=== PATIENT | male | born 1985 | race Two or more races ===

== ENCOUNTER 2020-08-26 18:27 | Emergency (ER) | payer OTHER, SELFPAY ==
--- NOTE | ~2020-08-26 | CT_ITS ---
EXAMINATION: CT HEAD WITHOUT CONTRAST (STROKE PROTOCOL) CLINICAL INFORMATION: Stroke protocol. Right-sided weakness COMPARISON: None TECHNIQUE: Contiguous axial imaging was performed from the skull base to vertex without intravenous administration of contrast. This CT examination was performed using dose optimization techniques as appropriate, variously including the following: *Automated exposure control *Adjustment of mA and/or kV according to patient size (this includes techniques or standardized protocols for targeted exams where dose is matched to indication/reason for exam; i.e. extremities or head) *Use of iterative reconstruction technique DLP: 696 mGy-cm FINDINGS: There is no intracranial hemorrhage, hematoma, or extra-axial fluid collection. The ventricles are normal in size. There is no hydrocephalus, edema, or mass effect. The palencia-white matter differentiation appears symmetric. There is no acute infarct or mass lesion. It would be difficult to rule out a small area of decreased attenuation left frontal white matter but there is preservation of the overlying palencia matter The calvarium appears intact. There is no pneumocephalus or orbital emphysema. The visualized sinuses and middle ears and mastoid air cells show no significant mucosal thickening. There are no air-fluid levels. CT/CT head for stroke IMPRESSION: Possible area of decreased attenuation left frontal white matter but there is preservation of the adjacent palencia matter. No midline shift, mass effect or hemorrhage. This critical result was discussed with Dr. Jones at 6:46 PM hours on 08/26/2020. It was ascertained that the content and urgency of the report was understood at the time of direct communication.
--- NOTE | ~2020-08-26 | CT_ITS ---
CT ANGIOGRAM NECK WITH CONTRAST CT ANGIOGRAM BRAIN WITH CONTRAST CLINICAL INFORMATION: Question large vessel occlusion. COMPARISON: Head CT performed earlier the same day. TECHNIQUE: Test bolus sequences followed by intravenous administration 70 mL of Omnipaque 350. Helical imaging was performed in the axial plane from the thoracic inlet to the skull vertex. Delayed postcontrast imaging of the head was also performed. The data was processed at the production technologist workstation for generation of MIP sequences. Angled MIPs and volume rendered reformatted images were also generated at an offline 3D workstation under concurrent supervision. Stenoses are assessed in accordance with NASCET criteria unless otherwise indicated. This CT examination was performed using dose optimization techniques as appropriate, variously including the following: *Automated exposure control *Adjustment of mA and/or kV according to patient size (this includes techniques or standardized protocols for targeted exams where dose is matched to indication/reason for exam; i.e. extremities or head) *Use of iterative reconstruction technique FINDINGS: BRAIN: [There is no intracranial hemorrhage, hydrocephalus, extra-axial surface collection, midline shift, or other herniation pattern. Sutton to white matter differentiation is diffusely maintained without evidence of an evolved acute territorial infarct. The basilar cisterns are preserved. No significant soft tissue abnormality. No acute osseous abnormality. The paranasal sinuses and the mastoid air cells are well aerated.] CERVICAL SOFT TISSUES AND LUNG APICES: No significant soft tissue findings within the neck. Imaged upper lungs are clear. Mild cervical spondylosis. CTA: The left common carotid artery arises from the brachiocephalic artery. There is eccentric adherent thrombus or plaque within the aortic arch partially extending into the left common carotid artery origin. The vertebral arteries are codominant and widely patent throughout their cervical course. Intradural vertebral arteries and basilar artery are widely patent. 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 Left internal carotid artery is patent and its origin and exhibits decreased opacification along its mid to distal course, nearly occluding at the skull base insertion and fully occluding at the level of the left cavernous ICA segment. Thrombus extends from the left ICA terminus into and occludes the left M1 MCA segment with associated severe oligemia throughout the left MCA territory and partially occludes the left A1 KRISTAL segment which reconstitutes at the level of the anterior communicating artery. CT/CT angio head neck stroke IMPRESSION: - There is progressively decreased flow along the course of the left cervical internal carotid artery which nearly occludes at the skull base insertion and completely occludes at and beyond the left cavernous ICA segment intracranially with thrombus extending from the left ICA terminus into the occluded left M1 middle cerebral artery segment with associated severe oligemia throughout the entire left MCA territory. Thrombus also extends into the proximal left A1 KRISTAL segment with the left anterior cerebral artery reconstituting by the contralateral KRISTAL via the anterior communicating artery. An underlying dissection is not excluded. - No completed infarct is identified on the noncontrast CT however there is a large ischemic penumbra throughout nearly the entire left MCA territory seen on the arterial bolus phase series from the CTA. Neuro interventional consultation is advised. - There is eccentric adherent thrombus or plaque within the aortic arch partially extending into the left common carotid artery origin.
--- NOTE | 2020-08-26 18:31 | ECG_ITS ---
Test Reason : STROKE Blood Pressure : / mmHG Vent. Rate : 042 BPM Atrial Rate : 042 BPM P-R Int : 158 ms QRS Dur : 098 ms QT Int : 482 ms P-R-T Axes : 041 -18 003 degrees QTc Int : 402 ms Marked sinus bradycardia with sinus arrhythmia Incomplete right bundle branch block Minimal voltage criteria for LVH, may be normal variant Abnormal ECG No previous ECGs available Referred By: Yordy Jones Electronically Signed By:Paco Rascon
[2020-08-26 18:34] LABS: Glucose, Whole Blood 113 mg/dL (60-115)
--- NOTE | 2020-08-26 18:47 | ED_ITS ---
HPI - Neuro Symptoms/Deficit General Chief Complaint: Stroke Stated Complaint: stroke Time Seen by Provider: 08/26/20 18:30 Source: family and EMS Mode of arrival: EMS History of Present Illness HPI Narrative: Patient with hx of percocet abuse was doing well all day today, at around 17:45 all of a sudden noticed right-sided weakness unable to ambulate and speak. Patient did have some headache 3 days ago and nausea , vomiting that time no head injury per EMS patient vomited in the ER once Time: 17:45 Timing confirmed by: family member Location: speech, right face, right arm and right leg History of same: No Severity: severe Related Data Allergies Allergy/AdvReac Type Severity Reaction Status Date / Time No Known Allergies Allergy Unverified 01/28/20 16:49 Review of Systems Review of Systems: Yes Unobtainable due to mental status PMFSH Past Medical History Medical History (Updated 08/26/20 @ 19:13 by Yordy Jones MD) Opiate abuse, continuous Social History Social History Advance Directives: No Advance Directives Information Provided: Yes Physical Exam Vital Signs: Vital Signs: Last Vital Signs Temp 98.3 F 08/26/20 19:00 Pulse 44 L 08/26/20 19:00 Resp 14 08/26/20 19:00 BP 185/77 H 08/26/20 19:00 Pulse Ox 99 08/26/20 19:00 Body Mass Index 31.1 Const: General: no acute distress, well developed and lethargic Nutritional Appearance: average body habitus and well nourished Orientation/consciousness: oriented to person and lethargic HENMT: Head: Yes No palpable skull fracture present, Yes normocephalic and Yes atraumatic Ears: hearing grossly normal bilaterally Face and sinus: Yes normal facial exam Mouth: Normal oral and palatal mucosa present Eyes: General: appearance normal, both eyes and all related structures Conjunctivae: conjunctivae normal Sclerae: sclerae normal Pupils: Equal, round and reactive pupils present Neck: Neck: Yes normal visual inspection, Yes full ROM, Yes no lymphadenopathy, Yes no meningeal signs, Yes trachea midline and No midline deformity Carotids: no bruits Resp: Effort & Inspection: normal respiratory effort Auscultation: clear to auscultation bilaterally Cardio: Jugular venous distension: no JVD Palpation: normal PMI Rate: bradycardic Rhythm: regular rhythm Heart sounds: S1 normal heart sound present and S2 normal heart sound present Peripheral pulses: Peripheral pulses 2+ throughout GI: Inspection: Yes normal to inspection Auscultation: normal bowel sounds Back/Spine/Pelvis: Thoracic/Lumbar Spine: thoracic and lumbar spine normal to inspection Skin: General skin exam: no rashes or lesions noted Neuro: General: oriented to person and no meningeal signs Cranial nerves: Yes Equal, round and reactive pupils present Motor exam (neuro): Abnormal m otor strength present (r side) and Pronator motor function present (r side 0/5) MDM - Neuro Symptoms/Deficit MDM Narrative Medical decision making narrative: Patient with acute CVAs onset 17:45 with dense hemiparesis on the right side [place] CT scan is negative CTA of the head and neck showed blockage from upper end of left ICA all the way to left MCA and KRISTAL origin no blood flow on the left side patient started on tPA at 1851 case discussed with at [facility] neurointerventional a ccept the patient for transfer Medical Records Attestation: I reviewed the patient's medical records. Lab Data Attestation: I reviewed the patient's lab results. Result diagrams: 08/26/20 18:51 08/26/20 18:51 Labs: Lab Results 08/26/20 08/26/20 08/26/20 Range/Units 18:30 18:51 18:51 WBC 16.7 H (4.8-10.8) X10*3/uL RBC 4.03 L (4.60-5.80) X10*6/uL Hgb 12.6 L (14.0-18.0) g/dl Hct 38.4 L (42-52) % MCV 95.3 (80-98) fL MCH 31.3 (27.0-33.0) pg MCHC 32.8 (31.0-36.0) g/dl RDW 14.0 (11.0-16.0) % Plt Count 419 H (160-400) X10*3/uL MPV 8.9 L (9.4-12.4) fL Immature Gran % (Auto) 0.5 H (0.0-0.4) % Neut % (Auto) 70.8 (45-73) % Lymph % (Auto) 20.3 (20-40) % [place] % (Auto) 8.1 (2-11) % Eos % (Auto) 0.1 (0-4) % Baso % (Auto) 0.2 (0-2) % Lymph # (Auto) 3.4 (1.2-4.9) X10*3/uL [place] # (Auto) 1.4 H (0.1-1.2) X10*3/uL Eos # (Auto) 0.0 (0.0-0.4) X10*3/uL Baso # (Auto) 0.0 (0.0-0.2) X10*3/uL Abs Immat Gran (auto) 0.09 H (0.00-0.03) X10*3/uL Absolute Neuts (auto) 11.9 H (2.0-8.3) X10*3/uL Absolute Nucleated RBC 0.000 (0.0-0.012) X10*3/uL Nucleated RBC % (auto) 0.0 (0.0-0.2) /100WBC PT 14.2 H (10.8-13.0) SEC Whole Blood PT (11.1-13.5) sec INR 1.2 H (0.9-1.1) Whole Blood INR (0.9-1.1) APTT 26.4 (24.1-38.0) SEC Sodium (135-145) mmol/L Potassium (3.3-5.1) mmol/L Chloride (96-108) mmol/L Carbon Dioxide (22-29) mmol/L Anion Gap (12-20) BUN (9-16) mg/dL Creatinine (0.5-1.4) mg/dL Estim Creat Clear Calc Estimated GFR POC Glucose 113 (60-115) mg/dL Random Glucose (60-115) mg/dL Calcium (8.4-10.2) mg/dL Total Creatine Kinase (38-174) U/L Troponin I High Sens (<3.5-35.0) ng/L COVID-19 (EVA) (Negative) COVID-19 Clin Com 08/26/20 08/26/20 08/26/20 Range/Units 18:51 18:51 19:09 WBC (4.8-10.8) X10*3/uL RBC (4.60-5.80) X10*6/uL Hgb (14.0-18.0) g/dl Hct (42-52) % MCV (80-98) fL MCH (27.0-33.0) pg MCHC (31.0-36.0) g/dl RDW (11.0-16.0) % Plt Count (160-400) X10*3/uL MPV (9.4-12.4) fL Immature Gran % (Auto) (0.0-0.4) % Neut % (Auto) (45-73) % Lymph % (Auto) (20-40) % [place] % (Auto) (2-11) % Eos % (Auto) (0-4) % Baso % (Auto) (0-2) % Lymph # (Auto) (1.2-4.9) X10*3/uL [place] # (Auto) (0.1-1.2) X10*3/uL Eos # (Auto) (0.0-0.4) X10*3/uL Baso # (Auto) (0.0-0.2) X10*3/uL Abs Immat Gran (auto) (0.00-0.03) X10*3/uL Absolute Neuts (auto) (2.0-8.3) X10*3/uL Absolute Nucleated RBC (0.0-0.012) X10*3/uL Nucleated RBC % (auto) (0.0-0.2) /100WBC PT (10.8-13.0) SEC Whole Blood PT 12.9 (11.1-13.5) sec INR (0.9-1.1) Whole Blood INR 1.1 (0.9-1.1) APTT (24.1-38.0) SEC Sodium 141 (135-145) mmol/L Potassium 4.0 (3.3-5.1) mmol/L Chloride 104 (96-108) mmol/L Carbon Dioxide 25 (22-29) mmol/L Anion Gap 16 (12-20) BUN 16 (9-16) mg/dL Creatinine 0.96 (0.5-1.4) mg/dL Estim Creat Clear Calc 135.1 Estimated GFR > 60 POC Glucose (60-115) mg/dL Random Glucose 116 H (60-115) mg/dL Calcium 9.0 (8.4-10.2) mg/dL Total Creatine Kinase 343 H (38-174) U/L Troponin I High Sens 5.9 (<3.5-35.0) ng/L COVID-19 (EVA) (Negative) COVID-19 Clin Com 08/26/20 Range/Units 19:12 WBC (4.8-10.8) X10*3/uL RBC (4.60-5.80) X10*6/uL Hgb (14.0-18.0) g/dl Hct (42-52) % MCV (80-98) fL MCH (27.0-33.0) pg MCHC (31.0-36.0) g/dl RDW (11.0-16.0) % Plt Count (160-400) X10*3/uL MPV (9.4-12.4) fL Immature Gran % (Auto) (0.0-0.4) % Neut % (Auto) (45-73) % Lymph % (Auto) (20-40) % [place] % (Auto) (2-11) % Eos % (Auto) (0-4) % Baso % (Auto) (0-2) % Lymph # (Auto) (1.2-4.9) X10*3/uL [place] # (Auto) (0.1-1.2) X10*3/uL Eos # (Auto) (0.0-0.4) X10*3/uL Baso # (Auto) (0.0-0.2) X10*3/uL Abs Immat Gran (auto) (0.00-0.03) X10*3/uL Absolute Neuts (auto) (2.0-8.3) X10*3/uL Absolute Nucleated RBC (0.0-0.012) X10*3/uL Nucleated RBC % (auto) (0.0-0.2) /100WBC PT (10.8-13.0) SEC Whole Blood PT (11.1-13.5) sec INR (0.9-1.1) Whole Blood INR (0.9-1.1) APTT (24.1-38.0) SEC Sodium (135-145) mmol/L Potassium (3.3-5.1) mmol/L Chloride (96-108) mmol/L Carbon Dioxide (22-29) mmol/L Anion Gap (12-20) BUN (9-16) mg/dL Creatinine (0.5-1.4) mg/dL Estim Creat Clear Calc Estimated GFR POC Glucose (60-115) mg/dL Random Glucose (60-115) mg/dL Calcium (8.4-10.2) mg/dL Total Creatine Kinase (38-174) U/L Troponin I High Sens (<3.5-35.0) ng/L COVID-19 (EVA) Negative (Negative) COVID-19 Clin Com See Note Imaging Data CT scan - head: Attestation: I personally reviewed and interpreted this imaging study as follows: Radiologist's impression: atient: Tita Guzmán#: [id number]: 1985Acct:[id number]/Sex: 35 / MADM Date: 08/26/20Loc: EDAttending Dr: Ordering Physician: Yordy Jones MD Date of Service: 08/26/20 Procedure(s): CT head for stroke Accession Number(s): [id number] cc: Yordy Jones MD~ EXAMINATION: CT HEAD WITHOUT CONTRAST (STROKE PROTOCOL) CLINICAL INFORMATION: Stroke protocol. Right-sided weakness COMPARISON: None TECHNIQUE: Contiguous axial imaging was performed from the skull base to vertex without intravenous administration of contrast. This CT examination was performed using dose optimization techniques as appropriate, variously including the following: *Automated exposure control *Adjustment of mA and/or kV according to patient size (this includes techniques or standardized protocols for targeted exams where dose is matched to indication/reason for exam; i.e. extremities or head) *Use of iterative reconstruction technique DLP: 696 mGy-cm FINDINGS: There is no intracranial hemorrhage, hematoma, or extra-axial fluid collection. The ventricles are normal in size. There is no hydrocephalus, edema, or mass effect. The sutton-white matter differentiation appears symmetric. There is no acute infarct or mass lesion. It would be difficult to rule out a small area of decreased attenuation left frontal white matter but there is preservation of the overlying sutton matter The calvarium appears intact. There is no pneumocephalus or orbital emphysema. The visualized sinuses and middle ears and mastoid air cells show no significant mucosal thickening. There are no air-fluid levels. CT/CT head for stroke IMPRESSION: Possible area of decreased attenuation left frontal white matter but there is preservation of the adjacent sutton matter. No midline shift, mass effect or hemorrhage. This critical result was discussed with Dr. Jones at 6:46 PM hours on 08/26/2020. It was ascertained that the content and urgency of the report was understood at the time of direct communication. [address] [id number] Scan ReportSigned Patient: Tita Guzmán#: [id number]: 1985Acct:[id number]/Sex: 35 / MADM Date: 08/26/20Loc: GREGG.EDAttending Dr: Ordering Physician: Yordy Jones MD Date of Service: 08/26/20 Procedure(s): CT angio head neck stroke Accession Number(s): [id number] cc: Yordy Jones MD~ CT ANGIOGRAM NECK WITH CONTRAST CT ANGIOGRAM BRAIN WITH CONTRAST CLINICAL INFORMATION: Question large vessel occlusion. COMPARISON: Head CT performed earlier the same day. TECHNIQUE: Test bolus sequences followed by intravenous administration 70 mL of Omnipaque 350. Helical imaging was performed in the axial plane from the thoracic inlet to the skull vertex. Delayed postcontrast imaging of the head was also performed. The data was processed at the generation technologist workstation for generation of MIP sequences. Angled MIPs and volume rendered reformatted images were also generated at an offline 3D workstation under concurrent supervision. Stenoses are assessed in accordance with NASCET criteria unless otherwise indicated. This CT examination was performed using dose optimization techniques as appropriate, variously including the following: *Automated exposure control *Adjustment of mA and/or kV according to patient size (this includes techniques or standardized protocols for targeted exams where dose is matched to indication/reason for exam; i.e. extremities or head) *Use of iterative reconstruction technique FINDINGS: BRAIN: [There is no intracranial hemorrhage, hydrocephalus, extra-axial surface collection, midline shift, or other herniation pattern. Sutton to white matter differentiation is diffusely maintained without evidence of an evolved acute territorial infarct. The basilar cisterns are preserved. No significant soft tissue abnormality. No acute osseous abnormality. The paranasal sinuses and the mastoid air cells are well aerated.] CERVICAL SOFT TISSUES AND LUNG APICES: No significant soft tissue findings within the neck. Imaged upper lungs are clear. Mild cervical spondylosis. CTA: The left common carotid artery arises from the brachiocephalic artery. There is eccentric adherent thrombus or plaque within the aortic arch partially extending into the left common carotid artery origin. The vertebral arteries are codominant and widely patent throughout their cervical course. Intradural vertebral arteries and basilar artery are widely patent. 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 Left internal carotid artery is patent and its origin and exhibits decreased opacification along its mid to distal course, nearly occluding at the skull base insertion and fully occluding at the level of the left cavernous ICA segment. Thrombus extends from the left ICA terminus into and occludes the left M1 MCA segment with associated severe oligemia throughout the left MCA territory and partially occludes the left A1 KRISTAL segment which reconstitutes at the level of the anterior communicating artery. CT/CT angio head neck stroke IMPRESSION: - There is progressively decreased flow along the course of the left cervical internal carotid artery which nearly occludes at the skull base insertion and completely occludes at and beyond the left cavernous ICA segment intracranially with thrombus extending from the left ICA terminus into the occluded left M1 middle cerebral artery segment with associated severe oligemia throughout the entire left MCA territory. Thrombus also extends into the proximal left A1 KRISTAL segment with the left anterior cerebral artery reconstituting by the contralateral KRISTAL via the anterior communicating artery. An underlying dissection is not excluded. - No completed infarct is identified on the noncontrast CT however there is a large ischemic penumbra throughout nearly the entire left MCA territory seen on the arterial bolus phase series from the CTA. Neuro interventional consultation is advised. - There is eccentric adherent thrombus or plaque within the aortic arch partially extending into the left common carotid artery origin. Dictated By:LEO BARRERA MDSigned By:<Electronically signed by LEO BARRERA MD in OV> ECG Data Attestation: I personally reviewed and interpreted this ECG as follows: Interpretation: Sinus bradycardia heart rate 41 beats per minute incomplete right bundle-branch block no acute ST T wave changes no acute ischemia NIH Stroke Scale Internal: Initial- Upon Arrival Level of Consciousness: Not Alert; but arousable by minor stimulation Best Gaze: Normal Visual: No visual loss Facial Palsy: Partial paralysis Motor Arm (Right): No effort against gravity Motor Arm (Left): No drift Motor Leg (Right): No effort against gravity Motor Leg (Left): No drift Limb Ataxia: Absent Sensory: Normal Best Language: Severe aphasia Dysarthia: Severe dysarthria Extinction and Inattention: No abnormality Discharge Plan Discharge Clinical Impression: Cerebrovascular accident Qualifiers: CVA mechanism: thrombosis Precerebral and cerebral artery: middle cerebral artery Laterality of affected vessel: left Qualified Code(s): I63.312 - Cerebral infarction due to thrombosis of left middle cerebral artery Patient Disposition: Xfer Acute Care Hospital Transfer Details: [facility] ED Interventions: Acute Care Transfer Worksheet (ED) Last Done: 08/26/20 19:25 Discharge Date/Time: 08/26/20 19:12
[2020-08-26] MEDS: ondansetron HCL 4 MG/2 ML VIAL IVPUSH (18:58)
[2020-08-26 19:00] VITALS: BP 185/77; PULSE 44; RESP 14; TEMP 36.8; O2SAT 99; BMI 31.1
[2020-08-26 19:00] LABS: MANUAL DIFF FLAG NO
[2020-08-26 19:01] LABS: Basophils Percent Auto 0.2 % (0-2); Eosinophils Percent Auto 0.1 % (0-4); Hematocrit 38.4 % (42-52); Hemoglobin 12.6 g/dl (14.0-18.0); Imm Gran Abs Auto 0.09 X10*3/uL (0.00-0.03); Imm Gran Pct Auto 0.5 % (0.0-0.4); Lymphocytes Absolute Auto 3.4 X10*3/uL (1.2-4.9); Lymphocytes Percent Auto 20.3 % (20-40); Mean Corpuscular HGB Conc 32.8 g/dl (31.0-36.0); Mean Corpuscular Hemoglobin 31.3 pg (27.0-33.0); Mean Corpuscular Volume 95.3 fL (80-98); Mean Platelet Volume 8.9 fL (9.4-12.4); Monocytes Absolute Auto 1.4 X10*3/uL (0.1-1.2); Monocytes Percent Auto 8.1 % (2-11); Neutrophils Absolute Auto 11.9 X10*3/uL (2.0-8.3); Neutrophils Percent Auto 70.8 % (45-73); Platelet Count 419 X10*3/uL (160-400); Red Blood Count 4.03 X10*6/uL (4.60-5.80); White Blood Count 16.7 X10*3/uL (4.8-10.8)
[2020-08-26 19:04] LABS: INTERNATIONAL NORM RATIO 1.2 (0.9-1.1); Prothrombin Time 14.2 SEC (10.8-13.0)
--- NOTE | 2020-08-26 19:05 | PC.NURSE ---
Per EMS discrepancy in pulses and BP from arm to arm. BP readings at this time Left arm:167/71 Right arm:185/77
[2020-08-26 19:07] LABS: Partial Thromboplastin Time 26.4 SEC (24.1-38.0)
[2020-08-26 19:08] LABS: Stroke Lab Use COMPLETE
[2020-08-26 19:11] LABS: Prothrombin Time Whole Bld POC 12.9 sec (11.1-13.5); ~PT, ~INR - Anti Coag Clinic 1.1 (0.9-1.1)
--- NOTE | 2020-08-26 19:26 | PC.NURSE ---
Report given to [facility] RN
[2020-08-26 19:31] LABS: Troponin-I High Sensitivity 5.9 ng/L (<3.5-35.0)
[2020-08-26 19:32] LABS: Anion Gap 16 (12-20); Blood Urea Nitrogen 16 mg/dL (9-16); Carbon Dioxide 25 mmol/L (22-29); Chloride 104 mmol/L (96-108); Creatinine Clr Calc Pharmacy 135.1; Estimated Glomerular Filt Rate > 60; Glucose Random 116 mg/dL (60-115); Sodium 141 mmol/L (135-145)
[2020-08-26 19:38] LABS: COVID-19 Test Negative (Negative)
--- NOTE | 2020-08-26 19:55 | MHC.STROKE ---
EMS PRE-NOTIFIED 1822 STROKE ALERT , ARRIVED 1826 SEEN BY MD AND DIRECT TO CT FOR CT HEAD AND CTA HEAD/NECK. NIHSS = 19. RIGHT HEMIPARESIS, LOC, APHASIA, DYSPHASIA. OBTAINED FROM MD ASSESSMENT, CTA WITH LEFT MCA OCCLUSION (SEE INTERPRETATION), CANDIDATE FOR TPA (ALTEPLASE). ALTEPLASE BOLUS GIVEN AT 1850 [id number] = 24 MINUTES. ACCEPTED IN TRANSFER BY [facility] BY NEURO-INTERVENTIONALIST DR KESSLER. DISCHARGE AT 1911 [id number] = 45 MINUTES.
== END 2020-08-26 19:12 | disposition short-term general hospital (02) ==
PROVIDERS: Emergency Provider Internal Medicine
DX: I63.312 Cerebral infarction due to thrombosis of left middle cerebral artery (principal); I69.392 Facial weakness following cerebral infarction; F11.10 Opioid abuse, uncomplicated; Z20.822 Contact with and (suspected) exposure to COVID-19
CPT/HCPCS: 36415; 37212; 70450; 70496; 70498; 80048; 82550; 82947; 84484; 85025; 85610; 85730; 87635; 93005; 96365; 96375; 99285; J2405; J2997

== ENCOUNTER 2020-10-06 08:21 | Emergency (ER) | payer OTHER, SELFPAY ==
--- NOTE | ~2020-10-06 | CT_ITS ---
EXAMINATION: CT PELVIS WITH CONTRAST CLINICAL INFORMATION: Right buttock abscess COMPARISON: None TECHNIQUE: Helical scanning was performed with submillimeter collimation through the pelvis with the use of oral contrast and during bolus intravenous injection of 100 mL of Omnipaque 350 intravenous contrast. Sagittal and coronal multiplanar 2-D reconstructions were obtained. This CT examination was performed using dose optimization techniques as appropriate, variously including the following: *Automated exposure control *Adjustment of mA and/or kV according to patient size (this includes techniques or standardized protocols for targeted exams where dose is matched to indication/reason for exam; i.e. extremities or head) *Use of iterative reconstruction technique DLP: 384 mGy-cm FINDINGS: PELVIS: There is a large right buttock fluid collection with minimal air measuring 20 cm in craniocaudad length, 1.9 cm in thickness and 13 cm wide. Similar smaller fluid collection in the left buttock subcutaneous soft tissues measures 7.4 cm wide, 13.4 cm in craniocaudad length and 1.1 cm in thickness. The urinary bladder is nondistended. There is scattered stool seen in the colon without any significant distention. The appendix is normal caliber. There is no free fluid. No abnormal inguinal or pelvic lymph nodes seen. OSSEOUS STRUCTURES: No lytic or sclerotic process seen. There is a solitary screw traversing left hip neck for an old healed fracture. CT/CT pelvis w con IMPRESSION: Bilateral superficial buttock collections greater on the right than the left. There is minimal gas collection seen in the right buttock likely abscess. There is a smaller abscess in the left buttock.
[2020-10-06 08:33] VITALS: BP 140/85; PULSE 78; O2SAT 98; BMI 28.0
--- NOTE | 2020-10-06 08:35 | ED_ITS ---
HPI - Skin/Abscess/Foreign Bdy General Chief complaint: Fever Stated complaint: DIFF AMB FROM [facility]SCESS Time Seen by Provider: 10/06/20 08:24 Source: patient, family and EMS Mode of arrival: EMS Limitations: no limitations History of Present Illness HPI narrative: 35 yo male with past medical history of CVA with right sided weakness/aphasia on eliquis here with complaints of acute on chronic abscess to buttocks. Worsening in the last week now with subjective fevers/chills Patient is a he was admitted in August for 2 weeks at [facility] for his stroke and then spent 2 weeks of a [facility]. While he was there he was seen by wound care and had several abscesses drained with packing present. Since being home his girlfriend has been taking care of his wounds. He does have a home care nurse who is coming in Saturday to the home MD complaint: abscess/boil Related Data Previous Rx's Medication Instructions Recorded chlorhexidine gluconate [Scrub See Rx Instructions .ROUTE 10/06/20 Chlorhexidine Gluconate] .COMPLEX #237 ml doxycycline monohydrate 100 mg PO BID #20 cap 10/06/20 Allergies Allergy/AdvReac Type Severity Reaction Status Date / Time No Known Allergies Allergy Unverified 01/28/20 16:49 Review of Systems Review of Systems: Yes all other systems are reviewed and are negative Constitutional: Constitutional: Reports no additional constitutional complaints, Denies body ache(s), Denies chills, Denies fever(s), Denies headache(s) and Denies weakness Eyes: Eyes: Reports no additional eye complaints and Denies change in vision ENT: Reports system reviewed and no additional complaints, except as d ocumented, Denies dizziness, Denies headache(s), Denies nasal congestion, Denies nasal discharge and Denies neck pain Cardiovascular: Cardiovascular: Reports no additional cardiovascular complaints, Denies chest pain, Denies leg edema and Denies dyspnea Respiratory: Respiratory: Reports no additional respiratory complaints, Denies cough and Denies dyspnea Gastrointestinal: Gastrointestinal: Reports no additional gastrointestinal complaints, Denies abdominal pain, Denies diarrhea, Denies nausea and Denies vomiting Genitourinary: Genitourinary: Denies urinary incontinence Musculoskeletal: Musculoskeletal: Reports no additional musculoskeletal complaints, Denies back pain, Denies arthralgias, Denies joint swelling, Denies neck pain, Denies numbness and Denies tingling Integumentary/Breasts: Skin/Breast: Reports system reviewed and no additional complaints, except as docu, Reports furuncle, Reports swelling, Reports erythema and Denies rash Neurologic: Reports system reviewed and no additional complaints, except as documented, Denies Abnormal speech present, Denies dizziness, Denies headache(s), Denies numbness, Denies tingling and Denies weakness [facility] Past Medical History Attestation statement: The following information was validated with the patient. Source: old records reviewed Medical History (Updated 10/06/20 @ 13:17 by Maylin Osman NP) CVA (cerebral vascular accident) Opiate abuse, continuous Physical Exam Vital Signs: Vital Signs: Last Vital Signs Pulse 69 10/06/20 10:37 Resp 16 10/06/20 12:51 BP 117/78 10/06/20 11:54 Pulse Ox 99 10/06/20 10:37 Body Mass Index 28.0 Const: General: cooperative, healthy appearing, comfortable and no acute distress Orientation/consciousness: patient oriented x3 Limitations: no limitations HENMT: Head: Yes normal to inspection Ears: hearing grossly normal bilaterally General nose exam: Normal external nose present Face and sinus: Yes normal facial exam Mouth: Normal oral and palatal mucosa present Throat: Yes posterior oropharynx normal Eyes: General: appearance normal, both eyes and all related structures Pupils: Equal, round and reactive pupils present Neck: Neck: Yes normal visual inspection Chest: Chest palpation & inspection: normal inspection of the chest Resp: Effort & Inspection: normal respiratory effort Auscultation: clear to auscultation bilaterally Cardio: Rate: regular rate Rhythm: regular rhythm Peripheral pulses: Peripheral pulses 2+ throughout GI: Inspection: Yes normal to inspection Palpation (GI): Soft to palpation and nontender Auscultation: normal bowel sounds Back/Spine/Pelvis: Thoracic/Lumbar Spine: thoracic and lumbar spine normal to inspection Skin: Other: To the right buttocks there is a large area of induration, erythema, tenderness with a central area of fluctuance. There is a smaller abscess just inferior to this with packing present To the left buttocks there is a small abscess which is draining with no erythema, tenderness or swelling General skin exam: no rashes or lesions noted Neuro: General: patient oriented x3, no focal motor deficits and normal sensation to monofilament Cranial nerves: Yes Equal, round and reactive pupils present Cognition (Neuro): normal cognition Speech: No Abnormal speech present Gait exam (Neuro): Normal gait present Motor exam (neuro): 5/5 motor strength present throughout Extrem: General: Yes normal to inspection Course Course Course Narrative: 35 yo male with a past medical history of CVA right sided weakness/aphasia on eliquis her with acute on chronic buttocks wounds now with subjective fevers/chills. On exam the patient has a larger abscess over the right buttocks with indurat ion, cellulitis extending from the site with a central area of fluctuance. Will need labs including blood cultures, lactic acid. Will check CT to rule out drainable abscess. At this time infection suspected, antibiotics ordered. 1140-CT shows large right buttocks fluid collection measuring 20 centimetres. D/t extent discussed with Dr Casillas who will come see patient. 1330-see I and D note from general surgery. Will have patient follow-up in office. He has a mild leukocytosis which is actually improved from previous. No shift. Lactic negative. Will discharge home with course of antibiotics. I did offer additional resources with case management but the patient and his girlfriend declined. They tell me they have occurred nurse who is coming into the home tomorrow and they feel comfortable with him going home. Reviewed worrisome signs and symptoms with the family and when to return to the emergency department. Comfortable discharge home. MDM - Skin/Abscess/Foreign Bdy Medical Records Attestation: I reviewed the patient's medical records. Lab Data Attestation: I reviewed the patient's lab results. Result diagrams: 10/06/20 08:49 10/06/20 08:49 Labs: Lab Results 10/06/20 10/06/20 10/06/20 Range/Units 08:49 08:49 08:49 WBC 12.8 H (4.8-10.8) X10*3/uL RBC 3.80 L (4.60-5.80) X10*6/uL Hgb 11.8 L (14.0-18.0) g/dl Hct 36.4 L (42-52) % MCV 95.8 (80-98) fL MCH 31.1 (27.0-33.0) pg MCHC 32.4 (31.0-36.0) g/dl RDW 13.2 (11.0-16.0) % Plt Count 449 H (160-400) X10*3/uL MPV 8.7 L (9.4-12.4) fL Immature Gran % (Auto) 0.4 (0.0-0.4) % Neut % (Auto) 79.8 H (45-73) % Lymph % (Auto) 13.3 L (20-40) % Hood % (Auto) 5.5 (2-11) % Eos % (Auto) 0.8 (0-4) % Baso % (Auto) 0.2 (0-2) % Lymph # (Auto) 1.7 (1.2-4.9) X10*3/uL Hood # (Auto) 0.7 (0.1-1.2) X10*3/uL Eos # (Auto) 0.1 (0.0-0.4) X10*3/uL Baso # (Auto) 0.0 (0.0-0.2) X10*3/uL Abs Immat Gran (auto) 0.05 H (0.00-0.03) X10*3/uL Absolute Neuts (auto) 10.3 H (2.0-8.3) X10*3/uL Absolute Nucleated RBC 0.000 (0.0-0.012) X10*3/uL Nucleated RBC % (auto) 0.0 (0.0-0.2) /100WBC PT 14.6 H (10.8-13.0) SEC INR 1.2 H (0.9-1.1) Sodium 138 (135-145) mmol/L Potassium 4.2 (3.3-5.1) mmol/L Chloride 101 (96-108) mmol/L Carbon Dioxide 28 (22-29) mmol/L Anion Gap 13 (12-20) BUN 12 (9-16) mg/dL Creatinine 0.78 (0.5-1.4) mg/dL Estim Creat Clear Calc 177.0 Estimated GFR > 60 Random Glucose 130 H (60-115) mg/dL Lactic Acid (0.5-2.0) mmol/L Calcium 9.0 (8.4-10.2) mg/dL Magnesium 2.0 (1.6-2.6) mg/dL Total Bilirubin 0.3 (0.0-1.0) mg/dL Direct Bilirubin < 0.2 (0.0-0.5) mg/dL AST 39 H (5-37) U/L ALT 43 H (0-40) U/L Alkaline Phosphatase 114 (39-117) U/L Total Protein 7.1 (6.5-8.0) g/dL Albumin 3.3 L (3.5-5.0) g/dL 10/06/20 Range/Units 08:49 WBC (4.8-10.8) X10*3/uL RBC (4.60-5.80) X10*6/uL Hgb (14.0-18.0) g/dl Hct (42-52) % MCV (80-98) fL MCH (27.0-33.0) pg MCHC (31.0-36.0) g/dl RDW (11.0-16.0) % Plt Count (160-400) X10*3/uL MPV (9.4-12.4) fL Immature Gran % (Auto) (0.0-0.4) % Neut % (Auto) (45-73) % Lymph % (Auto) (20-40) % Hood % (Auto) (2-11) % Eos % (Auto) (0-4) % Baso % (Auto) (0-2) % Lymph # (Auto) (1.2-4.9) X10*3/uL Hood # (Auto) (0.1-1.2) X10*3/uL Eos # (Auto) (0.0-0.4) X10*3/uL Baso # (Auto) (0.0-0.2) X10*3/uL Abs Immat Gran (auto) (0.00-0.03) X10*3/uL Absolute Neuts (auto) (2.0-8.3) X10*3/uL Absolute Nucleated RBC (0.0-0.012) X10*3/uL Nucleated RBC % (auto) (0.0-0.2) /100WBC PT (10.8-13.0) SEC INR (0.9-1.1) Sodium (135-145) mmol/L Potassium (3.3-5.1) mmol/L Chloride (96-108) mmol/L Carbon Dioxide (22-29) mmol/L Anion Gap (12-20) BUN (9-16) mg/dL Creatinine (0.5-1.4) mg/dL Estim Creat Clear Calc Estimated GFR Random Glucose (60-115) mg/dL Lactic Acid 1.8 (0.5-2.0) mmol/L Calcium (8.4-10.2) mg/dL Magnesium (1.6-2.6) mg/dL Total Bilirubin (0.0-1.0) mg/dL Direct Bilirubin (0.0-0.5) mg/dL AST (5-37) U/L ALT (0-40) U/L Alkaline Phosphatase (39-117) U/L Total Protein (6.5-8.0) g/dL Albumin (3.5-5.0) g/dL Imaging Data CT scan - pelvis: Attestation: I personally reviewed and interpreted this imaging study as follows: Radiologist's impression: FINDINGS: PELVIS: There is a large right buttock fluid collection with minimal air measuring 20 cm in craniocaudad length, 1.9 cm in thickness and 13 cm wide. Similar smaller fluid collection in the left buttock subcutaneous soft tissues measures 7.4 cm wide, 13.4 cm in craniocaudad length and 1.1 cm in thickness. The urinary bladder is nondistended. There is scattered stool seen in the colon without any significant distention. The appendix is normal caliber. There is no free fluid. No abnormal inguinal or pelvic lymph nodes seen. OSSEOUS STRUCTURES: No lytic or sclerotic process seen. There is a solitary screw traversing left hip neck for an old healed fracture. CT/CT pelvis w con IMPRESSION: Bilateral superficial buttock collections greater on the right than the left. There is minimal gas collection seen in the right buttock likely abscess. There is a smaller abscess in the left buttock. Discharge Plan Discharge Clinical Impression: Abscess and cellulitis of gluteal region Patient Disposition: Home, Self-Care Instructions: Abscess (ED) Additional Instructions: Call Dr. Casillas office today to make an appointment for your packing removal and follow-up Prescriptions: New chlorhexidine gluconate [Scrub Chlorhexidine Gluconate] 4 % liquid See Rx Instructions .ROUTE .COMPLEX Qty: 237 RF: 3 doxycycline monohydrate 100 mg capsule 100 mg PO BID Qty: 20 RF: 0 Referrals: Shayan Casillas MD [Physician] - 2 days Physician,Unknown [Primary Care Provider] - 2 days Interventions: ED Discharge Assessment Last Done: 10/06/20 13:31 Discharge Date/Time: 10/06/20 13:31
[2020-10-06 08:40] VITALS: BP 131/69
[2020-10-06 08:56] LABS: MANUAL DIFF FLAG NO
[2020-10-06 08:57] LABS: Basophils Percent Auto 0.2 % (0-2); Eosinophils Absolute Auto 0.1 X10*3/uL (0.0-0.4); Eosinophils Percent Auto 0.8 % (0-4); Hematocrit 36.4 % (42-52); Hemoglobin 11.8 g/dl (14.0-18.0); Imm Gran Abs Auto 0.05 X10*3/uL (0.00-0.03); Imm Gran Pct Auto 0.4 % (0.0-0.4); Lymphocytes Absolute Auto 1.7 X10*3/uL (1.2-4.9); Lymphocytes Percent Auto 13.3 % (20-40); Mean Corpuscular HGB Conc 32.4 g/dl (31.0-36.0); Mean Corpuscular Hemoglobin 31.1 pg (27.0-33.0); Mean Corpuscular Volume 95.8 fL (80-98); Mean Platelet Volume 8.7 fL (9.4-12.4); Monocytes Absolute Auto 0.7 X10*3/uL (0.1-1.2); Monocytes Percent Auto 5.5 % (2-11); Neutrophils Absolute Auto 10.3 X10*3/uL (2.0-8.3); Neutrophils Percent Auto 79.8 % (45-73); Platelet Count 449 X10*3/uL (160-400); Red Cell Distribution Width 13.2 % (11.0-16.0); White Blood Count 12.8 X10*3/uL (4.8-10.8)
[2020-10-06] MEDS: ondansetron HCL 4 MG/2 ML VIAL IVPUSH (08:59)
[2020-10-06] MEDS: Morphine Sulfate 4 MG/ML CARTRIDGE IVPUSH ×2 (08:59→11:53)
[2020-10-06] MEDS: 0.9 % Sodium Chloride 1,000 ML 999 ML IV (09:01)
[2020-10-06 09:02] LABS: INTERNATIONAL NORM RATIO 1.2 (0.9-1.1); Prothrombin Time 14.6 SEC (10.8-13.0)
[2020-10-06 09:30] LABS: Lactic Acid 1.8 mmol/L (0.5-2.0)
[2020-10-06] MEDS: Piperacillin Sodium/Tazobactam 3.375 GM in 0.9 % Sodium Chloride 50 ML IV (09:39)
[2020-10-06 09:46] LABS: Alanine Aminotransferase 43 U/L (0-40); Albumin Level 3.3 g/dL (3.5-5.0); Alkaline Phosphatase 114 U/L (39-117); Anion Gap 13 (12-20); Aspartate Amino Transferase 39 U/L (5-37); Blood Urea Nitrogen 12 mg/dL (9-16); Carbon Dioxide 28 mmol/L (22-29); Chloride 101 mmol/L (96-108); Estimated Glomerular Filt Rate > 60; Glucose Random 130 mg/dL (60-115); Potassium 4.2 mmol/L (3.3-5.1); Sodium 138 mmol/L (135-145); Total Protein 7.1 g/dL (6.5-8.0)
[2020-10-06 09:56] LABS: Bilirubin Direct < 0.2 mg/dL (0.0-0.5); Bilirubin Total 0.3 mg/dL (0.0-1.0)
[2020-10-06] MEDS: iohexoL 350 MG/ML 100 ML INFUS..BTL IV (10:23)
[2020-10-06 10:37] VITALS: BP 127/72; PULSE 69; O2SAT 99
[2020-10-06 11:54] VITALS: BP 117/78
[2020-10-06 12:09] VITALS: RESP 16
[2020-10-06 12:51] VITALS: RESP 16
[2020-10-06] MEDS: Lidocaine HCl 2 % MPF 5 ML VIAL SUBCUT ×2 (12:52)
--- NOTE | 2020-10-06 12:55 | PM.CNGS ---
History of Present Illness Consult details Consult date: 10/06/20 Requesting physician: Maylin Osman Narrative: 35-year-old male patient with previous history of CVA, currently on Eliquis presenting with a chronic draining wound of the buttock. He has undergone numerous procedures in the buttock for incision and drainage. He was previously treated with Humira but this was stopped after his CVA. He currently presents with a large red area right posterior buttock which is extremely painful and making it difficult with transfers. Subsequent CT of the pelvis confirms a large abscess with the skin measuring approximately 20 cm. Surgical consultation was requested for possible incision and drainage. Review of Systems Constitutional: Constitutional: Denies chills, Denies night sweats and Reports weakness Respiratory: Respiratory: Reports no additional respiratory complaints Gastrointestinal: Gastrointestinal: Reports no additional gastrointestinal complaints Musculoskeletal: Musculoskeletal: Reports muscle weakness Integumentary/Breasts: Skin/Breast: Reports as per HPI Neurologic: Reports as per HPI and Reports weakness PMFSH Past Medical History Medical History (Updated 10/06/20 @ 12:54 by Shayan Casillas MD) CVA (cerebral vascular accident) Opiate abuse, continuous Social History Social History Advance Directives: Yes Advance Directives Information Provided: Yes Advance Directives on File: No Meds Allergies Allergy/AdvReac Type Severity Reaction Status Date / Time No Known Allergies Allergy Unverified 01/28/20 16:49 Physical Exam Vital Signs: Vital Signs: Last Vital Signs Pulse 69 10/06/20 10:37 Resp 16 10/06/20 12:51 BP 117/78 10/06/20 11:54 Pulse Ox 99 10/06/20 10:37 Body Mass Index 28.0 Const: General: no acute distress, alert and awake Resp: Effort & Inspection: normal respiratory effort, no audible wheezes and no cough GI: Inspection: Yes normal to inspection Back/Spine/Pelvis: Back/spine/pelvis image: 1. Area of fluctuance in the right buttock, tender to palpation Skin: Other: Abscess as noted above in the right buttock, tender to palpation Results Labs Result diagrams: 10/06/20 08:49 10/06/20 08:49 Labs: Abnormal lab results 10/06/20 10/06/20 10/06/20 Range/Units 08:49 08:49 08:49 WBC 12.8 H (4.8-10.8) X10*3/uL RBC 3.80 L (4.60-5.80) X10*6/uL Hgb 11.8 L (14.0-18.0) g/dl Hct 36.4 L (42-52) % Plt Count 449 H (160-400) X10*3/uL MPV 8.7 L (9.4-12.4) fL Neut % (Auto) 79.8 H (45-73) % Lymph % (Auto) 13.3 L (20-40) % Abs Immat Gran (auto) 0.05 H (0.00-0.03) X10*3/uL Absolute Neuts (auto) 10.3 H (2.0-8.3) X10*3/uL PT 14.6 H (10.8-13.0) SEC INR 1.2 H (0.9-1.1) Random Glucose 130 H (60-115) mg/dL AST 39 H (5-37) U/L ALT 43 H (0-40) U/L Albumin 3.3 L (3.5-5.0) g/dL Short CBC 10/06/20 Range/Units 08:49 WBC 12.8 H (4.8-10.8) X10*3/uL Hgb 11.8 L (14.0-18.0) g/dl Hct 36.4 L (42-52) % Plt Count 449 H (160-400) X10*3/uL BMP 10/06/20 08:49 Sodium 138 Potassium 4.2 Chloride 101 Carbon Dioxide 28 BUN 12 Creatinine 0.78 Calcium 9.0 Liver Function 10/06/20 Range/Units 08:49 Total Bilirubin 0.3 (0.0-1.0) mg/dL Direct Bilirubin < 0.2 (0.0-0.5) mg/dL AST 39 H (5-37) U/L ALT 43 H (0-40) U/L Alkaline Phosphatase 114 (39-117) U/L Albumin 3.3 L (3.5-5.0) g/dL All other labs normal. Assessment and Plan (1) Abscess and cellulitis of gluteal region: Status: Acute 35-year-old male patient presenting with an abscess of the right buttock and a previous history of chronic infections of the skin especially in the buttocks. Patient is currently being followed by the object oriented developer for this condition. Evaluation today reveals a large abscess of the right buttock which was confirmed on CT. Patient will require incision and drainage of this abscess. After discussion of the procedure, risks, and alternatives, he consents to incision and drainage. This was performed at the bedside today and a large abscess drained. The patient tolerated the procedure very well. Wounds were packed with 1/2 inch iodoform gauze. Sterile dressings were then applied. The packing should be removed in approximately 48 to 72 hours. He may shower as usual. He should follow up in the office in approximately 1 week for wound check. Procedures Date of Service Date of Service: 10/06/20 Abscess I/D Consent for Procedure: Elective - informed consent obtained Additional comments: Procedure: Incision and drainage of abscess right buttock Indication: 35-year-old male presenting with painful fluctuant area in the right buttock which on CT scan measures approximately 20 cm. Findings: Large abscess collection of the right buttock with a combination of bloody in purulence fluid. Procedure details: Patient was placed in a left lateral decubitus position. After assuring informed consent and confirming the site of the procedure skin was prepped with Betadine and draped in a sterile fashion. Local anesthesia consisting of 1% lidocaine was infiltrated over the abscess. Incision was then made with a scalpel (11 blade) and carried down to the abscess cavity. A large purulence collection was drained. This was then irrigated with saline solution. Wounds were then packed with 1/2 inch iodoform gauze. Dry sterile dressings were then applied. The patient tolerated the procedure well. He will be discharged to home on oral antibiotics. I also recommended Hibiclens scrub to help reduce the bacterial counts in the skin. This could be used 3 times weekly.
== END 2020-10-06 13:31 | disposition home or self-care (01) ==
PROVIDERS: Nurse Practitioner Family; Emergency Provider Emergency Medicine
DX: L02.31 Cutaneous abscess of buttock (principal); L03.317 Cellulitis of buttock; F11.10 Opioid abuse, uncomplicated; Z86.73 Personal history of transient ischemic attack (TIA), and cerebral infarction without residual deficits; Z79.01 Long term (current) use of anticoagulants; Z79.899 Other long term (current) drug therapy
CPT/HCPCS: 10061; 36415; 72193; 80048; 80076; 83605; 83735; 85025; 85610; 87040; 96361; 96365; 96372; 96375; 99284; J2270; J2405; J2543; Q9967

== ENCOUNTER 2021-01-03 09:51 | Emergency (ER) | payer OTHER, SELFPAY ==
[2021-01-03 10:01] VITALS: BP 120/81; PULSE 60; O2SAT 96
[2021-01-03 10:03] VITALS: BP 138/75; PULSE 50; RESP 18; TEMP 37; O2SAT 99; BMI 27.1
[2021-01-03] MEDS: 0.9 % Sodium Chloride 1,000 ML 999 ML IVCONT (10:25)
[2021-01-03 10:34] LABS: MANUAL DIFF FLAG NO
[2021-01-03 10:41] LABS: INTERNATIONAL NORM RATIO 1.4 (0.9-1.1)
[2021-01-03 10:52] LABS: Basophils Percent Auto 0.2 % (0-2); Eosinophils Percent Auto 0.1 % (0-4); Hematocrit 38.4 % (42-52); Hemoglobin 12.9 g/dl (14.0-18.0); Imm Gran Abs Auto 0.01 X10*3/uL (0.00-0.03); Imm Gran Pct Auto 0.1 % (0.0-0.4); Lymphocytes Absolute Auto 1.7 X10*3/uL (1.2-4.9); Lymphocytes Percent Auto 20.8 % (20-40); Mean Corpuscular HGB Conc 33.6 g/dl (31.0-36.0); Mean Corpuscular Hemoglobin 30.5 pg (27.0-33.0); Mean Corpuscular Volume 90.8 fL (80-98); Mean Platelet Volume 9.2 fL (9.4-12.4); Monocytes Absolute Auto 0.6 X10*3/uL (0.1-1.2); Monocytes Percent Auto 7.1 % (2-11); Neutrophils Absolute Auto 5.8 X10*3/uL (2.0-8.3); Neutrophils Percent Auto 71.7 % (45-73); Platelet Count 468 X10*3/uL (160-400); Red Blood Count 4.23 X10*6/uL (4.60-5.80); Red Cell Distribution Width 13.4 % (11.0-16.0)
[2021-01-03] MEDS: ondansetron HCL 4 MG/2 ML VIAL IVPUSH (10:54)
[2021-01-03 10:58] LABS: Ethanol < 10 mg/dL
[2021-01-03 11:03] LABS: Alanine Aminotransferase 10 U/L (0-40); Albumin Level 4.1 g/dL (3.5-5.0); Alkaline Phosphatase 113 U/L (39-117); Anion Gap 16 (12-20); Aspartate Amino Transferase 11 U/L (5-37); Bilirubin Total 0.4 mg/dL (0.0-1.0); Blood Urea Nitrogen 11 mg/dL (9-16); Calcium 9.8 mg/dL (8.4-10.2); Carbon Dioxide 24 mmol/L (22-29); Chloride 106 mmol/L (96-108); Creatinine Clr Calc Pharmacy 134.4; Estimated Glomerular Filt Rate > 60; Glucose Random 120 mg/dL (60-115); Lipase 27 U/L (8-78); Magnesium 2.2 mg/dL (1.6-2.6); Potassium 4.1 mmol/L (3.3-5.1); Sodium 142 mmol/L (135-145); Total Protein 7.6 g/dL (6.5-8.0)
--- NOTE | 2021-01-03 11:20 | ED.NAVMDI ---
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 His girlfriend over the phone reported that the last time he took Percocet was approximately 5 days ago patient believes it might be related to this. She reports that he has been taking the doxycycline with food. They deny any fevers, chills, dizziness, chest pain, shortness of breath, dyspnea on exertion, orthopnea, palpitations, abdominal pain, diarrhea constipation, black or bloody stools, any new focal weakness or general weakness, recent travel or sick contacts, dysuria or hematuria or any other symptoms complaints or concerns at this time. MD elicited complaint: nausea and vomiting Onset (ago): day(s) (Two days) Description of vomiting: watery and bilious Associated nausea: Yes Associated abdominal pain: No Location of pain: none Pain consistency: intermittent Severity: moderate Exacerbating factors: none Relieving factors: none Associated symptoms: denies other symptoms Related Data Previous Rx's Medication Instructions Recorded chlorhexidine gluconate 4 % See Rx Instructions .ROUTE 10/06/20 topical liquid (Scrub .COMPLEX #237 ml Chlorhexidine Gluconate) doxycycline monohydrate 100 mg 100 mg PO BID #20 cap 10/06/20 capsule Allergies Allergy/AdvReac Type Severity Reaction Status Date / Time No Known Allergies Allergy Unverified 01/28/20 16:49 Review of Systems Review of Systems: Constitutional : No Fever, No Chills, No Night Sweats, No Fatigue, No Malaise Cardiovascular : No Chest Pain, No SOB Respiratory : No Cough, No Sputum, No Wheezing, No Dyspnea Gastrointestinal : + Nausea, No Vomiting, No Diarrhea, No abdominal Pain, No Hematochezia, No Melena Genitourinary : No irregular bleeding, No Dysuria, No Urinary Frequency, No Hematuria,No Urinary Incontinence, No Urgency, No Flank Pain Musculoskeletal : No joint pain, No Myalgias, No Joint Swelling Skin : No Skin Lesions, No rash Neuro : No Weakness, No Numbness, No Paresthesias, No Loss of Consciousness, No Dizziness, No Headache Heme/Lymph: No Lymphadenopathy Endocrine : No Temperature Intolerance Yes all other systems are reviewed and are negative Gastrointestinal: Gastrointestinal: Reports nausea PMFSH Past Medical History Attestation statement: The following information was validated with the patient. Medical History CVA (cerebral vascular accident) Opiate abuse, continuous Social History Social History Advance Directives: No Advance Directives Information Provided: No Physical Exam Vital Signs: Vital Signs: Last Vital Signs Temp 98.6 F 01/03/21 10:03 Pulse 50 01/03/21 10:03 Resp 18 01/03/21 10:03 BP 138/75 01/03/21 10:03 Pulse Ox 99 01/03/21 10:03 Body Mass Index 27.1 vital signs have been reviewed as normal and appeared to be correct. Blood pressure normal. Heart rate normal. Respiration rate normal. Temperature normal. Oxygen saturation normal. Appearance: Alert. Oriented X3. No acute distress. Head: Normal external exam. Normocephalic. Eyes: PERRLA. EOMI. Conjunctiva and sclera normal. Eyelids normal. ENT: Pharynx normal. Uvula midline. Moist mucous membranes. No trismus noted. No drooling noted. No muffled voice noted. Neck: Normal inspection. Neck supple. FROM. No adenopathy. No meningeal signs. CVS: Normal heart rate and rhythm. Heart sound normal. No murmurs noted. Pulses normal throughout. Respiratory: No respiratory distress. Painless inspiration. Breath sounds normal. No wheezes/rales/rhonchi noted. Chest nontender. No accessory muscle usage noted or decreased air movement noted. Abdomen: Soft and nontender. Nondistended. No guarding. No rigidity. Bowel sounds normal in all 4 quadrants. No distention noted. No organomegaly noted. No visible injury noted. No rebound tenderness. Negative Rovsing sign. Negative obturator's sign. Negative psoas sign. Negative Reese sign. Back: No CVA tenderness. Full range of motion noted. Skin: Patient is noted to have draining wounds to the buttocks no surrounding erythema/streaking or fluctuance noted. The rest of the Skin warm and dry. Normal skin color. Normal skin turgor. No additional rashes/lesions/lacerations noted. Extremities: Extremities exhibit normal range of motion. Extremities nontender. Neuro: Oriented X 3. Patient noted to have right upper and lower extremity residual weakness from his CVA and slurred speech. Otherwise no new focal deficits noted. 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 His girlfriend over the phone reported that the last time he took Percocet was approximately 5 days ago patient believes it might be related to this. She reports that he has been taking the doxycycline with food. On exam patient is noted to have right residual upper and lower extremity weakness and slurred speech that him and his girlfriend reports is chronic and no new focal deficits. Alert and oriented x3. Lungs clear to auscultation. CV RRR. Abdomen is soft and nontender. On his buttocks patient noted to have multiple wounds that are draining. No streaking/fluctuance or surrounding erythema. Plan: Labs, UA, COVID/RSV/flu swab. Provide a L of IV fluids and 4 mg of Zofran and re-evaluate. Reevaluation(s) Reevaluation #1: - Sign out to Dr. Fields pending above Time: 11:24 [facility] - Nausea/Vomiting/Diarrhea Medical Records Attestation: I reviewed the patient's medical records. Lab Data Attestation: I reviewed the patient's lab results. Result diagrams: 01/03/21 10:22 01/03/21 10:22 Labs: Lab Results 01/03/21 01/03/21 01/03/21 Range/Units 10:22 10:22 10:22 WBC 8.0 (4.8-10.8) X10*3/uL RBC 4.23 L (4.60-5.80) X10*6/uL Hgb 12.9 L (14.0-18.0) g/dl Hct 38.4 L (42-52) % MCV 90.8 (80-98) fL MCH 30.5 (27.0-33.0) pg MCHC 33.6 (31.0-36.0) g/dl RDW 13.4 (11.0-16.0) % Plt Count 468 H (160-400) X10*3/uL MPV 9.2 L (9.4-12.4) fL Immature Gran % (Auto) 0.1 (0.0-0.4) % Neut % (Auto) 71.7 (45-73) % Lymph % (Auto) 20.8 (20-40) % Ashley % (Auto) 7.1 (2-11) % Eos % (Auto) 0.1 (0-4) % Baso % (Auto) 0.2 (0-2) % Lymph # (Auto) 1.7 (1.2-4.9) X10*3/uL Ashley # (Auto) 0.6 (0.1-1.2) X10*3/uL Eos # (Auto) 0.0 (0.0-0.4) X10*3/uL Baso # (Auto) 0.0 (0.0-0.2) X10*3/uL Abs Immat Gran (auto) 0.01 (0.00-0.03) X10*3/uL Absolute Neuts (auto) 5.8 (2.0-8.3) X10*3/uL Absolute Nucleated RBC 0.000 (0.0-0.012) X10*3/uL Nucleated RBC % (auto) 0.0 (0.0-0.2) /100WBC PT 16.0 H (9.9-13.0) SEC INR 1.4 H (0.9-1.1) Sodium 142 (135-145) mmol/L Potassium 4.1 (3.3-5.1) mmol/L Chloride 106 (96-108) mmol/L Carbon Dioxide 24 (22-29) mmol/L Anion Gap 16 (12-20) BUN 11 (9-16) mg/dL Creatinine 0.85 (0.5-1.4) mg/dL Estim Creat Clear Calc 134.4 Estimated GFR > 60 Random Glucose 120 H (60-115) mg/dL Calcium 9.8 D (8.4-10.2) mg/dL Magnesium 2.2 (1.6-2.6) mg/dL Total Bilirubin 0.4 (0.0-1.0) mg/dL AST 11 D (5-37) U/L ALT 10 (0-40) U/L Alkaline Phosphatase 113 (39-117) U/L Total Protein 7.6 (6.5-8.0) g/dL Albumin 4.1 D (3.5-5.0) g/dL Lipase 27 (8-78) U/L Ethyl Alcohol mg/dL 01/03/21 Range/Units 10:22 WBC (4.8-10.8) X10*3/uL RBC (4.60-5.80) X10*6/uL Hgb (14.0-18.0) g/dl Hct (42-52) % MCV (80-98) fL MCH (27.0-33.0) pg MCHC (31.0-36.0) g/dl RDW (11.0-16.0) % Plt Count (160-400) X10*3/uL MPV (9.4-12.4) fL Immature Gran % (Auto) (0.0-0.4) % Neut % (Auto) (45-73) % Lymph % (Auto) (20-40) % Ashley % (Auto) (2-11) % Eos % (Auto) (0-4) % Baso % (Auto) (0-2) % Lymph # (Auto) (1.2-4.9) X10*3/uL Ashley # (Auto) (0.1-1.2) X10*3/uL Eos # (Auto) (0.0-0.4) X10*3/uL Baso # (Auto) (0.0-0.2) X10*3/uL Abs Immat Gran (auto) (0.00-0.03) X10*3/uL Absolute Neuts (auto) (2.0-8.3) X10*3/uL Absolute Nucleated RBC (0.0-0.012) X10*3/uL Nucleated RBC % (auto) (0.0-0.2) /100WBC PT (9.9-13.0) SEC INR (0.9-1.1) Sodium (135-145) mmol/L Potassium (3.3-5.1) mmol/L Chloride (96-108) mmol/L Carbon Dioxide (22-29) mmol/L Anion Gap (12-20) BUN (9-16) mg/dL Creatinine (0.5-1.4) mg/dL Estim Creat Clear Calc Estimated GFR Random Glucose (60-115) mg/dL Calcium (8.4-10.2) mg/dL Magnesium (1.6-2.6) mg/dL Total Bilirubin (0.0-1.0) mg/dL AST (5-37) U/L ALT (0-40) U/L Alkaline Phosphatase (39-117) U/L Total Protein (6.5-8.0) g/dL Albumin (3.5-5.0) g/dL Lipase (8-78) U/L Ethyl Alcohol < 10 mg/dL Discharge Plan Discharge Clinical Impression: Drug-induced nausea and vomiting Prescriptions: No Action chlorhexidine gluconate [Scrub Chlorhexidine Gluconate] 4 % liquid See Rx Instructions .ROUTE .COMPLEX Qty: 237 RF: 3 doxycycline monohydrate 100 mg capsule 100 mg PO BID Qty: 20 RF: 0
[2021-01-03 12:01] LABS: Influenza A PCR NEGATIVE (Negative); Influenza B PCR NEGATIVE (Negative); Resp Syncy Virus RNA Qual PCR NEGATIVE (Negative); SARS COV2 PCR INHOUSE NEGATIVE (Negative)
[2021-01-03 12:53] LABS: Glucose Urine UA NEG (NEG); Leukocyte Esterase Urine NEG (NEG); Nitrite Urine NEG (NEG); PH 8.5 (5.0-8.0); Specific Gravity - Urine 1.015 (1.005-1.025); Urine Blood NEG (NEG); Urine Ketones 15 MG/DL (NEG); Urine Protein TRACE MG/DL (NEG-TRACE)
[2021-01-03 12:55] LABS: Appearance Urine CLOUDY; Color Urine YELLOW
== END 2021-01-03 12:59 | disposition home or self-care (01) ==
PROVIDERS: Physician Assistant Medical; Emergency Provider Emergency Medicine
DX: R11.2 Nausea with vomiting, unspecified (principal); R19.7 Diarrhea, unspecified; F11.10 Opioid abuse, uncomplicated; Z20.822 Contact with and (suspected) exposure to COVID-19; I69.351 Hemiplegia and hemiparesis following cerebral infarction affecting right dominant side; I69.328 Other speech and language deficits following cerebral infarction
CPT/HCPCS: 0241U; 36415; 80053; 81003; 82077; 83690; 83735; 85025; 85610; 96361; 96374; 99283; 99284; J2405

== ENCOUNTER 2023-02-03 21:02 | Emergency (ER) | payer OTHER, SELFPAY ==
--- NOTE | ~2023-02-03 | CT_ITS ---
EXAMINATION: CT ABDOMEN AND PELVIS WITH CONTRAST CLINICAL INFORMATION: Buttock drainage pain COMPARISON: 09/16/2020 TECHNIQUE: Multidetector volumetric images were obtained from the superior aspect of the liver through the pubic symphysis following administration 85 mL of Omnipaque 350 intravenous contrast. Sagittal and coronal reformatted images were obtained on the technologist's workstation. Oral contrast: No This CT examination was performed using dose optimization techniques as appropriate, variously including the following: *Automated exposure control *Adjustment of mA and/or kV according to patient size (this includes techniques or standardized protocols for targeted exams where dose is matched to indication/reason for exam; i.e. extremities or head) *Use of iterative reconstruction technique DLP: 1086 mGy-cm FINDINGS: LUNG BASES: The visualized lung bases are unremarkable. LIVER, GALLBLADDER, AND BILIARY TREE: The liver is normal in size, shape, and attenuation. No focal hepatic lesion or biliary ductal dilatation is present. The gallbladder is unremarkable. PANCREAS: Unremarkable. SPLEEN: Unremarkable. ADRENAL GLANDS: Unremarkable. KIDNEYS AND URETERS: Bilateral nephrograms are symmetric. No hydronephrosis or obstructing calculus identified. Right renal cysts noted; no follow-up recommended. BLADDER: Nearly empty and not well evaluated. GASTROINTESTINAL TRACT: No evidence of bowel obstruction or significant wall thickening. The appendix is unremarkable. No free fluid or free air is seen. ABDOMINAL WALL: There is prominent thickening/superficial edema posteriorly throughout the pelvis/buttock region, right slightly greater than left. Internal density is hypoattenuating and slightly greater than simple fluid overall. Appearance is overall suspicious for large superficial buttock collections bilaterally, on the right measuring up to approximately 18 cm in transverse dimension and at least 25 cm in craniocaudal dimension, with thickness up to approximately 2 cm. Left collection measures approximately 11 cm in transverse dimension and 17 cm in craniocaudal dimension, with thickness up to approximately 1.4 cm. LYMPH NODES: There is an enlarged right external iliac lymph node measuring 2.0 cm (dimension. An enlarged right inguinal lymph node measures 2.1 cm in short axis dimension. These have increased in size since 09/16/2020. There are also a few enlarged left inguinal lymph nodes measuring up to 1.3 cm in short axis dimension, increased from prior. VASCULAR: Unremarkable. PELVIC VISCERA: Unremarkable. OSSEOUS STRUCTURES: Severe degenerative change of the left hip. A screw is present in the proximal left femur. No acute osseous findings are seen. CT/CT abdomen pelvis w IV con IMPRESSION: 1. Findings suspicious for complex superficial collections throughout the posterior pelvis/buttock region, right slightly greater than left as detailed above. 2. Bilateral inguinal and right external iliac adenopathy, which may be reactive. 3. Severe degenerative change of the left hip.
[2023-02-03 21:15] VITALS: BP 112/72; PULSE 86; RESP 16; TEMP 36.1; O2SAT 97; BMI 24.3
[2023-02-03 22:20] VITALS: BP 114/64; PULSE 66; RESP 18; TEMP 36.7; O2SAT 100
--- OUTSIDE RECORDS SUMMARY | 2023-02-03 22:22 | XMS_ITS | Continuity of Care Document ---
Author Name Unknown Organization [facility] Address [address] [place] [id number]- Care Team Providers Care Inorganic Chemistry Professor Name Role Phone Genoveva PAGAN, Derek Primary Care Physician Encounter [facility] Date(s): 10/23/22 - 11/22/22 [facility] [address] [place] [id number]- Attending Physician: Sangeetha Latif Admitting Physician: AdmSangeetha steward Referring Physician: AdmtrSangeetha Allergies, Adverse Reactions, Alerts No Known Allergies Immunizations Given and Recorded Vaccine Date Status Refusal Reason influenza virus vaccine, inactivated 05/18/22 Give n tetanus/diphtheria/pertussis, acel(Tdap) 09/13/19 Recorded Medications 3 in 1 commode 3 in 1 commode, See Instructions, # 1 each, Refills 0, Tot. Refills 0, Maintenance, use as needed to prevent fall. Diagnosis: Stroke, Impaired Mobility. ICD10 I63.9, ICDR26.2. KRISSY 99 for PCP Jacobo Fuchs Fax to Steve, 06/29/22 12:27:00 EST... Start Date: 06/29/22 Status: Ordered acitretin 10 mg oral capsule TAKE 1 CAPSULE EVERY OTHER DAY FOR NEXT 2 WEEKS THEN 1 CAPSULE DAILY Start Date: 05/17/22 Status: Ordered amLODIPine 5 mg oral tablet 1 tablet, By Mouth, Daily, # 30 tablet, 11 Refills, [id number], 193, cm, 10/26/21 9:21:00 EDT,Height, 97.2, kg, 10/26/21 9:21:00 EDT, Dry Weight Start Date: 11/15/21 Status: Ordered baclofen 20 mg oral tablet 20 mg, 1, tablet, By Mouth, 4 times a day, # 120 tablet, Refills 5, Tot. Refills 5, Maintenance, 10/26/21 9:45:00 EDT, Route to Pharmacy Electronically, [facility]/pharmacy #[id number], 193, cm, 10/26/21 9:21:00 EDT, Height, 97.2, kg, 10/26/21 9:21:00 EDT, Dry Weight Start Date: 10/26/21 Status: Ordered Botox 100 units injection See Instructions, 400 units total for MD to inject., # 1 kit, 3 Refills, Maintenance, 09/16/22 15:22:00 EDT Start Date: 09/16/22 Status: Ordered CHUX CHUX, See Instructions, # 60 each, Refills 11, Tot. Refills 11, Maintenance, 2 per day Functional Incontinence R39.81, 11/01/22 16:32:00 EDT, Supply Start Date: 11/01/22 Status: Ordered Diapers, adult extra Large Diapers, adult extra Large, See Instructions, # 60 each, Refills 11, Tot. 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 L73.2 FunctionalIncontinence R39.81 Please fax to Talisha Start Date: 11/01/22 Status: Ordered duloxetine 30 mg oral enteric coated capsule 1 capsule, By Mouth, Daily, # 30 capsule, 5 Refills, Maintenance, 08/17/22 15:25:00 EDT, [id number], 193.04, cm, 07/23/22 14:07:00 EDT, Height, 99.6, kg, 06/06/22 18:00:00 EST, Dry Weight Start Date: 08/17/22 Status: Ordered Eliquis 5 mg oral tablet 1 tablet, By Mouth, 2 times a day, # 60 tablet, 11 Refills, 02/07/22 11:13:00 EDT, [facility]/pharmacy #[id number], 193, cm, 02/07/22 10:31:00 EDT, Height, 97.2, kg, 10/26/21 9:21:00 EDT, Dry Weight Start Date: 02/07/22 Status: Ordered ferrous sulfate 325 mg oral tablet TAKE 1 TABLET BY MOUTH EVERY DAY NEEDED Start Date: 09/12/22 Status: Ordered FLUoxetine 20 mg oral capsule 1, capsule, By Mouth, Daily, # 30 capsule, Refills 14, Maintenance, 08/13/22 15:55:00 EDT, Route toPharmacy Electronically, [id number], 193.04, cm, 07/23/22 14:07:00 EDT, Height, 99.6, kg, 06/06/22 18:00:00 EST, Dry Weight Start Date: 08/13/22 Status: Ordered folic acid 1 mg oral tablet TAKE 1 TABLET BY MOUTH EVERY DAY THAT YOU ARE NOT TAKING METHOTREXATE Start Date: 09/12/22 Status: Ordered gabapentin 300 mg oral capsule 1, capsule, By Mouth, 3 times a day, # 90 capsule, Refills 5, Maintenance, 02/22/22 9:42:00 EDT, Route to Pharmacy Electronically, [id number], 193, cm, 02/07/22 10:31:00 EDT, Height, 97.2, kg, 10/26/21 9:21:00 EDT, Dry Weight Start Date: 02/22/22 Status: Ordered large gauze large gauze, See Instructions, # 100 each, Refills 0, Tot. Refills 0, Maintenance, L73.2 HS, 08/02/22 16:16:00 EDT, Supply Start Date: 08/02/22 Status: Ordered methotrexate 2.5 mg oral tablet TAKE 4 TABLETS (10 MG TOTAL) BY MOUTH ONCE A WEEK Start Date: 09/12/22 Status: Ordered omeprazole 40 mg oral enteric coated capsule 1 capsule, By Mouth, Daily, # 30 capsule, 5 Refills, Maintenance, 08/13/22 15:28:00 EDT, [facility]/pharmacy #[id number], 193.04, cm, 07/23/22 14:07:00 EDT, Height, 99.6, kg, 06/06/22 18:00:00 EST, Dry Weight Start Date: 08/13/22 Status: Ordered oxycodone 15 mg oral tablet, extended release 1 tablet = 15 mg, By Mouth, Every 12 hours, # 60 tablet, 0 Refills, Maintenance, 10/16/22 16:53:00 EDT, ER Tablet, [facility]/pharmacy #[id number], Partial fill upon patient request if the prescription is for a schedule II opioid drug., 193.04, cm, 10/16/22 10:24:... Start Date: 10/16/22 Status: Ordered Right ankle & foot orthosis Right ankle & foot orthosis, See Instructions, # 1 each, Refills 1, Tot. Refills 1, Maintenance, Please dispense 1 right ankle and foot othosis Dx: R29.898, R26.81, M25.373 Length of need: 99 months Number to fax to: [phone], 01/06/21 13:10:00 E... Start Date: 01/06/21 Status: Ordered scopolamine 1 mg/72 hr transdermal film, extended release See Instructions, APPLY 1 PATCH TO RIGHT MASTOID BONE EVERY 72 HOURS, # 10 each, 3 Refills, Maintenance, 06/29/22 11:46:00 EST, [facility]/pharmacy #[id number], APPLY 1 PATCH TO RIGHT MASTOID BONE EVERY 72 HOURS,193.04, cm, 06/29/22 11:17:00 EST, Height, 99.6, kg... Start Date: 06/29/22 Status: Ordered scopolamine 1 mg/72 hr transdermal film, extended release 1 film, Topically, Every 72 hours, Apply to right mastoid bone, # 24 each, 1 Refills, Maintenance, 07/13/22 10:00:00 EST, [facility]/pharmacy #[id number], Partial fill upon patient request if the prescription is for a schedule II opioid drug., 1 film Topically Lucía... Start Date: 07/13/22 Status: Ordered tiZANidine 4 mg oral tablet See Instructions, Start by taking half a tablet By Mouth Daily 3x/day and increase as per written instructions, # 90 tablet, Refills 2, Tot. Refills 2, Maintenance, 09/13/22 14:17:00 EDT, Instructions Replace Required Details, Route to Pharmacy Electr... Start Date: 09/13/22 Status: Ordered transfer tub bench transfer tub bench, See Instructions, # 1 each, Refills 0, Tot. Refills 0, Maintenance, use as needed to prevent fall. Diagnosis: Stroke, Impaired Mobility. ICD10 I63.9, ICDR26.2. KRISSY 99 for PCP Jacobo Fuchs Fax to Steve, 07/23/22 14:27:00... Start Date: 07/23/22 Status: Ordered Tylenol 325 mg oral tablet 650 mg, 2, tablet, By Mouth, Every 4 hours, PRN, # 120 tablet, Refills 0, Tot. Refills 0, Acute 05/21/23 19:50:00 EST, for pain, 05/20/22 19:50:00 EST, Route to Pharmacy Electronically, [facility]/pharmacy #[id number], Partial fill upon patient request if the pres... Start Date: 05/20/22 Stop Date: 05/21/23 Status: Ordered walker with platform attached walker with platform attached, See Instructions, # 1 each, Refills 0, Tot. Refills 0, Maintenance, Please dispense 1 (one) walker with attached platform Ht: 187.6cm Wt: 101.4kg Dx: History of stroke - Z86.73, Right-sided weakness - R53.1,Spastici... Start Date: 11/11/20 Status: Ordered Problem List Condition Confirmation Course Effective Dates Status Health St atus Informant Chronic ischemic left ICA stroke Confirmed Active Depression Confirmed Active Controlled substance agreement signed 10/16/22 Confirmed Active GERD (gastroesophageal reflux disease) Confirmed Active Hidradenitis suppurativa Confirmed Active Hypertension Confirmed Active Wound of buttock Confirmed Active Insomnia Confirmed Active Iron deficiency anemia Confirmed Active 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 N CP Care Management, Cad Developer Carmen Elizabeth [phone] Confirmed Active Therapeutic drug monitoring Confirmed Active Peripheral neuropathy Confirmed Active Spasticity Confirmed Active Tobacco dependence Confirmed Active Social History Social History Type Response Smoking Status 5-9 cigarettes (betw een 1/4 to 1/2 pack)/day in last 30 days entered on: 05/16/22 Sex Patient Care team information Care Team Personnel Name: Areli Pittman RN Position: [facility] ED RN W/OE and Tasks Member Role: Primary Care Nurse Name: Derek Toams MD Position: [facility] Resident Member Role: PCP Address: Address: [address] [place] [id number]- Name: Ally Boyd RN Position: [facility] RN Member Role: Primary Care Nurse Name: Axel Savage RN Position: [facility] RN Member Role: Primary Care Nurse Name: Filemon King RN Position: [facility] RN Member Role: Primary Care Nurse Name: Glenys Fox RN Position: S RN Member Role: Primary Care Nurse Care Team Related Persons Name: BEVERLY REYNAGA Address: [address] [place] [address] Name: AISLINN DE LA PAZ Address: [address] [address]
--- OUTSIDE RECORDS SUMMARY | 2023-02-03 22:22 | XMS_ITS | Continuity of Care Document ---
Author Name Unknown Organization [facility] Address [address] [place] [address]- Care Team Providers Care Industrial Hygienist Name Role Phone Judie Mills DO Primary Care Physician [phone] Encounter [facility] [place] Date(s): 12/01/20 - 12/31/[address] [id number] Allergies, Adverse Reactions, Alerts Substance Reaction Severity Status NKA Active Medications amLODIPine 5 mg oral tablet 5 mg, 1, tablet, By Mouth, Daily, # 30 tablet, Refills 11, Tot. Refills 11, Maintenance, 10/31/20 12:56:00 EDT, Route to Pharmacy Electronically, [id number], Partial fill upon patient requestif the prescription is for a schedule II opioid laura... Start Date: 10/31/20 Status: Ordered apixaban 5 mg oral tablet 1 tablet = 5 mg, By Mouth, 2 times a day, # 60 tablet, 11 Refills, Maintenance, 10/31/20 12:55:00 EDT, Tablet, [id number], Partial fill upon patient request if the prescription is for a schedule II opioid drug., 187.6, cm, 10/19/20 9:25:00 EDT... Start Date: 10/31/20 Status: Ordered clindamycin 1% topical gel 1 application, Topically, 2 times a day, # 60 Gm, 0 Refills, Maintenance, 04/06/20 16:11:00 EST, Gel, [id number], Partial fill upon patient request, 1 application Topically 2 times a day, 187.6, cm, 02/29/20 15:04:00 EDT, Height Start Date: 04/06/20 Status: Ordered Cosentyx 150 mg/mL subcutaneous solution = 300 mg, Subcutaneous Injection, Every week, 0 Refills, Maintenance, 11/03/20 22:01:00 EDT, Solution, Partial fill upon patient request if the prescription is for a schedule II opioid drug. Start Date: 11/03/20 Status: Ordered Docusate/Senna Tablet 2 tablet, By Mouth, Daily, PRN Constipation, 0 Refills, Maintenance, 09/12/20 14:41:00 EDT, Tablet,Partial fill upon patient request if the prescription is for a schedule II opioid drug. Start Date: 09/12/20 Status: Ordered folic acid 1 mg oral tablet 1, tablet, By Mouth, Daily, # 30 tablet, Refills 11, Tot. Refills 0, Maintenance, 11/22/20 8:13:00 EDT, Route to Pharmacy Electronically, [id number], 187.6, cm, 10/19/20 9:25:00 EDT, Height, 101.4, kg, 08/27/20 1:59:00 EDT, Dry Weight Start Date: 11/22/20 Status: Ordered gabapentin 100 mg oral capsule 100 mg, 1, capsule, By Mouth, 3 times a day, # 90 capsule, Refills 11, Tot. Refills 11, Maintenance, 11/02/20 17:57:00 EDT, Route to Pharmacy Electronically, [facility]/pharmacy #[id number], Partial fill upon patient request if the prescription is for a schedule I... Start Date: 11/02/20 Status: Ordered Milk of Magnesia Liquid 30 mL, By Mouth, 2 times a day, PRN Constipation, 0 Refills, Maintenance, 09/12/20 14:41:00 EDT, Suspension, Partial fill upon patient request if the prescription is for a schedule II opioid drug. Start Date: 09/12/20 Status: Ordered Protonix 40 mg oral delayed release tablet = 40 mg, By Mouth, Daily, Please note change in dosage from twice daily to once daily, # 30 tablet,3 Refills, Maintenance, 11/25/20 16:02:00 EDT, EC Tablet, 187.6, cm, 10/19/20 9:25:00 EDT, Height, 101.4, kg, 08/27/20 1:59:00 EDT, Dry Weight Start Date: 11/25/20 Stop Date: 03/25/21 Status: Ordered SEROquel 25 mg oral tablet 25 mg, 1, tablet, By Mouth, 2 times a day, # 60 tablet, Refills 3, Tot. Refills 3, Maintenance, 11/25/20 15:58:00 EDT, Route to Pharmacy Electronically, [facility]/pharmacy #[id number], Partial fill upon patient request if the prescription is for a schedule II opi... Start Date: 11/25/20 Status: Ordered Tylenol 325 mg oral tablet 650 mg, 2, tablet, By Mouth, Every 6 hours, PRN, Refills 0, Maintenance, Pain , Mild, 09/12/20 14:41:00 EDT, Partial fill upon patient request if the prescription is for a schedule II opioid drug. Start Date: 09/12/20 Status: Ordered Vitamin C 500 mg oral tablet 1 tablet, By Mouth, Daily, # 30 tablet, 11 Refills, Maintenance, 11/22/20 8:13:00 EDT, [id number], 187.6, cm, 10/19/20 9:25:00 EDT, Height, 101.4, kg, 08/27/20 1:59:00 EDT, Dry Weight Start Date: 11/22/20 Status: Ordered walker with platform attached walker with platform attached, See Instructions, # 1 each, Refills 0, Tot. Refills 0, Maintenance, Please dispense 1 (one) walker with attached platform Ht: 187.6cm Wt: 101.4kg Dx: History of stroke - Z86.73, Right-sided weakness - R53.1,Spastici... Start Date: 11/11/20 Status: Ordered Problem List Condition Effective Dates Status Health Status Inform ant Hidradenitis suppurativa(Confirmed) Active Wound of buttock(Confirmed) Active Tobacco dependence(Confirmed) Active Social History Social History Type Response Smoking Status 10 or more cigarette s (1/2 pack or more)/day in last 30 days entered on: 02/29/20 Sex
--- OUTSIDE RECORDS SUMMARY | 2023-02-03 22:22 | XMS_ITS | Continuity of Care Document ---
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 Name Role Phone Judie Keenan DO Primary Care Physician [id number] Date(s): 01/21/22 - 01/21/[address] [address]- Encounter Diagnosis Hidradenitis suppurativa(Final) - 01/21/22 Discharge Disposition: A-D/C Home Attending Physician: Lashonda Gallego MD Admitting Physician: Lashonda Gallego MD Referring Physician: Not on Staff, Referring MD Allergies, Adverse Reactions, Alerts No Known Allergies Immunizations Given and Recorded Vaccine Date Status Refusal Reason tetanus/diphtheria/pertussis, acel(Tdap) 09/13/19 Recorded Medications acetaminophen 325 mg oral capsule 2 capsule = 650 mg, By Mouth, Every 6 hours, PRN Pain , Moderate, # 90 capsule, 0 Refills, Maintenance, 01/21/22 20:50:00 EDT, Capsule, [id number], Partial fill upon patient request if the prescription is for a schedule II opioid drug., 193, c... Start Date: 01/21/22 Status: Ordered Acetaminophen Tablet 975 mg, Tablet, By Mouth, Once, STAT, 01/21/22 16:23:00 EDT, Stop date 01/21/22 16:23:00 EDT Start Date: 01/21/22 Stop Date: 01/21/22 Status: Completed amLODIPine 5 mg oral tablet 1 tablet, By Mouth, Daily, # 30 tablet, 11 Refills, [facility], 193, cm, 10/26/21 9:21:00 EDT,Height, 97.2, kg, 10/26/21 9:21:00 EDT, Dry Weight Start Date: 11/15/21 Status: Ordered baclofen 20 mg oral tablet 20 mg, 1, tablet, By Mouth, 4 times a day, # 120 tablet, Refills 5, Tot. Refills 5, Maintenance, 10/26/21 9:45:00 EDT, Route to Pharmacy Electronically, [facility]/pharmacy #[id number], 193, cm, 10/26/21 9:21:00 EDT, Height, 97.2, kg, 10/26/21 9:21:00 EDT, Dry Weight Start Date: 10/26/21 Status: Ordered Botox 100 units injection See Instructions, 400 units for MD to inject. Dx: Spasticity, # 2 kit, 3 Refills, Maintenance, 12/13/21 16:10:00 EDT Start Date: 12/13/21 Status: Ordered clindamycin 1% topical gel 1 application, Topically, 2 times a day, # 60 Gm, 0 Refills, Maintenance, 04/06/20 16:11:00 EST, Gel, [facility]/pharmacy #[id number], Partial fill upon patient request, 1 [...] opioid drug. Start Date: 09/12/20 Status: Ordered Eliquis 5 mg oral tablet 1 tablet, By Mouth, 2 times a day, # 60 tablet, 11 Refills, [facility] ST[facility], 193, cm, 10/26/21 9:21:00 EDT, Height, 97.2, kg, 10/26/21 9:21:00 EDT, Dry Weight Start Date: 11/30/21 Status: Ordered folic acid 1 mg oral tablet 1, tablet, By Mouth, Daily, # 30 tablet, Refills 11, Tot. Refills 0, Maintenance, 11/22/20 8:13:00 EDT, Route to Pharmacy Electronically, [facility] STORE [id number], 187.6, cm, 10/19/20 9:25:00 EDT, Height, 101.4, kg, 08/27/20 1:59:00 EDT, Dry Weight Start Date: 11/22/20 Status: Ordered gabapentin 300 mg oral capsule 300 mg, 1, capsule, By Mouth, 3 times a day, # 90 capsule, Refills 5, Tot. Refills 5, Maintenance, 07/12/21 17:20:00 EST, Print Requisition, Partial fill upon patient request if the prescription is for a schedule II opioid drug., 193, cm, 07/12/21 16:... Start Date: 07/12/21 Status: Ordered gabapentin 300 mg oral capsule 300 mg, 1, capsule, By Mouth, Daily at bedtime, # 30 capsule, Refills 3, Tot. Refills 3, Maintenance, 04/03/21 14:16:00 EST, Route to Pharmacy Electronically, [facility]/pharmacy #[id number], Note bedtime dose change, 193, cm, 03/15/21 16:10:00 EDT, Height, 104.5,... Start Date: 04/03/21 Stop Date: 08/01/21 Status: Ordered ibuprofen 600 mg oral tablet 600 mg, 1, tablet, By Mouth, Every 8 hours, PRN, # 100 tablet, Refills 0, Tot. Refills 0, Maintenance, Pain , Moderate, 01/21/22 20:49:00 EDT, Route to Pharmacy Electronically, [facility]/pharmacy #[id number], Partial fill upon patient request if the prescription... Start Date: 01/21/22 Stop Date: 02/04/22 Status: Ordered metoclopramide 10 mg oral tablet, disintegrating 1 tablet = 10 mg, By Mouth, Every 8 hours, PRN Nausea & Vomiting, # 28 tablet, 0 Refills, Maintenance, 02/24/21 17:09:00 EDT, DIS Tablet, [facility]/pharmacy #[id number], Partial fill upon patient request if the prescription is for a schedule II opioid drug., 193,... Start Date: 02/24/21 Status: Ordered Milk of Magnesia Liquid 30 mL, By Mouth, 2 times a day, PRN Constipation, 0 Refills, Maintenance, 09/12/20 14:41:00 EDT, Suspension, Partial fill upon patient request if the prescription is for a schedule II opioid drug. Start Date: 09/12/20 Status: Ordered omeprazole 40 mg oral enteric coated capsule 1 capsule = 40 mg, By Mouth, Daily, # 30 capsule, 5 Refills, Maintenance, 03/13/21 13:24:00 EDT, ECCapsule, [facility]/pharmacy #[id number], Partial fill upon patient request if the prescription is for a schedule II opioid drug., 193, cm, 03/13/21 13:09:00 EDT, H... Start Date: 03/13/21 Status: Ordered oxyCODONE 5 mg oral capsule 1 capsule = 5 mg, By Mouth, Every 6 hours, PRN as needed for pain, # 12 capsule, 0 Refills, Maintenance, 01/21/22 20:50:00 EDT, Capsule, [facility]/pharmacy #[id number], Partial fill upon patient request if the prescription is for a schedule II opioid drug., 193,... Start Date: 01/21/22 Status: Ordered Protonix 40 mg oral delayed release tablet = 40 mg, By Mouth, Daily, Please note change in dosage from twice daily to once daily, # 30 tablet,3 Refills, Maintenance, 11/25/20 16:02:00 EDT, EC Tablet, 187.6, cm, 10/19/20 9:25:00 EDT, Height, 101.4, kg, 08/27/20 1:59:00 EDT, Dry Weight Start Date: 11/25/20 Stop Date: 03/25/21 Status: Ordered PROzac 20 mg oral capsule 20 mg, 1, capsule, By Mouth, Daily, # 90 capsule, Refills 4, Tot. Refills 4, Maintenance, 03/15/21 22:43:00 EDT, Route to Pharmacy Electronically, [facility]/pharmacy #[id number], Partial fill upon patient request if the prescription is for a schedule II opioid dr... Start Date: 03/15/21 Status: Ordered Right ankle & foot orthosis Right ankle & foot orthosis, See Instructions, # 1 each, Refills 1, Tot. Refills 1, Maintenance, Please dispense 1 right ankle and foot othosis Dx: R29.898, R26.81, M25.373 Length of need: 99 months Number to fax to: [phone], 01/06/21 13:10:00 E... Start Date: 01/06/21 Status: Ordered scopolamine 1 mg/72 hr transdermal film, extended release 1 film, Topically, Every 72 hours, Apply to right mastoid bone, # 10 each, 1 Refills, Acute 07/13/22 10:00:00 EST, 07/12/21 16:55:00 EST, [facility]/pharmacy #[id number], Partial fill upon patient request if the prescription is for a schedule II opioid drug., 1 fi... Start Date: 07/12/21 Stop Date: 07/13/22 Status: Ordered scopolamine 1 mg/72 hr transdermal film, extended release 1 film, Topically, Every 72 hours, Apply to right mastoid bone, # 24 each, 1 Refills, Maintenance, 07/13/22 10:00:00 EST, [facility]/pharmacy #[id number], Partial fill upon patient request if the prescription is for a schedule II opioid drug., 1 film Topically Lucía... Start Date: 07/13/22 Status: Ordered tiZANidine 2 mg oral tablet See Instructions, 1 tablet by mouth twice a day, # 60 tablet, Refills 3, Tot. Refills 3, Maintenance, 12/13/21 16:11:00 EDT, Instructions Replace Required Details, Route to Pharmacy Electronically, [facility]/pharmacy #[id number], Partial fill upon patient request... Start Date: 12/13/21 Status: Ordered Tylenol 325 mg oral tablet [...] Refills, Maintenance, 11/22/20 8:13:00 EDT, [facility], 187.6, cm, 10/19/20 9:25:00 EDT, Height, 101.4, [...] Hidradenitis suppurativa(Confirmed) Active Wound of buttock(Confirmed) Active Insomnia(Confirmed) Active Therapeutic drug monitoring(Confirmed) Active Spasticity(Confirmed) Active Tobacco dependence(Confirmed) Active Vital Signs Most recent to oldest [Reference Range]: 1 2 3 Oxygen Saturation [94-100 %] 99 % (01/21/22 9:22 PM) 100 % (01/21/22 6:21 PM) 100 % (01/21/22 3:09 PM) Pulse Rate [55-90 bpm] 56 bpm (01/21/22 9:22 PM) 56 bpm (01/21/22 6:21 PM) 59 bpm (01/21/22 3:09 PM) Blood Pressure [90-138/55-84 mm Hg] 117/64mm Hg (01/21/22 9:22 PM) 121/67mm Hg (01/21/22 6:21 PM) 109/56mm Hg (01/21/22 3:09 PM) Respiratory Rate [16-30 br/min] 16 br/min (01/21/22 9:22 PM) 20 br/min (01/21/22 6:21 PM) 16 br/min (01/21/22 6:20 PM) Temperature [96.8-100.4 DegF] 98.6 DegF (01/21/22 9:22 PM) 98.5 DegF (01/21/22 6:21 PM) 98.1 DegF (01/21/22 3:09 PM) Mode of Delivery (Oxygen) Room air (01/21/22 9:22 PM) Room air (01/21/22 6:21 PM) Room air (01/21/22 3:09 PM) Blood pressure sites Arm, left (01/21/22 9:22 PM) Arm, left (01/21/22 3:09 PM) Temperature Route Oral (01/21/22 9:22 PM) Oral (01/21/22 6:21 PM) Oral (01/21/22 3:09 PM) Social History Social History Type Response Smoking Status 10 or more cigarette s (1/2 pack or more)/day in last 30 days entered on: 02/29/20 Sex Care Team Personnel Name: Judie Keenan DO Address: [address] [place] [id number]
--- OUTSIDE RECORDS SUMMARY | 2023-02-03 22:22 | XMS_ITS | Continuity of Care Document ---
Author Name Unknown Organization [facility] Address [address] [place] [address]- Care Team Providers Care Clinical Nursing Assistant Name Role Phone Derek Tomas MD Primary Care Physician Encounter [facility] Date(s): 07/23/22 - 08/22/[address] [address]- Attending Physician: Admtr, Sangeetha Admitting Physician: Admtr, Sangeetha Referring Physician: Admtr, Ar8 Allergies, Adverse Reactions, Alerts No Known Allergies [...] Mouth, Daily, # 30 tablet, 11 Refills, [id number], 193, cm, 10/26/21 9:21:00 EDT,Height, 97.2, kg, 10/26/21 9:21:00 EDT, Dry Weight Start Date: 11/15/21 Status: Ordered baclofen 20 mg oral tablet 20 mg, 1, tablet, By Mouth, 4 times a day, # 120 tablet, Refills 5, Tot. Refills 5, Maintenance, 10/26/21 9:45:00 EDT, Route to Pharmacy Electronically, [facility]/pharmacy #[id number], 193, cm, 10/26/21 9:21:00 EDT, Height, 97.2, kg, 10/26/21 9:21:00 EDT, Dry Weight Start Date: 10/26/21 Status: Ordered Diapers, adult extra Large Diapers, adult extra Large, See Instructions, # 60 each, Refills 11, Tot. 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 L73.2 Please fatank Finnegan and Aidan, 08/13/22 16:58:00 EDT, Supply Start Date: 08/13/22 Status: Ordered duloxetine 30 mg oral enteric coated capsule 1 capsule, By Mouth, Daily, # 30 capsule, 5 Refills, Maintenance, 08/17/22 15:25:00 EDT, [facility], 193.04, cm, 07/23/22 14:07:00 EDT, Height, 99.6, kg, 06/06/22 18:00:00 EST, Dry Weight Start Date: 08/17/22 Status: Ordered Eliquis 5 mg oral tablet 1 tablet, By Mouth, 2 times a day, # 60 tablet, 11 Refills, 02/07/22 11:13:00 EDT, [facility]/pharmacy #[id number], 193, cm, 02/07/22 10:31:00 EDT, Height, 97.2, kg, 10/26/21 9:21:00 EDT, Dry Weight Start Date: 02/07/22 Status: Ordered ferrous sulfate 325 mg oral tablet 1 tablet = 325 mg, By Mouth, Every Saturday, Saturday and Saturday, PRN as needed, for 30 days, Physician Stop 08/23/22 8:05:00 EDT Start Date: 05/17/22 Stop Date: 08/23/22 Status: Ordered FLUoxetine 20 mg oral capsule 1, capsule, By Mouth, Daily, # 30 capsule, Refills 14, Maintenance, 08/13/22 15:55:00 EDT, Route toPharmacy Electronically, [facility] 32941, 193.04, cm, 07/23/22 14:07:00 EDT, Height, 99.6, kg, 06/06/22 18:00:00 EST, Dry Weight Start Date: 08/13/22 Status: Ordered gabapentin 300 mg oral capsule 1, capsule, By Mouth, 3 times a day, # 90 capsule, Refills 5, Maintenance, 02/22/22 9:42:00 EDT, Route to Pharmacy Electronically, [facility] 698[facility], 193, cm, 02/07/22 10:31:00 EDT, Height, 97.2, kg, 10/26/21 9:21:00 EDT, Dry Weight Start Date: 02/22/22 Status: Ordered large gauze large gauze, See Instructions, # 100 each, Refills 0, Tot. Refills 0, Maintenance, L73.2 HS, 08/02/22 16:16:00 EDT, Supply Start Date: 08/02/22 Status: Ordered omeprazole 40 mg oral enteric coated capsule 1 capsule, By Mouth, Daily, # 30 capsule, 5 Refills, Maintenance, 08/13/22 15:28:00 EDT, [facility]/pharmacy #[id number], 193.04, cm, 07/23/22 14:07:00 EDT, Height, 99.6, kg, 06/06/22 18:00:00 EST, Dry Weight Start Date: 08/13/22 Status: Ordered oxycodone 15 mg oral tablet, extended release 1 tablet = 15 mg, By Mouth, Every 12 hours, # 60 tablet, 0 Refills, Maintenance, 07/23/22 14:17:00 EDT, ER Tablet, [facility]/pharmacy #[id number], Partial fill upon patient request if the prescription is for a schedule II opioid drug., 193.04, cm, 07/23/22 14:07:... Start Date: 07/23/22 Status: Ordered Right ankle & foot orthosis Right ankle & foot orthosis, See Instructions, # 1 each, Refills 1, Tot. Refills 1, Maintenance, Please dispense 1 right ankle and foot othosis Dx: R29.898, R26.81, M25.373 Length of need: 99 months Number to fax to: [phone], 08/27/21 13:10:00 E... Start Date: 01/06/21 Status: Ordered scopolamine 1 mg/72 hr transdermal film, extended release See Instructions, APPLY 1 PATCH TO RIGHT MASTOID BONE EVERY 72 HOURS, # 10 each, 3 Refills, Maintenance, 06/29/22 11:46:00 EST, [facility]/pharmacy #[id number], APPLY 1 PATCH TO RIGHT MASTOID BONE EVERY 72 HOURS,193.04, cm, 06/29/22 11:17:00 EST, Height, 99.6, kg... Start Date: 06/29/22 Status: Ordered scopolamine 1 mg/72 hr transdermal film, extended release 1 film, Topically, Every 72 hours, Apply to right mastoid bone, # 24 each, 1 Refills, Maintenance, 07/13/22 10:00:00 EST, [facility]/pharmacy #[id number], Partial fill upon patient request if the prescription is for a schedule II opioid drug., 1 film Topically Lucía... Start Date: 07/13/22 Status: Ordered tiZANidine 2 mg oral tablet See Instructions, TAKE 1 TABLET BY MOUTH three times A DAY, # 90 tablet, Refills 6, Tot. Refills 6,Maintenance, 07/04/22 12:44:00 EST, Instructions Replace Required Details, Route to Pharmacy Electronically, [facility]/pharmacy #[id number], 193.04, cm, 07/04/22... 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 N CP Care Management, Traffic Rate Computer Carmen Elizabeth [phone] Confirmed Active Therapeutic drug monitoring Confirmed Active Peripheral neuropathy Confirmed Active Spasticity Confirmed Active Tobacco dependence Confirmed Active Social History Social History Type Response Smoking Status 5-9 cigarettes (betw een 1/4 to 1/2 pack)/day in last 30 days entered on: 05/16/22 Sex Note * Event Display: Laboratory Result Scanned Authored Date: * Event Display: Laboratory Result Scanned Authored Date: * Judie Keenan DO: PERFORM Event Display: Laboratory Result Scanned Authored Date: [id number] 03/02/22 labs Lipid panel WNL G6PD screen WNL * Event Display: Laboratory Result Scanned Authored Date: * Judie Keenan DO: PERFORM Event Display: Laboratory Result Scanned Authored Date: [id number] Labs resulted 03/01/22 CBC WBC 8.5, diff WNL H/H 10.6/36.4 - mild anemia Plts 747 - thrombocytosis CMP: Electrolytes, kidney function WNL Alk phos elevated at 155 Remainder of liver testing normal Patient Care team information Care Team Personnel Name: Areli Pittman RN Position: [facility] ED RN W/OE and Tasks Member Role: Primary Care Nurse Name: Bettye Carney Position: [facility] RN Member Role: Primary Care Nurse Name: Derek Tomas MD Position: [facility] Resident Member Role: PCP Address: Address: [address] [place] [address]- [place] Name: Ally Boyd RN Position: S RN Member Role: Primary Care Nurse Name: Axel Savage RN Position: S RN Member Role: Primary Care Nurse Name: Filemon King RN Position: S RN Member Role: Primary Care Nurse Name: Glenys Fox RN Position: S RN Member Role: Primary Care Nurse Care Team Related Persons Name: BEVERLY REYNAGA Address: [address] [place] [address] Name: AISLINN DE LA PAZ Address: [address] [place] [address]
--- OUTSIDE RECORDS SUMMARY | 2023-02-03 22:22 | XMS_ITS | Continuity of Care Document ---
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 Role Phone Judie Mills DO Primary Care Physician Encounter [facility] Date(s): 02/29/20 - 03/07/20 [facility] [address] [place] [address]- [facility] Encounter Diagnosis Wound of buttock(Discharge Diagnosis) - 02/29/20 Hidradenitis suppurativa(Discharge Diagnosis) - 02/29/20 Attending Physician: Delon Rincon Referring Physician: Judie Mills DO Allergies, Adverse Reactions, Alerts Substance Reaction Severity Status NKA Active Medications Readi-Cat 2 oral suspension See Instructions, Dispense 2 bottles (450ml each bottle). Drink first bottle [address] scan. Drink second bottle [address] scan., # 2 each, 0 Refills, Maintenance, 02/29/20 15:56:00 EDT, [id number], Dispense 2 bottles... Start Date: 02/29/20 Status: Ordered Problem List Condition Effective Dates Status Health Status Inform ant Hidradenitis suppurativa(Confirmed) Active Wound of buttock(Confirmed) Active Diagnosis Diagnosis Type Effective Dates Health Status Clinical Service Informant Hidradenitis suppurativa Discharge Diagnosis 02/29/20 Wound of buttock Discharge Diagnosis 02/29/20 Procedures Procedure Date Related Diagnosis Body Site Status Operative procedure on hip 2000 Completed Vital Signs Most recent to oldest [Reference Range]: 1 Height 187.6 cm (02/29/20 3:04 PM) Weight 106.8 kg (02/29/20 3:04 PM) Pulse Rate [55-90 bpm] 83 bpm (02/29/20 3:04 PM) Body Mass Index [18.5-24.99] 30.35 *>HHI* (02/29/20 3:04 PM) Blood Pressure [90-138/55-84 mm Hg] 130/ 82mm Hg (02/29/20 3:04 PM) Respiratory Rate [16-30 br/min] 18 br/mi n (02/29/20 3:04 PM) Temperature [96.8-100.4 DegF] 97.3 DegF (02/29/20 3:04 PM) Blood pressure sites Arm, left (02/29/20 3:04 PM) Temperature Route Temporal (02/29/20 3:04 PM) Weight Obtained Via Standing scale (02/29/20 3:04 PM) Social History Social History Type Response Smoking Status 10 or more cigarette s (1/2 pack or more)/day in last 30 days entered on: 02/29/20 Sex
--- OUTSIDE RECORDS SUMMARY | 2023-02-03 22:22 | XMS_ITS | Continuity of Care Document ---
Author Name Unknown Organization [facility] Address [address] [place] [address]- Care Team Providers Care Assembler Faucets Name Role Phone Judie Mills DO Primary Care Physician [phone] Encounter [facility] ACCT R [id number] Date(s): 02/09/21 - 03/17/[address] [address] Attending Physician: Not on Staff, Attending MD Allergies, Adverse Reactions, Alerts Substance Reaction Severity Status NKA Active Immunizations Given and Recorded Vaccine Date Status Refusal Reason tetanus/diphtheria/pertussis, acel(Tdap) 09/13/19 Recorded Medications amLODIPine 5 mg oral tablet 5 mg, 1, tablet, By Mouth, Daily, # 30 tablet, Refills 11, Tot. Refills 11, Maintenance, 10/31/20 12:56:00 EDT, Route to Pharmacy Electronically, [facility]/pharmacy #[id number], Partial fill upon patient requestif the [...] 11/22/20 8:13:00 EDT, Route to Pharmacy Electronically, [facility] STORE [address]15, 187.6, cm, 10/19/20 9:25:00 EDT, Height, 101.4, kg, 08/27/20 1:59:00 EDT, Dry Weight Start Date: 11/22/20 Status: Ordered gabapentin 100 mg oral capsule 100 mg, 1, capsule, By Mouth, 3 times a day, # 90 capsule, Refills 11, Tot. Refills 11, Maintenance, 11/02/20 17:57:00 EDT, Route to Pharmacy Electronically, [facility]/pharmacy #[id number], Partial fill upon patient request if the prescription is for a schedule I... Start Date: 11/02/20 Status: Ordered metoclopramide 10 mg oral tablet, disintegrating 1 tablet = 10 mg, By Mouth, Every 8 hours, PRN Nausea & Vomiting, # 28 tablet, 0 Refills, Maintenance, 02/24/21 17:09:00 EDT, DIS Tablet, [id number], Partial fill upon patient [...] 5 Refills, Maintenance, 03/13/21 13:24:00 EDT, ECCapsule, [facility]/pharmacy #[id number], Partial fill upon patient request if the prescription is for a schedule II opioid drug., 193, cm, 03/13/21 13:09:00 EDT, H... Start Date: 03/13/21 Status: Ordered Protonix 40 mg oral delayed [...] 03/15/21 22:43:00 EDT, Route to Pharmacy Electronically, [facility]/pharmacy #[id number], Partial fill upon patient request if the prescription is for a schedule II opioid dr... Start Date: 03/15/21 Status: Ordered Right ankle & foot orthosis Right ankle & foot orthosis, See Instructions, # 1 each, Refills 1, Tot. Refills 1, Maintenance, Please dispense 1 right ankle and foot othosis Dx: R29.898, R26.81, M25.373 Length of need: 99 months Number to fax to: [phone], 01/06/21 13:10:00 E... Start Date: 01/06/21 Status: Ordered SEROquel 25 mg oral tablet 25 mg, 1, tablet, By Mouth, 2 times a day, # 60 tablet, Refills 3, Tot. Refills 3, Maintenance, 11/25/20 15:58:00 EDT, Route to Pharmacy Electronically, [facility]/pharmacy #[id number], Partial fill upon patient request if [...] Refills, Maintenance, 11/22/20 8:13:00 EDT, [facility], 187.6, cm, 10/19/20 9:25:00 EDT, Height, 101.4, [...]
--- OUTSIDE RECORDS SUMMARY | 2023-02-03 22:22 | XMS_ITS | Continuity of Care Document ---
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 Refills 11, Maintenance, 10/31/20 12:56:00 EDT, Route to Pharmacy Electronically, [facility]/pharmacy #[id number], Partial fill upon patient requestif the [...] EDT, Height Start Date: 04/06/20 Status: Ordered Docusate/Senna Tablet 2 tablet, By Mouth, Daily, PRN Constipation, 0 Refills, Maintenance, 09/12/20 14:41:00 EDT, Tablet,Partial fill upon patient request if the prescription is for a schedule II opioid drug. Start Date: 09/12/20 Status: Ordered folic acid 1 mg oral tablet 1 mg, 1, tablet, By Mouth, Daily, # 30 tablet, Refills 0, Tot. Refills 0, Maintenance, 10/31/20 12:56:00 EDT, Route to Pharmacy Electronically, [facility]/pharmacy #[id number], Partial fill upon patient request if the prescription is for a schedule II opioid drug.... Start Date: 10/31/20 Status: Ordered gabapentin 100 mg oral capsule 100 mg, 1, capsule, By Mouth, 3 times a day, # 90 capsule, Refills 11, Tot. Refills 11, Maintenance, 11/02/20 17:57:00 EDT, Route to Pharmacy Electronically, [facility]/pharmacy #[id number], Partial fill upon patient request if the prescription is for a schedule I... Start Date: 11/02/20 Status: Ordered Humira Pen Crohns/Ulcer Colitis/Hidradenitis Suppurativa Starterr Pack 80 mg/0.8 mL subcutaneous ki 0 Refills, Maintenance, 08/28/20 22:02:00 EDT, Partial fill upon patient request if the prescription is for a schedule II opioid drug. Start Date: 08/28/20 Status: Ordered Milk of Magnesia Liquid 30 mL, By Mouth, 2 times a day, PRN Constipation, 0 Refills, Maintenance, 09/12/20 14:41:00 EDT, Suspension, Partial fill upon patient request if the prescription is for a schedule II opioid drug. Start Date: 09/12/20 Status: Ordered Protonix 40 mg oral delayed release tablet = 40 mg, By Mouth, 2 times a day, 0 Refills, Maintenance, 09/12/20 14:41:00 EDT, EC Tablet Start Date: 09/12/20 Status: Ordered SEROquel 25 mg oral tablet 25 mg, 1, tablet, By Mouth, 2 times a day, Refills 0, Maintenance, 09/12/20 14:41:00 EDT, Partial fill upon patient request if the prescription is for a schedule II opioid drug. Start Date: 09/12/20 Status: Ordered Tylenol 325 mg oral tablet 650 mg, 2, tablet, By Mouth, Every 6 hours, PRN, Refills 0, Maintenance, Pain , Mild, 09/12/20 14:41:00 EDT, Partial fill upon patient request if the prescription is for a schedule II opioid drug. Start Date: 09/12/20 Status: Ordered Vitamin C 500 mg oral tablet 1 tablet = 500 mg, By Mouth, Daily, # 30 tablet, 0 Refills, Maintenance, 10/31/20 12:56:00 EDT, Tablet, [facility]/pharmacy #[id number], Partial fill upon patient request if the prescription is for a schedule II opioid drug., 187.6, cm, 10/19/20 9:25:00 EDT, Leonarda... Start Date: 10/31/20 Status: Ordered Problem List Condition Effective Dates Status Health Status Inform ant Hidradenitis suppurativa(Confirmed) Active Wound of buttock(Confirmed) Active Tobacco dependence(Confirmed) Active Social History Social History Type Response Smoking Status 10 or more cigarette s (1/2 pack or more)/day in last 30 days entered on: 02/29/20 Sex
--- OUTSIDE RECORDS SUMMARY | 2023-02-03 22:22 | XMS_ITS | Continuity of Care Document ---
Author Name Unknown Organization [facility] Address [address] [place] [address]- Care Team Providers Care Binder Sorter Name Role Phone Derek Tomas MD Primary Care Physician Encounter [facility] Date(s): 06/08/22 - 07/08/[address] [address]- Allergies, Adverse Reactions, Alerts No Known Allergies [...] Mouth, Daily, # 30 tablet, 11 Refills, [id number], 193, cm, 10/26/21 9:21:00 EDT,Height, 97.2, kg, 10/26/21 9:21:00 EDT, Dry Weight Start Date: 11/15/21 Status: Ordered baclofen 20 mg oral tablet 20 mg, 1, tablet, By Mouth, 4 times a day, # 120 tablet, Refills 5, Tot. Refills 5, Maintenance, 10/26/21 9:45:00 EDT, Route to Pharmacy Electronically, [facility]/pharmacy #[id number], 193, cm, 10/26/21 9:21:00 EDT, Height, 97.2, kg, 10/26/21 9:21:00 EDT, Dry Weight Start Date: 10/26/21 Status: Ordered Diapers, adult Large Diapers, adult Large, See Instructions, # 180 each, Refills 11, Tot. Refills 11, Maintenance, 6/dayChronic drainage, bleeding of buttocks lesions due to severe hidradenitis L73.2 Please fax to Octaviano Bermudez, 06/29/22 12:28:00 EST, Supply Start Date: 06/29/22 Status: Ordered duloxetine 30 mg oral enteric coated capsule 1 capsule = 30 mg, By Mouth, Daily, # 30 capsule, 1 Refills, Maintenance, 06/29/22 11:48:00 EST, ECCapsule, [facility]/pharmacy #[id number], Partial fill upon patient request if the prescription is for a schedule II opioid drug., 193.04, cm, 06/29/22 11:17:00 EST... Start Date: 06/29/22 Status: Ordered Eliquis 5 mg oral tablet 1 tablet, By Mouth, 2 times a day, # 60 tablet, 11 Refills, 02/07/22 11:13:00 EDT, [facility]/pharmacy #[id number], 193, cm, 02/07/22 10:31:00 EDT, Height, 97.2, kg, 10/26/21 9:21:00 EDT, Dry Weight Start Date: 02/07/22 Status: Ordered ferrous sulfate 325 mg oral tablet 1 tablet = 325 mg, By Mouth, Daily, PRN as needed Start Date: 05/17/22 Status: Ordered gabapentin 300 mg oral capsule 1, capsule, By Mouth, 3 times a day, # 90 capsule, Refills 5, Maintenance, 02/22/22 9:42:00 EDT, Route to Pharmacy Electronically, [facility], 193, cm, 02/07/22 10:31:00 EDT, Height, 97.2, kg, 10/26/21 9:21:00 EDT, Dry Weight Start Date: 02/22/22 Status: Ordered omeprazole 40 mg oral enteric coated capsule 1 capsule, By Mouth, Daily, # 30 capsule, 5 Refills, Maintenance, 02/22/22 9:43:00 EDT, [facility], 193, cm, 02/07/22 10:31:00 EDT, Height, 97.2, kg, 10/26/21 9:21:00 EDT, Dry Weight Start Date: 02/22/22 Status: Ordered Right ankle & foot orthosis Right ankle & foot orthosis, See Instructions, # 1 each, Refills 1, Tot. Refills 1, Maintenance, Please dispense 1 right ankle and foot othosis Dx: R29.898, R26.81, M25.373 Length of need: 99 months Number to fax to: [phone], 01/06/21 13:10:00 E... Start Date: 01/06/21 Status: Ordered scopolamine 1 mg/72 hr transdermal film, extended release See Instructions, APPLY 1 PATCH TO RIGHT MASTOID BONE EVERY 72 HOURS, # 10 each, 3 Refills, Maintenance, 06/29/22 11:46:00 EST, [facility]/pharmacy #[id number], APPLY 1 PATCH TO RIGHT MASTOID BONE EVERY 72 HOURS,193.04, cm, 06/29/22 11:17:00 EST, Height, 99.6, kg... Start Date: 06/29/22 Status: Ordered scopolamine 1 mg/72 hr transdermal film, extended release 1 film, Topically, Every 72 hours, Apply to right mastoid bone, # 24 each, 1 Refills, Maintenance, 07/13/22 10:00:00 EST, [facility]/pharmacy #[id number], Partial fill upon patient request if the prescription is for a schedule II opioid drug., 1 film Topically Lucía... Start Date: 07/13/22 Status: Ordered tiZANidine 2 mg oral tablet See Instructions, TAKE 1 TABLET BY MOUTH three times A DAY, # 90 tablet, Refills 6, Tot. Refills 6,Maintenance, 07/04/22 12:44:00 EST, Instructions Replace Required Details, Route to Pharmacy Electronically, [facility]/pharmacy #[id number], 193.04, cm, 07/04/22... Start Date: 07/04/22 Status: Ordered transfer tub bench transfer tub bench, See Instructions, # 1 each, Refills 0, Tot. Refills 0, Maintenance, use as needed to prevent fall. Diagnosis: Stroke, Impaired Mobility. ICD10 I63.9, ICDR26.2. KRISSY 99 for PCP Jacobo Fuchs Fax to Steve, 06/29/22 12:28:00... Start Date: 06/29/22 Status: Ordered Tylenol 325 mg oral tablet 650 mg, 2, tablet, By Mouth, Every 4 hours, PRN, # 120 tablet, Refills 0, Tot. Refills 0, Acute 05/21/23 19:50:00 EST, for pain, 05/20/22 19:50:00 EST, Route to Pharmacy Electronically, [facility]/pharmacy #[id number], Partial fill upon patient request if the [...] apex Confirmed Active N CP Care Management, Ballistics Expert Caremn Elizabeth [phone] Confirmed Active Therapeutic drug monitoring Confirmed Active Peripheral neuropathy Confirmed Active Spasticity Confirmed Active Tobacco dependence Confirmed Active Social History Social History Type Response Smoking Status 5-9 cigarettes (betw een 1/4 to 1/2 pack)/day in last 30 days entered on: 05/16/22 Sex Patient Care team information Care Team Personnel Name: Areli Pittman RN Position: [facility] ED RN W/OE and Tasks Member Role: Primary Care Nurse Name: Bettye Carney Position: S RN Member Role: Primary Care Nurse Name: Derek Tomas MD Position: S Resident Member Role: PCP Address: Address: [address] [place] [id number]- Name: Ally Boyd RN Position: S RN Member Role: Primary Care Nurse Name: Axel Savage RN Position: S RN Member Role: Primary Care Nurse Name: Filemon King RN Position: S RN Member Role: Primary Care Nurse Name: Glenys Fox RN Position: S RN Member Role: Primary Care Nurse Care Team Related Persons Name: BEVERLY REYNAGA Address: home [address] [place] [id number] Name: AISLINN DE LA PAZ Address: [address] [address]
--- OUTSIDE RECORDS SUMMARY | 2023-02-03 22:22 | XMS_ITS | Continuity of Care Document ---
Author Name Unknown Organization [facility] Address Unknown Care Team Providers Care Station Engineer Chief Name Role Phone Judie Keenan DO Primary Care Physician En[place] [facility] Date(s): 12/13/21 - 12/20/21 [facility] Attending Physician: Carmenza Leblanc MD Referring Physician: Judie Keenan DO Allergies, Adverse Reactions, Alerts No Known Allergies Immunizations Given and Recorded Vaccine Date Status Refusal Reason tetanus/diphtheria/pertussis, acel(Tdap) 09/13/19 Recorded Medications amLODIPine 5 mg oral tablet 1 tablet, By Mouth, Daily, # 30 tablet, 11 Refills, [facility] [address], 193, cm, 10/26/21 9:21:00 EDT,Height, 97.2, kg, 10/26/21 9:21:00 EDT, Dry Weight Start Date: 11/15/21 Status: Ordered baclofen 20 mg oral tablet 20 mg, 1, tablet, By Mouth, 4 times a day, # 120 tablet, Refills 5, Tot. Refills 5, Maintenance, 10/26/21 9:45:00 EDT, Route to Pharmacy Electronically, [facility]/pharmacy #[id number], 193, cm, 10/26/21 9:21:00 EDT, Height, [...] 0 Refills, Maintenance, 04/06/20 16:11:00 EST, Gel, [facility]/pharmacy #[id number], Partial fill upon patient request, 1 [...] a day, # 60 tablet, 11 Refills, [facility], 193, cm, 10/26/21 9:21:00 EDT, Height, 97.2, kg, 10/26/21 9:21:00 EDT, Dry Weight Start Date: 11/30/21 Status: Ordered folic acid 1 mg oral tablet 1, tablet, By Mouth, Daily, # 30 tablet, Refills 11, Tot. Refills 0, Maintenance, 11/22/20 8:13:00 EDT, Route to Pharmacy Electronically, [facility], 187.6, cm, 10/19/20 9:25:00 EDT, Height, 101.4, [...] 04/03/21 14:16:00 EST, [id number], Note bedtime dose change, 193, cm, 03/15/21 16:10:00 EDT, Height, 104.5,... Start Date: 04/03/21 Stop Date: 08/01/21 Status: Ordered metoclopramide 10 mg oral tablet, disintegrating 1 tablet = 10 mg, By Mouth, Every 8 hours, PRN Nausea & Vomiting, # 28 tablet, 0 Refills, Maintenance, 02/24/21 17:09:00 EDT, DIS Tablet, [facility]/pharmacy #[id number], Partial fill upon patient request if [...] 5 Refills, Maintenance, 03/13/21 13:24:00 EDT, ECCapsule, [facility]/pharmacy #[id number], Partial fill upon patient request if [...] 03/15/21 22:43:00 EDT, Route to Pharmacy Electronically, [facility]/pharmacy #[id number], Partial fill upon patient request if the prescription is for a schedule II opioid drJose Cruz. Start Date: 03/15/21 Status: Ordered Right ankle & foot orthosis Right ankle & foot orthosis, See Instructions, # 1 each, Refills 1, Tot. Refills 1, Maintenance, Please dispense 1 right ankle and foot othosis Dx: R29.898, R26.81, M25.373 Length of need: 99 months Number to fax to: [phone], 01/06/21 13:10:00 E... Start Date: 01/06/21 Status: Ordered scopolamine 1 mg/72 hr transdermal film, extended release 1 film, Topically, Every 72 hours, Apply to right mastoid bone, # 10 each, 1 Refills, Acute 07/13/22 10:00:00 EST, 07/12/21 16:55:00 EST, [facility]/pharmacy #[id number], Partial fill upon patient request if the prescription is for a schedule II opioid drug., 1 fi... Start Date: 07/12/21 Stop Date: 07/13/22 Status: Ordered scopolamine 1 mg/72 hr transdermal film, extended release 1 film, Topically, Every 72 hours, Apply to right mastoid bone, # 24 each, 1 Refills, Maintenance, 07/13/22 10:00:00 EST, [facility]/pharmacy #[id number], Partial fill upon patient request if the prescription is for a schedule II opioid drug., 1 film Topically Lucía... Start Date: 07/13/22 Status: Ordered tiZANidine 2 mg oral tablet See Instructions, 1 tablet by mouth twice a day, # 60 tablet, Refills 3, Tot. Refills 3, Maintenance, 12/13/21 16:11:00 EDT, Instructions Replace Required Details, Route to Pharmacy Electronically, [facility]/pharmacy #[id number], Partial fill upon patient request... Start [...] Refills, Maintenance, 11/22/20 8:13:00 EDT, [facility], 187.6, cm, 10/19/20 9:25:00 EDT, Height, 101.4, [...] recent to oldest [Reference Range]: 1 Height 193 cm (12/13/21 3:21 PM) Weight 93.7 kg (12/13/21 3:21 PM) Oxygen Saturation [94-100 %] 99 % (12/13/21 3:21 PM) Pulse Rate [55-90 bpm] 59 bpm (12/13/21 3:21 PM) Body Mass Index [18.5-24.99] 25.16 *H* (12/13/21 3:21 PM) Blood Pressure [90-138/55-84 mm Hg] 120/ 63mm Hg (12/13/21 3:21 PM) Blood pressure sites Arm, left (12/13/21 3:21 PM) Social History Social History Type Response Smoking Status 10 or more cigarette s (1/2 pack or more)/day in last 30 days entered on: 02/29/20 Sex
--- OUTSIDE RECORDS SUMMARY | 2023-02-03 22:22 | XMS_ITS | Continuity of Care Document ---
Author Name Unknown Organization [facility] Address [address] [facility] [address] [place] [address]- Care Team Providers Care Kid Club Attendant Name Role Phone Derek Tomas MD Primary Care Physician Encounter [facility] Date(s): 09/13/22 - 09/20/22 [facility] [address] [place] [address]- Attending Physician: Shaun Gallegos MD Allergies, Adverse Reactions, Alerts No Known [...] Mouth, Daily, # 30 tablet, 11 Refills, [facility], 193, cm, 10/26/21 9:21:00 EDT,Height, 97.2, kg, 10/26/21 9:21:00 EDT, Dry Weight Start Date: 11/15/21 Status: Ordered baclofen 20 mg oral tablet 20 mg, 1, tablet, By Mouth, 4 times a day, # 120 tablet, Refills 5, Tot. Refills 5, Maintenance, 10/26/21 9:45:00 EDT, Route to Pharmacy Electronically, [facility]/pharmacy #[id number], 193, cm, 10/26/21 9:21:00 EDT, Height, 97.2, kg, 10/26/21 9:21:00 EDT, Dry Weight Start Date: 10/26/21 Status: Ordered Botox 100 units injection See Instructions, 400 units total for MD to inject., # 1 kit, 3 Refills, Maintenance, 09/16/22 15:22:00 EDT Start Date: 09/16/22 Status: Ordered Diapers, adult extra Large Diapers, adult extra Large, See Instructions, # 60 each, Refills 11, Tot. 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 L73.2 Please mike Wilson, 08/13/22 16:58:00 EDT, Supply Start Date: 08/13/22 Status: Ordered duloxetine 30 mg oral enteric coated capsule 1 capsule, By Mouth, Daily, # 30 capsule, 5 Refills, Maintenance, 08/17/22 15:25:00 EDT, [facility], 193.04, cm, 07/23/22 14:07:00 EDT, Height, 99.6, kg, 06/06/22 18:00:00 EST, Dry Weight Start Date: 08/17/22 Status: Ordered Eliquis 5 mg oral tablet 1 tablet, By Mouth, 2 times a day, # 60 tablet, 11 Refills, 02/07/22 11:13:00 EDT, [facility]/pharmacy #1, 193, cm, 02/07/22 10:31:00 EDT, Height, 97.2, kg, 10/26/21 9:21:00 EDT, Dry Weight Start Date: 02/07/22 Status: Ordered ferrous sulfate 325 mg oral tablet TAKE 1 TABLET BY MOUTH EVERY DAY NEEDED Start Date: 09/12/22 Status: Ordered FLUoxetine 20 mg oral capsule 1, capsule, By Mouth, Daily, # 30 capsule, Refills 14, Maintenance, 08/13/22 15:55:00 EDT, Route toPharmacy Electronically, [facility], 193.04, cm, 07/23/22 14:07:00 EDT, Height, 99.6, [...] 02/22/22 9:42:00 EDT, Route to Pharmacy Electronically, [facility], 193, cm, 02/07/22 10:31:00 EDT, Height, 97.2, [...] capsule, 5 Refills, Maintenance, 08/13/22 15:28:00 EDT, [facility]/pharmacy #2071, 193.04, cm, 07/23/22 14:07:00 EDT, Height, 99.6, kg, 06/06/22 18:00:00 EST, Dry Weight Start Date: 08/13/22 Status: Ordered oxycodone 15 mg oral tablet, extended release 1 tablet = 15 mg, By Mouth, Every 12 hours, # 60 tablet, 0 Refills, Maintenance, 09/07/22 10:23:00 EDT, ER Tablet, [facility]/pharmacy #1130, Partial fill upon patient request if the prescription is for a schedule II opioid drug., 193.04, cm, 07/23/22 14:07:... Start Date: 09/07/22 Status: Ordered Right ankle & foot orthosis Right ankle & foot orthosis, See Instructions, # 1 each, Refills 1, Tot. Refills 1, Maintenance, Please dispense 1 right ankle and foot othosis Dx: R29.898, R26.81, M25.373 Length of need: 99 months Number to fax to: [phone], 01/06/21 13:10:00 E... Start Date: 01/06/21 Status: Ordered scopolamine 1 mg/72 hr transdermal film, extended release See Instructions, APPLY 1 PATCH TO RIGHT MASTOID BONE EVERY 72 HOURS, # 10 each, 3 Refills, Maintenance, 06/29/22 11:46:00 EST, [facility]/pharmacy #[id number], APPLY 1 PATCH TO RIGHT MASTOID BONE EVERY 72 HOURS,193.04, cm, 06/29/22 11:17:00 EST, Height, 99.6, kg... 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 [facility] CP Care Management, It Generalist Carmen Elizabeth [phone] Confirmed Active Therapeutic drug monitoring Confirmed Active Peripheral neuropathy Confirmed Active Spasticity Confirmed Active Tobacco dependence Confirmed Active Vital Signs Most recent to oldest [Reference Range]: 1 Height 193.04 cm (09/13/22 10:10 AM) Weight 90.6 kg (09/13/22 10:10 AM) Oxygen Saturation [94-100 %] 99 % (09/13/22 10:10 AM) Pulse Rate [55-90 bpm] 92 bpm *H* (09/13/22 10:10 AM) Body Mass Index [18.5-24.99 kg/m2] 24.31 kg/m2 (09/13/22 10:10 AM) Blood Pressure [90-138/55-84 mm Hg] 121/ 74mm Hg (09/13/22 10:10 AM) Blood pressure sites Arm, left (09/13/22 10:10 AM) Weight Obtained Via Bed scale (09/13/22 10:10 AM) Social History Social History Type Response Smoking Status 5-9 cigarettes (betw een 1/4 to 1/2 pack)/day in last 30 days entered on: 05/16/22 Sex Patient Care team information Care Team Personnel Name: Areli Pittman RN Position: S ED RN W/OE and Tasks Member Role: Primary Care Nurse Name: Bettye Carney Position: S RN Member Role: Primary Care Nurse Name: Derek Tomas MD Position: [facility] Resident Member Role: PCP Address: Address: [address] [place] [address]- Name: Ally Boyd RN Position: [facility] RN Member Role: Primary Care Nurse Name: Axel Savage RN Position: [facility] RN Member Role: Primary Care Nurse Name: Filemon King RN Position: [facility] RN Member Role: Primary Care Nurse Name: Glenys Fox RN Position: [facility] RN Member Role: Primary Care Nurse Care Team Related Persons Name: BEVERLY REYNAGA Address: [address] [place] [address] Name: AISLINN DE LA PAZ Address: home [address] [place] [address]
--- OUTSIDE RECORDS SUMMARY | 2023-02-03 22:22 | XMS_ITS | Continuity of Care Document ---
Author Name Unknown Organization [facility] Address [address] [place] [id number]- Care Team Providers Care Doctor Of Osteopathy Name Role Phone Derek Tomas MD Primary Care Physician Encounter 11/26/22 - 12/24/22 [facility] [address] [place] [address]- Discharge Disposition: CLIENT NO LONGER REQUIRES SKILLED CARE Allergies, Adverse Reactions, Alerts No Known Allergies [...] oral tablet 1 tablet, By Mouth, Daily, for 30 days, # 30 tablet, 11 Refills, Physician Stop 12/08/23 11:18:00 EDT, 12/13/22 11:18:00 EDT, [facility]/pharmacy #1130, 193.04, cm, 12/13/22 10:25:00 EDT, Height, 99.6, kg, 06/06/22 18:00:00 EST, Dry Weight Start Date: 12/13/22 Stop Date: 12/08/23 Status: Ordered baclofen 20 mg oral tablet 20 mg, 1, tablet, By Mouth, 4 times a day, # 120 tablet, Refills 5, Tot. Refills 5, Maintenance, 10/26/21 9:45:00 EDT, Route to Pharmacy Electronically, [facility]/pharmacy #[id number], 193, cm, 10/26/21 9:21:00 EDT, [...] capsule, 5 Refills, Maintenance, 08/17/22 15:25:00 EDT, [facility] STORE 30769, 193.04, cm, 07/23/22 14:07:00 EDT, Height, 99.6, kg, 06/06/22 18:00:00 EST, Dry Weight Start Date: 08/17/22 Status: Ordered Eliquis 5 mg oral tablet 1 tablet, By Mouth, 2 times a day, # 60 tablet, 11 Refills, 02/07/22 11:13:00 EDT, [facility]/pharmacy #[id number], 193, cm, 02/07/22 10:31:00 EDT, Height, 97.2, kg, 10/26/21 9:21:00 EDT, Dry Weight Start Date: 02/07/22 Status: Ordered ferrous sulfate 325 mg oral tablet TAKE 1 TABLET BY MOUTH EVERY DAY NEEDED Start Date: 09/12/22 Status: Ordered FLUoxetine 20 mg oral capsule 1, capsule, By Mouth, Daily, # 30 capsule, Refills 14, Maintenance, 08/13/22 15:55:00 EDT, Route toPharmacy Electronically, [facility] 55195, 193.04, cm, 07/23/22 14:07:00 EDT, Height, 99.6, [...] 02/22/22 9:42:00 EDT, Route to Pharmacy Electronically, [facility]ORE 30976, 193, cm, 02/07/22 10:31:00 EDT, Height, 97.2, [...] A WEEK Start Date: 09/12/22 Status: Ordered morphine 15 mg oral tablet, immediate release 1 tablet = 15 mg, By Mouth, Every 6 hours, PRN as needed for pain, for 30 days, # 120 tablet, 0 Refills, Acute 01/20/23 22:14:00 EDT, 12/21/22 22:14:00 EDT, Tablet, [facility], Partial fill upon patient request if the prescription is for... Start Date: 12/21/22 Stop Date: 01/20/23 Status: Ordered omeprazole 40 mg oral enteric coated capsule 1 capsule, By Mouth, Daily, # 30 capsule, 5 Refills, Maintenance, 08/13/22 15:28:00 EDT, [facility]/pharmacy #[id number], 193.04, cm, 07/23/22 14:07:00 EDT, Height, 99.6, kg, 06/06/22 18:00:00 EST, Dry Weight Start Date: 08/13/22 Status: Ordered Right ankle & foot orthosis Right ankle & foot orthosis, See Instructions, # 1 each, Refills 1, Tot. Refills 1, Maintenance, Please dispense 1 right ankle and foot othosis Dx: R29.898, R26.81, M25.373 Length of need: 99 months Number to fax to: [phone], 01/06/21 13:10:00 E... Start Date: 01/06/21 Status: Ordered scopolamine 1 mg/72 hr transdermal film, extended release See Instructions, APPLY 1 PATCH TO RIGHT MASTOID BONE EVERY 72 HOURS, # 10 each, 3 Refills, Maintenance, 06/29/22 11:46:00 EST, [facility]/pharmacy #[id number], APPLY 1 PATCH TO RIGHT MASTOID BONE EVERY 72 HOURS,193.04, cm, 06/29/22 11:17:00 EST, Height, 99.6, kg... Start Date: 06/29/22 Status: Ordered scopolamine 1 mg/72 hr transdermal film, extended release 1 film, Topically, Every 72 hours, Apply to right mastoid bone, # 10 patch, 0 Refills, Maintenance,12/13/22 11:53:00 EDT, [facility]/pharmacy #1130, Partial fill upon patient request if the prescription isfor a schedule II opioid drug., 1 film Topically Ev... Start Date: 12/13/22 Status: Ordered tiZANidine 4 mg oral tablet See Instructions, Start by taking half a tablet By Mouth Daily 3x/day and increase as per written instructions, # 90 tablet, Refills 3, Tot. Refills 3, Maintenance, 12/13/22 11:18:00 EDT, Instructions Replace Required Details, Route to Pharmacy Electr... Start Date: 12/13/22 Status: Ordered transfer tub bench transfer tub [...] 05/20/22 19:50:00 EST, Route to Pharmacy Electronically, [facility]/pharmacy #[id number], Partial fill upon patient request if the [...] apex Confirmed Active BHN CP Care Management, Billing Auditor Carmen Elizabeth [phone] Confirmed Active Therapeutic drug monitoring Confirmed Active Peripheral neuropathy Confirmed Active Spasticity Confirmed Active Tobacco dependence Confirmed Active Social History Social History Type Response Smoking Status 5-9 cigarettes (betw een 1/4 to 1/2 pack)/day in last 30 days entered on: 05/16/22 Sex Patient Care team information Care Team Personnel Name: Areli Pittman RN Position: [facility] ED RN W/OE and Tasks Member Role: Primary Care Nurse Name: Derek Tomas MD Position: [facility] Resident Member Role: PCP Address: Address: [address] [place] [address]- Name: Ally Boyd RN Position: S RN Member Role: Primary Care Nurse Name: Axel Savage RN Position: [facility] RN Member Role: Primary Care Nurse Name: Filemon King RN Position: S RN Member Role: Primary Care Nurse Name: Glenys Fox RN Position: S RN Member Role: Primary Care Nurse Care Team Related Persons Name: JUHI BEVERLY Address: home [address] [place] [address] Name: AISLINN DE LA PAZ Address: home [address] [place] [address]
--- OUTSIDE RECORDS SUMMARY | 2023-02-03 22:22 | XMS_ITS | Continuity of Care Document ---
Author Name Unknown Organization [facility] Address [address] [place] [address]- Care Team Providers Care Plastic Technician Name Role Phone Judie Mills DO Primary Care Physician [phone] Encounter [facility] Date(s): 11/29/20 - 12/29/[address] [address] Allergies, Adverse Reactions, Alerts Substance Reaction Severity [...] 8:13:00 EDT, Route to Pharmacy Electronically, [facility] STORE 36527, 187.6, cm, 10/19/20 9:25:00 EDT, Height, 101.4, kg, 08/27/20 1:59:00 EDT, Dry Weight Start Date: 11/22/20 Status: Ordered gabapentin 100 mg oral capsule 100 mg, 1, capsule, By Mouth, 3 times a day, # 90 capsule, Refills 11, Tot. Refills 11, Maintenance, 11/02/20 17:57:00 EDT, Route to Pharmacy Electronically, [facility]/pharmacy #[id number], Partial fill upon patient request if the [...] 15:58:00 EDT, Route to Pharmacy Electronically, [facility]/pharmacy #[id number], Partial fill upon patient request if the [...] Refills, Maintenance, 11/22/20 8:13:00 EDT, [facility], 187.6, cm, 10/19/20 9:25:00 EDT, Height, 101.4, [...]
--- OUTSIDE RECORDS SUMMARY | 2023-02-03 22:23 | XMS_ITS | Continuity of Care Document ---
Author Name Unknown Organization [facility] Address [address] [place] [address]- Care Team Providers Care Day Care Supervisor Name Role Phone Judie Mills DO Primary Care Physician Encounter [facility] Date(s): 11/01/20 - 12/01/[address] [address] Allergies, Adverse Reactions, Alerts Substance Reaction Severity Status NKA Active Medications amLODIPine 5 mg oral tablet 5 mg, 1, tablet, By Mouth, Daily, # 30 tablet, Refills 11, Tot. Refills 11, Maintenance, 10/31/20 12:56:00 EDT, Route to Pharmacy Electronically, [facility]/pharmacy #[id number], Partial fill upon patient requestif [...] 11/22/20 8:13:00 EDT, Route to Pharmacy Electronically, [facility] STORE 10676, 187.6, cm, 10/19/20 9:25:00 EDT, Height, 101.4, kg, 08/27/20 1:59:00 EDT, Dry Weight Start Date: 11/22/20 Status: Ordered gabapentin 100 mg oral capsule 100 mg, 1, capsule, By Mouth, 3 times a day, # 90 capsule, Refills 11, Tot. Refills 11, Maintenance, 11/02/20 17:57:00 EDT, Route to Pharmacy Electronically, [facility]/pharmacy #3101, Partial fill upon patient request if the [...] 11/25/20 15:58:00 EDT, Route to Pharmacy Electronically, [facility]/pharmacy #8808, Partial fill upon patient request if the [...] Refills, Maintenance, 11/22/20 8:13:00 EDT, [facility], 187.6, cm, 10/19/20 9:25:00 EDT, Height, 101.4, [...]
--- OUTSIDE RECORDS SUMMARY | 2023-02-03 22:23 | XMS_ITS | Continuity of Care Document ---
Author Name Unknown Organization [facility] Address [address] [place] [address]- Care Team Providers Care Assistant Director Of Plant Operations Name Role Phone Judie Mills DO Primary Care Physician Encounter [facility] Date(s): 12/15/20 - 01/14/[address] [address] Allergies, Adverse Reactions, Alerts Substance Reaction [...] 11/22/20 8:13:00 EDT, Route to Pharmacy Electronically, [facility] STORE 51337, 187.6, cm, 10/19/20 9:25:00 EDT, Height, 101.4, kg, 08/27/20 1:59:00 EDT, Dry Weight Start Date: 11/22/20 Status: Ordered gabapentin 100 mg oral capsule 100 mg, 1, capsule, By Mouth, 3 times a day, # 90 capsule, Refills 11, Tot. Refills 11, Maintenance, 11/02/20 17:57:00 EDT, Route to Pharmacy Electronically, [facility]/pharmacy #9326, Partial fill upon patient request if the [...] Date: 11/25/20 Stop Date: 03/25/21 Status: Ordered Right ankle & foot orthosis Right ankle & foot orthosis, See Instructions, # 1 each, Refills 1, Tot. Refills 1, Maintenance, Please dispense 1 right ankle and foot othosis Dx: R29.898, R26.81, M25.373 Length of need: 99 months Number to fax to: [phone], 01/06/21 13:10:00 E... Start Date: 01/06/21 Status: Ordered SEROquel 25 mg oral tablet 25 mg, 1, tablet, By Mouth, 2 times a day, # 60 tablet, Refills 3, Tot. Refills 3, Maintenance, 11/25/20 15:58:00 EDT, Route to Pharmacy Electronically, [facility]/pharmacy #[id number], Partial fill upon patient request if the [...] Refills, Maintenance, 11/22/20 8:13:00 EDT, [facility], 187.6, cm, 10/19/20 9:25:00 EDT, Height, 101.4, [...]
--- OUTSIDE RECORDS SUMMARY | 2023-02-03 22:23 | XMS_ITS | Continuity of Care Document ---
Author Name Unknown Organization [facility] Address [address] [place] [address]- Care Team Providers Care Industrial Energy Engineer Name Role Phone Judie Mills DO Primary Care Physician Encounter [facility] Date(s): 11/11/20 - 12/15/[address] [address] Attending Physician: Mariza Mao MD Admitting Physician: Mariza Mao MD Referring Physician: Mariza Mao MD Allergies, Adverse Reactions, Alerts Substance Reaction Severity Status NKA Active Medications amLODIPine 5 mg oral tablet 5 mg, 1, tablet, By Mouth, Daily, # 30 tablet, Refills 11, Tot. Refills 11, Maintenance, 10/31/20 12:56:00 EDT, Route to Pharmacy Electronically, [facility]/pharmacy #[id number], Partial fill upon patient [...] 11/22/20 8:13:00 EDT, Route to Pharmacy Electronically, [facility] STORE 51894, 187.6, cm, 10/19/20 9:25:00 EDT, Height, 101.4, kg, 08/27/20 1:59:00 EDT, Dry Weight Start Date: 11/22/20 Status: Ordered gabapentin 100 mg oral capsule 100 mg, 1, capsule, By Mouth, 3 times a day, # 90 capsule, Refills 11, Tot. Refills 11, Maintenance, 11/02/20 17:57:00 EDT, Route to Pharmacy Electronically, [facility]/pharmacy #[id number], Partial fill upon patient request if the [...] 11/25/20 15:58:00 EDT, Route to Pharmacy Electronically, [facility]/pharmacy #[id number], Partial fill upon patient [...] Refills, Maintenance, 11/22/20 8:13:00 EDT, [facility], 187.6, cm, 10/19/20 9:25:00 EDT, Height, 101.4, [...]
--- OUTSIDE RECORDS SUMMARY | 2023-02-03 22:23 | XMS_ITS | Continuity of Care Document ---
Author Name Unknown Organization [facility] Address [address] [place] [address]- Care Team Providers Care Utility Worker Production Name Role Phone Derek Tomas MD Primary Care Physician Encounter [facility] Date(s): 09/26/22 - 10/26/[address] [address]- Allergies, Adverse Reactions, Alerts No Known Allergies [...] # 30 tablet, 11 Refills, [facility], 193, cm, 10/26/21 9:21:00 EDT,Height, 97.2, kg, 10/26/21 9:21:00 EDT, Dry Weight Start Date: 11/15/21 Status: Ordered baclofen 20 mg oral tablet 20 mg, 1, tablet, By Mouth, 4 times a day, # 120 tablet, Refills 5, Tot. Refills 5, Maintenance, 10/26/21 9:45:00 EDT, Route to Pharmacy Electronically, [facility]/pharmacy #[id number], 193, cm, 10/26/21 9:21:00 EDT, Height, 97.2, kg, 10/26/21 9:21:00 EDT, Dry Weight Start Date: 10/26/21 Status: Ordered Botox 100 units injection See Instructions, 400 units total for MD to inject., # 1 kit, 3 Refills, Maintenance, 09/16/22 15:22:00 EDT Start Date: 09/16/22 Status: Ordered CHUX CHUX, See Instructions, # 60 each, Refills 11, Tot. Refills 11, Maintenance, 2 per day, 09/28/22 17:50:00 EDT, Supply Start Date: 09/28/22 Status: Ordered Diapers, adult extra Large Diapers, adult extra Large, See Instructions, # 60 each, Refills 11, Tot. 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 L73.2 Please mike Wilson, 09/28/22 17:53:00 EDT, Supply Start Date: 09/28/22 Status: Ordered duloxetine 30 mg oral enteric coated capsule 1 capsule, By Mouth, Daily, # 30 capsule, 5 Refills, Maintenance, 08/17/22 15:25:00 EDT, [facility] STORE 82883, 193.04, cm, 07/23/22 14:07:00 EDT, Height, 99.6, kg, 06/06/22 18:00:00 EST, Dry Weight Start Date: 08/17/22 Status: Ordered Eliquis 5 mg oral tablet 1 tablet, By Mouth, 2 times a day, # 60 tablet, 11 Refills, 02/07/22 11:13:00 EDT, [facility]/pharmacy #[id number], 193, cm, 02/07/22 10:31:00 EDT, Height, 97.2, kg, 10/26/21 9:21:00 EDT, Dry Weight Start Date: 02/07/22 Status: Ordered ferrous sulfate 325 mg oral tablet TAKE 1 TABLET BY MOUTH EVERY DAY NEEDED Start Date: 09/12/22 Status: Ordered FLUoxetine 20 mg oral capsule 1, capsule, By Mouth, Daily, # 30 capsule, Refills 14, Maintenance, 08/13/22 15:55:00 EDT, Route toPharmacy Electronically, [facility] 50385, 193.04, cm, 07/23/22 14:07:00 EDT, Height, 99.6, [...] 02/22/22 9:42:00 EDT, Route to Pharmacy Electronically, [facility] 81188, 193, cm, 02/07/22 10:31:00 EDT, Height, 97.2, [...] capsule, 5 Refills, Maintenance, 08/13/22 15:28:00 EDT, [facility]/pharmacy #2071, 193.04, cm, 07/23/22 14:07:00 EDT, Height, 99.6, kg, 06/06/22 18:00:00 EST, Dry Weight Start Date: 08/13/22 Status: Ordered oxycodone 15 mg oral tablet, extended release 1 tablet = 15 mg, By Mouth, Every 12 hours, # 60 tablet, 0 Refills, Maintenance, 10/16/22 16:53:00 EDT, ER Tablet, [facility]/pharmacy #1130, Partial fill upon patient request if [...] need: 99 months Number to fax to: [phone], 01/06/21 13:10:00 E... Start Date: 01/06/21 Status: Ordered scopolamine 1 mg/72 hr transdermal film, extended release See Instructions, APPLY 1 PATCH TO RIGHT MASTOID BONE EVERY 72 HOURS, # 10 each, 3 Refills, Maintenance, 06/29/22 11:46:00 EST, [facility]/pharmacy #[id number], APPLY 1 PATCH TO RIGHT MASTOID BONE EVERY 72 HOURS,193.04, cm, 06/29/22 11:17:00 EST, Height, 99.6, kg... Start Date: 06/29/22 Status: Ordered scopolamine 1 mg/72 hr transdermal film, extended release 1 film, Topically, Every 72 hours, Apply to right mastoid bone, # 24 each, 1 Refills, Maintenance, 07/13/22 10:00:00 EST, [facility]/pharmacy #[id number], Partial fill upon patient [...] 05/20/22 19:50:00 EST, Route to Pharmacy Electronically, [facility]/pharmacy #[id number], Partial fill upon patient request if the [...] apex Confirmed Active N CP Care Management, Airport Operations Duty Manager Carmen Elizabeth [phone] Confirmed Active Therapeutic drug monitoring Confirmed Active [...] Care Nurse Name: Derek Tomas MD Position: [facility] Resident Member Role: PCP Address: Address: [address] [place] [address]- Name: Ally Boyd RN Position: [facility] RN Member Role: Primary Care Nurse Name: Axel Savage RN Position: [facility] RN Member Role: Primary Care Nurse Name: Filemon King RN Position: S RN Member Role: Primary Care Nurse Name: Glenys Fox RN Position: [facility] RN Member Role: Primary Care Nurse Care Team Related Persons Name: BEVERLY REYNAGA Address: home [address] [place] [address] Name: AISLINN DE LA PAZ Address: [address] [address]
--- OUTSIDE RECORDS SUMMARY | 2023-02-03 22:23 | XMS_ITS | Continuity of Care Document ---
Author Name Unknown Organization [facility] Address [address] [place] [address]- Care Team Providers Care Shop Router Name Role Phone Derek Tomas MD Primary Care Physician Encounter 05/19/22 - 11/14/22 [facility] [address] [place] [address]- Discharge Disposition: CLIENT NO LONGER REQUIRES SKILLED [...] Mouth, Daily, # 30 tablet, 11 Refills, [facility] STORE 39805, 193, cm, 10/26/21 9:21:00 EDT,Height, 97.2, kg, 10/26/21 9:21:00 EDT, Dry Weight Start Date: 11/15/21 Status: Ordered baclofen 20 mg oral tablet 20 mg, 1, tablet, By Mouth, 4 times a day, # 120 tablet, Refills 5, Tot. Refills 5, Maintenance, 10/26/21 9:45:00 EDT, Route to Pharmacy Electronically, [facility]/pharmacy #[id number], 193, cm, 10/26/21 9:21:00 EDT, [...] capsule, 5 Refills, Maintenance, 08/17/22 15:25:00 EDT, [facility] STORE 32439, 193.04, cm, 07/23/22 14:07:00 EDT, Height, 99.6, kg, 06/06/22 18:00:00 EST, Dry Weight Start Date: 08/17/22 Status: Ordered Eliquis 5 mg oral tablet 1 tablet, By Mouth, 2 times a day, # 60 tablet, 11 Refills, 02/07/22 11:13:00 EDT, [facility]/pharmacy #[id number], 193, cm, 02/07/22 10:31:00 EDT, Height, 97.2, kg, 10/26/21 9:21:00 EDT, Dry Weight Start Date: 02/07/22 Status: Ordered ferrous sulfate 325 mg oral tablet TAKE 1 TABLET BY MOUTH EVERY DAY NEEDED Start Date: 09/12/22 Status: Ordered FLUoxetine 20 mg oral capsule 1, capsule, By Mouth, Daily, # 30 capsule, Refills 14, Maintenance, 08/13/22 15:55:00 EDT, Route toPharmacy Electronically, [facility] 98373, 193.04, cm, 07/23/22 14:07:00 EDT, Height, 99.6, [...] 02/22/22 9:42:00 EDT, Route to Pharmacy Electronically, [facility] 14494, 193, cm, 02/07/22 10:31:00 EDT, Height, 97.2, [...] capsule, 5 Refills, Maintenance, 08/13/22 15:28:00 EDT, [facility]/pharmacy #[id number], 193.04, cm, 07/23/22 14:07:00 EDT, Height, 99.6, kg, 06/06/22 18:00:00 EST, Dry Weight Start Date: 08/13/22 Status: Ordered oxycodone 15 mg oral tablet, extended release 1 tablet = 15 mg, By Mouth, Every 12 hours, # 60 tablet, 0 Refills, Maintenance, 10/16/22 16:53:00 EDT, ER Tablet, [facility]/pharmacy #1130, Partial fill upon patient request [...] need: 99 months Number to fax to: [phone], 01/06/21 13:10:00 E... Start Date: 01/06/21 Status: Ordered scopolamine 1 mg/72 hr transdermal film, extended release See Instructions, APPLY 1 PATCH TO RIGHT MASTOID BONE EVERY 72 HOURS, # 10 each, 3 Refills, Maintenance, 06/29/22 11:46:00 EST, [facility]/pharmacy #[id number], APPLY 1 PATCH TO RIGHT MASTOID BONE EVERY 72 HOURS,193.04, cm, 06/29/22 11:17:00 EST, Height, 99.6, kg... Start Date: 06/29/22 Status: Ordered scopolamine 1 mg/72 hr transdermal film, extended release 1 film, Topically, Every 72 hours, Apply to right mastoid bone, # 24 each, 1 Refills, Maintenance, 07/13/22 10:00:00 EST, [facility]/pharmacy #[id number], Partial fill upon patient request [...] 05/20/22 19:50:00 EST, Route to Pharmacy Electronically, [facility]/pharmacy #[id number], Partial fill upon patient request if the [...] apex Confirmed Active N CP Care Management, Transplanter Carmen Elizabeth [phone] Confirmed Active Therapeutic drug monitoring Confirmed Active Peripheral neuropathy Confirmed Active Spasticity Confirmed Active Tobacco dependence Confirmed Active Social History Social History Type Response Smoking Status 5-9 cigarettes (betw een 1/4 to 1/2 pack)/day in last 30 days entered on: 05/16/22 Sex Patient Care team information Care Team Personnel Name: Areli Pittman RN Position: [facility] ED RN W/OE and Tasks Member Role: Primary Care Nurse Name: Derek Tomas MD Position: [facility] Resident Member Role: PCP Address: Address: [address] [place] [address]- Name: Ally Boyd RN Position: [facility] RN Member Role: Primary Care Nurse Name: Axel Savage RN Position: [facility] RN Member Role: Primary Care Nurse Name: Filemon King RN Position: [facility] RN Member Role: Primary Care Nurse Name: Glenys Fox RN Position: [facility] RN Member Role: Primary Care Nurse Care Team Related Persons Name: BEVERLY REYNAGA Address: home [address] [place] [id number] Name: AISLINN DE LA PAZ Address: [place] [address] [place] [address]
--- OUTSIDE RECORDS SUMMARY | 2023-02-03 22:23 | XMS_ITS | Continuity of Care Document ---
Author Name Unknown Organization [facility] Address [address] [place] [address] [address] [place] [address]- Care Team Providers Care Nutritionists Name Role Phone Derek Tomas MD Primary Care Physician Encounter [facility] Date(s): 05/24/22 - 06/23/22 [facility] [address] [place] [address]- Allergies, Adverse Reactions, Alerts No Known Allergies Immunizations Given and Recorded Vaccine Date Status Refusal Reason influenza virus vaccine, inactivated 05/18/22 Give n tetanus/diphtheria/pertussis, acel(Tdap) 09/13/19 Recorded Medications 3 in 1 commode 3 in 1 commode, See Instructions, # 1 each, Refills 0, Tot. Refills 0, Maintenance, use as needed to prevent fall. Diagnosis: Stroke, Impaired Mobility. ICD10 I63.9, ICDR26.2. for PCP Jacobo Fuchs, 06/21/22 11:23:00 EST, Supply Start Date: 06/21/22 Status: Ordered acitretin 10 mg oral capsule TAKE 1 CAPSULE EVERY OTHER DAY FOR NEXT 2 WEEKS THEN 1 CAPSULE DAILY Start Date: 05/17/22 Status: Ordered amLODIPine 5 mg oral tablet 1 tablet, By Mouth, Daily, # 30 tablet, 11 Refills, [facility] ST[id number], 193, cm, 10/26/21 9:21:00 EDT,Height, 97.2, kg, 10/26/21 9:21:00 EDT, Dry Weight Start Date: 11/15/21 Status: Ordered baclofen 20 mg oral tablet 20 mg, 1, tablet, By Mouth, 4 times a day, # 120 tablet, Refills 5, Tot. Refills 5, Maintenance, 10/26/21 9:45:00 EDT, Route to Pharmacy Electronically, [facility]/pharmacy #[id number], 193, cm, 10/26/21 9:21:00 EDT, Height, 97.2, kg, 10/26/21 9:21:00 EDT, Dry Weight Start Date: 10/26/21 Status: Ordered Eliquis 5 mg oral tablet 1 tablet, By Mouth, 2 times a day, # 60 tablet, 11 Refills, 02/07/22 11:13:00 EDT, [facility]/pharmacy #[id number], 193, cm, 02/07/22 10:31:00 EDT, Height, 97.2, kg, 10/26/21 9:21:00 EDT, Dry Weight Start Date: 02/07/22 Status: Ordered ferrous sulfate 325 mg oral tablet 1 tablet = 325 mg, By Mouth, Daily, PRN as needed Start Date: 05/17/22 Status: Ordered FLUoxetine 20 mg oral capsule See Instructions, TAKE 1 CAPSULE BY MOUTH EVERY DAY, # 30 capsule, Refills 14, Maintenance, 06/11/22 12:04:00 EST, Instructions Replace Required Details, Route to Pharmacy Electronically, [facility] STORE 95539, 193.04, cm, 06/07/22 13:41:00 EST, Height, 99.... Start Date: 06/11/22 Status: Ordered gabapentin 300 mg oral capsule 1, capsule, By Mouth, 3 times a day, # 90 capsule, Refills 5, Maintenance, 02/22/22 9:42:00 EDT, Route to Pharmacy Electronically, [facility] 88609, 193, cm, 02/07/22 10:31:00 EDT, Height, 97.2, kg, 10/26/21 9:21:00 EDT, Dry Weight Start Date: 02/22/22 Status: Ordered omeprazole 40 mg oral enteric coated capsule 1 capsule, By Mouth, Daily, # 30 capsule, 5 Refills, Maintenance, 02/22/22 9:43:00 EDT, [facility] 50866, 193, cm, 02/07/22 10:31:00 EDT, Height, 97.2, kg, 10/26/21 9:21:00 EDT, Dry Weight Start Date: 02/22/22 Status: Ordered Right ankle & foot orthosis Right ankle & foot orthosis, See Instructions, # 1 each, Refills 1, Tot. Refills 1, Maintenance, Please dispense 1 right ankle and foot othosis Dx: R29.898, R26.81, M25.373 Length of need: 99 months Number to fax to: [phone], 01/06/21 13:10:00 E... Start Date: 01/06/21 Status: Ordered scopolamine 1 mg/72 hr transdermal film, extended release 1 film, Topically, Every 72 hours, Apply to right mastoid bone, # 24 each, 1 Refills, Maintenance, 07/13/22 10:00:00 EST, [facility]/pharmacy #[id number], Partial fill upon patient request if the prescription is for a schedule II opioid drug., 1 film Topically Lucía... Start Date: 07/13/22 Status: Ordered tiZANidine 2 mg oral tablet See Instructions, TAKE 1 TABLET BY MOUTH TWICE A DAY, # 60 tablet, Refills 3, Maintenance, 06/11/2311:04:00 EST, Instructions Replace Required Details, Route to Pharmacy Electronically, [facility] STORE 24390, 193.04, cm, 06/07/22 13:41:00 EST, Height, 99.6... Start Date: 06/11/22 Status: Ordered tiZANidine 2 mg oral tablet See Instructions, 1 tablet by mouth twice a day, # 60 tablet, Refills 3, Tot. Refills 3, Maintenance, 06/08/22 14:32:00 EST, Instructions Replace Required Details, Route to Pharmacy Electronically, [facility]/pharmacy #[id number], Partial fill upon patient request... Start Date: 06/08/22 Status: Ordered transfer tub bench transfer tub bench, See Instructions, # 1 each, Refills 0, Tot. Refills 0, Maintenance, use as needed to prevent fall. Diagnosis: Stroke, Impaired Mobility. ICD10 I63.9, ICDR26.2. for PCP Jacobo Fuchs, 06/21/22 11:17:00 EST, Supply Start Date: 06/21/22 Status: Ordered Tylenol 325 mg oral tablet 650 mg, 2, tablet, By Mouth, Every 4 hours, PRN, # 120 tablet, Refills 0, Tot. Refills 0, Acute 05/21/23 19:50:00 EST, for pain, 05/20/22 19:50:00 EST, Route to Pharmacy Electronically, [facility]/pharmacy #[id number], Partial fill upon patient request if the [...] apex Confirmed Active N CP Care Management, Leases And Land Supervisor Carmen Clara [phone] Confirmed Active Therapeutic drug monitoring Confirmed Active Peripheral neuropathy Confirmed Active Spasticity Confirmed Active Tobacco dependence Confirmed Active Social History Social History Type Response Smoking Status 5-9 cigarettes (betw een 1/4 to 1/2 pack)/day in last 30 days entered on: 05/16/22 Sex Patient Care team information Care Team Personnel Name: Areli Pittman RN Position: [facility] ED RN W/OE and Tasks Member Role: Primary Care Nurse Name: Bettye Carney Position: S RN Member Role: Primary Care Nurse Name: Derek Tomas MD Position: [facility] Resident Member Role: PCP Address: Address: [address] [place] [id number] Name: Ally Boyd RN Position: S RN Member Role: Primary Care Nurse Name: Axel Savage RN Position: S RN Member Role: Primary Care Nurse Name: Filemon King RN Position: S RN Member Role: Primary Care Nurse Name: Glenys Fox RN Position: S RN Member Role: Primary Care Nurse Care Team Related Persons Name: JUHI BEVERLY Address: home [address] [place] [id number] Name: AISLINN DE LA PAZ Address: [address] [address]
--- OUTSIDE RECORDS SUMMARY | 2023-02-03 22:23 | XMS_ITS | Continuity of Care Document ---
Author Name Unknown Organization [facility] Address Unknown Care Team Providers Care Ground Surveillance Systems Operator Name Role Phone Judie Mills DO Primary Care Physician [place] [facility] [place] 07/05[place]21 - 08/04/21 [facility] Allergies, Adverse Reactions, Alerts No Known Allergies Immunizations Given and Recorded Vaccine Date Status Refusal Reason tetanus/diphtheria/pertussis, acel(Tdap) 09/13/19 Recorded Medications amLODIPine 5 mg oral tablet 5 mg, 1, tablet, By Mouth, Daily, # 30 tablet, Refills 11, Tot. Refills 11, Maintenance, 10/31/20 12:56:00 EDT, Route to Pharmacy Electronically, [facility]/pharmacy #[id number], Partial fill upon patient requestif the prescription is for a schedule II opioid laura... Start Date: 10/31/20 Status: Ordered apixaban 5 mg oral tablet 1 tablet = 5 mg, By Mouth, 2 times a day, # 60 tablet, 11 Refills, Maintenance, 10/31/20 12:55:00 EDT, Tablet, [facility]/pharmacy #[id number], Partial fill upon patient request if the prescription is for a schedule II opioid drug., 187.6, cm, 10/19/20 9:25:00 EDT... Start Date: 10/31/20 Status: Ordered baclofen 10 mg oral tablet 10 mg, 1, tablet, By Mouth, 3 times a day, # 90 tablet, Refills 5, Tot. Refills 5, Maintenance, 07/12/21 17:17:00 EST, Route to Pharmacy Electronically, [facility]/pharmacy #[id number], Partial fill upon patient request if the prescription is for a schedule II opi... Start Date: 07/12/21 Status: Ordered Botox 100 units injection See Instructions, 400 units for MD to inject. Dx: Spasticity, # 2 kit, 3 Refills, Maintenance, 07/28/21 9:34:00 EDT Start Date: 07/28/21 Status: Ordered clindamycin 1% topical gel 1 application, Topically, 2 times a day, # 60 Gm, 0 Refills, Maintenance, 04/06/20 16:11:00 EST, Gel, [facility]/pharmacy #[id number], Partial fill upon patient request, 1 [...] [facility] ST[facility]39, 187.6, cm, 10/19/20 9:25:00 EDT, Height, 101.4, [...] 04/03/21 14:16:00 EST, Route to Pharmacy Electronically, [facility]/pharmacy #[id number], Note bedtime dose change, 193, cm, 03/15/21 16:10:00 EDT, Height, 104.5,... Start Date: 04/03/21 Stop Date: 08/01/21 Status: Ordered metoclopramide 10 mg oral tablet, disintegrating 1 tablet = 10 mg, By Mouth, Every 8 hours, PRN Nausea & Vomiting, # 28 tablet, 0 Refills, Maintenance, 02/24/21 17:09:00 EDT, DIS Tablet, [facility]/pharmacy #[id number], Partial fill upon patient request if [...] 5 Refills, Maintenance, 03/13/21 13:24:00 EDT, ECCapsule, [facility]/pharmacy #[id number], Partial fill upon patient request if [...] 03/15/21 22:43:00 EDT, Route to Pharmacy Electronically, [facility]/pharmacy #[id number], Partial fill upon patient request if [...] need: 99 months Number to fax to: [phone], 01/06/21 13:10:00 E... Start Date: 01/06/21 Status: Ordered scopolamine 1 mg/72 hr transdermal film, extended release 1 film, Topically, Every 72 hours, Apply to right mastoid bone, # 10 each, 1 Refills, Acute 07/13/22 10:00:00 EST, 07/12/21 16:55:00 EST, [facility]/pharmacy #[id number], Partial fill upon patient request if the prescription is for a schedule II opioid drug., 1 fi... Start Date: 07/12/21 Stop Date: 07/13/22 Status: Ordered Tylenol 325 mg oral tablet [...] tablet, 11 Refills, Maintenance, 11/22/20 8:13:00 EDT, [facility] STORE 95683, 187.6, cm, 10/19/20 9:25:00 EDT, Height, 101.4, [...] Active Wound of buttock(Confirmed) Active Insomnia(Confirmed) Active Tobacco dependence(Confirmed) Active Social History Social History Type Response Smoking Status 10 or more cigarette s (1/2 pack or more)/day in last 30 days entered on: 02/29/20 Sex
--- OUTSIDE RECORDS SUMMARY | 2023-02-03 22:23 | XMS_ITS | Continuity of Care Document ---
Author Name Unknown Organization [facility] Address [address] [place] [id number]- Care Team Providers Care Tubular Stock Glass Bulb Machine Former Name Role Phone Derek Tomas MD Primary Care Physician Encounter [facility] Date(s): 07/17/22 - 08/16/22 [facility] [address] [place] [id number] Attending Physician: Sangeetha Latif Admitting Physician: Admtr, ArShazia Referring Physician: Admtr, Ar8 Allergies, Adverse Reactions, [...] Mouth, Daily, # 30 tablet, 11 Refills, [facility] ST[facility]94, 193, cm, 10/26/21 9:21:00 EDT,Height, 97.2, kg, 10/26/21 9:21:00 EDT, Dry Weight Start Date: 11/15/21 Status: Ordered baclofen 20 mg oral tablet 20 mg, 1, tablet, By Mouth, 4 times a day, # 120 tablet, Refills 5, Tot. Refills 5, Maintenance, 10/26/21 9:45:00 EDT, Route to Pharmacy Electronically, [facility]/pharmacy #[id number], 193, cm, 10/26/21 9:21:00 [...] 1 Refills, Maintenance, 06/29/22 11:48:00 EST, ECCapsule, [facility]/pharmacy #[id number], Partial fill upon patient request if the prescription is for a schedule II opioid drug., 193.04, cm, 06/29/22 11:17:00 EST... Start Date: 06/29/22 Status: Ordered Eliquis 5 mg oral tablet 1 tablet, By Mouth, 2 times a day, # 60 tablet, 11 Refills, 02/07/22 11:13:00 EDT, [facility]/pharmacy #[id number], 193, cm, 02/07/22 10:31:00 [...] Maintenance, 08/13/22 15:55:00 EDT, Route toPharmacy Electronically, [facility] ST[facility] 10884, 193.04, cm, 07/23/22 14:07:00 EDT, Height, 99.6, kg, 06/06/22 18:00:00 EST, Dry Weight Start Date: 08/13/22 Status: Ordered gabapentin 300 mg oral capsule 1, capsule, By Mouth, 3 times a day, # 90 capsule, Refills 5, Maintenance, 02/22/22 9:42:00 EDT, Route to Pharmacy Electronically, [facility] ST[facility] 01374, 193, cm, 02/07/22 10:31:00 EDT, Height, 97.2, [...] capsule, 5 Refills, Maintenance, 08/13/22 15:28:00 EDT, [facility]/pharmacy #[id number], 193.04, cm, 07/23/22 14:07:00 EDT, Height, 99.6, kg, 06/06/22 18:00:00 EST, Dry Weight Start Date: 08/13/22 Status: Ordered oxycodone 15 mg oral tablet, extended release 1 tablet = 15 mg, By Mouth, Every 12 hours, # 60 tablet, 0 Refills, Maintenance, 07/23/22 14:17:00 EDT, ER Tablet, [facility]/pharmacy #1130, Partial fill upon patient [...] need: 99 months Number to fax to: [phone], 01/06/21 13:10:00 E... Start Date: 01/06/21 Status: Ordered scopolamine 1 mg/72 hr transdermal film, extended release See Instructions, APPLY 1 PATCH TO RIGHT MASTOID BONE EVERY 72 HOURS, # 10 each, 3 Refills, Maintenance, 06/29/22 11:46:00 EST, [facility]/pharmacy #[id number], APPLY 1 PATCH TO RIGHT MASTOID BONE EVERY 72 HOURS,193.04, cm, 06/29/22 11:17:00 EST, Height, 99.6, kg... Start Date: 06/29/22 Status: Ordered scopolamine 1 mg/72 hr transdermal film, extended release 1 film, Topically, Every 72 hours, Apply to right mastoid bone, # 24 each, 1 Refills, Maintenance, 07/13/22 10:00:00 EST, [facility]/pharmacy #[id number], Partial fill upon patient request if the prescription is for a schedule II opioid drug., 1 film Topically Lucía... Start Date: 07/13/22 Status: Ordered tiZANidine 2 mg oral tablet See Instructions, TAKE 1 TABLET BY MOUTH three times A DAY, # 90 tablet, Refills 6, Tot. Refills 6,Maintenance, 07/04/22 12:44:00 EST, Instructions Replace Required Details, Route to Pharmacy Electronically, [facility]/pharmacy #1130, 193.04, cm, 07/04/22... Start Date: 07/04/22 [...] 05/20/22 19:50:00 EST, Route to Pharmacy Electronically, [facility]/pharmacy #[id number], Partial fill upon patient request if the [...] apex Confirmed Active N CP Care Management, Oil Treater Carmen Elizabeth [phone] Confirmed Active Therapeutic drug monitoring Confirmed Active Peripheral neuropathy Confirmed Active Spasticity Confirmed Active Tobacco dependence Confirmed Active Social History Social History Type Response Smoking Status 5-9 cigarettes (betw een 1/4 to 1/2 pack)/day in last 30 days entered on: 05/16/22 Sex Patient Care team information Care Team Personnel Name: Areli Pittman RN Position: [facility] ED RN W/OE and Tasks Member Role: Primary Care Nurse Name: Bettye Carney Position: [facility] RN Member Role: Primary Care Nurse Name: Derek Tomas MD Position: [facility] Resident Member Role: PCP Address: Address: [address] [place] [id number]- Name: Ally Boyd RN Position: [facility] RN Member Role: Primary Care Nurse Name: Axel Savage RN Position: [facility] RN Member Role: Primary Care Nurse Name: Filemon King RN Position: [facility] RN Member Role: Primary Care Nurse Name: Glenys Fox RN Position: [facility] RN Member Role: Primary Care Nurse Care Team Related Persons Name: BEVERLY REYNAGA Address: home [address] [place] [id number] Name: AISLINN DE LA PAZ Address: [address] [place] [address]
--- OUTSIDE RECORDS SUMMARY | 2023-02-03 22:23 | XMS_ITS | Continuity of Care Document ---
Author Name Unknown Organization [facility] Address [address] [place] [address]- Care Team Providers Care Angiography Nurse Name Role Phone Genoveva PAGAN, Derek Primary Care Physician Encounter [facility] Date(s): 03/02/22 - 04/01/22 [facility] [address] [place] [id number]- Attending Physician: Admnichelle, Sangeetha Admitting Physician: [id number] Referring Physician: Admtr, Ar8 Allergies, Adverse Reactions, Alerts No Known Allergies Immunizations Given and Recorded Vaccine Date Status Refusal Reason tetanus/diphtheria/pertussis, acel(Tdap) 09/13/19 Recorded Medications acetaminophen 325 mg oral capsule 2 capsule = 650 mg, By Mouth, Every 6 hours, PRN Pain , Moderate, # 90 capsule, 0 Refills, Maintenance, 01/21/22 20:50:00 EDT, Capsule, [facility]/pharmacy #[id number], Partial fill upon patient request if the prescription is for a schedule II opioid drug., 193, c... Start Date: 01/21/22 Status: Ordered amLODIPine 5 mg oral tablet 1 tablet, By Mouth, Daily, # 30 tablet, 11 Refills, [facility], 193, cm, 10/26/21 9:21:00 EDT,Height, 97.2, kg, 10/26/21 9:21:00 EDT, Dry Weight Start Date: 11/15/21 Status: Ordered baclofen 20 mg oral tablet 20 mg, 1, tablet, By Mouth, 4 times a day, # 120 tablet, Refills 5, Tot. Refills 5, Maintenance, 10/26/21 9:45:00 EDT, Route to Pharmacy Electronically, [facility], 193, cm, 10/26/21 9:21:00 EDT, Height, 97.2, kg, 10/26/21 9:21:00 EDT, Dry Weight Start Date: 10/26/21 Status: Ordered Botox 100 units injection See Instructions, 400 units for MD to inject. Dx: Spasticity, # 2 kit, 3 Refills, Maintenance, 12/13/21 16:10:00 EDT Start Date: 12/13/21 Status: Ordered cephalexin monohydrate 500 mg oral capsule 1 capsule = 500 mg, TAKE 1 CAPSULE BY MOUTH THREE TIMES A DAY Start Date: 02/07/22 Status: Ordered clindamycin 1% topical gel 1 application, Topically, 2 times a day, # 60 Gm, 0 Refills, Maintenance, 04/06/20 16:11:00 EST, Gel, [facility]/pharmacy #[id number], Partial fill upon patient request, [...] 60 tablet, 11 Refills, 02/07/22 11:13:00 EDT, [facility]/pharmacy #[id number], 193, cm, 02/07/22 10:31:00 EDT, Height, 97.2, kg, 10/26/21 9:21:00 EDT, Dry Weight Start Date: 02/07/22 Status: Ordered folic acid 1 mg oral tablet 1, tablet, By Mouth, Daily, # 30 tablet, Refills 11, Tot. Refills 0, Maintenance, 11/22/20 8:13:00 EDT, Route to Pharmacy Electronically, [facility], 187.6, cm, 10/19/20 9:25:00 EDT, Height, 101.4, kg, 08/27/20 1:59:00 EDT, Dry Weight Start Date: 11/22/20 Status: Ordered gabapentin 300 mg oral capsule 1, capsule, By Mouth, 3 times a day, # 90 capsule, Refills 5, Maintenance, 02/22/22 9:42:00 EDT, Route to Pharmacy Electronically, [facility]59, 193, cm, 02/07/22 10:31:00 EDT, Height, 97.2, kg, 10/26/21 9:21:00 EDT, Dry Weight Start Date: 02/22/22 Status: Ordered ibuprofen 600 mg oral tablet 600 mg, 1, tablet, By Mouth, Every 8 hours, PRN, # 100 tablet, Refills 0, Tot. Refills 0, Maintenance, Pain , Moderate, 01/21/22 20:49:00 EDT, Route to Pharmacy Electronically, [facility]/pharmacy #[id number], Partial fill upon patient request if the prescription... Start Date: 01/21/22 Stop Date: 02/04/22 Status: Ordered ISOtretinoin 20 mg oral capsule 1 capsule = 20 mg, By Mouth, 2 times a day, # 56 capsule, 0 Refills, Maintenance, 02/07/22 13:06:00EDT, Capsule, Partial fill upon patient request if the prescription is for a schedule II opioid drug. Start Date: 02/07/22 Status: Ordered metoclopramide 10 mg oral tablet, [...] Refills, Maintenance, 02/22/22 9:43:00 EDT, [facility], 193, cm, 02/07/22 10:31:00 EDT, Height, 97.2, kg, 10/26/21 9:21:00 EDT, Dry Weight Start Date: 02/22/22 Status: Ordered oxyCODONE 5 mg oral capsule 1 capsule = 5 mg, By Mouth, Every 6 hours, PRN as needed for pain, # 12 capsule, 0 Refills, Maintenance, 01/21/22 20:50:00 EDT, Capsule, [facility]/pharmacy #[id number], Partial fill upon patient request [...] 03/15/21 22:43:00 EDT, Route to Pharmacy Electronically, [facility]/pharmacy #[id number], Partial fill upon patient request [...] need: 99 months Number to fax to: [phone], 01/06/21 13:10:00 E... Start Date: 01/06/21 Status: Ordered scopolamine 1 mg/72 hr transdermal film, extended release 1 film, Topically, Every 72 hours, Apply to right mastoid bone, # 10 each, 1 Refills, Acute 07/13/22 10:00:00 EST, 07/12/21 16:55:00 EST, [facility]/pharmacy #[id number], Partial fill upon patient request if the prescription is for a schedule II opioid drug., 1 fi... Start Date: 07/12/21 Stop Date: 07/13/22 Status: Ordered scopolamine 1 mg/72 hr transdermal film, extended release 1 film, Topically, Every 72 hours, Apply to right mastoid bone, # 24 each, 1 Refills, Maintenance, 07/13/22 10:00:00 EST, [facility]/pharmacy #[id number], Partial fill upon patient request if the prescription is for a schedule II opioid drug., 1 film Topically Lucía... Start Date: 07/13/22 Status: Ordered tiZANidine 2 mg oral tablet See Instructions, 1 tablet by mouth twice a day, # 60 tablet, Refills 3, Tot. Refills 3, Maintenance, 12/13/21 16:11:00 EDT, Instructions Replace Required Details, Route to Pharmacy Electronically, [facility]/pharmacy #[id number], Partial fill upon patient request... 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 Carmen Elizabeth [phone] Confirmed Active Therapeutic drug monitoring Confirmed Active Spasticity Confirmed Active Tobacco dependence Confirmed Active Social History Social History Type Response Smoking Status 10 or more cigarette s (1/2 pack or more)/day in last 30 days entered on: 02/29/20 Sex Patient Care team information Care Team Personnel Name: Bettye Carney Position: S RN Member Role: Primary Care Nurse Name: Derek Tomas MD Position: [facility] Resident Member Role: PCP Address: Address: [address] [place] [address] Name: Ally Boyd RN Position: S RN Member Role: Primary Care Nurse Name: Areli Whitaker RN Position: [facility] ED RN W/OE and Tasks Member Role: Primary Care Nurse Name: Axel Savage RN Position: S RN Member Role: Primary Care Nurse Name: Filemon King RN Position: S RN Member Role: Primary Care Nurse Care Team Related Persons Name: BEVERLY REYNAGA Address: home [address] [place] [id number] Name: AISLINN DE LA PAZ Address: [address] [address]
--- OUTSIDE RECORDS SUMMARY | 2023-02-03 22:23 | XMS_ITS | Continuity of Care Document ---
Author Name Unknown Organization [facility] Address Unknown Care Team Providers Care Legislative Assistant Name Role Phone Judie Mills DO Primary Care Physician Encounter [facility] [place] Date(s): 07/12/21 - 08/11/21 [facility] Attending Physician: Sangeetha aLtif Admitting Physician: Sangeetha Latif Referring Physician: Sangeetha Latif Allergies, Adverse Reactions, Alerts No Known Allergies [...] 07/12/21 17:17:00 EST, [facility], [id number], Partial fill upon patient request [...] 0 Refills, Maintenance, 04/06/20 16:11:00 EST, Gel, [facility]/pharmacy #[id number], Partial fill upon patient [...] EDT, Route to [facility]ically, [facility], 187.6, cm, 10/19/20 9:25:00 EDT, Height, 101.4, [...] 14:16:00 EST, [id number] Note bedtime dose change, 193, cm, 03/15/21 16:10:00 EDT, Height, 104.5,... Start Date: 04/03/21 Stop Date: 08/01/21 Status: Ordered metoclopramide 10 mg oral tablet, disintegrating 1 tablet = 10 mg, By Mouth, Every 8 hours, PRN Nausea & Vomiting, # 28 tablet, 0 Refills, Maintenance, 02/24/21 17:09:00 EDT, DIS Tablet, [facility]/pharmacy #[id number], Partial fill upon patient [...] 5 Refills, Maintenance, 03/13/21 13:24:00 EDT, ECCapsule, [facility]/pharmacy #[id number], Partial fill upon patient [...] 03/15/21 22:43:00 EDT, Route to Pharmacy Electronically, [facility]/pharmacy #[id number], Partial fill upon patient request if the prescription is for a schedule II opioid drSamira.. Start Date: 03/15/21 Status: Ordered Right ankle & foot orthosis Right ankle & foot orthosis, See Instructions, # 1 each, Refills 1, Tot. Refills 1, Maintenance, Please dispense 1 right ankle and foot othosis Dx: R29.898, R26.81, M25.373 Length of need: 99 months Number to fax to: [phone], 01/06/21 13:10:00 E... Start Date: 01/06/21 Status: Ordered scopolamine 1 mg/72 hr transdermal film, extended release 1 film, Topically, Every 72 hours, Apply to right mastoid bone, # 10 each, 1 Refills, Acute 07/13/22 10:00:00 EST, 07/12/21 16:55:00 EST, [facility]/pharmacy #[id number], Partial fill upon patient [...] tablet, 11 Refills, Maintenance, 11/22/20 8:13:00 EDT, [facility] STORE 97434, 187.6, cm, 10/19/20 9:25:00 EDT, Height, 101.4, [...]
--- OUTSIDE RECORDS SUMMARY | 2023-02-03 22:23 | XMS_ITS | Continuity of Care Document ---
Author Name Unknown Organization [facility] Address [address] [place] [address]- Care Team Providers Care Second Helper Name Role Phone Judie Mills DO Primary Care Physician [place] [facility] [place] Date(s): 02/15/21 - 02/15/[address] [address]- Encounter Diagnosis N&V (nausea and vomiting)(Final) - 02/15/21 Chronic anticoagulation(Final) - 02/15/21 Discharge Disposition: A-D/C Home Attending Physician: Rosa Liu MD Admitting Physician: Rosa Liu MD Referring Physician: Not on Staff, Referring MD Allergies, Adverse Reactions, Alerts Substance Reaction Severity Status NKA Active Medications amLODIPine 5 mg oral tablet 5 mg, 1, tablet, By Mouth, Daily, # 30 tablet, Refills 11, Tot. Refills 11, Maintenance, 10/31/20 12:56:00 EDT, Route to Pharmacy Electronically, [facility]/pharmacy #[id number], Partial fill upon patient requestif [...] 0 Refills, Maintenance, 04/06/20 16:11:00 EST, Gel, [facility]/pharmacy #[id number], Partial fill upon patient request, 1 [...] 11/22/20 8:13:00 EDT, Route to Pharmacy Electronically, [facility] STORE 99651, 187.6, cm, 10/19/20 9:25:00 EDT, Height, 101.4, kg, 08/27/20 1:59:00 EDT, Dry Weight Start Date: 11/22/20 Status: Ordered gabapentin 100 mg oral capsule 100 mg, 1, capsule, By Mouth, 3 times a day, # 90 capsule, Refills 11, Tot. Refills 11, Maintenance, 11/02/20 17:57:00 EDT, Route to Pharmacy Electronically, [facility]/pharmacy #[id number], Partial fill upon patient [...] need: 99 months Number to fax to: [phone], 01/06/21 13:10:00 E... Start Date: 01/06/21 Status: Ordered SEROquel 25 mg oral tablet 25 mg, 1, tablet, By Mouth, 2 times a day, # 60 tablet, Refills 3, Tot. Refills 3, Maintenance, 11/25/20 15:58:00 EDT, Route to Pharmacy Electronically, [facility]/pharmacy #2569, Partial fill upon patient request if the [...] Refills, Maintenance, 11/22/20 8:13:00 EDT, [facility], 187.6, cm, 10/19/20 9:25:00 EDT, Height, 101.4, [...] - R53.1,Spastici... Start Date: 11/11/20 Status: Ordered Zofran 4 mg oral tablet 1 tablet = 4 mg, By Mouth, Every 8 hours, PRN as needed for nausea/vomiting, # 9 tablet, 0 Refills,Maintenance, 02/15/21 19:16:00 EDT, Tablet, [facility], Partial fill upon patient request if the prescription is for a schedule II opioid drug.... Start Date: 02/15/21 Stop Date: 02/18/21 Status: Ordered Problem List Condition Effective Dates Status Health Status Inform ant Hidradenitis suppurativa(Confirmed) Active Wound of buttock(Confirmed) Active Tobacco dependence(Confirmed) Active Vital Signs Most recent to oldest [Reference Range]: 1 2 Height 193 cm (02/15/21 7:45 PM) 193 cm (02/15/21 12:52 PM) Weight 104.5 kg (02/15/21 7:45 PM) 104.5 kg (02/15/21 12:52 PM) Oxygen Saturation [94-100 %] 100 % (02/15/21 7:45 PM) 99 % (02/15/21 12:52 PM) Pulse Rate [55-90 bpm] 72 bpm (02/15/21 7:45 PM) 55 bpm (02/15/21 12:52 PM) Body Mass Index [18.5-24.99] 28.05 *H* (02/15/21 7:45 PM) 28.05 *H* (02/15/21 12:52 PM) Blood Pressure [90-138/55-84 mm Hg] 133/ 79mm Hg (02/15/21 7:45 PM) 149/83mm Hg *H* (02/15/21 12:52 PM) Respiratory Rate [16-30 br/min] 18 br/mi n (02/15/21 7:45 PM) 18 br/min (02/15/21 12:52 PM) Temperature [96.8-100.4 DegF] 99.6 DegF (02/15/21 7:45 PM) 99.1 DegF (02/15/21 12:52 PM) Mode of Delivery (Oxygen) Room air (02/15/21 7:45 PM) Room air (02/15/21 12:52 PM) Temperature Route Oral (02/15/21 7:45 PM) Oral (02/15/21 12:52 PM) Dry Weight 104.5 kg (02/15/21 7:45 PM) 104.5 kg (02/15/21 12:52 PM) Social History Social History Type Response Smoking Status 10 or more cigarette s (1/2 pack or more)/day in last 30 days entered on: 02/29/20 Sex
--- OUTSIDE RECORDS SUMMARY | 2023-02-03 22:23 | XMS_ITS | Continuity of Care Document ---
Author Name Unknown Organization [facility] Address [address] [place] [address]- Care Team Providers Care Project Product Manager Name Role Phone Judie Mills DO Primary Care Physician [phone] [facility] [place] [id number] Date(s): 10/19/20 - 11/18/[address] [address]- Attending Physician: Sangeetha Latif Admitting Physician: AdmtrSangeetha Referring Physician: Admtr, Ar8 Allergies, Adverse Reactions, Alerts Substance Reaction Severity Status NKA Active Medications amLODIPine 5 mg oral tablet 5 mg, 1, tablet, By Mouth, Daily, # 30 tablet, Refills 11, Tot. Refills 11, Maintenance, 10/31/20 12:56:00 EDT, Route to Pharmacy Electronically, [facility]/pharmacy #[id number], Partial fill upon patient requestif the prescription is for a schedule II opioid laura... Start Date: 10/31/20 Status: Ordered apixaban 5 mg oral tablet 1 tablet = 5 mg, By Mouth, 2 times a day, # 60 tablet, 11 Refills, Maintenance, 10/31/20 12:55:00 EDT, Tablet, [facility]/pharmacy #[id number], Partial fill upon patient request [...] 10/31/20 12:56:00 EDT, Route to Pharmacy Electronically, [facility]/pharmacy #[id number], Partial fill upon patient request if the prescription is for a schedule II opioid drug.... Start Date: 10/31/20 Status: Ordered gabapentin 100 mg oral capsule 100 mg, 1, capsule, By Mouth, 3 times a day, # 90 capsule, Refills 11, Tot. Refills 11, Maintenance, 11/02/20 17:57:00 EDT, Route to Pharmacy Electronically, [facility]/pharmacy #[id number], Partial fill upon patient request [...] 0 Refills, Maintenance, 10/31/20 12:56:00 EDT, Tablet, [id number], Partial fill upon patient request if the prescription is for a schedule II opioid drug., 187.6, cm, 10/19/20 9:25:00 EDT, Heigh... Start Date: 10/31/20 Status: Ordered walker with platform attached walker [...]
--- OUTSIDE RECORDS SUMMARY | 2023-02-03 22:23 | XMS_ITS | Continuity of Care Document ---
Author Name Unknown Organization [facility] Address [address] [place] [address]- Care Team Providers Care Business Initiatives Manager Name Role Phone Derek Tomas MD Primary Care Physician Encounter [facility] [place] Date(s): 04/16/22 - 05/16/[address] [address]- Attending Physician: Sangeetha Latif Admitting Physician: AdmtrSangeetha Referring Physician: Admtr, ArShazia Allergies, Adverse Reactions, Alerts No Known Allergies Immunizations Given and Recorded Vaccine Date Status Refusal Reason tetanus/diphtheria/pertussis, acel(Tdap) 09/13/19 Recorded Medications acetaminophen 325 mg oral capsule 2 capsule = 650 mg, By Mouth, Every 6 hours, PRN Pain , Moderate, # 90 capsule, 0 Refills, Maintenance, 01/21/22 20:50:00 EDT, Capsule, [facility]/pharmacy #6131, Partial fill upon patient request if the prescription is for a schedule II opioid drug., 193, c... Start Date: 01/21/22 Status: Ordered amLODIPine 5 mg oral tablet 1 tablet, By Mouth, Daily, # 30 tablet, 11 Refills, [facility], 193, cm, 10/26/21 9:21:00 EDT,Height, 97.2, kg, 10/26/21 9:21:00 EDT, Dry Weight Start Date: 11/15/21 Status: Ordered baclofen 20 mg oral tablet 20 mg, 1, tablet, By Mouth, 4 times a day, # 120 tablet, Refills 5, Tot. Refills 5, Maintenance, 10/26/21 9:45:00 EDT, Route to Pharmacy Electronically, [facility]/pharmacy #[id number], 193, cm, 10/26/21 9:21:00 EDT, [...] 0 Refills, Maintenance, 04/06/20 16:11:00 EST, Gel, [facility]/pharmacy #[id number], Partial fill upon patient request, [...] 60 tablet, 11 Refills, 02/07/22 11:13:00 EDT, [facility]/pharmacy #[id number], 193, cm, 02/07/22 10:31:00 EDT, Height, 97.2, kg, 10/26/21 9:21:00 EDT, Dry Weight Start Date: 02/07/22 Status: Ordered folic acid 1 mg oral tablet 1, tablet, By Mouth, Daily, # 30 tablet, Refills 11, Tot. Refills 0, Maintenance, 11/22/20 8:13:00 EDT, Route to Pharmacy Electronically, [facility] 95[facility], 187.6, cm, 10/19/20 9:25:00 EDT, Height, 101.4, kg, 08/27/20 1:59:00 EDT, Dry Weight Start Date: 11/22/20 Status: Ordered gabapentin 300 mg oral capsule 1, capsule, By Mouth, 3 times a day, # 90 capsule, Refills 5, Maintenance, 02/22/22 9:42:00 EDT, Route to Pharmacy Electronically, [facility], 193, cm, 02/07/22 10:31:00 EDT, Height, 97.2, kg, 10/26/21 9:21:00 EDT, Dry Weight Start Date: 02/22/22 Status: Ordered ibuprofen 600 mg oral tablet 600 mg, 1, tablet, By Mouth, Every 8 hours, PRN, # 100 tablet, Refills 0, Tot. Refills 0, Maintenance, Pain , Moderate, 01/21/22 20:49:00 EDT, Route to Pharmacy Electronically, [facility]/pharmacy #[id number], Partial fill upon patient request [...] Refills, Maintenance, 02/22/22 9:43:00 EDT, [facility], 193, cm, 02/07/22 10:31:00 EDT, Height, 97.2, kg, 10/26/21 9:21:00 EDT, Dry Weight Start Date: 02/22/22 Status: Ordered oxyCODONE 5 mg oral capsule 1 capsule = 5 mg, By Mouth, Every 6 hours, PRN as needed for pain, # 12 capsule, 0 Refills, Maintenance, 01/21/22 20:50:00 EDT, Capsule, [facility]/pharmacy #[id number], Partial fill upon patient request [...] 03/15/21 22:43:00 EDT, Route to Pharmacy Electronically, [facility]/pharmacy #[id number], Partial fill upon patient request [...] need: 99 months Number to fax to: [phone], 01/06/21 13:10:00 E... Start Date: 01/06/21 Status: Ordered scopolamine 1 mg/72 hr transdermal film, extended release 1 film, Topically, Every 72 hours, Apply to right mastoid bone, # 10 each, 1 Refills, Acute 07/13/22 10:00:00 EST, 07/12/21 16:55:00 EST, [facility]/pharmacy #[id number], Partial fill upon patient request if the prescription is for a schedule II opioid drug., 1 fi... Start Date: 07/12/21 Stop Date: 07/13/22 Status: Ordered scopolamine 1 mg/72 hr transdermal film, extended release 1 film, Topically, Every 72 hours, Apply to right mastoid bone, # 24 each, 1 Refills, Maintenance, 07/13/22 10:00:00 EST, [facility]/pharmacy #[id number], Partial fill upon patient request if the prescription is for a schedule II opioid drug., 1 film Topically Lucía... Start Date: 07/13/22 Status: Ordered tiZANidine 2 mg oral tablet See Instructions, 1 tablet by mouth twice a day, # 60 tablet, Refills 3, Tot. Refills 3, Maintenance, 12/13/21 16:11:00 EDT, Instructions Replace Required Details, Route to Pharmacy Electronically, [facility]/pharmacy #[id number], Partial fill upon patient request... 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 Elizabeth [phone] Confirmed Active Therapeutic drug monitoring Confirmed Active Spasticity Confirmed Active Tobacco dependence Confirmed Active Social History Social History Type Response Smoking Status 5-9 cigarettes (betw een / to 1/2 pack)/day in last 30 days entered on: 05/16/22 Sex Note * Event Display: Laboratory Result Scanned Authored Date: * Event Display: Laboratory Result Scanned Authored Date: * Judie Keenan DO: PERFORM Event Display: Laboratory Result Scanned Authored Date: [id number] 03/02/22 labs Lipid panel WNL G6PD screen WNL * Event Display: Laboratory Result Scanned Authored Date: * Judie Keenan DO: PERFORM Event Display: Laboratory Result Scanned Authored Date: [id number] Labs resulted 03/01/22 CBC WBC 8.5, diff WNL H/H 10.6/36.4 - mild anemia Plts 747 - thrombocytosis CMP: Electrolytes, kidney function WNL Alk phos elevated at 155 Remainder of liver testing normal Patient Care team information Care Team Personnel Name: Bettye Carney Position: [facility] RN Member Role: Primary Care Nurse Name: Derek Tomas MD Position: [facility] Resident Member Role: PCP Address: Address: [address] [place] [address]- Name: Ally Boyd RN Position: [facility] RN Member Role: Primary Care Nurse Name: Areli Whitaker RN Position: [facility] ED RN W/OE and Tasks Member Role: Primary Care Nurse Name: Axel Savage RN Position: [facility] RN Member Role: Primary Care Nurse Name: Filemon King RN Position: [facility] RN Member Role: Primary Care Nurse Care Team Related Persons Name: JUHI BEVERLY Address: [place] [address] Name: AISLINN DE LA PAZ Address: home [address] [place] [address]
--- OUTSIDE RECORDS SUMMARY | 2023-02-03 22:23 | XMS_ITS | Continuity of Care Document ---
Author Name Unknown Organization [facility] Address [address] [place] [address]- Care Team Providers Care Body Stylist Name Role Phone Derek Tomas MD Primary Care Physician Encounter [facility] Date(s): 04/02/22 - 05/02/22 [facility] [address] [place] [address]- Attending Physician: Sangeetha Latif Admitting Physician: AdmSangeetha steward Referring Physician: Admtr ArShazia Allergies, Adverse Reactions, Alerts No Known Allergies Immunizations Given and Recorded Vaccine Date Status Refusal Reason tetanus/diphtheria/pertussis, acel(Tdap) 09/13/19 Recorded Medications acetaminophen 325 mg oral capsule 2 capsule = 650 mg, By Mouth, Every 6 hours, PRN Pain , Moderate, # 90 capsule, 0 Refills, Maintenance, 01/21/22 20:50:00 EDT, Capsule, [facility]/pharmacy #1731, Partial fill upon patient request if the prescription is for a schedule II opioid drug., 193, c... Start Date: 01/21/22 Status: Ordered amLODIPine 5 mg oral tablet 1 tablet, By Mouth, Daily, # 30 tablet, 11 Refills, [facility], 193, cm, 10/26/21 9:21:00 EDT,Height, 97.2, kg, 10/26/21 9:21:00 EDT, Dry Weight Start Date: 11/15/21 Status: Ordered baclofen 20 mg oral tablet 20 mg, 1, tablet, By Mouth, 4 times a day, # 120 tablet, Refills 5, Tot. Refills 5, Maintenance, 10/26/21 9:45:00 EDT, Route to Pharmacy Electronically, [facility]/pharmacy #[id number], 193, cm, 10/26/21 9:21:00 [...] 0 Refills, Maintenance, 04/06/20 16:11:00 EST, Gel, [facility]/pharmacy #[id number], Partial fill upon patient [...] 60 tablet, 11 Refills, 02/07/22 11:13:00 EDT, [facility]/pharmacy #[id number], 193, cm, 02/07/22 10:31:00 EDT, Height, 97.2, kg, 10/26/21 9:21:00 EDT, Dry Weight Start Date: 02/07/22 Status: Ordered folic acid 1 mg oral tablet 1, tablet, By Mouth, Daily, # 30 tablet, Refills 11, Tot. Refills 0, Maintenance, 11/22/20 8:13:00 EDT, Route to Pharmacy Electronically, [facility] 32518, 187.6, cm, 10/19/20 9:25:00 EDT, Height, 101.4, kg, 08/27/20 1:59:00 EDT, Dry Weight Start Date: 11/22/20 Status: Ordered gabapentin 300 mg oral capsule 1, capsule, By Mouth, 3 times a day, # 90 capsule, Refills 5, Maintenance, 02/22/22 9:42:00 EDT, Route to Pharmacy Electronically, [facility] 195[facility], 193, cm, 02/07/22 10:31:00 EDT, Height, 97.2, kg, 10/26/21 9:21:00 EDT, Dry Weight Start Date: 02/22/22 Status: Ordered ibuprofen 600 mg oral tablet 600 mg, 1, tablet, By Mouth, Every 8 hours, PRN, # 100 tablet, Refills 0, Tot. Refills 0, Maintenance, Pain , Moderate, 01/21/22 20:49:00 EDT, Route to Pharmacy Electronically, [facility]/pharmacy #[id number], Partial fill upon patient [...] Refills, Maintenance, 02/22/22 9:43:00 EDT, [facility], 193, cm, 02/07/22 10:31:00 EDT, Height, 97.2, kg, 10/26/21 9:21:00 EDT, Dry Weight Start Date: 02/22/22 Status: Ordered oxyCODONE 5 mg oral capsule 1 capsule = 5 mg, By Mouth, Every 6 hours, PRN as needed for pain, # 12 capsule, 0 Refills, Maintenance, 01/21/22 20:50:00 EDT, Capsule, [facility]/pharmacy #[id number], Partial fill upon patient [...] 03/15/21 22:43:00 EDT, Route to Pharmacy Electronically, [facility]/pharmacy #[id number], Partial fill upon patient [...] need: 99 months Number to fax to: [phone], 01/06/21 13:10:00 E... Start Date: 01/06/21 Status: Ordered scopolamine 1 mg/72 hr transdermal film, extended release 1 film, Topically, Every 72 hours, Apply to right mastoid bone, # 10 each, 1 Refills, Acute 07/13/22 10:00:00 EST, 07/12/21 16:55:00 EST, [facility]/pharmacy #[id number], Partial fill upon patient request if the prescription is for a schedule II opioid drug., 1 fi... Start Date: 07/12/21 Stop Date: 07/13/22 Status: Ordered scopolamine 1 mg/72 hr transdermal film, extended release 1 film, Topically, Every 72 hours, Apply to right mastoid bone, # 24 each, 1 Refills, Maintenance, 07/13/22 10:00:00 EST, [facility]/pharmacy #[id number], Partial fill upon patient request if the prescription is for a schedule II opioid drug., 1 film Topically Lucía... Start Date: 07/13/22 Status: Ordered tiZANidine 2 mg oral tablet See Instructions, 1 tablet by mouth twice a day, # 60 tablet, Refills 3, Tot. 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 Elizabeth [phone] Confirmed Active Therapeutic drug monitoring Confirmed Active Spasticity Confirmed Active Tobacco dependence Confirmed Active Social History Social History Type Response Smoking Status 10 or more cigarette s (1/2 pack or more)/day in last 30 days entered on: 02/29/20 Sex Patient Care team information Care Team Personnel Name: Bettye Carney Position: S RN Member Role: Primary Care Nurse Name: Derek Tomas MD Position: [facility] Resident Member Role: PCP Address: Address: [address] [place] [address] Name: Ally Boyd RN Position: [facility] RN Member Role: Primary Care Nurse Name: Areli Whitaker RN Position: [facility] ED RN W/OE and Tasks Member Role: Primary Care Nurse Name: Axel Savage RN Position: S RN Member Role: Primary Care Nurse Name: Filemon King RN Position: [facility] RN Member Role: Primary Care Nurse Care Team Related Persons Name: BEVERLY REYNAGA Address: home [address] [place] [id number] Name: AISLINN DE LA PAZ Address: [address] [address]
--- OUTSIDE RECORDS SUMMARY | 2023-02-03 22:23 | XMS_ITS | Continuity of Care Document ---
Author Name Unknown Organization [facility] Address [address] [place] [address]- Care Team Providers Care Cullet Crusher And Washer Name Role Phone Judie Mills DO Primary Care Physician [phone] Encounter [facility] Date(s): 10/07/20 - 11/06/20 [facility] [address] [place] [address] Attending Physician: Sangeetha Latif Admitting Physician: AdmSangeetha steward Referring Physician: AdmtrSangeetha Allergies, Adverse Reactions, Alerts Substance Reaction Severity Status NKA Active Medications amLODIPine 5 mg oral tablet 5 mg, 1, tablet, By Mouth, Daily, # 30 tablet, Refills 11, Tot. Refills 11, Maintenance, 10/31/20 12:56:00 EDT, Route to Pharmacy Electronically, [facility]/pharmacy #[id number], Partial fill upon patient requestif the [...] 10/31/20 12:56:00 EDT, Route to Pharmacy Electronically, [facility]/pharmacy #[id number], Partial fill upon patient request if the prescription is for a schedule II opioid drug.... Start Date: 10/31/20 Status: Ordered gabapentin 100 mg oral capsule 100 mg, 1, capsule, By Mouth, 3 times a day, # 90 capsule, Refills 11, Tot. Refills 11, Maintenance, 11/02/20 17:57:00 EDT, Route to Pharmacy Electronically, [facility]/pharmacy #[id number], Partial fill upon patient request [...] 0 Refills, Maintenance, 10/31/20 12:56:00 EDT, Tablet, [facility]/pharmacy #[id number], Partial fill upon patient request [...]
--- OUTSIDE RECORDS SUMMARY | 2023-02-03 22:23 | XMS_ITS | Continuity of Care Document ---
Author Name Unknown Organization [facility] Address [address] [place] [address]- Care Team Providers Care Stock Saw Operator Name Role Phone Judie Mills DO Primary Care Physician Encounter [facility] [place] Date(s): 11/04/20 - 12/04/[address] [address] Allergies, Adverse Reactions, Alerts Substance Reaction [...] 11/22/20 8:13:00 EDT, Route to Pharmacy Electronically, [facility] 32718, 187.6, cm, 10/19/20 9:25:00 EDT, Height, 101.4, kg, 08/27/20 1:59:00 EDT, Dry Weight Start Date: 11/22/20 Status: Ordered gabapentin 100 mg oral capsule 100 mg, 1, capsule, By Mouth, 3 times a day, # 90 capsule, Refills 11, Tot. Refills 11, Maintenance, 11/02/20 17:57:00 EDT, Route to Pharmacy Electronically, [facility]/pharmacy #4320, Partial fill upon patient request if the [...] 11/25/20 15:58:00 EDT, Route to Pharmacy Electronically, [facility]/pharmacy #4553, Partial fill upon patient request if the [...] Refills, Maintenance, 11/22/20 8:13:00 EDT, [facility], 187.6, cm, 10/19/20 9:25:00 EDT, Height, 101.4, [...]
--- OUTSIDE RECORDS SUMMARY | 2023-02-03 22:24 | XMS_ITS | Continuity of Care Document ---
Author Name Unknown Organization [facility] Address [address] [place] [address]- Care Team Providers Care Early Intervention Specialist Name Role Phone Judie Keenan DO Primary Care Physician [phone] Encounter [facility] Date(s): 12/11/21 - 02/22/[address] [address] Attending Physician: Not on Staff, Attending MD Allergies, Adverse Reactions, Alerts No Known Allergies Immunizations Given and Recorded Vaccine Date Status Refusal Reason tetanus/diphtheria/pertussis, acel(Tdap) 09/13/19 Recorded Medications acetaminophen 325 mg oral capsule 2 capsule = 650 mg, By Mouth, Every 6 hours, PRN Pain , Moderate, # 90 capsule, 0 Refills, Maintenance, 01/21/22 20:50:00 EDT, Capsule, [facility]/pharmacy #[id number], Partial fill upon patient request if the prescription is for a schedule II opioid drug., 193, c... Start Date: 01/21/22 Status: Ordered amLODIPine 5 mg oral tablet 1 tablet, By Mouth, Daily, # 30 tablet, 11 Refills, [facility], 193, cm, 10/26/21 9:21:00 EDT,Height, 97.2, kg, 10/26/21 9:21:00 EDT, Dry Weight Start Date: 11/15/21 Status: Ordered baclofen 20 mg oral tablet 20 mg, 1, tablet, By Mouth, 4 times a day, # 120 tablet, Refills 5, Tot. Refills 5, Maintenance, 10/26/21 9:45:00 EDT, Route to Pharmacy Electronically, [facility]/pharmacy #207, 193, cm, 10/26/21 9:21:00 EDT, Height, [...] 0 Refills, Maintenance, 04/06/20 16:11:00 EST, Gel, [facility]/pharmacy #[id number], Partial fill upon patient request, [...] 60 tablet, 11 Refills, 02/07/22 11:13:00 EDT, [facility]/pharmacy #207, 193, cm, 02/07/22 10:31:00 EDT, Height, 97.2, kg, 10/26/21 9:21:00 EDT, Dry Weight Start Date: 02/07/22 Status: Ordered folic acid 1 mg oral tablet 1, tablet, By Mouth, Daily, # 30 tablet, Refills 11, Tot. Refills 0, Maintenance, 11/22/20 8:13:00 EDT, Route to Pharmacy Electronically, [facility] 61789, 187.6, cm, 10/19/20 9:25:00 EDT, Height, 101.4, kg, 08/27/20 1:59:00 EDT, Dry Weight Start Date: 11/22/20 Status: Ordered gabapentin 300 mg oral capsule 1, capsule, By Mouth, 3 times a day, # 90 capsule, Refills 5, Maintenance, 02/22/22 9:42:00 EDT, Route to Pharmacy Electronically, [facility] 60321, 193, cm, 02/07/22 10:31:00 EDT, Height, 97.2, kg, 10/26/21 9:21:00 EDT, Dry Weight Start Date: 02/22/22 Status: Ordered ibuprofen 600 mg oral tablet 600 mg, 1, tablet, By Mouth, Every 8 hours, PRN, # 100 tablet, Refills 0, Tot. Refills 0, Maintenance, Pain , Moderate, 01/21/22 20:49:00 EDT, Route to Pharmacy Electronically, [facility]/pharmacy #[id number], Partial fill upon [...] Refills, Maintenance, 02/24/21 17:09:00 EDT, DIS Tablet, [facility]/pharmacy #[id number], Partial fill upon [...] Refills, Maintenance, 02/22/22 9:43:00 EDT, [facility], 193, cm, 02/07/22 10:31:00 EDT, Height, 97.2, kg, 10/26/21 9:21:00 EDT, Dry Weight Start Date: 02/22/22 Status: Ordered oxyCODONE 5 mg oral capsule 1 capsule = 5 mg, By Mouth, Every 6 hours, PRN as needed for pain, # 12 capsule, 0 Refills, Maintenance, 01/21/22 20:50:00 EDT, Capsule, [facility]/pharmacy #[id number], Partial fill upon [...] 03/15/21 22:43:00 EDT, Route to Pharmacy Electronically, [facility]/pharmacy #[id number], Partial fill upon [...] need: 99 months Number to fax to: [phone], 01/06/21 13:10:00 E... Start Date: 01/06/21 Status: Ordered scopolamine 1 mg/72 hr transdermal film, extended release 1 film, Topically, Every 72 hours, Apply to right mastoid bone, # 10 each, 1 Refills, Acute 07/13/22 10:00:00 EST, 07/12/21 16:55:00 EST, [facility]/pharmacy #[id number], Partial fill upon patient request if the prescription is for a schedule II opioid drug., 1 fi... Start Date: 07/12/21 Stop Date: 07/13/22 Status: Ordered scopolamine 1 mg/72 hr transdermal film, extended release 1 film, Topically, Every 72 hours, Apply to right mastoid bone, # 24 each, 1 Refills, Maintenance, 07/13/22 10:00:00 EST, [facility]/pharmacy #[id number], Partial fill upon patient request if the prescription is for a schedule II opioid drug., 1 film Topically Lucía... Start Date: 07/13/22 Status: Ordered tiZANidine 2 mg oral tablet See Instructions, 1 tablet by mouth twice a day, # 60 tablet, Refills 3, Tot. Refills 3, Maintenance, 12/13/21 16:11:00 EDT, Instructions Replace Required Details, Route to Pharmacy Electronically, [facility]/pharmacy #[id number], Partial fill upon patient request... [...] tablet, 11 Refills, Maintenance, 11/22/20 8:13:00 EDT, [facility] STORE 44136, 187.6, cm, 10/19/20 9:25:00 EDT, Height, 101.4, [...] Effective Dates Status Health St atus Informant Hidradenitis suppurativa Confirmed Active Wound of buttock Confirmed Active Insomnia Confirmed Active Therapeutic drug monitoring Confirmed Active Spasticity Confirmed Active Tobacco dependence Confirmed Active Social History Social History Type Response Smoking Status 10 or more cigarette s (1/2 pack or more)/day in last 30 days entered on: 02/29/20 Sex Patient Care team information Personnel Name: Judie Keenan DO Address: Address: [address] [place] [address]
--- OUTSIDE RECORDS SUMMARY | 2023-02-03 22:24 | XMS_ITS | Continuity of Care Document ---
Author Name Unknown Organization [facility] Address [address] [facility], [address] Floor, [address] [place] [address]- Care Team Providers Care Retail Cashier Associate Name Role Phone Genoveva PAGAN, Derek Primary Care Physician [place] [facility]/06[place] - 09/05/22 [facility] [address], [address], [address] [place] [id number] Allergies, Adverse Reactions, Alerts No Known Allergies [...] Mouth, Daily, # 30 tablet, 11 Refills, [facility], 193, cm, 10/26/21 9:21:00 EDT,Height, 97.2, kg, 10/26/21 9:21:00 EDT, Dry Weight Start Date: 11/15/21 Status: Ordered baclofen 20 mg oral tablet 20 mg, 1, tablet, By Mouth, 4 times a day, # 120 tablet, Refills 5, Tot. Refills 5, Maintenance, 10/26/21 9:45:00 EDT, Route to Pharmacy Electronically, [facility]/pharmacy #[id number], 193, cm, 10/26/21 9:21:00 EDT, Height, 97.2, kg, 10/26/21 9:21:00 EDT, Dry Weight Start Date: 10/26/21 Status: Ordered Diapers, adult extra Large Diapers, adult extra Large, See Instructions, # 60 each, Refills 11, Tot. 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 L73.2 Please mike Finnegan and Aidan, 08/13/22 16:58:00 EDT, Supply Start Date: 08/13/22 Status: Ordered duloxetine 30 mg oral enteric coated capsule 1 capsule, By Mouth, Daily, # 30 capsule, 5 Refills, Maintenance, 08/17/22 15:25:00 EDT, [facility], 193.04, cm, 07/23/22 14:07:00 EDT, Height, 99.6, kg, 06/06/22 18:00:00 EST, Dry Weight Start Date: 08/17/22 Status: Ordered Eliquis 5 mg oral tablet 1 tablet, By Mouth, 2 times a day, # 60 tablet, 11 Refills, 02/07/22 11:13:00 EDT, [facility]/pharmacy #[id number], 193, cm, 02/07/22 10:31:00 EDT, Height, 97.2, kg, 10/26/21 9:21:00 EDT, Dry Weight Start Date: 02/07/22 Status: Ordered FLUoxetine 20 mg oral capsule 1, capsule, By Mouth, Daily, # 30 capsule, Refills 14, Maintenance, 08/13/22 15:55:00 EDT, Route toPharmacy Electronically, [facility], 193.04, cm, 07/23/22 14:07:00 EDT, Height, 99.6, kg, 06/06/22 18:00:00 EST, Dry Weight Start Date: 08/13/22 Status: Ordered gabapentin 300 mg oral capsule 1, capsule, By Mouth, 3 times a day, # 90 capsule, Refills 5, Maintenance, 02/22/22 9:42:00 EDT, Route to Pharmacy Electronically, [facility] 54632, 193, cm, 02/07/22 10:31:00 EDT, Height, 97.2, [...] capsule, 5 Refills, Maintenance, 08/13/22 15:28:00 EDT, [facility]/pharmacy #[id number], 193.04, cm, 07/23/22 14:07:00 EDT, Height, 99.6, kg, 06/06/22 18:00:00 EST, Dry Weight Start Date: 08/13/22 Status: Ordered oxyCODONE 5 mg oral tablet 5 mg, 1, tablet, By Mouth, Every 6 hours, for 7 days, L73. 2; G8110, # 28 tablet, Refills 0, Tot. Refills 0, Acute 09/06/22 15:48:00 EDT, 08/30/22 15:48:00 EDT, Route to Pharmacy Electronically, [facility]/pharmacy #[id number], Partial fill upon patient request if... Start Date: 08/30/22 Stop Date: 09/06/22 Status: Ordered Right ankle & foot orthosis Right ankle & foot orthosis, See Instructions, # 1 each, Refills 1, Tot. Refills 1, Maintenance, Please dispense 1 right ankle and foot othosis Dx: R29.898, R26.81, M25.373 Length of need: 99 months Number to fax to: [phone], 01/06/21 13:10:00 E... Start Date: 01/06/21 Status: Ordered scopolamine 1 mg/72 hr transdermal film, extended release See Instructions, APPLY 1 PATCH TO RIGHT MASTOID BONE EVERY 72 HOURS, # 10 each, 3 Refills, Maintenance, 06/29/22 11:46:00 EST, [facility]/pharmacy #[id number], APPLY 1 PATCH TO RIGHT MASTOID BONE EVERY 72 HOURS,193.04, cm, 06/29/22 11:17:00 EST, Height, 99.6, kg... Start Date: 06/29/22 Status: Ordered scopolamine 1 mg/72 hr transdermal film, extended release 1 film, Topically, Every 72 hours, Apply to right mastoid bone, # 24 each, 1 Refills, Maintenance, 07/13/22 10:00:00 EST, [facility]/pharmacy #[id number], Partial fill upon patient request if the prescription is for a schedule II opioid drug., 1 film Topically Lucía... Start Date: 07/13/22 Status: Ordered tiZANidine 2 mg oral tablet See Instructions, TAKE 1 TABLET BY MOUTH three times A DAY, # 90 tablet, Refills 6, Tot. Refills 6,Maintenance, 07/04/22 12:44:00 EST, Instructions Replace Required Details, Route to Pharmacy Electronically, [facility]/pharmacy #1130, 193.04, cm, 07/04/22... Start [...] 19:50:00 EST, Route to Pharmacy Electronically, [facility]/pharmacy #[id number], Partial fill upon patient request if the [...] apex Confirmed Active N CP Care Management, Food Stylist Carmen Elizabeth [phone] Confirmed Active Therapeutic drug monitoring Confirmed Active Peripheral neuropathy Confirmed Active Spasticity Confirmed Active Tobacco dependence Confirmed Active Social History Social History Type Response Smoking Status 5-9 cigarettes (betw een 1/ to 1/2 pack)/day in last 30 days entered on: 05/16/22 Sex Patient Care team information Care Team Personnel Name: Areli Pittman RN Position: [facility] ED RN W/OE and Tasks Member Role: Primary Care Nurse Name: Bettye Carney Position: [facility] RN Member Role: Primary Care Nurse Name: Derek Tomas MD Position: [facility] Resident Member Role: PCP Address: Address: [address] [place] [id number] Name: Ally Boyd RN Position: [facility] RN Member Role: Primary Care Nurse Name: Axel Savage RN Position: [facility] RN Member Role: Primary Care Nurse Name: Filemon King RN Position: [facility] RN Member Role: Primary Care Nurse Name: Glenys Fox RN Position: [facility] RN Member Role: Primary Care Nurse Care Team Related Persons Name: BEVERLY REYNAGA Address: [address] [place] [address] Name: AISLINN DE LA PAZ Address: [address] [place] [address]
--- OUTSIDE RECORDS SUMMARY | 2023-02-03 22:24 | XMS_ITS | Continuity of Care Document ---
Author Name Unknown Organization [facility] Address [address] [place] [id number]- Care Team Providers Care Insurance Territory Manager Name Role Phone Genoveva PAGAN, Derek Primary Care Physician Encounter [facility] Date(s): 01/08/22 - 04/11/22 [facility] [address] [place] [id number]- Attending Physician: Terry Ryan MD Referring Physician: Judie Keenan DO Allergies, Adverse Reactions, Alerts No Known Allergies Immunizations Given and Recorded Vaccine Date Status Refusal Reason tetanus/diphtheria/pertussis, acel(Tdap) 09/13/19 Recorded Medications acetaminophen 325 mg oral capsule 2 capsule = 650 mg, By Mouth, Every 6 hours, PRN Pain , Moderate, # 90 capsule, 0 Refills, Maintenance, 01/21/22 20:50:00 EDT, Capsule, [facility]/pharmacy #7101, Partial fill upon patient request if the prescription is for a schedule II opioid drug., 193, c... Start Date: 01/21/22 Status: Ordered amLODIPine 5 mg oral tablet 1 tablet, By Mouth, Daily, # 30 tablet, 11 Refills, [facility], 193, cm, 10/26/21 9:21:00 EDT,Height, 97.2, kg, 10/26/21 9:21:00 EDT, Dry Weight Start Date: 11/15/21 Status: Ordered baclofen 20 mg oral tablet 20 mg, 1, tablet, By Mouth, 4 times a day, # 120 tablet, Refills 5, Tot. Refills 5, Maintenance, 10/26/21 9:45:00 EDT, Route to Pharmacy Electronically, [facility]/pharmacy #2072, 193, cm, 10/26/21 9:21:00 EDT, Height, 97.2, [...] 0 Refills, Maintenance, 04/06/20 16:11:00 EST, Gel, [facility]/pharmacy #[id number], Partial fill upon patient request, 1 [...] 60 tablet, 11 Refills, 02/07/22 11:13:00 EDT, [facility]/pharmacy #[id number], 193, cm, 02/07/22 10:31:00 EDT, Height, 97.2, kg, 10/26/21 9:21:00 EDT, Dry Weight Start Date: 02/07/22 Status: Ordered folic acid 1 mg oral tablet 1, tablet, By Mouth, Daily, # 30 tablet, Refills 11, Tot. Refills 0, Maintenance, 11/22/20 8:13:00 EDT, Route to Pharmacy Electronically, [facility], 187.6, cm, 10/19/20 9:25:00 EDT, Height, 101.4, kg, 08/27/20 1:59:00 EDT, Dry Weight Start Date: 11/22/20 Status: Ordered gabapentin 300 mg oral capsule 1, capsule, By Mouth, 3 times a day, # 90 capsule, Refills 5, Maintenance, 02/22/22 9:42:00 EDT, Route to Pharmacy Electronically, [facility], 193, cm, 02/07/22 10:31:00 EDT, Height, 97.2, kg, 10/26/21 9:21:00 EDT, Dry Weight Start Date: 02/22/22 Status: Ordered ibuprofen 600 mg oral tablet 600 mg, 1, tablet, By Mouth, Every 8 hours, PRN, # 100 tablet, Refills 0, Tot. Refills 0, Maintenance, Pain , Moderate, 01/21/22 20:49:00 EDT, Route to Pharmacy Electronically, [facility]/pharmacy #[id number], Partial fill upon patient request if [...] Refills, Maintenance, 02/22/22 9:43:00 EDT, [facility], 193, cm, 02/07/22 10:31:00 EDT, Height, 97.2, kg, 10/26/21 9:21:00 EDT, Dry Weight Start Date: 02/22/22 Status: Ordered oxyCODONE 5 mg oral capsule 1 capsule = 5 mg, By Mouth, Every 6 hours, PRN as needed for pain, # 12 capsule, 0 Refills, Maintenance, 01/21/22 20:50:00 EDT, Capsule, [facility]/pharmacy #[id number], Partial fill upon patient request if [...] 03/15/21 22:43:00 EDT, Route to Pharmacy Electronically, [facility]/pharmacy #[id number], Partial fill upon patient request if the prescription is for a schedule II opioid dr... Start Date: 03/15/21 Status: Ordered Right ankle & foot orthosis Right ankle & foot orthosis, See Instructions, # 1 each, Refills 1, Tot. Refills 1, Maintenance, Please dispense 1 right ankle and foot othosis Dx: R29.898, R26.81, M25.373 Length of need: 99 months Number to fax to: [phone], 01/06/21 13:10:00 E... Start Date: 01/06/21 Status: Ordered scopolamine 1 mg/72 hr transdermal film, extended release 1 film, Topically, Every 72 hours, Apply to right mastoid bone, # 10 each, 1 Refills, Acute 07/13/22 10:00:00 EST, 07/12/21 16:55:00 EST, [facility]/pharmacy #[id number], Partial fill upon patient request if the prescription is for a schedule II opioid drug., 1 fi... Start Date: 07/12/21 Stop Date: 07/13/22 Status: Ordered scopolamine 1 mg/72 hr transdermal film, extended release 1 film, Topically, Every 72 hours, Apply to right mastoid bone, # 24 each, 1 Refills, Maintenance, 07/13/22 10:00:00 EST, [facility]/pharmacy #[id number], Partial fill upon patient request if the prescription is for a schedule II opioid drug., 1 film Topically Lucía... Start Date: 07/13/22 Status: Ordered tiZANidine 2 mg oral tablet See Instructions, 1 tablet by mouth twice a day, # 60 tablet, Refills 3, Tot. Refills 3, Maintenance, 12/13/21 16:11:00 EDT, Instructions Replace Required Details, Route to Pharmacy Electronically, [facility]/pharmacy #[id number], Partial fill upon patient request... Start [...] tablet, 11 Refills, Maintenance, 11/22/20 8:13:00 EDT, [facility] STORE 97987, 187.6, cm, 10/19/20 9:25:00 EDT, Height, 101.4, [...] Insomnia Confirmed Active N CP Care Management, Drug Worker Carmen Elizabeth [phone] Confirmed Active Therapeutic drug monitoring Confirmed Active Spasticity Confirmed Active Tobacco dependence Confirmed Active Social History Social History Type Response Smoking Status 10 or more cigarette s (1/2 pack or more)/day in last 30 days entered on: 02/29/20 Sex Patient Care team information Care Team Personnel Name: Bettye Carney Position: S RN Member Role: Primary Care Nurse Name: Derek Tomas MD Position: [facility] Resident Member Role: PCP Address: Address: [address] [place] [address] Name: Ally Boyd RN Position: [facility] RN Member Role: Primary Care Nurse Name: Areli Whitaker RN Position: [facility] ED RN W/OE and Tasks Member Role: Primary Care Nurse Name: Axel Savage RN Position: [facility] RN Member Role: Primary Care Nurse Name: Filemon King RN Position: [facility] RN Member Role: Primary Care Nurse Care Team Related Persons Name: BEVERLY REYNAGA Address: [address] [address] Name: AISLINN DE LA PAZ Address: [address] [address]
--- OUTSIDE RECORDS SUMMARY | 2023-02-03 22:24 | XMS_ITS | Continuity of Care Document ---
Author Name Unknown Organization [facility] Address [address] [facility], [address] Floor, [address] [place] [address]- Care Team Providers Care Helper Marble Finisher Name Role Phone Judie Mills DO Primary Care Physician Encounter [facility] [place] Date(s): 09/19/20 - 09/26/20 [facility] [address], [address], [address] [place] [address] Attending Physician: Kasia Griffith MD Allergies, Adverse Reactions, Alerts Substance Reaction Severity Status NKA Active Medications amLODIPine 5 mg oral tablet 5 mg, 1, tablet, By Mouth, Daily, Refills 0, Maintenance, 09/12/20 14:41:00 EDT, Partial fill upon patient request if the prescription is for a schedule II opioid drug. Start Date: 09/12/20 Status: Ordered apixaban = 5 mg, By Mouth, 2 times a day, 0 Refills, Maintenance, 09/12/20 14:41:00 EDT, Tablet, Partial fill upon patient request if the prescription is for a schedule II opioid drug. Start Date: 09/12/20 Status: Ordered clindamycin 1% topical gel 1 [...] opioid drug. Start Date: 09/12/20 Status: Ordered gabapentin 100 mg oral capsule 100 mg, 1, capsule, By Mouth, 3 times a day, Refills 0, Maintenance, 09/12/20 14:41:00 EDT, Partialfill upon patient request if the prescription is for a schedule II opioid drug. Start Date: 09/12/20 Status: Ordered Humira Pen Crohns/Ulcer Colitis/Hidradenitis Suppurativa [...] opioid drug. Start Date: 09/12/20 Status: Ordered Problem List Condition Effective Dates Status Health Status Inform ant Hidradenitis suppurativa(Confirmed) Active Wound of buttock(Confirmed) Active Tobacco dependence(Confirmed) Active Social History Social History Type Response Smoking Status 10 or more cigarette s (1/2 pack or more)/day in last 30 days entered on: 02/29/20 Sex
--- OUTSIDE RECORDS SUMMARY | 2023-02-03 22:24 | XMS_ITS | Continuity of Care Document ---
Author Name Unknown Organization [facility] Address [address] [place] [address]- Care Team Providers Care Senior Hris Analyst Name Role Phone Judie Mills DO Primary Care Physician [phone] [place] [facility] [place] - 11/27/[address] [address] Allergies, Adverse Reactions, Alerts Substance Reaction [...] 11/22/20 8:13:00 EDT, Route to Pharmacy Electronically, [facility] 59916, 187.6, cm, 10/19/20 9:25:00 EDT, Height, 101.4, kg, 08/27/20 1:59:00 EDT, Dry Weight Start Date: 11/22/20 Status: Ordered gabapentin 100 mg oral capsule 100 mg, 1, capsule, By Mouth, 3 times a day, # 90 capsule, Refills 11, Tot. Refills 11, Maintenance, 11/02/20 17:57:00 EDT, Route to Pharmacy Electronically, [facility]/pharmacy #7001, Partial fill upon patient request if the [...] 11/25/20 15:58:00 EDT, Route to Pharmacy Electronically, [facility]/pharmacy #[id number], Partial fill upon patient request if the [...] Refills, Maintenance, 11/22/20 8:13:00 EDT, [facility], 187.6, cm, 10/19/20 9:25:00 EDT, Height, 101.4, [...]
--- OUTSIDE RECORDS SUMMARY | 2023-02-03 22:24 | XMS_ITS | Continuity of Care Document ---
Author Name Unknown Organization [facility] Address [address] [place] [address]- Care Team Providers Care Filing Clerk Name Role Phone Judie Mills DO Primary Care Physician [phone] [place] [facility] [place] Date(s): 10/27/20 - 11/26/[address] [address] Allergies, Adverse Reactions, Alerts [...] 11/22/20 8:13:00 EDT, Route to Pharmacy Electronically, [facility] STORE [address]87, 187.6, cm, 10/19/20 9:25:00 EDT, Height, 101.4, kg, 08/27/20 1:59:00 EDT, Dry Weight Start Date: 11/22/20 Status: Ordered gabapentin 100 mg oral capsule 100 mg, 1, capsule, By Mouth, 3 times a day, # 90 capsule, Refills 11, Tot. Refills 11, Maintenance, 11/02/20 17:57:00 EDT, Route to Pharmacy Electronically, [facility]/pharmacy #[id number], Partial fill upon patient request if the [...] 11/25/20 15:58:00 EDT, Route to Pharmacy Electronically, [facility]/pharmacy #[id number], Partial fill upon patient request if the [...] Refills, Maintenance, 11/22/20 8:13:00 EDT, [facility], 187.6, cm, 10/19/20 9:25:00 EDT, Height, 101.4, [...]
--- OUTSIDE RECORDS SUMMARY | 2023-02-03 22:24 | XMS_ITS | Continuity of Care Document ---
Author Name Unknown Organization [facility] Address [address] [place] [address]- Care Team Providers Care Director Weights And Measures Name Role Phone Judie Mills DO Primary Care Physician Encounter [facility] Date(s): 04/06/20 - 05/06/20 [facility] [address] [place] [address]- Attending Physician: Mariza Mao MD Admitting Physician: Mariza Mao MD Referring Physician: Judie Mills DO Allergies, Adverse Reactions, Alerts Substance Reaction Severity Status NKA Active Medications clindamycin 1% topical gel 1 application, Topically, 2 times a day, # 60 Gm, 0 Refills, Maintenance, 04/06/20 16:11:00 EST, Gel, [id number], Partial fill upon patient request, 1 application Topically 2 times a day, 187.6, cm, 02/29/20 15:04:00 EDT, Height Start Date: 04/06/20 Status: Ordered nicotine 4 mg oral transmucosal gum 1 each = 4 mg, Chew, Every 2 hours, PRN as needed for smoking cessation, # 40 each, 0 Refills, Acute 06/13/20 16:04:00 EST, 03/10/20 16:03:00 EDT, Gum, [id number], 187.6, cm, 02/29/20 15:04:00 EDT, Height Start Date: 03/10/20 Stop Date: 06/13/20 Status: Ordered Readi-Cat 2 oral suspension See Instructions, Dispense 2 bottles (450ml each bottle). Drink first bottle [address] Drink second bottle [address] scan., # 2 each, 0 Refills, Maintenance, 02/29/20 15:56:00 EDT, [id number], Dispense 2 bottles... Start Date: 02/29/20 Status: Ordered Problem List Condition Effective Dates Status Health Status Inform ant Hidradenitis suppurativa(Confirmed) Active Wound of buttock(Confirmed) Active Tobacco dependence(Confirmed) Active Social History Social History Type Response Smoking Status 10 or more cigarette s (1/2 pack or more)/day in last 30 days entered on: 02/29/20 Sex
--- OUTSIDE RECORDS SUMMARY | 2023-02-03 22:24 | XMS_ITS | Continuity of Care Document ---
Author Name Unknown Organization [facility] Address [address] [place] [address]- Care Team Providers Care Letterpress Printing Machinist Name Role Phone Judie Mills DO Primary Care Physician [phone] [place] [facility] [place](s): 11/09/20 - 12/09/[address] [address] Allergies, Adverse Reactions, Alerts Substance Reaction Severity [...] [facility] STORE [address]2597, 187.6, cm, 10/19/20 9:25:00 EDT, Height, 101.4, kg, 08/27/20 1:59:00 EDT, Dry Weight Start Date: 11/22/20 Status: Ordered gabapentin 100 mg oral capsule 100 mg, 1, capsule, By Mouth, 3 times a day, # 90 capsule, Refills 11, Tot. Refills 11, Maintenance, 11/02/20 17:57:00 EDT, Route to Pharmacy Electronically, [facility]pharmacy #[id number], Partial fill upon patient request if the [...] [facility][id number], Partial fill upon patient request if the [...] Refills, Maintenance, 11/22/20 8:13:00 EDT, [facility], 187.6, cm, 10/19/20 9:25:00 EDT, Height, 101.4, [...]
--- OUTSIDE RECORDS SUMMARY | 2023-02-03 22:24 | XMS_ITS | Continuity of Care Document ---
Author Name Unknown Organization [facility] Address [address] [place] [address]- Care Team Providers Care Roll Table Operator Name Role Phone Judie Mills DO Primary Care Physician [phone] Encounter [facility] Date(s): 03/03/21 - 04/02/[address] [address] Attending Physician: Sangeetha Latif Admitting Physician: Admtr, [email or web address] Referring Physician: Admtr, [id number] Allergies, Adverse Reactions, Alerts Substance Reaction Severity Status NKA Active Immunizations Given and Recorded Vaccine Date Status Refusal Reason tetanus/diphtheria/pertussis, acel(Tdap) 09/13/19 Recorded Medications amLODIPine 5 mg oral tablet 5 mg, 1, tablet, By Mouth, Daily, # 30 tablet, Refills 11, Tot. Refills 11, Maintenance, 10/31/20 12:56:00 EDT, Route to Pharmacy Electronically, [facility]/pharmacy #[id number], Partial fill upon patient requestif [...] 11/22/20 8:13:00 EDT, Route to Pharmacy Electronically, [facility] STORE 71397, 187.6, cm, 10/19/20 9:25:00 EDT, Height, 101.4, kg, 08/27/20 1:59:00 EDT, Dry Weight Start Date: 11/22/20 Status: Ordered gabapentin 100 mg oral capsule 100 mg, 1, capsule, By Mouth, 3 times a day, # 90 capsule, Refills 11, Tot. Refills 11, Maintenance, 11/02/20 17:57:00 EDT, Route to Pharmacy Electronically, [facility]/pharmacy #[id number], Partial fill upon patient request if the prescription is for a schedule I... Start Date: 11/02/20 Status: Ordered metoclopramide 10 mg oral tablet, disintegrating 1 tablet = 10 mg, By Mouth, Every 8 hours, PRN Nausea & Vomiting, # 28 tablet, 0 Refills, Maintenance, 02/24/21 17:09:00 EDT, DIS Tablet, [facility]/pharmacy #[id number], Partial fill upon patient [...] 5 Refills, Maintenance, 03/13/21 13:24:00 EDT, ECCapsule, [facility]/pharmacy #[id number], Partial fill upon patient [...] 03/15/21 22:43:00 EDT, Route to Pharmacy Electronically, [facility]/pharmacy #[id number], Partial fill upon patient [...] need: 99 months Number to fax to: [phone], 01/06/21 13:10:00 E... Start Date: 01/06/21 Status: Ordered SEROquel 25 mg oral tablet 25 mg, 1, tablet, By Mouth, 2 times a day, # 60 tablet, Refills 3, Tot. Refills 3, Maintenance, 11/25/20 15:58:00 EDT, Route to Pharmacy Electronically, [facility]/pharmacy #0511, Partial fill upon patient request if the [...] Refills, Maintenance, 11/22/20 8:13:00 EDT, [facility], 187.6, cm, 10/19/20 9:25:00 EDT, Height, 101.4, [...]
--- OUTSIDE RECORDS SUMMARY | 2023-02-03 22:24 | XMS_ITS | Continuity of Care Document ---
Author Name Unknown Organization [facility] Address [address] [place] [address]- Care Team Providers Care Advertising Specialist Name Role Phone Judie Mills DO Primary Care Physician [id number] Date(s): 06/12/21 - 07/15/[address] [address] Attending Physician: Vinay Goldberg MD Admitting Physician: Vinay Goldberg MD Referring Physician: Vinay Goldberg MD Allergies, Adverse Reactions, Alerts No Known Allergies Immunizations Given and Recorded Vaccine Date Status Refusal Reason tetanus/diphtheria/pertussis, acel(Tdap) 09/13/19 Recorded Medications amLODIPine 5 mg oral tablet 5 mg, 1, tablet, By Mouth, Daily, # 30 tablet, Refills 11, Tot. Refills 11, Maintenance, 10/31/20 12:56:00 EDT, Route to Pharmacy Electronically, [facility]/pharmacy #[id number], Partial fill upon patient requestif [...] 07/12/21 17:17:00 EST, Route to Pharmacy Electronically, [facility]/pharmacy #[id number], Partial fill upon patient request if the prescription is for a schedule II opi... Start Date: 07/12/21 Status: Ordered clindamycin 1% topical gel 1 application, Topically, 2 times a day, # 60 Gm, 0 Refills, Maintenance, 04/06/20 16:11:00 EST, Gel, [facility]/pharmacy #[id number], Partial fill upon patient request, [...] 11/22/20 8:13:00 EDT, Route to Pharmacy Electronically, [facility] STORE 99432, 187.6, cm, 10/19/20 9:25:00 EDT, Height, 101.4, kg, 08/27/20 1:59:00 EDT, Dry Weight Start Date: 11/22/20 Status: Ordered gabapentin 300 mg oral capsule 300 mg, 1, capsule, By Mouth, 3 times a day, # 90 capsule, Refills 5, Tot. Refills 5, Maintenance, 07/12/21 17:20:00 EST, Route to Pharmacy Electronically, [facility]/pharmacy #[id number], Partial fill upon patient request if the prescription is for a schedule II... Start Date: 07/12/21 Status: Ordered gabapentin 300 mg oral capsule 300 mg, 1, capsule, By Mouth, Daily at bedtime, # 30 capsule, Refills 3, Tot. Refills 3, Maintenance, 11/22/21 14:16:00 EST, [id number], Note bedtime dose change, 193, cm, 03/15/21 16:10:00 EDT, Height, 104.5,... Start Date: 04/03/21 Stop Date: 08/01/21 Status: Ordered metoclopramide 10 mg oral tablet, disintegrating 1 tablet = 10 mg, By Mouth, Every 8 hours, PRN Nausea & Vomiting, # 28 tablet, 0 Refills, Maintenance, 02/24/21 17:09:00 EDT, DIS Tablet, [facility]/pharmacy #[id number], Partial fill upon patient request [...] 5 Refills, Maintenance, 03/13/21 13:24:00 EDT, ECCapsule, [facility]/pharmacy #[id number], Partial fill upon patient request [...] 03/15/21 22:43:00 EDT, Route to Pharmacy Electronically, [facility]/pharmacy #[id number], Partial fill upon patient request if the prescription is for a schedule II opioid drSamira.Samira Start Date: 03/15/21 Status: Ordered Right ankle & foot orthosis Right ankle & foot orthosis, See Instructions, # 1 each, Refills 1, Tot. Refills 1, Maintenance, Please dispense 1 right ankle and foot othosis Dx: R29.898, R26.81, M25.373 Length of need: 99 months Number to fax to: [phone], 01/06/21 13:10:00 E... Start Date: 01/06/21 Status: Ordered scopolamine 1 mg/72 hr transdermal film, extended release 1 film, Topically, Every 72 hours, Apply to right mastoid bone, # 10 each, 1 Refills, Acute 07/13/22 10:00:00 EST, 07/12/21 16:55:00 EST, [facility]/pharmacy #[id number], Partial fill upon patient request [...] tablet, 11 Refills, Maintenance, 11/22/20 8:13:00 EDT, [facility] STORE 48367, 187.6, cm, 10/19/20 9:25:00 EDT, Height, 101.4, [...]
--- OUTSIDE RECORDS SUMMARY | 2023-02-03 22:24 | XMS_ITS | Continuity of Care Document ---
Author Name Unknown Organization [facility] Address [address] [place] [address]- Care Team Providers Care Bioinformatics Support Specialist Name Role Phone Judie Mills DO Primary Care Physician [phone] [place] [facility] [place]/11/20 - 12/11/[address] [address] Allergies, Adverse Reactions, Alerts [...] 11/22/20 8:13:00 EDT, Route to Pharmacy Electronically, [facility] STORE [address]8064, 187.6, cm, 10/19/20 9:25:00 EDT, Height, 101.4, kg, 08/27/20 1:59:00 EDT, Dry Weight Start Date: 11/22/20 Status: Ordered gabapentin 100 mg oral capsule 100 mg, 1, capsule, By Mouth, 3 times a day, # 90 capsule, Refills 11, Tot. Refills 11, Maintenance, 11/02/20 17:57:00 EDT, Route to Pharmacy Electronically, [facility]/pharmacy #0206, Partial fill upon patient request if the [...] 11/25/20 15:58:00 EDT, Route to Pharmacy Electronically, [facility]/pharmacy #[id number], Partial fill upon patient request if the [...] Refills, Maintenance, 11/22/20 8:13:00 EDT, [facility], 187.6, cm, 10/19/20 9:25:00 EDT, Height, 101.4, [...]
--- OUTSIDE RECORDS SUMMARY | 2023-02-03 22:24 | XMS_ITS | Continuity of Care Document ---
Author Name Unknown Organization [facility] Address [address] [place] [address]- Care Team Providers Care Solution Sales Senior Executive Name Role Phone Judie Mills DO Primary Care Physician Encounter [facility] Date(s): 11/30/20 - 12/30/[address] [address] Allergies, Adverse Reactions, Alerts [...] 11/22/20 8:13:00 EDT, Route to Pharmacy Electronically, [facility] STORE 83736, 187.6, cm, 10/19/20 9:25:00 EDT, Height, 101.4, kg, 08/27/20 1:59:00 EDT, Dry Weight Start Date: 11/22/20 Status: Ordered gabapentin 100 mg oral capsule 100 mg, 1, capsule, By Mouth, 3 times a day, # 90 capsule, Refills 11, Tot. Refills 11, Maintenance, 11/02/20 17:57:00 EDT, Route to Pharmacy Electronically, [facility]/pharmacy #0153, Partial fill upon patient request if the [...] 11/25/20 15:58:00 EDT, Route to Pharmacy Electronically, [facility]/pharmacy #[id number], Partial fill upon patient request if the [...] Refills, Maintenance, 11/22/20 8:13:00 EDT, [facility], 187.6, cm, 10/19/20 9:25:00 EDT, Height, 101.4, [...]
--- OUTSIDE RECORDS SUMMARY | 2023-02-03 22:24 | XMS_ITS | Continuity of Care Document ---
Author Name Unknown Organization [facility] Address [address] [place] [address]- Care Team Providers Care Professional Skater Name Role Phone Judie Mills DO Primary Care Physician [phone] [place] [facility] [place]07[place] - 07/12/[address] [address] Attending Physician: Not on Staff, Attending MD Allergies, Adverse Reactions, Alerts No Known Allergies Immunizations Given and Recorded Vaccine Date Status Refusal Reason tetanus/diphtheria/pertussis, acel(Tdap) 09/13/19 Recorded Medications amLODIPine 5 mg oral tablet 5 mg, 1, tablet, By Mouth, Daily, # 30 tablet, Refills 11, Tot. Refills 11, Maintenance, 10/31/20 12:56:00 EDT, Route to Pharmacy Electronically, [facility]/pharmacy #[id number], Partial fill upon patient requestif the [...] 07/12/21 17:17:00 EST, Route to Pharmacy Electronically, [facility]/pharmacy #[id number], Partial fill upon patient request if the prescription is for a schedule II opi... Start Date: 07/12/21 Status: Ordered clindamycin 1% topical gel 1 application, Topically, 2 times a day, # 60 Gm, 0 Refills, Maintenance, 04/06/20 16:11:00 EST, Gel, [facility]/pharmacy #[id number], Partial fill upon patient request, 1 [...] 8:13:00 EDT, Route to Pharmacy Electronically, [facility] STORE 89773, 187.6, cm, 10/19/20 9:25:00 EDT, Height, 101.4, kg, 08/27/20 1:59:00 EDT, Dry Weight Start Date: 11/22/20 Status: Ordered gabapentin 300 mg oral capsule 300 mg, 1, capsule, By Mouth, 3 times a day, # 90 capsule, Refills 5, Tot. Refills 5, Maintenance, 07/12/21 17:20:00 EST, Route to Pharmacy Electronically, [facility]/pharmacy #[id number], Partial fill upon patient request if the prescription is for a schedule II... Start Date: 07/12/21 Status: Ordered gabapentin 300 mg oral capsule 300 mg, 1, capsule, By Mouth, Daily at bedtime, # 30 capsule, Refills 3, Tot. Refills 3, Maintenance, 04/03/21 14:16:00 EST, Route to Pharmacy Electronically, [facility]/pharmacy #[id number], Note bedtime dose change, 193, cm, 03/15/21 16:10:00 EDT, Height, 104.5,... Start Date: 04/03/21 Stop Date: 08/01/21 Status: Ordered metoclopramide 10 mg oral tablet, disintegrating 1 tablet = 10 mg, By Mouth, Every 8 hours, PRN Nausea & Vomiting, # 28 tablet, 0 Refills, Maintenance, 02/24/21 17:09:00 EDT, DIS Tablet, [facility]/pharmacy #[id number], Partial fill upon [...] 5 Refills, Maintenance, 03/13/21 13:24:00 EDT, ECCapsule, [facility]/pharmacy #[id number], Partial fill upon [...] 03/15/21 22:43:00 EDT, Route to Pharmacy Electronically, [facility]/pharmacy #[id number], Partial fill upon patient request if the prescription is for a schedule II opioid drChapin Start Date: 03/15/21 Status: Ordered Right ankle & foot orthosis Right ankle & foot orthosis, See Instructions, # 1 each, Refills 1, Tot. Refills 1, Maintenance, Please dispense 1 right ankle and foot othosis Dx: R29.898, R26.81, M25.373 Length of need: 99 months Number to fax to: [phone], 01/06/21 13:10:00 E... Start Date: 01/06/21 Status: Ordered scopolamine 1 mg/72 hr transdermal film, extended release 1 film, Topically, Every 72 hours, Apply to right mastoid bone, # 10 each, 1 Refills, Acute 07/13/22 10:00:00 EST, 07/12/21 16:55:00 EST, [facility]/pharmacy #[id number], Partial fill [...] Refills, Maintenance, 11/22/20 8:13:00 EDT, [facility], 187.6, cm, 10/19/20 9:25:00 EDT, Height, 101.4, [...]
--- OUTSIDE RECORDS SUMMARY | 2023-02-03 22:24 | XMS_ITS | Continuity of Care Document ---
Author Name Unknown Organization [facility] Address [address] [place] [address]- Care Team Providers Care Assembler Seat Name Role Phone Genoveva PAGAN, Derek Primary Care Physician Encounter [facility] [place] Date(s): 05/25/22 - 07/04/[address] [address]- Attending Physician: Not on Staff, Attending MD [...] Mouth, Daily, # 30 tablet, 11 Refills, [facility] STORE 91619, 193, cm, 10/26/21 9:21:00 EDT,Height, 97.2, kg, 10/26/21 9:21:00 EDT, Dry Weight Start Date: 11/15/21 Status: Ordered baclofen 20 mg oral tablet 20 mg, 1, tablet, By Mouth, 4 times a day, # 120 tablet, Refills 5, Tot. Refills 5, Maintenance, 10/26/21 9:45:00 EDT, Route to Pharmacy Electronically, [facility]/pharmacy #[id number], 193, cm, 10/26/21 9:21:00 [...] 1 Refills, Maintenance, 06/29/22 11:48:00 EST, ECCapsule, [facility]/pharmacy #[id number], Partial fill upon patient request if the prescription is for a schedule II opioid drug., 193.04, cm, 06/29/22 11:17:00 EST... Start Date: 06/29/22 Status: Ordered Eliquis 5 mg oral tablet 1 tablet, By Mouth, 2 times a day, # 60 tablet, 11 Refills, 02/07/22 11:13:00 EDT, [facility]/pharmacy #[id number], 193, cm, 02/07/22 10:31:00 [...] 02/22/22 9:42:00 EDT, Route to Pharmacy Electronically, [facility] STORE 45562, 193, cm, 02/07/22 10:31:00 EDT, Height, 97.2, kg, 10/26/21 9:21:00 EDT, Dry Weight Start Date: 02/22/22 Status: Ordered omeprazole 40 mg oral enteric coated capsule 1 capsule, By Mouth, Daily, # 30 capsule, 5 Refills, Maintenance, 02/22/22 9:43:00 EDT, [facility], 193, cm, 02/07/22 10:31:00 EDT, Height, 97.2, kg, 10/26/21 9:21:00 EDT, Dry Weight Start Date: 02/22/22 Status: Ordered Right ankle & foot orthosis Right ankle & foot orthosis, See Instructions, # 1 each, Refills 1, Tot. Refills 1, Maintenance, Please dispense 1 right ankle and foot othosis Dx: R29.898, R26.81, M25.373 Length of need: 99 months Number to fax to: [phone], 01/06/21 13:10:00 E... Start Date: 01/06/21 Status: Ordered scopolamine 1 mg/72 hr transdermal film, extended release See Instructions, APPLY 1 PATCH TO RIGHT MASTOID BONE EVERY 72 HOURS, # 10 each, 3 Refills, Maintenance, 06/29/22 11:46:00 EST, [facility]/pharmacy #[id number], APPLY 1 PATCH TO RIGHT MASTOID BONE EVERY 72 HOURS,193.04, cm, 06/29/22 11:17:00 EST, Height, 99.6, kg... Start Date: 06/29/22 Status: Ordered scopolamine 1 mg/72 hr transdermal film, extended release 1 film, Topically, Every 72 hours, Apply to right mastoid bone, # 24 each, 1 Refills, Maintenance, 07/13/22 10:00:00 EST, [facility]/pharmacy #[id number], Partial fill upon patient request if the prescription is for a schedule II opioid drug., 1 film Topically Lucía... Start Date: 07/13/22 Status: Ordered tiZANidine 2 mg oral tablet See Instructions, TAKE 1 TABLET BY MOUTH three times A DAY, # 90 tablet, Refills 6, Tot. Refills 6,Maintenance, 07/04/22 12:44:00 EST, Instructions Replace Required Details, Route to Pharmacy Electronically, [facility]/pharmacy #1130, 193.04, cm, 07/04/22... Start [...] 05/20/22 19:50:00 EST, Route to Pharmacy Electronically, [facility]/pharmacy #[id number], Partial fill upon patient request if the [...] apex Confirmed Active N CP Care Management, [employer] Profiler Carmen Elizabeth [phone] Confirmed Active Therapeutic drug monitoring Confirmed Active [...] CENTER Resident Member Role: PCP Address: Address: [address] [place] [address]- Name: Ally Boyd RN Position: [facility] [...] Persons Name: BEVERLY REYNAGA Address: [address] [place] [address] Name: AISLINN DE LA PAZ Address: [address] [place] [address]
--- OUTSIDE RECORDS SUMMARY | 2023-02-03 22:24 | XMS_ITS | Continuity of Care Document ---
Author Name Unknown Organization [facility] Address [address] [place] [address] [address] [place] [address]- Care Team Providers Care Parts Counterperson Name Role Phone Derek Tomas MD Primary Care Physician Encounter [facility] Date(s): 05/18/22 - 06/17/22 [facility] [address] [place] [address]- Allergies, Adverse Reactions, Alerts No Known Allergies Immunizations Given and Recorded Vaccine Date Status Refusal Reason influenza virus vaccine, inactivated 05/18/22 Give n tetanus/diphtheria/pertussis, acel(Tdap) 09/13/19 Recorded Medications 3 in 1 commode 3 in 1 commode, See Instructions, # 1 each, Refills 0, Tot. Refills 0, Maintenance, use as needed, 06/13/22 8:08:00 EST, Supply Start Date: 06/13/22 Status: Ordered acitretin 10 mg oral capsule TAKE 1 CAPSULE EVERY OTHER DAY FOR NEXT 2 WEEKS THEN 1 CAPSULE DAILY Start Date: 05/17/22 Status: Ordered amLODIPine 5 mg oral tablet 1 tablet, By Mouth, Daily, # 30 tablet, 11 Refills, [facility], 193, cm, 10/26/21 9:21:00 EDT,Height, 97.2, kg, 10/26/21 9:21:00 EDT, Dry Weight Start Date: 11/15/21 Status: Ordered baclofen 20 mg oral tablet 20 mg, 1, tablet, By Mouth, 4 times a day, # 120 tablet, Refills 5, Tot. Refills 5, Maintenance, 10/26/21 9:45:00 EDT, Route to Pharmacy Electronically, [facility]/pharmacy #[id number], 193, cm, 10/26/21 9:21:00 EDT, Height, 97.2, kg, 10/26/21 9:21:00 EDT, Dry Weight Start Date: 10/26/21 Status: Ordered clindamycin 150 mg oral capsule 3 capsule = 450 mg, By Mouth, 4 times a day, for 14 days, # 168 capsule, 0 Refills, Acute 06/21/22 12:43:00 EST, 06/07/22 12:43:00 EST, Capsule, [facility], Partial fill upon patient request if the prescription is for a schedule II opioi... Start Date: 06/07/22 Stop Date: 06/21/22 Status: Ordered Eliquis 5 mg oral tablet 1 tablet, By Mouth, 2 times a day, # 60 tablet, 11 Refills, 02/07/22 11:13:00 EDT, [facility]/pharmacy #[id number], 193, cm, 02/07/22 10:31:00 EDT, Height, [...] Replace Required Details, Route to Pharmacy Electronically, [facility], 193.04, cm, 06/07/22 13:41:00 EST, Height, 99.... Start Date: 06/11/22 Status: Ordered gabapentin 300 mg oral capsule 1, capsule, By Mouth, 3 times a day, # 90 capsule, Refills 5, Maintenance, 02/22/22 9:42:00 EDT, Route to Pharmacy Electronically, [facility], 193, cm, 02/07/22 10:31:00 EDT, Height, 97.2, kg, 10/26/21 9:21:00 EDT, Dry Weight Start Date: 02/22/22 Status: Ordered omeprazole 40 mg oral enteric coated capsule 1 capsule, By Mouth, Daily, # 30 capsule, 5 Refills, Maintenance, 02/22/22 9:43:00 EDT, [facility], 193, cm, 02/07/22 10:31:00 EDT, Height, 97.2, kg, 10/26/21 9:21:00 EDT, Dry Weight Start Date: 02/22/22 Status: Ordered Right ankle & foot orthosis Right ankle & foot orthosis, See Instructions, # 1 each, Refills 1, Tot. Refills 1, Maintenance, Please dispense 1 right ankle and foot othosis Dx: R29.898, R26.81, M25.373 Length of need: 99 months Number to fax to: [phone], 01/06/21 13:10:00 E... Start Date: 01/06/21 Status: Ordered scopolamine 1 mg/72 hr transdermal film, extended release 1 film, Topically, Every 72 hours, Apply to right mastoid bone, # 24 each, 1 Refills, Maintenance, 07/13/22 10:00:00 EST, [facility]/pharmacy #[id number], Partial fill upon patient request if the prescription is for a schedule II opioid drug., 1 film Topically Lucía... Start Date: 07/13/22 Status: Ordered tiZANidine 2 mg oral tablet See Instructions, TAKE 1 TABLET BY MOUTH TWICE A DAY, # 60 tablet, Refills 3, Maintenance, 06/11/2311:04:00 EST, Instructions Replace Required Details, Route to Pharmacy Electronically, [facility]607, 193.04, cm, 06/07/22 13:41:00 EST, Height, 99.6... Start Date: 06/11/22 Status: Ordered tiZANidine 2 mg oral tablet See Instructions, 1 tablet by mouth twice a day, # 60 tablet, Refills 3, Tot. Refills 3, Maintenance, 06/08/22 14:32:00 EST, Instructions Replace Required Details, Route to Pharmacy Electronically, [facility]/pharmacy #[id number], Partial fill upon patient request... Start Date: 06/08/22 Status: Ordered transfer tub bench transfer tub bench, See Instructions, # 1 each, Refills 0, Tot. Refills 0, Maintenance, use as needed, 06/13/22 8:07:00 EST, Supply Start Date: 06/13/22 Status: Ordered Tylenol 325 mg oral tablet 650 mg, 2, tablet, By Mouth, Every 4 hours, PRN, # 120 tablet, Refills 0, Tot. Refills 0, Acute 05/21/23 19:50:00 EST, for pain, 05/20/22 19:50:00 EST, Route to Pharmacy Electronically, [facility]/pharmacy #[id number], Partial fill upon patient request if the [...] apex Confirmed Active N CP Care Management, [employer] Carmen Elizabeth [phone] Confirmed Active Therapeutic drug monitoring Confirmed Active Peripheral neuropathy Confirmed Active Spasticity Confirmed Active Tobacco dependence Confirmed Active Social History Social History Type Response Smoking Status 5-9 cigarettes (betw een 1/4 to 1/2 pack)/day in last 30 days entered on: 05/16/22 Sex Patient Care team information Care Team Personnel Name: Areli Pittman RN Position: [facility] ED RN W/OE and Tasks Member Role: Primary Care Nurse Name: Bettye Carney Position: [facility] RN Member Role: Primary Care Nurse Name: Derek Tomas MD Position: S Resident Member Role: PCP Address: Address: [address] [place] [address] Name: Ally Boyd RN Position: S RN Member Role: Primary Care Nurse Name: Axel Savage RN Position: S RN Member Role: Primary Care Nurse Name: Filemon King RN Position: S RN Member Role: Primary Care Nurse Name: Glenys Fox RN Position: S RN Member Role: Primary Care Nurse Care Team Related Persons Name: BEVERLY REYNAGA Address: [address] [place] [address] Name: AISLINN DE LA PAZ Address: [address] [place] [address]
--- OUTSIDE RECORDS SUMMARY | 2023-02-03 22:24 | XMS_ITS | Continuity of Care Document ---
Author Name Unknown Organization [facility] Address Unknown Care Team Providers Care Test Engine Evaluator Name Role Phone Judie Mills DO Primary Care Physician [phone] Encounter [facility] Date(s): 10/26/21 - 11/25/21 [facility] Allergies, Adverse Reactions, Alerts No Known Allergies Immunizations Given and Recorded Vaccine Date Status Refusal Reason tetanus/diphtheria/pertussis, acel(Tdap) 09/13/19 Recorded Medications amLODIPine 5 mg oral tablet 1 tablet, By Mouth, Daily, # 30 tablet, 11 Refills, [facility], 193, cm, 10/26/21 9:21:00 EDT,Height, 97.2, kg, 10/26/21 9:21:00 EDT, Dry Weight Start Date: 11/15/21 Status: Ordered apixaban 5 mg oral tablet 1 tablet = 5 mg, By Mouth, 2 times a day, # 60 tablet, 11 Refills, Maintenance, 10/31/20 12:55:00 EDT, Tablet, [facility]/pharmacy #[id number], Partial fill upon patient request if the prescription is for a schedule II opioid drug., 187.6, cm, 10/19/20 9:25:00 EDT... Start Date: 10/31/20 Status: Ordered baclofen 20 mg oral tablet 20 mg, 1, tablet, By Mouth, 4 times a day, # 120 tablet, Refills 5, Tot. Refills 5, Maintenance, 10/26/21 9:45:00 EDT, Route to Pharmacy Electronically, [facility]/pharmacy #[id number], 193, cm, 10/26/21 9:21:00 EDT, [...] Refills, Maintenance, 04/06/20 16:11:00 EST, Gel, [facility]/pharmacy #[id number], Partial fill upon patient request, [...] EDT, Route to Pharmacy Electronically, [facility], 187.6, cm, 10/19/20 9:25:00 EDT, Height, 101.4, [...] 04/03/21 14:16:00 EST, [id number] Note bedtime dose change, 193, cm, 03/15/21 16:10:00 EDT, Height, 104.5,... Start Date: 04/03/21 Stop Date: 08/01/21 Status: Ordered metoclopramide 10 mg oral tablet, disintegrating 1 tablet = 10 mg, By Mouth, Every 8 hours, PRN Nausea & Vomiting, # 28 tablet, 0 Refills, Maintenance, 02/24/21 17:09:00 EDT, DIS Tablet, [facility]/pharmacy #[id number], Partial fill upon patient request [...] 5 Refills, Maintenance, 03/13/21 13:24:00 EDT, ECCapsule, [facility]/pharmacy #[id number], Partial fill upon patient request [...] 03/15/21 22:43:00 EDT, Route to Pharmacy Electronically, [facility]/pharmacy #[id number], Partial fill upon patient request [...] need: 99 months Number to fax to: [phone], 01/06/21 13:10:00 E... Start Date: 01/06/21 Status: Ordered scopolamine 1 mg/72 hr transdermal film, extended release 1 film, Topically, Every 72 hours, Apply to right mastoid bone, # 10 each, 1 Refills, Acute 07/13/22 10:00:00 EST, 07/12/21 16:55:00 EST, [facility]/pharmacy #[id number], Partial fill upon patient request if the prescription is for a schedule II opioid drug., 1 fi... Start Date: 07/12/21 Stop Date: 07/13/22 Status: Ordered scopolamine 1 mg/72 hr transdermal film, extended release 1 film, Topically, Every 72 hours, Apply to right mastoid bone, # 24 each, 1 Refills, Maintenance, 07/13/22 10:00:00 EST, [facility]/pharmacy #[id number], Partial fill upon patient request if the prescription is for a schedule II opioid drug., 1 film Topically Lucía... Start Date: 07/13/22 Status: Ordered Tylenol 325 mg [...] tablet, 11 Refills, Maintenance, 11/22/20 8:13:00 EDT, [facility]77, 187.6, cm, 10/19/20 9:25:00 EDT, Height, 101.4, [...] monitoring(Confirmed) Active Spasticity(Confirmed) Active Tobacco dependence(Confirmed) Active Social History Social History Type Response Smoking Status 10 or more cigarette s (1/2 pack or more)/day in last 30 days entered on: 02/29/20 Sex
--- OUTSIDE RECORDS SUMMARY | 2023-02-03 22:24 | XMS_ITS | Continuity of Care Document ---
Author Name Unknown Organization [facility] Address [address] [place] [address] [address] [place] [address]- Care Team Providers Care Bottle Feeder Name Role Phone Judie Mills DO Primary Care Physician [place] [facility] [place](s[place] 04/25/20 - 05/02/20 [facility] [address] [place], [place] [address] Encounter Diagnosis Hidradenitis suppurativa(Discharge Diagnosis) - 04/25/20 Attending Physician: Delon Rincon Referring Physician: Judie Mills DO Allergies, Adverse Reactions, Alerts Substance Reaction Severity Status NKA Active Medications Bactrim DS 800 mg-160 mg oral tablet 1 tablet, By Mouth, 2 times a day, for 10 days, # 20 tablet, 0 Refills, Acute 05/05/20 16:09:00 EST, 04/25/20 16:09:00 EST, [facility]t, [id number], Partial fill upon patient request if the prescription is for a schedule II opioid drug., 1 tablet B... Start Date: 04/25/20 Stop Date: 05/05/20 Status: Ordered clindamycin 1% topical gel 1 [...] 0 Refills, Maintenance, 02/29/20 15:56:00 EDT, [facility], Dispense 2 bottles... Start Date: 02/29/20 Status: Ordered Problem List Condition Effective Dates Status Health Status Inform ant Hidradenitis suppurativa(Confirmed) Active Wound of buttock(Confirmed) Active Tobacco dependence(Confirmed) Active Diagnosis Diagnosis Type Effective Dates Health Status Clinical Service Informant Hidradenitis suppurativa Discharge Diagnosis 04/25/20 Vital Signs Most recent to oldest [Reference Range]: 1 Height 187.6 cm (04/25/20 3:43 PM) Weight 107.6 kg (04/25/20 3:43 PM) Pulse Rate [55-90 bpm] 69 bpm (04/25/20 3:43 PM) Body Mass Index [18.5-24.99] 30.57 *>HHI* (04/25/20 3:43 PM) Blood Pressure [90-138/55-84 mm Hg] 130/ 79mm Hg (04/25/20 3:43 PM) Respiratory Rate [16-30 br/min] 16 br/mi n (04/25/20 3:43 PM) Temperature [96.8-100.4 DegF] 97.8 DegF (04/25/20 3:43 PM) Blood pressure sites Arm, left (04/25/20 3:43 PM) Temperature Route Temporal (04/25/20 3:43 PM) Weight Obtained Via Standing scale (04/25/20 3:43 PM) Social History Social History Type Response Smoking Status 10 or more cigarette s (1/2 pack or more)/day in last 30 days entered on: 02/29/20 Sex
--- OUTSIDE RECORDS SUMMARY | 2023-02-03 22:24 | XMS_ITS | Continuity of Care Document ---
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 Refills 5, Maintenance, 10/26/21 9:45:00 EDT, Route to Pharmacy Electronically, [facility]/pharmacy #[id number], 193, cm, 10/26/21 9:21:00 EDT, Height, [...] capsule, 5 Refills, Maintenance, 08/17/22 15:25:00 EDT, [facility], 193.04, cm, 07/23/22 14:07:00 EDT, Height, 99.6, kg, 06/06/22 18:00:00 EST, Dry Weight Start Date: 08/17/22 Status: Ordered Eliquis 5 mg oral tablet 1 tablet, By Mouth, 2 times a day, # 60 tablet, 11 Refills, 02/07/22 11:13:00 EDT, [facility] #[id number], 193, cm, 02/07/22 10:31:00 EDT, Height, 97.2, kg, 10/26/21 9:21:00 EDT, Dry Weight Start Date: 02/07/22 Status: Ordered ferrous sulfate 325 mg oral tablet TAKE 1 TABLET BY MOUTH EVERY DAY NEEDED Start Date: 09/12/22 Status: Ordered FLUoxetine 20 mg oral capsule 1, capsule, By Mouth, Daily, # 30 capsule, Refills 14, Maintenance, 08/13/22 15:55:00 EDT, Route toPharmacy Electronically, [facility], 193.04, cm, 07/23/22 14:07:00 EDT, Height, 99.6, [...] 02/22/22 9:42:00 EDT, Route to Pharmacy Electronically, [facility], 193, cm, 02/07/22 10:31:00 EDT, Height, 97.2, [...] capsule, 5 Refills, Maintenance, 08/13/22 15:28:00 EDT, [facility] #[id number], 193.04, cm, 07/23/22 14:07:00 EDT, Height, 99.6, kg, 06/06/22 18:00:00 EST, Dry Weight Start Date: 08/13/22 Status: Ordered oxycodone 15 mg oral tablet, extended release 1 tablet = 15 mg, By Mouth, Every 12 hours, # 60 tablet, 0 Refills, Maintenance, 10/16/22 16:53:00 EDT, ER Tablet, [facility]/pharmacy #1130, Partial fill upon patient request if [...] need: 99 months Number to fax to: [phone], 01/06/21 13:10:00 E... Start Date: 01/06/21 Status: Ordered scopolamine 1 mg/72 hr transdermal film, extended release See Instructions, APPLY 1 PATCH TO RIGHT MASTOID BONE EVERY 72 HOURS, # 10 each, 3 Refills, Maintenance, 06/29/22 11:46:00 EST, [facility] #[id number], APPLY 1 PATCH TO RIGHT MASTOID BONE EVERY 72 HOURS,193.04, cm, 06/29/22 11:17:00 EST, Height, 99.6, kg... Start Date: 06/29/22 Status: Ordered scopolamine 1 mg/72 hr transdermal film, extended release 1 film, Topically, Every 72 hours, Apply to right mastoid bone, # 24 each, 1 Refills, Maintenance, 07/13/22 10:00:00 EST, [facility] #[id number], Partial fill upon patient request if [...] 05/20/22 19:50:00 EST, Route to Pharmacy Electronically, [facility]/pharmacy #7393, Partial fill upon patient request if the [...] apex Confirmed Active N CP Care Management, Licensed Chemical Spray Technician Carmen Elizabeth [phone] Confirmed Active Therapeutic drug monitoring Confirmed Active Peripheral neuropathy Confirmed Active Spasticity Confirmed Active Tobacco dependence Confirmed Active Social History Social History Type Response Smoking Status 5-9 cigarettes (betw een 1/4 to 1/2 pack)/day in last 30 days entered on: 05/16/22 Sex Patient Care team information Care Team Personnel Name: Areli Pittman RN Position: [facility] ED RN W/OE and Tasks Member Role: Primary Care Nurse Name: Derek Tomas MD Position: [facility] Resident Member Role: PCP Address: Address: [address] [place] [address]- Name: Ally Boyd RN Position: [facility] RN Member Role: Primary Care Nurse Name: Axel Savage RN Position: S RN Member Role: Primary Care Nurse Name: Filemon King RN Position: S RN Member Role: Primary Care Nurse Name: Glenys Fox RN Position: [facility] RN Member Role: Primary Care Nurse Care Team Related Persons Name: BEVERLY REYNAGA Address: [address] [place] [address] Name: AISLINN DE LA PAZ Address: [address] [place] [address]
--- OUTSIDE RECORDS SUMMARY | 2023-02-03 22:24 | XMS_ITS | Continuity of Care Document ---
Author Name Unknown Organization [facility] Address [address] [place] [address]- Care Team Providers Care Liaison Planner Name Role Phone Genoveva PAGAN, Derek Primary Care Physician Encounter [facility] [place] Date(s): 02/28/22 - 03/30/22 [facility] [address] [place] [address]- Allergies, Adverse Reactions, Alerts No Known Allergies Immunizations Given and Recorded Vaccine Date Status Refusal Reason tetanus/diphtheria/pertussis, acel(Tdap) 09/13/19 Recorded Medications acetaminophen 325 mg oral capsule 2 capsule = 650 mg, By Mouth, Every 6 hours, PRN Pain , Moderate, # 90 capsule, 0 Refills, Maintenance, 01/21/22 20:50:00 EDT, Capsule, [facility]/pharmacy #[id number], Partial fill upon patient request if the prescription is for a schedule II opioid drug., 193, c... Start Date: 01/21/22 Status: Ordered amLODIPine 5 mg oral tablet 1 tablet, By Mouth, Daily, # 30 tablet, 11 Refills, [facility], 193, cm, 10/26/21 9:21:00 EDT,Height, 97.2, kg, 10/26/21 9:21:00 EDT, Dry Weight Start Date: 11/15/21 Status: Ordered baclofen 20 mg oral tablet 20 mg, 1, tablet, By Mouth, 4 times a day, # 120 tablet, Refills 5, Tot. Refills 5, Maintenance, 10/26/21 9:45:00 EDT, Route to Pharmacy Electronically, [facility]/pharmacy #207, 193, cm, 10/26/21 9:21:00 EDT, [...] 0 Refills, Maintenance, 04/06/20 16:11:00 EST, Gel, [facility]/pharmacy #[id number], Partial fill upon patient request, [...] 60 tablet, 11 Refills, 02/07/22 11:13:00 EDT, [facility]/pharmacy #207, 193, cm, 02/07/22 10:31:00 EDT, Height, 97.2, kg, 10/26/21 9:21:00 EDT, Dry Weight Start Date: 02/07/22 Status: Ordered folic acid 1 mg oral tablet 1, tablet, By Mouth, Daily, # 30 tablet, Refills 11, Tot. Refills 0, Maintenance, 11/22/20 8:13:00 EDT, Route to Pharmacy Electronically, [facility]248, 187.6, cm, 10/19/20 9:25:00 EDT, Height, 101.4, kg, 08/27/20 1:59:00 EDT, Dry Weight Start Date: 11/22/20 Status: Ordered gabapentin 300 mg oral capsule 1, capsule, By Mouth, 3 times a day, # 90 capsule, Refills 5, Maintenance, 02/22/22 9:42:00 EDT, Route to Pharmacy Electronically, [facility], 193, cm, 02/07/22 10:31:00 EDT, Height, 97.2, kg, 10/26/21 9:21:00 EDT, Dry Weight Start Date: 02/22/22 Status: Ordered ibuprofen 600 mg oral tablet 600 mg, 1, tablet, By Mouth, Every 8 hours, PRN, # 100 tablet, Refills 0, Tot. Refills 0, Maintenance, Pain , Moderate, 01/21/22 20:49:00 EDT, Route to Pharmacy Electronically, [facility]/pharmacy #[id number], Partial fill upon patient request [...] Refills, Maintenance, 02/24/21 17:09:00 EDT, DIS Tablet, [facility]/pharmacy #[id number], Partial fill upon patient request [...] Refills, Maintenance, 02/22/22 9:43:00 EDT, [facility], 193, cm, 02/07/22 10:31:00 EDT, Height, 97.2, kg, 10/26/21 9:21:00 EDT, Dry Weight Start Date: 02/22/22 Status: Ordered oxyCODONE 5 mg oral capsule 1 capsule = 5 mg, By Mouth, Every 6 hours, PRN as needed for pain, # 12 capsule, 0 Refills, Maintenance, 01/21/22 20:50:00 EDT, Capsule, [facility]/pharmacy #[id number], Partial fill upon patient request [...] 22:43:00 EDT, Route to Pharmacy Electronically, [facility]/pharmacy #[id number], Partial fill upon patient request [...] need: 99 months Number to fax to: [phone], 01/06/21 13:10:00 E... Start Date: 01/06/21 Status: Ordered scopolamine 1 mg/72 hr transdermal film, extended release 1 film, Topically, Every 72 hours, Apply to right mastoid bone, # 10 each, 1 Refills, Acute 07/13/22 10:00:00 EST, 07/12/21 16:55:00 EST, [facility]/pharmacy #[id number], Partial fill upon patient request if the prescription is for a schedule II opioid drug., 1 fi... Start Date: 07/12/21 Stop Date: 07/13/22 Status: Ordered scopolamine 1 mg/72 hr transdermal film, extended release 1 film, Topically, Every 72 hours, Apply to right mastoid bone, # 24 each, 1 Refills, Maintenance, 07/13/22 10:00:00 EST, [facility]/pharmacy #[id number], Partial fill upon patient request if the prescription is for a schedule II opioid drug., 1 film Topically Lucía... Start Date: 07/13/22 Status: Ordered tiZANidine 2 mg oral tablet See Instructions, 1 tablet by mouth twice a day, # 60 tablet, Refills 3, Tot. Refills 3, Maintenance, 12/13/21 16:11:00 EDT, Instructions Replace Required Details, Route to Pharmacy Electronically, [facility]/pharmacy #[id number], Partial fill upon patient request... [...] tablet, 11 Refills, Maintenance, 11/22/20 8:13:00 EDT, [facility], 187.6, cm, 10/19/20 9:25:00 EDT, Height, 101.4, [...] buttock Confirmed Active Insomnia Confirmed Active N [facility] Care Management, Animation Camera Operator Carmen Elizabeth [phone] Confirmed Active Therapeutic drug monitoring Confirmed Active Spasticity Confirmed Active Tobacco dependence Confirmed Active Social History Social History Type Response Smoking Status 10 or more cigarette s (1/2 pack or more)/day in last 30 days entered on: 02/29/20 Sex Patient Care team information Care Team Personnel Name: Bettye Carney Position: [facility] RN Member Role: Primary Care Nurse Name: Derek Tomas MD Position: [facility] Resident Member Role: PCP Address: Address: [address] [place] [address] Name: Ally Boyd RN Position: [facility] RN Member Role: Primary Care Nurse Name: Areli Whitaker RN Position: [facility] ED RN W/OE and Tasks Member Role: Primary Care Nurse Name: Janette BUSTAMANTE, Axel Position: [facility] RN Member Role: Primary Care Nurse Name: Filemon King RN Position: [facility] RN Member Role: Primary Care Nurse Care Team Related Persons Name: JUHI BEVERLY Address: [address] [address] Name: AISLINN DE LA PAZ Address: [address] [address]
--- OUTSIDE RECORDS SUMMARY | 2023-02-03 22:24 | XMS_ITS | Continuity of Care Document ---
Author Name Unknown Organization [facility] Address [address] [place] [address]- Care Team Providers Care Speech Assistant Name Role Phone Judie Mills DO Primary Care Physician [phone] Encounter [facility] [place] Date(s): 03/21/21 - 04/20/21 [facility] [address] [place] [address]- [place] Allergies, Adverse Reactions, Alerts Substance Reaction Severity [...] [facility] STORE [address]192, 187.6, cm, 10/19/20 9:25:00 EDT, Height, 101.4, kg, 08/27/20 1:59:00 EDT, Dry Weight Start Date: 11/22/20 Status: Ordered gabapentin 100 mg oral capsule 100 mg, 1, capsule, By Mouth, 2 times a day, # 60 capsule, Refills 11, Tot. Refills 11, Maintenance, 04/03/21 14:15:00 EST, Route to Pharmacy Electronically, [facility]/pharmacy #[id number], note dose change, 193, cm, 03/15/21 16:10:00 EDT, Height, 104.5, kg, 10/0... Start Date: 04/03/21 Stop Date: 03/29/22 Status: Ordered gabapentin 300 mg oral capsule 300 mg, 1, capsule, By Mouth, Daily at bedtime, # 30 capsule, Refills 3, Tot. Refills 3, Maintenance, 04/03/21 14:16:00 EST, Route to Pharmacy Electronically, [facility]/pharmacy #[id number], Note bedtime dose change, 193, cm, 03/15/21 16:10:00 EDT, Height, 104.5,... Start Date: 04/03/21 Stop Date: 08/01/21 Status: Ordered metoclopramide 10 mg oral tablet, disintegrating 1 tablet = 10 mg, By Mouth, Every 8 hours, PRN Nausea & Vomiting, # 28 tablet, 0 Refills, Maintenance, 02/24/21 17:09:00 EDT, DIS Tablet, [facility]/pharmacy #[id number], Partial fill upon patient [...] 5 Refills, Maintenance, 03/13/21 13:24:00 EDT, ECCapsule, [facility]/pharmacy #[id number], Partial fill upon patient [...] 03/15/21 22:43:00 EDT, Route to Pharmacy Electronically, [facility]/pharmacy #[id number], Partial fill upon patient [...] need: 99 months Number to fax to: [phone], 01/06/21 13:10:00 E... Start Date: 01/06/21 Status: Ordered Tylenol 325 mg oral tablet [...] Refills, Maintenance, 11/22/20 8:13:00 EDT, [facility], 187.6, cm, 10/19/20 9:25:00 EDT, Height, 101.4, [...]
--- OUTSIDE RECORDS SUMMARY | 2023-02-03 22:24 | XMS_ITS | Continuity of Care Document ---
Author Name Unknown Organization [facility] Address [address] [facility] [address] [place] [address]- Care Team Providers Care Dinkey Engine Operator Name Role Phone Derek Tomas MD Primary Care Physician Encounter [facility] [place] Date(s): 08/27/22 - 09/26/22 [facility] [address] [place] [address]- Allergies, Adverse Reactions, Alerts No Known Allergies [...] Mouth, Daily, # 30 tablet, 11 Refills, [facility] STORE 18509, 193, cm, 10/26/21 9:21:00 EDT,Height, 97.2, kg, [...] 08/17/22 15:25:00 EDT, [facility] STORE 39666, 193.04, cm, 07/23/22 14:07:00 EDT, Height, 99.6, [...] Maintenance, 08/13/22 15:55:00 EDT, Route toPharmacy Electronically, [facility] STORE 52955, 193.04, cm, 07/23/22 14:07:00 EDT, Height, 99.6, [...] 02/22/22 9:42:00 EDT, Route to Pharmacy Electronically, [facility] STORE 53776, 193, cm, 02/07/22 10:31:00 EDT, Height, 97.2, [...] Refills, Maintenance, 09/07/22 10:23:00 EDT, ER Tablet, [facility]/pharmacy #[id number], Partial fill upon [...] need: 99 months Number to fax to: [phone], 01/06/21 13:10:00 E... Start Date: 01/06/21 Status: [...] each, 1 Refills, Maintenance, 07/13/22 10:00:00 EST, [facility]/pharmacy #[id number], Partial fill upon patient [...] Route to Pharmacy Electronically, [facility]/pharmacy #[id number], Partial fill upon patient request if the [...] apex Confirmed Active N CP Care Management, Cord Splicer Carmen Elizabeth [phone] Confirmed Active Therapeutic drug monitoring Confirmed Active Peripheral neuropathy Confirmed Active Spasticity Confirmed Active Tobacco dependence Confirmed Active Social History Social History Type Response Smoking Status 5-9 cigarettes (betw een 1/4 to 1/2 pack)/day in last 30 days entered on: 05/16/22 Sex Patient Care team information Care Team Personnel Name: Areli Pittman RN Position: [facility] ED RN W/OE and Tasks Member Role: Primary Care Nurse Name: Bettye Carney Position: S RN Member Role: Primary Care Nurse Name: Derek Tomas MD Position: [facility] Resident Member Role: PCP Address: Address: [address] [place] [address] Name: Ally Boyd RN Position: S RN Member Role: Primary Care Nurse Name: Axel Savage RN Position: S RN Member Role: Primary Care Nurse Name: Filemon King RN Position: S RN Member Role: Primary Care Nurse Name: Glenys Fox RN Position: S RN Member Role: Primary Care Nurse Care Team Related Persons Name: BEVERLY REYNAGA Address: home [address] [place] [id number] Name: AISLINN DE LA PAZ Address: [place] [address]
--- OUTSIDE RECORDS SUMMARY | 2023-02-03 22:24 | XMS_ITS | Continuity of Care Document ---
Author Name Unknown Organization [facility] Address Unknown Care Team Providers Care Lav Crewman Name Role Phone Judie Mills DO Primary Care Physician Encounter [facility] [place] Date(s): 08/30/21 - 09/29/21 [facility] Attending Physician: Sangeetha Latif Admitting Physician: Sangeetha Latif Referring Physician: Sangeetha Latif Allergies, Adverse Reactions, Alerts No Known Allergies Immunizations Given and Recorded Vaccine Date Status Refusal Reason tetanus/diphtheria/pertussis, acel(Tdap) 09/13/19 Recorded Medications amLODIPine 5 mg oral tablet 5 mg, 1, tablet, By Mouth, Daily, # 30 tablet, Refills 11, Tot. Refills 11, Maintenance, 10/31/20 12:56:00 EDT, Route to Pharmacy Electronically, [facility]/pharmacy #[id number], Partial fill upon patient requestif the prescription is for a schedule II opioid laura... Start Date: 10/31/20 Status: Ordered apixaban 5 mg oral tablet 1 tablet = 5 mg, By Mouth, 2 times a day, # 60 tablet, 11 Refills, Maintenance, 10/31/20 12:55:00 EDT, Tablet, [facility]/pharmacy #[id number], Partial fill upon patient request if the prescription is for a schedule II opioid drug., 187.6, cm, 10/19/20 9:25:00 EDT... Start Date: 10/31/20 Status: Ordered baclofen 20 mg oral tablet 20 mg, 1, tablet, By Mouth, 3 times a day, # 90 tablet, Refills 5, Tot. Refills 5, Maintenance, 08/16/21 10:36:00 EDT, Route to Pharmacy Electronically, [facility]/pharmacy #[id number], 193, cm, 07/27/21 8:35:00 EDT, Height, 104.5, kg, 02/15/21 19:45:00 EDT, Dry W... Start Date: 08/16/21 Status: Ordered Botox 100 units injection See Instructions, 400 units for MD to inject. Dx: Spasticity, # 2 kit, 3 Refills, Maintenance, 07/28/21 9:34:00 EDT Start Date: 07/28/21 Status: Ordered clindamycin 1% topical gel 1 application, Topically, 2 times a day, # 60 Gm, 0 Refills, Maintenance, 04/06/20 16:11:00 EST, Gel, [facility]/pharmacy #[id number], Partial fill upon patient [...] 8:13:00 EDT, Route to Pharmacy Electronically, [facility] STORE 29321, 187.6, cm, 10/19/20 9:25:00 EDT, Height, 101.4, [...] 14:16:00 EST, [id number] Note bedtime dose change, 193, cm, 03/15/21 16:10:00 EDT, Height, 104.5,... Start Date: 04/03/21 Stop Date: 08/01/21 Status: Ordered metoclopramide 10 mg oral tablet, disintegrating 1 tablet = 10 mg, By Mouth, Every 8 hours, PRN Nausea & Vomiting, # 28 tablet, 0 Refills, Maintenance, 02/24/21 17:09:00 EDT, DIS Tablet, [facility]/pharmacy #[id number], Partial fill upon patient [...] Refills, Maintenance, 03/13/21 13:24:00 EDT, ECCapsule, [facility]/pharmacy #[id number], Partial fill upon patient [...] [facility] to [facility]ically[id number], Partial fill upon patient request if the prescription is for a schedule II opioid dr... Start Date: 03/15/21 Status: Ordered Right ankle & foot orthosis Right ankle & foot orthosis, See Instructions, # 1 each, Refills 1, Tot. Refills 1, Maintenance, Please dispense 1 right ankle and foot othosis Dx: R29.898, R26.81, M25.373 Length of need: 99 months Number to fax to: [phone], 01/06/21 13:10:00 E... Start Date: 01/06/21 Status: Ordered scopolamine 1 mg/72 hr transdermal film, extended release 1 film, Topically, Every 72 hours, Apply to right mastoid bone, # 10 each, 1 Refills, Acute 07/13/22 10:00:00 EST, 07/12/21 16:55:00 EST, [facility]/pharmacy #[id number], Partial fill upon patient request if the prescription is for a schedule II opioid drug., 1 fi... Start Date: 07/12/21 Stop Date: 07/13/22 Status: Ordered scopolamine 1 mg/72 hr transdermal film, extended release 1 film, Topically, Every 72 hours, Apply to right mastoid bone, # 24 each, 1 Refills, Maintenance, 07/13/22 10:00:00 EST, [facility]/pharmacy #[id number], Partial fill upon patient [...] Refills, Maintenance, 11/22/20 8:13:00 EDT, [facility], 187.6, cm, 10/19/20 9:25:00 EDT, Height, 101.4, [...]
--- OUTSIDE RECORDS SUMMARY | 2023-02-03 22:24 | XMS_ITS | Continuity of Care Document ---
Author Name Unknown Organization [facility] Address [address] [place] [address]- Care Team Providers Care Ribber Name Role Phone Judie Mills DO Primary Care Physician [place] [facility] [place]04[place] - 12/04/[address] [address] Allergies, Adverse Reactions, Alerts Substance Reaction Severity Status NKA Active Medications amLODIPine 5 mg oral tablet 5 mg, 1, tablet, By Mouth, Daily, # 30 tablet, Refills 11, Tot. Refills 11, Maintenance, 10/31/20 12:56:00 EDT, Route to Pharmacy Electronically, [facility]/pharmacy #[id number], Partial fill upon patient [...] 11/22/20 8:13:00 EDT, Route to Pharmacy Electronically, [facility] STORE 47162, 187.6, cm, 10/19/20 9:25:00 EDT, Height, 101.4, kg, 08/27/20 1:59:00 EDT, Dry Weight Start Date: 11/22/20 Status: Ordered gabapentin 100 mg oral capsule 100 mg, 1, capsule, By Mouth, 3 times a day, # 90 capsule, Refills 11, Tot. Refills 11, Maintenance, 11/02/20 17:57:00 EDT, Route to Pharmacy Electronically, [facility]/pharmacy #[id number], Partial fill upon patient request if the [...] 11/25/20 15:58:00 EDT, Route to Pharmacy Electronically, [facility]/pharmacy #[id number], Partial fill upon patient request if the [...] Refills, Maintenance, 11/22/20 8:13:00 EDT, [facility], 187.6, cm, 10/19/20 9:25:00 EDT, Height, 101.4, [...]
--- OUTSIDE RECORDS SUMMARY | 2023-02-03 22:24 | XMS_ITS | Continuity of Care Document ---
Author Name Unknown Organization [facility] Address [address] [place] [address]- Care Team Providers Care Court Commissioner Name Role Phone Judie Keenan DO Primary Care Physician Encounter [facility] Date(s): 12/11/21 - 01/10/[address] [address] Allergies, Adverse Reactions, Alerts No Known Allergies Immunizations Given and Recorded Vaccine Date Status Refusal Reason tetanus/diphtheria/pertussis, acel(Tdap) 09/13/19 Recorded Medications amLODIPine 5 mg oral tablet 1 tablet, By Mouth, Daily, # 30 tablet, 11 Refills, [facility] STORE 35162, 193, cm, 10/26/21 9:21:00 EDT,Height, 97.2, kg, 10/26/21 9:21:00 EDT, Dry Weight Start Date: 11/15/21 Status: Ordered baclofen 20 mg oral tablet 20 mg, 1, tablet, By Mouth, 4 times a day, # 120 tablet, Refills 5, Tot. Refills 5, Maintenance, 10/26/21 9:45:00 EDT, Route to Pharmacy Electronically, [facility]/pharmacy #[id number], 193, cm, 10/26/21 9:21:00 EDT, [...] day, # 60 Gm, 0 Refills, Maintenance, 11/25/20 16:11:00 EST, Gel, [facility]/pharmacy #[id number], Partial fill upon patient request, [...] a day, # 60 tablet, 11 Refills, [facility] STORE 87265, 193, cm, 10/26/21 9:21:00 EDT, Height, 97.2, kg, 10/26/21 9:21:00 EDT, Dry Weight Start Date: 11/30/21 Status: Ordered folic acid 1 mg oral tablet 1, tablet, By Mouth, Daily, # 30 tablet, Refills 11, Tot. Refills 0, Maintenance, 11/22/20 8:13:00 EDT, Route to Pharmacy Electronically, [facility] STORE 66730, 187.6, cm, 10/19/20 9:25:00 EDT, Height, 101.4, [...] 04/03/21 14:16:00 EST, [id number] Note bedtime dose change, 193, cm, 03/15/21 16:10:00 EDT, Height, 104.5,... Start Date: 04/03/21 Stop Date: 08/01/21 Status: Ordered metoclopramide 10 mg oral tablet, disintegrating 1 tablet = 10 mg, By Mouth, Every 8 hours, PRN Nausea & Vomiting, # 28 tablet, 0 Refills, Maintenance, 02/24/21 17:09:00 EDT, DIS Tablet, [facility]/pharmacy #[id number], Partial fill upon patient [...] 5 Refills, Maintenance, 03/13/21 13:24:00 EDT, ECCapsule, [facility]/pharmacy #[id number], Partial fill upon patient [...] 03/15/21 22:43:00 EDT, Route to Pharmacy Electronically, [facility]/pharmacy #[id number], Partial fill upon patient [...] need: 99 months Number to fax to: [phone], 01/06/21 13:10:00 E... Start Date: 01/06/21 Status: Ordered scopolamine 1 mg/72 hr transdermal film, extended release 1 film, Topically, Every 72 hours, Apply to right mastoid bone, # 10 each, 1 Refills, Acute 07/13/22 10:00:00 EST, 07/12/21 16:55:00 EST, [facility]/pharmacy #[id number], Partial fill upon patient request if the prescription is for a schedule II opioid drug., 1 fi... Start Date: 07/12/21 Stop Date: 07/13/22 Status: Ordered scopolamine 1 mg/72 hr transdermal film, extended release 1 film, Topically, Every 72 hours, Apply to right mastoid bone, # 24 each, 1 Refills, Maintenance, 07/13/22 10:00:00 EST, [facility]/pharmacy #[id number], Partial fill upon patient request if the prescription is for a schedule II opioid drug., 1 film Topically Lucía... Start Date: 07/13/22 Status: Ordered tiZANidine 2 mg oral tablet See Instructions, 1 tablet by mouth twice a day, # 60 tablet, Refills 3, Tot. Refills 3, Maintenance, 12/13/21 16:11:00 EDT, Instructions Replace Required Details, Route to Pharmacy Electronically, [facility]/pharmacy #[id number], Partial fill upon patient request... [...] Refills, Maintenance, 11/22/20 8:13:00 EDT, [facility], 187.6, cm, 10/19/20 9:25:00 EDT, Height, 101.4, [...] Team Personnel Name: Judie Keenan DO Address: [address] [place] [address]
--- OUTSIDE RECORDS SUMMARY | 2023-02-03 22:25 | XMS_ITS | Continuity of Care Document ---
Author Name Unknown Organization [facility] ter Address [address] [place] [address]- Care Team Providers Care Physiotherapy Assistant Name Role Phone Genoveva PAGAN, Derek Primary Care Physician [place] [facility] [place] - 04/27/[address] [address] Allergies, Adverse Reactions, Alerts No Known Allergies Immunizations Given and Recorded Vaccine Date Status Refusal Reason tetanus/diphtheria/pertussis, acel(Tdap) 09/13/19 Recorded Medications acetaminophen 325 mg oral capsule 2 capsule = 650 mg, By Mouth, Every 6 hours, PRN Pain , Moderate, # 90 capsule, 0 Refills, Maintenance, 01/21/22 20:50:00 EDT, Capsule, [facility]/pharmacy #[id number], Partial fill upon patient request if the prescription is for a schedule II opioid drug., 193, c... Start Date: 01/21/22 Status: Ordered amLODIPine 5 mg oral tablet 1 tablet, By Mouth, Daily, # 30 tablet, 11 Refills, [facility], 193, cm, 10/26/21 9:21:00 EDT,Height, 97.2, kg, 10/26/21 9:21:00 EDT, Dry Weight Start Date: 11/15/21 Status: Ordered baclofen 20 mg oral tablet 20 mg, 1, tablet, By Mouth, 4 times a day, # 120 tablet, Refills 5, Tot. Refills 5, Maintenance, 10/26/21 9:45:00 EDT, Route to Pharmacy Electronically, [facility]/pharmacy #207, 193, cm, 10/26/21 [...] 0 Refills, Maintenance, 04/06/20 16:11:00 EST, Gel, [facility]/pharmacy #[id number], Partial fill upon [...] 60 tablet, 11 Refills, 02/07/22 11:13:00 EDT, [facility]/pharmacy #207, 193, cm, 02/07/22 10:31:00 EDT, Height, 97.2, kg, 10/26/21 9:21:00 EDT, Dry Weight Start Date: 02/07/22 Status: Ordered folic acid 1 mg oral tablet 1, tablet, By Mouth, Daily, # 30 tablet, Refills 11, Tot. Refills 0, Maintenance, 11/22/20 8:13:00 EDT, Route to Pharmacy Electronically, [facility] STORE 50442, 187.6, cm, 10/19/20 9:25:00 EDT, Height, 101.4, kg, 08/27/20 1:59:00 EDT, Dry Weight Start Date: 11/22/20 Status: Ordered gabapentin 300 mg oral capsule 1, capsule, By Mouth, 3 times a day, # 90 capsule, Refills 5, Maintenance, 02/22/22 9:42:00 EDT, Route to Pharmacy Electronically, [facility] STORE 80191, 193, cm, 02/07/22 10:31:00 EDT, Height, 97.2, kg, 10/26/21 9:21:00 EDT, Dry Weight Start Date: 02/22/22 Status: Ordered ibuprofen 600 mg oral tablet 600 mg, 1, tablet, By Mouth, Every 8 hours, PRN, # 100 tablet, Refills 0, Tot. Refills 0, Maintenance, Pain , Moderate, 01/21/22 20:49:00 EDT, Route to Pharmacy Electronically, [facility]/pharmacy #[id number], Partial fill upon [...] Refills, Maintenance, 02/24/21 17:09:00 EDT, DIS Tablet, [facility]/pharmacy #[id number], Partial fill upon [...] Refills, Maintenance, 02/22/22 9:43:00 EDT, [facility], 193, cm, 02/07/22 10:31:00 EDT, Height, 97.2, kg, 10/26/21 9:21:00 EDT, Dry Weight Start Date: 02/22/22 Status: Ordered oxyCODONE 5 mg oral capsule 1 capsule = 5 mg, By Mouth, Every 6 hours, PRN as needed for pain, # 12 capsule, 0 Refills, Maintenance, 01/21/22 20:50:00 EDT, Capsule, [facility]/pharmacy #[id number], Partial fill upon [...] 03/15/21 22:43:00 EDT, Route to Pharmacy Electronically, [facility]/pharmacy #[id number], Partial fill upon [...] need: 99 months Number to fax to: [phone], 01/06/21 13:10:00 E... Start Date: 01/06/21 Status: Ordered scopolamine 1 mg/72 hr transdermal film, extended release 1 film, Topically, Every 72 hours, Apply to right mastoid bone, # 10 each, 1 Refills, Acute 07/13/22 10:00:00 EST, 07/12/21 16:55:00 EST, [facility]/pharmacy #[id number], Partial fill upon patient request if the prescription is for a schedule II opioid drug., 1 fi... Start Date: 07/12/21 Stop Date: 07/13/22 Status: Ordered scopolamine 1 mg/72 hr transdermal film, extended release 1 film, Topically, Every 72 hours, Apply to right mastoid bone, # 24 each, 1 Refills, Maintenance, 07/13/22 10:00:00 EST, [facility]/pharmacy #[id number], Partial fill upon patient request if the prescription is for a schedule II opioid drug., 1 film Topically Lucía... Start Date: 07/13/22 Status: Ordered tiZANidine 2 mg oral tablet See Instructions, 1 tablet by mouth twice a day, # 60 tablet, Refills 3, Tot. Refills 3, Maintenance, 12/13/21 16:11:00 EDT, Instructions Replace Required Details, Route to Pharmacy Electronically, [facility]/pharmacy #[id number], Partial fill upon [...] tablet, 11 Refills, Maintenance, 11/22/20 8:13:00 EDT, [facility] STORE 07143, 187.6, cm, 10/19/20 9:25:00 EDT, Height, 101.4, [...] buttock Confirmed Active Insomnia Confirmed Active [facility] Care Management, Clinical Trials Systems Administrator Carmen Elizabeth [phone] Confirmed Active Therapeutic drug monitoring Confirmed Active Spasticity Confirmed Active Tobacco dependence Confirmed Active Social History Social History Type Response Smoking Status 10 or more cigarette s (1/2 pack or more)/day in last 30 days entered on: 02/29/20 Sex Patient Care team information Care Team Personnel Name: Bettye Carney Position: [facility] RN Member Role: Primary Care Nurse Name: Derek Tomas MD Position: [facility] Resident Member Role: PCP Address: Address: [address] [place] [address] Name: Ally Boyd RN Position: [facility] RN Member Role: Primary Care Nurse Name: Areli Whitaker RN Position: [facility] ED RN W/OE and Tasks Member Role: Primary Care Nurse Name: Axel Savage RN Position: [facility] RN Member Role: Primary Care Nurse Name: Filemon King RN Position: [facility] RN Member Role: Primary Care Nurse Care Team Related Persons Name: BEVERLY REYNAGA Address: [address] [address] Name: AISLINN DE LA PAZ Address: [address] [address]
--- OUTSIDE RECORDS SUMMARY | 2023-02-03 22:25 | XMS_ITS | Continuity of Care Document ---
Author Name Unknown Organization [facility] Address [address] [place] [address]- Care Team Providers Care Electrical Development Engineer Name Role Phone Derek Tomas MD Primary Care Physician Encounter [facility] [place] Date(s): 04/23/22 - 05/23/[address] [address]- Allergies, Adverse Reactions, Alerts No Known Allergies Immunizations Given and Recorded Vaccine Date Status Refusal Reason influenza virus vaccine, inactivated 05/18/22 Give n tetanus/diphtheria/pertussis, acel(Tdap) 09/13/19 Recorded Medications acetaminophen 325 mg oral capsule 2 capsule = 650 mg, By Mouth, Every 6 hours, PRN Pain , Moderate, # 90 capsule, 0 Refills, Maintenance, 01/21/22 20:50:00 EDT, Capsule, [facility]/pharmacy #[id number], Partial fill upon patient request if the prescription is for a schedule II opioid drug., 193, c... Start Date: 01/21/22 Status: Ordered acitretin 10 mg oral capsule TAKE 1 CAPSULE EVERY OTHER DAY FOR NEXT 2 WEEKS THEN 1 CAPSULE DAILY Start Date: 05/17/22 Status: Ordered amLODIPine 5 mg oral tablet 1 tablet, By Mouth, Daily, # 30 tablet, 11 Refills, [facility], 193, cm, 10/26/21 9:21:00 EDT,Height, 97.2, kg, 10/26/21 9:21:00 EDT, Dry Weight Start Date: 11/15/21 Status: Ordered Augmentin 875 mg-125 mg oral tablet 1 tablet, By Mouth, Every 12 hours, for 7 days, # 14 tablet, 0 Refills, Acute 05/27/22 19:51:00 EST, 05/20/22 19:51:00 EST, Tablet, [facility]/pharmacy #[id number], Partial fill upon patient request if the prescription is for a schedule II opioid drug., 193, cm, 0... Start Date: 05/20/22 Stop Date: 05/27/22 Status: Ordered baclofen 20 mg oral tablet 20 mg, 1, tablet, By Mouth, 4 times a day, # 120 tablet, Refills 5, Tot. Refills 5, Maintenance, 10/26/21 9:45:00 EDT, Route to Pharmacy Electronically, [facility]/pharmacy #[id number], 193, cm, 10/26/21 9:21:00 EDT, Height, 97.2, kg, 10/26/21 9:21:00 EDT, Dry Weight Start Date: 10/26/21 Status: Ordered Botox 100 units injection See Instructions, 400 units for MD to inject. Dx: Spasticity, # 2 kit, 3 Refills, Maintenance, 12/13/21 16:10:00 EDT Start Date: 12/13/21 Status: Ordered Cosentyx 150 mg/mL subcutaneous solution = 300 mg, Subcutaneous Injection, Every week, 0 Refills, Maintenance, 11/03/20 22:01:00 EDT, Solution, Partial fill upon patient request if the prescription is for a schedule II opioid drug. Start Date: 11/03/20 Status: Ordered Eliquis 5 mg oral tablet 1 tablet, By Mouth, 2 times a day, # 60 tablet, 11 Refills, 02/07/22 11:13:00 EDT, [facility]/pharmacy #[id number], 193, cm, 02/07/22 10:31:00 EDT, [...] 02/22/22 9:42:00 EDT, Route to Pharmacy Electronically, [facility], 193, cm, 02/07/22 10:31:00 EDT, Height, 97.2, kg, 10/26/21 9:21:00 EDT, Dry Weight Start Date: 02/22/22 Status: Ordered omeprazole 40 mg oral enteric coated capsule 1 capsule, By Mouth, Daily, # 30 capsule, 5 Refills, Maintenance, 02/22/22 9:43:00 EDT, [facility], 193, cm, 02/07/22 10:31:00 EDT, Height, 97.2, kg, 10/26/21 9:21:00 EDT, Dry Weight Start Date: 02/22/22 Status: Ordered PROzac 20 mg oral capsule 20 mg, 1, capsule, By Mouth, Daily, # 90 capsule, Refills 4, Tot. Refills 4, Maintenance, 03/15/21 22:43:00 EDT, Route to Pharmacy Electronically, [facility]/pharmacy #[id number], Partial fill upon patient request [...] need: 99 months Number to fax to: [phone], 01/06/21 13:10:00 E... Start Date: 01/06/21 Status: Ordered scopolamine 1 mg/72 hr transdermal film, extended release 1 film, Topically, Every 72 hours, Apply to right mastoid bone, # 24 each, 1 Refills, Maintenance, 07/13/22 10:00:00 EST, [facility]/pharmacy #[id number], Partial fill upon patient request if the prescription is for a schedule II opioid drug., 1 film Topically Lucía... Start Date: 07/13/22 Status: Ordered sulfamethoxazole-trimethoprim 800 mg-160 mg oral tablet 1 tablet, By Mouth, 2 times a day, for 6 days, # 12 tablet, 0 Refills, Acute 05/24/22 7:19:00 EST, 05/18/22 7:19:00 EST, Tablet, [facility], Partial fill upon patient request if the prescription is for a schedule II opioid drug., 1 table... Start Date: 05/18/22 Stop Date: 05/24/22 Status: Ordered tiZANidine 2 mg oral tablet See Instructions, 1 tablet by mouth twice a day, # 60 tablet, Refills 3, Tot. Refills 3, Maintenance, 12/13/21 16:11:00 EDT, Instructions Replace Required Details, Route to Pharmacy Electronically, [facility]/pharmacy #[id number], Partial fill upon patient request... Start Date: 12/13/21 Status: Ordered Tylenol 325 mg oral tablet 650 mg, 2, tablet, By Mouth, Every 4 hours, PRN, # 120 tablet, Refills 0, Tot. Refills 0, Acute 05/21/23 19:50:00 EST, for pain, 05/20/22 19:50:00 EST, Route to Pharmacy Electronically, [facility]/pharmacy #[id number], Partial fill upon patient request if the [...] Insomnia Confirmed Active N CP Care Management, Pit Operator Carmen Elizabeth [phone] Confirmed Active Therapeutic drug monitoring Confirmed Active [...] S Resident Member Role: PCP Address: Address: [address] [place] [address] Name: Ally Boyd RN Position: [facility] RN Member Role: Primary Care Nurse Name: Areli Whitaker RN Position: [facility] ED RN W/OE and Tasks Member Role: Primary Care Nurse Name: Axel Savage RN Position: [facility] RN Member Role: Primary Care Nurse Name: Filemon King RN Position: [facility] RN Member Role: Primary Care Nurse Name: Glenys Fox RN Position: [facility] RN Member Role: Primary Care Nurse Care Team Related Persons Name: BEVERLY REYNAGA Address: home [address] [place] [id number] Name: AISLINN DE LA PAZ Address: home [address] [place] [address]
--- OUTSIDE RECORDS SUMMARY | 2023-02-03 22:25 | XMS_ITS | Continuity of Care Document ---
Author Name Unknown Organization [facility] Address Unknown Care Team Providers Care Examiner Rating Clerk Name Role Phone Judie Mills DO Primary Care Physician [phone] Encounter [facility] [place] Date(s): 08/21/21 - 08/28/21 [facility] Attending Physician: Terry Ryan MD Allergies, Adverse Reactions, Alerts No Known Allergies Immunizations Given and Recorded Vaccine Date Status Refusal Reason tetanus/diphtheria/pertussis, acel(Tdap) 09/13/19 Recorded Medications amLODIPine 5 mg oral tablet 5 mg, 1, tablet, By Mouth, Daily, # 30 tablet, Refills 11, Tot. Refills 11, Maintenance, 10/31/20 12:56:00 EDT, Route to Pharmacy Electronically, [facility]/pharmacy #[id number], Partial fill upon patient requestif the prescription is for a schedule II opioid laura... Start Date: 10/31/20 Status: Ordered apixaban 5 mg oral tablet 1 tablet = 5 mg, By Mouth, 2 times a day, # 60 tablet, 11 Refills, Maintenance, 10/31/20 12:55:00 EDT, Tablet, [facility]/pharmacy #[id number], [...] 10:36:00 EDT, Route to Pharmacy Electronically, [facility]/pharmacy #[id number], 193, cm, 07/27/21 8:35:00 EDT, Height, [...] Refills, Maintenance, 04/06/20 16:11:00 EST, Gel, [facility]/pharmacy #[id number], [...] 8:13:00 EDT, Route to Pharmacy Electronically, [facility] STORE 78040, 187.6, cm, 10/19/20 9:25:00 EDT, Height, 101.4, [...] 04/03/21 14:16:00 EST, Route to Pharmacy Electronically, [facility]/pharmacy #[id number], Note bedtime dose change, 193, cm, 03/15/21 16:10:00 EDT, Height, 104.5,... Start Date: 04/03/21 Stop Date: 08/01/21 Status: Ordered metoclopramide 10 mg oral tablet, disintegrating 1 tablet = 10 mg, By Mouth, Every 8 hours, PRN Nausea & Vomiting, # 28 tablet, 0 Refills, Maintenance, 02/24/21 17:09:00 EDT, DIS Tablet, [facility]/pharmacy #[id number], [...] Refills, Maintenance, 03/13/21 13:24:00 EDT, ECCapsule, [facility]/pharmacy #[id number], [...] 22:43:00 EDT, [facility] [...] need: 99 months Number to fax to: [phone], 01/06/21 13:10:00 E... Start Date: 01/06/21 Status: Ordered scopolamine 1 mg/72 hr transdermal film, extended release 1 film, Topically, Every 72 hours, Apply to right mastoid bone, # 10 each, 1 Refills, Acute 07/13/22 10:00:00 EST, 07/12/21 16:55:00 EST, [facility]/pharmacy [...] Refills, Maintenance, 11/22/20 8:13:00 EDT, [facility], 187.6, cm, 10/19/20 9:25:00 EDT, Height, 101.4, [...]
--- OUTSIDE RECORDS SUMMARY | 2023-02-03 22:25 | XMS_ITS | Continuity of Care Document ---
Author Name Unknown Organization [facility] Address [address] [place] [address]- Care Team Providers Care Quality Compliance Consultant Name Role Phone Judie Mills DO Primary Care Physician Encounter [facility] [place] Date(s): 04/11/20 - 05/11/20 [facility] [address] [place] [address]- Attending Physician: Sangeetha Latif Admitting Physician: trSangeetha Referring Physician: Admtr, [id number] Allergies, Adverse Reactions, [...]
--- OUTSIDE RECORDS SUMMARY | 2023-02-03 22:25 | XMS_ITS | Continuity of Care Document ---
Author Name Unknown Organization [facility] Address [address] [place] [address] [address] [place] [address]- Care Team Providers Care Parts Picker Name Role Phone Derek Tomas MD Primary Care Physician Encounter [facility] [place] Date(s): 05/22/22 - 06/21/22 [facility] [address] [place] [address]- Allergies, Adverse Reactions, Alerts No Known Allergies [...] Mouth, Daily, # 30 tablet, 11 Refills, [facility], 193, cm, 10/26/21 9:21:00 EDT,Height, 97.2, kg, 10/26/21 9:21:00 EDT, Dry Weight Start Date: 11/15/21 Status: Ordered baclofen 20 mg oral tablet 20 mg, 1, tablet, By Mouth, 4 times a day, # 120 tablet, Refills 5, Tot. Refills 5, Maintenance, 10/26/21 9:45:00 EDT, Route to Pharmacy Electronically, [facility]/pharmacy #[id number], 193, cm, 10/26/21 9:21:00 EDT, Height, 97.2, kg, 10/26/21 9:21:00 EDT, Dry Weight Start Date: 10/26/21 Status: Ordered Eliquis 5 mg oral tablet 1 tablet, By Mouth, 2 times a day, # 60 tablet, 11 Refills, 02/07/22 11:13:00 EDT, [facility]/pharmacy #[id number], 193, cm, 02/07/22 10:31:00 EDT, Height, [...] Replace Required Details, Route to Pharmacy Electronically, [facility] 9[facility], 193.04, cm, 06/07/22 13:41:00 EST, Height, 99.... Start Date: 06/11/22 Status: Ordered gabapentin 300 mg oral capsule 1, capsule, By Mouth, 3 times a day, # 90 capsule, Refills 5, Maintenance, 02/22/22 9:42:00 EDT, Route to Pharmacy Electronically, [facility], 193, cm, 02/07/22 10:31:00 EDT, Height, 97.2, kg, 10/26/21 9:21:00 EDT, Dry Weight Start Date: 02/22/22 Status: Ordered omeprazole 40 mg oral enteric coated capsule 1 capsule, By Mouth, Daily, # 30 capsule, 5 Refills, Maintenance, 02/22/22 9:43:00 EDT, [facility], 193, cm, 02/07/22 10:31:00 EDT, Height, 97.2, kg, 10/26/21 9:21:00 EDT, Dry Weight Start Date: 02/22/22 Status: Ordered Right ankle & foot orthosis Right ankle & foot orthosis, See Instructions, # 1 each, Refills 1, Tot. Refills 1, Maintenance, Please dispense 1 right ankle and foot othosis Dx: R29.898, R26.81, M25.373 Length of need: 99 months Number to fax to: [phone], 01/06/21 13:10:00 E... Start Date: 01/06/21 Status: Ordered scopolamine 1 mg/72 hr transdermal film, extended release 1 film, Topically, Every 72 hours, Apply to right mastoid bone, # 24 each, 1 Refills, Maintenance, 07/13/22 10:00:00 EST, [facility]/pharmacy #[id number], Partial fill upon patient request if the prescription is for a schedule II opioid drug., 1 film Topically Lucía... Start Date: 07/13/22 Status: Ordered tiZANidine 2 mg oral tablet See Instructions, TAKE 1 TABLET BY MOUTH TWICE A DAY, # 60 tablet, Refills 3, Maintenance, 06/11/2311:04:00 EST, Instructions Replace Required Details, Route to Pharmacy Electronically, [facility] 9[facility], 193.04, cm, 06/07/22 13:41:00 EST, Height, 99.6... Start Date: 06/11/22 Status: Ordered tiZANidine 2 mg oral tablet See Instructions, 1 tablet by mouth twice a day, # 60 tablet, Refills 3, Tot. Refills 3, Maintenance, 06/08/22 14:32:00 EST, Instructions Replace Required Details, Route to Pharmacy Electronically, [facility]/pharmacy #[id number], Partial fill upon patient request... Start [...] 05/20/22 19:50:00 EST, Route to Pharmacy Electronically, [facility]/pharmacy #[id number], Partial fill upon patient request if [...] apex Confirmed Active N CP Care Management, Care Asst Carmen Clara [phone] Confirmed Active Therapeutic drug monitoring Confirmed Active Peripheral neuropathy Confirmed Active Spasticity Confirmed Active Tobacco dependence Confirmed Active Social History Social History Type Response Smoking Status 5-9 cigarettes (betw een 1/4 to 1/2 pack)/day in last 30 days entered on: 05/16/22 Sex Patient Care team information Care Team Personnel Name: Areli Pittman RN Position: [facility] ED RN W/OE and Tasks Member Role: Primary Care Nurse Name: Bettye Carney Position: S RN Member Role: Primary Care Nurse Name: Derek Tomas MD Position: [facility] Resident Member Role: PCP Address: Address: [address] [place] [id number] Name: Ally Boyd RN Position: S RN Member Role: Primary Care Nurse Name: Axel Savage RN Position: S RN Member Role: Primary Care Nurse Name: Filemon King RN Position: S RN Member Role: Primary Care Nurse Name: Glenys Fox RN Position: S RN Member Role: Primary Care Nurse Care Team Related Persons Name: JUHI BEVERLY Address: home [address] [place] [id number] Name: AISLINN DE LA PAZ Address: [address] [address]
--- OUTSIDE RECORDS SUMMARY | 2023-02-03 22:25 | XMS_ITS | Continuity of Care Document ---
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 Start Date: 10/31/20 Status: Ordered gabapentin 100 mg oral capsule 100 mg, 1, capsule, By Mouth, 3 times a day, # 90 capsule, Refills 11, Tot. Refills 11, Maintenance, 11/02/20 17:57:00 EDT, Route to Pharmacy Electronically, [facility]/pharmacy #[id number], Partial fill upon patient request [...] 0 Refills, Maintenance, 10/31/20 12:56:00 EDT, Tablet, [facility]/pharmacy #[id number], Partial fill upon patient request [...]
--- OUTSIDE RECORDS SUMMARY | 2023-02-03 22:25 | XMS_ITS | Continuity of Care Document ---
Author Name Unknown Organization [facility] Address [address] [place] [address]- Care Team Providers Care Power Machine Operator Name Role Phone Judie Mills DO Primary Care Physician [phone] [place] [facility] [place] Date(s): 10/26/20 - 11/25/[address] [address] Allergies, Adverse Reactions, Alerts Substance Reaction Severity Status NKA Active Medications amLODIPine 5 mg oral tablet 5 mg, 1, tablet, By Mouth, Daily, # 30 tablet, Refills 11, Tot. Refills 11, Maintenance, 10/31/20 12:56:00 EDT, Route to Pharmacy Electronically, [facility]/pharmacy #[id number], Partial fill upon patient requestif the [...] 8:13:00 EDT, Route to Pharmacy Electronically, [facility] ST[facility] 73589, 187.6, cm, 10/19/20 9:25:00 EDT, Height, 101.4, kg, 08/27/20 1:59:00 EDT, Dry Weight Start Date: 11/22/20 Status: Ordered gabapentin 100 mg oral capsule 100 mg, 1, capsule, By Mouth, 3 times a day, # 90 capsule, Refills 11, Tot. Refills 11, Maintenance, 11/02/20 17:57:00 EDT, Route to Pharmacy Electronically, [facility]/pharmacy #[id number], Partial fill upon patient request if the [...] 15:58:00 EDT, Route to Pharmacy Electronically, [facility]/pharmacy #7569, Partial fill upon patient request if the [...] Refills, Maintenance, 11/22/20 8:13:00 EDT, [facility], 187.6, cm, 10/19/20 9:25:00 EDT, Height, 101.4, [...]
--- OUTSIDE RECORDS SUMMARY | 2023-02-03 22:25 | XMS_ITS | Continuity of Care Document ---
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 Refills 5, Maintenance, 10/26/21 9:45:00 EDT, Route to Pharmacy Electronically, [facility]/pharmacy #8331, 193, cm, 10/26/21 9:21:00 EDT, Height, 97.2, [...] hidradenitis L73.2 Please mike Finnegan and Aidan, 09/28/22 17:53:00 EDT, Supply Start Date: 09/28/22 Status: Ordered duloxetine 30 mg oral enteric coated capsule 1 capsule, By Mouth, Daily, # 30 capsule, 5 Refills, Maintenance, 08/17/22 15:25:00 EDT, [facility] ST[facility] 19389, 193.04, cm, 07/23/22 14:07:00 EDT, Height, 99.6, kg, 06/06/22 18:00:00 EST, Dry Weight Start Date: 08/17/22 Status: Ordered Eliquis 5 mg oral tablet 1 tablet, By Mouth, 2 times a day, # 60 tablet, 11 Refills, 02/07/22 11:13:00 EDT, [facility]/pharmacy #[id number], 193, cm, 02/07/22 10:31:00 EDT, Height, 97.2, kg, 10/26/21 9:21:00 EDT, Dry Weight Start Date: 02/07/22 Status: Ordered ferrous sulfate 325 mg oral tablet TAKE 1 TABLET BY MOUTH EVERY DAY NEEDED Start Date: 09/12/22 Status: Ordered FLUoxetine 20 mg oral capsule 1, capsule, By Mouth, Daily, # 30 capsule, Refills 14, Maintenance, 08/13/22 15:55:00 EDT, Route toPharmacy Electronically, [facility] 47[facility], 193.04, cm, 07/23/22 14:07:00 EDT, Height, 99.6, [...] 02/22/22 9:42:00 EDT, Route to Pharmacy Electronically, [facility]78[facility], 193, cm, 02/07/22 10:31:00 EDT, Height, 97.2, [...] capsule, 5 Refills, Maintenance, 08/13/22 15:28:00 EDT, [facility]/pharmacy #2071, 193.04, cm, 07/23/22 14:07:00 EDT, Height, 99.6, kg, 06/06/22 18:00:00 EST, Dry Weight Start Date: 08/13/22 Status: Ordered oxycodone 15 mg oral tablet, extended release 1 tablet = 15 mg, By Mouth, Every 12 hours, # 60 tablet, 0 Refills, Maintenance, 09/07/22 10:23:00 EDT, ER Tablet, [facility]/pharmacy #1130, Partial fill upon patient [...] need: 99 months Number to fax to: [phone], 01/06/21 13:10:00 E... Start Date: 01/06/21 Status: Ordered scopolamine 1 mg/72 hr transdermal film, extended release See Instructions, APPLY 1 PATCH TO RIGHT MASTOID BONE EVERY 72 HOURS, # 10 each, 3 Refills, Maintenance, 06/29/22 11:46:00 EST, [facility]/pharmacy #[id number], APPLY 1 PATCH TO RIGHT MASTOID BONE EVERY 72 HOURS,193.04, cm, 06/29/22 11:17:00 EST, Height, 99.6, kg... Start Date: 06/29/22 Status: Ordered scopolamine 1 mg/72 hr transdermal film, extended release 1 film, Topically, Every 72 hours, Apply to right mastoid bone, # 24 each, 1 Refills, Maintenance, 07/13/22 10:00:00 EST, [facility]/pharmacy #[id number], Partial fill upon patient [...] 05/20/22 19:50:00 EST, Route to Pharmacy Electronically, [facility]/pharmacy #[id number], Partial fill upon patient request if the [...] apex Confirmed Active N CP Care Management, Lumber Tripper Carmen Elizabeth [phone] Confirmed Active Therapeutic drug monitoring Confirmed Active Peripheral neuropathy Confirmed Active Spasticity Confirmed Active Tobacco dependence Confirmed Active Social History Social History Type Response Smoking Status 5-9 cigarettes (betw een 1/4 to 1/2 pack)/day in last 30 days entered on: 05/16/22 Sex Patient Care team information Care Team Personnel Name: Areli Pittman RN Position: [facility] ED RN W/OE and Tasks Member Role: Primary Care Nurse Name: Derek Tomas MD Position: [facility] Resident Member Role: PCP Address: Address: [address] [place] [address] Name: Ally Boyd RN Position: S RN Member Role: Primary Care Nurse Name: Axel Savage RN Position: S RN Member Role: Primary Care Nurse Name: Filemon King RN Position: S RN Member Role: Primary Care Nurse Name: Glenys Fox RN Position: S RN Member Role: Primary Care Nurse Care Team Related Persons Name: BEVERLY REYNAGA Address: home [address] [place] [address] Name: AISLINN DE LA PAZ Address: home [address] [place] [address]
--- OUTSIDE RECORDS SUMMARY | 2023-02-03 22:25 | XMS_ITS | Continuity of Care Document ---
Author Name Unknown Organization [facility] As formerly [facility] Address [address] [place] [address] [address] [place] [address]- Care Team Providers Care Neon Sign Erector Name Role Phone Genoveva PAGAN, Derek Primary Care Physician [place] [facility] [place] - 09/01/[address] [place] [address]- Allergies, Adverse Reactions, Alerts No Known Allergies [...] Mouth, Daily, # 30 tablet, 11 Refills, [facility], 193, cm, 10/26/21 9:21:00 EDT,Height, 97.2, kg, 10/26/21 9:21:00 EDT, Dry Weight Start Date: 11/15/21 Status: Ordered baclofen 20 mg oral tablet 20 mg, 1, tablet, By Mouth, 4 times a day, # 120 tablet, Refills 5, Tot. Refills 5, Maintenance, 10/26/21 9:45:00 EDT, Route to Pharmacy Electronically, [facility]/pharmacy #[id number], 193, cm, 10/26/21 9:21:00 EDT, [...] Refills, Maintenance, 08/17/22 15:25:00 EDT, [facility], 193.04, cm, 07/23/22 14:07:00 EDT, Height, 99.6, kg, 06/06/22 18:00:00 EST, Dry Weight Start Date: 08/17/22 Status: Ordered Eliquis 5 mg oral tablet 1 tablet, By Mouth, 2 times a day, # 60 tablet, 11 Refills, 02/07/22 11:13:00 EDT, [facility]/pharmacy #[id number], 193, cm, 02/07/22 10:31:00 EDT, Height, 97.2, kg, 10/26/21 9:21:00 EDT, Dry Weight Start Date: 02/07/22 Status: Ordered FLUoxetine 20 mg oral capsule 1, capsule, By Mouth, Daily, # 30 capsule, Refills 14, Maintenance, 08/13/22 15:55:00 EDT, Route toPharmacy Electronically, [facility], 193.04, cm, 07/23/22 14:07:00 EDT, Height, 99.6, kg, 06/06/22 18:00:00 EST, Dry Weight Start Date: 08/13/22 Status: Ordered gabapentin 300 mg oral capsule 1, capsule, By Mouth, 3 times a day, # 90 capsule, Refills 5, Maintenance, 02/22/22 9:42:00 EDT, Route to Pharmacy Electronically, [facility], 193, cm, 02/07/22 10:31:00 EDT, Height, 97.2, [...] capsule, 5 Refills, Maintenance, 08/13/22 15:28:00 EDT, [facility]/pharmacy #[id number], 193.04, cm, 07/23/22 14:07:00 EDT, Height, 99.6, kg, 06/06/22 18:00:00 EST, Dry Weight Start Date: 08/13/22 Status: Ordered oxyCODONE 5 mg oral tablet 5 mg, 1, tablet, By Mouth, Every 6 hours, for 7 days, L73. 2; G8110, # 28 tablet, Refills 0, Tot. Refills 0, Acute 09/06/22 15:48:00 EDT, 08/30/22 15:48:00 EDT, [facility] Partial fill upon patient request if... Start Date: 08/30/22 Stop Date: 09/06/22 Status: Ordered Right ankle & foot orthosis Right ankle & foot orthosis, See Instructions, # 1 each, Refills 1, Tot. Refills 1, Maintenance, Please dispense 1 right ankle and foot othosis Dx: R29.898, R26.81, M25.373 Length of need: 99 months Number to fax to: [phone], 01/06/21 13:10:00 E... Start Date: 01/06/21 Status: Ordered scopolamine 1 mg/72 hr transdermal film, extended release See Instructions, APPLY 1 PATCH TO RIGHT MASTOID BONE EVERY 72 HOURS, # 10 each, 3 Refills, Maintenance, 06/29/22 11:46:00 EST, [facility]/pharmacy #[id number], APPLY 1 PATCH TO RIGHT MASTOID BONE EVERY 72 HOURS,193.04, cm, 06/29/22 11:17:00 EST, Height, 99.6, kg... Start Date: 06/29/22 Status: Ordered scopolamine 1 mg/72 hr transdermal film, extended release 1 film, Topically, Every 72 hours, Apply to right mastoid bone, # 24 each, 1 Refills, Maintenance, 07/13/22 10:00:00 EST, [facility]/pharmacy #[id number], Partial fill upon patient request if the prescription is for a schedule II opioid drug., 1 film Topically Lucía... Start Date: 07/13/22 Status: Ordered tiZANidine 2 mg oral tablet See Instructions, TAKE 1 TABLET BY MOUTH three times A DAY, # 90 tablet, Refills 6, Tot. Refills 6,Maintenance, 07/04/22 12:44:00 EST, Instructions Replace Required Details, Route to Pharmacy Electronically, [facility]/pharmacy #1130, 193.04, cm, 07/04/22... Start Date: 07/04/22 [...] 05/20/22 19:50:00 EST, Route to Pharmacy Electronically, [facility]/pharmacy #1051, Partial fill upon patient request if the [...] apex Confirmed Active N CP Care Management, Manager Of Selection And Assessment Carmen Elizabeth [phone] Confirmed Active Therapeutic drug monitoring Confirmed Active Peripheral neuropathy Confirmed Active Spasticity Confirmed Active Tobacco dependence Confirmed Active Social History Social History Type Response Smoking Status 5-9 cigarettes (betw een / to 1/2 pack)/day in last 30 days entered on: 05/16/22 Sex Patient Care team information Care Team Personnel Name: Areli Pittman RN Position: [facility] ED RN W/OE and Tasks Member Role: Primary Care Nurse Name: Bettye Carney Position: [facility] RN Member Role: Primary Care Nurse Name: Derek Tomas MD Position: [facility] Resident Member Role: PCP Address: Address: [address] [place] [address] Name: Ally Boyd RN Position: [facility] RN Member Role: Primary Care Nurse Name: Axel Savage RN Position: [facility] RN Member Role: Primary Care Nurse Name: Filemon King RN Position: [facility] RN Member Role: Primary Care Nurse Name: Glenys Fox RN Position: [facility] RN Member Role: Primary Care Nurse Care Team Related Persons Name: BEVERLY REYNAGA Address: [address] [place] [address] Name: AISLINN DE LA PAZ Address: [address] [place] [address]
--- OUTSIDE RECORDS SUMMARY | 2023-02-03 22:25 | XMS_ITS | Continuity of Care Document ---
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 Book Salesman Name Role Phone Derek Tomas MD Primary Care Physician [place] [facility] [place] - 10/04/22 [facility] [address] [place] [address]- Attending Physician: Jose Peterson MD Allergies, Adverse Reactions, Alerts No Known [...] Mouth, Daily, # 30 tablet, 11 Refills, [facility], 193, cm, 10/26/21 9:21:00 EDT,Height, 97.2, kg, 10/26/21 9:21:00 EDT, Dry Weight Start Date: 11/15/21 Status: Ordered baclofen 20 mg oral tablet 20 mg, 1, tablet, By Mouth, 4 times a day, # 120 tablet, Refills 5, Tot. Refills 5, Maintenance, 10/26/21 9:45:00 EDT, Route to Pharmacy Electronically, [facility]/pharmacy #[id number], 193, cm, 10/26/21 9:21:00 EDT, Height, [...] due to severe hidradenitis L73.2 Please mike Wislon, 09/28/22 17:53:00 EDT, Supply Start Date: 09/28/22 Status: Ordered duloxetine 30 mg oral enteric coated capsule 1 capsule, By Mouth, Daily, # 30 capsule, 5 Refills, Maintenance, 08/17/22 15:25:00 EDT, [facility]259, 193.04, cm, 07/23/22 14:07:00 EDT, Height, 99.6, kg, 06/06/22 18:00:00 EST, Dry Weight Start Date: 08/17/22 Status: Ordered Eliquis 5 mg oral tablet 1 tablet, By Mouth, 2 times a day, # 60 tablet, 11 Refills, 02/07/22 11:13:00 EDT, [facility]/pharmacy #[id number], 193, cm, 02/07/22 10:31:00 EDT, Height, 97.2, kg, 10/26/21 9:21:00 EDT, Dry Weight Start Date: 02/07/22 Status: Ordered ferrous sulfate 325 mg oral tablet TAKE 1 TABLET BY MOUTH EVERY DAY NEEDED Start Date: 09/12/22 Status: Ordered FLUoxetine 20 mg oral capsule 1, capsule, By Mouth, Daily, # 30 capsule, Refills 14, Maintenance, 08/13/22 15:55:00 EDT, Route toPharmacy Electronically, [facility], 193.04, cm, 07/23/22 14:07:00 EDT, Height, 99.6, [...] 02/22/22 9:42:00 EDT, Route to Pharmacy Electronically, [facility], 193, cm, 02/07/22 10:31:00 EDT, Height, 97.2, [...] capsule, 5 Refills, Maintenance, 08/13/22 15:28:00 EDT, [facility]/pharmacy #2071, 193.04, cm, 07/23/22 14:07:00 EDT, Height, 99.6, kg, 06/06/22 18:00:00 EST, Dry Weight Start Date: 08/13/22 Status: Ordered oxycodone 15 mg oral tablet, extended release 1 tablet = 15 mg, By Mouth, Every 12 hours, # 60 tablet, 0 Refills, Maintenance, 09/07/22 10:23:00 EDT, ER Tablet, [facility]/pharmacy #1130, Partial fill upon patient request if [...] need: 99 months Number to fax to: [phone], 01/06/21 13:10:00 E... Start Date: 01/06/21 Status: Ordered scopolamine 1 mg/72 hr transdermal film, extended release See Instructions, APPLY 1 PATCH TO RIGHT MASTOID BONE EVERY 72 HOURS, # 10 each, 3 Refills, Maintenance, 06/29/22 11:46:00 EST, [facility]/pharmacy #[id number], APPLY 1 PATCH TO RIGHT MASTOID BONE EVERY 72 HOURS,193.04, cm, 06/29/22 11:17:00 EST, Height, 99.6, kg... Start Date: 06/29/22 Status: Ordered scopolamine 1 mg/72 hr transdermal film, extended release 1 film, Topically, Every 72 hours, Apply to right mastoid bone, # 24 each, 1 Refills, Maintenance, 07/13/22 10:00:00 EST, [facility]/pharmacy #2071, Partial fill upon patient request if [...] 99 for PCP Jacobo Fuchs Fax to [facility], 07/23/22 14:27:00... Start Date: 07/23/22 Status: Ordered Tylenol 325 mg oral tablet 650 mg, 2, tablet, By Mouth, Every 4 hours, PRN, # 120 tablet, Refills 0, Tot. Refills 0, Acute 05/21/23 19:50:00 EST, for pain, 05/20/22 19:50:00 EST, Route to Pharmacy Electronically, [facility]/pharmacy #[id number], Partial fill upon patient request if the [...] apex Confirmed Active N CP Care Management, Field Human Resources Manager Carmen Elizabeth [phone] Confirmed Active Therapeutic drug monitoring Confirmed Active Peripheral neuropathy Confirmed Active Spasticity Confirmed Active Tobacco dependence Confirmed Active Social History Social History Type Response Smoking Status 5-9 cigarettes (betw een 1/4 to 1/2 pack)/day in last 30 days entered on: 05/16/22 Sex Patient Care team information Care Team Personnel Name: Areli Pittman RN Position: [facility] ED RN W/OE and Tasks Member Role: Primary Care Nurse Name: Derek Tomas MD Position: [facility] Resident Member Role: PCP Address: Address: [address] [place] [address]- Name: Ally Boyd RN Position: [facility] RN Member Role: Primary Care Nurse Name: Axel Savage RN Position: [facility] RN Member Role: Primary Care Nurse Name: Filemon King RN Position: [facility] RN Member Role: Primary Care Nurse Name: Glenys Fox RN Position: [facility] RN Member Role: Primary Care Nurse Care Team Related Persons Name: BEVERLY REYNAGA Address: [address] [place] [address] Name: AISLINN DE LA PAZ Address: [address] [place] [address]
--- OUTSIDE RECORDS SUMMARY | 2023-02-03 22:25 | XMS_ITS | Continuity of Care Document ---
Author Name Unknown Organization [facility] Address Unknown Care Team Providers Care Loan Documents Closer Name Role Phone Judie Mills DO Primary Care Physician [place] [facility] [place] [id number] Date(s): 07/27/21 - 08/03/21 [facility] Attending Physician: Shaun Gallegos MD Referring Physician: Judie Mills DO Allergies, Adverse Reactions, Alerts No Known Allergies Immunizations Given and Recorded Vaccine Date Status Refusal Reason tetanus/diphtheria/pertussis, acel(Tdap) 09/13/19 Recorded Medications amLODIPine 5 mg oral tablet 5 mg, 1, tablet, By Mouth, Daily, # 30 tablet, Refills 11, Tot. Refills 11, Maintenance, 10/31/20 12:56:00 EDT, Route to Pharmacy Electronically, [facility]/pharmacy #[id number], Partial fill upon patient requestif the prescription is for a schedule II opioid laura... Start Date: 10/31/20 Status: Ordered apixaban 5 mg oral tablet 1 tablet = 5 mg, By Mouth, 2 times a day, # 60 tablet, 11 Refills, Maintenance, 10/31/20 12:55:00 EDT, Tablet, [facility]/pharmacy #[id number], Partial fill upon patient request if the prescription is for a schedule II opioid drug., 187.6, cm, 10/19/20 9:25:00 EDT... Start Date: 10/31/20 Status: Ordered baclofen 10 mg oral tablet 10 mg, 1, tablet, By Mouth, 3 times a day, # 90 tablet, Refills 5, Tot. Refills 5, Maintenance, 07/12/21 17:17:00 EST, Route to Pharmacy Electronically, [facility]/pharmacy #[id number], Partial fill upon patient [...] 0 Refills, Maintenance, 04/06/20 16:11:00 EST, Gel, [facility]/pharmacy #[id number], Partial fill upon patient [...] 11/22/20 8:13:00 EDT, Route to Pharmacy Electronically, [facility] 45809, 187.6, cm, 10/19/20 9:25:00 EDT, Height, 101.4, [...] 04/03/21 14:16:00 EST, [id number] Note bedtime dose change, 193, cm, 03/15/21 16:10:00 EDT, Height, 104.5,... Start Date: 04/03/21 Stop Date: 08/01/21 Status: Ordered metoclopramide 10 mg oral tablet, disintegrating 1 tablet = 10 mg, By Mouth, Every 8 hours, PRN Nausea & Vomiting, # 28 tablet, 0 Refills, Maintenance, 02/24/21 17:09:00 EDT, DIS Tablet, [facility]/pharmacy #[id number], Partial fill upon patient [...] 5 Refills, Maintenance, 03/13/21 13:24:00 EDT, ECCapsule, [facility]/pharmacy #[id number], Partial fill upon patient [...] 03/15/21 22:43:00 EDT, Route to Pharmacy Electronically, [facility]/pharmacy #[id number], Partial fill upon patient [...] need: 99 months Number to fax to: [phone], 01/06/21 13:10:00 E... Start Date: 01/06/21 Status: Ordered scopolamine 1 mg/72 hr transdermal film, extended release 1 film, Topically, Every 72 hours, Apply to right mastoid bone, # 10 each, 1 Refills, Acute 07/13/22 10:00:00 EST, 07/12/21 16:55:00 EST, [facility]/pharmacy #[id number], Partial fill upon patient [...] Refills, Maintenance, 11/22/20 8:13:00 EDT, [facility], 187.6, cm, 10/19/20 9:25:00 EDT, Height, 101.4, [...] buttock(Confirmed) Active Insomnia(Confirmed) Active Tobacco dependence(Confirmed) Active Vital Signs Most recent to oldest [Reference Range]: 1 Height 193 cm (07/27/21 8:35 AM) Weight 99.6 kg (07/27/21 8:35 AM) Oxygen Saturation [94-100 %] 98 % (07/27/21 8:35 AM) Pulse Rate [55-90 bpm] 63 bpm (07/27/21 8:35 AM) Body Mass Index [18.5-24.99] 26.74 *H* (07/27/21 8:35 AM) Blood Pressure [90-138/55-84 mm Hg] 140/ 74mm Hg *H* (07/27/21 8:35 AM) Temperature [96.8-100.4 DegF] 98.3 DegF (07/27/21 8:35 AM) Blood pressure sites Arm, left (07/27/21 8:35 AM) Temperature Route Temporal (07/27/21 8:35 AM) Social History Social History Type Response Smoking Status 10 or more cigarette s (1/2 pack or more)/day in last 30 days entered on: 02/29/20 Sex
--- OUTSIDE RECORDS SUMMARY | 2023-02-03 22:25 | XMS_ITS | Continuity of Care Document ---
Author Name Unknown Organization [facility] Address [address] [place] [address]- Care Team Providers Care Airplane Technician Name Role Phone Judie Mills DO Primary Care Physician [place] [facility] [place](s): 02/23/21 - 03/25/[address] [address]- Allergies, Adverse Reactions, Alerts Substance Reaction Severity Status NKA Active Immunizations Given and Recorded Vaccine Date Status Refusal Reason tetanus/diphtheria/pertussis, acel(Tdap) 09/13/19 Recorded Medications amLODIPine 5 mg oral tablet 5 mg, 1, tablet, By Mouth, Daily, # 30 tablet, Refills 11, Tot. Refills 11, Maintenance, 10/31/20 12:56:00 EDT, Route to Pharmacy Electronically, [facility]/pharmacy #[id number], Partial fill upon patient requestif the prescription is for a schedule II opioid laura... Start Date: 10/31/20 Status: Ordered apixaban 5 mg oral tablet 1 tablet = 5 mg, By Mouth, 2 times a day, # 60 tablet, 11 Refills, Maintenance, 10/31/20 12:55:00 EDT, Tablet, [facility]/pharmacy #[id number], Partial fill upon patient [...] Topically 2 times a day, 187.6, cm, 10/19/20 15:04:00 EDT, Height Start Date: 04/06/20 Status: [...] EDT, Route to Pharmacy Electronically, [facility] 97156, 187.6, cm, 10/19/20 9:25:00 EDT, Height, 101.4, kg, 08/27/20 1:59:00 EDT, Dry Weight Start Date: 11/22/20 Status: Ordered gabapentin 100 mg oral capsule 100 mg, 1, capsule, By Mouth, 3 times a day, # 90 capsule, Refills 11, Tot. Refills 11, Maintenance, 11/02/20 17:57:00 EDT, Route to Pharmacy Electronically, [facility]/pharmacy #[id number], Partial fill upon patient [...] Refills, Maintenance, 03/13/21 13:24:00 EDT, ECCapsule, [facility]/pharmacy #[id number], Partial fill upon patient [...] EDT, Route to Pharmacy Electronically, [facility]/pharmacy #[id number], Partial fill upon patient [...] need: 99 months Number to fax to: [phone], 01/06/21 13:10:00 E... Start Date: 01/06/21 Status: Ordered SEROquel 25 mg oral tablet 25 mg, 1, tablet, By Mouth, 2 times a day, # 60 tablet, Refills 3, Tot. Refills 3, Maintenance, 11/25/20 15:58:00 EDT, Route to Pharmacy Electronically, [facility]/pharmacy #[id number], Partial fill upon patient [...] Refills, Maintenance, 11/22/20 8:13:00 EDT, [facility], 187.6, cm, 10/19/20 9:25:00 EDT, Height, 101.4, [...]
--- OUTSIDE RECORDS SUMMARY | 2023-02-03 22:25 | XMS_ITS | Continuity of Care Document ---
Author Name Unknown Organization [facility] Address [address] [place] [address]- Care Team Providers Care Formal Service Waiter Name Role Phone Judie Mills DO Primary Care Physician [phone] [place] [facility] [id number] Date(s): 02/15/21 - 03/23/[address] [address] Attending Physician: Not on Staff, Attending MD Allergies, Adverse Reactions, Alerts Substance Reaction Severity Status NKA Active Immunizations Given and Recorded Vaccine Date Status Refusal Reason tetanus/diphtheria/pertussis, acel(Tdap) 09/13/19 Recorded Medications amLODIPine 5 mg oral tablet 5 mg, 1, tablet, By Mouth, Daily, # 30 tablet, Refills 11, Tot. Refills 11, Maintenance, 10/31/20 12:56:00 EDT, Route to Pharmacy Electronically, [facility]/pharmacy #[id number], Partial fill upon [...] 11/22/20 8:13:00 EDT, Route to Pharmacy Electronically, [facility] 28646, 187.6, cm, 10/19/20 9:25:00 EDT, Height, 101.4, kg, 08/27/20 1:59:00 EDT, Dry Weight Start Date: 11/22/20 Status: Ordered gabapentin 100 mg oral capsule 100 mg, 1, capsule, By Mouth, 3 times a day, # 90 capsule, Refills 11, Tot. Refills 11, Maintenance, 11/02/20 17:57:00 EDT, Route to Pharmacy Electronically, [facility]/pharmacy #[id number], Partial fill upon [...] 5 Refills, Maintenance, 03/13/21 13:24:00 EDT, ECCapsule, [facility]/pharmacy #[id number], Partial fill upon [...] 03/15/21 22:43:00 EDT, Route to Pharmacy Electronically, [facility]/pharmacy #[id number], Partial fill upon [...] need: 99 months Number to fax to: [phone], 01/06/21 13:10:00 E... Start Date: 01/06/21 Status: Ordered SEROquel 25 mg oral tablet 25 mg, 1, tablet, By Mouth, 2 times a day, # 60 tablet, Refills 3, Tot. Refills 3, Maintenance, 11/25/20 15:58:00 EDT, Route to Pharmacy Electronically, [facility]/pharmacy #[id number], Partial fill upon [...] Refills, Maintenance, 11/22/20 8:13:00 EDT, [facility], 187.6, cm, 10/19/20 9:25:00 EDT, Height, 101.4, [...]
--- OUTSIDE RECORDS SUMMARY | 2023-02-03 22:25 | XMS_ITS | Continuity of Care Document ---
Author Name Unknown Organization [facility] Address [address] [place] [address]- Care Team Providers Care Calender Machine Operator Helper Name Role Phone Judie Mills DO Primary Care Physician [phone] Encounter [facility] [place] Date(s): 02/02/21 - 03/24/[address] [address] Attending Physician: Not on Staff, Attending MD Allergies, Adverse Reactions, Alerts Substance Reaction Severity Status NKA Active Immunizations Given and Recorded Vaccine Date Status Refusal Reason tetanus/diphtheria/pertussis, acel(Tdap) 09/13/19 Recorded Medications amLODIPine 5 mg oral tablet 5 mg, 1, tablet, By Mouth, Daily, # 30 tablet, Refills 11, Tot. Refills 11, Maintenance, 10/31/20 12:56:00 EDT, Route to Pharmacy Electronically, [facility]/pharmacy #[id number], Partial fill upon patient requestif [...] 11/22/20 8:13:00 EDT, Route to Pharmacy Electronically, [facility] 79631, 187.6, cm, 10/19/20 9:25:00 EDT, Height, 101.4, kg, 08/27/20 1:59:00 EDT, Dry Weight Start Date: 11/22/20 Status: Ordered gabapentin 100 mg oral capsule 100 mg, 1, capsule, By Mouth, 3 times a day, # 90 capsule, Refills 11, Tot. Refills 11, Maintenance, 11/02/20 17:57:00 EDT, Route to Pharmacy Electronically, [facility]/pharmacy #[id number], Partial fill upon patient request if the prescription is for a schedule I... Start Date: 11/02/20 Status: Ordered metoclopramide 10 mg oral tablet, disintegrating 1 tablet = 10 mg, By Mouth, Every 8 hours, PRN Nausea & Vomiting, # 28 tablet, 0 Refills, Maintenance, 02/24/21 17:09:00 EDT, DIS Tablet, [facility]/pharmacy #[id number], Partial fill upon patient request [...] 5 Refills, Maintenance, 03/13/21 13:24:00 EDT, ECCapsule, [facility]/pharmacy #[id number], Partial fill upon patient request [...] 03/15/21 22:43:00 EDT, Route to Pharmacy Electronically, [facility]/pharmacy #[id number], Partial fill upon patient request [...] need: 99 months Number to fax to: [phone], 01/06/21 13:10:00 E... Start Date: 01/06/21 Status: Ordered SEROquel 25 mg oral tablet 25 mg, 1, tablet, By Mouth, 2 times a day, # 60 tablet, Refills 3, Tot. Refills 3, Maintenance, 11/25/20 15:58:00 EDT, Route to Pharmacy Electronically, [facility]/pharmacy #4451, Partial fill upon patient request if the [...] Refills, Maintenance, 11/22/20 8:13:00 EDT, [facility], 187.6, cm, 10/19/20 9:25:00 EDT, Height, 101.4, [...]
--- OUTSIDE RECORDS SUMMARY | 2023-02-03 22:26 | XMS_ITS | Continuity of Care Document ---
Author Name Unknown Organization [facility] Address Unknown Care Team Providers Care Software Support Specialist Name Role Phone Judie Mills DO Primary Care Physician [phone] [place] [facility] [place] 06/[place]21 - 07/27/21 [facility] Allergies, Adverse Reactions, Alerts No Known Allergies Immunizations Given and Recorded Vaccine Date Status Refusal Reason tetanus/diphtheria/pertussis, acel(Tdap) 09/13/19 Recorded Medications amLODIPine 5 mg oral tablet 5 mg, 1, tablet, By Mouth, Daily, # 30 tablet, Refills 11, Tot. Refills 11, Maintenance, 10/31/20 12:56:00 EDT, Route to Pharmacy Electronically, [facility]/pharmacy #[id number], Partial fill upon patient requestif the [...] 07/12/21 17:17:00 EST, Route to Pharmacy Electronically, [facility]/pharmacy #2071, Partial fill upon patient request if the prescription is for a schedule II opi... Start Date: 07/12/21 Status: Ordered clindamycin 1% topical gel 1 application, Topically, 2 times a day, # 60 Gm, 0 Refills, Maintenance, 04/06/20 16:11:00 EST, Gel, [facility]/pharmacy #[id number], Partial fill upon patient request, 1 [...] 8:13:00 EDT, Route to Pharmacy Electronically, [facility] STORE 93585, 187.6, cm, 10/19/20 9:25:00 EDT, Height, 101.4, [...] 04/03/21 14:16:00 EST, Route to Pharmacy Electronically, [facility]/pharmacy #2073, Note bedtime dose change, 193, cm, 03/15/21 16:10:00 EDT, Height, 104.5,... Start Date: 04/03/21 Stop Date: 08/01/21 Status: Ordered metoclopramide 10 mg oral tablet, disintegrating 1 tablet = 10 mg, By Mouth, Every 8 hours, PRN Nausea & Vomiting, # 28 tablet, 0 Refills, Maintenance, 02/24/21 17:09:00 EDT, DIS Tablet, [facility]/pharmacy #2071, Partial fill upon patient request if [...] 5 Refills, Maintenance, 03/13/21 13:24:00 EDT, ECCapsule, [facility]/pharmacy #[id number], Partial fill upon patient request if [...] 03/15/21 22:43:00 EDT, Route to Pharmacy Electronically, [facility]/pharmacy #2071, Partial fill upon patient request if [...] need: 99 months Number to fax to: [phone], 01/06/21 13:10:00 E... Start Date: 01/06/21 Status: Ordered scopolamine 1 mg/72 hr transdermal film, extended release 1 film, Topically, Every 72 hours, Apply to right mastoid bone, # 10 each, 1 Refills, Acute 07/13/22 10:00:00 EST, 07/12/21 16:55:00 EST, [facility]/pharmacy #[id number], Partial fill upon patient request if [...] Refills, Maintenance, 11/22/20 8:13:00 EDT, [facility], 187.6, cm, 10/19/20 9:25:00 EDT, Height, 101.4, [...]
--- OUTSIDE RECORDS SUMMARY | 2023-02-03 22:26 | XMS_ITS | Continuity of Care Document ---
Author Name Unknown Organization [facility] Address Unknown Care Team Providers Care Marine Animal Trainer Name Role Phone Judie Mills DO Primary Care Physician Encounter [facility] [place] [facility] [id number] Date(s): 10/26/21 - 11/02/21 [facility] Encounter Diagnosis Spasticity(Discharge Diagnosis) - 10/26/21 Therapeutic drug monitoring(Discharge Diagnosis) - 10/26/21 Attending Physician: Shaun Gallegos MD Allergies, Adverse [...] 9:45:00 EDT, [facility], [id number], 193, cm, 10/26/21 9:21:00 EDT, Height, [...] Maintenance, 04/06/20 16:11:00 EST, Gel, [facility]/pharmacy #[id number], Partial fill upon patient [...] EDT, Route to Pharmacy Electronically, [facility] STORE 94610, 187.6, cm, 10/19/20 9:25:00 EDT, Height, 101.4, [...] 14:16:00 EST, Route to Pharmacy Electronically, [facility]/pharmacy #[id number], Note bedtime dose change, 193, cm, 03/15/21 16:10:00 EDT, Height, 104.5,... Start Date: 04/03/21 Stop Date: 08/01/21 Status: Ordered metoclopramide 10 mg oral tablet, disintegrating 1 tablet = 10 mg, By Mouth, Every 8 hours, PRN Nausea & Vomiting, # 28 tablet, 0 Refills, Maintenance, 02/24/21 17:09:00 EDT, DIS Tablet, [facility]/pharmacy #[id number], Partial fill upon patient [...] Maintenance, 03/13/21 13:24:00 EDT, ECCapsule, [facility]/pharmacy #[id number], Partial fill upon patient [...] 03/15/21 22:43:00 EDT, [id number] Partial fill upon patient request if the prescription is for a schedule II opioid dr... Start Date: 03/15/21 Status: Ordered Right ankle & foot orthosis Right ankle & foot orthosis, See Instructions, # 1 each, Refills 1, Tot. Refills 1, Maintenance, Please dispense 1 right ankle and foot othosis Dx: R29.898, R26.81, M25.373 Length of need: 99 months Number to fax to: [phone], 01/06/21 13:10:00 E... Start Date: 01/06/21 Status: Ordered scopolamine 1 mg/72 hr transdermal film, extended release 1 film, Topically, Every 72 hours, Apply to right mastoid bone, # 10 each, 1 Refills, Acute 07/13/22 10:00:00 EST, 07/12/21 16:55:00 EST, [facility]/pharmacy #[id number], Partial fill upon patient request if the prescription is for a schedule II opioid drug., 1 fi... Start Date: 07/12/21 Stop Date: 07/13/22 Status: Ordered scopolamine 1 mg/72 hr transdermal film, extended release 1 film, Topically, Every 72 hours, Apply to right mastoid bone, # 24 each, 1 Refills, Maintenance, 07/13/22 10:00:00 EST, [facility]/pharmacy #[id number], Partial fill upon patient [...] Refills, Maintenance, 11/22/20 8:13:00 EDT, [facility], 187.6, cm, 10/19/20 9:25:00 EDT, Height, 101.4, [...] monitoring(Confirmed) Active Spasticity(Confirmed) Active Tobacco dependence(Confirmed) Active Diagnosis Diagnosis Type Effective Dates Health Status Clinical Service Informant Spasticity Discharge Diagnosis 10/26/21 Therapeutic drug monitoring Discharge Diagnosis 10/26/21 Vital Signs Most recent to oldest [Reference Range]: 1 Height 193 cm (10/26/21 9:21 AM) Weight 97.2 kg (10/26/21 9:21 AM) Oxygen Saturation [94-100 %] 97 % (10/26/21 9:21 AM) Pulse Rate [55-90 bpm] 66 bpm (10/26/21 9:21 AM) Body Mass Index [18.5-24.99] 26.09 *H* (10/26/21 9:21 AM) Blood Pressure [90-138/55-84 mm Hg] 128/ 67mm Hg (10/26/21 9:21 AM) Mode of Delivery (Oxygen) Room air (10/26/21 9:21 AM) Blood pressure sites Arm, right (10/26/21 9:21 AM) Dry Weight 97.2 kg (10/26/21 9:21 AM) Social History Social History Type Response Smoking Status 10 or more cigarette s (1/2 pack or more)/day in last 30 days entered on: 02/29/20 Sex
--- OUTSIDE RECORDS SUMMARY | 2023-02-03 22:26 | XMS_ITS | Continuity of Care Document ---
Author Name Unknown Organization [facility] Address [address] [facility], [address] Floor, [address] [place] [address]- Care Team Providers Care Four Roll Calender Operator Name Role Phone Judie Mills DO Primary Care Physician Encounter [facility] [place] Date(s): 09/19/20 - 10/19/20 [facility] [address], [address], [address] [place] [id number] Attending Physician: Sangeetha Latif Admitting Physician: Sangeetha Latif Referring Physician: AdmtrSangeetha Allergies, Adverse Reactions, Alerts [...]
--- OUTSIDE RECORDS SUMMARY | 2023-02-03 22:26 | XMS_ITS | Continuity of Care Document ---
Author Name Unknown Organization [facility] Address [address] [place] [address]- Care Team Providers Care Hotel Desk Clerk Name Role Phone Derek Tomas MD Primary Care Physician [place] [facility] [place] - 06/21/[address] [address]- Allergies, Adverse Reactions, Alerts No Known Allergies [...] # 30 tablet, 11 Refills, [facility], 193, cm, 10/26/21 9:21:00 EDT,Height, 97.2, kg, 10/26/21 9:21:00 EDT, Dry Weight Start Date: 11/15/21 Status: Ordered baclofen 20 mg oral tablet 20 mg, 1, tablet, By Mouth, 4 times a day, # 120 tablet, Refills 5, Tot. Refills 5, Maintenance, 10/26/21 9:45:00 EDT, Route to Pharmacy Electronically, [facility]/pharmacy #2071, 193, cm, 10/26/21 9:21:00 EDT, Height, 97.2, kg, 10/26/21 9:21:00 EDT, Dry Weight Start Date: 10/26/21 Status: Ordered Eliquis 5 mg oral tablet 1 tablet, By Mouth, 2 times a day, # 60 tablet, 11 Refills, 02/07/22 11:13:00 EDT, [facility]/pharmacy #2071, 193, cm, 02/07/22 10:31:00 EDT, [...] Replace Required Details, Route to Pharmacy Electronically, [facility] STORE 72243, 193.04, cm, 06/07/22 13:41:00 EST, Height, 99.... Start Date: 06/11/22 Status: Ordered gabapentin 300 mg oral capsule 1, capsule, By Mouth, 3 times a day, # 90 capsule, Refills 5, Maintenance, 02/22/22 9:42:00 EDT, Route to Pharmacy Electronically, [facility] ST[facility] 19662, 193, cm, 02/07/22 10:31:00 EDT, Height, 97.2, kg, 10/26/21 9:21:00 EDT, Dry Weight Start Date: 02/22/22 Status: Ordered omeprazole 40 mg oral enteric coated capsule 1 capsule, By Mouth, Daily, # 30 capsule, 5 Refills, Maintenance, 02/22/22 9:43:00 EDT, [facility] STORE 32860, 193, cm, 02/07/22 10:31:00 EDT, Height, 97.2, kg, 10/26/21 9:21:00 EDT, Dry Weight Start Date: 02/22/22 Status: Ordered Right ankle & foot orthosis Right ankle & foot orthosis, See Instructions, # 1 each, Refills 1, Tot. Refills 1, Maintenance, Please dispense 1 right ankle and foot othosis Dx: R29.898, R26.81, M25.373 Length of need: 99 months Number to fax to: [phone], 01/06/21 13:10:00 E... Start Date: 01/06/21 Status: Ordered scopolamine 1 mg/72 hr transdermal film, extended release 1 film, Topically, Every 72 hours, Apply to right mastoid bone, # 24 each, 1 Refills, Maintenance, 07/13/22 10:00:00 EST, [facility]/pharmacy #[id number], Partial fill upon patient request if the prescription is for a schedule II opioid drug., 1 film Topically Lucía... Start Date: 07/13/22 Status: Ordered tiZANidine 2 mg oral tablet See Instructions, TAKE 1 TABLET BY MOUTH TWICE A DAY, # 60 tablet, Refills 3, Maintenance, 06/11/2311:04:00 EST, Instructions Replace Required Details, Route to Pharmacy Electronically, [facility] STORE 80821, 193.04, cm, 06/07/22 13:41:00 EST, Height, 99.6... Start Date: 06/11/22 Status: Ordered tiZANidine 2 mg oral tablet See Instructions, 1 tablet by mouth twice a day, # 60 tablet, Refills 3, Tot. Refills 3, Maintenance, 06/08/22 14:32:00 EST, Instructions Replace Required Details, Route to Pharmacy Electronically, [facility]/pharmacy #[id number], Partial fill upon patient request... [...] 19:50:00 EST, Route to Pharmacy Electronically, [facility]/pharmacy #4471, Partial fill upon patient request if [...] apex Confirmed Active N CP Care Management, Supervisor Mapping Carmen Elizabeth [phone] Confirmed Active Therapeutic drug monitoring Confirmed Active Peripheral neuropathy Confirmed Active Spasticity Confirmed Active Tobacco dependence Confirmed Active Social History Social History Type Response Smoking Status 5-9 cigarettes (betw een 1/4 to 1/2 pack)/day in last 30 days entered on: 05/16/22 Sex Patient Care team information Care Team Personnel Name: Areli Pittman RN Position: [facility] ED RN W/OE and Tasks Member Role: Primary Care Nurse Name: Bettye Carney Position: S RN Member Role: Primary Care Nurse Name: Derek Tomas MD Position: [facility] Resident Member Role: PCP Address: Address: [address] [place] [id number] Name: Ally Boyd RN Position: S RN Member Role: Primary Care Nurse Name: Axel Savage RN Position: S RN Member Role: Primary Care Nurse Name: Filemon King RN Position: S RN Member Role: Primary Care Nurse Name: Glenys Fox RN Position: S RN Member Role: Primary Care Nurse Care Team Related Persons Name: BEVERLY REYNAGA Address: home [address] [place] [id number] Name: AISLINN DE LA PAZ Address: [address] [address]
--- OUTSIDE RECORDS SUMMARY | 2023-02-03 22:26 | XMS_ITS | Continuity of Care Document ---
Author Name Unknown Organization [facility] Address [address] [place] [address]- Care Team Providers Care Records Technician Name Role Phone Judie Mills DO Primary Care Physician [phone] Encounter [facility] [place] Date(s): 03/22/20 - 04/21/[address] [address] Allergies, Adverse Reactions, Alerts Substance Reaction [...]
--- OUTSIDE RECORDS SUMMARY | 2023-02-03 22:26 | XMS_ITS | Continuity of Care Document ---
Author Name Unknown Organization [facility] Address [address] [place] [address]- Care Team Providers Care Sports Equipment Racker Name Role Phone Genoveva PAGAN, Derek Primary Care Physician [place] [facility] [place] 07/05/22 - 08/04/[address] [address]- Allergies, Adverse Reactions, Alerts No Known Allergies [...] Mouth, Daily, # 30 tablet, 11 Refills, [facility]19, 193, cm, 10/26/21 9:21:00 EDT,Height, 97.2, kg, [...] each, Refills 11, Tot. 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/pharmacy #[id number], Partial fill upon [...] Date: 05/17/22 Stop Date: 08/23/22 Status: Ordered gabapentin 300 mg oral capsule 1, capsule, By Mouth, 3 times a day, # 90 capsule, Refills 5, Maintenance, 02/22/22 9:42:00 EDT, Route to Pharmacy Electronically, [facility] 31148, 193, cm, 02/07/22 10:31:00 EDT, Height, 97.2, [...] Refills, Maintenance, 02/22/22 9:43:00 EDT, [facility], 193, cm, 02/07/22 10:31:00 EDT, Height, 97.2, kg, 10/26/21 9:21:00 EDT, Dry Weight Start Date: 02/22/22 Status: Ordered oxycodone 15 mg oral tablet, extended release 1 tablet = 15 mg, By Mouth, Every 12 hours, # 60 tablet, 0 Refills, Maintenance, 07/23/22 14:17:00 EDT, ER Tablet, [facility]/pharmacy #1130, Partial fill upon patient request if [...] need: 99 months Number to fax to: [phone], 01/06/21 13:10:00 E... Start Date: 01/06/21 Status: Ordered scopolamine 1 mg/72 hr transdermal film, extended release See Instructions, APPLY 1 PATCH TO RIGHT MASTOID BONE EVERY 72 HOURS, # 10 each, 3 Refills, Maintenance, 06/29/22 11:46:00 EST, [facility]/pharmacy #2071, APPLY 1 PATCH TO RIGHT MASTOID BONE EVERY 72 HOURS,193.04, cm, 06/29/22 11:17:00 EST, Height, 99.6, kg... Start Date: 06/29/22 Status: Ordered scopolamine 1 mg/72 hr transdermal film, extended release 1 film, Topically, Every 72 hours, Apply to right mastoid bone, # 24 each, 1 Refills, Maintenance, 07/13/22 10:00:00 EST, [facility]/pharmacy #2237, Partial fill upon patient request if the prescription is for a schedule II opioid drug., 1 film Topically Lucía... Start Date: 07/13/22 Status: Ordered tiZANidine 2 mg oral tablet See Instructions, TAKE 1 TABLET BY MOUTH three times A DAY, # 90 tablet, Refills 6, Tot. Refills 6,Maintenance, 07/04/22 12:44:00 EST, Instructions Replace Required Details, Route to Pharmacy Electronically, [facility]/pharmacy #1130, 193.04, cm, 07/04/22... Start Date: 07/04/22 [...] 19:50:00 EST, [facility] Partial fill upon patient request if the [...] apex Confirmed Active N CP Care Management, Park Attendant Carmen Elizabeth [phone] Confirmed Active Therapeutic drug monitoring Confirmed Active [...] Primary Care Nurse Name: Bettye Carney Position: [facility] RN Member Role: Primary Care Nurse Name: Derek Tomas MD Position: [facility] Resident Member Role: PCP Address: Address: [address] [place] [address]- Name: Ally Boyd RN Position: [facility] RN Member Role: Primary Care Nurse Name: Axel Savage RN Position: [facility] RN Member Role: Primary Care Nurse Name: Filemon King RN Position: [facility] RN Member Role: Primary Care Nurse Name: Glenys Fox RN Position: [facility] RN Member Role: Primary Care Nurse Care Team Related Persons Name: BEVERLY REYNAGA Address: [address] [address] Name: AISLINN DE LA PAZ Address: [address] [address]
--- OUTSIDE RECORDS SUMMARY | 2023-02-03 22:26 | XMS_ITS | Continuity of Care Document ---
Author Name Unknown Organization [facility] Address [address] [place] [address]- Care Team Providers Care Grain Cleaner Name Role Phone Derek Tomas MD Primary Care Physician Encounter [facility] [place] Date(s): 09/17/22 - 11/22/22 [facility] [address] [place] [address]- Attending Physician: Jose Peterson MD Referring Physician: Derek Tomas MD Allergies, Adverse Reactions, Alerts No Known [...] Mouth, Daily, # 30 tablet, 11 Refills, [facility] STORE 17140, 193, cm, 10/26/21 9:21:00 EDT,Height, 97.2, kg, 10/26/21 9:21:00 EDT, Dry Weight Start Date: 11/15/21 Status: Ordered baclofen 20 mg oral tablet 20 mg, 1, tablet, By Mouth, 4 times a day, # 120 tablet, Refills 5, Tot. Refills 5, Maintenance, 10/26/21 9:45:00 EDT, Route to Pharmacy Electronically, [facility]/pharmacy #2071, 193, cm, 10/26/21 9:21:00 EDT, [...] Refills, Maintenance, 08/17/22 15:25:00 EDT, [facility], 193.04, cm, 07/23/22 14:07:00 EDT, Height, 99.6, kg, 06/06/22 18:00:00 EST, Dry Weight Start Date: 08/17/22 Status: Ordered Eliquis 5 mg oral tablet 1 tablet, By Mouth, 2 times a day, # 60 tablet, 11 Refills, 02/07/22 11:13:00 EDT, [facility]/pharmacy #2071, 193, cm, 02/07/22 10:31:00 EDT, Height, 97.2, kg, 10/26/21 9:21:00 EDT, Dry Weight Start Date: 02/07/22 Status: Ordered ferrous sulfate 325 mg oral tablet TAKE 1 TABLET BY MOUTH EVERY DAY NEEDED Start Date: 09/12/22 Status: Ordered FLUoxetine 20 mg oral capsule 1, capsule, By Mouth, Daily, # 30 capsule, Refills 14, Maintenance, 08/13/22 15:55:00 EDT, Route toPharmacy Electronically, [facility] 52189, 193.04, cm, 07/23/22 14:07:00 EDT, Height, 99.6, [...] 02/22/22 9:42:00 EDT, Route to Pharmacy Electronically, [facility] STORE 92664, 193, cm, 02/07/22 10:31:00 EDT, Height, 97.2, [...] capsule, 5 Refills, Maintenance, 08/13/22 15:28:00 EDT, [facility]/pharmacy #2071, 193.04, cm, 07/23/22 14:07:00 EDT, Height, 99.6, kg, 06/06/22 18:00:00 EST, Dry Weight Start Date: 08/13/22 Status: Ordered oxycodone 15 mg oral tablet, extended release 1 tablet = 15 mg, By Mouth, Every 12 hours, # 60 tablet, 0 Refills, Maintenance, 10/16/22 16:53:00 EDT, ER Tablet, [facility]/pharmacy #1130, Partial fill upon patient request [...] need: 99 months Number to fax to: [phone], 01/06/21 13:10:00 E... Start Date: 01/06/21 Status: Ordered scopolamine 1 mg/72 hr transdermal film, extended release See Instructions, APPLY 1 PATCH TO RIGHT MASTOID BONE EVERY 72 HOURS, # 10 each, 3 Refills, Maintenance, 06/29/22 11:46:00 EST, [facility]/pharmacy #2071, APPLY 1 PATCH TO RIGHT MASTOID BONE EVERY 72 HOURS,193.04, cm, 06/29/22 11:17:00 EST, Height, 99.6, kg... Start Date: 06/29/22 Status: Ordered scopolamine 1 mg/72 hr transdermal film, extended release 1 film, Topically, Every 72 hours, Apply to right mastoid bone, # 24 each, 1 Refills, Maintenance, 07/13/22 10:00:00 EST, [facility]/pharmacy #[id number], Partial fill upon [...] 05/20/22 19:50:00 EST, Route to Pharmacy Electronically, [facility]/pharmacy #4526, Partial fill upon patient request if the [...] apex Confirmed Active N CP Care Management, School Photographer Carmen Elizabeth [phone] Confirmed Active Therapeutic drug monitoring Confirmed Active Peripheral neuropathy Confirmed Active Spasticity Confirmed Active Tobacco dependence Confirmed Active Social History Social History Type Response Smoking Status 5-9 cigarettes (betw een 1/4 to 1/2 pack)/day in last 30 days entered on: 05/16/22 Sex Patient Care team information Care Team Personnel Name: Areli Pittman RN Position: [facility] ED RN W/OE and Tasks Member Role: Primary Care Nurse Name: Derek Tomas MD Position: [facility] Resident Member Role: PCP Address: Address: [address] [place] [address]- Name: Ally Boyd RN Position: S RN Member Role: Primary Care Nurse Name: Axel Savage RN Position: S RN Member Role: Primary Care Nurse Name: Filemon King RN Position: [facility] RN Member Role: Primary Care Nurse Name: Glenys Fox RN Position: [facility] RN Member Role: Primary Care Nurse Care Team Related Persons Name: BEVERLY REYNAGA Address: [address] [address] Name: AISLINN DE LA PAZ Address: [address] [address]
--- OUTSIDE RECORDS SUMMARY | 2023-02-03 22:26 | XMS_ITS | Continuity of Care Document ---
Author Name Unknown Organization 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 ST[facility] 57678, 187.6, cm, 10/19/20 9:25:00 EDT, Height, 101.4, [...] Refills, Maintenance, 03/13/21 13:24:00 EDT, ECCapsule, [facility]/pharmacy #[id number], Partial fill [...] 22:43:00 EDT, [facility] [...] need: 99 months Number to fax to: [phone], 01/06/21 13:10:00 E... Start Date: 01/06/21 Status: Ordered SEROquel 25 mg oral tablet 25 mg, 1, tablet, By Mouth, 2 times a day, # 60 tablet, Refills 3, Tot. Refills 3, Maintenance, 11/25/20 15:58:00 EDT, Route to Pharmacy Electronically, [facility]/pharmacy #2591, Partial fill upon patient request if the [...] 11 Refills, Maintenance, 11/22/20 8:13:00 EDT, [facility] ST[facility] 63750, 187.6, cm, 10/19/20 9:25:00 EDT, Height, 101.4, [...]
--- OUTSIDE RECORDS SUMMARY | 2023-02-03 22:26 | XMS_ITS | Continuity of Care Document ---
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 Encounter Diagnosis Acute left ICA ischemic stroke(Final) - 08/26/20 Acute left ICA ischemic stroke(Final) - 08/26/20 Discharge Disposition: Disch/Trans to IP Rehab or unit w/in Hos Attending Physician: Jose Luis Barrios MD Admitting Physician: Mary Rivero MD Referring Physician: Not on Staff, Referring MD Allergies, Adverse Reactions, Alerts Substance Reaction Severity Status NKA Active Medications amLODIPine 5 mg oral tablet 5 mg, 1, tablet, By Mouth, Daily, Refills 0, Maintenance, 09/12/20 14:41:00 EDT, Partial fill upon patient request if the prescription is for a schedule II opioid drug. Start Date: 09/12/20 Status: Ordered amLODIPine 5 mg oral tablet 5 mg, Tablet, By Mouth, 09/12/20 9:00:00 EDT Start Date: 09/12/20 Stop Date: 09/12/20 Status: Completed apixaban = 5 mg, By Mouth, 2 times a day, 0 Refills, Maintenance, 09/12/20 14:41:00 EDT, Tablet, Partial fill upon patient request if the prescription is for a schedule II opioid drug. Start Date: 09/12/20 Status: Ordered clindamycin 1% topical gel 1 application, Topically, 2 times a day, # 60 Gm, 0 Refills, Maintenance, 04/06/20 16:11:00 EST, Gel, [id number], Partial fill upon patient request, 1 application [...] gabapentin 100 mg oral capsule 100 mg, Capsule, By Mouth, 09/12/20 14:00:00 EDT Start Date: 09/12/20 Stop Date: 09/12/20 Status: Completed [facility] Crohns/Ulcer Colitis/Hidradenitis Suppurativa Starterr Pack 80 mg/0.8 [...] Wound of buttock(Confirmed) Active Tobacco dependence(Confirmed) Active Results Orders for Microbiology Reports Name Date Wound Deep Culture w/ Gram Smear (DEEP W OUND CULTURE) 09/06/20 Blood Culture 08/26/20 Blood Culture #2 08/26/20 Microbiology Reports TEST:Deep Wound Culture STATUS:Auth (Verified) BODY SITE: SOURCE:LESION1 COLLECTED DATE/TIME:09/06/20 1:15 AM Deep Wound Culture SPECIMEN DESCRIPTION : LESION BACK SPECIAL REQUESTS : NONE GRAM STAIN : 3+ POLYMORPHONUCLEAR LEUKOCYTES 1+ GRAM POSITIVE COCCI 1+ GRAM POSITIVE RODS CULTURE : 2+ STAPH. SPECIES, NOT STAPH. AUREUS REPORT STATUS : FINAL 09/08/2020 ORGANISM 2+ STAPH. SPECIES, NOT STAPH. AUREUS METHOD MIN. INHIB. CONC. (MCG/ML) CIPROFLOXACIN SUSCEPTIBLE CLINDAMYCIN SUSCEPTIBLE ERYTHROMYCIN RESISTANT INDUCIBLE CLINDAMYCI NEGATIVE LEVOFLOXACIN SUSCEPTIBLE RIFAMPIN SUSCEPTIBLE RIFAMPIN RIFAMPIN SHOULD NOT BE USED ALONE FOR ANTIMICROBIAL RIFAMPIN THERAPY. TRIMETH/SULFAMETHOX SUSCEPTIBLE VANCOMYCIN SUSCEPTIBLE TEST:Blood Culture, Second Order STATUS:Auth (Verified) BODY SITE: SOURCE:Blood COLLECTED DATE/TIME:08/26/20 11:55 PM Blood Culture, Second Order SPECIMEN DESCRIPTION : BLOOD NO SITE SPECIAL REQUESTS : NONE CULTURE : NO GROWTH 5 DAYS. REPORT STATUS : FINAL 09/01/2020 TEST:Blood Culture STATUS:Auth (Verified) BODY SITE: SOURCE:Blood COLLECTED DATE/TIME:08/26/20 11:30 PM Blood Culture SPECIMEN DESCRIPTION : BLOOD NO SITE SPECIAL REQUESTS : NONE CULTURE : NO GROWTH 5 DAYS. REPORT STATUS : FINAL 09/01/2020 Radiology Reports * Exam Date Time Procedure Performing Provider Status 09/09/20 11:36 AM Esophagus Barium Swallow Chelsie Marx na; Auth (Verified) Notes: (Esophagus Barium Swallow) Reason For Exam: Dysphagia;intractable hiccups RESULT: Esophagus Barium Swallow PROCEDURE: Esophagus Barium Swallow CLINICAL INDICATION: Dysphagia, intractable hiccups. COMPARISONS: None FLUOROSCOPY TIME: 3 Min Dose Area Product (DAP): 2399.8 uGy*m2 TECHNIQUE: Barium contrast esophagram was performed by Dr. Ribeiro under the personal supervision of Dr. Mena. FINDINGS: Swallow: Normal oral and pharyngeal phases with no laryngeal penetration or subglottic aspiration. Esophagus: Normal in contour and mucosal appearance. Moderate tertiary contractions present in the mid and lower third of esophagus with slightly delayed transit of contrast into the stomach. No hiatal hernia. Spontaneous moderate reflux was seen until the middle third of the esophagus. No evidenceof esophageal web, narrowing or outpouching. No esophageal obstruction. The stomach and proximal duodenum are grossly normal. Contrast promptly empties from the stomach into a nondilated duodenum. No gastric outlet obstruction. IMPRESSION: Moderate esophageal dysmotility with reflux. By undersigning and finalizing the report, the attending radiologist confirms he/she has personallyreviewed and interpreted the images and agrees with the description of the findings. I have personally reviewed the images and I agree with this report. WSN: [id number] Ordering Physician: Mayda Perez Dictated By: Quintin[Radiology] Dayanara PAGAN Dictated Date/Time: 09/09/20 1:46 pm Reviewed By: Charlie Mena MD Signed By: Charlie Mena MD Signed Date/Time: 09/09/20 1:51 pm Transcribed By: ZEHRA Transcribed Date/Time: 09/09/20 11:43 am * Exam Date Time Procedure Performing Provider Status 09/02/20 9:29 AM Chest Portable Yvette Guevara; Chaitanya ( Verified) Notes: (Chest Portable) Reason For Exam: Fever/Increased White Count RESULT: Chest Portable Chest Portable AP upright at 9:16 AM REASON: Fever Increased White Count; Clinical Question(s): Pneumonia / Pneumonia COMPARISON: 08/29/2020 FINDINGS: LINES AND TUBES: None. LUNGS AND PLEURA: Low lung volumes with mild basilar atelectasis. Lungs are otherwise clear with no definite consolidation. No pleural effusion. No pneumothorax. HEART, MEDIASTINUM AND BERNARD: Heart is normal in size. Normal mediastinal and hilar contour. BONES AND SOFT TISSUES: No acute abnormality. There is barium in the colon. IMPRESSION: No evidence of acute abnormality. WSN: [id number] Ordering Physician: Fan Archibald Dictated By: Mando Worthington MD Dictated Date/Time: 09/02/20 9:43 am Reviewed By: Mando Worthington MD Signed By: Mando Worthington MD Signed Date/Time: 09/02/20 9:43 am Transcribed By: ZEHRA Transcribed Date/Time: 09/02/20 9:42 am * Exam Date Time Procedure Performing Provider Status 08/31/20 9:06 AM Modified Barium Swal low W/ Speech (Radio Francisco J , Sadie; Auth (Verified) Notes: (Modified Barium Swallow W/ Speech (Radio) Reason For Exam: Dysphagia;dysphagia RESULT: Modified Barium Swallow W/ Speech (Radio Modified Barium Swallow WITH SPEECH PATHOLOGY CLINICAL INDICATION: Dysphagia COMPARISON: None Technique: Lateral cine-videofluoroscopy was performed during the oral administration of various barium containing consistencies, as described below. Fluoroscopic imaging provided by RAGINI Evangelista, supervised by Aiden Bernal PA-C. Pulsed fluoroscopy time: 2.9 minutes Dose Area Product (DAP): 152.5 uGy*m2 Findings: Applesauce, pudding, nectar, mixed fruit/juice, cookies and thin barium consistencies were tested. Flash laryngeal penetration was seen when alternating thin and puree consistency. The oral and pharyngeal phases of swallowing were otherwise without evidence of laryngeal penetration or subglottic aspiration. IMPRESSION: Flash penetration as described. For dietary concerns or recommendations, please refer to speech pathologist report. By undersigning and finalizing the report, the attending radiologist confirms he/she has personallyreviewed and interpreted the images and agrees with the description of the findings. I have personally reviewed the images and I agree with this report. WSN: [id number] Ordering Physician: Jaquan Villegas Dictated By: Tong Mahan Dictated Date/Time: 08/31/20 9:24 am Reviewed By: Mando Worthington MD Signed By: Mando Worthington MD Signed Date/Time: 08/31/20 9:29 am Transcribed By: ZEHRA Transcribed Date/Time: 08/31/20 9:02 am * Exam Date Time Procedure Performing Provider Status 08/29/20 5:56 PM Abdomen AP Gwendolyn Valle; Auth ( Verified) Notes: (Abdomen AP) Reason For Exam: Nausea/Vomiting;N/V and NG placement RESULT: XR Abdomen AP XR Abdomen AP INDICATION/CLINICAL QUESTION: Reason: Nausea Vomiting; N V and NG placement; Clinical Question(s): Other:; Order Comment: PT getting bedside ultrasound @ 0439. Other: COMPARISON: None FINDINGS: Normal bowel gas pattern. No evidence of obstruction. No evidence of pneumoperitoneum. No organomegaly, masses or calcifications. No acute bone findings. Partially imaged left hip hardware. There is deformity of the left femoral head, presumed chronic. Enteric tube tip is in the region of the gastric antrum/first portion of the duodenum. IMPRESSION: Enteric tube tip is in the region of the gastric antrum/first portion the duodenum. WSN: [id number] Ordering Physician: Jaquan Villegas Dictated By: Farhana Newton MD Dictated Date/Time: 08/29/20 7:00 pm Reviewed By: Farhana Newton MD Signed By: Farhana Newton MD Signed Date/Time: 08/29/20 7:00 pm Transcribed By: ZEHRA Transcribed Date/Time: 08/29/20 6:59 pm * Exam Date Time Procedure Performing Provider Status 08/29/20 9:00 AM Chest Portable Farhana Cee; Chaitanya (Verified) Notes: (Chest Portable) Reason For Exam: Tube Placement RESULT: Chest Portable Examination: Portable chest performed on 08/29/2020 at 8:14 AM. History: Tube placement. Findings: A frontal view of the chest is compared to a prior study dated 08/28/2020. Enteric tube has the tip out of the [id number]. The tube is within the stomach. The cardiac silhouette is within normal limits for size. Low lung volumes are present. The lungs are clear. The osseous structures are intact. IMPRESSION: Enteric tube as described. There is no acute cardiopulmonary disease. WSN: [id number] Ordering Physician: Shayan Pack Dictated By: Sanna Montes MD Dictated Date/Time: 08/29/20 10:38 a Reviewed By: Sanna Montes MD Signed By: Snana Montes MD Signed Date/Time: 08/29/20 10:38 am Transcribed By: ZEHRA Transcribed Date/Time: 08/29/20 10:37 am * Exam Date Time Procedure Performing Provider Status 08/28/20 10:46 AM Chest Portable Juan Carlos Vail (V erified) Notes: (Chest Portable) Reason For Exam: Tube Placement RESULT: Chest Portable AP upright portable chest dated August 28, 2020 at 1038 hours. Comparison films are from August 27, 2020. HISTORY: Line placement. FINDINGS: The cardiac silhouette is within normal limits for size. A nasogastric tube extends into the left upper quadrant. The tip and sidehole are distal to the EG junction region. The apices of the lungs are not included on this study. No airspace infiltrate or pleural effusion is seen. Visualized osseous structures are unremarkable. IMPRESSION: Nasogastric tube in place. Examination 65776. Thank you for allowing me to participate in the care of this patient. WSN: [id number] Ordering Physician: Kisha Walker Dictated By: Patricio De Jesus MD Dictated Date/Time: 08/28/20 12:56 p Reviewed By: Patricio De Jesus MD Signed By: Patricio De Jesus MD Signed Date/Time: 08/28/20 12:56 pm Transcribed By: ZEHRA Transcribed Date/Time: 08/28/20 12:56 pm * Exam Date Time Procedure Performing Provider Status 08/27/20 4:32 AM Chest Portable Zenaida Arboleda (Verified) Notes: (Chest Portable) Reason For Exam: Line Placement RESULT: Chest Portable AP supine portable chest dated August 27, 2020 at 0408 hours. Comparison films are from August 26, 2020 at 2303 hours. HISTORY: Tube placement. FINDINGS: Today's study is very limited as it is focused specifically in the left side to evaluate for ET tube placement. The cardiac silhouette is within normal image for size. The oral gastric tube extends into the leftupper quadrant. It curls overlying the expected location of the fundus. The tip and sidehole are distal to the EG junction region. IMPRESSION: Orogastric tube in place as described above. Examination [id number]. Thank you for allowing me to participate in the care of this patient. WSN: [id number] Ordering Physician: Ahmet Stuart Dictated By: Patricio De Jesus MD Dictated Date/Time: 08/27/20 10:14 a Reviewed By: Patricio De Jesus MD Signed By: Patricio De Jesus MD Signed Date/Time: 08/27/20 10:14 am Transcribed By: ZEHRA Transcribed Date/Time: 08/27/20 10:13 am * Exam Date Time Procedure Performing Provider Status 08/26/20 11:18 PM Chest Portable Gwendolyn Valle; Aut h (Verified) Notes: (Chest Portable) Reason For Exam: Tube Placement RESULT: Chest Portable Chest Portable INDICATION: Tube placement. Patient transferred from an outside hospital for suspected stroke. Significant vomiting and drooling, intubated for airway protection. COMPARISON: None. FINDINGS: LINES AND TUBES: Endotracheal tube terminates about 2.8 cm above the roshni. Enteric tube side-port is above the GE junction and the distal end projects only slightly past the GE junction. LUNGS AND PLEURA: Mild bilateral lower lung haziness. No pleural effusion. No pneumothorax. HEART, MEDIASTINUM AND BERNARD: Heart is normal in size. Normal upper mediastinal and hilar contour. BONES AND SOFT TISSUES: No acute abnormality. IMPRESSION: Endotracheal tube terminates about 2.8 cm above the roshni. Enteric tube side-port is above the GE junction and the distal end projects only slightly past the GE junction. Recommend advancement by about 8 cm. Mild bilateral lower lung haziness, which may be due to mild atelectasis secondary to low lung volumes, although in this setting, aspiration pneumonia/pneumonitis is not excluded. Relayed findings to NELDA Avila, via Cortext at 11:36 PM on 08/26/2020, who has acknowledged the findings. I have personally reviewed the images and I agree with this report. WSN: [id number] Ordering Physician: Ahmet Stuart Dictated By: Tomasz Sevilla DO Dictated Date/Time: 08/26/20 11:41 p Reviewed By: Ronald Hogan MD Signed By: Ronald Hogan MD Signed Date/Time: 08/26/20 11:46 pm Transcribed By: ZEHRA Transcribed Date/Time: 08/26/20 11:37 pm Vital Signs Most recent to oldest [Reference Range]: 1 2 3 Height 187.6 cm (09/10/20 11:27 PM) 187.6 cm (09/10/20 7:54 PM) 187.6 cm (09/10/20 3:15 PM) Weight 92.8 kg (5/2/21 9:16 AM) 94.13 kg (09/07/20 8:00 AM) 93.5 kg (09/05/20 10:02 AM) Oxygen Saturation [94-100 %] 100 % (09/12/20 12:00 PM) 100 % (09/12/20 8:00 AM) 100 % (09/12/20 12:22 AM) Pulse Rate [55-90 bpm] 78 bpm (09/12/20 12:00 PM) 76 bpm (09/12/20 8:00 AM) 61 bpm (09/12/20:22 AM) Body Mass Index [18.5-24.99] 28.81 *H* (08/26/20 9:15 PM) Blood Pressure [90-138/55-84 mm Hg] 120/70mm Hg (09/12/20 12:00 PM) 129/69mm Hg (09/12/20 8:53 AM) 116/68mm Hg (09/12/20 12:22 AM) Respiratory Rate [16-30 br/min] 18 br/min (09/12/20 1:24 PM) 18 br/min (09/12/20 12:00 PM) 2 br/min *L* (09/12/20 8:00 AM) Temperature [96.8-100.4 DegF] 98.1 DegF (09/12/20 12:00 PM) 98.2 DegF (09/12/20 8:00 AM) 97.6 DegF (09/12/20 12:22 AM) Liters per Minute 0 L/min (09/12/20 12:00 PM) 0 L/min (09/12/20 8:00 AM) 0 L/min (09/09/20 4:00 PM) Mode of Delivery (Oxygen) Room air (09/12/20 12:00 PM) Room air (09/12/20 8:00 AM) Room air (09/12/20 12:22 AM) Blood pressure sites Arm, left (09/12/20 12:00 PM) Arm, left (09/12/20 12:22 AM) Arm, left (09/11/20 8:47 PM) Temperature Route Temporal (09/12/20 12:00 PM) Oral (09/12/20 8:00 AM) Temporal (09/12/20 12:22 AM) Dry Weight 101.4 kg (08/26/20 9:15 PM) Weight Obtained Via Bed scale (09/11/20 9:16 AM) Bed scale (09/04/20 5:12 AM) Bed scale (09/03/20 5:31 AM) Dry Weight Obtained Via Bed scale (08/26/20 9:15 PM) Social History Social History Type Response Smoking Status 10 or more cigarette s (1/2 pack or more)/day in last 30 days entered on: 02/29/20 Sex
--- OUTSIDE RECORDS SUMMARY | 2023-02-03 22:26 | XMS_ITS | Continuity of Care Document ---
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 Refills 11, Maintenance, 10/31/20 12:56:00 EDT, Route to Pharmacy Electronically, [facility] #[id number], Partial fill upon patient requestif the [...] 07/12/21 17:17:00 EST, Route to Pharmacy Electronically, [facility]/pharmacy #[id number], Partial fill upon patient request [...] 0 Refills, Maintenance, 04/06/20 16:11:00 EST, Gel, [facility]/pharmacy #[id number], Partial fill upon patient request, 1 [...] 11/22/20 8:13:00 EDT, Route to Pharmacy Electronically, [id number], 187.6, cm, 10/19/20 9:25:00 EDT, Height, 101.4, [...] 04/03/21 14:16:00 EST, Route to Pharmacy Electronically, [facility]/pharmacy #[id number], Note bedtime dose change, 193, cm, 03/15/21 16:10:00 EDT, Height, 104.5,... Start Date: 04/03/21 Stop Date: 08/01/21 Status: Ordered metoclopramide 10 mg oral tablet, disintegrating 1 tablet = 10 mg, By Mouth, Every 8 hours, PRN Nausea & Vomiting, # 28 tablet, 0 Refills, Maintenance, 02/24/21 17:09:00 EDT, DIS Tablet, [facility]/pharmacy #[id number], Partial fill upon patient request [...] 5 Refills, Maintenance, 03/13/21 13:24:00 EDT, ECCapsule, [facility]/pharmacy #[id number], Partial fill upon patient request [...] 03/15/21 22:43:00 EDT, Route to Pharmacy Electronically, [facility]/pharmacy #[id number], Partial fill upon patient request [...] need: 99 months Number to fax to: [phone], 01/06/21 13:10:00 E... Start Date: 01/06/21 Status: Ordered scopolamine 1 mg/72 hr transdermal film, extended release 1 film, Topically, Every 72 hours, Apply to right mastoid bone, # 10 each, 1 Refills, Acute 07/13/22 10:00:00 EST, 07/12/21 16:55:00 EST, [facility]/pharmacy #[id number], Partial fill upon patient request [...] Refills, Maintenance, 11/22/20 8:13:00 EDT, [id number], 187.6, cm, 10/19/20 9:25:00 EDT, Height, 101.4, [...]
--- OUTSIDE RECORDS SUMMARY | 2023-02-03 22:26 | XMS_ITS | Continuity of Care Document ---
Author Name Unknown Organization [facility] Address [address] [place] [address]- Care Team Providers Care Manager Animal Name Role Phone Judie Mills DO Primary Care Physician [phone] [place] [facility] [place] - 03/22/[address] [address]- Attending Physician: Not on Staff, Attending MD Referring Physician: Judie Mills DO Allergies, Adverse Reactions, Alerts Substance Reaction Severity Status NKA Active Immunizations Given and Recorded Vaccine Date Status Refusal Reason tetanus/diphtheria/pertussis, acel(Tdap) 09/13/19 Recorded Medications amLODIPine 5 mg oral tablet 5 mg, 1, tablet, By Mouth, Daily, # 30 tablet, Refills 11, Tot. Refills 11, Maintenance, 10/31/20 12:56:00 EDT, [facility], [facility] Electronically, [facility] [id number], 187.6, cm, 10/19/20 9:25:00 EDT, Height, 101.4, kg, 08/27/20 1:59:00 EDT, Dry Weight Start Date: 11/22/20 Status: Ordered gabapentin 100 mg oral capsule 100 mg, 1, capsule, By Mouth, 3 times a day, # 90 capsule, Refills 11, Tot. Refills 11, Maintenance, 11/02/20 17:57:00 EDT, [facility] to [facility] Electron[facility], [facility] [...] need: 99 months Number to fax to: [phone], 01/06/21 13:10:00 E... Start Date: 01/06/21 Status: Ordered SEROquel 25 mg oral tablet 25 mg, 1, tablet, By Mouth, 2 times a day, # 60 tablet, Refills 3, Tot. Refills 3, Maintenance, 11/25/20 15:58:00 EDT, Route to Pharmacy Electronically, [facility]/pharmacy #[id number], Partial fill upon patient request if the [...] Refills, Maintenance, 11/22/20 8:13:00 EDT, [id number], 187.6, cm, 10/19/20 9:25:00 EDT, Height, 101.4, [...]
--- OUTSIDE RECORDS SUMMARY | 2023-02-03 22:26 | XMS_ITS | Continuity of Care Document ---
Author Name Unknown Organization [facility] Address [address] [place] [address]- Care Team Providers Care Antenna Design Engineer Name Role Phone Judie Keenan DO Primary Care Physician [phone] Encounter [facility] Date(s): 02/07/22 - 03/09/[address] [address] Attending Physician: Sangeetha Latif Admitting Physician: AdmtrSangeetha Referring Physician: Admtr, ArShazia Allergies, Adverse Reactions, Alerts No Known Allergies Immunizations Given and Recorded Vaccine Date Status Refusal Reason tetanus/diphtheria/pertussis, acel(Tdap) 09/13/19 Recorded Medications acetaminophen 325 mg oral capsule 2 capsule = 650 mg, By Mouth, Every 6 hours, PRN Pain , Moderate, # 90 capsule, 0 Refills, Maintenance, 01/21/22 20:50:00 EDT, Capsule, [facility]/pharmacy #[id number], Partial fill upon patient request if the prescription is for a schedule II opioid drug., 193, c... Start Date: 01/21/22 Status: Ordered amLODIPine 5 mg oral tablet 1 tablet, By Mouth, Daily, # 30 tablet, 11 Refills, [facility], 193, cm, 10/26/21 9:21:00 EDT,Height, 97.2, kg, 10/26/21 9:21:00 EDT, Dry Weight Start Date: 11/15/21 Status: Ordered baclofen 20 mg oral tablet 20 mg, 1, tablet, By Mouth, 4 times a day, # 120 tablet, Refills 5, Tot. Refills 5, Maintenance, 10/26/21 9:45:00 EDT, Route to Pharmacy Electronically, [facility]/pharmacy #[id number], 193, cm, 10/26/21 9:21:00 EDT, Height, [...] 0 Refills, Maintenance, 04/06/20 16:11:00 EST, Gel, [facility]/pharmacy #[id number], Partial fill upon patient [...] 60 tablet, 11 Refills, 02/07/22 11:13:00 EDT, [id number], 193, cm, 02/07/22 10:31:00 EDT, Height, 97.2, kg, 10/26/21 9:21:00 EDT, Dry Weight Start Date: 02/07/22 Status: Ordered folic acid 1 mg oral tablet 1, tablet, By Mouth, Daily, # 30 tablet, Refills 11, Tot. Refills 0, Maintenance, 11/22/20 8:13:00 EDT, Route to Pharmacy Electronically, [id number], 187.6, cm, 10/19/20 9:25:00 EDT, Height, 101.4, kg, 08/27/20 1:59:00 EDT, Dry Weight Start Date: 11/22/20 Status: Ordered gabapentin 300 mg oral capsule 1, capsule, By Mouth, 3 times a day, # 90 capsule, Refills 5, Maintenance, 02/22/22 9:42:00 EDT, Route to Pharmacy Electronically, [facility], 193, cm, 02/07/22 10:31:00 EDT, Height, 97.2, kg, 10/26/21 9:21:00 EDT, Dry Weight Start Date: 02/22/22 Status: Ordered ibuprofen 600 mg oral tablet 600 mg, 1, tablet, By Mouth, Every 8 hours, PRN, # 100 tablet, Refills 0, Tot. Refills 0, Maintenance, Pain , Moderate, 01/21/22 20:49:00 EDT, Route to Pharmacy Electronically, [facility]/pharmacy #[id number], Partial fill upon patient [...] Refills, Maintenance, 02/22/22 9:43:00 EDT, [facility], 193, cm, 02/07/22 10:31:00 EDT, Height, 97.2, kg, 10/26/21 9:21:00 EDT, Dry Weight Start Date: 02/22/22 Status: Ordered oxyCODONE 5 mg oral capsule 1 capsule = 5 mg, By Mouth, Every 6 hours, PRN as needed for pain, # 12 capsule, 0 Refills, Maintenance, 01/21/22 20:50:00 EDT, Capsule, [facility]/pharmacy #[id number], Partial fill upon patient [...] 03/15/21 22:43:00 EDT, Route to Pharmacy Electronically, [facility]/pharmacy #[id number], Partial fill upon patient [...] need: 99 months Number to fax to: [phone], 01/06/21 13:10:00 E... Start Date: 01/06/21 Status: Ordered scopolamine 1 mg/72 hr transdermal film, extended release 1 film, Topically, Every 72 hours, Apply to right mastoid bone, # 10 each, 1 Refills, Acute 07/13/22 10:00:00 EST, 07/12/21 16:55:00 EST, [facility]/pharmacy #[id number], Partial fill upon patient request if the prescription is for a schedule II opioid drug., 1 fi... Start Date: 07/12/21 Stop Date: 07/13/22 Status: Ordered scopolamine 1 mg/72 hr transdermal film, extended release 1 film, Topically, Every 72 hours, Apply to right mastoid bone, # 24 each, 1 Refills, Maintenance, 07/13/22 10:00:00 EST, [facility]/pharmacy #[id number], Partial fill upon patient request if the prescription is for a schedule II opioid drug., 1 film Topically Lucía... Start Date: 07/13/22 Status: Ordered tiZANidine 2 mg oral tablet See Instructions, 1 tablet by mouth twice a day, # 60 tablet, Refills 3, Tot. Refills 3, Maintenance, 12/13/21 16:11:00 EDT, Instructions Replace Required Details, Route to Pharmacy Electronically, [facility]/pharmacy #[id number], Partial fill upon patient [...] Refills, Maintenance, 11/22/20 8:13:00 EDT, [facility], 187.6, cm, 10/19/20 9:25:00 EDT, Height, 101.4, [...] Insomnia Confirmed Active N CP Care Management, Roller Mill Tender Carmen Elizabeth [phone] Confirmed Active Therapeutic drug monitoring Confirmed Active Spasticity Confirmed Active Tobacco dependence Confirmed Active Social History Social History Type Response Smoking Status 10 or more cigarette s (1/2 pack or more)/day in last 30 days entered on: 02/29/20 Sex Patient Care team information Personnel Name: Judie Keenan DO Address: Address: [address] [place] [id number]
--- OUTSIDE RECORDS SUMMARY | 2023-02-03 22:26 | XMS_ITS | Continuity of Care Document ---
Author Name Unknown Organization [facility] Address [address] [place] [address]- Care Team Providers Care Yoga Teacher Name Role Phone Judie Mills DO Primary Care Physician [phone] Encounter [facility] [place] Date(s): 10/25/20 - 11/24/[address] [address] Allergies, Adverse Reactions, Alerts Substance Reaction Severity Status NKA Active Medications amLODIPine 5 mg oral tablet 5 mg, 1, tablet, By Mouth, Daily, # 30 tablet, Refills 11, Tot. Refills 11, Maintenance, 10/31/20 12:56:00 EDT, Route to Pharmacy Electronically, [facility]/pharmacy #[id number], Partial fill upon patient requestif [...] 8:13:00 EDT, Route to Pharmacy Electronically, [facility] 87549, 187.6, cm, 10/19/20 9:25:00 EDT, Height, 101.4, kg, 08/27/20 1:59:00 EDT, Dry Weight Start Date: 11/22/20 Status: Ordered gabapentin 100 mg oral capsule 100 mg, 1, capsule, By Mouth, 3 times a day, # 90 capsule, Refills 11, Tot. Refills 11, Maintenance, 11/02/20 17:57:00 EDT, Route to Pharmacy Electronically, [facility]/pharmacy #[id number], Partial fill upon patient request if the [...] tablet, 11 Refills, Maintenance, 11/22/20 8:13:00 EDT, [facility] 39224, 187.6, cm, 10/19/20 9:25:00 EDT, Height, 101.4, [...]
--- OUTSIDE RECORDS SUMMARY | 2023-02-03 22:26 | XMS_ITS | Continuity of Care Document ---
Author Name Unknown Organization [facility] Address [address] [facility] [address] [place] [address]- Care Team Providers Care Asian Art Curator Name Role Phone Derek Tomas MD Primary Care Physician Encounter [facility] [place] Date(s): 07/04/22 - 09/26/22 [facility] [address] [place] [address]- Attending Physician: Terry Ryan MD Allergies, Adverse [...] Mouth, Daily, # 30 tablet, 11 Refills, [facility] 53847, 193, cm, 10/26/21 9:21:00 EDT,Height, 97.2, kg, 10/26/21 9:21:00 EDT, Dry Weight Start Date: 11/15/21 Status: Ordered baclofen 20 mg oral tablet 20 mg, 1, tablet, By Mouth, 4 times a day, # 120 tablet, Refills 5, Tot. Refills 5, Maintenance, 10/26/21 9:45:00 EDT, Route to Pharmacy Electronically, [facility]/pharmacy #[id number], 193, cm, 10/26/21 9:21:00 [...] Refills, Maintenance, 08/17/22 15:25:00 EDT, [facility], 193.04, cm, 07/23/22 14:07:00 EDT, Height, 99.6, kg, 06/06/22 18:00:00 EST, Dry Weight Start Date: 08/17/22 Status: Ordered Eliquis 5 mg oral tablet 1 tablet, By Mouth, 2 times a day, # 60 tablet, 11 Refills, 02/07/22 11:13:00 EDT, [facility]/pharmacy #1, 193, cm, 02/07/22 10:31:00 EDT, Height, 97.2, kg, 10/26/21 9:21:00 EDT, Dry Weight Start Date: 02/07/22 Status: Ordered ferrous sulfate 325 mg oral tablet TAKE 1 TABLET BY MOUTH EVERY DAY NEEDED Start Date: 09/12/22 Status: Ordered FLUoxetine 20 mg oral capsule 1, capsule, By Mouth, Daily, # 30 capsule, Refills 14, Maintenance, 08/13/22 15:55:00 EDT, Route toPharmacy Electronically, [facility], 193.04, cm, 07/23/22 14:07:00 EDT, Height, 99.6, [...] 02/22/22 9:42:00 EDT, Route to Pharmacy Electronically, [facility] 59904, 193, cm, 02/07/22 10:31:00 EDT, Height, 97.2, [...] capsule, 5 Refills, Maintenance, 08/13/22 15:28:00 EDT, [facility]/pharmacy #[id number], 193.04, cm, 07/23/22 14:07:00 EDT, Height, 99.6, kg, 06/06/22 18:00:00 EST, Dry Weight Start Date: 08/13/22 Status: Ordered oxycodone 15 mg oral tablet, extended release 1 tablet = 15 mg, By Mouth, Every 12 hours, # 60 tablet, 0 Refills, Maintenance, 09/07/22 10:23:00 EDT, ER Tablet, [facility]/pharmacy #[id number], Partial fill upon patient [...] need: 99 months Number to fax to: [phone], 01/06/21 13:10:00 E... Start Date: 01/06/21 Status: Ordered scopolamine 1 mg/72 hr transdermal film, extended release See Instructions, APPLY 1 PATCH TO RIGHT MASTOID BONE EVERY 72 HOURS, # 10 each, 3 Refills, Maintenance, 06/29/22 11:46:00 EST, [facility]/pharmacy #[id number], APPLY 1 PATCH TO RIGHT MASTOID BONE EVERY 72 HOURS,193.04, cm, 06/29/22 11:17:00 EST, Height, 99.6, kg... Start Date: 06/29/22 Status: Ordered scopolamine 1 mg/72 hr transdermal film, extended release 1 film, Topically, Every 72 hours, Apply to right mastoid bone, # 24 each, 1 Refills, Maintenance, 07/13/22 10:00:00 EST, [facility]/pharmacy #[id number], Partial fill upon patient [...] 05/20/22 19:50:00 EST, Route to Pharmacy Electronically, [facility]/pharmacy #[id number], Partial fill upon patient request if the [...] apex Confirmed Active N CP Care Management, Metal Machinist Carmen Elizabeth [phone] Confirmed Active Therapeutic drug monitoring Confirmed Active Peripheral neuropathy Confirmed Active Spasticity Confirmed Active Tobacco dependence Confirmed Active Social History Social History Type Response Smoking Status 5-9 cigarettes (betw een 1/4 to 1/2 pack)/day in last 30 days entered on: 05/16/22 Sex Patient Care team information Care Team Personnel Name: Areli Pittman RN Position: [facility] ED RN W/OE and Tasks Member Role: Primary Care Nurse Name: Bettye Carney Position: S RN Member Role: Primary Care Nurse Name: Derek Tomas MD Position: [facility] Resident Member Role: PCP Address: Address: [address] [place] [address]- Name: Ally Boyd RN Position: S RN Member Role: Primary Care Nurse Name: Axel Savage RN Position: S RN Member Role: Primary Care Nurse Name: Filemon King RN Position: S RN Member Role: Primary Care Nurse Name: Glenys Fox RN Position: S RN Member Role: Primary Care Nurse Care Team Related Persons Name: BEVERLY REYNAGA Address: [address] [place] [address] Name: AISLINN DE LA PAZ Address: [address] [place] [address]
--- OUTSIDE RECORDS SUMMARY | 2023-02-03 22:26 | XMS_ITS | Continuity of Care Document ---
Author Name Unknown Organization [facility] Address [address] [place] [address]- Care Team Providers Care Professor Of Medicine Name Role Phone Judie Mills DO Primary Care Physician [phone] Encounter [facility] Date(s): 02/02/21 - 03/04/[address] [address] Attending Physician: Not on Staff, Attending MD Allergies, Adverse Reactions, Alerts Substance Reaction Severity Status NKA Active Immunizations Given and Recorded Vaccine Date Status Refusal Reason tetanus/diphtheria/pertussis, acel(Tdap) 09/13/19 Recorded Medications amLODIPine 5 mg oral tablet 5 mg, 1, tablet, By Mouth, Daily, # 30 tablet, Refills 11, Tot. Refills 11, Maintenance, 10/31/20 12:56:00 EDT, Route to Pharmacy Electronically, [facility]/pharmacy #[id number], Partial fill upon [...] EDT, Route to Pharmacy Electronically, [facility] ST[facility] 54843, 187.6, cm, 10/19/20 9:25:00 EDT, Height, 101.4, kg, 08/27/20 1:59:00 EDT, Dry Weight Start Date: 11/22/20 Status: Ordered gabapentin 100 mg oral capsule 100 mg, 1, capsule, By Mouth, 3 times a day, # 90 capsule, Refills 11, Tot. Refills 11, Maintenance, 11/02/20 17:57:00 EDT, Route to Pharmacy Electronically, [facility]/pharmacy #[id number], Partial fill upon patient request if the prescription is for a schedule I... Start Date: 11/02/20 Status: Ordered metoclopramide 10 mg oral tablet, disintegrating 1 tablet = 10 mg, By Mouth, Every 8 hours, PRN Nausea & Vomiting, # 28 tablet, 0 Refills, Maintenance, 02/24/21 17:09:00 EDT, DIS Tablet, [facility]/pharmacy #[id number], Partial fill upon [...] need: 99 months Number to fax to: [phone], 01/06/21 13:10:00 E... Start Date: 01/06/21 Status: Ordered SEROquel 25 mg oral tablet 25 mg, 1, tablet, By Mouth, 2 times a day, # 60 tablet, Refills 3, Tot. Refills 3, Maintenance, 11/25/20 15:58:00 EDT, Route to Pharmacy Electronically, [facility]/pharmacy #[id number], Partial fill upon patient request if the [...] Refills, Maintenance, 11/22/20 8:13:00 EDT, [facility], 187.6, cm, 10/19/20 9:25:00 EDT, Height, 101.4, [...]
--- OUTSIDE RECORDS SUMMARY | 2023-02-03 22:26 | XMS_ITS | Continuity of Care Document ---
Author Name Unknown Organization [facility] Address [address] [place] [address]- Care Team Providers Care Service Establishment Attendant Name Role Phone Genoveva PAGAN, Derek Primary Care Physician Encounter [facility] Date(s): 10/15/22 - 11/14/[address] [address]- Allergies, Adverse Reactions, Alerts No Known Allergies [...] Mouth, Daily, # 30 tablet, 11 Refills, [facility] 20285, 193, cm, 10/26/21 9:21:00 EDT,Height, 97.2, kg, 10/26/21 9:21:00 EDT, Dry Weight Start Date: 11/15/21 Status: Ordered baclofen 20 mg oral tablet 20 mg, 1, tablet, By Mouth, 4 times a day, # 120 tablet, Refills 5, Tot. Refills 5, Maintenance, 10/26/21 9:45:00 EDT, Route to Pharmacy Electronically, [facility]/pharmacy #[id number], 193, cm, 10/26/21 9:21:00 [...] capsule, 5 Refills, Maintenance, 08/17/22 15:25:00 EDT, [facility] ST[facility] 37445, 193.04, cm, 07/23/22 14:07:00 EDT, Height, 99.6, kg, 06/06/22 18:00:00 EST, Dry Weight Start Date: 08/17/22 Status: Ordered Eliquis 5 mg oral tablet 1 tablet, By Mouth, 2 times a day, # 60 tablet, 11 Refills, 02/07/22 11:13:00 EDT, [facility]/pharmacy #[id number], 193, cm, 02/07/22 10:31:00 EDT, Height, 97.2, kg, 10/26/21 9:21:00 EDT, Dry Weight Start Date: 02/07/22 Status: Ordered ferrous sulfate 325 mg oral tablet TAKE 1 TABLET BY MOUTH EVERY DAY NEEDED Start Date: 09/12/22 Status: Ordered FLUoxetine 20 mg oral capsule 1, capsule, By Mouth, Daily, # 30 capsule, Refills 14, Maintenance, 08/13/22 15:55:00 EDT, Route toPharmacy Electronically, [facility] 19637, 193.04, cm, 07/23/22 14:07:00 EDT, Height, 99.6, [...] 02/22/22 9:42:00 EDT, Route to Pharmacy Electronically, [facility] 44381, 193, cm, 02/07/22 10:31:00 EDT, Height, 97.2, [...] capsule, 5 Refills, Maintenance, 08/13/22 15:28:00 EDT, [facility]/pharmacy #[id number], 193.04, cm, 07/23/22 14:07:00 EDT, Height, 99.6, kg, 06/06/22 18:00:00 EST, Dry Weight Start Date: 08/13/22 Status: Ordered oxycodone 15 mg oral tablet, extended release 1 tablet = 15 mg, By Mouth, Every 12 hours, # 60 tablet, 0 Refills, Maintenance, 10/16/22 16:53:00 EDT, ER Tablet, [facility]/pharmacy #1130, Partial fill upon patient [...] need: 99 months Number to fax to: [phone], 01/06/21 13:10:00 E... Start Date: 01/06/21 Status: Ordered scopolamine 1 mg/72 hr transdermal film, extended release See Instructions, APPLY 1 PATCH TO RIGHT MASTOID BONE EVERY 72 HOURS, # 10 each, 3 Refills, Maintenance, 06/29/22 11:46:00 EST, [facility]/pharmacy #[id number], APPLY 1 PATCH TO RIGHT MASTOID BONE EVERY 72 HOURS,193.04, cm, 06/29/22 11:17:00 EST, Height, 99.6, kg... Start Date: 06/29/22 Status: Ordered scopolamine 1 mg/72 hr transdermal film, extended release 1 film, Topically, Every 72 hours, Apply to right mastoid bone, # 24 each, 1 Refills, Maintenance, 07/13/22 10:00:00 EST, [facility]/pharmacy #[id number], Partial fill upon [...] 05/20/22 19:50:00 EST, Route to Pharmacy Electronically, [facility]/pharmacy #2300, Partial fill upon patient request if the [...] apex Confirmed Active N CP Care Management, [employer] Special[employer] Cook Carmen Elizabeth [phone] Confirmed Active Therapeutic drug monitoring Confirmed Active Peripheral neuropathy Confirmed Active Spasticity Confirmed Active Tobacco dependence Confirmed Active Social History Social History Type Response Smoking Status 5-9 cigarettes (betw een 1/4 to 1/2 pack)/day in last 30 days entered on: 05/16/22 Sex Patient Care team information Care Team Personnel Name: Areil Pittman RN Position: [facility] ED RN W/OE and Tasks Member Role: Primary Care Nurse Name: Derek Tomas MD Position: [facility] Resident Member Role: PCP Address: Address: [address] [place] [address]- Name: Ally Boyd RN Position: [facility] RN Member Role: Primary Care Nurse Name: Axel Savage RN Position: S RN Member Role: Primary Care Nurse Name: Filemon King RN Position: S RN Member Role: Primary Care Nurse Name: Glenys Fox RN Position: [facility] RN Member Role: Primary Care Nurse Care Team Related Persons Name: BEVERLY REYNAGA Address: [address] [place] [address] Name: AISLINN DE LA PAZ Address: [address] [place] [address]
--- OUTSIDE RECORDS SUMMARY | 2023-02-03 22:26 | XMS_ITS | Continuity of Care Document ---
Author Name Unknown Organization [facility] Address [address] [place] [address]- Care Team Providers Care Machine Accountant Name Role Phone Derek Tomas MD Primary Care Physician [place] [facility] [place] Date(s): 05/03/22 - 06/08/[address] [address] Attending Physician: Alison Garay NP Admitting Physician: Alison Garay NP Referring Physician: Alison Garay NP Allergies, Adverse Reactions, Alerts No Known Allergies Immunizations Given and Recorded Vaccine Date Status Refusal Reason influenza virus vaccine, inactivated 05/18/22 Give n tetanus/diphtheria/pertussis, acel(Tdap) 09/13/19 Recorded Medications acitretin 10 mg oral capsule TAKE 1 CAPSULE EVERY OTHER DAY FOR NEXT 2 WEEKS THEN 1 CAPSULE DAILY Start Date: 05/17/22 Status: Ordered amLODIPine 5 mg oral tablet 1 tablet, By Mouth, Daily, # 30 tablet, 11 Refills, [facility], 193, cm, 10/26/21 9:21:00 EDT,Height, 97.2, kg, [...] 06/21/22 12:43:00 EST, 06/07/22 12:43:00 EST, Capsule, [facility], Partial fill upon patient request if the prescription is for a schedule II opioi... Start Date: 06/07/22 Stop Date: 06/21/22 Status: Ordered Eliquis 5 mg oral tablet 1 tablet, By Mouth, 2 times a day, # 60 tablet, 11 Refills, 02/07/22 11:13:00 EDT, [facility]/pharmacy #[id number], 193, cm, 02/07/22 10:31:00 [...] 02/22/22 9:42:00 EDT, Route to Pharmacy Electronically, [facility], 193, cm, 02/07/22 10:31:00 EDT, Height, 97.2, kg, 10/26/21 9:21:00 EDT, Dry Weight Start Date: 02/22/22 Status: Ordered omeprazole 40 mg oral enteric coated capsule 1 capsule, By Mouth, Daily, # 30 capsule, 5 Refills, Maintenance, 02/22/22 9:43:00 EDT, [facility] STORE 91856, 193, cm, 02/07/22 10:31:00 EDT, Height, 97.2, kg, 10/26/21 9:21:00 EDT, Dry Weight Start Date: 02/22/22 Status: Ordered Right ankle & foot orthosis Right ankle & foot orthosis, See Instructions, # 1 each, Refills 1, Tot. Refills 1, Maintenance, Please dispense 1 right ankle and foot othosis Dx: R29.898, R26.81, M25.373 Length of need: 99 months Number to fax to: [phone], 01/06/21 13:10:00 E... Start Date: 01/06/21 Status: [...] Replace Required Details, Route to Pharmacy Electronically, [facility]/pharmacy #[id number], Partial fill upon patient request... Start Date: 06/08/22 Status: Ordered Tylenol 325 mg oral tablet 650 mg, 2, tablet, By Mouth, Every 4 hours, PRN, # 120 tablet, Refills 0, Tot. Refills 0, Acute 05/21/23 19:50:00 EST, for pain, 05/20/22 19:50:00 EST, Route to Pharmacy Electronically, [facility]/pharmacy #[id number], Partial fill upon patient request if the [...] apex Confirmed Active [facility] CP Care Management, Nurse Epidemiologist Carmen Elizabeth [phone] Confirmed Active Therapeutic drug monitoring Confirmed Active Peripheral neuropathy Confirmed Active Spasticity Confirmed Active Tobacco dependence Confirmed Active Social History Social History Type Response Smoking Status 5-9 cigarettes (betw een 1/4 to 1/2 pack)/day in last 30 days entered on: 05/16/22 Sex Patient Care team information Care Team Personnel Name: Areli Pittman RN Position: [facility] ED RN W/OE and Tasks Member Role: Primary Care Nurse Name: Bettye Carney Position: [facility] RN Member Role: Primary Care Nurse Name: Derek Tomas MD Position: [facility] Resident Member Role: PCP Address: Address: [address] [place] [address]- Name: Ally Boyd RN Position: [facility] RN Member Role: Primary Care Nurse Name: Axel Savage RN Position: [facility] RN Member Role: Primary Care Nurse Name: Filemon King RN Position: [facility] RN Member Role: Primary Care Nurse Name: Glenys Fox RN Position: [facility] RN Member Role: Primary Care Nurse Care Team Related Persons Name: BEVERLY REYNAGA Address: home [address] [place] [id number] Name: AISLINN DE LA PAZ Address: [address] [place] [address]
--- OUTSIDE RECORDS SUMMARY | 2023-02-03 22:26 | XMS_ITS | Continuity of Care Document ---
Author Name Unknown Organization [facility] Address [address] [place] [address] [address] [place] [address]- Care Team Providers Care Parenting Skills Instructor Name Role Phone Judie Mills DO Primary Care Physician [place] [facility] [place]s): 05/02/20 - 05/09/20 [facility] [address] [place] [address]- Encounter Diagnosis Hidradenitis suppurativa(Discharge Diagnosis) - 05/02/20 Attending Physician: Delon Rincon Referring Physician: Judie [...] 0 Refills, Maintenance, 02/29/20 15:56:00 EDT, [id number], Disp[facility] 2 bottles... Start Date: 02/29/20 Status: Ordered Problem List Condition Effective Dates Status Health Status Inform ant Hidradenitis suppurativa(Confirmed) Active Wound of buttock(Confirmed) Active Tobacco dependence(Confirmed) Active Diagnosis Diagnosis Type Effective Dates Health Status Clinical Service Informant Hidradenitis suppurativa Discharge Diagnosis 05/02/20 Social History Social History Type Response Smoking Status 10 or more cigarette s (1/2 pack or more)/day in last 30 days entered on: 02/29/20 Sex
--- OUTSIDE RECORDS SUMMARY | 2023-02-03 22:26 | XMS_ITS | Continuity of Care Document ---
Author Name Unknown Organization [facility] Address [address] [place] [address]- Care Team Providers Care Health Technician Name Role Phone Judie Mills DO Primary Care Physician [place] [facility] [place] 02/18/[place] - 03/26/[address] [address] Attending Physician: Not on Staff, Attending MD Allergies, Adverse Reactions, Alerts Substance Reaction Severity Status NKA Active Immunizations Given and Recorded Vaccine Date Status Refusal Reason tetanus/diphtheria/pertussis, acel(Tdap) 09/13/19 Recorded Medications amLODIPine 5 mg oral tablet 5 mg, 1, tablet, By Mouth, Daily, # 30 tablet, Refills 11, Tot. Refills 11, Maintenance, 10/31/20 12:56:00 EDT, Route to Pharmacy Electronically, [facility]/pharmacy #[id number], Partial [...] 11/22/20 8:13:00 EDT, Route to Pharmacy Electronically, [facility] STORE 69982, 187.6, cm, 10/19/20 9:25:00 EDT, Height, 101.4, kg, 08/27/20 1:59:00 EDT, Dry Weight Start Date: 11/22/20 Status: Ordered gabapentin 100 mg oral capsule 100 mg, 1, capsule, By Mouth, 3 times a day, # 90 capsule, Refills 11, Tot. Refills 11, Maintenance, 11/02/20 17:57:00 EDT, Route to Pharmacy Electronically, [facility]/pharmacy #[id number], Partial [...] 5 Refills, Maintenance, 03/13/21 13:24:00 EDT, ECCapsule, [facility]/pharmacy #[id number], Partial [...] Pharmacy Electronically, [facility]/pharmacy #[id number], Partial [...] need: 99 months Number to fax to: [phone], 01/06/21 13:10:00 E... Start Date: 01/06/21 Status: Ordered SEROquel 25 mg oral tablet 25 mg, 1, tablet, By Mouth, 2 times a day, # 60 tablet, Refills 3, Tot. Refills 3, Maintenance, 11/25/20 15:58:00 EDT, Route to Pharmacy Electronically, [facility]/pharmacy #[id number], Partial [...] Refills, Maintenance, 11/22/20 8:13:00 EDT, [facility], 187.6, cm, 10/19/20 9:25:00 EDT, Height, 101.4, [...]
--- OUTSIDE RECORDS SUMMARY | 2023-02-03 22:26 | XMS_ITS | Continuity of Care Document ---
Author Name Unknown Organization [facility] Address [address] [place] [address]- Care Team Providers Care Nurse Practitioner Home Assessments Name Role Phone Judie Mills DO Primary Care Physician [place] [facility] [place] - 05/06/[address] [address]- Attending Physician: Sangeetha Latif Admitting Physician: Admtr, [...]
--- OUTSIDE RECORDS SUMMARY | 2023-02-03 22:26 | XMS_ITS | Continuity of Care Document ---
Author Name Unknown Organization [facility] Address [address] [place] [address]- Care Team Providers Care Ski Lift Operator Name Role Phone Genoveva PAGAN, Derek Primary Care Physician Encounter [facility] [place] Date(s): 08/07/22 - 09/06/[address] [address]- Allergies, Adverse Reactions, Alerts No Known Allergies [...] Mouth, Daily, # 30 tablet, 11 Refills, [facility] STORE 53917, 193, cm, 10/26/21 9:21:00 EDT,Height, 97.2, kg, 10/26/21 9:21:00 EDT, Dry Weight Start Date: 11/15/21 Status: Ordered baclofen 20 mg oral tablet 20 mg, 1, tablet, By Mouth, 4 times a day, # 120 tablet, Refills 5, Tot. Refills 5, Maintenance, 10/26/21 9:45:00 EDT, Route to Pharmacy Electronically, [facility]/pharmacy #[id number], 193, cm, 10/26/21 9:21:00 EDT, [...] Refills, Maintenance, 08/17/22 15:25:00 EDT, [facility], 193.04, cm, 07/23/22 14:07:00 EDT, Height, 99.6, kg, 06/06/22 18:00:00 EST, Dry Weight Start Date: 08/17/22 Status: Ordered Eliquis 5 mg oral tablet 1 tablet, By Mouth, 2 times a day, # 60 tablet, 11 Refills, 02/07/22 11:13:00 EDT, [facility]/pharmacy #[id number], 193, cm, 02/07/22 10:31:00 EDT, Height, 97.2, kg, 10/26/21 9:21:00 EDT, Dry Weight Start Date: 02/07/22 Status: Ordered FLUoxetine 20 mg oral capsule 1, capsule, By Mouth, Daily, # 30 capsule, Refills 14, Maintenance, 08/13/22 15:55:00 EDT, Route toPharmacy Electronically, [facility] ST[facility] 19250, 193.04, cm, 07/23/22 14:07:00 EDT, Height, 99.6, kg, 06/06/22 18:00:00 EST, Dry Weight Start Date: 08/13/22 Status: Ordered gabapentin 300 mg oral capsule 1, capsule, By Mouth, 3 times a day, # 90 capsule, Refills 5, Maintenance, 02/22/22 9:42:00 EDT, Route to Pharmacy Electronically, [facility] STORE 68011, 193, cm, 02/07/22 10:31:00 EDT, Height, 97.2, [...] capsule, 5 Refills, Maintenance, 08/13/22 15:28:00 EDT, [facility]/pharmacy #[id number], 193.04, cm, 07/23/22 14:07:00 EDT, Height, 99.6, kg, 06/06/22 18:00:00 EST, Dry Weight Start Date: 08/13/22 Status: Ordered Right ankle & foot orthosis Right ankle & foot orthosis, See Instructions, # 1 each, Refills 1, Tot. Refills 1, Maintenance, Please dispense 1 right ankle and foot othosis Dx: R29.898, R26.81, M25.373 Length of need: 99 months Number to fax to: [phone], 01/06/21 13:10:00 E... Start Date: 01/06/21 Status: Ordered scopolamine 1 mg/72 hr transdermal film, extended release See Instructions, APPLY 1 PATCH TO RIGHT MASTOID BONE EVERY 72 HOURS, # 10 each, 3 Refills, Maintenance, 06/29/22 11:46:00 EST, [facility]/pharmacy #[id number], APPLY 1 PATCH TO RIGHT MASTOID BONE EVERY 72 HOURS,193.04, cm, 06/29/22 11:17:00 EST, Height, 99.6, kg... Start Date: 06/29/22 Status: Ordered scopolamine 1 mg/72 hr transdermal film, extended release 1 film, Topically, Every 72 hours, Apply to right mastoid bone, # 24 each, 1 Refills, Maintenance, 07/13/22 10:00:00 EST, [facility]/pharmacy [...] Replace Required Details, Route to Pharmacy Electronically, [facility]/pharmacy #[id number], 193.04, cm, 07/04/22... Start Date: [...] 05/20/22 19:50:00 EST, Route to Pharmacy Electronically, [facility]/pharmacy #[id number], Partial fill upon patient request if the [...] apex Confirmed Active [facility] CP Care Management, Manager Emergency Carmen Elizabeth [phone] Confirmed Active Therapeutic drug monitoring Confirmed Active Peripheral neuropathy Confirmed Active Spasticity Confirmed Active Tobacco dependence Confirmed Active Social History Social History Type Response Smoking Status 5-9 cigarettes (betw een 1/4 to 1/2 pack)/day in last 30 days entered on: 05/16/22 Sex Patient Care team information Care Team Personnel Name: Areli Pittman RN Position: [facility] ED RN W/OE and Tasks Member Role: Primary Care Nurse Name: Bettye Carney Position: [facility] RN Member Role: Primary Care Nurse Name: Derek Tomas MD Position: [facility] Resident Member Role: PCP Address: Address: [address] [place] [address]- Name: Ally Boyd RN Position: [facility] RN Member Role: Primary Care Nurse Name: Axel Savage RN Position: [facility] RN Member Role: Primary Care Nurse Name: Filemon King RN Position: [facility] RN Member Role: Primary Care Nurse Name: Glenys Fox RN Position: [facility] RN Member Role: Primary Care Nurse Care Team Related Persons Name: BEVERLY REYNAGA Address: home [address] [place] [address] Name: AISLINN DE LA PAZ Address: home [address] [place] [address]
--- OUTSIDE RECORDS SUMMARY | 2023-02-03 22:26 | XMS_ITS | Continuity of Care Document ---
Author Name Unknown Organization [facility] Address [address] [place] [address]- Care Team Providers Care School Of Nursing Director Name Role Phone Judie Mills DO Primary Care Physician [phone] Encounter [facility] [id number] Date(s): 11/28/20 - 04/12/[address] [address] Discharge Disposition: A-D/C Home Attending Physician: Mariza Mao MD Admitting Physician: [...] 10/31/20 12:56:00 EDT, Route to Pharmacy Electronically, [facility]/pharmacy #[id number], Partial fill upon patient [...] 0 Refills, Maintenance, 11/25/20 16:11:00 EST, Gel, [facility]/pharmacy #[id number], Partial fill upon patient [...] 11/22/20 8:13:00 EDT, Route to Pharmacy Electronically, [facility] STORE 06322, 187.6, cm, 10/19/20 9:25:00 EDT, Height, 101.4, kg, 08/27/20 1:59:00 EDT, Dry Weight Start Date: 11/22/20 Status: Ordered gabapentin 100 mg oral capsule 100 mg, 1, capsule, By Mouth, 2 times a day, # 60 capsule, Refills 11, Tot. Refills 11, Maintenance, 04/03/21 14:15:00 EST, Route to Pharmacy Electronically, [facility]/pharmacy #[id number], note dose change, 193, cm, 03/15/21 16:10:00 EDT, Height, 104.5, kg, 10/0... Start Date: 04/03/21 Stop Date: 03/29/22 Status: Ordered gabapentin 300 mg oral capsule 300 mg, 1, capsule, By Mouth, Daily at bedtime, # 30 capsule, Refills 3, Tot. Refills 3, Maintenance, 04/03/21 14:16:00 EST, Route to Pharmacy Electronically, [facility]/pharmacy #[id number], Note bedtime dose change, 193, cm, 03/15/21 16:10:00 EDT, Height, 104.5,... Start Date: 04/03/21 Stop Date: 08/01/21 Status: Ordered metoclopramide 10 mg oral tablet, disintegrating 1 tablet = 10 mg, By Mouth, Every 8 hours, PRN Nausea & Vomiting, # 28 tablet, 0 Refills, Maintenance, 02/24/21 17:09:00 EDT, DIS Tablet, [facility]/pharmacy #[id number], Partial fill upon patient [...] 5 Refills, Maintenance, 03/13/21 13:24:00 EDT, ECCapsule, [facility]/pharmacy #[id number], Partial fill upon patient [...] 03/15/21 22:43:00 EDT, Route to Pharmacy Electronically, [facility]/pharmacy #[id number], Partial fill upon patient [...] need: 99 months Number to fax to: [phone], 01/06/21 13:10:00 E... Start Date: 01/06/21 Status: [...] tablet, 11 Refills, Maintenance, 11/22/20 8:13:00 EDT, [facility] ST[facility] 80464, 187.6, cm, 10/19/20 9:25:00 EDT, Height, 101.4, [...]
--- OUTSIDE RECORDS SUMMARY | 2023-02-03 22:26 | XMS_ITS | Continuity of Care Document ---
Author Name Unknown Organization [facility] Address [address] [place] [address]- Care Team Providers Care Audience Development Manager Name Role Phone Genoveva PAGAN, Derek Primary Care Physician [place] [facility] [place] - 04/11/[address] [address]- Allergies, Adverse Reactions, Alerts No Known Allergies Immunizations Given and Recorded Vaccine Date Status Refusal Reason tetanus/diphtheria/pertussis, acel(Tdap) 09/13/19 Recorded Medications acetaminophen 325 mg oral capsule 2 capsule = 650 mg, By Mouth, Every 6 hours, PRN Pain , Moderate, # 90 capsule, 0 Refills, Maintenance, 01/21/22 20:50:00 EDT, Capsule, [facility]/pharmacy #[id number], Partial fill upon patient request if the prescription is for a schedule II opioid drug., 193, c... Start Date: 01/21/22 Status: Ordered amLODIPine 5 mg oral tablet 1 tablet, By Mouth, Daily, # 30 tablet, 11 Refills, [facility], 193, cm, 10/26/21 9:21:00 EDT,Height, 97.2, kg, 10/26/21 9:21:00 EDT, Dry Weight Start Date: 11/15/21 Status: Ordered baclofen 20 mg oral tablet 20 mg, 1, tablet, By Mouth, 4 times a day, # 120 tablet, Refills 5, Tot. Refills 5, Maintenance, 10/26/21 9:45:00 EDT, Route to Pharmacy Electronically, [facility]/pharmacy #207, 193, cm, 10/26/21 9:21:00 EDT, [...] 0 Refills, Maintenance, 04/06/20 16:11:00 EST, Gel, [facility]/pharmacy #[id number], Partial fill upon patient request, [...] 60 tablet, 11 Refills, 02/07/22 11:13:00 EDT, [facility]/pharmacy #[id number], 193, cm, 02/07/22 10:31:00 EDT, Height, 97.2, kg, 10/26/21 9:21:00 EDT, Dry Weight Start Date: 02/07/22 Status: Ordered folic acid 1 mg oral tablet 1, tablet, By Mouth, Daily, # 30 tablet, Refills 11, Tot. Refills 0, Maintenance, 11/22/20 8:13:00 EDT, Route to Pharmacy Electronically, [facility] STORE 85520, 187.6, cm, 10/19/20 9:25:00 EDT, Height, 101.4, kg, 08/27/20 1:59:00 EDT, Dry Weight Start Date: 11/22/20 Status: Ordered gabapentin 300 mg oral capsule 1, capsule, By Mouth, 3 times a day, # 90 capsule, Refills 5, Maintenance, 02/22/22 9:42:00 EDT, Route to Pharmacy Electronically, [facility] STORE 77931, 193, cm, 02/07/22 10:31:00 EDT, Height, 97.2, kg, 10/26/21 9:21:00 EDT, Dry Weight Start Date: 02/22/22 Status: Ordered ibuprofen 600 mg oral tablet 600 mg, 1, tablet, By Mouth, Every 8 hours, PRN, # 100 tablet, Refills 0, Tot. Refills 0, Maintenance, Pain , Moderate, 01/21/22 20:49:00 EDT, Route to Pharmacy Electronically, [facility] [...] Refills, Maintenance, 02/24/21 17:09:00 EDT, DIS Tablet, [facility]/pharmacy #[id number], Partial [...] Refills, Maintenance, 02/22/22 9:43:00 EDT, [facility], 193, cm, 02/07/22 10:31:00 EDT, Height, 97.2, kg, 10/26/21 9:21:00 EDT, Dry Weight Start Date: 02/22/22 Status: Ordered oxyCODONE 5 mg oral capsule 1 capsule = 5 mg, By Mouth, Every 6 hours, PRN as needed for pain, # 12 capsule, 0 Refills, Maintenance, 01/21/22 20:50:00 EDT, Capsule, [facility]/pharmacy #[id number], Partial fill [...] 03/15/21 22:43:00 EDT, Route to Pharmacy Electronically, [facility] [...] need: 99 months Number to fax to: [phone], 01/06/21 13:10:00 E... Start Date: 01/06/21 Status: Ordered scopolamine 1 mg/72 hr transdermal film, extended release 1 film, Topically, Every 72 hours, Apply to right mastoid bone, # 10 each, 1 Refills, Acute 07/13/22 10:00:00 EST, 07/12/21 16:55:00 EST, [facility]/pharmacy #[id number], Partial fill upon patient request if the prescription is for a schedule II opioid drug., 1 fi... Start Date: 07/12/21 Stop Date: 07/13/22 Status: Ordered scopolamine 1 mg/72 hr transdermal film, extended release 1 film, Topically, Every 72 hours, Apply to right mastoid bone, # 24 each, 1 Refills, Maintenance, 07/13/22 10:00:00 EST, [facility]/pharmacy #[id number], Partial fill upon patient request if the prescription is for a schedule II opioid drug., 1 film Topically Lucía... Start Date: 07/13/22 Status: Ordered tiZANidine 2 mg oral tablet See Instructions, 1 tablet by mouth twice a day, # 60 tablet, Refills 3, Tot. Refills 3, Maintenance, 12/13/21 16:11:00 EDT, Instructions Replace Required Details, Route to Pharmacy Electronically, [facility]/pharmacy #[id number], Partial fill upon patient request... [...] tablet, 11 Refills, Maintenance, 11/22/20 8:13:00 EDT, [facility] STORE 33337, 187.6, cm, 10/19/20 9:25:00 EDT, Height, 101.4, [...] Insomnia Confirmed Active N CP Care Management, Air Carrier Operations Inspector Carmen Elizabeth [phone] Confirmed Active Therapeutic drug monitoring Confirmed Active Spasticity Confirmed Active Tobacco dependence Confirmed Active Social History Social History Type Response Smoking Status 10 or more cigarette s (1/2 pack or more)/day in last 30 days entered on: 02/29/20 Sex Patient Care team information Care Team Personnel Name: Bettye Carney Position: [facility] RN Member Role: Primary Care Nurse Name: Derek Tomas MD Position: [facility] Resident Member Role: PCP Address: Address: [address] [place] [address] Name: Ally Boyd RN Position: [facility] RN Member Role: Primary Care Nurse Name: Areli Whitaker RN Position: [facility] ED RN W/OE and Tasks Member Role: Primary Care Nurse Name: Axel Savage RN Position: [facility] RN Member Role: Primary Care Nurse Name: Filemon King RN Position: [facility] RN Member Role: Primary Care Nurse Care Team Related Persons Name: JUHI BEVERLY Address: [address] [address] Name: AISLINN DE LA PAZ Address: [address] [address]
--- OUTSIDE RECORDS SUMMARY | 2023-02-03 22:26 | XMS_ITS | Continuity of Care Document ---
Author Name Unknown Organization [facility] Address [address] [place] [address]- Care Team Providers Care Dowel Setting Machine Operator Name Role Phone Genoveva PAGAN, Derek Primary Care Physician [place] [facility] [place] 12/24/22 - 01/23/[address] [address]- Allergies, Adverse Reactions, Alerts No Known Allergies [...] Stop 12/08/23 11:18:00 EDT, 12/13/22 11:18:00 EDT, [facility], 193.04, cm, 12/13/22 10:25:00 EDT, Height, 99.6, kg, 06/06/22 18:00:00 EST, Dry Weight Start Date: 12/13/22 Stop Date: 12/08/23 Status: Ordered baclofen 20 mg oral tablet 20 mg, 1, tablet, By Mouth, 4 times a day, # 120 tablet, Refills 5, Tot. Refills 5, Maintenance, 10/26/21 9:45:00 EDT, Route to Pharmacy Electronically, [facility]/pharmacy #[id number], 193, cm, 10/26/21 9:21:00 [...] hidradenitis L73.2 FunctionalIncontinence R39.81 Please fax to [facility]. Start Date: 11/01/22 Status: Ordered duloxetine 30 mg oral enteric coated capsule 1 capsule, By Mouth, Daily, # 30 capsule, 5 Refills, Maintenance, 08/17/22 15:25:00 EDT, [facility] STORE 05160, 193.04, cm, 07/23/22 14:07:00 EDT, Height, 99.6, kg, 06/06/22 18:00:00 EST, Dry Weight Start Date: 08/17/22 Status: Ordered Eliquis 5 mg oral tablet 1 tablet, By Mouth, 2 times a day, # 60 tablet, 11 Refills, 02/07/22 11:13:00 EDT, [facility]/pharmacy #[id number], 193, cm, 02/07/22 10:31:00 EDT, Height, 97.2, kg, 10/26/21 9:21:00 EDT, Dry Weight Start Date: 02/07/22 Status: Ordered ferrous sulfate 325 mg oral tablet TAKE 1 TABLET BY MOUTH EVERY DAY NEEDED Start Date: 09/12/22 Status: Ordered FLUoxetine 20 mg oral capsule 1, capsule, By Mouth, Daily, # 30 capsule, Refills 14, Maintenance, 08/13/22 15:55:00 EDT, Route toPharmacy Electronically, [facility] ST[facility] 20358, 193.04, cm, 07/23/22 14:07:00 EDT, Height, 99.6, [...] 02/22/22 9:42:00 EDT, Route to Pharmacy Electronically, [facility] STORE 33382, 193, cm, 02/07/22 10:31:00 EDT, Height, 97.2, [...] capsule, 5 Refills, Maintenance, 08/13/22 15:28:00 EDT, [facility]/pharmacy #2071, 193.04, cm, 07/23/22 14:07:00 EDT, Height, 99.6, kg, 06/06/22 18:00:00 EST, Dry Weight Start Date: 08/13/22 Status: Ordered Right ankle & foot orthosis Right ankle & foot orthosis, See Instructions, # 1 each, Refills 1, Tot. Refills 1, Maintenance, Please dispense 1 right ankle and foot othosis Dx: R29.898, R26.81, M25.373 Length of need: 99 months Number to fax to: [phone], 01/06/21 13:10:00 E... Start Date: 01/06/21 Status: Ordered scopolamine 1 mg/72 hr transdermal film, extended release See Instructions, APPLY 1 PATCH TO RIGHT MASTOID BONE EVERY 72 HOURS, # 10 each, 3 Refills, Maintenance, 06/29/22 11:46:00 EST, [facility]/pharmacy #[id number], APPLY 1 PATCH TO RIGHT MASTOID BONE EVERY 72 HOURS,193.04, cm, 06/29/22 11:17:00 EST, Height, 99.6, kg... Start Date: 06/29/22 Status: Ordered scopolamine 1 mg/72 hr transdermal film, extended release 1 film, Topically, Every 72 hours, Apply to right mastoid bone, # 10 patch, 0 Refills, Maintenance,12/13/22 11:53:00 EDT, [facility]/pharmacy #1130, Partial fill upon patient [...] EST, Route to Pharmacy Electronically, [facility]/pharmacy #[id number], Partial fill upon patient request if the [...] apex Confirmed Active N CP Care Management, Welt Slasher Carmen Elizabeth [phone] Confirmed Active Therapeutic drug monitoring Confirmed Active Peripheral neuropathy Confirmed Active Spasticity Confirmed Active Tobacco dependence Confirmed Active Social History Social History Type Response Smoking Status 5-9 cigarettes (betw een 1/4 to 1/2 pack)/day in last 30 days entered on: 05/16/22 Sex Patient Care team information Care Team Personnel Name: Areli Pittman RN Position: [facility] ED RN W/OE and Tasks Member Role: Primary Care Nurse Name: Derek Tomas MD Position: [facility] Resident Member Role: PCP Address: Address: [address] [place] [address]- Name: Ally Boyd RN Position: S RN Member Role: Primary Care Nurse Name: Axel Savage RN Position: S RN Member Role: Primary Care Nurse Name: Filemon King RN Position: S RN Member Role: Primary Care Nurse Name: Glenys Fox RN Position: S RN Member Role: Primary Care Nurse Care Team Related Persons Name: JUHI BEVERLY Address: [address] [place] [id number] Name: AISLINN DE LA PAZ Address: home [address] [place] [address]
--- OUTSIDE RECORDS SUMMARY | 2023-02-03 22:26 | XMS_ITS | Continuity of Care Document ---
Author Name Unknown Organization [facility] Address [address] [place] [address]- Care Team Providers Care Apiarist Name Role Phone Derek Tomas MD Primary Care Physician [place] [facility] [place](s): 05/09/22 - 06/08/[address] [id number] Attending Physician: Sangeetha Latif Admitting Physician: [...] Mouth, Daily, # 30 tablet, 11 Refills, [facility] STORE 82593, 193, cm, 10/26/21 9:21:00 EDT,Height, 97.2, kg, 10/26/21 9:21:00 EDT, Dry Weight Start Date: 11/15/21 Status: Ordered baclofen 20 mg oral tablet 20 mg, 1, tablet, By Mouth, 4 times a day, # 120 tablet, Refills 5, Tot. Refills 5, Maintenance, 10/26/21 9:45:00 EDT, Route to Pharmacy Electronically, [facility]/pharmacy #[id number], 193, cm, 10/26/21 9:21:00 EDT, Height, 97.2, kg, 10/26/21 9:21:00 EDT, Dry Weight Start Date: 10/26/21 Status: Ordered clindamycin 150 mg oral capsule 3 capsule = 450 mg, By Mouth, 4 times a day, for 14 days, # 168 capsule, 0 Refills, Acute 06/21/22 12:43:00 EST, 06/07/22 12:43:00 EST, Capsule, [facility], Partial fill upon patient request if the prescription is for a schedule II opioi... Start Date: 06/07/22 Stop Date: 06/21/22 Status: Ordered Eliquis 5 mg oral tablet 1 tablet, By Mouth, 2 times a day, # 60 tablet, 11 Refills, 02/07/22 11:13:00 EDT, [facility]/pharmacy #[id number], 193, cm, 02/07/22 10:31:00 EDT, [...] EDT, Route to Pharmacy Electronically, [facility], 193, cm, 02/07/22 10:31:00 EDT, Height, 97.2, kg, 10/26/21 9:21:00 EDT, Dry Weight Start Date: 02/22/22 Status: Ordered omeprazole 40 mg oral enteric coated capsule 1 capsule, By Mouth, Daily, # 30 capsule, 5 Refills, Maintenance, 02/22/22 9:43:00 EDT, [facility] STORE 72418, 193, cm, 02/07/22 10:31:00 EDT, Height, 97.2, kg, 10/26/21 9:21:00 EDT, Dry Weight Start Date: 02/22/22 Status: Ordered Right ankle & foot orthosis Right ankle & foot orthosis, See Instructions, # 1 each, Refills 1, Tot. Refills 1, Maintenance, Please dispense 1 right ankle and foot othosis Dx: R29.898, R26.81, M25.373 Length of need: 99 months Number to fax to: [phone], 01/06/21 13:10:00 E... Start Date: 01/06/21 Status: Ordered scopolamine 1 mg/72 hr transdermal film, extended release 1 film, Topically, Every 72 hours, Apply to right mastoid bone, # 24 each, 1 Refills, Maintenance, 07/13/22 10:00:00 EST, [facility]/pharmacy #[id number], Partial fill upon patient request if the prescription is for a schedule II opioid drug., 1 film Topically Lucía... Start Date: 07/13/22 Status: Ordered tiZANidine 2 mg oral tablet See Instructions, 1 tablet by mouth twice a day, # 60 tablet, Refills 3, Tot. Refills 3, Maintenance, 06/08/22 14:32:00 EST, Instructions Replace Required Details, Route to Pharmacy Electronically, [facility]/pharmacy #[id number], Partial fill upon patient request... Start Date: 06/08/22 Status: Ordered Tylenol 325 mg oral tablet 650 mg, 2, tablet, By Mouth, Every 4 hours, PRN, # 120 tablet, Refills 0, Tot. Refills 0, Acute 05/21/23 19:50:00 EST, for pain, 05/20/22 19:50:00 EST, Route to Pharmacy Electronically, [facility]/pharmacy #[id number], Partial fill upon patient request if the [...] apex Confirmed Active [facility] CP Care Management, Clip And Hanger Attacher Carmen Elizabeth [phone] Confirmed Active Therapeutic drug monitoring Confirmed Active Peripheral neuropathy Confirmed Active Spasticity Confirmed Active Tobacco dependence Confirmed Active Social History Social History Type Response Smoking Status 5-9 cigarettes (betw een 1/4 to 1/2 pack)/day in last 30 days entered on: 05/16/22 Sex Patient Care team information Care Team Personnel Name: Areli Pittman RN Position: [facility] ED RN W/OE and Tasks Member Role: Primary Care Nurse Name: Bettye Carney Position: [facility] RN Member Role: Primary Care Nurse Name: Derek Tomas MD Position: [facility] Resident Member Role: PCP Address: Address: [address] [place] [address] Name: Ally Boyd RN Position: [facility] [...] Persons Name: BEVERLY REYNAGA Address: [address] [place] [address] Name: AISLINN DE LA PAZ Address: [address] [place] [address]
--- OUTSIDE RECORDS SUMMARY | 2023-02-03 22:26 | XMS_ITS | Continuity of Care Document ---
Author Name Unknown Organization [facility] Address [address] [place] [address]- Care Team Providers Care Fiscal Services Director Name Role Phone Judie Mills DO Primary Care Physician [place] [facility] [place](s): 04/06/20 - 05/14/20 [facility] [address] [place] [address]- Attending Physician: Mariza Mao MD Admitting Physician: [...]
--- OUTSIDE RECORDS SUMMARY | 2023-02-03 22:26 | XMS_ITS | Continuity of Care Document ---
Author Name Unknown Organization [facility] ter Address [address] [place] [address]- Care Team Providers Care Otolaryngology Surgeon Name Role Phone Derek Tomas MD Primary Care Physician [place] [facility] [place] - 08/15/[address] [id number] Allergies, Adverse Reactions, Alerts No Known Allergies [...] Mouth, Daily, # 30 tablet, 11 Refills, [facility] STORE 23377, 193, cm, 10/26/21 9:21:00 EDT,Height, 97.2, kg, 10/26/21 9:21:00 EDT, Dry Weight Start Date: 11/15/21 Status: Ordered baclofen 20 mg oral tablet 20 mg, 1, tablet, By Mouth, 4 times a day, # 120 tablet, Refills 5, Tot. Refills 5, Maintenance, 10/26/21 9:45:00 EDT, Route to [facility], [id number], 193, cm, 10/26/21 9:21:00 EDT, Height, 97.2, [...] 1 Refills, Maintenance, 06/29/22 11:48:00 EST, ECCapsule, [facility]/pharmacy #2071, Partial fill upon patient request if the prescription is for a schedule II opioid drug., 193.04, cm, 06/29/22 11:17:00 EST... Start Date: 06/29/22 Status: Ordered Eliquis 5 mg oral tablet 1 tablet, By Mouth, 2 times a day, # 60 tablet, 11 Refills, 02/07/22 11:13:00 EDT, [facility]/pharmacy #[id number], 193, cm, 02/07/22 10:31:00 EDT, [...] Maintenance, 08/13/22 15:55:00 EDT, Route toPharmacy Electronically, [facility] STORE 81438, 193.04, cm, 07/23/22 14:07:00 EDT, Height, 99.6, kg, 06/06/22 18:00:00 EST, Dry Weight Start Date: 08/13/22 Status: Ordered gabapentin 300 mg oral capsule 1, capsule, By Mouth, 3 times a day, # 90 capsule, Refills 5, Maintenance, 02/22/22 9:42:00 EDT, Route to Pharmacy Electronically, [facility] STORE 07276, 193, cm, 02/07/22 10:31:00 EDT, Height, 97.2, [...] capsule, 5 Refills, Maintenance, 08/13/22 15:28:00 EDT, [facility]/pharmacy #2071, 193.04, cm, 07/23/22 14:07:00 EDT, Height, 99.6, kg, 06/06/22 18:00:00 EST, Dry Weight Start Date: 08/13/22 Status: Ordered oxycodone 15 mg oral tablet, extended release 1 tablet = 15 mg, By Mouth, Every 12 hours, # 60 tablet, 0 Refills, Maintenance, 07/23/22 14:17:00 EDT, ER Tablet, [facility]/pharmacy #1130, Partial fill upon patient request [...] need: 99 months Number to fax to: [phone], 01/06/21 13:10:00 E... Start Date: 01/06/21 Status: Ordered scopolamine 1 mg/72 hr transdermal film, extended release See Instructions, APPLY 1 PATCH TO RIGHT MASTOID BONE EVERY 72 HOURS, # 10 each, 3 Refills, Maintenance, 06/29/22 11:46:00 EST, [facility]/pharmacy #[id number], APPLY 1 PATCH TO RIGHT MASTOID BONE EVERY 72 HOURS,193.04, cm, 06/29/22 11:17:00 EST, Height, 99.6, kg... Start Date: 06/29/22 Status: Ordered scopolamine 1 mg/72 hr transdermal film, extended release 1 film, Topically, Every 72 hours, Apply to right mastoid bone, # 24 each, 1 Refills, Maintenance, 07/13/22 10:00:00 EST, [facility]/pharmacy #[id number], Partial fill upon patient request if the prescription is for a schedule II opioid drug., 1 film Topically Lucía... Start Date: 07/13/22 Status: Ordered tiZANidine 2 mg oral tablet See Instructions, TAKE 1 TABLET BY MOUTH three times A DAY, # 90 tablet, Refills 6, Tot. Refills 6,Maintenance, 07/04/22 12:44:00 EST, Instructions Replace Required Details, Route to Pharmacy Electronically, [facility]/pharmacy #1130, 193.04, cm, 07/04/22... 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 Carmen Elizabeth [phone] Confirmed Active Therapeutic drug monitoring Confirmed Active Peripheral neuropathy Confirmed Active Spasticity Confirmed Active Tobacco dependence Confirmed Active Social History Social History Type Response Smoking Status 5-9 cigarettes (betw een 1/4 to 1/2 pack)/day in last 30 days entered on: 05/16/22 Sex Patient Care team information Care Team Personnel Name: Areli Pittman RN Position: [facility] ED RN W/OE and Tasks Member Role: Primary Care Nurse Name: Bettye Carney Position: [facility] RN Member Role: Primary Care Nurse Name: Derek Tomas MD Position: [facility] Resident Member Role: PCP Address: Address: [address] [place] [address]- Name: Ally Boyd RN Position: [facility] RN Member Role: Primary Care Nurse Name: Axel Savage RN Position: S RN Member Role: Primary Care Nurse Name: Filemon King RN Position: [facility] RN Member Role: Primary Care Nurse Name: Glenys Fox RN Position: S RN Member Role: Primary Care Nurse Care Team Related Persons Name: BEVERLY REYNAGA Address: [address] [place] [address] Name: AISLINN DE LA PAZ Address: [place] [facility] [address] [place] [address]
--- OUTSIDE RECORDS SUMMARY | 2023-02-03 22:26 | XMS_ITS | Continuity of Care Document ---
Author Name Unknown Organization [facility] Address [address] [place] [address] [address] [place] [address]- Care Team Providers Care Yeast Pumper Name Role Phone Derek Tomas MD Primary Care Physician [place] [facility] [place] 06/04/22 - 06/11/22 [facility] [address] [place] [address]- Attending Physician: Shayan Ruelas MD Referring Physician: Derek Tomas MD Allergies, [...] Mouth, Daily, # 30 tablet, 11 Refills, [facility] ST[facility] [address]9711, 193, cm, 10/26/21 9:21:00 EDT,Height, 97.2, kg, 10/26/21 9:21:00 EDT, Dry Weight Start Date: 11/15/21 Status: Ordered baclofen 20 mg oral tablet 20 mg, 1, tablet, By Mouth, 4 times a day, # 120 tablet, Refills 5, Tot. Refills 5, Maintenance, 10/26/21 9:45:00 EDT, Route to Pharmacy Electronically, [facility]/pharmacy #[id number], 193, cm, 10/26/21 9:21:00 EDT, Height, 97.2, kg, 10/26/21 9:21:00 EDT, Dry Weight Start Date: 10/26/21 Status: Ordered clindamycin 150 mg oral capsule 3 capsule = 450 mg, By Mouth, 4 times a day, for 14 days, # 168 capsule, 0 Refills, Acute 06/21/22 12:43:00 EST, 06/07/22 12:43:00 EST, Capsule, [facility], Partial fill upon patient request if the prescription is for a schedule II opioi... Start Date: 06/07/22 Stop Date: 06/21/22 Status: Ordered Eliquis 5 mg oral tablet 1 tablet, By Mouth, 2 times a day, # 60 tablet, 11 Refills, 02/07/22 11:13:00 EDT, [facility]/pharmacy #[id number], 193, cm, 02/07/22 [...] Replace Required Details, Route to Pharmacy Electronically, [facility] STORE 89158, 193.04, cm, 06/07/22 13:41:00 EST, Height, 99.... Start Date: 06/11/22 Status: Ordered gabapentin 300 mg oral capsule 1, capsule, By Mouth, 3 times a day, # 90 capsule, Refills 5, Maintenance, 02/22/22 9:42:00 EDT, Route to Pharmacy Electronically, [facility] STORE 43374, 193, cm, 02/07/22 10:31:00 EDT, Height, 97.2, kg, 10/26/21 9:21:00 EDT, Dry Weight Start Date: 02/22/22 Status: Ordered omeprazole 40 mg oral enteric coated capsule 1 capsule, By Mouth, Daily, # 30 capsule, 5 Refills, Maintenance, 02/22/22 9:43:00 EDT, [facility] STORE 66503, 193, cm, 02/07/22 10:31:00 EDT, Height, 97.2, kg, 10/26/21 9:21:00 EDT, Dry Weight Start Date: 02/22/22 Status: Ordered Right ankle & foot orthosis Right ankle & foot orthosis, See Instructions, # 1 each, Refills 1, Tot. Refills 1, Maintenance, Please dispense 1 right ankle and foot othosis Dx: R29.898, R26.81, M25.373 Length of need: 99 months Number to fax to: [phone], 01/06/21 13:10:00 E... Start Date: 01/06/21 Status: Ordered scopolamine 1 mg/72 hr transdermal film, extended release 1 film, Topically, Every 72 hours, Apply to right mastoid bone, # 24 each, 1 Refills, Maintenance, 07/13/22 10:00:00 EST, [facility]/pharmacy #[id number], Partial fill upon patient request if the prescription is for a schedule II opioid drug., 1 film Topically Lucía... Start Date: 07/13/22 Status: Ordered tiZANidine 2 mg oral tablet See Instructions, TAKE 1 TABLET BY MOUTH TWICE A DAY, # 60 tablet, Refills 3, Maintenance, 06/11/2311:04:00 EST, Instructions Replace Required Details, Route to Pharmacy Electronically, [facility] STORE 98738, 193.04, cm, 06/07/22 13:41:00 EST, Height, 99.6... Start Date: 06/11/22 Status: Ordered tiZANidine 2 mg oral tablet See Instructions, 1 tablet by mouth twice a day, # 60 tablet, Refills 3, Tot. Refills 3, Maintenance, 06/08/22 14:32:00 EST, Instructions Replace Required Details, Route to Pharmacy Electronically, [facility]/pharmacy #[id number], Partial fill upon patient request... Start Date: 06/08/22 Status: Ordered Tylenol 325 mg oral tablet 650 mg, 2, tablet, By Mouth, Every 4 hours, PRN, # 120 tablet, Refills 0, Tot. 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 Carmen Elizabeth [phone] Confirmed Active Therapeutic drug monitoring Confirmed Active Peripheral neuropathy Confirmed Active Spasticity Confirmed Active Tobacco dependence Confirmed Active Vital Signs Most recent to oldest [Reference Range]: 1 Height 193 cm (06/04/22 10:55 AM) Weight 101.2 kg (06/04/22 10:55 AM) Pulse Rate [55-90 bpm] 74 bpm (06/04/22 10:55 AM) Body Mass Index [18.5-24.99 kg/m2] 27.17 kg/m2 *H* (06/04/22 10:55 AM) Blood Pressure [90-138/55-84 mm Hg] 138/ 76mm Hg (06/04/22 10:55 AM) Temperature [96.8-100.4 DegF] 98.6 DegF (06/04/22 10:55 AM) Blood pressure sites Arm, left (06/04/22 10:55 AM) Temperature Route Temporal (06/04/22 10:55 AM) Weight Obtained Via Standing scale (06/04/22 10:55 AM) Social History Social History Type Response Smoking Status 5-9 cigarettes (betw een 1/4 to 1/2 pack)/day in last 30 days entered on: 05/16/22 Sex Patient Care team information Care Team Personnel Name: Areli Pittman RN Position: [facility] ED RN W/OE and Tasks Member Role: Primary Care Nurse Name: Bettye Carney Position: [facility] RN Member Role: Primary Care Nurse Name: Derek Tomas MD Position: [facility] Resident Member Role: PCP Address: Address: [address] [place] [address]- Name: Ally Boyd RN Position: S RN Member Role: Primary Care Nurse Name: Axel Savage RN Position: S RN Member Role: Primary Care Nurse Name: Filemon King RN Position: [facility] RN Member Role: Primary Care Nurse Name: Glenys Fox RN Position: [facility] RN Member Role: Primary Care Nurse Care Team Related Persons Name: BEVERLY REYNAGA Address: [address] [place] [address] Name: AISLINN DE LA PAZ Address: [address] [place] [address]
--- OUTSIDE RECORDS SUMMARY | 2023-02-03 22:26 | XMS_ITS | Continuity of Care Document ---
Author Name Unknown Organization [facility] Address [address] [place] [address]- Care Team Providers Care Energy Professional Name Role Phone Judie Mills DO Primary Care Physician [phone] Encounter [facility] [place] Date(s): 10/07/20 - 11/06/[address] [address] Allergies, Adverse Reactions, Alerts Substance Reaction Severity Status NKA Active Medications amLODIPine 5 mg oral tablet 5 mg, 1, tablet, By Mouth, Daily, # 30 tablet, Refills 11, Tot. Refills 11, Maintenance, 10/31/20 12:56:00 EDT, Route to Pharmacy Electronically, [facility]/pharmacy #[id number], Partial fill [...] 10/31/20 12:56:00 EDT, Route to Pharmacy Electronically, [facility]/pharmacy #[id number], Partial fill upon patient request if the prescription is for a schedule II opioid drug.... Start Date: 10/31/20 Status: Ordered gabapentin 100 mg oral capsule 100 mg, 1, capsule, By Mouth, 3 times a day, # 90 capsule, Refills 11, Tot. Refills 11, Maintenance, 11/02/20 17:57:00 EDT, Route to Pharmacy Electronically, [facility]/pharmacy #[id number], Partial fill [...] 0 Refills, Maintenance, 10/31/20 12:56:00 EDT, Tablet, [facility]/pharmacy #[id number], Partial fill upon patient request if the prescription is for a schedule II opioid drug., 187.6, cm, 10/19/20 9:25:00 EDT, Heigh... Start Date: 10/31/20 Status: Ordered Problem List Condition Effective Dates Status Health Status Inform ant Hidradenitis suppurativa(Confirmed) Active Wound of buttock(Confirmed) Active Tobacco dependence(Confirmed) Active Social History Social History Type Response Smoking Status 10 or more cigarette s (1/2 pack or more)/day in last 30 days entered on: 02/29/20 Sex
--- OUTSIDE RECORDS SUMMARY | 2023-02-03 22:26 | XMS_ITS | Continuity of Care Document ---
Author Name Unknown Organization [facility] Address Unknown Care Team Providers Care Pitch Gatherer Name Role Phone Judie Mills DO Primary Care Physician [phone] [place] [facility] [place] 09[place]21/21 - 10/21/21 [facility] Allergies, Adverse Reactions, Alerts No Known Allergies Immunizations Given and Recorded Vaccine Date Status Refusal Reason tetanus/diphtheria/pertussis, acel(Tdap) 09/13/19 Recorded Medications amLODIPine 5 mg oral tablet 5 mg, 1, tablet, By Mouth, Daily, # 30 tablet, Refills 11, Tot. Refills 11, Maintenance, 10/31/20 12:56:00 EDT, Route to Pharmacy Electronically, [facility]/pharmacy #[id number], Partial fill upon patient requestif the prescription is for a schedule II opioid laura... Start Date: 10/31/20 Status: Ordered apixaban 5 mg oral tablet 1 tablet = 5 mg, By Mouth, 2 times a day, # 60 tablet, 11 Refills, Maintenance, 10/31/20 12:55:00 EDT, Tablet, [facility]/pharmacy #[id number], Partial fill upon patient request if the prescription is for a schedule II opioid drug., 187.6, cm, 10/19/20 9:25:00 EDT... Start Date: 10/31/20 Status: Ordered baclofen 20 mg oral tablet 20 mg, 1, tablet, By Mouth, 3 times a day, # 90 tablet, Refills 5, Tot. Refills 5, Maintenance, 08/16/21 10:36:00 EDT, Route to Pharmacy Electronically, [facility]/pharmacy #[id number], 193, cm, 07/27/21 8:35:00 EDT, [...] Refills, Maintenance, 04/06/20 16:11:00 EST, Gel, [facility]/pharmacy #[id number], Partial fill upon patient request, [...] 8:13:00 EDT, Route to Pharmacy Electronically, [facility] STORE 97239, 187.6, cm, 10/19/20 9:25:00 EDT, Height, 101.4, [...] 04/03/21 14:16:00 EST, [id number] Note bedtime dose change, 193, cm, 03/15/21 16:10:00 EDT, Height, 104.5,... Start Date: 04/03/21 Stop Date: 08/01/21 Status: Ordered metoclopramide 10 mg oral tablet, disintegrating 1 tablet = 10 mg, By Mouth, Every 8 hours, PRN Nausea & Vomiting, # 28 tablet, 0 Refills, Maintenance, 02/24/21 17:09:00 EDT, DIS Tablet, [facility]/pharmacy #[id number], Partial fill upon patient request [...] Refills, Maintenance, 03/13/21 13:24:00 EDT, ECCapsule, [facility]/pharmacy #[id number], Partial fill upon patient request [...] 22:43:00 EDT, Route to Pharmacy Electronically, [facility]/pharmacy #[id number], Partial fill upon patient request [...] need: 99 months Number to fax to: [phone], 01/06/21 13:10:00 E... Start Date: 01/06/21 Status: Ordered scopolamine 1 mg/72 hr transdermal film, extended release 1 film, Topically, Every 72 hours, Apply to right mastoid bone, # 10 each, 1 Refills, Acute 07/13/22 10:00:00 EST, 07/12/21 16:55:00 EST, [facility]/pharmacy #[id number], Partial fill upon patient request if the prescription is for a schedule II opioid drug., 1 fi... Start Date: 07/12/21 Stop Date: 07/13/22 Status: Ordered scopolamine 1 mg/72 hr transdermal film, extended release 1 film, Topically, Every 72 hours, Apply to right mastoid bone, # 24 each, 1 Refills, Maintenance, 07/13/22 10:00:00 EST, [facility]/pharmacy #[id number], Partial fill upon patient request [...] Refills, Maintenance, 11/22/20 8:13:00 EDT, [facility], 187.6, cm, 10/19/20 9:25:00 EDT, Height, 101.4, [...]
--- OUTSIDE RECORDS SUMMARY | 2023-02-03 22:26 | XMS_ITS | Continuity of Care Document ---
Author Name Unknown Organization [facility] Address Unknown Care Team Providers Care Engineering Vice President Name Role Phone Judie Mills DO Primary Care Physician [place] [facility] [place] 09/15/21 - 10/15/21 [facility] Allergies, Adverse Reactions, Alerts No Known Allergies Immunizations Given and Recorded Vaccine Date Status Refusal Reason tetanus/diphtheria/pertussis, acel(Tdap) 09/13/19 Recorded Medications amLODIPine 5 mg oral tablet 5 mg, 1, tablet, By Mouth, Daily, # 30 tablet, Refills 11, Tot. Refills 11, Maintenance, 10/31/20 12:56:00 EDT, Route to Pharmacy Electronically, [facility]/pharmacy #[id number], Partial fill upon patient requestif the prescription is for a schedule II opioid laura... Start Date: 10/31/20 Status: Ordered apixaban 5 mg oral tablet 1 tablet = 5 mg, By Mouth, 2 times a day, # 60 tablet, 11 Refills, Maintenance, 10/31/20 12:55:00 EDT, Tablet, [facility]/pharmacy #[id number], Partial fill upon patient request if the prescription is for a schedule II opioid drug., 187.6, cm, 10/19/20 9:25:00 EDT... Start Date: 10/31/20 Status: Ordered baclofen 20 mg oral tablet 20 mg, 1, tablet, By Mouth, 3 times a day, # 90 tablet, Refills 5, Tot. Refills 5, Maintenance, 08/16/21 10:36:00 EDT, Route to Pharmacy Electronically, [facility]/pharmacy #[id number], 193, cm, 07/27/21 8:35:00 EDT, Height, [...] 0 Refills, Maintenance, 04/06/20 16:11:00 EST, Gel, [facility]/pharmacy #[id number], Partial fill upon patient request, 1 [...] 11/22/20 8:13:00 EDT, Route to Pharmacy Electronically, [facility]68, 187.6, cm, 10/19/20 9:25:00 EDT, Height, 101.4, [...] 04/03/21 14:16:00 EST, [id number] Note bedtime dose change, 193, cm, 03/15/21 16:10:00 EDT, Height, 104.5,... Start Date: 04/03/21 Stop Date: 08/01/21 Status: Ordered metoclopramide 10 mg oral tablet, disintegrating 1 tablet = 10 mg, By Mouth, Every 8 hours, PRN Nausea & Vomiting, # 28 tablet, 0 Refills, Maintenance, 02/24/21 17:09:00 EDT, DIS Tablet, [facility]/pharmacy #[id number], Partial fill upon patient [...] 5 Refills, Maintenance, 03/13/21 13:24:00 EDT, ECCapsule, [facility]/pharmacy #[id number], Partial fill upon patient [...] 03/15/21 22:43:00 EDT, Route to Pharmacy Electronically, [facility]/pharmacy #[id number], Partial fill upon patient [...] need: 99 months Number to fax to: [phone], 01/06/21 13:10:00 E... Start Date: 01/06/21 Status: Ordered scopolamine 1 mg/72 hr transdermal film, extended release 1 film, Topically, Every 72 hours, Apply to right mastoid bone, # 10 each, 1 Refills, Acute 07/13/22 10:00:00 EST, 07/12/21 16:55:00 EST, [facility]/pharmacy #[id number], Partial fill upon [...] Refills, Maintenance, 11/22/20 8:13:00 EDT, [facility], 187.6, cm, 10/19/20 9:25:00 EDT, Height, 101.4, [...]
--- OUTSIDE RECORDS SUMMARY | 2023-02-03 22:27 | XMS_ITS | Continuity of Care Document ---
Author Name Unknown Organization [facility] Address [address] [place] [address]- Care Team Providers Care Printed Circuit Boards Contact Printer Name Role Phone Judie Mills DO Primary Care Physician [phone] Encounter [facility] [place](s): 04/06/20 - 05/11/20 [facility] [address] [place] [address]- Attending Physician: Mariza Mao MD Admitting Physician: [...]
--- OUTSIDE RECORDS SUMMARY | 2023-02-03 22:27 | XMS_ITS | Continuity of Care Document ---
Author Name Unknown Organization [facility] Address [address] [place] [address]- Care Team Providers Care Counsellors Name Role Phone Judie Mills DO Primary Care Physician [phone] [place] [facility] [place](s[place] 10/26/20 - 11/25/[address] [address] Allergies, Adverse Reactions, Alerts Substance [...] 11/22/20 8:13:00 EDT, Route to Pharmacy Electronically, [facility] ST[facility] 78283, 187.6, cm, 10/19/20 9:25:00 EDT, Height, 101.4, kg, 08/27/20 1:59:00 EDT, Dry Weight Start Date: 11/22/20 Status: Ordered gabapentin 100 mg oral capsule 100 mg, 1, capsule, By Mouth, 3 times a day, # 90 capsule, Refills 11, Tot. Refills 11, Maintenance, 11/02/20 17:57:00 EDT, Route to Pharmacy Electronically, [facility]/pharmacy #3576, Partial fill upon patient request if the [...] 11/25/20 15:58:00 EDT, Route to Pharmacy Electronically, [facility]/pharmacy #3920, Partial fill upon patient request if the [...] Refills, Maintenance, 11/22/20 8:13:00 EDT, [facility], 187.6, cm, 10/19/20 9:25:00 EDT, Height, 101.4, [...]
--- OUTSIDE RECORDS SUMMARY | 2023-02-03 22:27 | XMS_ITS | Continuity of Care Document ---
Author Name Unknown Organization [facility] Address [address] [place] [address]- Care Team Providers Care Senior Web Applications Developer Name Role Phone Derek Tomas MD Primary Care Physician [place] [facility] [place] - 06/16/[address] [address]- Attending Physician: Not on Staff, Attending MD Admitting Physician: Not on Staff, Admitting MD Referring Physician: Not on Staff, Referring [...] # 30 tablet, 11 Refills, [facility], 193, cm, 10/26/21 9:21:00 EDT,Height, 97.2, kg, 10/26/21 9:21:00 EDT, Dry Weight Start Date: 11/15/21 Status: Ordered baclofen 20 mg oral tablet 20 mg, 1, tablet, By Mouth, 4 times a day, # 120 tablet, Refills 5, Tot. Refills 5, Maintenance, 10/26/21 9:45:00 EDT, Route to Pharmacy Electronically, [facility]/pharmacy #[id number], 193, cm, 10/26/21 9:21:00 EDT, Height, 97.2, kg, 10/26/21 9:21:00 EDT, Dry Weight Start Date: 10/26/21 Status: Ordered clindamycin 150 mg oral capsule 3 capsule = 450 mg, By Mouth, 4 times a day, for 14 days, # 168 capsule, 0 Refills, Acute 06/21/22 12:43:00 EST, 06/07/22 12:43:00 EST, Capsule, [facility], Partial fill upon patient request if the prescription is for a schedule II opioi... Start Date: 06/07/22 Stop Date: 06/21/22 Status: Ordered Eliquis 5 mg oral tablet 1 tablet, By Mouth, 2 times a day, # 60 tablet, 11 Refills, 02/07/22 11:13:00 EDT, [facility]/pharmacy #[id number], 193, cm, 02/07/22 [...] Replace Required Details, Route to Pharmacy Electronically, [facility] 49665, 193.04, cm, 06/07/22 13:41:00 EST, Height, 99.... Start Date: 06/11/22 Status: Ordered gabapentin 300 mg oral capsule 1, capsule, By Mouth, 3 times a day, # 90 capsule, Refills 5, Maintenance, 02/22/22 9:42:00 EDT, Route to Pharmacy Electronically, [facility] 44982, 193, cm, 02/07/22 10:31:00 EDT, Height, 97.2, kg, 10/26/21 9:21:00 EDT, Dry Weight Start Date: 02/22/22 Status: Ordered omeprazole 40 mg oral enteric coated capsule 1 capsule, By Mouth, Daily, # 30 capsule, 5 Refills, Maintenance, 02/22/22 9:43:00 EDT, [facility] ST[facility] 52334, 193, cm, 02/07/22 10:31:00 EDT, Height, 97.2, kg, 10/26/21 9:21:00 EDT, Dry Weight Start Date: 02/22/22 Status: Ordered Right ankle & foot orthosis Right ankle & foot orthosis, See Instructions, # 1 each, Refills 1, Tot. Refills 1, Maintenance, Please dispense 1 right ankle and foot othosis Dx: R29.898, R26.81, M25.373 Length of need: 99 months Number to fax to: [phone], 01/06/21 13:10:00 E... Start Date: 01/06/21 Status: Ordered scopolamine 1 mg/72 hr transdermal film, extended release 1 film, Topically, Every 72 hours, Apply to right mastoid bone, # 24 each, 1 Refills, Maintenance, 07/13/22 10:00:00 EST, [facility]/pharmacy #[id number], Partial fill upon patient request if the prescription is for a schedule II opioid drug., 1 film Topically Lucía... Start Date: 07/13/22 Status: Ordered tiZANidine 2 mg oral tablet See Instructions, TAKE 1 TABLET BY MOUTH TWICE A DAY, # 60 tablet, Refills 3, Maintenance, 06/11/2311:04:00 EST, Instructions Replace Required Details, Route to Pharmacy Electronically, [facility] STORE 99538, 193.04, cm, 06/07/22 13:41:00 EST, Height, 99.6... Start Date: 06/11/22 Status: Ordered tiZANidine 2 mg oral tablet See Instructions, 1 tablet by mouth twice a day, # 60 tablet, Refills 3, Tot. Refills 3, Maintenance, 06/08/22 14:32:00 EST, Instructions Replace Required Details, Route to Pharmacy Electronically, [facility]/pharmacy #[id number], Partial fill upon patient [...] 05/20/22 19:50:00 EST, Route to Pharmacy Electronically, [facility]/pharmacy #6596, Partial fill upon patient request if the [...] apex Confirmed Active N CP Care Management, Award Clerk Carmen Elizabeth [phone] Confirmed Active Therapeutic drug monitoring Confirmed Active Peripheral neuropathy Confirmed Active Spasticity Confirmed Active Tobacco dependence Confirmed Active Social History Social History Type Response Smoking Status 5-9 cigarettes (betw een 1/4 to 1/2 pack)/day in last 30 days entered on: 05/16/22 Sex Patient Care team information Care Team Personnel Name: Areli Pittman RN Position: [facility] ED RN W/OE and Tasks Member Role: Primary Care Nurse Name: Bettye Carney Position: [facility] RN Member Role: Primary Care Nurse Name: Derek Tomas MD Position: [facility] Resident Member Role: PCP Address: Address: [address] [place] [address]- Name: Ally Boyd RN Position: [facility] RN Member Role: Primary Care Nurse Name: Axel Savage RN Position: S RN Member Role: Primary Care Nurse Name: Filemon King RN Position: [facility] RN Member Role: Primary Care Nurse Name: Glenys Fox RN Position: [facility] RN Member Role: Primary Care Nurse Care Team Related Persons Name: BEVERLY REYNAGA Address: [address] [address] Name: AISLINN DE LA PAZ Address: [address] [address]
--- OUTSIDE RECORDS SUMMARY | 2023-02-03 22:27 | XMS_ITS | Continuity of Care Document ---
Author Name Unknown Organization [facility] ter Address [address] [place] [address]- Care Team Providers Care Blue Crabber Name Role Phone Judie Mills DO Primary Care Physician [phone] Encounter [facility] [place] Date(s): 02/20/21 - 02/20/[address] [address]- Encounter Diagnosis Nausea & vomiting(Final) - 02/20/21 Discharge Disposition: A-D/C Home Attending Physician: Lorena Bush MD Admitting Physician: Lorena Bush MD Referring Physician: Not on Staff, Referring MD Allergies, Adverse Reactions, Alerts Substance Reaction Severity Status NKA Active Immunizations Given and Recorded Vaccine Date Status Refusal Reason tetanus/diphtheria/pertussis, acel(Tdap) 09/13/19 Recorded Medications amLODIPine 5 mg oral tablet 5 mg, 1, tablet, By Mouth, Daily, # 30 tablet, Refills 11, Tot. Refills 11, Maintenance, 10/31/20 12:56:00 EDT, Route to Pharmacy Electronically, [facility]/pharmacy #[id number], Partial fill upon patient requestif the prescription is for a schedule II opioid laura... Start Date: 10/31/20 Status: Ordered apixaban 5 mg oral tablet 1 tablet = 5 mg, By Mouth, 2 times a day, # 60 tablet, 11 Refills, Maintenance, 10/31/20 12:55:00 EDT, Tablet, [facility]/pharmacy #[id number], Partial fill upon patient request if the prescription is for a schedule II opioid drug., 187.6, cm, 10/19/20 9:25:00 EDT... Start Date: 10/31/20 Status: Ordered clindamycin 1% topical gel 1 application, Topically, 2 times a day, # 60 Gm, 0 Refills, Maintenance, 04/06/20 16:11:00 EST, Gel, [facility]/pharmacy #[id number], Partial fill upon [...] 11/22/20 8:13:00 EDT, Route to Pharmacy Electronically, [facility] STORE 7[address]14, 187.6, cm, 10/19/20 9:25:00 EDT, Height, 101.4, kg, 08/27/20 1:59:00 EDT, Dry Weight Start Date: 11/22/20 Status: Ordered gabapentin 100 mg oral capsule 100 mg, 1, capsule, By Mouth, 3 times a day, # 90 capsule, Refills 11, Tot. Refills 11, Maintenance, 11/02/20 17:57:00 EDT, Route to Pharmacy Electronically, [facility]/pharmacy #[id number], Partial fill upon patient request if the prescription is for a schedule I... Start Date: 11/02/20 Status: Ordered metoclopramide 10 mg oral tablet, disintegrating 1 tablet = 10 mg, By Mouth, Every 8 hours, PRN Nausea & Vomiting, # 6 tablet, 0 Refills, Maintenance, 02/20/21 17:42:00 EDT, DIS Tablet, [facility]/pharmacy #[id number], Partial fill upon patient request if the prescription is for a schedule II opioid drug., 193,... Start Date: 02/20/21 Status: Ordered Milk of Magnesia Liquid 30 [...] need: 99 months Number to fax to: [phone], 01/06/21 13:10:00 E... Start Date: 01/06/21 Status: Ordered SEROquel 25 mg oral tablet 25 mg, 1, tablet, By Mouth, 2 times a day, # 60 tablet, Refills 3, Tot. Refills 3, Maintenance, 11/25/20 15:58:00 EDT, Route to Pharmacy Electronically, [facility]/pharmacy #4480, Partial fill upon patient request if the [...] tablet, 11 Refills, Maintenance, 11/22/20 8:13:00 EDT, [facility] STORE 49000, 187.6, cm, 10/19/20 9:25:00 EDT, Height, 101.4, [...] 0 Refills,Maintenance, 02/15/21 19:16:00 EDT, Tablet, [facility], Partial fill upon patient request if the prescription is for a schedule II opioid drug.... Start Date: 02/15/21 Stop Date: 02/18/21 Status: Ordered Problem List Condition Effective Dates Status Health Status Inform ant Hidradenitis suppurativa(Confirmed) Active Wound of buttock(Confirmed) Active Tobacco dependence(Confirmed) Active Results Radiology Reports * Exam Date Time Procedure Performing Provider Status 02/20/21 1:36 PM Chest 2 Views Frontal and Lat Renetta Hernández; Auth (Verified) Notes: (Chest 2 Views Frontal and Lat) Reason For Exam: Abdominal Pain RESULT: Chest 2 Views Frontal and Lat Chest 2 Views Frontal and Lat CLINICAL INDICATION: Chest pain and vomiting. COMPARISON: Chest x-ray, 09/02/2020. FINDINGS: The cardiac silhouette is within normal limits. Hilar and mediastinal contours are normal. The lungs are clear with low lung volumes noted. There is no pleural effusion, pneumothorax, or evidence of CHF. No acute osseous abnormality is noted. IMPRESSION: No acute cardiopulmonary process. WSN: [id number] Ordering Physician: Breanne Rucker Dictated By: Becki Anderson MD Dictated Date/Time: 02/20/21 1:41 pm Reviewed By: Becki Anderson MD Signed By: Becki Anderson MD Signed Date/Time: 02/20/21 1:41 pm Transcribed By: ZEHRA Transcribed Date/Time: 02/20/21 1:40 pm Vital Signs Most recent to oldest [Reference Range]: 1 2 Oxygen Saturation [94-100 %] 100 % (02/20/21 4:58 PM) 99 % (02/20/21 10:56 AM) Pulse Rate [55-90 bpm] 55 bpm (02/20/21 4:58 PM) 63 bpm (02/20/21 10:56 AM) Blood Pressure [90-138/55-84 mm Hg] 134/ 84mm Hg (02/20/21 4:58 PM) 118/73mm Hg (02/20/21 10:56 AM) Respiratory Rate [16-30 br/min] 16 br/mi n (02/20/21 4:58 PM) 20 br/min (02/20/21 10:56 AM) Temperature [96.8-100.4 DegF] 98.7 DegF (02/20/21 4:58 PM) 98.5 DegF (02/20/21 10:56 AM) Mode of Delivery (Oxygen) Room air (02/20/21 4:58 PM) Room air (02/20/21 10:56 AM) Blood pressure sites Arm, left (02/20/21 4:58 PM) Arm, right (02/20/21 10:56 AM) Temperature Route Oral (02/20/21 4:58 PM) Oral (02/20/21 10:56 AM) Social History Social History Type Response Smoking Status 10 or more cigarette s (1/2 pack or more)/day in last 30 days entered on: 02/29/20 Sex
--- OUTSIDE RECORDS SUMMARY | 2023-02-03 22:27 | XMS_ITS | Continuity of Care Document ---
Author Name Unknown Organization [facility] Address Unknown Care Team Providers Care Sap Consultant Name Role Phone Judie Mills DO Primary Care Physician [phone] Encounter [facility] [place] Date(s): 03/15/21 - 04/14/21 [facility] Attending Physician: Sangeetha Latif Admitting Physician: Sangeetha Latif Referring Physician: Sangeetha Latif Allergies, Adverse Reactions, Alerts Substance Reaction Severity [...] Pharmacy Electronically, [facility] STORE [address]34, 187.6, cm, 10/19/20 9:25:00 EDT, Height, 101.4, kg, 08/27/20 1:59:00 EDT, Dry Weight Start Date: 11/22/20 Status: Ordered gabapentin 100 mg oral capsule 100 mg, 1, capsule, By Mouth, 2 times a day, # 60 capsule, Refills 11, Tot. Refills 11, Maintenance, 04/03/21 14:15:00 EST, Route to Pharmacy Electronically, [facility]/pharmacy #[id number], note dose change, 193, cm, 03/15/21 16:10:00 EDT, Height, 104.5, kg, 10/0... Start Date: 04/03/21 Stop Date: 03/29/22 Status: Ordered gabapentin 300 mg oral capsule 300 mg, 1, capsule, By Mouth, Daily at bedtime, # 30 capsule, Refills 3, Tot. Refills 3, Maintenance, 04/03/21 14:16:00 EST, Route to Pharmacy Electronically, [facility]/pharmacy #[id number], Note bedtime dose change, 193, cm, 03/15/21 16:10:00 EDT, Height, 104.5,... Start Date: 04/03/21 Stop Date: 08/01/21 Status: Ordered metoclopramide 10 mg oral tablet, disintegrating 1 tablet = 10 mg, By Mouth, Every 8 hours, PRN Nausea & Vomiting, # 28 tablet, 0 Refills, Maintenance, 02/24/21 17:09:00 EDT, DIS Tablet, [facility]/pharmacy #[id number], Partial fill [...] need: 99 months Number to fax to: [phone], 01/06/21 13:10:00 E... Start Date: 01/06/21 Status: [...] tablet, 11 Refills, Maintenance, 11/22/20 8:13:00 EDT, [facility] 61652, 187.6, cm, 10/19/20 9:25:00 EDT, Height, 101.4, [...]
--- OUTSIDE RECORDS SUMMARY | 2023-02-03 22:27 | XMS_ITS | Continuity of Care Document ---
Author Name Unknown Organization [facility] Address [address] [place] [address] [address] [place] [address]- Care Team Providers Care Mine Engineering Supervisor Name Role Phone Derek Tomas MD Primary Care Physician [place] [facility] [place] - 07/04/[address] [place] [address]- Attending Physician: Admtr, Sangeetha Admitting Physician: Admtr, ArShazia Referring Physician: Admtr, [...] Mouth, Daily, # 30 tablet, 11 Refills, [facility] 74590, 193, cm, 10/26/21 9:21:00 EDT,Height, 97.2, kg, 10/26/21 9:21:00 EDT, Dry Weight Start Date: 11/15/21 Status: Ordered baclofen 20 mg oral tablet 20 mg, 1, tablet, By Mouth, 4 times a day, # 120 tablet, Refills 5, Tot. Refills 5, Maintenance, 10/26/21 9:45:00 EDT, Route to Pharmacy Electronically, [facility]/pharmacy #[id number], 193, cm, 10/26/21 9:21:00 [...] 1 Refills, Maintenance, 06/29/22 11:48:00 EST, ECCapsule, [facility]/pharmacy #[id number], Partial fill upon patient request if the prescription is for a schedule II opioid drug., 193.04, cm, 06/29/22 11:17:00 EST... Start Date: 06/29/22 Status: Ordered Eliquis 5 mg oral tablet 1 tablet, By Mouth, 2 times a day, # 60 tablet, 11 Refills, 02/07/22 11:13:00 EDT, [facility]/pharmacy #[id number], 193, cm, 02/07/22 10:31:00 EDT, Height, [...] Pharmacy Electronically, [facility] STORE 64547, 193, cm, 02/07/22 10:31:00 EDT, Height, 97.2, kg, 10/26/21 9:21:00 EDT, Dry Weight Start Date: 02/22/22 Status: Ordered omeprazole 40 mg oral enteric coated capsule 1 capsule, By Mouth, Daily, # 30 capsule, 5 Refills, Maintenance, 02/22/22 9:43:00 EDT, [facility], 193, cm, 02/07/22 10:31:00 EDT, Height, 97.2, kg, 10/26/21 9:21:00 EDT, Dry Weight Start Date: 02/22/22 Status: Ordered Right ankle & foot orthosis Right ankle & foot orthosis, See Instructions, # 1 each, Refills 1, Tot. Refills 1, Maintenance, Please dispense 1 right ankle and foot othosis Dx: R29.898, R26.81, M25.373 Length of need: 99 months Number to fax to: [phone], 01/06/21 13:10:00 E... Start Date: 01/06/21 Status: Ordered scopolamine 1 mg/72 hr transdermal film, extended release See Instructions, APPLY 1 PATCH TO RIGHT MASTOID BONE EVERY 72 HOURS, # 10 each, 3 Refills, Maintenance, 06/29/22 11:46:00 EST, [facility]/pharmacy #[id number], APPLY 1 PATCH TO RIGHT MASTOID BONE EVERY 72 HOURS,193.04, cm, 06/29/22 11:17:00 EST, Height, 99.6, kg... Start Date: 06/29/22 Status: Ordered scopolamine 1 mg/72 hr transdermal film, extended release 1 film, Topically, Every 72 hours, Apply to right mastoid bone, # 24 each, 1 Refills, Maintenance, 07/13/22 10:00:00 EST, [facility]/pharmacy #[id number], Partial fill [...] Details, Route to Pharmacy Electronically, [facility]/pharmacy #1130, 193.04, cm, 07/04/22... Start Date: 07/04/22 Status: Ordered transfer tub bench transfer tub bench, See Instructions, # 1 each, Refills 0, Tot. Refills 0, Maintenance, use as needed to prevent fall. Diagnosis: Stroke, Impaired Mobility. ICD10 I63.9, ICDR26.2. KRISSY 99 for PCP Jacobo Fuchs Fax to [facility], 06/29/22 12:28:00... Start Date: 06/29/22 Status: Ordered Tylenol 325 mg oral tablet 650 mg, 2, tablet, By Mouth, Every 4 hours, PRN, # 120 tablet, Refills 0, Tot. Refills 0, Acute 05/21/23 19:50:00 EST, for pain, 05/20/22 19:50:00 EST, Route to Pharmacy Electronically, [facility]/pharmacy #2449, Partial fill upon patient request if the [...] apex Confirmed Active N CP Care Management, Assistant Professor Of Religion Carmen Elizabeth [phone] Confirmed Active Therapeutic drug monitoring Confirmed Active Peripheral neuropathy Confirmed Active Spasticity Confirmed Active Tobacco dependence Confirmed Active Social History Social History Type Response Smoking Status 5-9 cigarettes (betw een 1/4 to 1/2 pack)/day in last 30 days entered on: 05/16/22 Sex Patient Care team information Care Team Personnel Name: Areli Pittman RN Position: [facility] ED RN W/OE and Tasks Member Role: Primary Care Nurse Name: Bettye Carney Position: [facility] RN Member Role: Primary Care Nurse Name: Derek Tomas MD Position: [facility] Resident Member Role: PCP Address: Address: [address] [place] [address]- Name: Ally Boyd RN Position: S RN Member Role: Primary Care Nurse Name: Axel Savage RN Position: S RN Member Role: Primary Care Nurse Name: Filemon King RN Position: [facility] RN Member Role: Primary Care Nurse Name: Glenys Fox RN Position: [facility] RN Member Role: Primary Care Nurse Care Team Related Persons Name: BEVERLY REYNAGA Address: [address] [place] [address] Name: AISLINN DE LA PAZ Address: [address] [place] [address]
--- OUTSIDE RECORDS SUMMARY | 2023-02-03 22:27 | XMS_ITS | Continuity of Care Document ---
Author Name Unknown Organization [facility] Address [address] [place] [address]- Care Team Providers Care Single Resource Boss Name Role Phone Derek Tomas MD Primary Care Physician [place] [facility] [place] - 06/20/[address] [address]- Allergies, Adverse Reactions, Alerts No Known Allergies Immunizations Given and Recorded Vaccine Date Status Refusal Reason influenza virus vaccine, inactivated 05/18/22 Give n tetanus/diphtheria/pertussis, acel(Tdap) 09/13/19 Recorded Medications 3 in 1 commode 3 in 1 commode, See Instructions, # 1 each, Refills 0, Tot. Refills 0, Maintenance, use as needed For PCP Dr: Jacobo, 06/20/22 16:14:00 EST, Supply, 193.04, cm, 06/07/22 13:41:00 EST, Height, 99.6, kg, 06/06/22 18:00:00 EST, Dry Weight Start Date: 06/20/22 Status: Ordered acitretin 10 mg oral capsule TAKE 1 CAPSULE EVERY OTHER DAY FOR NEXT 2 WEEKS THEN 1 CAPSULE DAILY Start Date: 05/17/22 Status: Ordered amLODIPine 5 mg oral tablet 1 tablet, By Mouth, Daily, # 30 tablet, 11 Refills, [facility] STORE 31964, 193, cm, 10/26/21 9:21:00 EDT,Height, 97.2, kg, 10/26/21 9:21:00 EDT, Dry Weight Start Date: 11/15/21 Status: Ordered baclofen 20 mg oral tablet 20 mg, 1, tablet, By Mouth, 4 times a day, # 120 tablet, Refills 5, Tot. Refills 5, Maintenance, 10/26/21 9:45:00 EDT, Route to Pharmacy Electronically, [facility]/pharmacy #[id number], 193, cm, 10/26/21 9:21:00 EDT, Height, 97.2, kg, 10/26/21 9:21:00 EDT, Dry Weight Start Date: 10/26/21 Status: Ordered clindamycin 150 mg oral capsule 3 capsule = 450 mg, By Mouth, 4 times a day, for 14 days, # 168 capsule, 0 Refills, Acute 06/21/22 12:43:00 EST, 06/07/22 12:43:00 EST, Capsule, [facility], Partial fill upon patient request if the prescription is for a schedule II opioi... Start Date: 06/07/22 Stop Date: 06/21/22 Status: Ordered Eliquis 5 mg oral tablet 1 tablet, By Mouth, 2 times a day, # 60 tablet, 11 Refills, 02/07/22 11:13:00 EDT, [facility]/pharmacy #[id number], 193, cm, 02/07/22 10:31:00 EDT, Height, [...] Replace Required Details, Route to Pharmacy Electronically, [email or web address] 89335, 193.04, cm, 06/07/22 13:41:00 EST, Height, 99.... Start Date: 06/11/22 Status: Ordered gabapentin 300 mg oral capsule 1, capsule, By Mouth, 3 times a day, # 90 capsule, Refills 5, Maintenance, 02/22/22 9:42:00 EDT, Route to Pharmacy Electronically, [email or web address] 52343, 193, cm, 02/07/22 10:31:00 EDT, Height, 97.2, kg, 10/26/21 9:21:00 EDT, Dry Weight Start Date: 02/22/22 Status: Ordered omeprazole 40 mg oral enteric coated capsule 1 capsule, By Mouth, Daily, # 30 capsule, 5 Refills, Maintenance, 02/22/22 9:43:00 EDT, [facility] ST[facility] 02194, 193, cm, 02/07/22 10:31:00 EDT, Height, 97.2, kg, 10/26/21 9:21:00 EDT, Dry Weight Start Date: 02/22/22 Status: Ordered Right ankle & foot orthosis Right ankle & foot orthosis, See Instructions, # 1 each, Refills 1, Tot. Refills 1, Maintenance, Please dispense 1 right ankle and foot othosis Dx: R29.898, R26.81, M25.373 Length of need: 99 months Number to fax to: [phone], 01/06/21 13:10:00 E... Start Date: 01/06/21 Status: Ordered scopolamine 1 mg/72 hr transdermal film, extended release 1 film, Topically, Every 72 hours, Apply to right mastoid bone, # 24 each, 1 Refills, Maintenance, 07/13/22 10:00:00 EST, [facility]/pharmacy #[id number], Partial fill upon patient request if the prescription is for a schedule II opioid drug., 1 film Topically Lucía... Start Date: 07/13/22 Status: Ordered tiZANidine 2 mg oral tablet See Instructions, TAKE 1 TABLET BY MOUTH TWICE A DAY, # 60 tablet, Refills 3, Maintenance, 06/11/2311:04:00 EST, Instructions Replace Required Details, Route to Pharmacy Electronically, [facility] STORE 88564, 193.04, cm, 06/07/22 13:41:00 EST, Height, 99.6... Start Date: 06/11/22 Status: Ordered tiZANidine 2 mg oral tablet See Instructions, 1 tablet by mouth twice a day, # 60 tablet, Refills 3, Tot. Refills 3, Maintenance, 06/08/22 14:32:00 EST, Instructions Replace Required Details, Route to Pharmacy Electronically, [facility]/pharmacy #[id number], Partial fill upon patient request... Start Date: 06/08/22 Status: Ordered transfer tub bench transfer tub bench, See Instructions, # 1 each, Refills 0, Tot. Refills 0, Maintenance, use as needed for PCP Jacobo Fuchs, 06/20/22 16:15:00 EST, Supply, 193.04, cm, 06/07/22 13:41:00 EST, Height, 99.6, kg, 06/06/22 18:00:00 EST, Dry Weight Start Date: 06/20/22 Status: Ordered Tylenol 325 mg oral tablet 650 mg, 2, tablet, By Mouth, Every 4 hours, PRN, # 120 tablet, Refills 0, Tot. Refills 0, Acute 05/21/23 19:50:00 EST, for pain, 05/20/22 19:50:00 EST, Route to Pharmacy Electronically, [facility]/pharmacy #[id number], Partial fill upon patient request if the [...] apex Confirmed Active N CP Care Management, Rn Clinical Carmen Elizabeth [phone] Confirmed Active Therapeutic drug monitoring Confirmed Active [...] HOSPITAL Resident Member Role: PCP Address: Address: [address] [place] [address] [place] [address]- [place] Name: Ally Boyd RN Position: S RN Member Role: Primary Care Nurse Name: Axel Savage RN Position: S RN Member Role: Primary Care Nurse Name: Filemon King RN Position: S RN Member Role: Primary Care Nurse Name: Glenys Fox RN Position: S RN Member Role: Primary Care Nurse Care Team Related Persons Name: BEVERLY REYNAGA Address: [address] [address] Name: AISLINN DE LA PAZ Address: [address] [address]
--- OUTSIDE RECORDS SUMMARY | 2023-02-03 22:27 | XMS_ITS | Continuity of Care Document ---
Author Name Unknown Organization [facility] Address [address] [place] [address]- Care Team Providers Care Accounting Manager Cpa Name Role Phone Judie Mills DO Primary Care Physician [place] [facility] [place] 02/21/21 - 03/23/[address] [address]- Allergies, Adverse Reactions, Alerts Substance Reaction Severity Status NKA Active Immunizations Given and Recorded Vaccine Date Status Refusal Reason tetanus/diphtheria/pertussis, acel(Tdap) 09/13/19 Recorded Medications amLODIPine 5 mg oral tablet 5 mg, 1, tablet, By Mouth, Daily, # 30 tablet, Refills 11, Tot. Refills 11, Maintenance, 10/31/20 12:56:00 EDT, Route to Pharmacy Electronically, [facility]/pharmacy #[id number], Partial fill upon patient requestif the prescription is for a schedule II opioid laura... Start Date: 10/31/20 Status: Ordered apixaban 5 mg oral tablet 1 tablet = 5 mg, By Mouth, 2 times a day, # 60 tablet, 11 Refills, Maintenance, 10/31/20 12:55:00 EDT, Tablet, [facility]/pharmacy #[id number], Partial fill upon patient request if [...] 8:13:00 EDT, Route to Pharmacy Electronically, [facility] STORE 76537, 187.6, cm, 10/19/20 9:25:00 EDT, Height, 101.4, kg, 08/27/20 1:59:00 EDT, Dry Weight Start Date: 11/22/20 Status: Ordered gabapentin 100 mg oral capsule 100 mg, 1, capsule, By Mouth, 3 times a day, # 90 capsule, Refills 11, Tot. Refills 11, Maintenance, 11/02/20 17:57:00 EDT, Route to Pharmacy Electronically, [facility]/pharmacy #[id number], Partial fill upon patient request if [...] Refills, Maintenance, 03/13/21 13:24:00 EDT, ECCapsule, [facility]/pharmacy #2071, Partial fill upon patient request if [...] 22:43:00 EDT, Route to Pharmacy Electronically, [facility]/pharmacy #[id number], Partial fill upon patient request if the prescription is for a schedule II opioid dr... Start Date: 03/15/21 Status: Ordered Right ankle & foot orthosis Right ankle & foot orthosis, See Instructions, # 1 each, Refills 1, Tot. Refills 1, Maintenance, Please dispense 1 right ankle and foot othosis Dx: R29.898, R26.81, M25.373 Length of need: 99 months Number to fax to: [phone], 01/06/21 13:10:00 E... Start Date: 01/06/21 Status: Ordered SEROquel 25 mg oral tablet 25 mg, 1, tablet, By Mouth, 2 times a day, # 60 tablet, Refills 3, Tot. Refills 3, Maintenance, 11/25/20 15:58:00 EDT, Route to Pharmacy Electronically, [facility]/pharmacy #[id number], Partial fill upon patient request if [...] Refills, Maintenance, 11/22/20 8:13:00 EDT, [facility], 187.6, cm, 10/19/20 9:25:00 EDT, Height, 101.4, [...]
--- OUTSIDE RECORDS SUMMARY | 2023-02-03 22:27 | XMS_ITS | Continuity of Care Document ---
Author Name Unknown Organization [facility] Address [address] [facility], [address] Floor, [address] [place] [address]- Care Team Providers Care Zigzag Elastic Attacher Name Role Phone Judie Mills DO Primary Care Physician [place] [facility] [place]20 [facility] [address], [address], [address] [place] [id number] Allergies, Adverse Reactions, Alerts Substance Reaction Severity Status NKA Active Medications amLODIPine 5 mg oral tablet 5 mg, 1, tablet, By Mouth, Daily, # 30 tablet, Refills 11, Tot. Refills 11, Maintenance, 10/31/20 12:56:00 EDT, Route to Pharmacy Electronically, [facility]/pharmacy #2071, Partial fill upon patient requestif the prescription is for a schedule II opioid laura... Start Date: 10/31/20 Status: Ordered apixaban 5 mg oral tablet 1 tablet = 5 mg, By Mouth, 2 times a day, # 60 tablet, 11 Refills, Maintenance, 10/31/20 12:55:00 EDT, Tablet, [facility]/pharmacy #[id number], Partial fill upon [...] 11/22/20 8:13:00 EDT, Route to Pharmacy Electronically, [facility] STORE 44507, 187.6, cm, 10/19/20 9:25:00 EDT, Height, 101.4, kg, 08/27/20 1:59:00 EDT, Dry Weight Start Date: 11/22/20 Status: Ordered gabapentin 100 mg oral capsule 100 mg, 1, capsule, By Mouth, 3 times a day, # 90 capsule, Refills 11, Tot. Refills 11, Maintenance, 11/02/20 17:57:00 EDT, Route to Pharmacy Electronically, [facility]/pharmacy #3118, Partial fill upon patient request if the [...] 11/25/20 15:58:00 EDT, Route to Pharmacy Electronically, [facility]/pharmacy #2187, Partial fill upon patient request if the [...] Refills, Maintenance, 11/22/20 8:13:00 EDT, [facility], 187.6, cm, 10/19/20 9:25:00 EDT, Height, 101.4, [...]
--- OUTSIDE RECORDS SUMMARY | 2023-02-03 22:27 | XMS_ITS | Continuity of Care Document ---
Author Name Unknown Organization [facility] Address [address] [place] [address]- Care Team Providers Care Wire Weaver Helper Name Role Phone Judie Mills DO Primary Care Physician [phone] [id number] Date(s): 12/08/20 - 04/12/[address] [address] Discharge Disposition: A-D/C Home Attending Physician: [...] 12:56:00 EDT, Route to Pharmacy Electronically, [facility]/pharmacy #[id number], Partial fill upon patient requestif the [...] 0 Refills, Maintenance, 11/25/20 16:11:00 EST, Gel, [facility]/pharmacy #2071, Partial fill upon patient request, 1 [...] 8:13:00 EDT, Route to Pharmacy Electronically, [facility] STORE 68476, 187.6, cm, 10/19/20 9:25:00 EDT, Height, 101.4, kg, 08/27/20 1:59:00 EDT, Dry Weight Start Date: 11/22/20 Status: Ordered gabapentin 100 mg oral capsule 100 mg, 1, capsule, By Mouth, 2 times a day, # 60 capsule, Refills 11, Tot. Refills 11, Maintenance, 04/03/21 14:15:00 EST, Route to Pharmacy Electronically, [facility]/pharmacy #[id number], note dose change, 193, cm, 03/15/21 16:10:00 EDT, Height, 104.5, kg, 10/0... Start Date: 04/03/21 Stop Date: 03/29/22 Status: Ordered gabapentin 300 mg oral capsule 300 mg, 1, capsule, By Mouth, Daily at bedtime, # 30 capsule, Refills 3, Tot. Refills 3, Maintenance, 04/03/21 14:16:00 EST, Route to Pharmacy Electronically, [facility]/pharmacy #[id number], Note bedtime dose change, 193, cm, 03/15/21 16:10:00 EDT, Height, 104.5,... Start Date: 04/03/21 Stop Date: 08/01/21 Status: Ordered metoclopramide 10 mg oral tablet, disintegrating 1 tablet = 10 mg, By Mouth, Every 8 hours, PRN Nausea & Vomiting, # 28 tablet, 0 Refills, Maintenance, 02/24/21 17:09:00 EDT, DIS Tablet, [facility]/pharmacy #2071, Partial fill upon patient [...] Refills, Maintenance, 03/13/21 13:24:00 EDT, ECCapsule, [facility]/pharmacy #2071, Partial fill upon patient [...] 22:43:00 EDT, Route to Pharmacy Electronically, [facility]/pharmacy #2071, Partial fill upon patient [...] need: 99 months Number to fax to: [phone], 01/06/21 13:10:00 E... Start Date: 01/06/21 Status: [...] tablet, 11 Refills, Maintenance, 11/22/20 8:13:00 EDT, [facility] ST[facility] 79415, 187.6, cm, 10/19/20 9:25:00 EDT, Height, 101.4, [...]
--- OUTSIDE RECORDS SUMMARY | 2023-02-03 22:27 | XMS_ITS | Continuity of Care Document ---
Author Name Unknown Organization [facility] Address [address] [place] [address]- Care Team Providers Care Shellfish Grower Name Role Phone Judie Mills DO Primary Care Physician [place] [facility] [place] [id number] Date(s): 04/03/21 - 05/03/[address] [address] Attending Physician: Sangeetha Latif Admitting Physician: AdmtrSangeetha Referring Physician: Admtr, Ar8 Allergies, Adverse Reactions, Alerts Substance Reaction Severity Status NKA Active Immunizations Given and Recorded Vaccine Date Status Refusal Reason tetanus/diphtheria/pertussis, acel(Tdap) 09/13/19 Recorded Medications amLODIPine 5 mg oral tablet 5 mg, 1, tablet, By Mouth, Daily, # 30 tablet, Refills 11, Tot. Refills 11, Maintenance, 10/31/20 12:56:00 EDT, Route to Pharmacy Electronically, [facility]/pharmacy #[id number], Partial fill upon [...] 11/22/20 8:13:00 EDT, Route to Pharmacy Electronically, [facility] STORE 91206, 187.6, cm, 10/19/20 9:25:00 EDT, Height, 101.4, kg, 08/27/20 1:59:00 EDT, Dry Weight Start Date: 11/22/20 Status: Ordered gabapentin 100 mg oral capsule 100 mg, 1, capsule, By Mouth, 2 times a day, # 60 capsule, Refills 11, Tot. Refills 11, Maintenance, 04/03/21 14:15:00 EST, Route to Pharmacy Electronically, [facility]/pharmacy #[id number], note dose change, 193, cm, 03/15/21 16:10:00 EDT, Height, 104.5, kg, 10/0... Start Date: 04/03/21 Stop Date: 03/29/22 Status: Ordered gabapentin 300 mg oral capsule 300 mg, 1, capsule, By Mouth, Daily at bedtime, # 30 capsule, Refills 3, Tot. Refills 3, Maintenance, 04/03/21 14:16:00 EST, Route to Pharmacy Electronically, [facility]/pharmacy #2071, Note bedtime dose change, 193, cm, 03/15/21 16:10:00 EDT, Height, 104.5,... Start Date: 04/03/21 Stop Date: 08/01/21 Status: Ordered metoclopramide 10 mg oral tablet, disintegrating 1 tablet = 10 mg, By Mouth, Every 8 hours, PRN Nausea & Vomiting, # 28 tablet, 0 Refills, Maintenance, 02/24/21 17:09:00 EDT, DIS Tablet, [facility]/pharmacy #2071, Partial fill upon [...] 5 Refills, Maintenance, 03/13/21 13:24:00 EDT, ECCapsule, [facility]/pharmacy #2071, Partial fill upon [...] 03/15/21 22:43:00 EDT, Route to Pharmacy Electronically, [facility]/pharmacy #[id number], Partial fill upon [...] need: 99 months Number to fax to: [phone], 01/06/21 13:10:00 E... Start Date: 01/06/21 Status: [...] tablet, 11 Refills, Maintenance, 11/22/20 8:13:00 EDT, [facility]ORE 79843, 187.6, cm, 10/19/20 9:25:00 EDT, Height, 101.4, [...]
--- OUTSIDE RECORDS SUMMARY | 2023-02-03 22:27 | XMS_ITS | Continuity of Care Document ---
Author Name Unknown Organization [facility] Address [address] [place] [address]- Care Team Providers Care Criminal Justice Lawyer Name Role Phone Derek Tomas MD Primary Care Physician En[place] [facility] [place] Date(s): 05/29/22 - 06/28/[address] [address]- Allergies, Adverse Reactions, Alerts No Known Allergies [...] # 30 tablet, 11 Refills, [facility] ST[facility] [address]32, 193, cm, 10/26/21 9:21:00 EDT,Height, 97.2, kg, 10/26/21 9:21:00 EDT, Dry Weight Start Date: 11/15/21 Status: Ordered baclofen 20 mg oral tablet 20 mg, 1, tablet, By Mouth, 4 times a day, # 120 tablet, Refills 5, Tot. Refills 5, Maintenance, 10/26/21 9:45:00 EDT, Route to Pharmacy Electronically, [facility]/pharmacy #2071, 193, cm, 10/26/21 9:21:00 EDT, Height, 97.2, kg, 10/26/21 9:21:00 EDT, Dry Weight Start Date: 10/26/21 Status: Ordered Eliquis 5 mg oral tablet 1 tablet, By Mouth, 2 times a day, # 60 tablet, 11 Refills, 02/07/22 11:13:00 EDT, [facility]/pharmacy #2071, 193, cm, 02/07/22 10:31:00 EDT, [...] Replace Required Details, Route to Pharmacy Electronically, [facility] 65012, 193.04, cm, 06/07/22 13:41:00 EST, Height, 99.... Start Date: 06/11/22 Status: Ordered gabapentin 300 mg oral capsule 1, capsule, By Mouth, 3 times a day, # 90 capsule, Refills 5, Maintenance, 02/22/22 9:42:00 EDT, Route to Pharmacy Electronically, [facility] 54559, 193, cm, 02/07/22 10:31:00 EDT, Height, 97.2, kg, 10/26/21 9:21:00 EDT, Dry Weight Start Date: 02/22/22 Status: Ordered omeprazole 40 mg oral enteric coated capsule 1 capsule, By Mouth, Daily, # 30 capsule, 5 Refills, Maintenance, 02/22/22 9:43:00 EDT, [facility] 59064, 193, cm, 02/07/22 10:31:00 EDT, Height, 97.2, kg, 10/26/21 9:21:00 EDT, Dry Weight Start Date: 02/22/22 Status: Ordered Right ankle & foot orthosis Right ankle & foot orthosis, See Instructions, # 1 each, Refills 1, Tot. Refills 1, Maintenance, Please dispense 1 right ankle and foot othosis Dx: R29.898, R26.81, M25.373 Length of need: 99 months Number to fax to: [phone], 01/06/21 13:10:00 E... Start Date: 01/06/21 Status: Ordered scopolamine 1 mg/72 hr transdermal film, extended release 1 film, Topically, Every 72 hours, Apply to right mastoid bone, # 24 each, 1 Refills, Maintenance, 07/13/22 10:00:00 EST, [facility]/pharmacy #2071, Partial fill upon patient request if the prescription is for a schedule II opioid drug., 1 film Topically Lucía... Start Date: 07/13/22 Status: Ordered tiZANidine 2 mg oral tablet See Instructions, TAKE 1 TABLET BY MOUTH TWICE A DAY, # 60 tablet, Refills 3, Maintenance, 06/11/2311:04:00 EST, Instructions Replace Required Details, Route to Pharmacy Electronically, [facility] STORE 57274, 193.04, cm, 06/07/22 13:41:00 EST, Height, 99.6... Start Date: 06/11/22 Status: Ordered tiZANidine 2 mg oral tablet See Instructions, 1 tablet by mouth twice a day, # 60 tablet, Refills 3, Tot. Refills 3, Maintenance, 06/08/22 14:32:00 EST, Instructions Replace Required Details, Route to Pharmacy Electronically, [facility]/pharmacy #2071, Partial fill upon patient request... [...] EST, Route to Pharmacy Electronically, [facility]/pharmacy #5471, Partial fill upon patient request if the [...] apex Confirmed Active N CP Care Management, Art Gilder Carmen Clara [phone] Confirmed Active Therapeutic drug monitoring Confirmed Active Peripheral neuropathy Confirmed Active Spasticity Confirmed Active Tobacco dependence Confirmed Active Social History Social History Type Response Smoking Status 5-9 cigarettes (betw een 1/4 to 1/2 pack)/day in last 30 days entered on: 05/16/22 Sex Patient Care team information Care Team Personnel Name: Areli Pittman RN Position: [facility] ED RN W/OE and Tasks Member Role: Primary Care Nurse Name: Bettye Carney Position: S RN Member Role: Primary Care Nurse Name: Derek Tomas MD Position: [facility] Resident Member Role: PCP Address: Address: [address] [place] [address]- Name: Ally Boyd RN Position: S RN Member Role: Primary Care Nurse Name: Axel Savage RN Position: S RN Member Role: Primary Care Nurse Name: Filemon King RN Position: S RN Member Role: Primary Care Nurse Name: Glenys Fox RN Position: S RN Member Role: Primary Care Nurse Care Team Related Persons Name: JUHI BEVERLY Address: home [address] [place] [address] Name: AISLINN DE LA PAZ Address: [address] [address]
--- OUTSIDE RECORDS SUMMARY | 2023-02-03 22:27 | XMS_ITS | Continuity of Care Document ---
Author Name Unknown Organization [facility] Address [address] [place] [address] [address] [place] [address]- Care Team Providers Care Glass Melt Operator Name Role Phone Derek Tomas MD Primary Care Physician Encounter [facility] [place] Date(s): 07/20/22 - 08/19/22 [facility] [address] [place], [place] [address] Allergies, Adverse Reactions, Alerts No Known [...] Daily, # 30 tablet, 11 Refills, [facility] STORE 88408, 193, cm, 10/26/21 9:21:00 EDT,Height, 97.2, kg, [...] 15:25:00 EDT, [facility] STORE 59408, 193.04, cm, 07/23/22 14:07:00 EDT, Height, 99.6, [...] Maintenance, 08/13/22 15:55:00 EDT, Route toPharmacy Electronically, [facility] STORE 02364, 193.04, cm, 07/23/22 14:07:00 EDT, Height, 99.6, kg, 06/06/22 18:00:00 EST, Dry Weight Start Date: 08/13/22 Status: Ordered gabapentin 300 mg oral capsule 1, capsule, By Mouth, 3 times a day, # 90 capsule, Refills 5, Maintenance, 02/22/22 9:42:00 EDT, Route to Pharmacy Electronically, [facility] STORE 52695, 193, cm, 02/07/22 10:31:00 EDT, Height, 97.2, [...] Refills, Maintenance, 07/23/22 14:17:00 EDT, ER Tablet, [facility]/pharmacy #1130, Partial fill [...] need: 99 months Number to fax to: [phone], 01/06/21 13:10:00 E... Start Date: 01/06/21 Status: [...] 1 Refills, Maintenance, 07/13/22 10:00:00 EST, [facility]/pharmacy #2071, Partial fill upon patient request if the prescription is for a schedule II opioid drug., 1 film Topically Lucía... Start Date: 07/13/22 Status: Ordered tiZANidine 2 mg oral tablet See Instructions, TAKE 1 TABLET BY MOUTH three times A DAY, # 90 tablet, Refills 6, Tot. Refills 6,Maintenance, 07/04/22 12:44:00 EST, Instructions Replace Required Details, Route to Pharmacy Electronically, [facility]/pharmacy #1130, 193.04, cm, 07/04/22... Start Date: [...] [facility], Partial fill upon patient request if the [...] apex Confirmed Active N CP Care Management, Certified Wellness Program Manager Carmen Elizabeth [phone] Confirmed Active Therapeutic drug monitoring Confirmed Active Peripheral neuropathy Confirmed Active Spasticity Confirmed Active Tobacco dependence Confirmed Active Social History Social History Type Response Smoking Status 5-9 cigarettes (betw een 1/4 to 1/2 pack)/day in last 30 days entered on: 05/16/22 Sex Patient Care team information Care Team Personnel Name: Areli Pittman RN Position: [facility] ED RN W/OE and Tasks Member Role: Primary Care Nurse Name: Bettye Carney Position: [facility] RN Member Role: Primary Care Nurse Name: Derek Tomas MD Position: [facility] Resident Member Role: PCP Address: Address: [address] [place] [address]- Name: Ally Boyd RN Position: [facility] RN Member Role: Primary Care Nurse Name: Axel Savage RN Position: [facility] RN Member Role: Primary Care Nurse Name: Filemon King RN Position: [facility] RN Member Role: Primary Care Nurse Name: Glenys Fox RN Position: [facility] RN Member Role: Primary Care Nurse Care Team Related Persons Name: BEVERLY REYNAGA Address: home [address] [place] [address] Name: AISLINN DE LA PAZ Address: [place] [address] [place] [address]
--- OUTSIDE RECORDS SUMMARY | 2023-02-03 22:27 | XMS_ITS | Continuity of Care Document ---
Author Name Unknown Organization [facility] ter Address [address] [place] [id number] Care Team Providers Care Budget Assistant Name Role Phone Derek Tomas MD Primary Care Physician Encounter [facility] Date(s): 06/05/22 - 06/07/[address] [address] Discharge Disposition: A-D/C Home Attending Physician: Scotty Carmichael DO Admitting Physician: Nesha PAGAN, Estrellita Matamoros Referring Physician: Not on Staff, Referring MD [...] Mouth, Daily, # 30 tablet, 11 Refills, [facility] [id number], 193, cm, 10/26/21 9:21:00 EDT,Height, 97.2, kg, 10/26/21 9:21:00 EDT, Dry Weight Start Date: 11/15/21 Status: Ordered baclofen 10 mg oral tablet 20 mg, Tablet, By Mouth, 06/07/22 13:00:00 EST Start Date: 06/07/22 Stop Date: 06/07/22 Status: Completed baclofen 20 mg oral tablet 20 mg, 1, tablet, By Mouth, 4 times a day, # 120 tablet, Refills 5, Tot. Refills 5, Maintenance, 10/26/21 9:45:00 EDT, Route to Pharmacy Electronically, [facility]/pharmacy #[id number], 193, cm, 10/26/21 9:21:00 EDT, Height, 97.2, kg, 10/26/21 9:21:00 EDT, Dry Weight Start Date: 10/26/21 Status: Ordered clindamycin 150 mg oral capsule 3 capsule = 450 mg, By Mouth, 4 times a day, for 14 days, # 168 capsule, 0 Refills, Acute 06/21/22 12:43:00 EST, 06/07/22 12:43:00 EST, Capsule, [facility], Partial fill upon patient request if the prescription is for a schedule II opioi... Start Date: 06/07/22 Stop Date: 06/21/22 Status: Ordered Eliquis 5 mg oral tablet 1 tablet, By Mouth, 2 times a day, # 60 tablet, 11 Refills, 02/07/22 11:13:00 EDT, [facility]/pharmacy #[id number], 193, cm, 02/07/22 10:31:00 EDT, Height, [...] 02/22/22 9:42:00 EDT, Route to Pharmacy Electronically, [facility] [id number], 193, cm, 02/07/22 10:31:00 EDT, Height, 97.2, kg, 10/26/21 9:21:00 EDT, Dry Weight Start Date: 02/22/22 Status: Ordered omeprazole 40 mg oral enteric coated capsule 1 capsule, By Mouth, Daily, # 30 capsule, 5 Refills, Maintenance, 02/22/22 9:43:00 EDT, [facility] [id number], 193, cm, 02/07/22 10:31:00 EDT, Height, 97.2, kg, 10/26/21 9:21:00 EDT, Dry Weight Start Date: 02/22/22 Status: Ordered oxyCODONE 5 mg oral tablet 5 mg, Tablet, By Mouth, Every 6 hours, PRN for Pain , Moderate, Routine, 06/05/22 4:28:00 EST Start Date: 06/05/22 Stop Date: 06/08/22 Status: Discontinued Right ankle & foot orthosis Right ankle & foot orthosis, See Instructions, # 1 each, Refills 1, Tot. Refills 1, Maintenance, Please dispense 1 right ankle and foot othosis Dx: R29.898, R26.81, M25.373 Length of need: 99 months Number to fax to: [phone], 01/06/21 13:10:00 E... Start Date: 01/06/21 Status: Ordered scopolamine 1 mg/72 hr transdermal film, extended release 1 film, Topically, Every 72 hours, Apply to right mastoid bone, # 24 each, 1 Refills, Maintenance, 07/13/22 10:00:00 EST, [facility]/pharmacy #[id number], Partial fill upon patient request if the prescription is for a schedule II opioid drug., 1 film Topically Lucía... Start Date: 07/13/22 Status: Ordered tiZANidine 2 mg oral tablet See Instructions, 1 tablet by mouth twice a day, # 60 tablet, Refills 3, Tot. Refills 3, Maintenance, 12/13/21 16:11:00 EDT, Instructions Replace Required Details, Route to Pharmacy Electronically, [facility]/pharmacy #[id number], Partial fill upon patient request... Start Date: 12/13/21 Status: Ordered Tylenol 325 mg oral tablet 650 mg, 2, tablet, By Mouth, Every 4 hours, PRN, # 120 tablet, Refills 0, Tot. Refills 0, Acute 05/21/23 19:50:00 EST, for pain, 05/20/22 19:50:00 EST, Route to Pharmacy Electronically, [id number], Partial fill upon patient request if the [...] thrombus of cardiac apex Confirmed Active [facility] Care Management, Broadcast Operations Director Carmen Elizabeth [phone] Confirmed Active Therapeutic drug monitoring Confirmed Active Peripheral neuropathy Confirmed Active Spasticity Confirmed Active Tobacco dependence Confirmed Active Results Radiology Reports * Exam Date Time Procedure Performing Provider Status 06/04/22 11:[address] Abd/Pelvis W/ IV + Oral Contrast Mendez Barba; Auth (Verified) Notes: (CT Abd/Pelvis W/ IV + Oral Contrast) Reason For Exam: hydradenitis of buttock getting worse;Other: RESULT: CT Abd/Pelvis W/ IV + Oral Contrast CT Abd/Pelvis W/ IV + Oral Contrast REASON: hydradenitis of buttock getting worse Hx of Present Illness: back abscess; TECHNIQUE: Spiral CT through the abdomen and pelvis with IV contrast formatted in 3 planes. 100 cc of Omnipaque 300 was administered intravenously. This study was performed with oral contrast. Weight-based protocol using automatic tube modulation was used to optimize exposure parameters. CTDIvol Body: 15.40 mGy, DLP Body: 856 mGy*cm. COMPARISON: CT abdomen pelvis 05/20/2022. FINDINGS: Home Care Associate View Findings, Lines and Tubes: None. Visualized Chest: Lung bases are clear. No pleural effusion. The heart is normal in size. No pericardial effusion. Diaphragm: Normal. Liver: Normal. Gallbladder: No CT evidence of gallbladder pathology. Bile ducts: No biliary ductal dilation. Spleen: Normal. Pancreas: Normal. Adrenal glands: Normal. Kidneys and ureters: No hydronephrosis, stones, or suspicious masses. Simple appearing right parapelvic cyst, requiring no dedicated follow up. Bladder: Normal. Reproductive organs: Unremarkable. Stomach, small bowel, and large bowel: Unremarkable stomach. Small bowel loops are not dilated, no evidence of obstruction. Oral contrast transit through multiple small bowel loops. Appendix: Normal (image 58 series 202). Peritoneum and retroperitoneum: No ascites or pneumoperitoneum. No omental or mesenteric lesions. Lymph nodes: Unchanged bilateral inguinal nodes measuring up to 2.1 cm short axis on the right. Blood vessels: Normal. No aneurysm. No evidence of venous thrombosis. Abdominal and pelvic wall: Similar appearing extensive bilateral heterogeneous soft tissue thickening of the bilateral glutealregions with replacement of the subcutaneous fat. On the right this measures up to 2 cm in thickness, similar to prior. There are numerous areas of low attenuation throughout the thickened skin and subcutaneous phlegmon, although unclear may represent a drainable collection. There is a drain in theright gluteal subcutaneous tissue. Bones: No acute abnormality. Unchanged severe degenerative changes of the left hip and proximal femur fixation. IMPRESSION: Similar-appearing extensive superficial soft tissue thickening of the bilateral gluteal regions, right more extensive than left. There are diffuse areas of low attenuation within the subcutaneous phlegmon although unclear if anyrepresent a discrete drainable collection. Reactive bilateral inguinal adenopathy. I have personally reviewed the images and I agree with this report. WSN: [id number] Ordering Physician: Ted Diaz Dictated By: Jose Esquivel DO Dictated Date/Time: 06/05/22 0:00 am Reviewed By: Ronald Hogan MD Signed By: Ronald Hogan MD Signed Date/Time: 06/05/22 0:05 am Transcribed By: ZEHRA Transcribed Date/Time: 06/04/22 11:59 pm Vital Signs Most recent to oldest [Reference Range]: 1 2 3 Height 193.04 cm (06/07/22 1:41 PM) 193.04 cm (06/07/22 9:27 AM) 193.04 cm (06/06/22 7:30 PM) Weight 99.6 kg (06/06/22 10:26 AM) 99.6 kg (06/06/22 10:21 AM) Oxygen Saturation [94-100 %] 97 % (06/07/22 1:41 PM) 99 % (06/07/22 9:27 AM) 100 % (06/06/22 7:30 PM) Pulse Rate [55-90 bpm] 55 bpm (06/07/22 1:41 PM) 67 bpm (06/07/22 9:27 AM) 104 bpm *H* (06/06/22 7:30 PM) Body Mass Index [18.5-24.99 kg/m2] 26.73 kg/m2 *H* (06/06/22 10:26 AM) 26.73 kg/m2 *H* (06/06/22 10:21 AM) Blood Pressure [90-138/55-84 mm Hg] 127/56mm Hg (06/07/22 1:41 PM) 125/57mm Hg (06/07/22 9:27 AM) 119/55mm Hg (06/06/22 7:30 PM) Respiratory Rate [16-30 br/min] 18 br/min (06/07/22 1:41 PM) 17 br/min (06/07/22 12:51 PM) 18 br/min (06/07/22 10:40 AM) Temperature [96.8-100.4 DegF] 98.6 DegF (06/07/22 1:41 PM) 98.6 DegF (06/07/22 9:27 AM) 99.0 DegF (06/06/22 7:30 PM) Mode of Delivery (Oxygen) Room air (06/07/22 1:41 PM) Room air (06/07/22 9:27 AM) Room air (06/06/22 7:30 PM) Blood pressure sites Arm, left (06/07/22 1:41 PM) Arm, left (06/06/22 7:30 PM) Arm, left (06/06/22 3:44 PM) Temperature Route Oral (06/07/22 1:41 PM) Oral (06/07/22 9:27 AM) Oral (06/06/22 7:30 PM) Dry Weight 99.6 kg (06/06/22 10:26 AM) 99.6 kg (06/06/22 10:21 AM) Weight Obtained Via Bed scale (06/06/22 10:26 AM) Bed scale (06/06/22 10:21 AM) Dry Weight Obtained Via Bed scale (06/06/22 10:21 AM) Social History Social History Type Response Smoking Status 5-9 cigarettes (betw een 1/4 to 1/2 pack)/day in last 30 days entered on: 05/16/22 Sex History and physical note * Shayan Pack MD: PERFORM Event Display: History and Physical Hospital Authored Date: Patient: ??DAVID MCQUEEN ? Age:??36 Years?Sex:??Male?:??1985?? Chief Complaint/Reason for Consultation Worsening buttock abscess History of Present Illness 36-year-old male with past medical history significant for CVA secondary to cardiac thrombus currently anticoagulated with Eliquis, spasticity, Hypertension, iron deficiency anemia, GERD, psoriasis and peripheral neuropathy ?? 05/17: Admitted to general surgery service for worsening gluteal pain.?? CT scan showed diffuse skin thickening of the bilateral gluteal regions with subcutaneous fat stranding but no discrete abscess or soft tissue gas.?? Exam shows hidradenitis suppurativa changes in the bilateral buttocks right larger than left.?? Multiple draining sinuses with fibrinous and purulent drainage are noted.?? Areas of opening were probed with an abscess pocket noted in the right inferior and right lateral buttock.?? Incision and drainage of this collection were done and a Hosford drain was left to allow for drainage.?? Patient empirically placed on p.o. Bactrim. Deep wound cultures grew Streptococcus constellatus. 05/18: Discharged on Bactrim DS twice daily x6 days 05/20: Presented to the emergency room for right buttock pain.?? CT scan showed slightly worsening cellulitic changes with possible early fluid collection.?? Surgery saw him in the emergency room and was able to perform an I&D.?? Bactrim was discontinued and patient was placed on?? Augmentin twice daily x7 days 06/04: Patient presented to the general surgery office with overall worsening presentation and patient was sent to the emergency room. ?? ER course: Vital signs: Normal Exam multiple areas of draining purulent material in the buttocks. ?? Work-up: CBC: No leukocytosis, chronic stable normocytic anemia, improved thrombocytosis Chemistry: Normal Superficial wound gram stain and culture from the left buttock: Pending COVID: Negative ?? CT abdomen/pelvis: Similar-appearing extensive superficial soft tissue thickening of the bilateral gluteal regions, right more extensive than left. There are diffuse areas of low attenuation within the subcutaneous phlegmon although unclear if anyrepresent a discrete drainable collection. Reactive bilateral inguinal adenopathy. ?? Interventions performed: Acetaminophen 650 mg p.o. x2 Ibuprofen 600 mg p.o. x1 Oxycodone 10 mg ER p.o. x1 Empiric vancomycin ?? On my evaluation in the emergency room: Vital signs: Normal Patient complaining of severe buttock pain Review of Systems Constitutional: No weight loss, fever, chills HEENT: No visual loss. No hearing loss, congestion, runny nose , sore throat. Skin: ButtockPurulent drainage and pain worsening Cardiovascular: No chest discomfort. No palpitations. Respiratory: No shortness of breath, cough. Gastrointestinal: No nausea, vomiting or diarrhea. No abdominal pain or blood in stool. Genitourinary: No burning micturition. No urinary frequency or incontinence. Musculoskeletal: No muscle pain, back pain, joint pain or stiffness. Endocrine: No reports of sweating. No cold or heat intolerance. No polyuria or polydipsia. Hematologic: No bleeding or bruising. Immunologic/Allergic: No itchy eyes/Itchy nose/Sneezing/Watery eyes Lymphatics: No enlarged lymph nodes. Neurologic: No headache, unilateral weakness, numbness or tingling in the extremities. No change inbowel or bladder control. Psychiatric: No depression or anxiety. Objective ? Vital Signs?? Temperature: 98.5 DegF (06/05/22 03:13:00) Temperature Route: Oral (06/05/22 03:13:00) Pulse Rate: 65 bpm (06/05/22 03:13:00) Respiratory Rate: 20 br/min (06/05/22 03:13:00) Systolic Blood Pressure:??139 mm Hg??High (06/05/22 03:13:00) Diastolic Blood Pressure: 79 mm Hg (06/05/22 03:13:00) Blood pressure sites: Arm, left (06/05/22 03:13:00) Mean Arterial Pressure: 99 mm Hg (06/05/22 03:13:00) Pulse Pressure: 60 mm Hg (06/05/22 03:13:00) Oxygen Saturation: 97 % (06/05/22 03:13:00) Mode of Delivery (Oxygen): Room air (06/05/22 03:13:00) ? Physical Exam GENERAL:??None acutely ill-appearing, no acute cardiorespiratory distress HEAD: Normocephalic, atraumatic. EYES: No conjunctival injection. No scleral icterus. [place] conjunctiva EARS: No tenderness, no discharge. NOSE: No asymmetry. MOUTH AND THROAT: No oral thrush.?? Moist mucous membranes NECK: No JVP elevation, No masses. Range of motion full. HEART: Regular rate and rhythm, no murmurs, no clicks, no rubs , no gallops. CHEST: Symmetric with respirations. No accessory muscle use, No wheezes, crackles. ABDOMEN: Normoactive bowel sounds. No tenderness or guarding. No increase in liver or spleen size. No masses palpable. GENITOURINARY: No CV angle tenderness. No suprapubic tenderness. No Herrmann catheter in place. Rectal exam is deferred. MUSCULOSKELETAL: Range of motion full in all extremities , no obvious deformity , no increased warmth , no effusion VASCULAR: All pulses brisk and equal, Capillary refill time < 2sec LYMPHATIC: No cervical, axillary or inguinal adenopathy. Skin: Buttock R>L: ??multiple areas ??drainage draining purulence,?? fluctuance, too tender to palpate, multiple scars and skin discoloration?? NEUROLOGIC: No deficit on gross motor and sensory exam Alert and oriented to person, place, time, and situation Psychiatric: No delusions, hallucinations, SI or HI Assessment/Plan Assessment:??36-year-old male with past medical history significant for CVA secondary to cardiac thrombus currently anticoagulated with Eliquis, spasticity, Hypertension, iron deficiency anemia, GERD, psoriasis and peripheral neuropathy. He has been diagnosed of buttock hidradenitis suppurativa didnot improve with multiple incision and drainage, Bactrim then Augmentin. ?? Hidradenitis suppurativa (L73.2):? Abscess of buttock (L02.31):? - Admitted to the general medical floors -Follow-up on wound cultures - will continue to provide fluid resuscitation with LR at 125 ml/hr -Continue vancomycin dosed based on our pharmacy protocol ??- will provide analgesics (Tylenol + p.o. oxycodone), antipyretics (Tylenol), antiemetics (Zofran) and laxatives (combination docusate + senna ) as needed -Official surgery consult pending for further exploration, I and D of the gluteal abscess ?? Chronic ischemic left ICA stroke (I69.30):? 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 Continue Eliquis ?? Spasticity (R25.2):? Continue baclofen + tizanidine Continue scopolamine ?? Hypertension (I10):? Continue amlodipine ?? GERD (gastroesophageal reflux disease) (K21.9):? Switch omeprazole to pantoprazole while in-house ?? Iron deficiency anemia (D50.9):? Continue ferrous sulfate ?? Peripheral neuropathy (G62.9):? Continue gabapentin ?? Depression (F32.A):? No longer taking fluoxetine ?? VTE Prophylaxis:? Continue Eliquis ?VTE Prophylaxis Assessment:??VTE Prophylaxis Ordered ?? Code Status:? Full code ?Order Code Status:??Code Status Ordered ?? Ongoing Medical Necessity:? Systemic antimicrobials Definitive source Control of infection: Surgical intervention ?? Discharge Planning:? Anticipate at least 2 night hospital stay ?? The above document was completed by performing history, physical examination, reconciling multiple medications, review of laboratory, imaging All assessment and plan were discussed with the patient and requested feedback with attempts to maximize understanding for the care provided. This required approximately 70 minutes to complete. ? Histories Allergies Allergies ?(Active and Proposed Allergies Only) NKA? (Severity: Unknown severity, Onset: Unknown) ? Past Medical History/Problem List Active Problems??(14) [facility], Broadcast Operations Director Carmen Elizabeth [phone] Chronic ischemic left ICA stroke Depression GERD (gastroesophageal reflux disease) Hidradenitis suppurativa Hypertension Insomnia Iron deficiency anemia Mural thrombus of cardiac apex Peripheral neuropathy Spasticity Therapeutic drug monitoring Tobacco dependence Wound of buttock ? Past Surgical History Operative procedure on hip: 2000 ? Social History Alcohol Details:??Use: Current. ??Other: 10 drinks per week. Substance Abuse Details:??Use: Current. ??Type: Marijuana. Tobacco Details:??Use: 5-9 cigarettes (between 1/4 to 1/2 pack)/day in last 30 days. Electronic Cigarette/Vaping Details:??Electronic Cigarette Use: Never. ? Family History Mother: Asthma Brother: Asthma ? Medications Home Medications Acetaminophen (Tylenol 325 mg oral tablet)?650?Milligram?2?tablet?By Mouth?Every 4 hours?as needed?for pain Acitretin (acitretin 10 mg oral capsule)?TAKE 1 CAPSULE EVERY OTHER DAY FOR NEXT 2 WEEKS THEN 1 CAPSULE DAILY Amlodipine (amLODIPine 5 mg oral tablet)?1?tab(s)?By Mouth?Daily apixaban (Eliquis 5 mg oral tablet)?1?tab(s)?By Mouth?2 times a day Baclofen (baclofen 20 mg oral tablet)?20?Milligram?1?tablet?By Mouth?4 times a day Durable Medical Equipment (walker with platform attached)?See Instructions?Please dispense 1 (one) walker with attached platformHt: 187.6cmWt: 101.4kgDx: History of stroke - Z86.73, Right-sidedweakness - R53.1,Spasticity due to old stroke - I69.398Length of need: 99months Durable Medical Equipment (Right ankle & foot orthosis)?See Instructions?Please dispense 1 right ankle and foot othosisDx: R29.898, R26.81, M25.373Length of need: 99 monthsNumber to fax to:[phone] Ferrous Sulfate (ferrous sulfate 325 mg oral tablet)?1?tab(s)?325?Milligram?By Mouth?Daily?as needed?as needed Gabapentin (gabapentin 300 mg oral capsule)?1?capsule?By Mouth?3 times a day Omeprazole (omeprazole 40 mg oral enteric coated capsule)?1?capsule?By Mouth?Daily Scopolamine (scopolamine 1 mg/72 hr transdermal film, extended release)?1?Film?Topically?Every 72 hours?Apply to right mastoid bone Tizanidine (tiZANidine 2 mg oral tablet)?See Instructions?1 tablet by mouth twice a day ? Results ?? Test Name Test Result Date/TimeWBC 9.7 k/mm3 06/04/2022 14:16 EST Hgb 9.3 Gm/dL (Low) 06/04/2022 14:16 EST Hct 29.8 % (Low) 06/04/2022 14:16 EST Platelet Count 559 k/mm3 (High) 06/04/2022 14:16 EST Sodium 139 mmol/L 06/04/2022 14:16 EST Potassium 3.9 mmol/L 06/04/2022 14:16 EST Chloride 102 mmol/L 06/04/2022 14:16 EST Bicarbonate Level 27 mmol/L 06/04/2022 14:16 EST Anion Gap 10 06/04/2022 14:16 EST Glucose Level 107 mg/dL (High) 06/04/2022 14:16 EST BUN 11 mg/dL 06/04/2022 14:16 EST Creatinine-Blood 0.9 mg/dL 06/04/2022 14:16 EST Estimated GFR Creatinine 108 ML/MIN/1.73 M2 06/04/2022 14:16 EST COVID-19 by RT-PCR NEGATIVE 06/05/2022 02:22 EST EKG study * Event Display: ECG 12-Lead Authored Date: Please click on pdf link to open report * Event Display: ECG 12-Lead Authored Date: Ventricular Rate: 45 BPM Atrial Rate: 45 BPM P-R Interval: 172 ms QRS Duration: 96 ms Q-T Interval: 464 ms QTC Calculation(Bazett): 401 ms P [place]: 43 degrees R [place]: -16 degrees T [place]: -4 degrees Sinus bradycardia Otherwise normal ECG When compared with ECG of 20-FEB-2021 13:19, No significant change was found Confirmed by KIMBERLY PAGAN SRUTHI ([id number]) on 06/06/2022 3:48:15 PM [place]: KIMBERLY PAGAN,[facility] Progress note * Júnior BUSTAMANTE, Edwige: MODIFY, SIGN, VERIFY, PERFORM, MODIFY Event Display: Progress Note Hospital Authored Date: Patient: DAVID MCQUEEN Age: 36 years Sex: Male : 1985 Associated Diagnoses: None Author: Júnior BUSTAMANTE, Edwige Findings Problem Related to Alteration in Comfort : Alteration in Comfort/new 06/07/2022 10:00 EST Alteration in Comfort Related to Disease process Goals & Outcomes: Comfort Pt will report acceptable level of comfort & pain control, Pt will state importance of adhering to pain strategy regime, Pt will demonstrate necessary skills to manage pain, Non-verbal indicators will indicate comfort/pain control Interventions Implemented: Comfort Assess pain using appropriate pain scale/tools, Assess aggravating factors & prevent them accordingly, Assess alleviating factors & promote them accordingly BH Goals/Interventions, Comfort Yes Comfort, Problem Start 06/05/2022 18:02 Reviewed plan with, Comfort Patient Patient Progression, Comfort Pt progressing according to plan Comfort, Problem Ongoing Yes . Alteration in Integumentary : Alteration in Integumentary/new 06/07/2022 10:00 EST Alteration in Integumentary Related to Other: hidradenitis suppirativa Goals & Outcomes, Integumentary Nutritional intake is adequate for metabolic needs, Pt will maintain adequate fluid & nutritional balance, Pt will maintain intact skin integrity, Wound will progress towards healing Interventions, Integumentary Cleanse all wounds with Normal Saline, Encourage & assist pt to change position frequently, Encourage & assist with range of motion exercises, Ensure relief modesare on mattress surface & utilized, Increase turning frequency if red or blanched areas appear,Interdisciplinary consults as appropriate, Keep bed as flat as tolerated to reduce shearing, Keep linen clean, dry and wrinkle free, Keep skin clean & dry, Minimize friction, shear and moisture, Monitor reddened areas for continued or increasing reddness, Record extent of impaired skin integrity, Relieve pressure off bony areas, Reposition pt off reddened areas, Teach Pt/caregiver s/s of infection, Teach Pt/S.O. risks of & measures to prevent skin breakdown Goals/Interventions, Integumentary Yes Integumentary, Problem Start 06/05/2022 18:04 Reviewed plan with, Integumentary Patient Patient Progression, Integumentary Pt progressing according to plan . Evaluation pt a&ox3. VSS. c/o 10/10 pain to the buttocks, given oxycodone and tylenol with moderate effect. Pt has muscle spasticity, R side is numb and flaccid. Expressive aphasia noted. Up to bathroom with 2 assist using cane with unsteady gait. When pt ambulated to bathroom, upon changing his brief, L and R buttock lesions pouring blood all over the bathroom floor and pt's legs and feet, saturating towels. pressure and abd pads placed over lesions, provider notified and up to see pt. Hosford drainsin place. 1332- Pt transferred to [facility] discharge unit for anticipated discharge. Report given to Britta. * Mark Lynn RN: PERFORM, SIGN, VERIFY Event Display: Progress Note Hospital Authored Date: [id number] Patient: DAVID MCQUEEN Age: 36 years Sex: Male : 1985 Associated Diagnoses: None Author: Mark Lynn RN Findings Problem Related to Alteration in Comfort : Alteration in Comfort/new 06/07/2022 1:00 EST Alteration in Comfort Related to Disease process Goals & Outcomes: Comfort Pt will report acceptable level of comfort & pain control, Pt will state importance of adhering to pain strategy regime, Pt will demonstrate necessary skills to manage pain, Non-verbal indicators will indicate comfort/pain control Interventions Implemented: Comfort Assess pain using appropriate pain scale/tools, Assess aggravating factors & prevent them accordingly, Assess alleviating factors & promote them accordingly Goals/Interventions, Comfort Yes Comfort, Problem Start 06/05/2022 18:02 Reviewed plan with, Comfort Patient Patient Progression, Comfort Pt progressing according to plan Comfort, Problem Ongoing Yes . Alteration in Integumentary : Alteration in Integumentary/new 06/07/2022 1:00 EST Alteration in Integumentary Related to Other: hidradenitis suppirativa Goals & Outcomes, Integumentary Nutritional intake is adequate for metabolic needs, Pt will maintain adequate fluid & nutritional balance, Pt will maintain intact skin integrity, Wound will progress towards healing Interventions, Integumentary Cleanse all wounds with Normal Saline, Collaborate w/ provider for PT/OT consults, Consult Wound Care as needed for further interventions, Encourage & assist pt to change position frequently, Encourage & assist with range of motion exercises, Encourage family participation in pt's care as they are able, Ensure relief modes are on mattress surface & utilized, Increase turning frequency if red or blanched areas appear, Interdisciplinary consults as appropriate, Keep bed as flat as tolerated to reduce shearing, Keep linen clean, dry and wrinkle free, Keepskin clean & dry, Maintain sterile technique with dressing changes, Minimize friction, shear and moisture, Monitor reddened areas for continued or increasing reddness, Record extent of impaired skin integrity, Relieve pressure off bony areas, Reposition pt off reddened areas, Teach Pt/caregivers/s of infection, Teach Pt/S.O. risks of & measures to prevent skin breakdown, Use barrier cream/ointment if pt's skin is frequently moist, Use heel & elbow protectors to relieve friction BH Goals/Interventions, Integumentary Yes Integumentary, Problem Start 06/05/2022 18:04 Reviewed plan with, Integumentary Patient Patient Progression, Integumentary Pt progressing according to plan . Nursing Data Cardiac Data. : Cardiac Data. 06/07/2022 4:49 EST Hgb 8.9 Gm/dL L Hct 28.5 % L 06/07/2022 4:00 EST Cardiovascular Assessment Status Unchanged from recorder's assessment 06/06/2022 20:00 EST Cardiovascular WNL . Gastrointestinal Data. : Gastrointestinal Data. 06/07/2022 4:00 EST Gastrointestinal Assessment Status Unchanged from recorder's assessment 06/06/2022 20:00 EST Last Bowel Movement 06/06/2022 GI WNL . Genitourinary Data. : Genitourinary Data. 06/07/2022 4:00 EST Genitourinary Assessment Status Unchanged from recorder's assessment 06/06/2022 20:00 EST WNL . Neurological Data. : Neurological Data. 06/07/2022 4:00 EST Neurological Assessment Status Unchanged from recorder's assessment 06/06/2022 22:36 EST Pain Intensity 8 Pain Intensity 8 06/06/2022 21:36 EST Pain Intensity 10 Pain Intensity 10 Pain Intensity 10 06/06/2022 20:00 EST Neurological Symptoms Alteration in speech quality, Back pain, Lack of coordination, Numbness, Unsteady gait/Ataxia, Weakness or loss of muscle strength Level of Consciousness Full Consciousness Orientated to person, place, time Person, Place, Time, Event Hallucinations None Facial Symmetry Intact Characteristics of Speech Expressive language difficulty (Modified) Pupil description, left Regular Pupil description, right Regular Pupil reaction, left Brisk Pupil reaction, right Brisk Strength LUE 5-Active movement against gravity & full resistance (Modified) Strength RUE 0-No movement Strength LLE 5-Active movement against gravity & full resistance Strength RLE 0-No movement Tone LUE Normal (Modified) Tone RUE Flaccid Tone LLE Normal Tone RLE Flaccid Sensation LUE Intact (Modified) Sensation RUE Absent Sensation LLE Intact Sensation RLE Absent Movement LUE Spontaneous (Modified) Movement RUE Absent Movement LLE Spontaneous Movement RLE Absent Response Eye Opening Spontaneously Motor Response-Adult Obeys commands Verbal Response-Adult Oriented and converses Debord Coma Score 15 Pain Interventions Non-pharmacological, Pharmacological, PRN medication, Repositioning, Rest Neuro WNL except Eyes and Movements Conjugate gaze: Move in same direction at same speed Swallow - Neuro Normal . Respiratory/Pulmonary Data. : Respiratory/Pulmonary Data. 06/07/2022 4:00 EST Respiratory Assessment Status Unchanged from recorder's assessment 06/06/2022 20:00 EST Respiratory Treatment(s) Cough and deep breathe, Incentive spirometry Respiratory WNL . Narrative/Incidental P: See plan of cares. I: See interventions. E: Upon initial assessment, patient alert and orientated x4. RUE and RLE flaccid and numb endorsed/observed. Expressive language difficulty noted. Complains of generalized pain and buttocks pain, tx per MAR with moderate effect. No edema noted. Patient on room air sating WNL. Tolerating diet, LBM 06/06. Using the urinal with good effect. Lesions continue to weep, patient is resting and safety maintained. Please see [facility] for further assessments and data, thank you. . * Elissa BUSTAMANTE, Maritza Kebede: PERFORM, SIGN, VERIFY Event Display: Progress Note Hospital Authored Date: [id number] Patient: DAVID MCQUEEN Age: 36 years Sex: Male : 1985 Associated Diagnoses: None Author: Maritza Bowers RN Findings Problem Related to Alteration in Comfort : Alteration in Comfort/new 06/06/2022 18:00 EST Alteration in Comfort Related to Disease process Goals & Outcomes: Comfort Pt will report acceptable level of comfort & pain control, Pt will state importance of adhering to pain strategy regime, Pt will demonstrate necessary skills to manage pain, Non-verbal indicators will indicate comfort/pain control Interventions Implemented: Comfort Assess pain using appropriate pain scale/tools, Assess aggravating factors & prevent them accordingly, Assess alleviating factors & promote them accordingly, Acute pain: assess every 4 hours minimally & per protocol, Chronic pain: assess every shift minimally & prn, Determine how pt relieves pain when not hospitalized, Discuss pain management strategies with pt/caregiver, Educate pt/caregiver: importance of pain relief, Encourage pt to verbalize discomfort, Notify provider if pain level not acceptable to pt, Provide alternative pain management strategies, Provide pain relief strategy before activity causing pain, Provide support; discuss coping skills, Teach pt/caregiver on use of pain scale, Teach/assist pt on proper positioning to promote comfort, Use diversional activites as appropriate (ie: TV, music) Goals/Interventions, Comfort Yes Comfort, Problem Start 06/05/2022 18:02 Reviewed plan with, Comfort Patient Patient Progression, Comfort Pt progressing according to plan Comfort, Problem Ongoing Yes . Alteration in Integumentary : Alteration in Integumentary/new 06/06/2022 18:00 EST Alteration in Integumentary Related to Other: hidradenitis suppirativa Goals & Outcomes, Integumentary Nutritional intake is adequate for metabolic needs, Pt will maintain adequate fluid & nutritional balance, Pt will maintain intact skin integrity, Wound will progress towards healing Interventions, Integumentary Cleanse all wounds with Normal Saline, Collaborate w/ provider for PT/OT consults, Encourage & assist pt to change position frequently, Encourage & assist with range of motion exercises, Encourage family participation in pt's care as they are able, Ensure reliefmodes are on mattress surface & utilized, Increase turning frequency if red or blanched areas appear, Interdisciplinary consults as appropriate, Keep bed as flat as tolerated to reduce shearing, Keep linen clean, dry and wrinkle free, Keep skin clean & dry, Maintain sterile technique with dressing changes, Minimize friction, shear and moisture, Monitor reddened areas for continued or increasing reddness, Record extent of impaired skin integrity, Relieve pressure off bony areas, Reposition pt off reddened areas, Teach Pt/caregiver s/s of infection, Teach Pt/S.O. risks of & measuresto prevent skin breakdown, Use barrier cream/ointment if pt's skin is frequently moist, Use fecal incontinence appliance if pt incontinent of stool, Use pressure dispersing devices as appropriate Goals/Interventions, Integumentary Yes Integumentary, Problem Start 06/05/2022 18:04 Reviewed plan with, Integumentary Patient Patient Progression, Integumentary Pt progressing according to plan . Nursing Data Vital Signs : VITAL SIGNS SECTION 06/06/2022 15:44 EST Early Warning Score 0.00 06/06/2022 15:44 EST Temperature 99.2 DegF Temperature Route Oral Pulse Rate 55 bpm Respiratory Rate 18 br/min Systolic Blood Pressure 121 mm Hg Diastolic Blood Pressure 65 mm Hg Blood pressure sites Arm, left Mean Arterial Pressure 84 mm Hg Pulse Pressure 56 mm Hg Oxygen Saturation 99 % Mode of Delivery (Oxygen) Room air . Evaluation Patient has expressive aphasia but can speak short words to make needs known. He does get frustrated if his point doesn't get across. He has spacisity on scheduled baclofen. Tylenol given for pain and oxycodone given for pain with little relief per patient but he did have periods during the day when he was very sleepy. He has a history of percocet abuse per old medical record. explained to patient tonight that oxycodone will not be increasing in dose as when he assessed the patient earlier today the patient was difficult to rouse. Dr Carmichael spoke with patient and patient's mother at the bedside and updated on the plan of care. Patient was assisted with two staff members to the bathroom. His gait is unsteady and he is a heavytwo assist. He had a BM tonight in the bathroom. He has two jose drains in his right buttock andmultiple weeping bloody lesions. When patient was just finishing the IV vancomycin this afternoon, his IV site became painful and swollen and blistered. MD came to bedside to assess. IV team also came to bedside to assess. IV removed, cool saline soaks applied an hyaluronidase injected around site.IV team wanted the left forearm to heal before another IV insertion was attempted and so will restart just before the next IV vancomycin is due. Bed exit alarm on for safety. Purposeful hourly rounding for safety and comfort performed.. Note * Radha Randall RN: PERFORM Event Display: Discharge/Transfer Note Hospital Authored Date: [id number] Nursing Discharge Note Entered On: 06/07/2022 14:52 EST Performed On: 06/07/2022 14:52 EST by Radha Randall RN Nursing Discharge Note 2 Discharge Time : 06/07/2022 14:50 EST Discharge Level of Care at Discharge : Homehealth/VNA Discharge VNA/Hospice/Home Care(v001) : [facility] Patient Left Unit Via : Wheelchair Patient Accompanied Off Unit with : Significant other DC Instructions Provided & Signed by Pt : Yes Patient Understands D/C Instructions : Yes Patient Instructions Discharge Signed : Yes Did Pt have Specialty Bed or Wound Vac : No Radha Randall RN - 06/07/2022 14:52 EST * Scotty Carmichael DO: PERFORM Event Display: Discharge/Transfer Note Hospital Authored Date: [id number] Patient: ??DAVID MCQUEEN ? Age:??36 Years?Sex:??Male?:??1985?? Patient Information Discharge Location: [facility] Primary Care Physician: Derek Tomas MD Admit Date/Time: 06/05/22 03:38 Discharge Disposition Discharge Disposition: Home with Home Health Discharge Diagnosis Hidradenitis suppurativa (L73.2) Abscess of buttock (L02.31) Chronic ischemic left ICA stroke (I69.30) Mural thrombus of cardiac apex (I51.3) Spasticity (R25.2) Hypertension (I10) GERD (gastroesophageal reflux disease) (K21.9) Iron deficiency anemia (D50.9) Peripheral neuropathy (G62.9) Depression (F32.A) Iron deficiency anemia, unspecified iron deficiency anemia type (D50.9) Recurrent major depressive disorder, in full remission (F33.42) ?? _ Discharge Medications Acetaminophen (Tylenol 325 mg oral tablet)?650?Milligram?2?tablet?By Mouth?Every 4 hours?as needed?for pain Acitretin (acitretin 10 mg oral capsule)?TAKE 1 CAPSULE EVERY OTHER DAY FOR NEXT 2 WEEKS THEN 1 CAPSULE DAILY Amlodipine (amLODIPine 5 mg oral tablet)?1?tab(s)?By Mouth?Daily apixaban (Eliquis 5 mg oral tablet)?1?tab(s)?By Mouth?2 times a day Baclofen (baclofen 20 mg oral tablet)?20?Milligram?1?tablet?By Mouth?4 times a day Clindamycin (clindamycin 150 mg oral capsule)?3?capsule?450?Milligram?By Mouth?4 times a day?for 14?Days Durable Medical Equipment (walker with platform attached)?See Instructions?Please dispense 1 (one) walker with attached platformHt: 187.6cmWt: 101.4kgDx: History of stroke - Z86.73, Right-sidedweakness - R53.1,Spasticity due to old stroke - I69.398Length of need: 99months Durable Medical Equipment (Right ankle & foot orthosis)?See Instructions?Please dispense 1 right ankle and foot othosisDx: R29.898, R26.81, M25.373Length of need: 99 monthsNumber to fax [phone] Ferrous Sulfate (ferrous sulfate 325 mg oral tablet)?1?tab(s)?325?Milligram?By Mouth?Daily?as needed?as needed Gabapentin (gabapentin 300 mg oral capsule)?1?capsule?By Mouth?3 times a day Omeprazole (omeprazole 40 mg oral enteric coated capsule)?1?capsule?By Mouth?Daily Scopolamine (scopolamine 1 mg/72 hr transdermal film, extended release)?1?Film?Topically?Every 72 hours?Apply to right mastoid bone Tizanidine (tiZANidine 2 mg oral tablet)?See Instructions?1 tablet by mouth twice a day ? Medications Started Clindamycin (clindamycin 150 mg oral capsule)?3?capsule?450?Milligram?By Mouth?4 times a day?for 14?Days Medications Discontinued None Doses Changed None Allergies Allergies ?(Active and Proposed Allergies Only) NKA? (Severity: Unknown severity, Onset: Unknown) ? PCP Follow-Up/Heads-Up Needs to set up follow up with a Hidradenitis Clinic, numbers provided Hospital Course David is a 36-year-old gentleman with a past medical history significant for CVA secondary to cardiac thrombus currently on Eliquis, spasticity, hypertension, iron deficiency anemia, GERD, psoriasisand peripheral neuropathy as well as significant history of hidradenitis suppurativa and abscess ofthe buttocks. ??Patient has been followed outpatient with surgery and is status post multiple I&D without improvement who was sent in from outpatient due to concern for??her worsening of wound.??Patient ultimately was evaluated by the surgical team and??there was no acute surgical interventions and recommendations were made for patient to follow-up with the??hidradenitis clinic in [place] andjasiel were provided to??multiple clinics for patient to try and establish care with one of them as??he will ultimately need to be managed there for??the likely extensive reconstructive surgery he will require.?? Patient was on vancomycin??however??as surgical evaluation is without overt worseningof wound??we will transition to clindamycin as he has not been recently on it and did trial a??2-week course of antibiotics??and patient can follow-up with his primary care physician.?? Given no acute surgical intervention and patient has been transitioned to p.o. antibiotics he can be discharged to the hospital to establish??outpatient care with a hidradenitis clinic. ??At time of discharge patient was hemodynamically stable and ready for discharge to the hospital. ?? Hidradenitis suppurativa Abscess of buttocks Patient was admitted to medical floor for monitoring. ??Surgery teams have been consulted and pending their recommendations to decide on further planning. ??Patient is continuing on vancomycin as well as fluid resuscitation at this time again pending plan. ??Surgery did evaluate the patient on admission and are going to discuss with plastic surgery and dermatology to assist with planning for surgical needs as patient is likely going to require extensive reconstructive surgery as per initial evaluation. ?Clindamycin 450 mg 4 times daily for 2 weeks ?Patient to establish care with hidradenitis clinic, numbers provided below ?Continue pain management with Tylenol and oxycodone ?? Mural thrombus of cardiac apex/ischemic left KRISTAL stroke: Continue Eliquis Spasticity: Continue home baclofen, tizanidine and scopolamine Hypertension: Continue amlodipine GERD: Omeprazole Iron deficiency anemia: Continue iron supplementation Peripheral neuropathy: Continue gabapentin ?? Objective Vital Signs?? Temperature: 98.6 DegF (06/07/22 09:27:00) Temperature Route: Oral (06/07/22 09:27:00) Pulse Rate: 67 bpm (06/07/22 09:27:00) Respiratory Rate: 18 br/min (06/07/22 10:40:00) Systolic Blood Pressure: 125 mm Hg (06/07/22 09:27:00) Diastolic Blood Pressure: 57 mm Hg (06/07/22 09:27:00) Blood pressure sites: Arm, left (06/06/22 19:30:00) Mean Arterial Pressure: 80 mm Hg (06/07/22 09:27:00) Pulse Pressure: 68 mm Hg (06/07/22 09:27:00) Oxygen Saturation: 99 % (06/07/22 09:27:00) Mode of Delivery (Oxygen): Room air (06/07/22 09:27:00) Early Warning Score: 0 (06/07/22 12:20:11) ? . Physical Exam General Appearance: NAD. Eyes:??No scleral icterus. ENT: ??MM moist. Cardiovascular: RRR S1 and S2 heard with no M/R/G Respiratory: ??Breath sounds clear to auscultation bilaterally GI: Soft. Nontender and nondistended MS: ??No edema or erythema in the lower extremities. Skin:??Buttock R>L: ??multiple areas ??drainage draining purulence,?? fluctuance, too tender to palpate, multiple scars and skin discoloration? Consultants Surgery: Jessenia PAGAN, Shayan Caceres Follow-Up Appointments Added Follow Up ?Time Frame ?Comments Genoveva PAGAN, Derek?3-5 day: call to discuss follow up visit Patient Instructions Hidradenitis Suppurativa Specialty Clinics ?? [facility] MD Chelsey Schaefer MD Appointments: [phone] ?? [facility] Jacquelin Gray MD Appointments: [phone] ?? [facility] Apolonia Jama MD Appointments: [phone] Home Health Face to Face *Denotes mandatory burton ?? *I certify that this patient is under my care and that I or an allowed non- physician working with me had a face to face encounter with the patient on this date:??06/07/2022 12:38 ?? *The encounter with the patient was in whole, or in part, for the following medical condition, which is the primary diagnosis(es) for home health care:??Hidradenitis suppurativa (L73.2) Abscess of buttock (L02.31) Chronic ischemic left ICA stroke (I69.30) Mural thrombus of cardiac apex (I51.3) Spasticity (R25.2) Hypertension (I10) GERD (gastroesophageal reflux disease) (K21.9) Iron deficiency anemia (D50.9) Peripheral neuropathy (G62.9) Depression (F32.A) Iron deficiency anemia, unspecified iron deficiency anemia type (D50.9) Recurrent major depressive disorder, in full remission (F33.42) ? *Select the indications for the discipline/s that are being arranged for this patient. Nursing (select all that apply): [_] None [_] Medication management (reconciliation, teaching)?? [_] Chronic disease management?? [X] Wound care and treatment?? [_] Home safety evaluation [_] Administer SQ/IM/IV medications?? [_] Cath care?? [_] Drain care?? [_] Trach or GT care?? Other _ Occupation Therapy (select all that apply): [_] None [X] ADL Management [_] Fall prevention training [_] Energy conservation [_] Cognitive training Other _ Physical Therapy (select all that apply): [_] None [_] Functional mobility training [X] Home exercise program to strengthen [_] Increase ROM?? [_] Falls prevention training [_] Home maintenance program for chronic disease Other _ Speech Therapy (select all that apply): [_] None [_] Swallow evaluation and training [_] Speech and language training [_] Cognitive training to process, organize, and/or recall information Other _ Wound care should include packing changes of the incision and drainage sites using a corner of gauze dressing and applying a clean, dry dressing over the area once daily ?? *Homebound due to (select all that apply): [X] Inability to leave home without assistance/supervision [_] Inability to ambulate without assistance [_] Pain [_] Decreased strength and endurance [_] Unsteady gait [_] Severe SOB and fatigue [_] Impaired transfers [_] Inability to negotiate stairs [_] Limited weight bearing [_] Mental status change? *Physician Signature: _Scotty Carmichael DO ?? *By signing this, I certify that I have personally evaluated the patient and agree with the findings and recommendations as documented above. ? Results Discharge Labs BLOOD COUNT & DIFF WBC 7.7 k/mm3 ()?? 06/07/2022 04:49 RBC 3.23 m/mm3 (Low)?? 06/07/2022 04:49 Hgb 8.9 Gm/dL (Low)?? 06/07/2022 04:49 Hct 28.5 % (Low)?? 06/07/2022 04:49 MCV 88.2 femtoliters ()?? 06/07/2022 04:49 MCH 27.6 pg ()?? 06/07/2022 04:49 MCHC 31.2 g/dL (Low)?? 06/07/2022 04:49 Platelet Count 549 k/mm3 (High)?? 06/07/2022 04:49 RDW-SD 51.6 femtoliters (High)?? 06/07/2022 04:49 MPV 8.7 femtoliters (Low)?? 06/07/2022 04:49 Nucleated RBC (Automated) 0.0 #/100 WBC'S ()?? 06/07/2022 04:49 Abs. NRBC 0.0 k/mm3 ()?? 06/07/2022 04:49 Abs. Neut 7.3 k/mm3 (High)?? 06/04/2022 14:16 Abs. Lymph 1.6 k/mm3 ()?? 06/04/2022 14:16 Abs. [place] 0.7 k/mm3 ()?? 06/04/2022 14:16 Abs. Eo 0.1 k/mm3 ()?? 06/04/2022 14:16 Abs. Baso 0.0 k/mm3 ()?? 06/04/2022 14:16 Neut % 75.3 % ()?? 06/04/2022 14:16 Lymph % 15.9 % ()?? 06/04/2022 14:16 [place] % 7.6 % ()?? 06/04/2022 14:16 Eos % 0.5 % ()?? 06/04/2022 14:16 Baso % 0.3 % ()?? 06/04/2022 14:16 Imm Gran 0.4 % ()?? 06/04/2022 14:16 Abs. Imm Gran 0.0 k/mm3 ()?? 06/04/2022 14:16 ?? CHEM GENERAL Sodium 136 mmol/L ()?? 06/07/2022 04:49 Potassium 4.4 mmol/L ()?? 06/07/2022 04:49 Chloride 100 mmol/L ()?? 06/07/2022 04:49 Bicarbonate Level 29 mmol/L ()?? 06/07/2022 04:49 Anion Gap 7 ()?? 06/07/2022 04:49 Glucose Level 107 mg/dL (High)?? 06/04/2022 14:16 BUN 11 mg/dL ()?? 06/07/2022 04:49 Creatinine-Blood 0.8 mg/dL ()?? 06/07/2022 04:49 Estimated GFR Creatinine 117 ML/MIN/1.73 M2 ()?? 06/07/2022 04:49 Magnesium 2.1 mg/dL ()?? 06/07/2022 04:49 ?? TOXICOLOGY/TDM Vancomycin Level, Trough 10.1 mg/L ()?? 06/06/2022 12:23 ? VIROLOGY COVID-19 by RT-PCR NEGATIVE ()?? 06/05/2022 02:22 ? Microbiology ?? COVID-19 (Novel Coronavirus), Rapid PCR?? Completed?? Source: Nasal Body Site: Nose Collected Dt/Tm: 06/05/2022 02:19 Last Updated Dt/Tm: 06/05/2022 04:21 ? 37 minutes spent on discharge * Celena Umana RN: PERFORM, SIGN, VERIFY Event Display: Case Management Discharge Plan Authored Date: [id number] Patient: DAVID MCQUEEN Age: 36 years Sex: Male : 1985 Associated Diagnoses: None Author: Celena Umana RN Discharge Plan Case Management Discharge Plan : Case Management Discharge Plan Data 06/07/2022 12:44 EST Discharge Level of Care at Discharge Homehealth/VNA Discharge VNA/Hospice/Home Care [facility] Name of Agency #1 [facility] Service Categories #1 Occupational Therapy, Physical Therapy, Shelter, Wound Care * Radha Randall RN: PERFORM Event Display: Patient Education/Instruction Authored Date: [id number] Inpatient Adult Discharge Instructions [address] [address] Name: DAVID MCQUEEN : 1985 Visit: 06/05/2022 03:38:00 Current Date: 06/07/2022 14:33 Account: [id number] Inpatient Adult Discharge Instructions We would like to thank you for allowing us to assist you with your healthcare needs. The following includes patient education materials and information regarding your injury/illness. Our entire staffstrives to provide an excellent experience for our patients and their families. PLEASE ENSURE YOU FOLLOW-UP PER THE INSTRUCTIONS BELOW! ?? YOUR OPINION IS IMPORTANT TO US! Please complete the survey you may receive by mail or email. Your feedback will be used to make improvements to the healthcare experiences of our patients and their families. Surveys are administered by [employer] ?? If further treatment with your primary care physician or another doctor is recommended, it is important for you to keep the appointment. Call your primary care physician or return to the Emergency Department immediately if your condition worsens, fails to improve, or new symptoms develop. If you need to find a doctor, you can call [facility] for a referral at [phone] or toll free at [phone]) or log in to [email or web address].. ?? You can view and manage your care through the patient portal or by using a health care [facility] of your choosing. [employer] is a website that allows you to securely view your medical information including your hospital discharge summary, office visit summaries, medications and follow-up visits. You can also request appointments, renew medications, and request access to your medical information using a health care boyd of your choosing, or just ask a question. You can enroll at [email or web address] or register during your next office visit. You have been discharged from [facility], Patient Care Unit: S3. If you have any questions regarding these instructions after you leave, please call us and we will be happy to assist you. [facility] Your Care Team Attending Physician Scotty Carmichael DO Discharging Providers Scotty Carmichael DO Reason for Admission PURULENT CELLULITIS Your Diagnosis Abscess of buttock Hidradenitis suppurativa Chronic ischemic left ICA stroke Mural thrombus of cardiac apex Spasticity Hypertension GERD (gastroesophageal reflux disease) Peripheral neuropathy Iron deficiency anemia Depression Recurrent major depressive disorder, in full remission Iron deficiency anemia, unspecified iron deficiency anemia type Tests Performed Below is a partial list of the tests performed during your hospitalization. You may have had other tests and procedures not included in this list. Please discuss all test results with your provider. BUN CBC CBC w/ Differential COVID-19 (Novel Coronavirus), Rapid PCR Creatinine Electrolytes Glucose Level Lytes Magnesium Level Vancomycin Trough CT Abd/Pelvis W/ IV + Oral Contrast Primary Care Provider Georges Tomas MDo Advance Directive Health Care Proxy on File Yes - Health Care Proxy No qualifying data available. Discharge Vitals Temperature: 98.6 DegF Height: 193.04 cm Pulse Rate: 55 bpm Weight: 99.6 kg Respiratory Rate: 18 br/min Body Mass Index:??26.73 kg/m2??High Systolic Blood Pressure: 127 mm Hg Body surface area: 2.31 Diastolic Blood Pressure: 56 mm Hg ?? Oxygen Saturation: 97 % ?? Studies Pending All tests and labs ordered during this hospital stay have been completed unless listed below. Please discuss all pending results with your provider listed above in these instructions. ?? COVID-19 (2019 Novel Coronavirus) PCR Wound Superficial Culture W/ Gram Smear What to do next Instructions From Your Doctor Hidradenitis Suppurativa Specialty Clinics ?? [place], [place] [facility] Medical [facility] Medical Faculty Physicians MD Chelsey Schaefer MD Appointments: [phone] ?? [facility] Dermatology Jacquelin Gray MD Appointments: [phone] ?? [facility] Apolonia Jama MD Appointments: [phone] Discharge Orders You Need to Schedule the Following Appointments Follow Up with??Derek Tomas MD When??Within 3-5 day: call to discuss follow up visit Where: [address] [place] [address]- Discharge Medications DAVID MCQUEEN :1985 Visit Date:06/05/2022 Medications: Please continue your medications until treatment is completed or stopped by your provider. Medications not listed below should be discontinued. Discuss any questions related to medications with your provider. What How Much When Why Instructions Next Dose New Clindamycin (clindamycin 150 mg oral capsule) 3 capsule Oral 4 times a day Duration: 14 Days Pickup at [facility] 3 06/07 PM Unchanged Acetaminophen (Tylenol 325 mg oral tablet) 2 tab(s) Oral Every 4 hours as needed for for pain as needed last dose 1pm Unchanged Acitretin (acitretin 10 mg oral capsule) TAKE 1 CAPSULE EVERY OTHER DAY FOR NEXT 2 WEEKS THEN 1 CAPSULE DAILY ?? 06/08 am Unchanged Amlodipine (amLODIPine 5 mg oral tablet) 1 tab(s) Oral Daily 06/08 am Unchanged apixaban (Eliquis 5 mg oral tablet) 1 tab(s) Oral Twice a day 06/07 PM Unchanged Baclofen (baclofen 20 mg oral tablet) 1 tab(s) Oral 4 times a day 06/07 PM Unchanged Ferrous Sulfate (ferrous sulfate 325 mg oral tablet) 1 tab(s) Oral Daily as needed for as needed as needed Unchanged Gabapentin (gabapentin 300 mg oral capsule) 1 capsule Oral 3 times a day 06/07 PM Unchanged Omeprazole (omeprazole 40 mg oral enteric coated capsule) 1 capsule Oral Daily 06/08 AM Unchanged Tizanidine (tiZANidine 2 mg oral tablet) See instructions 1 tablet by mouth twice a day ?? 06/07 PM Pharmacy Information [facility] 3: [address], [place] [id number] [phone] Test Results Below is a partial list of the most recent Laboratory test results done prior to this discharge. You may have had other tests and procedures not included in this list. Please discuss all test resultswith your provider. BUN (06/07/2022) ???BUN - 11 mg/dL CBC (06/07/2022) ???WBC - 7.7 k/mm3???RBC - 3.23 m/mm3???Hgb - 8.9 Gm/dL???Hct - 28.5 %???MCV - 88.2 femtoliters???MCH - 27.6 pg???MCHC - 31.2 g/dL???Platelet Count - 549 k/mm3???RDW-SD - 51.6 femtoliters???MPV - 8.7femtoliters???Nucleated RBC (Automated) - 0.0 #/100 WBC'S???Abs. NRBC - 0.0 k/mm3 CBC w/ Differential (06/04/2022) ???WBC - 9.7 k/mm3???RBC - 3.39 m/mm3???Hgb - 9.3 Gm/dL???Hct - 29.8 %???MCV - 87.9 femtoliters???MCH - 27.4 pg???MCHC - 31.2 g/dL???Platelet Count - 559 k/mm3???RDW-SD - 51.8 femtoliters???MPV - 8.6femtoliters???Nucleated RBC (Automated) - 0.0 #/100 WBC'S???Abs. NRBC - 0.0 k/mm3???Abs. Neut - 7.3 k/mm3???Abs. Lymph - 1.6 k/mm3???Abs. [place] - 0.7 k/mm3???Abs. Eo - 0.1 k/mm3???Abs. Baso - 0.0 k/mm3???Neut % - 75.3 %???Lymph % - 15.9 %???[place] % - 7.6 %???Eos % - 0.5 %???Baso % - 0.3 %???Imm Gran - 0.4 %???Abs. Imm Gran - 0.0 k/mm3 COVID-19 (Novel Coronavirus), Rapid PCR (06/05/2022) ???COVID-19 by RT-PCR - NEGATIVE Creatinine (06/07/2022) ???Creatinine-Blood - 0.8 mg/dL???Estimated GFR Creatinine - 117 ML/MIN/1.73 M2 Electrolytes (06/07/2022) ???Sodium - 136 mmol/L???Potassium - 4.4 mmol/L???Chloride - 100 mmol/L???Bicarbonate Level - 29 mmol/L???Anion Gap - 7 Glucose Level (06/04/2022) ???Glucose Level - 107 mg/dL Lytes (06/06/2022) ???Sodium - 139 mmol/L???Potassium - 4.4 mmol/L???Chloride - 103 mmol/L???Bicarbonate Level - 30 mmol/L???Anion Gap - 6 Magnesium Level (06/07/2022) ???Magnesium - 2.1 mg/dL Vancomycin Trough (06/06/2022) ???Vancomycin Level, Trough - 10.1 mg/L Allergies (NKA means No Known Allergies) NKA Problems Active Problems??(14) [facility], 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 Chronic ischemic left ICA stroke?? Depression?? GERD (gastroesophageal reflux disease)?? Hidradenitis suppurativa?? Hypertension?? Insomnia?? Iron deficiency anemia?? Mural thrombus of cardiac apex?? Peripheral neuropathy?? Spasticity?? Therapeutic drug monitoring?? Tobacco dependence?? Wound of buttock?? Education Materials Below is the list of Educational Leaflet Providered with your Discharge Instructions. Hidradenitis Suppurativa, Incision and Drainage?? Cellulitis?? Valuables and Belongings I fully understand and agree that [facility] accepts no responsibility for all my personal property including clothing, toilet articles, radios, jewelry, dentures, hearing aids, rings, money, or any other property that is in my possession or is brought to me after admission. I understand certain valuables may be placed in a hospital safe for a short period of time. I understand that the hospital is not liable for loss or damage due to accident, fire, or other natural occurrence while said property is in the safe. I accept full responsibility for any personal property that I keep with me, and will not hold the hospital responsible in case of loss or disappearance. I acknowledge that i have been encouraged to send valuables and belongings home. ?? Review of Valuable and Belonging List: With patient Possessions released to: No ??Medical ??Advices Date for Pt to Sign Valuables/Belongings: 06/07/22 13:41:00 ?? Other Discharge Information ?? Wound Assessment?? Wound Assessment?? Wound Location I: Buttocks, Left Wound Type I: Other: lesions Wound Location II: Buttocks, Right Wound Type II: Other: lesions ?? Case Management Discharge Plan?? Discharge Plan?? Discharge Agency Information?? Discharge Level of Care at Discharge: Homehealth/VNA Name of Agency #1: [facility] Discharge VNA/Hospice/Home Care: [facility] Service Categories #1: Occupational Therapy, Physical Therapy, Shelter, Wound Care ?? Pulmonary Rehab Status?? Pulmonary Rehab Discharge Status?? Respiratory Rate: 18 br/min ? Common Emergency Awareness Tips IS IT A STROKE? Act FAST and Check for these signs: FACE Does the face look uneven? ARM Does one arm drift down? SPEECH Does their speech sound strange? TIME Call at any sign of stroke ?? Heart Attack Signs Chest discomfort: Most heart attacks involve discomfort in the center of the chest and lasts more than a few minutes, or goes away and comes back. It can feel like uncomfortable pressure, squeezing, fullness or pain. Discomfort in upper body: Symptoms can include pain or discomfort in one or both arms, back, neck, jaw or stomach. Shortness of breath: With or without discomfort. Other signs: Breaking out in a cold sweat, nausea, or lightheaded. Remember, MINUTES DO MATTER. If you experience any of these heart attack warning signs, call to get immediate medical attention! ?? Smoking can increase your chances of developing chronic health problems and can cause harmful effects to other family members in your house. If you smoke, you are strongly encouraged to quit. Please call [facility] [employer] [facility] at [phone] or [phone] ([phone]) or log in to [email or web address] for referrals to smoking cessation programs. ?? The National Suicide Prevention Hotline is available 03/12 if you or someone you know needs to find a reason to keep living. By calling 7-029-753-tcgv (0795) you'll be connected to a skilled, trained counselor at a crisis center in your area. INPATIENT DISCHARGE INSTRUCTIONS SIGNATURE PAGE DAVID MCQUEEN Location:[facility] Registration Date and Time:06/05/2022 03:38 EST Primary Care Physician: Derek Tomas MD, I DAVID MCQUEEN, have received the above patient education materials/instructions and have verbalized understanding. If ambulance or transport services are being used I further acknowledge being given a choice of service. ?? If you need to contact me, please call me at this number: . Patient/Light Cleaner Name: Patient/Light Cleaner Signature: Relationship to Patient: Witness Name/Signature: Date: * Radha Randall RN: PERFORM Event Display: Patient Education Leaflets Authored Date: [id number] Hidradenitis Suppurativa, Incision and Drainage ?? [id number] Hidradenitis Suppurativa, Incision and Drainage Hidradenitis suppurativa is chronic inflammation of the sweat glands. It's a severe form of acne. Firm, red, painful bumps (nodules) form. They are??often??filled with pus. They often get larger and may break open and drain. Common affected areas are the armpits, groin, and anal area. You have 1 or more pockets of infection (abscesses). Your healthcare provider needed to make a cut (incision) into the abscess to drain the pus. If the abscess is large, the healthcare provider may have put gauze packing into it. The packing will need to be removed and possibly replaced on your next visit. Always follow wound care instructions from your healthcare provider. It will take 1 to 2 weeks for the wound to heal, depending on how large the abscess is. You may be given antibiotics to help treat infection. If your condition is severe, you may need to have the sweat gland removed. Home care Follow these tips or other instructions given by your healthcare provider when caring for yourself at home: ??? The wound may drain for the first??2 days. Cover it with a clean, dry bandage. If the dressing becomes soaked with blood or pus, change it. ??? Make a warm compress by running hot water over a washcloth. To prevent spreading bacteria, use a new, clean washcloth each time. Put it on the sore area for 10 minutes. You can heat the washcloth under hot water again if it cools off. As an alternative, you can rn training the shower and direct the warm spray onto the area. After each treatment, replace any dressing that had been on it. ??? If a gauze packing was put inside the abscess cavity, follow the instructions from your healthcare provider. You may be told to remove it yourself. You can do this in the shower. Once the packing is removed, you should wash the area carefully in the shower once a day. Do this until the skin opening has closed. Use antibacterial soap. You can buy thissoap at pharmacies and larger grocery stores. ??? If you were prescribed antibiotics, take them as directed by your healthcare provider until they are gone. ??? You may use??[id number] medicinefor pain relief and swelling, unless another pain medicine was prescribed. Note: If you have chronic kidney??or liver??disease, talk with your healthcare provider before using this medicine. Also talk with your healthcare provider if you???ve had a stomach ulcer or gastrointestinal bleeding. ?? Prevention tips ??? Don't use antiperspirants and deodorants. ??? Stay out of the heat as much as possible. ??? Don't shave the affected area. ??? If you smoke, quit. ??? Lose excess weight. ??? Wearloose clothing. Don't wear tight synthetic clothing. ?? Follow-up care Follow up with your healthcare provider as advised. If a gauze packing was put in your wound, remove it in 1 to 2 days, or as directed by your healthcare provider. Check your wound every day for the signs listed below. ?? When to get medical advice Call your healthcare provider right away??if any of the following occur: ??? Fever of??100.4??F (38??C) or higher, or as advised by your provider ??? Pain gets worse ??? Pus continues to drain from the wound for more than??2 days after treatment ??? Redness or swelling gets worse ??? Red tracks in the skin around the wound ?? Last Reviewed Date: 2021 ?? [id number] [employer]. All rights reserved. This information is not intended as a substitute for professional medical care. Always follow your healthcare professional's instructions. ?? * Radha Randall RN: PERFORM Event Display: Patient Education Leaflets Authored Date: [id number] Cellulitis ?? [id number] Cellulitis Cellulitis is an infection of the deep layers of skin. A break in the skin, such as a cut or scratch, can let bacteria under the skin. Cellulitis causes the affected skin to become red, swollen, warm, and sore. The reddened areas havea border you can see. An open sore may leak fluid (pus). You may have a fever, chills, and pain. Cellulitis is treated with antibiotics taken for 7 to 10 days. An open sore may be cleaned and covered with cool wet gauze. Symptoms should get better 1 to 2 days after treatment is started. Make sure to take all the antibiotics for the full number of days until they are gone. Keep taking the medicine even if your symptoms go away. If not treated, cellulitis can get into the bloodstream and lymph nodes. The infection can then spread throughout the body. This causes serious illness. Home care Follow these tips: ??? Limit the use of the part of your body with cellulitis.? If the infection is on your leg, keep your leg raised while sitting. This helps reduce swelling. ??? Take all of the antibiotic medicine exactly as directed until it is gone. Don't miss any doses, especially duringthe first 7 days. Finish taking all of the medicine even when your symptoms get better. ??? Keep the affected area clean and dry. ??? Wash your hands with soap and clean, running water before and after touching your skin. Anyone else who touches your skin should also wash his or her hands. Don't share towels. ?? Follow-up care Follow up with your healthcare provider, or as advised. If your infection doesn't go away after finishing the first antibiotic, your healthcare provider will prescribe a different one. ?? When to seek medical advice Call your healthcare provider right away if any of these occur: ??? Red areas that spread ??? Swelling or pain that gets worse ??? Fluid leaking from the skin (pus) ??? Fever higher of 100.4?? F (38.0?? C) or higher after 2 days on antibiotics ?? Last Reviewed Date: 2021 ?? 5416-1055 [employer]. All rights reserved. This information is not intended as a substitute for professional medical care. Always follow your healthcare professional's instructions. ?? CT Abdomen and Pelvis W contrast IV * [facility] , CIS S: TRANSCRIBE Ronald Hogan MD: VERIFY Jose Esquivel DO: SIGN Event Display: Result: Authored Date: [id number] CT Abd/Pelvis W/ IV + Oral Contrast REASON: hydradenitis of buttock getting worse Hx of Present Illness: back abscess; TECHNIQUE: Spiral CT through the abdomen and pelvis with IV contrast formatted in 3 planes. 100 cc of Omnipaque 300 was administered intravenously. This study was performed with oral contrast. Weight-based protocol using automatic tube modulation was used to optimize exposure parameters. CTDIvol Body: 15.40 mGy, DLP Body: 856 mGy*cm. COMPARISON: CT abdomen pelvis 05/20/2022. FINDINGS: Home Care Associate View Findings, Lines and Tubes: None. Visualized Chest: Lung bases are clear. No pleural effusion. The heart is normal in size. No pericardial effusion. Diaphragm: Normal. Liver: Normal. Gallbladder: No CT evidence of gallbladder pathology. Bile ducts: No biliary ductal dilation. Spleen: Normal. Pancreas: Normal. Adrenal glands: Normal. Kidneys and ureters: No hydronephrosis, stones, or suspicious masses. Simple appearing right parapelvic cyst, requiring no dedicated follow up. Bladder: Normal. Reproductive organs: Unremarkable. Stomach, small bowel, and large bowel: Unremarkable stomach. Small bowel loops are not dilated, no evidence of obstruction. Oral contrast transit through multiple small bowel loops. Appendix: Normal (image 58 series 202). Peritoneum and retroperitoneum: No ascites or pneumoperitoneum. No omental or mesenteric lesions. Lymph nodes: Unchanged bilateral inguinal nodes measuring up to 2.1 cm short axis on the right. Blood vessels: Normal. No aneurysm. No evidence of venous thrombosis. Abdominal and pelvic wall: Similar appearing extensive bilateral heterogeneous soft tissue thickening of the bilateral glutealregions with replacement of the subcutaneous fat. On the right this measures up to 2 cm in thickness, similar to prior. There are numerous areas of low attenuation throughout the thickened skin and subcutaneous phlegmon, although unclear may represent a drainable collection. There is a drain in theright gluteal subcutaneous tissue. Bones: No acute abnormality. Unchanged severe degenerative changes of the left hip and proximal femur fixation. IMPRESSION: Similar-appearing extensive superficial soft tissue thickening of the bilateral gluteal regions, right more extensive than left. There are diffuse areas of low attenuation within the subcutaneous phlegmon although unclear if anyrepresent a discrete drainable collection. Reactive bilateral inguinal adenopathy. I have personally reviewed the images and I agree with this report. WSN: [id number] Ordering Physician: Ted Diaz Dictated By: Jose Esquivel DO Dictated Date/Time: 06/05/22 0:00 am Reviewed By: Ronald Hogan MD Signed By: Ronald Hogan MD Signed Date/Time: 06/05/22 0:05 am Transcribed By: ZEHRA Transcribed Date/Time: 06/04/22 11:59 pm Patient Care team information Care Team Personnel Name: Areli Pittman RN Position: [facility] ED RN W/OE and Tasks Member Role: Primary Care Nurse Name: Bettye Carney Position: [facility] RN Member Role: Primary Care Nurse Name: Derek Tomas MD Position: [facility] Resident Member Role: PCP Address: Address: [address] [place] [id number]- Name: Ally Boyd RN Position: [facility] RN Member Role: Primary Care Nurse Name: Axel Savage RN Position: [facility] RN Member Role: Primary Care Nurse Name: Filemon King RN Position: [facility] RN Member Role: Primary Care Nurse Name: Glenys Fox RN Position: [facility] RN Member Role: Primary Care Nurse Name: Dewayne MATA Attending Position: [facility] ED Medicine Name: Sonia Hein RN Position: [facility] ED RN W/OE and Tasks Member Role: Patient Care Provider Name: Hortencia Frye Position: [facility] ED TA [facility] Member Role: Friend Of The Court Care Team Related Persons Name: JUHI BEVERLY Address: [address] [place] [address] Name: AISLINN DE LA PAZ Address: [address] [place] [address]
--- OUTSIDE RECORDS SUMMARY | 2023-02-03 22:27 | XMS_ITS | Continuity of Care Document ---
Author Name Unknown Organization [facility] Address [address] [place] [address]- Care Team Providers Care Rheologist Name Role Phone Judie Mills DO Primary Care Physician [place] [facility] 10/21/20 - 11/20/[address] [id number] Allergies, Adverse Reactions, Alerts Substance [...] 10/31/20 12:56:00 EDT, Route to Pharmacy Electronically, [facility]/pharmacy [...] 0 Refills, Maintenance, 10/31/20 12:56:00 EDT, Tablet, [facility]/pharmacy #[id number], Partial fill upon patient [...]
--- OUTSIDE RECORDS SUMMARY | 2023-02-03 22:27 | XMS_ITS | Continuity of Care Document ---
Author Name Unknown Organization [facility] Address [address] [place] [address]- Care Team Providers Care Outside Installer Apprentice Name Role Phone Derek Tomas MD Primary Care Physician Encounter [facility] [place] Date(s): 09/28/22 - 10/28/[address] [address]- Allergies, Adverse Reactions, Alerts No Known Allergies [...] # 30 tablet, 11 Refills, [facility], 193, cm, 10/26/21 9:21:00 EDT,Height, 97.2, kg, [...] lesions due to severe hidradenitis L73.2 Please imke Wilson, 09/28/22 17:53:00 EDT, Supply Start Date: 09/28/22 Status: Ordered duloxetine 30 mg oral enteric coated capsule 1 capsule, By Mouth, Daily, # 30 capsule, 5 Refills, Maintenance, 08/17/22 15:25:00 EDT, [facility] 66214, 193.04, cm, 07/23/22 14:07:00 EDT, Height, 99.6, [...] Maintenance, 08/13/22 15:55:00 EDT, Route toPharmacy Electronically, [facility] 58016, 193.04, cm, 07/23/22 14:07:00 EDT, Height, 99.6, [...] 02/22/22 9:42:00 EDT, Route to Pharmacy Electronically, [facility] 27876, 193, cm, 02/07/22 10:31:00 EDT, Height, 97.2, [...] capsule, 5 Refills, Maintenance, 08/13/22 15:28:00 EDT, [facility]/pharmacy #[id number], 193.04, cm, 07/23/22 14:07:00 EDT, Height, 99.6, kg, 06/06/22 18:00:00 EST, Dry Weight Start Date: 08/13/22 Status: Ordered oxycodone 15 mg oral tablet, extended release 1 tablet = 15 mg, By Mouth, Every 12 hours, # 60 tablet, 0 Refills, Maintenance, 10/16/22 16:53:00 EDT, ER Tablet, [facility]/pharmacy #[id number], Partial fill upon patient request [...] need: 99 months Number to fax to: [phone], 01/06/21 13:10:00 E... 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 Carmen Elizabeth [phone] Confirmed Active Therapeutic drug monitoring Confirmed Active Peripheral neuropathy Confirmed Active Spasticity Confirmed Active Tobacco dependence Confirmed Active Social History Social History Type Response Smoking Status 5-9 cigarettes (betw een 1/4 to 1/2 pack)/day in last 30 days entered on: 05/16/22 Sex Patient Care team information Care Team Personnel Name: Areli Pittman RN Position: [facility] ED RN W/OE and Tasks Member Role: Primary Care Nurse Name: Derek Tomas MD Position: [facility] Resident Member Role: PCP Address: Address: [address] [place] [address]- Name: Ally Boyd RN Position: [facility] RN Member Role: Primary Care Nurse Name: Axel Savage RN Position: [facility] RN Member Role: Primary Care Nurse Name: Filemon King RN Position: S RN Member Role: Primary Care Nurse Name: Glenys Fox RN Position: [facility] RN Member Role: Primary Care Nurse Care Team Related Persons Name: BEVERLY REYNAGA Address: home [address] [place] [id number] Name: AISLINN DE LA PAZ Address: [address] [address]
--- OUTSIDE RECORDS SUMMARY | 2023-02-03 22:27 | XMS_ITS | Continuity of Care Document ---
Author Name Unknown Organization [facility] Address [address] [place] [address]- Care Team Providers Care Bending Roll Hand Name Role Phone Judie Mills DO Primary Care Physician Encounter [facility] – [place] Date(s): 03/13/21 - 04/12/21 [facility] [address] [place] [address]- Attending Physician: Sangeetha Latif Admitting Physician: Sangeetha Latif Referring Physician: trSangeetha Allergies, Adverse Reactions, Alerts Substance Reaction Severity [...] 11/22/20 8:13:00 EDT, Route to Pharmacy Electronically, [facility] STORE 33935, 187.6, cm, 10/19/20 9:25:00 EDT, Height, 101.4, kg, 08/27/20 1:59:00 EDT, Dry Weight Start Date: 11/22/20 Status: Ordered gabapentin 100 mg oral capsule 100 mg, 1, capsule, By Mouth, 2 times a day, # 60 capsule, Refills 11, Tot. Refills 11, Maintenance, 04/03/21 14:15:00 EST, Route to Pharmacy Electronically, [facility]/pharmacy #[id number], note dose change, 193, cm, 03/15/21 16:10:00 EDT, Height, 104.5, kg, 10/0... Start Date: 04/03/21 Stop Date: 03/29/22 Status: Ordered gabapentin 300 mg oral capsule 300 mg, 1, capsule, By Mouth, Daily at bedtime, # 30 capsule, Refills 3, Tot. Refills 3, Maintenance, 04/03/21 14:16:00 EST, Route to Pharmacy Electronically, [facility]/pharmacy #[id number], Note bedtime dose change, 193, cm, 03/15/21 16:10:00 EDT, Height, 104.5,... Start Date: 04/03/21 Stop Date: 3/22/22 Status: Ordered metoclopramide 10 mg oral tablet, disintegrating 1 tablet = 10 mg, By Mouth, Every 8 hours, PRN Nausea & Vomiting, # 28 tablet, 0 Refills, Maintenance, 02/24/21 17:09:00 EDT, DIS Tablet, [facility]/pharmacy [...] 5 Refills, Maintenance, 03/13/21 13:24:00 EDT, ECCapsule, [facility]/pharmacy #[id number], [...] 03/15/21 22:43:00 EDT, Route to Pharmacy Electronically, [facility] [...] need: 99 months Number to fax to: [phone], 01/06/21 13:10:00 E... Start Date: 01/06/21 Status: [...] tablet, 11 Refills, Maintenance, 11/22/20 8:13:00 EDT, [facility] 30449, 187.6, cm, 10/19/20 9:25:00 EDT, Height, 101.4, [...]
--- OUTSIDE RECORDS SUMMARY | 2023-02-03 22:27 | XMS_ITS | Continuity of Care Document ---
Author Name Unknown Organization [facility] Address [address] [place] [address]- Care Team Providers Care Precast Molder Name Role Phone Judie Mills DO Primary Care Physician [place] [facility] [place] - 11/02/[address] [address] Allergies, Adverse Reactions, Alerts Substance Reaction Severity Status NKA Active Medications amLODIPine 5 mg oral tablet 5 mg, 1, tablet, By Mouth, Daily, # 30 tablet, Refills 11, Tot. Refills 11, Maintenance, 10/31/20 12:56:00 EDT, Route to Pharmacy Electronically, [facility]/pharmacy #[id number], Partial fill upon patient requestif [...] 12:56:00 EDT, Route to Pharmacy Electronically, [facility]/pharmacy #[id number], Partial fill upon patient request if the prescription is for a schedule II opioid drug.... Start Date: 10/31/20 Status: Ordered gabapentin 100 mg oral capsule 100 mg, 1, capsule, By Mouth, 3 times a day, # 90 capsule, Refills 11, Tot. Refills 11, Maintenance, 11/02/20 17:57:00 EDT, Route to Pharmacy Electronically, [facility]/pharmacy #[id number], Partial fill upon patient request [...] 0 Refills, Maintenance, 10/31/20 12:56:00 EDT, Tablet, [facility]/pharmacy #[id number], Partial fill upon patient request [...]
--- OUTSIDE RECORDS SUMMARY | 2023-02-03 22:27 | XMS_ITS | Continuity of Care Document ---
Author Name Unknown Organization [facility] Address [address] [place] [address]- Care Team Providers Care Clinical Trainer Name Role Phone Judie Mills DO Primary Care Physician [phone] [place] [facility] [place] 11/25/20 - 12/25/[address] [address] Allergies, Adverse Reactions, Alerts Substance [...] 11/22/20 8:13:00 EDT, Route to Pharmacy Electronically, [facility] STORE 04538, 187.6, cm, 10/19/20 9:25:00 EDT, Height, 101.4, kg, 08/27/20 1:59:00 EDT, Dry Weight Start Date: 11/22/20 Status: Ordered gabapentin 100 mg oral capsule 100 mg, 1, capsule, By Mouth, 3 times a day, # 90 capsule, Refills 11, Tot. Refills 11, Maintenance, 11/02/20 17:57:00 EDT, Route to Pharmacy Electronically, [facility]/pharmacy #[id number], Partial fill upon patient request if the [...] 11/25/20 15:58:00 EDT, Route to Pharmacy Electronically, [facility]/pharmacy #[id number], Partial fill upon patient request if the [...] Refills, Maintenance, 11/22/20 8:13:00 EDT, [facility], 187.6, cm, 10/19/20 9:25:00 EDT, Height, 101.4, [...]
--- OUTSIDE RECORDS SUMMARY | 2023-02-03 22:27 | XMS_ITS | Continuity of Care Document ---
Author Name Unknown Organization [facility] Address [address] [place] [address]- Care Team Providers Care Computer Artist Name Role Phone Judie Mills DO Primary Care Physician [phone] Encounter [facility] [place] Date(s): 12/29/20 - 01/28/[address] [address] Allergies, Adverse Reactions, Alerts Substance [...] to Pharmacy Electronically, [facility] STORE 18947, 187.6, cm, 10/19/20 9:25:00 EDT, Height, 101.4, kg, 08/27/20 1:59:00 EDT, Dry Weight Start Date: 11/22/20 Status: Ordered gabapentin 100 mg oral capsule 100 mg, 1, capsule, By Mouth, 3 times a day, # 90 capsule, Refills 11, Tot. Refills 11, Maintenance, 11/02/20 17:57:00 EDT, Route to Pharmacy Electronically, [facility]/pharmacy #[id number], Partial fill upon patient request if the [...] need: 99 months Number to fax to: [phone], 01/06/21 13:10:00 E... Start Date: 01/06/21 Status: Ordered SEROquel 25 mg oral tablet 25 mg, 1, tablet, By Mouth, 2 times a day, # 60 tablet, Refills 3, Tot. Refills 3, Maintenance, 11/25/20 15:58:00 EDT, Route to Pharmacy Electronically, [facility]/pharmacy #[id number], Partial fill upon patient request if the [...] Refills, Maintenance, 11/22/20 8:13:00 EDT, [facility], 187.6, cm, 10/19/20 9:25:00 EDT, Height, 101.4, [...]
--- OUTSIDE RECORDS SUMMARY | 2023-02-03 22:27 | XMS_ITS | Continuity of Care Document ---
Author Name Unknown Organization [facility] Address [address] [facility] [address] [place] [address]- Care Team Providers Care Garment Parts Cutter Hand Name Role Phone Derek Tomas MD Primary Care Physician [place] [facility] [place] - 07/08/22 [facility] [address] [place] [address]- Allergies, Adverse Reactions, Alerts No Known Allergies [...] # 30 tablet, 11 Refills, [facility], 193, cm, 10/26/21 9:21:00 EDT,Height, 97.2, kg, 10/26/21 9:21:00 EDT, Dry Weight Start Date: 11/15/21 Status: Ordered baclofen 20 mg oral tablet 20 mg, 1, tablet, By Mouth, 4 times a day, # 120 tablet, Refills 5, Tot. Refills 5, Maintenance, 10/26/21 9:45:00 EDT, Route to Pharmacy Electronically, [facility]/pharmacy #[id number], 193, cm, 10/26/21 [...] 1 Refills, Maintenance, 06/29/22 11:48:00 EST, ECCapsule, [facility]/pharmacy #[id number], Partial fill upon patient request if the prescription is for a schedule II opioid drug., 193.04, cm, 06/29/22 11:17:00 EST... Start Date: 06/29/22 Status: Ordered Eliquis 5 mg oral tablet 1 tablet, By Mouth, 2 times a day, # 60 tablet, 11 Refills, 02/07/22 11:13:00 EDT, [facility]/pharmacy #[id number], 193, cm, 02/07/22 [...] 02/22/22 9:42:00 EDT, Route to Pharmacy Electronically, [facility] STORE 00343, 193, cm, 02/07/22 10:31:00 EDT, Height, 97.2, kg, 10/26/21 9:21:00 EDT, Dry Weight Start Date: 02/22/22 Status: Ordered omeprazole 40 mg oral enteric coated capsule 1 capsule, By Mouth, Daily, # 30 capsule, 5 Refills, Maintenance, 02/22/22 9:43:00 EDT, [facility], 193, cm, 02/07/22 10:31:00 EDT, Height, 97.2, kg, 10/26/21 9:21:00 EDT, Dry Weight Start Date: 02/22/22 Status: Ordered Right ankle & foot orthosis Right ankle & foot orthosis, See Instructions, # 1 each, Refills 1, Tot. Refills 1, Maintenance, Please dispense 1 right ankle and foot othosis Dx: R29.898, R26.81, M25.373 Length of need: 99 months Number to fax to: [phone], 01/06/21 13:10:00 E... Start Date: 01/06/21 Status: Ordered scopolamine 1 mg/72 hr transdermal film, extended release See Instructions, APPLY 1 PATCH TO RIGHT MASTOID BONE EVERY 72 HOURS, # 10 each, 3 Refills, Maintenance, 06/29/22 11:46:00 EST, [facility]/pharmacy #[id number], APPLY 1 PATCH TO RIGHT MASTOID BONE EVERY 72 HOURS,193.04, cm, 06/29/22 11:17:00 EST, Height, 99.6, kg... Start Date: 06/29/22 Status: Ordered scopolamine 1 mg/72 hr transdermal film, extended release 1 film, Topically, Every 72 hours, Apply to right mastoid bone, # 24 each, 1 Refills, Maintenance, 07/13/22 10:00:00 EST, [facility]/pharmacy #[id number], Partial fill upon patient request if the prescription is for a schedule II opioid drug., 1 film Topically Lucía... Start Date: 07/13/22 Status: Ordered tiZANidine 2 mg oral tablet See Instructions, TAKE 1 TABLET BY MOUTH three times A DAY, # 90 tablet, Refills 6, Tot. Refills 6,Maintenance, 07/04/22 12:44:00 EST, Instructions Replace Required Details, Route to Pharmacy Electronically, [facility]/pharmacy #1130, 193.04, cm, 07/04/22... Start Date: [...] 05/20/22 19:50:00 EST, Route to Pharmacy Electronically, [facility]/pharmacy #0512, Partial fill upon patient request if the [...] apex Confirmed Active N CP Care Management, Geodetic Technician Carmen Elizabeth [phone] Confirmed Active Therapeutic drug monitoring Confirmed Active Peripheral neuropathy Confirmed Active Spasticity Confirmed Active Tobacco dependence Confirmed Active Social History Social History Type Response Smoking Status 5-9 cigarettes (betw een 1/4 to 1/2 pack)/day in last 30 days entered on: 05/16/22 Sex Patient Care team information Care Team Personnel Name: Areli Pittman RN Position: [facility] ED RN W/OE and Tasks Member Role: Primary Care Nurse Name: Bettye Carney Position: S RN Member Role: Primary Care Nurse Name: Derek Tomas MD Position: [facility] Resident Member Role: PCP Address: Address: [address] [place] [address]- Name: Ally Boyd RN Position: S RN Member Role: Primary Care Nurse Name: Axel Savage RN Position: S RN Member Role: Primary Care Nurse Name: Filemon King RN Position: S RN Member Role: Primary Care Nurse Name: Glenys Fox RN Position: S RN Member Role: Primary Care Nurse Care Team Related Persons Name: BEVERLY REYNAGA Address: [address] [address] Name: AISLINN DE LA PAZ Address: [address] [address]
--- OUTSIDE RECORDS SUMMARY | 2023-02-03 22:27 | XMS_ITS | Continuity of Care Document ---
Author Name Unknown Organization [facility] Address [address] [place] [address]- Care Team Providers Care Mft Name Role Phone Derek Tomas MD Primary Care Physician Encounter [place] Date(s): 12/13/22 - 01/12/[address] [address]- Attending Physician: AdmSangeetha steward Admitting Physician: AdmtrSangeetha Referring Physician: Admtr, Ar8 [...] 10/26/21 9:45:00 EDT, Route to Pharmacy Electronically, [facility]/pharmacy #[id number], 193, cm, 10/26/21 9:21:00 [...] Refills, Maintenance, 08/17/22 15:25:00 EDT, [facility], 193.04, cm, 07/23/22 14:07:00 EDT, Height, 99.6, kg, 06/06/22 18:00:00 EST, Dry Weight Start Date: 08/17/22 Status: Ordered Eliquis 5 mg oral tablet 1 tablet, By Mouth, 2 times a day, # 60 tablet, 11 Refills, 02/07/22 11:13:00 EDT, [facility]/pharmacy #[id number], 193, cm, 02/07/22 10:31:00 EDT, Height, 97.2, kg, 10/26/21 9:21:00 EDT, Dry Weight Start Date: 02/07/22 Status: Ordered ferrous sulfate 325 mg oral tablet TAKE 1 TABLET BY MOUTH EVERY DAY NEEDED Start Date: 09/12/22 Status: Ordered FLUoxetine 20 mg oral capsule 1, capsule, By Mouth, Daily, # 30 capsule, Refills 14, Maintenance, 08/13/22 15:55:00 EDT, Route toPharmacy Electronically, [facility] 60362, 193.04, cm, 07/23/22 14:07:00 EDT, Height, 99.6, [...] 02/22/22 9:42:00 EDT, Route to Pharmacy Electronically, [facility] 52602, 193, cm, 02/07/22 10:31:00 EDT, Height, 97.2, [...] 01/20/23 22:14:00 EDT, 12/21/22 22:14:00 EDT, Tablet, [facility], Partial fill upon patient request if the prescription is for... Start Date: 12/21/22 Stop Date: 01/20/23 Status: Ordered omeprazole 40 mg oral enteric coated capsule 1 capsule, By Mouth, Daily, # 30 capsule, 5 Refills, Maintenance, 08/13/22 15:28:00 EDT, [facility]/pharmacy #2071, 193.04, cm, 07/23/22 14:07:00 EDT, Height, 99.6, kg, 06/06/22 18:00:00 EST, Dry Weight Start Date: 08/13/22 Status: Ordered Right ankle & foot orthosis Right ankle & foot orthosis, See Instructions, # 1 each, Refills 1, Tot. Refills 1, Maintenance, Please dispense 1 right ankle and foot othosis Dx: R29.898, R26.81, M25.373 Length of need: 99 months Number to fax to: [phone], 01/06/21 13:10:00 E... Start Date: 01/06/21 Status: Ordered scopolamine 1 mg/72 hr transdermal film, extended release See Instructions, APPLY 1 PATCH TO RIGHT MASTOID BONE EVERY 72 HOURS, # 10 each, 3 Refills, Maintenance, 06/29/22 11:46:00 EST, [facility]/pharmacy #[id number], APPLY 1 PATCH TO RIGHT MASTOID BONE EVERY 72 HOURS,193.04, cm, 06/29/22 11:17:00 EST, Height, 99.6, kg... Start Date: 06/29/22 Status: Ordered scopolamine 1 mg/72 hr transdermal film, extended release 1 film, Topically, Every 72 hours, Apply to right mastoid bone, # 10 patch, 0 Refills, Maintenance,12/13/22 11:53:00 EDT, [facility]/pharmacy #1130, Partial fill upon patient [...] 05/20/22 19:50:00 EST, Route to Pharmacy Electronically, [facility]/pharmacy #3401, Partial fill upon patient request if the [...] apex Confirmed Active [facility] CP Care Management, Quality Assurance Director Carmen Elizabeth [phone] Confirmed Active Therapeutic drug monitoring Confirmed Active Peripheral neuropathy Confirmed Active Spasticity Confirmed Active Tobacco dependence Confirmed Active Social History Social History Type Response Smoking Status 5-9 cigarettes (betw een 1/4 to 1/2 pack)/day in last 30 days entered on: 05/16/22 Sex Laboratory * Event Display: Laboratory Result Scanned Authored Date: * Event Display: Laboratory Result Scanned Authored Date: * Judie Keenan DO: PERFORM Event Display: Laboratory Result Scanned Authored Date: [id number] 03/02/22 labs Lipid panel WNL G6PD screen WNL * Event Display: Laboratory Result Scanned Authored Date: [id number] * Shlomo DO Judie: PERFORM Event Display: Laboratory Result Scanned Authored Date: [id number] Labs resulted 03/01/22 CBC WBC 8.5, diff WNL H/H 10.6/36.4 - mild anemia Plts 747 - thrombocytosis CMP: Electrolytes, kidney function WNL Alk phos elevated at 155 Remainder of liver testing normal Patient Care team information Care Team Personnel Name: Areli Pittman RN Position: [facility] ED RN W/OE and Tasks Member Role: Primary Care Nurse Name: Derek Tomas MD Position: [facility] Resident Member Role: PCP Address: Address: [address] [place] [id number]- Name: Ally Boyd RN Position: S RN Member Role: Primary Care Nurse Name: Axel Savage RN Position: S RN Member Role: Primary Care Nurse Name: Filemon King RN Position: S RN Member Role: Primary Care Nurse Name: Glenys Fox RN Position: S RN Member Role: Primary Care Nurse Care Team Related Persons Name: BEVERLY REYNAGA Address: home [address] [place] [address] Name: AISLINN DE LA PAZ Address: [place] [address] [place] [address]
--- OUTSIDE RECORDS SUMMARY | 2023-02-03 22:27 | XMS_ITS | Continuity of Care Document ---
Author Name Unknown Organization [facility] Address [address] [place] [address]- Care Team Providers Care Electric Spot Welder Name Role Phone Genoveva PAGAN, Derek Primary Care Physician [place] [facility] [place](s): 07/04/22 - 07/11/22 [facility] [address] [place] [address]- Attending Physician: Mariza Gorman Allergies, Adverse Reactions, Alerts No Known Allergies [...] Daily, # 30 tablet, 11 Refills, [facility] 407[facility], 193, cm, 10/26/21 9:21:00 EDT,Height, 97.2, kg, 10/26/21 9:21:00 EDT, Dry Weight Start Date: 11/15/21 Status: Ordered baclofen 20 mg oral tablet 20 mg, 1, tablet, By Mouth, 4 times a day, # 120 tablet, Refills 5, Tot. Refills 5, Maintenance, 10/26/21 9:45:00 EDT, Route to Pharmacy Electronically, [facility]/pharmacy #[id number], 193, cm, 10/26/21 9:21:00 EDT, [...] 1 Refills, Maintenance, 06/29/22 11:48:00 EST, ECCapsule, [facility]/pharmacy #[id number], Partial fill upon patient request if the prescription is for a schedule II opioid drug., 193.04, cm, 06/29/22 11:17:00 EST... Start Date: 06/29/22 Status: Ordered Eliquis 5 mg oral tablet 1 tablet, By Mouth, 2 times a day, # 60 tablet, 11 Refills, 02/07/22 11:13:00 EDT, [facility]/pharmacy #[id number], 193, cm, 02/07/22 10:31:00 EDT, [...] 02/22/22 9:42:00 EDT, Route to Pharmacy Electronically, [facility] [id number], 193, cm, 02/07/22 10:31:00 EDT, Height, 97.2, kg, 10/26/21 9:21:00 EDT, Dry Weight Start Date: 02/22/22 Status: Ordered omeprazole 40 mg oral enteric coated capsule 1 capsule, By Mouth, Daily, # 30 capsule, 5 Refills, Maintenance, 02/22/22 9:43:00 EDT, [facility], 193, cm, 02/07/22 10:31:00 EDT, Height, 97.2, kg, 10/26/21 9:21:00 EDT, Dry Weight Start Date: 02/22/22 Status: Ordered Right ankle & foot orthosis Right ankle & foot orthosis, See Instructions, # 1 each, Refills 1, Tot. Refills 1, Maintenance, Please dispense 1 right ankle and foot othosis Dx: R29.898, R26.81, M25.373 Length of need: 99 months Number to fax to: [phone], 01/06/21 13:10:00 E... Start Date: 01/06/21 Status: Ordered scopolamine 1 mg/72 hr transdermal film, extended release See Instructions, APPLY 1 PATCH TO RIGHT MASTOID BONE EVERY 72 HOURS, # 10 each, 3 Refills, Maintenance, 06/29/22 11:46:00 EST, [facility]/pharmacy #[id number], APPLY 1 PATCH TO RIGHT MASTOID BONE EVERY 72 HOURS,193.04, cm, 06/29/22 11:17:00 EST, Height, 99.6, kg... Start Date: 06/29/22 Status: Ordered scopolamine 1 mg/72 hr transdermal film, extended release 1 film, Topically, Every 72 hours, Apply to right mastoid bone, # 24 each, 1 Refills, Maintenance, 07/13/22 10:00:00 EST, [facility]/pharmacy #[id number], Partial fill upon patient request if the prescription is for a schedule II opioid drug., 1 film Topically Lucía... Start Date: 07/13/22 Status: Ordered tiZANidine 2 mg oral tablet See Instructions, TAKE 1 TABLET BY MOUTH three times A DAY, # 90 tablet, Refills 6, Tot. Refills 6,Maintenance, 07/04/22 12:44:00 EST, Instructions Replace Required Details, Route to Pharmacy Electronically, [facility]/pharmacy #[id number], 193.04, cm, 07/04/22... Start Date: [...] 05/20/22 19:50:00 EST, Route to Pharmacy Electronically, [facility]/pharmacy #[id number], Partial fill upon patient request if the [...] apex Confirmed Active N CP Care Management, [employer] Man Carmen Elizabeth [phone] Confirmed Active Therapeutic drug monitoring Confirmed Active Peripheral neuropathy Confirmed Active Spasticity Confirmed Active Tobacco dependence Confirmed Active Vital Signs Most recent to oldest [Reference Range]: 1 Height 193.04 cm (07/04/22 10:22 AM) Weight 96.5 kg (07/04/22 10:22 AM) Oxygen Saturation [94-100 %] 98 % (07/04/22 10:22 AM) Pulse Rate [55-90 bpm] 87 bpm (07/04/22 10:22 AM) Body Mass Index [18.5-24.99 kg/m2] 25.9 kg/m2 *H* (2/22/23 10:22 AM) Blood Pressure [90-138/55-84 mm Hg] 130/ 75mm Hg (07/04/22 10:22 AM) Blood pressure sites Arm, left (07/04/22 10:22 AM) Weight Obtained Via Bed scale (07/04/22 10:22 AM) Social History Social History Type Response Smoking Status 5-9 cigarettes (betw een 1/4 to 1/2 pack)/day in last 30 days entered on: 05/16/22 Sex Patient Care team information Care Team Personnel Name: Areli Pittman RN Position: [facility] ED RN W/OE and Tasks Member Role: Primary Care Nurse Name: Bettye Carney Position: [facility] RN Member Role: Primary Care Nurse Name: Derek Tomas MD Position: [facility] Resident Member Role: PCP Address: Address: [address] [place] [address]- Name: Ally Boyd RN Position: [facility] RN Member Role: Primary Care Nurse Name: Axel Savage RN Position: S RN Member Role: Primary Care Nurse Name: Filemon King RN Position: S RN Member Role: Primary Care Nurse Name: Glenys Fox RN Position: [facility] RN Member Role: Primary Care Nurse Care Team Related Persons Name: BEVERLY REYNAGA Address: [address] [address] Name: AISLINN DE LA PAZ Address: [address] [address]
--- OUTSIDE RECORDS SUMMARY | 2023-02-03 22:27 | XMS_ITS | Continuity of Care Document ---
Author Name Unknown Organization [facility] Address [address] [place] [address] [address] [place] [address]- Care Team Providers Care Box Icer Name Role Phone Judie Mills DO Primary Care Physician [phone] Encounter [facility] [place] Date(s): 05/02/20 - 06/01/[address] [place], [place] [address] Attending Physician: Admtr, [id number] Admitting Physician: Admtr, [id number] Referring Physician: Admtr, [id number] Allergies, Adverse Reactions, [...] Date: 03/10/20 Stop Date: 06/13/20 Status: Ordered Problem List Condition Effective Dates Status Health Status Inform ant Hidradenitis suppurativa(Confirmed) Active Wound of buttock(Confirmed) Active Tobacco dependence(Confirmed) Active Social History Social History Type Response Smoking Status 10 or more cigarette s (1/2 pack or more)/day in last 30 days entered on: 02/29/20 Sex
--- OUTSIDE RECORDS SUMMARY | 2023-02-03 22:27 | XMS_ITS | Continuity of Care Document ---
Author Name Unknown Organization [facility] ter Address [address] [place] [address]- Care Team Providers Care Regional Clinical Director Name Role Phone Judie Mills DO Primary Care Physician [place] [facility] [place] - 05/25/[address] [address] Attending Physician: Mariza Mao MD Admitting Physician: Mariza Mao MD Referring Physician: Judie Mills DO Allergies, Adverse Reactions, Alerts Substance Reaction Severity Status NKA Active Medications Bactrim DS 800 mg-160 mg oral tablet 1 tablet, By Mouth, 2 times a day, for 10 days, # 20 tablet, 0 Refills, Acute 05/30/20 10:01:00 EST, 05/20/20 10:01:00 EST, Tablet, [id number], Partial fill upon patient request if the prescription is for a schedule II opioid drug., 1 tablet B... Start Date: 05/20/20 Stop Date: 05/30/20 Status: Ordered clindamycin 1% topical gel 1 [...]
--- OUTSIDE RECORDS SUMMARY | 2023-02-03 22:27 | XMS_ITS | Continuity of Care Document ---
Author Name Unknown Organization [facility] Address [address] [place] [address]- Care Team Providers Care Citrus Fruit Packer Name Role Phone Judie Mills DO Primary Care Physician Encounter [facility] [place] Date(s): 12/01/20 - 12/31/[address] [address] Allergies, Adverse Reactions, Alerts Substance [...] 11/22/20 8:13:00 EDT, Route to Pharmacy Electronically, [facility] 53483, 187.6, cm, 10/19/20 9:25:00 EDT, Height, 101.4, kg, 08/27/20 1:59:00 EDT, Dry Weight Start Date: 11/22/20 Status: Ordered gabapentin 100 mg oral capsule 100 mg, 1, capsule, By Mouth, 3 times a day, # 90 capsule, Refills 11, Tot. Refills 11, Maintenance, 11/02/20 17:57:00 EDT, Route to Pharmacy Electronically, [facility]/pharmacy #[id number], Partial fill upon patient request if the [...] 11/25/20 15:58:00 EDT, Route to Pharmacy Electronically, [facility]/pharmacy #[id number], Partial fill upon patient request if the [...] Refills, Maintenance, 11/22/20 8:13:00 EDT, [facility], 187.6, cm, 10/19/20 9:25:00 EDT, Height, 101.4, [...]
--- OUTSIDE RECORDS SUMMARY | 2023-02-03 22:27 | XMS_ITS | Continuity of Care Document ---
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 Refills 5, Maintenance, 10/26/21 9:45:00 EDT, Route to Pharmacy Electronically, [facility]/pharmacy #[id number], 193, cm, 10/26/21 9:21:00 EDT, Height, [...] capsule, 5 Refills, Maintenance, 08/17/22 15:25:00 EDT, [facility] 60067, 193.04, cm, 07/23/22 14:07:00 EDT, Height, 99.6, kg, 06/06/22 18:00:00 EST, Dry Weight Start Date: 08/17/22 Status: Ordered Eliquis 5 mg oral tablet 1 tablet, By Mouth, 2 times a day, # 60 tablet, 11 Refills, 02/07/22 11:13:00 EDT, [facility]/pharmacy #[id number], 193, cm, 02/07/22 10:31:00 EDT, Height, 97.2, kg, 10/26/21 9:21:00 EDT, Dry Weight Start Date: 02/07/22 Status: Ordered ferrous sulfate 325 mg oral tablet TAKE 1 TABLET BY MOUTH EVERY DAY NEEDED Start Date: 09/12/22 Status: Ordered FLUoxetine 20 mg oral capsule 1, capsule, By Mouth, Daily, # 30 capsule, Refills 14, Maintenance, 08/13/22 15:55:00 EDT, Route toPharmacy Electronically, [facility] 610[facility], 193.04, cm, 07/23/22 14:07:00 EDT, Height, 99.6, [...] 02/22/22 9:42:00 EDT, Route to Pharmacy Electronically, [facility] 37914, 193, cm, 02/07/22 10:31:00 EDT, Height, 97.2, [...] capsule, 5 Refills, Maintenance, 08/13/22 15:28:00 EDT, [facility]/pharmacy #[id number], 193.04, cm, 07/23/22 14:07:00 EDT, Height, 99.6, kg, 06/06/22 18:00:00 EST, Dry Weight Start Date: 08/13/22 Status: Ordered oxycodone 15 mg oral tablet, extended release 1 tablet = 15 mg, By Mouth, Every 12 hours, # 60 tablet, 0 Refills, Maintenance, 10/16/22 16:53:00 EDT, ER Tablet, [facility]/pharmacy #1130, Partial fill upon patient request if [...] need: 99 months Number to fax to: [phone], 01/06/21 13:10:00 E... Start Date: 01/06/21 Status: Ordered scopolamine 1 mg/72 hr transdermal film, extended release See Instructions, APPLY 1 PATCH TO RIGHT MASTOID BONE EVERY 72 HOURS, # 10 each, 3 Refills, Maintenance, 06/29/22 11:46:00 EST, [facility]/pharmacy #[id number], APPLY 1 PATCH TO RIGHT MASTOID BONE EVERY 72 HOURS,193.04, cm, 06/29/22 11:17:00 EST, Height, 99.6, kg... Start Date: 06/29/22 Status: Ordered scopolamine 1 mg/72 hr transdermal film, extended release 1 film, Topically, Every 72 hours, Apply to right mastoid bone, # 24 each, 1 Refills, Maintenance, 07/13/22 10:00:00 EST, [facility]/pharmacy #[id number], Partial fill upon patient request if [...] EST, Route to Pharmacy Electronically, [facility]/pharmacy #[id number], Partial fill upon patient request if the [...] apex Confirmed Active N CP Care Management, Intake Manager Carmen Elizabeth [phone] Confirmed Active Therapeutic drug monitoring Confirmed Active Peripheral neuropathy Confirmed Active Spasticity Confirmed Active Tobacco dependence Confirmed Active Social History Social History Type Response Smoking Status 5-9 cigarettes (betw een 1/4 to 1/2 pack)/day in last 30 days entered on: 05/16/22 Sex Patient Care team information Care Team Personnel Name: Areli Pittman RN Position: [facility] ED RN W/OE and Tasks Member Role: Primary Care Nurse Name: Derek Tomas MD Position: [facility] Resident Member Role: PCP Address: Address: [address] [place] [address]- Name: Ally Boyd RN Position: [facility] RN Member Role: Primary Care Nurse Name: Axel Savage RN Position: S RN Member Role: Primary Care Nurse Name: Filemon King RN Position: S RN Member Role: Primary Care Nurse Name: Glenys Fox RN Position: [facility] RN Member Role: Primary Care Nurse Care Team Related Persons Name: BEVERLY REYNAGA Address: [address] [place] [address] Name: AISLINN DE LA PAZ Address: [address] [place] [address]
--- OUTSIDE RECORDS SUMMARY | 2023-02-03 22:27 | XMS_ITS | Continuity of Care Document ---
Author Name Unknown Organization [facility] Address [address] [place] [address]- Care Team Providers Care Snow Blower Name Role Phone Genoveva PAGAN, Derek Primary Care Physician [place] [facility] [place]22 [facility] [address] [place] [address]- Attending Physician: Terry Ryan MD Allergies, Adverse Reactions, Alerts No Known Allergies Immunizations Given and Recorded Vaccine Date Status Refusal Reason tetanus/diphtheria/pertussis, acel(Tdap) 09/13/19 Recorded Medications acetaminophen 325 mg oral capsule 2 capsule = 650 mg, By Mouth, Every 6 hours, PRN Pain , Moderate, # 90 capsule, 0 Refills, Maintenance, 01/21/22 20:50:00 EDT, Capsule, [facility]/pharmacy #[id number], Partial fill upon patient request if the prescription is for a schedule II opioid drug., 193, c... Start Date: 01/21/22 Status: Ordered amLODIPine 5 mg oral tablet 1 tablet, By Mouth, Daily, # 30 tablet, 11 Refills, [facility], 193, cm, 10/26/21 9:21:00 EDT,Height, 97.2, kg, 10/26/21 9:21:00 EDT, Dry Weight Start Date: 11/15/21 Status: Ordered baclofen 20 mg oral tablet 20 mg, 1, tablet, By Mouth, 4 times a day, # 120 tablet, Refills 5, Tot. Refills 5, Maintenance, 10/26/21 9:45:00 EDT, Route to Pharmacy Electronically, [facility]/pharmacy #207, 193, cm, 10/26/21 [...] 0 Refills, Maintenance, 04/06/20 16:11:00 EST, Gel, [facility]/pharmacy #[id number], Partial fill [...] 11/22/20 8:13:00 EDT, Route to Pharmacy Electronically, [facility] 95759, 187.6, cm, 10/19/20 9:25:00 EDT, Height, 101.4, kg, 08/27/20 1:59:00 EDT, Dry Weight Start Date: 11/22/20 Status: Ordered gabapentin 300 mg oral capsule 1, capsule, By Mouth, 3 times a day, # 90 capsule, Refills 5, Maintenance, 02/22/22 9:42:00 EDT, Route to Pharmacy Electronically, [facility] 84020, 193, cm, 02/07/22 10:31:00 EDT, Height, 97.2, kg, 10/26/21 9:21:00 EDT, Dry Weight Start Date: 02/22/22 Status: Ordered ibuprofen 600 mg oral tablet 600 mg, 1, tablet, By Mouth, Every 8 hours, PRN, # 100 tablet, Refills 0, Tot. Refills 0, Maintenance, Pain , Moderate, 01/21/22 20:49:00 EDT, [facility] Refills, Maintenance, 02/22/22 9:43:00 EDT, [facility], 193, cm, 02/07/22 10:31:00 EDT, Height, 97.2, kg, 10/26/21 9:21:00 EDT, Dry Weight Start Date: 02/22/22 Status: Ordered oxyCODONE 5 mg oral capsule 1 capsule = 5 mg, By Mouth, Every 6 hours, PRN as needed for pain, # 12 capsule, 0 Refills, Maintenance, 01/21/22 20:50:00 EDT, Capsule, [facility]/pharmacy #[id number], Partial fill [...] 03/15/21 22:43:00 EDT, [facility] Electron[facility], [facility] [...] need: 99 months Number to fax to: [phone], 01/06/21 13:10:00 E... Start Date: 01/06/21 Status: Ordered scopolamine 1 mg/72 hr transdermal film, extended release 1 film, Topically, Every 72 hours, Apply to right mastoid bone, # 10 each, 1 Refills, Acute 07/13/22 10:00:00 EST, 07/12/21 16:55:00 EST, [facility]/pharmacy #[id number], Partial [...] Refills, Maintenance, 11/22/20 8:13:00 EDT, [facility], 187.6, cm, 10/19/20 9:25:00 EDT, Height, 101.4, [...] Insomnia Confirmed Active N CP Care Management, Academic Physician Carmen Elizabeth [phone] Confirmed Active Therapeutic drug monitoring Confirmed Active Spasticity Confirmed Active Tobacco dependence Confirmed Active Vital Signs Most recent to oldest [Reference Range]: 1 Height 193 cm (04/02/22 10:29 AM) Weight 95.6 kg (04/02/22 10:29 AM) Oxygen Saturation [94-100 %] 100 % (04/02/22 10:29 AM) Pulse Rate [55-90 bpm] 71 bpm (04/02/22 10:29 AM) Body Mass Index [18.5-24.99 kg/m2] 25.67 kg/m2 *H* (04/02/22 10:29 AM) Blood Pressure [90-138/55-84 mm Hg] 125/ 73mm Hg (04/02/22 10:29 AM) Blood pressure sites Arm, left (04/02/22 10:29 AM) Weight Obtained Via Bed scale (04/02/22 10:29 AM) Social History Social History Type Response Smoking Status 10 or more cigarette s (1/2 pack or more)/day in last 30 days entered on: 02/29/20 Sex Patient Care team information Care Team Personnel Name: Bettye Carney Position: [facility] RN Member Role: Primary Care Nurse Name: Derek Tomas MD Position: [facility] Resident Member Role: PCP Address: Address: [address] [place] [address] Name: Ally Boyd RN Position: [facility] RN Member Role: Primary Care Nurse Name: Areli Whitaker RN Position: [facility] ED RN W/OE and Tasks Member Role: Primary Care Nurse Name: Axel Savage RN Position: S RN Member Role: Primary Care Nurse Name: Filemon King RN Position: [facility] RN Member Role: Primary Care Nurse Care Team Related Persons Name: BEVERLY REYNAGA Address: [address] [address] Name: AISLINN DE LA PAZ Address: [address] [address]
--- OUTSIDE RECORDS SUMMARY | 2023-02-03 22:27 | XMS_ITS | Continuity of Care Document ---
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 Refills 11, Maintenance, 10/31/20 12:56:00 EDT, Route to Pharmacy Electronically, [facility]/pharmacy #[id number], Partial fill upon patient requestif the prescription is for a schedule II opioid laura... Start Date: 10/31/20 Status: Ordered apixaban 5 mg oral tablet 1 tablet = 5 mg, By Mouth, 2 times a day, # 60 tablet, 11 Refills, Maintenance, 10/31/20 12:55:00 EDT, Tablet, [facility]/pharmacy #[id number], Partial fill upon patient request if the prescription is for a schedule II opioid drug., 187.6, cm, 10/19/20 9:25:00 EDT... Start Date: 10/31/20 Status: Ordered baclofen 20 mg oral tablet 20 mg, 1, tablet, By Mouth, 3 times a day, # 90 tablet, Refills 5, Tot. Refills 5, Maintenance, 08/16/21 10:36:00 EDT, Route to Pharmacy Electronically, [facility]/pharmacy #[id number], 193, cm, 07/27/21 8:35:00 EDT, Height, [...] Maintenance, 04/06/20 16:11:00 EST, Gel, [facility]/pharmacy #[id number], Partial fill upon patient request, 1 [...] EDT, Route to Pharmacy Electronically, [facility] 79208, 187.6, cm, 10/19/20 9:25:00 EDT, Height, 101.4, [...] 04/03/21 14:16:00 EST, [id number] Note bedtime dose change, 193, cm, 03/15/21 16:10:00 EDT, Height, 104.5,... Start Date: 04/03/21 Stop Date: 08/01/21 Status: Ordered metoclopramide 10 mg oral tablet, disintegrating 1 tablet = 10 mg, By Mouth, Every 8 hours, PRN Nausea & Vomiting, # 28 tablet, 0 Refills, Maintenance, 02/24/21 17:09:00 EDT, DIS Tablet, [facility]/pharmacy #[id number], Partial fill upon patient request if [...] Maintenance, 03/13/21 13:24:00 EDT, ECCapsule, [facility]/pharmacy #[id number], Partial fill upon patient request if [...] EDT, Route to Pharmacy Electronically, [facility]/pharmacy #[id number], Partial fill upon patient request if [...] need: 99 months Number to fax to: [phone], 01/06/21 13:10:00 E... Start Date: 01/06/21 Status: Ordered scopolamine 1 mg/72 hr transdermal film, extended release 1 film, Topically, Every 72 hours, Apply to right mastoid bone, # 10 each, 1 Refills, Acute 07/13/22 10:00:00 EST, 07/12/21 16:55:00 EST, [facility]/pharmacy #[id number], Partial fill upon patient request if [...] Refills, Maintenance, 11/22/20 8:13:00 EDT, [facility], 187.6, cm, 10/19/20 9:25:00 EDT, Height, 101.4, [...]
--- OUTSIDE RECORDS SUMMARY | 2023-02-03 22:28 | XMS_ITS | Continuity of Care Document ---
Author Name Unknown Organization [facility] Address [address] [place] [address] Dr [address] [place] [address]- Care Team Providers Care Network Operations Project Manager Name Role Phone Derek Tomas MD Primary Care Physician Encounter [facility] [place] Date(s): 07/20/22 - 08/19/[address] [place] [address]- Attending Physician: Admtr, [id number] Admitting Physician: Admtr, [...] # 30 tablet, 11 Refills, [facility] STORE [id number], 193, cm, 10/26/21 9:21:00 EDT,Height, 97.2, kg, 10/26/21 9:21:00 EDT, Dry Weight Start Date: 11/15/21 Status: Ordered baclofen 20 mg oral tablet 20 mg, 1, tablet, By Mouth, 4 times a day, # 120 tablet, Refills 5, Tot. Refills 5, Maintenance, 10/26/21 9:45:00 EDT, Route to Pharmacy Electronically, [facility]/pharmacy #[id number], 193, cm, 10/26/21 [...] Refills, Maintenance, 08/17/22 15:25:00 EDT, [facility], 193.04, cm, 07/23/22 14:07:00 EDT, Height, 99.6, kg, 06/06/22 18:00:00 EST, Dry Weight Start Date: 08/17/22 Status: Ordered Eliquis 5 mg oral tablet 1 tablet, By Mouth, 2 times a day, # 60 tablet, 11 Refills, 02/07/22 11:13:00 EDT, [facility]/pharmacy #[id number], 193, cm, 02/07/22 [...] 08/13/22 15:55:00 EDT, Route toPharmacy Electronically, [facility] STORE [id number], 193.04, cm, 07/23/22 14:07:00 EDT, Height, 99.6, kg, 06/06/22 18:00:00 EST, Dry Weight Start Date: 08/13/22 Status: Ordered gabapentin 300 mg oral capsule 1, capsule, By Mouth, 3 times a day, # 90 capsule, Refills 5, Maintenance, 02/22/22 9:42:00 EDT, Route to Pharmacy Electronically, [facility] STORE 56119, 193, cm, 02/07/22 10:31:00 EDT, Height, 97.2, [...] 5 Refills, Maintenance, 08/13/22 15:28:00 EDT, [facility]/pharmacy #[id number], 193.04, cm, 07/23/22 14:07:00 EDT, Height, 99.6, kg, 06/06/22 18:00:00 EST, Dry Weight Start Date: 08/13/22 Status: Ordered oxycodone 15 mg oral tablet, extended release 1 tablet = 15 mg, By Mouth, Every 12 hours, # 60 tablet, 0 Refills, Maintenance, 07/23/22 14:17:00 EDT, ER Tablet, [facility]/pharmacy #[id number], Partial fill upon [...] need: 99 months Number to fax to: [phone], 01/06/21 13:10:00 E... Start Date: 01/06/21 Status: Ordered scopolamine 1 mg/72 hr transdermal film, extended release See Instructions, APPLY 1 PATCH TO RIGHT MASTOID BONE EVERY 72 HOURS, # 10 each, 3 Refills, Maintenance, 06/29/22 11:46:00 EST, [facility]/pharmacy #[id number], APPLY 1 PATCH [...] Details, Route to Pharmacy Electronically, [facility]/pharmacy #1130, 193.04, cm, 07/04/22... Start [...] EST, [id number] Partial fill upon patient request if the [...] apex Confirmed Active N CP Care Management, Global Category Manager Carmen Elizabeth [phone] Confirmed Active Therapeutic drug monitoring Confirmed Active Peripheral neuropathy Confirmed Active Spasticity Confirmed Active Tobacco dependence Confirmed Active Social History Social History Type Response Smoking Status 5-9 cigarettes (betw een 1/4 to 1/2 pack)/day in last 30 days entered on: 05/16/22 Sex Patient Care team information Care Team Personnel Name: Areli Pittman RN Position: [facility] ED RN W/OE and Tasks Member Role: Primary Care Nurse Name: Bettye Carney Position: [facility] RN Member Role: Primary Care Nurse Name: Derek Tomas MD Position: [facility] Resident Member Role: PCP Address: Address: [address] [place] [address]- Name: Ally Boyd RN Position: [facility] RN Member Role: Primary Care Nurse Name: Axel Savage RN Position: [facility] RN Member Role: Primary Care Nurse Name: Filemon King RN Position: [facility] RN Member Role: Primary Care Nurse Name: Glenys Fox RN Position: [facility] RN Member Role: Primary Care Nurse Care Team Related Persons Name: BEVERLY REYNAGA Address: home [address] [place] [address] Name: AISLINN DE LA PAZ Address: [address] [address]
--- OUTSIDE RECORDS SUMMARY | 2023-02-03 22:28 | XMS_ITS | Continuity of Care Document ---
Author Name Unknown Organization [facility] Address [address] [place] [address]- Care Team Providers Care Racetrack Steward Name Role Phone Judie Mills DO Primary Care Phys[id number] Date(s): 10/07/20 - 03/15/21 [facility] [address] [place] [address]- Discharge Disposition: A-D/C Home Attending Physician: Mary Guerra MD Admitting Physician: Mary Guerra MD Referring Physician: Ana Fletcher MD Allergies, Adverse Reactions, Alerts Substance Reaction [...] 11 Refills, Maintenance, 10/31/20 12:55:00 EDT, Tablet, [facility]/pharmacy #[id number], Partial fill upon patient request if the prescription is for a schedule II opioid drug., 187.6, cm, 10/19/20 9:25:00 EDT... Start Date: 10/31/20 Status: Ordered clindamycin 1% topical gel 1 application, Topically, 2 times a day, # 60 Gm, 0 Refills, Maintenance, 04/06/20 16:11:00 EST, Gel, [facility]/pharmacy #[id number], Partial fill upon [...] to Pharmacy Electronically, [facility] STORE 92328, 187.6, cm, 10/19/20 9:25:00 EDT, Height, 101.4, [...] Refills, Maintenance, 02/24/21 17:09:00 EDT, DIS Tablet, [facility]/pharmacy #[id number], Partial fill upon [...] 5 Refills, Maintenance, 03/13/21 13:24:00 EDT, ECCapsule, [facility]/pharmacy #[id number], Partial fill upon [...] 03/15/21 22:43:00 EDT, [facility] Electronically, [facility] need: 99 months Number to fax to: [phone], 01/06/21 13:10:00 E... Start Date: 01/06/21 Status: Ordered SEROquel 25 mg oral tablet 25 mg, 1, tablet, By Mouth, 2 times a day, # 60 tablet, Refills 3, Tot. Refills 3, Maintenance, 11/25/20 15:58:00 EDT, Route to Pharmacy Electronically, [facility]/pharmacy #[id number], Partial fill upon patient request if the [...] tablet, 11 Refills, Maintenance, 11/22/20 8:13:00 EDT, [facility] STORE 81438, 187.6, cm, 10/19/20 9:25:00 EDT, Height, 101.4, [...]
--- OUTSIDE RECORDS SUMMARY | 2023-02-03 22:28 | XMS_ITS | Continuity of Care Document ---
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 Name Role Phone Judie Mills DO Primary Care Physician Encounter [facility] [place] Date(s): 06/15/21 - 07/15/[address] [address] Attending Physician: Sangeetha Latif Admitting Physician: Admtr, [...] Refills, Maintenance, 04/06/20 16:11:00 EST, Gel, [facility]/pharmacy #[id number], Partial fill upon patient request, 1 [...] 8:13:00 EDT, Route to Pharmacy Electronically, [facility] STORE 67107, 187.6, cm, 10/19/20 9:25:00 EDT, Height, 101.4, kg, 08/27/20 1:59:00 EDT, Dry Weight Start Date: 11/22/20 Status: Ordered gabapentin 300 mg oral capsule 300 mg, 1, capsule, By Mouth, 3 times a day, # 90 capsule, Refills 5, Tot. Refills 5, Maintenance, 07/12/21 17:20:00 EST, Route to Pharmacy Electronically, [facility]/pharmacy #[id number], Partial fill upon patient request if the prescription is for a schedule II... Start Date: 07/12/21 Status: Ordered gabapentin 300 mg oral capsule 300 mg, 1, capsule, By Mouth, Daily at bedtime, # 30 capsule, Refills 3, Tot. Refills 3, Maintenance, 04/03/21 14:16:00 EST, [id number], Note bedtime dose change, 193, cm, 03/15/21 16:10:00 EDT, Height, 104.5,... Start Date: 04/03/21 Stop Date: 08/01/21 Status: Ordered metoclopramide 10 mg oral tablet, disintegrating 1 tablet = 10 mg, By Mouth, Every 8 hours, PRN Nausea & Vomiting, # 28 tablet, 0 Refills, Maintenance, 02/24/21 17:09:00 EDT, DIS Tablet, [facility]/pharmacy #[id number], Partial fill upon patient request if [...] Refills, Maintenance, 03/13/21 13:24:00 EDT, ECCapsule, [facility]/pharmacy #[id number], Partial fill upon patient request if [...] 22:43:00 EDT, Route to Pharmacy Electronically, [facility]/pharmacy #[id number], Partial fill upon patient request if the prescription is for a schedule II opioid drChapin Start Date: 03/15/21 Status: Ordered Right ankle & foot orthosis Right ankle & foot orthosis, See Instructions, # 1 each, Refills 1, Tot. Refills 1, Maintenance, Please dispense 1 right ankle and foot othosis Dx: R29.898, R26.81, M25.373 Length of need: 99 months Number to fax to: [phone], 01/06/21 13:10:00 E... Start Date: 01/06/21 Status: Ordered scopolamine 1 mg/72 hr transdermal film, extended release 1 film, Topically, Every 72 hours, Apply to right mastoid bone, # 10 each, 1 Refills, Acute 07/13/22 10:00:00 EST, 07/12/21 16:55:00 EST, [facility]/pharmacy #[id number], Partial fill upon patient request if [...] 11 Refills, Maintenance, 11/22/20 8:13:00 EDT, [facility] STORE 42629, 187.6, cm, 10/19/20 9:25:00 EDT, Height, 101.4, [...]
--- OUTSIDE RECORDS SUMMARY | 2023-02-03 22:28 | XMS_ITS | Continuity of Care Document ---
Author Name Unknown Organization [facility] Address Unknown Care Team Providers Care Habitat Biologist Name Role Phone Judie Mills DO Primary Care Physician Encounter [facility] [place] Date(s): 08/21/21 - 09/20/21 [facility] Attending Physician: Sangeetha Latif Admitting Physician: Sangeetha [...] 11 Refills, Maintenance, 10/31/20 12:55:00 EDT, Tablet, [facility]/pharmacy #[id number], Partial fill upon patient request if the prescription is for a schedule II opioid drug., 187.6, cm, 10/19/20 9:25:00 EDT... Start Date: 10/31/20 Status: Ordered baclofen 20 mg oral tablet 20 mg, 1, tablet, By Mouth, 3 times a day, # 90 tablet, Refills 5, Tot. Refills 5, Maintenance, 08/16/21 10:36:00 EDT, Route to Pharmacy Electronically, [facility]/pharmacy #[id number], 193, cm, 07/27/21 8:35:00 [...] 0 Refills, Maintenance, 04/06/20 16:11:00 EST, Gel, [facility]/pharmacy #[id number], Partial [...] Electronically, [facility] STORE 14006, 187.6, cm, 10/19/20 9:25:00 EDT, Height, 101.4, [...] 04/03/21 14:16:00 EST, [id number], Note bedtime dose change, 193, cm, 03/15/21 16:10:00 EDT, Height, 104.5,... Start Date: 04/03/21 Stop Date: 08/01/21 Status: Ordered metoclopramide 10 mg oral tablet, disintegrating 1 tablet = 10 mg, By Mouth, Every 8 hours, PRN Nausea & Vomiting, # 28 tablet, 0 Refills, Maintenance, 02/24/21 17:09:00 EDT, DIS Tablet, [facility]/pharmacy #[id number], Partial [...] 5 Refills, Maintenance, 03/13/21 13:24:00 EDT, ECCapsule, [facility]/pharmacy #[id number], Partial [...] 03/15/21 22:43:00 EDT, [facility] Pharm[facility] Electronically, [facility] [...] need: 99 months Number to fax to: [phone], 01/06/21 13:10:00 E... Start Date: 01/06/21 Status: Ordered scopolamine 1 mg/72 hr transdermal film, extended release 1 film, Topically, Every 72 hours, Apply to right mastoid bone, # 10 each, 1 Refills, Acute 07/13/22 10:00:00 EST, 07/12/21 16:55:00 EST, [facility]/pharmacy #[id number], Partial [...] tablet, 11 Refills, Maintenance, 11/22/20 8:13:00 EDT, [facility] STORE 92186, 187.6, cm, 10/19/20 9:25:00 EDT, Height, 101.4, [...]
--- OUTSIDE RECORDS SUMMARY | 2023-02-03 22:28 | XMS_ITS | Continuity of Care Document ---
Author Name Unknown Organization [facility] Address [address] [place] [address] [address] [place] [address]- Care Team Providers Care Billing Assistant Name Role Phone Derek Tomas MD Primary Care Physician [place] [facility] [place]s): 05/16/22 - 05/23/22 [facility] [address] [place] [address]- Attending Physician: Shayan Ruelas MD Allergies, Adverse Reactions, Alerts No Known Allergies Immunizations Given and Recorded Vaccine Date Status Refusal Reason influenza virus vaccine, inactivated 05/18/22 Give n tetanus/diphtheria/pertussis, acel(Tdap) 09/13/19 Recorded Medications acetaminophen 325 mg oral capsule 2 capsule = 650 mg, By Mouth, Every 6 hours, PRN Pain , Moderate, # 90 capsule, 0 Refills, Maintenance, 01/21/22 20:50:00 EDT, Capsule, [facility]/pharmacy #[id number], Partial fill upon patient request if the prescription is for a schedule II opioid drug., 193, c... Start Date: 01/21/22 Status: Ordered acitretin 10 mg oral capsule TAKE 1 CAPSULE EVERY OTHER DAY FOR NEXT 2 WEEKS THEN 1 CAPSULE DAILY Start Date: 05/17/22 Status: Ordered amLODIPine 5 mg oral tablet 1 tablet, By Mouth, Daily, # 30 tablet, 11 Refills, [facility], 193, cm, 10/26/21 9:21:00 EDT,Height, 97.2, kg, 10/26/21 9:21:00 EDT, Dry Weight Start Date: 11/15/21 Status: Ordered Augmentin 875 mg-125 mg oral tablet 1 tablet, By Mouth, Every 12 hours, for 7 days, # 14 tablet, 0 Refills, Acute 05/27/22 19:51:00 EST, 05/20/22 19:51:00 EST, Tablet, [facility]/pharmacy #[id number], Partial fill upon patient request if the prescription is for a schedule II opioid drug., 193, cm, 0... Start Date: 05/20/22 Stop Date: 05/27/22 Status: Ordered baclofen 20 mg oral tablet 20 mg, 1, tablet, By Mouth, 4 times a day, # 120 tablet, Refills 5, Tot. Refills 5, Maintenance, 10/26/21 9:45:00 EDT, Route to Pharmacy Electronically, [facility]/pharmacy #[id number], 193, cm, 10/26/21 9:21:00 EDT, [...] 60 tablet, 11 Refills, 02/07/22 11:13:00 EDT, [facility]/pharmacy #[id number], 193, cm, 02/07/22 10:31:00 EDT, [...] 02/22/22 9:42:00 EDT, Route to Pharmacy Electronically, [facility] STORE 99226, 193, cm, 02/07/22 10:31:00 EDT, Height, 97.2, kg, 10/26/21 9:21:00 EDT, Dry Weight Start Date: 02/22/22 Status: Ordered omeprazole 40 mg oral enteric coated capsule 1 capsule, By Mouth, Daily, # 30 capsule, 5 Refills, Maintenance, 02/22/22 9:43:00 EDT, [facility] STORE 06437, 193, cm, 02/07/22 10:31:00 EDT, Height, 97.2, kg, 10/26/21 9:21:00 EDT, Dry Weight Start Date: 02/22/22 Status: Ordered PROzac 20 mg oral capsule 20 mg, 1, capsule, By Mouth, Daily, # 90 capsule, Refills 4, Tot. Refills 4, Maintenance, 03/15/21 22:43:00 EDT, Route to Pharmacy Electronically, [facility]/pharmacy #[id number], Partial fill upon patient request [...] need: 99 months Number to fax to: [phone], 01/06/21 13:10:00 E... Start Date: 01/06/21 Status: Ordered scopolamine 1 mg/72 hr transdermal film, extended release 1 film, Topically, Every 72 hours, Apply to right mastoid bone, # 24 each, 1 Refills, Maintenance, 07/13/22 10:00:00 EST, [facility]/pharmacy #[id number], Partial fill upon patient request if the prescription is for a schedule II opioid drug., 1 film Topically Lucía... Start Date: 07/13/22 Status: Ordered sulfamethoxazole-trimethoprim 800 mg-160 mg oral tablet 1 tablet, By Mouth, 2 times a day, for 6 days, # 12 tablet, 0 Refills, Acute 05/24/22 7:19:00 EST, 05/18/22 7:19:00 EST, Tablet, [facility], Partial fill upon patient request if the prescription is for a schedule II opioid drug., 1 table... Start Date: 05/18/22 Stop Date: 05/24/22 Status: Ordered tiZANidine 2 mg oral tablet See Instructions, 1 tablet by mouth twice a day, # 60 tablet, Refills 3, Tot. Refills 3, Maintenance, 12/13/21 16:11:00 EDT, Instructions Replace Required Details, Route to Pharmacy Electronically, [facility]/pharmacy #[id number], Partial fill upon patient request... Start Date: 12/13/21 Status: Ordered Tylenol 325 mg oral tablet 650 mg, 2, tablet, By Mouth, Every 4 hours, PRN, # 120 tablet, Refills 0, Tot. Refills 0, Acute 05/21/23 19:50:00 EST, for pain, 05/20/22 19:50:00 EST, Route to Pharmacy Electronically, [facility]/pharmacy #[id number], Partial fill upon patient request if the [...] Insomnia Confirmed Active N CP Care Management, Regional Vice President Life Sales Carmen Elizabeth [phone] Confirmed Active Therapeutic drug monitoring Confirmed Active Spasticity Confirmed Active Tobacco dependence Confirmed Active Vital Signs Most recent to oldest [Reference Range]: 1 Height 193 cm (05/16/22 2:05 PM) Weight 98.7 kg (05/16/22 2:05 PM) Pulse Rate [55-90 bpm] 59 bpm (05/16/22 2:05 PM) Body Mass Index [18.5-24.99 kg/m2] 26.5 kg/m2 *H* (05/16/22 2:05 PM) Blood Pressure [90-138/55-84 mm Hg] 112/ 66mm Hg (05/16/22 2:05 PM) Respiratory Rate [16-30 br/min] 16 br/mi n (05/16/22 2:05 PM) Temperature [96.8-100.4 DegF] 97.3 DegF (05/16/22 2:05 PM) Blood pressure sites Arm, left (05/16/22 2:05 PM) Temperature Route Temporal (05/16/22 2:05 PM) Weight Obtained Via Standing scale (05/16/22 2:05 PM) Social History Social History Type Response Smoking Status 5-9 cigarettes (betw een 05/16 to 1/2 pack)/day in last 30 days entered on: 05/16/22 Sex Patient Care team information Care Team Personnel Name: Bettye Carney Position: S RN Member Role: Primary Care Nurse Name: Derek Tomas MD Position: S Resident Member Role: PCP Address: Address: [address] [place] [id number] Name: Ally Boyd RN Position: S RN Member Role: Primary Care Nurse Name: Areli Whitaker RN Position: [facility] ED RN W/OE and Tasks Member Role: Primary Care Nurse Name: Axel Savage RN Position: S RN Member Role: Primary Care Nurse Name: Filemon King RN Position: S RN Member Role: Primary Care Nurse Name: Glenys Fox RN Position: S RN Member Role: Primary Care Nurse Care Team Related Persons Name: BEVERLY REYNAGA Address: home [address] [place] [address] Name: AISLINN DE LA PAZ Address: [address] [place] [address]
--- OUTSIDE RECORDS SUMMARY | 2023-02-03 22:28 | XMS_ITS | Continuity of Care Document ---
Author Name Unknown Organization [facility] ter Address [address] [place] [id number]- Care Team Providers Care Registry Np Name Role Phone Derek Tomas MD Primary Care Physician Encounter [facility] Date(s): 05/20/22 - 05/20/[address] [address]- Encounter Diagnosis Hidradenitis suppurativa(Final) - 05/20/22 Abscess(Final) - 05/20/22 Discharge Disposition: Discharged to Hospice-Home (routine care Attending Physician: Glneys Anderson MD Admitting Physician: Glenys Anderson MD Referring Physician: Not on Staff, Referring [...] 0 Refills, Maintenance, 01/21/22 20:50:00 EDT, Capsule, [facility]/pharmacy #[id number], Partial fill upon patient request if the prescription is for a schedule II opioid drug., 193, c... Start Date: 01/21/22 Status: Ordered acitretin 10 mg oral capsule TAKE 1 CAPSULE EVERY OTHER DAY FOR NEXT 2 WEEKS THEN 1 CAPSULE DAILY Start Date: 05/17/22 Status: Ordered amLODIPine 5 mg oral tablet 1 tablet, By Mouth, Daily, # 30 tablet, 11 Refills, [id number], 193, cm, 10/26/21 9:21:00 EDT,Height, 97.2, kg, 10/26/21 9:21:00 EDT, Dry Weight Start Date: 11/15/21 Status: Ordered Augmentin 875 mg-125 mg oral tablet 1 tablet, By Mouth, Every 12 hours, for 7 days, # 14 tablet, 0 Refills, Acute 05/27/22 19:51:00 EST, 05/20/22 19:51:00 EST, Tablet, [facility]/pharmacy #[id number], Partial fill upon patient request if the prescription is for a schedule II opioid drug., 193, cm, 0... Start Date: 05/20/22 Stop Date: 05/27/22 Status: Ordered baclofen 20 mg oral tablet 20 mg, 1, tablet, By Mouth, 4 times a day, # 120 tablet, Refills 5, Tot. Refills 5, Maintenance, 10/26/21 9:45:00 EDT, Route to Pharmacy Electronically, [facility]/pharmacy #[id number], 193, cm, 10/26/21 9:21:00 EDT, [...] tablet, 11 Refills, 02/07/22 11:13:00 EDT, [facility]/pharmacy #[id number], 193, cm, 02/07/22 10:31:00 EDT, [...] EDT, Route to Pharmacy Electronically, [id number], 193, cm, 02/07/22 10:31:00 EDT, Height, 97.2, kg, 10/26/21 9:21:00 EDT, Dry Weight Start Date: 02/22/22 Status: Ordered MorPHINE Inj 4 mg, Injection, IV Push Slowly, Once, STAT, 05/20/22 17:24:00 EST, Stop date 05/20/22 17:24:00 EST Start Date: 05/20/22 Stop Date: 05/20/22 Status: Completed omeprazole 40 mg oral enteric coated capsule 1 capsule, By Mouth, Daily, # 30 capsule, 5 Refills, Maintenance, 02/22/22 9:43:00 EDT, [facility], 193, cm, 02/07/22 10:31:00 EDT, Height, 97.2, kg, 10/26/21 9:21:00 EDT, Dry Weight Start Date: 02/22/22 Status: Ordered oxyCODONE 5 mg oral tablet 5 mg, 1, tablet, By Mouth, Every 6 hours, PRN, Do not drive on narcotic medication., # 5 tablet, Refills 0, Tot. Refills 0, Acute 05/21/22 7:20:00 EST, Pain , Moderate, 05/18/22 7:19:00 EST, Route toPharmacy Electronically, [facility] 3,... Start Date: 05/18/22 Stop Date: 05/21/22 Status: Ordered oxyCODONE 7.5 mg oral tablet 1 tablet = 7.5 mg, By Mouth, Every 6 hours, for 3 days, # 12 tablet, 0 Refills, Acute 05/23/22 19:51:00 EST, 05/20/22 19:51:00 EST, [facility]/pharmacy #[id number], Partial fill upon patient request if the prescription is for a schedule II opioid drug., 193, cm, 0... Start Date: 05/20/22 Stop Date: 05/23/22 Status: Ordered PROzac 20 mg oral capsule 20 mg, 1, capsule, By Mouth, Daily, # 90 capsule, Refills 4, Tot. Refills 4, Maintenance, 03/15/21 22:43:00 EDT, Route to Pharmacy Electronically, [facility]/pharmacy #[id number], Partial fill upon patient request [...] need: 99 months Number to fax to: [phone], 01/06/21 13:10:00 E... Start Date: 01/06/21 Status: Ordered scopolamine 1 mg/72 hr transdermal film, extended release 1 film, Topically, Every 72 hours, Apply to right mastoid bone, # 24 each, 1 Refills, Maintenance, 07/13/22 10:00:00 EST, [facility]/pharmacy #[id number], Partial fill upon patient request if the prescription is for a schedule II opioid drug., 1 film Topically Lucía... Start Date: 07/13/22 Status: Ordered sulfamethoxazole-trimethoprim 800 mg-160 mg oral tablet 1 tablet, By Mouth, 2 times a day, for 6 days, # 12 tablet, 0 Refills, Acute 05/24/22 7:19:00 EST, 05/18/22 7:19:00 EST, Tablet, [facility] 3, Partial fill upon patient request if the prescription is for a schedule II opioid drug., 1 table... Start Date: 05/18/22 Stop Date: 05/24/22 Status: Ordered tiZANidine 2 mg oral tablet See Instructions, 1 tablet by mouth twice a day, # 60 tablet, Refills 3, Tot. Refills 3, Maintenance, 12/13/21 16:11:00 EDT, Instructions Replace Required Details, Route to Pharmacy Electronically, [facility]/pharmacy #[id number], Partial fill upon patient request... Start Date: 12/13/21 Status: Ordered Tylenol 325 mg oral tablet 650 mg, 2, tablet, By Mouth, Every 4 hours, PRN, # 120 tablet, Refills 0, Tot. Refills 0, Acute 05/21/23 19:50:00 EST, for pain, 05/20/22 19:50:00 EST, Route to Pharmacy Electronically, [facility]/pharmacy #[id number], Partial fill upon patient request if the [...] of buttock Confirmed Active Insomnia Confirmed Active [facility] Care Management, Mark Up Designer Carmen Elizabeth [phone] Confirmed Active Therapeutic drug monitoring Confirmed Active Spasticity Confirmed Active Tobacco dependence Confirmed Active Results Radiology Reports * Exam Date Time Procedure Performing Provider Status 05/20/22 4:[address] Abd/Pelvis W/ IV Contrast Only Jada Simon; Auth (Verified) Notes: (CT Abd/Pelvis W/ IV Contrast Only) Reason For Exam: right buttock pain, hx of hiddradenitis supparitiva;Other: RESULT: CT Abd/Pelvis W/ IV Contrast Only CT Abd/Pelvis W/ IV Contrast Only Hx of Present Illness: pt with recent dc for same, ran out of percocet yesterday, co increased painto L buttocks; Reason: Other:; right buttock pain, hx of hiddradenitis supparitiva; Clinical Question(s): Other:; abscess; Order Comment: TECHNIQUE: Spiral CT through the abdomen and pelvis with IV contrast formatted in 3 planes. 100 cc of Omnipaque 300 was administered intravenously. This study was performed without oral contrast. Weight-based protocol using automatic tube modulation was used to optimize exposure parameters. CTDIvol Body: 20.20 mGy, DLP Body: 1416 mGy*cm. COMPARISON: Prior CT of the abdomen and pelvis dated May 16, 2022. FINDINGS: Time Clock Repairer View Findings, Lines and Tubes: None. Visualized Chest: Mild bibasilar atelectasis. No pleural or pericardial effusion. Diaphragm: Normal. Liver: Normal. Gallbladder: No CT evidence of gallbladder pathology. Bile ducts: No biliary ductal dilation. Spleen: Normal. Pancreas: Normal. Adrenal glands: Normal. Kidneys and ureters: No hydronephrosis, stones, or suspicious masses. Bladder: Normal. Reproductive organs: Unremarkable. Stomach, small bowel, and large bowel: Normal. Appendix: Normal. Peritoneum and retroperitoneum: No ascites or pneumoperitoneum. No omental or mesenteric lesions. Lymph nodes: Mildly increased number of iliac chain lymph nodes without pathologic enlargement, likely reactive. Similar mild prominence of inguinal and right external iliac lymph nodes, also most likely reactive. Blood vessels: Normal. No aneurysm. No evidence of venous thrombosis. Abdominal and pelvic wall: Similar diffuse heterogeneous skin thickening of the superficial skin ofthe buttocks bilaterally with a small superficial drain noted in place on the right. There are few more focal ovoid regions of low attenuation suggesting developing fluid collections, for example measuring up to 2.0 x 1.4 cm in the left posterolateral buttock (series 201 image 149). Inferior most as pects of these changes are not included within the [id number]. The overall degree of skin thickening may be slightly worsened from prior study, for example measuring up to 2 cm inferiorly on the left (series 2 image 157), previously 1.4 cm, also this may be due to slight differences in patient positioning. Bones: Severe degenerative changes of the left hip with a transcervical screw noted in place. Moderate degenerative changes of the right hip. IMPRESSION: Similar to slightly worsened extensive soft tissue thickening of the superficial soft tissues of both gluteal regions, with scattered areas of more focal low attenuation that may represent developingfluid collections. No clear drainable fluid collection at this time. WSN: [id number] Ordering Physician: Meena Potts Dictated By: Alton Le MD Dictated Date/Time: 05/20/22 5:03 pm Reviewed By: Alton Le MD Signed By: Alton Le MD Signed Date/Time: 05/20/22 5:03 pm Transcribed By: ZEHRA Transcribed Date/Time: 05/20/22 4:47 pm Vital Signs Most recent to oldest [Reference Range]: 1 2 3 Oxygen Saturation [94-100 %] 99 % (05/20/22 7:39 PM) 98 % (05/20/22 5:02 PM) 99 % (05/20/22 1:30 PM) Pulse Rate [55-90 bpm] 73 bpm (05/20/22 7:39 PM) 62 bpm (05/20/22 5:02 PM) 64 bpm (05/20/22 1:30 PM) Blood Pressure [90-138/55-84 mm Hg] 137/62mm Hg (05/20/22 7:39 PM) 113/78mm Hg (05/20/22 5:02 PM) 131/52mm Hg (05/20/22 1:30 PM) Respiratory Rate [16-30 br/min] 17 br/min (05/20/22 7:39 PM) 19 br/min (05/20/22 6:10 PM) 20 br/min (05/20/22 5:40 PM) Temperature [96.8-100.4 DegF] 98.6 DegF (05/20/22 7:39 PM) 98 DegF (05/20/22 5:02 PM) 99.6 DegF (05/20/22 1:30 PM) Mode of Delivery (Oxygen) Room air (05/20/22 7:39 PM) Room air (05/20/22 5:02 PM) Room air (05/20/22 1:30 PM) Blood pressure sites Arm, left (05/20/22 7:39 PM) Arm, left (05/20/22 5:02 PM) Arm, left (05/20/22 1:30 PM) Temperature Route Oral (05/20/22 7:39 PM) Oral (05/20/22 5:02 PM) Oral (05/20/22 1:30 PM) Social History Social History Type Response Smoking Status 5-9 cigarettes (betw een /4 to 1/2 pack)/day in last 30 days entered on: 05/16/22 Sex Note * Corie Farias DO: PERFORM Event Display: Patient Education Leaflets Authored Date: [id number] Abscess (Incision &&Drainage) ?? [id number] Abscess (Incision &&Drainage) An abscess is sometimes called a boil. It happens when bacteria get trapped under the skin and start to grow. Pus forms inside the abscess as the body responds to the bacteria. An abscess can happen with an insect bite, ingrown hair, blocked oil gland, pimple, cyst, or puncture wound. Your healthcare provider has drained the pus from your abscess. If the abscess pocket was large, your provider may have put in gauze packing. Your provider will need to remove or replace it on your next visit. Antibiotics may have been prescribed if the infection is spreading around the wound. But you may not need them to treat a simple abscess. The wound??will take about 1 to 2 weeks to heal, depending on the size of the abscess. Healthy tissue will grow from the bottom and sides of the opening until it seals over. Home care These tips can help your wound heal: ??? The wound may drain for the first 2 days. Cover the wound with a clean dry dressing. Change the??dressing if it becomes soaked with blood or pus. ??? If a gauze packing was placed inside the abscess pocket, you may be told to remove it yourself. You may do this in the shower. Once the packing is removed, you should wash the area in the shower, or clean thearea as directed by your healthcare provider. Continue to do this until the skin opening has closed. Carefully throw away the packing to prevent spreading any infection. Make sure you wash your handsafter changing the packing or cleaning the wound. ??? If you were prescribed antibiotics, take themas directed until they are all gone. ??? You may use acetaminophen or ibuprofen to control pain, unless another pain medicine was prescribed.??If you have liver disease or ever had a stomach ulcer, talk with your healthcare provider before using these medicines. ?? Follow-up care Follow up with your healthcare provider, or as advised. If a gauze packing was put in your wound, it should be removed in 1 to 2 days, or as directed. Check your wound every day for any signs that the infection is getting worse. The signs are listed below. ?? When to get medical advice Call your healthcare provider right away if any of these occur: ??? Increasing redness or swelling ??? Red streaks in the skin leading away from the wound ??? Increasing local pain or swelling ??? Continued pus draining from the wound 2 days after treatment ??? Fever of 100.4??F (38??C) or higher, or as directed by your provider ??? Boil returns after treatment ?? Last Reviewed Date: 2021 ?? [employer]. All rights reserved. This information is not intended as a substitute for professional medical care. Always follow your healthcare professional's instructions. ?? CT Abdomen and Pelvis W contrast IV * [facility] , CIS S: NATASHA Le MD, Alton Lockett: VERIFY Event Display: Result: Authored Date: [id number] CT Abd/Pelvis W/ IV Contrast Only Hx of Present Illness: pt with recent dc for same, ran out of percocet yesterday, co increased painto L buttocks; Reason: Other:; right buttock pain, hx of hiddradenitis supparitiva; Clinical Question(s): Other:; abscess; Order Comment: TECHNIQUE: Spiral CT through the abdomen and pelvis with IV contrast formatted in 3 planes. 100 cc of Omnipaque 300 was administered intravenously. This study was performed without oral contrast. Weight-based protocol using automatic tube modulation was used to optimize exposure parameters. CTDIvol Body: 20.20 mGy, DLP Body: 1416 mGy*cm. COMPARISON: Prior CT of the abdomen and pelvis dated May 16, 2022. FINDINGS: Time Clock Repairer View Findings, Lines and Tubes: None. Visualized Chest: Mild bibasilar atelectasis. No pleural or pericardial effusion. Diaphragm: Normal. Liver: Normal. Gallbladder: No CT evidence of gallbladder pathology. Bile ducts: No biliary ductal dilation. Spleen: Normal. Pancreas: Normal. Adrenal glands: Normal. Kidneys and ureters: No hydronephrosis, stones, or suspicious masses. Bladder: Normal. Reproductive organs: Unremarkable. Stomach, small bowel, and large bowel: Normal. Appendix: Normal. Peritoneum and retroperitoneum: No ascites or pneumoperitoneum. No omental or mesenteric lesions. Lymph nodes: Mildly increased number of iliac chain lymph nodes without pathologic enlargement, likely reactive. Similar mild prominence of inguinal and right external iliac lymph nodes, also most likely reactive. Blood vessels: Normal. No aneurysm. No evidence of venous thrombosis. Abdominal and pelvic wall: Similar diffuse heterogeneous skin thickening of the superficial skin ofthe buttocks bilaterally with a small superficial drain noted in place on the right. There are few more focal ovoid regions of low attenuation suggesting developing fluid collections, for example measuring up to 2.0 x 1.4 cm in the left posterolateral buttock (series 201 image 149). Inferior most as pects of these changes are not included within the [id number]-pl-[id number]. The overall degree of skin thickening may be slightly worsened from prior study, for example measuring up to 2 cm inferiorly on the left (series 2 image 157), previously 1.4 cm, also this may be due to slight differences in patient positioning. Bones: Severe degenerative changes of the left hip with a transcervical screw noted in place. Moderate degenerative changes of the right hip. IMPRESSION: Similar to slightly worsened extensive soft tissue thickening of the superficial soft tissues of both gluteal regions, with scattered areas of more focal low attenuation that may represent developingfluid collections. No clear drainable fluid collection at this time. WSN: [id number] Ordering Physician: Meena Potts Dictated By: Alton Le MD Dictated Date/Time: 05/20/22 5:03 pm Reviewed By: Alton Le MD Signed By: Alton Le MD Signed Date/Time: 05/20/22 5:03 pm Transcribed By: ZEHRA Transcribed Date/Time: 05/20/22 4:47 pm Patient Care team information Care Team Personnel Name: Bettye Carney Position: [facility] RN Member Role: Primary Care Nurse Name: Derek Tomas MD Position: [facility] Resident Member Role: PCP Address: Address: [address] [place] [address]- Name: Ally Boyd RN Position: S RN Member Role: Primary Care Nurse Name: Areli Whitaker RN Position: [facility] ED RN W/OE and Tasks Member Role: Primary Care Nurse Name: Axel Savage RN Position: S RN Member Role: Primary Care Nurse Name: Filemon King RN Position: S RN Member Role: Primary Care Nurse Name: Glenys Fox RN Position: S RN Member Role: Primary Care Nurse Name: Corie Farias DO Position: S Resident Member Role: ED Resident Address: Address: [address] [place] [address] Name: Aubrie Yancey RN Position: [facility] ED RN W/OE and Tasks Member Role: Patient Care Provider Name: Justin PAGAN, Glenys Garrett Position: [facility] ED Medicine MD Member Role: Admitting Physician Address: Address: [address] [place] [id number] Name: Sonido Foster Position: [facility] ED TA [facility] Member Role: Patient Care Provider Care Team Related Persons Name: JUHI BEVERLY Address: home [address] [place] [id number] Name: AISLINN DE LA PAZ Address: [address] [place] [address]
--- OUTSIDE RECORDS SUMMARY | 2023-02-03 22:28 | XMS_ITS | Continuity of Care Document ---
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 Phone Judie Mills DO Primary Care Physician [place] [facility]13[place] 05/13/[address] [address] Attending Physician: Sangeetha Latif Admitting Physician: [...] EDT, Route to Pharmacy Electronically, [facility]/pharmacy #[id number], Partial fill upon [...] EDT, Route to Pharmacy Electronically, [id number], 187.6, cm, 10/19/20 9:25:00 EDT, Height, 101.4, kg, 08/27/20 1:59:00 EDT, Dry Weight Start Date: 11/22/20 Status: Ordered gabapentin 100 mg oral capsule 100 mg, 1, capsule, By Mouth, 2 times a day, # 60 capsule, Refills 11, Tot. Refills 11, Maintenance, 04/03/21 14:15:00 EST, Route to Pharmacy Electronically, [facility]/pharmacy #[id number], note dose change, 193, cm, 03/15/21 16:10:00 EDT, Height, 104.5, kg, 10/0... Start Date: 04/03/21 Stop Date: 03/29/22 Status: Ordered gabapentin 300 mg oral capsule 300 mg, 1, capsule, By Mouth, Daily at bedtime, # 30 capsule, Refills 3, Tot. Refills 3, Maintenance, 04/03/21 14:16:00 EST, Route to Pharmacy Electronically, [facility]/pharmacy #[id number], Note bedtime dose change, 193, cm, 03/15/21 16:10:00 EDT, Height, 104.5,... Start Date: 04/03/21 Stop Date: 08/01/21 Status: Ordered metoclopramide 10 mg oral tablet, disintegrating 1 tablet = 10 mg, By Mouth, Every 8 hours, PRN Nausea & Vomiting, # 28 tablet, 0 Refills, Maintenance, 02/24/21 17:09:00 EDT, DIS Tablet, [facility]/pharmacy #[id number], Partial fill upon [...] Maintenance, 03/13/21 13:24:00 EDT, ECCapsule, [facility]/pharmacy #[id number], Partial fill upon [...] EDT, Route to Pharmacy Electronically, [facility]/pharmacy #[id number], Partial fill upon [...] need: 99 months Number to fax to: [phone], 01/06/21 13:10:00 E... Start Date: 01/06/21 Status: [...] tablet, 11 Refills, Maintenance, 11/22/20 8:13:00 EDT, [id number], 187.6, cm, 10/19/20 9:25:00 EDT, Height, 101.4, [...]
--- OUTSIDE RECORDS SUMMARY | 2023-02-03 22:28 | XMS_ITS | Continuity of Care Document ---
Author Name Unknown Organization 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 Refills 11, Maintenance, 11/02/20 17:57:00 EDT, Route to Pharmacy Electronically, [facility]/pharmacy #[id number], Partial fill upon patient request if the [...] 11/25/20 15:58:00 EDT, Route to Pharmacy Electronically, [facility]/pharmacy #[id number], Partial fill upon patient request if the [...] Refills, Maintenance, 11/22/20 8:13:00 EDT, [facility], 187.6, cm, 10/19/20 9:25:00 EDT, Height, 101.4, [...]
--- OUTSIDE RECORDS SUMMARY | 2023-02-03 22:28 | XMS_ITS | Continuity of Care Document ---
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 Start Date: 01/21/22 Status: Ordered acitretin 10 mg oral capsule TAKE 1 CAPSULE EVERY OTHER DAY FOR NEXT 2 WEEKS THEN 1 CAPSULE DAILY Start Date: 05/17/22 Status: Ordered amLODIPine 5 mg oral tablet 1 tablet, By Mouth, Daily, # 30 tablet, 11 Refills, [id number], 193, cm, 10/26/21 9:21:00 EDT,Height, 97.2, kg, 10/26/21 9:21:00 EDT, Dry Weight Start Date: 11/15/21 Status: Ordered amLODIPine 5 mg oral tablet 5 mg, Tablet, By Mouth, 05/18/22 9:00:00 EST Start Date: 05/18/22 Stop Date: 05/18/22 Status: Completed baclofen 10 mg oral tablet 20 mg, Tablet, By Mouth, 05/18/22 9:00:00 EST Start Date: 05/18/22 Stop Date: 05/18/22 Status: Completed baclofen 20 mg oral tablet [...] 02/22/22 9:42:00 EDT, Route to Pharmacy Electronically, [id number], 193, cm, 02/07/22 10:31:00 EDT, Height, 97.2, kg, 10/26/21 9:21:00 EDT, Dry Weight Start Date: 02/22/22 Status: Ordered gabapentin 300 mg oral capsule 300 mg, Capsule, By Mouth, 05/18/22 9:00:00 EST Start Date: 05/18/22 Stop Date: 05/18/22 Status: Completed omeprazole 40 mg oral enteric coated capsule 1 capsule, By Mouth, Daily, # 30 capsule, 5 Refills, Maintenance, 02/22/22 9:43:00 EDT, [id number], 193, cm, 02/07/22 10:31:00 EDT, Height, 97.2, kg, 10/26/21 9:21:00 EDT, Dry Weight Start Date: 02/22/22 Status: Ordered oxyCODONE 5 mg oral tablet 5 mg, 1, tablet, By Mouth, Every 6 hours, PRN, Do not drive on narcotic medication., # 5 tablet, Refills 0, Tot. Refills 0, Acute 05/21/22 7:20:00 EST, Pain , Moderate, 05/18/22 7:19:00 EST, Route toPharmacy Electronically, [facility],... Start Date: 05/18/22 Stop Date: 05/21/22 Status: Ordered oxyCODONE 5 mg oral tablet 5 mg, Tablet, By Mouth, Every 3 hours, PRN for Pain , Moderate, Routine, 05/17/22 11:02:00 EST Start Date: 05/17/22 Stop Date: 05/18/22 Status: Discontinued PROzac 20 mg oral capsule 20 mg, 1, capsule, By Mouth, Daily, # 90 capsule, Refills 4, Tot. Refills 4, Maintenance, 03/15/21 22:43:00 EDT, Route to Pharmacy Electronically, [facility]/pharmacy #[id number], Partial fill upon patient request if the prescription is for a schedule II opioid . Start Date: 03/15/21 Status: Ordered Right ankle & foot orthosis Right ankle & foot orthosis, See Instructions, # 1 each, Refills 1, Tot. Refills 1, Maintenance, Please dispense 1 right ankle and foot othosis Dx: R29.898, R26.81, M25.373 Length of need: 99 months Number to fax to: [phone], 01/06/21 13:10:00 E... Start Date: 01/06/21 Status: [...] 05/24/22 7:19:00 EST, 05/18/22 7:19:00 EST, Tablet, [facility], Partial fill upon [...] patient request... Start Date: 12/13/21 Status: Ordered walker with platform attached walker [...] Insomnia Confirmed Active N CP Care Management, Diving Fisher Carmen Elizabeth [phone] Confirmed Active Therapeutic drug monitoring Confirmed Active Spasticity Confirmed Active Tobacco dependence Confirmed Active Results Orders for Microbiology Reports Name Date Wound Deep Culture w/ Gram Smear 05/17/22 Blood Culture 05/16/22 Blood Culture #2 05/16/22 Microbiology Reports TEST:Deep Wound Culture STATUS:Unauthenticated BODY SITE: SOURCE:ABSCES COLLECTED DATE/TIME:05/17/22 3:48 AM Deep Wound Culture SPECIMEN DESCRIPTION : ABSCESS BUTTOCK RT SPECIAL REQUESTS : NONE GRAM STAIN : 2+ POLYMORPHONUCLEAR LEUKOCYTES 1+ GRAM POSITIVE COCCI CULTURE : NO GROWTH TO DATE REPORT STATUS : PRELIMINARY REPORT TEST:Blood Culture, Second Order STATUS:Unauthenticated BODY SITE: SOURCE:Blood COLLECTED DATE/TIME:05/16/22 6:30 PM Blood Culture, Second Order SPECIMEN DESCRIPTION : BLOOD NO SITE SPECIAL REQUESTS : NONE CULTURE : NO GROWTH AFTER 48 HOURS REPORT STATUS : PRELIMINARY REPORT TEST:Blood Culture STATUS:Unauthenticated BODY SITE: SOURCE:Blood COLLECTED DATE/TIME:05/16/22 6:28 PM Blood Culture SPECIMEN DESCRIPTION : BLOOD NO SITE SPECIAL REQUESTS : NONE CULTURE : NO GROWTH AFTER 48 HOURS REPORT STATUS : PRELIMINARY REPORT Radiology Reports * Exam Date Time Procedure Performing Provider Status 05/16/22 10:[address] Abd/Pelvis W/ IV Contrast Only Mendez Wise; Auth (Verified) Notes: (CT Abd/Pelvis W/ IV Contrast Only) Reason For Exam: buttocks abscesses;Other: RESULT: CT Abd/Pelvis W/ IV Contrast Only CT Abd/Pelvis W/ IV Contrast Only Hx of Present Illness: Cysts to buttocks x years, leaking weeping, advised to come to ED for further eval. Denies fever, chills; Reason: Other:; buttocks abscesses; Clinical Question(s): Abscess; Order Comment: Patient unable to tolerate PO contrast. Please include down to patient's mid thigh. TECHNIQUE: Spiral CT through the abdomen and pelvis with IV contrast formatted in 3 planes. 100 cc of Omnipaque 300 was administered intravenously. This study was performed without oral contrast. Weight-based protocol using automatic tube modulation was used to optimize exposure parameters. CTDIvol Body: 20.50 mGy, DLP Body: 1138 mGy*cm. COMPARISON: 02/15/2021, CT pelvis 01/21/2022. FINDINGS: Calender Tender View Findings, Lines and Tubes: None. Visualized Chest: Mild bibasilar atelectasis. No pleural effusion. The heart is normal in size. No pericardial effusion. Diaphragm: Normal. Liver: Normal. Gallbladder: No CT evidence of gallbladder pathology. Bile ducts: No biliary ductal dilation. Spleen: Normal. Pancreas: Normal. Adrenal glands: Normal. Kidneys and ureters: No hydronephrosis, stones, or suspicious masses. Simple appearing renal cysts are noted, requiring no dedicated follow up. Bladder: Underdistended, but the moderate diffuse bladder wall thickening. Reproductive organs: Unremarkable. Stomach, small bowel, and large bowel: Unremarkable small and large bowel. Appendix: Normal. Peritoneum and retroperitoneum: No ascites or pneumoperitoneum. No omental or mesenteric lesions. Lymph nodes: Enlarged bilateral inguinal lymph nodes, the largest 2.2 x 2.2 cm on the right and 1.7x 1.2 cm on the left. Enlarged right external iliac 1.9 cm lymph node. These are largely unchanged since prior. Blood vessels: Normal. No aneurysm. No evidence of venous thrombosis. Abdominal and pelvic wall: Unchanged diffuse skin thickening of the bilateral gluteal region and subcutaneous fat stranding. Bones: No acute abnormality. IMPRESSION: 1. Unchanged diffuse skin thickening of the bilateral gluteal regions with subcutaneous fat stranding, correlate with visual inspection for suspected cellulitis. No discrete abscess or soft tissue gas. 2. Unchanged bilateral inguinal and right external iliac lymphadenopathy. This is slightly increased since the August 2020 study, most likely reactive. 3. Moderate urinary bladder wall thickening could represent acute cholecystitis. Correlate with urinalysis. I have personally reviewed the images and I agree with this report. WSN: [id number] Ordering Physician: Lyssa Salgado Dictated By: Quintin[Radiology] Dayanara PAGAN Dictated Date/Time: 05/16/22 11:32 p Reviewed By: Ronald Hogan MD Signed By: Ronald Hogan MD Signed Date/Time: 05/16/22 11:37 pm Transcribed By: ZEHRA Transcribed Date/Time: 05/16/22 11:01 pm Vital Signs Most recent to oldest [Reference Range]: 1 2 3 Height 193 cm (05/18/22 7:00 AM) 193 cm (05/18/22 4:39 AM) 193 cm (05/18/22 1:20 AM) Weight 98.9 kg (05/18/22 7:00 AM) 98.9 kg (05/18/22 4:38 AM) 100 kg (05/17/22 4:51 PM) Oxygen Saturation [94-100 %] 99 % (05/18/22 7:00 AM) 99 % (05/18/22 4:39 AM) 99 % (05/18/22 1:20 AM) Pulse Rate [55-90 bpm] 63 bpm (05/18/22 7:00 AM) 57 bpm (05/18/22 4:39 AM) 51 bpm *L* (05/18/22 1:20 AM) Body Mass Index [18.5-24.99 kg/m2] 26.85 kg/m2 *H* (05/17/22 4:51 PM) Blood Pressure [90-138/55-84 mm Hg] 116/61mm Hg (05/18/22 8:03 AM) 116/61mm Hg (05/18/22 7:00 AM) 121/67mm Hg (05/18/22 4:39 AM) Respiratory Rate [16-30 br/min] 18 br/min (05/18/22 11:10 AM) 18 br/min (05/18/22 8:04 AM) 18 br/min (05/18/22 8:04 AM) Temperature [96.8-100.4 DegF] 98.6 DegF (05/18/22 7:00 AM) 99.1 DegF (05/18/22 4:39 AM) 98.8 DegF (05/18/22 1:20 AM) Mode of Delivery (Oxygen) Room air (05/18/22 7:00 AM) Room air (05/18/22 4:39 AM) Room air (05/18/22 1:20 AM) Blood pressure sites Arm, left (05/18/22 7:00 AM) Arm, left (05/18/22 4:39 AM) Arm, left (05/18/22 1:20 AM) Temperature Route Oral (05/18/22 7:00 AM) Oral (05/18/22 4:39 AM) Oral (05/18/22 1:20 AM) Dry Weight 100 kg (05/17/22 4:51 PM) 98.2 kg (05/16/22 5:58 PM) Weight Obtained Via Bed scale (05/18/22 4:38 AM) Patient/family stated (05/17/22 4:51 PM) Standing scale (05/16/22 5:58 PM) Dry Weight Obtained Via Standing scale (05/16/22 5:58 PM) Social History Social History Type Response Smoking Status 5-9 cigarettes (betw een 1/4 to 1/2 pack)/day in last 30 days entered on: 05/16/22 Sex Hospital Progress note * Frantz Swift RN: PERFORM, SIGN, VERIFY Event Display: Progress Note Hospital Authored Date: Patient: DAVID MCQUEEN Age: 36 years Sex: Male : 1985 Associated Diagnoses: None Author: Frantz Swift RN Findings Problem Related to Alteration in Comfort : Alteration in Comfort/new 05/18/2022 7:22 EST Alteration in Comfort Related to Other: abcess Goals & Outcomes: Comfort Pt will report [...] accordingly Goals/Interventions, Comfort Yes Comfort, Problem Start 05/17/2022 18:21 Reviewed plan with, Comfort Patient Patient Progression, Comfort Pt progressing according to plan Comfort, Problem Ongoing Yes . Narrative/Incidental Pt A&O x4. Reports 8 out of 10 pain to buttocks, medicated appropriately. Lung sounds CTA in all lobes, denies SOB or cough or chest pain. GI WNL. Voiding clear yellow urine. Ambulates with standby assist and cane. Showered this morning and DSDs to buttocks replaced. Jose drain x2 to right buttocks draining serosang fluid. left buttock wounds also draining serosang fluid. Sitz bath given to patient and education provided to patient and mother. Cleared for discharge by MD. Pt understood all discharge teaching and all questions were answered.. * Gleyns Fox RN: PERFORM, SIGN, VERIFY Event Display: Progress Note Hospital Authored Date: Patient: DAVID MCQUEEN Age: 36 years Sex: Male : 1985 Associated Diagnoses: None Author: Glenys Fox RN Findings Problem Related to Alteration in Comfort : Alteration in Comfort/new 05/17/2022 21:00 EST Alteration in Comfort Related to Other: abcess Goals & Outcomes: Comfort Pt will report [...] BH Goals/Interventions, Comfort Yes Comfort, Problem Start 05/17/2022 18:21 Reviewed plan with, Comfort Patient Patient Progression, Comfort Pt progressing according to plan Comfort, Problem Ongoing Yes . Evaluation Pt buttock dressing intact with some staining. Pt c/o 9/10 pain. Medicated with tylenol and oxycodone with good affect. Pt educated on incentive spirometer. Compression boots on. Pt resting comfortably. No acute issues at this time.. * Frantz Swift RN: PERFORM, SIGN, VERIFY Event Display: Progress Note Hospital Authored Date: Patient: DAVID MCQUEEN Age: 36 years Sex: Male : 1985 Associated Diagnoses: None Author: Frantz Swift RN Findings Problem Related to Alteration in Comfort : Alteration in Comfort/new 05/17/2022 18:21 EST Alteration in Comfort Related to Disease [...] accordingly Goals/Interventions, Comfort Yes Comfort, Problem Start 05/17/2022 18:21 Reviewed plan with, Comfort Patient Patient Progression, Comfort Plan Initiation Comfort, Problem Ongoing Yes . Narrative/Incidental Pt A&O x4. Arrived to unit from ED this afternoon, oriented to room and use of call mariee. Reports 8 out of 10 pain to buttocks, medicated appropriately. Lung sounds CTA in all lobes, denies SOB or cough or chest pain. No edema, +pp and dorsi/plantar flexion bilaterally. RLE weakness noted, reports decreased sensation but is able to move RLE. RUE no sensation or movement. Expressive aphasia noted. GI WNL. Last BM 05/16. Voids clear yellow urine. Wounds to buttocks with two Jose drains, photo documented in chart, DSDs reapplied. Reports ambulates with a cane at baseline. Has not yet ambulated while he's been here. Bed locked in lowest position, call mariee within reach using appropriately.. Note * Frantz Swift RN: PERFORM Event Display: Discharge/Transfer Note Hospital Authored Date: [id number] Nursing Discharge Note Entered On: 05/18/2022 11:25 EST Performed On: 05/18/2022 11:24 EST by Frantz Swift RN Nursing Discharge Note 2 Discharge Time : 05/18/2022 11:24 EST Discharge Level of Care at Discharge : Home/Senior Care/Foster Care Patient Left Unit Via : Wheelchair Patient Accompanied Off Unit with : Responsible adult DC Instructions Provided & Signed by Pt : Yes Patient Understands D/C Instructions : Yes Patient Instructions Discharge Signed : Yes Did Pt have Specialty Bed or Wound Vac : No Frantz Swift RN - 05/18/2022 11:24 EST * Alexandra Metcalf MD: PERFORM, MODIFY, MODIFY, MODIFY, MODIFY, MODIFY, MODIFY Event Display: Discharge/Transfer Note Hospital Authored Date: [id number] Patient: ??DAVID MCQUEEN ? Age:??36 Years?Sex:??Male?:??1985?? 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 ??Patient stated that he has been dealing with??the symptoms for months. ??He has been seen multiple times in the general surgery office and undergone multiple courses of oral antibiotic treatment (including cephalexin, bactrim and doxycycline). ??He stated that over the past week??he has??gotten??significant pain as well as tenderness in??the bilateralgluteus region.?? He endorsed ongoing drainage from these wounds and states that they are purulent in nature.?He denied any difficulty with stool and denied any drainage of stool from wounds. He denied any fevers, chills, nausea or vomiting. On arrival to the ED, he was noted to be afebrile and hemodynamically stable.?? Labs did not reveal any leukocytosis and were??otherwise unremarkable.?? UA??was negative.?? He underwent a CT of the abdomen and pelvis which showed unchanged diffuse skin thickening of the bilateral gluteal regions with subcutaneous fat stranding but no discrete abscess or soft tissue gas.?? There??was unchanged bilateral inguinal and right external iliac lymphadenopathy slightly increased from prior study.?? There??was also moderate urinary bladder wall thickening pre sent on imaging. ??Due to complex buttock wound a general surgery consultation was placed for help with evaluation and management. On exam there??was significant hidradenitis suppurativa changes of the bilateral buttocks.?? Right buttock was significantly larger than the left.??There were multiple draining sinuses draining both??fibrinous and purulent fluid more obvious in the lateral and inferior glute. Areas of opening were probed and there was an abscess pocket noted in the right inferior and right lateral buttock.??A incision and drainage of these collections was performed and given that the right lateral pocket was large, measuring about 5x4cm,a jose drain was left??to allow for drainage. Other pockets were packed with gauze and dry sterile dressing was applied and secured with mesh underwear. The patient was started on oral Bactrim and admitted for wound check and observation. The patient has progressed well during his hospitalization. His pain is improved and he has remainedafebrile and hemodynamically stable. He has been voiding appropriately, tolerating a diet, and his pain is well controlled. He was cleared for discharge home on 05/18. He will be sent with a prescription to complete his 7-day course of PO Bactrim and a few tabs of Oxycodone for pain. He has been??scheduled for an appointment with the??outpatient Wound Care clinic on 07/17 at 9am.??He has a follow-up appointment with the General Surgery office on??06/04 at 10am for jose drain removal. He should take sitz baths x2 daily and home VNA has been set up for dressing changes. Objective/Physical Exam on Day of Discharge Vitals & Measurements T:??99.1?F ?? DC:??57?? RR:??18?? BP:??121/67?? SpO2:??99%?? HT:??193??cm?? WT:??98.9??kg?? BMI:??26.85?? GENERAL: No acute distress. Non-toxic. HEAD: Normocephalic. Atraumatic.?? EYES: Extra-ocular movements intact. ENT: Patent nares and oropharynx.?? CARDIAC: Regular rate. RESPIRATORY: Non-labored breathing. GASTROINTESTINAL: Soft. Non-distended. Non-tender. BUTTOCKS: Chronic appearing scarring??and patchy??dark discoloration is noted on both buttocks, R > L. ??Significant tenderness and induration??noted??in??both buttocks, right significantly worse than the left.??Left buttock is now s/p I&D with jose drain placement. Additional sites of I&D noted with gauze packing in place. Future Appointments Saturday 10:00 AM EST ?? With: Delon Rincon Where: [facility] General Surgery [address] [place] [address] Drive [address] [place] [address]- Patient Discharge Condition Good, improved. Discharge Disposition Home with VNA services for wound care. ? Prescription Given this visit: Prescriptions Oxycodone (oxyCODONE 5 mg oral tablet) 1 tablet = 5 mg, By Mouth, Every 6 hours, # 5 tablet, 0 Refills, Do not drive on narcotic medication., [facility] [address] [address] [phone] Next Dose:? Sulfamethoxazole/Trimethoprim (sulfamethoxazole-trimethoprim 800 mg-160 mg oral tablet) 1 tablet, By Mouth, 2 times a day, # 12 tablet, 0 Refills, [facility] [address] [place] [phone] Next Dose:? Patient Instructions Given: Special Instructions ?? If you develop fever, chills, increased pain, nausea, vomiting, bleeding, or increased redness or pus around the wound please call the surgery office. Please take medications as prescribed and do notdrive while on narcotic medications. ?? Continue to take your oral Bactrim (1 pill twice per day) to complete the 7-day course. ?? Follow-up appointments: General Surgery Office: June 04 at 10am Wound Care Clinic: July 17 at 9am ? Education Given: Hidradenitis Suppurativa, Incision and Drainage?? Understanding Hidradenitis Suppurativa? Patient Follow-up: Added Follow Up ?Time Frame ?Comments [facility] W[facility] Care and Hyper[facility] Treatment?You have a new- patient appointment booked for July 17, 2022 at 9am. ?? Home Health Face to Face *Denotes mandatory burton ?? *I certify that this patient is under my care and that I or an allowed non- physician working with me had a face to face encounter with the patient on this date:??05/18/2022 07:43 ?? *The encounter with the patient was in whole, or in part, for the following medical condition, which is the primary diagnosis(es) for home health care:??Buttock pain (M79.18) Hidradenitis suppurativa (L73.2) Spastic hemiparesis affecting dominant side (G81.10) ? *Select the indications for the discipline/s [...] (select all that apply): [_] None [_] ADL Management [_] Fall prevention training [_] Energy conservation [_] Cognitive training Other _ Physical Therapy (select all that apply): [_] None [_] Functional mobility training [_] Home exercise program to strengthen [_] Increase ROM?? [_] Falls prevention training [_] Home maintenance program for chronic disease Other _ Speech Therapy (select all that apply): [_] None [_] Swallow evaluation and training [_] Speech and language training [_] Cognitive training to process, organize, and/or recall information Other _ ? Wound care should include packing changes of the incision and drainage sites using a corner of gauze dressing and applying a clean, dry dressing over the area once daily. ?? *Homebound due to (select all that apply): [_] Inability to leave home without assistance/supervision [_] Inability to ambulate without assistance [_] Pain [_] Decreased strength and endurance [_] Unsteady gait [_] Severe SOB and fatigue [_] Impaired transfers [_] Inability to negotiate stairs [_] Limited weight bearing [_] Mental status change? *Physician Signature:??Alexandra Metcalf MD ?? *By signing this, I certify that I have personally evaluated the patient and agree with the findings and recommendations as documented above. ?? Inpatient Medications Medications (13) Active SCHEDULED: (11) Acetaminophen 325 mg Tablet (Acetaminophen Tablet) ??975 mg, By Mouth, Every 6 hours Amlodipine 5 mg Tablet (amLODIPine 5 mg oral tablet) ??5 mg, By Mouth, Daily Apixaban 5 mg Tablet (Eliquis) ??5 mg, By Mouth, 2 times a day Baclofen 10 mg Tablet (baclofen 10 mg oral tablet) ??20 mg, By Mouth, 4 times a day Fluoxetine 20 mg Capsule (PROzac 20 mg oral capsule) ??20 mg, By Mouth, Daily Folic Acid 1 mg Tablet (folic acid 1 mg oral tablet) ??1 mg, By Mouth, Daily Gabapentin 300 mg Capsule (gabapentin 300 mg oral capsule) ??300 mg, By Mouth, 3 times a day Influenza Quad (6mo - 64 yr) Fluzone 0.5mL (Influenza, Quadrivalent Vaccine (Fluzone Quad)) ??0.5 mL, Intramuscular, Once Pantoprazole 40 mg EC Tablet (Protonix 40 mg oral delayed release tablet) ??40 mg, By Mouth, Daily Sulfamethoxazole 800 mg/Trimethoprim 160 mg Tablet (Bactrim DS Tablet) ??1 tablet, By Mouth, 2 times a day Tizanidine 4 mg Tablet (tiZANidine 4 mg oral tablet) ??2 mg, By Mouth, 2 times a day CONTINUOUS: (0) PRN: (2) Ondansetron 2mg/mL Inj (2mL Vial) (Ondansetron Inj) ??4 mg, IV Push, Every 6 hours OxyCODONE 5 mg IR Tablet (oxyCODONE 5 mg oral tablet) ??5 mg, By Mouth, Every 3 hours Discharge Medications Acetaminophen (acetaminophen 325 mg oral capsule)?2?capsule?650?Milligram?By Mouth?Every 6 hours?as needed?Pain , Moderate Acitretin (acitretin 10 mg oral capsule)?TAKE 1 [...] M25.373Length of need: 99 monthsNumber to fax to:[phone] Ferrous Sulfate (ferrous sulfate 325 mg oral tablet)?1?tab(s)?325?Milligram?By Mouth?Daily?as needed?as needed Fluoxetine (PROzac 20 mg oral capsule)?20?Milligram?1?capsule?By Mouth?Daily Gabapentin (gabapentin 300 mg oral capsule)?1?capsule?By Mouth?3 times a day Omeprazole (omeprazole 40 mg oral enteric coated capsule)?1?capsule?By Mouth?Daily onabotulinumtoxinA (Botox 100 units injection)?See Instructions?400 units for MD to inject. ? Dx: Spasticity Oxycodone (oxyCODONE 5 mg oral tablet)?5?Milligram?1?tablet?By Mouth?Every 6 hours?as needed?Do not drive on narcotic medication.?Pain , Moderate Scopolamine (scopolamine 1 mg/72 hr transdermal film, extended release)?1?Film?Topically?Every 72 hours?Apply to right mastoid bone secukinumab (Cosentyx 150 mg/mL subcutaneous solution)?300?Milligram?Subcutaneous Injection?Every week Sulfamethoxazole/Trimethoprim (sulfamethoxazole-trimethoprim 800 mg-160 mg oral tablet)?1?tab(s)?By Mouth?2 times a day?for 6?Days Tizanidine (tiZANidine 2 mg oral tablet)?See Instructions?1 tablet by mouth twice a day Labs Last 24 Hours No qualifying data available. Patient Education Titles Hidradenitis Suppurativa, Incision and Drainage?? Understanding Hidradenitis Suppurativa?? Follow-Up Appointments Added Follow Up ?Time Frame ?Comments [facility] Wound Care and Hyperbaric Treatment?You have a new- patient appointment booked for July 17, 2022 at 9am. * Todd PAGAN, Tam: PERFORM Event Display: Discharge/Transfer Note Hospital Authored Date: Surgery Attending: Patient seen, examined, discussed with Drs. Reyna and Tea.?I concur with preceding resident note findings, assessment, and plan of care. Tam Brooks MD * Sourav BUSTAMANTE, Jennifer: PERFORM Event Display: Patient Education/Instruction Authored Date: Inpatient Adult Discharge Instructions [address] [id number] Name: DAVID MCQUEEN : 1985 Visit: 05/16/2022 14:58:00 Current Date: 05/18/2022 10:27 Account: [id number] Inpatient Adult Discharge Instructions We would like [...] and their families. Surveys are administered by [employer] ?? If further treatment with your primary care physician or another doctor is recommended, it is important for you to keep the appointment. Call your primary care physician or return to the Emergency Department immediately if your condition worsens, fails to improve, or new symptoms develop. If you need to find a doctor, you can call [facility] for a referral at [phone] or toll free at [phone] or log in to [email or web address].. ?? You can view and manage your care through the patient portal or by using a health care boyd of your choosing. [facility] is a website that allows you to securely view your medical information including your hospital discharge summary, office visit summaries, medications and follow-up visits. You can also request appointments, renew medications, and request access to your medical information using a health care boyd of your choosing, or just ask a question. You can enroll at [email or web address] or register during your next office visit. You have been discharged from [facility], Patient Care Unit: SW6. If you have any questions regarding these instructions after you leave, please call us and we will be happy to assist you. [facility] Your Care Team Attending Physician [place] Luna MD Discharging Providers Alexandra Metcalf MD Reason for Admission HIDRADENITIS SUPPURATIVA Your Diagnosis Buttock pain Hidradenitis suppurativa Spastic hemiparesis affecting dominant side Tests Performed Below is a partial list of the tests performed during your hospitalization. You may have had other tests and procedures not included in this list. Please discuss all test results with your provider. CBC w/ Differential Comprehensive Metabolic Panel COVID-19 (2019 Novel Coronavirus) PCR COVID-19, RSV, and Flu A/B, Rapid PCR Lactate Level Urinalysis w/hold for Urine Culture CT Abd/Pelvis W/ IV Contrast Only Primary Care Provider Derek Tomas MD Advance Directive Health Care Proxy on File Yes - Health Care Proxy Caregiver Relationship: Father Name of Caregiver: david Patient has a Designated Caregiver: Yes Discharge Vitals Temperature: 98.6 DegF Height: 193 cm Pulse Rate: 63 bpm Weight: 98.9 kg Respiratory Rate: 18 br/min Body Mass Index:??26.85 kg/m2??High Respiratory Rate: 18 br/min Body surface area: 2.32 Systolic Blood Pressure: 116 mm Hg ?? Diastolic Blood Pressure: 61 mm Hg ?? Oxygen Saturation: 99 % ?? Studies Pending All tests and labs ordered during this hospital stay have been completed unless listed below. Please discuss all pending results with your provider listed above in these instructions. ?? Blood Culture Blood Culture #2 Wound Deep Culture w/ Gram Smear What to do next Instructions From Your Doctor Special Instructions ?? If you develop fever, chills, increased pain, nausea, vomiting, bleeding, or increased redness or pus around the wound please call the surgery office. Please take medications as prescribed and do notdrive while on narcotic medications. ?? Continue to take your oral Bactrim (1 pill twice per day) to complete the 7-day course. ?? Follow-up appointments: General Surgery Office: June 04 at 10am Wound Care Clinic: July 17 at 9am ?? Discharge Orders Scheduled Follow-Up Appointments Saturday 10:00 AM EST ?? With: Delon Rincon Where: [facility] General Surgery [address] [place] [address] Drive [address] [place] [address]- You Need to Schedule the Following Appointments Follow Up with??[facility] When?? Why: You have a new-patient appointment booked for July 17, 2022 at 9am. Where: [address] [place] [address]- Discharge Medications DAVID MCQUEEN :1985 Visit Date:05/16/2022 Medications: Please continue your medications until treatment is completed or stopped by your provider. Medications not listed below should be discontinued. Discuss any questions related to medications with your provider. What How Much When Why Instructions Next Dose New Oxycodone (oxyCODONE 5 mg oral tablet) 1 tab(s) Oral Every 6 hours as needed for Pain , Moderate Do not drive on narcotic medication. ?? Pickup at [place] [address] 05/18/22 as needed New Sulfamethoxazole/ Trimethoprim (sulfamethoxazole-trimethoprim 800 mg-160 mg oral tablet) 1 tab(s) Oral Twice a day Duration: 6 Days Pickup at [place] [address] 05/18/22 8pm Changed Acetaminophen (acetaminophen 325 mg oral capsule) 2 capsule Oral Every 6 hours as needed for Pain , Moderate 05/18/22 5pm Unchanged Acitretin (acitretin 10 mg oral capsule) TAKE 1 CAPSULE EVERY OTHER DAY FOR NEXT 2 WEEKS THEN 1 CAPSULE DAILY ?? as prescribed Unchanged Amlodipine (amLODIPine 5 mg oral tablet) 1 tab(s) Oral Daily 05/19/22 8am Unchanged apixaban (Eliquis 5 mg oral tablet) 1 tab(s) Oral Twice a day 05/18/22 at 8pm Unchanged Baclofen (baclofen 20 mg oral tablet) 1 tab(s) Oral 4 times a day 05/18/22 at 1pm Unchanged Durable Medical Equipment (Right ankle & foot orthosis) See instructions Weakness of right leg Gait instability Instability of ankle Please dispense 1 right ankle and foot othosis Dx: R29.898, R26.81, M25.373 Length of need: 99 months Number to fax to: [phone] ?? Unchanged Durable Medical Equipment (walker with platform attached) See instructions History of stroke Right sided weakness Spasticity due to old stroke Please dispense 1 (one) walker with attached platform ?? Ht: 187.6cm Wt: 101.4kg Dx: History of stroke - Z86.73, Right-sided weakness - R53.1,Spasticity due to old stroke - I69.398 ?? Length of need: 99months ?? Unchanged Ferrous Sulfate (ferrous sulfate 325 mg oral tablet) 1 tab(s) Oral Daily as needed for as needed as directed Unchanged Fluoxetine (PROzac 20 mg oral capsule) 1 capsule Oral Daily Spastic hemiparesis affecting dominant side 05/19/22 8pm Unchanged Gabapentin (gabapentin 300 mg oral capsule) 1 capsule Oral 3 times a day 05/18/22 3pm Unchanged Omeprazole (omeprazole 40 mg oral enteric coated capsule) 1 capsule Oral Daily as directed Unchanged onabotulinumtoxinA (Botox 100 units injection) See instructions 400 units for MD to inject. ? Dx: Spasticity ?? Unchanged Scopolamine (scopolamine 1 mg/ 72 hr transdermal film, extended release) 1 Film Topically Every 72 hours Stroke Drooling Apply to right mastoid bone ?? as directed Unchanged secukinumab (Cosentyx 150 mg/ mL subcutaneous solution) 300 Milligram Subcutaneous Injection Every week as directed Unchanged Tizanidine (tiZANidine 2 mg oral tablet) See instructions 1 tablet by mouth twice a day ?? 05/18/22 at 8pm Pharmacy Information [facility]: [address], [place] [id number] [phone] Test Results Below is a partial list of the most recent Laboratory test results done prior to this discharge. You may have had other tests and procedures not included in this list. Please discuss all test resultswith your provider. CBC w/ Differential (05/16/2022) ???WBC - 10.9 k/mm3???RBC - 3.69 m/mm3???Hgb - 10.0 Gm/dL???Hct - 32.6 %???MCV - 88.3 femtoliters???MCH - 27.1 pg???MCHC - 30.7 g/dL???Platelet Count - 698 k/mm3???RDW-SD - 54.9 femtoliters???MPV - 8.7 femtoliters???Nucleated RBC (Automated) - 0.0 #/100 WBC'S???Abs. NRBC - 0.0 k/mm3???Abs. Neut - 8.1 k/mm3???Abs. Lymph - 2.1 k/mm3???Abs. [place] - 0.6 k/mm3???Abs. Eo - 0.1 k/mm3???Abs. Baso - 0.0 k/mm3???Neut % - 74.6 %???Lymph % - 18.9 %???[place] % - 5.4 %???Eos % - 0.5 %???Baso % - 0.2 %???Imm Gran - 0.4 %???Abs. Imm Gran - 0.0 k/mm3 Comprehensive Metabolic Panel (05/16/2022) ???Sodium - 141 mmol/L???Potassium - 3.8 mmol/L???Chloride - 103 mmol/L???Bicarbonate Level - 27 mmol/L???Anion Gap - 11???Glucose Level - 96 mg/dL???BUN - 15 mg/dL???Creatinine-Blood - 0.9 mg/dL???Estimated GFR Creatinine - 116 ML/MIN/1.73 M2???Calcium - 9.4 mg/dL???Protein, Total - 8.2 Gm/dL???Alb umin - 4.2 Gm/dL???AG Ratio - 1.1???Alkaline Phosphatase - 147 units/L???AST (SGOT) - 10 units/L???ALT (SGPT) - 8 units/L???Bilirubin, Total - 0.2 mg/dL COVID-19 (2019 Novel Coronavirus) PCR (05/17/2022) ???COVID-19 PCR Specimen Source - NASAL???COVID-19 PCR Result - NEGATIVE COVID-19, RSV, and Flu A/B, Rapid PCR (05/16/2022) ???Influenza A PCR - NEGATIVE???Influenza B PCR - NEGATIVE???RSV PCR - NEGATIVE???COVID-19 PCR Specimen Source - NASAL???COVID-19 PCR Result - NEGATIVE Lactate Level (05/16/2022) ???Lactate - 1.3 mmol/L Urinalysis w/hold for Urine Culture (05/16/2022) ???Appear/Color, Urine - YELLOW???Specific [place], Urine - 1.030???pH, Urine - 6.0???Albumin, Urine - 1+???Glucose, Urine - NEGATIVE???Ketones, Urine - NEGATIVE???Bilirubin, Urine - NEGATIVE???Hemoglobin, Urine - NEGATIVE???Nitrite, Urine - NEGATIVE???Leukocyte, Urine - NEGATIVE???Urobilinogen - NORMAL???WBC's, Urine - 2 /HPF???RBC's, Urine - 2 /HPF???Bacteria - SLIGHT???Squamous Epith - 1 /HPF???Mucus - HEAVY???Hold Urine Culture - Testing available 48 hours from time of collection. Immunizations This Visit Given Vaccine Dateinfluenza virus vaccine, inactivated 05/18/2022 Allergies (NKA means No Known Allergies) NKA Problems Active Problems??(8) [facility] Care Management, Diving Fisher Carmen Elizabeth [phone]?? Chronic ischemic left ICA stroke?? Hidradenitis suppurativa?? Insomnia?? Spasticity?? Therapeutic drug monitoring?? Tobacco dependence?? Wound of buttock?? Education Materials Below is the list of Educational Leaflet Providered with your Discharge Instructions. Hidradenitis Suppurativa, Incision and Drainage?? Understanding Hidradenitis Suppurativa?? Valuables and Belongings I fully understand and agree that [facility] accepts no responsibility for all my personal [...] to send valuables and belongings home. ?? Date for Pt to Sign Valuables/Belongings: 05/17/22 16:53:00 ?? Other Discharge Information ? Pulmonary Rehab Status?? Pulmonary Rehab Discharge Status?? Respiratory Rate: 18 br/min Respiratory Rate: 18 br/min ? Common Emergency [...] are strongly encouraged to quit. Please call [facility] at [phone] or [phone] ([phone]) or log in to [email or web address] for referrals to smoking cessation programs. ?? The National Suicide Prevention Hotline is available 03/12 if you or someone you know needs to find a reason to keep living. By calling 5-455-532-[employer] (7484) you'll be connected to a skilled, trained counselor at a crisis center in your area. INPATIENT DISCHARGE INSTRUCTIONS SIGNATURE PAGE DAVID MCQUEEN Location:[facility] Registration Date and Time:05/16/2022 14:58 EST Primary Care Physician: Genoveva PAGAN, [facility], I DAVID MCQUEEN, have received the above patient education materials/instructions and have verbalized understanding. If ambulance or transport services are being used I further acknowledge being given a choice of service. ?? If you need to contact me, please call me at this number: . Patient/Reamer Hand Name: Patient/Reamer Hand Signature: Relationship to Patient: Witness Name/Signature: Date: * Tea PAGAN, Alexandra: PERFORM Event Display: Patient Education Leaflets Authored Date: [id number] Hidradenitis Suppurativa, Incision and Drainage ?? [id number] Hidradenitis Suppurativa, Incision and Drainage Hidradenitis suppurativa [...] cools off. As an alternative, you can marketing assistant manager the shower and direct the warm spray [...] until they are gone. ??? You may use??skdq-gzz-vjdxgtq medicinefor pain relief and swelling, unless another [...] wound ?? Last Reviewed Date: 2021 ?? [employer]. All rights reserved. This information is not intended as a substitute for professional medical care. Always follow your healthcare professional's instructions. ?? * Alexandra Metcalf MD: PERFORM Event Display: Patient Education Leaflets Authored Date: [id number] Understanding Hidradenitis Suppurativa ?? [address] Understanding Hidradenitis Suppurativa Hidradenitis suppurativa is a long-term (chronic) skin disease. It causes painful bumps and sores (abscesses) to form around a hair follicle. Follicles are the tiny holes from which hair grows out ofyour skin. The disease occurs on parts of the body where skin rubs together. It most often appears in the armpits, the groin area, and under the breasts. It's more common in women. ??How to say it [id number]-[id number]-[id number] MOED-iv-kq-JUSTICE-vuh ?? What causes hidradenitis suppurativa? This skin disease happens when hair follicles become clogged with keratin. Keratin is the protein that makes up your hair and nails. The follicles then burst and become inflamed. Pressure or rubbing on the skin can clog the follicles. Or it can further irritate them. The disease tends to run in families. It???s also more likely to occur in people who are obese, have diabetes, or smoke. Hormones or the immune system may also play a part. ?? Symptoms of hidradenitis suppurativa This skin disease causes 1 or more painful red bumps on the skin. These bumps become inflamed and drain pus. They may also itch or burn. In severe cases, sinus tracts may form. These are narrow channels that run under the skin. Blood or a bad-smelling pus may ooze from these bumps or sinus tracts. Bands of scarring often occur. ?? Treatment for hidradenitis suppurativa Treatment for this skin disease is most successful when started early. But it may be hard to diagnose. It may be mistaken for other skin conditions. The painful bumps also often return. So, stopping new bumps and limiting scarring is important. Treatment choices include: ??? Warm compress. Putting a warm, wet washcloth on the affected skin may help. ??? Lifestyle changes. Your symptoms may get better if you lose weight or stop smoking, if needed. Also stay away from shaving or other irritants, such as deodorant or perfume. ??? Antibiotics. For mild cases, an antibiotic applied to the skin (topical) may help. You may need oral antibiotics if you have a severe case. They can help prevent further infection. ??? Other oral medicines. Siyu-lrp-bczbbbu pain medicines can ease pain and inflammation. You may need stronger medicines for a severe case. These medicines include corticosteroids or aretinoid. These may cause side effects. ??? Injected medicines. A steroid may be injected into the bump to ease pain. A newer biologic medicine is given by IV. It may be used in severe symptoms. ??? S urgery. Surgery can drain and remove the painful bumps. For severe cases, the healthcare provider may cut out the entire area of affected skin or destroy it with a laser. ?? Possible complications of hidradenitis suppurativa These include: ??? Arthritis ??? Depression ??? Lymphedema ??? Scarring of skin ??? Skin cancer ?? When to call your healthcare provider Call your healthcare provider right away if you have any of these: ??? Fever of 100.4??F (38??C) orhigher, or as directed by your healthcare provider ??? Redness, swelling, or fluid leaking from your rash that gets worse ??? Pain that gets worse ??? Symptoms that don???t get better, or get worse ??? New symptoms ?? Last Reviewed Date: 2021 ?? 9911-5650 [employer]. All rights reserved. This information is not intended as a substitute for professional medical care. Always follow your healthcare professional's instructions. ?? CT Abdomen and Pelvis W contrast IV * BHSP[facility]erscribe , CIS S: TRANSCRIRonald Das MD: VERIFY Quintin[Radiology] Dayanara PAGAN: SIGN Event Display: Result: Authored Date: [id number] CT Abd/Pelvis W/ IV Contrast Only Hx of Present Illness: Cysts to buttocks x years, leaking weeping, advised to come to ED for further eval. Denies fever, chills; Reason: Other:; buttocks abscesses; Clinical Question(s): Abscess; Order Comment: Patient unable to tolerate PO contrast. Please include down to patient's mid thigh. TECHNIQUE: Spiral CT through the abdomen and pelvis with IV contrast formatted in 3 planes. 100 cc of Omnipaque 300 was administered intravenously. This study was performed without oral contrast. Weight-based protocol using automatic tube modulation was used to optimize exposure parameters. CTDIvol Body: 20.50 mGy, DLP Body: 1138 mGy*cm. COMPARISON: 02/15/2021, CT pelvis 01/21/2022. FINDINGS: Calender Tender View Findings, Lines and Tubes: None. Visualized Chest: Mild bibasilar atelectasis. No pleural effusion. The heart is normal in size. No pericardial effusion. Diaphragm: Normal. Liver: Normal. Gallbladder: No CT evidence of gallbladder pathology. Bile ducts: No biliary ductal dilation. Spleen: Normal. Pancreas: Normal. Adrenal glands: Normal. Kidneys and ureters: No hydronephrosis, stones, or suspicious masses. Simple appearing renal cysts are noted, requiring no dedicated follow up. Bladder: Underdistended, but the moderate diffuse bladder wall thickening. Reproductive organs: Unremarkable. Stomach, small bowel, and large bowel: Unremarkable small and large bowel. Appendix: Normal. Peritoneum and retroperitoneum: No ascites or pneumoperitoneum. No omental or mesenteric lesions. Lymph nodes: Enlarged bilateral inguinal lymph nodes, the largest 2.2 x 2.2 cm on the right and 1.7x 1.2 cm on the left. Enlarged right external iliac 1.9 cm lymph node. These are largely unchanged since prior. Blood vessels: Normal. No aneurysm. No evidence of venous thrombosis. Abdominal and pelvic wall: Unchanged diffuse skin thickening of the bilateral gluteal region and subcutaneous fat stranding. Bones: No acute abnormality. IMPRESSION: 1. Unchanged diffuse skin thickening of the bilateral gluteal regions with subcutaneous fat stranding, correlate with visual inspection for suspected cellulitis. No discrete abscess or soft tissue gas. 2. Unchanged bilateral inguinal and right external iliac lymphadenopathy. This is slightly increased since the August 2020 study, most likely reactive. 3. Moderate urinary bladder wall thickening could represent acute cholecystitis. Correlate with urinalysis. I have personally reviewed the images and I agree with this report. WSN: [id number] Ordering Physician: Lyssa Salgado Dictated By: Quintin[Radiology] aDyanara PAGAN Dictated Date/Time: 05/16/22 11:32 p Reviewed By: Ronald Hogan MD Signed By: Ronald Hogan MD Signed Date/Time: 05/16/22 11:37 pm Transcribed By: ZEHRA Transcribed Date/Time: 05/16/22 11:01 pm Patient Care team information Care Team Personnel Name: Bettye Carney Position: [facility] RN Member Role: Primary Care Nurse Name: Derek Tomas MD Position: [facility] Resident Member Role: PCP Address: Address: [address] [place] [id number]- Name: Ally Boyd RN Position: [facility] RN Member Role: Primary Care Nurse Name: Areli Whitaker RN Position: [facility] ED RN W/OE and Tasks Member Role: Primary Care Nurse Name: Axel Savage RN Position: [facility] RN Member Role: Primary Care Nurse Name: Filemon King RN Position: [facility] RN Member Role: Primary Care Nurse Name: Glenys Fox RN Position: [facility] RN Member Role: Primary Care Nurse Name: Dewayne MATA Attending Position: [facility] ED Medicine Name: Salome Pollock RN Position: [facility] ED RN W/OE and Tasks Member Role: Patient Care Provider Name: Scotty Monteiro LPN Position: [facility] ED RN W/OE and Tasks Member Role: Patient Care Provider Name: Kodak Live Position: [facility] ED TA [facility] Member Role: Patient Care Provider Care Team Related Persons Name: JUHI BEVERLY Address: [place] [address] Name: AISLINN DE LA PAZ Address: home [address] [place] [address]
--- NOTE | 2023-02-03 23:27 | ED_ITS ---
HPI - Wound/Laceration General Chief Complaint: Wound/Laceration Stated Complaint: pat coming from home, bleeding from buttocks, per Time Seen by Provider: 02/03/23 22:39 Source: patient, family and old records reviewed Mode of arrival: ambulatory Limitations: other (poor historians) History of Present Illness HPI narrative: 37 yo male with PMH of stroke R sided hemiparesis anticoagulated on eliquis, hidradenitis suppuritiva with recurrent buttock infections and I+D currently undergoing treatment at [facility] with plan for debridement and wide excision per mom this month on the . He comes in tonight as they note more buttock wounds are draining more and he is having more pain. He has no fevers, nausea, vomiting. He is not on antibiotics or pain medications at home. They cannot tell me who is doing the procedure other than it is at [facility]. Onset (ago): day(s) (chronic but worse x 1 day) Location: other (buttocks) Place: home Patient tetanus UTD: Yes Context: other (chronic bilateral buttock wounds and pain due to HS) Associated symptoms: pain Treatments prior to arrival: bandage Related Data Previous Rx's Medication Instructions Recorded chlorhexidine gluconate 4 % See Rx Instructions .Route 10/06/20 topical liquid (Scrub .COMPLEX 2 doses #237 mL Chlorhexidine Gluconate) doxycycline monohydrate 100 mg 100 mg PO BID #20 caps 10/06/20 capsule ondansetron 4 mg disintegrating 4 mg PO Q8H PRN nausea and 01/03/21 tablet vomiting #20 tabs morphine 15 mg immediate release 15 mg PO Q6H PRN pain #20 tabs 02/04/23 tablet Allergies Allergy/AdvReac Type Severity Reaction Status Date / Time No Known Allergies Allergy Unverified 01/28/20 16:49 Review of Systems 2 Review of Systems: Constitutional : No Fever, No Chills ENT/Mouth : No sore throat, No Rhinorrhea Eyes: No Eye Pain, No Swelling, No Redness Cardiovascular : No Chest Pain, No SOB Respiratory : No Cough, No Sputum Gastrointestinal : No Nausea, No Vomiting, No Diarrhea, No abdominal Pain Genitourinary : No Dysuria, No Hematuria Musculoskeletal : No joint pain, No Myalgias, No Joint Swelling Skin : pos Skin Lesions, positive skin rash Neuro : No Weakness, No Numbness, No Headache Psych : No Anxiety, No Depression All other systems reviewed and are negative [facility]LY [facility], [facility] Past Medical History Attestation statement: The following information was validated with the patient. Source: old records reviewed and obtained from family Medical History (Updated 02/04/23 @ 02:32 by Luly Fields DO) Abscess and cellulitis of gluteal region CVA (cerebral vascular accident) Opiate abuse, continuous Social History Social History Alcohol intake: never Smoked in Last 30 Days: Yes Use of substances other than those prescribed or required for medical reasons: Yes Substance Use Type: Marijuana Substance Use Frequency: Occasionally Advance Directives: No Advance Directives Information Provided: No Physical Exam 2 Vital Signs: Vital Signs: Last Vital Signs Temp 98.3 F 02/04/23 00:35 Pulse 71 02/04/23 00:35 Resp 18 02/04/23 00:35 BP 117/63 02/04/23 00:35 Pulse Ox 97 02/04/23 00:35 O2 Del Method Room Air 02/04/23 00:35 BMI result Body Mass Index 24.3 Appearance: Alert. Oriented X3. No acute distress. Eyes: Pupils equal, round and reactive to light. ENT: Pharynx normal. Neck: Normal inspection. Neck supple. CVS: Normal heart rate and rhythm. Pulses normal. Respiratory: No respiratory distress. Breath sounds normal. Abdomen: Soft and nontender. Buttocks: bilateral buttocks dark hyperpigmented areas - draining sinuses and wounds on both buttocks, L buttock firm area felt 4 to 5cm mild erythema no overt cellulitis, scant bleeding noted on pads no overt brisk bleeding Skin: Skin warm and dry. Normal skin color. Normal skin turgor. Extremities: No lower extremity edema. Neuro: Oriented X 3. R sided hemiparesis, at baseline otherwise Course Course Course Narrative: at this time infection suspected IV zosyn ordered 1157pm Reevaluation(s) Reevaluation #1: [facility] transfer center called 135am able to talk to plastics resident 154am hemoglobin 9.9 6 months ago at this time no beds available aware of CT scan findings and collection would hold antibiotics at this time, aware of WBC count of 13.2 - follow up as outpatient given office a call in AM pre-op. Resident will call office in the AM. Reevaluation #2: pain improved with IV dilaudid x 2 Reevaluation #3: H/H stable, VS stable no downtrend and last H/H from 6 months ago will instruct to repeat in 24 hours with PCP Medications Administered Discontinued Medications Generic Name Dose Route Start Last Admin Trade Name Chris PRN Reason Stop Dose Admin Hydromorphone HCl 1 mg 02/03/23 22:55 02/03/23 23:37 Hydromorphone Hcl 1 Mg/Ml Syringe IVPUSH 02/03/23 22:56 1 mg ONCE ONE Administration Protocol Hydromorphone HCl 0.5 mg 02/04/23 00:29 02/04/23 00:36 Hydromorphone Hcl 0.5 Mg/0.5 Ml Syringe IVPUSH 02/04/23 00:30 0.5 mg ONCE ONE Administration Protocol Sodium Chloride 1,000 mls @ 999 mls/hr 02/03/23 23:00 02/04/23 00:34 Ns IVCONT 02/04/23 00:00 Infused .Q1H1M MOSES Infusion Piperacillin Sod/Tazobactam 50 mls @ 100 mls/hr 02/03/23 23:56 02/04/23 00:36 Sod 3.375 gm/ Sodium Chloride IV 02/04/23 00:25 100 mls/hr ONCE ONE Administration Iohexol 85 ml 02/04/23 00:37 02/04/23 00:37 Iohexol 350 Mg/Ml 100 Ml Infus..Btl IV 02/04/23 00:38 85 ml ONCE ONE Administration Ondansetron HCl 4 mg 02/03/23 22:55 02/03/23 23:36 Ondansetron Hcl 4 Mg/2 Ml Vial IVPUSH 02/03/23 22:56 4 mg ONCE ONE Administration Medical Decision Making Medical Decision Making MDM Narrative: 37 yo male with PMH of stroke R sided hemiparesis anticoagulated on eliquis, hidradenitis suppuritiva with recurrent buttock infections and I+D currently undergoing treatment at [facility] here with worsening pain and bleeding - at this time will need labs, IVF, IV pain medications and CT scan for any obvious collections - he has draining areas that are bloody and serosanguinous but no brisk bleeding (took eliquis prior to arrival) and pads have dime sized to half dollar amounts. He has not been here in 2 years will need records from [facility]. If any concerns for collections that need surgical involvement will possibly involve surgery at [facility] given his pending surgery in 4 days. Differential Diagnosis Differential Diagnoses: The differential diagnosis associated with the presentation includes abscess, HS, cellulitis, sinus, tract Admission/Observation Consideration of admission/observation: Escalation of care including admission/observation considered considered transfer but plastics at [facility] declined states chronic and feels he can be managed until surgery at home Consult Healthcare Provider Management of the patient was discussed with: Tool Hardener (transfer [facility] line, plastic surgery ) Lab Data MDM Lab Attestation statement: I reviewed the patient's lab results. H/H lower than baseline requesting records from [facility] 02/04/23 02:19 02/03/23 23:36 Labs: Lab Results 02/03/23 02/04/23 02/04/23 Range/Units 23:36 01:00 02:19 WBC 13.2 H 12.3 H (4.8-10.8) X10*3/uL RBC 3.42 L 3.39 L (4.60-5.80) X10*6/uL Hgb 8.1 L 8.1 L (14.0-18.0) g/dl Hct 26.8 L 26.7 L (42.0-52.0) % MCV 78.4 L 78.8 L (80.0-98.0) fL MCH 23.7 L 23.9 L (27.0-33.0) pg MCHC 30.2 L 30.3 L (31.0-36.0) g/dl RDW 16.1 H 16.1 H (11.0-16.0) % Plt Count 614 H 605 H (160-400) X10*3/uL MPV 8.1 L 8.2 L (9.4-12.4) fL Immature Gran % (Auto) 0.4 (0.0-0.4) % Neut % (Auto) 78.5 H (45-73) % Lymph % (Auto) 12.5 L (20-40) % Ness % (Auto) 7.7 (2-11) % Eos % (Auto) 0.7 (0-4) % Baso % (Auto) 0.2 (0-2) % Lymph # (Auto) 1.7 (1.2-4.9) X10*3/uL Ness # (Auto) 1.0 (0.1-1.2) X10*3/uL Eos # (Auto) 0.1 (0.0-0.4) X10*3/uL Baso # (Auto) 0.0 (0.0-0.2) X10*3/uL Abs Immat Gran (auto) 0.05 H (0.00-0.03) X10*3/uL Absolute Neuts (auto) 10.4 H (2.0-8.3) x10*3/uL Absolute Nucleated RBC 0.000 0.000 (0.0-0.012) X10*3/uL Nucleated RBC % (auto) 0.0 0.0 (0.0-0.2) /100WBC Sodium 138 (135-145) mmol/L Potassium 3.4 (3.3-5.1) mmol/L Chloride 105 (96-108) mmol/L Carbon Dioxide 22 (22-29) mmol/L Anion Gap 14 (12-20) BUN 19 H (9-16) mg/dL Creatinine 0.84 (0.5-1.4) mg/dL Estim Creat Clear Calc 149.2 Estimated GFR > 60 Random Glucose 111 (60-115) mg/dL Lactic Acid 0.5 (0.5-2.0) mmol/L Calcium 8.3 L D (8.4-10.2) mg/dL Magnesium 1.9 (1.6-2.6) mg/dL Total Bilirubin 0.1 (0.0-1.0) mg/dL Direct Bilirubin < 0.2 (0.0-0.5) mg/dL AST 12 (5-37) U/L ALT 7 (0-40) U/L Alkaline Phosphatase 88 (39-117) U/L Total Protein 7.4 (6.5-8.0) g/dL Albumin 3.0 L (3.5-5.0) g/dL Lipase 25 (8-78) U/L COVID-19 (EVA) Negative (Negative) COVID-19 Clin Com See Note Blood Type A Positive Antibody Screen NEGATIVE Independent Interpretation I performed an independent interpretation of an: CT Scan Interpretation: collections noted on CT scan Radiology Impression Discussion of test interpretation with radiology: I have reviewed the radiologist's reading. Radiologist Impression: FLUID collections noted R buttock 18cm transverse x 25cm craniocaudal 2cm depth L buttock 11cm transverse x 17cm craniocaudal 1.4cm depth Independent Historian Clinical information obtained from an independent historian. History obtained from or confirmed by: Parent External Record Review External record reviewed: Inpatient record Prescription Management I considered prescription management with: Pain Medication and Antibiotic (hold per plastics) Critical Care Time Critical Care Time Critical Care Time: Yes Total Critical Care Time: 35 Attestation: repeat IV pain medications , IV dilaudid x 2, improved pain, consult to plastic surgery I attest to this time spent taking care of the patient Discharge Plan Discharge Clinical Impression: Anemia Qualifiers: Anemia type: unspecified type Qualified Code(s): D64.9 - Anemia, unspecified Buttock wound Qualifiers: Encounter type: sequela Laterality: unspecified laterality Qualified Code(s): S 31.809S - Unspecified open wound of unspecified buttock, sequela Patient Disposition: Home, Self-Care Instructions: Anemia (ED), Chronic Wounds (ED) Additional Instructions: you need to recheck a CBC in 24 hours with your primary care doctor. call the [facility] Plastic office in the AM to tell them how you are feeling. They were notified about your visit. return for fevers, vomiting, worsening bleeding and pain. Prescriptions: New morphine 15 mg tablet 15 mg PO Q6H PRN (Reason: pain) Qty: 20 0RF Rx Instructions: partial fill okay; Partial Fill upon patient request. No Action ondansetron 4 mg tablet,disintegrating 4 mg PO Q8H PRN (Reason: nausea and vomiting) Qty: 20 0RF chlorhexidine gluconate [Scrub Chlorhexidine Gluconate] 4 % liquid See Rx Instructions .ROUTE .COMPLEX Qty: 237 3RF Rx Instructions: 1 appl topically 3 times weekly doxycycline monohydrate 100 mg capsule 100 mg PO BID Qty: 20 0RF
[2023-02-03] MEDS: 0.9 % Sodium Chloride 1,000 ML 999 ML IVCONT (23:29)
[2023-02-03] MEDS: ondansetron HCL 4 MG/2 ML VIAL IVPUSH (23:36)
[2023-02-03] MEDS: HYDROmorphone HCl 1 MG/ML SYRINGE IVPUSH (23:37)
--- NOTE | 2023-02-03 23:42 | PC.NURSE ---
pt resting quietly, mother at bedside, 20G IV placed left wrist, 1st set of cultures obtained, 1L NS running, medicated per JUL for 10/10 buttock pain. tech at bedside obtaining remaining labs, pt pending CT scan. no new orders at this time.
[2023-02-03 23:50] LABS: MANUAL DIFF FLAG NO
[2023-02-03 23:51] LABS: Basophils Percent Auto 0.2 % (0-2); Eosinophils Absolute Auto 0.1 X10*3/uL (0.0-0.4); Eosinophils Percent Auto 0.7 % (0-4); Hematocrit 26.8 % (42.0-52.0); Hemoglobin 8.1 g/dl (14.0-18.0); Imm Gran Abs Auto 0.05 X10*3/uL (0.00-0.03); Imm Gran Pct Auto 0.4 % (0.0-0.4); Lymphocytes Absolute Auto 1.7 X10*3/uL (1.2-4.9); Lymphocytes Percent Auto 12.5 % (20-40); Mean Corpuscular HGB Conc 30.2 g/dl (31.0-36.0); Mean Corpuscular Hemoglobin 23.7 pg (27.0-33.0); Mean Corpuscular Volume 78.4 fL (80.0-98.0); Mean Platelet Volume 8.1 fL (9.4-12.4); Monocytes Percent Auto 7.7 % (2-11); Neutrophils Absolute Auto 10.4 x10*3/uL (2.0-8.3); Neutrophils Percent Auto 78.5 % (45-73); Platelet Count 614 X10*3/uL (160-400); Red Blood Count 3.42 X10*6/uL (4.60-5.80); Red Cell Distribution Width 16.1 % (11.0-16.0); White Blood Count 13.2 X10*3/uL (4.8-10.8)
[2023-02-04 00:02] LABS: Lactic Acid 0.5 mmol/L (0.5-2.0)
[2023-02-04 00:06] LABS: Alanine Aminotransferase 7 U/L (0-40); Alkaline Phosphatase 88 U/L (39-117); Anion Gap 14 (12-20); Aspartate Amino Transferase 12 U/L (5-37); Bilirubin Direct < 0.2 mg/dL (0.0-0.5); Bilirubin Total 0.1 mg/dL (0.0-1.0); Blood Urea Nitrogen 19 mg/dL (9-16); COVID-19 Test Negative (Negative); Calcium 8.3 mg/dL (8.4-10.2); Carbon Dioxide 22 mmol/L (22-29); Chloride 105 mmol/L (96-108); Creatinine Clr Calc Pharmacy 149.2; Estimated Glomerular Filt Rate > 60; Glucose Random 111 mg/dL (60-115); IDNOW Serial# 08D9AD1C; Lipase 25 U/L (8-78); Magnesium 1.9 mg/dL (1.6-2.6); Potassium 3.4 mmol/L (3.3-5.1); Sodium 138 mmol/L (135-145); Total Protein 7.4 g/dL (6.5-8.0)
--- NOTE | 2023-02-04 00:25 | PC.NURSE ---
delay in abx administration due to pt in CT.
[2023-02-04 00:35] VITALS: BP 117/63; PULSE 71; RESP 18; TEMP 36.8; O2SAT 97
[2023-02-04] MEDS: Piperacillin Sodium/Tazobactam 3.375 GM in 0.9 % Sodium Chloride 50 ML IV (00:36)
[2023-02-04] MEDS: HYDROmorphone HCl 0.5 MG/0.5 ML SYRINGE IVPUSH (00:36)
[2023-02-04] MEDS: iohexoL 350 MG/ML 100 ML INFUS..BTL 85 ML IV (00:37)
--- NOTE | 2023-02-04 00:47 | PC.NURSE ---
pt back from CT, medicated per JUL w abx and medication for 10 pain.
--- NOTE | 2023-02-04 01:39 | MHC.EDTECH ---
Call out to [facility] transfer line @[phone] spoke to Jessika before passing call to
[2023-02-04 02:28] LABS: Hematocrit 26.7 % (42.0-52.0); Hemoglobin 8.1 g/dl (14.0-18.0); Mean Corpuscular HGB Conc 30.3 g/dl (31.0-36.0); Mean Corpuscular Hemoglobin 23.9 pg (27.0-33.0); Mean Corpuscular Volume 78.8 fL (80.0-98.0); Mean Platelet Volume 8.2 fL (9.4-12.4); Platelet Count 605 X10*3/uL (160-400); Red Blood Count 3.39 X10*6/uL (4.60-5.80); Red Cell Distribution Width 16.1 % (11.0-16.0); White Blood Count 12.3 X10*3/uL (4.8-10.8)
[2023-02-04 02:47] VITALS: BP 103/61; PULSE 54; RESP 16; O2SAT 99
--- NOTE | 2023-02-04 03:19 | MHC.EDTECH ---
Call out to [facility] @[phone] to book transport back home eta 20-25 mins
[2023-02-04] MEDS: Morphine Sulfate Immed Release 15 MG TABLET PO (03:31)
== END 2023-02-04 03:45 | disposition home or self-care (01) ==
PROVIDERS: Emergency Provider Emergency Medicine
DX: S31.809A Unspecified open wound of unspecified buttock, initial encounter (principal); D64.9 Anemia, unspecified; R10.2 Pelvic and perineal pain; X58.XXXA Exposure to other specified factors, initial encounter; Y93.9 Activity, unspecified; Y92.9 Unspecified place or not applicable; Y99.9 Unspecified external cause status; Z79.4 Long term (current) use of insulin; Z79.899 Other long term (current) drug therapy; Z20.822 Contact with and (suspected) exposure to COVID-19; Z20.828 Contact with and (suspected) exposure to other viral communicable diseases
CPT/HCPCS: 36415; 74177; 80048; 80076; 83605; 83690; 83735; 85025; 85027; 86850; 86900; 86901; 87040; 87147; 87205; 87635; 96361; 96365; 96366; 96367; 96375; 96376; 99284; J1170; J2405; J2543; Q9967

== ENCOUNTER 2023-02-17 13:12 | Emergency (ER) | payer OTHER, SELFPAY ==
[2023-02-17 13:18] VITALS: BP 138/56; BP 91/43; PULSE 64; PULSE 68; RESP 20; TEMP 36.9; O2SAT 94; O2SAT 97; BMI 23.8
[2023-02-17 13:40] VITALS: BP 91/43; PULSE 65; RESP 18; TEMP 36.9; O2SAT 96
--- NOTE | 2023-02-17 13:43 | ED_ITS ---
HPI - Wound/Laceration General Chief Complaint: Wound/Laceration Stated Complaint: stage 4 pressure sore Time Seen by Provider: 02/17/23 13:16 Source: patient, EMS and old records reviewed Mode of arrival: EMS Limitations: no limitations History of Present Illness HPI narrative: 37 yo male with PMH of stroke R sided hemiparesis anticoagulated on eliquis, hidradenitis suppuritiva s/p excision of both buttocks at [facility] on 02/08 DC home with pain medications and VNA - he has been doing okay but VNA did not show Saturday, Saturday, Saturday and mom feels she cannot change his dressings he is in too much pain. She also wasn't sure if it smelled more. He has not had fevers. Onset (ago): day(s) (since 02/12 surgery VNA was doing fine but mom cannot manage this) Location: other (bilateral buttocks. ) Place: home Patient tetanus UTD: Yes Context: other (s/p excision of hidradenitis) Associated symptoms: pain Treatments prior to arrival: bandage Related Data Previous Rx's Medication Instructions Recorded chlorhexidine gluconate 4 % See Rx Instructions .Route 10/06/20 topical liquid (Scrub .COMPLEX 2 doses #237 mL Chlorhexidine Gluconate) doxycycline monohydrate 100 mg 100 mg PO BID #20 caps 10/06/20 capsule ondansetron 4 mg disintegrating 4 mg PO Q8H PRN nausea and 01/03/21 tablet vomiting #20 tabs morphine 15 mg immediate release 15 mg PO Q6H PRN pain #20 tabs 02/04/23 tablet Allergies Allergy/AdvReac Type Severity Reaction Status Date / Time No Known Allergies Allergy Verified 02/17/23 13:43 Review of Systems 2 Review of Systems: Constitutional : No Fever, No Chills ENT/Mouth : No sore throat, No Rhinorrhea Eyes: No Eye Pain, No Swelling, No Redness Cardiovascular : No Chest Pain, No SOB Respiratory : No Cough, No Sputum Gastrointestinal : No Nausea, No Vomiting, No Diarrhea, No abdominal Pain Genitourinary : No Dysuria, No Hematuria Musculoskeletal : No joint pain, No Myalgias, No Joint Swelling Skin : pos Skin Lesions, positive skin rash Neuro : No Weakness, No Numbness, No Headache Psych : No Anxiety, No Depression All other systems reviewed and are negative [facility] Past Medical History Attestation statement: The following information was validated with the patient. Source: old records reviewed Medical History Abscess and cellulitis of gluteal region CVA (cerebral vascular accident) Opiate abuse, continuous Social History Social History (Updated 02/17/23 @ 13:48 by Luly Fields DO) Alcohol intake: never Patient Tobacco Use Status: Never used Tobacco Substance Use Type: Marijuana Advance Directives: No Physical Exam 2 Vital Signs: Vital Signs: Last Vital Signs Temp 98.4 F 02/17/23 13:40 Pulse 65 02/17/23 13:40 Resp 18 02/17/23 13:40 BP 91/43 L 02/17/23 13:40 Pulse Ox 96 02/17/23 13:40 O2 Del Method Room Air 02/17/23 13:40 BMI result Body Mass Index 23.8 Appearance: Alert. Oriented X3. No acute distress. Eyes: Pupils equal, round and reactive to light. ENT: Pharynx normal. Neck: Normal inspection. Neck supple. CVS: Normal heart rate and rhythm. Pulses normal. Respiratory: No respiratory distress. Breath sounds normal. Abdomen: Soft and nontender. Buttocks: large excision wounds on both buttocks but fresh viable tissue withou abscess purulence surrounding edema/erythema noted. Skin: Skin warm and dry. pale skin color. Extremities: No lower extremity edema. Neuro: Oriented X 3. R sided hemiparesis No sensory deficit. Course Course Course Narrative: Patient placed in physician observation at 236pm. The indication for observation is that the patient needs more time for CM to see the patient as the patient and mom state VNA is not reliable and they cannot manage this at home. At this time the patient is well developed well nourished, lungs clear, CV RRR, abd nontender, neuro is at baseline Medications Administered Discontinued Medications Generic Name Dose Route Start Last Admin Trade Name Freq PRN Reason Stop Dose Admin Oxycodone HCl 10 mg 02/17/23 13:37 02/17/23 14:02 Oxycodone Hcl Immed Release 5 Mg Tablet PO 02/17/23 13:38 10 mg ONCE ONE Administration Medical Decision Making Medical Decision Making [facility] Narrative: 37 yo male with PMH of stroke R sided hemiparesis anticoagulated on eliquis, hidradenitis suppuritiva s/p excision of both buttocks at [facility] on 02/08 here with c/o pain and mom cannot do wound changes VNA will not come this weekend - to check basic labs, CM involved and PO pain medications, BP is low due to him laying on side and R arm is stroke side not infection or severe sepsis Differential Diagnosis Differential Diagnoses: The differential diagnosis associated with the presentation includes wound, poor support Admission/Observation Consideration of admission/observation: Escalation of care including admission/observation considered observe for STR placement Consult Healthcare Provider Management of the patient was discussed with: Textile Engraver (case management) Lab Data MDM Lab Attestation statement: I reviewed the patient's lab results. 02/17/23 14:09 02/17/23 14:09 Labs: Lab Results 02/17/23 Range/Units 14:09 WBC 8.4 (4.8-10.8) X10*3/uL RBC 3.35 L (4.60-5.80) X10*6/uL Hgb 8.3 L (14.0-18.0) g/dl Hct 27.0 L (42.0-52.0) % MCV 80.6 (80.0-98.0) fL MCH 24.8 L (27.0-33.0) pg MCHC 30.7 L (31.0-36.0) g/dl RDW 18.5 H (11.0-16.0) % Plt Count 815 H D (160-400) X10*3/uL MPV 8.1 L (9.4-12.4) fL Immature Gran % (Auto) 0.4 (0.0-0.4) % Neut % (Auto) 62.0 (45-73) % Lymph % (Auto) 26.4 (20-40) % [place] % (Auto) 9.3 (2-11) % Eos % (Auto) 1.7 (0-4) % Baso % (Auto) 0.2 (0-2) % Lymph # (Auto) 2.2 (1.2-4.9) X10*3/uL [place] # (Auto) 0.8 (0.1-1.2) X10*3/uL Eos # (Auto) 0.1 (0.0-0.4) X10*3/uL Baso # (Auto) 0.0 (0.0-0.2) X10*3/uL Abs Immat Gran (auto) 0.03 (0.00-0.03) X10*3/uL Absolute Neuts (auto) 5.2 (2.0-8.3) x10*3/uL Absolute Nucleated RBC 0.000 (0.0-0.012) X10*3/uL Nucleated RBC % (auto) 0.0 (0.0-0.2) /100WBC Sodium 137 (135-145) mmol/L Potassium 4.1 D (3.3-5.1) mmol/L Chloride 102 (96-108) mmol/L Carbon Dioxide 24 (22-29) mmol/L Anion Gap 15 (12-20) BUN 16 (9-16) mg/dL Creatinine 0.82 (0.5-1.4) mg/dL Estim Creat Clear Calc 152.8 Estimated GFR > 60 Random Glucose 90 (60-115) mg/dL Calcium 9.2 D (8.4-10.2) mg/dL Independent Historian Clinical information obtained from an independent historian. History obtained from or confirmed by: Parent External Record Review External record reviewed: Inpatient record Discharge Plan Discharge Clinical Impression: Open wound of buttock Qualifiers: Encounter type: initial encounter Laterality: unspecified laterality Qualified Code(s): S31.809A - Unspecified open wound of unspecified buttock, initial encounter Patient Disposition: Still a Patient Prescriptions: No Action ondansetron 4 mg tablet,disintegrating 4 mg PO Q8H PRN (Reason: nausea and vomiting) Qty: 20 0RF chlorhexidine gluconate [Scrub Chlorhexidine Gluconate] 4 % liquid See Rx Instructions .ROUTE .COMPLEX Qty: 237 3RF Rx Instructions: 1 appl topically 3 times weekly doxycycline monohydrate 100 mg capsule 100 mg PO BID Qty: 20 0RF morphine 15 mg tablet 15 mg PO Q6H PRN (Reason: pain) Qty: 20 0RF Rx Instructions: partial fill okay; Partial Fill upon patient request.
[2023-02-17 14:25] LABS: Anion Gap 15 (12-20); Blood Urea Nitrogen 16 mg/dL (9-16); Calcium 9.2 mg/dL (8.4-10.2); Carbon Dioxide 24 mmol/L (22-29); Chloride 102 mmol/L (96-108); Creatinine Clr Calc Pharmacy 152.8; Estimated Glomerular Filt Rate > 60; Glucose Random 90 mg/dL (60-115); Potassium 4.1 mmol/L (3.3-5.1); Sodium 137 mmol/L (135-145)
--- NOTE | 2023-02-17 15:51 | MHC.CM.PN ---
CM MET WITH PT AND MOTHER AT BEDSIDE FOR ED CONSULT. PER MOTHER, PT WAS AT [facility] FROM 02/08 TO 02/12 FOR HIDRADENITIS SUPPURATIVA EXCISION BILAT BUTTOCKS. PT WAS SENT HOME FROM [facility] WITH [facility]NA WHO CAME IN TO THE HOME ON SATURDAY, FEB 15 TO REINFORCE TEACHING OF WOUND CARE TO MOTHER. SHE DOES NOT FEEL COMFORTABLE AT PRESENT DOING THE WOUND CARE. PT LIVES ALONE, R JOSE DUE TO CVA. USES W/C FOR MAJOR MOBILITY BUT USES CANE FOR HOUSEHOLD DISTANCES. +HCP ON FILE AT [facility] NAMING MOTHER AND BROTHER. CM SPOKE WITH MOTHER AND PT REGARDING NEEDING A PT EVAL SO REHAB REFERRALS CAN BE MADE. THEY ARE AGREEABLE TO THIS. PT'S INSURANCE REQUIRES PRE-AUTH WELL AND MAY NOT BE OPEN FOR THE HOLIDAY. CM WILL CONTINUE TO FOLLOW FOR DC NEEDS/PLAN
--- NOTE | 2023-02-17 17:24 | PHA.MEDREC ---
Pharmacy Consult ? Medication Reconciliation Pharmacy has completed the medication reconciliation. Patient's mother provided med list from [facility] and had the RX bottles of all medications with them to confirm meds. Per mother, patient still needs gabapentin and baclofen, however do not have any at the moment because they are in need of a new prescription.
[2023-02-17 18:00] VITALS: BP 113/53; PULSE 54; RESP 16; TEMP 36.7; O2SAT 100
--- NOTE | 2023-02-17 18:44 | PC.NURSE ---
Addendum entered by Erin Rowell 02/17/23 19:28: Per [facility]: Right buttock: once daily, wash the area with soap and water and then pat dry. Cover the area with ABD pads and secure them w paper or foam tape. Left buttock: once daily, wash the wound w soap and water and then pat dry. Apply normal saline-moistened gauze roll to cover the base of wound. Cover this with dry ABD pads and secure w paper or foam tape. Addendum entered by Erin Rowell 02/17/23 18:56: Per provider dressing changes daily, specific instruction in paperwork from [facility] - paperwork not brought over to overflow. Original Note: pt arrived in overflow at 1800, no wound assessment documented by prior RN, no notes regarding dressing take down, verbal report from new RN that pt needed wet to dry dressings. wound open to air on arrival with large amount of drainage on chux pad. s/p excision of hidradenitis suppurativa to left buttocks. low air loss mattress obtained and set up d/t pt risk for pressure wounds. wet to dry dressing w abd pads applied to wound. provider contacted to find out wound care needs per [facility] discharge instructions. pt reports that he is most comfortable on right side. hx prior stroke w R sided weakness/deficits, delayed speech. pt a&ox4, vss, reporting 10/10 left buttock pain. med rec completed by pharmacy, medication orders pending. safety precautions in place, call mariee at bedside. no new orders at this time.
[2023-02-18 06:00] VITALS: BP 108/55; PULSE 56; RESP 16; TEMP 36.6; O2SAT 94
[2023-02-18 10:10] VITALS: BP 116/50
[2023-02-18 12:09] VITALS: BP 126/62; PULSE 70; RESP 20; TEMP 36.6; O2SAT 99
--- NOTE | 2023-02-18 12:21 | PC.NURSE ---
Patient called for help - HABILITATIVE INTERVENTIONIST went in to assist, patient requested commode stating he needs to move bowels. HABILITATIVE INTERVENTIONIST asked patient to wait while she went to get the commode and socks, in few second patient was heard yelling out for help, HABILITATIVE INTERVENTIONIST went back to the room and found patient on the floor on his knees next to the bed holding on to the chair. Patient was assessed for injuries, no change in neuro assessment. Patient stated that he did not hit head but side of his right arm while sliding down. Nursing maternity floor supervisor and ED provider notified of the incident. VSS,
--- NOTE | 2023-02-18 13:10 | MHC.EDTECH ---
i went to go check on the patient. Patient stated he need to have a bowel moment and i told him wait for me dont move i have to get you a commode and socks then i heard yelling for help and when i walked in i saw patient on the floor with his upper body on the chair.
[2023-02-18 14:00] VITALS: BP 117/56; PULSE 75; RESP 20; TEMP 37; O2SAT 98
--- NOTE | 2023-02-18 16:07 | MHC.CM.ED ---
Patient remains in ER overflow. Physical therapy eval is still pending. Anticipate STR will be needed. Referral broadcasted within 25 miles of patient's home for bed availability. Continue to monitor for d/c needs.
[2023-02-18 20:52] VITALS: BP 118/59; PULSE 76; RESP 16; TEMP 36.9; O2SAT 96
[2023-02-19 06:00] VITALS: BP 109/57; PULSE 70; RESP 18; TEMP 36; O2SAT 96
--- NOTE | 2023-02-19 07:14 | PC.NURSE ---
Assumed care at 19:00 (02/18). RN and BUILDING CODE ADMINISTRATOR responded to bed alarm sounding just after finishing shift report. Two of the pt's family members were present in the room and observed holding the patient one under each of the pt's arms and getting the pt out of bed stating, he wants to walk . The pt's right leg was shaky and he appeared unsteady while standing; pt has a hx of stroke with right hemiparesis and he states he uses a cane at home. Pt offered to ambulate with nursing staff using the walker that was in the room but he refused. Pt was assisted back to bed and family educated that pt is still awaiting a PT evaluation and to please call nursing staff to assist with any activity OOB as pt is unsteady and had a documented fall during the day when attempting to get out of bed. Pt A&Ox2 to self and place. Disoriented to year. pt's family present at bedside answering pt's birthday and present year for him during assessment questions; RN explained importance of allowing pt to respond to assess orientation/neurological status. Pt reoriented. Pt c/o pain at gluteal abscesss site to bilteral buttocks. Site assessed and dressing changed per wound care instructions provided to pt on recent discharge s/p bilteral buttock excisions from [facility] (pt awaiting wound care to see him here). Dressing remains c/d/i. Pt and family educated on importance of frequent turning and repositioning, provided this shift as often as pt would allow. Pt medicated for pain with +effect, pt observed sleeping in bed with even and unlabored breathing without distress overnight. Voiding cyu in urinal. Denies acute complaints. Bed alarm on and in-room camera in place. Handoff report given @ 06:45.
[2023-02-19 08:25] VITALS: BP 109/57; PULSE 70; O2SAT 96
--- NOTE | 2023-02-19 13:37 | MHC.CM.ED ---
Patient remains in ER overflow. HCP completed, signed and witnessed. Original given to patient. Copy placed in chart. Patient aware PT rec STR. Patient also aware and that STR bed is trying to be found. Continue to monitor for d/c needs.
[2023-02-19 14:00] VITALS: BP 105/56; PULSE 64; RESP 16; TEMP 36.8; O2SAT 94
--- NOTE | 2023-02-19 14:28 | PC.NURSE ---
Wound care nurse in room will update recommendations.
--- NOTE | 2023-02-19 15:41 | HO.WOUND ---
Wound consultation: Initial 37yr old male admitted to [facility] [place] for wound care concerns - See H&P for pt clinical history. Wound location: Left Buttock Wound Etiology: Surgical site - secondary to Hidradenitis Suppuritiva Wound bed: marbled wound bed with red moist tissue and yellow slough and adipose tissue noted. Periwound: epibole edges, no erythema no induration no fluctuance no odorous drainage noted. Goals of Care: Moist wound healing and autolytic debridement. Wound location: Right Buttock Wound Etiology: Surgical site - secondary to Hidradenitis Suppuritiva Wound bed: Pin sized oozing areas approximately 4 sites - pt and mother report these were drainage site from aspiration. Periwound: Hyperpigmentation noted - -consistent with chronic moisture and chronic flares of Hidradenitis Suppuritiva, Induration and mild fluctuance noted throughout right buttocks. Observed old track darion sites from previous flares. Mild odorous drainage noted consistent with Hidradenitis Suppuritiva. Lower sites are draining serosanginous drainage and superior sites are draining creamy yellow white fluid - not consistent with purulence or active infection. Goals of Care: Moist management with dry dressings. Spoke to Pts mother via video chat with the patients phone - she reports the pt had surgery at [facility] for Hidradenitis Suppuritiva that was infected. She reports the pt does follow with Dermatology for treatment of his Hidradenitis and received Injections to control flares. The patient and his mother deny plan for skin graft - wound will heal by secondary intention. Pt instructed to maintain close followup with surgeon and Dermatology at time of discharge for wound healing and progress. Pt and mother educated on concern for wound bed in close proximity of anus and stool. Pt instructed to have close follow up in an effort to avoid infection. Photo review in chart reveals improved wound bed with wet to moist dressing - will continue topical treatment with NS moist gauze at this time to left buttock. Topical recommendations: Left Buttocks: Cleanse with NS moist gauze, pat dry. Apply Skin prep barrier wipe, allow to dry. Apply NS moist gauze to wound bed cover with ABD pad and secure with tape or Foam dressing. Change Daily and PRN for soiling. Right Buttocks: Cleanse with NS moist gauze, pat dry. Apply Skin prep barrier wipe, allow to dry. Apply Abd pad over draining sites, Change daily and PRN for soiling.
[2023-02-19 22:06] VITALS: BP 107/58; PULSE 56; TEMP 36.7; O2SAT 97
[2023-02-20 06:29] VITALS: BP 118/65; PULSE 60; RESP 18; TEMP 37; O2SAT 97
[2023-02-20 10:36] VITALS: BP 104/55; PULSE 63; RESP 16
--- NOTE | 2023-02-20 10:37 | PC.NURSE ---
Pt is alert/oriented, slow to respond but responds appropriately. Reports 9/10 pain to b/l leg wounds. Medicated as charted. On cell phone. Meds given. Resp even/unlabored. Skin midly pale, warm and dry. Warm blanket provided. Declined breakfast.
[2023-02-20 13:42] VITALS: BP 127/61; PULSE 73; RESP 17; TEMP 36.1; O2SAT 100
--- NOTE | 2023-02-20 16:15 | PC.NURSE ---
Dressings changed per wound care nurse recommendations, pt tolerated well. Repositioned.
[2023-02-20] MEDS: Baclofen 20 MG TABLET PO ×2 (17:26→20:40)
--- NOTE | 2023-02-20 17:38 | MHC.EDTECH ---
Assist patient with changing john and blankets after dinner. Patient washed hands and face.
--- NOTE | 2023-02-20 17:57 | PC.NURSE ---
Pt ate dinner, cleaned and repositioned again. Call mariee within reach
[2023-02-20] MEDS: oxyCODONE HCl Immed Release 5 MG TABLET 10 MG PO ×2 (18:41→23:17)
[2023-02-20] MEDS: Gabapentin 300 MG CAPSULE PO (20:39)
[2023-02-20] MEDS: Apixaban 5 MG TABLET PO (20:40)
[2023-02-20] MEDS: Scopolamine 1.5 MG PATCH.TD.3 TRANSDERMA (20:44)
--- NOTE | 2023-02-20 20:47 | PC.NURSE ---
Pt medicated per jul. pt requesting pain meds. This RN explained med can be given again at 11pm Plan of care ongoing.
[2023-02-20 21:13] VITALS: BP 117/62; PULSE 63; RESP 16; TEMP 36.2; O2SAT 98
--- NOTE | 2023-02-20 23:29 | PC.NURSE ---
Pt medicated per jul. Pt requested and light turned off. Plan of care ongoing.
--- NOTE | 2023-02-21 02:00 | PC.NURSE ---
Pt urinal emptied per request. Pt requested and light turned off. Pt resting quietly watching tv. Plan of care ongoing.
[2023-02-21] MEDS: oxyCODONE HCl Immed Release 5 MG TABLET 10 MG PO ×5 (03:46→20:10)
--- NOTE | 2023-02-21 03:53 | PC.NURSE ---
Pt a&ox4, no signs of distress. Pt requesting and given meds per mar. Plan of care ongoing.
[2023-02-21] MEDS: Omeprazole 40 MG CAPSULE.DR PO (06:18)
--- NOTE | 2023-02-21 06:32 | PC.NURSE ---
Pt medicated per mar. Pt watching tv Pt a&o, no signs of distress. Plan of care ongoing.
[2023-02-21 07:45] VITALS: BP 110/57; PULSE 72; TEMP 36; O2SAT 99
[2023-02-21] MEDS: FLUoxetine HCl 20 MG CAPSULE PO (07:49)
[2023-02-21] MEDS: Folic Acid 1 MG TABLET PO (07:49)
[2023-02-21] MEDS: Baclofen 20 MG TABLET PO ×4 (07:49→20:06)
[2023-02-21] MEDS: DULoxetine HCl 30 MG CAPSULE.DR PO (07:49)
[2023-02-21] MEDS: Gabapentin 300 MG CAPSULE PO ×3 (07:49→20:05)
[2023-02-21] MEDS: amLODIPine Besylate 5 MG TABLET PO (07:49)
[2023-02-21] MEDS: Apixaban 5 MG TABLET PO ×2 (07:49→20:06)
[2023-02-21] MEDS: Ferrous Sulfate 324 MG TABLET.DR PO (07:49)
--- NOTE | 2023-02-21 13:38 | PC.NURSE ---
report recieved from overnight RN, medical billing coder per JUL. pt c/o pain to buttocks throughout day - medication admin per JUL with little effect per pt. Pt assists OOB to BSC. Assisted back to bed, wound care preformed and dressing changed, tolerated well. Safety precautions remain in place, call mariee within reach, pt encouraged to call for assistance. camera in room, bed alarm on
[2023-02-21 15:51] VITALS: BP 108/54; PULSE 53; RESP 18; TEMP 36.6; O2SAT 98
[2023-02-21] MEDS: Acetaminophen 325 MG TABLET 650 MG PO (20:06)
[2023-02-21 22:00] VITALS: BP 110/62; PULSE 76; RESP 18; TEMP 36.3; O2SAT 99
--- NOTE | 2023-02-22 00:42 | PC.NURSE ---
Assumed care of pt at 1900. PT alert and oriented x4. Upon assessment this RN noted PT dressing and remigio to be soiled. PT requested to be medicated prior to dressing changed. All nights medication administer as per JUL. PT right buttocks . Left buttock wound draining moderate amount of seroanguinous fluid, order free. Wound bed covered in red granulation tissue with yellow slough, no necrotic tissue present, edges well-defined. No signs of infection present. Wound cleansed and dressing changed as per wound care instructions. PT educated on not touching wound with bare, uncleaned hands to reduce risk of infection. Jesi care provided, urinal emptied. PT provided juice. No complaints at this time. Call mariee within reach
[2023-02-22] MEDS: oxyCODONE HCl Immed Release 5 MG TABLET 10 MG PO ×5 (02:15→21:43)
--- NOTE | 2023-02-22 02:17 | PC.NURSE ---
pt used call mariee to request pain medication. reporting 10/10 buttocks pain. medicated pt as per
--- NOTE | 2023-02-22 04:38 | PC.NURSE ---
ED rounds completed. PT awake and on his phone in no acute distress. PT reports no pain at this time. No other concerns or complaints noted. Call mariee within reach.
[2023-02-22 06:00] VITALS: BP 128/60; PULSE 67; RESP 20; TEMP 36.3; O2SAT 100
[2023-02-22] MEDS: Omeprazole 40 MG CAPSULE.DR PO (06:26)
--- NOTE | 2023-02-22 06:27 | PC.NURSE ---
PT alert and oriented- watching tv. medicated as per JUL. Reporting 02/19 pain. PRN medication given. Dressings dry at this time. video monitoring and bed alarm on. Call mariee within reach
--- NOTE | 2023-02-22 07:55 | PC.NURSE ---
assumed care of pt at 0700. report taken from DIANNA Mayorga. pt awake, alert, and oriented. breakfast given, pt consumed 100%. pt resting quietly in hospital bed watching TV, reporting 8/10 pain to pt wounds. in no apparent distress. all pt needs met kristen. call mariee within pt reach. commode and urinal at bedside. plan of care ongoing.
[2023-02-22 08:56] VITALS: BP 115/59; PULSE 55; RESP 16; TEMP 37.2; O2SAT 99
[2023-02-22] MEDS: FLUoxetine HCl 20 MG CAPSULE PO (08:58)
[2023-02-22] MEDS: Folic Acid 1 MG TABLET PO (08:58)
[2023-02-22] MEDS: DULoxetine HCl 30 MG CAPSULE.DR PO (08:58)
[2023-02-22] MEDS: Gabapentin 300 MG CAPSULE PO ×3 (08:58→21:41)
[2023-02-22] MEDS: Ferrous Sulfate 324 MG TABLET.DR PO (08:59)
[2023-02-22] MEDS: Apixaban 5 MG TABLET PO ×2 (08:59→21:41)
[2023-02-22] MEDS: amLODIPine Besylate 5 MG TABLET PO (08:59)
[2023-02-22] MEDS: Acetaminophen 325 MG TABLET 650 MG PO ×2 (09:04→17:59)
[2023-02-22] MEDS: Baclofen 20 MG TABLET PO ×4 (09:04→21:41)
[2023-02-22 10:26] VITALS: BP 115/59; PULSE 55; O2SAT 99
--- NOTE | 2023-02-22 11:24 | MHC.CM.ED ---
Patient remains in ER overflow. Patient was prescribed Ilaris SC at [facility]. Patient last received it 02/01. He doesn't have any more at home. This prescription is very expensive and will not be able to be provided at a SNF. Medication would be covered by [facility] with prior auth. T/W spoke with [facility]. Prior auth has not been submitted yet. It will not likely be approved within 2 weeks. Frances LUTZ aware and has d/c'd this medication. [facility] is able to offer a bed. Patient accepts. [facility] is in the process of obtaining ins auth. Continue to monitor for d/c needs.
[2023-02-22 13:16] VITALS: BP 114/52; PULSE 66; RESP 20; TEMP 36.7; O2SAT 98
--- NOTE | 2023-02-22 14:49 | PC.NURSE ---
pt hygiene performed by this RN and KYLER Bass. wound dressing change provided to pt's buttocks. pt tolerated well. wet to dry dressing change to left buttock. wound appears pink/beefy red. wound dressings changed to right buttock as well. pink foam applied to lower right buttock to open/bleeding small wound. pt repositioned in bed, call mariee within pt reach. lights dimmed. pt watching tv in no apparent distress. plan of care ongoing. pt plan to go to [facility] when insurance authorization is obtained.
--- NOTE | 2023-02-22 15:17 | MHC.CM.ED ---
Insurance auth has been obtained from [facility]. Patient can leave tomorrow 02/23 at 10am. SHANTAL JONES booked. Med nec with chart. Patient, Sonia BUSTAMANTE and Janel LUTZ aware. Paper prescriptions for narcotics will have to go with patient. Nurse to nurse can be called to [phone]. Michael VALVERDE has also been made aware. Continue to monitor for d/c needs.
[2023-02-22 21:22] VITALS: BP 111/57; PULSE 72; RESP 16; TEMP 36.1; O2SAT 97
[2023-02-23] MEDS: Acetaminophen 325 MG TABLET 650 MG PO (02:22)
[2023-02-23] MEDS: oxyCODONE HCl Immed Release 5 MG TABLET 10 MG PO ×2 (03:29→09:17)
[2023-02-23] MEDS: Omeprazole 40 MG CAPSULE.DR PO (05:48)
[2023-02-23 05:51] VITALS: BP 109/62; PULSE 52; RESP 16; TEMP 36.3; O2SAT 98
--- NOTE | 2023-02-23 05:57 | PC.NURSE ---
pt assessed during the shift, c/o moderate to severe left buttock pain, medicated per MAR
[2023-02-23] MEDS: Gabapentin 300 MG CAPSULE PO (09:17)
[2023-02-23] MEDS: Baclofen 20 MG TABLET PO (09:17)
[2023-02-23] MEDS: DULoxetine HCl 30 MG CAPSULE.DR PO (09:17)
[2023-02-23] MEDS: Apixaban 5 MG TABLET PO (09:17)
[2023-02-23] MEDS: amLODIPine Besylate 5 MG TABLET PO (09:18)
[2023-02-23] MEDS: Folic Acid 1 MG TABLET PO (09:18)
[2023-02-23] MEDS: Ferrous Sulfate 324 MG TABLET.DR PO (09:18)
[2023-02-23] MEDS: FLUoxetine HCl 20 MG CAPSULE PO (09:18)
--- NOTE | 2023-02-23 12:56 | PC.NURSE ---
Pt voided on commode 2 assist pivot at 09:30. XL bowel movement dark brown, firm 09:50 Dressings to b/l buttocks changed per wound consult note Pt provided education on acute wounds, diet for wound healing. Discharge packet reviewed with Pt and mother with side gluer Annamaria. Pt d/c to [facility] [place] via ambulance departed 11:02am. Via stretcher with 2 ambulance personnel.
== END 2023-02-23 11:28 | disposition skilled nursing facility (03) ==
PROVIDERS: Emergency Provider Emergency Medicine
DX: S31.829A Unspecified open wound of left buttock, initial encounter (principal); S31.819A Unspecified open wound of right buttock, initial encounter; L73.2 Hidradenitis suppurativa; R51.9 Headache, unspecified; M25.562 Pain in left knee; M25.561 Pain in right knee; F12.90 Cannabis use, unspecified, uncomplicated; R26.2 Difficulty in walking, not elsewhere classified; X58.XXXA Exposure to other specified factors, initial encounter; Y93.9 Activity, unspecified; Y92.9 Unspecified place or not applicable; Y99.9 Unspecified external cause status; Z20.822 Contact with and (suspected) exposure to COVID-19; Z11.52 Encounter for screening for COVID-19; Z79.01 Long term (current) use of anticoagulants; Z79.899 Other long term (current) drug therapy; Z91.81 History of falling
CPT/HCPCS: 36415; 70450; 73560; 80048; 85025; 87635; 97116; 97162; 99285

== ENCOUNTER 2024-01-21 18:24 | Emergency (ER) | payer OTHER, SELFPAY ==
--- NOTE | ~2024-01-21 | CT_ITS ---
EXAMINATION: CT PELVIS WITHOUT CONTRAST CLINICAL INFORMATION: Right gluteal abscess COMPARISON: CT abdomen and pelvis 02/04/2023 TECHNIQUE: Helical scanning was performed with submillimeter collimation through the pelvis. Sagittal and coronal multiplanar 2-D reconstructions were obtained. This CT examination was performed using dose optimization techniques as appropriate, variously including the following: *Automated exposure control *Adjustment of mA and/or kV according to patient size (this includes techniques or standardized protocols for targeted exams where dose is matched to indication/reason for exam; i.e. extremities or head) *Use of iterative reconstruction technique DLP: 685 mGy-cm FINDINGS: Again seen is gluteal thickening which is significantly improved on the left compared to the prior study and mildly improved on the right. Overall this measures 12.3 x 1.6 by over 20 cm in length. Thickening extends from the mid sacrum down to the crease of the buttock. There does appear to be some fluid within this area of thickening that measures water density (for example 2:44), but no inflammatory changes are seen in the surrounding fat. The visualized bowel including the appendix appears unremarkable. No free pelvic fluid is seen. No retroperitoneal adenopathy is seen. There are prominent inguinal lymph nodes are present, right greater than left. The largest measures 2.1 cm in short axis dimension compared with 2.3 cm at the time of the prior study (2:50 compared prior 3:91). The prostate and seminal vesicles appear normal. The bladder is unremarkable. Degenerative changes are present in the spine at L4-L5. There is an old healed fracture involving the left femoral neck with a screw in place and marked associated degenerative changes at the left femoral acetabular joint. Mild degenerative changes are seen in the right femoral acetabular joint with loss of superior joint space. No bony destructive lesions. CT/CT pelvis wo IV con IMPRESSION: 1. Significant improvement in left gluteal skin thickening with only mild improvement in right gluteal thickening. There is a small amount of fluid within this area of thickening on the right, but no inflammatory changes are seen in the surrounding fat. 2. Other incidental findings as described above including degenerative changes in the spine, old left femoral neck fracture with screw and marked degenerative changes at the left femoral acetabular joint and mild degenerative changes in the right femoral acetabular joint. 3. Prominent inguinal lymph nodes, right greater than left, slightly decreased in size since 02/04/2023. Electronically signed by: Patricio Fraser MD 01/21/2024 11:30 PM EDT RP
--- NOTE | 2024-01-21 18:52 | ED_ITS ---
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 with right gluteal abscess status post I and D in the past noticed increased swelling and pain and discharge for last few days no fever no chills Related Data Home Medications ?Medication ?Instructions ?Recorded ?Confirmed acetaminophen 500 mg tablet 500 mg PO Q4H PRN Pain 02/17/23 02/17/23 amlodipine 5 mg tablet 5 mg PO DAILY 02/17/23 02/17/23 apixaban 5 mg tablet (Eliquis) 5 mg PO BID 02/17/23 02/17/23 baclofen 20 mg tablet 20 mg PO QID 02/17/23 02/17/23 canakinumab (PF) 150 mg/mL 150 mg subcut Q4W 02/17/23 02/17/23 subcutaneous solution (Ilaris (PF)) chlorhexidine gluconate 4 % 1 appl topical DAILY 02/17/23 02/17/23 topical liquid clindamycin phosphate 1 % topical 1 appl topical BID PRN flared 02/17/23 02/17/23 gel lesion prophylaxis duloxetine 30 mg capsule,delayed 30 mg PO DAILY 02/17/23 02/17/23 release ferrous sulfate 325 mg (65 mg 325 mg PO DAILY 02/17/23 02/17/23 iron) tablet fluoxetine 20 mg capsule 20 mg PO DAILY 02/17/23 02/17/23 folic acid 1 mg tablet 1 mg PO DAILY 02/17/23 02/17/23 gabapentin 300 mg capsule 300 mg PO TID 02/17/23 02/17/23 omeprazole 40 mg capsule,delayed 40 mg PO DAILY@0630 02/17/23 02/17/23 release oxycodone 10 mg tablet 10 mg PO Q4H PRN Pain 02/17/23 02/17/23 scopolamine base 1 mg over 3 days 1 mg topical Q3D 02/17/23 02/17/23 transdermal patch (Transderm-Scop) tizanidine 4 mg tablet 2 mg PO TID PRN Muscle Spasm 02/17/23 02/17/23 Previous Rx's ?Medication ?Instructions ?Recorded oxycodone 5 mg capsule 5 mg PO Q8H PRN pain #10 caps 02/23/23 cephalexin 500 mg capsule 500 mg PO QID 10 days #40 caps 01/21/24 doxycycline hyclate 100 mg tablet 100 mg PO BID #20 tabs 01/21/24 Allergies Allergy/AdvReac Type Severity Reaction Status Date / Time No Known Allergies Allergy Verified 01/21/24 19:03 Review of Systems 2 Review of Systems: Yes all other systems are reviewed and are negative [facility] Past Medical History Medical History Abscess and cellulitis of gluteal region CVA (cerebral vascular accident) Opiate abuse, continuous Social History Social History Alcohol intake: never Patient Tobacco Use Status: Never used Tobacco Substance Use Type: Marijuana Advance Directives: Yes Advance Directives on File: Yes Advance Directives Date on File: 02/19/23 Do you have a plan to hurt others: No Plan Physical Exam ED Vital Signs: Vital Signs - 24 hr 01/21/24 19:02 01/21/24 20:18 01/21/24 22:00 Temperature 98.0 F 98.9 F Pulse Rate 78 65 Respiratory Rate 18 16 16 Blood Pressure 102/56 L 117/68 Pulse Oximetry 97 97 Oxygen Delivery Method Room Air Room Air 01/21/24 23:04 Temperature Pulse Rate Respiratory Rate 14 Blood Pressure Pulse Oximetry Oxygen Delivery Method BMI result Body Mass Index 33.4 Appearance: Alert. Oriented X3. No acute distress. Eyes: No pallor or icterus ENT: Pharynx normal. Oral Mucosa moist Neck: Normal inspection. Neck supple. CVS: Normal heart rate and rhythm. Pulses normal. Respiratory: No respiratory distress. Equal air entry bilateral, Abdomen: Soft and nontender. Bowel sounds are present, no mass palpable, no CVA tenderness Skin: Skin warm and dry. Normal skin color. Normal skin turgor. Extremities: No lower extremity edema. No calf tenderness induration and tenderness right gluteal area shown in the picture Neuro: Oriented X 3. No motor deficit. No sensory deficit.No cerebellar signs , cranial nerves II-XII intact Medications Administered Discontinued Medications Generic Name Dose Route Start Last Admin Trade Name Freq PRN Reason Stop Dose Admin Hydromorphone HCl 1 mg 01/21/24 20:13 01/21/24 20:18 Hydromorphone Hcl 1 Mg/Ml Syringe IVPUSH 01/21/24 20:14 1 mg ONCE ONE Administration Protocol Hydromorphone HCl 1 mg 01/21/24 22:12 01/21/24 23:04 Hydromorphone Hcl 1 Mg/Ml Syringe IVPUSH 01/21/24 22:13 1 mg ONCE ONE Administration Protocol Sodium Chloride 1,000 mls @ 999 mls/hr 01/21/24 19:36 01/21/24 21:35 Ns IV 01/21/24 20:36 Infused .Q1H1M ONE Infusion Vancomycin HCl 2,000 mg in 500 mls @ 250 mls/hr 01/21/24 19:38 01/21/24 21:36 Vancomycin/Ns IV 01/21/24 21:37 250 mls/hr ONCE ONE Administration Piperacillin Sod/Tazobactam 50 mls @ 100 mls/hr 01/21/24 19:38 01/21/24 21:36 Sod 3.375 gm/ Sodium Chloride IV 01/21/24 20:07 Infused ONCE ONE Infusion Morphine Sulfate 4 mg 01/21/24 19:38 01/21/24 20:55 Morphine Sulfate 4 Mg/Ml Cartridge IVPUSH 01/21/24 19:39 Not Given ONCE ONE Protocol Ondansetron HCl 4 mg 01/21/24 19:38 01/21/24 20:17 Ondansetron Hcl 4 Mg/2 Ml Vial IVPUSH 01/21/24 19:39 4 mg ONCE ONE Administration Medical Decision Making Medical Decision Making [facility] Narrative: Patient with ongoing right gluteal abscesses normal WBC count blood increased pain in thickness of the skin will do CT scan to rule out deep abscesses meanwhile start on vancomycin and Zosyn CT scan negative for any fluid collection shows much improvement from the previous CT scans with cellulitic findings will prescribe doxycycline cephalexin discharge patient home Differential Diagnosis Differential Diagnoses: The differential diagnosis associated with the presentation includes Cellulitis/deep abscess Admission/Observation Consideration of admission/observation: Escalation of care including admission/observation considered Lab Data [facility] Lab Attestation statement: I reviewed the patient's lab results. 01/21/24 20:13 09/10/24 20:13 Labs: Lab Results 01/21/24 Range/Units 20:13 WBC 8.0 (4.8-10.8) X10*3/uL RBC 3.71 L (4.60-5.80) X10*6/uL Hgb 10.3 L D (14.0-18.0) g/dl Hct 33.3 L D (42.0-52.0) % MCV 89.8 (80.0-98.0) fL MCH 27.8 (27.0-33.0) pg MCHC 30.9 L (31.0-36.0) g/dl RDW 18.5 H (11.0-16.0) % Plt Count 599 H D (160-400) X10*3/uL MPV 8.3 L (9.4-12.4) fL Immature Gran % (Auto) 0.5 H (0.0-0.4) % Neut % (Auto) 69.2 (45-73) % Lymph % (Auto) 19.7 L (20-40) % Jack % (Auto) 8.5 (2-11) % Eos % (Auto) 1.6 (0-4) % Baso % (Auto) 0.5 (0-2) % Lymph # (Auto) 1.6 (1.2-4.9) X10*3/uL Jack # (Auto) 0.7 (0.1-1.2) X10*3/uL Eos # (Auto) 0.1 (0.0-0.4) X10*3/uL Baso # (Auto) 0.0 (0.0-0.2) X10*3/uL Abs Immat Gran (auto) 0.04 H (0.00-0.03) X10*3/uL Absolute Neuts (auto) 5.6 (2.0-8.3) x10*3/uL Absolute Nucleated RBC 0.000 (0.0-0.012) X10*3/uL Nucleated RBC % (auto) 0.0 (0.0-0.2) /100WBC Sodium 138 (135-145) mmol/L Potassium 4.1 (3.3-5.1) mmol/L Chloride 105 (96-108) mmol/L Carbon Dioxide 26 (22-29) mmol/L Anion Gap 11 L (12-20) BUN 16 (9-16) mg/dL Creatinine 0.70 (0.5-1.4) mg/dL Estim Creat Clear Calc 165.3 Estimated GFR > 60 Random Glucose 105 (60-115) mg/dL Lactic Acid 1.9 (0.5-2.0) mmol/L Calcium 8.9 (8.4-10.2) mg/dL Total Bilirubin < 0.1 (0.0-1.0) mg/dL AST 11 (5-37) U/L ALT 12 (0-40) U/L Alkaline Phosphatase 140 H (39-117) U/L Total Protein 7.9 (6.5-8.0) g/dL Albumin 3.4 L (3.5-5.0) g/dL Independent Interpretation I performed an independent interpretation of an: CT Scan Radiology Impression Discussion of test interpretation with radiology: I have reviewed the radiologist's reading. Radiologist Impression: [place] [id number] CT Scan Report Signed Patient: David Guzmán MR#: [id number] : 1985 Acct:[id number] Age/Sex: 38 / M ADM Date: 01/21/24 Loc: .ED Attending Dr: Ordering Physician: Yordy Regalado MD Date of Service: 01/21/24 Procedure(s): CT pelvis wo IV con Accession Number(s): [id number] cc: Physician,None ; Yordy Regalado MD~ EXAMINATION: CT PELVIS WITHOUT CONTRAST CLINICAL INFORMATION: Right gluteal abscess COMPARISON: CT abdomen and pelvis 02/04/2023 TECHNIQUE: Helical scanning was performed with submillimeter collimation through the pelvis. Sagittal and coronal multiplanar 2-D reconstructions were obtained. This CT examination was performed using dose optimization techniques as appropriate, variously including the following: *Automated exposure control *Adjustment of mA and/or kV according to patient size (this includes techniques or standardized protocols for targeted exams where dose is matched to indication/reason for exam; i.e. extremities or head) *Use of iterative reconstruction technique DLP: 685 mGy-cm FINDINGS: Again seen is gluteal thickening which is significantly improved on the left compared to the prior study and mildly improved on the right. Overall this measures 12.3 x 1.6 by over 20 cm in length. Thickening extends from the mid sacrum down to the crease of the buttock. There does appear to be some fluid within this area of thickening that measures water density (for example 2:44), but no inflammatory changes are seen in the surrounding fat. The visualized bowel including the appendix appears unremarkable. No free pelvic fluid is seen. No retroperitoneal adenopathy is seen. There are prominent inguinal lymph nodes are present, right greater than left. The largest measures 2.1 cm in short axis dimension compared with 2.3 cm at the time of the prior study (2:50 compared prior 3:91). The prostate and seminal vesicles appear normal. The bladder is unremarkable. Degenerative changes are present in the spine at L4-L5. There is an old healed fracture involving the left femoral neck with a screw in place and marked associated degenerative changes at the left femoral acetabular joint. Mild degenerative changes are seen in the right femoral acetabular joint with loss of superior joint space. No bony destructive lesions. CT/CT pelvis wo IV con IMPRESSION: 1. Significant improvement in left gluteal skin thickening with only mild improvement in right gluteal thickening. There is a small amount of fluid within this area of thickening on the right, but no inflammatory changes are seen in the surrounding fat. 2. Other incidental findings as described above including degenerative changes in the spine, old left femoral neck fracture with screw and marked degenerative changes at the left femoral acetabular joint and mild degenerative changes in the right femoral acetabular joint. 3. Prominent inguinal lymph nodes, right greater than left, slightly decreased in size since 02/04/2023. Electronically signed by: Patricio Fraser MD 01/21/2024 11:30 PM EDT Discharge Plan Discharge Clinical Impression: Chronic wound Patient Disposition: Home, Self-Care Instructions: Chronic Wounds (ED) Additional Instructions: No significant pus collection was noticed in the CT scan Take antibiotics as prescribed Follow with your wound clinic/PCP Prescriptions: New doxycycline hyclate 100 mg tablet 100 mg PO BID Qty: 20 0RF cephalexin 500 mg capsule 500 mg PO QID 10 Days Qty: 40 0RF No Action tizanidine 4 mg tablet 2 mg PO TID PRN (Reason: Muscle Spasm) amlodipine 5 mg tablet 5 mg PO DAILY omeprazole 40 mg capsule,delayed release(DR/EC) 40 mg PO DAILY@0630 clindamycin phosphate 1 % gel 1 appl topical BID PRN (Reason: flared lesion prophylaxis) ferrous sulfate 325 mg (65 mg iron) tablet 325 mg PO DAILY scopolamine base [Transderm-Scop] 1 mg over 3 days patch 3 day 1 mg topical Q3D fluoxetine 20 mg capsule 20 mg PO DAILY duloxetine 30 mg capsule,delayed release(DR/EC) 30 mg PO DAILY oxycodone 10 mg tablet 10 mg PO Q4H PRN (Reason: Pain) Eliquis 5 mg tablet 5 mg PO BID Ilaris (PF) 150 mg/mL solution 150 mg subcut Q4W baclofen 20 mg tablet 20 mg PO QID gabapentin 300 mg capsule 300 mg PO TID folic acid 1 mg tablet 1 mg PO DAILY chlorhexidine gluconate 4 % Liquid 1 appl TOPICAL DAILY Rx Instructions: apply to areas of hidradenitis suppurativa acetaminophen 500 mg Tablet 500 mg PO Q4H PRN (Reason: Pain) oxycodone 5 mg capsule 5 mg PO Q8H PRN (Reason: pain) Qty: 10 0RF Rx Instructions: Partial Fill upon patient request. Print Language: Filipino
[2024-01-21 18:57] VITALS: BP 130/75; PULSE 85; O2SAT 100
[2024-01-21 19:02] VITALS: BP 102/56; PULSE 78; RESP 18; TEMP 36.7; O2SAT 97; BMI 33.4
--- OUTSIDE RECORDS SUMMARY | 2024-01-21 19:28 | XMS_ITS | Continuity of Care Document ---
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 Name Role Phone Genoveva PAGAN, Derek Primary Care Physician Encounter [facility] Date(s): 09/10/23 - 10/10/23 [facility] [address] [place] [id number]- Attending Physician: aSngeetha Latif Admitting Physician: AdmtrSangeetha Referring Physician: Admtr, Ar8 Allergies, Adverse Reactions, Alerts No Known Allergies Immunizations Given and Recorded Vaccine Date Status Refusal Reason influenza virus vaccine, inactivated 05/18/22 Give n tetanus/diphtheria/pertussis, acel(Tdap) 09/13/19 Recorded Medications amLODIPine 5 mg oral tablet 5 mg, 1, tablet, By Mouth, Daily, # 30 tablet, Refills 0, Tot. Refills 0, Maintenance, 06/17/23 8:53:00 EST, Route to Pharmacy Electronically, [facility], Partial fill upon patient request if the prescription is for a schedule II opioid... Start Date: 06/17/23 Status: Ordered ascorbic acid 500 mg oral tablet 1 tablet = 500 mg, By Mouth, Daily, # 30 tablet, 0 Refills, Maintenance, 09/06/23 12:42:00 EDT, Tablet, [id number], Partial fill upon patient request if the prescription is for a schedule II opioid drug., 193, cm, 09/05/23 19:48:00 EDT, Height... Start Date: 09/06/23 Status: Ordered baclofen 20 mg oral tablet 20 mg, 1, tablet, By Mouth, 4 times a day, # 120 tablet, Refills 5, Tot. Refills 5, Maintenance, 08/06/23 9:00:00 EDT, Route to Pharmacy Electronically, [id number], 182, cm, 07/26/23 9:16:00 EDT, Height, 89, kg, 07/03/23 11:22:00 EST, Dry Weight Start Date: 08/06/23 Status: Ordered docusate sodium 100 mg oral capsule 1 capsule, By Mouth, 2 times a day, # 60 capsule, 11 Refills, Maintenance, 09/03/23 17:44:00 EDT, [id number], 193, cm, 09/03/23 14:09:00 EDT, Height, 91.4, kg, 08/30/23 12:03:00 EDT, Dry Weight Start Date: 09/03/23 Status: Ordered duloxetine 30 mg oral enteric coated capsule 1 capsule = 30 mg, By Mouth, Daily, TAKE 1 CAPSULE BY MOUTH EVERY DAY, # 30 capsule, 6 Refills, Maintenance, 09/03/23 17:47:00 EDT, Capsule, [facility][id number], Partial fill upon patient request if the prescription is for a schedule II opioid drug., 1... Start Date: 09/03/23 Stop Date: 03/31/24 Status: Ordered Eliquis 5 mg oral tablet 1 tablet = 5 mg, By Mouth, 2 times a day, Maintenance, 09/21/23 10:38:00 EDT, Partial fill upon patient request if the prescription is for a schedule II opioid drug. Start Date: 09/21/23 Status: Ordered FeroSul 325 mg oral tablet 1 tablet = 325 mg, By Mouth, 2 times a day, Maintenance, 09/21/23 10:40:00 EDT, Partial fill upon patient request if the prescription is for a schedule II opioid drug. Start Date: 09/21/23 Status: Ordered folic acid 1 mg oral tablet 1 mg, 1, tablet, By Mouth, Daily, Maintenance, 09/21/23 10:41:00 EDT, Partial fill upon patient request if the prescription is for a schedule II opioid drug. Start Date: 09/21/23 Status: Ordered gabapentin 600 mg oral tablet 1 tablet = 600 mg, By Mouth, 3 times a day, # 90 tablet, 11 Refills, Maintenance, 08/12/23 13:51:00EDT, Tablet, [id number], Partial fill upon patient request if the prescription is for a schedule II opioid drug., 182, cm, 07/26/23 9:16:00 EDT... Start Date: 08/12/23 Status: Ordered hydroxyurea 500 mg oral capsule = 500 mg, By Mouth, Daily, for 30 days, # 30 capsule, 2 Refills, Acute 10/18/23 14:36:00 EDT, 07/20/23 14:36:00 EST, Capsule, [id number], Partial fill upon patient request if the prescriptionis for a schedule II opioid drug., 182, cm, ... Start Date: 07/20/23 Stop Date: 10/18/23 Status: Ordered Narcan 4 mg/0.1 mL nasal spray 1 sprays = 4 mg, Nares, Both, Once, To be used use one spray in one nostril. if an additional dose is needed, alternate nostril. may repeat every 2 to 3 minutes until patient responds, # 2 each, 0 Refills, Soft Stop, 08/23/23 15:54:00 EDT, [facility]... Start Date: 08/23/23 Status: Ordered oxyCODONE 30 mg IR tablet 1 tablet = 30 mg, By Mouth, Every 12 hours, PRN as needed for pain, for 4 days, # 8 tablet, 0 Refills, Acute 10/12/23 12:47:00 EDT, 10/08/23 12:47:00 EDT, Tablet, [facility], Partial fill upon patient request if the prescription is for a... Start Date: 10/08/23 Stop Date: 10/12/23 Status: Ordered pantoprazole 40 mg oral delayed release tablet = 40 mg, By Mouth, Daily, # 30 tablet, 0 Refills, Maintenance, 09/16/23 19:09:00 EDT, EC Tablet, 193, cm, 09/16/23 18:47:00 EDT, Height, 91.4, kg, 08/30/23 12:03:00 EDT, Dry Weight Start Date: 09/16/23 Stop Date: 10/16/23 Status: Ordered tiZANidine 2 mg oral tablet 4 mg, 2, tablet, By Mouth, Every 8 hours, PRN, # 180 tablet, Refills 11, Tot. Refills 11, Maintenance, as needed for muscle spasm, 08/12/23 13:51:00 EDT, Route to Pharmacy Electronically, [facility]/pharmacy #[id number], Partial fill upon patient request if the pr... Start Date: 08/12/23 Status: Ordered triamcinolone 0.1% topical cream 1 application, Topically, 2 times a day, *DO NOT APPLY TO OPEN WOUND(S)*, Maintenance, 09/21/23 10:42:00 EDT, Partial fill upon patient request if the prescription is for a schedule II opioid drug. Start Date: 09/21/23 Status: Ordered Vashe wound solution Vashe wound solution, See Instructions, # 1 each, Refills 11, Tot. Refills 11, Maintenance, Use 45mL daily, 08/12/23 14:10:00 EDT, Supply, 182, cm, 07/26/23 9:16:00 EDT, Height, 89, kg, 07/03/23 11:22:00 EST, Dry Weight Start Date: 08/12/23 Status: Ordered Vitamin D3 1000 intl units oral tablet 1 tablet = 25 mcg, By Mouth, Daily, # 30 tablet, 0 Refills, Maintenance, 07/16/23 10:05:00 EST, Tablet, [facility], Partial fill upon patient request if the prescription is for a schedule II opioid drug., 182, cm, 07/04/23 14:56:00 EST,... Start Date: 07/16/23 Status: Ordered Problem List Condition Confirmation Course Effective Dates Status [facility] Informant Chronic ischemic left ICA stroke Confirmed Active Chronic pain Confirmed Active Depression Confirmed Active Controlled substance agreement signed 10/16/22 Confirmed Active GERD (gastroesophageal reflux disease) Confirmed Active Hidradenitis suppurativa Confirmed Active History of ischemic stroke Confirmed Active Hypertension Confirmed Active Wound of buttock Confirmed Active Insomnia Confirmed Active Iron deficiency anemia Confirmed Active PATY (iron deficiency anemia) Confirmed Active 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 N [facility] Care Management, Fund Controller Carmen Elizabeth [phone] Confirmed Active Therapeutic drug monitoring Confirmed Active Peripheral neuropathy Confirmed Active Right spastic hemiparesis Confirmed Active Spasticity Confirmed Active Tobacco dependence Confirmed Active Social History Social History Type Response Smoking Status 5-9 cigarettes (betw een 1/4 to 1/2 pack)/day in last 30 days entered on: 05/16/22 Sex Patient Care team information Care Team Personnel Name: Anu Lipscomb Position: S RN Member Role: Primary Care Nurse Name: Jeanne Bryant RN Position: S RN Member Role: Primary Care Nurse Name: Mitch Guido RN Position: S RN Member Role: Primary Care Nurse Name: Areli Pittman RN Position: [facility] ED RN W/OE and Tasks Member Role: Primary Care Nurse Name: Derek Tomas MD Position: [facility] Resident Member Role: PCP Address: Address: [address] [place] [address] Name: Monique Irwin LPN Position: [facility] RN Member Role: Primary Care Nurse Name: Lianna Epstein RN Position: [facility] RN Member Role: Primary Care Nurse Name: Mk Knutson LPN Position: [facility] RN Member Role: Primary Care Nurse Name: Farhana Garcia RN Position: [facility] RN Member Role: Primary Care Nurse Name: Kenyatta Villegas RN Position: [facility] RN Member Role: Primary Care Nurse Name: Albertina Adams RN Position: [facility] RN Member Role: Primary Care Nurse Name: Ricardo Russell RN Position: [facility] RN Member Role: Primary Care Nurse Name: Gissell Jernigan RN Position: [facility] RN Member Role: Primary Care Nurse Name: Farhana Green RN Position: [facility] RN Member Role: Primary Care Nurse Name: Cydney Delgado RN Position: [facility] RN Member Role: Primary Care Nurse Name: Sharon Mendez RN Position: [facility] RN Member Role: Primary Care Nurse Name: Mookie Christianson RN Position: [facility] RN Member Role: Primary Care Nurse Name: Ally Boyd RN Position: [facility] RN Member Role: Primary Care Nurse Name: Javed Oneill RN Position: [facility] RN Member Role: Primary Care Nurse Name: Lynn Stewart RN Position: [facility] RN Member Role: Primary Care Nurse Name: Amanda Johnson RN Position: [facility] RN Member Role: Primary Care Nurse Name: Jolie Villalobos RN Position: [facility] RN Member Role: Primary Care Nurse Name: Axel Savage RN Position: [facility] RN Member Role: Primary Care Nurse Name: Dirk Driver RN Position: [facility] RN Member Role: Primary Care Nurse Name: Glenys Bee RN Position: [facility] RN Member Role: Primary Care Nurse Name: Praveen Maurer Position: [facility] RN Member Role: Primary Care Nurse Name: Filemon King RN Position: [facility] RN Member Role: Primary Care Nurse Name: Lauren Guevara RN Position: [facility] RN Member Role: Primary Care Nurse Name: Annamaria Quinn RN Position: [facility] RN Member Role: Primary Care Nurse Name: Jada Waller RN Position: [facility] RN Member Role: Primary Care Nurse Name: Lashawn Nagy RN Position: [facility] RN Member Role: Primary Care Nurse Name: Rhonda Tate LPN Position: [facility] RN Member Role: Primary Care Nurse Name: Jacquelin Naranjo RN Position: [facility] RN Member Role: Primary Care Nurse Name: Glenys Fox RN Position: [facility] RN Member Role: Primary Care Nurse Care Team Related Persons Name: JUHI BEVERLY Address: home [place], [place] Name: HEENA MCQUEEN Address: home [address] [place], [place] Name: AISLINN DE LA PAZ Address: home [address] [place] [address]
--- OUTSIDE RECORDS SUMMARY | 2024-01-21 19:28 | XMS_ITS | Continuity of Care Document ---
Author Organization [facility] ter Address [address] [place] [id number]- Care Team Providers Care Financial Institution Vice President Name Role Phone Niki Li MD Primary Care Physician Encounter [facility] [place] Date(s): 05/31/23 - 06/01/[address] [address]- Encounter Diagnosis Hidradenitis suppurativa(Final) - 05/31/23 Discharge Disposition: A-D/C AMA Attending Physician: Cruz Lopez MD Admitting Physician: Neftali Ribeiro MD Referring Physician: Not on Staff, Referring [...] CAPSULE DAILY Start Date: 05/17/22 Status: Ordered Air Mattress Air Mattress, See Instructions, # 1 each, Refills 0, Tot. Refills 0, Maintenance, Use daily to prevent progression of pressure ulcer. Z86.73, L89.159. Fax to [facility], 05/30/23 18:09:00 EST, Supply Start Date: 05/30/23 Status: Ordered amLODIPine 5 mg oral tablet 1 tablet, By Mouth, Daily, for 30 days, # 30 tablet, 11 Refills, Physician Stop 12/08/23 11:18:00 EDT, 12/13/22 11:18:00 EDT, [facility]/pharmacy #[id number], 193.04, cm, 12/13/22 10:25:00 EDT, Height, 99.6, kg, 06/06/22 18:00:00 EST, Dry Weight Start Date: 12/13/22 Stop Date: 12/08/23 Status: Ordered baclofen 20 mg oral tablet 20 mg, 1, tablet, By Mouth, 4 times a day, # 120 tablet, Refills 0, Tot. Refills 0, Maintenance, 05/30/23 19:42:00 EST, Route to Pharmacy Electronically, [facility]/pharmacy #[id number], 193, cm, 05/28/23 11:48:00 EST, Height, 89.6, kg, 05/24/23 8:20:00 EST, Dry W... Start Date: 05/30/23 Status: Ordered CHUX CHUX, See Instructions, # 60 each, Refills 11, Tot. Refills 11, Maintenance, 2 per day Functional Incontinence R39.81, 11/01/22 16:32:00 EDT, Supply Start Date: 11/01/22 Status: Ordered clindamycin 1% topical gel 1 application, Topically, 2 times a day, # 30 Gm, 0 Refills, Maintenance, 05/23/23 12:54:00 EST, Gel, Partial fill upon patient request if the prescription is for a schedule II opioid drug. Start Date: 05/23/23 Status: Ordered Diapers, adult extra Large Diapers, adult extra Large, See Instructions, # 60 each, Refills 11, Tot. 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 L73.2 FunctionalIncontinence R39.81 Please fax to Talisha Start Date: 11/01/22 Status: Ordered doxycycline hyclate 100 mg oral enteric coated tablet 1 tablet = 100 mg, By Mouth, 2 times a day, # 20 tablet, 0 Refills, Maintenance, 05/23/23 12:55:00 EST, CR Tablet, Partial fill upon patient request if the prescription is for a schedule II opioid drug. Start Date: 05/23/23 Stop Date: 08/01/23 Status: Ordered duloxetine 30 mg oral enteric coated capsule 1 capsule, By Mouth, Daily, # 30 capsule, 5 Refills, Maintenance, 08/17/22 15:25:00 EDT, [facility] STORE [id number], 193.04, cm, 07/23/22 14:07:00 EDT, Height, 99.6, kg, 06/06/22 18:00:00 EST, Dry Weight Start Date: 08/17/22 Status: Ordered Eliquis 5 mg oral tablet 1 tablet, By Mouth, 2 times a day, # 60 tablet, 11 Refills, 02/07/22 11:13:00 EDT, [facility]/pharmacy #[id number], 193, cm, 02/07/22 10:31:00 EDT, Height, 97.2, kg, 10/26/21 9:21:00 EDT, Dry Weight Start Date: 02/07/22 Status: Ordered ferrous sulfate 325 mg oral tablet 1 tablet = 325 mg, By Mouth, Daily, TAKE 1 TABLET BY MOUTH EVERY DAY NEEDED Start Date: 09/12/22 Status: Ordered FLUoxetine 20 mg oral capsule 1, capsule, By Mouth, Daily, # 30 capsule, Refills 14, Maintenance, 08/13/22 15:55:00 EDT, Route toPharmacy Electronically, [facility] STORE [id number], 193.04, cm, 07/23/22 14:07:00 EDT, Height, 99.6, kg, 06/06/22 18:00:00 EST, Dry Weight Start Date: 08/13/22 Status: Ordered folic acid 1 mg oral tablet 1 mg, 1, tablet, By Mouth, Daily, TAKE 1 TABLET BY MOUTH EVERY DAY THAT YOU ARE NOT TAKING METHOTREXATE Start Date: 09/12/22 Status: Ordered gabapentin 300 mg oral capsule 300 mg, Capsule, By Mouth, 06/01/23 9:00:00 EST Start Date: 06/01/23 Stop Date: 06/01/23 Status: Completed gabapentin 300 mg oral capsule 300 mg, 1, capsule, By Mouth, 3 times a day, # 270 capsule, Refills 0, Tot. Refills 0, Maintenance,05/22/23 23:48:00 EST, Route to Pharmacy Electronically, [facility]/pharmacy #[id number], Partial fill upon patient request if the prescription is for a schedule II... Start Date: 05/22/23 Status: Ordered Hospital bed Hospital bed, See Instructions, # 1 each, Refills 0, Tot. Refills 0, Maintenance, Use as needed daily, 04/11/23 6:56:00 EST, Supply, 193.04, cm, 12/13/22 10:25:00 EDT, Height, 99.6, kg, 06/06/22 18:00:00 EST, Dry Weight Start Date: 04/11/23 Status: Ordered hydroxyurea 500 mg oral capsule 1 capsule = 500 mg, By Mouth, Daily, # 60 capsule, 0 Refills, Maintenance, 05/23/23 14:12:00 EST, Capsule, Partial fill upon patient request if the prescription is for a schedule II opioid drug. Start Date: 05/23/23 Status: Ordered large gauze large gauze, See Instructions, # 100 each, Refills 0, Tot. Refills 0, Maintenance, L73.2 HS, 08/02/22 16:16:00 EDT, Supply Start Date: 08/02/22 Status: Ordered omeprazole 40 mg oral enteric coated capsule 1 capsule, By Mouth, Daily, # 30 capsule, 5 Refills, Maintenance, 08/13/22 15:28:00 EDT, [facility]/pharmacy #[id number], 193.04, cm, 07/23/22 14:07:00 EDT, Height, 99.6, kg, 06/06/22 18:00:00 EST, Dry Weight Start Date: 08/13/22 Status: Ordered oxyCODONE 5 mg oral tablet 2.5 mg, Tablet, By Mouth, Every 6 hours, PRN for Pain , Moderate, Routine, 05/31/23 22:55:00 EST Start Date: 05/31/23 Stop Date: 06/01/23 Status: Discontinued oxyCODONE 5 mg oral tablet 10 mg, 2, tablet, By Mouth, Every 6 hours, PRN, Take 1-2 tablets depending on severity of pain upto4 times a day., # 30 tablet, Refills 0, Tot. Refills 0, Maintenance, Pain , Severe, 05/28/23 8:49:00 EST, Route to Pharmacy Electronically, [facility] Ph... Start Date: 05/28/23 Status: Ordered oxyCODONE 5 mg oral tablet 5 mg, Tablet, By Mouth, Every 6 hours, PRN for Pain , Severe, Routine, 05/31/23 15:58:00 EST Start Date: 05/31/23 Stop Date: 06/01/23 Status: Discontinued Right ankle & foot orthosis Right ankle & foot orthosis, See Instructions, # 1 each, Refills 1, Tot. Refills 1, Maintenance, Please dispense 1 right ankle and foot othosis Dx: R29.898, R26.81, M25.373 Length of need: 99 months Number to fax to: [phone], 01/06/21 13:10:00 E... Start Date: 01/06/21 Status: Ordered tiZANidine 2 mg oral tablet 4 mg, 2, tablet, By Mouth, Every 8 hours, PRN, # 90 tablet, Refills 0, Maintenance, as needed for muscle spasm, 05/31/23 22:16:00 EST, Partial fill upon patient request if the prescription is for a schedule II opioid drug. Start Date: 05/31/23 Status: Ordered transfer tub bench transfer tub bench, See Instructions, # 1 each, Refills 0, Tot. Refills 0, Maintenance, use as needed to prevent fall. Diagnosis: Stroke, Impaired Mobility. ICD10 I63.9, ICDR26.2. KRISSY 99 for PCP Jacobo Fuchs Fax to Steve, 07/23/22 14:27:00... Start Date: 07/23/22 Status: Ordered walker with platform attached walker with platform attached, See Instructions, # 1 each, Refills 0, Tot. Refills 0, Maintenance, Please dispense 1 (one) walker with attached platform Ht: 187.6cm Wt: 101.4kg Dx: History of stroke - Z86.73, Right-sided weakness - R53.1,Spastici... Start Date: 11/11/20 Status: Ordered Problem List Condition Confirmation Course Effective Dates Status [facility] atus Informant Chronic ischemic left ICA [...] apex Confirmed Active [facility] CP Care Management, Operations And Maintenance Technician Carmen Elizabeth [phone] Confirmed Active Therapeutic drug monitoring Confirmed Active Peripheral neuropathy Confirmed Active Right spastic hemiparesis Confirmed Active Spasticity Confirmed Active Tobacco dependence Confirmed Active Results Orders for Microbiology Reports Name Date Wound Superficial Culture W/ Gram Smear (Superficial Wound Culture W/ Gram Smear) 05/31/23 Microbiology Reports TEST:Superficial Wound Culture STATUS:Unauthenticated BODY SITE: SOURCE:SWAB1 COLLECTED DATE/TIME:05/31/23 2:00 PM Superficial Wound Culture SPECIMEN DESCRIPTION : SWAB BUTTOCK RT SPECIAL REQUESTS : NONE GRAM STAIN : 1+ POLYMORPHONUCLEAR LEUKOCYTES NO ORGANISMS SEEN CULTURE : NO GROWTH TO DATE REPORT STATUS : PRELIMINARY REPORT Radiology Reports * Exam Date Time Procedure Performing Provider Status 05/31/23 6:[address] Pelvis W/ Contrast Sultana Fox; Auth (Verified) Notes: (CT Pelvis W/ Contrast) Reason For Exam: ?worsening infection;Other: RESULT: CT Pelvis W/ Contrast CT Pelvis W/ Contrast Hx of Present Illness: wounds; Reason: Other:; ?worsening infection; Clinical Question(s): Other:; Order Comment: TECHNIQUE: Helical CT with IV contrast formatted in 3 planes. 100 cc of Omnipaque 300 was administered intravenously. Enteric contrast administered. Automatic tube modulation and/or iterative dose reconstruction were used to optimize exposure parameters. CTDIvol Body: 9.40 mGy, DLP Body: 740 mGy*cm. COMPARISON: None FINDINGS: Lockstitch Shoulder Joiner View Findings, Lines and Tubes: None. Visualized bowel: Normal caliber bowel loops without acute surrounding inflammatory changes. Appendix: No evidence of acute appendicitis. Bladder: Unremarkable. Reproductive organs: Unremarkable. Peritoneum and retroperitoneum: No ascites or pneumoperitoneum. No omental or mesenteric lesions. Lymph nodes: As on the prior examination are multiple enlarged lymph nodes within the right inguinal region, not significantly changed. Blood vessels: Normal. No evidence of venous thrombosis. Pelvic soft tissues: As on the prior examination there is skin thickening involving the right buttocks and extending laterally and superiorly to the level of upper portion of SI joint and inferiorly into the upper thigh posteriorly. There is no drainable collection. Bones: No acute abnormality. IMPRESSION: No significant change in previously seen areas of marked skin thickening involving the right buttocks and upper posterior thigh. Recommend hematology consult and consider tissue biopsy to exclude lymphomatous involvement of the skin. An actionable message ([place]) has been communicated via the [employer] system on 05/31/2023 6:52 PM, Message ID [id number]. WSN: [id number] Ordering Physician: Ruben Gonsalez Dictated By: Ericka Alejandra MD Dictated Date/Time: 05/31/23 6:52 pm Reviewed By: Ericka Alejandra MD Signed By: Ericka Alejandra MD Signed Date/Time: 05/31/23 6:52 pm Transcribed By: ZEHRA Transcribed Date/Time: 05/31/23 6:38 pm Vital Signs Most recent to oldest [Reference Range]: 1 2 3 Height 193 cm (06/01/23 9:54 AM) 193 cm (06/01/23 8:05 AM) Weight 90.9 kg (06/01/23 9:54 AM) 90.9 kg (06/01/23 8:05 AM) Oxygen Saturation [94-100 %] 99 % (06/01/23 8:05 AM) 98 % (06/01/23 7:01 AM) 97 % (06/01/23 2:33 AM) Pulse Rate [55-90 bpm] 86 bpm (06/01/23 8:05 AM) 78 bpm (06/01/23 7:01 AM) 81 bpm (06/01/23 2:33 AM) Body Mass Index [18.5-24.99 kg/m2] 24.4 kg/m2 (06/01/23 8:05 AM) Blood Pressure [90-138/55-84 mm Hg] 122/76mm Hg (06/01/23 8:05 AM) 112/69mm Hg (06/01/23 7:01 AM) 127/72mm Hg (06/01/23 2:33 AM) Respiratory Rate [16-30 br/min] 18 br/min (06/01/23 9:25 AM) 18 br/min (06/01/23 9:09 AM) 20 br/min (06/01/23 8:55 AM) Temperature [96.8-100.4 DegF] 98.6 DegF (06/01/23 8:05 AM) 98.1 DegF (06/01/23 7:01 AM) 98.2 DegF (05/31/23 10:46 PM) Mode of Delivery (Oxygen) Room air (06/01/23 8:05 AM) Room air (06/01/23 7:01 AM) Room air (06/01/23 2:33 AM) Blood pressure sites Arm, left (06/01/23 8:05 AM) Arm, left (06/01/23 7:01 AM) Arm, left (06/01/23 2:33 AM) Temperature Route Oral (06/01/23 8:05 AM) Oral (06/01/23 7:01 AM) Oral (05/31/23 10:46 PM) Dry Weight 90.9 kg (06/01/23 9:54 AM) 90.9 kg (06/01/23 8:05 AM) Social History Social History Type Response Smoking Status 5-9 cigarettes (betw een 1/4 to 1/2 pack)/day in last 30 days entered on: 05/16/22 Sex Admission evaluation note * Olimpia PAGAN, Hai: MODIFY, PERFORM, MODIFY Event Display: Admission Note Authored Date: [id number] Patient: ??ERNESTO MCQUEEN ? Age:??37 Years?Sex:??Male?:??1985?? Chief Complaint/Reason for Consultation Pt ??is ??coming from home after a recent admission stay at [facility], patient reporting increased ??pain to left buttocks area where the bedsore is ??located to left buttocks area. Pt is bedbound dueto a severe stroke, mother takes care of ??patient at home c History of Present Illness 37-year-old??male with PMH of left ICA stroke with residual right-sided spastic hemiparesis (on baclofen) and dysarthria; mural thrombus of cardiac apex on Eliquis; severe hydradenitis suppurativa s/p excision of left buttock plastic surgery, follows with dermatology outpatient; PATY; thrombocytosis; chronic pain syndrome on oxycodone; HTN; depression; -Recently discharged on 05/29/2022 for right-sided gluteal hidradenitis suppurative; -Presented with chief complaint of pain gluteal increasing since last 2 days, unable to stand because of pain. -Patient denied any fevers, chills, chest pain, SOB, abdominal pain, nausea, vomiting, dysuria. ?? Patient has upcoming appointment with [facility] to discuss surgical options, gets wound care in-house, during recent discharge, plan was to set up VNA care and wound care.?? Patient was treated for feverand cellulitis, blood cultures were negative; was treated with initially vancomycin, discharged on Augmentin, completed Rx.? In the ED, patient was found to have left gluteal skin incision site without stigmata of infection,right gluteal area with scattered abscesses draining seropurulent liquid. ?? Vitals: Afebrile, HR 60s-80s, RR 12-18, BP 100s-110s/40s-160s, saturating well on room air. ?? Labs: -Normal WBC; H/H 7.6/26, MCV 80 (H/H similar to recent admission); platelets 788 (patient on hydroxyurea outpatient) -CMP grossly unremarkable, albumin 3.0. -Recently done iron studies showed TSAT 7%, serum iron 16, ferritin 39; normal folate and vitamin B12 levels. -Viral panel negative for influenza, COVID, RSV. ?? CT A/P with IV contrast showed no significant change in previously seen areas of mild skin thickening involving right buttocks and upper posterior thigh.?? Official read mentions recommendation for hematology consult and consider tissue biopsy to exclude lymphomatous involvement of the skin. ?? ED Meds: Oxycodone IR 10 mg tablet-; oxycodone 5 mg Review of Systems -14 point ROS done, pertinent positives and negative history mentioned in HPI. Objective Vital Signs?? Temperature: 98.3 DegF (05/31/23 20:54:00) Temperature Route: Oral (05/31/23 20:54:00) Pulse Rate: 88 bpm (05/31/23 20:54:00) Respiratory Rate: 18 br/min (05/31/23 20:54:00) Systolic Blood Pressure: 118 mm Hg (05/31/23 20:54:00) Diastolic Blood Pressure: 68 mm Hg (05/31/23 20:54:00) Blood pressure sites: Arm, right (05/31/23 20:54:00) Mean Arterial Pressure: 80 mm Hg (05/31/23 18:47:00) Pulse Pressure: 50 mm Hg (05/31/23 20:54:00) Oxygen Saturation: 96 % (05/31/23 20:54:00) Mode of Delivery (Oxygen): Room air (05/31/23 20:54:00) Early Warning Score: 0 (05/31/23 21:02:40) ? Physical Exam General: Awake, alert, oriented x3. ??Not in acute distress. ??Able to speak in full sentences. Following commands appropriately. HEENT: NC/AT, PERRLA, + pallor, no icterus, moist mucous membranes. Neck: Supple, no JVD Respiratory: Clear to auscultation bilaterally. ??No wheezes, rhonchi or crackles appreciated. CVS: Regular rhythm. ??Normal S1-S2 heard. ??No murmurs appreciated. Abdomen: Soft, nondistended, nontender, Normoactive bowel sounds. Neurological: Dysarthric speech, chronic;??moving??left side of the body, minimal movement of??RLE,??slight movement noted in??RUE. Extremities: B/L pedal pulses palpable. ??No LE edema. Left gluteal skin incision site without stigmata of infection, right gluteal area with scattered abscesses draining seropurulent liquid.?? Covered in dressing, Assessment/Plan Diagnoses Acute pain ??(R52) Hidradenitis suppurativa ??(L73.2) 1. ??Depression ??(F32.A) 2. ??GERD (gastroesophageal reflux disease) ??(K21.9) 3. ??Hypertension ??(I10) 4. ??Iron deficiency anemia ??(D50.9) 5. ??Mural thrombus of cardiac apex ??(I51.3) 6. ??Peripheral neuropathy ??(G62.9) 7. ??Spasticity ??(R25.2) 8. ??Wound of buttock ??(U06.842N) 9. ??History of ischemic stroke ??(Z86.73) 10. ??Right spastic hemiparesis ??(G81.11) 11. ??Chronic pain ??(G89.29) ?? Assessment:??37-year-old??male with PMH of left ICA stroke with residual right- sided spastic hemiparesis (on baclofen) and dysarthria; mural thrombus of cardiac apex on Eliquis; severe hydradenitis suppurativa s/p excision of left buttock plastic surgery, follows with dermatology outpatient; PATY; th rombocytosis; chronic pain syndrome on oxycodone; HTN; depression;??presented with acute on chronicpain; being admitted under medicine service. ?? Acute pain (R52):??- Chronic pain (G89.29):??-??Patient presented with acute on chronic??pain -Continue p.o. oxycodone??2.5-5 mg every 6 hours as needed??moderate-severe pain ?? Iron deficiency anemia (D50.9):??--Recently done iron studies showed TSAT 7%, serum iron 16, ferritin 39; normal folate and vitamin B12 levels. -Hemoglobin iron deficit??to achieve hemoglobin of 12,??1000 mg -Will give??IV Venofer to 50 mg x 3; continue??p.o. ferrous sulfate -Continue folic acid ?? Mural thrombus of cardiac apex (I51.3):??-??Continue home Eliquis ?? History of ischemic stroke (Z86.73):??- Right spastic hemiparesis (G81.11):??- Spasticity (R25.2):??-??Continue home scheduled baclofen; as needed tizanidine ?? Hypertension (I10):??-??Continue home amlodipine ?? Hidradenitis suppurativa (L73.2):??- Wound of buttock (S34.838L):??-Patient has upcoming appointment with [facility] to discuss surgical options, gets wound care in-house, during recent discharge, plan was to set up VNA care and wound care.??Patient was treated for fever and cellulitis, blood cultures were negative; was treated with initially vancomycin, discharged on Augmentin, completed Rx.? Peripheral neuropathy (G62.9):??-??Continue home gabapentin ?? GERD (gastroesophageal reflux disease) (K21.9):??-??Continue home PPI ?? Depression (F32.A):??-??Continue home fluoxetine, duloxetine ?? VTE Prophylaxis:??-On Eliquis ?VTE Prophylaxis Assessment:??VTE Prophylaxis Ordered ?? Code Status:??-Full Code ?Order Code Status:??Code Status Ordered ?? Date of Service: 05/31/2023 I spent a total of??72 minutes, including both vmve-qe-pelc and rrm-yalz-mi-face time on the date of the encounter, addressing the above diagnoses. Activities performed in this time include chart review, obtaining/reviewing history, performing a medically necessary evaluation, CODE STATUS ??discussion, documentation, charting and counseling, documentation, charting and counseling. ?? Please note: This note has been prepared using voice recognition software ([employer]). As a result errors may occur. When identified these board lining machine operator errors have been corrected. While every attempt is made to correct errors during dictation, errors may still exist; for any clarifications, pleasereach out to me on [employer] or pager. Histories Allergies Allergies ?(Active and Proposed Allergies Only) NKA? (Severity: Unknown severity, Onset: Unknown) ? Past Medical History/Problem List Active Problems??(18) [facility] Operations And Maintenance Technician Carmen Elizabeth [phone] Chronic ischemic left ICA stroke Chronic pain Controlled substance agreement signed 10/16/22 Depression GERD (gastroesophageal reflux disease) Hidradenitis suppurativa History of ischemic stroke Hypertension Insomnia Iron deficiency anemia Mural thrombus of cardiac apex Peripheral neuropathy Right spastic hemiparesis Spasticity Therapeutic drug monitoring Tobacco dependence Wound [...] Asthma Brother: Asthma ? Medications Home Medications Acitretin (acitretin 10 mg oral capsule)?TAKE 1 CAPSULE EVERY OTHER DAY FOR NEXT 2 WEEKS THEN 1 CAPSULE DAILY Amlodipine (amLODIPine 5 mg oral tablet)?1?tab(s)?By Mouth?Daily?for 30?Days apixaban (Eliquis 5 mg oral tablet)?1?tab(s)?By Mouth?2 times a day Baclofen (baclofen 20 mg oral tablet)?20?Milligram?1?tablet?By Mouth?4 times a day Clindamycin Topical (clindamycin 1% topical gel)?1?boyd?Topically?2 times a day Doxycycline (doxycycline hyclate 100 mg oral enteric coated tablet)?1?tab(s)?100?Milligram?By Mouth?2 times a day?for 10?week(s) Duloxetine (duloxetine 30 mg oral enteric coated capsule)?1?capsule?By Mouth?Daily Durable Medical Equipment (walker with platform attached)?See Instructions?Please dispense 1 (one) walker with attached platformHt: 187.6cmWt: 101.4kgDx: History of stroke - Z86.73, Right-sidedweakness - R53.1,Spasticity due to old stroke - I69.398Length of need: 99months Durable Medical Equipment (Right ankle & foot orthosis)?See Instructions?Please dispense 1 right ankle and foot othosisDx: R29.898, R26.81, M25.373Length of need: 99 monthsNumber to fax to:[phone] Durable Medical Equipment (3 in 1 commode)?See Instructions?use as needed to prevent fall. Diagnosis: Stroke, Impaired Mobility. ICD10 I63.9, ICDR26.2.KRISSY 99for PCP Morris Fuchsx to [facility] Durable Medical Equipment (transfer tub bench)?See Instructions?use as needed to prevent fall. Diagnosis: Stroke, Impaired Mobility. ICD10 I63.9, ICDR26.2.KRISSY 99for PCP Morris Fuchsx to [facility] Durable Medical Equipment (large gauze)?See Instructions?L73.2 HS Durable Medical Equipment (Diapers, adult extra Large)?See Instructions?2 per dayChronic drainage, bleeding of buttocks lesions due to severe hidradenitis L73.2Functional Incontinence R39.81 Please fax to [facility] Durable Medical Equipment (CHUX)?See Instructions?2 per dayFunctional Incontinence R39.81 Durable Medical Equipment (Hospital bed)?See Instructions?Use as needed daily Durable Medical Equipment (Air Mattress)?See Instructions?Use daily to prevent progression ofpressure ulcer. Z86.73, L89.159. Fax to [facility] Ferrous Sulfate (ferrous sulfate 325 mg oral tablet)?1?tab(s)?325?Milligram?By Mouth?Daily?TAKE 1 TABLET BY MOUTH EVERY DAY NEEDED Fluoxetine (FLUoxetine 20 mg oral capsule)?1?capsule?By Mouth?Daily Folic Acid (folic acid 1 mg oral tablet)?1?Milligram?1?tablet?By Mouth?Daily?TAKE 1 TABLET BY MOUTH EVERY DAY THAT YOU ARE NOT TAKING METHOTREXATE Gabapentin (gabapentin 300 mg oral capsule)?300?Milligram?1?capsule?By Mouth?3 times a day Hydroxyurea (hydroxyurea 500 mg oral capsule)?1?capsule?500?Milligram?By Mouth?Daily Omeprazole (omeprazole 40 mg oral enteric coated capsule)?1?capsule?By Mouth?Daily Oxycodone (oxyCODONE 5 mg oral tablet)?10?Milligram?2?tablet?By Mouth?Every 6 hours?as needed?Take 1-2 tablets depending on severity of pain upto 4 times a day.?Pain , Severe Tizanidine (tiZANidine 2 mg oral tablet)?4?Milligram?2?tablet?By Mouth?Every 8 hours?as needed?as needed for muscle spasm ? Results Recent Labs BLOOD COUNT & DIFF WBC 9.9 k/mm3 ()?? 05/31/2023 13:51 RBC 3.23 m/mm3 (Low)?? 05/31/2023 13:51 Hgb 7.6 Gm/dL (Low)?? 05/31/2023 13:51 Hct 26.0 % (Low)?? 05/31/2023 13:51 MCV 80.5 femtoliters ()?? 05/31/2023 13:51 MCH 23.5 pg (Low)?? 05/31/2023 13:51 MCHC 29.2 g/dL (Low)?? 05/31/2023 13:51 Platelet Count 788 k/mm3 (High)?? 05/31/2023 13:51 RDW-SD 58.3 femtoliters (High)?? 05/31/2023 13:51 MPV 8.4 femtoliters (Low)?? 05/31/2023 13:51 Nucleated RBC (Automated) 0.0 #/100 WBC'S ()?? 05/31/2023 13:51 Abs. NRBC 0.0 k/mm3 ()?? 05/31/2023 13:51 Abs. Neut 7.2 k/mm3 (High)?? 05/31/2023 13:51 Abs. Lymph 1.8 k/mm3 ()?? 05/31/2023 13:51 Abs. [place] 0.7 k/mm3 ()?? 05/31/2023 13:51 Abs. Eo 0.1 k/mm3 ()?? 05/31/2023 13:51 Abs. Baso 0.0 k/mm3 ()?? 05/31/2023 13:51 Neut % 73.5 % ()?? 05/31/2023 13:51 Lymph % 18.4 % ()?? 05/31/2023 13:51 [place] % 6.6 % ()?? 05/31/2023 13:51 Eos % 1.0 % ()?? 05/31/2023 13:51 Baso % 0.3 % ()?? 05/31/2023 13:51 Imm Gran 0.2 % ()?? 05/31/2023 13:51 Abs. Imm Gran 0.0 k/mm3 ()?? 05/31/2023 13:51 ?? CHEM GENERAL Sodium 139 mmol/L ()?? 05/31/2023 14:00 Potassium 4.0 mmol/L ()?? 05/31/2023 14:00 Chloride 103 mmol/L ()?? 05/31/2023 14:00 Bicarbonate Level 28 mmol/L ()?? 05/31/2023 14:00 Anion Gap 8 ()?? 05/31/2023 14:00 Glucose Level 91 mg/dL ()?? 05/31/2023 14:00 BUN 15 mg/dL ()?? 05/31/2023 14:00 Creatinine-Blood 0.7 mg/dL ()?? 05/31/2023 14:00 Estimated GFR Creatinine 121 ML/MIN/1.73 M2 ()?? 05/31/2023 14:00 Calcium 8.7 mg/dL ()?? 05/31/2023 14:00 ?? HEME OTHER Hold Blue Top SPECIMEN DISCARDED AFTER 4 HOURS. ()?? 05/31/2023 14:00 ?? MISC. CHEMISTRY Hold Green Top SPECIMEN DISCARDED AFTER 1 WEEK ()?? 05/31/2023 14:00 ?? VIROLOGY Influenza A PCR NEGATIVE ()?? 05/31/2023 14:00 Influenza B PCR NEGATIVE ()?? 05/31/2023 14:00 RSV PCR NEGATIVE ()?? 05/31/2023 14:00 COVID-19 PCR Specimen Source NASAL ()?? 05/31/2023 14:00 COVID-19 PCR Result NEGATIVE ()?? 05/31/2023 14:00 ? Microbiology ?? COVID-19, RSV, and Flu A/B, Rapid PCR?? Completed?? Source: Nasopharyngeal Body Site: Nasopharyngeal Collected Dt/Tm: 05/31/2023 13:43 Last Updated Dt/Tm: 05/31/2023 15:27 ? Note * John PAGAN, Cruz D: PERFORM Event Display: Discharge/Transfer Note Hospital Authored Date: Patient: ??ERNESTO MCQUEEN ? Age:??37 Years?Sex:??Male?:??1985?? Patient Information Discharge Location: [facility] Primary Care Physician: Niki Li MD Admit Date/Time: 05/31/23 12:11 Discharge Disposition Discharge Disposition: AMA ?? Discharge Diagnosis Depression (F32.A) GERD (gastroesophageal reflux disease) (K21.9) Hypertension (I10) Iron deficiency anemia (D50.9) Mural thrombus of cardiac apex (I51.3) Peripheral neuropathy (G62.9) Spasticity (R25.2) Wound of buttock (S31.809A) History of ischemic stroke (Z86.73) Right spastic hemiparesis (G81.11) Chronic pain (G89.29) Acute pain (R52) Hidradenitis suppurativa (L73.2) ?? _ Discharge Medications Acitretin (acitretin 10 mg oral capsule)?TAKE 1 CAPSULE EVERY OTHER DAY FOR NEXT 2 WEEKS THEN 1 CAPSULE DAILY Amlodipine (amLODIPine 5 mg oral tablet)?1?tab(s)?By Mouth?Daily?for 30?Days apixaban (Eliquis 5 mg oral tablet)?1?tab(s)?By Mouth?2 times a day Baclofen (baclofen 20 mg oral tablet)?20?Milligram?1?tablet?By Mouth?4 times a day Clindamycin Topical (clindamycin 1% topical gel)?1?boyd?Topically?2 times a day Doxycycline (doxycycline hyclate 100 mg oral enteric coated tablet)?1?tab(s)?100?Milligram?By Mouth?2 times a day?for 10?week(s) Duloxetine (duloxetine 30 mg oral enteric coated capsule)?1?capsule?By Mouth?Daily Durable Medical Equipment (walker with platform attached)?See Instructions?Please dispense 1 (one) walker with attached platformHt: 187.6cmWt: 101.4kgDx: History of stroke - Z86.73, Right-sidedweakness - R53.1,Spasticity due to old stroke - I69.398Length of need: 99months Durable Medical Equipment (Right ankle & foot orthosis)?See Instructions?Please dispense 1 right ankle and foot othosisDx: R29.898, R26.81, M25.373Length of need: 99 monthsNumber to fax to:[phone] Durable Medical Equipment (3 in 1 commode)?See Instructions?use as needed to prevent fall. Diagnosis: Stroke, Impaired Mobility. ICD10 I63.9, ICDR26.2.KRISSY 99for PCP Tanja Fuchs to [facility] Durable Medical Equipment (transfer tub bench)?See Instructions?use as needed to prevent fall. Diagnosis: Stroke, Impaired Mobility. ICD10 I63.9, ICDR26.2.KRISSY 99for PCP Jacobo FuchsFax to [facility] Durable Medical Equipment (large gauze)?See Instructions?L73.2 HS Durable Medical Equipment (Diapers, adult extra Large)?See Instructions?2 per dayChronic drainage, bleeding of buttocks lesions due to severe hidradenitis L73.2Functional Incontinence R39.81 Please fax to [facility] [employer]urable Medical Equipment (CHUX)?See Instructions?2 per dayFunctional Incontinence R39.81 Durable Medical Equipment (Hospital bed)?See Instructions?Use as needed daily Durable Medical Equipment (Air Mattress)?See Instructions?Use daily to prevent progression ofpressure ulcer. Z86.73, L89.159. Fax to [facility] Ferrous Sulfate (ferrous sulfate 325 mg oral tablet)?1?tab(s)?325?Milligram?By Mouth?Daily?TAKE 1 TABLET BY MOUTH EVERY DAY NEEDED Fluoxetine (FLUoxetine 20 mg oral capsule)?1?capsule?By Mouth?Daily Folic Acid (folic acid 1 mg oral tablet)?1?Milligram?1?tablet?By Mouth?Daily?TAKE 1 TABLET BY MOUTH EVERY DAY THAT YOU ARE NOT TAKING METHOTREXATE Gabapentin (gabapentin 300 mg oral capsule)?300?Milligram?1?capsule?By Mouth?3 times a day Hydroxyurea (hydroxyurea 500 mg oral capsule)?1?capsule?500?Milligram?By Mouth?Daily Omeprazole (omeprazole 40 mg oral enteric coated capsule)?1?capsule?By Mouth?Daily Oxycodone (oxyCODONE 5 mg oral tablet)?10?Milligram?2?tablet?By Mouth?Every 6 hours?as needed?Take 1-2 tablets depending on severity of pain upto 4 times a day.?Pain , Severe Tizanidine (tiZANidine 2 mg oral tablet)?4?Milligram?2?tablet?By Mouth?Every 8 hours?as needed?as needed for muscle spasm ? Allergies Allergies ?(Active and Proposed Allergies Only) NKA? (Severity: Unknown severity, Onset: Unknown) ? Future Appointments Saturday 11:00 AM EST ?? With: Gilbert VARNER, Litzy Corbett Where: [place] [address]- Status: Pending Hospital Course 37-year-old??male with PMH of left ICA stroke with residual right-sided spastic hemiparesis (on baclofen) and dysarthria; mural thrombus of cardiac apex on Eliquis; severe hydradenitis suppurativa s/p excision of left buttock plastic surgery, follows with dermatology outpatient; PATY; thrombocytosis; chronic pain syndrome on oxycodone; HTN; depression;??presented with acute on chronic pain; being admitted under medicine service. ? When I went to see the patient??this morning patient had removed his IV lines??and requested for his wheelchair to be brought so that he can leave the hospital.?? Patient's brother was also at bedside.?per discussion patient reports of being unhappy overall??with his care??and therefore wants to leave??the hospital.?? Offered further discussion however patient uninterested??to discuss. ??Offered?? expediting his care and movement to a bed?? upstairs sooner ??however??patient refused to continue to stay. ??He agreed for capacity evaluation. ??Patient did have aphasia??from prior stroke??but was able to follow commands and answer questions appropriately sometimes??it needs to be return??on the paper??for him to answer accurately. ? Acute pain (R52):??- Chronic pain (G89.29):??-He will continue his home medications ?? Iron deficiency anemia (D50.9):??--Recently done iron studies showed TSAT 7%, serum iron 16, ferritin 39; normal folate and vitamin B12 levels. -Hemoglobin iron deficit??to achieve hemoglobin of 12,??1000 mg -He would likely benefit from IV iron if he presents to the hospital again. -Continue folic acid ?? Mural thrombus of cardiac apex (I51.3):??-??Continue home Eliquis ?? History of ischemic stroke (Z86.73):??- Right spastic hemiparesis (G81.11):??- Spasticity (R25.2):??-??Continue home scheduled baclofen; as needed tizanidine ?? Hypertension (I10):??-??Continue home amlodipine ?? Hidradenitis suppurativa (L73.2):??- Wound of buttock (S37.347N):??-Patient has upcoming appointment with [facility] to discuss surgical options, gets wound care in-house, during recent discharge, plan was to set up VNA care and wound care.??Patient was treated for fever and cellulitis, blood cultures were negative; was treated with initially vancomycin, discharged on Augmentin, completed Rx.? Peripheral neuropathy (G62.9):??-??Continue home gabapentin ?? GERD (gastroesophageal reflux disease) (K21.9):??-??Continue home PPI ?? Depression (F32.A):??-??Continue home fluoxetine, duloxetine ? Continue to stay however he chose to leave AGAINST MEDICAL ADVICE. ??Patient's brother was at bedside??counseled??and advised to return to the ER??he would like to??further care. Objective Assessment and Plan ? Vital Signs?? Temperature: 98.6 DegF (06/01/23 08:05:00) Temperature Route: Oral (06/01/23 08:05:00) Pulse Rate: 86 bpm (06/01/23 08:05:00) Respiratory Rate: 18 br/min (06/01/23 09:25:00) Systolic Blood Pressure: 122 mm Hg (06/01/23 08:05:00) Diastolic Blood Pressure: 76 mm Hg (06/01/23 08:05:00) Blood pressure sites: Arm, left (06/01/23 08:05:00) Mean Arterial Pressure: 91 mm Hg (06/01/23 08:05:00) Pulse Pressure: 46 mm Hg (06/01/23 08:05:00) Oxygen Saturation: 99 % (06/01/23 08:05:00) Mode of Delivery (Oxygen): Room air (06/01/23 08:05:00) Early Warning Score: 0 (06/01/23 10:03:38) ? . Physical Exam Patient refused detailed examination? during conversation patient had expressive aphasia.?? But was able to??correctly answer??them for return??with multiple-choice ??on service on the paper. Pending Results Wound Superficial Culture W/ Gram Smear ordered on 05/31/2023 Results Discharge Labs BLOOD COUNT & DIFF WBC 9.9 k/mm3 ()?? 05/31/2023 13:51 RBC 3.23 m/mm3 (Low)?? 05/31/2023 13:51 Hgb 7.6 Gm/dL (Low)?? 05/31/2023 13:51 Hct 26.0 % (Low)?? 05/31/2023 13:51 MCV 80.5 femtoliters ()?? 05/31/2023 13:51 MCH 23.5 pg (Low)?? 05/31/2023 13:51 MCHC 29.2 g/dL (Low)?? 05/31/2023 13:51 Platelet Count 788 k/mm3 (High)?? 05/31/2023 13:51 RDW-SD 58.3 femtoliters (High)?? 05/31/2023 13:51 MPV 8.4 femtoliters (Low)?? 05/31/2023 13:51 Nucleated RBC (Automated) 0.0 #/100 WBC'S ()?? 05/31/2023 13:51 Abs. NRBC 0.0 k/mm3 ()?? 05/31/2023 13:51 Abs. Neut 7.2 k/mm3 (High)?? 05/31/2023 13:51 Abs. Lymph 1.8 k/mm3 ()?? 05/31/2023 13:51 Abs. [place] 0.7 k/mm3 ()?? 05/31/2023 13:51 Abs. Eo 0.1 k/mm3 ()?? 05/31/2023 13:51 Abs. Baso 0.0 k/mm3 ()?? 05/31/2023 13:51 Neut % 73.5 % ()?? 05/31/2023 13:51 Lymph % 18.4 % ()?? 05/31/2023 13:51 [place] % 6.6 % ()?? 05/31/2023 13:51 Eos % 1.0 % ()?? 05/31/2023 13:51 Baso % 0.3 % ()?? 05/31/2023 13:51 Imm Gran 0.2 % ()?? 05/31/2023 13:51 Abs. Imm Gran 0.0 k/mm3 ()?? 05/31/2023 13:51 ?? CHEM GENERAL Sodium 139 mmol/L ()?? 05/31/2023 14:00 Potassium 4.0 mmol/L ()?? 05/31/2023 14:00 Chloride 103 mmol/L ()?? 05/31/2023 14:00 Bicarbonate Level 28 mmol/L ()?? 05/31/2023 14:00 Anion Gap 8 ()?? 05/31/2023 14:00 Glucose Level 91 mg/dL ()?? 05/31/2023 14:00 BUN 15 mg/dL ()?? 05/31/2023 14:00 Creatinine-Blood 0.7 mg/dL ()?? 05/31/2023 14:00 Estimated GFR Creatinine 121 ML/MIN/1.73 M2 ()?? 05/31/2023 14:00 Calcium 8.7 mg/dL ()?? 05/31/2023 14:00 ?? HEME OTHER Hold Blue Top SPECIMEN DISCARDED AFTER 4 HOURS. ()?? 05/31/2023 14:00 ? MISC. CHEMISTRY Hold Green Top SPECIMEN DISCARDED AFTER 1 WEEK ()?? 05/31/2023 14:00 ? URINE OTHER Est Creatinine Clearance 179.04 mL/min ()?? 06/01/2023 08:13 ? VIROLOGY Influenza A PCR NEGATIVE ()?? 05/31/2023 14:00 Influenza B PCR NEGATIVE ()?? 05/31/2023 14:00 RSV PCR NEGATIVE ()?? 05/31/2023 14:00 COVID-19 PCR Specimen Source NASAL ()?? 05/31/2023 14:00 COVID-19 PCR Result NEGATIVE ()?? 05/31/2023 14:00 ? Imaging(s) ?CT Pelvis W/ Contrast ?? 05/31/2023 18:14??by Justyn PAGAN, Ericka Lopez ?IMPRESSION: ?? No significant change in previously seen areas of marked skin thickening involving the right buttocks and upper posterior thigh. Recommend hematology consult and consider tissue biopsy to exclude lymphomatous involvement of the skin. ? 32 minutes spent on discharge Patient Care team information Care Team Personnel Name: Areli Pittman RN Position: [facility] ED RN W/OE and Tasks Member Role: Primary Care Nurse Name: Ally Boyd RN Position: S RN Member Role: Primary Care Nurse Name: Niki Li MD Position: S Physician - Primary Care Member Role: PCP Address: Address: [address] [place] [id number]- Name: Axel Savage RN Position: S RN Member Role: Primary Care Nurse Name: Filemon King RN Position: S RN Member Role: Primary Care Nurse Name: Lashawn Nagy RN Position: S RN Member Role: Primary Care Nurse Name: Glenys Fox RN Position: S RN Member Role: Primary Care Nurse Care Team Related Persons Name: JUHI BEVERLY Address: home [address] [place] [address] Name: AISLINN DE LA PAZ Address: home [address] [place] [address]
--- OUTSIDE RECORDS SUMMARY | 2024-01-21 19:28 | XMS_ITS | Continuity of Care Document ---
Author Organization [facility] Address [address] [place] [address]- Care Team Providers Care Flat Knitter Helper Name Role Phone Derek Tomas MD Primary Care Physician Encounter [facility] Date(s): 10/28/23 - 11/27/[address] [address]- Allergies, Adverse Reactions, Alerts No Known Allergies Immunizations Given and Recorded Vaccine Date Status Refusal Reason influenza virus vaccine, inactivated 05/18/22 Give n tetanus/diphtheria/pertussis, acel(Tdap) 09/13/19 Recorded Medications acetaminophen 500 mg oral tablet 2 tablet = 1,000 mg, By Mouth, 3 times a day, PRN for pain, # 100 tablet, 6 Refills, Acute 05/12/2415:40:00 EST, 10/25/23 15:40:00 EDT, Tablet, [facility]/pharmacy #[id number], Partial fill upon patient request if the prescription is for a schedule II opioid drug... Start Date: 10/25/23 Stop Date: 05/12/24 Status: Ordered amLODIPine 5 mg oral tablet 5 mg, 1, tablet, By Mouth, Daily, # 30 tablet, Refills 0, Tot. Refills 0, Maintenance, 06/17/23 8:53:00 EST, Route to Pharmacy Electronically, [facility], Partial fill upon patient [...] 08/06/23 9:00:00 EDT, Route to Pharmacy Electronically, [facility]/pharmacy #[id number], 182, cm, 07/26/23 9:16:00 EDT, Height, 89, kg, 07/03/23 11:22:00 EST, Dry Weight Start Date: 08/06/23 Status: Ordered clindamycin 1% topical gel APPLY TO AFFECTED AREA TOPICALLY TWICE A DAY Start Date: 11/17/23 Status: Ordered docusate sodium 100 mg oral capsule 1 capsule, By Mouth, 2 times a day, # 60 capsule, 11 Refills, Maintenance, 09/03/23 17:44:00 EDT, [id number], 193, cm, 09/03/23 14:09:00 EDT, Height, 91.4, kg, 08/30/23 12:03:00 EDT, Dry Weight Start Date: 09/03/23 Status: Ordered duloxetine 30 mg oral enteric coated capsule 1 capsule = 30 mg, By Mouth, 2 times a day, TAKE 1 CAPSULE BY MOUTH EVERY DAY, # 60 capsule, 6 Refills, Maintenance, 10/25/23 15:39:00 EDT, Capsule, [facility]/pharmacy #[id number], Partial fill upon patient request if the prescription is for a schedule II opioid... Start Date: 10/25/23 Stop Date: 05/22/24 Status: Ordered Eliquis 5 mg oral tablet 1 tablet = 5 mg, By Mouth, 2 times a day, Maintenance, 09/21/23 10:38:00 EDT, Partial fill upon patient request if the prescription is for a schedule II opioid drug. Start Date: 09/21/23 Status: Ordered ferrous sulfate 325 mg oral tablet 1 tablet, By Mouth, 2 times a day, # 180 tablet, 0 Refills, Maintenance, 10/16/23 15:51:00 EDT, [id number], 193, cm, 10/04/23 3:49:00 EDT, Height, 90.4, kg, 10/07/23 21:33:00 EDT, Dry Weight Start Date: 10/16/23 Status: Ordered folic acid 1 mg oral [...] tablet, 11 Refills, Maintenance, 08/12/23 13:51:00EDT, Tablet, [facility]/pharmacy #[id number], Partial fill upon patient request if the prescription is for a schedule II opioid drug., 182, cm, 07/26/23 9:16:00 EDT... Start Date: 08/12/23 Status: Ordered hydroxyurea 500 mg oral capsule TAKE 1 CAPSULE BY MOUTH EVERY DAY Start Date: 11/17/23 Status: Ordered Ilaris 150 mg/mL subcutaneous solution = 150 mg, Subcutaneous Injection, Every 28 days, 0 Refills, Maintenance, 11/17/23 4:39:00 EDT, Partial fill upon patient request if the prescription is for a schedule II opioid drug. Start Date: 11/17/23 Status: Ordered Narcan 4 mg/0.1 mL nasal [...] tablet = 30 mg, By Mouth, Every 6 hours, PRN Pain , Moderate, for 28 days, for moderate to severepain, # 112 tablet, 0 Refills, Acute 12/24/23 13:33:00 EDT, 11/26/23 13:33:00 EDT, Tablet, [facility]/pharmacy #[id number], Partial fill upon patient request if the... Start Date: 11/26/23 Stop Date: 12/24/23 Status: Ordered pantoprazole 40 mg oral delayed release tablet 1 tablet, By Mouth, Daily, # 30 tablet, 2 Refills, Maintenance, 10/14/23 12:04:00 EDT, 193, cm, 10/04/23 3:49:00 EDT, Height, 90.4, kg, 10/07/23 21:33:00 EDT, Dry Weight Start Date: 10/14/23 Status: Ordered tiZANidine 2 mg oral tablet 4 mg, 2, tablet, By Mouth, Every 8 hours, PRN, # 180 tablet, Refills 11, Tot. Refills 11, Maintenance, as needed for muscle spasm, 08/12/23 13:51:00 EDT, Route to Pharmacy Electronically, [facility]/pharmacy #[id number], Partial fill upon patient request if the [...] 0 Refills, Maintenance, 07/16/23 10:05:00 EST, Tablet, [facility], Partial fill upon patient request if the prescription is for a schedule II opioid drug., 182, cm, 07/04/23 14:56:00 EST,... Start Date: 07/16/23 Status: Ordered Problem List Condition Confirmation Course Effective Dates Status H ealth Status Informant Chronic ischemic left ICA stroke Confirmed [...] 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 Therapeutic drug monitoring Confirmed Active Peripheral neuropathy Confirmed Active Right spastic hemiparesis Confirmed Active Spasticity Confirmed Active Thrombocytosis Confirmed Active Tobacco dependence Confirmed Active Social History Social History Type Response Smoking Status 5-9 cigarettes (betw een 1/4 to 1/2 pack)/day in last 30 days entered on: 05/16/22 Sex Patient Care team information Care Team Personnel Name: Anu Lipscomb RN Position: [facility] RN Member Role: Primary Care Nurse Name: Jeanne Bryant RN Position: [facility] RN Member Role: Primary Care Nurse Name: Mitch Guido RN Position: [facility] RN Member Role: Primary Care Nurse Name: Areli Pittman RN Position: [facility] ED RN W/OE and Tasks Member Role: Primary Care Nurse Name: Derek Tomas MD Position: [facility] Resident Member Role: PCP Address: Address: [address] [place] [address] Name: Mari Suh RN Position: [facility] RN Member Role: Primary Care Nurse Name: Monique Irwin LPN Position: [facility] RN Member Role: Primary Care Nurse Name: Lianna Epstein RN Position: [facility] RN Member Role: Primary Care Nurse Name: Austin Wright RN Position: [facility] RN Member Role: Primary Care Nurse Name: Mk Knutson LPN Position: [facility] RN Member Role: Primary Care Nurse Name: Betty Fonseca RN Position: [facility] RN Member Role: Primary Care Nurse Name: Farhana Garcia RN Position: [facility] RN Member Role: Primary Care Nurse Name: Kenyatta Villegas RN Position: [facility] RN Member Role: Primary Care Nurse Name: Albertina Adams RN Position: [facility] RN Member Role: Primary Care Nurse Name: Ricardo Russell RN Position: [facility] RN Member Role: Primary Care Nurse Name: Gissell Jernigan RN Position: [facility] RN Member Role: Primary Care Nurse Name: Farhana Green RN Position: [facility] RN Member Role: Primary Care Nurse Name: Cydney Delgado RN Position: [facility] RN Member Role: Primary Care Nurse Name: Debbie Rios RN Position: [facility] RN Member Role: Primary Care Nurse Name: Sharon Mendez RN Position: [facility] RN Member Role: Primary Care Nurse Name: Mookie Christianson RN Position: [facility] RN Member Role: Primary Care Nurse Name: Ally Boyd RN Position: [facility] RN Member Role: Primary Care Nurse Name: Javed Oneill RN Position: [facility] RN Member Role: Primary Care Nurse Name: Frances Quach RN Position: [facility] RN Member Role: Primary Care Nurse Name: Sandie Mejia RN Position: [facility] RN Member Role: Primary Care Nurse Name: Kriss Castillo RN Position: [facility] RN Member Role: Primary Care Nurse Name: Lynn Stewart RN Position: [facility] RN Member Role: Primary Care Nurse Name: Amanda Johnson RN Position: [facility] RN Member Role: Primary Care Nurse Name: Jolie Villalobos RN Position: [facility] RN Member Role: Primary Care Nurse Name: Axel Savage RN Position: [facility] RN Member Role: Primary Care Nurse Name: Dirk Driver RN Position: [facility] RN Member Role: Primary Care Nurse Name: Glenys Bee RN Position: [facility] RN Member Role: Primary Care Nurse Name: Praveen Maurer RN Position: [facility] RN Member Role: Primary Care Nurse Name: Filemon King RN Position: [facility] RN Member Role: Primary Care Nurse Name: Gomez Corona RN Position: [facility] RN Member Role: Primary Care Nurse Name: Lauren Guevara RN Position: [facility] RN Member Role: Primary Care Nurse Name: Annamaria Quinn RN Position: [facility] RN Member Role: Primary Care Nurse Name: Lashawn Nagy RN Position: [facility] RN Member Role: Primary Care Nurse Name: Rhonda Tate LPN Position: [facility] RN Member Role: Primary Care Nurse Name: Jacquelin Naranjo RN Position: [facility] RN Member Role: Primary Care Nurse Name: Glenys Fox RN Position: [facility] RN Member Role: Primary Care Nurse Name: Reilly Moreno RN Position: [facility] RN Member Role: Primary Care Nurse Care Team Related Persons Name: BEVERLY REYNAGA Address: [address] [place] [address] Name: HEENA MCQUEEN Address: [address] [place] [address] Name: AISLINN DE LA PAZ Address: [address] [address]
--- OUTSIDE RECORDS SUMMARY | 2024-01-21 19:28 | XMS_ITS | Continuity of Care Document ---
Author Organization [facility] Address [address] [place] [address]- Care Team Providers Care Tombstone Erector Name Role Phone Genoveva PAGAN, Derek Primary Care Physician Encounter [facility] [place] Date(s): 07/05/23 - 08/04/[address] [address]- Allergies, Adverse Reactions, Alerts No Known Allergies Immunizations Given and Recorded Vaccine Date Status Refusal Reason influenza virus vaccine, inactivated 05/18/22 Give n tetanus/diphtheria/pertussis, acel(Tdap) 09/13/19 Recorded Medications acetaminophen 325 mg oral tablet 975 mg, By Mouth, 3 times a day, Can use over the counter Tylenol or substitute, Refills 0, Maintenance, 06/17/23 8:54:00 EST, Partial fill upon patient request if the prescription is for a schedule II opioid drug. Start Date: 06/17/23 Status: Ordered amLODIPine 5 mg oral tablet 5 mg, 1, tablet, By Mouth, Daily, # 30 tablet, Refills 0, Tot. Refills 0, Maintenance, 06/17/23 8:53:00 EST, Route to Pharmacy Electronically, [facility], Partial fill upon patient request if the prescription is for a schedule II opioid... Start Date: 06/17/23 Status: Ordered baclofen 20 mg oral tablet 20 mg, 1, tablet, By Mouth, 4 times a day, # 120 tablet, Refills 0, Tot. Refills 0, Maintenance, 06/03/23 13:25:00 EST, Route to Pharmacy Electronically, [facility], 193, cm, 06/01/23 9:54:00 EST, Height, 90.9, kg, 06/01/23 9:54:00 EST,... Start Date: 06/03/23 Status: Ordered docusate sodium 100 mg oral capsule 100 mg, 1, capsule, By Mouth, 2 times a day, # 60 capsule, Refills 0, Tot. Refills 0, Maintenance, 07/16/23 9:51:00 EST, Route to Pharmacy Electronically, [facility], Partial fill upon patient request if the prescription is for a schedul... Start Date: 07/16/23 Status: Ordered duloxetine 30 mg oral enteric coated capsule 2 capsule = 60 mg, By Mouth, Daily, # 60 capsule, 0 Refills, Maintenance, 07/16/23 9:56:00 EST, [facility], 182, cm, 07/04/23 14:56:00 EST, Height, 89, kg, 07/03/23 11:22:00 EST, Dry Weight Start Date: 07/16/23 Status: Ordered Eliquis 5 mg oral tablet See Instructions, TAKE 1 TABLET BY MOUTH TWICE A DAY, # 60 tablet, 11 Refills, Maintenance, 06/12/23 6:31:00 EST, [id number], 193, cm, 06/01/23 9:54:00 EST, Height, 90.9, kg, 06/01/23 9:54:00 EST, Dry Weight Start Date: 06/12/23 Status: Ordered ferrous sulfate 325 mg oral tablet 1 tablet = 325 mg, By Mouth, Daily, TAKE 1 TABLET BY MOUTH EVERY DAY, # 30 tablet, 0 Refills, Maintenance, 06/12/23 6:46:00 EST, Tablet, [facility]/pharmacy #[id number], Partial fill upon patient request if the prescription is for a schedule II opioid drug., 193,... Start Date: 06/12/23 Status: Ordered folic acid 1 mg oral tablet 1 mg, 1, tablet, By Mouth, Daily, TAKE 1 TABLET BY MOUTH EVERY DAY THAT YOU ARE NOT TAKING METHOTREXATE, # 30 tablet, Refills 0, Tot. Refills 0, Maintenance, 06/12/23 6:46:00 EST, Route to Pharmacy Electronically, [facility]/pharmacy #[id number], Partial fill upon... Start Date: 06/12/23 Status: Ordered gabapentin 600 mg oral tablet 1 tablet = 600 mg, By Mouth, 3 times a day, # 90 tablet, 0 Refills, Maintenance, 06/21/23 12:34:00 EST, Tablet, [facility]/pharmacy #[id number], Partial fill upon patient request if the prescription is for a schedule II opioid drug., 190, cm, 06/21/23 11:49:00 EST... Start Date: 06/21/23 Stop Date: 07/21/23 Status: Ordered hydroxyurea 500 mg oral capsule = 500 mg, By Mouth, Daily, for 30 days, # 30 capsule, 2 Refills, Acute 10/18/23 14:36:00 EDT, 07/20/23 14:36:00 EST, Capsule, [facility]/pharmacy #[id number], Partial fill upon patient request if the prescriptionis for a schedule II opioid drug., 182, cm, ... Start Date: 07/20/23 Stop Date: 10/18/23 Status: Ordered omeprazole 40 mg oral enteric coated capsule 1 capsule, By Mouth, Daily, # 30 capsule, 5 Refills, Maintenance, 08/13/22 15:28:00 EDT, [facility]/pharmacy #[id number], 193.04, cm, 07/23/22 14:07:00 EDT, Height, 99.6, kg, 06/06/22 18:00:00 EST, Dry Weight Start Date: 08/13/22 Status: Ordered tiZANidine 2 mg oral tablet 4 mg, 2, tablet, By Mouth, Every 8 hours, PRN, # 90 tablet, Refills 0, Tot. Refills 0, Maintenance,as needed for muscle spasm, 06/21/23 12:37:00 EST, Route to Pharmacy Electronically, [facility]/pharmacy #[id number], Partial fill upon patient request if the presc... Start Date: 06/21/23 Status: Ordered Vitamin D3 1000 intl units oral tablet 1 tablet = 25 mcg, By Mouth, Daily, # 30 tablet, 0 Refills, Maintenance, 07/16/23 10:05:00 EST, Tablet, [facility], Partial fill upon patient request if [...] apex Confirmed Active N CP Care Management, Wedding Consultant Carmen Elizabeth [phone] Confirmed Active Therapeutic drug monitoring Confirmed Active Peripheral neuropathy Confirmed Active Right spastic hemiparesis Confirmed Active Spasticity Confirmed Active Tobacco dependence Confirmed Active Social History Social History Type Response Smoking Status 5-9 cigarettes (betw een 1/4 to 1/2 pack)/day in last 30 days entered on: 05/16/22 Sex Patient Care team information Care Team Personnel Name: Anu Lipscomb Position: [facility] RN Member Role: Primary Care Nurse Name: Areli Pittman RN Position: [facility] ED RN W/OE and Tasks Member Role: Primary Care Nurse Name: Derek Tomas MD Position: [facility] Resident Member Role: PCP Address: Address: [address] [place] [address] Name: Farhana Garcia RN Position: [facility] RN Member Role: Primary Care Nurse Name: Farhana Green RN Position: [facility] RN Member Role: Primary Care Nurse Name: Ally Boyd RN Position: [facility] RN Member Role: Primary Care Nurse Name: Javed Oneill RN Position: [facility] RN Member Role: Primary Care Nurse Name: Lynn Stewart RN Position: [facility] RN Member Role: Primary Care Nurse Name: Jolie Villalobos RN Position: [facility] RN Member Role: Primary Care Nurse Name: Axel Savage RN Position: [facility] RN Member Role: Primary Care Nurse Name: Glenys Bee RN Position: [facility] RN Member Role: Primary Care Nurse Name: Filemon King RN Position: [facility] RN Member Role: Primary Care Nurse Name: Lauren Guevara RN Position: [facility] RN Member Role: Primary Care Nurse Name: Lashawn Nagy RN Position: [facility] RN Member Role: Primary Care Nurse Name: Glenys Fox RN Position: [facility] RN Member Role: Primary Care Nurse Care Team Related Persons Name: BEVERLY REYNAGA Address: [place] [address] Name: AISLINN DE LA PAZ Address: [address] [place] [address]
--- OUTSIDE RECORDS SUMMARY | 2024-01-21 19:28 | XMS_ITS | Continuity of Care Document ---
Author Organization [facility] Address [address] [place] [address]- Care Team Providers Care Radial Drill Operator For Plastic Name Role Phone Genovvea PAGAN, Derek Primary Care Physician Encounter [facility] [place] Date(s): 08/26/23 - 09/25/[address] [address]- Allergies, Adverse Reactions, Alerts No Known Allergies Immunizations Given and Recorded Vaccine Date Status Refusal Reason influenza virus vaccine, inactivated 05/18/22 Give n tetanus/diphtheria/pertussis, acel(Tdap) 09/13/19 Recorded Medications amLODIPine 5 mg oral tablet 5 mg, 1, tablet, By Mouth, Daily, # 30 tablet, Refills 0, Tot. Refills 0, Maintenance, 06/17/23 8:53:00 EST, Route to Pharmacy Electronically, [facility], Partial fill upon patient request if the prescription is for a schedule II opioid... Start Date: 06/17/23 Status: Ordered ascorbic acid 500 mg oral tablet 1 tablet = 500 mg, By Mouth, Daily, # 30 tablet, 0 Refills, Maintenance, 09/06/23 12:42:00 EDT, Tablet, [facility]/pharmacy #[id number], Partial fill upon patient request if the prescription is for a schedule II opioid drug., 193, cm, 09/05/23 19:48:00 EDT, Height... Start Date: 09/06/23 Status: Ordered baclofen 20 mg oral tablet 20 mg, 1, tablet, By Mouth, 4 times a day, # 120 tablet, Refills 5, Tot. Refills 5, Maintenance, 08/06/23 9:00:00 EDT, Route to Pharmacy Electronically, [facility]/pharmacy #[id number], 182, cm, 07/26/23 9:16:00 EDT, Height, 89, kg, 07/03/23 11:22:00 EST, Dry Weight Start Date: 08/06/23 Status: Ordered docusate sodium 100 mg oral capsule 1 capsule, By Mouth, 2 times a day, # 60 capsule, 11 Refills, Maintenance, 09/03/23 17:44:00 EDT, [id number], 193, cm, 09/03/23 14:09:00 EDT, Height, 91.4, kg, 08/30/23 12:03:00 EDT, Dry Weight Start Date: 09/03/23 Status: Ordered duloxetine 30 mg oral enteric coated capsule 1 capsule = 30 mg, By Mouth, Daily, TAKE 1 CAPSULE BY MOUTH EVERY DAY, # 30 capsule, 6 Refills, Maintenance, 09/03/23 17:47:00 EDT, Capsule, [facility]/pharmacy #[id number], Partial [...] tablet, 11 Refills, Maintenance, 08/12/23 13:51:00EDT, Tablet, [facility]/pharmacy #[id number], Partial fill upon patient request if the prescription is for a schedule II opioid drug., 182, cm, 07/26/23 9:16:00 EDT... Start Date: 08/12/23 Status: Ordered hydroxyurea 500 mg oral capsule = 500 mg, By Mouth, Daily, for 30 days, # 30 capsule, 2 Refills, Acute 10/18/23 14:36:00 EDT, 07/20/23 14:36:00 EST, Capsule, [facility]/pharmacy #[id number], Partial fill upon patient request if the prescriptionis for a schedule II opioid drug., 182, cm, ... Start Date: 07/20/23 Stop Date: 10/18/23 Status: Ordered MiraLax oral powder for reconstitution = 17 Gm, By Mouth, Daily, PRN Constipation, for 30 days, # 30 each, 0 Refills, Acute 10/06/23 12:41:00 EDT, 09/06/23 12:41:00 EDT, REC Powder, [facility]/pharmacy #[id number], Partial fill upon patient request ifthe prescription is for a schedule II opioid drug.,... Start Date: 09/06/23 Stop Date: 10/06/23 Status: Ordered Narcan 4 mg/0.1 mL nasal spray 1 sprays = 4 mg, Nares, Both, Once, To be used use one spray in one nostril. if an additional dose is needed, alternate nostril. may repeat every 2 to 3 minutes until patient responds, # 2 each, 0 Refills, Soft Stop, 08/23/23 15:54:00 EDT, [facility]... Start Date: 08/23/23 Status: Ordered oxyCODONE 20 mg oral tablet 1 tablet = 20 mg, By Mouth, Every 6 hours, PRN as needed for pain, for 3 days, # 12 tablet, 0 Refills, Acute 09/27/23 9:42:00 EDT, 09/24/23 9:42:00 EDT, Tablet, [facility], Partial fillupon patient request if the prescription is for a s... 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 Carmen Elizabeth [phone] Confirmed Active Therapeutic drug monitoring Confirmed Active Peripheral neuropathy Confirmed Active Right spastic hemiparesis Confirmed Active Spasticity Confirmed Active Tobacco dependence Confirmed Active Social History Social History Type Response Smoking Status 5-9 cigarettes (betw een 1/4 to 1/2 pack)/day in last 30 days entered on: 05/16/22 Sex Patient Care team information Care Team Personnel Name: Anu Lipscomb Position: [facility] RN Member Role: Primary Care Nurse Name: Jeanne Bryant RN Position: [facility] RN Member Role: Primary Care Nurse Name: Areli Pittman RN Position: [facility] ED RN W/OE and Tasks Member Role: Primary Care Nurse Name: Derek Tomas MD Position: [facility] Resident Member Role: PCP Address: Address: [address] [place] [address] Name: Monique Irwin LPN Position: [facility] RN Member Role: Primary Care Nurse Name: Lianna Epstein RN Position: [facility] RN Member Role: Primary Care Nurse Name: Vicenta Barnett RN Position: [facility] RN Member Role: Primary Care Nurse Name: Farhana Garcia RN Position: [facility] RN Member Role: Primary Care Nurse Name: Ricardo Russell RN Position: [facility] RN Member Role: Primary Care Nurse Name: Gissell Jernigan RN Position: [facility] RN Member Role: Primary Care Nurse Name: Farhana Green RN Position: [facility] RN Member Role: Primary Care Nurse Name: Cydney Delgado RN Position: [facility] RN Member Role: Primary Care Nurse Name: Sharon Mendez RN Position: [facility] RN Member Role: Primary Care Nurse Name: Mookie Christianson RN Position: [facility] RN Member Role: Primary Care Nurse Name: Ally Boyd RN Position: [facility] RN Member Role: Primary Care Nurse Name: Javed Oneill RN Position: [facility] RN Member Role: Primary Care Nurse Name: Lynn Stewart RN Position: [facility] RN Member Role: Primary Care Nurse Name: Amanda Johnson RN Position: [facility] RN Member Role: Primary Care Nurse Name: Jolie Villalobos RN Position: [facility] RN Member Role: Primary Care Nurse Name: Axel Savage RN Position: [facility] RN Member Role: Primary Care Nurse Name: Dirk Driver RN Position: [facility] RN Member Role: Primary Care Nurse Name: Glenys Bee RN Position: [facility] RN Member Role: Primary Care Nurse Name: Praveen Maurer Position: [facility] RN Member Role: Primary Care Nurse Name: Filemon King RN Position: [facility] RN Member Role: Primary Care Nurse Name: Lauren Guevara RN Position: [facility] RN Member Role: Primary Care Nurse Name: Annamaria Quinn RN Position: [facility] RN Member Role: Primary Care Nurse Name: Jada Waller RN Position: [facility] RN Member Role: Primary Care Nurse Name: Lashawn Nagy RN Position: [facility] RN Member Role: Primary Care Nurse Name: Jacquelin Naranjo RN Position: [facility] RN Member Role: Primary Care Nurse Name: Glenys Fox RN Position: [facility] RN Member Role: Primary Care Nurse Care Team Related Persons Name: JUHI BEVERLY Address: [place] [address] Name: AISLINN DE LA PAZ Address: home [address] [place] [address]
--- OUTSIDE RECORDS SUMMARY | 2024-01-21 19:28 | XMS_ITS | Continuity of Care Document ---
Author Organization [facility] Address [address] [place] [address]- Care Team Providers Care Director Hedis Name Role Phone Derek Tomas MD Primary Care Physician [place] [facility] [place](s[place] 06/06/23 - 07/06/[address] [address]- Allergies, Adverse Reactions, Alerts No Known Allergies [...] opioid drug. Start Date: 06/17/23 Status: Ordered acitretin 10 mg oral capsule TAKE 1 1 CAPSULE DAILY Start Date: 05/17/22 Status: Ordered amLODIPine 5 mg oral tablet 5 mg, 1, tablet, By Mouth, Daily, # 30 tablet, Refills 0, Tot. Refills 0, Maintenance, 06/17/23 8:53:00 EST, Route to Pharmacy Electronically, [facility], Partial fill upon patient request if the prescription is for a schedule II opioid... Start Date: 06/17/23 Status: Ordered baclofen 20 mg oral tablet 20 mg, 1, tablet, By Mouth, 4 times a day, # 120 tablet, Refills 0, Tot. Refills 0, Maintenance, 06/03/23 13:25:00 EST, Route to Pharmacy Electronically, [facility], 193, cm, 06/01/23 9:54:00 EST, Height, 90.9, kg, 06/01/23 9:54:00 EST,... Start Date: 06/03/23 Status: Ordered duloxetine 30 mg oral enteric coated capsule 1 capsule, By Mouth, Daily, # 30 capsule, 5 Refills, Maintenance, 06/12/23 6:45:00 EST, [facility]acy #[id number], 193, cm, 06/01/23 9:54:00 EST, Height, 90.9, kg, 06/01/23 9:54:00 EST, Dry Weight Start Date: 06/12/23 Status: Ordered Eliquis 5 mg oral tablet See Instructions, TAKE 1 TABLET BY MOUTH TWICE A DAY, # 60 tablet, 11 Refills, Maintenance, 06/12/23 6:31:00 EST, [facility] [id number], 193, cm, 06/01/23 9:54:00 EST, Height, 90.9, kg, 06/01/23 9:54:00 EST, Dry Weight Start Date: 06/12/23 Status: Ordered ferrous sulfate 325 mg oral tablet 1 tablet = 325 mg, By Mouth, Daily, TAKE 1 TABLET BY MOUTH EVERY DAY, # 30 tablet, 0 Refills, Maintenance, 06/12/23 6:46:00 EST, Tablet, [facility]/pharmacy #[id number], Partial fill upon patient request if [...] 06/12/23 6:46:00 EST, Route to Pharmacy Electronically, [facility]/pharmacy #[id number], Partial fill upon... Start Date: 06/12/23 Status: Ordered gabapentin 600 mg oral tablet 1 tablet = 600 mg, By Mouth, 3 times a day, # 90 tablet, 0 Refills, Maintenance, 06/21/23 12:34:00 EST, Tablet, [facility]acy #[id number], Partial fill upon patient request if the prescription is for a schedule II opioid drug., 190, cm, 06/21/23 11:49:00 EST... Start Date: 06/21/23 Stop Date: 07/21/23 Status: Ordered hydroxyurea 500 mg oral capsule = 500 mg, By Mouth, Daily, 0 Refills, Maintenance, 06/17/23 8:53:00 EST, Capsule, Partial fill uponpatient request if the prescription is for a schedule II opioid drug. Start Date: 06/17/23 Status: Ordered omeprazole 40 mg oral enteric coated capsule 1 capsule, By Mouth, Daily, # 30 capsule, 5 Refills, Maintenance, 08/13/22 15:28:00 EDT, [facility]/pharmacy #[id number], 193.04, cm, 07/23/22 14:07:00 EDT, Height, 99.6, kg, 06/06/22 18:00:00 EST, Dry Weight Start Date: 08/13/22 Status: Ordered oxyCODONE 10 mg oral tablet 1 tablet = 10 mg, By Mouth, Every 6 hours, PRN as needed for pain, 0 Refills, Maintenance, 07/05/2420:58:00 EST, Tablet, Partial fill upon patient request if the prescription is for a schedule II opioid drug. Start Date: 07/05/23 Status: Ordered tiZANidine 2 mg oral tablet 4 mg, 2, tablet, By Mouth, Every 8 hours, PRN, # 90 tablet, Refills 0, Tot. Refills 0, Maintenance,as needed for muscle spasm, 06/21/23 12:37:00 EST, Route to Pharmacy Electronically, [facility]acy #[id number], Partial fill upon patient request if the presc... Start Date: 06/21/23 Status: Ordered Problem List Condition Confirmation Course [...] apex Confirmed Active [facility] CP Care Management, Litigation Attorney Carmen Elizabeth [phone] Confirmed Active Therapeutic drug monitoring Confirmed Active [...] Care Nurse Name: Areli Pittman RN Position: [facility] ED RN W/OE and Tasks Member Role: Primary Care Nurse Name: Derek Tomas MD Position: S Resident Member Role: PCP Address: Address: [address] [place] [address] Name: Farhana Green RN Position: S RN Member Role: Primary Care Nurse Name: Ally Boyd RN Position: S RN Member Role: Primary Care Nurse Name: Lynn Stewart RN Position: [facility] RN Member Role: Primary Care Nurse Name: Jolie Villalobos RN Position: [facility] RN Member Role: Primary Care Nurse Name: Axel Savage RN Position: S RN Member Role: Primary Care Nurse Name: Glenys Bee RN Position: S RN Member Role: Primary Care Nurse Name: Filemon King RN Position: [facility] RN Member Role: Primary Care Nurse Name: Lauren Guevara RN Position: [facility] RN Member Role: Primary Care Nurse Name: Lashawn Nagy RN Position: [facility] RN Member Role: Primary Care Nurse Name: Glenys Fox RN Position: S RN Member Role: Primary Care Nurse Care Team Related Persons Name: BEVERLY REYNAGA Address: [place] [address] Name: AISLINN DE LA PAZ Address: [address] [place] [address]
--- OUTSIDE RECORDS SUMMARY | 2024-01-21 19:28 | XMS_ITS | Continuity of Care Document ---
Author Organization [facility] Address [address] [place] [address]- Care Team Providers Care Churner Name Role Phone Genoveva PAGAN, Derek Primary Care Physician Encounter [facility] Date(s): 08/13/23 - 09/12/[address] [address]- Allergies, Adverse Reactions, Alerts No Known Allergies [...] 06/17/23 8:53:00 EST, Route to Pharmacy Electronically, [facility], Partial fill upon patient request if the prescription is for a schedule II opioid... Start Date: 06/17/23 Status: Ordered ascorbic acid 500 mg oral tablet 1 tablet = 500 mg, By Mouth, Daily, # 30 tablet, 0 Refills, Maintenance, 09/06/23 12:42:00 EDT, Tablet, [facility]/pharmacy #[id number], Partial fill upon patient request if the prescription is for a schedule II opioid drug., 193, cm, 09/05/23 19:48:00 EDT, Height... Start Date: 09/06/23 Status: Ordered baclofen 20 mg oral tablet 20 mg, 1, tablet, By Mouth, 4 times a day, # 120 tablet, Refills 5, Tot. Refills 5, Maintenance, 08/06/23 9:00:00 EDT, Route to Pharmacy Electronically, [facility]/pharmacy #[id number], 182, cm, 07/26/23 9:16:00 EDT, Height, 89, kg, 07/03/23 11:22:00 EST, Dry Weight Start Date: 08/06/23 Status: Ordered docusate sodium 100 mg oral capsule 1 capsule, By Mouth, 2 times a day, # 60 capsule, 11 Refills, Maintenance, 09/03/23 17:44:00 EDT, [id number], 193, cm, 09/03/23 14:09:00 EDT, Height, 91.4, kg, 08/30/23 12:03:00 EDT, Dry Weight Start Date: 09/03/23 Status: Ordered duloxetine 30 mg oral enteric coated capsule 1 capsule = 30 mg, By Mouth, Daily, TAKE 1 CAPSULE BY MOUTH EVERY DAY, # 30 capsule, 6 Refills, Maintenance, 09/03/23 17:47:00 EDT, Capsule, [facility]/pharmacy #[id number], Partial fill upon patient request if the prescription is for a schedule II opioid drug., 1... Start Date: 09/03/23 Stop Date: 03/31/24 Status: Ordered Eliquis 5 mg oral tablet See Instructions, TAKE 1 TABLET BY MOUTH TWICE A DAY, # 60 tablet, 11 Refills, Maintenance, 06/12/23 6:31:00 EST, [id number], 193, cm, 06/01/23 9:54:00 EST, Height, 90.9, kg, 06/01/23 9:54:00 EST, Dry Weight Start Date: 06/12/23 Status: Ordered ferrous sulfate 325 mg oral tablet 1 tablet = 325 mg, By Mouth, 2 times a day, TAKE 1 TABLET BY MOUTH EVERY DAY, # 180 tablet, 0 Refills, Maintenance, 08/14/23 12:47:00 EDT, Tablet, [facility]/pharmacy #[id number], Partial fill upon patient request if the prescription is for a schedule II opioid dr... Start Date: 08/14/23 Stop Date: 11/12/23 Status: Ordered folic acid 1 mg oral tablet 1 mg, 1, tablet, By Mouth, Daily, TAKE 1 TABLET BY MOUTH EVERY DAY THAT YOU ARE NOT TAKING METHOTREXATE, # 30 tablet, Refills 0, Tot. Refills 0, Maintenance, 06/12/23 6:46:00 EST, Route to Pharmacy Electronically, [facility]/pharmacy #[id number], Partial fill upon... Start Date: 06/12/23 Status: Ordered gabapentin 600 mg oral tablet 1 tablet = 600 mg, By Mouth, 3 times a day, # 90 tablet, 11 Refills, Maintenance, 08/12/23 13:51:00EDT, Tablet, [facility]/pharmacy #[id number], Partial fill upon patient request if the prescription is for a schedule II opioid drug., frank Mitchell, 07/26/23 9:16:00 EDT... Start Date: 08/12/23 Status: Ordered hydroxyurea 500 mg oral capsule = 500 mg, By Mouth, Daily, for 30 days, # 30 capsule, 2 Refills, Acute 10/18/23 14:36:00 EDT, 07/20/23 14:36:00 EST, Capsule, [facility]/pharmacy #[id number], Partial fill upon patient request if the prescriptionis for a schedule II opioid drug., frank Mitchell, ... Start Date: 07/20/23 Stop Date: 10/18/23 Status: Ordered MiraLax oral powder for reconstitution = 17 Gm, By Mouth, Daily, PRN Constipation, for 30 days, # 30 each, 0 Refills, Acute 10/06/23 12:41:00 EDT, 09/06/23 12:41:00 EDT, REC Powder, [facility]/pharmacy #[id number], Partial fill upon patient request ifthe [...] EDT, [facility]... Start Date: 08/23/23 Status: Ordered pantoprazole 40 mg oral delayed release tablet = 40 mg, By Mouth, Daily, # 21 tablet, 0 Refills, Maintenance, 08/23/23 15:51:00 EDT, [facility] Tablet, 182, cm, 07/26/23 9:16:00 EDT, Height, 89, kg, 08/21/23 7:13:00 EDT, Dry Weight Start Date: 08/23/23 Status: Ordered tiZANidine 2 mg oral tablet 4 mg, 2, tablet, By Mouth, Every 8 hours, PRN, # 180 tablet, Refills 11, Tot. Refills 11, Maintenance, as needed for muscle spasm, 08/12/23 13:51:00 EDT, Route to Pharmacy Electronically, [facility]/pharmacy #[id number], Partial fill upon patient request if the pr... Start Date: 08/12/23 Status: Ordered Vashe wound solution Vashe wound [...] 0 Refills, Maintenance, 07/16/23 10:05:00 EST, Tablet, [facility], Partial fill upon patient [...] apex Confirmed Active [facility] Care Management, Prepress Operator Carmen Elizabeth [phone] Confirmed Active Therapeutic drug monitoring Confirmed Active [...] Care Nurse Name: Areli Pittman RN Position: [facility] ED RN W/OE and Tasks Member Role: Primary Care Nurse Name: Derek Tomas MD Position: [facility] Resident Member Role: PCP Address: Address: [address] [place] [address] Name: Monique Irwin LPN Position: [facility] RN Member Role: Primary Care Nurse Name: Lianna Epstein RN Position: [facility] RN Member Role: Primary Care Nurse Name: Vicenta Barnett RN Position: [facility] RN Member Role: Primary Care Nurse Name: Farhana Garcia RN Position: [facility] RN Member Role: Primary Care Nurse Name: Ricardo Russell RN Position: [facility] RN Member Role: Primary Care Nurse Name: Gissell Jernigan RN Position: [facility] RN Member Role: Primary Care Nurse Name: Farhana Green RN Position: [facility] RN Member Role: Primary Care Nurse Name: Cydney Delgado RN Position: [facility] RN Member Role: Primary Care Nurse Name: Sharon Mendez RN Position: [facility] RN Member Role: Primary Care Nurse Name: Mookie Christianson RN Position: [facility] RN Member Role: Primary Care Nurse Name: Ally Boyd RN Position: [facility] RN Member Role: Primary Care Nurse Name: Javed Oneill RN Position: [facility] RN Member Role: Primary Care Nurse Name: Lynn Stewart RN Position: [facility] RN Member Role: Primary Care Nurse Name: Amanda Johnson RN Position: [facility] RN Member Role: Primary Care Nurse Name: Jolie Villalobos RN Position: [facility] RN Member Role: Primary Care Nurse Name: Axel Savage RN Position: [facility] RN Member Role: Primary Care Nurse Name: Dirk Driver RN Position: [facility] RN Member Role: Primary Care Nurse Name: Glenys Bee RN Position: [facility] RN Member Role: Primary Care Nurse Name: Praveen Maurer Position: [facility] RN Member Role: Primary Care Nurse Name: Filemon King RN Position: [facility] RN Member Role: Primary Care Nurse Name: Lauren Guevara RN Position: [facility] RN Member Role: Primary Care Nurse Name: Annamaria Quinn RN Position: [facility] RN Member Role: Primary Care Nurse Name: Jada Waller RN Position: [facility] RN Member Role: Primary Care Nurse Name: Lashawn Nagy RN Position: [facility] RN Member Role: Primary Care Nurse Name: Glenys Fox RN Position: [facility] RN Member Role: Primary Care Nurse Care Team Related Persons Name: BEVERLY REYNAGA Address: [place] [address] Name: AISLINN DE LA PAZ Address: home [address] [place] [id number]
--- OUTSIDE RECORDS SUMMARY | 2024-01-21 19:28 | XMS_ITS | Continuity of Care Document ---
Author Organization [facility] Address [address] [place] [address]- Care Team Providers Care Credit Union Examiner Name Role Phone Derek Tomas MD Primary Care Physician [place] [facility] - 09/01/[address] [address]- Allergies, Adverse Reactions, Alerts No Known Allergies [...] 06/17/23 8:53:00 EST, Route to Pharmacy Electronically, [facility], Partial fill upon patient request if the prescription is for a schedule II opioid... Start Date: 06/17/23 Status: Ordered amoxicillin-clavulanate 875 mg-125 mg oral tablet 1 tablet, By Mouth, Every 12 hours, for 12 days, # 24 tablet, 0 Refills, Acute 09/04/23 15:52:00 EDT, 08/23/23 15:52:00 EDT, Tablet, [facility], Partial fill upon patient request if theprescription is for a schedule II opioid drug., 182... Start Date: 08/23/23 Stop Date: 09/04/23 Status: Ordered baclofen 20 mg oral tablet 20 mg, 1, tablet, By Mouth, 4 times a day, # 120 tablet, Refills 5, Tot. Refills 5, Maintenance, 08/06/23 9:00:00 EDT, Route to Pharmacy Electronically, [facility]/pharmacy #[id number], 182, cm, 07/26/23 9:16:00 EDT, Height, 89, kg, 07/03/23 11:22:00 EST, Dry Weight Start Date: 08/06/23 Status: Ordered docusate sodium 100 mg oral capsule 100 mg, 1, capsule, By Mouth, 2 times a day, # 60 capsule, Refills 0, Tot. Refills 0, Maintenance, 08/14/23 12:50:00 EDT, Route to Pharmacy Electronically, [facility]/pharmacy #[id number], Partial fill upon patient request if the prescription is for a schedule II... Start Date: 08/14/23 Stop Date: 09/13/23 Status: Ordered doxycycline hyclate 100 mg oral capsule 1 capsule = 100 mg, By Mouth, 2 times a day, for 12 days, # 24 capsule, 0 Refills, Acute 09/04/23 15:52:00 EDT, 08/23/23 15:52:00 EDT, Capsule, [facility], Partial fill upon patient request if the prescription is for a schedule II opioid... Start Date: 08/23/23 Stop Date: 09/04/23 Status: Ordered duloxetine 30 mg oral enteric coated capsule TAKE 1 CAPSULE BY MOUTH EVERY DAY Start Date: 08/20/23 Status: Ordered Eliquis 5 mg oral tablet See Instructions, TAKE 1 TABLET BY MOUTH TWICE A DAY, # 60 tablet, 11 Refills, Maintenance, 06/12/23 6:31:00 EST, [id number], 193, cm, 06/01/23 9:54:00 EST, Height, 90.9, kg, 06/01/23 9:54:00 EST, Dry Weight Start Date: 06/12/23 Status: Ordered ferrous sulfate 325 mg oral tablet 1 tablet = 325 mg, By Mouth, 2 times a day, TAKE 1 TABLET BY MOUTH EVERY DAY, # 180 tablet, 0 Refills, Maintenance, 08/14/23 12:47:00 EDT, [id number] upon [...] 06/12/23 6:46:00 EST, [id number] upon... Start Date: 06/12/23 Status: Ordered gabapentin 600 mg oral tablet 1 tablet = 600 mg, By Mouth, 3 times a day, # 90 tablet, 11 Refills, Maintenance, 08/12/23 13:51:00EDT, Tablet, [id number] Partial fill upon patient request if the prescription is for a schedule II opioid drug., 182, cm, 07/26/23 9:16:00 EDT... Start Date: 08/12/23 Status: Ordered hydroxyurea 500 mg oral capsule = 500 mg, By Mouth, Daily, for 30 days, # 30 capsule, 2 Refills, Acute 10/18/23 14:36:00 EDT, 07/20/23 14:36:00 EST, Capsule, [facility]/pharmacy #[id number], Partial fill [...] [facility]... Start Date: 08/23/23 Status: Ordered oxyCODONE 5 mg oral tablet 12.5 mg, 2.5, tablet, By Mouth, Every 4 hours, for 10 days, Please take 2.5 tablets (12.5 mg) every4 hours as needed for moderate to severe pain. [facility] checked on 07/15 (filled 3 day supply, 45 tablets), # 150 tablet, Refills 0, Tot. Refills 0, Acute... Start Date: 08/26/23 Stop Date: 09/05/23 Status: Ordered pantoprazole 40 mg oral delayed [...] 08/12/23 13:51:00 EDT, Route to Pharmacy Electronically, [facility]/pharmacy #[id number], Partial fill upon patient request if the [...] 0 Refills, Maintenance, 07/16/23 10:05:00 EST, Tablet, [facility], Partial fill upon [...] thrombus of cardiac apex Confirmed Active [facility] Care Management, Tag Meter Operator Carmen Elizabeth [phone] Confirmed Active Therapeutic drug monitoring Confirmed Active Peripheral neuropathy Confirmed Active Right spastic hemiparesis Confirmed Active Spasticity Confirmed Active Tobacco dependence Confirmed Active Social History Social History Type Response Smoking Status 5-9 cigarettes (betw een 1/4 to 1/2 pack)/day in last 30 days entered on: 05/16/22 Sex Patient Care team information Care Team Personnel Name: Anu Lipscomb Position: [facility] RN Member Role: Primary Care Nurse Name: Areli Pittman RN Position: [facility] ED RN W/OE and Tasks Member Role: Primary Care Nurse Name: Derek Tomas MD Position: [facility] Resident Member Role: PCP Address: Address: [address] [place] [address] Name: Lianna Epstein RN Position: [facility] RN Member Role: Primary Care Nurse Name: Vicenta Barnett RN Position: [facility] RN Member Role: Primary Care Nurse Name: Farhana Garcia RN Position: [facility] RN Member Role: Primary Care Nurse Name: Farhana Green RN Position: [facility] RN Member Role: Primary Care Nurse Name: Cydney Delgado RN Position: [facility] RN Member Role: Primary Care Nurse Name: Sharon Mendez RN Position: [facility] RN Member Role: Primary Care Nurse Name: Ally Boyd RN Position: [facility] RN Member Role: Primary Care Nurse Name: Javed Oneill RN Position: [facility] RN Member Role: Primary Care Nurse Name: Lynn Stewart RN Position: [facility] RN Member Role: Primary Care Nurse Name: Amanda Johnson RN Position: [facility] RN Member Role: Primary Care Nurse Name: Jolie Villalobos RN Position: [facility] RN Member Role: Primary Care Nurse Name: Axel Savage RN Position: [facility] RN Member Role: Primary Care Nurse Name: Glenys Bee RN Position: [facility] RN Member Role: Primary Care Nurse Name: Praveen Maurer Position: [facility] RN Member Role: Primary Care Nurse Name: Filemon King RN Position: S RN Member Role: Primary Care Nurse Name: Lauren Guevara RN Position: [facility] RN Member Role: Primary Care Nurse Name: Annamaria Quinn RN Position: [facility] RN Member Role: Primary Care Nurse Name: Lashawn Nagy RN Position: [facility] RN Member Role: Primary Care Nurse Name: Glenys Fox RN Position: [facility] RN Member Role: Primary Care Nurse Care Team Related Persons Name: BEVERLY RENYAGA Address: [place] [address] Name: AISLINN DE LA PAZ Address: home [address] [place] [address]
--- OUTSIDE RECORDS SUMMARY | 2024-01-21 19:28 | XMS_ITS | Continuity of Care Document ---
Author Organization [facility] ter Address [address] [place] [id number]- Care Team Providers Care Addiction Treatment Counselor Name Role Phone Derek Tomas MD Primary Care Physician [id number] Date(s): 09/29/23 - 09/29/[address] [address]- Encounter Diagnosis Hidradenitis suppurativa(Final) - 09/29/23 Discharge Disposition: A-D/C Home Attending Physician: Han Phillips MD Admitting Physician: Han Phillips MD Referring Physician: Not on Staff, Referring [...] 06/17/23 8:53:00 EST, Route to Pharmacy Electronically, [facility], Partial fill upon patient request if the prescription is for a schedule II opioid... Start Date: 06/17/23 Status: Ordered ascorbic acid 500 mg oral tablet 1 tablet = 500 mg, By Mouth, Daily, # 30 tablet, 0 Refills, Maintenance, 09/06/23 12:42:00 EDT, Tablet, [facility]/pharmacy [...] 9:00:00 EDT, Route to Pharmacy Electronically, [facility]/pharmacy #[id number], 182, cm, 07/26/23 9:16:00 EDT, Height, 89, kg, 07/03/23 11:22:00 EST, Dry Weight Start Date: 08/06/23 Status: Ordered Dilaudid Inj 2 mg, Injection, IV Push Slowly, Every 15 minutes for 3 doses/times, PRN for Pain , Moderate, and SBP greater than 100, Routine, 09/29/23 11:08:00 EDT, Stop date Limited # of times Start Date: 09/29/23 Stop Date: 09/29/23 Status: Completed docusate sodium 100 mg oral capsule 1 capsule, By Mouth, 2 times a day, # 60 capsule, 11 Refills, Maintenance, 09/03/23 17:44:00 EDT, [id number], 193, cm, 09/03/23 14:09:00 EDT, Height, 91.4, kg, 08/30/23 12:03:00 EDT, Dry Weight Start Date: 09/03/23 Status: Ordered duloxetine 30 mg oral enteric coated capsule 1 capsule = 30 mg, By Mouth, Daily, TAKE 1 CAPSULE BY MOUTH EVERY DAY, # 30 capsule, 6 Refills, Maintenance, 09/03/23 17:47:00 EDT, Capsule, [facility]/pharmacy #[id number], [...] tablet, 11 Refills, Maintenance, 08/12/23 13:51:00EDT, Tablet, [id number], Partial fill upon patient request if the prescription is for a schedule II opioid drug., 182, cm, 07/26/23 9:16:00 EDT... Start Date: 08/12/23 Status: Ordered hydroxyurea 500 mg oral capsule = 500 mg, By Mouth, Daily, for 30 days, # 30 capsule, 2 Refills, Acute 10/18/23 14:36:00 EDT, 07/20/23 14:36:00 EST, Capsule, [id number], Partial fill upon patient request if the prescriptionis for a schedule II opioid drug., 182, cm, ... Start Date: 07/20/23 Stop Date: 10/18/23 Status: Ordered MiraLax oral powder for reconstitution = 17 Gm, By Mouth, Daily, PRN Constipation, for 30 days, # 30 each, 0 Refills, Acute 10/06/23 12:41:00 EDT, 09/06/23 12:41:00 EDT, REC Powder, [id number], Partial fill upon patient request ifthe prescription is for a schedule II opioid drug.,... Start Date: 09/06/23 Stop Date: 10/06/23 Status: Ordered morphine 30 mg oral tablet, immediate release 1 tablet = 30 mg, By Mouth, Every 4 hours, PRN as needed for pain, # 12 tablet, 0 Refills, Acute 09/30/23 13:49:00 EDT, 09/29/23 13:48:00 EDT, Tablet, [id number], Partial fill upon patient request if the prescription is for a schedule II opioi... Start Date: 09/29/23 Stop Date: 09/30/23 Status: Ordered MorPHINE Immediate Release Tablet 30 mg, Tablet, By Mouth, Once, PRN for Pain , Severe, STAT, 09/29/23 19:49:00 EDT Start Date: 09/29/23 Stop Date: 09/29/23 Status: Completed Narcan 4 mg/0.1 mL nasal spray 1 [...] 13:51:00 EDT, Route to Pharmacy Electronically, [facility]/pharmacy #[id number], Partial fill upon patient request if the [...] 0 Refills, Maintenance, 07/16/23 10:05:00 EST, Tablet, [facility], Partial fill upon patient [...] apex Confirmed Active [facility] Care Management, Music Publicist Carmen Elizabeth [phone] Confirmed Active Therapeutic drug monitoring Confirmed Active Peripheral neuropathy Confirmed Active Right spastic hemiparesis Confirmed Active Spasticity Confirmed Active Tobacco dependence Confirmed Active Vital Signs Most recent to oldest [Reference Range]: 1 2 3 Height 190 cm (09/29/23 11:00 AM) Weight 110 kg (09/29/23 11:00 AM) Oxygen Saturation [94-100 %] 100 % (09/29/23 7:34 PM) 98 % (09/29/23 12:26 PM) 99 % (09/29/23 11:45 AM) Pulse Rate [55-90 bpm] 67 bpm (09/29/23 7:34 PM) 93 bpm *H* (09/29/23 12:26 PM) 99 bpm *H* (09/29/23 11:45 AM) Blood Pressure [90-138/55-84 mm Hg] 116/75mm Hg (09/29/23 7:34 PM) 129/80mm Hg (09/29/23 12:26 PM) 133/89mm Hg (09/29/23 11:45 AM) Respiratory Rate [16-30 br/min] 16 br/min (09/29/23 7:54 PM) 16 br/min (09/29/23 7:34 PM) 16 br/min (09/29/23 1:25 PM) Temperature [96.8-100.4 DegF] 98.6 DegF (09/29/23 7:34 PM) 98.4 DegF (09/29/23 11:45 AM) Mode of Delivery (Oxygen) Room air (09/29/23 7:34 PM) Room air (09/29/23 12:26 PM) Room air (09/29/23 11:45 AM) Temperature Route Oral (09/29/23 7:34 PM) Oral (09/29/23 11:45 AM) Social History Social History Type Response Smoking Status 5-9 cigarettes (betw een / to 1/2 pack)/day in last 30 days entered on: 05/16/22 Sex Note * Han Phillips MD: PERFORM Event Display: Patient Education Leaflets Authored Date: [id number] Hidradenitis Suppurativa (Antibiotics Only) ?? [id number] Hidradenitis Suppurativa (Antibiotics Only) Hidradenitis suppurativa is chronic inflammation of the sweat glands. It's a severe form of acne. Firm, red, painful bumps (nodules) form. They are??often??filled with pus. They often get larger and may break open and drain. Common affected areas are the armpits, groin, anal area, and under the breasts. The nodules??aren't contagious. The condition isn't caused by poor hygiene. You may have been given antibiotics and anti-inflammatory medicines to help treat the flare-up. If nodules keep getting bigger, drainage may be needed. Surgically removing the glands is the most effective treatment in severe cases. Watch for signs of early inflammation in the future. Look for small, tender??lumps. Then follow thetreatment advice below. Home care Follow these tips when caring for yourself at home: ??? If oral antibiotics were prescribed, take all of them as advised by your healthcare provider. ??? Make a warm compress by running hot water over a washcloth. To prevent spreading bacteria, use a fresh, clean washcloth. each time. Apply it to the affected area for 10 minutes. Warm the washcloth again as needed if it cools off. Or you can dye stand loader the shower and direct the warm spray onto the area. ??? Gently wash the area with antibacterialsoap. Don't scrub it. ??? Use??[id number] medicine to control pain and swelling, unless another pain medicine was given. If you have kidney??or liver??disease or ever had a stomach ulcer or gastrointestinal bleeding, talk with your healthcare provider before using this medicine. ?? Prevention Try the following to help prevent your condition: ??? Don't use antiperspirants and deodorants. ???Stay out of the heat as much as possible. ??? Don't shave the affected area. ??? If you smoke, quit. ??? Lose excess weight. ??? Wear loose clothing. Stay away from tight synthetic clothing. ?? Follow-up care Follow up with your healthcare provider, or as advised. Depression is common in people with this condition. Talk to your provider if you have feelings of hopelessness, sadness, or other symptoms of depression. Help is available. When to get medical advice Call your healthcare provider right away??if any of these occur: ??? Fever of??100.4??F (38??C) or higher, or as directed by your healthcare provider ??? Increasing pain ??? Increasing redness ??? Nodules keep getting bigger ?? Last Reviewed Date: 2021 ?? 9236-3242 The [employer]. All rights reserved. This information is not intended as a substitute for professional medical care. Always follow your healthcare professional's instructions. ?? Patient Care team information Care Team Personnel Name: Anu Lipscomb Position: S RN Member Role: Primary Care Nurse Name: Jeanne Bryant RN Position: S RN Member Role: Primary Care Nurse Name: Areli Pittman RN Position: [facility] [place] RN W/OE and Tasks Member Role: Primary Care Nurse Name: Derek Tomas MD Position: [facility] Resident Member Role: PCP Address: Address: [address] [place] [address]- Name: Monique Irwin LPN Position: S RN Member Role: Primary Care Nurse Name: Lianna Epstein RN Position: S RN Member Role: Primary Care Nurse Name: Vicenta Barnett RN Position: S RN Member Role: Primary Care Nurse Name: Farhana Garcia RN Position: [facility] RN Member Role: Primary Care Nurse Name: Ricardo Russell RN Position: [facility] RN Member Role: Primary Care Nurse Name: Gissell Jernigan RN Position: [facility] RN Member Role: Primary Care Nurse Name: Farhana Green RN Position: [facility] RN Member Role: Primary Care Nurse Name: Cydney Delgado RN Position: [facility] RN Member Role: Primary Care Nurse Name: Sharon Mendez RN Position: [facility] RN Member Role: Primary Care Nurse Name: Mookie Christianson RN Position: [facility] RN Member Role: Primary Care Nurse Name: Ally Boyd RN Position: [facility] RN Member Role: Primary Care Nurse Name: Javed Oneill RN Position: [facility] RN Member Role: Primary Care Nurse Name: Lynn Stewart RN Position: [facility] RN Member Role: Primary Care Nurse Name: Amanda Johnson RN Position: [facility] RN Member Role: Primary Care Nurse Name: Jolie Villalobos RN Position: [facility] RN Member Role: Primary Care Nurse Name: Axel Savage RN Position: [facility] RN Member Role: Primary Care Nurse Name: Dirk Driver RN Position: [facility] RN Member Role: Primary Care Nurse Name: Glenys Bee RN Position: [facility] RN Member Role: Primary Care Nurse Name: Praveen Maurer Position: [facility] RN Member Role: Primary Care Nurse Name: Filemon King RN Position: [facility] RN Member Role: Primary Care Nurse Name: Lauren Guevara RN Position: [facility] RN Member Role: Primary Care Nurse Name: Annamaria Quinn RN Position: [facility] RN Member Role: Primary Care Nurse Name: Jada Waller RN Position: [facility] RN Member Role: Primary Care Nurse Name: Lashawn Nagy RN Position: [facility] RN Member Role: Primary Care Nurse Name: Jacquelin Naranjo RN Position: [facility] RN Member Role: Primary Care Nurse Name: Glenys Fox RN Position: [facility] RN Member Role: Primary Care Nurse Care Team Related Persons Name: BEVERLY REYNAGA Address: [place] [address] Name: AISLINN DE LA PAZ Address: home [address] [place] [id number]
--- OUTSIDE RECORDS SUMMARY | 2024-01-21 19:28 | XMS_ITS | Continuity of Care Document ---
Author Organization [facility] Address [address] [place] [address]- Care Team Providers Care Brass Pickler Name Role Phone Derek Tomas MD Primary Care Physician Encounter [facility] Date(s): 10/23/23 - 11/22/[address] [address]- Allergies, Adverse Reactions, Alerts No Known Allergies Immunizations Given and Recorded Vaccine Date Status Refusal Reason influenza virus vaccine, inactivated 05/18/22 Give n tetanus/diphtheria/pertussis, acel(Tdap) 09/13/19 Recorded Medications acetaminophen 500 mg oral tablet 2 tablet = 1,000 mg, By Mouth, 3 times a day, PRN for pain, # 100 tablet, 6 Refills, Acute 05/12/2415:40:00 EST, 10/25/23 15:40:00 EDT, Tablet, [facility][id number], Partial fill upon patient request if the prescription is for a schedule II opioid drug... Start Date: 10/25/23 Stop Date: 05/12/24 Status: Ordered amLODIPine 5 mg oral tablet 5 mg, 1, tablet, By Mouth, Daily, # 30 tablet, Refills 0, Tot. Refills 0, Maintenance, 06/17/23 8:53:00 EST, Route to Pharmacy Electronically, [facility], Partial fill upon [...] 08/06/23 9:00:00 EDT, Route to Pharmacy Electronically, [facility]/pharmacy #[id number], 182, cm, 07/26/23 9:16:00 EDT, Height, 89, kg, 07/03/23 11:22:00 EST, Dry Weight Start Date: 08/06/23 Status: Ordered clindamycin 1% topical gel APPLY TO AFFECTED AREA TOPICALLY TWICE A DAY Start Date: 11/17/23 Status: Ordered docusate sodium 100 mg oral capsule 1 capsule, By Mouth, 2 times a day, # 60 capsule, 11 Refills, Maintenance, 09/03/23 17:44:00 EDT, [id number], 193, cm, 09/03/23 14:09:00 EDT, Height, 91.4, kg, 08/30/23 12:03:00 EDT, Dry Weight Start Date: 09/03/23 Status: Ordered duloxetine 30 mg oral enteric coated capsule 1 capsule = 30 mg, By Mouth, 2 times a day, TAKE 1 CAPSULE BY MOUTH EVERY DAY, # 60 capsule, 6 Refills, Maintenance, 10/25/23 15:39:00 EDT, Capsule, [facility]/pharmacy #[id number], Partial fill upon patient request [...] 0 Refills, Maintenance, 10/16/23 15:51:00 EDT, [id number], 193, cm, 10/04/23 3:49:00 EDT, Height, 90.4, [...] tablet, 11 Refills, Maintenance, 08/12/23 13:51:00EDT, Tablet, [facility]/pharmacy #[id number], Partial fill upon patient request [...] mg, By Mouth, Every 4 hours, PRN Pain , Moderate, for 7 days, for moderate to severe pain, # 42 tablet, 0 Refills, Acute 11/26/23 14:52:00 EDT, 11/19/23 14:52:00 EDT, Tablet, [facility], Partial fill upon patient request if... Start Date: 11/19/23 Stop Date: 11/26/23 Status: Ordered pantoprazole 40 mg oral delayed [...] 08/12/23 13:51:00 EDT, Route to Pharmacy Electronically, [facility]/pharmacy #[id number], Partial fill upon patient request if the [...] 0 Refills, Maintenance, 07/16/23 10:05:00 EST, Tablet, [facility], Partial fill upon patient request if [...] Care team information Care Team Personnel Name: nAu Lipscomb RN Position: [facility] RN Member Role: Primary Care Nurse Name: Jeanne Bryant RN Position: [facility] RN Member Role: Primary Care Nurse Name: Mitch Guido RN Position: [facility] RN Member Role: Primary Care Nurse Name: Areli Pittman RN Position: [facility] ED RN W/OE and Tasks Member Role: Primary Care Nurse Name: Derek Toams MD Position: [facility] Resident Member Role: PCP Address: Address: [address] [place] [address] Name: Mari Suh RN Position: [facility] RN Member Role: Primary Care Nurse Name: Monique Irwin LPN Position: [facility] RN Member Role: Primary Care Nurse Name: Lianna Epstein RN Position: [facility] RN Member Role: Primary Care Nurse Name: Austin Wright RN Position: [facility] RN Member Role: Primary Care Nurse Name: Mk Knutson LPN Position: [facility] RN Member Role: Primary Care Nurse Name: Betty Fonseca RN Position: [facility] RN Member Role: Primary Care Nurse Name: Farhana Garcia RN Position: [facility] RN Member Role: Primary Care Nurse Name: Kenyatta Villegas RN Position: [facility] RN Member Role: Primary Care Nurse Name: Albertina Adams RN Position: [facility] RN Member Role: Primary Care Nurse Name: Ricardo Russell RN Position: [facility] RN Member Role: Primary Care Nurse Name: Gissell Jernigan RN Position: [facility] RN Member Role: Primary Care Nurse Name: Farhana Green RN Position: [facility] RN Member Role: Primary Care Nurse Name: Cydney Delgado RN Position: [facility] RN Member Role: Primary Care Nurse Name: Debbie Rios RN Position: [facility] RN Member Role: Primary Care Nurse Name: Sharon Mendez RN Position: [facility] RN Member Role: Primary Care Nurse Name: Mookie Christianson RN Position: [facility] RN Member Role: Primary Care Nurse Name: Ally Boyd RN Position: [facility] RN Member Role: Primary Care Nurse Name: Javed Oneill RN Position: [facility] RN Member Role: Primary Care Nurse Name: Frances Quach RN Position: [facility] RN Member Role: Primary Care Nurse Name: Sandie Mejia RN Position: [facility] RN Member Role: Primary Care Nurse Name: rKiss Castillo RN Position: [facility] RN Member Role: Primary Care Nurse Name: Lynn Stewart RN Position: [facility] RN Member Role: Primary Care Nurse Name: Amanda Johnson RN Position: [facility] RN Member Role: Primary Care Nurse Name: Jolie Villalobos RN Position: [facility] RN Member Role: Primary Care Nurse Name: Axel Savage RN Position: [facility] RN Member Role: Primary Care Nurse Name: Dirk Driver RN Position: [facility] RN Member Role: Primary Care Nurse Name: Glenys Bee RN Position: [facility] RN Member Role: Primary Care Nurse Name: Praveen Maurer RN Position: [facility] RN Member Role: Primary Care Nurse Name: Filemon King RN Position: [facility] RN Member Role: Primary Care Nurse Name: Gomez Corona RN Position: [facility] RN Member Role: Primary Care Nurse Name: Lauren Guevara RN Position: [facility] RN Member Role: Primary Care Nurse Name: Annamaria Quinn RN Position: [facility] RN Member Role: Primary Care Nurse Name: Lashawn Nagy RN Position: [facility] RN Member Role: Primary Care Nurse Name: Rhonda Tate LPN Position: [facility] RN Member Role: Primary Care Nurse Name: Jacquelin Naranjo RN Position: [facility] RN Member Role: Primary Care Nurse Name: Glenys Fox RN Position: [facility] RN Member Role: Primary Care Nurse Name: Reilly Moreno RN Position: [facility] RN Member Role: Primary Care Nurse Care Team Related Persons Name: BEVERLY REYNAGA Address: home [address] [place] [address] Name: HEENA MCQUEEN Address: [place] [address] [place] [address] Name: AISLINN DE LA PAZ Address: [address] [address]
--- OUTSIDE RECORDS SUMMARY | 2024-01-21 19:29 | XMS_ITS | Continuity of Care Document ---
Author Organization [facility] ter Address [address] [place] [id number]- Care Team Providers Care Laborer Stores Name Role Phone Derek Tomas MD Primary Care Physician [place] [facility] [place]/03[place] - 01/04/[address] [address]- Discharge Disposition: A-D/C Home Attending Physician: Prema Montanez MD Admitting Physician: Prema Montanez MD Referring Physician: Not on Staff, Referring [...] Acute 05/12/2415:40:00 EST, 10/25/23 15:40:00 EDT, Tablet, [id number], Partial fill upon patient request if the prescription is for a schedule II opioid drug... Start Date: 10/25/23 Stop Date: 05/12/24 Status: Ordered ascorbic acid 500 mg oral [...] 08/06/23 9:00:00 EDT, Route to Pharmacy Electronically, [facility]/pharmacy #[id number], 182, cm, 07/26/23 9:16:00 EDT, Height, 89, kg, 07/03/23 11:22:00 EST, Dry Weight Start Date: 08/06/23 Status: Ordered clindamycin 1% topical gel APPLY TO AFFECTED AREA TOPICALLY TWICE A DAY Start Date: 11/17/23 Status: Ordered Dilaudid 2 mg oral tablet = 2 mg, By Mouth, Every 8 hours, PRN Pain , Severe, for 5 days, # 15 tablet, 0 Refills, Acute 01/05/24 12:53:00 EDT, 12/31/23 12:53:00 EDT, Tablet, [facility], Partial fill upon patientrequest if the prescription is for a schedule II op... Start Date: 12/31/23 Stop Date: 01/05/24 Status: Ordered docusate sodium 100 mg oral capsule 1 capsule, By Mouth, 2 times a day, # 60 capsule, 11 Refills, Maintenance, 09/03/23 17:44:00 EDT, [facility] STORE [id number], 193, cm, 09/03/23 14:09:00 EDT, Height, 91.4, kg, 08/30/23 12:03:00 EDT, Dry Weight Start Date: 09/03/23 Status: Ordered duloxetine 30 mg oral enteric coated capsule 1 capsule = 30 mg, By Mouth, 2 times a day, TAKE 1 CAPSULE BY MOUTH EVERY DAY, # 60 capsule, 6 Refills, Maintenance, 10/25/23 15:39:00 EDT, Capsule, [facility]/pharmacy #[id number], Partial fill upon [...] tablet, 0 Refills, Maintenance, 10/16/23 15:51:00 EDT[id number] 193, cm, 10/04/23 3:49:00 EDT, Height, 90.4, [...] tablet, 11 Refills, Maintenance, 08/12/23 13:51:00EDT, Tablet, [facility]/pharmacy #[id number], Partial fill upon patient request if the prescription is for a schedule II opioid drug., 182, cm, 07/26/23 9:16:00 EDT... Start Date: 08/12/23 Status: Ordered hydroxyurea 500 mg oral capsule 1 capsule, By Mouth, Daily, # 30 capsule, 0 Refills, Maintenance, 12/11/23 14:15:00 EDT, [id number], 194, cm, 11/20/23 13:14:00 EDT, Height, 93.9, kg, 11/16/23 23:35:00 EDT, Dry Weight Start Date: 12/11/23 Status: Ordered Ilaris 150 mg/mL subcutaneous solution [...] hours, PRN as needed for pain, for 28 days, # 112 tablet, 0 Refills, Acute 02/07/24 7:02:00 EDT, 01/10/24 7:02:00 EDT, [id number] fill upon patient request if the prescription is for a sched... Start Date: 01/10/24 Stop Date: 02/07/24 Status: Ordered oxyCODONE 30 mg oral tablet 1 tablet = 30 mg, By Mouth, Every 6 hours, for 7 days, # 28 tablet, 0 Refills, Acute 01/07/24 12:55:00 EDT, 12/31/23 12:55:00 [facility], Partial fill upon patient request if the prescription is for a schedule II opioid drug., 194,... Start Date: 12/31/23 Stop Date: 01/07/24 Status: Ordered oxyCODONE 30 mg oral tablet 1 tablet = 30 mg, By Mouth, Every 6 hours, PRN as needed for pain, # 56 tablet, 0 Refills, Maintenance, 01/04/24 2:45:00 EDT, Tablet, [facility] 3, Partial fill upon patient request if the prescription is for a schedule II opioid drug., 19... Start Date: 01/04/24 Status: Ordered oxyCODONE 5 mg oral tablet 30 mg, Tablet, By Mouth, Once, PRN for Pain , Mild, Routine, 01/04/24 3:20:00 EDT Start Date: 01/04/24 Stop Date: 01/04/24 Status: Completed pantoprazole 40 mg oral delayed release tablet [...] 08/12/23 13:51:00 EDT, Route to Pharmacy Electronically, [facility]/pharmacy #[id number], Partial fill upon patient request if the [...] 0 Refills, Maintenance, 07/16/23 10:05:00 EST, Tablet, [facility] 3, Partial fill upon patient request [...] Thrombocytosis Confirmed Active Tobacco dependence Confirmed Active Vital Signs Most recent to oldest [Reference Range]: 1 2 3 Height 193.8 cm (01/04/24 1:02 AM) 193.8 cm (01/03/24 6:50 PM) 15.24 cm (01/03/24 6:39 PM) Weight 90.72 kg (01/04/24 1:02 AM) 90.72 kg (01/03/24 6:50 PM) 90.72 kg (01/03/24 6:39 PM) Oxygen Saturation [94-100 %] 99 % (01/04/24 7:00 AM) 98 % (01/04/24 5:10 AM) 98 % (01/04/24:02 AM) Pulse Rate [55-90 bpm] 60 bpm (01/04/24 7:00 AM) 51 bpm *L* (01/04/24 5:10 AM) 63 bpm (01/04/24 1:02 AM) Body Mass Index [18.5-24.99 kg/m2] 24.15 kg/m2 (01/04/24 1:02 AM) 24.15 kg/m2 (01/03/24 6:50 PM) Blood Pressure [90-138/55-84 mm Hg] 116/66mm Hg (01/04/24 7:00 AM) 125/64mm Hg (01/04/24 5:10 AM) 113/52mm Hg (01/04/24 1:02 AM) Respiratory Rate [16-30 br/min] 18 br/min (01/04/24 7:00 AM) 20 br/min (01/04/24 5:10 AM) 18 br/min (01/04/24 3:33 AM) Temperature [96.8-100.4 DegF] 98.1 DegF (01/04/24 7:00 AM) 98.3 DegF (01/04/24 5:10 AM) 98.4 DegF (01/04/24 1:02 AM) Mode of Delivery (Oxygen) Room air (01/04/24 7:00 AM) Room air (01/04/24 5:10 AM) Room air (01/04/24 1:02 AM) Blood pressure sites Arm, left (01/04/24 7:00 AM) Arm, left (01/04/24 5:10 AM) Arm, left (01/04/24 1:02 AM) Temperature Route Oral (01/04/24 7:00 AM) Oral (01/04/24 5:10 AM) Oral (01/04/24 1:02 AM) Dry Weight 90.72 kg (01/04/24 1:02 AM) 90.72 kg (01/03/24 6:00 PM) Social History Social History Type Response Smoking Status 5-9 cigarettes (betw een 1/4 to 1/2 pack)/day in last 30 days entered on: 05/16/22 Sex Patient Care team information Care Team Personnel Name: Rita Welch RN Position: [facility] RN Member Role: Primary Care Nurse Name: Sanna Cardozo RN Position: [facility] RN Member Role: Primary Care Nurse Name: Anu Lipscomb RN Position: [facility] RN Member Role: Primary Care Nurse Name: Jeanne Bryant RN Position: [facility] RN Member Role: Primary Care Nurse Name: Mitch Guido RN Position: [facility] RN Member Role: Primary Care Nurse Name: Areli Pittman RN Position: [facility] ED RN W/OE and Tasks Member Role: Primary Care Nurse Name: Albertina Kerr RN Position: [facility] RN Member Role: Primary Care Nurse Name: Derek Tomas MD Position: [facility] Resident Member Role: PCP Address: Address: [address] [place] [address] Name: Mrai Suh RN Position: [facility] RN Member Role: Primary Care Nurse Name: Jen Garibay RN Position: [facility] RN Member Role: Primary Care Nurse Name: Monique Irwin LPN Position: [facility] RN Member Role: Primary Care Nurse Name: Lianna Epstein RN Position: [facility] RN Member Role: Primary Care Nurse Name: Austin Wright RN Position: [facility] RN Member Role: Primary Care Nurse Name: Mk Knutson LPN Position: [facility] RN Member Role: Primary Care Nurse Name: Vicenta Barnett RN Position: [facility] RN Member Role: Primary Care Nurse Name: Betty Fonseca RN Position: [facility] RN Member Role: Primary Care Nurse Name: Farhana Garcia RN Position: [facility] RN Member Role: Primary Care Nurse Name: Kenyatta Villegas RN Position: [facility] RN Member Role: Primary Care Nurse Name: Albertina Adams RN Position: [facility] RN Member Role: Primary Care Nurse Name: Ricardo Russell RN Position: [facility] RN Member Role: Primary Care Nurse Name: Gissell Jernigan RN Position: [facility] RN Member Role: Primary Care Nurse Name: Farhana Green RN Position: [facility] RN Member Role: Primary Care Nurse Name: Cydney Delgado RN Position: [facility] RN Member Role: Primary Care Nurse Name: Debbie Rios RN Position: [facility] RN Member Role: Primary Care Nurse Name: Sharon Mendez RN Position: [facility] RN Member Role: Primary Care Nurse Name: Mookie Christianson RN Position: [facility] RN Member Role: Primary Care Nurse Name: Ally Boyd RN Position: [facility] RN Member Role: Primary Care Nurse Name: Javed Oneill RN Position: [facility] RN Member Role: Primary Care Nurse Name: Frances Quach RN Position: [facility] RN Member Role: Primary Care Nurse Name: Sandie Mejia RN Position: [facility] RN Member Role: Primary Care Nurse Name: Kriss Castillo RN Position: [facility] RN Member Role: Primary Care Nurse Name: Lynn Stewart RN Position: [facility] RN Member Role: Primary Care Nurse Name: Amanda Johnson RN Position: [facility] RN Member Role: Primary Care Nurse Name: Jolie Villalobos RN Position: [facility] RN Member Role: Primary Care Nurse Name: Axel Savage RN Position: [facility] RN Member Role: Primary Care Nurse Name: Dirk Driver RN Position: [facility] RN Member Role: Primary Care Nurse Name: Glenys Bee RN Position: [facility] RN Member Role: Primary Care Nurse Name: Praveen Maurer RN Position: [facility] RN Member Role: Primary Care Nurse Name: Filemon King RN Position: [facility] RN Member Role: Primary Care Nurse Name: Gomez Corona RN Position: [facility] RN Member Role: Primary Care Nurse Name: Lauren Guevara RN Position: [facility] RN Member Role: Primary Care Nurse Name: Annamaria Quinn RN Position: [facility] RN Member Role: Primary Care Nurse Name: Deana Short RN Position: [facility] RN Member Role: Primary Care Nurse Name: Lashawn Nagy RN Position: [facility] RN Member Role: Primary Care Nurse Name: Rhonda Tate LPN Position: S RN Member Role: Primary Care Nurse Name: Jacquelin Naranjo RN Position: S RN Member Role: Primary Care Nurse Name: Glenys Fox RN Position: S RN Member Role: Primary Care Nurse Name: Reilly Moreno RN Position: S RN Member Role: Primary Care Nurse Care Team Related Persons Name: JUHI, BEVERLY Address: home [address] [place] [address] Name: HEENA MCQUEEN Address: home [address] [place] [address] Name: AISLINN DE LA PAZ Address: home [address] [place] [id number]
--- OUTSIDE RECORDS SUMMARY | 2024-01-21 19:29 | XMS_ITS | Continuity of Care Document ---
Author Organization [facility] Address [address] [place] [address]- Care Team Providers Care Senior Manufacturing Engineer Name Role Phone Genoveva PAGAN, Derek Primary Care Physician Encounter [facility] Date(s): 01/18/23 - 02/17/[address] [address]- Allergies, Adverse Reactions, Alerts No Known Allergies [...] 10/26/21 9:45:00 EDT, Route to Pharmacy Electronically, [facility]/pharmacy #[id number], 193, cm, 10/26/21 9:21:00 [...] 08/17/22 15:25:00 EDT, [facility] ST[facility] [id number], 193.04, cm, 07/23/22 14:07:00 EDT, Height, 99.6, [...] Maintenance, 08/13/22 15:55:00 EDT, Route toPharmacy Electronically, [id number], 193.04, cm, 07/23/22 14:07:00 EDT, Height, 99.6, [...] 02/22/22 9:42:00 EDT, Route to Pharmacy Electronically, [id number], 193, cm, 02/07/22 10:31:00 EDT, Height, 97.2, [...] need: 99 months Number to fax to: [phone], 01/06/21 13:10:00 E... Start Date: 01/06/21 Status: Ordered scopolamine 1 mg/72 hr transdermal film, extended release See Instructions, APPLY 1 PATCH TO RIGHT MASTOID BONE EVERY 72 HOURS, # 10 each, 3 Refills, Maintenance, 06/29/22 11:46:00 EST, [facility]/pharmacy #[id number], APPLY 1 PATCH TO RIGHT MASTOID BONE EVERY 72 HOURS,193.04, cm, 06/29/22 11:17:00 EST, Height, 99.6, kg... Start Date: 06/29/22 Status: Ordered scopolamine 1 mg/72 hr transdermal film, extended release 1 film, Topically, Every 72 hours, Apply to right mastoid bone, # 10 patch, 0 Refills, Maintenance,12/13/22 11:53:00 EDT, [facility]/pharmacy #[id number], Partial fill upon [...] 05/20/22 19:50:00 EST, Route to Pharmacy Electronically, [facility]/pharmacy #[id number], Partial fill upon patient request [...] apex Confirmed Active N CP Care Management, Risk Assessor Carmen Elizabeth [phone] Confirmed Active Therapeutic drug monitoring Confirmed Active Peripheral neuropathy Confirmed Active Spasticity Confirmed Active Tobacco dependence Confirmed Active Social History Social History Type Response Smoking Status 5-9 cigarettes (betw een 1/4 to 1/2 pack)/day in last 30 days entered on: 05/16/22 Sex Patient Care team information Care Team Personnel Name: Areli Pittman RN Position: [facility] ED RN W/OE and Tasks Member Role: Primary Care Nurse Name: Derek Tomas MD Position: [facility] Resident Member Role: PCP Address: Address: [address] [place] [address]- Name: Ally Boyd RN Position: S RN Member Role: Primary Care Nurse Name: Axel Savage RN Position: S RN Member Role: Primary Care Nurse Name: Filemon King RN Position: S RN Member Role: Primary Care Nurse Name: Glenys Fox RN Position: S RN Member Role: Primary Care Nurse Care Team Related Persons Name: BEVERLY REYNAGA Address: home [address] [place] [id number] Name: AISLINN DE LA PAZ Address: [address] [place] [address]
--- OUTSIDE RECORDS SUMMARY | 2024-01-21 19:29 | XMS_ITS | Continuity of Care Document ---
Author Organization [facility] ter Address [address] [place] [id number]- Care Team Providers Care Brand Leader Name Role Phone Derek Tomas MD Primary Care Physician Encounter [facility] Date(s): 06/12/23 - 06/17/[address] [address]- Discharge Disposition: A-Transfer VNA/Home Health Attending Physician: Otoniel Schaefer MD Admitting Physician: Hai Doan MD Referring Physician: Not on Staff, Referring [...] 12:27:00 EST... Start Date: 06/29/22 Status: Ordered acetaminophen 325 mg oral tablet 975 mg, By Mouth, 3 times a day, Can use over the counter Tylenol or substitute, Refills 0, Maintenance, 06/17/23 8:54:00 EST, Partial fill upon patient request if the prescription is for a schedule II opioid drug. Start Date: 06/17/23 Status: Ordered Acetaminophen Tablet 975 mg, Tablet, By Mouth, Temperature Greater than 100.5, 06/17/23 9:00:00 EST Start Date: 06/17/23 Stop Date: 06/17/23 Status: Completed acitretin 10 mg oral capsule TAKE 1 1 CAPSULE DAILY Start Date: 05/17/22 Status: Ordered Air Mattress Air Mattress, See Instructions, # 1 each, Refills 0, Tot. Refills 0, Maintenance, Use daily to prevent progression of pressure ulcer. Z86.73, L89.159. Fax to [facility], 06/12/23 6:47:00 EST, Supply, 193, cm, 06/01/23 9:54:00 EST, Height, 90.9, kg, 06/01/23... Start Date: 06/12/23 Status: Ordered amLODIPine 5 mg oral tablet 5 mg, Tablet, By Mouth, 06/17/23 9:00:00 EST Start Date: 06/17/23 Stop Date: 06/17/23 Status: Completed amLODIPine 5 mg oral tablet 5 mg, 1, tablet, By Mouth, Daily, # 30 tablet, Refills 0, Tot. Refills 0, Maintenance, 06/17/23 8:53:00 EST, Route to Pharmacy Electronically, [facility], Partial fill upon patient request if the prescription is for a schedule II opioid... Start Date: 06/17/23 Status: Ordered baclofen 20 mg oral tablet 20 mg, 1, tablet, By Mouth, 4 times a day, # 120 tablet, Refills 0, Tot. Refills 0, Maintenance, 06/03/23 13:25:00 EST, Route to Pharmacy Electronically, [facility], 193, cm, 06/01/23 9:54:00 EST, Height, 90.9, kg, 06/01/23 9:54:00 EST,... Start Date: 06/03/23 Status: Ordered CHUX CHUX, See Instructions, # [...] hidradenitis L73.2 FunctionalIncontinence R39.81 Please fax to [facility] Start Date: 06/12/23 Status: Ordered duloxetine 30 mg oral enteric coated capsule 1 capsule, By Mouth, Daily, # 30 capsule, 5 Refills, Maintenance, 06/12/23 6:45:00 EST, [facility]/pharmacy #[id number], 193, cm, 06/01/23 9:54:00 EST, Height, 90.9, kg, 06/01/23 9:54:00 EST, Dry Weight Start Date: 06/12/23 Status: Ordered Eliquis 5 mg oral tablet See Instructions, TAKE 1 TABLET BY MOUTH TWICE A DAY, # 60 tablet, 11 Refills, Maintenance, 06/12/23 6:31:00 EST, [id number], 193, cm, 06/01/23 9:54:00 EST, Height, 90.9, kg, 06/01/23 9:54:00 EST, Dry Weight Start Date: 06/12/23 Status: Ordered ferrous sulfate 325 mg oral tablet 1 tablet = 325 mg, By Mouth, Daily, TAKE 1 TABLET BY MOUTH EVERY DAY, # 30 tablet, 0 Refills, Maintenance, 06/12/23 6:46:00 EST, Tablet, [facility]/pharmacy #[id number], Partial fill upon patient request [...] 06/12/23 6:46:00 EST, Route to Pharmacy Electronically, [facility]/pharmacy #[id number], Partial fill upon... Start Date: 06/12/23 Status: Ordered gabapentin 300 mg oral capsule 600 mg, Capsule, By Mouth, 06/17/23 9:00:00 EST Start Date: 06/17/23 Stop Date: 06/17/23 Status: Completed gabapentin 600 mg oral tablet 1 tablet = 600 mg, By Mouth, 3 times a day, Further refills from PCP, # 30 tablet, 0 Refills, Maintenance, 06/17/23 8:55:00 EST, Tablet, [facility], Partial fill upon patient request ifthe prescription is for a schedule II opioid drug.,... Start Date: 06/17/23 Status: Ordered Hospital bed Hospital bed, See Instructions, # 1 each, Refills 0, Tot. Refills 0, Maintenance, Use as needed daily, 06/12/23 6:47:00 EST, Supply, 193, cm, 06/01/23 9:54:00 EST, Height, 90.9, kg, 06/01/23 9:54:00 EST, Dry Weight Start Date: 06/12/23 Status: Ordered hydroxyurea 500 mg oral capsule = 500 mg, By Mouth, Daily, 0 Refills, Maintenance, 06/17/23 8:53:00 EST, Capsule, Partial fill uponpatient request if the prescription is for a schedule II opioid drug. Start Date: 06/17/23 Status: Ordered large gauze large gauze, See Instructions, # 100 each, Refills 0, Tot. Refills 0, Maintenance, L73.2 HS, 06/12/23 6:31:00 EST, Supply, 193, cm, 06/01/23 9:54:00 EST, Height, 90.9, kg, 06/01/23 9:54:00 EST, Dry Weight Start Date: 06/12/23 Status: Ordered omeprazole 40 mg oral enteric coated capsule 1 capsule, By Mouth, Daily, # 30 capsule, 5 Refills, Maintenance, 08/13/22 15:28:00 EDT, [facility]/pharmacy #[id number], 193.04, cm, 07/23/22 14:07:00 EDT, Height, 99.6, kg, 06/06/22 18:00:00 EST, Dry Weight Start Date: 08/13/22 Status: Ordered oxyCODONE 10 mg oral tablet 1 tablet = 10 mg, By Mouth, Every 6 hours, PRN as needed for pain, for 5 days, # 20 tablet, 0 Refills, Acute 06/22/23 8:55:00 EST, 06/17/23 8:55:00 EST, Tablet, [facility], Partial fillupon patient request if the prescription is for a s... Start Date: 06/17/23 Stop Date: 06/22/23 Status: Ordered oxyCODONE 5 mg oral tablet 10 mg, Tablet, By Mouth, Every 6 hours, PRN for Pain , Moderate, hold for sedation, RR under 14 of SBP less than 100, Routine, 06/13/23 8:02:00 EST Start Date: 06/13/23 Stop Date: 06/17/23 Status: Discontinued Right ankle & foot orthosis Right ankle & foot orthosis, See Instructions, # 1 each, Refills 1, Tot. Refills 1, Maintenance, Please dispense 1 right ankle and foot othosis Dx: R29.898, R26.81, M25.373 Length of need: 99 months Number to fax to: [phone], 01/06/21 13:10:00 E... Start Date: 01/06/21 Status: Ordered rollator walker rollator walker, See Instructions, # 1 each, Refills 0, Tot. Refills 0, Maintenance, use daily as needed, 06/12/23 6:48:00 EST, Supply, 193, cm, 06/01/23 9:54:00 EST, Height, 90.9, kg, 06/01/23 9:54:00 EST, Dry Weight Start Date: 06/12/23 Status: Ordered tiZANidine 2 mg oral tablet [...] apex Confirmed Active [facility] Care Management, Bank President Carmen Elizabeth [phone] Confirmed Active Therapeutic drug monitoring Confirmed Active Peripheral neuropathy Confirmed Active Right spastic hemiparesis Confirmed Active Spasticity Confirmed Active Tobacco dependence Confirmed Active Results Radiology Reports * Exam Date Time Procedure Performing Provider Status 06/15/23 12:[address] Pelvis W/ Contrast Bernadine De León; Chaitanya (Verified) Notes: (CT Pelvis W/ Contrast) Reason For Exam: right buttock hidradenitis, ?collection abscess;Pain RESULT: CT Pelvis W/ Contrast CT Pelvis W/ Contrast Reason: Pain; right buttock hidradenitis, ?collection abscess; Clinical Question(s): Abscess; OrderComment: TECHNIQUE: Helical CT with IV contrast formatted in 3 planes. 100 cc of Omnipaque 300 was administered intravenously. Enteric contrast not administered. Automatic tube modulation and/or iterative dose reconstruction were used to optimize exposure parameters. CTDIvol Body: 9.60 mGy, DLP Body: 375 mGy*cm. COMPARISON: 05/31/2023 CT pelvis. 01/21/[address]22 CT pelvis. 09/06/2020 CT of the abdomen and pelvis. FINDINGS: Low Alt[employer] View Findings, Lines and Tubes: None. Visualized bowel: Visualized small bowel loops are normal. Moderate stool within the visualized rectum and colon. Appendix: No evidence of acute appendicitis. Bladder: Unremarkable. Reproductive organs: Prostate is normal. The perineum is normal. Peritoneum and retroperitoneum: No ascites or pneumoperitoneum. No omental or mesenteric lesions. Lymph nodes: Multiple enlarged right inguinal lymph nodes measuring up to 2.3 cm, similar to prior studies. Blood vessels: Normal. No evidence of venous thrombosis. Pelvic soft tissues: Severe skin thickening and irregularity, as well as mild underlying subcutaneous fat induration involving the right gluteal region extending into the right proximal thigh, partially imaged, similar to prior studies dating back to at least 09/06/2020. No discrete fluid collections is seen within the imaged portions of this process. Mild skin thickening and subcutaneous induration also noted within the left gluteal region, also similar to prior studies. Bones: No acute abnormality. Dysmorphic left femoral head. Prior left hip ORIF. IMPRESSION: 1. Severe skin thickening and irregularity as well as mild underlying subcutaneous fat and induration again seen in the right gluteal region extending to the right proximal thigh, partially imaged, but overall similar in appearance to prior studies dating back to at least 09/06/2020. Mild skin thickening in the medial aspect of the left gluteal region, also unchanged. No discrete abscess is seen within the imaged portions of this process. 2. Multiple enlarged right inguinal lymph nodes measuring up to 2.3 cm, similar to prior studies. WSN: [id number] Ordering Physician: Suma Brand Dictated By: Lázaro Ann MD Dictated Date/Time: 06/15/23 12:38 p Reviewed By: Lázaro Ann MD Signed By: Lázaro Ann MD Signed Date/Time: 06/15/23 12:38 pm Transcribed By: ZEHRA Transcribed Date/Time: 06/15/23 12:30 pm Vital Signs Most recent to oldest [Reference Range]: 1 2 3 4 Height 190 cm (06/17/23 10:57 AM) 190 cm (06/17/23 7:42 AM) 190 cm (06/16/23 3:39 PM) Weight 90.9 kg (06/13/23 1:41 PM) Oxygen Saturation [94-100 %] 100 % (06/17/23 10:57 AM) 100 % (06/17/23 7:42 AM) 100 % (06/17/23 3:17 AM) Pulse Rate [55-90 bpm] 61 bpm (06/17/23 10:57 AM) 54 bpm *L* (06/17/23 7:42 AM) 75 bpm (06/17/23 3:17 AM) Body Mass Index [18.5-24.99 kg/m2] 25.18 kg/m2 *H* (06/13/23 1:41 PM) Blood Pressure [90-138/55-84 mm Hg] 111/62mm Hg (06/17/23 10:57 AM) 110/59mm Hg (06/17/23 8:53 AM) 110/59mm Hg (06/17/23 7:42 AM) Respiratory Rate [16-30 br/min] 18 br/min (06/17/23 10:57 AM) 18 br/min (06/17/23 9:58 AM) 18 br/min (06/17/23 9:52 AM) 18 br/min (06/17/23 9:52 AM) Temperature [96.8-100.4 DegF] 98.2 DegF (06/17/23 10:57 AM) 98.2 DegF (06/17/23 7:42 AM) 98.1 DegF (06/17/23 3:17 AM) Mode of Delivery (Oxygen) Room air (06/17/23 10:57 AM) Room air (06/17/23 7:42 AM) Room air (06/17/23 3:17 AM) Blood pressure sites Arm, right (06/17/23 10:57 AM) Arm, left (06/17/23 7:42 AM) Arm, left (06/17/23 3:17 AM) Temperature Route Oral (06/17/23 10:57 AM) Oral (06/17/23 7:42 AM) Oral (06/17/23 3:17 AM) Dry Weight 90.9 kg (06/13/23 1:41 PM) Social History Social History Type Response Smoking Status 5-9 cigarettes (betw een 1/4 to 1/2 pack)/day in last 30 days entered on: 05/16/22 Sex History and physical note * Sumanth Solis MD: PERFORM Event Display: History and Physical Hospital Authored Date: Patient: ??ERNESTO MCQUEEN ? Age:??38 Years?Sex:??Male?:??1985?? Chief Complaint/Reason for Consultation Coming from home, reports R buttock pain. Pain has been constant since February. Had surgery in February. Was on PO Oxy since surgery with no good effect, now on Fentanyl patch with no good efffect. GCS 15, diff to ambulate. Hx stroke wioth RT sided residua History of Present Illness 38-year-old??male with PMH of left ICA stroke with residual right-sided spastic hemiparesis (on baclofen) and dysarthria; mural thrombus of cardiac apex on Eliquis; severe hydradenitis suppurativa s/p excision of left buttock plastic surgery, follows with dermatology outpatient; PATY; thrombocytosis; chronic pain syndrome on oxycodone; HTN; depression;??presented to the emergency dept for right buttocks pain. ?? Pt with hx of hidraenidits. He has multiple areas draining from the right buttocks. This has been ongoing for many yrs but worse since Feb. Was recently on Doxycycline but per his mother he completedthe Rx. Does not take other immunomodulators. Denies fever/chills. Has ongoing pain, unchanged. Hasongoing discharge, unchanged. Has been seen in ED 4 times in the past few weeks for same needing pain medication. He currently is using a Fentanyl patch without relief. Previously was taking 10mg Oxycodone with some improvement. has not seen pain management. Followed by wound care, visiting RN or his mother change the dressings daily. Is followed by [facility] with plan for surgery. Previously had same on the left, had procedure down, awaiting the left buttocks to heal. Main concern today is pain control, other symptoms appear unchanged. ? Review of Systems Negative: Constitutional, Eye, Skin, Head/Neck, ENMT, Respiratory, Cardio, Gastrointestinal, Breast, Gynecologic, Genitourinary, Endocrine, Muscoloskeletal, Immunologic, Hematologic, Lymphatic, Neurologic, Psych reviewed and negative except as noted in HPI.?? Objective ? Vital Signs?? Temperature: 98.2 DegF (06/13/23 06:26:00) Temperature Route: Oral (06/13/23 06:26:00) Pulse Rate:??50 bpm??Low (06/13/23 06:26:00) Respiratory Rate: 17 br/min (06/13/23 10:02:00) Vented: No (06/13/23 06:26:00) Systolic Blood Pressure: 115 mm Hg (06/13/23 10:02:00) Diastolic Blood Pressure: 78 mm Hg (06/13/23 10:02:00) Pulse Pressure: 75 mm Hg (06/13/23 06:26:00) Oxygen Saturation: 100 % (06/13/23 06:26:00) Mode of Delivery (Oxygen): Room air (06/13/23 06:26:00) Early Warning Score: 1 (06/13/23 10:03:32) ? Physical Exam General: ??Alert.?? Skin:Warm, dry, intact, The left buttocks has 1 large wound. ??The right buttocks has multiple areas of hidradenitis suppurativa with thick white discharge. ??No surrounding erythema, diffuse tenderness. ?? Eye:Normal conjunctiva.?? Cardiovascular: ??Regular rate and rhythm.?? Respiratory: ??Lungs are clear to auscultation, respirations are non-labored. ?? Gastrointestinal: ??Soft, Nontender. ?? Genitourinary: ??Normal external genitalia, no scrotal swelling or abscesses noted . ?? Neurological: ??right sided deficit, some dysarthria .?? Psychiatric: ??Cooperative.?? Assessment/Plan Diagnoses 1. ??Chronic pain ??(G89.29) 2. ??History of ischemic stroke ??(Z86.73) 3. ??Wound of buttock ??(T00.364W) 4. ??Hidradenitis suppurativa ??(L73.2) ?? 38-year-old??male with PMH of left ICA stroke with residual right-sided spastic hemiparesis (on baclofen) and dysarthria; mural thrombus of cardiac apex on Eliquis; severe hydradenitis suppurativa s/p excision of left buttock plastic surgery, follows with dermatology outpatient; PATY; thrombocytosis; chronic pain syndrome on oxycodone; HTN; depression;??presented to the emergency dept for right buttocks pain. ?? Wound of buttock ??(Y36.779V) Hidradenitis suppurativa ??(L73.2): He does not have any leukocytosis, does not appear to be septic, no fever. Not on an antibiotic as outpatient. Mostly presented??today??because??he does not have any??pain medication at home??and??pain is getting out of control. Has been seen in ED 4 times in the past few weeks for same needing pain medication. He currently is using a Fentanyl patch without relief. Previously was taking 10mg Oxycodone with some improvement. has not seen pain management. Followed by wound care, visiting RN or his mother change the dressings daily. Is followed by [facility] with plan for surgery in the future. He was given 1 dose of vancomycin in the ER however I do not think any further antibiotic is necessary. Currently pain is well-controlled with oxycodone 10 mg every 6 as needed. Eventually this patient need to see??[facility] as outpatient. Reports fentanyl patch does not work for him anymore. Wound care consult requested. Follow wound care in [facility]??and might undergo??for potential plastic surgery in the near future. ?? Chronic pain ??(G89.29): Oxycodone 10 mg every 6 as needed ordered. Reports fentanyl patch does not work anymore for him. ?? Iron deficiency anemia (D50.9):??--Recently done iron studies showed TSAT 7%, serum iron 16, ferritin 39; normal folate and vitamin B12 levels. Hemoglobin iron deficit??to achieve hemoglobin of 12,??1000 mg Continue folic acid ?? Mural thrombus of cardiac apex (I51.3):??Continue home Eliquis History of ischemic stroke (Z86.73):On eliquis. Right spastic hemiparesis (G81.11):?? Spasticity (R25.2):??-??Continue home scheduled baclofen; as needed tizanidine ?? Hypertension (I10):??-??Continue home amlodipine Peripheral neuropathy (G62.9):??-??Continue home gabapentin GERD (gastroesophageal reflux disease) (K21.9):??-??Continue home PPI Depression (F32.A):??-??Continue home?? duloxetine ?? Thrombocytosis: Unclear etiology recently started on Hydrea will continue and follow up with outpatient provider. ?? VTE Prophylaxis:??On eliquis. ?VTE Prophylaxis Assessment:??VTE Prophylaxis Ordered ?? Code Status:??Full. ?Order Code Status:??Code Status Ordered ?This note was created using Work[employer] software. ??There might be some unwanted typographical errors. ? Histories Allergies Allergies ?(Active and Proposed Allergies Only) NKA? (Severity: Unknown severity, Onset: Unknown) ? Past Medical History/Problem List Active Problems??(18) [facility] Bank President Carmen Elizabeth [phone] Chronic ischemic left ICA stroke Chronic pain Controlled substance agreement signed 10/16/22 Depression GERD (gastroesophageal reflux disease) Hidradenitis suppurativa History of ischemic stroke Hypertension Insomnia Iron deficiency anemia Mural thrombus of cardiac apex Peripheral neuropathy Right spastic hemiparesis Spasticity Therapeutic drug monitoring Tobacco dependence Wound of buttock ? Social History Alcohol Details:??Use: Current. ??Other: [...] Mouth?Daily?for 30?Days apixaban (Eliquis 5 mg oral tablet)?See Instructions?TAKE 1 TABLET BY MOUTH TWICE A DAY Baclofen (baclofen 20 mg oral tablet)?20?Milligram?1?tablet?By Mouth?4 times a day Clindamycin Topical (clindamycin 1% topical gel)?1?applicator?Topically?2 times a day Duloxetine (duloxetine 30 mg oral enteric coated [...] M25.373Length of need: 99 monthsNumber to fax to:[phone] Durable Medical Equipment (3 in 1 commode)?See Instructions?use as needed to prevent fall. Diagnosis: Stroke, Impaired Mobility. ICD10 I63.9, ICDR26.2.KRISSY 99for PCP Tanja Fuchs to [facility] Durable Medical Equipment (transfer tub bench)?See Instructions?use as needed to prevent fall. Diagnosis: Stroke, Impaired Mobility. ICD10 I63.9, ICDR26.2.KRISSY 99for PCP Tanja Fuchs to [facility] Durable Medical Equipment (CHUX)?See Instructions?2 per dayFunctional Incontinence R39.81 Durable Medical Equipment (Diapers, adult extra Large)?See Instructions?2 per dayChronic drainage, bleeding of buttocks lesions due to severe hidradenitis L73.2Functional Incontinence R39.81 Please fax to [facility] Durable Medical Equipment (large gauze)?See Instructions?L73.2 HS Durable Medical Equipment (Air Mattress)?See Instructions?Use daily to prevent progression ofpressure ulcer. Z86.73, L89.159. Fax to [facility] Durable Medical Equipment (Hospital bed)?See Instructions?Use as needed daily Durable Medical Equipment (rollator walker)?See Instructions?use daily as needed Fentanyl (fentanyl 12 mcg/hr transdermal film, extended release)?1?patch(es)?Topically?Every 72 hours Ferrous Sulfate (ferrous sulfate 325 mg oral tablet)?1?tab(s)?325?Milligram?By Mouth?Daily?TAKE 1 TABLET BY MOUTH EVERY DAY NEEDED Folic Acid (folic acid 1 mg oral [...] upto 4 times a day.?Pain , Severe Oxycodone (oxyCODONE 5 mg oral tablet)?10?Milligram?2?tablet?By Mouth?Every 6 hours?as needed?as needed for pain Tizanidine (tiZANidine 2 mg oral tablet)?4?Milligram?2?tablet?By Mouth?Every 8 hours?as needed?as needed for muscle spasm ? Results Recent Labs BLOOD COUNT & DIFF WBC 10.3 k/mm3 ()?? 06/12/2023 23:40 RBC 3.06 m/mm3 (Low)?? 06/12/2023 23:40 Hgb 7.0 Gm/dL (Low)?? 06/12/2023 23:40 Hct 24.3 % (Low)?? 06/12/2023 23:40 MCV 79.4 femtoliters (Low)?? 06/12/2023 23:40 MCH 22.9 pg (Low)?? 06/12/2023 23:40 MCHC 28.8 g/dL (Low)?? 06/12/2023 23:40 Platelet Count 872 k/mm3 (High)?? 06/12/2023 23:40 RDW-SD 55.8 femtoliters (High)?? 06/12/2023 23:40 MPV 8.1 femtoliters (Low)?? 06/12/2023 23:40 Nucleated RBC (Automated) 0.0 #/100 WBC'S ()?? 06/12/2023 23:40 Abs. NRBC 0.0 k/mm3 ()?? 06/12/2023 23:40 Abs. Neut 6.7 k/mm3 ()?? 06/12/2023 23:40 Abs. Lymph 2.5 k/mm3 ()?? 06/12/2023 23:40 Abs. [place] 0.9 k/mm3 ()?? 06/12/2023 23:40 Abs. Eo 0.1 k/mm3 ()?? 06/12/2023 23:40 Abs. Baso 0.0 k/mm3 ()?? 06/12/2023 23:40 Neut % 65.1 % ()?? 06/12/2023 23:40 Lymph % 24.5 % ()?? 06/12/2023 23:40 [place] % 8.7 % ()?? 06/12/2023 23:40 Eos % 0.9 % ()?? 06/12/2023 23:40 Baso % 0.4 % ()?? 06/12/2023 23:40 Imm Gran 0.4 % ()?? 06/12/2023 23:40 Abs. Imm Gran 0.0 k/mm3 ()?? 06/12/2023 23:40 ?? CHEM GENERAL Sodium 136 mmol/L ()?? 06/12/2023 23:40 Potassium 4.7 mmol/L ()?? 06/12/2023 23:40 Chloride 101 mmol/L ()?? 06/12/2023 23:40 Bicarbonate Level 27 mmol/L ()?? 06/12/2023 23:40 Anion Gap 8 ()?? 06/12/2023 23:40 Glucose Level 106 mg/dL (High)?? 06/12/2023 23:40 BUN 13 mg/dL ()?? 06/12/2023 23:40 Creatinine-Blood 0.7 mg/dL ()?? 06/12/2023 23:40 Estimated GFR Creatinine 122 ML/MIN/1.73 M2 ()?? 06/12/2023 23:40 Lactate 1.0 mmol/L ()?? 06/12/2023 23:40 C-Reactive Protein 8.9 mg/dL (High)?? 06/12/2023 23:40 ?? HEME OTHER Sed Rate 85 mm/hr (High)?? 06/12/2023 23:40 ? Urinalysis?? No qualifying data available. ?? Hospital Progress note * Pat BUSTAMANTE, Lynn: PERFORM, SIGN, VERIFY Event Display: Progress Note Hospital Authored Date: Patient: ERNESTO MCQUEEN Age: 38 years Sex: Male : 1985 Associated Diagnoses: None Author: Pat BUSTAMANTE, Lynn Findings Problem Related to Alteration in Comfort : Alteration in Comfort/new 06/17/2023 4:00 EST Alteration in Comfort Related to Disease process, Other: Pain management Goals & Outcomes: Comfort Pt will report [...] BH Goals/Interventions, Comfort Yes Comfort, Problem Start 06/13/2023 16:51 Reviewed plan with, Comfort Patient Patient Progression, Comfort Pt progressing according to plan Comfort, Problem Ongoing Yes . Alteration in Integumentary : Alteration in Integumentary/new 06/17/2023 4:00 EST Alteration in Integumentary Related to Other: lesions ? r/t Hidrodenitis suppurativa Goals & Outcomes, Integumentary Nutritional intake is [...] barrier cream/ointment if pt's skin is frequently moist BH Goals/Interventions, Integumentary Yes Integumentary, Problem Start 06/13/2023 16:50 Reviewed plan with, Integumentary Patient Patient Progression, Integumentary Patient not progressing according to plan . Nursing Data Cardiac Data. 06/16/2023 21:00 EST Nail Bed Color, Fingers Alcan Border Nail Bed Color, Toes Alcan Border Skin Temperature Upper Extremities Warm Skin Temperature Lower Extremities Warm Capillary Refill < 3 seconds Radial Pulse, Left Normal Radial Pulse, Right Normal Dorsalis Pedis Pulse, Left Normal Dorsalis Pedis Pulse, Right Normal desk monitor No Cardiovascular WNL except . Integumentary Data. : Integumentary Data. 06/16/2023 21:00 EST Skin Abnormality Other: Pt has multiple wounds Skin Integrity Not intact Sensory Perception Slightly limited Integumentary WNL except . Vital Signs : VITAL SIGNS SECTION 06/17/2023 3:17 EST Temperature 98.1 DegF Temperature Route Oral Pulse Rate 75 bpm Respiratory Rate 18 br/min Systolic Blood Pressure 120 mm Hg Diastolic Blood Pressure 66 mm Hg Blood pressure sites Arm, left Pulse Pressure 54 mm Hg Oxygen Saturation 100 % Mode of Delivery (Oxygen) Room air . Evaluation Pt. is alert and orientated x 4. calm and cooperative with care. Pt denies any sob, headache or chest pain. Pt. c/o pain 10/10 on the wound site, given pain medication with effect. Pt requested that wound be changed. I explained to the patient that wound should be changed every other day, but he insisted claiming that he was in pain and the dressing change helps with the pain. Wound with sanguineous and purulent drainage. Wound dressing done as per order. see full assessment in cis will continue to monitor and report any changes. . * Silvano PAGAN, Otoniel Lopez: PERFORM Event Display: Progress Note Hospital Authored Date: [id number] Patient: ??ERNESTO MCQUEEN ? Age:??38 Years?Sex:??Male?:??1985?? Subjective ? -Seen and examined at bedside, still endorsing pain, gabapentin dose increased to 600 Mg 3 times daily, Tylenol 1000 mg 3 times daily scheduled -Oxycodone will not be increased any further since limitations at home which can be prescribed at time of discharge -Will confirm PCP appointment and discharge patient home 2/5 with enough supply until upcoming PCP appointment -Fortunately CT pelvis shows no signs of active infection, with wound looking clean as well, antibiotics currently not indicated ? Review of Systems Other than those positives as noted above, the remaining comprehensive 14-point review of systems is negative. Objective Vital Signs?? Temperature: 98.1 DegF (06/16/23 07:27:00) Temperature Route: Oral (06/16/23 07:27:00) Pulse Rate: 70 bpm (06/16/23 07:27:00) Respiratory Rate: 20 br/min (06/16/23 09:11:00) Systolic Blood Pressure: 107 mm Hg (06/16/23 08:11:00) Diastolic Blood Pressure: 68 mm Hg (06/16/23 08:11:00) Blood pressure sites: Arm, left (06/16/23 07:27:00) Mean Arterial Pressure: 81 mm Hg (06/16/23 07:27:00) Pulse Pressure: 39 mm Hg (06/16/23 07:27:00) Oxygen Saturation: 100 % (06/16/23 07:27:00) Mode of Delivery (Oxygen): Room air (06/16/23 07:27:00) Early Warning Score: 1 (06/16/23 10:16:32) ? Intake/Output? 06/12 20:32 06/16 07:00 02 07:00 06/14 07:00 02 07:00 ?? 06/16 13:26 06/16 13:26 06/16 06:59 06/15 06:59 06/14 06:59 Intake ? 1640 ?120 ?240 ?600 ?480 Output ? 2250 ?300 ?725 ?575 ?650 Net Total ? -610 ? -180 ? -485 ? 25 ? -170 ? Urine Count ?2 ?0 ?0 ?1 ?1 ? Physical Exam General: Awake alert no distress Respiratory: Clear to auscultation bilaterally Cardiac: Regular rate rhythm no murmurs Abdomen: Soft nontender Extremities:??Good perfusion Skin: Right buttock with clean dressing,??did not wanted to be examined Neuro: Alert and oriented??x 4,??has known chronic right hemiparesis with right hand contracture and some dysarthria/aphasia _ Home Medications Acitretin (acitretin 10 mg oral capsule)?TAKE 1 CAPSULE EVERY OTHER DAY FOR NEXT 2 WEEKS THEN 1 CAPSULE DAILY apixaban (Eliquis 5 mg oral tablet)?See Instructions?TAKE 1 TABLET BY MOUTH TWICE A DAY Baclofen (baclofen 20 mg oral tablet)?20?Milligram?1?tablet?By Mouth?4 times a day Clindamycin Topical (clindamycin 1% topical gel)?1?applicator?Topically?2 times a day Duloxetine (duloxetine 30 mg oral enteric coated [...] M25.373Length of need: 99 monthsNumber to fax to:[phone] Durable Medical Equipment (3 in 1 commode)?See Instructions?use as needed to prevent fall. Diagnosis: Stroke, Impaired Mobility. ICD10 I63.9, ICDR26.2.KRISSY 99for PCP Tanja Fuchs to [facility] Durable Medical Equipment (transfer tub bench)?See Instructions?use as needed to prevent fall. Diagnosis: Stroke, Impaired Mobility. ICD10 I63.9, ICDR26.2.KRISSY 99for PCP Tanja Fuchs to [facility] Durable Medical Equipment (CHUX)?See Instructions?2 per dayFunctional Incontinence R39.81 Durable Medical Equipment (Diapers, adult extra Large)?See Instructions?2 per dayChronic drainage, bleeding of buttocks lesions due to severe hidradenitis L73.2Functional Incontinence R39.81 Please fax to [facility] Durable Medical Equipment (large gauze)?See Instructions?L73.2 HS Durable Medical Equipment (Air Mattress)?See Instructions?Use daily to prevent progression ofpressure ulcer. Z86.73, L89.159. Fax to [facility] Durable Medical Equipment (Hospital bed)?See Instructions?Use as needed daily Durable Medical Equipment (rollator walker)?See Instructions?use daily as needed Ferrous Sulfate (ferrous sulfate 325 mg oral tablet)?1?tab(s)?325?Milligram?By Mouth?Daily?TAKE 1 TABLET BY MOUTH EVERY DAY NEEDED Folic Acid (folic acid 1 mg oral tablet)?1?Milligram?1?tablet?By Mouth?Daily?TAKE 1 TABLET BY MOUTH EVERY DAY THAT YOU ARE NOT TAKING METHOTREXATE Gabapentin (gabapentin 300 mg oral capsule)?300?Milligram?1?capsule?By Mouth?3 times a day Omeprazole (omeprazole 40 mg oral enteric coated capsule)?1?capsule?By Mouth?Daily Tizanidine (tiZANidine 2 mg oral tablet)?4?Milligram?2?tablet?By Mouth?Every 8 hours?as needed?as needed for muscle spasm ? Inpatient Medications Medications (20) Active SCHEDULED: (11) Acetaminophen 325 mg Tablet (Acetaminophen Tablet) ??975 mg, By Mouth, 3 times a day Amlodipine 5 mg Tablet (amLODIPine 5 mg oral tablet) ??5 mg, By Mouth, Daily Apixaban 5 mg Tablet (Eliquis) ??5 mg, By Mouth, 2 times a day Baclofen 10 mg Tablet (baclofen 10 mg oral tablet) ??20 mg, By Mouth, 4 times a day Duloxetine 30 mg Capsule (Duloxetine) ??30 mg, By Mouth, Daily Folic Acid 1 mg Tablet (folic acid 1 mg oral tablet) ??1 mg, By Mouth, Daily Gabapentin 300 mg Capsule (gabapentin 300 mg oral capsule) ??600 mg, By Mouth, 3 times a day Hydroxyurea 500 mg Capsule (hydroxyurea 500 mg oral capsule) ??500 mg, By Mouth, Daily NaCl 0.9% Flush 3ml (NaCL 0.9% Flush) ??3 mL, IV Push, Every 8 hours Pantoprazole 20 mg EC Tablet (Protonix 20 mg oral delayed release tablet) ??20 mg, By Mouth, Daily Vashe Wound Care Emollient/Cleanser (Vashe Topical Solution) ??475 mL, Topically, Every other day CONTINUOUS: (0) PRN: (9) Dextromethorphan-Guaifenesin 20 mg-200 mg/10 mL Liqu UD (Robitussin DM Liquid) ??10 mL, By Mouth, Every 4 hours Docusate Sodium 100 mg Capsule (Docusate Sodium Capsule) ??100 mg 1 capsule, By Mouth, 2 times a day Melatonin 3 mg Tablet (Melatonin Tablet) ??3 mg, By Mouth, Daily at bedtime NaCl 0.9% Flush 3ml (NaCL 0.9% Flush) ??3 mL, IV Push, Every 8 hours OxyCODONE 5 mg IR Tablet (oxyCODONE 5 mg oral tablet) ??10 mg, By Mouth, Every 6 hours Polyethylene Glycol 17 Gm Powder (MiraLax Powder) ??17 Gm 1 pack/packet, By Mouth, Daily Senna Tablet ??8.6 mg 1 tablet, By Mouth, 2 times a day Simethicone 80 mg Chewable Tablet (Simethicone Tablet) ??80 mg, Chew, 3 times a day Tizanidine 4 mg Tablet (tiZANidine 4 mg oral tablet) ??4 mg, By Mouth, Every 8 hours ? Results Abnormal Labs No lab data available. ?? Assessment/Plan ? 38-year-old??male with PMH of left ICA stroke with residual right-sided spastic hemiparesis (on baclofen) and dysarthria; mural thrombus of cardiac apex on Eliquis; severe hydradenitis suppurativa s/p excision of left buttock plastic surgery, follows with dermatology outpatient; PATY; thrombocytosis; chronic pain syndrome on oxycodone; HTN; depression;??presented to the emergency dept for right buttocks pain. ??Evaluated by wound care nurse and concerned ? Wound of buttock ??(S37.270S) on right side : concern for infection Hidradenitis suppurativa ??(L73.2): Mild leukocytosis today, no fever, no septic Not on an antibiotic as outpatient. Presented to the hospital due to uncontrolled pain??after running out of p.o. oxycodone Has been seen in ED 4 times in the past few weeks for same needing pain medication. He currently was using a Fentanyl patch without relief. Previously was taking 10mg Oxycodone with some improvement. has not seen pain management. Followed by wound care, visiting RN or his mother change the dressings daily. Is followed by [facility] with plan for surgery in the future. ?? Plan Will discontinue fentanyl patch as it was not effective according to the patient Continue oxycodone 10 mg every 6 hours as needed for pain control Received 1 dose of IV vancomycin in the ER, we will hold off??IV antibiotic??until seen by surgery team, possibly obtain culture.?? Low threshold to start if??fever, significant leukocytosis, hemodynamic instability Patient has PCP appointment??with On 06/21/2023; please ensure patient has adequate??supply of pain medication??upon discharge??to avoid ED visit for pain control Follow wound care in [facility]??and might undergo??for potential plastic surgery in the near future. ?? -Appreciate surgical team input, no current intervention recommended, [facility]. -Appreciate wound care team involvement as well, wound care will continue with home VNA ?? -Seen and examined at bedside, still endorsing pain, gabapentin dose increased to 600 Mg 3 times daily, Tylenol 1000 mg 3 times daily scheduled -Oxycodone will not be increased any further since limitations at home which can be prescribed at time of discharge -Will confirm PCP appointment and discharge patient home 06/17 with enough supply until upcoming PCP appointment -Fortunately CT pelvis shows no signs of active infection, with wound looking clean as well, antibiotics currently not indicated ?? Chronic pain ??(G89.29): Oxycodone 10 mg every 6 as needed ordered. DC fentanyl patch as it is not effective. ?? Iron deficiency anemia (D50.9):??--Recently done iron studies showed TSAT 7%, serum iron 16, ferritin 39; normal folate and vitamin B12 levels. Hemoglobin iron deficit??to achieve hemoglobin of 12,??1000 mg Continue folic acid ?? Mural thrombus of cardiac apex (I51.3):??Continue home Eliquis ?? History of ischemic stroke (Z86.73):On Eliquis. Right spastic hemiparesis (G81.11):?? Spasticity (R25.2):??-??Continue home scheduled baclofen; as needed tizanidine ?? Hypertension (I10):??-??Continue home amlodipine ?? Peripheral neuropathy (G62.9):??-??Continue home gabapentin ?? GERD (gastroesophageal reflux disease) (K21.9):??-??Continue home PPI ?? Depression (F32.A):??-??Continue home?? duloxetine ?? Thrombocytosis:Unclear etiology recently started on Hydrea will continue and follow up with outpatient provider. ?? VTE Prophylaxis:??On Eliquis. ? Code Status:??Full. ?? Regular diet ?? OMN:??DC tomorrow once PCP appt confirmed ?? * Nikunj Savage RN: PERFORM, SIGN, VERIFY Event Display: Progress Note Hospital Authored Date: [id number] Patient: ERNESTO MCQUEEN Age: 38 years Sex: Male : 1985 Associated Diagnoses: None Author: Nikunj Savage RN Findings Problem Related to Alteration in Comfort : Alteration in Comfort/new 06/15/2023 21:00 EST Alteration in Comfort Related to Disease [...] BH Goals/Interventions, Comfort Yes Comfort, Problem Start 06/13/2023 16:51 Reviewed plan with, Comfort Patient Patient Progression, Comfort Pt progressing according to plan Comfort, Problem Ongoing Yes . Evaluation Patient resting in bed overnight, patient reporting pain to buttock/coccyx r/t wound. Wound site assessed and dressing with draining seaping from dressing. Dresing changed. PRN oxycodone being given for pain/discomfort with good effect. Vs stable, on room air, no respiratory distress. Please see CIS for further documentation and assessment. Safety maintained, bed in locked lowet position, call mariee within reach. . Discharge Information Case Management Discharge Plan : Case Management Discharge Plan Data 06/14/2023 11:09 EST Discharge Level of Care at Discharge Homehealth/VNA Discharge VNA/Hospice/Home Care [facility] [phone] Agency Reliability Technician #1 intake Service Categories #1 Home health aide, Shelter Service Comments #1 the visiting nurse staff will call to set up a visit at your home 1-2 days after discharge Consult note * Darrel LUTZ, Mary Drew: PERFORM, MODIFY, MODIFY, MODIFY Event Display: Consultation Note Authored Date: [id number] Patient: ??ERNESTO MCQUEEN ? Age:??38 Years?Sex:??Male?:??1985?? History of Present Illness The pt is a 38-year-old??male with PMH of left ICA stroke with residual right- sided spastic hemiparesis, ??mural thrombus of cardiac apex on Eliquis, and??severe hydradenitis suppurativa s/p left buttock hydradenitis??excision (??plastic surgery at [facility] in 03/04), chonic pain disorder??who presented to [facility] with c/o??buttock pain. It appears he has had several ED visits in the past month??withsimilar??c/o pain at buttock site and need for pain medication, and two hospital admissions. He waslast discharged on 06/01 with plan for ??doxycycline x 10 weeks??and?follow-up with your dermatology and plastic surgery team in [place]. Prior to the recent ED visits,?he was reportedly in a rehab for care and management??after surgical intervention in [place] and left am[place]??to follow up with dermatology closer to home.?? His??mother has been attempting to care for the patient at home withsome visiting services. He reports he is supposed to have surgery on the wounds in the near future,states 9 days. However unclear on the details. Attempt to contact mother unsuccessful. ?? He does report constant pain in buttock area for a very long period of time, has not improved orworsened. The pain medication helps, although does not relieve the pain. He does report persistent drainage from wounds, not clear if there was a change as the wounds always leak. He is very frustrated with the wounds and management. He remains afebrile, denies fever or chills. He is tolerating diet and having bowel movements. He denies issues with urination. ??He does have difficulty with offloading given weakness, and can not tolerate laying on stomach given drooling. Otherwise denies cp, sob, n/v , URI, sick contacts. Remaining ROS negative Physical Exam Vitals & Measurements T:??97.8?F?? HR:??50??(Peripheral)?? RR:??18?? BP:??117/64?? SpO2:??100%?? HT:??190??cm?? WT:??90.9??kg?? BMI:??25.18?? General:?NAD Head; non traumatic Eye:Normal conjunctiva.?? Neck supple Cardiovascular: ??Regular rate and rhythm.?? Respiratory:?? respirations are non-labored. ??Pt on RA Gastrointestinal: ??Soft,non distended,?nontender.??no guarding or rebound tenderness Genitourinary:?no costovertebral tenderness Neurological: ??right sided weakness Psychiatric:?Slow speech, answers questions appropriately Skin:??right buttock: induration throughout. tender throughout inc near anus. multiple punctate lesions draining seropurulent output with surrounding scar tissue/hyperpigmentation. Unclear??extent of??tunneling?. + odor. Left buttock with well healing incision. no lesions appreciated. Assessment/Plan The pt is a 38-year-old??male with PMH of left ICA stroke with residual right- sided spastic hemiparesis, mural thrombus of cardiac apex on Eliquis, and??severe hydradenitis suppurativa s/p left buttock hydradenitis??excision who presented to [facility] several??times over??the past month??with c/o??right buttock pain. Currently, He is admitted to the medical service for management of hydradenitis andchronic pain. ACS/EGS surgery consulted for evaluation of buttock wounds. Upon examination, he is noted to have numerous chronic wounds which do appear to be draining. Incision and drainage is not advised at this time for the management of the hydradenitis. He does report plans for surgical intervention at [facility] with plastic surgery in the near future, given extensive??nature of disease would recommend continuing with outpatient plastic surgery follow up and management. Could consider antibiotic therapy. I did discuss synergy type bed with the RN. Consider social work to aid with psychological stress and case management for home services. Consider pain management to aid in referral to chronic pain management center/outpatient if he is not currently associated with. Continue with current wound care regimen, wound care??consulted and to follow. ? Pt discussed with Dr. Cuevas Please page [phone] with questions//concerns Problem List/Past Medical History [facility], Bank President Carmen Elizabeth [phone] Chronic ischemic left ICA stroke Chronic pain Controlled substance agreement signed 10/16/22 Depression GERD (gastroesophageal reflux disease) Hidradenitis suppurativa History of ischemic stroke Hypertension Insomnia Iron deficiency anemia Mural thrombus of cardiac apex Peripheral neuropathy Right spastic hemiparesis Spasticity Therapeutic drug monitoring Tobacco dependence Wound of buttock Procedure/Surgical History Operative procedure on hip: 2000 Home Medications Acitretin: TAKE 1 CAPSULE EVERY OTHER DAY FOR NEXT 2 WEEKS THEN 1 CAPSULE DAILY apixaban: See Instructions, TAKE 1 TABLET BY MOUTH TWICE A DAY Baclofen: 20 mg = 1 tablet, By Mouth, 4 times a day Clindamycin Topical: 1 applicator, Topically, 2 times a day Duloxetine: 1 capsule, By Mouth, Daily Durable Medical Equipment (walker with platform attached): See Instructions, Please dispense 1 (one) walker with attached platformHt: 187.6cmWt: 101.4kgDx: History of stroke - Z86.73, Right-sided weakness - R53.1,Spasticity due to old stroke - I69.398Length of need: 99months Durable Medical Equipment (Right ankle & foot orthosis): See Instructions, Please dispense 1 right ankle and foot othosisDx: R29.898, R26.81, M25.373Length of need: 99 monthsNumber to fax to: [phone] Durable Medical Equipment (3 in 1 commode): See Instructions, use as needed to prevent fall. Diagnosis: Stroke, Impaired Mobility. ICD10 I63.9, ICDR26.2.KRISSY 99for PCP Tanja Fuchs to [facility] Durable Medical Equipment (transfer tub bench): See Instructions, use as needed to prevent fall. Diagnosis: Stroke, Impaired Mobility. ICD10 I63.9, ICDR26.2.KRISSY 99for PCP Tanja Fuchs to [facility] Durable Medical Equipment (CHUX): See Instructions, 2 per dayFunctional Incontinence R39.81 Durable Medical Equipment (Diapers, adult extra Large): See Instructions, 2 per dayChronic drainage, bleeding of buttocks lesions due to severe hidradenitis L73.2Functional Incontinence R39.81 Pleasefax to [facility] Durable Medical Equipment (large gauze): See Instructions, L73.2 HS Durable Medical Equipment (Air Mattress): See Instructions, Use daily to prevent progression of pressure ulcer. Z86.73, L89.159. Fax to [facility] Durable Medical Equipment (Hospital bed): See Instructions, Use as needed daily Durable Medical Equipment (rollator walker): See Instructions, use daily as needed Ferrous Sulfate: 325 mg = 1 tablet, By Mouth, Daily, TAKE 1 TABLET BY MOUTH EVERY DAY NEEDED Folic Acid: 1 mg = 1 tablet, By Mouth, Daily, TAKE 1 TABLET BY MOUTH EVERY DAY THAT YOU ARE NOT TAKING METHOTREXATE Gabapentin: 300 mg = 1 capsule, By Mouth, 3 times a day Omeprazole: 1 capsule, By Mouth, Daily Tizanidine: 4 mg = 2 tablet, By Mouth, Every 8 hours, PRN (as needed for muscle spasm) Allergies NKA Social History Alcohol Use: Current. Other: 10 drinks per week. Electronic Cigarette/Vaping Electronic Cigarette Use: Never. Substance Abuse Use: Current. Type: Marijuana. Tobacco Use: 5-9 cigarettes (between 1/4 to 1/2 pack)/day in last 30 days. Family History Mother: Asthma Brother: Asthma Lab Results Labs Last 24 Hours BLOOD COUNT & DIFF ? Event Name?? Event Result?? Date/Time?? WBC 11.1 k/mm3??High 06/14/23 05:26:00 RBC 3.39 m/mm3??Low 06/14/23 05:26:00 Hgb 7.9 Gm/dL??Low 06/14/23 05:26:00 Hct 26.7 %??Low 06/14/23 05:26:00 MCV 78.8 femtoliters??Low 06/14/23 05:26:00 MCH 23.3 pg??Low 06/14/23 05:26:00 MCHC 29.6 g/dL??Low 06/14/23 05:26:00 Platelet Count 962 k/mm3??High 06/14/23 05:26:00 MPV 8.5 femtoliters??Low 06/14/23 05:26:00 Nucleated RBC (Automated) 0 #/100 WBC'S 06/14/23 05:26:00 ? CHEM GENERAL ? Event Name?? Event Result?? Date/Time?? Sodium 135 mmol/L 06/14/23 05:26:00 Chloride 99 mmol/L 06/14/23 05:26:00 Bicarbonate Level 27 mmol/L 06/14/23 05:26:00 Anion Gap 9 06/14/23 05:26:00 Glucose Level 109 mg/dL??High 06/14/23 05:26:00 BUN 14 mg/dL 06/14/23 05:26:00 Creatinine-Blood 0.7 mg/dL 06/14/23 05:26:00 Magnesium 2 mg/dL 06/14/23 05:26:00 ? * RyTej weinberg MD: PERFORM Event Display: Consultation Note Authored Date: [id number] I have personally seen and evaluated the patient, lab work and imaging on the day of below/above resident/PA/SHEETMETAL PATTERNMAKER note. ??I agree with the documented resident/PA/SHEETMETAL PATTERNMAKER note and plan for care, as above.? Tej Cuevas, ??, MPH, FACS Trauma, General Surgery and Surgical Critical Care?? * Zachariah Szymanski RN: PERFORM, MODIFY, SIGN, VERIFY Event Display: Consultation Note Authored Date: Patient: ERNESTO MCQUEEN Age: 38 years Sex: Male : 1985 Associated Diagnoses: None Author: Zachariah Szymanski RN bilateral buttocks 06/14/23 drainage R buttocks abscess 06/04/23 right buttock 06/14/23 R buttock probe left buttock 06/14/23 History of Presenting Problem Date of Service 06/14/2023 Reason for referral Wound: Description Location- Right buttock Etiology- Hidradenitis Suppurativa Wound Bed- multiple tunnels of fluctuant nodules with some areas of skin loss; scattered areas of scar tissue Center of Right buttock: probable full thickness opening with 2cm in depth and undermining 1.8cm at5 o'clock Edges- well defined, pinpoint in shape Drainage- copious mixed almonte/sanguinous/serous drainage ~Center of Right buttock: probable full thickness opening with large seropurulent Odor- foul Goals- antimicrobial wound care with Vashe, absorption of drainage with Aquacel, treatment of symptoms, imaging to r/o larger fluid collection and surgical consult . Wound: Description Location- Left buttock Etiology- Nonhealing surgical wound Measurements- 11cm x 3cm Wound Bed- red viable tissue with subcutaneous tissue Edges- well defined, regular, macerated with pink viable tissue Jesi Wound- neoepithelium (iliac color) Drainage- serosanguineous Odor- none No fluctuance or induration Goals- antimicrobial wound care with Vashe, absorption of drainage with Aquacel, treatment of symptoms . Wound RN consult entered to assess buttocks wounds and make topical recommendations. Patient presented with right buttock pain and was admitted for wound infection. Patient has PMH of stoke with right sided spastic hemiparesis, dysarthria, mural thrombus, severe hydradenitis s/p excision of L buttock plastic surgery (being followed by dermatology), PATY, chronic pain, HTN and depression. Upon entering the room patient is lying in bed. Wound RN role explained and patient is agreeable to assessment as well as photodocumentation. Patient is able to roll onto his left side and bilateral buttocksdressings removed and cleansed with saline for visualization of the wounds, which is described in detail above. Patient states he sees a visiting home nurse and a outpatient wound clinic for his wound care. He states he doesn't care for the wound at home but his mother performs the dressing changes. He is unable to recall what type of wound care he uses at home. During gentle probing with cotton tip applicator of his right buttock opening, purulent drainage noted with foul odor. Patient states it is painful on probing and cotton tip applicator removed. Direct care RN Estefania notified of the concerns of the wound and RN notified MD Brand. Discharge canceled and MD plan for surgery consult and im agining. Recommendations given to direct care RN and [employer] message sent to MD Tiffanie Brand as well. Recommendations: 1.) Bilateral Buttocks: Cleanse with Vashe solution. Allow to dry. Apply Aquacel AG over open areas(may treat right lateral buttock as one large wound). Cover with Mepilex dressing or DSD. cover with Tegaderm dressings to protect from incontinence. Repeat every other day and PRN for soilage Plan Time spent > 60 minutes Note * Jolie Villalobos RN: PERFORM Event Display: Discharge/Transfer Note Hospital Authored Date: [id number] Nursing Discharge Note Entered On: 06/17/2023 10:05 EST Performed On: 06/17/2023 12:15 EST by Lashonda Kulkarni RN Nursing Discharge Note 2 Discharge Time : 06/17/2023 12:15 EST Jolie Villalobos RN - 06/17/2023 12:30 EST Discharge Level of Care at Discharge : Homehealth/VNA Discharge VNA/Hospice/Home Care(v001) : [facility] [phone] Patient Left Unit Via : Ambulance Patient Accompanied Off Unit with : Ambulance/Chair Van Personnel Handover Given to Transport Personnel : Yes DC Instructions Provided & Signed by Pt : Yes Patient Understands D/C Instructions : Yes Patient Instructions Discharge Signed : Yes Did Pt have Specialty Bed or Wound Vac : No Shad BUSTAMANTE, Lashonda - 06/17/2023 10:05 EST * Silvano PAGAN, Otoniel H: PERFORM Event Display: Discharge/Transfer Note Hospital Authored Date: Patient: ??ERNESTO MCQUEEN ? Age:??38 Years?Sex:??Male?:??1985?? Patient Information Discharge Location: W4 Primary Care Physician: Derek Tomas MD Admit Date/Time: 06/12/23 20:32 Discharge Disposition Discharge Disposition: Home with Home Health Discharge Diagnosis Chronic pain (G89.29) History of ischemic stroke (Z86.73) Wound of buttock (S31.809A) Hidradenitis suppurativa (L73.2) Arterial ischemic stroke, KRISTAL (anterior cerebral artery), left, chronic (Z86.73) Chronic pain (G89.29) Depressed (F32.A) GERD (gastroesophageal reflux disease) (K21.9) Hypertension (I10) Mural thrombus of cardiac apex (I51.3) Peripheral neuropathy (G62.9) Right spastic hemiparesis (G81.11) Spasticity (R25.2) Thrombocytosis (D75.839) ?? _ Discharge Medications Acetaminophen (acetaminophen 325 mg oral tablet)?975?Milligram?By Mouth?3 times a day?Can use over the counter Tylenol or substitute Acitretin (acitretin 10 mg oral capsule)?TAKE 1 ??1 CAPSULE DAILY Amlodipine (amLODIPine 5 mg oral tablet)?5?Milligram?1?tablet?By Mouth?Daily apixaban (Eliquis 5 mg oral tablet)?See Instructions?TAKE 1 TABLET BY MOUTH TWICE A DAY Baclofen (baclofen 20 mg oral tablet)?20?Milligram?1?tablet?By Mouth?4 times a day Duloxetine (duloxetine 30 mg oral enteric coated [...] M25.373Length of need: 99 monthsNumber to fax to:[phone] Durable Medical Equipment (3 in 1 commode)?See Instructions?use as needed to prevent fall. Diagnosis: Stroke, Impaired Mobility. ICD10 I63.9, ICDR26.2.KRISSY 99for PCP Tanja Fuchs to [facility] Durable Medical Equipment (transfer tub bench)?See Instructions?use as needed to prevent fall. Diagnosis: Stroke, Impaired Mobility. ICD10 I63.9, ICDR26.2.KRISSY 99for PCP Tanja Fuchs to [facility] [employer]urable Medical Equipment (CHUX)?See Instructions?2 per dayFunctional Incontinence R39.81 Durable Medical Equipment (Diapers, adult extra Large)?See Instructions?2 per dayChronic drainage, bleeding of buttocks lesions due to severe hidradenitis L73.2Functional Incontinence R39.81 Please fax to [facility] [employer]urable Medical Equipment (large gauze)?See Instructions?L73.2 HS Durable Medical Equipment (Air Mattress)?See Instructions?Use daily to prevent progression ofpressure ulcer. Z86.73, L89.159. Fax to [employer] Durable Medical Equipment (Hospital bed)?See Instructions?Use as needed daily Durable Medical Equipment (rollator walker)?See Instructions?use daily as needed Ferrous Sulfate (ferrous sulfate 325 mg oral tablet)?1?tab(s)?325?Milligram?By Mouth?Daily?TAKE 1 TABLET BY MOUTH EVERY DAY Folic Acid (folic acid 1 mg oral tablet)?1?Milligram?1?tablet?By Mouth?Daily?TAKE 1 TABLET BY MOUTH EVERY DAY THAT YOU ARE NOT TAKING METHOTREXATE Gabapentin (gabapentin 600 mg oral tablet)?1?tab(s)?600?Milligram?By Mouth?3 times a day?Further refills from PCP Hydroxyurea (hydroxyurea 500 mg oral capsule)?500?Milligram?By Mouth?Daily Omeprazole (omeprazole 40 mg oral enteric coated capsule)?1?capsule?By Mouth?Daily Oxycodone (oxyCODONE 10 mg oral tablet)?1?tab(s)?10?Milligram?By Mouth?Every 6 hours?as needed?as needed for pain?for 5?Days Tizanidine (tiZANidine 2 mg oral tablet)?4?Milligram?2?tablet?By Mouth?Every 8 hours?as needed?as needed for muscle spasm ? Doses Changed ?? Gabapentin 600mg TID Oxycodone 10mg q6 PRN ?? PCP Follow-Up/Heads-Up ?? Patient may benefit from entering narcotic contract or referrals to pain management due to ongoing wound pain ?? Future Appointments Primo Feb. 9, 2024 11:00 AM EST ?? With: Litzy Hunt DO Where: [facility] [address] [place] [address]- Status: Pending Hospital Course ?? 38-year-old??male with PMH of left ICA stroke with residual right-sided spastic hemiparesis (on baclofen) and dysarthria; mural thrombus of cardiac apex on Eliquis; severe hydradenitis suppurativa s/p excision of left buttock plastic surgery, follows with dermatology outpatient; PATY; thrombocytosis; chronic pain syndrome on oxycodone; HTN; depression;??presented to the emergency dept for right buttocks pain. ??Evaluated by wound care nurse and surgery no signs of active infection. Pain control optimized and close PCP follow up arranged for ongoing pain management. Discharge home with servicesin??stable condition ? Wound of buttock ??(S31.809A) on right side : concern for infection Hidradenitis suppurativa ??(L73.2): Mild leukocytosis , no fever, no septic signs Not on an antibiotic as outpatient. Presented to the hospital due to uncontrolled pain??after running out of p.o. oxycodone Has been seen in ED 4 times in the past few weeks for same needing pain medication. He currently was using a Fentanyl patch without relief. Previously was taking 10mg Oxycodone with some improvement. has not seen pain management. Followed by wound care, visiting RN or his mother change the dressings daily. Is followed by [facility] with plan for surgery in the future. ?? Will discontinue fentanyl patch as it was not effective according to the patient Continue oxycodone 10 mg every 6 hours as needed for pain control,??better pain control Patient has PCP appointment??with On 06/21/2023 preshceduled for more follow up and refills Follow wound care in [facility]??and might undergo??for potential plastic surgery in the near future. ?? -Appreciate surgical team input, no current intervention recommended, [facility]. -Appreciate wound care team involvement as well, wound care will continue with home VNA -Seen and examined at bedside, still endorsing pain, gabapentin dose increased to 600 Mg 3 times daily, Tylenol 1000 mg 3 times daily scheduled, better relief with this -Will confirm PCP appointment and discharge patient home 2/5 with enough supply until upcoming PCP appointment -Fortunately CT pelvis shows no signs of active infection, with wound looking clean as well, antibiotics currently not indicated ? Chronic pain ??(G89.29): Oxycodone 10 mg every 6 as needed [facility]. [facility] till PCP follow up given DC fentanyl patch as it is not effective. ?? Iron deficiency anemia (D50.9):??--Recently done iron studies showed TSAT 7%, serum iron 16, ferritin 39; normal folate and vitamin B12 levels. Hemoglobin iron deficit??to achieve hemoglobin of 12,??1000 mg Continue folic acid ?? Mural thrombus of cardiac apex (I51.3):??Continue home Eliquis ?? History of ischemic stroke (Z86.73):On Eliquis. Right spastic hemiparesis (G81.11):?? Spasticity (R25.2):??-??Continue home scheduled baclofen; as needed tizanidine ?? Hypertension (I10):?? Continue home amlodipine ?? Peripheral neuropathy (G62.9):??-?? Continue home gabapentin, dose increased to 600mg TID for better pain control ?? GERD (gastroesophageal reflux disease) (K21.9):??-?? Continue home PPI ?? Depression (F32.A):??-?? Continue home?? duloxetine ?? Thrombocytosis: Unclear etiology recently started on Hydrea will continue and follow up with outpatient provider. ? Objective Assessment and Plan ? Measurements?? Height: 190 cm (06/17/23) Weight: 90.9 kg (06/13/23) Dry Weight: 90.9 kg (06/13/23) Body Mass Index:??25.18 kg/m2??High (06/13/23) ? Vital Signs?? Temperature: 98.2 DegF (06/17/23 07:42:00) Temperature Route: Oral (06/17/23 07:42:00) Pulse Rate:??54 bpm??Low (06/17/23 07:42:00) Respiratory Rate: 18 br/min (06/17/23 08:58:00) Systolic Blood Pressure: 110 mm Hg (06/17/23 08:53:00) Diastolic Blood Pressure: 59 mm Hg (06/17/23 08:53:00) Blood pressure sites: Arm, left (06/17/23 07:42:00) Mean Arterial Pressure: 76 mm Hg (06/17/23 07:42:00) Pulse Pressure: 51 mm Hg (06/17/23 07:42:00) Oxygen Saturation: 100 % (06/17/23 07:42:00) Mode of Delivery (Oxygen): Room air (06/17/23 07:42:00) Early Warning Score: 0 (06/17/23 08:58:33) ? . Physical Exam ?? General: Awake alert no distress Respiratory: Clear to auscultation bilaterally Cardiac: Regular rate rhythm no murmurs Abdomen: Soft nontender Extremities:??Good perfusion Skin: Right buttock with clean dressing, pink wound base Neuro: Alert and oriented??x 4,??has known chronic right hemiparesis with right hand contracture and some dysarthria/aphasia ? Pending Results No Pending Results Follow-Up Appointments Added Follow Up ?Time Frame ?Comments As Needed Patient Instructions ?? - Admitted due to significant pain at site of sacral wound, surgical team saw you and no surgery was needed and CT scan did not??show signs of infection - Gabapentin and Oxycodone was??increased for your pain control and prescribed enough supply until your scheduled appointment with your primary care doctor on 06/21/23.??Please do not miss this appointment as more pain medication refills will be needed.? Post Discharge Care Diet: ??Regular Diet ?? Activity: ??As tolerated ?? Wound Care: ??1.) Bilateral Buttocks: Cleanse with Vashe solution. Allow to dry. Apply Aquacel AG over open areas (may treat right lateral buttock as one large wound). Cover with Mepilex dressing or DSD. cover with Tegaderm dressings to protect from incontinence. Repeat every other day and PRN for soilage ?? Code Status: ??Full Resuscitation ?? Condition: ??Stable ?? Prognosis: ??Fair ?? Discharge ?06/17/23 9:04:00 EST Discharge Prescriptions ?ePrescribed, 06/17/23 9:04:00 EST Home Health Face to Face *Denotes mandatory burton ?? *I certify that this patient is under my care and that I or an allowed non- physician working with me had a face to face encounter with the patient on this date:??06/17/2023 09:14 ?? *The encounter with the patient was in whole, or in part, for the following medical condition, which is the primary diagnosis(es) for home health care:??Chronic pain (G89.29) History of ischemic stroke (Z86.73) Wound of buttock (S31.809A) Hidradenitis suppurativa (L73.2) Arterial ischemic stroke, KRISTAL (anterior cerebral artery), left, chronic (Z86.73) Chronic pain (G89.29) Depressed (F32.A) GERD (gastroesophageal reflux disease) (K21.9) Hypertension (I10) Mural thrombus of cardiac apex (I51.3) Peripheral neuropathy (G62.9) Right spastic hemiparesis (G81.11) Spasticity (R25.2) Thrombocytosis (D75.839) ? *Select the indications for the discipline/s that are being arranged for this patient. Nursing (select all that apply): [_] None [X] Medication management (reconciliation, teaching)?? [X] Chronic disease management?? [X] Wound care and treatment?? [_] Home safety evaluation [_] Administer SQ/IM/IV medications?? [_] Cath care?? [_] Drain care?? [_] Trach or GT care?? Other _ ?1.) Bilateral Buttocks: Cleanse with Vashe solution. Allow to dry. Apply Aquacel AG over open areas (may treat right lateral buttock as one large wound). Cover with Mepilex dressing or DSD. cover with Tegaderm dressings to protect from incontinence. Repeat every other day ? Occupation Therapy (select all that apply): [_] [...] organize, and/or recall information Other _ ? *Homebound due to (select all that apply): [_] Inability to leave home without assistance/supervision [_] Inability to ambulate without assistance [_] Pain [X] Decreased strength and endurance [_] Unsteady gait [_] Severe SOB and fatigue [_] Impaired transfers [_] Inability to negotiate stairs [_] Limited weight bearing [_] Mental status change? *Physician Signature: _Otoniel Schaefer MD ?? *By signing this, I certify that I have personally evaluated the patient and agree with the findings and recommendations as documented above. ? Results Discharge Labs BLOOD COUNT & DIFF WBC 9.8 k/mm3 ()?? 06/15/2023 01:39 RBC 3.24 m/mm3 (Low)?? 06/15/2023 01:39 Hgb 7.5 Gm/dL (Low)?? 06/15/2023 01:39 Hct 25.5 % (Low)?? 06/15/2023 01:39 MCV 78.7 femtoliters (Low)?? 06/15/2023 01:39 MCH 23.1 pg (Low)?? 06/15/2023 01:39 MCHC 29.4 g/dL (Low)?? 06/15/2023 01:39 Platelet Count 876 k/mm3 (High)?? 06/15/2023 01:39 RDW-SD 55.6 femtoliters (High)?? 06/15/2023 01:39 MPV 8.5 femtoliters (Low)?? 06/15/2023 01:39 Nucleated RBC (Automated) 0.0 #/100 WBC'S ()?? 06/15/2023 01:39 Abs. NRBC 0.0 k/mm3 ()?? 06/15/2023 01:39 Abs. Neut 6.6 k/mm3 ()?? 06/15/2023 01:39 Abs. Lymph 2.1 k/mm3 ()?? 06/15/2023 01:39 Abs. [place] 0.9 k/mm3 ()?? 06/15/2023 01:39 Abs. Eo 0.1 k/mm3 ()?? 06/15/2023 01:39 Abs. Baso 0.0 k/mm3 ()?? 06/15/2023 01:39 Neut % 67.9 % ()?? 06/15/2023 01:39 Lymph % 21.2 % ()?? 06/15/2023 01:39 [place] % 9.4 % ()?? 06/15/2023 01:39 Eos % 0.7 % ()?? 06/15/2023 01:39 Baso % 0.4 % ()?? 06/15/2023 01:39 Imm Gran 0.4 % ()?? 06/15/2023 01:39 Abs. Imm Gran 0.0 k/mm3 ()?? 06/15/2023 01:39 ?? CHEM GENERAL Sodium 135 mmol/L ()?? 06/15/2023 01:39 Potassium 4.6 mmol/L ()?? 06/15/2023 01:39 Chloride 99 mmol/L ()?? 06/15/2023 01:39 Bicarbonate Level 25 mmol/L ()?? 06/15/2023 01:39 Anion Gap 11 ()?? 06/15/2023 01:39 Glucose Level 106 mg/dL (High)?? 06/15/2023 01:39 BUN 14 mg/dL ()?? 06/15/2023 01:39 Creatinine-Blood 0.7 mg/dL ()?? 06/15/2023 01:39 Estimated GFR Creatinine 121 ML/MIN/1.73 M2 ()?? 06/15/2023 01:39 Calcium 8.7 mg/dL ()?? 06/15/2023 01:39 Magnesium 2.0 mg/dL ()?? 06/14/2023 05:26 Lactate 1.0 mmol/L ()?? 06/12/2023 23:40 C-Reactive Protein 8.9 mg/dL (High)?? 06/12/2023 23:40 ? HEME OTHER Sed Rate 85 mm/hr (High)?? 06/12/2023 23:40 ? URINE OTHER Est Creatinine Clearance 171.76 mL/min ()?? 06/13/2023 13:44 ? Imaging(s) ?CT Pelvis W/ Contrast ?? 06/15/2023 12:19??by Lázaro Ann MD ?1. Severe skin thickening and irregularity as well as mild underlying subcutaneous fat and induration again seen in the right gluteal region extending to the right proximal thigh, partially imaged, but overall similar in appearance to prior studies dating back to at least 09/06/2020. Mild skin thickening in the medial aspect of the left gluteal region, also unchanged. No discrete abscess is seen within the imaged portions of this process. 2. Multiple enlarged right inguinal lymph nodes measuring up to 2.3 cm, similar to prior studies. ? 42_ minutes spent on discharge * Lashonda Kulkarni RN: PERFORM Event Display: Patient Education/Instruction Authored Date: [id number] Inpatient Adult Discharge Instructions. [place] [id number] Name: ERNESTO MCQUEEN : 1985?? Visit: 06/12/2023 20:32?? Current Date: 06/17/2023 09:52 ?? Account: [id number]?? Inpatient Adult Discharge Instructions We would like [...] and their families. Surveys are administered by [employer] ?? If further treatment with your primary care physician or another doctor is recommended, it is important for you to keep the appointment. Call your primary care physician or return to the Emergency Department immediately if your condition worsens, fails to improve, or new symptoms develop. If you need to find a doctor, you can call [facility] Link for a referral at [phone] or toll free at [phone]) or log in to [email or web address].. ?? [facility], in keeping with [facility] guidance, no longer requires face masks for staff, patientsor visitors in most situations. Similiar to time spent indoors at other locations, there is the chance that you were exposed to repiratory viruses during your time with us (such as flu or COVID-19). If you develop symptoms concerning for a viral respiratory infection, please seek testing (and treatment if indicated) from your medical provider or home test kit. ?? You can view and manage your care through the patient portal or by using a health care boyd of your choosing. [employer] is a website that allows you to securely view your medical information including your hospital discharge summary, office visit summaries, medications and follow-up visits. You can also request appointments, renew medications, and request access to your medical information using a health care boyd of your choosing, or just ask a question. You can enroll at [email or web address] or register during your next office visit. You have been discharged from [facility], Patient Care Unit: W4??. If you have any questions regarding these instructions, including results of studies pending, afteryou leave, please call us and we will be happy to assist you 03/12. [facility] Your Care Team Attending Physician Otoniel Schaefer MD?? Consulting Providers Otoniel Schaefer MD?? Discharging Providers Otoniel Schaefer MD Reason for Your Visit Coming from home, reports R buttock pain. Pain has been constant since February. Had surgery in February. Was on PO Oxy since surgery with no good effect, now on Fentanyl patch with no good efffect. GCS 15, diff to ambulate. Hx stroke wioth RT sided residua?? Your Diagnosis Chronic pain History of ischemic stroke Wound of buttock Hidradenitis suppurativa Arterial ischemic stroke, KRISTAL (anterior cerebral artery), left, chronic Chronic pain Depressed General medical GERD (gastroesophageal reflux disease) Hypertension Mural thrombus of cardiac apex Peripheral neuropathy Right spastic hemiparesis Spasticity Thrombocytosis Tests Performed Below is a partial list of the tests performed during your hospitalization. You may have had other tests and procedures not included in this list. Please discuss all test results with your provider. Basic Metabolic Panel BUN CBC CBC w/ Differential Creatinine CRP Electrolytes ESR Glucose Level Lactic Acid Level Magnesium Level CT Pelvis W/ Contrast No tests performed during this visit.?? Primary Care Provider Derek Tomas MD? Discharge Vitals Temperature: 98.2 DegF Height: 190 cm Pulse Rate:??54 bpm??Low Weight: 90.9 kg Respiratory Rate: 18 br/min Body Mass Index:??25.18 kg/m2??High Systolic Blood Pressure: 110 mm Hg Body surface area: 2.19 Diastolic Blood Pressure: 59 mm Hg ?? Oxygen Saturation: 100 % ?? Studies Pending All studies ordered during this hospital stay have been completed unless listed below. Please discuss all pending results with your provider listed above in these instructions. ?? No incomplete studies found?? What to do next Instructions From Your Doctor ?? - Admitted due to significant pain at site of sacral wound, surgical team saw you and no surgery was needed and CT scan did not??show signs of infection - Gabapentin and Oxycodone was??increased for your pain control and prescribed enough supply until your scheduled appointment with your primary care doctor on 06/21/23.??Please do not miss this appointment as more pain medication refills will be needed.? Orders??:Regular Diet :As toelrated Care:1.) Bilateral Buttocks: Cleanse with Vashe solution. Allowto dry. Apply Aquacel AG over open areas (may treat right lateral buttock as one large wound). Cover with Mepilex dressing or DSD. cover with Tegaderm dressings to protect from incontinence. Repeat every other day and PRN for soilage Status: ??Full Resuscitation :Stable :Fair? 06/17/23 9:04:00 EST?? Prescriptions??, ??06/17/23 9:04:00 EST?? Scheduled Follow-Up Appointments Saturday 11:00 AM EST ?? With: Litzy Hunt DO Where: [facility] [address] [place] [address]- Status: Pending You Need to Schedule the Following Appointments Follow Up with??As Needed Discharge Medications ERNESTO MCQUEEN :1985 Visit Date:06/12/2023 Medications: Please continue your medications until treatment is completed or stopped by your provider. Medications not listed below should be discontinued. Discuss any questions related to medications with your provider. What How Much When Why Instructions Next Dose New Acetaminophen (acetaminophen 325 mg oral tablet) 975 Milligram Oral 3 times a day Can use over the counter Tylenol or substitute ?? Tonight 2/5 at 9pm New Amlodipine (amLODIPine 5 mg oral tablet) 1 tab(s) Oral Daily Pickup at [facility] 3 Tomorrow morning 06/18 Changed Acitretin (acitretin 10 mg oral capsule) TAKE 1 ??1 CAPSULE DAILY ?? Tomorrow morning 06/18 Changed Ferrous Sulfate (ferrous sulfate 325 mg oral tablet) 1 tab(s) Oral Daily TAKE 1 TABLET BY MOUTH EVERY DAY ?? Tomorrow morning 06/18 Changed Gabapentin (gabapentin 600 mg oral tablet) 1 tab(s) Oral 3 times a day Further refills from PCP ?? Pickup at [facility] 3 Tonight 2/5 at 9pm Changed Hydroxyurea (hydroxyurea 500 mg oral capsule) 500 Milligram Oral Daily Tomorrow morning 06/18 Changed Oxycodone (oxyCODONE 10 mg oral tablet) 1 tab(s) Oral Every 6 hours as needed for as needed for pain Duration: 5 Days Pickup at [facility] 3 Every 6 hours as needed for as needed for pain Unchanged apixaban (Eliquis 5 mg oral tablet) See instructions TAKE 1 TABLET BY MOUTH TWICE A DAY ?? Tonight 2/5 at 9pm Unchanged Baclofen (baclofen 20 mg oral tablet) 1 tab(s) Oral 4 times a day Tonight 2/5 at 9pm Unchanged Duloxetine (duloxetine 30 mg oral enteric coated capsule) 1 capsule Oral Daily Tomorrow morning 06/18 Unchanged Folic Acid (folic acid 1 mg oral tablet) 1 tab(s) Oral Daily TAKE 1 TABLET BY MOUTH EVERY DAY THAT YOU ARE NOT TAKING METHOTREXATE ?? Tomorrow morning 2/6 Unchanged Omeprazole (omeprazole 40 mg oral enteric coated capsule) 1 capsule Oral Daily Tomorrow morning 2 Unchanged Tizanidine (tiZANidine 2 mg oral tablet) 2 tab(s) Oral Every 8 hours as needed for as needed for muscle spasm Every 8 hours as needed for as needed for muscle spasm Pharmacy Information [facility] 3: [address] [place] [address] [phone] ?? What How Much When Comments Stop Taking Clindamycin Topical (clindamycin 1% topical gel) 1 applicator Topically Twice a day Stop Taking Doxycycline (doxycycline hyclate 100 mg oral enteric coated tablet) 1 tab(s) Oral Twice a day Stop Taking Fentanyl (fentanyl 12 mcg/ hr transdermal film, extended release) 1 patch(es) Topically Every 72 hours Prescription Given During Visit Amlodipine (amLODIPine 5 mg oral tablet) - 1 tablet = 5 mg, By Mouth, Daily, # 30 tablet, 0 Refills, [facility] [address], [address] [place] [phone]?? Gabapentin (gabapentin 600 mg oral tablet) - 1 tablet = 600 mg, By Mouth, 3 times a day, # 30 tablet, 0 Refills, Further refills from PCP, [address] [address] [phone]?? Oxycodone (oxyCODONE 10 mg oral tablet) - 1 tablet = 10 mg, By Mouth, Every 6 hours, # 20 tablet, 0Refills, [facility] [address] [address] [phone]?? Laboratory Results Below is a partial list of the most recent Laboratory test results done prior to this discharge. You may have had other tests and procedures not included in this list. Please discuss all test resultswith your provider. Est Creatinine Clearance - 171.76 mL/min (06/13/2023) Basic Metabolic Panel (06/15/2023) ???Sodium - 135 mmol/L???Potassium - 4.6 mmol/L???Chloride - 99 mmol/L???Bicarbonate Level - 25 mmol/L???Anion Gap - 11???Glucose Level - 106 mg/dL???BUN - 14 mg/dL???Creatinine-Blood - 0.7 mg/dL???Estimated GFR Creatinine - 121 ML/MIN/1.73 M2???Calcium - 8.7 mg/dL BUN (06/14/2023) ???BUN - 14 mg/dL CBC (06/14/2023) ???WBC - 11.1 k/mm3???RBC - 3.39 m/mm3???Hgb - 7.9 Gm/dL???Hct - 26.7 %???MCV - 78.8 femtoliters???MCH - 23.3 pg???MCHC - 29.6 g/dL???Platelet Count - 962 k/mm3???RDW-SD - 55.5 femtoliters???MPV - 8.5 femtoliters???Nucleated RBC (Automated) - 0.0 #/100 WBC'S???Abs. NRBC - 0.0 k/mm3 CBC w/ Differential (06/15/2023) ???WBC - 9.8 k/mm3???RBC - 3.24 m/mm3???Hgb - 7.5 Gm/dL???Hct - 25.5 %???MCV - 78.7 femtoliters???MCH - 23.1 pg???MCHC - 29.4 g/dL???Platelet Count - 876 k/mm3???RDW-SD - 55.6 femtoliters???MPV - 8.5femtoliters???Nucleated RBC (Automated) - 0.0 #/100 WBC'S???Abs. NRBC - 0.0 k/mm3???Abs. Neut - 6.6 k/mm3???Abs. Lymph - 2.1 k/mm3???Abs. [place] - 0.9 k/mm3???Abs. Eo - 0.1 k/mm3???Abs. Baso - 0.0 k/mm3???Neut % - 67.9 %???Lymph % - 21.2 %???[place] % - 9.4 %???Eos % - 0.7 %???Baso % - 0.4 %???Imm Gran - 0.4 %???Abs. Imm Gran - 0.0 k/mm3 Creatinine (06/14/2023) ???Creatinine-Blood - 0.7 mg/dL???Estimated GFR Creatinine - 122 ML/MIN/1.73 M2 CRP (06/12/2023) ???C-Reactive Protein - 8.9 mg/dL Electrolytes (06/14/2023) ???Sodium - 135 mmol/L???Potassium - 4.3 mmol/L???Chloride - 99 mmol/L???Bicarbonate Level - 27 mmol/L???Anion Gap - 9 ESR (06/12/2023) ???Sed Rate - 85 mm/hr Glucose Level (06/14/2023) ???Glucose Level - 109 mg/dL Lactic Acid Level (06/12/2023) ???Lactate - 1.0 mmol/L Magnesium Level (06/14/2023) ???Magnesium - 2.0 mg/dL Allergies (NKA means No Known Allergies) NKA Problems Active Problems??(18) [facility] President Carmen Elizabeth [phone]?? Chronic ischemic left ICA stroke?? Chronic pain?? Controlled substance agreement signed 10/16/22?? Depression?? GERD (gastroesophageal reflux disease)?? Hidradenitis suppurativa?? History of ischemic stroke?? Hypertension?? Insomnia?? Iron deficiency anemia?? Mural thrombus of cardiac apex?? Peripheral neuropathy?? Right spastic hemiparesis?? Spasticity?? Therapeutic drug monitoring?? Tobacco dependence?? Wound of buttock?? Education Materials Below is the list of Educational Leaflet Providered with your Discharge Instructions. Valuables and Belongings I fully understand and agree that [facility] accepts no responsibility for all my personal [...] Review of Valuable and Belonging List: With patient, With witness Date for Pt to Sign Valuables/Belongings: 06/14/23 17:36:00 ?? Other Discharge Information ? Case Management Discharge Plan?? Discharge Plan?? Discharge Agency Information?? Discharge Level of Care at Discharge: Homehealth/VNA Agency Reliability Technician #1: intake Discharge VNA/Hospice/Home Care: [facility] [phone] Service Categories #1: Home health aide, Shelter ?? Service Comments #1: the visiting nurse staff will call to set up a visit at your home 1-2 days after discharge ?? Pulmonary Rehab Status?? Pulmonary Rehab Discharge [...] are strongly encouraged to quit. Please call [facility] [facility] at [phone] or [phone] ([phone]) or log in to [email or web address] for referrals to smoking cessation programs. ?? 875 Suicide & Crisis Lifeline is available 03/12 if you or someone you know needs to find a reason to keep living. By calling 988 you'll be connected to a skilled, trained counselor at a crisis center in your area. INPATIENT DISCHARGE INSTRUCTIONS SIGNATURE PAGE ERNESTO MCQUEEN Location:[facility] Registration Date and Time:06/12/2023 20:32 EST Primary Care Physician: Genoveva PAGAN, Derek, Attending Physician: Silvano PAGAN, Otoniel Lopez, I ERNESTO MCQUEEN, have received the above patient education materials/instructions and have verbalized understanding. If ambulance or transport services are being used I further acknowledge being given a choice of service. ?? If you need to contact me, please call me at this number: . Patient/Energy Sales Broker Name: Patient/Energy Sales Broker Signature: Relationship to Patient: Witness Name/Signature: Date: * Jolie Villalobos RN: PERFORM Event Display: Patient Education Leaflets Authored Date: [id number] Wound Healing ?? 642 You are an important partner in your care along with your health care team.?? Eating healthful foods and drinking nutrition shakes are two things that you can do to help improve wound healing! ?? What should I eat? ?? Protein Rich Foods Meat (Beef/Pork) Chicken/[place] [employer] Cheese Nuts/Nut butters Beans Cheese Nutrition shakes Milk Yogurt Frisian Yogurt Eggs Vitamin C Rich Foods Oranges [place] Juice Pineapple Strawberries Melons Broccoli Peppers Kiwi Papaya Zinc Rich Foods Beef Pork Dark meat chicken Oysters Crabmeat Beans Fortified cereal Nuts Wheat germ ? It is important to consume adequate??Calories and Protein each day. ?? If you do not eat many foods rich in vitamin C or zinc, you may need a complete multivitamin with minerals to ensure you are getting enough of these nutrients. ? * Kaila Herron RN: PERFORM, SIGN, VERIFY Event Display: Case Management Discharge Plan Authored Date: Patient: ERNESTO MCQUEEN Age: 38 years Sex: Male : 1985 Associated Diagnoses: None Author: Kaila Herron RN Discharge Plan Case Management Discharge Plan : Case Management Discharge Plan Data 06/14/2023 11:09 EST Discharge Level of Care at Discharge Homehealth/VNA Discharge VNA/Hospice/Home Care [facility] [phone] Agency Reliability Technician #1 intake Service Categories #1 Home health aide, Shelter Service Comments #1 the visiting nurse staff will call to set up a visit at your home 1-2 days after discharge Patient Care team information Care Team Personnel Name: Areli Pittman RN Position: [facility] ED RN W/OE and Tasks Member Role: Primary Care Nurse Name: Derek Tomas MD Position: [facility] Resident Member Role: PCP Address: Address: [address] [place] [id number] Name: Farhana Green RN Position: S RN Member Role: Primary Care Nurse Name: Ally Boyd RN Position: [facility] RN Member Role: Primary Care Nurse Name: Lynn Stewart RN Position: [facility] RN Member Role: Primary Care Nurse Name: Jolie Villalobos RN Position: [facility] RN Member Role: Primary Care Nurse Name: Axel Savage RN Position: [facility] RN Member Role: Primary Care Nurse Name: Filemon King RN Position: [facility] RN Member Role: Primary Care Nurse Name: Lauren Guevara RN Position: [facility] RN Member Role: Primary Care Nurse Name: Lashawn Nagy RN Position: [facility] RN Member Role: Primary Care Nurse Name: Glenys Fox RN Position: [facility] RN Member Role: Primary Care Nurse Care Team Related Persons Name: JUHI BEVERLY Address: [place] [address] Name: AISLINN DE LA PAZ Address: [address] [place] [address]
--- OUTSIDE RECORDS SUMMARY | 2024-01-21 19:29 | XMS_ITS | Continuity of Care Document ---
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 Start Date: 06/17/23 Status: Ordered baclofen 20 mg oral tablet 20 mg, 1, tablet, By Mouth, 4 times a day, # 120 tablet, Refills 0, Tot. Refills 0, Maintenance, 06/03/23 13:25:00 EST, Route to Pharmacy Electronically, [facility], 193, cm, 06/01/23 9:54:00 EST, Height, 90.9, kg, 06/01/23 9:54:00 EST,... Start Date: 06/03/23 Status: Ordered docusate sodium 100 mg oral capsule 100 mg, 1, capsule, By Mouth, 2 times a day, # 60 capsule, Refills 0, Tot. Refills 0, Maintenance, 07/16/23 9:51:00 EST, Route to Pharmacy Electronically, [facility], Partial fill upon patient request if the prescription is for a schedul... Start Date: 07/16/23 Status: Ordered duloxetine 30 mg oral enteric coated capsule 2 capsule = 60 mg, By Mouth, Daily, # 60 capsule, 0 Refills, Maintenance, 07/16/23 9:56:00 EST, [facility], 182, cm, 07/04/23 14:56:00 EST, Height, 89, kg, 07/03/23 11:22:00 EST, Dry Weight Start Date: 07/16/23 Status: Ordered Eliquis 5 mg oral tablet See Instructions, TAKE 1 TABLET BY MOUTH TWICE A DAY, # 60 tablet, 11 Refills, Maintenance, 06/12/23 6:31:00 EST, [id number], 193, cm, 06/01/23 9:54:00 EST, Height, 90.9, kg, 06/01/23 9:54:00 EST, Dry Weight Start Date: 06/12/23 Status: Ordered ferrous sulfate 325 mg oral tablet 1 tablet = 325 mg, By Mouth, Daily, TAKE 1 TABLET BY MOUTH EVERY DAY, # 30 tablet, 0 Refills, Maintenance, 06/12/23 6:46:00 EST, Tablet, [id number], Partial fill upon [...] 06/12/23 6:46:00 EST, Route to Pharmacy Electronically, [id number], Partial fill upon... Start Date: 06/12/23 Status: Ordered gabapentin 600 mg oral tablet 1 tablet = 600 mg, By Mouth, 3 times a day, # 90 tablet, 0 Refills, Maintenance, 06/21/23 12:34:00 EST, Tablet, [id number], Partial fill upon [...] capsule, 5 Refills, Maintenance, 08/13/22 15:28:00 EDT, [id number], 193.04, cm, 07/23/22 14:07:00 EDT, Height, [...] 0, Tot. Refills 0, Acute... Start Date: 07/25/23 Stop Date: 08/04/23 Status: Ordered tiZANidine 2 mg oral tablet 4 mg, 2, tablet, By Mouth, Every 8 hours, PRN, # 90 tablet, Refills 0, Tot. Refills 0, Maintenance,as needed for muscle spasm, 06/21/23 12:37:00 EST, Route to Pharmacy Electronically, [id number], Partial fill upon patient request if the presc... Start Date: 06/21/23 Status: Ordered Vitamin D3 1000 intl units oral tablet 1 tablet = 25 mcg, By Mouth, Daily, # 30 tablet, 0 Refills, Maintenance, 07/16/23 10:05:00 EST, Tablet, [facility], Partial fill upon patient [...] apex Confirmed Active N CP Care Management, Artist'S Representative Carmen Elizabeth [phone] Confirmed Active Therapeutic drug monitoring Confirmed Active Peripheral neuropathy Confirmed Active Right spastic hemiparesis Confirmed Active Spasticity Confirmed Active Tobacco dependence Confirmed Active Social History Social History Type Response Smoking Status 5-9 cigarettes (betw een 1/4 to 1/2 pack)/day in last 30 days entered on: 05/16/22 Sex Patient Care team information Care Team Personnel Name: Anu Lipscomb Position: [facility] RN Member Role: Primary Care Nurse Name: Areli Pittman RN Position: [facility] ED RN W/OE and Tasks Member Role: Primary Care Nurse Name: Derek Tomas MD Position: [facility] Resident Member Role: PCP Address: Address: [address] [place] [address] Name: Farhana Garcia RN Position: [facility] RN Member Role: Primary Care Nurse Name: Farhana Green RN Position: S RN Member Role: Primary Care Nurse Name: Ally Boyd RN Position: [facility] RN Member Role: Primary Care Nurse Name: Javed Oneill RN Position: [facility] RN Member Role: Primary Care Nurse Name: Lynn Stewart RN Position: S RN Member Role: Primary Care Nurse Name: Jolie Villalobos RN Position: [facility] RN Member Role: Primary Care Nurse Name: Axel Savage RN Position: S RN Member Role: Primary Care Nurse Name: Glenys Bee RN Position: S RN Member Role: Primary Care Nurse Name: Filemon King RN Position: [facility] RN Member Role: Primary Care Nurse Name: Lauren Guevara RN Position: [facility] RN Member Role: Primary Care Nurse Name: Lashawn Nagy RN Position: [facility] RN Member Role: Primary Care Nurse Name: Glenys Fox RN Position: [facility] RN Member Role: Primary Care Nurse Care Team Related Persons Name: BEVERLY REYNAGA Address: [place] [address] Name: AISLINN DE LA PAZ Address: home [address] [place] [address]
--- OUTSIDE RECORDS SUMMARY | 2024-01-21 19:29 | XMS_ITS | Continuity of Care Document ---
Author Organization [facility] Address [address] [place] [id number]- Care Team Providers Care Appeals Representative Name Role Phone Derek Tomas MD Primary Care Physician Encounter [facility] Date(s): 08/30/23 - 09/06/[address] [id number]- Discharge Disposition: A-Transfer VNA/Home Health Attending Physician: Glenys Bucio MD Admitting Physician: Benson Ray MD Referring Physician: Not on Staff, Referring [...] oral tablet 5 mg, Tablet, By Mouth, Hold for: sbp<120, 09/06/23 9:00:00 EDT Start Date: 09/06/23 Stop Date: 09/06/23 Status: Completed amLODIPine 5 mg oral tablet 5 mg, 1, tablet, By Mouth, Daily, # 30 tablet, Refills 0, Tot. Refills 0, Maintenance, 06/17/23 8:53:00 EST, Route to Pharmacy Electronically, [facility], Partial fill upon patient request if the prescription is for a schedule II opioid... Start Date: 06/17/23 Status: Ordered ascorbic acid 500 mg oral tablet 1 tablet = 500 mg, By Mouth, Daily, # 30 tablet, 0 Refills, Maintenance, 09/06/23 12:42:00 EDT, Tablet, [facility]/pharmacy #[id number], Partial fill upon patient request if the prescription is for a schedule II opioid drug., 193, cm, 09/05/23 19:48:00 EDT, Height... Start Date: 09/06/23 Status: Ordered baclofen 20 mg oral tablet 20 mg, 1, tablet, By Mouth, 4 times a day, # 120 tablet, Refills 5, Tot. Refills 5, Maintenance, 08/06/23 9:00:00 EDT, Route to Pharmacy Electronically, [facility]/pharmacy #[id number], 182, cm, 07/26/23 9:16:00 EDT, Height, 89, kg, 07/03/23 11:22:00 EST, Dry Weight Start Date: 08/06/23 Status: Ordered Dilaudid Inj 2 mg, Injection, IV Push Slowly, Every 8 hours for 4 days, per Acute Pain Service recs, PRN for Pain , Severe, Routine, 08/30/23 10:49:00 EDT, Stop date 09/10/23 10:48:00 EDT Start Date: 08/30/23 Stop Date: 09/07/23 Status: Discontinued docusate sodium 100 mg oral capsule 1 capsule, By Mouth, 2 times a day, # 60 capsule, 11 Refills, Maintenance, 09/03/23 17:44:00 EDT, [id number], 193, cm, 09/03/23 14:09:00 EDT, Height, 91.4, kg, 08/30/23 12:03:00 EDT, Dry Weight Start Date: 09/03/23 Status: Ordered duloxetine 30 mg oral enteric coated capsule 1 capsule = 30 mg, By Mouth, Daily, TAKE 1 CAPSULE BY MOUTH EVERY DAY, # 30 capsule, 6 Refills, Maintenance, 09/03/23 17:47:00 EDT, Capsule, [facility]/pharmacy #[id number], Partial fill upon patient request if the prescription is for a schedule II opioid drug., 1... Start Date: 09/03/23 Stop Date: 03/31/24 Status: Ordered Eliquis 5 mg oral tablet See Instructions, TAKE 1 TABLET BY MOUTH TWICE A DAY, # 60 tablet, 11 Refills, Maintenance, 06/12/23 6:31:00 EST, [id number], 193, cm, 06/01/23 9:54:00 EST, Height, 90.9, kg, 06/01/23 9:54:00 EST, Dry Weight Start Date: 06/12/23 Status: Ordered ferrous sulfate 325 mg oral tablet 1 tablet = 325 mg, By Mouth, 2 times a day, TAKE 1 TABLET BY MOUTH EVERY DAY, # 180 tablet, 0 Refills, Maintenance, 08/14/23 12:47:00 EDT, Tablet, [facility]/pharmacy #[id number], Partial fill upon patient request if the prescription is for a schedule II opioid drSamira.. Start Date: 08/14/23 Stop Date: 11/12/23 Status: Ordered folic acid 1 mg oral tablet 1 mg, 1, tablet, By Mouth, Daily, TAKE 1 TABLET BY MOUTH EVERY DAY THAT YOU ARE NOT TAKING METHOTREXATE, # 30 tablet, Refills 0, Tot. Refills 0, Maintenance, 06/12/23 6:46:00 EST, Route to Pharmacy Electronically, [facility]/pharmacy #[id number], Partial fill upon... Start Date: 06/12/23 Status: Ordered gabapentin 300 mg oral capsule 600 mg, Capsule, By Mouth, 09/06/23 9:00:00 EDT Start Date: 09/06/23 Stop Date: 09/06/23 Status: Completed gabapentin 600 mg oral tablet 1 tablet = 600 mg, By Mouth, 3 times a day, # 90 tablet, 11 Refills, Maintenance, 08/12/23 13:51:00EDT, Tablet, [facility]/pharmacy #[id number], Partial fill upon patient request if the prescription is for a schedule II opioid drug., 182, cm, 07/26/23 9:16:00 EDT... Start Date: 08/12/23 Status: Ordered hydroxyurea 500 mg oral capsule = 500 mg, By Mouth, Daily, for 30 days, # 30 capsule, 2 Refills, Acute 10/18/23 14:36:00 EDT, 07/20/23 14:36:00 EST, Capsule, [facility]/pharmacy #[id number], Partial fill upon patient request if the prescriptionis for a schedule II opioid drug., 182, cm, ... Start Date: 07/20/23 Stop Date: 10/18/23 Status: Ordered MiraLax oral powder for reconstitution = 17 Gm, By Mouth, Daily, PRN Constipation, for 30 days, # 30 each, 0 Refills, Acute 10/06/23 12:41:00 EDT, 09/06/23 12:41:00 EDT, REC Powder, [facility]/pharmacy #[id number], Partial fill upon patient request ifthe [...] 0 Refills, Soft Stop, 08/23/23 15:54:00 EDT, Baydaniel... Start Date: 08/23/23 Status: Ordered oxyCODONE 20 mg oral tablet 1 tablet = 20 mg, By Mouth, Every 4 hours, PRN Pain , Moderate, for 5 days, As your pain improves, you can take this less often (every 6 hrs or every 8 hrs); followup with your primary doctor for further refills (will likely taper down gradually)., #... Start Date: 09/06/23 Stop Date: 09/11/23 Status: Ordered pantoprazole 40 mg oral delayed [...] 08/12/23 13:51:00 EDT, Route to Pharmacy Electronically, [facility]/pharmacy #[id number], Partial fill upon patient request [...] 0 Refills, Maintenance, 07/16/23 10:05:00 EST, Tablet, [facility], Partial fill upon patient request if [...] apex Confirmed Active N CP Care Management, [employer]ice Carmen Elizabeth [phone] Confirmed Active Therapeutic drug monitoring Confirmed Active Peripheral neuropathy Confirmed Active Right spastic hemiparesis Confirmed Active Spasticity Confirmed Active Tobacco dependence Confirmed Active Results Radiology Reports * Exam Date Time Procedure Performing Provider Status 09/04/23 11:46 AM US Doppler Ext Upper Venous Left Horn , Jen; Auth (Verified) Notes: (US Doppler Ext Upper Venous Left) Reason For Exam: Pain/Tenderness Extremities RESULT: US Doppler Ext Upper Venous Left US Doppler Ext Upper Venous Left Reason: Pain Tenderness Extremities; Clinical Question(s): Thrombosis. COMPARISON: None. IMAGING TECHNIQUE: Ultrasound examination of the upper extremity deep venous system was performed using grayscale, color, and spectral wave analysis including response to compression. Assessment includes the contralateral jugular and subclavian vein. FINDINGS: Internal jugular vein: Patent. No thrombosis. Subclavian vein: Patent. No thrombosis. Axillary vein: Patent. No thrombosis. Brachial vein: Patent. No thrombosis. Basilic vein: Nonocclusive thrombus measuring greater than 5 cm in length extending from the antecubital fossa to the mid upper arm. Cephalic vein: Occlusive thrombus measuring greater than 5 cm in length visualized in the proximal and mid upper arm. The cephalic vein at the level of the junction with subclavian vein appears patent. Contralateral internal jugular vein: Patent. No thrombosis. Contralateral subclavian vein: Patent. No thrombosis. IMPRESSION: Superficial thrombophlebitis of the left upper extremity involving the cephalic and basilic veins measuring greater than 5 cm in length. No evidence of deep venous thrombosis. Findings were communicated via [employer] by Sarita Gant to Glenys Fortunato on 09/04/2023 at 11:54 AM with understanding acknowledged. WSN: [id number] Ordering Physician: Glenys Bucio Dictated By: Shahid Zimmerman MD Dictated Date/Time: 09/04/23 12:18 p Reviewed By: Shahid Zimmerman MD Signed By: Shahid Zimmerman MD Signed Date/Time: 09/04/23 12:18 pm Transcribed By: ZEHRA Transcribed Date/Time: 09/04/23 11:56 am * Exam Date Time Procedure Performing Provider Status 08/30/23 2:[address] Ext Lower W/ Contrast Right Stupak , Ahmet; Auth (Verified) Notes: (CT Ext Lower W/ Contrast Right) Reason For Exam: r/o abscess, deeper infection, OM;Infection RESULT: CT Ext Lower W/ Contrast Right CT Ext Lower W/ Contrast Right Reason: Infection; r o abscess, deeper infection, OM; Clinical Question(s): Femur; From R hip to R knee; Order Comment: TECHNIQUE: Helical CT with contrast formatted in 3 planes. 100 cc of Omnipaque 300 was administeredintravenously. Weight-based protocol using automatic tube modulation was used to optimize exposure parameters. CTDIvol Body: 6.30 mGy, DLP Body: 424 mGy*cm. COMPARISONS: None FINDINGS: Right inguinal lymphadenopathy. Largest measures 2.2 cm in short axis. Skin thickening and subcutaneous fatty stranding and soft tissue density within the posterior soft tissues of the right hip and proximal thigh. Superficial ulceration within the posterior soft tissues of the right hip. No focal abscess. Moderate right hip osteoarthritis. No osseous erosion. IMPRESSION: Skin thickening with subcutaneous phlegmon and inflammatory stranding in the posterior subcutaneousfat of the right hip and proximal thigh. No focal fluid collection or abscess. Right inguinal lymphadenopathy is likely reactive I have personally reviewed the images and I agree with this report. WSN: [id number] Ordering Physician: Ruben Gonsalez Dictated By: Quintin[Radiology] Dayanara PAGAN Dictated Date/Time: 08/30/23 7:36 am Reviewed By: Ubaldo Elizalde MD Signed By: Ubaldo Elizalde MD Signed Date/Time: 08/30/23 7:41 am Transcribed By: ZEHRA Transcribed Date/Time: 08/30/23 3:00 am Vital Signs Most recent to oldest [Reference Range]: 1 2 3 Height 193 cm (09/06/23 2:29 PM) 193 cm (09/05/23 7:48 PM) 193 cm (09/05/23 5:43 AM) Weight 91.4 kg (08/30/23 11:53 AM) Oxygen Saturation [94-100 %] 97 % (09/06/23 2:29 PM) 99 % (09/06/23 5:00 AM) 99 % (09/05/23 7:48 PM) Pulse Rate [55-90 bpm] 76 bpm (09/06/23 2:29 PM) 70 bpm (09/06/23 5:00 AM) 75 bpm (09/05/23 7:48 PM) Body Mass Index [18.5-24.99 kg/m2] 24.54 kg/m2 (08/30/23 11:53 AM) Blood Pressure [90-138/55-84 mm Hg] 130/60mm Hg (09/06/23 2:29 PM) 117/50mm Hg (09/06/23 8:32 AM) 117/50mm Hg (09/06/23 5:00 AM) Respiratory Rate [16-30 br/min] 18 br/min (09/06/23 2:29 PM) 18 br/min (09/06/23 2:16 PM) 18 br/min (09/06/23 2:16 PM) Temperature [96.8-100.4 DegF] 98.2 DegF (09/06/23 2:29 PM) 98.7 DegF (09/06/23 5:00 AM) 99 DegF (09/05/23 7:48 PM) Mode of Delivery (Oxygen) Room air (09/06/23 2:29 PM) Room air (09/06/23 5:00 AM) Room air (09/05/23 7:48 PM) Blood pressure sites Arm, right (09/06/23 2:29 PM) Arm, left (09/06/23 5:00 AM) Arm, left (09/05/23 7:48 PM) Temperature Route Oral (09/06/23 2:29 PM) Oral (09/06/23 5:00 AM) Oral (09/05/23 7:48 PM) Dry Weight 91.4 kg (08/30/23 11:53 AM) Social History Social History Type Response Smoking Status 5-9 cigarettes (betw een 1/4 to 1/2 pack)/day in last 30 days entered on: 05/16/22 Sex Admission evaluation note * Mack PAGAN, Mark: PERFORM, MODIFY Event Display: Admission Note Authored Date: [id number] Patient: ??ERNESTO MCQUEEN ? Age:??38 Years?Sex:??Male?:??1985?? Chief Complaint/Reason for Consultation Pt presents from home w/ worsening R hip pain. 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 Reports no relief from pain w/ home meds. History of Present Illness 38-year-old male with history of left ICA stroke with residual right-sided spastic hemiparesis and dysarthria, mural thrombus of cardiac apex on Eliquis, severe hidradenitis status post left buttock hidradenitis excision by plastic surgery at [facility] in 03/04 follows with plastic surgery and dermatology, recent admission 08/19 to 08/22 status post I&D for acutely infected hidradenitis of right gluteus on 08/20 Blood cultures obtained on admission at that time positive for gram-positive cocci in clusters, ID was on board and patient was discharged on Augmentin/doxycycline till 09/03, iron deficiency anemia, thrombocytosis on hydroxyurea, chronic pain syndrome, hypertension, depression presenting to the emergency department due to severe pain related to his right gluteal/right thigh wounds. ?? As noted above, patient was discharged on 08/22 on Augmentin/doxycycline till 09/03 which the patientis taken as prescribed.?? Per discharge summary, it appears that oxycodone was supposed to be continued at 12.5 mg every 4 hours as needed however for unclear reasons was prescribed 5 mg every 6 hours instead.?? Regardless, patient reports that his oxycodone prescription was never approved by the pharmacy and he has been only taken Tylenol at home resulting in progressively worsening and intractable pain secondary to his hidradenitis suppurative wounds in the right gluteal/thigh region.?? Denies having any fever or chills, no nausea or vomiting, no abdominal pain, diarrhea, constipation or dysuria, no headaches, no chest pain or shortness of breath, no changes in vision, no cough or rhinorrhea ?? CT of the right lower extremity was done to rule out abscess/deep space infection and was negative for any acute pathology, formal report is pending.?? He did receive 1 mg of IV Dilaudid and Tylenol with some improvement in his pain. Review of Systems All systems are reviewed??and are negative except as noted above in the HPI. Objective Vital Signs?? Temperature: 97.7 DegF (08/30/23 00:19:00) Temperature Route: Oral (08/30/23 00:19:00) Pulse Rate: 56 bpm (08/30/23 00:19:00) Respiratory Rate: 16 br/min (08/30/23 04:33:00) Systolic Blood Pressure: 101 mm Hg (08/30/23 00:19:00) Diastolic Blood Pressure: 55 mm Hg (08/30/23 00:19:00) Blood pressure sites: Arm, left (08/29/23 23:27:00) Mean Arterial Pressure: 70 mm Hg (08/30/23 00:19:00) Pulse Pressure: 46 mm Hg (08/30/23 00:19:00) Oxygen Saturation: 98 % (08/30/23 00:19:00) Mode of Delivery (Oxygen): Room air (08/30/23 00:19:00) Early Warning Score: 2 (08/30/23 04:35:00) ? Physical Exam General: Alert, oriented x 3, appears to be in moderate distress due to pain HEENT: Atraumatic, normocephalic, EOMI, PERRL, anicteric sclera Neck: Supple, trachea midline Respiratory: CTAB, no wheezes, crackles or rhonchi CVS: S1, S2.?? RRR, no MRG, no JVD Abdomen: Soft, nontender, nondistended, positive bowel sounds Skin: Exam limited, patient was very hesitant to let me examine given severe pain, I was however able to briefly examine the right lateral thigh after removing the dressing which did reveal excoriated skin and multiple chronic wounds with serous discharge, no purulence was noted, no fluctuance, no s urrounding erythema was noted, patient did not allow to examine further in the examination was thereby aborted Neuro: Alert and oriented x 3, chronic right spastic hemiparesis, chronic dysarthria Psych: Appropriate mood and affect Assessment/Plan Diagnoses Hidradenitis suppurativa ??(L73.2) Intractable pain ??(R52) Chronic pain syndrome ??(G89.4) Depression ??(F32.A) GERD (gastroesophageal reflux disease) ??(K21.9) HTN (hypertension) ??(I10) History of CVA with residual deficit ??(I69.30) Iron deficiency anemia ??(D50.9) Mural thrombus of heart ??(I51.3) Thrombocytosis ??(D75.839) ?? 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 and dysarthria, mural thrombus of cardiac apex on Eliquis, severe hidradenitis status post left buttock hidradenitis excision by plastic surgery at [facility] in 03/04 follows with plastic surgeryand dermatology, recent admission 08/19 to 08/22 status post I&D for acutely infected hidradenitisof right gluteus/10 Blood cultures obtained on admission at that time positive for gram-positive cocci in clusters, ID was on board and patient was discharged on Augmentin/doxycycline till 09/03, irondeficiency anemia, thrombocytosis on hydroxyurea, chronic pain syndrome, hypertension, depression presenting to the emergency department due to severe pain related to his right gluteal/right thigh wounds. ?? Hidradenitis suppurativa (L73.2):??. Intractable pain (R52):? -Presenting with severe intractable pain in the right gluteal/right thigh secondary to hidradenitis suppurativa -Was recently admitted 08/19 to 08/22 status post I&D for acutely infected hidradenitis of right gluteus, blood cultures obtained on admission at that time positive for gram-positive cocci in clusters, ID was on board and patient was subsequently discharged on Augmentin/doxycycline till 09/03 -It appears that he was supposed to be discharged on oxycodone 12.5 mg every 4 hours as needed however for unclear reasons he was prescribed 5 mg every 6 hours instead, regardless, patient reports that his oxycodone prescription was never approved by the pharmacy and has only been taking Tylenol athome resulting in progressively worsening and intractable pain secondary to his hidradenitis suppurativa wounds in the right gluteal/thigh region. -Patient denies having any fever or chills, no leukocytosis noted, no signs of sepsis -CT right lower extremity per preliminary reports with no evidence of abscess or deep tissue infection, will follow-up with formal report. -For now we will continue with Augmentin and doxycycline till 09/03 as he was supposed to -Will continue with management of intractable pain with oxycodone 12.5 mg every 4 hours as needed for moderate pain and IV hydromorphone 1 mg every 4 hours as needed for severe pain and taper accordingly -Continue with gabapentin -Wound care has been requested -Recommend outpatient follow-up with plastic surgery/Derm ?? History of CVA with residual deficit (I69.30):??hx of left ICA CVA w/ residual right sided hemiparesis. c/w baclofen, c/w tizanidine as needed for spasm, does not appear to be on statin, rec outptf/u with PCP ?? Chronic pain syndrome (G89.4):??continue with gabapentin ?? Depression (F32.A):??continue with duloxetine ?? HTN (hypertension) (I10):??c/w amlodipine ?? GERD (gastroesophageal reflux disease) (K21.9):??c/w PPI ?? Iron deficiency anemia (D50.9):??continue with ferrous sulfate, added ascorbic acid as well to aid in absorption. hg is low at 7.9 however appears stable compared to baseline, continue to monitor CBCclosely no active bleeding noted or reported. vitals are stable ?? Mural thrombus of heart (I51.3):??continue with Eliquis ?? Thrombocytosis (D75.839):??continue with hydroxyurea ?? VTE Prophylaxis:??Already on Eliquis ?VTE Prophylaxis Assessment:??VTE Prophylaxis Ordered ?? Code Status:??Full code ?Order Code Status:??Code Status Ordered ?? Discharge Planning:??Per clinical course ? Histories Allergies Allergies ?(Active and Proposed Allergies Only) NKA? (Severity: Unknown severity, Onset: Unknown) ? Past Medical History/Problem List [facility](19) [facility] [employer] Carmen Elizabeth [phone] Chronic ischemic left ICA stroke Chronic pain Controlled substance agreement signed 10/16/22 Depression GERD (gastroesophageal reflux disease) Hidradenitis suppurativa History of ischemic stroke Hypertension PATY (iron deficiency anemia) Insomnia Iron deficiency anemia Mural thrombus of cardiac apex Peripheral neuropathy Right spastic hemiparesis Spasticity Therapeutic drug monitoring Tobacco dependence Wound of buttock ? Past Surgical History Operative procedure on hip: 2000 Multiple I and D s related to Hidradenitis suppurativa ?? Social History Alcohol Details:??Use: Current. ??Other: 10 drinks per week. Substance Abuse Details:??Use: Current. ??Type: Marijuana. Tobacco Details:??Use: 5-9 cigarettes (between 1/4 to 1/2 pack)/day in last 30 days. Electronic Cigarette/Vaping Details:??Electronic Cigarette Use: Never. ? Family History Mother: Asthma Brother: Asthma ? Medications Home Medications Acetaminophen (acetaminophen 325 mg oral tablet)?975?Milligram?By Mouth?3 times a day?Can use over the counter Tylenol or substitute Amlodipine (amLODIPine 5 mg oral tablet)?5?Milligram?1?tablet?By Mouth?Daily Amoxicillin-Clavulanate (amoxicillin-clavulanate 875 mg-125 mg oral tablet)?1?tab(s)?By Mouth?Every 12 hours?for 12?Days apixaban (Eliquis 5 mg oral tablet)?See Instructions?TAKE 1 TABLET BY MOUTH TWICE A DAY Baclofen (baclofen 20 mg oral tablet)?20?Milligram?1?tablet?By Mouth?4 times a day Cholecalciferol (Vitamin D3 1000 intl units oral tablet)?1?tab(s)?25?Microgram?By Mouth?Daily Docusate (docusate sodium 100 mg oral capsule)?100?Milligram?1?capsule?By Mouth?2times a day?for 30?Days Doxycycline (doxycycline hyclate 100 mg oral capsule)?1?capsule?100?Milligram?By Mouth?2 times a day?for 12?Days Duloxetine (duloxetine 30 mg oral enteric coated capsule)?TAKE 1 CAPSULE BY MOUTH EVERY DAY Durable Medical Equipment (Vashe wound solution)?See Instructions?Use 45mL daily Ferrous Sulfate (ferrous sulfate 325 mg oral tablet)?1?tab(s)?325?Milligram?By Mouth?2 times a day?for 90?Days?TAKE 1 TABLET BY MOUTH EVERY DAY Folic Acid (folic acid 1 mg oral tablet)?1?Milligram?1?tablet?By Mouth?Daily?TAKE 1 TABLET BY MOUTH EVERY DAY THAT YOU ARE NOT TAKING METHOTREXATE Gabapentin (gabapentin 600 mg oral tablet)?1?tab(s)?600?Milligram?By Mouth?3 times a day Hydroxyurea (hydroxyurea 500 mg oral capsule)?500?Milligram?By Mouth?Daily?for 30?Days nalOXONE (Narcan 4 mg/0.1 mL nasal spray)?1?spray(s)?4?Milligram?Nares, Both?Once?To be used use one spray in one nostril. if an additional dose is needed, alternate nostril. mayrepeat every 2 to 3 minutes until patient responds Oxycodone (oxyCODONE 5 mg oral tablet)?12.5?Milligram?2.5?tablet?By Mouth?Every 4hours?for 10?Days?Please take 2.5 tablets (12.5 mg) every 4 hours as needed for moderate to severe pain. MassPat checked on 07/15 (filled 3 day supply, 45 tablets) Pantoprazole (pantoprazole 40 mg oral delayed release tablet)?40?Milligram?By Mouth?Daily Tizanidine (tiZANidine 2 mg oral tablet)?4?Milligram?2?tablet?By Mouth?Every 8 hours?as needed?as needed for muscle spasm ? Results Recent Labs BLOOD COUNT & DIFF WBC 9.0 k/mm3 ()?? 08/30/2023 01:38 RBC 3.13 m/mm3 (Low)?? 08/30/2023 01:38 Hgb 7.9 Gm/dL (Low)?? 08/30/2023 01:38 Hct 26.7 % (Low)?? 08/30/2023 01:38 MCV 85.3 femtoliters ()?? 08/30/2023 01:38 MCH 25.2 pg (Low)?? 08/30/2023 01:38 MCHC 29.6 g/dL (Low)?? 08/30/2023 01:38 Platelet Count 604 k/mm3 (High)?? 08/30/2023 01:38 RDW-SD 67.1 femtoliters (High)?? 08/30/2023 01:38 MPV 8.4 femtoliters (Low)?? 08/30/2023 01:38 Nucleated RBC (Automated) 0.0 #/100 WBC'S ()?? 08/30/2023 01:38 Abs. NRBC 0.0 k/mm3 ()?? 08/30/2023 01:38 Abs. Neut 5.9 k/mm3 ()?? 08/30/2023 01:38 Abs. Lymph 2.3 k/mm3 ()?? 08/30/2023 01:38 Abs. [place] 0.7 k/mm3 ()?? 08/30/2023 01:38 Abs. Eo 0.1 k/mm3 ()?? 08/30/2023 01:38 Abs. Baso 0.0 k/mm3 ()?? 08/30/2023 01:38 Neut % 65.7 % ()?? 08/30/2023 01:38 Lymph % 25.2 % ()?? 08/30/2023 01:38 [place] % 7.2 % ()?? 08/30/2023 01:38 Eos % 1.2 % ()?? 08/30/2023 01:38 Baso % 0.4 % ()?? 08/30/2023 01:38 Imm Gran 0.3 % ()?? 08/30/2023 01:38 Abs. Imm Gran 0.0 k/mm3 ()?? 08/30/2023 01:38 ?? CHEM GENERAL Sodium HEMOLYZED mmol/L ()?? 08/30/2023 01:38 Potassium HEMOLYZED mmol/L ()?? 08/30/2023 01:38 Chloride 102 mmol/L ()?? 08/30/2023 01:38 Bicarbonate Level HEMOLYZED mmol/L ()?? 08/30/2023 01:38 Anion Gap Unable to calculate ()?? 08/30/2023 01:38 Glucose Level 100 mg/dL (High)?? 08/30/2023 01:38 BUN 21 mg/dL (High)?? 08/30/2023 01:38 Creatinine-Blood HEMOLYZED mg/dL ()?? 08/30/2023 01:38 Estimated GFR Creatinine Unable to calculate ML/MIN/1.73 M2 ()?? 08/30/2023 01:38 Calcium 8.4 mg/dL (Low)?? 08/30/2023 01:38 ? Hospital Progress note * Vicenta Barnett RN: PERFORM, SIGN, VERIFY Event Display: Progress Note Hospital Authored Date: Patient: ERNESTO MCQUEEN Age: 38 years Sex: Male : 1985 Associated Diagnoses: None Author: Vicenta Barnett RN Findings Evaluation Patient being d/c to discharge lounge. Report called to s3 nurse. Patient taken via transport @ 1420. Safety maintained. Discharge Information Case Management Discharge Plan : Case Management Discharge Plan Data 09/06/2023 9:32 EDT Discharge Level of Care at Discharge Homehealth/VNA Discharge VNA/Hospice/Home Care [facility] [phone] Discharge Transportation Arranged [facility] [address] [facility] [id number] [phone] Mode of [facility] Name of Agency #1 [facility] # Service Categories #1 Occupational Therapy, Physical Therapy, Halfway, Wound Care Service Comments #1 You are returning home with continued services from [facility]. Please call them at [phone] if you do not hear from them in 48 hours. * Dirk Driver RN: PERFORM, SIGN, VERIFY Event Display: Progress Note Hospital Authored Date: [id number] Patient: ERNESTO MCQUEEN Age: 38 years Sex: Male : 1985 Associated Diagnoses: None Author: Dirk Driver RN Findings Problem Related to Alteration in Comfort : Alteration in Comfort/new 09/05/2023 11:00 EDT Alteration in Comfort Related to Disease process, Other: pain Goals & Outcomes: Comfort Pt will report acceptable level of comfort & pain control, Pt will state importance of adhering to pain strategy regime, Pt will demonstrate necessary skills to manage pain Interventions Implemented: Comfort Assess pain using appropriate pain scale/tools, Assess aggravating factors & prevent them accordingly, Assess alleviating factors & promote them accordingly Goals/Interventions, Comfort Yes Comfort, Problem Start 08/30/2023 14:00 Reviewed plan with, Comfort Patient Patient Progression, Comfort Pt progressing according to plan Comfort, Problem Ongoing Yes . Alteration in Integumentary : Alteration in Integumentary/new 09/05/2023 11:00 EDT Alteration in Integumentary Related to Other: hydradentitis supprativa Goals & Outcomes, Integumentary Nutritional intake is adequate for metabolic needs, Pt will maintain adequate fluid & nutritional balance, Wound will progress towards healing Interventions, Integumentary Consult Wound Care as needed for further interventions, Encourage & assist pt to change position frequently, Encourage & assist with range of motion exercises, Encourage family participation in pt's care as they are able, Increase turning frequency if red or blanched areas appear, Keep bed as flat as tolerated to reduce shearing, Keep linen clean, dry and wrinkle free, Keep skin clean & dry, Maintain sterile technique with dressing changes, Minimize friction, shear and moisture, Record extent of impaired skin integrity, Teach Pt/caregiver s/s of infection, Teach Pt/S.O. risks of & measures to prevent skin breakdown Goals/Interventions, Integumentary Yes Integumentary, Problem Start 08/30/2023 14:00 Reviewed plan with, Integumentary Patient Patient Progression, Integumentary Pt progressing according to plan . Narrative/Incidental Pt a/o x2, expressive aphasia noted, reports pain 10/10 in right buttocks, some relief with PRN pain meds, denies NT dizziness and vision changes, pt SMITH's with left side 4/5 RUE 0/5 and RLE 1/5 strength, +peripheral pulses, lungs CTA, denies cough/SOB, on RA, +BS, last BM 09/04, pt uses the urinal at the bedside, plan to d/c home with services, see [facility] for full assessment. 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 APS consulted for post op pain control. Pt currently taking Gabapentin 600mg TID, Duloxetine 30mg QD, Tylenol 650mg q4h, Oxycodone 30mg PO Q 4hrly and IV Dilaudid 2mg q4h. Patient endorses significant improvement in pain control since increasing Oxycodone dosing to 30mg PO Q4 hourly. Tolerating wean of Dilaudid well. Denies somnolence, nausea, vomiting, constipation. Past Medical History Procedure/Surgical Profile Operative procedure on hip (8989653567) in 2000 at 15 Years. Problem list All Problems Wound of buttock / SNOMED CT 65232988 / Confirmed Tobacco dependence / SNOMED CT 5096240008 / Confirmed Therapeutic drug monitoring / SNOMED CT 689994408 / Confirmed Spasticity / SNOMED CT 406457362 / Confirmed Right spastic hemiparesis / SNOMED CT 641689910 / Confirmed Peripheral neuropathy / SNOMED CT 291043194 / Confirmed Mural thrombus of cardiac apex / SNOMED CT 974544942 / Confirmed Iron deficiency anemia / SNOMED CT 430137394 / Confirmed Insomnia / SNOMED CT 395866318 / Confirmed PATY (iron deficiency anemia) / SNOMED CT 478859310 / Confirmed Hypertension / SNOMED CT 9278832062 / Confirmed History of ischemic stroke / SNOMED CT 3867407318 / Confirmed Hidradenitis suppurativa / SNOMED CT 85330774 / Confirmed GERD (gastroesophageal reflux disease) / SNOMED CT 999508834 / Confirmed Depression / SNOMED CT 32624874 / Confirmed Controlled substance agreement signed 10/16/22 / SNOMED CT 906473406 / Confirmed Chronic pain / SNOMED CT 166744391 / Confirmed Chronic ischemic left ICA stroke / SNOMED CT 1167069231 / Confirmed [facility] Care Management, 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 Respiratory Normal. Cardiovascular Normal. Abdominal Normal. Pain Assessment The Quality is sharp and throbbing. The severity is moderate and 7 / 10 on the severity scale. Exacerbating factors: movement, palpation. Relieving factors: medication. Pain interventions: medication. Effects of pain: on daily life, on sleep. Results Review Results Today's Results : ALL RESULT SECTIONS 09/05/2023 1:04 EDT WBC 6.2 k/mm3 RBC 3.06 m/mm3 L Hgb 7.7 Gm/dL L Hct 25.6 % L MCV 83.7 femtoliters MCH 25.2 pg L MCHC 30.1 g/dL L Platelet Count 560 k/mm3 H RDW-SD 67.9 femtoliters H MPV 8.3 femtoliters L Nucleated RBC (Automated) 0.0 #/100 WBC'S Abs. 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 APS consulted for pain control. Pt currently taking Gabapentin 600mg TID, Duloxetine 30mg QD, Tylenol 650mg q4h, Oxycodone 30mg PO Q4hrly, and IV Dilaudid 2mg q4h. Patient endorses significant improvement in pain control with increase in Oxycodone dosing. As pain control improved, continue to wean IV opioids to off. Recommendations: - Continue Duloxetine 30mg QD - Continue Gabapentin 600mg TID - Decrease IV Dilaudid to 2mg q8h for severe breakthrough pain only. Plan to wean off over the nextfew days. - Continue Tylenol 650mg q4h - Continue Oxycodone to 30 mg q4hr. Plan to wean as clinically appropriate - Ensure physical therapy and OOB as tolerated - APS will sign off at this time. Please reconsult as necessary. Discussed with APS attending construction representative Dr. Garcia. Thank you allowing Acute Pain Services to participate in the care of this patient. Please page [phone] with any questions. Consult note * Rosa Arellano RN: PERFORM, SIGN, VERIFY Event Display: Consultation Note Authored Date: [id number] Patient: ERNESTO MCQUEEN Age: 38 years Sex: Male : 1985 Associated Diagnoses: None Author: Rosa Arellano RN History of Presenting Problem Date of Service 09/03/2023 Wound RN consult entered by S64 RN this morning to assess Left hip and buttocks pain and make topical recommendations. As seen in previous note, Wound RN consulted this admission as well for these wounds, at time passed onto provider these wounds were managed by surgery on his recent admission and more appropriate for them to follow up, especially if coming in for increased pain. Discussed further that on last admission beginning of this month surgery team following daily with wound care recommendations. Wound RN at this time deferred wound care recommendations to surgical team, appropriatefor continuity of care. MD agreeable for Wound RN consult to be discontinued. Plan Time spent 0-15 minutes * Rosa Arellano RN: PERFORM, SIGN, VERIFY Event Display: Consultation Note Authored Date: [id number] Patient: ERNESTO MCQUEEN Age: 38 years Sex: Male : 1985 Associated Diagnoses: None Author: Rosa Arellano RN History of Presenting Problem Date of Service 08/30/2023 Wound RN consult entered to assess right gluteal and lateral thigh wounds and make topical recommendations. Per brief chart review these areas were followed last admission by EGS surgery, now admitted for severe pain to R gluteal/thigh wounds. [facility] MANAGER Simi Diaz this morning due to physician transition, made aware of above and appropriate for continuity of care with surgical team. Stated she will pass this information on, aware Wound RN consult to be discontinued. Plan Time spent 0-15 minutes * Radha BURNS, Mary Tamez: PERFORM Event Display: Consultation Note Authored Date: [id number] Patient: ??ERNESTO MCQUEEN ? Age:??38 Years?Sex:??Male?:??1985?? Chief Complaint/Reason for Consult Pt presents from home w/ worsening R hip pain. 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 Reports no relief from pain w/ home meds. History of Present Illness 38-year-old male with history of left ICA stroke with residual right-sided spastic hemiparesis and dysarthria, mural thrombus of cardiac apex on Eliquis, severe hidradenitis status post left buttock hidradenitis excision by plastic surgery at [facility] in 03/04 follows with plastic surgery and dermatology,?? who was recently admitted to [facility]08/19 to 08/22 and is status post I&D for acutely infectedhidradenitis of right gluteus on 08/20. He had been receiving local wound care at home and was readmitted today due to right hip pain. EGS requested to evaluate wounds for surgical intervention. ?? Pt states that he had been receiving wound care by visiting nurses and came to the hospital for evaluation secondary to pain in his right hip area. He tells me that he was sent home without any analgesics. Dressings were removed at bedside. ??right gluteal??area: several open wounds. packing removed, wound beds with pink granulation and no signs of infection. areas redressed with wet to dry dressings and dsd. pt tolerated well. Labs reviewed, pt afebrile, no leukocytosis, and nontoxic appearing. CT Left lower extremity revealed skin thickening with subcutaneous phlegmon and inflammatory stranding in the posterior subcutaneous fat of the right hip and proximal thigh. No focal fluid collection or abscess. Right inguinal lymphadenopathy is likely reactive. ?? Review of Systems Constitutional: no fever, chills, sweats, weakness Cardiac: no chest pain, no dizziness, no lightheadedness, no syncope Respiratory: no wheezing, coughing, or sputum production, no sob with activity.?? Neuro: no changes in memory, vision or hearing, no seizures GI: no abdominal pain, nausea, vomiting, diarrhea, constipation. : no dysuria or hematuria Musculoskeletal: no joint pain or muscle pain Hematologic: no hematuria, melena, epistaxis or easy bruising Integument: no rash, sores, lumps. right hip pain/discomfort Lymphatics: No enlarged lymph nodes Psychiatric: no depression or anxiety Endocrine: no reports of sweating, no cold or heat intolerance. No polyuria or polydipsia All other systems reviewed and negative except as noted in HPI Objective?? Physical Exam Vitals & Measurements T:??98.2?F?? HR:??70??(Peripheral)?? RR:??18?? BP:??100/45?? SpO2:??96%?? HT:??193??cm?? WT:??91.4??kg?? BMI:??24.54?? General appearance: no acute distress, resting comfortably?? HEENT: Atraumatic, normocephalic. PERRL, EOM grossly intact, nonicteric. Neck: ??Supple, trachea midline. No JVD Respiratory: CTAB, easy respiratory effort, no wheeze, no accessory muscle use Cardiac:?? heart rate regular, warm, pink, dry Abdomen: round, soft, NT, ND +bowel sounds x4 quadrants, no HSM appreciated?? Extremities: no edema, SMITH, ??2+ radial, 2+ dorsalis pedis pulses Integument: Warm, dry, intact, no rash. ??right gluteal??area: several open wounds. packing removed, wound beds with pink granulation and no signs of infection. areas redressed with wet to dry dressings and dsd. pt tolerated well. Neurologic: A/O x3, CN grossly intact. No focal weakness Psychological: Appropriate mood and affect Assessment/Plan Diagnoses: Hidradenitis suppurativa (L73.2) ?? 38-year-old male with history of left ICA stroke with residual right-sided spastic hemiparesis and dysarthria, mural thrombus of cardiac apex on Eliquis, severe hidradenitis status post left buttock hidradenitis excision by plastic surgery at [facility] in 03/04 follows with plastic surgery and dermatology,?? who was recently admitted to [facility]??08/19 to 08/22 and is status post I&D for acutely infectedhidradenitis of right gluteus on 08/20. He had been receiving local wound care at home and was readmitted today due to right hip pain. EGS requested to evaluate wounds for surgical intervention. Dressings changed, wounds clean with pink granulation to wound beds??without any signs of infection. ?? Plan: local wound care No surgical intervention required at this time Turn and Reposition every 2 hours and as needed for patient comfort.?? Off Load all bony prominences. Monitor for incontinence and moisture control. Optimize nutrition. ?? OP FU with derm/plastics OP EGS signing off remainder of care per primary team ?? Discussed with Dr. Garcia [id number] ?? Problem List/Past Medical History Ongoing [facility] Care Management, Tool And Die Maker Apprentice Carmen Elizabeth [phone] Chronic ischemic left ICA stroke Chronic pain Controlled substance agreement signed 10/16/22 Depression GERD (gastroesophageal reflux disease) Hidradenitis suppurativa History of ischemic stroke Hypertension PATY (iron deficiency anemia) Insomnia Iron deficiency anemia Mural thrombus of cardiac apex Peripheral neuropathy Right spastic hemiparesis Spasticity Therapeutic drug monitoring Tobacco dependence Wound of buttock Procedure/Surgical History Operative procedure on hip: 2000 Home Medications Acetaminophen: 975 mg, By Mouth, 3 times a day, Can use over the counter Tylenol or substitute Amlodipine: 5 mg = 1 tablet, By Mouth, Daily Amoxicillin-Clavulanate: 1 tablet, By Mouth, Every 12 hours apixaban: See Instructions, TAKE 1 TABLET BY MOUTH TWICE A DAY Baclofen: 20 mg = 1 tablet, By Mouth, 4 times a day Cholecalciferol: 25 mcg = 1 tablet, By Mouth, Daily Docusate: 100 mg = 1 capsule, By Mouth, 2 times a day Doxycycline: 100 mg = 1 capsule, By Mouth, 2 times a day Duloxetine: TAKE 1 CAPSULE BY MOUTH EVERY DAY Durable Medical Equipment (Vashe wound solution): See Instructions, Use 45mL daily Ferrous Sulfate: 325 mg = 1 tablet, By Mouth, 2 times a day, TAKE 1 TABLET BY MOUTH EVERY DAY Folic Acid: 1 mg = 1 tablet, By Mouth, Daily, TAKE 1 TABLET BY MOUTH EVERY DAY THAT YOU ARE NOT TAKING METHOTREXATE Gabapentin: 600 mg = 1 tablet, By Mouth, 3 times a day Hydroxyurea: 500 mg, By Mouth, Daily nalOXONE: 4 mg = 1 sprays, Nares, Both, Once, To be used use one spray in one nostril. if an additional dose is needed, alternate nostril. may repeat every 2 to 3 minutes until patient responds Oxycodone: 12.5 mg = 2.5 tablet, By Mouth, Every 4 hours, Please take 2.5 tablets (12.5 mg) every 4hours as needed for moderate to severe pain. MassPat checked on 07/15 (filled 3 day supply, 45 tablets) Pantoprazole: 40 mg, By Mouth, Daily Tizanidine: 4 mg = 2 tablet, By Mouth, Every 8 hours, PRN (as needed for muscle spasm) Allergies NKA Social History Alcohol Use: Current. Other: 10 drinks per week. Electronic Cigarette/Vaping Electronic Cigarette Use: Never. Substance Abuse Use: Current. Type: Marijuana. Tobacco Use: 5-9 cigarettes (between 1/4 to 1/2 pack)/day in last 30 days. Family History Mother: Asthma Brother: Asthma Radiology 08/30/2023: CT Left lower extremity revealed skin thickening with subcutaneous phlegmon and inflammatory stranding in the posterior subcutaneous fat of the right hip and proximal thigh. No focal fluidcollection or abscess. Right inguinal lymphadenopathy is likely reactive. Lab Results Labs Last 24 Hours BLOOD COUNT & DIFF ? Event Name?? Event Result?? Date/Time?? WBC 9 k/mm3 08/30/23 01:38:00 RBC 3.13 m/mm3??Low 08/30/23 01:38:00 Hgb 7.9 Gm/dL??Low 08/30/23 01:38:00 Hct 26.7 %??Low 08/30/23 01:38:00 MCV 85.3 femtoliters 08/30/23 01:38:00 MCH 25.2 pg??Low 08/30/23 01:38:00 MCHC 29.6 g/dL??Low 08/30/23 01:38:00 Platelet Count 604 k/mm3??High 08/30/23 01:38:00 MPV 8.4 femtoliters??Low 08/30/23 01:38:00 Nucleated RBC (Automated) 0 #/100 WBC'S 08/30/23 01:38:00 ? CHEM GENERAL ? Event Name?? Event Result?? Date/Time?? Sodium HEMOLYZED 08/30/23 01:38:00 Chloride 102 mmol/L 08/30/23 01:38:00 Bicarbonate Level HEMOLYZED 08/30/23 01:38:00 Anion Gap Unable to calculate 08/30/23 01:38:00 Glucose Level 100 mg/dL??High 08/30/23 01:38:00 BUN 21 mg/dL??High 08/30/23 01:38:00 Creatinine-Blood HEMOLYZED 08/30/23 01:38:00 ? * Ross Garcia MD: PERFORM Event Display: Consultation Note Authored Date: [id number] I have seen and examined the patient, the above note summarizes my encounter on the recorded date Note * Ashlie Major RN: PERFORM Event Display: Discharge/Transfer Note Hospital Authored Date: [id number] Nursing Discharge Note Entered On: 09/06/2023 16:10 EDT Performed On: 09/06/2023 16:09 EDT by Ashlie Major RN Nursing Discharge Note 2 Discharge Time : 09/06/2023 16:15 EDT Discharge Level of Care at Discharge : Homehealth/VNA Discharge VNA/Hospice/Home Care(v001) : [facility] [phone] Patient Left Unit Via : Ambulance Patient Accompanied Off Unit with : Ambulance/Chair Van Personnel Handover Given to Transport Personnel : Yes DC Instructions Provided & Signed by Pt : Yes Patient Understands D/C Instructions : Yes Verbalized Understanding of D/C Plan By : Patient Patient Instructions Discharge Signed : Yes Did Pt have Specialty Bed or Wound Vac : Xiomara Major RN, Ashlie Stover - 09/06/2023 16:09 EDT * Glenys Bucio MD: PERFORM, MODIFY, MODIFY, MODIFY Event Display: Discharge/Transfer Note Hospital Authored Date: Patient: ??ERNESTO MCQUEEN ? Age:??38 Years?Sex:??Male?:??1985?? Patient Information ?? UPDATE: After I completed d/c paperwork, later in the day I received a call from [facility] on [facility], and pharmacist informed me that the patient had an Rx for oxycodone 5mg po tablets, # 150 tablets, filled and picked up today (presumably by family) Thus, [facility] will CANCEL my rx for oxycodone 20mg tablet # 30 detailed below. Patient can take the amount that I recommended (20mg po q4 hrs PRN, ok to take less) using the 5mg tablets (family just picked up 150 tablets). Pt needs to followup with PCP for further Rx. I called pt's mother to clarify this, and she confirmed that she just picked up the oxycodone Rx today (# 150 tablets). ? Discharge Location: 4 Primary Care Physician: Derek Tomas MD Admit Date/Time: 08/30/23 03:32 Discharge Disposition Discharge Disposition: Home with Home Health Discharge Diagnosis Hidradenitis suppurativa (L73.2) Intractable pain (R52) History of CVA with residual deficit (I69.30) Chronic pain syndrome (G89.4) Depression (F32.A) HTN (hypertension) (I10) Mural thrombus of heart (I51.3) Thrombocytosis (D75.839) _ Discharge Medications Acetaminophen (acetaminophen 325 mg oral tablet)?975?Milligram?By Mouth?3 times a day?Can use over the counter Tylenol or substitute Amlodipine (amLODIPine 5 mg oral tablet)?5?Milligram?1?tablet?By Mouth?Daily apixaban (Eliquis 5 mg oral tablet)?See Instructions?TAKE 1 TABLET BY MOUTH TWICE A DAY Ascorbic Acid (ascorbic acid 500 mg oral tablet)?1?tab(s)?500?Milligram?By Mouth?Daily Baclofen (baclofen 20 mg oral tablet)?20?Milligram?1?tablet?By Mouth?4 times a day Cholecalciferol (Vitamin D3 1000 intl units oral tablet)?1?tab(s)?25?Microgram?By Mouth?Daily Docusate (docusate sodium 100 mg oral capsule)?1?capsule?By Mouth?2 times a day Duloxetine (duloxetine 30 mg oral enteric coated capsule)?1?capsule?30?Milligram?By Mouth?Daily?for 30?Days?TAKE 1 CAPSULE BY MOUTH EVERY DAY Durable Medical Equipment (Vashe wound solution)?See Instructions?Use 45mL daily Ferrous Sulfate (ferrous sulfate 325 mg oral tablet)?1?tab(s)?325?Milligram?By Mouth?2 times a day?for 90?Days?TAKE 1 TABLET BY MOUTH EVERY DAY Folic Acid (folic acid 1 mg oral tablet)?1?Milligram?1?tablet?By Mouth?Daily?TAKE 1 TABLET BY MOUTH EVERY DAY THAT YOU ARE NOT TAKING METHOTREXATE Gabapentin (gabapentin 600 mg oral tablet)?1?tab(s)?600?Milligram?By Mouth?3 times a day Hydroxyurea (hydroxyurea 500 mg oral capsule)?500?Milligram?By Mouth?Daily?for 30?Days nalOXONE (Narcan 4 mg/0.1 mL nasal spray)?1?spray(s)?4?Milligram?Nares, Both?Once?To be used use one spray in one nostril. if an additional dose is needed, alternate nostril. mayrepeat every 2 to 3 minutes until patient responds Oxycodone (oxyCODONE 20 mg oral tablet)?1?tab(s)?20?Milligram?By Mouth?Every 4 hours?as needed?Pain , Moderate?for 5?Days?As your pain improves, you can take this less often (every 6 hrs or every 8 hrs); followup with your primary doctor for further refills (will likely taper down gradually). Pantoprazole (pantoprazole 40 mg oral delayed release tablet)?40?Milligram?By Mouth?Daily Polyethylene Glycol 3350 (MiraLax oral powder for reconstitution)?17?gram?By Mouth?Daily?as needed?Constipation?for 30?Days Tizanidine (tiZANidine 2 mg oral tablet)?4?Milligram?2?tablet?By Mouth?Every 8 hours?as needed?as needed for muscle spasm ? UPDATE: After I completed d/c paperwork, later in the day I received a call from [facility] on [facility], and pharmacist informed me that the patient had an Rx for oxycodone 5mg po tablets, # 150 tablets, filled and picked up today (presumably by family) Thus, [facility] will CANCEL my rx for oxycodone 20mg tablet # 30 detailed below. Patient can take the amount that I recommended (20mg po q4 hrs PRN, ok to take less) using the 5mg tablets (family just picked up 150 tablets). Pt needs to followup with PCP for further Rx. I called pt's mother to clarify this, and she confirmed that she just picked up the oxycodone Rx today (# 150 tablets). Medications Started a 5 day Rx was written for oxycodone 20mg tablet, q4 hrs PRN moderate pain (total 30 tablets); I checked MassPat. Of note, pt was previously on 30mg q4 earlier in his stay, but I spoke to Acute Pain service, and they recommended gradually reducing this dose as he transitions to outpatient setting ? Allergies Allergies ?(Active and Proposed Allergies Only) NKA? (Severity: Unknown severity, Onset: Unknown) ? PCP Follow-Up/Heads-Up Needs very close followup with PCP and specialists; has a Plastic Surgery appointment next week ?? Future Appointments Saturday 4:00 PM EDT ?? With: Ed Mustafa MD Where: [facility] Plastic Surgery [address] [place] [phone] Status: Pending Objective This is a very nice 38-year-old gentleman with history of left ICA stroke with residual right-sidedspastic hemiparesis and dysarthria, mural thrombus of cardiac apex on Eliquis, severe hidradenitis status post left buttock hidradenitis excision by plastic surgery at [facility] in 03/04 follows with plastic surgery and dermatology, recent admission 08/19 to 08/22 status post I&D for acutely infected hidradenitis of right gluteus/10 Blood cultures obtained on admission at that time positive for gram-positive cocci in clusters, ID was on board and patient was discharged on Augmentin/doxycycline till 09/03, iron deficiency anemia, thrombocytosis on hydroxyurea, chronic pain syndrome, hypertension, depression presenting to the emergency department due to severe pain related to his right gluteal/right thigh wounds. Acute Pain Service consulted, and continue to provide recommendations as pt is gradually transitioned off IV narcotic analgesics. ? Hidradenitis suppurativa (L73.2): . Intractable pain (R52): -Presented with severe intractable pain in the right gluteal/right thigh secondary to hidradenitis suppurativa ??-Was recently admitted 08/19 to 08/22 status post I&D for acutely infected hidradenitis of rightgluteus, blood cultures obtained on admission at that time positive for gram-positive cocci in clusters, ID was on board and patient was subsequently discharged on Augmentin/doxycycline till 09/03 (now completed) ??-No fever or chills, no leukocytosis noted, no signs of sepsis ??-CT right lower extremity per preliminary reports with no evidence of abscess or deep tissue infection I discussed in detail with Acute pain services, who followed patient during his hospital stay. Theyadvised gradual reduction of dilaudid IV, and pt said he no longer needs dilaudid IV and is eager to go home 09/05. He had been on oxycodone 30mg q4, and APS advised gradual reduction in dose; will d/c on oxycodone 20mg for now, with close followup with PCP - Continue Duloxetine 30mg QD - Continue Gabapentin 600mg TID - Continue Tylenol 650mg q4h - Continue Oxycodone to 20 mg q4hr PRN for now, anticipate gradual reduction in outpt setting We are holding off on any NSAIDs, since pt is on full dose anticoagulation Home VNA/PT ?? 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 c/w baclofen, c/w tizanidine as needed for spasm, does not appear to be on statin, rec outpt f/uwith PCP ??on apixaban ?? Chronic pain syndrome (G89.4): continue with gabapentin ? Depression (F32.A): continue with duloxetine ? HTN (hypertension) (I10): c/w amlodipine ? GERD (gastroesophageal reflux disease) (K21.9): c/w PPI ? Iron deficiency anemia (D50.9): continue with ferrous sulfate, added ascorbic acid as well to aid in absorption.??Continue to monitor and evaluate furthe rin th eoutpatient setting ? Mural thrombus of heart (I51.3): continue with apixaban ? Thrombocytosis (D75.839): continue with hydroxyurea ?? VTE Prophylaxis: Already on apixaban ? VTE Prophylaxis Assessment: VTE Prophylaxis Ordered ? Code Status: Full code ? Vital Signs?? Temperature: 98.7 DegF (09/06/23 05:00:00) Temperature Route: Oral (09/06/23 05:00:00) Pulse Rate: 70 bpm (09/06/23 05:00:00) Respiratory Rate: 18 br/min (09/06/23 13:03:00) Systolic Blood Pressure: 117 mm Hg (09/06/23 08:32:00) Diastolic Blood Pressure:??50 mm Hg??Low (09/06/23 08:32:00) Blood pressure sites: Arm, left (09/06/23 05:00:00) Mean Arterial Pressure: 73 mm Hg (09/05/23 19:48:00) Pulse Pressure: 67 mm Hg (09/05/23 19:48:00) Oxygen Saturation: 99 % (09/06/23 05:00:00) Mode of Delivery (Oxygen): Room air (09/06/23 05:00:00) Early Warning Score: 0 (09/06/23 13:03:34) ? . Physical Exam alert, just worked with PT; eager to go home today said his pain is much better?? we discussed the acute pain service recommendations that he not take IV pain med unless he absolutely needed it, and to gradually reduce the oxycodone dose (reduced to 20mg q4 hrs PRN, and gave a 5 day supply of 30 tablets); I advised him to call for PCP followup,?and I let him know that his PCPwill likely reduce gradually on next Rx.?? He said he wants to go home today, via ambulance-- CM will set up?? VSS?? No new focal deficits apparent calm and appears much more comfortable? Patient Education Titles WebMD Ignite Patient Education - Oxycodone Oral Tablet?? Web[employer] Ignite Patient Education - Understanding Hidradenitis Suppurativa?? Follow-Up Appointments Added Follow Up ?Time Frame ?Comments Please followup with all of your usual doctors. Return if you have bleeding, fever, cannot eat/drink, or have any other worrisome symptoms Please return if you have fever, chest pain, trouble breathing, neck pain, vision changes, or any other worrisome symptoms. Do not take naprosyn, Aleve, Motrin, ibuprofen or other similar medications. OK to take Tylenol, aka acetaminophen. drink plenty of fluids; return for evaluation if you notice decreased urination, or have vomiting or other worrisome symptoms Ed Giatsidis?4 ?? Days Derek Colon-Webb?3 to 5 days?Call today for an appointment Patient Instructions You completed the course??of??antibiotics. Per Surgery: Continue Daily dressing changes (dry sterile dressing) . Turn and Reposition at least every 2 hours close followup-- has appt??with Plastic Surgery next week on 09/09?? Home Health Face to Face *Denotes mandatory burton ?? *I certify that this patient is under my care and that I or an allowed non- physician working with me had a face to face encounter with the patient on this date:??09/06/2023 13:21 ?? *The encounter with the patient was in whole, or in part, for the following medical condition, which is the primary diagnosis(es) for home health care:??Hidradenitis suppurativa (L73.2) Intractable pain (R52) History of CVA with residual deficit (I69.30) Chronic pain syndrome (G89.4) Depression (F32.A) HTN (hypertension) (I10) Mural thrombus of heart (I51.3) Thrombocytosis (D75.839) ?? *Select the indications for the discipline/s that are being arranged for this patient. Nursing (select all that apply): [_] None [_#] Medication management (reconciliation, teaching)?? [_#] Chronic disease management?? [#_] Wound care and treatment?? [#_] Home safety evaluation [_] Administer SQ/IM/IV medications?? [_] Cath care?? [_] Drain care?? [_] Trach or GT care?? Other _Wound care, per surgery: Continue local wound care, dry sterile dressing change daily and PRN soilage. Turn and Reposition every 2 hours and as needed for patient comfort.?? Off Load all bony prominences.... OP followup with Plastic Surgery 09/09 Occupation Therapy (select all that apply): [_] None [#_] ADL Management [#_] Fall prevention training [#_] Energy conservation [_] Cognitive training Other _ Physical Therapy (select all that apply): [_] None [_#] Functional mobility training [#_] Home exercise program to strengthen [_#] Increase ROM?? [#_] Falls prevention training [_#] Home maintenance program for chronic disease Other _ Speech Therapy (select all that apply): [_] None [_] Swallow evaluation and training [_] Speech and language training [_] Cognitive training to process, organize, and/or recall information Other _ ? *Homebound due to (select all that apply): [_] Inability to leave home without assistance/supervision [#_] Inability to ambulate without assistance [_] Pain [#_] Decreased strength and endurance [_] Unsteady gait [_] Severe SOB and fatigue [#_] Impaired transfers [_] Inability to negotiate stairs [_] Limited weight bearing [_] Mental status change? *Physician Signature: _Glenys Bucio MD ?? *By signing this, I certify that I have personally evaluated the patient and agree with the findings and recommendations as documented above. ? Results Microbiology ?? Blood Culture?? Completed?? Source: Blood Body Site: ?? Collected Dt/Tm: 08/30/2023 01:38 Last Updated Dt/Tm: 08/31/2023 13:11 ?? Blood Culture #2?? Collected?? Source: Blood Body Site: ?? Collected Dt/Tm: 08/30/2023 01:38 Last Updated Dt/Tm: 08/30/2023 00:05 ?? Blood Culture Result?? Completed?? Source: Blood Body Site: ?? Collected Dt/Tm: 08/30/2023 01:38 Last Updated Dt/Tm: 08/31/2023 13:12 ? _55 minutes spent on discharge * Olga Clancy RN: PERFORM, SIGN, VERIFY Event Display: Case Management Discharge Plan Authored Date: [id number] Patient: ERNESTO MCQUEEN Age: 38 years Sex: Male : 1985 Associated Diagnoses: None Author: Olga Clancy RN Discharge Plan Case Management Discharge Plan : Case Management Discharge Plan Data 09/06/2023 9:32 EDT Discharge Level of Care at Discharge Homehealth/VNA Discharge VNA/Hospice/Home Care [facility] [phone] Discharge Transportation Arranged [facility] [address] [place] [phone] Mode of Transportation Arranged Ambulance Name of Agency #1 [facility] Agency [facility] # Service Categories #1 Occupational Therapy, Physical Therapy, Halfway, Wound Care Service Comments #1 You are returning home with continued services from [facility]. Please call them at [phone] if you do not hear from them in 48 hours. * Radha Randall RN: PERFORM Event Display: Patient Education/Instruction Authored Date: [id number] Inpatient Adult Discharge Instructions. [address] [address] Name: ERNESTO MCQUEEN : 1985?? Visit: 08/30/2023 03:32?? Current Date: 09/06/2023 14:59 ?? Account: [id number]?? Inpatient Adult Discharge Instructions We would like [...] and their families. Surveys are administered by [employer] ?? If further treatment with your primary care physician or another doctor is recommended, it is important for you to keep the appointment. Call your primary care physician or return to the Emergency Department immediately if your condition worsens, fails to improve, or new symptoms develop. If you need to find a doctor, you can call [facility] [employer] Link for a referral at [phone] or toll free at [phone]) or log in to [email or web address].. ?? [facility], in keeping with [facility] guidance, no longer requires face masks for [...] a health care boyd of your choosing. [employer] is a website that allows you to securely view your medical information including your hospital discharge summary, office visit summaries, medications and follow-up visits. You can also request appointments, renew medications, and request access to your medical information using a health care boyd of your choosing, or just ask a question. You can enroll at [email or web address] or register during your next office visit. You have been discharged from [facility], Patient Care Unit: S3??. If you have any questions regarding these instructions, including results of studies pending, afteryou leave, please call us and we will be happy to assist you 03/12. [facility] Your Care Team Attending Physician Glenys Bucio MD?? Consulting Providers Glenys Bucio MD?? Discharging Providers Glenys Bucio MD Reason for Your Visit Pt presents from home w/ worsening R hip pain. 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 Reports no relief from pain w/ home meds.?? Your Diagnosis Chronic pain syndrome Depression Hidradenitis suppurativa History of CVA with residual deficit HTN (hypertension) Intractable pain Mural thrombus of heart Thrombocytosis Tests Performed Below is a partial list of the tests performed during your hospitalization. You may have had other tests and procedures not included in this list. Please discuss all test results with your provider. Basic Metabolic Panel Blood Culture Blood Culture #2?-- Results Pending -- Blood Culture Result BUN CBC CBC w/ Differential Comprehensive Metabolic Panel Creatinine Lipid Panel Lytes Urinalysis w/hold for Urine Culture CT Ext Lower W/ IV Contrast Right Doppler Ext Upper Venous Left (US) You will be contacted within 72 hours with your results. Blood Culture #2?? Primary Care Provider Derek Tomas MD? Advance Directive Health Care Proxy on File Yes - Health Care Proxy Discharge Vitals Temperature: 98.2 DegF Height: 193 cm Pulse Rate: 76 bpm Weight: 91.4 kg Respiratory Rate: 18 br/min Body Mass Index: 24.54 kg/m2 Systolic Blood Pressure: 130 mm Hg Body surface area: 2.21 Diastolic Blood Pressure: 60 mm Hg ?? Oxygen Saturation: 97 % ?? Studies Pending All studies ordered during this hospital stay have been completed unless listed below. Please discuss all pending results with your provider listed above in these instructions. ?? Blood Culture #2?? What to do next Instructions From Your Doctor You completed the course??of??antibiotics. Per Surgery: Continue Daily dressing changes (dry sterile dressing) . Turn and Reposition at least every 2 hours close followup-- has appt??with Plastic Surgery next week on 09/09? Orders?? give pt some dressing supplies at discharge., ??09/06/23 13:27:00 EDT all Rx to [facility] on [facility], ??09/06/23 13:25:00 EDT?? Prescriptions??, ??09/06/23 13:25:00 EDT?? Scheduled Follow-Up Appointments Saturday 4:00 PM EDT ?? With: Ed Mustafa MD Where: [facility] Plastic Surgery [address] [place] [phone]- Status: Pending You Need to Schedule the Following Appointments Follow Up with??Ed Mustafa When:??In 4 days 09/10/2023 EDT Where: [address] [facility], [address] [facility] [place] [address]- Business (1) Follow Up with??Please followup with all of your usual doctors. Return if you have bleeding, fever,cannot eat/drink, or have any other worrisome symptoms Follow Up with??Please return if you have fever, chest pain, trouble breathing, neck pain, vision changes, or any other worrisome symptoms. Follow Up with??Do not take naprosyn, Aleve, Motrin, ibuprofen or other similar medications. OK to take Tylenol, aka acetaminophen. Follow Up with??drink plenty of fluids; return for evaluation if you notice decreased urination, orhave vomiting or other worrisome symptoms Follow Up with??Derek Tomas When:??Within 3 to 5 days Why: Call today for an appointment Where: [place] [address]- Business (1) Discharge Medications ERNESTO MCQUEEN :1985 Visit Date:08/30/2023 Medications: Please continue your medications until treatment is completed or stopped by your provider. Medications not listed below should be discontinued. Discuss any questions related to medications with your provider. What How Much When Why Instructions Next Dose New Ascorbic Acid (ascorbic acid 500 mg oral tablet) 1 tab(s) Oral Daily Pickup at [facility]/pharmacy #[id number] 4/27 AM New Oxycodone (oxyCODONE 20 mg oral tablet) 1 tab(s) Oral Every 4 hours as needed for Pain , Moderate Duration: 5 Days As your pain improves, you can take this less often (every 6 hrs or every 8 hrs); followup with your primary doctor for further refills (will likely taper down gradually). ?? Pickup at [facility]/pharmacy #2070 last dose 1pm New Polyethylene Glycol 3350 (MiraLax oral powder for reconstitution) 17 gram Oral Daily as needed for Constipation Duration: 30 Days Pickup at [facility]/pharmacy #[id number] as needed Changed Docusate (docusate sodium 100 mg oral capsule) 1 capsule Oral Twice a day 09/05 PM Changed Duloxetine (duloxetine 30 mg oral enteric coated capsule) 1 capsule Oral Daily Duration: 30 Days TAKE 1 CAPSULE BY MOUTH EVERY DAY ?? 09/06 AM Unchanged Acetaminophen (acetaminophen 325 mg oral tablet) 975 Milligram Oral 3 times a day Can use over the counter Tylenol or substitute ?? as needed Unchanged Amlodipine (amLODIPine 5 mg oral tablet) 1 tab(s) Oral Daily 09/06 Unchanged apixaban (Eliquis 5 mg oral tablet) See instructions TAKE 1 TABLET BY MOUTH TWICE A DAY ?? 09/05 PM Unchanged Baclofen (baclofen 20 mg oral tablet) 1 tab(s) Oral 4 times a day 09/05 5pm Unchanged Cholecalciferol (Vitamin D3 1000 intl units oral tablet) 1 tab(s) Oral Daily 09/06 Unchanged Durable Medical Equipment (Vashe wound solution) See instructions Hydradenitis Use 45mL daily ?? 09/06 Unchanged Ferrous Sulfate (ferrous sulfate 325 mg oral tablet) 1 tab(s) Oral Twice a day Duration: 90 Days TAKE 1 TABLET BY MOUTH EVERY DAY ?? 09/05 PM Unchanged Folic Acid (folic acid 1 mg oral tablet) 1 tab(s) Oral Daily TAKE 1 TABLET BY MOUTH EVERY DAY THAT YOU ARE NOT TAKING METHOTREXATE ?? not methotrexate days Unchanged Gabapentin (gabapentin 600 mg oral tablet) 1 tab(s) Oral 3 times a day 09/05 PM Unchanged Hydroxyurea (hydroxyurea 500 mg oral capsule) 500 Milligram Oral Daily Duration: 30 Days 09/06 Unchanged nalOXONE (Narcan 4 mg/ 0.1 mL nasal spray) 1 spray(s) Nares, Both Once To be used use one spray in one nostril. if an additional dose is needed, alternate nostril. may repeat every 2 to 3 minutes until patient responds ?? emergency use Unchanged Pantoprazole (pantoprazole 40 mg oral delayed release tablet) 40 Milligram Oral Daily 09/06 Unchanged Tizanidine (tiZANidine 2 mg oral tablet) 2 tab(s) Oral Every 8 hours as needed for as needed for muscle spasm as needed Pharmacy Information [facility]/pharmacy #[id number]: [address], [place] [phone] Prescription Given During Visit Ascorbic Acid (ascorbic acid 500 mg oral tablet) - 1 tablet = 500 mg, By Mouth, Daily, # 30 tablet,0 Refills, [facility]/pharmacy #0, [address] [place] [phone]?? Oxycodone (oxyCODONE 20 mg oral tablet) - 1 tablet = 20 mg, By Mouth, Every 4 hours, # 30 tablet, 0Refills, As your pain improves, you can take this less often (every 6 hrs or every 8 hrs); followupwith your primary doctor for further refills (will likely taper down gradually)., [id number], [address] [place] [phone]?? Polyethylene Glycol 3350 (MiraLax oral powder for reconstitution) - 17 Gm, By Mouth, Daily, # 30 each, 0 Refills, [facility], [address] [place] [phone]?? Laboratory Results Below is a partial list of the most recent Laboratory test results done prior to this discharge. You may have had other tests and procedures not included in this list. Please discuss all test resultswith your provider. Est Creatinine Clearance - 177.31 mL/min (09/05/2023) Basic Metabolic Panel (09/04/2023) ???Sodium - 135 mmol/L???Potassium - 4.8 mmol/L???Chloride - 99 mmol/L???Bicarbonate Level - 29 mmol/L???Anion Gap - 7???Glucose Level - 88 mg/dL???BUN - 18 mg/dL???Creatinine-Blood - 0.9 mg/dL???Estimated GFR Creatinine - 115 ML/MIN/1.73 M2???Calcium - 9.0 mg/dL Blood Culture (08/30/2023) ???Blood Culture Results - Final report???Blood Culture Specimen Source - BLOOD Blood Culture Result (08/30/2023) ???Blood Culture Isolate 1 - Comment BUN (08/31/2023) ???BUN - 22 mg/dL CBC (09/05/2023) ???WBC - 6.2 k/mm3???RBC - 3.06 m/mm3???Hgb - 7.7 Gm/dL???Hct - 25.6 %???MCV - 83.7 femtoliters???MCH - 25.2 pg???MCHC - 30.1 g/dL???Platelet Count - 560 k/mm3???RDW-SD - 67.9 femtoliters???MPV - 8.3femtoliters???Nucleated RBC (Automated) - 0.0 #/100 WBC'S???Abs. NRBC - 0.0 k/mm3 CBC w/ Differential (08/30/2023) ???WBC - 9.0 k/mm3???RBC - 3.13 m/mm3???Hgb - 7.9 Gm/dL???Hct - 26.7 %???MCV - 85.3 femtoliters???MCH - 25.2 pg???MCHC - 29.6 g/dL???Platelet Count - 604 k/mm3???RDW-SD - 67.1 femtoliters???MPV - 8.4femtoliters???Nucleated RBC (Automated) - 0.0 #/100 WBC'S???Abs. NRBC - 0.0 k/mm3???Abs. Neut - 5.9 k/mm3???Abs. Lymph - 2.3 k/mm3???Abs. [place] - 0.7 k/mm3???Abs. Eo - 0.1 k/mm3???Abs. Baso - 0.0 k/mm3???Neut % - 65.7 %???Lymph % - 25.2 %???[place] % - 7.2 %???Eos % - 1.2 %???Baso % - 0.4 %???Imm Gran - 0.3 %???Abs. Imm Gran - 0.0 k/mm3 Comprehensive Metabolic Panel (09/05/2023) ???Sodium - 137 mmol/L???Potassium - 4.6 mmol/L???Chloride - 100 mmol/L???Bicarbonate Level - 30 mmol/L???Anion Gap - 7???Glucose Level - 109 mg/dL???BUN - 19 mg/dL???Creatinine-Blood - 0.7 mg/dL???Estimated GFR Creatinine - 120 ML/MIN/1.73 M2???Calcium - 8.8 mg/dL???Protein, Total - 6.9 Gm/dL???Alb umin - 3.3 Gm/dL???AG Ratio - 0.9???Alkaline Phosphatase - 120 units/L???AST (SGOT) - 6 units/L???ALT (SGPT) - 7 units/L? ?Bilirubin, Total - <0.2 mg/dL Creatinine (08/31/2023) ???Creatinine-Blood - 0.8 mg/dL???Estimated GFR Creatinine - 116 ML/MIN/1.73 M2 Lipid Panel (09/05/2023) ???Cholesterol - 132 mg/dL???Triglycerides - 123 mg/dL???HDL Cholesterol - 36 mg/dL???LDL Cholesterol - 71 mg/dL???Non HDL Cholesterol - 96 mg/dL Lytes (08/31/2023) ???Sodium - 137 mmol/L???Potassium - 4.2 mmol/L???Chloride - 104 mmol/L???Bicarbonate Level - 25 mmol/L???Anion Gap - 8 Urinalysis w/hold for Urine Culture (08/30/2023) ???Appear/Color, Urine - YELLOW???Specific Dennison, Urine - 1.046???pH, Urine - 6.0???Albumin, Urine - 1+???Glucose, Urine - NEGATIVE???Ketones, Urine - TRACE???Bilirubin, Urine - NEGATIVE???Hemoglobin, Urine - NEGATIVE???Nitrite, Urine - NEGATIVE???Leukocyte, Urine - NEGATIVE???Urobilinogen - 2 mg/dL???WBC's, Urine - 1 /HPF???RBC's, Urine - NONE SEEN???Squamous Epith - 2 /HPF???Calcium Oxal - SLIGHT???Mucus - HEAVY???Hold Urine Culture - Testing available 48 hours from time of collection. Allergies (NKA means No Known Allergies) NKA Problems Active Problems??(19) [facility] [employer] Carmen Elizabeth [phone]?? Chronic ischemic left ICA stroke?? Chronic pain?? Controlled substance agreement signed 10/16/22?? Depression?? GERD (gastroesophageal reflux disease)?? Hidradenitis suppurativa?? History of ischemic stroke?? Hypertension?? PATY (iron deficiency anemia)?? Insomnia?? Iron deficiency anemia?? Mural thrombus of cardiac apex?? Peripheral neuropathy?? Right spastic hemiparesis?? Spasticity?? Therapeutic drug monitoring?? Tobacco dependence?? Wound of buttock?? Education Materials Below is the list of Educational Leaflet Providered with your Discharge Instructions. [employer] Patient Education - Oxycodone Oral Tablet?? [employer]ite Patient Education - Understanding Hidradenitis Suppurativa?? Valuables and Belongings I fully understand and agree that [facility] accepts no responsibility for all [...] witness Date for Pt to Sign Valuables/Belongings: 09/06/23 14:29:00 ?? Other Discharge Information ? Case Management Discharge Plan?? Discharge Plan?? Discharge Agency Information?? Discharge Level of Care at Discharge: Homehealth/VNA Name of Agency #1: [facility] Discharge Transportation Arranged: [facility] [address] [phone] Agency [facility]1: [phone] Mode of Transportation Arranged: Ambulance Service Categories #1: Occupational Therapy, Physical Therapy, Halfway, Wound Care Discharge VNA/Hospice/Home Care: [facility] [phone] Service Comments #1: You are returning home with continued services from [facility]. Please call them at [phone] if you do not hear from them in 48 hours. ?? Pulmonary Rehab Status?? Pulmonary Rehab Discharge [...] are strongly encouraged to quit. Please call [facility] [employer] Link at [phone] or [phone] ([phone]) or log in to [email or web address] for referrals to smoking cessation programs. ?? 997 Suicide & Crisis Lifeline is available 03/12 if you or someone you know needs to find a reason to keep living. By calling 312 you'll be connected to a skilled, trained counselor at a crisis center in your area. INPATIENT DISCHARGE INSTRUCTIONS SIGNATURE PAGE ERNESTO MCQUEEN Location:[facility] Registration Date and Time:08/30/2023 03:32 EDT Primary Care Physician: Derek Tomas MD, Attending Physician: Glenys Bucio MD, I ERNESTO MCQUEEN, have received the above patient education materials/instructions and have verbalized understanding. If ambulance or transport services are being used I further acknowledge being given a choice of service. ?? If you need to contact me, please call me at this number: . Patient/Tire Groover Name: Patient/Tire Groover Signature: Relationship to Patient: Witness Name/Signature: Date: * Glenys Bucio MD: PERFORM, SIGN, VERIFY Event Display: Patient Education Handout Authored Date: [id number] * Glenys Bucio MD: PERFORM Event Display: Patient Education Leaflets Authored Date: [id number] Oxycodone Oral Tablet ?? [id number] Oxycodone Oral Tablet Brands: Roxicodone Uses For pain. ?? Instructions This medicine may be taken with or without food. Swallow with a full glass (8 oz) of water unless your doctor gives you different instructions. Store at room temperature away from heat, light, and moisture. Do not keep in the bathroom. Please ask your doctor, nurse, or pharmacist how to discard unused medicines safely. To reduce constipation, eat high fiber foods, drink plenty of water and exercise. Avoid grapefruit and grapefruit juice while on this medicine. Drug interactions can change how medicines work or increase risk for side effects. Tell your healthcare providers about all medicines taken. Include prescription and iobs-itc-gelvxwx medicines, vitamins, and herbal medicines. Speak with your doctor or pharmacist before starting or stopping any medicine. Tell your doctor if symptoms do not get better or if they get worse. ?? Cautions This medicine has an opioid. Opioids help many people but may cause addiction, especially if used for a long time. The addiction risk is higher if you have a substance use disorder (overuse of or addiction to drugs or alcohol). Ask your doctor about the benefits and risks. Ask your doctor or pharmacist if you should have naloxone on hand to treat opioid overdose. Teach your family or household members about the signs of an opioid overdose and how to treat it. If you stop this medicine suddenly after using it for a long time, you may have withdrawal. Your doctor may slowly lower your dose before stopping it. Tell your doctor right away if you have symptoms, such as unusual sweating, watering eyes, runny nose, chills, diarrhea, yawning, muscle aches, restlessness, anxiety, trouble sleeping, or thoughts of suicide. Tell your doctor and pharmacist if you ever had an allergic reaction to a medicine. Do not use the medication any more than instructed. If possible, avoid using with alcohol, marijuana, or other medicines that can cause dizziness or drowsiness. These include allergy/cold products, muscle relaxers, sleep aids, and pain relievers. Your ability to stay alert or to react quickly may be impaired by this medicine. Do not drive or operate machinery until you know how this medicine will affect you. This medicine passes into breast milk. Ask your doctor before . This medicine can hurt a new baby in the womb. If you become while on this medicine, tell your doctor immediately. Your doctor may switch you to a different medicine. This medicine should be used with caution in patients with breathing difficulties. Call your doctor right away if you notice slow or shallow breathing. Do not share this medicine with anyone who has not been prescribed this medicine. Some patients have serious side effects from this medicine. Ask your pharmacist to show you the information from the Food and Drug Administration (FDA) and discuss it with you. ?? Side Effects The following is a list of some common side effects from this medicine. Please speak with your doctor about what you should do if you experience these or other side effects. ??? decreased appetite ??? constipation ??? dizziness or drowsiness ??? lightheadedness ??? nausea and vomiting If you have any of the following side effects, you may be getting too much medicine. Please contactyour doctor to let them know about these side effects. ??? confusion ??? fainting ??? unusual or unexplained tiredness or weakness ??? difficulty or discomfort urinating Call your doctor or get medical help right away if you notice any of these more serious side effects: ??? agitated feeling or trouble sleeping ??? decreased awareness or responsiveness ??? breathing interruption during sleep ??? shallow, irregular breathing ??? changes in memory, mood, or thinking ??? hallucinations (unusual thoughts, seeing or hearing things that are not real) ??? seizures ??? severe stomach or bowel pain ??? weight loss A few people may have an allergic reaction to this medicine. Symptoms can include difficulty breathing, skin rash, itching, swelling, or severe dizziness. If you notice any of these symptoms, seek medical help quickly. ?? Extra Please speak with your doctor, nurse, or pharmacist if you have any questions about this medicine. ?? [email or web address] IMPORTANT NOTE: This document tells you briefly how to take your medicine, but it does not tell youall there is to know about it. Your doctor or pharmacist may give you other documents about your medicine. Please talk to them if you have any questions. Always follow their advice. There is a more complete description of this medicine available in [place]i. Scan this code on your smartphone or tablet or use the web address below. You can also ask your pharmacist for a printout. If you have any questions, please ask your pharmacist. The display and use of this drug information is subject to Terms of Use. Copyright(c) 2023 [employer]. ?? [employer]. All rights reserved. This information is not intended as a substitute for professional medical care. Always follow your healthcare professional's instructions. ?? * Glenys Bucio MD: PERFORM Event Display: Patient Education Leaflets Authored Date: [id number] Understanding Hidradenitis Suppurativa ?? [address] Understanding Hidradenitis Suppurativa Hidradenitis suppurativa is a long-term (chronic) inflammatory skin disease. It causes painful bumps and sores (abscesses) to form around a hair follicle. Follicles are the tiny holes from which hairgrows out of your skin. The disease occurs on parts of the body where skin rubs together. It most often appears in the armpits, inner thighs, the groin area, and under the breasts. It's more common in women. ??How to say it MW-jisw-toi-NI-tihs [id number]-tm-[id number]-JUSTICE-vuh ?? What causes hidradenitis suppurativa? This skin disease happens when hair follicles become clogged with keratin. Keratin is the protein that makes up your hair and nails. As keratin and sweat build up, the bacteria start multiplying inside the hair follicle. The follicles then burst spilling keratin and bacteria, into the surrounding hair follicles and skin. This provokes an inflammatory response and the skin becomes inflamed. This stage presents as a deep painful pimple (nodule) or painful and swollen lump filled with pus (abscess). In severe cases, pus-filled channels called sinus tracts form under the skin. The inflamed skin heals by scarring. Over the years, repeated flare-ups will produce thick bands of scars that might limit your movements. Cote factors that can worsen a pre-existing Hidradenitis suppurativa include: ??? Pressure or rubbing on the skin, ??? Friction between skin folds ??? Increased sweat productionand retention ??? Triggers such as menstruation, weight gain, stress, hormonal changes, excessive heat and sweating. The disease appears to have both hereditary and environmental influences. It tends to run in families. It???s also more likely to occur in people who are obese, have diabetes, or smoke. Hormones or the immune system may also play a part. Bacteria do not appear to be a causative agent in this condition. It is important to understand that Hidradenitis suppurativa is ??? NOT caused by lack of or poor personal hygiene ??? NOT contagious and does not spread from person to person via direct or indirect contact ?? Symptoms of hidradenitis suppurativa This skin disease causes 1 or more painful red bumps on the skin. These bumps become inflamed and drain pus. They may also itch or burn. In severe cases, sinus tracts may form. These are narrow pus-filled channels that run under the skin. Blood or a bad-smelling pus may ooze from these bumps or sinus tracts. Bands of scarring often occur. ?? Treatment for hidradenitis suppurativa Treatment for this skin disease is most successful when started early. But it may be hard to diagnose. It may be mistaken for other skin conditions. The painful bumps also often return. So, treating existing bumps, minimizing pain and drainage, preventing disease progression, stopping new bumps, decreasing the frequency of recurrence, and limiting scarring is important. Treatment choices include:??? Warm compress. Putting a warm, wet washcloth [...] prevent further infection. ??? Other oral medicines. Mhjf-bqd-dueefxl pain medicinescan ease pain and inflammation. You may need stronger medicines for a severe case. These medicines include corticosteroids or oral retinoid. These may cause side effects. Anti-androgenic hormonal therapy can also be helpful in a few selected cases. ??? Injected medicines. A steroid may be injected into the bump to ease pain. A newer biologic medicine is given by IV. It may be used for severe symptoms. ??? Surgery. Surgery can drain and remove the painful bumps. For severe cases, the healthcare provider may cut out the entire area of affected skin that has bumps, tracts, and scars. Other options include using localized laser and pulsed light therapy, which help to disrupt the inflammatory process. ??? Management of underlying conditions that contribute to the development of or worsening of Hidradenitis suppurativa. ??? Self-care: The following suggestions of self-care at home might provehelpful in managing your illness. o Avoiding skin trauma. o Not wearing tight and synthetic clothing o Avoiding harsh skincare products or cleaning tools (loofahs, washcloths, brushes) o Avoiding adhesive dressings o Using soft dressings with clear petroleum jelly or non-occlusive dressings to prevent irritating bumps or abscesses. ?? Possible complications of hidradenitis suppurativa These include: ??? Limb contractures, Arthritis, and impaired mobility ??? Psychosocial distress due to drainage, odor, and location of lesions. It includes Depression, social isolation, decreased relationship satisfaction, sexual dysfunction, and reduced work productivity. ??? Lymphedema ??? Scarring of skin ??? Long-term effects of chronic inflammation such as anemia, hyperproteinemia, and amyloidosis. ??? Skin cancer ?? When to call [...] symptoms ?? Last Reviewed Date: 2021 ?? 3336-1632 [employer]. All rights reserved. This information is not intended as a substitute for professional medical care. Always follow your healthcare professional's instructions. ?? Patient Care team information Care Team Personnel Name: Anu Lipscomb Position: [facility] RN Member Role: Primary Care Nurse Name: Areli Pittman RN Position: [facility] [place] RN W/OE and Tasks Member Role: Primary Care Nurse Name: Derek Tomas MD Position: [facility] Resident Member Role: PCP Address: Address: [address] [place] [address] Name: Monique Irwin LPN Position: S RN Member Role: Primary Care Nurse Name: Lianna Epstein RN Position: S RN Member Role: Primary Care Nurse Name: Vicenta Barnett RN Position: S RN Member Role: Primary Care Nurse Name: Farhana Garcia RN Position: S RN Member Role: Primary Care Nurse Name: Ricardo Russell RN Position: S RN Member Role: Primary Care Nurse Name: Gissell Jernigan RN Position: S RN Member Role: Primary Care Nurse Name: Farhana Green RN Position: [facility] RN Member Role: Primary Care Nurse Name: Cydney Delgado RN Position: [facility] RN Member Role: Primary Care Nurse Name: Sharon Mendez RN Position: [facility] RN Member Role: Primary Care Nurse Name: Mookie Christianson RN Position: [facility] RN Member Role: Primary Care Nurse Name: Ally Boyd RN Position: [facility] RN Member Role: Primary Care Nurse Name: Javed Oneill RN Position: [facility] RN Member Role: Primary Care Nurse Name: Lynn Stewart RN Position: [facility] RN Member Role: Primary Care Nurse Name: Amanda Johnson RN Position: [facility] RN Member Role: Primary Care Nurse Name: Jolie Villalobos RN Position: [facility] RN Member Role: Primary Care Nurse Name: Axel Savage RN Position: [facility] RN Member Role: Primary Care Nurse Name: Dirk Driver RN Position: [facility] RN Member Role: Primary Care Nurse Name: Glenys Bee RN Position: [facility] RN Member Role: Primary Care Nurse Name: Praveen Maurer Position: [facility] RN Member Role: Primary Care Nurse Name: Filemon King RN Position: [facility] RN Member Role: Primary Care Nurse Name: Lauren Guevara RN Position: [facility] RN Member Role: Primary Care Nurse Name: Annamaria Quinn RN Position: [facility] RN Member Role: Primary Care Nurse Name: Jada Waller RN Position: [facility] RN Member Role: Primary Care Nurse Name: Lashawn Nagy RN Position: [facility] RN Member Role: Primary Care Nurse Name: Glenys Fox RN Position: [facility] RN Member Role: Primary Care Nurse Care Team Related Persons Name: JUHI BEVERLY Address: [place] [address] Name: AISLINN DE LA PAZ Address: home [address] [place] [address]
--- OUTSIDE RECORDS SUMMARY | 2024-01-21 19:29 | XMS_ITS | Continuity of Care Document ---
Author Organization [facility] Address [address] [place] [address]- Care Team Providers Care Liquid Loader Name Role Phone Genoveva PAGAN, Derek Primary Care Physician Encounter [facility] Date(s): 11/13/23 - 12/13/[address] [address]- Allergies, Adverse Reactions, Alerts No Known Allergies Immunizations Given and Recorded Vaccine Date Status Refusal Reason influenza virus vaccine, inactivated 05/18/22 Give n tetanus/diphtheria/pertussis, acel(Tdap) 09/13/19 Recorded Medications acetaminophen 500 mg oral tablet 2 tablet = 1,000 mg, By Mouth, 3 times a day, PRN for pain, # 100 tablet, 6 Refills, Acute 05/12/2415:40:00 EST, 10/25/23 15:40:00 EDT, Tablet, [facility]/pharmacy #[id number], Partial fill upon patient request if the prescription is for a schedule II opioid drug... Start Date: 10/25/23 Stop Date: 05/12/24 Status: Ordered amLODIPine 5 mg oral tablet 5 mg, 1, tablet, By Mouth, Daily, # 30 tablet, Refills 0, Tot. Refills 0, Maintenance, 06/17/23 8:53:00 EST, Route to Pharmacy Electronically, [facility], Partial fill upon patient request if [...] 08/06/23 9:00:00 EDT, Route to Pharmacy Electronically, [facility]/pharmacy #[id number], 182, cm, 07/26/23 9:16:00 EDT, Height, 89, kg, 07/03/23 11:22:00 EST, Dry Weight Start Date: 08/06/23 Status: Ordered clindamycin 1% topical gel APPLY TO AFFECTED AREA TOPICALLY TWICE A DAY Start Date: 11/17/23 Status: Ordered docusate sodium 100 mg oral capsule 1 capsule, By Mouth, 2 times a day, # 60 capsule, 11 Refills, Maintenance, 09/03/23 17:44:00 EDT, [id number], 193, cm, 09/03/23 14:09:00 EDT, Height, 91.4, kg, 08/30/23 12:03:00 EDT, Dry Weight Start Date: 09/03/23 Status: Ordered duloxetine 30 mg oral enteric coated capsule 1 capsule = 30 mg, By Mouth, 2 times a day, TAKE 1 CAPSULE BY MOUTH EVERY DAY, # 60 capsule, 6 Refills, Maintenance, 10/25/23 15:39:00 EDT, Capsule, [facility]/pharmacy #[id number], Partial fill upon patient [...] 0 Refills, Maintenance, 10/16/23 15:51:00 EDT, [id number], 193, cm, 10/04/23 3:49:00 EDT, Height, 90.4, [...] tablet, 11 Refills, Maintenance, 08/12/23 13:51:00EDT, Tablet, [facility]/pharmacy #[id number], Partial fill upon patient request if the prescription is for a schedule II opioid drug., 182, cm, 07/26/23 9:16:00 EDT... Start Date: 08/12/23 Status: Ordered hydroxyurea 500 mg oral capsule 1 capsule, By Mouth, Daily, # 30 capsule, 0 Refills, Maintenance, 12/11/23 14:15:00 EDT, [id number], 194, cm, 11/20/23 13:14:00 EDT, Height, 93.9, [...] 12/24/23 13:33:00 EDT, 11/26/23 13:33:00 EDT, Tablet, [facility]/pharmacy #[id number], Partial fill upon patient [...] 08/12/23 13:51:00 EDT, Route to Pharmacy Electronically, [facility]/pharmacy #[id number], Partial fill upon patient [...] 0 Refills, Maintenance, 07/16/23 10:05:00 EST, Tablet, [facility], Partial fill upon patient [...] Team Personnel Name: Anu Lipscomb RN Position: [facility] RN Member Role: Primary Care Nurse Name: Jeanne Bryant RN Position: [facility] RN Member Role: Primary Care Nurse Name: Mitch Guido RN Position: [facility] RN Member Role: Primary Care Nurse Name: Areli Pittman RN Position: [facility] ED RN W/OE and Tasks Member Role: Primary Care Nurse Name: Derek Tomas MD Position: [facility] Resident Member Role: PCP Address: Address: [address] [place] [address] Name: Mari Suh RN Position: [facility] RN Member Role: Primary Care Nurse Name: Monique Irwin LPN Position: [facility] RN Member Role: Primary Care Nurse Name: Lianna Epstein RN Position: [facility] RN Member Role: Primary Care Nurse Name: Austin Wright RN Position: [facility] RN Member Role: Primary Care Nurse Name: Mk Knutson LPN Position: [facility] RN Member Role: Primary Care Nurse Name: Betty Fonseca RN Position: [facility] RN Member Role: Primary Care Nurse Name: Farhana Garcia RN Position: [facility] RN Member Role: Primary Care Nurse Name: Kenyatta Villegas RN Position: [facility] RN Member Role: Primary Care Nurse Name: Albertina Adams RN Position: [facility] RN Member Role: Primary Care Nurse Name: Ricardo Russell RN Position: [facility] RN Member Role: Primary Care Nurse Name: Gissell Jernigan RN Position: [facility] RN Member Role: Primary Care Nurse Name: Farhana Green RN Position: [facility] RN Member Role: Primary Care Nurse Name: Cydney Delgado RN Position: [facility] RN Member Role: Primary Care Nurse Name: Debbie Rios RN Position: [facility] RN Member Role: Primary Care Nurse Name: Sharon Mendez RN Position: [facility] RN Member Role: Primary Care Nurse Name: Mookie Christianson RN Position: [facility] RN Member Role: Primary Care Nurse Name: Ally Boyd RN Position: [facility] RN Member Role: Primary Care Nurse Name: Javed Oneill RN Position: [facility] RN Member Role: Primary Care Nurse Name: Frances Quach RN Position: [facility] RN Member Role: Primary Care Nurse Name: Sandie Mejia RN Position: [facility] RN Member Role: Primary Care Nurse Name: Kriss Castillo RN Position: [facility] RN Member Role: Primary Care Nurse Name: Lynn Stewart RN Position: [facility] RN Member Role: Primary Care Nurse Name: Amanda Johnson RN Position: [facility] RN Member Role: Primary Care Nurse Name: Jolie Villalobos RN Position: [facility] RN Member Role: Primary Care Nurse Name: Axel Savage RN Position: [facility] RN Member Role: Primary Care Nurse Name: Dirk Driver RN Position: [facility] RN Member Role: Primary Care Nurse Name: Glenys Bee RN Position: [facility] RN Member Role: Primary Care Nurse Name: Praveen Maurer RN Position: [facility] RN Member Role: Primary Care Nurse Name: Filemon King RN Position: [facility] RN Member Role: Primary Care Nurse Name: Gomez Corona RN Position: [facility] RN Member Role: Primary Care Nurse Name: Lauren Guevara RN Position: [facility] RN Member Role: Primary Care Nurse Name: Annamaria Quinn RN Position: [facility] RN Member Role: Primary Care Nurse Name: Lashawn Nagy RN Position: [facility] RN Member Role: Primary Care Nurse Name: Rhonda Tate LPN Position: [facility] RN Member Role: Primary Care Nurse Name: Jacquelin Naranjo RN Position: S RN Member Role: Primary Care Nurse Name: Glenys Fox RN Position: S RN Member Role: Primary Care Nurse Name: Reilly Moreno RN Position: S RN Member Role: Primary Care Nurse Care Team Related Persons Name: JUHIKAMILLE WHEELERA Address: home [address] [place] [address] Name: HEENA MCQUEEN Address: home [address] [place] [address] Name: AISLINN DE LA PAZ Address: home [address] [place] [address]
--- OUTSIDE RECORDS SUMMARY | 2024-01-21 19:29 | XMS_ITS | Continuity of Care Document ---
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) - 06/07/23 Wounds and injuries(Final) - 06/07/23 Chronic pain(Final) - 06/07/23 Discharge Disposition: A-D/C Home Attending Physician: Ubaldo Maldonado MD Admitting Physician: Ubaldo Maldonado MD Referring Physician: Not on Staff, Referring [...] # 30 tablet, 11 Refills, Physician Stop 05/28/24 13:25:00 EST, 06/03/23 13:25:00 EST, [facility], 193, cm, 06/01/23 9:54:00 EST, Height, 90.9, kg, 06/01/23 9:54:00 EST, Dry Weight Start Date: 06/03/23 Stop Date: 05/28/24 Status: Ordered amLODIPine 5 mg oral tablet 5 mg, Tablet, By Mouth, 06/08/23 9:00:00 EST Start Date: 06/08/23 Stop Date: 06/08/23 Status: Completed baclofen 10 mg oral tablet 20 mg, Tablet, By Mouth, 06/08/23 9:00:00 EST Start Date: 06/08/23 Stop Date: 06/08/23 Status: Completed baclofen 20 mg oral tablet 20 mg, 1, tablet, By Mouth, 4 times a day, # 120 tablet, Refills 0, Tot. Refills 0, Maintenance, 06/03/23 13:25:00 EST, Route to Pharmacy Electronically, [facility], 193, cm, 06/01/23 9:54:00 EST, [...] fax to [facility] Start Date: 11/01/22 Status: Ordered doxycycline hyclate [...] Daily, # 30 capsule, 5 Refills, Maintenance, 06/03/23 13:25:00 EST, [facility], 193, cm, 06/01/23 9:54:00 EST, Height, 90.9, kg, 06/01/23 9:54:00 EST, Dry Weight Start Date: 06/03/23 Status: Ordered Eliquis 5 mg oral tablet 1 tablet, By Mouth, 2 times a day, # 60 tablet, 11 Refills, 02/07/22 11:13:00 EDT, [facility]/pharmacy #[id number], 193, cm, 02/07/22 10:31:00 EDT, Height, 97.2, kg, 10/26/21 9:21:00 EDT, Dry Weight Start Date: 02/07/22 Status: Ordered fentanyl 12 mcg/hr transdermal film, extended release 1 patch, Topically, Every 72 hours, # 5 patch, 0 Refills, Maintenance, 06/03/23 16:06:00 EST, Patch, [facility]/pharmacy #[id number], Partial fill upon patient request if the prescription is for a schedule II opioid drug., 193, cm, 06/01/23 9:54:00 EST, Height, 90... Start Date: 06/03/23 Status: Ordered ferrous sulfate 325 mg oral tablet 1 tablet = 325 mg, By Mouth, Daily, TAKE 1 TABLET BY MOUTH EVERY DAY NEEDED Start Date: 09/12/22 Status: Ordered folic acid 1 mg oral tablet 1 mg, 1, tablet, By Mouth, Daily, TAKE 1 TABLET BY MOUTH EVERY DAY THAT YOU ARE NOT TAKING METHOTREXATE Start Date: 09/12/22 Status: Ordered gabapentin 300 mg oral capsule 300 mg, Capsule, By Mouth, 06/08/23 9:00:00 EST Start Date: 06/08/23 Stop Date: 06/08/23 Status: Completed gabapentin 300 mg oral capsule 300 mg, 1, capsule, By Mouth, 3 times a day, # 270 capsule, Refills 0, Tot. Refills 0, Maintenance,05/22/23 23:48:00 EST, Route to Pharmacy Electronically, [facility]/pharmacy #[id number], Partial fill upon patient request if [...] capsule, 5 Refills, Maintenance, 08/13/22 15:28:00 EDT, [facility]/pharmacy #[id number], 193.04, cm, 07/23/22 14:07:00 EDT, Height, 99.6, kg, 06/06/22 18:00:00 EST, Dry Weight Start Date: 08/13/22 Status: Ordered oxyCODONE 5 mg oral tablet 10 mg, 2, tablet, By Mouth, Every 6 hours, PRN, # 24 tablet, Refills 0, Tot. Refills 0, Maintenance, as needed for pain, 06/03/23 16:06:00 EST, Route to Pharmacy Electronically, [facility]/pharmacy #[id number], Partial fill upon patient request if the prescription... Start Date: 06/03/23 Status: Ordered oxyCODONE 5 mg oral tablet 10 mg, 2, tablet, By Mouth, Every 6 hours, PRN, Take 1-2 tablets depending on severity of pain upto4 times a day., # 30 tablet, Refills 0, Tot. Refills 0, Maintenance, Pain , Severe, 05/28/23 8:49:00 EST, Route to Pharmacy Electronically, [facility]... Start Date: 05/28/23 Status: Ordered oxyCODONE 5 mg oral tablet 10 mg, 2, tablet, By Mouth, Every 6 hours, PRN, Please take 1 or 2 tablets if you are having severepain, every 6 hours as needed, # 12 tablet, Refills 0, Tot. Refills 0, Acute 06/12/23 12:00:00 EST,Pain , Severe, 06/08/23 11:54:00 EST, Route to Phar... Start Date: 06/08/23 Stop Date: 06/12/23 Status: Ordered Right ankle & foot orthosis Right ankle & foot orthosis, See Instructions, # 1 each, Refills 1, Tot. Refills 1, Maintenance, Please dispense 1 right ankle and foot othosis Dx: R29.898, R26.81, M25.373 Length of need: 99 months Number to fax to: [phone], 01/06/21 13:10:00 E... Start Date: 01/06/21 Status: [...] apex Confirmed Active [facility] Care Management, [employer] Edger Carmen Elizabeth [phone] Confirmed Active Therapeutic drug monitoring Confirmed Active Peripheral neuropathy Confirmed Active Right spastic hemiparesis Confirmed Active Spasticity Confirmed Active Tobacco dependence Confirmed Active Vital Signs Most recent to oldest [Reference Range]: 1 2 3 4 Oxygen Saturation [94-100 %] 98 % (06/08/23 12:22 PM) 99 % (06/08/23 11:00 AM) 100 % (06/08/23 7:16 AM) Pulse Rate [55-90 bpm] 78 bpm (06/08/23 12:22 PM) 72 bpm (06/08/23 11:00 AM) 75 bpm (06/08/23 7:16 AM) Blood Pressure [90-138/55-84 mm Hg] 138/74mm Hg (06/08/23 12:22 PM) 137/74mm Hg (06/08/23 11:00 AM) 133/79mm Hg (06/08/23 8:18 AM) Respiratory Rate [16-30 br/min] 17 br/min (06/08/23 12:22 PM) 20 br/min (06/08/23 11:00 AM) 22 br/min (06/08/23 8:18 AM) 22 br/min (06/08/23 8:18 AM) Temperature [96.8-100.4 DegF] 98.2 DegF (06/08/23 12:22 PM) 98.6 DegF (06/08/23 12:32 AM) 99.0 DegF (06/07/23 7:30 PM) Mode of Delivery (Oxygen) Room air (06/08/23 12:22 PM) Room air (06/08/23 11:00 AM) Room air (06/08/23 7:16 AM) Blood pressure sites Arm, left (06/08/23 12:22 PM) Arm, left (06/08/23 11:00 AM) Arm, left (06/08/23 7:16 AM) Temperature Route Oral (06/08/23 12:32 AM) Oral (06/07/23 7:30 PM) Oral (06/07/23 5:57 PM) Social History Social History Type Response Smoking Status 5-9 cigarettes (betw een 1/4 to 1/2 pack)/day in last 30 days entered on: 05/16/22 Sex Note * Janae BUSTAMANTE, Drea Yanez: PERFORM, SIGN, VERIFY Event Display: Case Management Discharge Plan Authored Date: [id number] Patient: ERNESTO MCQUEEN Age: 37 years Sex: Male : 1985 Associated Diagnoses: None Author: Drea Cardoso RN Discharge Plan Case Management Discharge Plan : Case Management Discharge Plan Data 06/08/2023 10:23 EST Discharge Level of Care at Discharge Homehealth/VNA Discharge VNA/Hospice/Home Care [facility] [phone] Discharge Transportation Arranged Amer Med Response [address] [facility] [id number] Mode of Transportation Arranged Ambulance Name of Agency #1 [facility] Agency Reporter Anchor #1 [employer] Service Categories #1 Occupational Therapy, Physical Therapy, Snf, Walker Service Comments #1 You are being discharged home with [facility] for physical therapy, occupational therapy and longterm. Name of Person Notified of Transfer Cynthia Diaz, mother [phone] Patient Care team information Care Team Personnel Name: Areli Pittman RN Position: [facility] ED RN W/OE and Tasks Member Role: Primary Care Nurse Name: Derek Tomas MD Position: [facility] Resident Member Role: PCP Address: Address: [address] [place] [id number]- Name: Ally Boyd RN Position: [facility] RN Member Role: Primary Care Nurse Name: Axel Savage RN Position: [facility] RN Member Role: Primary Care Nurse Name: Filemon King RN Position: [facility] RN Member Role: Primary Care Nurse Name: Lashawn Nagy RN Position: [facility] RN Member Role: Primary Care Nurse Name: Glenys Fox RN Position: [facility] RN Member Role: Primary Care Nurse Care Team Related Persons Name: CYNTHIA DIAZ Address: home [address] [place] [address] Name: AISLINN DE LA PAZ Address: home [address] [place] [address]
--- OUTSIDE RECORDS SUMMARY | 2024-01-21 19:29 | XMS_ITS | Continuity of Care Document ---
Author Organization [facility] Address [address] [place] [address]- Care Team Providers Care Chest Painting Leader Name Role Phone Genoveva PAGAN, Derek Primary Care Physician Encounter [facility] [place] Date(s): 06/05/23 - 07/05/[address] [address]- Allergies, Adverse Reactions, Alerts No Known Allergies [...] 06/17/23 8:53:00 EST, Route to Pharmacy Electronically, [facility], Partial fill upon patient request if the prescription is for a schedule II opioid... Start Date: 06/17/23 Status: Ordered baclofen 20 mg oral tablet 20 mg, 1, tablet, By Mouth, 4 times a day, # 120 tablet, Refills 0, Tot. Refills 0, Maintenance, 06/03/23 13:25:00 EST, Route to Pharmacy Electronically, [facility], 193, cm, 06/01/23 9:54:00 EST, Height, 90.9, kg, 06/01/23 9:54:00 EST,... Start Date: 06/03/23 Status: Ordered duloxetine 30 mg oral enteric coated capsule 1 capsule, By Mouth, Daily, # 30 capsule, 5 Refills, Maintenance, 06/12/23 6:45:00 EST, [facility]/pharmacy #[id number], 193, cm, 06/01/23 9:54:00 EST, Height, 90.9, kg, 06/01/23 9:54:00 EST, Dry Weight Start Date: 06/12/23 Status: Ordered Eliquis 5 mg oral tablet See Instructions, TAKE 1 TABLET BY MOUTH TWICE A DAY, # 60 tablet, 11 Refills, Maintenance, 06/12/23 6:31:00 EST, [facility] [id number], 193, cm, 06/01/23 9:54:00 EST, Height, 90.9, kg, 06/01/23 9:54:00 EST, Dry Weight Start Date: 06/12/23 Status: Ordered ferrous sulfate 325 mg oral tablet 1 tablet = 325 mg, By Mouth, Daily, TAKE 1 TABLET BY MOUTH EVERY DAY, # 30 tablet, 0 Refills, Maintenance, 06/12/23 6:46:00 EST, Tablet, [facility]/pharmacy #[id number], Partial fill upon patient request if [...] 06/12/23 6:46:00 EST, Route to Pharmacy Electronically, [facility]/pharmacy #[id number], Partial fill upon... Start Date: 06/12/23 Status: Ordered gabapentin 600 mg oral tablet 1 tablet = 600 mg, By Mouth, 3 times a day, # 90 tablet, 0 Refills, Maintenance, 06/21/23 12:34:00 EST, Tablet, [facility]/pharmacy #[id number], Partial fill upon patient request if [...] capsule, 5 Refills, Maintenance, 08/13/22 15:28:00 EDT, [facility]/pharmacy #[id number], 193.04, cm, 07/23/22 14:07:00 EDT, Height, [...] 06/21/23 12:37:00 EST, Route to Pharmacy Electronically, [facility]/pharmacy #[id number], Partial fill upon patient request if [...] apex Confirmed Active [facility] CP Care Management, Lead Shop Operator Carmen Elizabeth [phone] Confirmed Active Therapeutic drug monitoring Confirmed Active [...] Care Nurse Name: Areli Pittman RN Position: [facility] ED RN W/OE and Tasks Member Role: Primary Care Nurse Name: Derek Tomas MD Position: S Resident Member Role: PCP Address: Address: [address] [place] [address] Name: Farhana Green RN Position: S RN Member Role: Primary Care Nurse Name: Ally Boyd RN Position: S RN Member Role: Primary Care Nurse Name: Lynn Stewart RN Position: S RN Member Role: Primary Care Nurse Name: Jolie Villalobos RN Position: S RN Member Role: Primary Care Nurse Name: Axel Savage RN Position: S RN Member Role: Primary Care Nurse Name: Filemon King RN Position: [facility] RN Member Role: Primary Care Nurse Name: Lauren Guevara RN Position: [facility] RN Member Role: Primary Care Nurse Name: Lashawn Nagy RN Position: [facility] RN Member Role: Primary Care Nurse Name: Glenys Fox RN Position: [facility] RN Member Role: Primary Care Nurse Care Team Related Persons Name: BEVERLY REYNAGA Address: [place] [address] Name: AISLINN DE LA PAZ Address: home [address] [place] [address]
--- OUTSIDE RECORDS SUMMARY | 2024-01-21 19:29 | XMS_ITS | Continuity of Care Document ---
Author Organization [facility] Address [address] [place] [address]- Care Team Providers Care Dewaxer Name Role Phone Genoveva PAGAN, Derek Primary Care Physician Encounter [facility] [place] Date(s): 07/25/23 - 08/24/[address] [address]- Allergies, Adverse Reactions, Alerts No Known Allergies [...] 06/17/23 8:53:00 EST, Route to Pharmacy Electronically, [facility], Partial fill upon patient request if the prescription is for a schedule II opioid... Start Date: 06/17/23 Status: Ordered amoxicillin-clavulanate 875 mg-125 mg oral tablet 1 tablet, By Mouth, Every 12 hours, for 12 days, # 24 tablet, 0 Refills, Acute 09/04/23 15:52:00 EDT, 08/23/23 15:52:00 EDT, Tablet, [facility], Partial fill upon patient request if theprescription is for a schedule II opioid drug., 182... Start Date: 08/23/23 Stop Date: 09/04/23 Status: Ordered baclofen 20 mg oral tablet 20 mg, 1, tablet, By Mouth, 4 times a day, # 120 tablet, Refills 5, Tot. Refills 5, Maintenance, 08/06/23 9:00:00 EDT, Route to Pharmacy Electronically, [facility]/pharmacy #[id number], 182, cm, 07/26/23 9:16:00 EDT, Height, 89, kg, 07/03/23 11:22:00 EST, Dry Weight Start Date: 08/06/23 Status: Ordered docusate sodium 100 mg oral capsule 100 mg, 1, capsule, By Mouth, 2 times a day, # 60 capsule, Refills 0, Tot. Refills 0, Maintenance, 08/14/23 12:50:00 EDT, Route to Pharmacy Electronically, [facility]/pharmacy #[id number], Partial fill upon patient request if the prescription is for a schedule II... Start Date: 08/14/23 Stop Date: 09/13/23 Status: Ordered doxycycline hyclate 100 mg oral capsule 1 capsule = 100 mg, By Mouth, 2 times a day, for 12 days, # 24 capsule, 0 Refills, Acute 09/04/23 15:52:00 EDT, 08/23/23 15:52:00 EDT, Capsule, [facility], Partial fill upon patient request if the prescription is for a schedule II opioid... Start Date: 08/23/23 Stop Date: 09/04/23 Status: Ordered duloxetine 30 mg oral enteric coated capsule TAKE 1 CAPSULE BY MOUTH EVERY DAY Start Date: 08/20/23 Status: Ordered duloxetine 30 mg oral enteric coated capsule 2 capsule = 60 mg, By Mouth, Daily, # 60 capsule, 0 Refills, Maintenance, 07/16/23 9:56:00 EST, [facility], 182, cm, 07/04/23 14:56:00 EST, Height, 89, kg, 07/03/23 11:22:00 EST, Dry Weight Start Date: 07/16/23 Status: Ordered Eliquis 5 mg oral tablet See Instructions, TAKE 1 TABLET BY MOUTH TWICE A DAY, # 60 tablet, 11 Refills, Maintenance, 06/12/23 6:31:00 EST, [id number], 193, cm, 06/01/23 9:54:00 EST, Height, 90.9, kg, 06/01/23 9:54:00 EST, Dry Weight Start Date: 06/12/23 Status: Ordered ferrous sulfate 325 mg oral tablet 1 tablet = 325 mg, By Mouth, 2 times a day, TAKE 1 TABLET BY MOUTH EVERY DAY, # 180 tablet, 0 Refills, Maintenance, 08/14/23 12:47:00 EDT, Tablet, [facility]/pharmacy #[id number], Partial fill upon patient [...] 06/12/23 6:46:00 EST, Route to Pharmacy Electronically, [facility]/pharmacy #[id number], Partial fill upon... Start Date: 06/12/23 Status: Ordered gabapentin 600 mg oral tablet 1 tablet = 600 mg, By Mouth, 3 times a day, # 90 tablet, 11 Refills, Maintenance, 08/12/23 13:51:00EDT, Tablet, [facility]/pharmacy #[id number], Partial fill upon patient request if the prescription is for a schedule II opioid drug., 182, cm, 07/26/23 9:16:00 EDT... Start Date: 08/12/23 Status: Ordered hydroxyurea 500 mg oral capsule = 500 mg, By Mouth, Daily, for 30 days, # 30 capsule, 2 Refills, Acute 10/18/23 14:36:00 EDT, 07/20/23 14:36:00 EST, Capsule, [facility]/pharmacy #[id number], Partial fill upon patient [...] 0 Refills, Soft Stop, 08/23/23 15:54:00 EDT, [facility]... Start Date: 08/23/23 Status: Ordered oxyCODONE 5 mg oral tablet 5 mg, 1, tablet, By Mouth, Every 6 hours, PRN, for 5 days, # 20 tablet, Refills 0, Tot. Refills 0, Acute 08/28/23 15:51:00 EDT, Pain , Severe, 08/23/23 15:51:00 EDT, Route to Pharmacy Electronically,[facility], Partial fill upon patient... Start Date: 08/23/23 Stop Date: 08/28/23 Status: Ordered pantoprazole 40 mg oral delayed [...] 08/12/23 13:51:00 EDT, Route to Pharmacy Electronically, [facility]/pharmacy #[id number], Partial fill upon patient request if the [...] 0 Refills, Maintenance, 07/16/23 10:05:00 EST, Tablet, [facility], Partial fill upon patient [...] apex Confirmed Active N CP Care Management, Website Optimization Strategist Carmen Elizabeth [phone] Confirmed Active Therapeutic drug monitoring Confirmed Active Peripheral neuropathy Confirmed Active Right spastic hemiparesis Confirmed Active Spasticity Confirmed Active Tobacco dependence Confirmed Active Social History Social History Type Response Smoking Status 5-9 cigarettes (betw een 1/4 to 1/2 pack)/day in last 30 days entered on: 05/16/22 Sex Patient Care team information Care Team Personnel Name: Anu Lipscomb Position: [facility] RN Member Role: Primary Care Nurse Name: Areli Pittman RN Position: [facility] ED RN W/OE and Tasks Member Role: Primary Care Nurse Name: Derek Tomas MD Position: [facility] Resident Member Role: PCP Address: Address: [address] [place] [address] Name: Lianna Epstein RN Position: [facility] RN Member Role: Primary Care Nurse Name: Vicenta Barnett RN Position: [facility] RN Member Role: Primary Care Nurse Name: Farhana Garcia RN Position: [facility] RN Member Role: Primary Care Nurse Name: Farhana Green RN Position: S RN Member Role: Primary Care Nurse Name: Cydney Delgado RN Position: [facility] RN Member Role: Primary Care Nurse Name: Ally Boyd RN Position: [facility] RN Member Role: Primary Care Nurse Name: Javed Oneill RN Position: [facility] RN Member Role: Primary Care Nurse Name: Lynn Stewart RN Position: [facility] RN Member Role: Primary Care Nurse Name: Jolie Villalobos RN Position: [facility] RN Member Role: Primary Care Nurse Name: Axel Savage RN Position: [facility] RN Member Role: Primary Care Nurse Name: Glenys Bee RN Position: S RN Member Role: Primary Care Nurse Name: Praveen Maurer Position: [facility] RN Member Role: Primary Care Nurse Name: Filemon King RN Position: [facility] RN Member Role: Primary Care Nurse Name: Lauren Guevara RN Position: [facility] RN Member Role: Primary Care Nurse Name: Lashawn Nagy RN Position: [facility] RN Member Role: Primary Care Nurse Name: Glenys Fox RN Position: [facility] RN Member Role: Primary Care Nurse Care Team Related Persons Name: BEVERLY REYNAGA Address: [place] [address] Name: AISLINN DE LA PAZ Address: [address] [place] [address]
--- OUTSIDE RECORDS SUMMARY | 2024-01-21 19:30 | XMS_ITS | Continuity of Care Document ---
Author Organization [facility] Address [address] [place] [address]- Care Team Providers Care Bricklayer Supervisor Name Role Phone Derek Tomas MD Primary Care Physician Encounter [facility] Date(s): 08/05/23 - 09/04/[address] [address]- Allergies, Adverse Reactions, Alerts No Known Allergies [...] 06/17/23 8:53:00 EST, Route to Pharmacy Electronically, [facility], Partial fill upon patient request if the prescription is for a schedule II opioid... Start Date: 06/17/23 Status: Ordered baclofen 20 mg oral tablet 20 mg, 1, tablet, By Mouth, 4 times a day, # 120 tablet, Refills 5, Tot. Refills 5, Maintenance, 08/06/23 9:00:00 EDT, Route to Pharmacy Electronically, [facility]/pharmacy #[id number], 182, cm, 07/26/23 9:16:00 EDT, Height, 89, kg, 07/03/23 11:22:00 EST, Dry Weight Start Date: 08/06/23 Status: Ordered docusate sodium 100 mg oral capsule 1 capsule, By Mouth, 2 times a day, # 60 capsule, 11 Refills, Maintenance, 09/03/23 17:44:00 EDT, [id number], 193, cm, 09/03/23 14:09:00 EDT, Height, 91.4, kg, 08/30/23 12:03:00 EDT, Dry Weight Start Date: 09/03/23 Status: Ordered duloxetine 30 mg oral enteric coated capsule 1 capsule = 30 mg, By Mouth, Daily, TAKE 1 CAPSULE BY MOUTH EVERY DAY, # 30 capsule, 6 Refills, Maintenance, 09/03/23 17:47:00 EDT, Capsule, [facility]/pharmacy #[id number], Partial fill upon patient request if the prescription is for a schedule II opioid drug., 1... Start Date: 09/03/23 Stop Date: 03/31/24 Status: Ordered Eliquis 5 mg oral tablet See Instructions, TAKE 1 TABLET BY MOUTH TWICE A DAY, # 60 tablet, 11 Refills, Maintenance, 06/12/23 6:31:00 EST, [id number], 193, cm, 06/01/23 9:54:00 EST, Height, 90.9, kg, 06/01/23 9:54:00 EST, Dry Weight Start Date: 06/12/23 Status: Ordered ferrous sulfate 325 mg oral tablet 1 tablet = 325 mg, By Mouth, 2 times a day, TAKE 1 TABLET BY MOUTH EVERY DAY, # 180 tablet, 0 Refills, Maintenance, 08/14/23 12:47:00 EDT, Tablet, [facility]/pharmacy #[id number], Partial fill upon patient request [...] 06/12/23 6:46:00 EST, Route to Pharmacy Electronically, [facility]/pharmacy #[id number], Partial fill upon... Start Date: 06/12/23 Status: Ordered gabapentin 600 mg oral tablet 1 tablet = 600 mg, By Mouth, 3 times a day, # 90 tablet, 11 Refills, Maintenance, 08/12/23 13:51:00EDT, Tablet, [facility]/pharmacy #[id number], Partial fill upon patient request if the prescription is for a schedule II opioid drug., frank Mitchell, 07/26/23 9:16:00 EDT... Start Date: 08/12/23 Status: Ordered hydroxyurea 500 mg oral capsule = 500 mg, By Mouth, Daily, for 30 days, # 30 capsule, 2 Refills, Acute 10/18/23 14:36:00 EDT, 07/20/23 14:36:00 EST, Capsule, [facility]/pharmacy #[id number], Partial fill upon patient request if the prescriptionis for a schedule II opioid drug., 182frank, ... Start Date: 07/20/23 Stop Date: 10/18/23 [...] Maintenance, 08/23/23 15:51:00 EDT, [facility] Tablet, 182, frank, 07/26/23 9:16:00 EDT, Height, 89, kg, 08/21/23 7:13:00 EDT, Dry Weight Start Date: 08/23/23 Status: Ordered tiZANidine 2 mg oral tablet 4 mg, 2, tablet, By Mouth, Every 8 hours, PRN, # 180 tablet, Refills 11, Tot. Refills 11, Maintenance, as needed for muscle spasm, 08/12/23 13:51:00 EDT, Route to Pharmacy Electronically, [facility]/pharmacy #[id number], Partial fill upon patient request if the [...] 0 Refills, Maintenance, 07/16/23 10:05:00 EST, Tablet, [facility], Partial fill upon patient [...] apex Confirmed Active N CP Care Management, Punchboard Inserter Carmen Elizabeth [phone] Confirmed Active Therapeutic drug monitoring Confirmed Active [...] Care Nurse Name: Areli Pittman RN Position: [facility] ED RN W/OE and Tasks Member Role: Primary Care Nurse Name: Derek Tomas MD Position: [facility] Resident Member Role: PCP Address: Address: [address] [place] [id number]- Name: Monique Irwin LPN Position: [facility] RN Member Role: Primary Care Nurse Name: Lianna Epstein RN Position: [facility] RN Member Role: Primary Care Nurse Name: Vicenta Barnett RN Position: [facility] RN Member Role: Primary Care Nurse Name: Farhana Garcia RN Position: [facility] RN Member Role: Primary Care Nurse Name: Ricardo Russell RN Position: [facility] RN Member Role: Primary Care Nurse Name: Gissell Jernigan RN Position: [facility] RN Member Role: Primary Care Nurse Name: Farhana Green RN Position: [facility] RN Member Role: Primary Care Nurse Name: Cydney Delgado RN Position: [facility] RN Member Role: Primary Care Nurse Name: Sharon Mendez RN Position: [facility] RN Member Role: Primary Care Nurse Name: Mookie Christianson RN Position: [facility] RN Member Role: Primary Care Nurse Name: Ally Boyd RN Position: [facility] RN Member Role: Primary Care Nurse Name: Javed Oneill RN Position: [facility] RN Member Role: Primary Care Nurse Name: Lynn Stewart RN Position: [facility] RN Member Role: Primary Care Nurse Name: Amanda Johnson RN Position: [facility] RN Member Role: Primary Care Nurse Name: Jolie Villalobos RN Position: [facility] RN Member Role: Primary Care Nurse Name: Axel Savage RN Position: [facility] RN Member Role: Primary Care Nurse Name: Glenys Bee RN Position: [facility] RN Member Role: Primary Care Nurse Name: Praveen Maurer Position: [facility] RN Member Role: Primary Care Nurse Name: Filemon King RN Position: [facility] RN Member Role: Primary Care Nurse Name: Lauren Guevara RN Position: [facility] RN Member Role: Primary Care Nurse Name: Annamaria Quinn RN Position: [facility] RN Member Role: Primary Care Nurse Name: Lashawn Nagy RN Position: [facility] RN Member Role: Primary Care Nurse Name: Glenys Fox RN Position: S RN Member Role: Primary Care Nurse Care Team Related Persons Name: BEVERLY REYNAGA Address: [place] [address] Name: AISLINN DE LA PAZ Address: home [address] [place] [address]
--- OUTSIDE RECORDS SUMMARY | 2024-01-21 19:30 | XMS_ITS | Continuity of Care Document ---
Author Organization [facility] Address [address] [place] [address]- Care Team Providers Care Employment Agency Manager Name Role Phone Derek Tomas MD Primary Care Physician Encounter [facility] Date(s): 06/07/23 - 07/07/[address] [address]- Allergies, Adverse Reactions, Alerts No Known Allergies [...] 06/17/23 8:53:00 EST, Route to Pharmacy Electronically, [facility], Partial fill upon patient request if the prescription is for a schedule II opioid... Start Date: 06/17/23 Status: Ordered baclofen 20 mg oral tablet 20 mg, 1, tablet, By Mouth, 4 times a day, # 120 tablet, Refills 0, Tot. Refills 0, Maintenance, 06/03/23 13:25:00 EST, Route to Pharmacy Electronically, [facility], 193, cm, 06/01/23 9:54:00 EST, Height, 90.9, kg, 06/01/23 9:54:00 EST,... Start Date: 06/03/23 Status: Ordered duloxetine 30 mg oral enteric coated capsule 1 capsule, By Mouth, Daily, # 30 capsule, 5 Refills, Maintenance, 06/12/23 6:45:00 EST, [facility]/pharmacy #[id number], 193, cm, 06/01/23 9:54:00 EST, Height, 90.9, kg, 06/01/23 9:54:00 EST, Dry Weight Start Date: 06/12/23 Status: Ordered Eliquis 5 mg oral tablet See Instructions, TAKE 1 TABLET BY MOUTH TWICE A DAY, # 60 tablet, 11 Refills, Maintenance, 06/12/23 6:31:00 EST, [facility] [id number], 193, cm, 06/01/23 9:54:00 EST, Height, 90.9, kg, 06/01/23 9:54:00 EST, Dry Weight Start Date: 06/12/23 Status: Ordered ferrous sulfate 325 mg oral tablet 1 tablet = 325 mg, By Mouth, Daily, TAKE 1 TABLET BY MOUTH EVERY DAY, # 30 tablet, 0 Refills, Maintenance, 06/12/23 6:46:00 EST, Tablet, [facility]/pharmacy #[id number], Partial fill upon patient [...] 06/12/23 6:46:00 EST, Route to Pharmacy Electronically, [facility]/pharmacy #[id number], Partial fill upon... Start Date: 06/12/23 Status: Ordered gabapentin 600 mg oral tablet 1 tablet = 600 mg, By Mouth, 3 times a day, # 90 tablet, 0 Refills, Maintenance, 06/21/23 12:34:00 EST, Tablet, [facility]/pharmacy #[id number], Partial fill upon patient [...] 06/21/23 12:37:00 EST, Route to Pharmacy Electronically, [facility]/pharmacy #[id number], Partial fill upon patient [...] apex Confirmed Active [facility] CP Care Management, Patient Account Representative Carmen Elizabeth [phone] Confirmed Active Therapeutic drug monitoring Confirmed Active [...] Name: Areli Pittman RN Position: [facility] ED RN W/OE and Tasks Member Role: Primary Care Nurse Name: Derek Tomas MD Position: S Resident Member Role: PCP Address: Address: [address] [place] [address] Name: Farhana Green RN Position: S RN Member Role: Primary Care Nurse Name: Ally Boyd RN Position: S RN Member Role: Primary Care Nurse Name: Lynn Stewart RN Position: [facility] RN Member Role: Primary Care Nurse Name: oJlie Villalobos RN Position: [facility] RN Member Role: Primary Care Nurse Name: Axel Savage RN Position: S RN Member Role: Primary Care Nurse Name: Glenys Bee RN Position: S RN Member Role: Primary Care Nurse Name: Filemon King RN Position: [facility] RN Member Role: Primary Care Nurse Name: Lauren Guevara RN Position: [facility] RN Member Role: Primary Care Nurse Name: Lashawn Nagy RN Position: [facility] RN Member Role: Primary Care Nurse Name: Glenys Fox RN Position: S RN Member Role: Primary Care Nurse Care Team Related Persons Name: BEVERLY REYNAGA Address: [place] [address] Name: AISLINN DE LA PAZ Address: home [address] [place] [address]
--- OUTSIDE RECORDS SUMMARY | 2024-01-21 19:30 | XMS_ITS | Continuity of Care Document ---
Author Organization [facility] Address [address] [place] [address]- Care Team Providers Care High Risk Ob Name Role Phone Derek Tomas MD Primary Care Physician [place] [facility] [place] 09/05/23 - 10/05/[address] [address]- Allergies, Adverse Reactions, Alerts No Known Allergies Immunizations Given and Recorded Vaccine Date Status Refusal Reason influenza virus vaccine, inactivated 05/18/22 Give n tetanus/diphtheria/pertussis, acel(Tdap) 09/13/19 Recorded Medications amLODIPine 5 mg oral tablet 5 mg, 1, tablet, By Mouth, Daily, # 30 tablet, Refills 0, Tot. Refills 0, Maintenance, 06/17/23 8:53:00 EST, Route to Pharmacy Electronically, [facility], Partial fill upon patient request if the prescription is for a schedule II opioid... Start Date: 06/17/23 Status: Ordered ascorbic acid 500 mg oral tablet 1 tablet = 500 mg, By Mouth, Daily, # 30 tablet, 0 Refills, Maintenance, 09/06/23 12:42:00 EDT, Tablet, [facility]/pharmacy #[id number], Partial fill upon patient request if the prescription is for a schedule II opioid drug., 193, cm, 09/05/23 19:48:00 EDT, Height... Start Date: 09/06/23 Status: Ordered baclofen 20 mg oral tablet 20 mg, 1, tablet, By Mouth, 4 times a day, # 120 tablet, Refills 5, Tot. Refills 5, Maintenance, 08/06/23 9:00:00 EDT, Route to Pharmacy Electronically, [facility]/pharmacy #[id number], 182, cm, 07/26/23 9:16:00 EDT, Height, 89, kg, 07/03/23 11:22:00 EST, Dry Weight Start Date: 08/06/23 Status: Ordered docusate sodium 100 mg oral capsule 1 capsule, By Mouth, 2 times a day, # 60 capsule, 11 Refills, Maintenance, 09/03/23 17:44:00 EDT, [id number], 193, cm, 09/03/23 14:09:00 EDT, Height, 91.4, kg, 08/30/23 12:03:00 EDT, Dry Weight Start Date: 09/03/23 Status: Ordered duloxetine 30 mg oral enteric coated capsule 1 capsule = 30 mg, By Mouth, Daily, TAKE 1 CAPSULE BY MOUTH EVERY DAY, # 30 capsule, 6 Refills, Maintenance, 09/03/23 17:47:00 EDT, Capsule, [facility]/pharmacy #[id number], Partial fill upon patient [...] 11 Refills, Maintenance, 08/12/23 13:51:00EDT, Tablet, [facility]/pharmacy #[id number], Partial fill upon patient request if the prescription is for a schedule II opioid drug., 182, cm, 07/26/23 9:16:00 EDT... Start Date: 08/12/23 Status: Ordered hydroxyurea 500 mg oral capsule = 500 mg, By Mouth, Daily, for 30 days, # 30 capsule, 2 Refills, Acute 10/18/23 14:36:00 EDT, 07/20/23 14:36:00 EST, Capsule, [facility]/pharmacy #[id number], Partial fill upon patient request if the prescriptionis for a schedule II opioid drug., 182, cm, ... Start Date: 07/20/23 Stop Date: 10/18/23 Status: Ordered MiraLax oral powder for reconstitution = 17 Gm, By Mouth, Daily, PRN Constipation, for 30 days, # 30 each, 0 Refills, Acute 10/06/23 12:41:00 EDT, 09/06/23 12:41:00 EDT, REC Powder, [facility]/pharmacy #[id number], Partial fill upon patient [...] 0 Refills, Soft Stop, 08/23/23 15:54:00 EDT, [facility]... Start Date: 08/23/23 Status: Ordered oxyCODONE 20 mg oral tablet 1 tablet = 20 mg, By Mouth, Every 8 hours, for 3 days, # 9 tablet, 0 Refills, Acute 10/07/23 16:02:00 EDT, 10/04/23 16:02:00 EDT, Tablet, [facility], Partial fill upon patient request if the prescription is for a schedule II opioid drug.... Start Date: 10/04/23 Stop Date: 10/07/23 Status: Ordered pantoprazole 40 mg oral delayed [...] 13:51:00 EDT, Route to Pharmacy Electronically, [facility]/pharmacy #[id number], Partial fill upon patient request if the [...] 0 Refills, Maintenance, 07/16/23 10:05:00 EST, Tablet, [facility], Partial fill upon patient request if [...] thrombus of cardiac apex Confirmed Active [facility] Care Management, Customer Consulting Manager Carmen Elizabeth [phone] Confirmed Active Therapeutic drug monitoring Confirmed Active [...] Care Nurse Name: Jeanne Bryant RN Position: [facility] RN Member Role: Primary Care Nurse Name: Mitch Guido RN Position: [facility] RN Member Role: Primary Care Nurse Name: Areli Pittman RN Position: [facility] ED RN W/OE and Tasks Member Role: Primary Care Nurse Name: Derek Tomas MD Position: [facility] Resident Member Role: PCP Address: Address: [address] [place] [address] Name: Monique Irwin LPN Position: [facility] RN Member Role: Primary Care Nurse Name: Lianna Epstein RN Position: [facility] RN Member Role: Primary Care Nurse Name: Mk Knutson LPN Position: [facility] RN Member Role: Primary Care Nurse Name: Vicenta Barnett RN Position: [facility] RN Member Role: Primary Care Nurse Name: Farhana Garcia RN Position: [facility] RN Member Role: Primary Care Nurse Name: Albertina Adams RN Position: [facility] RN Member Role: Primary Care Nurse Name: Ricardo Russell RN Position: [facility] RN Member Role: Primary Care Nurse Name: Gissell Jernigan RN Position: [facility] RN Member Role: Primary Care Nurse Name: Farhana Green RN Position: [facility] RN Member Role: Primary Care Nurse Name: Cydney Delgado RN Position: [facility] RN Member Role: Primary Care Nurse Name: Sharon Mendez RN Position: [facility] RN Member Role: Primary Care Nurse Name: Mookie Christianson RN Position: [facility] RN Member Role: Primary Care Nurse Name: Ally Boyd RN Position: [facility] RN Member Role: Primary Care Nurse Name: Javed Oneill RN Position: [facility] RN Member Role: Primary Care Nurse Name: Lynn Stewart RN Position: [facility] RN Member Role: Primary Care Nurse Name: Amanda Johnson RN Position: [facility] RN Member Role: Primary Care Nurse Name: Jolie Villalobos RN Position: [facility] RN Member Role: Primary Care Nurse Name: Axel Savage RN Position: [facility] RN Member Role: Primary Care Nurse Name: Dirk Driver RN Position: [facility] RN Member Role: Primary Care Nurse Name: Glenys Bee RN Position: [facility] RN Member Role: Primary Care Nurse Name: Praveen Maurer Position: [facility] RN Member Role: Primary Care Nurse Name: Filemon King RN Position: [facility] RN Member Role: Primary Care Nurse Name: Lauren Guevara RN Position: [facility] RN Member Role: Primary Care Nurse Name: Annamaria Quinn RN Position: [facility] RN Member Role: Primary Care Nurse Name: Jada Waller RN Position: [facility] RN Member Role: Primary Care Nurse Name: Lashawn Nagy RN Position: [facility] RN Member Role: Primary Care Nurse Name: Jacquelin Naranjo RN Position: [facility] RN Member Role: Primary Care Nurse Name: Glenys Fox RN Position: [facility] RN Member Role: Primary Care Nurse Care Team Related Persons Name: JUHI BEVERLY Address: home [place] [place], [place] Name: HEENA MCQUEEN Address: home [address] [place], [place] Name: AISLINN DE LA PAZ Address: home [address] [place] [address]
--- OUTSIDE RECORDS SUMMARY | 2024-01-21 19:30 | XMS_ITS | Continuity of Care Document ---
Author Organization [facility] ter Address [address] [place] [id number]- Care Team Providers Care Office System Analyst Name Role Phone Derek Tomas MD Primary Care Physician Encounter [facility] Date(s): 10/20/23 - 10/23/[address] [address]- Encounter Diagnosis Intractable pain(Final) - 10/21/23 Hidradenitis suppurativa(Final) - 10/21/23 Bedbound(Final) - 10/21/23 Discharge Disposition: A-D/C Home Attending Physician: Jackie Ribeiro MD Admitting Physician: Lesa PAGAN, Ferdinand Referring Physician: Not on Staff, Referring MD Allergies, Adverse Reactions, Alerts No Known Allergies Immunizations Given and Recorded Vaccine Date Status Refusal Reason influenza virus vaccine, inactivated 05/18/22 Give n tetanus/diphtheria/pertussis, acel(Tdap) 09/13/19 Recorded Medications amLODIPine 5 mg oral tablet 5 mg, Tablet, By Mouth, 10/23/23 9:00:00 EDT Start Date: 10/23/23 Stop Date: 10/23/23 Status: Completed amLODIPine 5 mg oral tablet 5 mg, 1, tablet, By Mouth, Daily, # 30 tablet, Refills 0, Tot. Refills 0, Maintenance, 06/17/23 8:53:00 EST, Route to Pharmacy Electronically, [facility], Partial fill upon patient request if the prescription is for a schedule II opioid... Start Date: 06/17/23 Status: Ordered ascorbic acid 500 mg oral tablet 1 tablet = 500 mg, By Mouth, Daily, # 30 tablet, 0 Refills, Maintenance, 09/06/23 12:42:00 EDT, Tablet, [facility]/pharmacy #[id number], Partial fill upon patient request if the prescription is for a schedule II opioid drug., 193, cm, 09/05/23 19:48:00 EDT, Height... Start Date: 09/06/23 Status: Ordered baclofen 10 mg oral tablet 20 mg, Tablet, By Mouth, 10/23/23 13:00:00 EDT Start Date: 10/23/23 Stop Date: 10/23/23 Status: Completed baclofen 20 mg oral tablet 20 mg, 1, tablet, By Mouth, 4 times a day, # 120 tablet, Refills 5, Tot. Refills 5, Maintenance, 08/06/23 9:00:00 EDT, Route to Pharmacy Electronically, [facility]/pharmacy #[id number], 182, cm, 07/26/23 9:16:00 EDT, Height, 89, kg, 07/03/23 11:22:00 EST, Dry Weight Start Date: 08/06/23 Status: Ordered docusate sodium 100 mg oral capsule 1 capsule, By Mouth, 2 times a day, # 60 capsule, 11 Refills, Maintenance, 09/03/23 17:44:00 EDT, [id number], 193, cm, 09/03/23 14:09:00 EDT, Height, 91.4, kg, 08/30/23 12:03:00 EDT, Dry Weight Start Date: 09/03/23 Status: Ordered duloxetine 30 mg oral enteric coated capsule 1 capsule = 30 mg, By Mouth, Daily, TAKE 1 CAPSULE BY MOUTH EVERY DAY, # 30 capsule, 6 Refills, Maintenance, 09/03/23 17:47:00 EDT, Capsule, [facility]/pharmacy #[id number], Partial fill upon patient [...] 0 Refills, Maintenance, 10/16/23 15:51:00 EDT, [id number], 193, cm, 10/04/23 3:49:00 EDT, Height, 90.4, kg, 10/07/23 21:33:00 EDT, Dry Weight Start Date: 10/16/23 Status: Ordered folic acid 1 mg oral tablet 1 mg, 1, tablet, By Mouth, Daily, Maintenance, 09/21/23 10:41:00 EDT, Partial fill upon patient request if the prescription is for a schedule II opioid drug. Start Date: 09/21/23 Status: Ordered gabapentin 300 mg oral capsule 600 mg, Capsule, By Mouth, 10/23/23 15:00:00 EDT Start Date: 10/23/23 Stop Date: 10/23/23 Status: Completed gabapentin 600 mg oral tablet 1 tablet = 600 mg, By Mouth, 3 times a day, # 90 tablet, 11 Refills, Maintenance, 08/12/23 13:51:00EDT, Tablet, [facility]/pharmacy #[id number], Partial fill upon patient request if the prescription is for a schedule II opioid drug., 182, cm, 07/26/23 9:16:00 EDT... Start Date: 08/12/23 Status: Ordered hydroxyurea 500 mg oral capsule = 500 mg, By Mouth, Daily, for 30 days, # 30 capsule, 0 Refills, Acute 11/15/23 15:53:00 EDT, 10/16/23 15:53:00 EDT, Capsule, [facility]/pharmacy #[id number], Partial fill upon patient request if the prescriptionis for a schedule II opioid drug., 193, cm, 2... Start Date: 10/16/23 Stop Date: 11/15/23 Status: Ordered Narcan 4 mg/0.1 mL nasal [...] mg, By Mouth, Every 12 hours, PRN Pain , Severe, for 7 days, # 14 tablet, 0 Refills, Acute 10/30/23 12:48:00 EDT, 10/23/23 12:48:00 EDT, Tablet, [facility], Partial fill upon patient request if the prescription is for a nena... Start Date: 10/23/23 Stop Date: 10/30/23 Status: Ordered pantoprazole 40 mg oral delayed [...] 08/12/23 13:51:00 EDT, Route to Pharmacy Electronically, [facility]/pharmacy #[id number], Partial fill upon patient request if the pr... Start Date: 08/12/23 Status: Ordered triamcinolone 0.1% topical cream 1 application, Topically, 2 times a day, *DO NOT APPLY TO OPEN WOUND(S)*, Maintenance, 09/21/23 10:42:00 EDT, Partial fill upon patient request if the prescription is for a schedule II opioid drug. Start Date: 09/21/23 Status: Ordered Tylenol 325 mg oral tablet 975 mg, By Mouth, Every 8 hours, Refills 0, Maintenance, 10/23/23 10:16:00 EDT, Partial fill upon patient request if the prescription is for a schedule II opioid drug. Start Date: 10/23/23 Status: Ordered Vashe wound solution Vashe wound [...] 0 Refills, Maintenance, 07/16/23 10:05:00 EST, Tablet, [facility], Partial fill upon patient [...] apex Confirmed Active [facility] Care Management, Product Delivery Specialist Carmen Elizabeth [phone] Confirmed Active Therapeutic drug monitoring Confirmed Active Peripheral neuropathy Confirmed Active Right spastic hemiparesis Confirmed Active Spasticity Confirmed Active Thrombocytosis Confirmed Active Tobacco dependence Confirmed Active Results Radiology Reports * Exam Date Time Procedure Performing Provider Status 10/20/23 10:[address] Pelvis W/ Contrast Joseph Reyes (Verified) Notes: (CT Pelvis W/ Contrast) Reason For Exam: Draining Sinus Tract RESULT: CT Pelvis W/ Contrast CT Pelvis W/ Contrast Hx of Present Illness: Right buttock pressure wound x2 wks. Pt called EMS due to worsening pain andhome CLINICAL CYTOGENETICIST does not reposition pt and increased bleeding from site. Denies fever, chills, n v d; Reason: Draining Sinus Tract; Clinical Question(s): Abscess; ?abscess r glute TECHNIQUE: Helical CT with IV contrast formatted in 3 planes. 100 cc of Omnipaque 300 was administered intravenously. Enteric contrast was not administered. Automatic tube modulation and/or iterativedose reconstruction were used to optimize exposure parameters. CTDIvol Body: 8.40 mGy, DLP Body: 362 mGy*cm. COMPARISON: 10/07/2023 FINDINGS: Vacuum Metalizing Supervisor View Findings, Lines and Tubes: None. Visualized bowel: Normal caliber bowel loops without acute surrounding inflammatory changes. Appendix: No evidence of acute appendicitis. Bladder: Unremarkable. Reproductive organs: Unremarkable. Peritoneum and retroperitoneum: No ascites or pneumoperitoneum. No omental or mesenteric lesions. Lymph nodes: Redemonstration of chronically enlarged inguinal lymph nodes, largest is a right lymphnode measuring 1.9 cm in short axis. These are unchanged from prior. Blood vessels: Normal. No evidence of venous thrombosis. Pelvic soft tissues: Persistent skin/subcutaneous soft tissue thickening within the right gluteal region and right posterior proximal thigh. The length of this thickening extends approximately 2.2, similar to the prior study. There is a small superficial ulceration noted in the right gluteal regionmeasuring 1.2 cm (202:81 and sagittal image 44), previously measuring 0.4 cm. No peripherally enhancing fluid collection seen to suspect an abscess. Bones: No acute abnormality. Severe degenerative changes of the left hip. IMPRESSION: 1. Redemonstration of extensive presumed hydradenitis suppurativa in the right posterior gluteal/posterior upper thigh skin/subcutaneous soft tissues.. 2. Small focus of superficial skin ulceration in the right gluteal region now measuring up to 1.2 cm, slightly more pronounced than the prior study. 3. No identifiable abscess. I have personally reviewed the images and I agree with this report. WSN: [id number] Ordering Physician: Rosa Vaughn Dictated By: Coco Gong DO Dictated Date/Time: 10/20/23 10:57 p Reviewed By: Sydney Mendoza MD Signed By: Sydney Mendoza MD Signed Date/Time: 10/20/23 11:02 pm Transcribed By: ZEHRA Transcribed Date/Time: 10/20/23 10:51 pm Vital Signs Most recent to oldest [Reference Range]: 1 2 3 Height 193 cm (10/23/23 2:48 PM) 193 cm (10/23/23 7:16 AM) 193 cm (10/22/23 11:16 PM) Weight 86.3 kg (10/21/23 2:05 AM) Oxygen Saturation [94-100 %] 98 % (10/23/23 2:48 PM) 98 % (10/23/23 7:16 AM) 97 % (10/22/23 11:16 PM) Pulse Rate [55-90 bpm] 58 bpm (10/23/23 2:48 PM) 50 bpm *L* (10/23/23 7:16 AM) 63 bpm (10/22/23 11:16 PM) Body Mass Index [18.5-24.99 kg/m2] 23.17 kg/m2 (10/21/23 2:05 AM) Blood Pressure [90-138/55-84 mm Hg] 105/66mm Hg (10/23/23 2:48 PM) 121/63mm Hg (10/23/23 8:23 AM) 121/63mm Hg (10/23/23 7:16 AM) Respiratory Rate [16-30 br/min] 16 br/min (10/23/23 3:18 PM) 16 br/min (10/23/23 2:48 PM) 16 br/min (10/23/23 12:35 PM) Temperature [96.8-100.4 DegF] 98.1 DegF (10/23/23 2:48 PM) 98.2 DegF (10/23/23 7:16 AM) 98.8 DegF (10/22/23 11:16 PM) Mode of Delivery (Oxygen) Room air (10/23/23 2:48 PM) Room air (10/23/23 7:16 AM) Room air (10/22/23 11:16 PM) Blood pressure sites Arm, left (10/23/23 2:48 PM) Arm, left (10/23/23 7:16 AM) Arm, left (10/22/23 11:16 PM) Temperature Route Oral (10/23/23 2:48 PM) Oral (10/23/23 7:16 AM) Oral (10/22/23 11:16 PM) Dry Weight 86.3 kg (10/21/23 2:05 AM) Weight Obtained Via 86.3 (10/21/23 2:05 AM) Social History Social History Type Response Smoking Status 5-9 cigarettes (betw een 1/4 to 1/2 pack)/day in last 30 days entered on: 05/16/22 Sex History and physical note * Mauricio Manning MD: PERFORM Event Display: History and Physical Hospital Authored Date: [id number] Patient: ??DAVID MCQUEEN ? Age:??38 Years?Sex:??Male?:??1985?? Chief Complaint Hydradenitits History of Present Illness David Mcqueen is a 38M??with history of left ICA stroke??(right-sided hemiparesis), mural thrombuson Eliquis, anemia, GERD and??hidradenitis of the bilateral gluteus s/p recent R gluteus debridement (08/20 [facility]) who is currently admitted??to the medical service with right gluteal pain??for whom surgery is being consulted for evaluation??of progressive hydradenitis. ??Since last discharge??in August,??patient has represented 3 times now with??acute on chronic pain.?? His most??recent??episode of pain??started??approximately??2 days prior to presentation and was??characterized by throbbing pain. He denied any fever chills. ?? On exam??there are several??open sites with active drainage of serous fibrinous fluid. ??There is no definitive area of fluctuance.?? CT scan??reveals??similar image to previous scans done over the last month. ??There is chronic??inflammation but no discrete abscess that is drainable. ??ID has seen the patient as well as the addiction medicine service??and given recommendations.?? Patient is on home opioids??and??was most recently seen by infectious disease on??5???23 and they recommended not treating with further antibiotics as there is no evidence of cellulitis. ??That remains the case today . ??Biochemical workup showed no evidence of leukocytosis normal electrolytes BUN/creatinine ? Diagnosis 1. ??Hidradenitis suppurativa ?? Recommendations ?No indication for acute surgical intervention - Ok to resume regular diet - Continue with local wound care & BID dressing changes ??? No evidence of cellulitis??that merits antibiotics ?Pain control per primary - Cleared for discharge from a surgical perspective ?? Surgery will be signing off. ?? Case discussed with Dr. Cuevas Please page Emergency General Surgery with any questions or concerns [id number].?? Physical Exam Vitals & Measurements T:??98.4?F?? HR:??74??(Peripheral)?? RR:??18?? BP:??122/74?? SpO2:??100%?? Constitutional: Well appearing, no acute distress. Respiratory: Non-labored breating on room air Cardiovascular: Warm, well-perfused Abdominal: Soft, non-tender, non-distended Neurologic: Patient has??difficulty with speech and word formation. Extremities: Right upper and lower extremity hemiparesis. Skin: Right gluteus??with??chronic soft tissue induration,??4 areas of??serial fibrinous drainage but without any??associated fluctuance or erythema. Assessment/Plan David Mcqueen is a 38M??with history of left ICA stroke??(right-sided hemiparesis), mural thrombuson Eliquis, anemia, GERD and??hidradenitis of the bilateral gluteus s/p recent R gluteus debridement (08/20 [facility]) who has been admitted??4+ times over the last 2 months??with pain related to hidradenitis suppurativa. ?? According to the patient he did??meet with a child development specialist outpatient and was started on canikinumab. ??Patient was recently seen by infectious disease??on??5???23 who recommended no further antibiotics for his chronic inflammatory condition??and less clear signs of infection. ??Today on my evalu ation??the patient has??chronic inflammation??but without cellulitis??and drainage is serial fibrinous. ??Patient has no??biochemical evidence of systemic infection. ??Therefore I would continue local wound care, continue??anti- inflammatory medications??and not recommend any antibiotics at this time. ??Patient has??requested admission to medical service for pain control. ??No surgical interventions??to be offered at this time patient does not have any??defined abscess on CT scan. ?? Diagnosis 1. ??Hidradenitis suppurativa ?? Recommendations ?No indication for acute surgical intervention - Ok to resume regular diet - Continue with local wound care & BID dry sterile dressing changes ??? No evidence of cellulitis??that merits antibiotics ?Pain control per primary - Cleared for discharge from a surgical perspective ?? Surgery will be signing off. ?? Case discussed with Dr. Carmen Please page Emergency General Surgery with any questions or concerns [phone].? Problem List/Past Medical History Ongoing [facility] Care Management, Product Delivery Specialist Carmen Elizabeth [phone] Chronic ischemic left ICA stroke Chronic pain Controlled substance agreement signed 10/16/22 Depression GERD (gastroesophageal reflux disease) Hidradenitis suppurativa History of ischemic stroke Hypertension PATY (iron deficiency anemia) Insomnia Iron deficiency anemia Mural thrombus of cardiac apex Peripheral neuropathy Right spastic hemiparesis Spasticity Therapeutic drug monitoring Tobacco dependence Wound of buttock Procedure/Surgical History Operative procedure on hip: 2000 Home Medications Amlodipine: 5 mg = 1 tablet, By Mouth, Daily apixaban: 5 mg = 1 tablet, By Mouth, 2 times a day Ascorbic Acid: 500 mg = 1 tablet, By Mouth, Daily Baclofen: 20 mg = 1 tablet, By Mouth, 4 times a day Cholecalciferol: 25 mcg = 1 tablet, By Mouth, Daily Docusate: 1 capsule, By Mouth, 2 times a day Duloxetine: 30 mg = 1 capsule, By Mouth, Daily, TAKE 1 CAPSULE BY MOUTH EVERY DAY Durable Medical Equipment (Vashe wound solution): See Instructions, Use 45mL daily Ferrous Sulfate: 1 tablet, By Mouth, 2 times a day Folic Acid: 1 mg = 1 tablet, By Mouth, Daily Gabapentin: 600 mg = 1 tablet, By Mouth, 3 times a day Hydroxyurea: 500 mg, By Mouth, Daily nalOXONE: 4 mg = 1 sprays, Nares, Both, Once, To be used use one spray in one nostril. if an additional dose is needed, alternate nostril. may repeat every 2 to 3 minutes until patient responds Oxycodone: 30 mg = 1 tablet, By Mouth, Every 12 hours, PRN (as needed for pain), has [facility]ed [facility] Pantoprazole: 1 tablet, By Mouth, Daily Tizanidine: 4 mg = 2 tablet, By Mouth, Every 8 hours, PRN (as needed for muscle spasm) Triamcinolone Topical: 1 application, Topically, 2 times a day, *DO NOT APPLY TO OPEN WOUND(S)* Allergies NKA Social History Alcohol Use: Current. Other: 10 drinks per week. Electronic Cigarette/Vaping Electronic Cigarette Use: Never. Substance Abuse Use: Current. Type: Marijuana. Tobacco Use: 5-9 cigarettes (between 1/4 to 1/2 pack)/day in last 30 days. Family History Mother: Asthma Brother: Asthma Lab Results Labs Last 24 Hours BLOOD COUNT & DIFF ? Event Name?? Event Result?? Date/Time?? WBC 7 k/mm3 10/20/23 22:13:00 RBC 3.35 m/mm3??Low 10/20/23 22:13:00 Hgb 8.1 Gm/dL??Low 10/20/23 22:13:00 Hct 27.9 %??Low 10/20/23 22:13:00 MCV 83.3 femtoliters 10/20/23 22:13:00 MCH 24.2 pg??Low 10/20/23 22:13:00 MCHC 29 g/dL??Low 10/20/23 22:13:00 Platelet Count 743 k/mm3??High 10/20/23 22:13:00 MPV 8.4 femtoliters??Low 10/20/23 22:13:00 Nucleated RBC (Automated) 0 #/100 WBC'S 10/20/23 22:13:00 ? CHEM GENERAL ? Event Name?? Event Result?? Date/Time?? Sodium 139 mmol/L 10/20/23 22:13:00 Chloride 102 mmol/L 10/20/23 22:13:00 Bicarbonate Level 26 mmol/L 10/20/23 22:13:00 Anion Gap 11 10/20/23 22:13:00 Glucose Level 87 mg/dL 10/20/23 22:13:00 BUN 12 mg/dL 10/20/23 22:13:00 Creatinine-Blood 0.75 mg/dL 10/20/23 22:13:00 ? Admission evaluation note * Hai Doan MD: PERFORM Event Display: Admission Note Authored Date: [id number] Patient: ??DAVID MCQUEEN ? Age:??38 Years?Sex:??Male?:??1985?? Chief Complaint/Reason for Consultation Right sided paralysis from prior stroke, c/o right buttock pressure sore x2 wks. Called EMS becausehome CLINICAL CYTOGENETICIST does not reposition him and pt wants ti checked outr History of Present Illness 38-year-old male with PMH of history of ischemic stroke with residual right- sided residual hemiparesis, aphasia; history of cardiac thrombus on Eliquis; severe retinitis with history of local excision and I&D, chronic pain on opiates; recurrent multiple admissions for management of peritonitis wounds and pain; PATY; HTN; -Presented with with concern of worsening purulent drainage from ongoing hidradenitis suppurativa buttock lesions, and worsening pain; similar recurrent presentations and admissions in the last few months. -He denied any fevers, chills, chest pain, SOB, headache, abdominal pain, nausea, vomiting or diarrhea. -On my evaluation, patient was in moderate distress because of pain, denied letting me examine the wounds again, mentioned multiple people already examined, and pain gets worse. -As per general surgery note, patient has several open sites with active drainage of serous fibrinous fluid.?? No definite area of fluctuance. -CT pelvis with IV contrast showed redemonstration of extensive presumed peritonitis suppurativa inright posterior gluteal/posterior upper thigh skin/subcutaneous soft tissues; small focus of superficial skin ulceration in the right gluteal region now measuring up to 1.2 cm, slightly more pronounced than prior study; no identifiable abscess. -Patient was recently seen by infectious disease on 10/03/2023; as per their evaluation, no clear evidence of infection, recommended to monitor off antibiotic therapy; and with aggressive wound care and pain management; also recommended for dermatology evaluation for potential immunological therapy. -Surgery also evaluated the patient, recommended no acute surgical intervention, recommended wound care, and since no evidence of cellulitis, no antibiotics. ?? Vitals: Afebrile, HR 70s-80s, RR 18, BP 120s/70s, saturating well on room air. ?? Labs: -WBC normal; H/H 8.1/28 (borderline low MCV), history of iron deficiency anemia; thrombocytosis platelet 743 -BMP WNL, calcium 8.4 -Creatinine clearance 164. Review of Systems -Pertinent positives and negative history mentioned in HPI. Objective Vital Signs?? Temperature: 98.2 DegF (10/21/23 02:05:00) Temperature Route: Oral (10/21/23 02:05:00) Pulse Rate: 87 bpm (10/21/23 02:05:00) Respiratory Rate: 18 br/min (10/21/23 02:20:00) Systolic Blood Pressure: 105 mm Hg (10/21/23 02:05:00) Diastolic Blood Pressure: 68 mm Hg (10/21/23 02:05:00) Blood pressure sites: Arm, left (10/21/23 02:05:00) Mean Arterial Pressure: 80 mm Hg (10/21/23 02:05:00) Pulse Pressure: 37 mm Hg (10/21/23 02:05:00) Oxygen Saturation: 98 % (10/21/23 02:05:00) Mode of Delivery (Oxygen): Room air (10/21/23 02:05:00) Early Warning Score: 0 (10/21/23 02:24:18) ? Physical Exam General: Awake, alert, oriented x3. ??In moderate to severe distress because of pain. Following commands appropriately. HEENT: NC/AT, PERRLA, no pallor, no icterus, moist mucous membranes. Neck: Supple, no JVD Respiratory: Clear to auscultation bilaterally. ??No wheezes, rhonchi or crackles appreciated. CVS: Regular rhythm. ??Normal S1-S2 heard. ??No murmurs appreciated. Abdomen: Soft, nondistended, nontender, Normoactive bowel sounds. Neurological: ??Speech slow with expressive aphasia.?? Residual spastic??right hemiparesis. Extremities: Warm; b/l DP 2+, PT 2+ ;??no b/l pedal edema. Skin:??Patient did not let me examine??the wounds.?? Please reexamine once better pain control,??recent pictures of wounds from 10/07/2023??in [facility].?? Please refer to surgical note??for examination findings from this evaluation.?? MD to RN instruction placed??to update??pictures in [facility]. Assessment/Plan Diagnoses Bedbound ??(Z74.01) Hidradenitis suppurativa ??(L73.2) Intractable pain ??(R52) 1. ??History of ischemic stroke ??(Z86.73) 2. ??Chronic pain ??(G89.29) 3. ??GERD (gastroesophageal reflux disease) ??(K21.9) 4. ??Hypertension ??(I10) 5. ??PATY (iron deficiency anemia) ??(D50.9) 6. ??Mural thrombus of cardiac apex ??(I51.3) 7. ??Right spastic hemiparesis ??(G81.11) 8. ??Wound of buttock ??(S31.708V) 9. ??Thrombocytosis ??(D78.263) ?? Assessment:??38-year-old male with PMH of history of ischemic stroke with residual right-sided residual hemiparesis, aphasia; history of cardiac thrombus on Eliquis; severe retinitis with history of local excision and I&D, chronic pain on opiates; recurrent multiple admissions for management ofperitonitis wounds and pain; PATY; HTN;??presented with??acute on chronic??pain, concern for??worsening wounds;??being admitted under medicine service. ?? Chronic pain (G89.29):??- ?? Intractable pain (R52):??-Pain management with??scheduled p.o. Tylenol 975 mg??3 times daily;??p.o.oxycodone 2.5-5 mg??every 6 hours as needed??for moderate- severe pain;??IV morphine??1 mg??every 3 hours as needed??for breakthrough pain. -Continue home duloxetine, gabapentin. ?? Hidradenitis suppurativa (L73.2):??- Wound of buttock (S31.900B):??- -Wound care consult placed -CT pelvis with IV contrast showed redemonstration of extensive presumed peritonitis suppurativa inright posterior gluteal/posterior upper thigh skin/subcutaneous soft tissues; small focus of superficial skin ulceration in the right gluteal region now measuring up to 1.2 cm, slightly more pronounced than prior study; no identifiable abscess. -Patient was recently seen by infectious disease on 10/03/2023; as per their evaluation, no clear evidence of infection, recommended to monitor off antibiotic therapy; and with aggressive wound care and pain management; also recommended for dermatology evaluation for potential immunological therapy. -Surgery also evaluated the patient, recommended no acute surgical intervention, recommended wound care, and since no evidence of cellulitis, no antibiotics. ?? Mural thrombus of cardiac apex (I51.3):??-Continue home Eliquis ?? History of ischemic stroke (Z86.73):??- Right spastic hemiparesis (G81.11):??-Continue home tizanidine as needed, and scheduled baclofen ?? Thrombocytosis (D75.839):??-Continue home hydroxyurea ?? Hypertension (I10):??-Continue home amlodipine 5 mg once daily ?? PATY (iron deficiency anemia) (D50.9):??-Continue home iron, vitamin C ?? GERD (gastroesophageal reflux disease) (K21.9):??-Continue home PPI ?? VTE Prophylaxis:??-On Eliquis ?VTE Prophylaxis Assessment:??VTE Prophylaxis Ordered ?? Code Status:??-Full code ?Order Code Status:??Code Status Ordered Date of Service: 10/21/2023 I spent a total of??45 minutes, including both [id number] and myd-ubyk-tn-face time on the date of the encounter, addressing the above diagnoses. Activities performed in this time include chart review, obtaining/reviewing history, performing a medically necessary evaluation, CODE STATUS ??discussion, documentation, charting and counseling, documentation, charting and counseling. ?? Please note: This note has been prepared using voice recognition software ([employer]). As a result errors may occur. When identified these jigger operator errors have been corrected. While every attempt is made to correct errors during dictation, errors may still exist; for any clarifications, pleasereach out to me on [employer] or pager. Histories Allergies Allergies ?(Active and Proposed Allergies Only) NKA? (Severity: Unknown severity, Onset: Unknown) ? 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 Past Surgical History Operative procedure on hip: 2000 ? Social History Alcohol Details:??Use: Current. ??Other: 10 drinks per week. Substance Abuse Details:??Use: Current. ??Type: Marijuana. Tobacco Details:??Use: 5-9 cigarettes (between 1/4 to 1/2 pack)/day in last 30 days. Electronic Cigarette/Vaping Details:??Electronic Cigarette Use: Never. ? Family History Mother: Asthma Brother: Asthma ? Medications Home Medications Amlodipine (amLODIPine 5 mg oral tablet)?5?Milligram?1?tablet?By Mouth?Daily apixaban (Eliquis 5 mg oral tablet)?1?tab(s)?5?Milligram?By Mouth?2 times a day Ascorbic Acid (ascorbic acid 500 mg oral [...] Ferrous Sulfate (ferrous sulfate 325 mg oral tablet)?1?tab(s)?By Mouth?2 times a day Folic Acid (folic acid 1 mg oral tablet)?1?Milligram?1?tablet?By Mouth?Daily Gabapentin (gabapentin 600 mg oral tablet)?1?tab(s)?600?Milligram?By Mouth?3 times a day Hydroxyurea (hydroxyurea 500 mg oral capsule)?500?Milligram?By Mouth?Daily?for 30?Days nalOXONE (Narcan 4 mg/0.1 mL nasal spray)?1?spray(s)?4?Milligram?Nares, Both?Once?To be used use one spray in one nostril. if an additional dose is needed, alternate nostril. mayrepeat every 2 to 3 minutes until patient responds Oxycodone (oxyCODONE 30 mg IR tablet)?1?tab(s)?30?Milligram?By Mouth?Every 12 hours?as needed?as needed for pain?for 14?Days?has CSAReviewed MassPAT Pantoprazole (pantoprazole 40 mg oral delayed release tablet)?1?tab(s)?By Mouth?Daily Tizanidine (tiZANidine 2 mg oral tablet)?4?Milligram?2?tablet?By Mouth?Every 8 hours?as needed?as needed for muscle spasm Triamcinolone Topical (triamcinolone 0.1% topical cream)?1?boyd?Topically?2 times a day?*DO NOT APPLY TO OPEN WOUND(S)* ? Results Recent Labs BLOOD COUNT & DIFF WBC 7.0 k/mm3 ()?? 10/20/2023 22:13 RBC 3.35 m/mm3 (Low)?? 10/20/2023 22:13 Hgb 8.1 Gm/dL (Low)?? 10/20/2023 22:13 Hct 27.9 % (Low)?? 10/20/2023 22:13 MCV 83.3 femtoliters ()?? 10/20/2023 22:13 MCH 24.2 pg (Low)?? 10/20/2023 22:13 MCHC 29.0 g/dL (Low)?? 10/20/2023 22:13 Platelet Count 743 k/mm3 (High)?? 10/20/2023 22:13 RDW-SD 56.0 femtoliters (High)?? 10/20/2023 22:13 MPV 8.4 femtoliters (Low)?? 10/20/2023 22:13 Nucleated RBC (Automated) 0.0 #/100 WBC'S ()?? 10/20/2023 22:13 Abs. NRBC 0.0 k/mm3 ()?? 10/20/2023 22:13 Abs. Neut 4.4 k/mm3 ()?? 10/20/2023 22:13 Abs. Lymph 1.9 k/mm3 ()?? 10/20/2023 22:13 Abs. [place] 0.6 k/mm3 ()?? 10/20/2023 22:13 Abs. Eo 0.1 k/mm3 ()?? 10/20/2023 22:13 Abs. Baso 0.0 k/mm3 ()?? 10/20/2023 22:13 Neut % 63.2 % ()?? 10/20/2023 22:13 Lymph % 26.7 % ()?? 10/20/2023 22:13 [place] % 8.0 % ()?? 10/20/2023 22:13 Eos % 1.4 % ()?? 10/20/2023 22:13 Baso % 0.4 % ()?? 10/20/2023 22:13 Imm Gran 0.3 % ()?? 10/20/2023 22:13 Abs. Imm Gran 0.0 k/mm3 ()?? 10/20/2023 22:13 ?? CHEM GENERAL Sodium 139 mmol/L ()?? 10/20/2023 22:13 Potassium 4.3 mmol/L ()?? 10/20/2023 22:13 Chloride 102 mmol/L ()?? 10/20/2023 22:13 Bicarbonate Level 26 mmol/L ()?? 10/20/2023 22:13 Anion Gap 11 ()?? 10/20/2023 22:13 Glucose Level 87 mg/dL ()?? 10/20/2023 22:13 BUN 12 mg/dL ()?? 10/20/2023 22:13 Creatinine-Blood 0.75 mg/dL ()?? 10/20/2023 22:13 Estimated GFR Creatinine 119 ML/MIN/1.73 M2 ()?? 10/20/2023 22:13 Calcium 8.4 mg/dL (Low)?? 10/20/2023 22:13 ?? URINE OTHER Est Creatinine Clearance 164.61 mL/min ()?? 10/21/2023 02:11 ? Hospital Progress note * Daja Maradiaga RN: PERFORM, SIGN, VERIFY Event Display: Progress Note Hospital Authored Date: Patient: DAVID MCQUEEN Age: 38 years Sex: Male : 1985 Associated Diagnoses: None Author: Daja Maradiaga RN Findings Evaluation Patient being discharged home today. Discharge instructions printed and reviewed with patient. Peripheral IV removed with catheter intact and pressure dressing applied. Picked up by [facility], hand off report given. . * Lorena BUSTAMANTE, Greg: PERFORM, MODIFY, SIGN, VERIFY Event Display: Progress Note Hospital Authored Date: Patient: DAVID MCQUEEN Age: 38 years Sex: Male : 1985 Associated Diagnoses: None Author: Lorena BUSTAMANTE, Greg Findings Nursing Data Vital Signs : VITAL SIGNS SECTION 10/22/2023 23:16 EDT Temperature 98.8 DegF Temperature Route Oral Pulse Rate 63 bpm Respiratory Rate 20 br/min Systolic Blood Pressure 111 mm Hg Diastolic Blood Pressure 49 mm Hg L Blood pressure sites Arm, left Mean Arterial Pressure 70 mm Hg Pulse Pressure 62 mm Hg Oxygen Saturation 97 % Mode of Delivery (Oxygen) Room air 10/22/2023 21:29 EDT Respiratory Rate 18 br/min 10/22/2023 20:39 EDT Early Warning Score 0.00 10/22/2023 20:39 EDT Early Warning Score 0.00 10/22/2023 20:38 EDT Early Warning Score 0.00 10/22/2023 20:29 EDT Respiratory Rate 18 br/min Respiratory Rate 18 br/min Respiratory Rate 18 br/min 10/22/2023 20:16 EDT Early Warning Score 0.00 10/22/2023 20:16 EDT Temperature 99.1 DegF Temperature Route Oral Pulse Rate 63 bpm Respiratory Rate 20 br/min Systolic Blood Pressure 147 mm Hg H Diastolic Blood Pressure 63 mm Hg Blood pressure sites Arm, left Mean Arterial Pressure 91 mm Hg Pulse Pressure 84 mm Hg Oxygen Saturation 98 % Mode of Delivery (Oxygen) Room air . Evaluation Pt is A/O x3, VSS, afebrile. He c/o pain to his buttock. PRN dilaudid and oxycodone has been administered for pain control. Repositioning has been encouraged. No c/o SOB or n/v/d. Safety/comfort maintained. No new acute concerns. Please see [facility] for further assessments. . * Kaykay PAGAN, Karissa Howard: PERFORM Event Display: Progress Note Hospital Authored Date: [id number] Patient: ??DAVID MCQUEEN ? Age:??38 Years?Sex:??Male?:??1985?? Subjective Patient was seen at the bedside. Patient reported to be quite frustrated, demanding Dilaudid dose increased to 2 mg. Patient stated that his??pain is not controlled by??oral pain medication Upon chart review it was noted that patient has been in the hospital??admitted for similar??episodes??at least 3 times since last month. Patient stated that his pain was initially controlled by oral pain medication when he was discharged although??this stopped working so he??came to the ED. Patient was counseled regarding??IV pain medication??usage??and??necessity to be in the hospital. Patient agreed??to increase??oral pain medication, oxycodone??to 10 mg for now??and patient to be reassessed tomorrow with possible discharge home??on oral pain medication. Patient in agreement with the plan Patient denies??chest pain,??shortness of breath, dizziness, nausea vomiting Review of Systems Negative except above Allergies Allergies ?(Active and Proposed Allergies Only) NKA? (Severity: Unknown severity, Onset: Unknown) ? 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 Past Surgical History Operative procedure on hip: 2000 ? Social History Alcohol Details:??Use: Current. ??Other: 10 drinks per week. Substance Abuse Details:??Use: Current. ??Type: Marijuana. Tobacco Details:??Use: 5-9 cigarettes (between 1/4 to 1/2 pack)/day in last 30 days. Electronic Cigarette/Vaping Details:??Electronic Cigarette Use: Never. ? Psychosocial History ? Family History Mother: Asthma Brother: Asthma ? Objective Vital Signs?? Temperature: 99.4 DegF (10/22/23 17:09:00) Temperature Route: Oral (10/22/23 17:09:00) Pulse Rate: 76 bpm (10/22/23 17:09:00) Respiratory Rate: 20 br/min (10/22/23 17:09:00) Systolic Blood Pressure: 119 mm Hg (10/22/23 17:09:00) Diastolic Blood Pressure: 68 mm Hg (10/22/23 17:09:00) Blood pressure sites: Arm, left (10/22/23 17:09:00) Mean Arterial Pressure: 85 mm Hg (10/22/23 17:09:00) Pulse Pressure: 51 mm Hg (10/22/23 17:09:00) Oxygen Saturation: 98 % (10/22/23 17:09:00) Mode of Delivery (Oxygen): Room air (10/22/23 17:09:00) Early Warning Score: 0 (10/22/23 17:09:44) ? Intake/Output? 10/19 20:52 10/21 07:00 10/20 07:00 10/19 07:00 10/18 07:00 ?? 10/21 17:10 10/21 17:10 10/21 06:59 10/20 06:59 10/19 06:59 Intake ? 1040 ?0 ?840 ?200 ?0 Output ? 1895 ?600 ? 1295 ?0 ?0 Net Total ? -855 ? -600 ? -455 ?200 ?0 ? Precautions No Precautions documented.? Basic ADLs Activity Assistance: One person assistance (10/21/23) ? Mobility & Ambulation Level Mobility & Ambulation Level Activity Assistance: One person assistance (10/21/23) Activity Status ADL: Complete bedrest, Repositioned in bed every two hours (10/21/23) ? Physical Exam General: Awake, alert, oriented x3.? Respiratory: Clear to auscultation bilaterally. ??No wheezes, rhonchi or crackles appreciated. CVS: Regular rhythm. ??Normal S1-S2 heard. ??No murmurs appreciated. Abdomen: Soft, nondistended, nontender, Normoactive bowel sounds. Neurological: ??Speech slow with expressive aphasia.?? Residual spastic??right hemiparesis.No new focal neurological changes _ Home Medications Amlodipine (amLODIPine 5 mg oral tablet)?5?Milligram?1?tablet?By Mouth?Daily apixaban (Eliquis 5 mg oral tablet)?1?tab(s)?5?Milligram?By Mouth?2 times a day Ascorbic Acid (ascorbic acid 500 mg oral [...] Ferrous Sulfate (ferrous sulfate 325 mg oral tablet)?1?tab(s)?By Mouth?2 times a day Folic Acid (folic acid 1 mg oral tablet)?1?Milligram?1?tablet?By Mouth?Daily Gabapentin (gabapentin 600 mg oral tablet)?1?tab(s)?600?Milligram?By Mouth?3 times a day Hydroxyurea (hydroxyurea 500 mg oral capsule)?500?Milligram?By Mouth?Daily?for 30?Days nalOXONE (Narcan 4 mg/0.1 mL nasal spray)?1?spray(s)?4?Milligram?Nares, Both?Once?To be used use one spray in one nostril. if an additional dose is needed, alternate nostril. mayrepeat every 2 to 3 minutes until patient responds Oxycodone (oxyCODONE 30 mg IR tablet)?1?tab(s)?30?Milligram?By Mouth?Every 12 hours?as needed?as needed for pain?for 14?Days?has CSAReviewed [facility]PAT Pantoprazole (pantoprazole 40 mg oral delayed release tablet)?1?tab(s)?By Mouth?Daily Tizanidine (tiZANidine 2 mg oral tablet)?4?Milligram?2?tablet?By Mouth?Every 8 hours?as needed?as needed for muscle spasm Triamcinolone Topical (triamcinolone 0.1% topical cream)?1?boyd?Topically?2 times a day?*DO NOT APPLY TO OPEN WOUND(S)* ? Inpatient Medications Medications (18) Active SCHEDULED: (14) Acetaminophen 325 mg Tablet (Tylenol 325 mg oral tablet) ??975 mg, By Mouth, Every 8 hours Amlodipine 5 mg Tablet (amLODIPine 5 mg oral tablet) ??5 mg, By Mouth, Daily Apixaban 5 mg Tablet (Eliquis) ??5 mg, By Mouth, 2 times a day Baclofen 10 mg Tablet (baclofen 10 mg oral tablet) ??20 mg, By Mouth, 4 times a day Docusate Sodium 100 mg Capsule (docusate sodium 100 mg oral capsule) ??100 mg 1 capsule, By Mouth, 2 times a day Duloxetine 30 mg Capsule (Duloxetine) ??30 mg, By Mouth, Daily Ferrous Sulfate 325 mg EC Tablet (ferrous sulfate 325 mg oral tablet) ??325 mg, By Mouth, 2 times aday Folic Acid 1 mg Tablet (folic acid 1 mg oral tablet) ??1 mg, By Mouth, Daily Gabapentin 300 mg Capsule (gabapentin 300 mg oral capsule) ??600 mg, By Mouth, 3 times a day Hydroxyurea 500 mg Capsule (hydroxyurea 500 mg oral capsule) ??500 mg, By Mouth, Daily NaCl 0.9% Flush 3ml (NaCL 0.9% Flush) ??3 mL, IV Push, Every 8 hours Pantoprazole 40 mg EC Tablet (pantoprazole 40 mg oral delayed release tablet) ??40 mg, By Mouth, Daily Vashe Wound Care Emollient/Cleanser (Vashe Topical Solution) ??475 mL, Topically, Every other day Vitamin D 1000 IU Tablet (Vitamin D3 1000 intl units oral tablet) ??, By Mouth, Daily CONTINUOUS: (0) PRN: (4) HYDROmorphone 1 mg/mL Inj Syringe (Dilaudid Inj) ??1 mg 1 mL, IV Push Slowly, Every 4 hours NaCl 0.9% Flush 3ml (NaCL 0.9% Flush) ??3 mL, IV Push, Every 8 hours OxyCODONE 5 mg IR Tablet (oxyCODONE 5 mg oral tablet) ??10 mg, By Mouth, Every 6 hours Tizanidine 4 mg Tablet (tiZANidine 4 mg oral tablet) ??4 mg, By Mouth, Every 8 hours ? 72 Hour Antibiotic History Stopped Antibiotics Stop Date/Time Last Administered First Administered Vancomycin??1 Gm, 200 mL, 200 mL/hr, IVPB, Once 10/21/2023 00:35 10/21/2023 00:32 10/21/2023 00:32 ? Results Recent Labs URINE OTHER Est Creatinine Clearance 164.61 mL/min ()?? 10/21/2023 02:11 ? Abnormal Labs No lab data available. ? Assessment/Plan Assessment:??38-year-old male with PMH of history of ischemic stroke with residual right-sided residual hemiparesis, aphasia; history of cardiac thrombus on Eliquis; severe retinitis with history of local excision and I&D, chronic pain on opiates; recurrent multiple admissions for management ofperitonitis wounds and pain; PATY; HTN;??presented with??acute on chronic??pain, concern for??worsening wounds;??being admitted under medicine service. ?? Chronic pain (G89.29):??- ?? Intractable pain (R52):??-Pain management with??scheduled p.o. Tylenol 975 mg??3 times daily;?? -Continue home duloxetine, gabapentin. Dilaudid 1 mg was started yesterday Oxycodone 5 mg Q 4 hours Patient reported to be quite frustrated, demanding Dilaudid dose increased to 2 mg. Patient agreed??to increase??oral pain medication, oxycodone??to 10 mg for now??and patient to be reassessed tomorrow with possible discharge home??on oral pain medication. Patient in agreement with the plan ?? Hidradenitis suppurativa (L73.2):??- Wound of buttock (S31.067Y):??- -Wound care consult placed -CT pelvis with IV contrast showed remonstration of extensive presumed peritonitis suppurativa in right posterior gluteal/posterior upper thigh skin/subcutaneous soft tissues; small focus of superficial skin ulceration in the right gluteal region now measuring up to 1.2 cm, slightly more pronounced than prior study; no identifiable abscess. -Patient was recently seen by infectious disease on 10/03/2023; as per their evaluation, no clear evidence of infection, recommended to monitor off antibiotic therapy; and with aggressive wound care and pain management; also recommended for dermatology evaluation for potential immunological therapy. -Surgery also evaluated the patient, recommended no acute surgical intervention, recommended wound care, and since no evidence of cellulitis, no antibiotics. Patient was seen by wound care- will follow recommendations ?? Mural thrombus of cardiac apex (I51.3):??-Continue home Eliquis ?? History of ischemic stroke (Z86.73):??- Right spastic hemiparesis (G81.11):??-Continue home tizanidine as needed, and scheduled baclofen ?? Thrombocytosis (D75.839):??-Continue home hydroxyurea ?? Hypertension (I10):??-Continue home amlodipine 5 mg once daily ?? PATY (iron deficiency anemia) (D50.9):??-Continue home iron, vitamin C ?? GERD (gastroesophageal reflux disease) (K21.9):??-Continue home PPI ?? VTE Prophylaxis:??-On Eliquis ?VTE Prophylaxis Assessment:??VTE Prophylaxis Ordered ?? Code Status:??-Full code ?Order Code Status:??Code Status Ordered ?OMN: Pain control Consult note * Rosa Arellano RN: PERFORM, MODIFY, SIGN, VERIFY, MODIFY, SIGN, MODIFY, SIGN, MODIFY, SIGN Event Display: Consultation Note Authored Date: [id number] Patient: DAVID MCQUEEN Age: 38 years Sex: Male : 1985 Associated Diagnoses: None Author: Rosa Arellano RN History of Presenting Problem L buttock R buttock R buttock fleshy aspect Date of Service 10/22/2023 Reason for referral Wound: Description Location: Right buttock Etiology: Hidradenitis suppurativa Wound Bed: Scattered areas of scar tissue depict open sinus tracts 'tunnels', openings of various sizes and depths (~1.5cm and less)- some not able to be probed due to narrow opening Edges: Defined No Fluctuance Jesi Wound: Hyperpigmentation consistent with chronicity, induration vs. scar tissue when palpated Left buttock, surgical wound related to hidradenitis- intact scar tissue- no pain Drainage: Easily expressed with manipulation/pressure to periwound, varies although ~minimal- moderate almonte/opaque with serosanguineous Odor: None 02/19 Pain with palpation & constant pain at rest 11/19 Goals: Vashe to decrease bioburden and assist with 'stalled' properties within wound base; Aquacel ag- exudate management- provide antimicrobial properties . Wound RN consult entered to assess buttocks wound and make topical recommendations. Patient was admitted on 10/20/23 for throbbing pain. Surgery H&P on admission described this is the 4th admission since August for acute on chronic pain, CT depicted chronic inflammation- no discrete abscess thatis drainable- no evidence cellulitis, no surgical intervention recommended, described dermatologiststarted on medication, no evidence of systemic infection. ID did not recommend antibiotics. Significant PMH includes L ICA stroke- R sided hemiparesis, bilateral gluteus hidradenitis- 08/21/23 R gluteal debridement; see H&P for further details. Upon entering the room patient is lying in bed. Wound RN role explained and patient is agreeable to assessment as well as photodocumentation. A&RH2flai expressive aphasia. Patient is kind, discussing concerns for pain management- direct care RN in recent contact with MD. Patient stated his mom changes dressings every day, discussed concern for daily dressing changes. He repositions well independently. I started to re-cap surgery consult, patient with a few discrepancies: not started on new med from Derm, surgery did not find drainage (although note states they did), etc. Patient is continent. Patient updated briefly about plan of care, attime no exact plan until further chart review, he was agreeable and appreciative. Update provided to direct care RN post visit. Recommendations/update sent via [employer] connect to MD Ariana Mccracken, aware R buttock is painful to touch, induration vs. scar tissue although when I pressed the periwound I was able to express almonte/opaque drainage with pink bloody tinge. Although with this info, this is consistent with disease process, I'm not actively concerned for infection. Recommend outpatient follow u p for wounds. Recommendations: 1.) Right buttock: Gently cleanse/irrigate wound beds followed by the periwound with VASHE solutionmoistened gauze. Allow to dry. Cut Aquacel ag in a spiral shape creating one long piece. Pack 'multiple separate tracts/tunnels' loosely with Aquacel ag, leaving a wick to allow for easy removal. Cover other draining 'tracts/tunnels' that can not be packed with Aquacel ag. Secure with large Mepilexfoam dressing or ABD pad/Hypafix. Change every other day and as needed for soiling/saturation. *Do not use multiple pieces of Aquacel ag - concern for leaving pieces inside wound d/t depth and unable to visualize wound bed* *If aquacel ag is difficult to remove with dressing changes , please re-consult Inpatient Wound Care Team. Trauma can occur when removing a dry adhered dressing from a dry wound. 2.) Continue use of specialty bed/low air loss mattress 3.) Turn and reposition every 2 hours and PRN 4.) Continue to offload bony prominences 5.) Continue to provide optimal nutritional support; nutrition consulted Please reconsult wound care RNs for deterioration in wound/skin status Plan Patient Teaching Discussed plan of care with patient Discussed plan of care with RN Time spent 46-60 minutes Note * Daja Maradiaga RN: PERFORM Event Display: Discharge/Transfer Note Hospital Authored Date: Nursing Discharge Note Entered On: 10/23/2023 17:08 EDT Performed On: 10/23/2023 17:08 EDT by Daja Maradiaga RN Nursing Discharge Note 2 Discharge Time : 10/23/2023 17:08 EDT Discharge Level of Care at Discharge : Homehealth/VNA Discharge VNA/Hospice/Home Care(v001) : [facility] [phone] Patient Left Unit Via : Ambulance Patient Accompanied Off Unit with : Ambulance/Chair Van Personnel Handover Given to Transport Personnel : Yes DC Instructions Provided & Signed by Pt : Yes Patient Understands D/C Instructions : Yes Patient Instructions Discharge Signed : Yes Did Pt have Specialty Bed or Wound Vac : Yes Daja Maradiaga RN - 10/23/2023 17:08 EDT * Jackie Ribeiro MD: PERFORM, MODIFY, MODIFY, MODIFY, MODIFY Event Display: Discharge/Transfer Note Hospital Authored Date: Patient: ??DAVID MCQUEEN ? Age:??38 Years?Sex:??Male?:??1985?? Patient Information Discharge Location: W3 Primary Care Physician: Derek Tomas MD Admit Date/Time: 10/20/23 20:52 Discharge Disposition Discharge Disposition: Home with Home Health Discharge Diagnosis ?? History of ischemic stroke (Z86.73) Chronic pain (G89.29) GERD (gastroesophageal reflux disease) (K21.9) Hypertension (I10) PATY (iron deficiency anemia) (D50.9) Mural thrombus of cardiac apex (I51.3) Right spastic hemiparesis (G81.11) Wound of buttock (S31.809A) Thrombocytosis (D75.839) Intractable pain (R52) Hidradenitis suppurativa (L73.2) Bedbound (Z74.01) _ Discharge Medications ?? Acetaminophen (Tylenol 325 mg oral tablet)?975?Milligram?By Mouth?Every 8 hours Amlodipine (amLODIPine 5 mg oral tablet)?5?Milligram?1?tablet?By Mouth?Daily apixaban (Eliquis 5 mg oral tablet)?1?tab(s)?5?Milligram?By Mouth?2 times a day Ascorbic Acid (ascorbic acid 500 mg oral [...] Ferrous Sulfate (ferrous sulfate 325 mg oral tablet)?1?tab(s)?By Mouth?2 times a day Folic Acid (folic acid 1 mg oral tablet)?1?Milligram?1?tablet?By Mouth?Daily Gabapentin (gabapentin 600 mg oral tablet)?1?tab(s)?600?Milligram?By Mouth?3 times a day Hydroxyurea (hydroxyurea 500 mg oral capsule)?500?Milligram?By Mouth?Daily?for 30?Days nalOXONE (Narcan 4 mg/0.1 mL nasal spray)?1?spray(s)?4?Milligram?Nares, Both?Once?To be used use one spray in one nostril. if an additional dose is needed, alternate nostril. mayrepeat every 2 to 3 minutes until patient responds Oxycodone (oxyCODONE 30 mg IR tablet)?1?tab(s)?30?Milligram?By Mouth?Every 12 hours?as needed?Pain , Severe?for 7?Days Pantoprazole (pantoprazole 40 mg oral delayed release tablet)?1?tab(s)?By Mouth?Daily Tizanidine (tiZANidine 2 mg oral tablet)?4?Milligram?2?tablet?By Mouth?Every 8 hours?as needed?as needed for muscle spasm Triamcinolone Topical (triamcinolone 0.1% topical cream)?1?boyd?Topically?2 times a day?*DO NOT APPLY TO OPEN WOUND(S)* ?? Medications Started ?? Tylenol scheduled refilled Oxy for 7 days Medications Discontinued ?? None Doses Changed ?? None Allergies Allergies ?(Active and Proposed Allergies Only) NKA? (Severity: Unknown severity, Onset: Unknown) ? PCP Follow-Up/Heads-Up ?? Pain Control / Regimen ?? Outpt FU with Dermatology and Surgery in [facility] Appointments Saturday 11:00 AM EDT ?? With: Derek Tomas MD Where: [place] [id number]- Status: Pending Hospital Course ?? 38-year-old male with PMH of history of ischemic stroke with residual right- sided residual hemiparesis, aphasia; history of cardiac thrombus on Eliquis; severe retinitis with history of local excision and I&D, chronic pain on opiates; recurrent multiple admissions for management of peritonitis wounds and pain; PATY; HTN;??presented with??acute on chronic??pain, concern for??worsening wounds;??being admitted under medicine service. ?? Admission CT pelvis with IV contrast showed remonstration of extensive presumed peritonitis suppurativa in right posterior gluteal/posterior upper thigh skin/subcutaneous soft tissues; small focus ofsuperficial skin ulceration in the right gluteal region now measuring up to 1.2 cm, slightly more pronounced than prior study; no identifiable abscess. Patient was recently seen by infectious disease on 10/03/2023; as per their evaluation, no clear evidence of infection, recommended to monitor off antibiotic therapy; and with aggressive wound care and pain management; also recommended for dermatology evaluation for potential immunological therapy. Seen by??Surgery for his chronic wounds -??recommended no acute surgical intervention, recommended wound care, and since no evidence of cellulitis, no antibiotics. ?? Hospitalization further prolonged due to??pain control??- He was getting Oxy 5 q 4prn along with Dilaudid 1mg IV prn - His oxy was further increased to 10mg on 10/21 Patient seen on day of discharge???reviewed prior notes, outpatient??oxy prescription.?? Was seen by pain service??last month??at that time was??on oxycodone 30 mg IR as needed.?? [facility] He was discharged on oxycodone 20 mg every 8 hours as needed.?? He is also had ??hospitalizations??after that??and looks like with his insurance he can only have??total of 60 mg of oxycodone per day. ??Patient is aware regarding this??and he followed with PCP after that as well Discussed with pharmacy??he can otherwise have morphine - 30mg q 8prn /day. ?? Discussed several options with patient??? ( family was present as well ) including low-dose of oxycodone 15/20mg??but using more frequently??versus trialing morphine. ??However he is very??firm that he does not want morphine???saying that??it did not help him in the past. ??His mother says that it was the lower dose he was only getting 5 to 10 mg.?? He says at this time he does want to stick withthe current regimen of oxycodone 30mg q 12 and he will follow-up with his primary care physician. He follows with dermatology in [facility]??and they are trying to work with his insurance for him to have another surgical procedure. ?? Objective Vital Signs?? Temperature: 98.2 DegF (10/23/23 07:16:00) Temperature Route: Oral (10/23/23 07:16:00) Pulse Rate:??50 bpm??Low (10/23/23 07:16:00) Respiratory Rate: 16 br/min (10/23/23 12:35:00) Systolic Blood Pressure: 121 mm Hg (10/23/23 08:23:00) Diastolic Blood Pressure: 63 mm Hg (10/23/23 08:23:00) Blood pressure sites: Arm, left (10/23/23 07:16:00) Mean Arterial Pressure: 82 mm Hg (10/23/23 07:16:00) Pulse Pressure: 58 mm Hg (10/23/23 07:16:00) Oxygen Saturation: 98 % (10/23/23 07:16:00) Mode of Delivery (Oxygen): Room air (10/23/23 07:16:00) Early Warning Score: 1 (10/23/23 12:35:55) ? . Physical Exam Consultants ?? Surgery Wound Care Pending Results No Pending Results Follow-Up Appointments Added Follow Up ?Time Frame ?Comments Jacobo-Derek Webb MD?1 to 2 weeks?Needs FU on pain regimen Home Health Face to Face *Denotes mandatory burton ?? *I certify that this patient is under my care and that I or an allowed non- physician working with me had a face to face encounter with the patient on this date:??10/23/2023 13:55 ?? *The encounter with the patient was in whole, or in part, for the following medical condition, which is the primary diagnosis(es) for home health care:??History of ischemic stroke (Z86.73) Chronic pain (G89.29) GERD (gastroesophageal reflux disease) (K21.9) Hypertension (I10) PATY (iron deficiency anemia) (D50.9) Mural thrombus of cardiac apex (I51.3) Right spastic hemiparesis (G81.11) Wound of buttock (S31.599E) Thrombocytosis (D75.839) Intractable pain (R52) Hidradenitis suppurativa (L73.2) Bedbound (Z74.01) ?? *Select the indications for the discipline/s that are being arranged for this patient. Nursing (select all that apply): [_] None [X] Medication management (reconciliation, teaching)?? [_] Chronic disease management?? [X] Wound care and treatment?? [_] Home safety evaluation [_] Administer SQ/IM/IV medications?? [_] Cath care?? [_] Drain care?? [_] Trach or GT care? Wound Care 1.) Right buttock: Gently cleanse/irrigate wound beds followed by the periwound with VASHE solutionmoistened gauze. Allow to dry. Cut Aquacel ag in a spiral shape creating one long piece. Pack 'multiple separate tracts/tunnels' loosely with Aquacel ag, leaving a wick to allow for easy removal. Cover other draining 'tracts/tunnels' that can not be packed with Aquacel ag. Secure with large Mepilexfoam dressing or ABD pad/Hypafix. Change every other day and as needed for soiling/saturation.? *Do not use multiple pieces of Aquacel ag - concern for leaving pieces inside wound d/t depth and unable to visualize wound bed* *If aquacel ag is difficult to remove with dressing changes , please re-consult Inpatient Wound Care Team. Trauma can occur when removing a dry adhered dressing from a dry wound.?? _ Occupation Therapy (select all that apply): [_] None [_] ADL Management [_] Fall prevention training [_] Energy conservation [_] Cognitive training Other _ Physical Therapy (select all that apply): [_] None [X] Functional mobility training [_] Home exercise program [...] weight bearing [_] Mental status change? *Physician Signature:?? Jackie Ribeiro_ ?? *By signing this, I certify that I have personally evaluated the patient and agree with the findings and recommendations as documented above. ? Results Discharge Labs BLOOD COUNT & DIFF WBC 7.0 k/mm3 ()?? 10/20/2023 22:13 RBC 3.35 m/mm3 (Low)?? 10/20/2023 22:13 Hgb 8.1 Gm/dL (Low)?? 10/20/2023 22:13 Hct 27.9 % (Low)?? 10/20/2023 22:13 MCV 83.3 femtoliters ()?? 10/20/2023 22:13 MCH 24.2 pg (Low)?? 10/20/2023 22:13 MCHC 29.0 g/dL (Low)?? 10/20/2023 22:13 Platelet Count 743 k/mm3 (High)?? 10/20/2023 22:13 RDW-SD 56.0 femtoliters (High)?? 10/20/2023 22:13 MPV 8.4 femtoliters (Low)?? 10/20/2023 22:13 Nucleated RBC (Automated) 0.0 #/100 WBC'S ()?? 10/20/2023 22:13 Abs. NRBC 0.0 k/mm3 ()?? 10/20/2023 22:13 Abs. Neut 4.4 k/mm3 ()?? 10/20/2023 22:13 Abs. Lymph 1.9 k/mm3 ()?? 10/20/2023 22:13 Abs. Montcalm 0.6 k/mm3 ()?? 10/20/2023 22:13 Abs. Eo 0.1 k/mm3 ()?? 10/20/2023 22:13 Abs. Baso 0.0 k/mm3 ()?? 10/20/2023 22:13 Neut % 63.2 % ()?? 10/20/2023 22:13 Lymph % 26.7 % ()?? 10/20/2023 22:13 Montcalm % 8.0 % ()?? 10/20/2023 22:13 Eos % 1.4 % ()?? 10/20/2023 22:13 Baso % 0.4 % ()?? 10/20/2023 22:13 Imm Gran 0.3 % ()?? 10/20/2023 22:13 Abs. Imm Gran 0.0 k/mm3 ()?? 10/20/2023 22:13 ?? CHEM GENERAL Sodium 139 mmol/L ()?? 10/20/2023 22:13 Potassium 4.3 mmol/L ()?? 10/20/2023 22:13 Chloride 102 mmol/L ()?? 10/20/2023 22:13 Bicarbonate Level 26 mmol/L ()?? 10/20/2023 22:13 Anion Gap 11 ()?? 10/20/2023 22:13 Glucose Level 87 mg/dL ()?? 10/20/2023 22:13 BUN 12 mg/dL ()?? 10/20/2023 22:13 Creatinine-Blood 0.75 mg/dL ()?? 10/20/2023 22:13 Estimated GFR Creatinine 119 ML/MIN/1.73 M2 ()?? 10/20/2023 22:13 Calcium 8.4 mg/dL (Low)?? 10/20/2023 22:13 ?? URINE OTHER Est Creatinine Clearance 164.61 mL/min ()?? 10/21/2023 02:11 ? 35_ minutes spent on discharge * Shruti Nolasco RN: PERFORM, SIGN, VERIFY Event Display: Case Management Discharge Plan Authored Date: Patient: DAVID MCQUEEN Age: 38 years Sex: Male : 1985 Associated Diagnoses: None Author: Shruti Nolasco RN Discharge Plan Case Management Discharge Plan : Case Management Discharge Plan Data 10/23/2023 13:43 EDT Discharge Level of Care at Discharge Homehealth/VNA Discharge VNA/Hospice/Home Care [facility] [phone] Discharge Transportation Arranged [facility] [address] [facility] [phone] Mode of Transportation Arranged Ambulance Name of Agency #1 [facility] Agency Fast [employer] Team Member #1 Intake Service Categories #1 Penitentiary, Wound Care Service Comments #1 You are being discharged and returning to care with [facility] Medical Visiting nurses for long-term and assist with wound care. If you do not hear from them 24 hours after discharge, please call them. * Daja Maradiaga RN: PERFORM Event Display: Patient Education/Instruction Authored Date: [id number] Inpatient Adult Discharge Instructions. [address] [address] Name: DAVID MCQUEEN : 1985?? Visit: 10/20/2023 20:52?? Current Date: 10/23/2023 15:24 ?? Account: [id number]?? Inpatient Adult Discharge Instructions We would like [...] and their families. Surveys are administered by [employer] ?? If further treatment with your primary care physician or another doctor is recommended, it is important for you to keep the appointment. Call your primary care physician or return to the Emergency Department immediately if your condition worsens, fails to improve, or new symptoms develop. If you need to find a doctor, you can call [facility] Link for a referral at [phone] or toll free at [phone]) or log in to [email or web address].. ?? [facility], in keeping with [facility] guidance, no longer requires face masks [...] a health care boyd of your choosing. [employer] is a website that allows you to securely view your medical information including your hospital discharge summary, office visit summaries, medications and follow-up visits. You can also request appointments, renew medications, and request access to your medical information using a health care boyd of your choosing, or just ask a question. You can enroll at [email or web address] or register during your next office visit. You have been discharged from [facility], Patient Care Unit: W3??. If you have any questions regarding these instructions, including results of studies pending, afteryou leave, please call us and we will be happy to assist you 03/12. [facility] Your Care Team Attending Physician Jackie Ribeiro MD?? Consulting Providers Jackie Ribeiro MD?? Discharging Providers Jackie Ribeiro MD Reason for Your Visit Right sided paralysis from prior stroke, c/o right buttock pressure sore x2 wks. Called EMS becausehome CLINICAL CYTOGENETICIST does not reposition him and pt wants ti checked outr?? Your Diagnosis History of ischemic stroke Chronic pain GERD (gastroesophageal reflux disease) Hypertension PATY (iron deficiency anemia) Mural thrombus of cardiac apex Right spastic hemiparesis Wound of buttock Thrombocytosis Decubitus Ulcer Tests Performed Below is a partial list of the tests performed during your hospitalization. You may have had other tests and procedures not included in this list. Please discuss all test results with your provider. Basic Metabolic Panel CBC w/ Differential CT Pelvis W/ Contrast No tests performed during this visit.?? Primary Care Provider Derek Tomas MD? Advance Directive Health Care Proxy on File Yes - Health Care Proxy Discharge Vitals Temperature: 98.1 DegF Height: 193 cm Pulse Rate: 58 bpm Weight: 86.3 kg Respiratory Rate: 16 br/min Body Mass Index: 23.17 kg/m2 Systolic Blood Pressure: 105 mm Hg Body surface area: 2.15 Diastolic Blood Pressure: 66 mm Hg ?? Oxygen Saturation: 98 % ?? Studies Pending All studies ordered during this hospital stay have been completed unless listed below. Please discuss all pending results with your provider listed above in these instructions. ?? No incomplete studies found?? What to do next Instructions From Your Doctor ?? Orders? 10/23/23 14:56:00 EDT?? Prescriptions??, ??10/23/23 14:56:00 EDT?? Scheduled Follow-Up Appointments Saturday 11:00 AM EDT ?? With: Derek Tomas MD Where: [facility] [address] [place] [address]- Status: Pending You Need to Schedule the Following Appointments Follow Up with??Derek Tomas MD When:??Within 1 to 2 weeks Why: Needs FU on pain regimen Where: [address] [place] [phone]- Discharge Medications MCQUEENDAVID LAU :1985 Visit Date:10/20/2023 Medications: Please continue your medications until treatment is completed or stopped by your provider. Medications not listed below should be discontinued. Discuss any questions related to medications with your provider. What How Much When Why Instructions Next Dose New Acetaminophen (Tylenol 325 mg oral tablet) 975 Milligram Oral Every 8 hours 6pm Changed Oxycodone (oxyCODONE 30 mg IR tablet) 1 tab(s) Oral Every 12 hours as needed for Pain , Severe Duration: [facility] [place] [address] [facility] Unchanged Amlodipine (amLODIPine 5 mg oral tablet) 1 tab(s) Oral Daily 9am tomorrow Unchanged apixaban (Eliquis 5 mg oral tablet) 1 tab(s) Oral Twice a day 9pm Unchanged Ascorbic Acid (ascorbic acid 500 mg oral tablet) 1 tab(s) Oral Daily not given Unchanged Baclofen (baclofen 20 mg oral tablet) 1 tab(s) Oral 4 times a day 5pm Unchanged Cholecalciferol (Vitamin D3 1000 intl units oral tablet) 1 tab(s) Oral Daily 9am tomorrow Unchanged Docusate (docusate sodium 100 mg oral capsule) 1 capsule Oral Twice a day 9pm Unchanged Duloxetine (duloxetine 30 mg oral enteric coated capsule) 1 capsule Oral Daily Duration: 30 Days TAKE 1 CAPSULE BY MOUTH EVERY DAY ?? 9am tomorrow Unchanged Durable Medical Equipment (Vashe wound solution) See instructions Hydradenitis Use 45mL daily ?? Unchanged Ferrous Sulfate (ferrous sulfate 325 mg oral tablet) 1 tab(s) Oral Twice a day 9am tomorrow Unchanged Folic Acid (folic acid 1 mg oral tablet) 1 tab(s) Oral Daily 9am tomorrow Unchanged Gabapentin (gabapentin 600 mg oral tablet) 1 tab(s) Oral 3 times a day 9pm Unchanged Hydroxyurea (hydroxyurea 500 mg oral capsule) 500 Milligram Oral Daily Duration: 30 Days 9am tomorrow Unchanged nalOXONE (Narcan 4 mg/ 0.1 mL nasal spray) 1 spray(s) Nares, Both Once To be used use one spray in one nostril. if an additional dose is needed, alternate nostril. may repeat every 2 to 3 minutes until patient responds ?? not given Unchanged Pantoprazole (pantoprazole 40 mg oral delayed release tablet) 1 tab(s) Oral Daily 9am Unchanged Tizanidine (tiZANidine 2 mg oral tablet) 2 tab(s) Oral Every 8 hours as needed for as needed for muscle spasm not given Unchanged Triamcinolone Topical (triamcinolone 0.1% topical cream) 1 boyd Topically Twice a day *DO NOT APPLY TO OPEN WOUND(S)* ?? not given [facility] Information [facility]: [address], [place] [id number] [phone] Prescription Given During Visit Oxycodone (oxyCODONE 30 mg IR tablet) - 1 tablet = 30 mg, By Mouth, Every 12 hours, # 14 tablet, 0 Refills, [facility], [address] [place] [address] [phone]?? Laboratory Results Below is a partial list of the most recent Laboratory test results done prior to this discharge. You may have had other tests and procedures not included in this list. Please discuss all test resultswith your provider. Est Creatinine Clearance - 164.61 mL/min (10/21/2023) Basic Metabolic Panel (10/20/2023) ???Sodium - 139 mmol/L???Potassium - 4.3 mmol/L???Chloride - 102 mmol/L???Bicarbonate Level - 26 mmol/L???Anion Gap - 11???Glucose Level - 87 mg/dL???BUN - 12 mg/dL???Creatinine-Blood - 0.75 mg/dL???Estimated GFR Creatinine - 119 ML/MIN/1.73 M2???Calcium - 8.4 mg/dL CBC w/ Differential (10/20/2023) ???WBC - 7.0 k/mm3???RBC - 3.35 m/mm3???Hgb - 8.1 Gm/dL???Hct - 27.9 %???MCV - 83.3 femtoliters???MCH - 24.2 pg???MCHC - 29.0 g/dL???Platelet Count - 743 k/mm3???RDW-SD - 56.0 femtoliters???MPV - 8.4femtoliters???Nucleated RBC (Automated) - 0.0 #/100 WBC'S???Abs. NRBC - 0.0 k/mm3???Abs. Neut - 4.4 k/mm3???Abs. Lymph - 1.9 k/mm3???Abs. Montcalm - 0.6 k/mm3???Abs. Eo - 0.1 k/mm3???Abs. Baso - 0.0 k/mm3???Neut % - 63.2 %???Lymph % - 26.7 %???Montcalm % - 8.0 %???Eos % - 1.4 %???Baso % - 0.4 %???Imm Gran - 0.3 %???Abs. Imm Gran - 0.0 k/mm3 Allergies (NKA means No Known Allergies) NKA Problems Active Problems??(20) [facility] Product Delivery Specialist Carmen Elizabeth [phone]?? Chronic ischemic left ICA stroke?? Chronic pain?? Controlled substance agreement signed 10/16/22?? Depression?? GERD (gastroesophageal reflux disease)?? Hidradenitis suppurativa?? History of ischemic stroke?? Hypertension?? PATY (iron deficiency anemia)?? Insomnia?? Iron deficiency anemia?? Mural thrombus of cardiac apex?? Peripheral neuropathy?? Right spastic hemiparesis?? Spasticity?? Therapeutic drug monitoring?? Thrombocytosis?? Tobacco dependence?? Wound of buttock?? Education Materials Below is the list of Educational Leaflet Providered with your Discharge Instructions. Valuables and Belongings I fully understand and agree that [facility] accepts no responsibility for all my [...] ?? Date for Pt to Sign Valuables/Belongings: 10/21/23 02:21:00 ?? Other Discharge Information ? Case Management Discharge Plan?? Discharge Plan?? Discharge Agency Information?? Discharge Level of Care at Discharge: Homehealth/VNA Name of Agency #1: [facility] Discharge Transportation Arranged: [facility] [address] [facility] [phone] Agency Fast Food Team Member #1: Intake Mode of Transportation Arranged: Ambulance Service Categories #1: Penitentiary, Wound Care Discharge VNA/Hospice/Home Care: [facility] [phone] Service Comments #1: You are being discharged and returning to care with [facility] Medical Visiting nurses for long-term and assist with wound care. If you do not hear from them 24 hours after discharge, please call them. ?? Pulmonary Rehab Status?? Pulmonary Rehab Discharge Status?? Respiratory Rate: 16 br/min ? Common Emergency Awareness Tips IS [...] are strongly encouraged to quit. Please call [facility] Link at [phone] or [phone]) or log in to [email or web address] for referrals to smoking cessation programs. ?? 920 Suicide & Crisis Lifeline is available 03/12 if you or someone you know needs to find a reason to keep living. By calling 613 you'll be connected to a skilled, trained counselor at a crisis center in your area. INPATIENT DISCHARGE INSTRUCTIONS SIGNATURE PAGE DAVID MCQUEEN Location:[facility] Registration Date and Time:10/20/2023 20:52 EDT Primary Care Physician: Derek Tomas MD, Attending Physician: Jackie Ribeiro MD, I DAVID MCQUEEN, have received the above patient education materials/instructions and have verbalized understanding. If ambulance or transport services are being used I further acknowledge being given a choice of service. ?? If you need to contact me, please call me at this number: . Patient/Layout Artist Name: Patient/Layout Artist Signature: Relationship to Patient: Witness Name/Signature: Date: Patient Care team information Care Team Personnel Name: Anu Lipscomb RN Position: S RN Member Role: Primary Care Nurse Name: Jeanne Bryant RN Position: S RN Member Role: Primary Care Nurse Name: Mitch Guido RN Position: S RN Member Role: Primary Care Nurse Name: Areli Pittman RN Position: [facility] ED RN W/OE and Tasks Member Role: Primary Care Nurse Name: Derek Tomas MD Position: [facility] Resident Member Role: PCP Address: Address: [address] [place] [id number] Name: Mari Suh RN Position: S RN Member Role: Primary Care Nurse Name: Monique Irwin LPN Position: [facility] RN Member Role: Primary Care Nurse Name: Lianna Epstein RN Position: S RN Member Role: Primary Care Nurse Name: Mk Knutson LPN Position: S RN Member Role: Primary Care Nurse Name: Farhana Garcia RN Position: S RN Member Role: Primary Care Nurse Name: Kenyatta Villegas RN Position: [facility] RN Member Role: Primary Care Nurse Name: Albertina Adams RN Position: S RN Member Role: Primary Care Nurse Name: Ricardo Russell RN Position: S RN Member Role: Primary Care Nurse Name: Gissell Jernigan RN Position: S RN Member Role: Primary Care Nurse Name: Farhana Green RN Position: S RN Member Role: Primary Care Nurse Name: Cydney Delgado RN Position: S RN Member Role: Primary Care Nurse Name: Sharon Mendez RN Position: S RN Member Role: Primary Care Nurse Name: Mookie Christianson RN Position: [facility] RN Member Role: Primary Care Nurse Name: Ally Boyd RN Position: S RN Member Role: Primary Care Nurse Name: Javed Oneill RN Position: [facility] RN Member Role: Primary Care Nurse Name: Lynn Stewart RN Position: [facility] RN Member Role: Primary Care Nurse Name: Amanda Johnson RN Position: [facility] RN Member Role: Primary Care Nurse Name: Jolie Villalobos RN Position: [facility] RN Member Role: Primary Care Nurse Name: Axel Savage RN Position: [facility] RN Member Role: Primary Care Nurse Name: Dirk Driver RN Position: [facility] RN Member Role: Primary Care Nurse Name: Glenys Bee RN Position: [facility] RN Member Role: Primary Care Nurse Name: Praveen Maurer RN Position: [facility] RN Member Role: Primary Care Nurse Name: Filemon King RN Position: [facility] RN Member Role: Primary Care Nurse Name: Lauren Guevara RN Position: [facility] RN Member Role: Primary Care Nurse Name: Annamaria Quinn RN Position: [facility] RN Member Role: Primary Care Nurse Name: Lashawn Nagy RN Position: [facility] RN Member Role: Primary Care Nurse Name: Rhonda Tate LPN Position: [facility] RN Member Role: Primary Care Nurse Name: Jacquelin Naranjo RN Position: [facility] RN Member Role: Primary Care Nurse Name: Glenys Fox RN Position: [facility] RN Member Role: Primary Care Nurse Care Team Related Persons Name: BEVERLY REYNAGA Address: home [place], [place] Name: HEENA MCQUEEN Address: home [address], [place] Name: AISLINN DE LA PAZ Address: [address] [place] [address]
--- OUTSIDE RECORDS SUMMARY | 2024-01-21 19:30 | XMS_ITS | Continuity of Care Document ---
Author Organization [facility] Address [address] [place] [address]- Care Team Providers Care Leguillon Debeader Name Role Phone Genoveva PAGAN, Derek Primary Care Physician Encounter [facility] Date(s): 12/11/23 - 01/10/[address] [address]- Allergies, Adverse Reactions, Alerts No Known Allergies [...] 08/06/23 9:00:00 EDT, Route to Pharmacy Electronically, [facility]/pharmacy #[id number], 182, cm, 07/26/23 9:16:00 EDT, Height, 89, kg, 07/03/23 11:22:00 EST, Dry Weight Start Date: 08/06/23 Status: Ordered clindamycin 1% topical gel APPLY TO AFFECTED AREA TOPICALLY TWICE A DAY Start Date: 11/17/23 Status: Ordered docusate sodium 100 mg oral capsule 1 capsule, By Mouth, 2 times a day, # 60 capsule, 11 Refills, Maintenance, 09/03/23 17:44:00 EDT, [id number], 193, cm, 09/03/23 14:09:00 EDT, Height, 91.4, kg, 08/30/23 12:03:00 EDT, Dry Weight Start Date: 09/03/23 Status: Ordered duloxetine 30 mg oral enteric coated capsule 1 capsule = 30 mg, By Mouth, 2 times a day, TAKE 1 CAPSULE BY MOUTH EVERY DAY, # 60 capsule, 6 Refills, Maintenance, 10/25/23 15:39:00 EDT, Capsule, [facility]/pharmacy #[id number], Partial [...] 0 Refills, Maintenance, 10/16/23 15:51:00 EDT, [id number], 193, cm, 10/04/23 3:49:00 EDT, Height, 90.4, [...] tablet, 11 Refills, Maintenance, 08/12/23 13:51:00EDT, Tablet, [facility]/pharmacy #[id number], Partial fill upon patient request if the prescription is for a schedule II opioid drug., 182, cm, 07/26/23 9:16:00 EDT... Start Date: 08/12/23 Status: Ordered hydroxyurea 500 mg oral capsule 1 capsule, By Mouth, Daily, # 30 capsule, 0 Refills, Maintenance, 12/11/23 14:15:00 EDT, [id number], 194, cm, 11/20/23 13:14:00 EDT, Height, 93.9, [...] 02/07/24 7:02:00 EDT, 01/10/24 7:02:00 EDT, Tablet, [facility]/pharmacy #[id number], Partial fill upon patient request if the prescription is for a sched... Start Date: 01/10/24 Stop Date: 02/07/24 Status: Ordered oxyCODONE 30 mg oral tablet 1 tablet = 30 mg, By Mouth, Every 6 hours, PRN as needed for pain, # 56 tablet, 0 Refills, Maintenance, 01/04/24 2:45:00 EDT, Tablet, [facility], Partial fill upon patient request if the prescription is for a schedule II opioid drug., 19... Start Date: 01/04/24 Status: Ordered pantoprazole 40 mg oral delayed [...] 08/12/23 13:51:00 EDT, Route to Pharmacy Electronically, [facility]/pharmacy #[id number], Partial fill upon patient request if the [...] 0 Refills, Maintenance, 07/16/23 10:05:00 EST, Tablet, [facility], Partial fill upon [...] Team Personnel Name: Rita Welch RN Position: [facility] RN Member Role: Primary Care Nurse Name: Sanna Cardozo RN Position: [facility] RN Member Role: Primary Care Nurse Name: Anu Lipscomb RN Position: [facility] RN Member Role: Primary Care Nurse Name: Jeanne Bryant RN Position: [facility] RN Member Role: Primary Care Nurse Name: Mitch Guido RN Position: [facility] RN Member Role: Primary Care Nurse Name: Albertina Kerr RN Position: [facility] RN Member Role: Primary Care Nurse Name: Derek Tomas MD Position: [facility] Resident Member Role: PCP Address: Address: [address] [place] [address] Name: Mari Suh RN Position: S RN Member Role: Primary Care Nurse Name: Jen Garibay RN Position: S RN Member Role: Primary Care Nurse Name: Monique Irwin LPN Position: [facility] RN Member Role: Primary Care Nurse Name: Lianna Epstein RN Position: [facility] RN Member Role: Primary Care Nurse Name: Austin Wright RN Position: [facility] RN Member Role: Primary Care Nurse Name: Mk Knutson LPN Position: [facility] RN Member Role: Primary Care Nurse Name: Vicenta Barnett RN Position: [facility] RN Member Role: Primary Care Nurse Name: Betty Fonseca RN Position: [facility] RN Member Role: Primary Care Nurse Name: Farhana Garcia RN Position: [facility] RN Member Role: Primary Care Nurse Name: Kenyatta Villegas RN Position: [facility] RN Member Role: Primary Care Nurse Name: Albertina Adams RN Position: [facility] RN Member Role: Primary Care Nurse Name: Ricardo Russell RN Position: [facility] RN Member Role: Primary Care Nurse Name: Gissell Jernigan RN Position: [facility] RN Member Role: Primary Care Nurse Name: Farhana Green RN Position: [facility] RN Member Role: Primary Care Nurse Name: Cydney Delgado RN Position: [facility] RN Member Role: Primary Care Nurse Name: Debbie Rios RN Position: [facility] RN Member Role: Primary Care Nurse Name: Sharon Mendez RN Position: [facility] RN Member Role: Primary Care Nurse Name: Mookie Christianson RN Position: [facility] RN Member Role: Primary Care Nurse Name: Ally Boyd RN Position: [facility] RN Member Role: Primary Care Nurse Name: Javed Oneill RN Position: [facility] RN Member Role: Primary Care Nurse Name: Frances Quach RN Position: [facility] RN Member Role: Primary Care Nurse Name: Sandie Mejia RN Position: [facility] RN Member Role: Primary Care Nurse Name: Kriss Castillo RN Position: [facility] RN Member Role: Primary Care Nurse Name: Lynn Stewart RN Position: [facility] RN Member Role: Primary Care Nurse Name: Amanda Johnson RN Position: [facility] RN Member Role: Primary Care Nurse Name: Jolie Villalobos RN Position: [facility] RN Member Role: Primary Care Nurse Name: Axel Savage RN Position: [facility] RN Member Role: Primary Care Nurse Name: Dirk Driver RN Position: [facility] RN Member Role: Primary Care Nurse Name: Glenys Bee RN Position: [facility] RN Member Role: Primary Care Nurse Name: Praveen Maurer RN Position: [facility] RN Member Role: Primary Care Nurse Name: Filemon King RN Position: [facility] RN Member Role: Primary Care Nurse Name: Gomez Corona RN Position: [facility] RN Member Role: Primary Care Nurse Name: Lauren Guevara RN Position: [facility] RN Member Role: Primary Care Nurse Name: Annamaria Quinn RN Position: [facility] RN Member Role: Primary Care Nurse Name: Deana Short RN Position: [facility] RN Member Role: Primary Care Nurse Name: Lashawn Nagy RN Position: [facility] RN Member Role: Primary Care Nurse Name: Rhonda Tate LPN Position: [facility] RN Member Role: Primary Care Nurse Name: Jacquelin Naranjo RN Position: [facility] RN Member Role: Primary Care Nurse Name: Glenys Fox RN Position: [facility] RN Member Role: Primary Care Nurse Name: Reilly Moreno RN Position: [facility] RN Member Role: Primary Care Nurse Care Team Related Persons Name: BEVERLY REYNAGA Address: home [address], [place] Name: HEENA MCQUEEN Address: [place] [address], [place] Name: AISLINN DE LA PAZ Address: [address] [address]
--- OUTSIDE RECORDS SUMMARY | 2024-01-21 19:30 | XMS_ITS | Continuity of Care Document ---
Author Organization [facility] ter Address [address] [place] [id number]- Care Team Providers Care Webmethods Consultant Name Role Phone Derek Tomas MD Primary Care Physician Encounter [facility] Date(s): 10/02/23 - 10/04/[address] [address]- Encounter Diagnosis Hidradenitis suppurativa(Final) - 10/02/23 Discharge Disposition: A-D/C Home Attending Physician: Cat Mohr MD Admitting Physician: Radha Calix MD Referring Physician: Not on Staff, Referring MD Allergies, Adverse Reactions, Alerts No Known Allergies Immunizations Given and Recorded Vaccine Date Status Refusal Reason influenza virus vaccine, inactivated 05/18/22 Give n tetanus/diphtheria/pertussis, acel(Tdap) 09/13/19 Recorded Medications Acetaminophen Tablet 650 mg, Tablet, By Mouth, Temperature Greater than 100.5, 10/04/23 15:00:00 EDT Start Date: 10/04/23 Stop Date: 10/04/23 Status: Completed amLODIPine 5 mg oral tablet 5 mg, 1, tablet, By Mouth, Daily, # 30 tablet, Refills 0, Tot. Refills 0, Maintenance, 06/17/23 8:53:00 EST, Route to Pharmacy Electronically, [facility], Partial fill upon patient [...] [facility]/pharmacy #[id number], 182, cm, 07/26/23 9:16:00 EDT, Height, 89, kg, 07/03/23 11:22:00 EST, Dry Weight Start Date: 08/06/23 Status: Ordered docusate sodium 100 mg oral capsule 1 capsule, By Mouth, 2 times a day, # 60 capsule, 11 Refills, Maintenance, 09/03/23 17:44:00 EDT, [facility] STORE [id number], 193, cm, 09/03/23 14:09:00 EDT, Height, 91.4, kg, 08/30/23 12:03:00 EDT, Dry Weight Start Date: 09/03/23 Status: Ordered duloxetine 30 mg oral enteric coated capsule 1 capsule = 30 mg, By Mouth, Daily, TAKE 1 CAPSULE BY MOUTH EVERY DAY, # 30 capsule, 6 Refills, Maintenance, 09/03/23 17:47:00 EDT, Capsule, [facility] [...] oral capsule 600 mg, Capsule, By Mouth, 10/04/23 15:00:00 EDT Start Date: 10/04/23 Stop Date: 10/04/23 Status: Completed gabapentin 600 mg oral tablet 1 tablet = 600 mg, By Mouth, 3 times a day, # 90 tablet, 11 Refills, Maintenance, 08/12/23 13:51:00EDT, Tablet, [facility] [...] EDT, 07/20/23 14:36:00 EST, Capsule, [facility] [...] 12:41:00 EDT, 09/06/23 12:41:00 EDT, REC Powder, [facility] [...] [facility]... Start Date: 08/23/23 Status: Ordered oxyCODONE 20 mg oral tablet 1 tablet = 20 mg, By Mouth, Every 8 hours, for 3 days, # 9 tablet, 0 Refills, Acute 10/07/23 16:02:00 EDT, 10/04/23 16:02:00 EDT, Tablet, [facility], Partial fill upon patient request if the prescription is for a schedule II opioid drug.... Start Date: 10/04/23 Stop Date: 10/07/23 Status: Ordered oxyCODONE 5 mg oral tablet 30 mg, Tablet, By Mouth, 10/04/23 15:00:00 EDT Start Date: 10/04/23 Stop Date: 10/04/23 Status: Completed pantoprazole 40 mg oral delayed [...] [facility][id number], Partial fill upon patient request if the [...] 0 Refills, Maintenance, 07/16/23 10:05:00 EST, Tablet, [facility], Partial fill upon patient [...] apex Confirmed Active [facility] Care Management, Dance Director Carmen Elizabeth [phone] Confirmed Active Therapeutic drug monitoring Confirmed Active Peripheral neuropathy Confirmed Active Right spastic hemiparesis Confirmed Active Spasticity Confirmed Active Tobacco dependence Confirmed Active Results Radiology Reports * Exam Date Time Procedure Performing Provider Status 10/02/23 2:[address] Pelvis W/ Contrast Cathiesmooth Mainor son; Auth (Verified) Notes: (CT Pelvis W/ Contrast) Reason For Exam: ? large right gluteal abscess;Other: RESULT: CT Pelvis W/ Contrast CT Pelvis W/ Contrast Reason: Other:; ? large right gluteal abscess; Clinical Question(s): Abscess; Order Comment: TECHNIQUE: Helical CT with IV contrast formatted in 3 planes. 100 cc of Omnipaque 300 was administered intravenously. Enteric contrast administered. Automatic tube modulation and/or iterative dose reconstruction were used to optimize exposure parameters. CTDIvol Body: 9.10 mGy, DLP Body: 395 mGy*cm. COMPARISON: 09/22/2023 FINDINGS: Soft tissues: Extensive skin thickening and soft tissue thickening extending into the subcutaneous soft tissues of the right gluteal region and right proximal thigh measuring up to 19 mm in thickness. Mild adjacent stranding. A superficial foci of gas in the skin surface likely reflecting ulceration. No discrete drainable fluid collection. Overall appearances similar to prior examination. Underlying musculature is unremarkable. Chronic prominent right and external iliac lymph nodes, likely reactive. Bones: Severe left hip degenerative changes in single partially cannulated screw in the left hip. Left coxa breva and coxa magna. IMPRESSION: No significant change in extensive area of presumed hidradenitis suppurativa of the right gluteal region. No discrete drainable abscess. WSN: [id number] Ordering Physician: Eliane Willoughby Dictated By: Chidi Leblanc MD Dictated Date/Time: 10/02/23 3:17 pm Reviewed By: Chidi Leblanc MD Signed By: Chidi Leblanc MD Signed Date/Time: 10/02/23 3:17 pm Transcribed By: ZEHRA Transcribed Date/Time: 10/02/23 3:11 pm Vital Signs Most recent to oldest [Reference Range]: 1 2 3 Height 193 cm (10/04/23 3:49 AM) 193 cm (10/03/23 7:58 PM) 193 cm (10/02/23 1:15 PM) Weight 88.9 kg (10/02/23 9:19 PM) 100 kg (10/02/23 1:15 PM) Oxygen Saturation [94-100 %] 99 % (10/04/23 12:00 PM) 100 % (10/04/23 6:00 AM) 96 % (10/04/23 3:49 AM) Pulse Rate [55-90 bpm] 70 bpm (10/04/23 12:00 PM) 58 bpm (10/04/23 6:00 AM) 52 bpm *L* (10/04/23 3:49 AM) Blood Pressure [90-138/55-84 mm Hg] 114/33mm Hg (10/04/23 12:00 PM) 103/40mm Hg (10/04/23 6:00 AM) 120/48mm Hg (10/04/23 3:49 AM) Respiratory Rate [16-30 br/min] 15 br/min *L* (10/04/23 4:26 PM) 15 br/min *L* (10/04/23 4:24 PM) 15 br/min *L* (10/04/23 4:24 PM) Temperature [96.8-100.4 DegF] 98.1 DegF (10/04/23 1:00 PM) 100.0 DegF (10/04/23 12:00 PM) 98.2 DegF (10/04/23 6:00 AM) Mode of Delivery (Oxygen) Room air (10/04/23 12:00 PM) Room air (10/04/23 6:00 AM) Room air (10/04/23 3:49 AM) Blood pressure sites Arm, left (10/03/23 12:00 PM) Arm, left (10/03/23 6:00 AM) Arm, left (10/03/23 12:00 AM) Temperature Route Axillary (10/04/23 1:00 PM) Oral (10/04/23 12:00 PM) Oral (10/04/23 6:00 AM) Dry Weight 100 kg (10/02/23 1:15 PM) Social History Social History Type Response Smoking Status 5-9 cigarettes (betw een 1/4 to 1/2 pack)/day in last 30 days entered on: 05/16/22 Sex Admission evaluation note * Stefano PAGAN, Chris: MODIFY, PERFORM, MODIFY, MODIFY, MODIFY, MODIFY, MODIFY Event Display: Admission Note Authored Date: [id number] Patient: ??DAVID MCQUEEN ? Age:??38 Years?Sex:??Male?:??1985?? Chief Complaint/Reason for Consultation Pt is coming from PCP office, multiple abscess on right buttocks. pt has been dealing with these onand off for 3-4 years. coming from primary care due to doctor referral to rule out sepsis. reports abscesses are infected and oozing. pt has previous st History of Present Illness This is a case of a 38-year-old male with a past medical history significant for left ICA stroke with residual right-sided spastic hemiparesis, dysarthria, thrombus of the cardiac apex on Eliquis, severe hidradenitis with local excision and I&D's who presents from their PCP office for multiple purulent lesions??requiring IV antibiotics.?? Of note, the patient was evaluated in the emergency department on 09/21/2023 and was hospitalized and subsequently discharged on 09/23.?? He states that since he was discharged, his pain is continued to get worse and is having increased bloody and purulentdrainage.?? He does not endorse any fevers, chills or any other systemic symptoms including nausea,vomiting, diarrhea, change in appetite or, dysuria.?? The patient has been taking analgesics at home (morphine) which she states helped relieving his pain.?? Prior to ED arrival, his last dose of morphine was 3 to 4 hours ago.?? The patient was given further analgesics in the emergency department however he was still uncomfortable with Dilaudid. During my evaluation, the patient continued to be in??pain and stated that he was??still 02/19 however there was some improvement with Dilaudid.?? He is also requesting??further wound care and adequate pain management??however due to his dysarthria his communication is limited. ?? Initial ED evaluation: ??? Anemia: 8.1/27.4 ??? Normal white count ??? Thrombocytosis (although appears to be chronic) ??? Normal basic metabolic profile ??? Normal lactate at 1.1. ??? CT pelvis with contrast: No significant change in extensive area of presumed hidradenitis suppurativa right gluteal region; no discrete drainable abscess ?? Initial ED management: ??? 2 mg hydromorphone (x 3) Review of Systems Constitutional: Pain +ve. No weight loss, fever, chills, weakness or fatigue. Respiratory:??No shortness of breath, cough or sputum production. Cardiovascular:??No chest pain, chest pressure or chest discomfort. No palpitations or pedal edema. Gastrointestinal:??No anorexia, nausea, vomiting or diarrhea. No abdominal pain or blood in stool. Genitourinary:??No burning micturition. No urinary frequency or incontinence. Neurologic:??No headache, dizziness, syncope, unilateral weakness, ataxia, numbness or tingling in the extremities. No change in bowel or bladder control. Musculoskeletal:??No muscle pain, back pain, joint pain or stiffness. Psychiatric:??No depression or anxiety. Objective Vital Signs?? Temperature: 98.2 DegF (10/02/23 19:22:00) Temperature Route: Oral (05/22/24 19:22:00) Pulse Rate: 74 bpm (10/02/23 19:22:00) Respiratory Rate: 18 br/min (10/02/23:22:00) Vented: No (10/02/23 15:09:00) Systolic Blood Pressure: 120 mm Hg (10/02/23:22:00) Diastolic Blood Pressure: 70 mm Hg (10/02/23:22:00) Blood pressure sites: Arm, left (10/02/23:22:00) Mean Arterial Pressure: 78 mm Hg (10/02/23 11:40:00) Pulse Pressure: 50 mm Hg (10/02/23:22:00) Oxygen Saturation: 98 % (10/02/23:22:00) Mode of Delivery (Oxygen): Room air (10/02/23:22:00) Vital Signs Comment: VITALS 10HCM 3DISCHARGE 3MED LIST 5 (10/02/23 11:40:00) Early Warning Score: 0 (10/02/23:23:23) ? Intake/Output? No Data Available ? Physical Exam Constitutional: Alert, in no distress. Mental Status: Oriented to person, place and time. Respiratory: Clear to auscultation. No wheezing, rales or rhonchi. Cardiovascular: S1 S2 regular. No murmurs, rubs or gallops. Gastrointestinal: Abdomen soft, non-tender, non-distended. Normal bowel sounds. No pulsatile mass. No hepatosplenomegaly. Genitourinary: No costovertebral angle tenderness. Neurologic: Moves all extremities spontaneously. Sensation intact bilaterally. Psychiatric: Normal mood and affect Skin: multiple purulent lesions of right gluteal + RLE region; Assessment/Plan This is a case of a 38-year-old male with a past medical history significant for left ICA stroke with residual right-sided spastic hemiparesis, dysarthria, thrombus of the cardiac apex on Eliquis, severe hidradenitis with local excision and I&D's who presents from their PCP office for multiple purulent lesions??requiring IV antibiotics.? Hidradenitis suppurativa ??(L73.2) Acute lesions leading to significant pain; Presenting with severe intractable pain in the right gluteal/right thigh secondary to hidradenitis suppurativa CT pelvis not rebealing any drainable abscess ?? Plan: - APS consultation - Continue Duloxetine 30mg QD - Continue Gabapentin 600mg TID - IV Dilaudid to 2mg q8h for severe breakthrough pain only - Tylenol 650mg q4h - Oxycodone to 30 mg q4hr. Plan to wean as clinically appropriate - can consider surgery consultation if non-improving or for punch debridement vs. intralesional triamcinolone ? Chronic Medical Conditions: History of CVA with residual deficit (I69.30): hx of left ICA CVA w/ residual right sided hemiparesis. c/w tizanidine as needed for spasm, does not appear to be on statin, rec outpt f/u with PCP Chronic pain syndrome (G89.4): continue with gabapentin Depression (F32.A): continue with duloxetine HTN (hypertension) (I10): Holding amlodipine for soft BPs GERD (gastroesophageal reflux disease) (K21.9): c/w PPI Iron deficiency anemia (D50.9): H/H stable Mural thrombus of heart (I51.3): continue with Eliquis Thrombocytosis (D75.839): hydroxyurea ?? Quality Measures: Code Status:??Full resuscitation Diet:??Regular DVT Prophylaxis:??Apixaban ?? Patient has been??seen and discussed with Dr. Dang ?? Dr. Chris Agarwal PGY2 Pager: [phone]?? Histories Past Medical History/Problem List Active Problems(19) [facility] Care Management, Dance Director Carmen Elizabeth [phone] Chronic ischemic left ICA stroke Chronic pain [...] wound solution)?See Instructions?Use 45mL daily Ferrous Sulfate (FeroSul 325 mg oral tablet)?1?tab(s)?325?Milligram?By Mouth?2 times a day Folic Acid (folic [...] 2 to 3 minutes until patient responds Pantoprazole (pantoprazole 40 mg oral delayed release tablet)?40?Milligram?By Mouth?Daily?for 30?Days Polyethylene Glycol 3350 (MiraLax oral powder for reconstitution)?17?gram?By Mouth?Daily?as needed?Constipation?for 30?Days Tizanidine (tiZANidine 2 mg oral tablet)?4?Milligram?2?tablet?By Mouth?Every 8 hours?as needed?as needed for muscle spasm Triamcinolone Topical (triamcinolone 0.1% topical cream)?1?boyd?Topically?2 times a day?*DO NOT APPLY TO OPEN WOUND(S)* ? Inpatient Medications Medications (10) Active SCHEDULED: (1) NaCl 0.9% Flush 3ml (NaCL 0.9% Flush) ??3 mL, IV Push, Every 8 hours CONTINUOUS: (0) PRN: (9) Acetaminophen 325 mg Tablet (Acetaminophen Tablet) ??650 mg, By Mouth, Every 4 hours Dextromethorphan-Guaifenesin 20 mg-200 mg/10 mL Liqu UD [...] IR Tablet (oxyCODONE 5 mg oral tablet) ??2.5 mg, By Mouth, Every 6 hours Polyethylene Glycol 17 Gm Powder (MiraLax Powder) ??17 Gm 1 pack/packet, By Mouth, Daily Senna Tablet ??8.6 mg 1 tablet, By Mouth, 2 times a day Simethicone 80 mg Chewable Tablet (Simethicone Tablet) ??80 mg, Chew, 3 times a day ? Results Recent Labs BLOOD COUNT & DIFF WBC 10.1 k/mm3 ()?? 10/02/2023 14:00 RBC 3.31 m/mm3 (Low)?? 10/02/2023 14:00 Hgb 8.1 Gm/dL (Low)?? 10/02/2023 14:00 Hct 27.4 % (Low)?? 10/02/2023 14:00 MCV 82.8 femtoliters ()?? 10/02/2023 14:00 MCH 24.5 pg (Low)?? 10/02/2023 14:00 MCHC 29.6 g/dL (Low)?? 10/02/2023 14:00 Platelet Count 744 k/mm3 (High)?? 10/02/2023 14:00 RDW-SD 59.7 femtoliters (High)?? 10/02/2023 14:00 MPV 8.4 femtoliters (Low)?? 10/02/2023 14:00 Nucleated RBC (Automated) 0.0 #/100 WBC'S ()?? 10/02/2023 14:00 Abs. NRBC 0.0 k/mm3 ()?? 10/02/2023 14:00 Abs. Neut 7.2 k/mm3 (High)?? 10/02/2023 14:00 Abs. Lymph 2.1 k/mm3 ()?? 10/02/2023 14:00 Abs. [place] 0.7 k/mm3 ()?? 10/02/2023 14:00 Abs. Eo 0.1 k/mm3 ()?? 10/02/2023 14:00 Abs. Baso 0.0 k/mm3 ()?? 10/02/2023 14:00 Neut % 71.2 % ()?? 10/02/2023 14:00 Lymph % 20.8 % ()?? 10/02/2023 14:00 [place] % 6.7 % ()?? 10/02/2023 14:00 Eos % 0.8 % ()?? 10/02/2023 14:00 Baso % 0.2 % ()?? 10/02/2023 14:00 Imm Gran 0.3 % ()?? 10/02/2023 14:00 Abs. Imm Gran 0.0 k/mm3 ()?? 10/02/2023 14:00 ?? CHEM GENERAL Sodium 139 mmol/L ()?? 10/02/2023 14:00 Potassium 4.6 mmol/L ()?? 10/02/2023 14:00 Chloride 101 mmol/L ()?? 10/02/2023 14:00 Bicarbonate Level 27 mmol/L ()?? 10/02/2023 14:00 Anion Gap 11 ()?? 10/02/2023 14:00 Glucose Level 84 mg/dL ()?? 10/02/2023 14:00 BUN 14 mg/dL ()?? 10/02/2023 14:00 Creatinine-Blood 0.89 mg/dL ()?? 10/02/2023 14:00 Estimated GFR Creatinine 113 ML/MIN/1.73 M2 ()?? 10/02/2023 14:00 Calcium 9.1 mg/dL ()?? 10/02/2023 14:00 Lactate 1.1 mmol/L ()?? 10/02/2023 14:00 ?? HEME OTHER Hold Blue Top SPECIMEN DISCARDED AFTER 4 HOURS. ()?? 10/02/2023 14:00 ?? URINE OTHER Est Creatinine Clearance 139.46 mL/min ()?? 10/02/2023 16:58 ? Hospital Progress note * Albertina Adams RN: PERFORM, SIGN, VERIFY, SIGN, MODIFY, SIGN, MODIFY Event Display: Progress Note Hospital Authored Date: Patient: DAIVD MCQUEEN Age: 38 years Sex: Male : 1985 Associated Diagnoses: None Author: Albertina Adams RN Findings Problem Related to Alteration in Comfort : Alteration in Comfort/new 10/04/2023 13:00 EDT Alteration in Comfort Related to Other: hidradentitis wounds on buttocks Goals & Outcomes: Comfort Pt will report [...] BH Goals/Interventions, Comfort Yes Comfort, Problem Start 10/03/2023 2:56 Reviewed plan with, Comfort Patient, Mother, Legal guardian, Family/caregiver not available Patient Progression, Comfort Pt progressing according to plan Comfort, Problem Ongoing Yes . Discharge Information Case Management Discharge Plan : Case Management Discharge Plan Data 10/04/2023 11:58 EDT Discharge Level of Care at Discharge Homehealth/VNA Discharge VNA/Hospice/Home Care [facility] [phone] Name of Agency #1 [facility] Mechanical Maintenance #1 Intake Service Categories #1 Home health aide, [facility] Service Comments #1 You are being discharged home with [facility], they will contact you after discharge to arrange a visit time. 09/29/2023 21:17 EDT Discharge Level of Care at Discharge Home/Nursing Home/Foster Care 09/29/2023 14:17 EDT Discharge Level of Care at Discharge Home/Nursing Home/Foster Care * Albertina Adams RN: PERFORM Event Display: Progress Note Hospital Authored Date: Patient is A+Ox4. vital signs within normal limits. Oral temp was 100 this afternoon. MD aware & notified. Patient refused rectal temp. Axillary temp was 98.1 when reassessed. MD aware & notified. lungs clear on RA. bowel sounds present in all 4 quadrants' patient denies chest pain or SOB at this time. patient complains of 10/10 pain in buttock. MD aware & notified. pain medications given per doctors orders. wound care completed per wound care orders. patient tolerating regular dietwell. patient in therapeutic bed at this time. safety measures maintained. bed alarm on. patient has weakness on right side at baseline. MD aware & notified. patient is incontinent of bowel &bladder at this time. repositioning done frequently. oral care done frequently. hourly rounds maintained. safety measures maintained. patient lay comfortable in bed with call mariee & personal belongings in reach. Patient needs met at this time. * Albertina Adams RN: PERFORM Event Display: Progress Note Hospital Authored Date: Patient discharged from [facility] safely via [facility]. report given to [facility]. patient signed discharge paperwork & education. IV access discontinued at this time. patient went home with all belongings'' & valuables'. Patient needs met at this time. * Lily Santamaria RN: SIGN, VERIFY, PERFORM Event Display: Progress Note Hospital Authored Date: Patient: DAVID MCQUEEN Age: 38 years Sex: Male : 1985 Associated Diagnoses: None Author: Lily Santamaria RN Findings Problem Related to Alteration in Comfort : Alteration in Comfort/new 10/03/2023 23:00 EDT Goals/Interventions, Comfort Yes . Evaluation Received pt on bed, A+ox4, not in respiratory distress and c/o pain. Medication as per [facility] with good effect. Gluteal dressing, intact. Awiating APS and wound consult. Bed at lowest position and locked. Call mariee within reach. Needs attended. . Discharge Information Case Management Discharge Plan : Case Management Discharge Plan Data 09/29/2023 21:17 EDT Discharge Level of Care at Discharge Home/Nursing Home/Foster Care 09/29/2023 14:17 EDT Discharge Level of Care at Discharge Home/Nursing Home/Foster Care * Fani PAGAN, Cat Lopez: PERFORM, MODIFY Event Display: Progress Note Hospital Authored Date: [id number] Patient: ??DAVID MCQUEEN ? Age:??38 Years?Sex:??Male?:??1985?? Subjective Patient seen and examined this morning Patient has low threshold for pain??and is asking for IV Dilaudid and oxycodone at the same time.??I explained to the patient that these cannot be??given together (given risk for overdose )and need to be spaced out He is anemic,??hemoglobin is??7.3 Platelet count elevated but stable???653 Awaiting wound care evaluation Awaiting pain management??evaluation Review of Systems Positive for pain??around right buttock, denies fevers or chills, chest pain shortness of breath abdominal pain nausea vomiting diarrhea Objective Vital Signs?? Temperature: 98.4 DegF (10/03/23 06:00:00) Temperature Route: Oral (10/03/23 00:00:00) Pulse Rate:??42 bpm??Low (10/03/23 06:00:00) Respiratory Rate: 18 br/min (10/03/23 12:05:00) Vented: No (10/02/23 15:09:00) Systolic Blood Pressure: 109 mm Hg (10/03/23 06:00:00) Diastolic Blood Pressure: 67 mm Hg (10/03/23 06:00:00) Blood pressure sites: Arm, left (10/03/23 06:00:00) Pulse Pressure: 42 mm Hg (10/03/23 06:00:00) Oxygen Saturation: 97 % (10/03/23 06:00:00) Mode of Delivery (Oxygen): Room air (10/03/23 06:00:00) Early Warning Score: 1 (10/03/23 12:58:27) ? Ventilator Settings?? No qualifying data available. ?? Intake/Output? 10/01 12:38 10/02 07:00 10/01 07:00 09/30 07:00 09/29 07:00 ?? 10/02 13:49 10/02 13:49 05/23 06:59 10/01 06:59 09/30 06:59 Intake ?360 ?360 ?0 ?0 ?0 Output ?400 ?300 ?100 ?0 ?0 Net Total ?-40 ? 60 ? -100 ?0 ?0 ? Urine Count ?0 ?0 ?0 ?0 ?0 ? Physical Exam Constitutional: Alert, in no distress. Mental Status: Oriented to person, place and time. Respiratory: Clear to auscultation. No wheezing, rales or rhonchi. Cardiovascular: S1 S2 regular. No murmurs, rubs or gallops. Gastrointestinal: Abdomen soft, non-tender, non-distended. Normal bowel sounds. No pulsatile mass. No hepatosplenomegaly. Genitourinary: No costovertebral angle tenderness. Neurologic: R sided weakness Psychiatric: Normal mood and affect Skin: right??buttock??with multiple areas of drainage, both bloody and purulent.?? Extremely painful to touch _ Inpatient Medications Medications (19) Active SCHEDULED: (10) Acetaminophen 325 mg Tablet (Acetaminophen Tablet) ??650 mg, By Mouth, Every 4 hours Apixaban 5 mg Tablet (Eliquis) ??5 mg, By Mouth, 2 times a day Ascorbic Acid 250 mg Tablet (ascorbic acid 250 mg oral tablet) ??500 mg, By Mouth, Daily Baclofen 10 mg Tablet (baclofen 10 mg oral tablet) ??20 mg, By Mouth, 4 times a day Duloxetine 30 mg Capsule (Duloxetine) ??30 mg, By Mouth, Daily Gabapentin 300 mg Capsule (gabapentin 300 mg oral capsule) ??600 mg, By Mouth, 3 times a day Hydroxyurea 500 mg Capsule (hydroxyurea 500 mg oral capsule) ??500 mg, By Mouth, Daily NaCl 0.9% Flush 3ml (NaCL 0.9% Flush) ??3 mL, IV Push, Every 8 hours OxyCODONE 5 mg IR Tablet (oxyCODONE 5 mg oral tablet) ??30 mg, By Mouth, Every 4 hours Pantoprazole 40 mg EC Tablet (pantoprazole 40 mg oral delayed release tablet) ??40 mg, By Mouth, Daily CONTINUOUS: (0) PRN: (9) Dextromethorphan-Guaifenesin 20 mg-200 mg/10 mL Liqu UD (Robitussin DM Liquid) ??10 mL, By Mouth, Every 4 hours Docusate Sodium 100 mg Capsule (Docusate Sodium Capsule) ??100 mg 1 capsule, By Mouth, 2 times a day HYDROmorphone 2 mg/mL Inj Syringe (Dilaudid Inj) ??2 mg 1 mL, IV Push Slowly, Every 4 hours Melatonin 3 mg Tablet (Melatonin Tablet) ??3 mg, By Mouth, Daily at bedtime NaCl 0.9% Flush 3ml (NaCL 0.9% Flush) ??3 mL, IV Push, Every 8 hours Polyethylene Glycol 17 Gm Powder (MiraLax Powder) ??17 Gm 1 pack/packet, By Mouth, Daily Senna Tablet ??8.6 mg 1 tablet, By Mouth, 2 times a day Simethicone 80 mg Chewable Tablet (Simethicone Tablet) ??80 mg, Chew, 3 times a day Tizanidine 4 mg Tablet (tiZANidine 4 mg oral tablet) ??4 mg, By Mouth, Every 8 hours ? Results Recent Labs BLOOD COUNT & DIFF WBC 6.0 k/mm3 ()?? 10/03/2023 07:04 RBC 3.00 m/mm3 (Low)?? 10/03/2023 07:04 Hgb 7.3 Gm/dL (Low)?? 10/03/2023 07:04 Hct 25.1 % (Low)?? 10/03/2023 07:04 MCV 83.7 femtoliters ()?? 10/03/2023 07:04 MCH 24.3 pg (Low)?? 10/03/2023 07:04 MCHC 29.1 g/dL (Low)?? 10/03/2023 07:04 Platelet Count 653 k/mm3 (High)?? 10/03/2023 07:04 RDW-SD 59.3 femtoliters (High)?? 10/03/2023 07:04 MPV 8.5 femtoliters (Low)?? 10/03/2023 07:04 Nucleated RBC (Automated) 0.0 #/100 WBC'S ()?? 10/03/2023 07:04 Abs. NRBC 0.0 k/mm3 ()?? 10/03/2023 07:04 Abs. Neut 7.2 k/mm3 (High)?? 10/02/2023 14:00 Abs. Lymph 2.1 k/mm3 ()?? 10/02/2023 14:00 Abs. [place] 0.7 k/mm3 ()?? 10/02/2023 14:00 Abs. Eo 0.1 k/mm3 ()?? 10/02/2023 14:00 Abs. Baso 0.0 k/mm3 ()?? 10/02/2023 14:00 Neut % 71.2 % ()?? 10/02/2023 14:00 Lymph % 20.8 % ()?? 10/02/2023 14:00 [place] % 6.7 % ()?? 10/02/2023 14:00 Eos % 0.8 % ()?? 10/02/2023 14:00 Baso % 0.2 % ()?? 10/02/2023 14:00 Imm Gran 0.3 % ()?? 10/02/2023 14:00 Abs. Imm Gran 0.0 k/mm3 ()?? 10/02/2023 14:00 ?? CHEM GENERAL Sodium 136 mmol/L ()?? 10/03/2023 07:04 Potassium 4.2 mmol/L ()?? 10/03/2023 07:04 Chloride 101 mmol/L ()?? 10/03/2023 07:04 Bicarbonate Level 27 mmol/L ()?? 10/03/2023 07:04 Anion Gap 8 ()?? 10/03/2023 07:04 Glucose Level 86 mg/dL ()?? 10/03/2023 07:04 BUN 18 mg/dL ()?? 10/03/2023 07:04 Creatinine-Blood 0.80 mg/dL ()?? 10/03/2023 07:04 Estimated GFR Creatinine 117 ML/MIN/1.73 M2 ()?? 10/03/2023 07:04 Calcium 8.7 mg/dL ()?? 10/03/2023 07:04 Magnesium 2.1 mg/dL ()?? 10/03/2023 07:04 Protein, Total 6.8 Gm/dL ()?? 10/03/2023 07:04 Albumin 3.0 Gm/dL (Low)?? 10/03/2023 07:04 AG Ratio 0.8 ()?? 10/03/2023 07:04 Alkaline Phosphatase 120 units/L ()?? 10/03/2023 07:04 AST (SGOT) 6 units/L ()?? 10/03/2023 07:04 ALT (SGPT) <5 units/L ()?? 10/03/2023 07:04 Bilirubin, Total 0.2 mg/dL ()?? 10/03/2023 07:04 Lactate 1.1 mmol/L ()?? 10/02/2023 14:00 ?? HEME OTHER Hold Blue Top SPECIMEN DISCARDED AFTER 4 HOURS. ()?? 10/02/2023 14:00 ?? URINE OTHER Est Creatinine Clearance 155.15 mL/min ()?? 10/03/2023 08:42 ? Urinalysis Est Creatinine Clearance: 155.15 mL/min (08:42) Est Creatinine Clearance: 139.46 mL/min (16:58) ? Uric/LDH?? No qualifying data available. ? Assessment/Plan This is a case of a 38-year-old male with a past medical history significant for left ICA stroke with residual right-sided spastic hemiparesis, dysarthria, thrombus of the cardiac apex on Eliquis, severe hidradenitis with local excision and I&D's who presents from their PCP office for multiple purulent lesions??requiring IV antibiotics.? Hidradenitis suppurativa ??(L73.2) Acute lesions leading to significant pain; Presenting with severe intractable pain in the right gluteal/right thigh secondary to hidradenitis suppurativa CT pelvis not rebealing any drainable abscess. ??He is afebrile, no leukocytosis, no signs of sepsis, no antibiotics ordered currently ?? Plan: - APS consultation - Continue Duloxetine 30mg QD - Continue Gabapentin 600mg TID - IV Dilaudid to 2mg q8h for severe breakthrough pain only - Tylenol 650mg q4h - Oxycodone to 30 mg q4hr. Plan to wean as clinically appropriate -Patient was seen by surgery recently during prior admission and no surgical??intervention was recommended.?? On CAT scan, there is no drainable abscess??hence, will hold off on surgical evaluation. ??Wound care??consult has been ordered. -I requested infectious disease eval??to see if patient would benefit from??oral doxycycline/clindamycin??for extended period Of time ? Chronic Medical Conditions: History of CVA with residual deficit (I69.30): hx of left ICA CVA w/ residual right sided hemiparesis. c/w tizanidine as needed for spasm, as well as scheduled baclofen. ??Does not appear to be on statin, rec outpt f/u with PCP Chronic pain syndrome (G89.4): continue with gabapentin Depression (F32.A): continue with duloxetine HTN (hypertension) (I10): Holding amlodipine for soft BPs GERD (gastroesophageal reflux disease) (K21.9): c/w PPI Iron deficiency anemia (D50.9): H/H stable??although low. ??Continue with daily monitoring,??type and screen ordered for??tomorrow. ??Add on anemia profile Mural thrombus of heart (I51.3): continue with Eliquis Thrombocytosis (D75.839): hydroxyurea ?? Quality Measures: Code Status:??Full resuscitation Diet:??Regular DVT Prophylaxis:??Apixaban ?Addendum???3:10 PM ?? I reached out to pain management, they are recommending giving the oxycodone and the Dilaudid as ordered.?? Since they are both every 4, will use them alternatively.?? If patient has persistent pain despite current regimen, pain management will do a formal consultation for him tomorrow Consult note * Wendy LUTZ, Mari Dubose: PERFORM Event Display: Consultation Note Authored Date: [id number] Patient: ??DAVID MCQUEEN ? Age:??38 Years?Sex:??Male?:??1985?? Reason for Consultation Addiction Med Consult - ?OUD, pain mgmt Requested by??Dr Mohr History of Present Illness David Mcqueen is??a 38 yo male with a PMHx??of??left ICA stroke with residual right sidede spastichemiparesis and dysarthria, mural thrombus of cardiac apex on Eliquis, iron deficiency anemia, depression, HTN, chronic pain, severe hidradenitis??suppurativa - s/p left??buttock hidradenitis excision at [facility] 03/04 following w/ plastic and derm. ?? He??was admitted 10/01??from his PCP office for??worsening purulent lesions likely requiring IV abx treatment. Pt with multiple admissions in the past for the same issue.??Addiction service??met with pt??back in June to??assess for possible OUD. Pt??did??not endorse anything at that time.??This admission,??pts mother reported that pt had used a??3 day script??for oxycodone in the course of just one day. Pt denying to team here. Addiction consulted to see pt again. ?? Met with pt this morning. Pt awake, alert, easily engaged in interview. Pt not endorsing any misuse of any opioids recently, taking prescriptions as prescribed. No changes in his use of opioid medication from when he was last assessed in June per his report. He has not been using opioids for anything other than pain control, not for when he is upset or stressed. He has not been seeking additional opioids from friends or illicit avenues, and has not used anything other than what is prescribed to him. He does not feel he has been using opioids inappropriately in any way, or that him being on opioidschronically has been??a problem for him. Did offer pt therapy services (not specific to addiction, just generalized), however pt declined. He has tried suboxone in??the past for pain control and it was not helpful for him so he has no interest in this. Pt does smoke 5 cigarettes a day. He uses marijuana on a daily basis as well. Otherwise does not endorse use of heroin/fentanyl, illicitly obtained pills, cocaine or other stimulants, ETOH, etc. Review of Systems Buttock pain Physical Exam Vitals & Measurements T:??98.2?F?? TMIN:??97.8?F?? TMAX:??98.6?F?? HR:??58??(Peripheral)?? RR:??18?? BP:??103/40?? SpO2:??100%?? General:??well developed, well nourished,??appears to be stated age.??Breathing is??even and unlabored.??In no acute distress,??no diaphoresis. Mental Status Exam: Appearance:??casual?? Attitude:??cooperative? Eye contact:??normal Motor activity:??calm, no aberrant movements? Mood:??euthymic? Affect:??congruent? Speech:??fluent, unimpaired? Judgment:??appears intact? Insight:??appears intact? Thought process:??linear? Reliability:??uncertain? Delusions or hallucinations:??denies Fund of knowledge:??intact Assessment/Plan Hidradenitis suppurativa (L73.2):??. Chronic pain syndrome (G89.4):??. Depression (F32.A):??. Chronic, continuous use of opioids (F11.90):??. Pt not self-reporting any concerning behaviors, but also some possible discrepancies??with history given that mother reported misuse of recent prescription. Due to patients chronic pain issues, and history of depression, he is overall at higher risk to develop OUD. If he is misusing opioids at all, does not appear to be something he is ready to address, unfortunately. ?? If in the future pt is reporting use habits concerning for OUD, and is willing to discuss and pursue interventions, please reach out then. ?? Did offer pt a referral for general therapy services, however pt declined. Suboxone can be useful for chronic pain, but pt reports this has been ineffective for him. At this time we are not aware of any community prescribers that offer methadone for chronic pain, and this would not be something we initiate unless it was for OUD treatment. ?? - Would??continue with scheduled tylenol, if possible could consider addition of scheduled motrin as well. - Would continue to titrate gabapentin upwards to see if increased dosing might be helpful. - If pt has been on Cymbalta 30mg for at least 1 week, could consider increasing dose to 60mg and see if this may eventually help with pain levels as well. ?? While pt is inpatient, primary team can feel free to address pain with PRN opioids. We typically only recommend to provide a few days worth of 5-10mg oxycodone upon d/c. If pt lives with others such as family, might be helpful to have family dispense medication to him so that it is monitored. ?? Recent PCP noted that palliative input may be helpful. Given that this patient has had ongoing issues with pain and pain control, pt should have close follow up with PCP, and if requires ongoing opioid prescriptions, he may need to enter into a controlled substances contract with the office if he does not have one already. Pt should follow up on the pain referral that was placed by his PCP office as well, and get an appton the books if that has not been set already.? Sent update via??Alana to Dr Mohr. Addiction??Service will sign off at this time. Thank you for allowing us to participate in the careof this patient. Please contact me with any questions or concerns. 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 Carmen Elizabeth [phone] Chronic ischemic left ICA stroke Chronic pain Controlled substance agreement signed 10/16/22 Depression GERD (gastroesophageal reflux disease) Hidradenitis suppurativa History of ischemic stroke Hypertension PATY (iron deficiency anemia) Insomnia Iron deficiency anemia Mural thrombus of cardiac apex Peripheral neuropathy Right spastic hemiparesis Spasticity Therapeutic drug monitoring Tobacco dependence Wound of buttock Procedure/Surgical History ???Operative procedure on hip (2000) Medications Inpatient Acetaminophen Tablet, 650 mg, By Mouth, Every 4 hours ascorbic acid 250 mg oral tablet, 500 mg, By Mouth, Daily baclofen 10 mg oral tablet, 20 mg, By Mouth, 4 times a day Dilaudid Inj, 2 mg= 1 mL, IV Push Slowly, Every 4 hours, PRN Docusate Sodium Capsule, 100 mg= 1 capsule, By Mouth, 2 times a day, PRN Duloxetine, 30 mg, By Mouth, Daily Eliquis, 5 mg, By Mouth, 2 times a day gabapentin 300 mg oral capsule, 600 mg, By Mouth, 3 times a day hydroxyurea 500 mg oral capsule, 500 mg, By Mouth, Daily Melatonin Tablet, 3 mg, By Mouth, Daily at bedtime, PRN MiraLax Powder, 17 Gm= 1 pack/packet, By Mouth, Daily, PRN NaCL 0.9% Flush, 3 mL, IV Push, Every 8 hours NaCL 0.9% Flush, 3 mL, IV Push, Every 8 hours, PRN Narcan Inj, 0.4 mg= 1 mL, IV Push Slowly, Once, PRN oxyCODONE 5 mg oral tablet, 30 mg, By Mouth, Every 4 hours pantoprazole 40 mg oral delayed release tablet, 40 mg, By Mouth, Daily Robitussin DM Liquid, 10 mL, By Mouth, Every 4 hours, PRN Senna Tablet, 8.6 mg= 1 tablet, By Mouth, 2 times a day, PRN Simethicone Tablet, 80 mg, Chew, 3 times a day, PRN tiZANidine 4 mg oral tablet, 4 mg, By Mouth, Every 8 hours, PRN Home amLODIPine 5 mg oral tablet, 5 mg= 1 tablet, By Mouth, Daily ascorbic acid 500 mg oral tablet, 500 mg= 1 tablet, By Mouth, Daily baclofen 20 mg oral tablet, 20 mg= 1 tablet, By Mouth, 4 times a day, 5 refills docusate sodium 100 mg oral capsule, 1 capsule, By Mouth, 2 times a day duloxetine 30 mg oral enteric coated capsule, 30 mg= 1 capsule, By Mouth, Daily, 6 refills Eliquis 5 mg oral tablet, 5 mg= 1 tablet, By Mouth, 2 times a day FeroSul 325 mg oral tablet, 325 mg= 1 tablet, By Mouth, 2 times a day folic acid 1 mg oral tablet, 1 mg= 1 tablet, By Mouth, Daily gabapentin 600 mg oral tablet, 600 mg= 1 tablet, By Mouth, 3 times a day, 11 refills hydroxyurea 500 mg oral capsule, 500 mg, By Mouth, Daily, 2 refills MiraLax oral powder for reconstitution, 17 Gm, By Mouth, Daily, PRN Narcan 4 mg/0.1 mL nasal spray, 4 mg= 1 sprays, Nares, Both, Once pantoprazole 40 mg oral delayed release tablet, 40 mg, By Mouth, Daily tiZANidine 2 mg oral tablet, 4 mg= 2 tablet, By Mouth, Every 8 hours, PRN, 11 refills triamcinolone 0.1% topical cream, 1 application, Topically, 2 times a day Vashe wound solution, See Instructions, 11 refills Vitamin D3 1000 intl units oral tablet, 25 mcg= 1 tablet, By Mouth, Daily Allergies NKA Social History Alcohol Use: Current. Other: 10 drinks per week. Electronic Cigarette/Vaping Electronic Cigarette Use: Never. Substance Abuse Use: Current. Type: Marijuana. Tobacco Use: 5-9 cigarettes (between 1/4 to 1/2 pack)/day in last 30 days. Family History Asthma: Mother and Brother. Immunizations Vaccine Date Status influenza virus vaccine, inactivated - Not Given Comments : Parent Or Guardian Refuses influenza virus vaccine, inactivated 05/18/2022 Given tetanus/diphtheria/pertussis, acel(Tdap) 09/13/2019 Recorded * Frankie PAGAN, Willis Terrell: PERFORM, SIGN, VERIFY Event Display: Consultation Note Authored Date: [id number] Patient: DAVID MCQUEEN Age: 38 years Sex: Male : 1985 Associated Diagnoses: None Author: Frankie PAGAN, Willis Terrell Visit Information Patient is a 38 YOM admitted on 10/02/23 for right buttok pain 2/2 hidradenitis History of Present Illness 38yo M with PMH of ICA stroke with right sided spastic hemiparesis, dysarthria, mural thrombus of cardiac apex on Eliquis, and severe hidradenitis of the right gluteal with local excision and I&D's who presents from their PCP office for multiple purulent lesions requiring IV antibiotics. APS consulted for pain control. Per patient, he was prescribed Oxycodone 30mg q4h has been providing him with good pain control. But unfortunately he states his PCP is only able to prescribe him q6h. Pt currently taking Gabapentin 600mg TID, Duloxetine 30mg QD, Tylenol 650mg q4h, and IV Dilaudid 2mg q4h. He states that his pain is currently at a 10/10 and decreases to a 7/10 with the Oxycodone and dilaudid. Pt states his pain is mostly in his gluteal region. Of note, I spoke with his mother and she stated that patient was prescribed 3 days worth of oxycodone but ended up consuming it in 1 day. She voiced concerns of addiction. Past Medical History Procedure/Surgical Profile Operative procedure on hip (4159441559) in 2000 at 15 Years. Problem list [facility] Carmen Elizabeth [phone] / SNOMED CT 386647595 / Confirmed Chronic ischemic left ICA stroke / SNOMED CT 7547629338 / Confirmed Chronic pain / SNOMED CT 209648117 / Confirmed Controlled substance agreement signed 10/16/22 / SNOMED CT 863489443 / Confirmed Depression / SNOMED CT 46893432 / Confirmed GERD (gastroesophageal reflux disease) / SNOMED CT 886856212 / Confirmed Hidradenitis suppurativa / SNOMED CT 21277880 / Confirmed History of ischemic stroke / SNOMED CT 3605717927 / Confirmed Hypertension / SNOMED CT 0992555073 / Confirmed PATY (iron deficiency anemia) / SNOMED CT 455863752 / Confirmed Insomnia / SNOMED CT 325963174 / Confirmed Iron deficiency anemia / SNOMED CT 062314767 / Confirmed Mural thrombus of cardiac apex / SNOMED CT 640731439 / Confirmed Peripheral neuropathy / SNOMED CT 670800690 / Confirmed Right spastic hemiparesis / SNOMED CT 024799418 / Confirmed Spasticity / SNOMED CT 202620800 / Confirmed Therapeutic drug monitoring / SNOMED CT 089648180 / Confirmed Tobacco dependence / SNOMED CT 4284001451 / Confirmed Wound of buttock / SNOMED CT 88827398 / Confirmed Resolved: Acute left ICA ischemic stroke / SNOMED CT 3184348583 Allergies Allergic Reactions (Selected) NKA MEDICATION LIST (Selected) Inpatient Medications Ordered Acetaminophen Tablet: 650 mg, Tablet, By Mouth, Every 4 hours, Temperature Greater than 100.5, Routine, 10/02/23 22:00:00 EDT Dilaudid Inj: 2 mg, Injection, IV Push Slowly, Every 4 hours, PRN for Pain , Severe, Routine, 10/02/23 21:27:00 EDT Docusate Sodium Capsule: 100 mg, Capsule, By Mouth, 2 times a day, PRN for Constipation, Routine, 10/02/23 18:04:00 EDT Duloxetine: 30 mg, Capsule, By Mouth, Daily, Routine, 10/03/23 9:00:00 EDT Eliquis: 5 mg, Tablet, By Mouth, 2 times a day, Routine, 10/02/23 21:23:00 EDT Melatonin Tablet: 3 mg, Tablet, By Mouth, Daily at bedtime, PRN for Insomnia, Routine, 10/02/23 18:04:00 EDT MiraLax Powder: 17 Gm, Powder, By Mouth, Daily for 14 days, Dissolve in 8 ounces of water., PRN forConstipation, Routine, 10/02/23 18:04:00 EDT, Stop date 10/16/23 18:03:00 EDT NaCL 0.9% Flush: 3 mL, Injection, IV Push, Every 8 hours, PRN for Line/Tube Patency, Routine, 10/02/23 18:04:00 EDT NaCL 0.9% Flush: 3 mL, Injection, IV Push, Every 8 hours, Routine, 10/02/23 19:00:00 EDT Narcan Inj: 0.4 mg, Injection, IV Push Slowly, Once, PRN for Other, To be used for signs or symptoms of opioid overdose. Contact MD immediately, Routine, 10/03/23 16:03:00 EDT Robitussin DM Liquid: 10 mL, Syrup, By Mouth, Every 4 hours, PRN for Cough, Routine, 10/02/23 18:04:00 EDT Senna Tablet: 1 tablet, Tablet, By Mouth, 2 times a day, PRN for Constipation, Routine, 10/02/23 18:04:00 EDT Simethicone Tablet: 80 mg, Chew Tablet, Chew, 3 times a day, PRN for Gas, Routine, 10/02/23 18:04:00 EDT ascorbic acid 250 mg oral tablet: 500 mg, Tablet, By Mouth, Daily, Routine, 10/03/23 9:00:00 EDT baclofen 10 mg oral tablet: 20 mg, Tablet, By Mouth, 4 times a day, Routine, 10/03/23 9:00:00 EDT gabapentin 300 mg oral capsule: 600 mg, Capsule, By Mouth, 3 times a day, Routine, 10/03/23 22:00:00 EDT hydroxyurea 500 mg oral capsule: 500 mg, Capsule, By Mouth, Daily, Routine, 10/03/23 9:00:00 EDT oxyCODONE 5 mg oral tablet: 30 mg, Tablet, By Mouth, Every 4 hours, Routine, 10/02/23 22:00:00 EDT pantoprazole 40 mg oral delayed release tablet: 40 mg, EC Tablet, By Mouth, Daily, Indicated for: Continuation from Home, Routine, 10/03/23 9:00:00 EDT tiZANidine 4 mg oral tablet: 4 mg, Tablet, By Mouth, Every 8 hours, PRN for Other, Muscle spasm, Routine, 10/02/23 21:24:00 EDT Prescriptions Prescribed MiraLax oral powder for reconstitution: = 17 Gm, By Mouth, Daily, PRN Constipation, for 30 days, # 30 each, 0 Refills, Acute 10/06/23 12:41:00 EDT, 09/06/23 12:41:00 EDT, REC Powder, [facility]/pharmacy #[id number], Partial fill upon patient request if the prescription is for a schedule II opioid drug.,... Narcan 4 mg/0.1 mL nasal spray: 1 sprays = 4 mg, Nares, Both, Once, To be used use one spray in one nostril. if an additional dose is needed, alternate nostril. may repeat every 2 to 3 minutes until patient responds, # 2 each, 0 Refills, Soft Stop, 08/23/23 15:54:00 EDT, [facility]... Vashe wound solution: Vashe wound solution, See Instructions, # 1 each, Refills 11, Tot. Refills 11, Maintenance, Use 45mL daily, 08/12/23 14:10:00 EDT, Supply, 182, cm, 07/26/23 9:16:00 EDT, Height,89, kg, 07/03/23 11:22:00 EST, Dry Weight Vitamin D3 1000 intl units oral tablet: 1 tablet = 25 mcg, By Mouth, Daily, # 30 tablet, 0 Refills,Maintenance, 07/16/23 10:05:00 EST, [facility] Partial fill upon patient request if the prescription is for a schedule II opioid drug., 182, cm, 07/04/23 14:56:00 EST,... amLODIPine 5 mg oral tablet: 5 mg, 1, tablet, By Mouth, Daily, # 30 tablet, Refills 0, Tot. Refills0, Maintenance, 06/17/23 8:53:00 EST, Route to Pharmacy Electronically, [facility], Partial fill upon patient request if the prescription is for a schedule II opioid... ascorbic acid 500 mg oral tablet: 1 tablet = 500 mg, By Mouth, Daily, # 30 tablet, 0 Refills, Maintenance, 09/06/23 12:42:00 EDT, Tablet, [id number] Partial fill upon patient request if the prescription is for a schedule II opioid drug., 193, cm, 09/05/23 19:48:00 EDT, Height... baclofen 20 mg oral tablet: 20 mg, 1, tablet, By Mouth, 4 times a day, # 120 tablet, Refills 5, Tot. Refills 5, Maintenance, 08/06/23 9:00:00 EDT, Route to Pharmacy Electronically, [facility]/pharmacy #[id number], 182, cm, 07/26/23 9:16:00 EDT, Height, 89, kg, 07/03/23 11:22:00 EST, Dry Weight... docusate sodium 100 mg oral capsule: 1 capsule, By Mouth, 2 times a day, # 60 capsule, 11 Refills, Maintenance, 09/03/23 17:44:00 EDT, [facility] STORE [id number], 193, cm, 09/03/23 14:09:00 EDT, Height, 91.4, kg, 08/30/23 12:03:00 EDT, Dry Weight duloxetine 30 mg oral enteric coated capsule: 1 capsule = 30 mg, By Mouth, Daily, TAKE 1 CAPSULE BYMOUTH EVERY DAY, # 30 capsule, 6 Refills, Maintenance, 09/03/23 17:47:00 EDT, Capsule, [facility]/pharmacy#[id number], Partial fill upon patient request if the prescription is for a schedule II opioid drug., 1... gabapentin 600 mg oral tablet: 1 tablet = 600 mg, By Mouth, 3 times a day, # 90 tablet, 11 Refills,Maintenance, 08/12/23 13:51:00 EDT, Tablet, [facility]/pharmacy #[id number], Partial fill upon patient request if the prescription is for a schedule II opioid drug., 182, cm, 07/26/23 9:16:00 EDT... hydroxyurea 500 mg oral capsule: = 500 mg, By Mouth, Daily, for 30 days, # 30 capsule, 2 Refills, Acute 10/18/23 14:36:00 EDT, 07/20/23 14:36:00 EST, Capsule, [facility]/pharmacy #[id number], Partial fill upon patient request if the prescription is for a schedule II opioid drug., 182, cm, ... pantoprazole 40 mg oral delayed release tablet: = 40 mg, By Mouth, Daily, # 30 tablet, 0 Refills, Maintenance, 09/16/23 19:09:00 EDT, EC Tablet, 193, cm, 09/16/23 18:47:00 EDT, Height, 91.4, kg, 08/30/23 12:03:00 EDT, Dry Weight tiZANidine 2 mg oral tablet: 4 mg, 2, tablet, By Mouth, Every 8 hours, PRN, # 180 tablet, Refills 11, Tot. Refills 11, Maintenance, as needed for muscle spasm, 08/12/23 13:51:00 EDT, Route to Pharmacy Electronically, [facility]/pharmacy #[id number], Partial fill upon patient request if the pr... Documented Medications Documented Eliquis 5 mg oral tablet: 1 tablet = 5 mg, By Mouth, 2 times a day, Maintenance, 09/21/23 10:38:00 EDT, Partial fill upon patient request if the prescription is for a schedule II opioid drug. FeroSul 325 mg oral tablet: 1 tablet = 325 mg, By Mouth, 2 times a day, Maintenance, 09/21/23 10:40:00 EDT, Partial fill upon patient request if the prescription is for a schedule II opioid drug. folic acid 1 mg oral tablet: 1 mg, 1, tablet, By Mouth, Daily, Maintenance, 09/21/23 10:41:00 EDT, Partial fill upon patient request if the prescription is for a schedule II opioid drug. triamcinolone 0.1% topical cream: 1 application, Topically, 2 times a day, *DO NOT APPLY TO OPEN WOUND(S)*, Maintenance, 09/21/23 10:42:00 EDT, Partial fill upon patient request if the prescription is for a schedule II opioid drug. Family History Alcohol use Drinks rarely. Tobacco exposure Drug Use Type. Family/Social Marital status. Social support system. Physical Examination General Exam HEENT Normal. Respiratory Normal. Cardiovascular Normal. Abdominal Normal. Pain Assessment The Quality is sharp and throbbing. The severity is severe and 10 / 10 on the severity scale. Exacerbating factors: movement, palpation. Relieving factors: medication. Pain interventions: medication. Effects of pain: on daily life, on sleep. Results Review Results Today's Results : ALL RESULT SECTIONS Vital SignsTemperature : Temperature 10/04/2023 12:00 EDT Temperature 100.0 DegF Pulse Rate : Pulse Rate 10/04/2023 12:00 EDT Pulse Rate 70 bpm Respiratory Rate : Respiratory Rate 10/04/2023 12:31 EDT Respiratory Rate 15 br/min L SBP/DBP Cuff : SBP/DBP Cuff 10/04/2023 12:00 EDT Systolic Blood Pressure 114 mm Hg O2 Sat : Oxygen Saturation 10/04/2023 12:00 EDT Oxygen Saturation 99 % Impression and Plan 38yo M with PMH of ICA stroke with right sided spastic hemiparesis, dysarthria, mural thrombus of cardiac apex on Eliquis, and severe hidradenitis of the right gluteal with local excision and I&D's who presents from their PCP office for multiple purulent lesions requiring IV antibiotics. APS consulted for pain control. Per patient, Oxycodone 30mg q4h has been providing him with good pain control. But unfortunately he states his PCP is only able to prescribe him q6h. Pt currently taking Gabapentin 600mg TID, Duloxetine 30mg QD, Tylenol 650mg q4h, Oxycodone 30mg q4h and IV Dilaudid 2mg q4h.He states that his pain is currently at a 10/10 and decreases to a 7/10 with the Oxycodone and dilaudid. Pt states his pain is mostly in his gluteal region. Of note, I spoke with his mother and she stated that patient was prescribed 3 days worth of oxycodone but ended up consuming it in 1 day. She voiced concerns of addiction. Recommendations: -Consider addiction medicine consult -Would not recommend further up titration of opioids -Continue Gabapentin 600mg TID, Duloxetine 30mg QD, Tylenol 650mg q4h, Oxycodone 30mg q4h -Consider discontinuing Dilaudid in preparation for discharge -APS to sign off Discussed with Dr Garcia * Ric Nelson MD: VERIFY, PERFORM, SIGN Event Display: Consultation Note Authored Date: [id number] Patient: DAVID MCQUEEN Age: 38 years Sex: Male : 1985 Associated Diagnoses: None Author: Ric Nelson MD INFECTIOUS DISEASES CONSULTATION NOTE Requesting Attending/Provider: Dr. Mohr Reason for Consult: Hidradenitis suppurativa Source of Information: CIS, patient History of Present Illness ([id number]: HPI ???4): This is a 40-year-old man with above-mentioned problems and comorbidities. Patient being consulted because of hidradenitis suppurativa. Would appear that the patient has been admitted on several occasions over the past few months due to increased pains over this area. He presents now with multiple draining sinuses reports of significantly increased pain. Patient admitted for evaluation by pain management. He refers that the discharge has been more or less stable over the past month or so but the pain has been significantly increased. Beyond this he offers no other complaints. Past Medical and Surgical History: Patient with left ICA stroke with residual right-sided hemiparesis and some dysarthria. Also noted with thrombus in the cardiac apex on anticoagulation. Has been noted with hypertension and dyslipidemia as well as iron deficiency anemia and GERD. Left hip fracture s/p repair in terms of his Hidradenitis suppurativa the patient has been debrided on multiple occasions and has received multiple antibiotic courses with minimal improvement. Recently underwent plastic surgery extension on February 2023 at [facility]. Seems a previously followed with dermatology at [facility] but has not seen them in some time due to insurance issues. Does have chronic pain syndrome because of this. Also has history of pilonidal cyst removed in 02/08/2023. Did recently complete a 14-day course of Zosyn and vancomycin back in July, transition to Augmentin and doxycycline once discharged Recent Antimicrobials: -Presently on no antibiotic therapy Medications: Reviewed Antimicrobial Allergies: No known antimicrobial allergies. Family History: No history of recurrent or chronic infected diseases in the family Social History: Smokes about half a pack of cigarettes per day, no heavy alcohol or substance use, lives with his mom who is his primary caregiver Review of Systems Denies any fever, chills, visual disturbance, oral problems, hearing issues, chest pain, palpitations, shortness of breath, nausea, vomiting, diarrhea, problems with urination, decreased sensation orstrength in any extremities, easy bruising or swollen lymph nodes, joint pains, muscle aches, or any changes in weight or sensation of temperature. Right buttock wounds with associated significant pain as noted above Physical Examination (19776: 2-7 organ systems or comprehensive single system exam; 28022/42510: 8 organ systems or comprehensive single system exam) .VitalsTemperature 98.4 (06:55) Systolic Blood Pressure 109 (06:55) Diastolic Blood Pressure 67 (06:55) Pulse 42 (06:55) SpO2 97 (06:55) Respiratory Rate 18 (12:58) GENERAL: In no acute distress HEENT: Anicteric, no subconjunctival petechiae, moist oral mucosa without lesions or thrush NECK: Neck supple, without cervical lymphadenopathy CARDIOVASCULAR: Not able to appreciate any murmurs, rubs, or gallops RESPIRATORY: Lungs clear to auscultation GASTROINTESTINAL: Non-distended, normoactive bowel sounds, non-tender GENITOURINARY: No CVAT MUSCULOSKELETAL: Without joint effusions, no tenderness over spine SKIN: No diffuse rash present, no stigmata of infective endocarditis. Evaluation of the right buttock area shows several draining sinuses, at the very least 6. Some of them appear fairly deep, but full examination could not be done since the patient was or sore over this area. Significant. To palpation throughout the entire area and seems to involve the distal posterior thigh. No concerning induration and no peculiar order NEUROLOGICAL/PSYCH: A&Ox3, left-sided hemiparesis and significant dysarthria Results Review General results All Labs : LABORATORY 10/03/2023 7:04 EDT WBC 6.0 k/mm3 RBC 3.00 m/mm3 L Hgb 7.3 Gm/dL L Hct 25.1 % L MCV 83.7 femtoliters MCH 24.3 pg L MCHC 29.1 g/dL L Platelet Count 653 k/mm3 H Sodium 136 mmol/L Potassium 4.2 mmol/L Chloride 101 mmol/L Bicarbonate Level 27 mmol/L Anion Gap 8 Glucose Level 86 mg/dL BUN 18 mg/dL Creatinine-Blood 0.80 mg/dL AST (SGOT) 6 units/L ALT (SGPT) <5 units/L Bilirubin, Total 0.2 mg/dL 10/02/2023 14:00 EDT WBC 10.1 k/mm3 Neut % 71.2 % Lymph % 20.8 % [place] % 6.7 % Eos % 0.8 % Baso % 0.2 % Imm Gran 0.3 % Abs. Imm Gran 0.0 k/mm3 Creatinine-Blood 0.89 mg/dL Lactate 1.1 mmol/L 09/29/2023 11:53 EDT WBC 8.8 k/mm3 Creatinine-Blood 0.78 mg/dL 09/21/2023 5:10 EDT WBC 8.3 k/mm3 09/05/2023 1:04 EDT WBC 6.2 k/mm3 09/04/2023 4:12 EDT WBC 5.3 k/mm3 09/01/2023 0:53 EDT WBC 6.6 k/mm3 Result type: CT Pelvis W/ Contrast Result date: October 02, 2023 14:56 EDT Result status: Auth (Verified) Result title: CT Pelvis W/ Contrast Performed by: Chidi Leblanc MD on October 02, 2023 15:17 EDT Verified by: Chidi Leblanc MD on October 02, 2023 15:17 EDT Encounter info: [id number], [facility], Observation, 10/02/2023 - * Final Report * Reason For Exam ? large right gluteal abscess;Other: RESULT: CT Pelvis W/ Contrast CT Pelvis W/ Contrast Reason: Other:; ? large right gluteal abscess; Clinical Question(s): Abscess; Order Comment: TECHNIQUE: Helical CT with IV contrast formatted in 3 planes. 100 cc of Omnipaque 300 was administered intravenously. Enteric contrast administered. Automatic tube modulation and/or iterative dose reconstruction were used to optimize exposure parameters. CTDIvol Body: 9.10 mGy, DLP Body: 395 mGy*cm. COMPARISON: 09/22/2023 FINDINGS: Soft tissues: Extensive skin thickening and soft tissue thickening extending into the subcutaneous soft tissues of the right gluteal region and right proximal thigh measuring up to 19 mm in thickness. Mild adjacent stranding. A superficial foci of gas in the skin surface likely reflecting ulceration. No discrete drainable fluid collection. Overall appearances similar to prior examination. Underlying musculature is unremarkable. Chronic prominent right and external iliac lymph nodes, likely reactive. Bones: Severe left hip degenerative changes in single partially cannulated screw in the left hip. Left coxa breva and coxa magna. IMPRESSION: No significant change in extensive area of presumed hidradenitis suppurativa of the right gluteal region. No discrete drainable abscess. Microbiology: No recent cultures Impression and Plan Impression: This is a 38-year-old man with above-mentioned problems and comorbidities. Patient being evaluated because of hidradenitis suppurativa. At this point, I am unclear if the patient has an active infectious process. The patient has no significant leukocytosis or even significant left shifting, no fever, significant alteration in his vital signs, and the wounds themselves do not look terribly all things considered. It seems that the patient has received antibiotic courses in the past without much improvement making me more suspicious that this is a primary hidradenitis issue, which is inflammatory rather than infectious. Since the patient's major complaint is pain, and the CT scan fails to showany collections that might be concerning for an infectious process, believe that aggressive wound management is what is needed. Following the clinical stages, the patient seems to be a possibly stage III taking into account that he has diffuse involvement with multiple skin tunnels. Reviewing the patient's chart and availableinformation it does seem that the patient has gone through most of the algorithm for the initial 2-3 steps of therapy. The fact that the patient has already given undergone significant therapy requiring wide excision likely indicates that he probably would need to be managed with some immunologicaltherapy whether it is infliximab, adalimumab, or some combination of treatment. This is typically done by dermatology since this is a primary skin inflammatory condition were the infectious process is a secondary problem. Would suggest that the patient be seen by dermatology; aware that they do notcome into the hospital but the patient should be set up with a local meter/relay craftsman since it seems that his insurance would not cover for dermatology over at [facility]. Perhaps this can be reassessed by the patient's caser in to see if anything can be done regarding this. Recommendations: -No clear evidence of infection -Monitor off antibiotic therapy -Aggressive wound care and pain management -Patient needs dermatology for evaluation for potential immunological therapy Thank you for the consultation. Infectious Diseases will sign-off, please call with any questions or concerns. Medical decision time: 85 minutes Disclaimer: This dictation was accomplished with use of [employer] voice recognition software, prone tomedical word misidentifications and grammatical errors. The physician does strive to identify and correct these, but some could still be present. Please do not hesitate to contact physician for clarifications. Note * Albertina Adams RN: PERFORM Event Display: Discharge/Transfer Note Hospital Authored Date: [id number] Nursing Discharge Note Entered On: 10/04/2023 18:05 EDT Performed On: 10/04/2023 18:02 EDT by Albertina Adams RN Nursing Discharge Note 2 Discharge Time : 10/04/2023 18:02 EDT Discharge Level of Care at Discharge : Homehealth/VNA Discharge VNA/Hospice/Home Care(v001) : [facility] [phone] Patient Left Unit Via : Ambulance Patient Accompanied Off Unit with : Ambulance/Chair Van Personnel Handover Given to Transport Personnel : Yes DC Instructions Provided & Signed by Pt : Yes Patient Understands D/C Instructions : Yes Patient Instructions Discharge Signed : Yes Did Pt have Specialty Bed or Wound Vac : Yes Albertina Adams RN - 10/04/2023 18:04 EDT * Fani PAGAN, Twara K: MODIFY, PERFORM Event Display: Discharge/Transfer Note Hospital Authored Date: [id number] Patient: ??DAVID MCQUEEN ? Age:??38 Years?Sex:??Male?:??1985?? Patient Information Discharge Location: S1 Primary Care Physician: Derek Tomas MD Admit Date/Time: 10/02/23 12:38 Discharge Disposition Discharge Disposition: Home: No Services Discharge Diagnosis Hidradenitis suppurativa (L73.2) History of CVA with residual deficit (I69.30) Chronic pain syndrome (G89.4) Depression (F32.A) Hypertension (I10) GERD (gastroesophageal reflux disease) (K21.9) Iron deficiency anemia (D50.9) Mural thrombus of heart (I51.3) Thrombocytosis (D75.839) Chronic, continuous use of opioids (F11.90) _ Discharge Medications Amlodipine (amLODIPine 5 mg oral tablet)?5?Milligram?1?tablet?By [...] wound solution)?See Instructions?Use 45mL daily Ferrous Sulfate (FeroSul 325 mg oral tablet)?1?tab(s)?325?Milligram?By Mouth?2 times a day Folic Acid (folic [...] Oxycodone (oxyCODONE 20 mg oral tablet)?1?tab(s)?20?Milligram?By Mouth?Every 8 hours?for 3?Days Pantoprazole (pantoprazole 40 mg oral delayed release tablet)?40?Milligram?By Mouth?Daily?for 30?Days Polyethylene Glycol 3350 (MiraLax oral powder for reconstitution)?17?gram?By Mouth?Daily?as needed?Constipation?for 30?Days Tizanidine (tiZANidine 2 mg oral tablet)?4?Milligram?2?tablet?By Mouth?Every 8 hours?as needed?as needed for muscle spasm Triamcinolone Topical (triamcinolone 0.1% topical cream)?1?boyd?Topically?2 times a day?*DO NOT APPLY TO OPEN WOUND(S)* ? Quality Measures Tobacco Use Treatment:? Inpatient Medications Medications (19) Active SCHEDULED: (10) Acetaminophen 325 mg Tablet (Acetaminophen Tablet) ??650 mg, By Mouth, Every 4 hours Apixaban 5 mg Tablet (Eliquis) ??5 mg, By Mouth, 2 times a day Ascorbic Acid 250 mg Tablet (ascorbic acid 250 mg oral tablet) ??500 mg, By Mouth, Daily Baclofen 10 mg Tablet (baclofen 10 mg oral tablet) ??20 mg, By Mouth, 4 times a day Duloxetine 30 mg Capsule (Duloxetine) ??30 mg, By Mouth, Daily Gabapentin 300 mg Capsule (gabapentin 300 mg oral capsule) ??600 mg, By Mouth, 3 times a day Hydroxyurea 500 mg Capsule (hydroxyurea 500 mg oral capsule) ??500 mg, By Mouth, Daily NaCl 0.9% Flush 3ml (NaCL 0.9% Flush) ??3 mL, IV Push, Every 8 hours OxyCODONE 5 mg IR Tablet (oxyCODONE 5 mg oral tablet) ??30 mg, By Mouth, Every 4 hours Pantoprazole 40 mg EC Tablet (pantoprazole 40 mg oral delayed release tablet) ??40 mg, By Mouth, Daily CONTINUOUS: (0) PRN: (9) Dextromethorphan-Guaifenesin 20 mg-200 [...] ??3 mL, IV Push, Every 8 hours nalOXONE ??400mcg/mL Inj (Narcan Inj) ??0.4 mg 1 mL, IV Push Slowly, Once Polyethylene Glycol 17 Gm Powder (MiraLax Powder) ??17 Gm 1 pack/packet, By Mouth, Daily Senna Tablet ??8.6 mg 1 tablet, By Mouth, 2 times a day Simethicone 80 mg Chewable Tablet (Simethicone Tablet) ??80 mg, Chew, 3 times a day Tizanidine 4 mg Tablet (tiZANidine 4 mg oral tablet) ??4 mg, By Mouth, Every 8 hours ? Medications Started Oxycodone Medications Discontinued None Doses Changed None Allergies Allergies ?(Active and Proposed Allergies Only) NKA? (Severity: Unknown severity, Onset: Unknown) ? PCP Follow-Up/Heads-Up ??David was presented with??right gluteal pain, he was managed with IV Dilaudid as well as oxycodone in the hospital.?? He is currently being discharged??with??oral oxycodone??as needed to be used every??6 hours to get through the weekend.?? Given absence of fevers or leukocytosis, he did not requi re antibiotics. ??He was also seen by infectious disease??team.For moderate pain,??he could use Tylenol 650 mg every 4 hours??and??ibuprofen/Motrin??400 mg every 4-6 hours as needed.?? Kindly consider??uptitrating Cymbalta or gabapentin if deemed appropriate.?? Hospital Course This is a case of a 38-year-old male with a past medical history significant for left ICA stroke with residual right-sided spastic hemiparesis, dysarthria, thrombus of the cardiac apex on Eliquis, severe hidradenitis with local excision and I&D's who presents from their PCP office for multiple purulent lesions. Patient was seen by ID, since patient was afebrile did not have any leukocytosis, antibiotics were not started. He was given pain management with as needed oral oxycodone as well as IV Dilaudid. He was seen by APS, who recommended against further up titration of opioids, recommended continuing gabapentin at 600 mg 3 times a day, duloxetine 30 mg once a day, as well as oxycodone 30 mg every 4 hours. He will be advised to take scheduled Tylenol 650 mg every 4 hours, and could also try scheduled Motrin. He will otherwise continue tizanidine/baclofen for spasms and Eliquis for mural thrombus. Continue hydroxyurea for thrombocytosis. Patient seen and examined today, hemodynamically stable, not in any acute distress, stable for discharge from medical standpoint. Prescription for oxycodone provided to get through the weekend. Patient was seen by addiction who offered the patient a referral for general therapy service however he declined. He could be uptitrated on Cymbalta/gabapentin as an outpatient and he may need to enter into a controlled substance contract with his primary care doctor given ongoing opioid need. ?? Of note, I was informed by outpatient pharmacist that insurance will only approve??3 tabs of 20 mg oxycodone per day??hence, prescription sent for??every 8 hours??for 3 days. ?? Objective Assessment and Plan Discharge Planning:? Vital Signs?? Temperature: 98.1 DegF (10/04/23 13:00:00) Temperature Route: Axillary (10/04/23 13:00:00) Pulse Rate: 70 bpm (10/04/23 12:00:00) Respiratory Rate:??15 br/min??Low (10/04/23 13:28:00) Systolic Blood Pressure: 114 mm Hg (10/04/23 12:00:00) Diastolic Blood Pressure:??33 mm Hg??Low (10/04/23 12:00:00) Mean Arterial Pressure: 72 mm Hg (10/04/23 03:49:00) Pulse Pressure: 81 mm Hg (10/04/23 12:00:00) Oxygen Saturation: 99 % (10/04/23 12:00:00) Mode of Delivery (Oxygen): Room air (10/04/23 12:00:00) Early Warning Score: 0 (10/04/23 13:50:31) ? . Physical Exam Constitutional: Alert, in no distress. Mental Status: Oriented to person, place and time. Respiratory: Clear to auscultation. No wheezing, rales or rhonchi. Cardiovascular: S1 S2 regular. No murmurs, rubs or gallops. Gastrointestinal: Abdomen soft, non-tender, non-distended. Normal bowel sounds. No pulsatile mass. No hepatosplenomegaly. Genitourinary: No costovertebral angle tenderness. Neurologic: R sided weakness Psychiatric: Normal mood and affect Skin: right??buttock??with multiple areas of drainage, both bloody and purulent.?? Extremely painful to touch Consultants APS, addiction medicine Pending Results Add On Lab Order ordered on 10/03/2023 Blood Culture #2 ordered on 10/02/2023 Urinalysis w/hold for Urine Culture ordered on 10/02/2023 Follow-Up Appointments Added Follow Up ?Time Frame ?Comments Derek Tomas MD?2 to 3 days?David was presented with??right gluteal pain, he was managed with IV Dilaudid as well as oxycodone in the hospital.?? Heis currently being discharged??with??oral oxycodone??as needed to be used every??6 hours to get through the weekend.?? Given absence of fevers or leukocytosis, he did not require antibiotics. ??He was also seen by infectious disease??team.For moderate pain,??he could use Tylenol 650 mg every 4 hours??and??ibuprofen/Motrin??400 mg every 4-6 hours as needed.?? Kindly consider??uptitrating Cymbalta or gabapentin if deemed appropriate.?? Patient Instructions You came in with pain over your right??gluteal region,??since there is no evidence of active infection, antibiotics were not required. ??You will be discharged??with??few tablets of oxycodone.?Additionally, you could take scheduled Tylenol 650 mg every 4 hours as well as Motrin??400 mg every 4-6 hours.?? You can continue taking all other medications in addition to oral iron tablets. ?? Currently you are stable and ready for discharge to home. Please see your primary care doctor within??3-5 days of discharge ?? If your symptoms worsen or you develop chest pain, shortness of breath, severe cough, fevers, chills, abdominal pain, nausea/vomiting, or any severe symptoms you can come back to the emergency department. Post Discharge Care Activity: ??OOB as Jj With Assistance ?? Code Status: ??Full Resuscitation ?? Discharge ?10/04/23 15:19:00 EDT Home Health Face to Face ^HomeHealthFTF Results Discharge Labs BACTERIOLOGY Blood Culture Results Preliminary report ()?? 10/02/2023 14:00 Blood Culture Specimen Source BLOOD ()?? 10/02/2023 14:00 Blood Culture Isolate 1 Comment ()?? 10/02/2023 14:00 ? BLOOD BANK Blood Type A Positive ()?? 10/03/2023 13:46 Antibody Screen Negative ()?? 10/03/2023 13:46 ?? BLOOD COUNT & DIFF WBC 6.5 k/mm3 ()?? 10/04/2023 00:12 RBC 3.02 m/mm3 (Low)?? 10/04/2023 00:12 Hgb 7.4 Gm/dL (Low)?? 10/04/2023 00:12 Hct 25.0 % (Low)?? 10/04/2023 00:12 MCV 82.8 femtoliters ()?? 10/04/2023 00:12 MCH 24.5 pg (Low)?? 10/04/2023 00:12 MCHC 29.6 g/dL (Low)?? 10/04/2023 00:12 Platelet Count 683 k/mm3 (High)?? 10/04/2023 00:12 RDW-SD 58.3 femtoliters (High)?? 10/04/2023 00:12 MPV 8.6 femtoliters (Low)?? 10/04/2023 00:12 Nucleated RBC (Automated) 0.0 #/100 WBC'S ()?? 10/04/2023 00:12 Abs. NRBC 0.0 k/mm3 ()?? 10/04/2023 00:12 Abs. Neut 7.2 k/mm3 (High)?? 10/02/2023 14:00 Abs. Lymph 2.1 k/mm3 ()?? 10/02/2023 14:00 Abs. [place] 0.7 k/mm3 ()?? 10/02/2023 14:00 Abs. Eo 0.1 k/mm3 ()?? 10/02/2023 14:00 Abs. Baso 0.0 k/mm3 ()?? 10/02/2023 14:00 Neut % 71.2 % ()?? 10/02/2023 14:00 Lymph % 20.8 % ()?? 10/02/2023 14:00 [place] % 6.7 % ()?? 10/02/2023 14:00 Eos % 0.8 % ()?? 10/02/2023 14:00 Baso % 0.2 % ()?? 10/02/2023 14:00 Imm Gran 0.3 % ()?? 10/02/2023 14:00 Abs. Imm Gran 0.0 k/mm3 ()?? 10/02/2023 14:00 ?? CHEM GENERAL Sodium 137 mmol/L ()?? 10/04/2023 00:12 Potassium 4.4 mmol/L ()?? 10/04/2023 00:12 Chloride 102 mmol/L ()?? 10/04/2023 00:12 Bicarbonate Level 25 mmol/L ()?? 10/04/2023 00:12 Anion Gap 10 ()?? 10/04/2023 00:12 Glucose Level 96 mg/dL ()?? 10/04/2023 00:12 BUN 21 mg/dL (High)?? 10/04/2023 00:12 Creatinine-Blood 0.80 mg/dL ()?? 10/04/2023 00:12 Estimated GFR Creatinine 117 ML/MIN/1.73 M2 ()?? 10/04/2023 00:12 Calcium 8.5 mg/dL (Low)?? 10/04/2023 00:12 Magnesium 2.1 mg/dL ()?? 10/03/2023 07:04 Protein, Total 6.8 Gm/dL ()?? 10/03/2023 07:04 Albumin 3.0 Gm/dL (Low)?? 10/03/2023 07:04 AG Ratio 0.8 ()?? 10/03/2023 07:04 Alkaline Phosphatase 120 units/L ()?? 10/03/2023 07:04 AST (SGOT) 6 units/L ()?? 10/03/2023 07:04 ALT (SGPT) <5 units/L ()?? 10/03/2023 07:04 Bilirubin, Total 0.2 mg/dL ()?? 10/03/2023 07:04 Lactate 1.1 mmol/L ()?? 10/02/2023 14:00 Iron Level 12 mcg/dL (Low)?? 10/03/2023 07:04 Iron Binding Capacity, Unsaturated 212 mcg/dL ()?? 10/03/2023 07:04 Iron Binding Capacity, Estimated Total 224 mcg/dL ()?? 10/03/2023 07:04 % Iron Saturation 5 % (Low)?? 10/03/2023 07:04 Ferritin Level 22 ng/mL ()?? 10/03/2023 07:04 ?? HEME OTHER Hold Blue Top SPECIMEN DISCARDED AFTER 4 HOURS. ()?? 10/02/2023 14:00 ? IMMUNOLOGY GENERAL Transferrin 172 mg/dL (Low)?? 10/03/2023 07:04 ? URINE OTHER Est Creatinine Clearance 155.15 mL/min ()?? 10/03/2023 08:42 ? Image ?CT Pelvis W/ Contrast??10/02/2023 14:56 by Yaritza Patterson ? 34??minutes spent on discharge * Bryan BUSTAMANTE, Albertina: PERFORM Event Display: Patient Education/Instruction Authored Date: Inpatient Adult Discharge Instructions. [address] [address] Name: DAVID MCQUEEN : 1985?? Visit: 10/02/2023 12:38?? Current Date: 10/04/2023 16:21 ?? Account: [id number]?? Inpatient Adult Discharge Instructions We would like [...] and their families. Surveys are administered by [employer] ?? If further treatment with your primary care physician or another doctor is recommended, it is important for you to keep the appointment. Call your primary care physician or return to the Emergency Department immediately if your condition worsens, fails to improve, or new symptoms develop. If you need to find a doctor, you can call [facility] [employer] [facility] for a referral at [phone] or toll free at [phone]) or log in to [email or web address].. ?? [facility], in keeping with [facility] guidance, no longer requires face masks [...] a health care boyd of your choosing. [email or web address] is a website that allows you to securely view your medical information including your hospital discharge summary, office visit summaries, medications and follow-up visits. You can also request appointments, renew medications, and request access to your medical information using a health care boyd of your choosing, or just ask a question. You can enroll at [email or web address] or register during your next office visit. You have been discharged from [facility], Patient Care Unit: S1??. If you have any questions regarding these instructions, including results of studies pending, afteryou leave, please call us and we will be happy to assist you 03/12. [facility] Your Care Team Attending Physician Cat Mohr MD?? Consulting Providers Cat Mohr MD?? Discharging Providers Cat Mohr MD Reason for Your Visit Pt is coming from PCP office, multiple abscess on right buttocks. pt has been dealing with these onand off for 3-4 years. coming from primary care due to doctor referral to rule out sepsis. reports abscesses are infected and oozing. pt has previous st?? Your Diagnosis Chronic pain syndrome Chronic, continuous use of opioids Depression GERD (gastroesophageal reflux disease) History of CVA with residual deficit Hypertension Iron deficiency anemia Mural thrombus of heart Skin problem Thrombocytosis Tests Performed Below is a partial list of the tests performed during your hospitalization. You may have had other tests and procedures not included in this list. Please discuss all test results with your provider. Basic Metabolic Panel Blood Culture Blood Culture Result BUN Calcium Level CBC CBC w/ Differential Comprehensive Metabolic Panel Creatinine Electrolytes FERRITIN Glucose Level Hold Blue Top Tube IRON & TIBC Lactate Level Magnesium Level TRANSFERRIN Type and Screen CT Pelvis W/ Contrast Add On Lab Order?? Blood Culture #2?? Urinalysis w/hold for Urine Culture?? Primary Care Provider Derek Tomas MD? Advance Directive Health Care Proxy on File Yes - Health Care Proxy Discharge Vitals Temperature: 98.1 DegF Height: 193 cm Pulse Rate: 70 bpm Weight: 88.9 kg Respiratory Rate:??15 br/min??Low ?? Systolic Blood Pressure: 114 mm Hg ?? Diastolic Blood Pressure:??33 mm Hg??Low ?? Oxygen Saturation: 99 % ?? Studies Pending All studies ordered during this hospital stay have been completed unless listed below. Please discuss all pending results with your provider listed above in these instructions. ?? Add On Lab Order?? Blood Culture #2?? Urinalysis w/hold for Urine Culture?? What to do next Instructions From Your Doctor You came in with pain over your right??gluteal region,??since there is no evidence of active infection, antibiotics were not required. ??You will be discharged??with??few tablets of oxycodone.?Additionally, you could take scheduled Tylenol 650 mg every 4 hours as well as Motrin??400 mg every 4-6 hours.?? You can continue taking all other medications in addition to oral iron tablets. ?? Currently you are stable and ready for discharge to home. Please see your primary care doctor within??3-5 days of discharge ?? If your symptoms worsen or you develop chest pain, shortness of breath, severe cough, fevers, chills, abdominal pain, nausea/vomiting, or any severe symptoms you can come back to the emergency department. ?? Orders??:OOB as Jj ??With Assistance Status: ??Full Resuscitation? 10/04/23 15:19:00 EDT?? You Need to Schedule the Following Appointments Follow Up with??Genoveva PAGAN, Derek When:??Within 2 to 3 days Why: David was presented with??right gluteal pain, he was managed with IV Dilaudid as well as oxycodonein the hospital.?? He is currently being discharged??with??oral oxycodone??as needed to be used every??6 hours to get through the weekend.?? Given absence of fevers or leukocytosis, he did not require antibiotics. ??He was also seen by infectious disease??team. For moderate pain,??he could use Tylenol 650 mg every 4 hours??and??ibuprofen/Motrin??400 mg every 4-6 hours as needed.?? Kindly consider??uptitrating Cymbalta or gabapentin if deemed appropriate. ? Where: [address] [place] [id number]- Discharge Medications DAVID MCQUEEN :1985 Visit Date:10/02/2023 Medications: Please continue your medications until treatment is completed or stopped by your provider. Medications not listed below should be discontinued. Discuss any questions related to medications with your provider. What How Much When Why Instructions Next Dose New Oxycodone (oxyCODONE 20 mg oral tablet) 1 tab(s) Oral Every 8 hours Duration: 3 Days Pickup at [facility] 3 tonight at 9pm Unchanged Amlodipine (amLODIPine 5 mg oral tablet) 1 tab(s) Oral Daily tomorrow 9am Unchanged apixaban (Eliquis 5 mg oral tablet) 1 tab(s) Oral Twice a day tonight at 9pm Unchanged Ascorbic Acid (ascorbic acid 500 mg oral tablet) 1 tab(s) Oral Daily tomorrow 9am Unchanged Baclofen (baclofen 20 mg oral tablet) 1 tab(s) Oral 4 times a day today at 5pm Unchanged Cholecalciferol (Vitamin D3 1000 intl units oral tablet) 1 tab(s) Oral Daily tomorrow 9am Unchanged Docusate (docusate sodium 100 mg oral capsule) 1 capsule Oral Twice a day tonight at 9pm Unchanged Duloxetine (duloxetine 30 mg oral enteric coated capsule) 1 capsule Oral Daily Duration: 30 Days TAKE 1 CAPSULE BY MOUTH EVERY DAY ?? tomorrow 9am Unchanged Durable Medical Equipment (Vashe wound solution) See instructions Hydradenitis Use 45mL daily ?? Unchanged Ferrous Sulfate (FeroSul 325 mg oral tablet) 1 tab(s) Oral Twice a day tonight at 9pm Unchanged Folic Acid (folic acid 1 mg oral tablet) 1 tab(s) Oral Daily tomorrow 9am Unchanged Gabapentin (gabapentin 600 mg oral tablet) 1 tab(s) Oral 3 times a day tonight at 9pm Unchanged Hydroxyurea (hydroxyurea 500 mg oral capsule) 500 Milligram Oral Daily Duration: 30 Days tomorrow 9am Unchanged nalOXONE (Narcan 4 mg/ 0.1 mL nasal spray) 1 spray(s) Nares, Both Once To be used use one spray in one nostril. if an additional dose is needed, alternate nostril. may repeat every 2 to 3 minutes until patient responds ?? Unchanged Pantoprazole (pantoprazole 40 mg oral delayed release tablet) 40 Milligram Oral Daily Duration: 30 Days tomorrow 9am Unchanged Polyethylene Glycol 3350 (MiraLax oral powder for reconstitution) 17 gram Oral Daily as needed for Constipation Duration: 30 Days as needed Unchanged Tizanidine (tiZANidine 2 mg oral tablet) 2 tab(s) Oral Every 8 hours as needed for as needed for muscle spasm as needed Unchanged Triamcinolone Topical (triamcinolone 0.1% topical cream) 1 boyd Topically Twice a day *DO NOT APPLY TO OPEN WOUND(S)* ?? tonight at 9pm Pharmacy Information [facility]: [address], [place] [id number] [phone] Prescription Given During Visit Oxycodone (oxyCODONE 20 mg oral tablet) - 1 tablet = 20 mg, By Mouth, Every 8 hours, # 9 tablet, 0 Refills, [facility], [address] [place] [phone]?? Laboratory Results Below is a partial list of the most recent Laboratory test results done prior to this discharge. You may have had other tests and procedures not included in this list. Please discuss all test resultswith your provider. Est Creatinine Clearance - 155.15 mL/min (10/03/2023) Basic Metabolic Panel (10/02/2023) ???Sodium - 139 mmol/L???Potassium - 4.6 mmol/L???Chloride - 101 mmol/L???Bicarbonate Level - 27 mmol/L???Anion Gap - 11???Glucose Level - 84 mg/dL???BUN - 14 mg/dL???Creatinine-Blood - 0.89 mg/dL???Estimated GFR Creatinine - 113 ML/MIN/1.73 M2???Calcium - 9.1 mg/dL Blood Culture (10/02/2023) ???Blood Culture Results - Preliminary report???Blood Culture Specimen Source - BLOOD Blood Culture Result (10/02/2023) ???Blood Culture Isolate 1 - Comment BUN (10/04/2023) ???BUN - 21 mg/dL Calcium Level (10/04/2023) ???Calcium - 8.5 mg/dL CBC (10/04/2023) ???WBC - 6.5 k/mm3???RBC - 3.02 m/mm3???Hgb - 7.4 Gm/dL???Hct - 25.0 %???MCV - 82.8 femtoliters???MCH - 24.5 pg???MCHC - 29.6 g/dL???Platelet Count - 683 k/mm3???RDW-SD - 58.3 femtoliters???MPV - 8.6femtoliters???Nucleated RBC (Automated) - 0.0 #/100 WBC'S???Abs. NRBC - 0.0 k/mm3 CBC w/ Differential (10/02/2023) ???WBC - 10.1 k/mm3???RBC - 3.31 m/mm3???Hgb - 8.1 Gm/dL???Hct - 27.4 %???MCV - 82.8 femtoliters???MCH - 24.5 pg???MCHC - 29.6 g/dL???Platelet Count - 744 k/mm3???RDW-SD - 59.7 femtoliters???MPV - 8.4 femtoliters???Nucleated RBC (Automated) - 0.0 #/100 WBC'S???Abs. NRBC - 0.0 k/mm3???Abs. Neut - 7.2 k/mm3???Abs. Lymph - 2.1 k/mm3???Abs. [place] - 0.7 k/mm3???Abs. Eo - 0.1 k/mm3???Abs. Baso - 0.0 k/mm3???Neut % - 71.2 %???Lymph % - 20.8 %???[place] % - 6.7 %???Eos % - 0.8 %???Baso % - 0.2 %???Imm Gran- 0.3 %???Abs. Imm Gran - 0.0 k/mm3 Comprehensive Metabolic Panel (10/03/2023) ???Sodium - 136 mmol/L???Potassium - 4.2 mmol/L???Chloride - 101 mmol/L???Bicarbonate Level - 27 mmol/L???Anion Gap - 8???Glucose Level - 86 mg/dL???BUN - 18 mg/dL???Creatinine-Blood - 0.80 mg/dL???Estimated GFR Creatinine - 117 ML/MIN/1.73 M2???Calcium - 8.7 mg/dL???Protein, Total - 6.8 Gm/dL???Albumin - 3.0 Gm/dL???AG Ratio - 0.8???Alkaline Phosphatase - 120 units/L???AST (SGOT) - 6 units/L???ALT (SGPT) - <5 units/L? ?Bilirubin, Total - 0.2 mg/dL Creatinine (10/04/2023) ???Creatinine-Blood - 0.80 mg/dL???Estimated GFR Creatinine - 117 ML/MIN/1.73 M2 Electrolytes (10/04/2023) ???Sodium - 137 mmol/L???Potassium - 4.4 mmol/L???Chloride - 102 mmol/L???Bicarbonate Level - 25 mmol/L???Anion Gap - 10 FERRITIN (10/03/2023) ???Ferritin Level - 22 ng/mL Glucose Level (10/04/2023) ???Glucose Level - 96 mg/dL Hold Blue Top Tube (10/02/2023) ???Hold Blue Top - SPECIMEN DISCARDED AFTER 4 HOURS. 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 Chronic ischemic left ICA stroke?? Chronic pain?? [...] Belongings I fully understand and agree that [facility] accepts no responsibility for all my personal [...] ?? Date for Pt to Sign Valuables/Belongings: 10/02/23 21:20:00 ?? Other Discharge Information ? Case Management Discharge Plan?? Discharge Plan?? Discharge Agency Information?? Discharge Level of Care at Discharge: Homehealth/VNA Name of Agency #1: [facility] Discharge Rx Program: Discharge Prescription Program Agency Mechanical Maintenance #1: Intake Discharge VNA/Hospice/Home Care: [facility] [phone] Service Categories #1: Home health aide, [facility] ?? Service Comments #1: You are being discharged home with [facility], they will contact youafter discharge to arrange a visit time. ?? Pulmonary Rehab Status?? Pulmonary Rehab Discharge Status?? Respiratory Rate:??15 br/min??Low ? Common Emergency Awareness Tips IS IT [...] are strongly encouraged to quit. Please call [facility] [employer] [facility] at [phone] or [phone] ([phone]) or log in to [email or web address] for referrals to smoking cessation programs. ?? 444 Suicide & Crisis Lifeline is available 03/12 if you or someone you know needs to find a reason to keep living. By calling 105 you'll be connected to a skilled, trained counselor at a crisis center in your area. INPATIENT DISCHARGE INSTRUCTIONS SIGNATURE PAGE DAVID MCQUEEN Location:[facility] Registration Date and Time:10/02/2023 12:38 EDT Primary Care Physician: Genoveva PAGAN, Derek, Attending Physician: Fani PAGAN, Cat Lopez, I DAVID MCQUEEN, have received the above patient education materials/instructions and have verbalized understanding. If ambulance or transport services are being used I further acknowledge being given a choice of service. ?? If you need to contact me, please call me at this number: . Patient/Surveillance Supervisor Name: Patient/Surveillance Supervisor Signature: Relationship to Patient: Witness Name/Signature: Date: Patient Care team information Care Team Personnel Name: Anu Lipscomb Position: S RN Member Role: Primary Care Nurse Name: Jeanne Bryant RN Position: [facility] RN Member Role: Primary Care Nurse Name: Mitch Guido RN Position: [facility] RN Member Role: Primary Care Nurse Name: Areli Pittman RN Position: [facility] ED RN W/OE and Tasks Member Role: Primary Care Nurse Name: Derek Tomas MD Position: [facility] Resident Member Role: PCP Address: Address: [address] [place] [address] Name: Monique Irwin LPN Position: S RN Member Role: Primary Care Nurse Name: Lianna Epstein RN Position: [facility] RN Member Role: Primary Care Nurse Name: Mk Knutson LPN Position: [facility] RN Member Role: Primary Care Nurse Name: Vicenta Barnett RN Position: S RN Member Role: Primary Care Nurse Name: Farhana Garcia RN Position: [facility] RN Member Role: Primary Care Nurse Name: Albertina Adams RN Position: [facility] RN Member Role: Primary Care Nurse Name: Ricardo Russell RN Position: S RN Member Role: Primary Care Nurse Name: Gissell Jernigan RN Position: [facility] RN Member Role: Primary Care Nurse Name: Farhana Green RN Position: [facility] RN Member Role: Primary Care Nurse Name: Cydney Delgado RN Position: [facility] RN Member Role: Primary Care Nurse Name: Sharon Mendez RN Position: [facility] RN Member Role: Primary Care Nurse Name: Mookie Christianson RN Position: [facility] RN Member Role: Primary Care Nurse Name: Ally Boyd RN Position: [facility] RN Member Role: Primary Care Nurse Name: Javed Oneill RN Position: [facility] RN Member Role: Primary Care Nurse Name: Lynn Stewart RN Position: [facility] RN Member Role: Primary Care Nurse Name: Amanda Johnson RN Position: [facility] RN Member Role: Primary Care Nurse Name: Jolie Villalobos RN Position: [facility] RN Member Role: Primary Care Nurse Name: Axel Savage RN Position: [facility] RN Member Role: Primary Care Nurse Name: Dirk Driver RN Position: [facility] RN Member Role: Primary Care Nurse Name: Glenys Bee RN Position: [facility] RN Member Role: Primary Care Nurse Name: Praveen Maurer Position: [facility] RN Member Role: Primary Care Nurse Name: Filemon King RN Position: [facility] RN Member Role: Primary Care Nurse Name: Lauren Guevara RN Position: [facility] RN Member Role: Primary Care Nurse Name: Annamaria Quinn RN Position: [facility] RN Member Role: Primary Care Nurse Name: Jada Waller RN Position: [facility] RN Member Role: Primary Care Nurse Name: Lashawn Nagy RN Position: [facility] RN Member Role: Primary Care Nurse Name: Jacquelin Naranjo RN Position: [facility] RN Member Role: Primary Care Nurse Name: Glenys Fox RN Position: [facility] RN Member Role: Primary Care Nurse Care Team Related Persons Name: JUHI BEVRELY Address: home [place], [place] Name: HEENA MCQUEEN Address: home [address] [place], [place] Name: AISLINN DE LA PAZ Address: [address] [place] [address]
--- OUTSIDE RECORDS SUMMARY | 2024-01-21 19:30 | XMS_ITS | Continuity of Care Document ---
Author Organization [facility] Address [address] [place] [address]- Care Team Providers Care Half Section Ironer Name Role Phone Derek Tomas MD Primary Care Physician Encounter [facility] Date(s): 01/21/23 - 02/20/23 [facility] [address] [place] [address]- Allergies, Adverse Reactions, Alerts No Known Allergies [...] Stop 12/08/23 11:18:00 EDT, 12/13/22 11:18:00 EDT, [facility]/pharmacy #[id number], 193.04, cm, 12/13/22 10:25:00 EDT, Height, 99.6, kg, 06/06/22 18:00:00 EST, Dry Weight Start Date: 12/13/22 Stop Date: 12/08/23 Status: Ordered baclofen 20 mg oral tablet 20 mg, 1, tablet, By Mouth, 4 times a day, # 120 tablet, Refills 5, Tot. Refills 5, Maintenance, 10/26/21 9:45:00 EDT, Route to Pharmacy Electronically, [facility]/pharmacy #[id number], 193, cm, 10/26/21 9:21:00 EDT, [...] Refills, Maintenance, 08/17/22 15:25:00 EDT, [id number], 193.04, cm, 07/23/22 14:07:00 EDT, Height, 99.6, kg, 06/06/22 18:00:00 EST, Dry Weight Start Date: 08/17/22 Status: Ordered Eliquis 5 mg oral tablet 1 tablet, By Mouth, 2 times a day, # 60 tablet, 11 Refills, 02/07/22 11:13:00 EDT, [facility]/pharmacy #[id number], 193, cm, 02/07/22 10:31:00 EDT, Height, 97.2, kg, 10/26/21 9:21:00 EDT, Dry Weight Start Date: 02/07/22 Status: Ordered ferrous sulfate 325 mg oral tablet TAKE 1 TABLET BY MOUTH EVERY DAY NEEDED Start Date: 09/12/22 Status: Ordered FLUoxetine 20 mg oral capsule 1, capsule, By Mouth, Daily, # 30 capsule, Refills 14, Maintenance, 08/13/22 15:55:00 EDT, Route toPharmacy Electronically, [id number], 193.04, cm, 07/23/22 14:07:00 EDT, Height, 99.6, [...] 02/22/22 9:42:00 EDT, Route to Pharmacy Electronically, [id number], 193, cm, 02/07/22 10:31:00 EDT, Height, 97.2, [...] capsule, 5 Refills, Maintenance, 08/13/22 15:28:00 EDT, [facility]/pharmacy #[id number], 193.04, cm, 07/23/22 14:07:00 EDT, Height, 99.6, kg, 06/06/22 18:00:00 EST, Dry Weight Start Date: 08/13/22 Status: Ordered Right ankle & foot orthosis Right ankle & foot orthosis, See Instructions, # 1 each, Refills 1, Tot. Refills 1, Maintenance, Please dispense 1 right ankle and foot othosis Dx: R29.898, R26.81, M25.373 Length of need: 99 months Number to fax to: [phone], 01/06/21 13:10:00 E... Start Date: 01/06/21 Status: Ordered scopolamine 1 mg/72 hr transdermal film, extended release See Instructions, APPLY 1 PATCH TO RIGHT MASTOID BONE EVERY 72 HOURS, # 10 each, 3 Refills, Maintenance, 06/29/22 11:46:00 EST, [facility]/pharmacy #[id number], APPLY 1 PATCH TO RIGHT MASTOID BONE EVERY 72 HOURS,193.04, cm, 06/29/22 11:17:00 EST, Height, 99.6, kg... Start Date: 06/29/22 Status: Ordered scopolamine 1 mg/72 hr transdermal film, extended release 1 film, Topically, Every 72 hours, Apply to right mastoid bone, # 10 patch, 0 Refills, Maintenance,12/13/22 11:53:00 EDT, [facility]/pharmacy #[id number], Partial fill upon patient request [...] 05/20/22 19:50:00 EST, Route to Pharmacy Electronically, [facility]/pharmacy #[id number], Partial fill upon patient request if the [...] apex Confirmed Active N CP Care Management, Wire Stitcher Carmen Elizabeth [phone] Confirmed Active Therapeutic drug monitoring Confirmed Active [...] CENTER Resident Member Role: PCP Address: Address: [address] [place] [address]- Name: Ally Boyd RN Position: [facility] RN Member Role: Primary Care Nurse Name: Aexl Savage RN Position: S RN Member Role: Primary Care Nurse Name: Filemon King RN Position: S RN Member Role: Primary Care Nurse Name: Glenys Fox RN Position: S RN Member Role: Primary Care Nurse Care Team Related Persons Name: BEVERLY REYNAGA Address: [address] [address] Name: AISLINN DE LA PAZ Address: [place] [address]
--- OUTSIDE RECORDS SUMMARY | 2024-01-21 19:30 | XMS_ITS | Continuity of Care Document ---
Author Organization [facility] Address [address] [place] [address]- Care Team Providers Care Double Cut Sawyer Name Role Phone Genoveva PAGAN, Derek Primary Care Physician Encounter [facility] Date(s): 10/08/23 - 11/07/[address] [address]- Allergies, Adverse Reactions, Alerts No Known Allergies [...] 06/17/23 8:53:00 EST, Route to Pharmacy Electronically, [facility], Partial fill upon patient [...] 08/06/23 9:00:00 EDT, Route to Pharmacy Electronically, [facility]/pharmacy #[id number], 182, cm, 07/26/23 9:16:00 EDT, Height, 89, kg, 07/03/23 11:22:00 EST, Dry Weight Start Date: 08/06/23 Status: Ordered docusate sodium 100 mg oral capsule 1 capsule, By Mouth, 2 times a day, # 60 capsule, 11 Refills, Maintenance, 09/03/23 17:44:00 EDT, [facility], 193, cm, 09/03/23 14:09:00 EDT, Height, 91.4, kg, 08/30/23 12:03:00 EDT, Dry Weight Start Date: 09/03/23 Status: Ordered duloxetine 30 mg oral enteric coated capsule 1 capsule = 30 mg, By Mouth, 2 times a day, TAKE 1 CAPSULE BY MOUTH EVERY DAY, # 60 capsule, 6 Refills, Maintenance, 10/25/23 15:39:00 EDT, Capsule, [facility]/pharmacy #[id number], Partial fill upon [...] 0 Refills, Maintenance, 10/16/23 15:51:00 EDT, [facility], 193, cm, 10/04/23 3:49:00 EDT, Height, 90.4, [...] tablet, 11 Refills, Maintenance, 08/12/23 13:51:00EDT, Tablet, [facility]/pharmacy #[id number], Partial fill upon patient request if the prescription is for a schedule II opioid drug., 182, cm, 07/26/23 9:16:00 EDT... Start Date: 08/12/23 Status: Ordered hydroxyurea 500 mg oral capsule = 500 mg, By Mouth, Daily, for 30 days, # 30 capsule, 0 Refills, Acute 11/15/23 15:53:00 EDT, 10/16/23 15:53:00 EDT, Capsule, [facility]/pharmacy #[id number], Partial fill upon patient request if the prescriptionis for a schedule II opioid drug., 193, cm, ... Start Date: 10/16/23 Stop Date: 11/15/23 Status: Ordered Narcan 4 mg/0.1 mL nasal spray 1 sprays = 4 mg, Nares, Both, Once, To be used use one spray in one nostril. if an additional dose is needed, alternate nostril. may repeat every 2 to 3 minutes until patient responds, # 2 each, 0 Refills, Soft Stop, 08/23/23 15:54:00 EDT, [facility]... Start Date: 08/23/23 Status: Ordered OxyCONTIN 20 mg oral tablet, extended release 20 mg, By Mouth, Every 8 hours, # 21 each, Refills 0, Tot. Refills 0, Maintenance, 11/04/23 12:34:00 EDT, Route to Pharmacy Electronically, [facility], Partial fill upon patient requestif the prescription is for a schedule II opioid laura... Start Date: 11/04/23 Stop Date: 11/11/23 Status: Ordered pantoprazole 40 mg oral delayed [...] 08/12/23 13:51:00 EDT, Route to Pharmacy Electronically, [facility]/pharmacy #[id number], Partial fill upon patient request if the [...] 0 Refills, Maintenance, 07/16/23 10:05:00 EST, Tablet, [facility], Partial fill upon patient request if [...] CENTER Resident Member Role: PCP Address: Address: [address] [place] [address] Name: Mari Suh RN [facility] RN Member Role: Primary Care Nurse Name: iFlemon King RN Position: [facility] [...] Care Nurse Care Team Related Persons Name: MARGARITA REYNAGAVIA Address: home [address] [place], [place] Name: HEENA MCQUEEN Address: [address] [place], [place] Name: AISLINN DE LA PAZ Address: home [address] [place] [id number]
--- OUTSIDE RECORDS SUMMARY | 2024-01-21 19:31 | XMS_ITS | Continuity of Care Document ---
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 Start Date: 06/17/23 Status: Ordered ascorbic acid 500 mg oral tablet 1 tablet = 500 mg, By Mouth, Daily, # 30 tablet, 0 Refills, Maintenance, 09/06/23 12:42:00 EDT, Tablet, [facility] #[id number], Partial fill upon patient request if the prescription is for a schedule II opioid drug., 193, cm, 09/05/23 19:48:00 EDT, Height... Start Date: 09/06/23 Status: Ordered baclofen 20 mg oral tablet 20 mg, 1, tablet, By Mouth, 4 times a day, # 120 tablet, Refills 5, Tot. Refills 5, Maintenance, 08/06/23 9:00:00 EDT, Route to Pharmacy Electronically, [facility] #[id number], 182, cm, 07/26/23 9:16:00 EDT, Height, 89, kg, 07/03/23 11:22:00 EST, Dry Weight Start Date: 08/06/23 Status: Ordered Dilaudid Inj 2 mg, Injection, IV Push Slowly, Every 4 hours, PRN for Pain , Severe, Routine, 09/21/23 8:14:00 EDT Start Date: 09/21/23 Stop Date: 09/24/23 Status: Discontinued docusate sodium 100 mg oral capsule 1 capsule, By Mouth, 2 times a day, # 60 capsule, 11 Refills, Maintenance, 09/03/23 17:44:00 EDT, [facility], 193, cm, 09/03/23 14:09:00 EDT, Height, 91.4, kg, 08/30/23 12:03:00 EDT, Dry Weight Start Date: 09/03/23 Status: Ordered duloxetine 30 mg oral enteric coated capsule 1 capsule = 30 mg, By Mouth, Daily, TAKE 1 CAPSULE BY MOUTH EVERY DAY, # 30 capsule, 6 Refills, Maintenance, 09/03/23 17:47:00 EDT, Capsule, [facility] #[id number], Partial fill upon patient request [...] tablet, 11 Refills, Maintenance, 08/12/23 13:51:00EDT, Tablet, [facility] #[id number], Partial fill upon patient request if the prescription is for a schedule II opioid drug., 182, cm, 07/26/23 9:16:00 EDT... Start Date: 08/12/23 Status: Ordered hydroxyurea 500 mg oral capsule = 500 mg, By Mouth, Daily, for 30 days, # 30 capsule, 2 Refills, Acute 10/18/23 14:36:00 EDT, 07/20/23 14:36:00 EST, Capsule, [facility] #[id number], Partial fill upon patient request if the prescriptionis for a schedule II opioid drug., 182, cm, ... Start Date: 07/20/23 Stop Date: 10/18/23 Status: Ordered MiraLax oral powder for reconstitution = 17 Gm, By Mouth, Daily, PRN Constipation, for 30 days, # 30 each, 0 Refills, Acute 10/06/23 12:41:00 EDT, 09/06/23 12:41:00 EDT, REC Powder, [facility][id number], Partial fill upon patient request [...] 09/27/23 9:42:00 EDT, 09/24/23 9:42:00 EDT, Tablet, [facility], Partial fillupon patient request if the prescription is for a s... Start Date: 09/24/23 Stop Date: 09/27/23 Status: Ordered oxyCODONE 5 mg oral tablet 30 mg, Tablet, By Mouth, Every 4 hours, PRN for Pain , Moderate, Routine, 09/21/23 12:23:00 EDT Start Date: 09/21/23 Stop Date: 09/24/23 Status: Discontinued pantoprazole 40 mg oral delayed release tablet [...] 08/12/23 13:51:00 EDT, Route to Pharmacy Electronically, [facility]/pharmacy #[id number], Partial fill upon patient request if the [...] Refills, Maintenance, 07/16/23 10:05:00 EST, Tablet, [facility], Partial fill [...] apex Confirmed Active [facility] Care Management, Vegetable Trimmer Carmenjuliet Elizabeth [phone] Confirmed Active Therapeutic drug monitoring Confirmed Active Peripheral neuropathy Confirmed Active Right spastic hemiparesis Confirmed Active Spasticity Confirmed Active Tobacco dependence Confirmed Active Results Radiology Reports * Exam Date Time Procedure Performing Provider Status 09/22/23 6:[address] Ext Lower W/ Contrast Right Sari Daniel; Chaitanya (Verified) Notes: (CT Ext Lower W/ Contrast Right) Reason For Exam: Gluteal hidrenitis. May need imaging only until knee;Infection RESULT: CT Ext Lower W/ Contrast Right CT Pelvis W/ Contrast, CT Ext Lower W/ Contrast Right Reason: Pain; Order Comment: TECHNIQUE: Helical CT with IV contrast formatted in 3 planes. 100 cc of Omnipaque 300 was administered intravenously. Enteric contrast was not administered. Automatic tube modulation and/or iterativedose reconstruction were used to optimize exposure parameters. CTDIvol Body: 8.15 mGy, DLP Body: 761 mGy*cm. COMPARISON: None FINDINGS: No acute bony abnormality identified. Prominent lymph nodes in the right inguinal region well as along the right iliac chain. These may be related to patient's clinical diagnosis of hidradenitis. Diffuse right posterior skin thickening noted. There are some low-density areas within this area ofskin thickening in the posterior right gluteal/right thigh area which could represent phlegmon or abscess. A discrete drainable collection is not identified. Distribution of the skin thickening measures approximately 20 cm craniocaudal dimension. IMPRESSION: Findings consistent with clinical diagnosis of hidradenitis suppurativa. Overall appearance is relatively similar to previous examinations. Right posterior gluteal skin thickening and skin thickening in the right thigh with possible small subcentimeter scattered areas of phlegmon or abscess. A discrete drainable collection is not identified. Prominent right inguinal and right iliac chain adenopathy. WSN: [id number] Ordering Physician: Claudio Jones Dictated By: Zach Leon MD Dictated Date/Time: 09/22/23 6:25 pm Reviewed By: Zach Leon MD Signed By: Zach Leon MD Signed Date/Time: 09/22/23 6:25 pm Transcribed By: ZEHRA Transcribed Date/Time: 09/22/23 6:14 pm * Exam Date Time Procedure Performing Provider Status 09/22/23 6:[address] Pelvis W/ Contrast Sari Daniel; Auth (Verified) Notes: (CT Pelvis W/ Contrast) Reason For Exam: Pain RESULT: CT Pelvis W/ Contrast CT Pelvis W/ Contrast, CT Ext Lower W/ Contrast Right Reason: Pain; Order Comment: TECHNIQUE: Helical CT with IV contrast formatted in 3 planes. 100 cc of Omnipaque 300 was administered intravenously. Enteric contrast was not administered. Automatic tube modulation and/or iterativedose reconstruction were used to optimize exposure parameters. CTDIvol Body: 8.15 mGy, DLP Body: 761 mGy*cm. COMPARISON: None FINDINGS: No acute bony abnormality identified. Prominent lymph nodes in the right inguinal region well as along the right iliac chain. These may be related to patient's clinical diagnosis of hidradenitis. Diffuse right posterior skin thickening noted. There are some low-density areas within this area ofskin thickening in the posterior right gluteal/right thigh area which could represent phlegmon or abscess. A discrete drainable collection is not identified. Distribution of the skin thickening measures approximately 20 cm craniocaudal dimension. IMPRESSION: Findings consistent with clinical diagnosis of hidradenitis suppurativa. Overall appearance is relatively similar to previous examinations. Right posterior gluteal skin thickening and skin thickening in the right thigh with possible small subcentimeter scattered areas of phlegmon or abscess. A discrete drainable collection is not identified. Prominent right inguinal and right iliac chain adenopathy. WSN: [id number] Ordering Physician: Claudio Jones Dictated By: Zach Leon MD Dictated Date/Time: 09/22/23 6:25 pm Reviewed By: Zach Leon MD Signed By: Zach Leon MD Signed Date/Time: 09/22/23 6:25 pm Transcribed By: ZEHRA Transcribed Date/Time: 09/22/23 6:14 pm Vital Signs Most recent to oldest [Reference Range]: 1 2 3 Height 175 cm (09/24/23 11:04 AM) 175 cm (09/24/23 7:41 AM) 175 cm (09/23/23 12:13 AM) Weight 91.4 kg (09/21/23 8:39 AM) Oxygen Saturation [94-100 %] 92 % *L* (09/24/23 11:04 AM) 97 % (09/24/23 7:41 AM) 95 % (09/23/23 7:00 PM) Pulse Rate [55-90 bpm] 87 bpm (09/24/23 11:04 AM) 70 bpm (09/24/23 7:41 AM) 76 bpm (09/23/23 7:00 PM) Body Mass Index [18.5-24.99 kg/m2] 29.84 kg/m2 *H* (09/21/23 8:39 AM) Blood Pressure [90-138/55-84 mm Hg] 125/70mm Hg (09/24/23 11:04 AM) 133/62mm Hg (09/24/23 7:41 AM) 129/66mm Hg (09/23/23 7:00 PM) Respiratory Rate [16-30 br/min] 18 br/min (09/24/23 11:04 AM) 18 br/min (09/24/23 9:41 AM) 18 br/min (09/24/23 9:02 AM) Temperature [96.8-100.4 DegF] 98.6 DegF (09/24/23 11:04 AM) 98.1 DegF (09/24/23 7:41 AM) 99.3 DegF (09/23/23 7:00 PM) Mode of Delivery (Oxygen) Room air (09/24/23 11:04 AM) Room air (09/24/23 7:41 AM) Room air (09/23/23 7:00 PM) Blood pressure sites Arm, left (09/24/23 11:04 AM) Arm, left (09/24/23 7:41 AM) Arm, right (09/23/23 7:00 PM) Temperature Route Oral (09/24/23 11:04 AM) Oral (09/24/23 7:41 AM) Oral (09/23/23 7:00 PM) Dry Weight 91.4 kg (09/21/23 8:39 AM) Social History Social History Type Response Smoking Status 5-9 cigarettes (betw een / to 1/2 pack)/day in last 30 days entered on: 05/16/22 Sex History and physical note * Saadia PAGAN, Judah Lopze: PERFORM, MODIFY Event Display: History and Physical Hospital Authored Date: [id number] Patient: ??DAVID MCQUEEN ? Age:??38 Years?Sex:??Male?:??1985?? 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 discharge on 09/05?? for acutely infected hidradenitis of right gluteus on 08/20, iron deficiency anemia, thrombocytosis on hydroxyurea, chronic pain syndrome, hypertension, depression presenting to the emergency department worsening??pain He reports??right buttock??pain with the discharge for a long time??but worsening last few weeks, 02/19 intensity.?? He reports no fever and chills, nausea vomiting, headache and dizziness.?? His speech??appears slurred??due to previous??stroke. He smokes 5 cigarettes/day, not interested in??nicotine replacement therapy, smokes marijuana. ?? In ER vitals stable,??labs unremarkable. Blood cultures were sent in ER. Review of Systems All other systems are negative. Objective Vital Signs?? Temperature: 98.3 DegF (09/21/23 08:39:00) Temperature Route: Oral (09/21/23 08:39:00) Pulse Rate: 56 bpm (09/21/23 08:39:00) Respiratory Rate: 16 br/min (09/21/23 11:00:00) Systolic Blood Pressure: 107 mm Hg (09/21/23 08:39:00) Diastolic Blood Pressure:??53 mm Hg??Low (09/21/23 08:39:00) Blood pressure sites: Arm, right (09/21/23 08:39:00) Mean Arterial Pressure: 71 mm Hg (09/21/23 08:39:00) Pulse Pressure: 54 mm Hg (09/21/23 08:39:00) Oxygen Saturation: 100 % (09/21/23 08:00:00) Mode of Delivery (Oxygen): Room air (09/21/23 08:00:00) Early Warning Score: 0 (09/21/23 11:00:38) ? Physical Exam General: Alert, oriented x 3, HEENT: Atraumatic, normocephalic, EOMI, PERRL, anicteric sclera Neck: Supple, trachea midline Respiratory: CTAB, no wheezes, crackles or rhonchi CVS: S1, S2.?? 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 discharge on 09/05?? for acutely infected hidradenitis of right gluteus on 08/20, iron deficiency anemia, thrombocytosis on hydroxyurea, chronic pain syndrome, hypertension, depression presenting to the emergency department worsening??pain. ?Rt buttock Hidradenitis suppurativa (L73.2):??. Intractable pain (R52):?? - Admit to the medical floor. -Presenting with severe intractable pain in the right gluteal/right thigh secondary to hidradenitissuppurativa -Will??increase IV hydromorphone??2 mg every 4 hours as needed for severe pain and taper accordingly -Continue with gabapentin -Wound care has been requested -APS requested - Start IV fluids. ?? History of CVA with residual deficit (I69.30):??hx of left ICA CVA w/ residual right sided hemiparesis. c/w tizanidine as needed for spasm, does not appear to be on statin, rec outpt f/u with PCP ?? Chronic pain syndrome (G89.4):??continue with gabapentin ?? Depression (F32.A):??continue with duloxetine ?? HTN (hypertension) (I10):??Holding amlodipine for soft BPs ?? GERD (gastroesophageal reflux disease) (K21.9):??c/w PPI ?? Iron deficiency anemia (D50.9):??H/H stable ?? Mural thrombus of heart (I51.3):??continue with Eliquis ?? Thrombocytosis (D75.839):??hold hydroxyurea. ?? DVT prophylaxis with Eliquis. ?? Code status: full code. ?? Diet:Cardiac ?? OMN: Pain control with IV Dilaudid, wound and APS consult, IV fluids Histories Allergies Allergies ?(Active and Proposed Allergies Only) NKA? (Severity: Unknown severity, Onset: Unknown) ? Past Medical History/Problem List [facility](19) [facility] Vegetable Trimmer Carmen Elizabeth [phone] Chronic ischemic left ICA stroke Chronic pain [...] Oxycodone (oxyCODONE 5 mg oral tablet)?12.5?Milligram?2.5?tablet?By Mouth?Every 4hours?as needed?Pain , Severe Pantoprazole (pantoprazole 40 mg oral delayed release tablet)?40?Milligram?By Mouth?Daily?for 30?Days Polyethylene Glycol 3350 (MiraLax oral powder for reconstitution)?17?gram?By Mouth?Daily?as needed?Constipation?for 30?Days Tizanidine (tiZANidine 2 mg oral tablet)?4?Milligram?2?tablet?By Mouth?Every 8 hours?as needed?as needed for muscle spasm Triamcinolone Topical (triamcinolone 0.1% topical cream)?1?boyd?Topically?2 times a day?*DO NOT APPLY TO OPEN WOUND(S)* ? Results Recent Labs BLOOD COUNT & DIFF WBC 8.3 k/mm3 ()?? 09/21/2023 05:10 RBC 3.17 m/mm3 (Low)?? 09/21/2023 05:10 Hgb 7.9 Gm/dL (Low)?? 09/21/2023 05:10 Hct 26.9 % (Low)?? 09/21/2023 05:10 MCV 84.9 femtoliters ()?? 09/21/2023 05:10 MCH 24.9 pg (Low)?? 09/21/2023 05:10 MCHC 29.4 g/dL (Low)?? 09/21/2023 05:10 Platelet Count 839 k/mm3 (High)?? 09/21/2023 05:10 RDW-SD 63.1 femtoliters (High)?? 09/21/2023 05:10 MPV 8.3 femtoliters (Low)?? 09/21/2023 05:10 Nucleated RBC (Automated) 0.0 #/100 WBC'S ()?? 09/21/2023 05:10 Abs. NRBC 0.0 k/mm3 ()?? 09/21/2023 05:10 Abs. Neut 5.0 k/mm3 ()?? 09/21/2023 05:10 Abs. Lymph 2.2 k/mm3 ()?? 09/21/2023 05:10 Abs. Wagoner 0.8 k/mm3 ()?? 09/21/2023 05:10 Abs. Eo 0.1 k/mm3 ()?? 09/21/2023 05:10 Abs. Baso 0.0 k/mm3 ()?? 09/21/2023 05:10 Neut % 60.9 % ()?? 09/21/2023 05:10 Lymph % 26.8 % ()?? 09/21/2023 05:10 Wagoner % 10.1 % ()?? 09/21/2023 05:10 Eos % 1.4 % ()?? 09/21/2023 05:10 Baso % 0.4 % ()?? 09/21/2023 05:10 Imm Gran 0.4 % ()?? 09/21/2023 05:10 Abs. Imm Gran 0.0 k/mm3 ()?? 09/21/2023 05:10 ?? CHEM GENERAL Sodium 139 mmol/L ()?? 09/21/2023 05:10 Potassium 4.4 mmol/L ()?? 09/21/2023 05:10 Chloride 104 mmol/L ()?? 09/21/2023 05:10 Bicarbonate Level 25 mmol/L ()?? 09/21/2023 05:10 Anion Gap 10 ()?? 09/21/2023 05:10 Glucose Level 93 mg/dL ()?? 09/21/2023 05:10 BUN 14 mg/dL ()?? 09/21/2023 05:10 Creatinine-Blood 0.85 mg/dL ()?? 09/21/2023 05:10 Estimated GFR Creatinine 115 ML/MIN/1.73 M2 ()?? 09/21/2023 05:10 Calcium 8.8 mg/dL ()?? 09/21/2023 05:10 Lactate 1.8 mmol/L ()?? 09/21/2023 06:25 ?? URINE OTHER Est Creatinine Clearance 118.59 mL/min ()?? 09/21/2023 10:50 ? Hospital Progress note * Tracey Carrera RN: PERFORM, SIGN, VERIFY, SIGN, MODIFY Event Display: Progress Note Hospital Authored Date: Patient: DAVID MCQUEEN Age: 38 years Sex: Male : 1985 Associated Diagnoses: None Author: Tracey Carrera RN Findings Problem Related to Alteration in Comfort : Alteration in Comfort/new 09/24/2023 11:00 EDT Alteration in Comfort Related to Disease process [...] BH Goals/Interventions, Comfort Yes Comfort, Problem Start 09/22/2023 22:08 Reviewed plan with, Comfort Patient Patient Progression, Comfort Pt progressing according to plan Comfort, Problem Ongoing Yes . Discharge Information Case Management Discharge Plan : Case Management Discharge Plan Data 09/24/2023 9:53 EDT Discharge Level of Care at Discharge Homehealth/VNA Discharge VNA/Hospice/Home Care [facility] [phone] Discharge Transportation Arranged [facility] [address] [facility] [phone] Discharge Arranged Transport Date/Time 09/24/2023 12:00 Mode of Transportation Arranged Ambulance Name of Agency #1 [facility] Service Categories #1 Home health aide, Physical Therapy, Longterm Service Comments #1 [facility] Visiting Nurses will resume your home services at discharge and call to schedule a visit with you. If you do not hear from them, please call [phone] 09/21/2023 5:24 EDT Discharge Level of Care at Discharge Home/Penitentiary/Foster Care * Tracey Carrera RN: PERFORM Event Display: Progress Note Hospital Authored Date: [id number] A&OX4. Speech delayed s/p hx L. CVA. R. side hemiparesis. R. hand contractured. LS: CTA. VSS. small to moderate of sangineous exudate to R. gluteal wounds. Area cleansed with NS and pat dried. Applied ABD pad w/ DSD and adhesive applied. Reports 10/10 R. gluteal wounds. PRN oxycodone and diladudid given wtih effect. Repositioned frequently plan to d/c today with home services. All safety measu res in place. Call light within reach. * Lily Santamaria RN: VERIFY, SIGN, PERFORM Event Display: Progress Note Hospital Authored Date: [id number] Patient: DAVID MCQUEEN Age: 38 years Sex: Male : 1985 Associated Diagnoses: None Author: Lily Santamaria RN Findings Problem Related to Alteration in Comfort : Alteration in Comfort/new 09/22/2023 22:00 EDT Goals & Outcomes: Comfort Pt will report acceptable level of comfort & pain control, Pt will state importance of adhering to pain strategy regime, Pt will demonstrate necessary skills to manage pain . Alteration in Integumentary : Alteration in Integumentary/new 09/23/2023 22:00 EDT Interventions, Integumentary Cleanse all wounds with Normal Saline, Encourage & assist pt to change position frequently, Encourage & assist with range of motion exercises,Keep linen clean, dry and wrinkle free, Keep skin clean & dry . Evaluation Received pt on bed, A+Ox4, pt c/o 02/19 on Dilaudid and oxycodone with good effect. Not in respiratory distressss. Dressing on buttocks area, dry and intact. No indication for surgery and weaning offwith Dilaudid. Possible discharge today. Bed at lowest position and locked. Call [facility]. Needs attended. . Discharge Information Case Management Discharge Plan : Case Management Discharge Plan Data 09/21/2023 5:24 EDT Discharge Level of Care at Discharge Home/Penitentiary/Foster Care * Jeanne Bryant RN: VERIFY, PERFORM, SIGN Event Display: Progress Note Hospital Authored Date: [id number] Patient: DAVID MCQUEEN Age: 38 years Sex: Male : 1985 Associated Diagnoses: None Author: Jeanne Bryant RN Findings Problem Related to Alteration in Integumentary : Alteration in Integumentary/new 09/23/2023 19:00 EDT Alteration in Integumentary Related to Other: Hiradenitis suppurativa, S/P I and D on R Gluteal Region Goals & Outcomes, Integumentary Nutritional intake is adequate for metabolic needs, Pt will maintain adequate fluid & nutritional balance, Pt will maintain intact skin integrity Interventions, Integumentary Cleanse all wounds with Normal [...] areas appear, Interdisciplinary consults as appropriate, Keep linen clean, dry and wrinkle free, Keep skin clean & dry, Maintain sterile technique with dressing changes, Minimize friction, shear and moisture, Monitor reddened areas for continued or increasing reddness, Record extent of impaired skin integrity, Relieve pressure off bony areas BH Goals/Interventions, Integumentary Yes Integumentary, Problem Start 09/21/2023 8:30 Reviewed plan with, Integumentary Patient Patient Progression, Integumentary Pt progressing according to plan . Evaluation Patient alert oriented X4. Reports 10/10 pain to right gluteal, PRN oxycodone and IV hydromorphne administered with positive respone. LS clear on RA, deneis SOB. Deneis N/V/D. Patient bedfast at baseline. PT. Continues to have drainage from the gluteal wound dressing changed PRN. Iv site WNL. IVF infusing per roder . Tolerating PO intake and fluids. +BS in all quadrants. voiding in urinal clear yello urine. Medicated per order. Patient in room bed locked and in lowest psitio call mariee within reach ourly rounds maintained. . Discharge Information Case Management Discharge Plan : Case Management Discharge Plan Data 09/21/2023 5:24 EDT Discharge Level of Care at Discharge Home/Penitentiary/Foster Care Consult note * Rafael Blank MD: PERFORM Event Display: Consultation Note Authored Date: [id number] Patient: ??DAVID MCQUEEN ? Age:??38 Years?Sex:??Male?:??1985?? Chief Complaint/Reason for Consult Right gluteus hidradenitis suppurativa History of Present Illness David Mcqueen is a 38M??with history of left ICA stroke??(right-sided hemiparesis), mural thrombuson Eliquis, anemia, GERD and??hidradenitis of the bilateral gluteus s/p recent R gluteus debridement (08/20 GR) who is currently admitted??to the medical service with right gluteal pain??for home surgery is being consulted for evaluation??of??progression??of disease.?? Since surgery??in mid August, patient??has been readmitted to the hospital twice due to worsening pain.?? Patient denied??any??fevers or chills, just endorsing significant discomfort and itchiness??from the sites.?? He reports??that??acutely over the last few days,??his right gluteus??has had worsening pain??and drainage. Review of Systems Constitutional:??No weight loss, fever, chills, weakness or fatigue. Respiratory: No SOB, cough, or dyspnea Cardiovascular: No chest pain, flutters or palpitations?? Gastrointestinal:??No N/V, pain, diarrhea or constipation Genitourinary:??No frequency or burning with urination. Neurologic:??No ARAMBULA, dizziness, syncope,??no changes in motor or sensory function.??No change in bowel or bladder control. Skin:??Right gluteus hidradenitis??with significant pain. Endocrine:??No heat or cold intolerance. Psychiatric:??No depression or anxiety. Physical Exam Vitals & Measurements T:??98.3?F?? HR:??66??(Peripheral)?? RR:??18?? BP:??123/69?? SpO2:??100%?? HT:??175??cm?? WT:??91.4??kg?? BMI:??29.84?? Constitutional: Well appearing, no acute distress. HEENT: Normocephalic, atraumatic, PERRL,??moist mucous membranes. Respiratory: Normal WOB, CTA b/l. Cardiovascular: Audible S1 S2 regular. Abdominal: Soft, non-tender, non-distended. No pulsatile mass. No hepatosplenomegaly. Neurologic: Cranial nerves II-XII intact. Motor and sensation grossly intact b/l. Extremities: Right upper and lower extremity hemiparesis. Skin: Right gluteus??with??chronic soft tissue induration,??prior sites of I&D with??granulation tissue and drainage of??serous??to seropurulent fluid.?? Equivocal focus of fluctuance in the mid gluteus (difficult to discern due to swelling).?? No cellulitis. Assessment/Plan David Mcqueen is a 38M??with history of left ICA stroke??(right-sided hemiparesis), mural thrombuson Eliquis, anemia, GERD and??hidradenitis of the bilateral gluteus s/p recent R gluteus debridement (08/20 GR) who is currently admitted??to the medical service with right gluteal pain??for whom surgery is being consulted for evaluation??of progressive hydradenitis. ??Since last discharge??in August,??patient has represented twice to the hospital with??acute on chronic pain.?? His most??recent??episode of pain??started??approximately??5 days ago characterized by throbbing pain and itchiness.?? On exam??there are several??open sites with active drainage of serous to seropurulent fluid,??with nodiscrete??area??of fluctuance.?? However exam is very limited due to chronic??inflammatory changes and soft tissue induration.?? In order to further delineate??if patient has an underlying abscess, will require??CT scan.?? As area in question does not have cellulitic changes,??and??patient??does not show systemic signs of infection??and??has no leukocytosis,??no role for antibiotics. ?? Diagnosis 1. ??Hidradenitis suppurativa ?? Recommendations ?CT pelvis/extremity ??? Operative planning based on??CT scan ??? No evidence of cellulitis??that merits antibiotics ?Pain control per primary ?Discussed with Dr. Alina HURT [id number] ?? Problem List/Past Medical History Right??ICA stroke Intramural cardiac thrombus Hidradenitis Anemia GERD Procedure/Surgical History Right gluteus incision and drainage (08/20) Home Medications Amlodipine: 5 mg = 1 [...] 2.5 tablet, By Mouth, Every 4 hours, PRN (Pain , Severe) Pantoprazole: 40 mg, By Mouth, Daily Polyethylene Glycol 3350: 17 Gm, By Mouth, Daily, PRN (Constipation) Tizanidine: 4 mg = 2 tablet, By [...] History Mother: Asthma Brother: Asthma Lab Results BACTERIOLOGY Blood Culture Results Preliminary report ()?? 09/21/2023 06:25 Blood Culture Isolate 1 Comment ()?? 09/21/2023 06:25 Blood Cult 2 Results Preliminary report ()?? 09/21/2023 06:25 Blood Culture 2 Isolate 1 Comment ()?? 09/21/2023 06:25 ?? BLOOD COUNT & DIFF WBC 8.3 k/mm3 ()?? 09/21/2023 05:10 RBC 3.17 m/mm3 (Low)?? 09/21/2023 05:10 Hgb 7.9 Gm/dL (Low)?? 09/21/2023 05:10 Hct 26.9 % (Low)?? 09/21/2023 05:10 MCV 84.9 femtoliters ()?? 09/21/2023 05:10 MCH 24.9 pg (Low)?? 09/21/2023 05:10 MCHC 29.4 g/dL (Low)?? 09/21/2023 05:10 Platelet Count 839 k/mm3 (High)?? 09/21/2023 05:10 RDW-SD 63.1 femtoliters (High)?? 09/21/2023 05:10 MPV 8.3 femtoliters (Low)?? 09/21/2023 05:10 Nucleated RBC (Automated) 0.0 #/100 WBC'S ()?? 09/21/2023 05:10 Abs. NRBC 0.0 k/mm3 ()?? 09/21/2023 05:10 Abs. Neut 5.0 k/mm3 ()?? 09/21/2023 05:10 Abs. Lymph 2.2 k/mm3 ()?? 09/21/2023 05:10 Abs. Wagoner 0.8 k/mm3 ()?? 09/21/2023 05:10 Abs. Eo 0.1 k/mm3 ()?? 09/21/2023 05:10 Abs. Baso 0.0 k/mm3 ()?? 09/21/2023 05:10 Neut % 60.9 % ()?? 09/21/2023 05:10 Lymph % 26.8 % ()?? 09/21/2023 05:10 Wagoner % 10.1 % ()?? 09/21/2023 05:10 Eos % 1.4 % ()?? 09/21/2023 05:10 Baso % 0.4 % ()?? 09/21/2023 05:10 Imm Gran 0.4 % ()?? 09/21/2023 05:10 Abs. Imm Gran 0.0 k/mm3 ()?? 09/21/2023 05:10 ?? CHEM GENERAL Sodium 139 mmol/L ()?? 09/21/2023 05:10 Potassium 4.4 mmol/L ()?? 09/21/2023 05:10 Chloride 104 mmol/L ()?? 09/21/2023 05:10 Bicarbonate Level 25 mmol/L ()?? 09/21/2023 05:10 Anion Gap 10 ()?? 09/21/2023 05:10 Glucose Level 93 mg/dL ()?? 09/21/2023 05:10 BUN 14 mg/dL ()?? 09/21/2023 05:10 Creatinine-Blood 0.85 mg/dL ()?? 09/21/2023 05:10 Estimated GFR Creatinine 115 ML/MIN/1.73 M2 ()?? 09/21/2023 05:10 Calcium 8.8 mg/dL ()?? 09/21/2023 05:10 Lactate 1.8 mmol/L ()?? 09/21/2023 06:25 ?? URINE OTHER Est Creatinine Clearance 118.59 mL/min ()?? 09/21/2023 10:50 ?? Note * Stephon Ortiz RN: PERFORM Event Display: Discharge/Transfer Note Hospital Authored Date: Nursing Discharge Note Entered On: 09/24/2023 13:06 EDT Performed On: 09/24/2023 13:06 EDT by Stephon Ortiz RN Nursing Discharge Note 2 Discharge Comments : No IV's noted on arrival to Stephon Ortiz RN - 09/24/2023 13:07 EDT Discharge Time : 09/24/2023 12:10 EDT Discharge Level of Care at Discharge : Homehealth/VNA Discharge VNA/Hospice/Home Care(v001) : [facility] [phone] Patient Left Unit Via : Ambulance Patient Accompanied Off Unit with : Ambulance/Chair Van Personnel Handover Given to Transport Personnel : Yes DC Instructions Provided & Signed by Pt : Yes Patient Understands D/C Instructions : Yes Verbalized Understanding of D/C Plan By : Patient Patient Instructions Discharge Signed : Yes Did Pt have Specialty Bed or Wound Vac : No Stephon Ortiz RN - 09/24/2023 13:06 EDT * Claudio Jones MD: PERFORM, MODIFY Event Display: Discharge/Transfer Note Hospital Authored Date: Patient: ??DAVID MCQUEEN ? Age:??38 Years?Sex:??Male?:??1985?? Patient Information Discharge Location: S1 Primary Care Physician: Derek Tomas MD Admit Date/Time: 09/21/23 07:44 Discharge Disposition Discharge Disposition: Home with Home Health Discharge Diagnosis Hidradenitis suppurativa (L73.2) _ Discharge Medications Amlodipine (amLODIPine 5 mg [...] Oxycodone (oxyCODONE 20 mg oral tablet)?1?tab(s)?20?Milligram?By Mouth?Every 6 hours?as needed?as needed for pain?for 3?Days ( can take 1 to 1 and half tablet (30mg) as needed or even lower based on intensity of pain) Pantoprazole (pantoprazole 40 mg oral delayed release tablet)?40?Milligram?By Mouth?Daily?for 30?Days Polyethylene Glycol 3350 (MiraLax oral powder for reconstitution)?17?gram?By Mouth?Daily?as needed?Constipation?for 30?Days Tizanidine (tiZANidine 2 mg oral tablet)?4?Milligram?2?tablet?By Mouth?Every 8 hours?as needed?as needed for muscle spasm Triamcinolone Topical (triamcinolone 0.1% topical cream)?1?boyd?Topically?2 times a day?*DO NOT APPLY TO OPEN WOUND(S)* ? Inpatient Medications Medications (17) Active SCHEDULED: (7) Apixaban 5 mg Tablet (Eliquis) ??5 mg, By Mouth, 2 times a day Duloxetine [...] mg, By Mouth, 3 times a day NaCl 0.9% Flush 3ml (NaCL 0.9% Flush) ??3 mL, IV Push, Every 8 hours Pantoprazole 40 mg EC Tablet (pantoprazole 40 mg oral delayed release tablet) ??40 mg, By Mouth, Daily CONTINUOUS: (0) PRN: (10) Acetaminophen 325 mg Tablet (Acetaminophen Tablet) [...] ??30 mg, By Mouth, Every 4 hours Polyethylene Glycol 17 Gm Powder (MiraLax Powder) ??17 Gm 1 pack/packet, By Mouth, Daily Senna Tablet ??8.6 mg 1 tablet, By Mouth, 2 times a day Simethicone 80 mg Chewable Tablet (Simethicone Tablet) ??80 mg, Chew, 3 times a day Tizanidine 4 mg Tablet (tiZANidine 4 mg oral tablet) ??4 mg, By Mouth, Every 8 hours ? Vaccinations and Immunoprophylaxis influenza virus vaccine, inactivated: 0.5 mL (05/18/22 08:04:00) tetanus/diphtheria/pertussis, acel(Tdap): 0.5 Unknown (09/13/19 08:00:00) ? Allergies Allergies ?(Active and Proposed Allergies Only) NKA? (Severity: Unknown severity, Onset: Unknown) ? Hospital Course 38-year-old male with history of left ICA stroke with residual right-sided spastic hemiparesis and dysarthria, mural thrombus of cardiac apex on Eliquis, severe hidradenitis s/p Right buttock hidradenitis excision by plastic surgery at [facility] in 03/04 follows with plastic surgery and dermatology, recent discharge on 09/05 for acutely infected hidradenitis of right gluteus on 08/20, iron deficiency anemia, thrombocytosis on hydroxyurea, chronic pain syndrome, hypertension, depression presenting to the emergency department worsening pain. ? Rt buttock Hidradenitis suppurativa (L73.2): . Intractable pain (R52): ?-No fever, leukocytosis or discharge noted. -??Due to intractable??pain surgery was consulted??and after getting a repeat CAT scan abdomen/right lower leg there was no??collection??and changes have been chronic. He was not started on antibiotics this admission -APS was consulted and??based on the recommendation meds have been adjusted,??will be discharged onoxycodone 20 mg. ? 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 c/w tizanidine as needed for spasm, does not appear to be on statin, rec outpt f/u with PCP ?Chronic pain syndrome (G89.4):??continue with gabapentin, oxy ?Depression (F32.A): continue with duloxetine ? HTN (hypertension) (I10): Holding amlodipine for soft BPs ? Objective Measurements?? Height: 175 cm (09/24/23) Weight: 91.4 kg (09/21/23) Dry Weight: 91.4 kg (09/21/23) Body Mass Index:??29.84 kg/m2??High (09/21/23) ? Vital Signs?? Temperature: 98.1 DegF (09/24/23 07:41:00) Temperature Route: Oral (09/24/23 07:41:00) Pulse Rate: 70 bpm (09/24/23 07:41:00) Respiratory Rate: 18 br/min (09/24/23 09:41:00) Systolic Blood Pressure: 133 mm Hg (09/24/23 07:41:00) Diastolic Blood Pressure: 62 mm Hg (09/24/23 07:41:00) Blood pressure sites: Arm, left (09/24/23 07:41:00) Mean Arterial Pressure: 86 mm Hg (09/24/23 07:41:00) Pulse Pressure: 71 mm Hg (09/24/23 07:41:00) Oxygen Saturation: 97 % (09/24/23 07:41:00) Mode of Delivery (Oxygen): Room air (09/24/23 07:41:00) Early Warning Score: 0 (09/24/23 09:43:55) ? Intake/Output? 09/20 07:44 09/23 07:00 09/22 07:00 09/21 07:00 09/20 07:00 ?? 09/23 09:59 09/23 09:59 09/23 06:59 09/22 06:59 09/21 06:59 Intake ? 3621 ?0 ? 1101 ? 1255 ? 1265 Output ? 5450 ?0 ? 1900 ? 1550 ? 2000 Net Total ?-1829 ?0 ? -799 ? -295 ? -735 ? Prim Coma Scale Prim Coma Score: 15 (09/22/23 07:00:00) Motor Response-Adult: Obeys commands (09/22/23 07:00:00) Response Eye Opening: Spontaneously (09/22/23 07:00:00) Verbal Response-Adult: Oriented and converses (09/22/23 07:00:00) ?? . Physical Exam Pending Results No Pending Results Patient Instructions You came to the hospital with complaints of??right buttock pain. ??You are being placed on IV medications for pain control and later on??transition to??p.o. oxycodone. ??He will be discharged home today.?? Surgery??saw you and you all we also got CAT scan of your belly and wound??and??no surgical intervention was needed to be done. Home Health Face to Face *Denotes mandatory burton ?? *I certify that this patient is under my care and that I or an allowed non- physician working with me had a face to face encounter with the patient on this date:??09/24/2023 09:59 ?? *The encounter with the patient was in whole, or in part, for the following medical condition, which is the primary diagnosis(es) for home health care:??Hidradenitis suppurativa (L73.2) ?? *Select the indications for the discipline/s that are being arranged for this patient. Nursing (select all that apply): [_] None [y_] Medication management (reconciliation, teaching)?? [_] Chronic disease management?? [_] Wound care and treatment?? [_] Home safety evaluation [_] Administer SQ/IM/IV medications?? [_] Cath care?? [_] Drain care?? [_] Trach or GT care?? Other _ Occupation Therapy (select all that apply): [_] None [_] ADL Management [_] Fall prevention training [_] Energy conservation [_] Cognitive training Other _ Physical Therapy (select all that apply): [_] None [y_] Functional mobility training [y_] Home exercise program to strengthen [_] Increase [...] Inability to ambulate without assistance [_] Pain [y_] Decreased strength and endurance [_] Unsteady gait [_] Severe SOB and fatigue [_] Impaired transfers [_] Inability to negotiate stairs [_] Limited weight bearing [_] Mental status change? *Physician Signature: Claudio oviedo ?? *By signing this, I certify that I have personally evaluated the patient and agree with the findings and recommendations as documented above. ? thFTF Results Discharge Labs BACTERIOLOGY Blood Culture Results Preliminary report ()?? 09/21/2023 06:25 Blood Culture Specimen Source BLOOD ()?? 09/21/2023 06:25 Blood Culture Isolate 1 Comment ()?? 09/21/2023 06:25 Blood Cult 2 Results Preliminary report ()?? 09/21/2023 06:25 Blood Culture 2 Specimen Source BLOOD ()?? 09/21/2023 06:25 Blood Culture 2 Isolate 1 Comment ()?? 09/21/2023 06:25 ?? BLOOD COUNT & DIFF WBC 8.3 k/mm3 ()?? 09/21/2023 05:10 RBC 3.17 m/mm3 (Low)?? 09/21/2023 05:10 Hgb 7.9 Gm/dL (Low)?? 09/21/2023 05:10 Hct 26.9 % (Low)?? 09/21/2023 05:10 MCV 84.9 femtoliters ()?? 09/21/2023 05:10 MCH 24.9 pg (Low)?? 09/21/2023 05:10 MCHC 29.4 g/dL (Low)?? 09/21/2023 05:10 Platelet Count 839 k/mm3 (High)?? 09/21/2023 05:10 RDW-SD 63.1 femtoliters (High)?? 09/21/2023 05:10 MPV 8.3 femtoliters (Low)?? 09/21/2023 05:10 Nucleated RBC (Automated) 0.0 #/100 WBC'S ()?? 09/21/2023 05:10 Abs. NRBC 0.0 k/mm3 ()?? 09/21/2023 05:10 Abs. Neut 5.0 k/mm3 ()?? 09/21/2023 05:10 Abs. Lymph 2.2 k/mm3 ()?? 09/21/2023 05:10 Abs. Wagoner 0.8 k/mm3 ()?? 09/21/2023 05:10 Abs. Eo 0.1 k/mm3 ()?? 09/21/2023 05:10 Abs. Baso 0.0 k/mm3 ()?? 09/21/2023 05:10 Neut % 60.9 % ()?? 09/21/2023 05:10 Lymph % 26.8 % ()?? 09/21/2023 05:10 Wagoner % 10.1 % ()?? 09/21/2023 05:10 Eos % 1.4 % ()?? 09/21/2023 05:10 Baso % 0.4 % ()?? 09/21/2023 05:10 Imm Gran 0.4 % ()?? 09/21/2023 05:10 Abs. Imm Gran 0.0 k/mm3 ()?? 09/21/2023 05:10 ?? CHEM GENERAL Sodium 139 mmol/L ()?? 09/21/2023 05:10 Potassium 4.4 mmol/L ()?? 09/21/2023 05:10 Chloride 104 mmol/L ()?? 09/21/2023 05:10 Bicarbonate Level 25 mmol/L ()?? 09/21/2023 05:10 Anion Gap 10 ()?? 09/21/2023 05:10 Glucose Level 93 mg/dL ()?? 09/21/2023 05:10 Glucose, POC 151 mg/dL (High)?? 09/24/2023 07:22 BUN 14 mg/dL ()?? 09/21/2023 05:10 Creatinine-Blood 0.85 mg/dL ()?? 09/21/2023 05:10 Estimated GFR Creatinine 115 ML/MIN/1.73 M2 ()?? 09/21/2023 05:10 Calcium 8.8 mg/dL ()?? 09/21/2023 05:10 Lactate 1.8 mmol/L ()?? 09/21/2023 06:25 ?? URINE OTHER Est Creatinine Clearance 118.59 mL/min ()?? 09/21/2023 10:50 ? Blood Glucose Trend Glucose, POC:??151 mg/dL??High (09/24/23 07:22:00) Glucose, POC:??110 mg/dL??High (09/23/23 20:56:00) Glucose, POC:??111 mg/dL??High (09/23/23 16:01:00) Glucose, POC:??145 mg/dL??High (09/23/23 11:16:00) ? 40 minutes spent on discharge * Angel BUSTAMANTE, Stephon Dunn: PERFORM, MODIFY, MODIFY Event Display: Patient Education/Instruction Authored Date: [id number] Inpatient Adult Discharge Instructions. [address] [id number] Name: DAVID MCQUEEN : 1985?? Visit: 09/21/2023 07:44?? Current Date: 09/24/2023 10:34 ?? Account: [id number]?? Inpatient Adult Discharge Instructions We would like [...] and their families. Surveys are administered by [employer] ?? If further treatment with your primary care physician or another doctor is recommended, it is important for you to keep the appointment. Call your primary care physician or return to the Emergency Department immediately if your condition worsens, fails to improve, or new symptoms develop. If you need to find a doctor, you can call [facility] for a referral at [phone] or toll free at [phone] or log in to [email or web address].. ?? [facility], in keeping with [facility] guidance, no longer requires face masks [...] a health care boyd of your choosing. [employer] [facility] [employer] is a website that allows you to securely view your medical information including your hospital discharge summary, office visit summaries, medications and follow-up visits. You can also request appointments, renew medications, and request access to your medical information using a health care boyd of your choosing, or just ask a question. You can enroll at [email or web address] or register during your next office visit. You have been discharged from [facility], Patient Care Unit: S3??. If you have any questions regarding these instructions, including results of studies pending, afteryou leave, please call us and we will be happy to assist you 03/12. [facility] Your Care Team Attending Physician Claudio Jones MD?? Consulting Providers Claudio Jones MD?? Discharging Providers Claudio Jones MD Reason for Your Visit skin graft month ago from wound on R buttock and upper thigh, pain hasnt gotten better, drainage ofblood and puss thinks its infected denies fevers nausea, R sided hemiparisis from previous stroke?? Your Diagnosis General medical Tests Performed Below is a partial list of the tests performed during your hospitalization. You may have had other tests and procedures not included in this list. Please discuss all test results with your provider. Basic Metabolic Panel Blood Culture Blood Culture #2 Blood Culture 2 Results Blood Culture Result CBC w/ Differential GLUCOSE POC Lactate Level CT Ext Lower W/ Contrast Right CT Pelvis W/ Contrast No tests performed during this visit.?? Primary Care Provider Derek Tomas MD? Advance Directive Health Care Proxy on File Yes - Health Care Proxy Discharge Vitals Temperature: 98.1 DegF Height: 175 cm Pulse Rate: 70 bpm Weight: 91.4 kg Respiratory Rate: 18 br/min Body Mass Index:??29.84 kg/m2??High Systolic Blood Pressure: 133 mm Hg Body surface area: 2.11 Diastolic Blood Pressure: 62 mm Hg ?? Oxygen Saturation: 97 % ?? Studies Pending All studies ordered during this hospital stay have been completed unless listed below. Please discuss all pending results with your provider listed above in these instructions. ?? No incomplete studies found?? What to do next Instructions From Your Doctor You came to the hospital with complaints of??right buttock pain. ??You are being placed on IV medications for pain control and later on??transition to??p.o. oxycodone. ??He will be discharged home today.?? Surgery??saw you and you all we also got CAT scan of your belly and wound??and??no surgical intervention was needed to be done. ?? Orders? 09/24/23 10:00:00 EDT?? You Need to Schedule the Following Appointments Follow Up with??follow up with PCP within 1 week Follow Up with??Derek Tomas When:??In 0 days Where: [address] [facility] [place] [address]- Business (1) Discharge Medications DAVID MCQUEEN :1985 Visit Date:09/21/2023 Medications: Please continue your medications until treatment is completed or stopped by your provider. Medications not listed below should be discontinued. Discuss any questions related to medications with your provider. What How Much When Why Instructions Next Dose Changed Ferrous Sulfate (FeroSul 325 mg oral tablet) 1 tab(s) Oral Twice a day 09/24/23 9pm Changed Folic Acid (folic acid 1 mg oral tablet) 1 tab(s) Oral Daily 09/25/23 9am Changed Oxycodone (oxyCODONE 20 mg oral tablet) 1 tab(s) Oral Every 6 hours as needed for as needed for pain Duration: 3 Days Pickup at [facility] 3 may take 1 1/2 tablets if needed per Dr. Jones FOR 2 DAYS;??PLEASE FOLLOW UP WITH BUSINESS TRANSFORMATION ANALYST FOR REFILLS FOR OXYCODONE 09/24/23 anytime after 3pm Changed apixaban (Eliquis 5 mg oral tablet) 1 tab(s) Oral Twice a day 09/24/23 9pm Unchanged Amlodipine (amLODIPine 5 mg oral tablet) 1 tab(s) Oral Daily 09/25/23 9am Unchanged Ascorbic Acid (ascorbic acid 500 mg oral tablet) 1 tab(s) Oral Daily 09/25/23 9am Unchanged Baclofen (baclofen 20 mg oral tablet) 1 tab(s) Oral 4 times a day 09/24/23 1pm Unchanged Cholecalciferol (Vitamin D3 1000 intl units oral tablet) 1 tab(s) Oral Daily 09/25/23 9am Unchanged Docusate (docusate sodium 100 mg oral capsule) 1 capsule Oral Twice a day 09/24/23 9pm Unchanged Duloxetine (duloxetine 30 mg oral enteric coated capsule) 1 capsule Oral Daily Duration: 30 Days TAKE 1 CAPSULE BY MOUTH EVERY DAY ?? 09/25/23 9am Unchanged Durable Medical Equipment (Vashe wound solution) See instructions Hydradenitis Use 45mL daily ?? Unchanged Gabapentin (gabapentin 600 mg oral tablet) 1 tab(s) Oral 3 times a day 09/24/23 3pm Unchanged Hydroxyurea (hydroxyurea 500 mg oral capsule) 500 Milligram Oral Daily Duration: 30 Days 09/25/23 9am Unchanged nalOXONE (Narcan 4 mg/ 0.1 mL nasal spray) 1 spray(s) Nares, Both Once To be used use one spray in one nostril. if an additional dose is needed, alternate nostril. may repeat every 2 to 3 minutes until patient responds ?? as needed Unchanged Pantoprazole (pantoprazole 40 mg oral delayed release tablet) 40 Milligram Oral Daily Duration: 30 Days 09/25/23 9am Unchanged Polyethylene Glycol 3350 (MiraLax oral [...] *DO NOT APPLY TO OPEN WOUND(S)* ?? 09/24/23 9pm [facility]: [address], [place] [phone] Prescription Given During Visit Oxycodone (oxyCODONE 20 mg oral tablet) - 1 tablet = 20 mg, By Mouth, Every 6 hours, # 12 tablet, 0Refills, [facility] [address], [address] [place] [address] [phone]?? Laboratory Results Below is a partial list of the most recent Laboratory test results done prior to this discharge. You may have had other tests and procedures not included in this list. Please discuss all test resultswith your provider. Est Creatinine Clearance - 118.59 mL/min (09/21/2023) Basic Metabolic Panel (09/21/2023) ???Sodium - 139 mmol/L???Potassium - 4.4 mmol/L???Chloride - 104 mmol/L???Bicarbonate Level - 25 mmol/L???Anion Gap - 10???Glucose Level - 93 mg/dL???BUN - 14 mg/dL???Creatinine-Blood - 0.85 mg/dL???Estimated GFR Creatinine - 115 ML/MIN/1.73 M2???Calcium - 8.8 mg/dL Blood Culture (09/21/2023) ???Blood Culture Results - Preliminary report???Blood Culture Specimen Source - BLOOD Blood Culture #2 (09/21/2023) ???Blood Cult 2 Results - Preliminary report???Blood Culture 2 Specimen Source - BLOOD Blood Culture 2 Results (09/21/2023) ???Blood Culture 2 Isolate 1 - Comment Blood Culture Result (09/21/2023) ???Blood Culture Isolate 1 - Comment CBC w/ Differential (09/21/2023) ???WBC - 8.3 k/mm3???RBC - 3.17 m/mm3???Hgb - 7.9 Gm/dL???Hct - 26.9 %???MCV - 84.9 femtoliters???MCH - 24.9 pg???MCHC - 29.4 g/dL???Platelet Count - 839 k/mm3???RDW-SD - 63.1 femtoliters???MPV - 8.3femtoliters???Nucleated RBC (Automated) - 0.0 #/100 WBC'S???Abs. NRBC - 0.0 k/mm3???Abs. Neut - 5.0 k/mm3???Abs. Lymph - 2.2 k/mm3???Abs. Wagoner - 0.8 k/mm3???Abs. Eo - 0.1 k/mm3???Abs. Baso - 0.0 k/mm3???Neut % - 60.9 %???Lymph % - 26.8 %???Wagoner % - 10.1 %???Eos % - 1.4 %???Baso % - 0.4 %???Imm Gran- 0.4 %???Abs. Imm Gran - 0.0 k/mm3 GLUCOSE POC (09/24/2023) ???Glucose, POC - 151 mg/dL Lactate Level (09/21/2023) ???Lactate - 1.8 mmol/L Allergies (NKA means No Known Allergies) NKA Problems Active Problems??(19) [facility], Vegetable Trimmer Carmen Elizabeth [phone]?? Chronic ischemic left ICA stroke?? Chronic pain?? [...] Belongings I fully understand and agree that [facility] accepts no responsibility for all my [...] ?? Date for Pt to Sign Valuables/Belongings: 09/21/23 11:01:00 ?? Other Discharge Information ? Case Management Discharge Plan?? Discharge Plan?? Discharge Agency Information?? Discharge Level of Care at Discharge: Homehealth/VNA Name of Agency #1: [facility] Discharge Rx Program: Discharge Prescription Program Service Categories #1: Home health aide, Physical Therapy, Longterm Discharge Rx Program: Discharge Prescription Program Service Comments #1: [facility] Visiting Nurses will resume ??your home services at discharge and call to schedule a visit with you. If you do not hear from them, please call [phone] Discharge Transportation Arranged: [facility] [address] [facility] [phone] ?? Mode of Transportation Arranged: Ambulance ?? Discharge Arranged Transport Date/Time: 09/24/23 12:00:00 ?? Discharge VNA/Hospice/Home Care: [facility] [phone] ? Pulmonary Rehab Status?? Pulmonary Rehab Discharge [...] strongly encouraged to quit. Please call [facility] [employer] Link at [phone] or [phone] ([phone]) or log in to [email or web address] for referrals to smoking cessation programs. ?? 763 Suicide & Crisis Lifeline is available 03/12 if you or someone you know needs to find a reason to keep living. By calling 843 you'll be connected to a skilled, trained counselor at a crisis center in your area. INPATIENT DISCHARGE INSTRUCTIONS SIGNATURE PAGE DAVID MCQUEEN Location:[facility] Registration Date and Time:09/21/2023 07:44 EDT Primary Care Physician: Genoveva PAGAN, Derek, Attending Physician: Karen PAGAN, Claudio, I DAVID MCQUEEN, have received the above patient education materials/instructions and have verbalized understanding. If ambulance or transport services are being used I further acknowledge being given a choice of service. ?? If you need to contact me, please call me at this number: . Patient/Brick Machine Operator Name: Patient/Brick Machine Operator Signature: Relationship to Patient: Witness Name/Signature: Date: * Setphon Ortiz RN B: PERFORM, SIGN, VERIFY Event Display: Patient Education Handout Authored Date: Patient Care team information Care Team Personnel Name: Anu Lipscomb Position: [facility] RN Member Role: Primary Care Nurse Name: Jeanne Bryant RN Position: [facility] RN Member Role: Primary Care Nurse Name: Areli Pittman RN Position: [facility] ED RN W/OE and Tasks Member Role: Primary Care Nurse Name: Derek Tomas MD Position: [facility] Resident Member Role: PCP Address: Address: [address] [place] [id number] Name: Monique Irwin LPN Position: S RN Member Role: Primary Care Nurse Name: Lianna Epstein RN Position: S RN Member Role: Primary Care Nurse Name: Vicenta Barnett RN Position: S RN Member Role: Primary Care Nurse Name: Farhana Garcia RN Position: S RN Member Role: Primary Care Nurse Name: Ricardo Russell RN Position: [facility] RN Member Role: Primary Care Nurse Name: Gissell Jernigan RN Position: [facility] RN Member Role: Primary Care Nurse Name: Farhana Green RN Position: S RN Member Role: Primary Care Nurse Name: Cydney Delgado RN Position: S RN Member Role: Primary Care Nurse Name: Sharon Mendez RN Position: [facility] RN Member Role: Primary Care Nurse Name: Mookie Christianson RN Position: [facility] RN Member Role: Primary Care Nurse Name: Ally Boyd RN Position: [facility] RN Member Role: Primary Care Nurse Name: Javed Oneill RN Position: [facility] RN Member Role: Primary Care Nurse Name: Lynn Stewart RN Position: [facility] RN Member Role: Primary Care Nurse Name: Amanda Johnson RN Position: [facility] RN Member Role: Primary Care Nurse Name: Jolie Villalobos RN Position: [facility] RN Member Role: Primary Care Nurse Name: Axel Savage RN Position: [facility] RN Member Role: Primary Care Nurse Name: Dirk Driver RN Position: [facility] RN Member Role: Primary Care Nurse Name: Glenys Bee RN Position: [facility] RN Member Role: Primary Care Nurse Name: Praveen Maurer Position: [facility] RN Member Role: Primary Care Nurse Name: Filemon King RN Position: [facility] RN Member Role: Primary Care Nurse Name: Lauren Guevara RN Position: [facility] RN Member Role: Primary Care Nurse Name: Annamaria Quinn RN Position: [facility] RN Member Role: Primary Care Nurse Name: Jada Waller RN Position: [facility] RN Member Role: Primary Care Nurse Name: Lashawn Nagy RN Position: [facility] RN Member Role: Primary Care Nurse Name: Jacquelin Naranjo RN Position: [facility] RN Member Role: Primary Care Nurse Name: Glenys Fox RN Position: [facility] RN Member Role: Primary Care Nurse Care Team Related Persons Name: JUHI BEVERLY Address: [place] [address] Name: AISLINN DE LA PAZ Address: [address] [place] [address]
--- OUTSIDE RECORDS SUMMARY | 2024-01-21 19:31 | XMS_ITS | Continuity of Care Document ---
Author Organization [facility] ter Address [address] [place] [id number] Care Team Providers Care Tube Former Operator Name Role Phone Derek Tomas MD Primary Care Physician Encounter [facility] Date(s): 10/07/23 - 10/08/[address] [address]- Discharge Disposition: A-D/C Home Attending Physician: Penny Nicholas MD Admitting Physician: Sabino Miramontes MD Referring Physician: Not on Staff, Referring [...] 06/17/23 8:53:00 EST, Route to Pharmacy Electronically, [facility], Partial fill upon patient request if the prescription is for a schedule II opioid... Start Date: 06/17/23 Status: Ordered amLODIPine 5 mg oral tablet 5 mg, Tablet, By Mouth, 10/08/23 9:00:00 EDT Start Date: 10/08/23 Stop Date: 10/08/23 Status: Completed ascorbic acid 500 mg oral tablet 1 tablet = 500 mg, By Mouth, Daily, # 30 tablet, 0 Refills, Maintenance, 09/06/23 12:42:00 EDT, Tablet, [id number], Partial fill upon patient request if the prescription is for a schedule II opioid drug., 193, cm, 09/05/23 19:48:00 EDT, Height... Start Date: 09/06/23 Status: Ordered baclofen 20 mg oral tablet 20 mg, 1, tablet, By Mouth, 4 times a day, # 120 tablet, Refills 5, Tot. Refills 5, Maintenance, 08/06/23 9:00:00 EDT, Route to Pharmacy Electronically, [id number], 182, cm, 07/26/23 9:16:00 EDT, Height, 89, kg, 07/03/23 11:22:00 EST, Dry Weight Start Date: 08/06/23 Status: Ordered docusate sodium 100 mg oral capsule 1 capsule, By Mouth, 2 times a day, # 60 capsule, 11 Refills, Maintenance, 09/03/23 17:44:00 EDT, [id number], 193, cm, 09/03/23 14:09:00 EDT, Height, 91.4, kg, 08/30/23 12:03:00 EDT, Dry Weight Start Date: 09/03/23 Status: Ordered duloxetine 30 mg oral enteric coated capsule 1 capsule = 30 mg, By Mouth, Daily, TAKE 1 CAPSULE BY MOUTH EVERY DAY, # 30 capsule, 6 Refills, Maintenance, 09/03/23 17:47:00 EDT, Capsule, [id number], Partial fill upon patient [...] oral capsule 600 mg, Capsule, By Mouth, 10/08/23 9:00:00 EDT Start Date: 10/08/23 Stop Date: 10/08/23 Status: Completed gabapentin 600 mg oral tablet 1 tablet = 600 mg, By Mouth, 3 times a day, # 90 tablet, 11 Refills, Maintenance, 08/12/23 13:51:00EDT, Tablet, [id number], Partial fill upon patient request if the prescription is for a schedule II opioid drug., 182, cm, 07/26/23 9:16:00 EDT... Start Date: 08/12/23 Status: Ordered hydroxyurea 500 mg oral capsule = 500 mg, By Mouth, Daily, for 30 days, # 30 capsule, 2 Refills, Acute 10/18/23 14:36:00 EDT, 07/20/23 14:36:00 EST, Capsule, [id number], Partial fill upon patient [...] EDT, [facility]... Start Date: 08/23/23 Status: Ordered Oxycodone 20 mg, ER Tablet, By Mouth, Every 4 hours for 7 days, PRN for Pain , Severe, Routine, 10/08/23 8:59:00 EDT, Stop date 10/15/23 8:58:00 EDT Notes: Do Not Crush. Start Date: 10/08/23 Stop Date: 10/08/23 Status: Discontinued oxyCODONE 30 mg IR tablet 1 tablet = 30 mg, By Mouth, Every 12 hours, PRN as needed for pain, for 4 days, # 8 tablet, 0 Refills, Acute 10/12/23 12:47:00 EDT, 10/08/23 12:47:00 EDT, Tablet, [facility], Partial fill upon patient [...] 08/12/23 13:51:00 EDT, Route to Pharmacy Electronically, [facility][id number], Partial fill upon patient request if the [...] 0 Refills, Maintenance, 07/16/23 10:05:00 EST, Tablet, [facility], Partial fill upon patient [...] apex Confirmed Active [facility] Care Management, Core Cutter Carmen Elizabeth [phone] Confirmed Active Therapeutic drug monitoring Confirmed Active Peripheral neuropathy Confirmed Active Right spastic hemiparesis Confirmed Active Spasticity Confirmed Active Tobacco dependence Confirmed Active Results Radiology Reports * Exam Date Time Procedure Performing Provider Status 10/07/23 1:[address] Pelvis W/ Contrast Christos Charles; Auth (Verified) Notes: (CT Pelvis W/ Contrast) Reason For Exam: Pain RESULT: CT Pelvis W/ Contrast CT Pelvis W/ Contrast Reason: Pressure ulcers on buttocks, pain around ulcers; Clinical Question(s): Abscess; TECHNIQUE: Helical CT with IV contrast formatted in 3 planes. 80 cc of Omnipaque 300 was administered intravenously. Enteric contrast without administered. Automatic tube modulation and/or iterative dose reconstruction were used to optimize exposure parameters. CTDIvol Body: 8.80 mGy, DLP Body: 367 mGy*cm. COMPARISON: Multiple prior CTs, most recently 10/02/2023. FINDINGS: Test Specialist View Findings, Lines and Tubes: None. Visualized bowel: Normal caliber bowel loops without acute surrounding inflammatory changes. Appendix: No evidence of acute appendicitis. Bladder: Unremarkable. Reproductive organs: Unremarkable. Peritoneum and retroperitoneum: No ascites or pneumoperitoneum. No omental or mesenteric lesions. Lymph nodes: Chronically enlarged inguinal lymph nodes, right greater than left, likely reactive. Blood vessels: Normal. No evidence of venous thrombosis. Pelvic soft tissues: Overall unchanged appearance of the pelvic soft tissues. Extensive skin and insoft tissue thickening extending into the subcutaneous soft tissues of the right gluteal region andright posterior proximal thigh. The maximal depth of this thickness measures 2.3 cm (image 59 series 201). The length of this thickening extends approximately 22 cm (sagittal image 63). There is a mild fat stranding in the subcutaneous fat just deep to this area of thickening. No discrete fluid collections or masses in the superficial soft tissues overlying this region. Mild atrophy of the right gluteus muscles (image 96 series 201). Bones: No acute abnormality. Severe degenerative changes to the left hip joint. Status post cannulated screw placement. IMPRESSION: No significant change in the extensive area of presumed hydradenitis suppurativa of the right gluteal crease. No identifiable abscess. I have personally reviewed the images and I agree with this report. WSN: [id number] Ordering Physician: Madeleine Martines Dictated By: Zulma Palma MD Dictated Date/Time: 10/07/23 3:04 pm Reviewed By: Mando Bhatia MD Signed By: Mando Bhatia MD Signed Date/Time: 10/07/23 3:09 pm Transcribed By: ZEHRA Transcribed Date/Time: 10/07/23 2:46 pm Vital Signs Most recent to oldest [Reference Range]: 1 2 3 Weight 90.4 kg (10/07/23 9:11 PM) Oxygen Saturation [94-100 %] 94 % (10/08/23 9:45 AM) 94 % (10/08/23 6:28 AM) 100 % (10/08/23 4:27 AM) Pulse Rate [55-90 bpm] 66 bpm (10/08/23 9:45 AM) 63 bpm (10/08/23 6:28 AM) 63 bpm (10/08/23 4:27 AM) Blood Pressure [90-138/55-84 mm Hg] 120/52mm Hg (10/08/23 9:45 AM) 103/62mm Hg (10/08/23 9:01 AM) 117/48mm Hg (10/08/23 6:28 AM) Respiratory Rate [16-30 br/min] 18 br/min (10/08/23 10:03 AM) 18 br/min (10/08/23 10:00 AM) 20 br/min (10/08/23 9:45 AM) Temperature [96.8-100.4 DegF] 98.1 DegF (10/08/23 9:45 AM) 98.1 DegF (10/08/23 6:28 AM) 98.2 DegF (10/08/23 4:27 AM) Mode of Delivery (Oxygen) Room air (10/08/23 9:45 AM) Room air (10/08/23 6:28 AM) Room air (10/08/23 4:27 AM) Blood pressure sites Arm, right (10/08/23 9:45 AM) Arm, right (10/08/23 6:28 AM) Arm, left (10/08/23 4:27 AM) Temperature Route Oral (10/08/23 9:45 AM) Oral (10/08/23 6:28 AM) Oral (10/08/23 4:27 AM) Dry Weight 90.4 kg (10/07/23 9:11 PM) Weight Obtained Via Bed scale (10/07/23 9:11 PM) Social History Social History Type Response Smoking Status 5-9 cigarettes (betw een 1/4 to 1/2 pack)/day in last 30 days entered on: 05/16/22 Sex Admission evaluation note * Sabino Miramontes MD: PERFORM Event Display: Admission Note Authored Date: [id number] Patient: ??ERNESTO MCQUEEN ? Age:??38 Years?Sex:??Male?:??1985?? 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 ?? He was discharged three days ago after workup negative for infection and recommended no antibiotics, needs outpatient surgical and derm follow up with immunotherapy. ?? He was discharged with only two days of oxycodone and now returns with pain. ?? He has had multiple short courses of narcotics, appears insurance is a limiting factor as won't payfor extended courses of opiates. ?? He has tried Suboxone and doesn't like it. ?? He has tried fentanyl patch and reports it doens't work. ?? In the ED: Vitals and labs unremarkble CT without evidence of abscess, unchanged from prior ?? ROS: As above, rest of full review negative. Objective Temperature?98.1 ?(11:29) Systolic Blood Pressure?125 ?(16:29) Diastolic Blood Pressure?60 ?(16:29) Pulse?61 ?(16:29) SpO2?100 ?(16:29) Respiratory Rate?16 ?(17:18) ?? Physical Exam GEN: Comfortable in bed HEENT: Moist membranes HEART: Warm extremities LUNGS: Breathing comfortably room air ABD: Soft, nontender : No alejandra EXT: R hip bandaged clean/dry/intact, no surrounding erythema NEURO: Alert, oriented x3, dense R hemiparesis, aphasic PSYCH: Calm and cooperative Assessment/Plan 38-year-old male with a history of??ICA stroke with residual right-sided spastic hemiparesis, aphasia, cardiac??thrombus on Eliquis, severe hidradenitis with local excision and I&D's with chonic pain and multiple admissions for hidradenitis wounds and pain, presenting wtih pain. ?? Chronic pain (G89.29):??d Hidradenitis suppurativa (L73.2):??d No signs of infection or worsening clinical status, but he does not have adequate pain control. He states he needs oxycodone 30mg Q4 hrs, has tried Suboxone and doesn't like it and Fentanyl patch didn't work. I called pharmacy, and his insuarnce will only fill two days worth. - oxycodone 30mg Q6 hr -??he needs a pain plan, likely in discussion with PCP, possibly methadone - mother is arrnaging follow up with surgery and??dermatology for immunotherapy - cont baclofen - cont duloxetine - cont gabapentin - cont Tizanidine (tiZANidine 2 mg oral tablet)?4?Milligram?2?tablet?By Mouth?Every 8 hours?as needed?as needed for muscle spasm ?? History of CVA (cerebrovascular accident) (Z86.73):?? - apixaban? Thrombus: - cont apixaban ?? HTN: - cont amlodipine ?? GERD: - cont Pantoprazole (pantoprazole 40 mg oral delayed release tablet)?40?Milligram?By Mouth?Daily?for 30?Days ? DVT - apixaba DIET - regular CODE - full Histories Past Medical History/Problem List [facility](19[facility] Core Cutter Carmen Elizabeth [phone] Chronic ischemic left ICA stroke Chronic pain Controlled substance agreement signed 10/16/22 Depression GERD (gastroesophageal reflux disease) Hidradenitis suppurativa History of ischemic stroke Hypertension PATY (iron deficiency anemia) Insomnia Iron deficiency anemia Mural thrombus of cardiac apex Peripheral neuropathy Right spastic hemiparesis Spasticity Therapeutic drug monitoring Tobacco dependence Wound of buttock ? Medications Home Medications Amlodipine (amLODIPine 5 [...] mg oral delayed release tablet)?40?Milligram?By Mouth?Daily?for 30?Days Tizanidine (tiZANidine 2 mg oral tablet)?4?Milligram?2?tablet?By Mouth?Every 8 hours?as needed?as needed for muscle spasm Triamcinolone Topical (triamcinolone 0.1% topical cream)?1?boyd?Topically?2 times a day?*DO NOT APPLY TO OPEN WOUND(S)* ? Inpatient Medications Medications (2) Active SCHEDULED: (0) CONTINUOUS: (0) PRN: (2) HYDROmorphone 1 mg/mL Inj Syringe (Dilaudid Inj) ??1 mg 1 mL, IV Push Slowly, Once OxyCODONE 5 mg IR Tablet (oxyCODONE 5 mg oral tablet) ??30 mg, By Mouth, Every 4 hours ? Note * Rhonda Tate LPN: PERFORM Event Display: Discharge/Transfer Note Hospital Authored Date: Nursing Discharge Note Entered On: 10/08/2023 14:28 EDT Performed On: 10/08/2023 12:15 EDT by Rhonda Tate LPN Nursing Discharge Note 2 Discharge Time : 10/08/2023 12:15 EDT Discharge Level of Care at Discharge : Homehealth/VNA Discharge VNA/Hospice/Home Care(v001) : [facility] [phone] Patient Left Unit Via : Ambulance Patient Accompanied Off Unit with : Responsible adult DC Instructions Provided & Signed by Pt : Yes Patient Understands D/C Instructions : Yes Patient Instructions Discharge Signed : Yes Did Pt have Specialty Bed or Wound Vac : No Rhonda Tate LPN - 10/08/2023 14:27 EDT * Yu PAGAN, Penny: PERFORM, MODIFY, MODIFY, MODIFY Event Display: Discharge/Transfer Note Hospital Authored Date: Patient: ??ERNESTO MCQUEEN ? Age:??38 Years?Sex:??Male?:??1985?? Patient Information Discharge Location: [facility] Primary Care Physician: Derek Tomas MD Admit Date/Time: 10/07/23 11:13 Discharge Disposition Discharge Disposition: Resume skilled??nursing services??on discharge Discharge Diagnosis Chronic pain (G89.29) Hidradenitis suppurativa (L73.2) History of CVA (cerebrovascular accident) (Z86.73) _ Discharge Medications Amlodipine (amLODIPine 5 mg [...] Oxycodone (oxyCODONE 30 mg IR tablet)?1?tab(s)?30?Milligram?By Mouth?Every 8 hours?as needed?as needed for pain?for 3?Days Pantoprazole (pantoprazole 40 mg oral delayed release tablet)?40?Milligram?By Mouth?Daily?for 30?Days Tizanidine (tiZANidine 2 mg oral tablet)?4?Milligram?2?tablet?By Mouth?Every 8 hours?as needed?as needed for muscle spasm Triamcinolone Topical (triamcinolone 0.1% topical cream)?1?boyd?Topically?2 times a day?*DO NOT APPLY TO OPEN WOUND(S)* ? Quality Measures Tobacco Use Treatment:? Medications Started Oxycodone Allergies Allergies ?(Active and Proposed Allergies Only) NKA? (Severity: Unknown severity, Onset: Unknown) ? PCP Follow-Up/Heads-Up Please follow up re pain agreement for opiate use outpatient -- needs to be seen JOSIANE Objective Assessment and Plan 38-year-old male with a history of??ICA stroke with residual right-sided spastic hemiparesis, aphasia, cardiac??thrombus on Eliquis, severe hidradenitis with local excision and I&D's with chonic pain and multiple admissions for hidradenitis wounds and pain, presenting wtih pain. ?? Chronic pain (G89.29):??d Hidradenitis suppurativa (L73.2):??d No signs of infection or worsening clinical status, but he does not have adequate pain control. He states he needs oxycodone 30mg Q4 hrs, has tried Suboxone and doesn't like it and Fentanyl patch didn't work. I called pharmacy, and his insuarnce will only fill two days worth. - oxycodone 30mg q12h, his insurance will only cover??2 tablets per day, patient has been advised of this and he is in agreement, he states because of the long weekend he could not reach his PCP office and had run out of medications thus presented back to the ER - PCP follow up for continued pain management and per pain service and addiction recs, may continuetitration of meds as an outpatient - mother is arrnaging follow up with surgery and??dermatology for immunotherapy - cont baclofen - cont duloxetine - cont gabapentin - cont Tizanidine (tiZANidine 2 mg oral tablet)?4?Milligram?2?tablet?By Mouth?Every 8 hours?as needed?as needed for muscle spasm ?? History of CVA (cerebrovascular accident) (Z86.73):?? - apixaban? Thrombus: - cont apixaban ?? HTN: - cont amlodipine ?? GERD: - cont Pantoprazole (pantoprazole 40 mg oral delayed release tablet)?40?Milligram?By Mouth?Daily?for 30?Days? Vital Signs?? Temperature: 98.1 DegF (10/08/23 09:45:00) Temperature Route: Oral (10/08/23 09:45:00) Pulse Rate: 66 bpm (10/08/23 09:45:00) Respiratory Rate: 18 br/min (10/08/23 10:03:00) Systolic Blood Pressure: 120 mm Hg (10/08/23 09:45:00) Diastolic Blood Pressure:??52 mm Hg??Low (10/08/23 09:45:00) Blood pressure sites: Arm, right (10/08/23 09:45:00) Mean Arterial Pressure: 75 mm Hg (10/08/23 09:45:00) Pulse Pressure: 68 mm Hg (10/08/23 09:45:00) Oxygen Saturation: 94 % (10/08/23 09:45:00) Mode of Delivery (Oxygen): Room air (10/08/23 09:45:00) Early Warning Score: 2 (10/08/23 10:04:01) ? Mobility & Ambulation Level Mobility & Ambulation Level?? No qualifying data available. ?? Therapeutic Activity Therapeutic Activities/Mobility/Balance?? No qualifying data available. ?? . Physical Exam GEN: Comfortable in bed HEENT: Moist membranes HEART: Warm extremities LUNGS: Breathing comfortably room air ABD: Soft, nontender : No alejandra EXT: R hip bandaged clean/dry/intact, no surrounding erythema NEURO: Alert, oriented x3,?? R hemiparesis, aphasia with slurring of words PSYCH: Calm and cooperative Pending Results No Pending Results Follow-Up Appointments Added Follow Up ?Time Frame ?Comments Derek Tomas MD?1-2 day: call to discuss follow up visit?Hospital follow-up with PCP Patient Instructions Please take oxycodone as prescribed for pain control I recommend calling your PCP??as soon as possible, and having them??enter a pain agreement for you to continue getting pain medications as an outpatient. Post Discharge Care Discharge ?10/08/23 10:30:00 EDT Discharge Prescriptions ?ePrescribed, 10/08/23 10:30:00 EDT Home Health Face to Face *Denotes mandatory burton ?? *I certify that this patient is under my care and that I or an allowed non- physician working with me had a face to face encounter with the patient on this date:??10/08/2023 11:13 ?? *The encounter with the patient was in whole, or in part, for the following medical condition, which is the primary diagnosis(es) for home health care:??Chronic pain (G89.29) Hidradenitis suppurativa (L73.2) History of CVA (cerebrovascular accident) (Z86.73) ?? *Select the indications for the discipline/s that are being arranged for this patient. Nursing (select all that apply): [_] None [_] Medication management (reconciliation, teaching)?? [x] Chronic disease management?? [x] Wound care and treatment?? [_] Home safety evaluation [_] Administer SQ/IM/IV medications?? [_] Cath care?? [_] Drain care?? [_] Trach or GT care?? Other _ Occupation Therapy (select all that apply): [_] None [_] ADL Management [_] Fall prevention training [_] Energy conservation [_] Cognitive training Other _ Physical Therapy (select all that apply): [_] None [x] Functional mobility training [x] Home exercise program to strengthen [x] Increase ROM?? [x] Falls prevention training [_] Home maintenance program [...] Inability to ambulate without assistance [_] Pain [x] Decreased strength and endurance [_] Unsteady gait [_] Severe SOB and fatigue [_] Impaired transfers [_] Inability to negotiate stairs [_] Limited weight bearing [_] Mental status change? *Physician Signature:??Penny Nicholas MD ?? *By signing this, I certify that I have personally evaluated the patient and agree with the findings and recommendations as documented above. ? F Results Discharge Labs BLOOD COUNT & DIFF WBC 7.3 k/mm3 ()?? 10/07/2023 12:25 RBC 3.40 m/mm3 (Low)?? 10/07/2023 12:25 Hgb 8.3 Gm/dL (Low)?? 10/07/2023 12:25 Hct 28.8 % (Low)?? 10/07/2023 12:25 MCV 84.7 femtoliters ()?? 10/07/2023 12:25 MCH 24.4 pg (Low)?? 10/07/2023 12:25 MCHC 28.8 g/dL (Low)?? 10/07/2023 12:25 Platelet Count 729 k/mm3 (High)?? 10/07/2023 12:25 RDW-SD 59.9 femtoliters (High)?? 10/07/2023 12:25 MPV 8.4 femtoliters (Low)?? 10/07/2023 12:25 Nucleated RBC (Automated) 0.0 #/100 WBC'S ()?? 10/07/2023 12:25 Abs. NRBC 0.0 k/mm3 ()?? 10/07/2023 12:25 Abs. Neut 5.5 k/mm3 ()?? 10/07/2023 12:25 Abs. Lymph 1.2 k/mm3 ()?? 10/07/2023 12:25 Abs. [place] 0.4 k/mm3 ()?? 10/07/2023 12:25 Abs. Eo 0.0 k/mm3 ()?? 10/07/2023 12:25 Abs. Baso 0.0 k/mm3 ()?? 10/07/2023 12:25 Neut % 76.1 % (High)?? 10/07/2023 12:25 Lymph % 16.8 % ()?? 10/07/2023 12:25 [place] % 5.8 % ()?? 10/07/2023 12:25 Eos % 0.6 % ()?? 10/07/2023 12:25 Baso % 0.3 % ()?? 10/07/2023 12:25 Imm Gran 0.4 % ()?? 10/07/2023 12:25 Abs. Imm Gran 0.0 k/mm3 ()?? 10/07/2023 12:25 ?? CHEM GENERAL Sodium 139 mmol/L ()?? 10/07/2023 12:08 Potassium 4.4 mmol/L ()?? 10/07/2023 12:08 Chloride 104 mmol/L ()?? 10/07/2023 12:08 Bicarbonate Level 26 mmol/L ()?? 10/07/2023 12:08 Anion Gap 9 ()?? 10/07/2023 12:08 Glucose Level 103 mg/dL (High)?? 10/07/2023 12:08 BUN 12 mg/dL ()?? 10/07/2023 12:08 Creatinine-Blood 0.83 mg/dL ()?? 10/07/2023 12:08 Estimated GFR Creatinine 116 ML/MIN/1.73 M2 ()?? 10/07/2023 12:08 Calcium 9.1 mg/dL ()?? 10/07/2023 12:08 ? Blood Glucose Trend Glucose Level:??103 mg/dL??High (10/07/23 12:08:00) ? 40??minutes spent on discharge * Kirti Beltran RN: PERFORM, SIGN, VERIFY Event Display: Case Management Discharge Plan Authored Date: Patient: ERNESTO MCQUEEN Age: 38 years Sex: Male : 1985 Associated Diagnoses: None Author: Kirti Beltran RN Discharge Plan Case Management Discharge Plan : Case Management Discharge Plan Data 10/08/2023 10:50 EDT Discharge Level of Care at Discharge Homehealth/VNA Discharge VNA/Hospice/Home Care [facility] [phone] Discharge Transportation Arranged [facility] [address] [place] [address] Mode of Transportation Arranged Ambulance Name of Agency #1 [facility] In Flight Refueling Operator # Service Categories #1 Care Home Service Start Date and Time #1 10/08/2023 10:50 Service Comments #1 resume services * Rhonda Tate LPN: PERFORM Event Display: Patient Education/Instruction Authored Date: [id number] Inpatient Adult Discharge Instructions. [address] [address] Name: ERNESTO MCQUEEN : 1985?? Visit: 10/07/2023 11:13?? Current Date: 10/08/2023 10:46 ?? Account: [id number]?? Inpatient Adult Discharge Instructions We would like [...] and their families. Surveys are administered by [employer] ?? If further treatment with your primary care physician or another doctor is recommended, it is important for you to keep the appointment. Call your primary care physician or return to the Emergency Department immediately if your condition worsens, fails to improve, or new symptoms develop. If you need to find a doctor, you can call [facility] [employer] for a referral at [phone] or toll free at [phone] or log in to [email or web address].. ?? [facility], in keeping with [facility] guidance, no longer requires face [...] a health care boyd of your choosing. [employer] is a website that allows you to securely view your medical information including your hospital discharge summary, office visit summaries, medications and follow-up visits. You can also request appointments, renew medications, and request access to your medical information using a health care boyd of your choosing, or just ask a question. You can enroll at [email or web address] or register during your next office visit. You have been discharged from [facility], Patient Care Unit: D3B??. If you have any questions regarding these instructions, including results of studies pending, afteryou leave, please call us and we will be happy to assist you 03/12. [facility] Your Care Team Attending Physician Penny Nicholas MD?? Consulting Providers Penny Nicholas MD?? Discharging Providers Penny Nicholas MD Reason for Your Visit From home, bed bound s/p stroke, pressure ulcers on right buttocks, recently dc'd from [facility] 3 days ago, pt recently ran out of oxy which pt reports helped the pain?? Your Diagnosis Chronic pain General medical Hidradenitis suppurativa History of CVA (cerebrovascular accident) Tests Performed Below is a partial list [...] Care Proxy Discharge Vitals Temperature: 98.1 DegF Weight: 90.4 kg Pulse Rate: 66 bpm ?? Respiratory Rate: 18 br/min ?? Systolic Blood Pressure: 120 mm Hg ?? Diastolic Blood Pressure:??52 mm Hg??Low ?? Oxygen Saturation: 94 % ?? Studies Pending All studies ordered during this hospital stay have been completed unless listed below. Please discuss all pending results with your provider listed above in these instructions. ?? No incomplete studies found?? What to do next Instructions From Your Doctor Please take oxycodone as prescribed for pain control I recommend calling your PCP??as soon as possible, and having them??enter a pain agreement for you to continue getting pain medications as an outpatient. ?? Orders? 10/08/23 10:30:00 EDT?? Prescriptions??, ??10/08/23 10:30:00 EDT?? You Need to Schedule the Following Appointments Follow Up with??Derek Tomas MD When:??Within 1-2 day: call to discuss follow up visit Why: Hospital follow-up with PCP Where: [address] [place] [address]- Discharge Medications MCQUEENERNESTO LAU :1985 Visit Date:10/07/2023 Medications: Please continue your medications until treatment is completed or stopped by your provider. Medications not listed below should be discontinued. Discuss any questions related to medications with your provider. What How Much When Why Instructions Next Dose New Oxycodone (oxyCODONE 30 mg IR tablet) 1 tab(s) Oral Every 8 hours as needed for as needed for pain Duration: 3 Days Pickup at [facility] #[id number] follow as prescribe last dose given at 10:03 next dose 6:00 pm Unchanged Amlodipine (amLODIPine 5 mg oral tablet) 1 tab(s) Oral Daily 10/09/23 Unchanged apixaban (Eliquis 5 mg oral tablet) 1 tab(s) Oral Twice a day 10/08/23 evening Unchanged Ascorbic Acid (ascorbic acid 500 mg oral tablet) 1 tab(s) Oral Daily 10/09/23 Unchanged Baclofen (baclofen 20 mg oral tablet) 1 tab(s) Oral 4 times a day 10/09/23 noon Unchanged Cholecalciferol (Vitamin D3 1000 intl units oral tablet) 1 tab(s) Oral Daily 10/09/23 Unchanged Docusate (docusate sodium 100 mg oral capsule) 1 capsule Oral Twice a day 10/08/23 evening Unchanged Duloxetine (duloxetine 30 mg oral enteric coated capsule) 1 capsule Oral Daily Duration: 30 Days TAKE 1 CAPSULE BY MOUTH EVERY DAY ?? 10/09/23 Unchanged Durable Medical Equipment (Vashe wound solution) See instructions Hydradenitis Use 45mL daily ?? see instructions Unchanged Ferrous Sulfate (FeroSul 325 mg oral tablet) 1 tab(s) Oral Twice a day 10/08/23 evening Unchanged Folic Acid (folic acid 1 mg oral tablet) 1 tab(s) Oral Daily 10/09/23 Unchanged Gabapentin (gabapentin 600 mg oral tablet) 1 tab(s) Oral 3 times a day 10/08/23 evening Unchanged Hydroxyurea (hydroxyurea 500 mg oral capsule) 500 Milligram Oral Daily Duration: 30 Days 10/09/23 Unchanged nalOXONE (Narcan 4 mg/ 0.1 mL nasal spray) 1 spray(s) Nares, Both Once To be used use one spray in one nostril. if an additional dose is needed, alternate nostril. may repeat every 2 to 3 minutes until patient responds ?? follow as prescribe Unchanged Pantoprazole (pantoprazole 40 mg oral delayed release tablet) 40 Milligram Oral Daily Duration: 30 Days 10/09/23 Unchanged Tizanidine (tiZANidine 2 mg oral tablet) 2 tab(s) Oral Every 8 hours as needed for as needed for muscle spasm 10/08/23 last dose given at 10:03 follow as prescribe Unchanged Triamcinolone Topical (triamcinolone 0.1% topical cream) 1 boyd Topically Twice a day *DO NOT APPLY TO OPEN WOUND(S)* ?? 10/08/23 evening Pharmacy Information [facility]/pharmacy #[id number]: [address] [place], [place] [id number] [phone] Prescription Given During Visit Oxycodone (oxyCODONE 30 mg IR tablet) - 1 tablet = 30 mg, By Mouth, Every 8 hours, # 9 tablet, 0 Refills, [facility]/pharmacy #[id number], [address] [place] [phone]?? Laboratory Results Below is a partial list of the most recent Laboratory test results done prior to this discharge. You may have had other tests and procedures not included in this list. Please discuss all test resultswith your provider. Basic Metabolic Panel (10/07/2023) ???Sodium - 139 mmol/L???Potassium - 4.4 mmol/L???Chloride - 104 mmol/L???Bicarbonate Level - 26 mmol/L???Anion Gap - 9???Glucose Level - 103 mg/dL???BUN - 12 mg/dL???Creatinine-Blood - 0.83 mg/dL???Estimated GFR Creatinine - 116 ML/MIN/1.73 M2???Calcium - 9.1 mg/dL CBC w/ Differential (10/07/2023) ???WBC - 7.3 k/mm3???RBC - 3.40 m/mm3???Hgb - 8.3 Gm/dL???Hct - 28.8 %???MCV - 84.7 femtoliters???MCH - 24.4 pg???MCHC - 28.8 g/dL???Platelet Count - 729 k/mm3???RDW-SD - 59.9 femtoliters???MPV - 8.4femtoliters???Nucleated RBC (Automated) - 0.0 #/100 WBC'S???Abs. NRBC - 0.0 k/mm3???Abs. Neut - 5.5 k/mm3???Abs. Lymph - 1.2 k/mm3???Abs. Iosco - 0.4 k/mm3???Abs. Eo - 0.0 k/mm3???Abs. Baso - 0.0 k/mm3???Neut % - 76.1 %???Lymph % - 16.8 %???Iosco % - 5.8 %???Eos % - 0.6 %???Baso % - 0.3 %???Imm Gran - 0.4 %???Abs. Imm Gran - 0.0 k/mm3 Allergies (NKA means No Known Allergies) NKA Problems Active Problems??(19) [facility], Core Cutter Carmen Elizabeth [phone]?? Chronic ischemic left ICA stroke?? Chronic pain?? [...] Belongings I fully understand and agree that [facility] accepts no responsibility for all [...] of Valuable and Belonging List: With patient Date for Pt to Sign Valuables/Belongings: 10/07/23 21:12:00 ?? Other Discharge Information ? Pulmonary Rehab [...] are strongly encouraged to quit. Please call [facility] [employer] at [phone] or [phone]) or log in to [email or web address] for referrals to smoking cessation programs. ?? 476 Suicide & Crisis Lifeline is available 03/12 if you or someone you know needs to find a reason to keep living. By calling 336 you'll be connected to a skilled, trained counselor at a crisis center in your area. INPATIENT DISCHARGE INSTRUCTIONS SIGNATURE PAGE ERNESTO MCQUEEN Location:[facility] Registration Date and Time:10/07/2023 11:13 EDT Primary Care Physician: Derek Tomas MD, Attending Physician: Yu PAGAN, Penny, I MCQUEENERNESTO LAU, have received the above patient education materials/instructions and have verbalized understanding. If ambulance or transport services are being used I further acknowledge being given a choice of service. ?? If you need to contact me, please call me at this number: . Patient/Mainframe Architect Name: Patient/Mainframe Architect Signature: Relationship to Patient: Witness Name/Signature: Date: Patient Care team information Care Team Personnel Name: Anu Lipscomb Position: S RN Member Role: Primary Care Nurse Name: Jeanne Bryant RN Position: S RN Member Role: Primary Care Nurse Name: Mitch Guido RN Position: S RN Member Role: Primary Care Nurse Name: Areli Pittman RN Position: [facility] ED RN W/OE and Tasks Member Role: Primary Care Nurse Name: Derek Tomas MD Position: [facility] Resident Member Role: PCP Address: Address: [address] [place] [address] Name: Monique Irwin LPN Position: [facility] RN Member Role: Primary Care Nurse Name: Lianna Epstein RN Position: [facility] RN Member Role: Primary Care Nurse Name: Mk Knutson LPN Position: [facility] RN Member Role: Primary Care Nurse Name: Farhana Garcia RN Position: [facility] RN Member Role: Primary Care Nurse Name: Kenyatta Villegas RN Position: [facility] RN Member Role: Primary Care Nurse Name: Albertina Adams RN Position: [facility] RN Member Role: Primary Care Nurse Name: Ricardo Russell RN Position: [facility] RN Member Role: Primary Care Nurse Name: Gissell Jernigan RN Position: [facility] RN Member Role: Primary Care Nurse Name: Farhana Green RN Position: [facility] RN Member Role: Primary Care Nurse Name: Cydney Delgado RN Position: [facility] RN Member Role: Primary Care Nurse Name: Sharon Mendez RN Position: [facility] RN Member Role: Primary Care Nurse Name: Mookie Christianson RN Position: [facility] RN Member Role: Primary Care Nurse Name: Ally Boyd RN Position: [facility] RN Member Role: Primary Care Nurse Name: Javed Oneill RN Position: [facility] RN Member Role: Primary Care Nurse Name: Lynn Stewart RN Position: [facility] RN Member Role: Primary Care Nurse Name: Amanda Johnson RN Position: [facility] RN Member Role: Primary Care Nurse Name: Jolie Villalobos RN Position: [facility] RN Member Role: Primary Care Nurse Name: Axel Savage RN Position: [facility] RN Member Role: Primary Care Nurse Name: Dirk Driver RN Position: [facility] RN Member Role: Primary Care Nurse Name: Glenys Bee RN Position: [facility] RN Member Role: Primary Care Nurse Name: Praveen Maurer Position: [facility] RN Member Role: Primary Care Nurse Name: Filemon King RN Position: [facility] RN Member Role: Primary Care Nurse Name: Lauren Guevara RN Position: [facility] RN Member Role: Primary Care Nurse Name: Annamaria Quinn RN Position: [facility] RN Member Role: Primary Care Nurse Name: Jada Waller RN Position: [facility] RN Member Role: Primary Care Nurse Name: Lashawn Nagy RN Position: [facility] RN Member Role: Primary Care Nurse Name: Rhonda Tate LPN Position: [facility] RN Member Role: Primary Care Nurse Name: Jacquelin Naranjo RN Position: [facility] RN Member Role: Primary Care Nurse Name: Glenys Fox RN Position: [facility] RN Member Role: Primary Care Nurse Care Team Related Persons Name: JUHI BEVERLY Address: home [place], [place] Name: HEEAN MCQUEEN Address: [address] [place], [place] Name: AISLINN DE LA PAZ Address: home [address] [place] [address]
--- OUTSIDE RECORDS SUMMARY | 2024-01-21 19:31 | XMS_ITS | Continuity of Care Document ---
Author Organization [facility] Address [address] [place] [address]- Care Team Providers Care Outreach Rep Name Role Phone Derek Tomas MD Primary Care Physician Encounter [facility] Date(s): 03/02/22 - 07/26/23 [facility] [address], [place] [address] Encounter Diagnosis Ischemic left ICA stroke d/t left carotid embolism (08/2020)(Discharge Diagnosis) - 03/09/22 Discharge Disposition: A-D/C Home Attending Physician: Anne Tan MD Admitting Physician: Anne Tan MD Referring Physician: Delmis BURNS, Isaiah Loredo Allergies, Adverse Reactions, Alerts No Known Allergies [...] 06/17/23 8:53:00 EST, Route to Pharmacy Electronically, [facility], Partial fill upon patient request if the prescription is for a schedule II opioid... Start Date: 06/17/23 Status: Ordered baclofen 20 mg oral tablet 20 mg, 1, tablet, By Mouth, 4 times a day, # 120 tablet, Refills 0, Tot. Refills 0, Maintenance, 06/03/23 13:25:00 EST, Route to Pharmacy Electronically, [facility], 193, cm, 06/01/23 9:54:00 EST, Height, 90.9, kg, 06/01/23 9:54:00 EST,... Start Date: 06/03/23 Status: Ordered docusate sodium 100 mg oral capsule 100 mg, 1, capsule, By Mouth, 2 times a day, # 60 capsule, Refills 0, Tot. Refills 0, Maintenance, 07/16/23 9:51:00 EST, Route to Pharmacy Electronically, [facility], Partial fill upon patient request if the prescription is for a schedul... Start Date: 07/16/23 Status: Ordered duloxetine 30 mg oral enteric coated capsule 2 capsule = 60 mg, By Mouth, Daily, # 60 capsule, 0 Refills, Maintenance, 07/16/23 9:56:00 EST, [facility], 182, cm, 07/04/23 14:56:00 EST, Height, 89, kg, 07/03/23 11:22:00 EST, Dry Weight Start Date: 07/16/23 Status: Ordered Eliquis 5 mg oral tablet See Instructions, TAKE 1 TABLET BY MOUTH TWICE A DAY, # 60 tablet, 11 Refills, Maintenance, 06/12/23 6:31:00 EST, [id number], 193, cm, 06/01/23 9:54:00 EST, Height, 90.9, kg, 06/01/23 9:54:00 EST, Dry Weight Start Date: 06/12/23 Status: Ordered ferrous sulfate 325 mg oral tablet 1 tablet = 325 mg, By Mouth, Daily, TAKE 1 TABLET BY MOUTH EVERY DAY, # 30 tablet, 0 Refills, Maintenance, 06/12/23 6:46:00 EST, Tablet, [facility]/pharmacy #[id number], Partial [...] 06/12/23 6:46:00 EST, Route to Pharmacy Electronically, [facility]/pharmacy #[id number], Partial fill upon... Start Date: 06/12/23 Status: Ordered gabapentin 600 mg oral tablet 1 tablet = 600 mg, By Mouth, 3 times a day, # 90 tablet, 0 Refills, Maintenance, 06/21/23 12:34:00 EST, Tablet, [facility]/pharmacy #[id number], Partial fill upon patient request if the prescription is for a schedule II opioid drug., 190, cm, 06/21/23 11:49:00 EST... Start Date: 06/21/23 Stop Date: 07/21/23 Status: Ordered hydroxyurea 500 mg oral capsule = 500 mg, By Mouth, Daily, for 30 days, # 30 capsule, 2 Refills, Acute 10/18/23 14:36:00 EDT, 07/20/23 14:36:00 EST, Capsule, [facility]/pharmacy #[id number], Partial fill upon patient request if the prescriptionis for a schedule II opioid drug., 182, cm, ... Start Date: 07/20/23 Stop Date: 10/18/23 Status: Ordered omeprazole 40 mg oral enteric coated capsule 1 capsule, By Mouth, Daily, # 30 capsule, 5 Refills, Maintenance, 08/13/22 15:28:00 EDT, [facility]/pharmacy #[id number], 193.04, cm, 07/23/22 14:07:00 [...] 06/21/23 12:37:00 EST, Route to Pharmacy Electronically, [facility]/pharmacy #[id number], Partial fill upon patient request if the presc... Start Date: 06/21/23 Status: Ordered Vitamin D3 1000 intl units oral tablet 1 tablet = 25 mcg, By Mouth, Daily, # 30 tablet, 0 Refills, Maintenance, 07/16/23 10:05:00 EST, Tablet, [facility], Partial fill upon patient [...] apex Confirmed Active [facility] CP Care Management, Wireless Manager Carmen Elizabeth [phone] Confirmed Active Therapeutic drug monitoring Confirmed Active Peripheral neuropathy Confirmed Active Right spastic hemiparesis Confirmed Active Spasticity Confirmed Active Tobacco dependence Confirmed Active Diagnosis Diagnosis Type Effective Dates Health Status Cl inical Service Informant Ischemic left ICA stroke d/t left carotid embolism (08/2020) Discharge Diagnosis 03/09/22 Non-Specified Social History Social History Type Response Smoking [...] [facility] Resident Member Role: PCP Address: Address: [address] [place] [id number]- Name: Farhana Garcia RN Position: [facility] RN Member Role: Primary Care Nurse Name: Farhana Green RN Position: [facility] RN Member Role: Primary Care Nurse Name: Ally Boyd RN Position: [facility] RN Member Role: Primary Care Nurse Name: Javed Oneill RN Position: [facility] RN Member Role: Primary Care Nurse Name: Lynn Stewart RN Position: [facility] RN Member Role: Primary Care Nurse Name: Jolie Villalobos RN Position: [facility] RN Member Role: Primary Care Nurse Name: Axel Savage RN Position: [facility] RN Member Role: Primary Care Nurse Name: Glenys Bee RN Position: [facility] RN Member [...] Persons Name: JUHI BEVERLY Address: [place] [address] Name: AISLINN DE LA PAZ Address: home [address] [place] [address]
--- OUTSIDE RECORDS SUMMARY | 2024-01-21 19:31 | XMS_ITS | Continuity of Care Document ---
Author Organization [facility] Address [address] [place] [address]- Care Team Providers Care Oven Attendant Name Role Phone Genoveva PAGAN, Derek Primary Care Physician Encounter [facility] Date(s): 01/25/23 - 02/24/[address] [address]- Allergies, Adverse Reactions, Alerts No Known Allergies [...] 08/17/22 15:25:00 EDT, [facility], 193.04, cm, 07/23/22 14:07:00 EDT, Height, 99.6, [...] Maintenance, 08/13/22 15:55:00 EDT, Route toPharmacy Electronically, [facility] 332[facility], 193.04, cm, 07/23/22 14:07:00 EDT, Height, 99.6, [...] 02/22/22 9:42:00 EDT, Route to Pharmacy Electronically, [facility] 604[facility], 193, cm, 02/07/22 10:31:00 EDT, Height, 97.2, [...] need: 99 months Number to fax to: [phone], 01/06/21 13:10:00 E... 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 Carmen Clara [phone] Confirmed Active Therapeutic drug monitoring Confirmed Active Peripheral neuropathy Confirmed Active Spasticity Confirmed Active Tobacco dependence Confirmed Active Social History Social History Type Response Smoking Status 5-9 cigarettes (betw een 1/4 to 1/2 pack)/day in last 30 days entered on: 05/16/22 Sex Patient Care team information Care Team Personnel Name: Areli Pittman RN Position: [facility] ED RN W/OE and Tasks Member Role: Primary Care Nurse Name: Derek Tomas MD Position: [facility] Resident Member Role: PCP Address: Address: [address] [place] [id number]- Name: Ally Boyd RN Position: S RN Member Role: Primary Care Nurse Name: Axel Savage RN Position: S RN Member Role: Primary Care Nurse Name: Filemon King RN Position: S RN Member Role: Primary Care Nurse Name: Glenys Fox RN Position: S RN Member Role: Primary Care Nurse Care Team Related Persons Name: BEVERLY REYNAGA Address: home [address] [place] [id number] Name: AISLINN DE LA PAZ Address: [address] [address]
--- OUTSIDE RECORDS SUMMARY | 2024-01-21 19:31 | XMS_ITS | Continuity of Care Document ---
Author Organization [facility] Address [address] [place] [address]- Care Team Providers Care Shank Scourer Name Role Phone Genoveva PAGAN, Derek Primary Care Phys[place] [facility] [place] - 10/19/[address] [address]- Allergies, Adverse Reactions, Alerts No Known Allergies Immunizations Given and Recorded Vaccine Date Status Refusal Reason influenza virus vaccine, inactivated 05/18/22 Give n tetanus/diphtheria/pertussis, acel(Tdap) 09/13/19 Recorded Medications amLODIPine 5 mg oral tablet 5 mg, 1, tablet, By Mouth, Daily, # 30 tablet, Refills 0, Tot. Refills 0, Maintenance, 06/17/23 8:53:00 EST, Route to Pharmacy Electronically, [facility], Partial fill upon patient request if the prescription is for a schedule II opioid... Start Date: 06/17/23 Status: Ordered ascorbic acid 500 mg oral tablet 1 tablet = 500 mg, By Mouth, Daily, # 30 tablet, 0 Refills, Maintenance, 09/06/23 12:42:00 EDT, Tablet, [facility]/pharmacy #[id number], Partial fill upon patient request if the prescription is for a schedule II opioid drug., 193, cm, 09/05/23 19:48:00 EDT, Height... Start Date: 09/06/23 Status: Ordered baclofen 20 mg oral tablet 20 mg, 1, tablet, By Mouth, 4 times a day, # 120 tablet, Refills 5, Tot. Refills 5, Maintenance, 08/06/23 9:00:00 EDT, Route to Pharmacy Electronically, [facility]/pharmacy #[id number], 182, cm, 07/26/23 9:16:00 EDT, Height, 89, kg, 07/03/23 11:22:00 EST, Dry Weight Start Date: 08/06/23 Status: Ordered docusate sodium 100 mg oral capsule 1 capsule, By Mouth, 2 times a day, # 60 capsule, 11 Refills, Maintenance, 09/03/23 17:44:00 EDT, [id number], 193, cm, 09/03/23 14:09:00 EDT, Height, 91.4, kg, 08/30/23 12:03:00 EDT, Dry Weight Start Date: 09/03/23 Status: Ordered duloxetine 30 mg oral enteric coated capsule 1 capsule = 30 mg, By Mouth, Daily, TAKE 1 CAPSULE BY MOUTH EVERY DAY, # 30 capsule, 6 Refills, Maintenance, 09/03/23 17:47:00 EDT, Capsule, [facility]/pharmacy #[id number], Partial fill [...] 0 Refills, Maintenance, 10/16/23 15:51:00 EDT, [id number], 193, cm, 10/04/23 3:49:00 EDT, Height, 90.4, [...] tablet, 11 Refills, Maintenance, 08/12/23 13:51:00EDT, Tablet, [facility]/pharmacy #[id number], Partial fill upon patient request if the prescription is for a schedule II opioid drug., 182, cm, 07/26/23 9:16:00 EDT... Start Date: 08/12/23 Status: Ordered hydroxyurea 500 mg oral capsule = 500 mg, By Mouth, Daily, for 30 days, # 30 capsule, 0 Refills, Acute 11/15/23 15:53:00 EDT, 10/16/23 15:53:00 EDT, Capsule, [facility]/pharmacy #[id number], Partial fill [...] 12 hours, PRN as needed for pain, has CSA Reviewed Ritika, # 28 tablet, 0 Refills, Maintenance, 10/11/23 13:02:00 EDT, Tablet, [facility]/pharmacy #[id number], Partial fill uponpatient request if the prescription is for a sched... 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 Carmen Elizabeth [phone] Confirmed Active Therapeutic drug monitoring Confirmed Active Peripheral neuropathy Confirmed Active Right spastic hemiparesis Confirmed Active Spasticity Confirmed Active Tobacco dependence Confirmed Active Social History Social History Type Response Smoking Status 5-9 cigarettes (betw een 1/4 to 1/2 pack)/day in last 30 days entered on: 05/16/22 Sex Patient Care team information Care Team Personnel Name: Anu Lipscomb RN Position: [facility] RN Member Role: Primary Care Nurse Name: Jeanne Bryant RN Position: [facility] RN Member Role: Primary Care Nurse Name: Mitch Guido RN Position: [facility] RN Member Role: Primary Care Nurse Name: Areli Pittman RN Position: [facility] ED RN W/OE and Tasks Member Role: Primary Care Nurse Name: Derek Tomas MD Position: [facility] Resident Member Role: PCP Address: Address: [address] [place] [address] [id number] Name: Monique Irwin LPN Position: [facility] RN Member Role: Primary Care Nurse Name: Lianna Epstein RN Position: [facility] RN Member Role: Primary Care Nurse Name: Mk Knutson LPN Position: [facility] RN Member Role: Primary Care Nurse Name: Farhana Garcia RN Position: [facility] RN Member Role: Primary Care Nurse Name: Kenyatta Villegas RN Position: [facility] RN Member Role: Primary Care Nurse Name: Albertina Adams RN Position: [facility] RN Member Role: Primary Care Nurse Name: Ricardo Russell RN Position: [facility] RN Member Role: Primary Care Nurse Name: Gissell Jernigan RN Position: [facility] RN Member Role: Primary Care Nurse Name: Farhana Green RN Position: [facility] RN Member Role: Primary Care Nurse Name: Cydney Delgado RN Position: [facility] RN Member Role: Primary Care Nurse Name: Sharon Mendez RN Position: [facility] RN Member Role: Primary Care Nurse Name: Mookie Christianson RN Position: [facility] RN Member Role: Primary Care Nurse Name: Ally Boyd RN Position: [facility] RN Member Role: Primary Care Nurse Name: Javed Oneill RN Position: [facility] RN Member Role: Primary Care Nurse Name: Lynn Stewart RN Position: [facility] RN Member Role: Primary Care Nurse Name: Amanda Johnson RN Position: [facility] RN Member Role: Primary Care Nurse Name: Jolie Villalobos RN Position: [facility] RN Member Role: Primary Care Nurse Name: Axel Savage RN Position: [facility] RN Member Role: Primary Care Nurse Name: Dirk Driver RN Position: [facility] RN Member Role: Primary Care Nurse Name: Glenys Bee RN Position: [facility] RN Member Role: Primary Care Nurse Name: Praveen Maurer RN Position: [facility] RN Member Role: Primary Care Nurse Name: Filemon King RN Position: [facility] RN Member Role: Primary Care Nurse Name: Lauren Guevara RN Position: [facility] RN Member Role: Primary Care Nurse Name: Annamaria Quinn RN Position: [facility] RN Member Role: Primary Care Nurse Name: Lashawn Nagy RN Position: [facility] RN Member Role: Primary Care Nurse Name: Rhonda Tate LPN Position: [facility] RN Member Role: Primary Care Nurse Name: Jacquelin Naranjo RN Position: [facility] RN Member Role: Primary Care Nurse Name: Glenys Fox RN Position: [facility] RN Member Role: Primary Care Nurse Care Team Related Persons Name: BEVERLY REYNAGA Address: home [place], [place] Name: HEENA MCQUEEN Address: home [address] [place], [place] Name: AISLINN DE LA PAZ Address: home [address] [place] [address]
--- OUTSIDE RECORDS SUMMARY | 2024-01-21 19:31 | XMS_ITS | Continuity of Care Document ---
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 Name Role Phone Derek Tomas MD Primary Care Physician Encounter [facility] [place] Date(s): 10/11/23 - 12/01/[address] [address]- Attending Physician: Not on Staff, Attending MD [...] 06/17/23 8:53:00 EST, Route to Pharmacy Electronically, [facility], Partial fill upon patient [...] 08/06/23 9:00:00 EDT, Route to Pharmacy Electronically, [facility]/pharmacy #[id number], 182, cm, 07/26/23 9:16:00 EDT, Height, 89, kg, 07/03/23 11:22:00 EST, Dry Weight Start Date: 08/06/23 Status: Ordered clindamycin 1% topical gel APPLY TO AFFECTED AREA TOPICALLY TWICE A DAY Start Date: 11/17/23 Status: Ordered docusate sodium 100 mg oral capsule 1 capsule, By Mouth, 2 times a day, # 60 capsule, 11 Refills, Maintenance, 09/03/23 17:44:00 EDT, [id number], 193, cm, 09/03/23 14:09:00 EDT, Height, 91.4, kg, 08/30/23 12:03:00 EDT, Dry Weight Start Date: 09/03/23 Status: Ordered duloxetine 30 mg oral enteric coated capsule 1 capsule = 30 mg, By Mouth, 2 times a day, TAKE 1 CAPSULE BY MOUTH EVERY DAY, # 60 capsule, 6 Refills, Maintenance, 10/25/23 15:39:00 EDT, Capsule, [facility]/pharmacy #[id number], Partial fill upon [...] 0 Refills, Maintenance, 10/16/23 15:51:00 EDT, [facility], 193, cm, 10/04/23 3:49:00 EDT, Height, 90.4, [...] tablet, 11 Refills, Maintenance, 08/12/23 13:51:00EDT, Tablet, [facility]/pharmacy #[id number], Partial fill upon [...] 12/24/23 13:33:00 EDT, 11/26/23 13:33:00 EDT, Tablet, [facility]/pharmacy #[id number], Partial fill upon [...] 08/12/23 13:51:00 EDT, Route to Pharmacy Electronically, [facility]/pharmacy #[id number], Partial fill upon patient request if the [...] 0 Refills, Maintenance, 07/16/23 10:05:00 EST, Tablet, [facility], Partial fill upon patient [...] Team Personnel Name: Anu Lipscomb RN Position: [facility] RN Member Role: Primary Care Nurse Name: Jeanne Bryant RN Position: [facility] RN Member Role: Primary Care Nurse Name: Mitch Guido RN Position: [facility] RN Member Role: Primary Care Nurse Name: Areli Pittman RN Position: [facility] ED RN W/OE and Tasks Member Role: Primary Care Nurse Name: Derek Tomas MD Position: [facility] Resident Member Role: PCP Address: Address: [address] [place] [address] Name: Mari Suh RN Position: [facility] RN Member Role: Primary Care Nurse Name: Monique Irwin LPN Position: [facility] RN Member Role: Primary Care Nurse Name: Lianna Epstein RN Position: [facility] RN Member Role: Primary Care Nurse Name: Austin Wright RN Position: [facility] RN Member Role: Primary Care Nurse Name: Mk Knutson LPN Position: [facility] RN Member Role: Primary Care Nurse Name: Betty Fonseca RN Position: [facility] RN Member Role: Primary Care Nurse Name: Farhana Garcia RN Position: [facility] RN Member Role: Primary Care Nurse Name: Kenyatta Villegas RN Position: [facility] RN Member Role: Primary Care Nurse Name: Albertina Adams RN Position: [facility] RN Member Role: Primary Care Nurse Name: Ricardo Russell RN Position: [facility] RN Member Role: Primary Care Nurse Name: Gissell Jernigan RN Position: [facility] RN Member Role: Primary Care Nurse Name: Farhana Green RN Position: [facility] RN Member Role: Primary Care Nurse Name: Cydney Delgado RN Position: [facility] RN Member Role: Primary Care Nurse Name: Debbie Rios RN Position: [facility] [...] Care Nurse Name: Frances Quach RN Position: [facility] RN Member Role: Primary Care Nurse Name: Sandie Mejia RN Position: [facility] RN Member Role: Primary Care Nurse Name: Kriss Castillo RN Position: [facility] [...] Nurse Name: Praveen Maurer RN Position: [facility] RN Member Role: Primary Care Nurse Name: Filemon King RN Position: [facility] RN Member Role: Primary Care Nurse Name: Gomez Corona RN Position: [facility] [...] Nurse Name: Rhonda Tate LPN Position: [facility] RN Member Role: Primary Care Nurse Name: Jacquelin Naranjo RN Position: [facility] RN Member Role: Primary Care Nurse Name: Glenys Fox RN Position: [facility] RN Member Role: Primary Care Nurse Name: Reilly Moreno RN Position: [facility] RN Member Role: Primary Care Nurse Care Team Related Persons Name: BEVERLY REYNAGA Address: home [address] [place] [address] Name: HEENA MCQUEEN Address: home [address] [place] [address] Name: AISLINN DE LA PAZ Address: home [address] [place] [id number]
--- OUTSIDE RECORDS SUMMARY | 2024-01-21 19:31 | XMS_ITS | Continuity of Care Document ---
Author Organization [facility] Address [address] [place] [address]- Care Team Providers Care Document Clerk Name Role Phone Derek Tomas MD Primary Care Physician [place] [facility] [place]23 - 07/05/[address] [address]- Allergies, Adverse Reactions, Alerts No Known Allergies [...] 06/17/23 8:53:00 EST, Route to Pharmacy Electronically, [facility], Partial fill upon patient request if the prescription is for a schedule II opioid... Start Date: 06/17/23 Status: Ordered baclofen 20 mg oral tablet 20 mg, 1, tablet, By Mouth, 4 times a day, # 120 tablet, Refills 0, Tot. Refills 0, Maintenance, 06/03/23 13:25:00 EST, Route to Pharmacy Electronically, [facility], 193, cm, 06/01/23 9:54:00 EST, Height, 90.9, kg, 06/01/23 9:54:00 EST,... Start Date: 06/03/23 Status: Ordered duloxetine 30 mg oral enteric coated capsule 1 capsule, By Mouth, Daily, # 30 capsule, 5 Refills, Maintenance, 06/12/23 6:45:00 EST, [facility]/pharmacy #[id number], 193, cm, 06/01/23 9:54:00 EST, Height, 90.9, kg, 06/01/23 9:54:00 EST, Dry Weight Start Date: 06/12/23 Status: Ordered Eliquis 5 mg oral tablet See Instructions, TAKE 1 TABLET BY MOUTH TWICE A DAY, # 60 tablet, 11 Refills, Maintenance, 06/12/23 6:31:00 EST, [facility] [id number], 193, cm, 06/01/23 9:54:00 EST, Height, 90.9, kg, 06/01/23 9:54:00 EST, Dry Weight Start Date: 06/12/23 Status: Ordered ferrous sulfate 325 mg oral tablet 1 tablet = 325 mg, By Mouth, Daily, TAKE 1 TABLET BY MOUTH EVERY DAY, # 30 tablet, 0 Refills, Maintenance, 06/12/23 6:46:00 EST, Tablet, [facility]/pharmacy #[id number], Partial fill upon patient [...] 06/12/23 6:46:00 EST, Route to Pharmacy Electronically, [facility]/pharmacy #[id number], Partial fill upon... 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 Carmen Elizabeth [phone] Confirmed Active Therapeutic drug monitoring Confirmed Active [...] Care Nurse Name: Areli Pittman RN Position: [facility] ED RN W/OE and Tasks Member Role: Primary Care Nurse Name: Derek Tomas MD Position: S Resident Member Role: PCP Address: Address: [address] [place] [address] Name: Farhana Green RN Position: S RN [...] Care Nurse Name: Filemon King RN Position: [facility] RN Member Role: Primary Care Nurse Name: Lauren Guevara RN Position: [facility] RN Member Role: Primary Care Nurse Name: Lashawn Nagy RN Position: [facility] RN Member Role: Primary Care Nurse Name: Glenys Fox RN Position: [facility] RN Member Role: Primary Care Nurse Care Team Related Persons Name: BEVERLY REYNAGA Address: [place] [address] Name: AISLINN DE LA PAZ Address: home [address] [place] [address]
--- OUTSIDE RECORDS SUMMARY | 2024-01-21 19:32 | XMS_ITS | Continuity of Care Document ---
Author Organization [facility] Address [address] [place] [address]- Care Team Providers Care Media Clerk Name Role Phone Derek Tomas MD Primary Care Physician [place] [facility] [place] 07/07/23 [facility] [address]- [place] Allergies, Adverse Reactions, Alerts No Known Allergies [...] 06/17/23 8:53:00 EST, Route to Pharmacy Electronically, [facility], Partial fill upon patient request if the prescription is for a schedule II opioid... Start Date: 06/17/23 Status: Ordered baclofen 20 mg oral tablet 20 mg, 1, tablet, By Mouth, 4 times a day, # 120 tablet, Refills 0, Tot. Refills 0, Maintenance, 06/03/23 13:25:00 EST, Route to Pharmacy Electronically, [facility], 193, cm, 06/01/23 9:54:00 EST, Height, 90.9, kg, 06/01/23 9:54:00 EST,... Start Date: 06/03/23 Status: Ordered duloxetine 30 mg oral enteric coated capsule 1 capsule, By Mouth, Daily, # 30 capsule, 5 Refills, Maintenance, 06/12/23 6:45:00 EST, [facility]/pharmacy #[id number], 193, cm, 06/01/23 9:54:00 EST, Height, 90.9, kg, 06/01/23 9:54:00 EST, Dry Weight Start Date: 06/12/23 Status: Ordered Eliquis 5 mg oral tablet See Instructions, TAKE 1 TABLET BY MOUTH TWICE A DAY, # 60 tablet, 11 Refills, Maintenance, 06/12/23 6:31:00 EST, [facility], 193, cm, 06/01/23 9:54:00 EST, Height, 90.9, kg, 06/01/23 9:54:00 EST, Dry Weight Start Date: 06/12/23 Status: Ordered ferrous sulfate 325 mg oral tablet 1 tablet = 325 mg, By Mouth, Daily, TAKE 1 TABLET BY MOUTH EVERY DAY, # 30 tablet, 0 Refills, Maintenance, 06/12/23 6:46:00 EST, Tablet, [facility]/pharmacy #[id number], Partial fill upon patient [...] 06/12/23 6:46:00 EST, Route to Pharmacy Electronically, [facility]/pharmacy #[id number], Partial fill upon... 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 Carmen Elizabeth [phone] Confirmed Active Therapeutic drug monitoring Confirmed Active Peripheral neuropathy Confirmed Active Right spastic hemiparesis Confirmed Active Spasticity Confirmed Active Tobacco dependence Confirmed Active Social History Social History Type Response Smoking Status 5-9 cigarettes (betw een 1/4 to 1/2 pack)/day in last 30 days entered on: 05/16/22 Sex Patient Care team information Care Team Personnel Name: Anu Lipscomb Position: [facility] RN Member Role: Primary Care Nurse Name: Areli Pittman RN Position: [facility] ED RN W/OE and Tasks Member Role: Primary Care Nurse Name: Derek Tomas MD Position: [facility] Resident Member Role: PCP Address: Address: [address] [place] [address]- Name: Farhana Green RN Position: S RN Member Role: Primary Care Nurse Name: Ally Boyd RN Position: [facility] RN Member Role: Primary Care Nurse Name: Lynn Stewart RN Position: [facility] RN Member Role: Primary Care Nurse Name: Jolie Villalobos RN Position: [facility] RN Member Role: Primary Care Nurse Name: Axel Savage RN Position: [facility] RN Member Role: Primary Care Nurse Name: Glenys Bee RN Position: [facility] RN Member Role: Primary Care Nurse Name: Filemon King RN Position: S RN Member Role: Primary Care Nurse Name: Lauren Guevara RN Position: [facility] RN Member Role: Primary Care Nurse Name: Lashawn Nagy RN Position: [facility] RN Member Role: Primary Care Nurse Name: Glenys Fox RN Position: [facility] RN Member Role: Primary Care Nurse Care Team Related Persons Name: BEVERLY REYNAGA Address: [place] [address] Name: AISLINN DE LA PAZ Address: home [address] [place] [address]
--- OUTSIDE RECORDS SUMMARY | 2024-01-21 19:32 | XMS_ITS | Continuity of Care Document ---
Author Organization [facility] ter Address [address] [place] [id number]- Care Team Providers Care Manager Equipment Name Role Phone Derek Tomas MD Primary Care Physician [place] [facility]): 11[place]18/23 - 11/20/[address] [address]- Encounter Diagnosis Uncontrolled pain(Final) - 11/19/23 Discharge Disposition: A-Transfer VNA/Home Health Attending Physician: Sandra PAGAN, Timmy Ward Admitting Physician: Peyton Dang DO Referring Physician: Not on Staff, Referring [...] Acute 05/12/2415:40:00 EST, 10/25/23 15:40:00 EDT, Tablet, [facility]/pharmacy #[id number], Partial fill upon patient request if the prescription is for a schedule II opioid drug... Start Date: 10/25/23 Stop Date: 05/12/24 Status: Ordered amLODIPine 5 mg oral tablet 5 mg, 1, tablet, By Mouth, Daily, # 30 tablet, Refills 0, Tot. Refills 0, Maintenance, 06/17/23 8:53:00 EST, Route to Pharmacy Electronically, [facility], Partial fill upon patient request if the prescription is for a schedule II opioid... Start Date: 06/17/23 Status: Ordered ascorbic acid 500 mg oral tablet 1 tablet = 500 mg, By Mouth, Daily, # 30 tablet, 0 Refills, Maintenance, 09/06/23 12:42:00 EDT, Tablet, [facility]/pharmacy #[id number], Partial fill upon patient request if the prescription is for a schedule II opioid drug., 193, cm, 09/05/23 19:48:00 EDT, Height... Start Date: 09/06/23 Status: Ordered baclofen 10 mg oral tablet 20 mg, Tablet, By Mouth, 11/20/23 13:00:00 EDT Start Date: 11/20/23 Stop Date: 11/20/23 Status: Completed baclofen 20 mg oral tablet 20 mg, 1, tablet, By Mouth, 4 times a day, # 120 tablet, Refills 5, Tot. Refills 5, Maintenance, 08/06/23 9:00:00 EDT, Route to Pharmacy Electronically, [facility]/pharmacy #[id number], 182, cm, 07/26/23 9:16:00 EDT, Height, 89, kg, 07/03/23 11:22:00 EST, Dry Weight Start Date: 08/06/23 Status: Ordered clindamycin 1% topical gel APPLY TO AFFECTED AREA TOPICALLY TWICE A DAY Start Date: 11/17/23 Status: Ordered docusate sodium 100 mg oral capsule 1 capsule, By Mouth, 2 times a day, # 60 capsule, 11 Refills, Maintenance, 09/03/23 17:44:00 EDT, [id number], 193, cm, 09/03/23 14:09:00 EDT, Height, 91.4, kg, 08/30/23 12:03:00 EDT, Dry Weight Start Date: 09/03/23 Status: Ordered duloxetine 30 mg oral enteric coated capsule 1 capsule = 30 mg, By Mouth, 2 times a day, TAKE 1 CAPSULE BY MOUTH EVERY DAY, # 60 capsule, 6 Refills, Maintenance, 10/25/23 15:39:00 EDT, Capsule, [facility]/pharmacy #[id number], Partial fill upon patient request [...] 0 Refills, Maintenance, 10/16/23 15:51:00 EDT, [id number], 193, cm, 10/04/23 3:49:00 EDT, Height, 90.4, [...] oral capsule 600 mg, Capsule, By Mouth, 11/20/23 15:00:00 EDT Start Date: 11/20/23 Stop Date: 11/20/23 Status: Completed gabapentin 600 mg oral tablet 1 tablet = 600 mg, By Mouth, 3 times a day, # 90 tablet, 11 Refills, Maintenance, 08/12/23 13:51:00EDT, Tablet, [facility]/pharmacy #[id number], Partial fill upon patient request [...] 11/26/23 14:52:00 EDT, 11/19/23 14:52:00 EDT, Tablet, [facility], Partial fill upon patient request if... Start Date: 11/19/23 Stop Date: 11/26/23 Status: Ordered oxyCODONE 5 mg oral tablet 30 mg, Tablet, By Mouth, Every 4 hours, Hold for: LETHARGY, RR < 10, OVERSEDATION, PRN for Pain , Moderate, Routine, 11/17/23 13:23:00 EDT Start Date: 11/17/23 Stop Date: 11/21/23 Status: Discontinued pantoprazole 40 mg oral delayed [...] 08/12/23 13:51:00 EDT, Route to Pharmacy Electronically, [facility]/pharmacy #[id number], Partial fill upon patient request if the [...] 0 Refills, Maintenance, 07/16/23 10:05:00 EST, Tablet, [facility], Partial fill upon patient [...] oldest [Reference Range]: 1 2 3 Height 194 cm (11/20/23 1:14 PM) 194 cm (11/20/23 12:06 PM) 194 cm (11/20/23 12:06 PM) Weight 93.9 kg (11/16/23 10:45 PM) Oxygen Saturation [94-100 %] 96 % (11/20/23 1:14 PM) 95 % (11/20/23 12:06 PM) 95 % (11/20/23 12:06 PM) Pulse Rate [55-90 bpm] 87 bpm (11/20/23 1:14 PM) 86 bpm (11/20/23 12:06 PM) 86 bpm (11/20/23 12:06 PM) Body Mass Index [18.5-24.99 kg/m2] 24.95 kg/m2 (11/16/23 10:45 PM) Blood Pressure [90-138/55-84 mm Hg] 126/68mm Hg (11/20/23 1:14 PM) 121/89mm Hg (11/20/23 12:06 PM) 121/89mm Hg (11/20/23 12:06 PM) Respiratory Rate [16-30 br/min] 18 br/min (11/20/23 2:09 PM) 18 br/min (11/20/23 2:09 PM) 18 br/min (11/20/23 2:09 PM) Temperature [96.8-100.4 DegF] 99.1 DegF (11/20/23 1:14 PM) 98.2 DegF (11/20/23 12:06 PM) 98.2 DegF (11/20/23 12:06 PM) Mode of Delivery (Oxygen) Room air (11/20/23 1:14 PM) Room air (11/20/23 12:06 PM) Room air (11/20/23 12:06 PM) Blood pressure sites Arm, left (11/20/23 1:14 PM) Arm, left (11/20/23 12:06 PM) Arm, left (11/20/23 12:06 PM) Temperature Route Oral (11/20/23 1:14 PM) Oral (11/20/23 12:06 PM) Oral (11/20/23 12:06 PM) Dry Weight 93.9 kg (11/16/23 10:45 PM) 91 kg (11/16/23 8:13 PM) 91 kg (11/16/23 3:21 PM) Weight Obtained Via Bed scale (11/16/23 10:45 PM) Social History Social History Type Response Smoking Status 5-9 cigarettes (betw een 1/4 to 1/2 pack)/day in last 30 days entered on: 05/16/22 Sex Consult note * Dirk Encinas MD: SIGN Dirk Encinas MD: SIGN, MODIFY Dirk Encinas MD: MODIFY, MODIFY, SIGN, VERIFY Event Display: Consult Authored Date: [id number] Patient: DAVID MCQUEEN Age: 38 years Sex: Male : 1985 Associated Diagnoses: None Author: Litzy Dietrich DO Visit Information Visit Type Pain consultation. Source of History Patient. Chief Complaint:: right buttock pain. History of Present Illness Patient is a 38-year-old male with a past medical history of ischemic stroke with right-sided residual hemiparesis, expressive aphasia, intracardiac thrombus anticoagulated on Eliquis, hypertension, severe hidradenitis suppurativa s/p multiple I&Ds with associated chronic pain on opiates, and multiple admissions the past month for intractable gluteal pain who presented to the emergency department for persistent pain of his right gluteal region. Patient was recently discharged on 11/03 with OxyContin 20 mg every 8 hours. Per chart review, patient's insurance only covers 60 mg of oxycodone daily, which patient notes does not improve his pain. Patient discharged on 10/22 with oxycodone 30mg Q12h. Patient reports that he has had meaningful relief from oxycodone 30mg TID. During prior hospitalizations he has been on oxycodone 30mg q4h and then weaned at the time of discharge. Patient reports he has tried morphine in the past with no relief. He reports he does not want to be on buprenorphine or methadone. APS was consulted for acute on chronic pain. Current pain medication recommendations: [id number] q6h, baclofen 20mg QID, duloxetine 30mg BID, gabapentin 600mg TID, oxycodone ER 20mg q8h, dilaudid IV 2mg q4h PRN, tizanidine 4mg q8h PRN. He reports that currently the oxycontin 20mg does nothing for his pain. He states that the IV dilaudid helps bring his pain down from a 10/10 to a 7/10 and will last about 2-2.5 hours. Patient reports is just in his right buttock area. At baseline has right sided hemiparesis, reports he does not ambulate. Past Medical History Procedure/Surgical Profile Operative procedure on hip ([id number]) in 2000 at 15 Years. Problem list All Problems Chronic ischemic left ICA stroke / SNOMED CT 8521319326 / Confirmed Chronic pain / SNOMED CT 266650787 / Confirmed Controlled substance agreement signed 10/16/22 / SNOMED CT 414662297 / Confirmed Depression / SNOMED CT 07311660 / Confirmed GERD (gastroesophageal reflux disease) / SNOMED CT 199465605 / Confirmed Hidradenitis suppurativa / SNOMED CT 74329795 / Confirmed History of ischemic stroke / SNOMED CT 0272498719 / Confirmed Hypertension / SNOMED CT 0085512061 / Confirmed PATY (iron deficiency anemia) / SNOMED CT 293243311 / Confirmed Insomnia / SNOMED CT 992874926 / Confirmed Iron deficiency anemia / SNOMED CT 096232212 / Confirmed Mural thrombus of cardiac apex / SNOMED CT 472345061 / Confirmed Peripheral neuropathy / SNOMED CT 120386407 / Confirmed Right spastic hemiparesis / SNOMED CT 517461613 / Confirmed Spasticity / SNOMED CT 185281664 / Confirmed Therapeutic drug monitoring / SNOMED CT 025927273 / Confirmed Thrombocytosis / SNOMED CT 41349757 / Confirmed Tobacco dependence / SNOMED CT 5373342710 / Confirmed Wound of buttock / SNOMED CT 92027102 / Confirmed Allergies Allergic Reactions (Selected) NKA Physical Examination * General and Vital signs: well appearing, in no acute distress, alert and oriented x3 * HEENT: head normocephalic, atraumatic, sclerae are anicteric * Pulmonary: speaking full sentences, non labored breathing * Skin: warm and well perfused * Neuro: ~ Cranial nerve exam: cranial nerves 2-12 grossly nonfocal patient has an expressive aphasia, uses fingers to count * Musculoskeletal: moves left upper and lower extremity against gravity no movement of right upper extremity able to wiggle great toe of right foot and hip flex RLE off bed Results Review Results Today's Results : ALL RESULT SECTIONS 11/17/2023 0:46 EDT WBC 7.6 k/mm3 RBC 3.29 m/mm3 L Hgb 8.5 Gm/dL L Hct 28.7 % L MCV 87.2 femtoliters MCH 25.8 pg L MCHC 29.6 g/dL L Platelet Count 603 k/mm3 H RDW-SD 63.7 femtoliters H MPV 8.4 femtoliters L Nucleated RBC (Automated) 0.0 #/100 WBC'S Abs. NRBC 0.0 k/mm3 Abs. Neut 4.7 k/mm3 Abs. Lymph 2.0 k/mm3 Abs. Hall 0.8 k/mm3 Abs. Eo 0.2 k/mm3 Abs. Baso 0.0 k/mm3 Neut % 60.9 % Lymph % 26.3 % Hall % 9.9 % Eos % 2.0 % Baso % 0.5 % Imm Gran 0.4 % Abs. Imm Gran 0.0 k/mm3 Sodium 138 mmol/L Potassium 4.6 mmol/L Chloride 103 mmol/L Bicarbonate Level 23 mmol/L Anion Gap 12 Glucose Level 90 mg/dL BUN 21 mg/dL H Creatinine-Blood 0.77 mg/dL Estimated GFR Creatinine 118 ML/MIN/1.73 M2 Calcium 8.7 mg/dL Protein, Total 7.4 Gm/dL Albumin 3.5 Gm/dL AG Ratio 0.9 Alkaline Phosphatase 133 units/L H AST (SGOT) 11 units/L ALT (SGPT) 6 units/L Bilirubin, Total 0.2 mg/dL Vital SignsTemperature : Temperature 11/17/2023 10:30 EDT Temperature 98.5 DegF 11/17/2023 8:14 EDT Temperature 97.7 DegF 11/17/2023 6:00 EDT Temperature 98.1 DegF 11/16/2023 22:45 EDT Temperature 97.7 DegF (Modified) 11/16/2023 15:21 EDT Temperature 99.4 DegF 11/16/2023 10:45 EDT Temperature Date\Time Correction Pulse Rate : Pulse Rate 11/17/2023 10:30 EDT Pulse Rate 65 bpm 11/17/2023 8:14 EDT Pulse Rate 63 bpm 11/17/2023 6:00 EDT Pulse Rate 54 bpm L 11/16/2023 22:45 EDT Pulse Rate 65 bpm (Modified) 11/16/2023 20:13 EDT Pulse Rate 64 bpm 11/16/2023 17:34 EDT Pulse Rate 74 bpm 11/16/2023 16:34 EDT Pulse Rate 69 bpm 11/16/2023 15:21 EDT Pulse Rate 79 bpm 11/16/2023 10:45 EDT Pulse Rate Date\Time Correction Respiratory Rate : Respiratory Rate 11/17/2023 10:30 EDT Respiratory Rate 16 br/min 11/17/2023 8:20 EDT Respiratory Rate 17 br/min 11/17/2023 8:16 EDT Respiratory Rate 17 br/min 11/17/2023 8:15 EDT Respiratory Rate 17 br/min Respiratory Rate 17 br/min 11/17/2023 8:14 EDT Respiratory Rate 17 br/min 11/17/2023 6:00 EDT Respiratory Rate 16 br/min 11/17/2023 4:31 EDT Respiratory Rate 18 br/min 11/17/2023 4:01 EDT Respiratory Rate 18 br/min 11/17/2023 2:25 EDT Respiratory Rate 18 br/min 11/17/2023 1:25 EDT Respiratory Rate 18 br/min 11/17/2023 0:25 EDT Respiratory Rate 18 br/min 11/16/2023 23:55 EDT Respiratory Rate 18 br/min 11/16/2023 23:42 EDT Respiratory Rate 18 br/min Respiratory Rate 18 br/min 11/16/2023 22:45 EDT Respiratory Rate 16 br/min (Modified) 11/16/2023 22:42 EDT Respiratory Rate 18 br/min 11/16/2023 22:41 EDT Respiratory Rate In Error br/min (In Error) 11/16/2023 20:30 EDT Respiratory Rate 17 br/min 11/16/2023 20:13 EDT Respiratory Rate 20 br/min 11/16/2023 19:31 EDT Respiratory Rate 16 br/min 11/16/2023 17:34 EDT Respiratory Rate 17 br/min 11/16/2023 17:30 EDT Respiratory Rate 18 br/min 11/16/2023 16:56 EDT Respiratory Rate 18 br/min 11/16/2023 16:34 EDT Respiratory Rate 18 br/min 11/16/2023 16:26 EDT Respiratory Rate 18 br/min 11/16/2023 16:17 EDT Respiratory Rate 18 br/min 11/16/2023 15:47 EDT Respiratory Rate 18 br/min 11/16/2023 15:21 EDT Respiratory Rate 18 br/min 11/16/2023 10:45 EDT Respiratory Rate Date\Time Correction SBP/DBP Cuff : SBP/DBP Cuff 11/17/2023 10:30 EDT Systolic Blood Pressure 116 mm Hg Diastolic Blood Pressure 64 mm Hg 11/17/2023 8:14 EDT Systolic Blood Pressure 121 mm Hg Diastolic Blood Pressure 59 mm Hg 11/17/2023 6:00 EDT Systolic Blood Pressure 137 mm Hg Diastolic Blood Pressure 65 mm Hg 11/16/2023 22:45 EDT Systolic Blood Pressure 138 mm Hg (Modified) Diastolic Blood Pressure 69 mm Hg (Modified) 11/16/2023 20:13 EDT Systolic Blood Pressure 106 mm Hg Diastolic Blood Pressure 68 mm Hg 11/16/2023 17:34 EDT Systolic Blood Pressure 117 mm Hg Diastolic Blood Pressure 74 mm Hg 11/16/2023 16:34 EDT Systolic Blood Pressure 116 mm Hg Diastolic Blood Pressure 66 mm Hg 11/16/2023 15:21 EDT Systolic Blood Pressure 115 mm Hg Diastolic Blood Pressure 55 mm Hg 11/16/2023 10:45 EDT Systolic Blood Pressure Date\Time Correction Diastolic Blood Pressure Date\Time Correction O2 Sat : Oxygen Saturation 11/17/2023 10:30 EDT Oxygen Saturation 97 % 11/17/2023 8:14 EDT Oxygen Saturation 100 % 11/17/2023 6:00 EDT Oxygen Saturation 95 % 11/16/2023 22:45 EDT Oxygen Saturation 96 % (Modified) 11/16/2023 20:13 EDT Oxygen Saturation 96 % 11/16/2023 17:34 EDT Oxygen Saturation 95 % 11/16/2023 16:34 EDT Oxygen Saturation 95 % 11/16/2023 15:21 EDT Oxygen Saturation 98 % 11/16/2023 10:45 EDT Oxygen Saturation Date\Time Correction Impression and Plan Pt is a 38yo M with PMH of ICA stroke with right sided spastic hemiparesis, mural thrombus of cardiac apex on Eliquis, and hidradenitis suppurativa with acute on chronic right gluteal pain. APS consulted for pain control. Pt currently taking baclofen 20mg QID, tizanidine 4mg q8h PRN, Gabapentin 600mg TID, Duloxetine 30mg BID, Tylenol 650mg q4h, Oxycodone ER 20mg q8h, and IV Dilaudid 2mg q4h PRN. Patient is reporting 10/10 pain on current regimen. Patient has had meaningful relief during prior hospitalizations on oxycodone 30mg q4h PRN. Recommendations: - Consider discontinuing OxyContin and start oxycodone IR 30mg q4h PRN for acute pain. Patient has had meaningful benefit from this regimen during prior hospitalizations. We will need to coordinate with primary team and PCP regarding appropriate outpatient regimen as per chart review it appears patient's insurance only covers 60mg of oxycodone/day. May consider rotation to other opioid medicationlike buprenorphine vs. morphine. - Continue IV Dilaudid 2mg q4h for severe breakthrough pain only. Plan to wean once pain is better controlled. - Continue Duloxetine 30mg QD - Continue Gabapentin 600mg TID - Continue Tylenol 650mg q4h - Consider NSAIDs if appropriate - Bowel regimen - Ensure physical therapy and OOB as tolerated - APS will continue to follow Discussed with APS attending professional soccer player Dr. Encinas Thank you allowing [facility] to participate in the care of this patient. Please page [phone] with any questions. * Ce PAGAN, Dirk Matamoros: PERFORM Event Display: Consult Authored Date: Patient seen and examined with fellow physician. Underlying cause of pain right side acute on chronic gluteal pain in the setting of hidradenitis suppurativa. Patient gets good benefit from [id number] mg every 4 hour. I was signed out that the patient has issues obtaining this dosage of medication due to his insurance company. However when I discussed this with patient, he states that he does not know anything about any issues with insurance denial. For now, it is reasonable to stabilize his pain medication with his dose that works for him. However, I think the greater issue going to be finding a way to prevent this patient from bounce back to the hospital given that his pain is unlikely to significantly stabilize in the near future. If he has a physician who is willing to prescribe as outpatient, would be interesting to consider utilization of buccal buprenorphine in the treatment of his pain. Nor to convert to this, he would need to reduce his dose of oxycodone to 10 mg twice daily which would understandably be very uncomfortable for him for 2 days time. After this, would start buccal buprenorphine at 300 mcg twice daily with gradual increase to effect. Patient would likely require several days time. Over which dose wouldbe titrated to effect. I anticipate he would likely require 600 to 900 mcg twice daily before he would achieve meaningful pain benefit. I think if this process is well explained to patient and there is outpatient support of transitioning him to buccal buprenorphine, both providers and insurance open he is may find this to be a safer and more reasonable solution helping to manage this patient's pain. It will take some time to get him to the appropriate dose but it may help to him to keep from returning to the hospital. I tried to initiate this conversation with him tonight, but he was frustrated discussing the insurance issue as well as buprenorphine and I was unable to make any headway tonight. I would continue this discussion over the course of this patient's hospital admission were possible. All questions answered. Is a pleasure to meet this patient in consultation. Admission evaluation note * Nan PAGAN, Zenaida Lockett: MODIFY Zenaida Montana MD: MODIFY Event Display: Admission Note Authored Date: Patient: ??DAVID MCQUEEN ? Age:??38 Years?Sex:??Male?:??1985?? Chief Complaint/Reason for Consultation BIBA from home for r buttock pressure ulcer. Stage 1 per EMS. Hx CVA r sided deficits- no change indeficits according to pt. History of Present Illness Patient is a 38-year-old male with a past medical history of ischemic stroke with right-sided residual hemiparesis, expressive aphasia, intracardiac thrombus anticoagulated on Eliquis, hypertension, severe hidradenitis suppurativa with multiple I&D's s/p excision of left buttock in 2022 with associated chronic pain on opiates, and multiple admissions the past month for intractable gluteal pain who presented to the emergency department for persistent pain of his right gluteal region.?? Patient was recently discharged on 11/03 with OxyContin 20 mg every 8 hours.?? Per chart review, patient'sinsurance only covers 60 mg of OxyContin daily, which patient notes does not improve his pain.?? Patient was [facility] for follow-up of his stage III severe hidradenitis suppurativa.?? Per note, patient was previously on canakinumab injections and recalcitrant to multiple therapies with palliative care involvement. Lives alone.?? Has [facility] support 3 times aweek and his mom provides dressing changes once a week. ?? On presentation to the ED, patient was hemodynamically stable and afebrile.?? Labs with no significant changes from prior recent blood work on 11/03, including significantly elevated sed rate >130 and CRP 3.5.?? Patient received total 5 doses of IV Dilaudid 2 mg without significant improvement inpain. ?? At time my evaluation, patient remained hemodynamically stable, resting comfortably in bed.?? Despite the IV Dilaudid doses, patient states that his pain is 8 out of 10, localized to right buttock.?? Asking for pain meds.?? For multiple questions, states that he cannot say due to expressive aphasia.?? Denies headache, dizziness, nausea/vomiting, chest pain, SOB, abdominal pain, or difficultywith urination/BMs.?? Has at baseline right-sided hemiparesis, patient states that he cannot move his right upper/lower extremity at all. Review of Systems Limited ROS??due to??aphasia. ??As above Objective Vital Signs?? Temperature: 97.7 DegF (11/16/23 22:45:00) Temperature Route: Oral (11/16/23 22:45:00) Pulse Rate: 65 bpm (11/16/23 22:45:00) Respiratory Rate: 18 br/min (11/16/23 23:55:00) Systolic Blood Pressure: 138 mm Hg (11/16/23 22:45:00) Diastolic Blood Pressure: 69 mm Hg (11/16/23 22:45:00) Blood pressure sites: Arm, left (11/16/23 22:45:00) Mean Arterial Pressure: 92 mm Hg (11/16/23 22:45:00) Pulse Pressure: 69 mm Hg (11/16/23 22:45:00) Oxygen Saturation: 96 % (11/16/23 22:45:00) Mode of Delivery (Oxygen): Room air (11/16/23 22:45:00) Early Warning Score: 2 (11/16/23 23:56:13) ?? Physical Exam ??Constitutional: NAD,??expressive aphasia at baseline ??HEENT: Normocephalic. EOMI. Neck supple.?Moist mucous membrane ??Respiratory: CTAB, no respiratory distress ??Cardiac: RRR, no m/r/g ??Vascular: ??2+ DP pulses ??Gastrointestinal: abdomen is soft, nontender, nondistended. ??No hepatosplenomegaly ??Skin: Please see manager trust for photos.?? Multiple wounds and surgical scars of left and right buttocks with small, 1 cm open wounds with clear drainage and tenderness to palpation.?? No crepitus palpated. ??Musculoskeletal:??No LE edema ??Neuro:??Right-sided hemiparesis??from prior stroke. ??5 out of 5 muscle strength??in??left upper/lower extremity.?Psych: Normal affect Assessment/Plan Assessment:??David is a 38-year-old male with a past medical history of ischemic stroke with right-sided residual hemiparesis, expressive aphasia, intracardiac thrombus anticoagulated on Eliquis, hypertension, severe hidradenitis suppurativa with multiple I&D's s/p excision of left buttock in 2 023 with associated chronic pain on opiates, and multiple admissions the past month for intractablegluteal pain who is??admitted for IV pain management??in setting of??intractable pain of his right??gluteal region. ?? Intractable pain (R52):?? Hidradenitis suppurativa (L73.2):?? Chronic, continuous use of opioids (F11.90):?? Chronic pain syndrome (G89.4):?? Patient presenting with intractable pain of his right gluteal region with prior multiple admissionsfor poor pain control. Last CT pelvis with contrast on 10/20/2023 with findings significant for extensive hidradenitis suppurativa with superficial skin ulceration of the right gluteal region measuring up to 1.2 cm with no mention of fistula or abscess. Has been taking OxyContin 20 mg every 8 hours which inadequately controls his pain but unable to beprescribed higher doses due to insurance. Follows with pattern cutter at [facility], last visit on 09/18/2023.??Per note was on canakinumab injections and recalcitrant to multiple therapies with palliative care involvement. ?? Plan: -Continue oxycodone 20 mg every 8 hours scheduled -Scheduled Tylenol every 6 hours -As needed IV Dilaudid 2 mg every 4 hours for breakthrough pain -Will need to reach out to patient's [facility] cutter for further plan of care as this is patient's third admission for poor pain control -No indication for repeat imaging at this time -Wound care consult in the morning -Hold antibiotics for now ?? Chronic GERD (K21.9):??Continue home pantoprazole 40 mg daily ?? Hypertension (I10):??Continue home amlodipine 5 mg ?? Depression (F32.A):??Continue duloxetine 30 mg p.o. twice a day ?? Thrombocytosis (D75.839):??Continue home hydroxyurea ?? Iron deficiency anemia (D50.9):??Continue home iron ?? Intracardiac thrombosis (I51.3):??Patient anticoagulated on Eliquis ?? Right spastic hemiparesis (G81.11):??Continue home tizanidine as needed, and scheduled baclofen ? VTE Prophylaxis:??home apixaban ?VTE Prophylaxis Assessment:??VTE Prophylaxis Ordered ? Code Status:??Full, confirmed with patient?Order Code Status:??Code Status Ordered ?? Diet: Regular ?? Etta Martinez, DO Med-Peds PGY-3 Pager [phone] or [place] ?? This patient was seen and discussed with attending physician Dr. Montana. ? Attending Attestation: I have seen and evaluated this patient???11/16/2023 on S2 after he returns forevaluation??increasing??right gluteal pain??and drainage from his wounds without fever or chills??and is found to have a Tmax of 99.4 with otherwise normal vital signs, elevated ESR greater than 130 and CRP of 3.5 (down from 6.4)??and ongoing thrombocytosis with normal WBC?admitted for pain control. ??The patient has had multiple admissions for??uncontrolled??right gluteal pain??over the last several months. ??He was last seen by his pattern cutter on 09/21/[facility].?? He??was able to confirm that he is still taking immunologic???canakinumab??as well as topical clindamycin and steroid? ?for??treatment??of??severe??grade 3??hidradenitis suppurativa??but continues to have uncontrolled pain on oxycodone ER 20 mg every 8 hours (max dose but is covered by his insurance per??prior documentation)??as well as??concomitant gabapentin, duloxetine, baclofen??with his history of??spasticity after previous stroke. ??We are currently just providing supportive care and wound care. ??He has had multiple CT images??most recently about 4 weeks ago???unclear??at this time if we need to further image??patient but repeat CT scan as needed consideration pending wound care consultation??and discussion with the patient's pattern cutter.?Had not initiated any antibiotics??at this time as there is no definite??evidence of acute infectious process. ??I have discussed the case and its managementwith the resident and agree with the findings and plan as documented in the resident??s note. ?? [] ?? Histories Allergies Allergies ?(Active and Proposed Allergies Only) NKA? (Severity: Unknown severity, Onset: Unknown) ? Past Medical History/Problem List Active Problems(19) Chronic ischemic left ICA stroke *Chronic pain Controlled substance agreement signed 10/16/22 Depression GERD (gastroesophageal reflux disease) *Hidradenitis suppurativa History of ischemic stroke Hypertension PATY (iron deficiency anemia) Insomnia Iron deficiency anemia Mural thrombus of cardiac apex Peripheral neuropathy Right spastic hemiparesis Spasticity Therapeutic drug monitoring Thrombocytosis Tobacco dependence Wound of buttock ? Past Surgical History Operative procedure on hip: 2000 L gluteal wound 02/02 R??gluteal wound drainage 09/03 ?? Social History Alcohol Details:??Use: Current. ??Other: 10 drinks per week. Substance Abuse Details:??Use: Current. ??Type: Marijuana. Tobacco Details:??Use: 5-9 cigarettes (between 1/4 to 1/2 pack)/day in last 30 days. Electronic Cigarette/Vaping Details:??Electronic Cigarette Use: Never. ? Family History Mother: Asthma Brother: Asthma ? Medications Home Medications Acetaminophen (acetaminophen 500 mg oral tablet)?2?tab(s)?1,000?Milligram?By Mouth?3 times a day?as needed?for pain Amlodipine (amLODIPine 5 mg oral tablet)?5?Milligram?1?tablet?By Mouth?Daily apixaban (Eliquis 5 mg oral tablet)?1?tab(s)?5?Milligram?By Mouth?2 times a day Ascorbic Acid (ascorbic acid 500 mg oral tablet)?1?tab(s)?500?Milligram?By Mouth?Daily Baclofen (baclofen 20 mg oral tablet)?20?Milligram?1?tablet?By Mouth?4 times a day *canakinumab (Ilaris 150 mg/mL subcutaneous solution)?150?Milligram?Subcutaneous Injection?Every 28 days Cholecalciferol (Vitamin D3 1000 intl units oral tablet)?1?tab(s)?25?Microgram?By Mouth?Daily *Clindamycin Topical (clindamycin 1% topical gel)?APPLY TO AFFECTED AREA TOPICALLY TWICE A DAY Docusate (docusate sodium 100 mg oral capsule)?1?capsule?By Mouth?2 times a day Duloxetine (duloxetine 30 mg oral enteric coated capsule)?1?capsule?30?Milligram?By Mouth?2 times a day?for 30?Days?TAKE 1 CAPSULE BY MOUTH EVERY DAY Durable Medical Equipment (Vashe wound solution)?See Instructions?Use 45mL daily Ferrous Sulfate (ferrous sulfate 325 mg oral tablet)?1?tab(s)?By Mouth?2 times a day Folic Acid (folic acid 1 mg oral tablet)?1?Milligram?1?tablet?By Mouth?Daily Gabapentin (gabapentin 600 mg oral tablet)?1?tab(s)?600?Milligram?By Mouth?3 times a day Hydroxyurea (hydroxyurea 500 mg oral capsule)?TAKE 1 CAPSULE BY MOUTH EVERY DAY nalOXONE (Narcan 4 mg/0.1 mL nasal spray)?1?spray(s)?4?Milligram?Nares, Both?Once?To be used use one spray in one nostril. if an additional dose is needed, alternate nostril. mayrepeat every 2 to 3 minutes until patient responds Oxycodone (OxyCONTIN 20 mg oral tablet, extended release)?20?Milligram?By Mouth?Every 8hours?for 7?Days Pantoprazole (pantoprazole 40 mg oral delayed release tablet)?1?tab(s)?By Mouth?Daily Tizanidine (tiZANidine 2 mg oral tablet)?4?Milligram?2?tablet?By Mouth?Every 8 hours?as needed?as needed for muscle spasm Triamcinolone Topical (triamcinolone 0.1% topical cream)?1?boyd?Topically?2 times a day?*DO NOT APPLY TO OPEN WOUND(S)* ? Results Recent Labs BLOOD COUNT & DIFF WBC 7.9 k/mm3 ()?? 11/16/2023 15:40 RBC 3.55 m/mm3 (Low)?? 11/16/2023 15:40 Hgb 8.8 Gm/dL (Low)?? 11/16/2023 15:40 Hct 30.4 % (Low)?? 11/16/2023 15:40 MCV 85.6 femtoliters ()?? 11/16/2023 15:40 MCH 24.8 pg (Low)?? 11/16/2023 15:40 MCHC 28.9 g/dL (Low)?? 11/16/2023 15:40 Platelet Count 698 k/mm3 (High)?? 11/16/2023 15:40 RDW-SD 63.0 femtoliters (High)?? 11/16/2023 15:40 MPV 8.7 femtoliters (Low)?? 11/16/2023 15:40 Nucleated RBC (Automated) 0.0 #/100 WBC'S ()?? 11/16/2023 15:40 Abs. NRBC 0.0 k/mm3 ()?? 11/16/2023 15:40 Abs. Neut 5.2 k/mm3 ()?? 11/16/2023 15:40 Abs. Lymph 1.8 k/mm3 ()?? 11/16/2023 15:40 Abs. Hall 0.7 k/mm3 ()?? 11/16/2023 15:40 Abs. Eo 0.1 k/mm3 ()?? 11/16/2023 15:40 Abs. Baso 0.0 k/mm3 ()?? 11/16/2023 15:40 Neut % 65.7 % ()?? 11/16/2023 15:40 Lymph % 22.7 % ()?? 11/16/2023 15:40 Hall % 9.3 % ()?? 11/16/2023 15:40 Eos % 1.6 % ()?? 11/16/2023 15:40 Baso % 0.4 % ()?? 11/16/2023 15:40 Imm Gran 0.3 % ()?? 11/16/2023 15:40 Abs. Imm Gran 0.0 k/mm3 ()?? 11/16/2023 15:40 ?? CHEM GENERAL Sodium 138 mmol/L ()?? 11/16/2023 15:40 Potassium 4.7 mmol/L ()?? 11/16/2023 20:02 Chloride 103 mmol/L ()?? 11/16/2023 15:40 Bicarbonate Level 22 mmol/L ()?? 11/16/2023 15:40 Anion Gap 13 ()?? 11/16/2023 15:40 Glucose Level 90 mg/dL ()?? 11/16/2023 15:40 BUN 18 mg/dL ()?? 11/16/2023 15:40 Creatinine-Blood 0.77 mg/dL ()?? 11/16/2023 15:40 Estimated GFR Creatinine 118 ML/MIN/1.73 M2 ()?? 11/16/2023 15:40 Calcium 8.8 mg/dL ()?? 11/16/2023 15:40 Protein, Total 7.6 Gm/dL ()?? 11/16/2023 15:40 Albumin 3.6 Gm/dL ()?? 11/16/2023 15:40 AG Ratio 0.9 ()?? 11/16/2023 15:40 Alkaline Phosphatase 143 units/L (High)?? 11/16/2023 15:40 AST (SGOT) 28 units/L ()?? 11/16/2023 15:40 ALT (SGPT) 9 units/L ()?? 11/16/2023 15:40 Bilirubin, Total <0.2 mg/dL ()?? 11/16/2023 15:40 Lactate 1.5 mmol/L ()?? 11/16/2023 15:40 C-Reactive Protein 3.5 mg/dL (High)?? 11/16/2023 15:40 ?? HEME OTHER Sed Rate >130 mm/hr (High)?? 11/16/2023 15:40 ?? URINE OTHER Est Creatinine Clearance 162.88 mL/min ()?? 11/16/2023 16:45 ? Hospital Progress note * Dirk Encinas MD: SIGN Dirk Encinas MD: SIGN, MODIFY Dirk Encinas MD: MODIFY, SIGN, VERIFY Event Display: Progress Note Hospital Authored Date: Patient: DAVID MCQUEEN Age: 38 years Sex: Male : 1985 Associated Diagnoses: None Author: Robert Butts MD Visit Information HPI: 38-year-old male with a pmhx of ischemic stroke with right-sided residual hemiparesis, expressive aphasia, intracardiac thrombus receiving anticoagulation with Eliquis, hypertension, hidradenitis suppurativa, chronic pain on opiates, and multiple admissions the past month for intractable gluteal pain. Upon admission, patient's pain attributed to hydradenitis suppuritiva. APS consulted for pain secondary to hidradenitis suppurativa on the right buttocks. Pain was rated as 10/10 in severity upon admission. Patient reports a baseline pain of 7/10 in daily activity, but indicates pain in hisright gluteal region elevates his discomfort to a 10/10. He inidicates that PO oxycodone 30 mg q4h returns him to his baseline pain level. Dr. Brand has been diligent in trying to workout a method to get Mr. Mcqueen to return home. Patient has been encouraged to only use PO medications for the last day in an attempt to obtain a preauthorization from insurance to get these medications at home. In speaking with the hospitalist team this morning, the patient was approved for 7 days of 30 mg [id number]. Current medications include acetaminophen 650 mg q6h, baclofen 20 mg qid, duloxetine 20 mg bid, gabapentin 600 mg tid, oxycodone 30 mg IR. Patient denies any nausea, vomiting, abdominal pain, orconstipation at this time. Physical Examination Allergies Allergic Reactions (All) NKA General Exam HEENT right sided facial droop noted secondary to prior stroke. Normocephalic, atraumatic . Respiratory Normal. Cardiovascular Normal. Abdominal Normal. Pain Assessment The location is right buttocks. The Quality is sharp and throbbing. The severity is severe. Time pattern: Acute on Chronic . Exacerbating factors: movement, palpation. Relieving factors: medication, drainage of lesions. Results Review Results Today's Results : ALL RESULT SECTIONS 11/20/2023 9:35 EDT Oxycodone 30 mg mg Respiratory Rate 20 br/min Pain Intensity 10 11/20/2023 9:29 EDT Duloxetine 30 mg mg Gabapentin 600 mg mg Respiratory Rate 20 br/min Respiratory Rate 20 br/min Systolic Blood Pressure 130 mm Hg Diastolic Blood Pressure 64 mm Hg Pain Intensity 10 Pain Intensity 10 11/20/2023 6:49 EDT Respiratory Rate 18 br/min Pain Intensity 7 11/20/2023 5:49 EDT Acetaminophen 650 mg mg Pain Intensity 7 11/20/2023 5:19 EDT Respiratory Rate 18 br/min Pain Intensity 7 11/20/2023 3:52 EDT Temperature 98.1 DegF Pulse Rate 69 bpm Respiratory Rate 18 br/min Systolic Blood Pressure 109 mm Hg Diastolic Blood Pressure 52 mm Hg L Oxygen Saturation 98 % 11/20/2023 3:33 EDT Oxycodone 30 mg mg Respiratory Rate 17 br/min Pain Intensity 10 Vital SignsTemperature : Temperature 11/20/2023 3:52 EDT Temperature 98.1 DegF 11/19/2023 22:10 EDT Temperature 97.9 DegF 11/19/2023 15:24 EDT Temperature 98.4 DegF 11/19/2023 11:05 EDT Temperature 98.7 DegF 11/19/2023 5:21 EDT Temperature 98.1 DegF Pulse Rate : Pulse Rate 11/20/2023 3:52 EDT Pulse Rate 69 bpm 11/19/2023 22:10 EDT Pulse Rate 70 bpm 11/19/2023 15:24 EDT Pulse Rate 61 bpm 11/19/2023 11:05 EDT Pulse Rate 65 bpm 11/19/2023 5:21 EDT Pulse Rate 72 bpm Respiratory Rate : Respiratory Rate 11/20/2023 9:35 EDT Respiratory Rate 20 br/min 11/20/2023 9:29 EDT Respiratory Rate 20 br/min Respiratory Rate 20 br/min 11/20/2023 6:49 EDT Respiratory Rate 18 br/min 11/20/2023 5:19 EDT Respiratory Rate 18 br/min 11/20/2023 3:52 EDT Respiratory Rate 18 br/min 11/20/2023 3:33 EDT Respiratory Rate 17 br/min 11/19/2023 23:40 EDT Respiratory Rate 17 br/min Respiratory Rate 17 br/min 11/19/2023 22:10 EDT Respiratory Rate 18 br/min 11/19/2023 22:09 EDT Respiratory Rate 17 br/min 11/19/2023 21:35 EDT Respiratory Rate 17 br/min 11/19/2023 20:09 EDT Respiratory Rate 17 br/min Respiratory Rate 17 br/min 11/19/2023 19:07 EDT Respiratory Rate Not Done: Previous shift documentation (Not Done) 11/19/2023 19:05 EDT Respiratory Rate Not Done: Previous shift documentation (Not Done) 11/19/2023 18:07 EDT Respiratory Rate 17 br/min 11/19/2023 17:05 EDT Respiratory Rate Not Done: Previous shift documentation (Not Done) 11/19/2023 16:05 EDT Respiratory Rate 16 br/min Respiratory Rate 16 br/min 11/19/2023 15:24 EDT Respiratory Rate 16 br/min 11/19/2023 14:12 EDT Respiratory Rate 18 br/min Respiratory Rate 18 br/min 11/19/2023 12:49 EDT Respiratory Rate Not Done: Previous shift documentation (Not Done) 11/19/2023 12:28 EDT Respiratory Rate 16 br/min 11/19/2023 11:49 EDT Respiratory Rate 18 br/min 11/19/2023 11:05 EDT Respiratory Rate 16 br/min 11/19/2023 10:42 EDT Respiratory Rate Not Done: Previous shift documentation (Not Done) 11/19/2023 9:42 EDT Respiratory Rate 18 br/min Respiratory Rate 18 br/min Respiratory Rate 18 br/min 11/19/2023 6:11 EDT Respiratory Rate 18 br/min Respiratory Rate 18 br/min 11/19/2023 5:41 EDT Respiratory Rate 18 br/min 11/19/2023 5:21 EDT Respiratory Rate 17 br/min 11/19/2023 5:11 EDT Respiratory Rate 18 br/min Respiratory Rate 18 br/min 11/19/2023 1:42 EDT Respiratory Rate 18 br/min 11/19/2023 1:12 EDT Respiratory Rate 18 br/min 11/19/2023 0:42 EDT Respiratory Rate 18 br/min Respiratory Rate 18 br/min 11/19/2023 0:19 EDT Respiratory Rate 18 br/min SBP/DBP Cuff : SBP/DBP Cuff 11/20/2023 9:29 EDT Systolic Blood Pressure 130 mm Hg Diastolic Blood Pressure 64 mm Hg 11/20/2023 3:52 EDT Systolic Blood Pressure 109 mm Hg Diastolic Blood Pressure 52 mm Hg L 11/19/2023 22:10 EDT Systolic Blood Pressure 122 mm Hg Diastolic Blood Pressure 64 mm Hg 11/19/2023 15:24 EDT Systolic Blood Pressure 116 mm Hg Diastolic Blood Pressure 55 mm Hg 11/19/2023 11:05 EDT Systolic Blood Pressure 128 mm Hg Diastolic Blood Pressure 79 mm Hg 11/19/2023 9:42 EDT Systolic Blood Pressure 125 mm Hg Diastolic Blood Pressure 58 mm Hg 11/19/2023 5:21 EDT Systolic Blood Pressure 136 mm Hg Diastolic Blood Pressure 57 mm Hg Impression and Plan 38-year-old male with a pmhx of ischemic stroke with right-sided residual hemiparesis, expressive aphasia, intracardiac thrombus receiving anticoagulation with Eliquis, hypertension, hidradenitis suppurativa, chronic pain on opiates, and multiple admissions over the past month for intractable gluteal pain secondary to hidradenitis suppurativa on the right buttocks. APS consulted for pain secondary to hidradenitis suppuritiva on the right buttocks. Pain was rated as 10/10 in severity upon admission. Patient reports a baseline pain of 7/10 in daily activity, but indicates pain in his right gluteal region elevates his discomfort to a 10/10. He indicates that PO oxycodone 30 mg q4h returns him to his baseline pain level. Dr. Brand has been diligent in trying to workout an arrangement with insurance get Mr. Mcqueen to return home. Patient has been encouraged to only use PO medications for the last day in an attempt to obtain a preauthorization from insurance to get these medications at home. In speaking with the hospitalist team this morning, the patient was approved for 7 days of 30 mg oxycodone q4h. It is likely patient will be discharged home shortly. Acute Pain Service recommends the following: - Continue oxycodone 30 mg PO q4h. Patient indicates this is a dose that returns him to his baseline function. He will need to follow up with his primary care provider once discharged to ensure he can keep receiving a therapeutic medication dose. - duloxetine 30 mg bid - acetaminophen 650 mg q6h - baclofen 20 mg qd - gabapentin 600 mg TID - tizanidine 4 mg q8h - Patient indicates that his baseline pain levels are between 7-8/10. He has achieved baseline comfort via the current PO pain regimen. Given patient's current pain management being given via PO, pain management will sign off at this time. Please consult APS with any further questions or concerns regarding patient's acute pain. Discussed with attending professional soccer player. Thank you allowing Acute Pain Services to participate in the care of this patient. Please page [phone] with any questions. * Dirk Encinas MD: PERFORM Event Display: Progress Note Hospital Authored Date: Patient seen and examined with resident physician. Agree with plan as documented herein. I do have some concern about patient being a consistent dose of baclofen as muscle relaxant in addition with tizanidine 4 mg every 8 hours. Recommend to try and decrease baclofen dose for possible. Recommended that this is a high MME regimen for this patient. I did discuss with him potential rotation to methadone or buprenorphine product which he was very against during this hospitalization. As outpatient, be willing to make recommendations regarding buprenorphine to primary care physician for rotation asdesired. All questions answered. It was a pleasure to see this patient in follow-up. APS signing off. * Robert Butts MD: SIGN, MODIFY, PERFORM, SIGN, VERIFY Event Display: Progress Note Hospital Authored Date: Patient: DAVID MCQUEEN Age: 38 years Sex: Male : 1985 Associated Diagnoses: None Author: Robert Butts MD Visit Information Chief Complaint:: 38-year-old male with a pmhx of ischemic stroke with right- sided residual hemiparesis, expressive aphasia, intracardiac thrombus receiving anticoagulation with Eliquis, hypertension, hidradenitis suppurativa, chronic pain on opiates, and multiple admissions the past month for intractable gluteal pain. APS consulted for pain in right gluteal region. Pain was rated as 10/10 in severity upon admission. Pt states pain is poorly controlled, but indicates he is usually at a 7/10 at baseline. He states pain is a 6/10 shortly after PO medication is administered. He says he cannot gohome without more medications, but is agreeable that if we can coordinate with insurance to cover medications, he would be willing to go home at baseline. Current medications include acetaminophen 650 mg q6h, baclofen 20 mg qid, duloxetine 20 mg bid, gabapentin 600 mg tid, oxycodone 30 mg IR. We discussed to possibility of transitioning the patient to suboxone or morphine, but patient became annoyed and indicated he was not willing to discuss it at this time. Discussed with Dr. Moise the limitatio ns with patient's insurance covering outpatient pain control. Dr. Moise indicated that once a PO painmanagement routine can be finalized we can coordinate to potentially get the patient home. Patient denies any nausea, vomiting, abdominal pain, or constipation at this time. . Physical Examination Allergies Allergic Reactions (All) NKA Results Review Results Today's Results : ALL RESULT SECTIONS 11/19/2023 12:28 EDT Hydromorphone 1 mg mg Respiratory Rate 16 br/min 11/19/2023 11:49 EDT Acetaminophen 650 mg mg Hydromorphone 1 mg mg Respiratory Rate 18 br/min 11/19/2023 11:05 EDT Temperature 98.7 DegF Pulse Rate 65 bpm Respiratory Rate 16 br/min Systolic Blood Pressure 128 mm Hg Diastolic Blood Pressure 79 mm Hg 11/19/2023 9:44 EDT Hydroxyurea 500 mg mg 11/19/2023 9:42 EDT Gabapentin 600 mg mg Oxycodone 30 mg mg Respiratory Rate 18 br/min Respiratory Rate 18 br/min Respiratory Rate 18 br/min Systolic Blood Pressure 125 mm Hg Diastolic Blood Pressure 58 mm Hg 11/19/2023 6:11 EDT Respiratory Rate 18 br/min Respiratory Rate 18 br/min 11/19/2023 5:41 EDT Respiratory Rate 18 br/min 11/19/2023 5:21 EDT Temperature 98.1 DegF Pulse Rate 72 bpm Respiratory Rate 17 br/min Systolic Blood Pressure 136 mm Hg Diastolic Blood Pressure 57 mm Hg 11/19/2023 5:11 EDT Acetaminophen 650 mg mg Hydromorphone 1 mg mg Oxycodone 30 mg mg Respiratory Rate 18 br/min Respiratory Rate 18 br/min 11/19/2023 1:42 EDT Respiratory Rate 18 br/min 11/19/2023 1:12 EDT Respiratory Rate 18 br/min 11/19/2023 0:42 EDT Hydromorphone 1 mg mg Oxycodone 30 mg mg Respiratory Rate 18 br/min Respiratory Rate 18 br/min 11/19/2023 0:19 EDT Respiratory Rate 18 br/min Vital SignsTemperature : Temperature 11/19/2023 11:05 EDT Temperature 98.7 DegF Pulse Rate : Pulse Rate 11/19/2023 11:05 EDT Pulse Rate 65 bpm Respiratory Rate : Respiratory Rate 11/19/2023 12:28 EDT Respiratory Rate 16 br/min SBP/DBP Cuff : SBP/DBP Cuff 11/19/2023 11:05 EDT Systolic Blood Pressure 128 mm Hg Diastolic Blood Pressure 79 mm Hg Impression and Plan Impression and Plan Plan to: modify current regimen. APS recommends the following: - discontinue IV dilaudid 1 mg q4h. Patient cannot be discharged home with IV pain regimen. In attempts to get a PO pain routine finalized, we recommend stopping IV pain medications. - continue oxycodone IR 30 mg q4h for pain management. Patient is confident he return home on oxycodone 30 mg QID. In order to obtain a PO pain medication pain regimen, oral medications should be utilized to simulate home care as much as possible. - If insurance will not allow patient to receive adequate medication doses/supply at home, we may consider FUNERAL PLANNING COUNSELOR with IV dilaudid while we transition to morphine. This will have to be a discussion if we cannot get patient home with needed medications. - duloxetine 30 mg bid - acetaminophen 650 mg q6h - baclofen 20 mg qd - gabapentin 600 mg TID - tizanidine 4 mg q8h * Robert Butts MD: PERFORM Event Display: Progress Note Hospital Authored Date: MME @ time of oral regimen: 270 MME * Suma Brand MD: PERFORM Event Display: Progress Note Hospital Authored Date: Patient: ??DAVID MCQUEEN ? Age:??38 Years?Sex:??Male?:??1985?? Subjective No major overnight events pain look better ; APS f/w will f/u recs from today Review of Systems Negative??except as above Past Medical History Active Problems(19) Chronic ischemic left ICA stroke Chronic pain Controlled substance agreement signed 10/16/22 Depression GERD (gastroesophageal reflux disease) Hidradenitis suppurativa History of ischemic stroke Hypertension PATY (iron deficiency anemia) Insomnia Iron deficiency anemia Mural thrombus of cardiac apex Peripheral neuropathy Right spastic hemiparesis Spasticity Therapeutic drug monitoring Thrombocytosis Tobacco dependence Wound of buttock ? Past Surgical History Operative procedure on hip: 2000 ? Objective Vital Signs?? Temperature: 98.7 DegF (11/19/23 11:05:00) Temperature Route: Oral (11/19/23 11:05:00) Pulse Rate: 65 bpm (11/19/23 11:05:00) Respiratory Rate: 16 br/min (11/19/23 12:28:00) Systolic Blood Pressure: 128 mm Hg (11/19/23 11:05:00) Diastolic Blood Pressure: 79 mm Hg (11/19/23 11:05:00) Blood pressure sites: Arm, left (11/19/23 11:05:00) Mean Arterial Pressure: 95 mm Hg (11/19/23 11:05:00) Pulse Pressure: 49 mm Hg (11/19/23 11:05:00) Oxygen Saturation: 100 % (11/19/23 11:05:00) Mode of Delivery (Oxygen): Room air (11/19/23 11:05:00) Early Warning Score: 0 (11/19/23 12:33:24) ? Physical Exam Awake alert, no acute distress, in room air Bilateral??entry, no added sound S1-S2, no MRG abdomen soft,??NTND, bowel sound present Extremities: No edema, warm peripheries Right buttock wound: See clinical media pictures for??details??description AOx3, expressive aphasia from previous stroke, chronic right-sided weakness, no gross facial asymmetry, left upper and lower extremity 5/5, patient is??baseline??bedbound mostly _ Inpatient Medications Medications (15) Active SCHEDULED: (11) Acetaminophen 325 mg Tablet (acetaminophen 325 mg oral tablet) ??650 mg, By Mouth, Every 6 hours Amlodipine 5 mg Tablet (amLODIPine 5 mg oral tablet) ??5 mg, By Mouth, Daily Apixaban 5 mg Tablet (Eliquis) ??5 mg, By Mouth, 2 times a day Baclofen 10 mg Tablet (baclofen 10 mg oral tablet) ??20 mg, By Mouth, 4 times a day Duloxetine 30 mg Capsule (Duloxetine) ??30 mg, By Mouth, 2 times a day Ferrous Sulfate 325 mg EC Tablet (ferrous [...] mg, By Mouth, Daily CONTINUOUS: (0) PRN: (4) HYDROmorphone 1 mg/mL Inj Syringe (Dilaudid Inj) ??1 mg 1 mL, IV Push Slowly, Every 4 hours NaCl 0.9% Flush 3ml (NaCL 0.9% Flush) ??3 mL, IV Push, Every 8 hours OxyCODONE 5 mg IR Tablet (oxyCODONE 5 mg oral tablet) ??30 mg, By Mouth, Every 4 hours Tizanidine 4 mg Tablet (tiZANidine 4 mg oral tablet) ??4 mg, By Mouth, Every 8 hours ? Results Microbiology ?? Blood Culture Result?? Completed?? Source: Blood Body Site: ?? Collected Dt/Tm: 11/16/2023 15:40 Last Updated Dt/Tm: 11/17/2023 14:20 ?? Blood Culture 2 Results?? Completed?? Source: Blood Body Site: ?? Collected Dt/Tm: 11/16/2023 15:31 Last Updated Dt/Tm: 11/17/2023 14:20 ?? Blood Culture?? Completed?? Source: Blood Body Site: ?? Collected Dt/Tm: 11/16/2023 15:12 Last Updated Dt/Tm: 11/17/2023 14:20 ?? Blood Culture #2?? Completed?? Source: Blood Body Site: ?? Collected Dt/Tm: 11/16/2023 15:12 Last Updated Dt/Tm: 11/17/2023 14:20 ? Assessment/Plan Chief Complaint: BIBA from home for r buttock pressure ulcer. Stage 1 per EMS. Hx CVA r sided deficits- no change in deficits according to pt. ?? Diagnoses Chronic GERD ??(K21.9) Chronic pain syndrome ??(G89.4) Chronic, continuous use of opioids ??(F11.90) Depression ??(F32.A) Hidradenitis suppurativa ??(L73.2) Hypertension ??(I10) Intracardiac thrombosis ??(I51.3) Intractable pain ??(R52) Iron deficiency anemia ??(D50.9) Right spastic hemiparesis ??(G81.11) Thrombocytosis ??(D75.839) ?? David is a 38-year-old male with a past medical history of ischemic stroke with right-sided residual hemiparesis, expressive aphasia, intracardiac thrombus anticoagulated on Eliquis, hypertension, severe hidradenitis suppurativa with multiple I&D's s/p excision of left buttock in 2022 with associated chronic pain on opiates, and multiple admissions the past month for intractable gluteal pain who is??admitted for IV pain management??in setting of??intractable pain of his right??gluteal region. ?? Intractable pain (R52):?? Hidradenitis suppurativa (L73.2):?? Chronic, continuous use of opioids (F11.90):?? Chronic pain syndrome (G89.4):?? Patient presenting with intractable pain of his right gluteal region with prior multiple admissionsfor poor pain control. Last CT pelvis with contrast on 10/20/2023 with findings significant for extensive hidradenitis suppurativa with superficial skin ulceration of the right gluteal region measuring up to 1.2 cm with no mention of fistula or abscess. Has been taking OxyContin 20 mg every 8 hours which inadequately controls his pain but unable to beprescribed higher doses due to insurance. [facility], last visit on 09/18/2023.??Per note was on canakinumab injections and recalcitrant to multiple therapies with palliative care involvement. ?? Plan: appreciate acute pain service f/w the pt regarding his insurance limitation for pain med, requested SW consult, 11/17 I d/w pharmacist regarding pain med limitation : Pt has [place] [employer] and would have to call [phone] for prior auth. Pt id #[id number]??; can do it if needed once we have a finalized regimen. cont PRN oxycodone 30mg q4 hr prn as this has worked for him in the past Continue scheduled Tylenol??650 mg??every 6 hour,Baclofen 20 mg 4 times daily, duloxetine 30 mg twice daily, gabapentin 600 mg 3 times daily IV Dilaudid??reduced to 1??mg every 4 hours as needed for severe breakthrough pain Patient has [facility] cutter Wound care consult No indication for antibiotic as of right now f/u Blood cultures NGTD 48hrs Low threshold to start antibiotic if hemodynamic stability, fever??or concern for sepsis ?? Chronic GERD (K21.9):??Continue home pantoprazole 40 mg daily ?? Hypertension (I10):??Continue home amlodipine 5 mg ?? Depression (F32.A):??Continue duloxetine 30 mg p.o. twice a day ?? Thrombocytosis (D75.839):??Continue home hydroxyurea ?? Iron deficiency anemia (D50.9):??Continue home iron ?? Intracardiac thrombosis (I51.3):??Patient anticoagulated on Eliquis ?? Right spastic hemiparesis (G81.11):??Continue home tizanidine as needed, and scheduled baclofen ?? VTE Prophylaxis:??home apixaban ? Code Status:??Full, confirmed with patient? OMN: Pain control ?? updated Cynthia on the phone 11/16 ?? Disclaimer: ??This note ??was accomplished with use of [employer] voice recognition software, which is prone to medical and other word misidentifications and grammatical errors. ??The physician does strive to identify and correct these, but some could still be present. ??Please do not hesitate to contact the physician for clarifications. ? 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 dressing changed prior to dc Ashlie Major RN - 11/20/2023 16:10 EDT Discharge Level of Care at Discharge : Homehealth/VNA Discharge VNA/Hospice/Home Care(v001) : [facility] [phone] Patient Left Unit Via : Ambulance Patient Accompanied Off Unit with : Ambulance/Chair Van Personnel Handover Given to Transport Personnel : Yes DC Instructions Provided & Signed by Pt : Yes Patient Understands D/C Instructions : Yes Verbalized Understanding of D/C Plan By : Patient Patient Instructions Discharge Signed : Yes Did Pt have Specialty Bed or Wound Vac : No Ashlie Major RN - 11/20/2023 14:58 EDT * Sandra PAGAN, Timmy Ward: PERFORM Event Display: Discharge/Transfer Note Hospital Authored Date: [id number] Patient: ??DAVID MCQUEEN ? Age:??38 Years?Sex:??Male?:??1985?? Patient Information Discharge Location: Primary Care Physician: Derek Tomas MD Admit Date/Time: 11/18/23 09:49 Discharge Disposition Discharge Disposition: Home with Home Health Discharge Diagnosis Intractable pain (R52) Hidradenitis suppurativa (L73.2) Chronic pain syndrome (G89.4) Chronic, continuous use of opioids (F11.90) Right spastic hemiparesis (G81.11) Intracardiac thrombosis (I51.3) Iron deficiency anemia (D50.9) Thrombocytosis (D75.839) Depression (F32.A) Hypertension (I10) Chronic GERD (K21.9) Uncontrolled pain (R52) _ Discharge Medications Acetaminophen (acetaminophen 500 mg oral tablet)?2?tab(s)?1,000?Milligram?By Mouth?3 times a day?as needed?for pain Amlodipine (amLODIPine 5 mg oral tablet)?5?Milligram?1?tablet?By Mouth?Daily apixaban (Eliquis 5 mg oral tablet)?1?tab(s)?5?Milligram?By Mouth?2 times a day Ascorbic Acid (ascorbic acid 500 mg oral tablet)?1?tab(s)?500?Milligram?By Mouth?Daily Baclofen (baclofen 20 mg oral tablet)?20?Milligram?1?tablet?By Mouth?4 times a day canakinumab (Ilaris 150 mg/mL subcutaneous solution)?150?Milligram?Subcutaneous Injection?Every 28 days Cholecalciferol (Vitamin D3 1000 intl units oral tablet)?1?tab(s)?25?Microgram?By Mouth?Daily Clindamycin Topical (clindamycin 1% topical gel)?APPLY TO AFFECTED AREA TOPICALLY TWICE A DAY Docusate (docusate sodium 100 mg oral capsule)?1?capsule?By Mouth?2 times a day Duloxetine (duloxetine 30 mg oral enteric coated capsule)?1?capsule?30?Milligram?By Mouth?2 times a day?for 30?Days?TAKE 1 CAPSULE BY MOUTH EVERY DAY Durable Medical Equipment (Vashe wound solution)?See Instructions?Use 45mL daily Ferrous Sulfate (ferrous sulfate 325 mg oral tablet)?1?tab(s)?By Mouth?2 times a day Folic Acid (folic acid 1 mg oral tablet)?1?Milligram?1?tablet?By Mouth?Daily Gabapentin (gabapentin 600 mg oral tablet)?1?tab(s)?600?Milligram?By Mouth?3 times a day Hydroxyurea (hydroxyurea 500 mg oral capsule)?TAKE 1 CAPSULE BY MOUTH EVERY DAY nalOXONE (Narcan 4 mg/0.1 mL nasal spray)?1?spray(s)?4?Milligram?Nares, Both?Once?To be used use one spray in one nostril. if an additional dose is needed, alternate nostril. mayrepeat every 2 to 3 minutes until patient responds Oxycodone (oxyCODONE 30 mg IR tablet)?1?tab(s)?30?Milligram?By Mouth?Every 4 hours?as needed?Pain , Moderate?for 7?Days?for moderate to severe pain Pantoprazole (pantoprazole 40 mg oral delayed release tablet)?1?tab(s)?By Mouth?Daily Tizanidine (tiZANidine 2 mg oral tablet)?4?Milligram?2?tablet?By Mouth?Every 8 hours?as needed?as needed for muscle spasm Triamcinolone Topical (triamcinolone 0.1% topical cream)?1?boyd?Topically?2 times a day?*DO NOT APPLY TO OPEN WOUND(S)* ?? Medications Started Oxycodone IR 30 mg q4 hrs prn Doses Changed - Allergies Allergies ?(Active and Proposed Allergies Only) NKA? (Severity: Unknown severity, Onset: Unknown) ? PCP Follow-Up/Heads-Up Patient will need close follow up and refills of narcotics. Insurance auth was done for 7 days while inpatient Objective ?? David is a 38-year-old male with a past medical history of ischemic stroke with right-sided residual hemiparesis, expressive aphasia, intracardiac thrombus anticoagulated on Eliquis, hypertension, severe hidradenitis suppurativa with multiple I&D's s/p excision of left buttock in 2022 with associated chronic pain on opiates, and multiple admissions the past month for intractable gluteal pain who is??admitted for IV pain management??in setting of??intractable pain of his right??gluteal region. ?? Intractable pain (R52):?? Hidradenitis suppurativa (L73.2):?? Chronic, continuous use of opioids (F11.90):?? Chronic pain syndrome (G89.4):?? Patient presenting with intractable pain of his right gluteal region with prior multiple admissionsfor poor pain control. Last CT pelvis with contrast on 10/20/2023 with findings significant for extensive hidradenitis suppurativa with superficial skin ulceration of the right gluteal region measuring up to 1.2 cm with no mention of fistula or abscess. Has been taking OxyContin 20 mg every 8 hours which inadequately controls his pain but unable to beprescribed higher doses due to insurance. Follows with pattern cutter at [facility], last visit on 09/18/2023.??Per note was on canakinumab injections and recalcitrant to multiple therapies with palliative care involvement. Evaluated by acute pain service while in the hospital. Blood cultures NGTD 48hrs Plan: cont PRN oxycodone 30mg q4 hr prn as this has worked for him in the past Continue scheduled Tylenol??650 mg??every 6 hour,Baclofen 20 mg 4 times daily, duloxetine 30 mg twice daily, gabapentin 600 mg 3 times daily Patient has follow-up with[facility] pattern cutter No indication for antibiotic as of right now Follow up with PCP in 1-2 weeks, he will need refills of narcotics. ?? Chronic GERD (K21.9):??Continue home pantoprazole 40 mg daily ?? Hypertension (I10):??Continue home amlodipine 5 mg ?? Depression (F32.A):??Continue duloxetine 30 mg p.o. twice a day ?? Thrombocytosis (D75.839):??Continue home hydroxyurea ?? Iron deficiency anemia (D50.9):??Continue home iron ?? Intracardiac thrombosis (I51.3):??Patient anticoagulated on Eliquis ?? Right spastic hemiparesis (G81.11):??Continue home tizanidine as needed, and scheduled baclofen ? Vital Signs?? Temperature: 99.1 DegF (11/20/23 13:14:00) Temperature Route: Oral (11/20/23 13:14:00) Pulse Rate: 87 bpm (11/20/23 13:14:00) Respiratory Rate: 18 br/min (11/20/23 13:14:00) Systolic Blood Pressure: 126 mm Hg (11/20/23 13:14:00) Diastolic Blood Pressure: 68 mm Hg (11/20/23 13:14:00) Blood pressure sites: Arm, left (11/20/23 13:14:00) Mean Arterial Pressure: 87 mm Hg (11/20/23 13:14:00) Pulse Pressure: 58 mm Hg (11/20/23 13:14:00) Oxygen Saturation: 96 % (11/20/23 13:14:00) Mode of Delivery (Oxygen): Room air (11/20/23 13:14:00) Early Warning Score: 0 (11/20/23 13:19:28) ? Intake/Output? 11/17 09:49 11/19 07:00 11/18 07:00 11/17 07:00 11/16 07:00 ?? 11/19 13:39 11/19 13:39 11/19 06:59 11/18 06:59 11/17 06:59 Intake ? 2741 ?237 ?710 ?966 ?828 Output ? 3655 ?0 ? 1080 ? 1350 ? 1225 Net Total ? -914 ?237 ? -370 ? -384 ? -397 ? . Physical Exam Constitutional: Alert, in no acute distress. Respiratory: Clear to auscultation. No wheezing or crackles. Cardiovascular: S1S2 regular. No murmurs, rubs or gallops. Gastrointestinal: Abdomen soft, non-tender, non-distended. Normal bowel sounds. Extremities: No lower extremity pitting??edema. Neurologic: AAOx3, expressive aphasia from prior stroke Consultants Acute pain service Pending Results No Pending Results Follow-Up Appointments Added Follow Up ?Time Frame ?Comments Jacobo-Derek Webb MD?1 week Patient Instructions Upon discharge we recommend the following: ?? >??We have provided you with 7-day prescription of oxycodone short acting 30 mg every 4 hours asneeded for??Severe pain,??for further refills you will need to contact your primary care provider. ??We have already notified them of your discharge. ??Please??call your PCP office to schedule an appointment with them within 1-2 weeks??and for further refills. ?? >??In addition please take duloxetine 30 mg 2 times daily >??Tylenol 650 mg??every 6 hours??do not exceed 4 g a day >??Baclofen 20 mg daily >??Gabapentin 600 mg 3 times a day >??Tizanidine??4 mg every 8 hours ?? > Please follow up with your Psychiatric Arnp for continued management?? Post Discharge Care Discharge ?11/20/23 13:54:00 EDT Discharge Prescriptions ?ePrescribed, 11/20/23 13:54:00 EDT Home Health Face to Face *Denotes mandatory burton ?? *I certify that this patient is under my care and that I or an allowed non- physician working with me had a face to face encounter with the patient on this date:??11/20/2023 13:51 ?? *The encounter with the patient was in whole, or in part, for the following medical condition, which is the primary diagnosis(es) for home health care:??Intractable pain (R52) Hidradenitis suppurativa (L73.2) Chronic pain syndrome (G89.4) Chronic, continuous use of opioids (F11.90) Right spastic hemiparesis (G81.11) Intracardiac thrombosis (I51.3) Iron deficiency anemia (D50.9) Thrombocytosis (D75.839) Depression (F32.A) Hypertension (I10) Chronic GERD (K21.9) Uncontrolled pain (R52) ?? *Select the indications for the discipline/s that are being arranged for this patient. Nursing (select all that apply): [_] None [x_] Medication management (reconciliation, teaching)?? [x_] Chronic disease management?? [x_] Wound care and treatment?? [_] Home safety [...] Inability to ambulate without assistance [_] Pain [x_] Decreased strength and endurance [_] Unsteady gait [_] Severe SOB and fatigue [_] Impaired transfers [_] Inability to negotiate stairs [_] Limited weight bearing [_] Mental status change? *Physician Signature: _Timmy Flores ?? *By signing this, I certify that I have personally evaluated the patient and agree with the findings and recommendations as documented above. ? F Results Discharge Labs BACTERIOLOGY Blood Culture Results Preliminary report ()?? 11/16/2023 15:40 Blood Culture Specimen Source BLOOD ()?? 11/16/2023 15:40 Blood Culture Isolate 1 Comment ()?? 11/16/2023 15:40 Blood Cult 2 Results Preliminary report ()?? 11/16/2023 15:31 Blood Culture 2 Specimen Source BLOOD ()?? 11/16/2023 15:31 Blood Culture 2 Isolate 1 Comment ()?? 11/16/2023 15:31 ?? BLOOD COUNT & DIFF WBC 5.4 k/mm3 ()?? 11/20/2023 01:11 RBC 3.30 m/mm3 (Low)?? 11/20/2023 01:11 Hgb 8.3 Gm/dL (Low)?? 11/20/2023 01:11 Hct 27.9 % (Low)?? 11/20/2023 01:11 MCV 84.5 femtoliters ()?? 11/20/2023 01:11 MCH 25.2 pg (Low)?? 11/20/2023 01:11 MCHC 29.7 g/dL (Low)?? 11/20/2023 01:11 Platelet Count 612 k/mm3 (High)?? 11/20/2023 01:11 RDW-SD 60.2 femtoliters (High)?? 11/20/2023 01:11 MPV 8.3 femtoliters (Low)?? 11/20/2023 01:11 Nucleated RBC (Automated) 0.0 #/100 WBC'S ()?? 11/20/2023 01:11 Abs. NRBC 0.0 k/mm3 ()?? 11/20/2023 01:11 Abs. Neut 4.7 k/mm3 ()?? 11/17/2023 00:46 Abs. Lymph 2.0 k/mm3 ()?? 11/17/2023 00:46 Abs. Hall 0.8 k/mm3 ()?? 11/17/2023 00:46 Abs. Eo 0.2 k/mm3 ()?? 11/17/2023 00:46 Abs. Baso 0.0 k/mm3 ()?? 11/17/2023 00:46 Neut % 60.9 % ()?? 11/17/2023 00:46 Lymph % 26.3 % ()?? 11/17/2023 00:46 Hall % 9.9 % ()?? 11/17/2023 00:46 Eos % 2.0 % ()?? 11/17/2023 00:46 Baso % 0.5 % ()?? 11/17/2023 00:46 Imm Gran 0.4 % ()?? 11/17/2023 00:46 Abs. Imm Gran 0.0 k/mm3 ()?? 11/17/2023 00:46 ?? CHEM GENERAL Sodium 137 mmol/L ()?? 11/20/2023 01:11 Potassium 4.6 mmol/L ()?? 11/20/2023 01:11 Chloride 101 mmol/L ()?? 11/20/2023 01:11 Bicarbonate Level 25 mmol/L ()?? 11/20/2023 01:11 Anion Gap 11 ()?? 11/20/2023 01:11 Glucose Level 90 mg/dL ()?? 11/17/2023 00:46 Glucose, POC 88 mg/dL ()?? 11/19/2023 08:11 BUN 15 mg/dL ()?? 11/20/2023 01:11 Creatinine-Blood 0.87 mg/dL ()?? 11/20/2023 01:11 Estimated GFR Creatinine 114 ML/MIN/1.73 M2 ()?? 11/20/2023 01:11 Calcium 8.7 mg/dL ()?? 11/17/2023 00:46 Protein, Total 7.4 Gm/dL ()?? 11/17/2023 00:46 Albumin 3.5 Gm/dL ()?? 11/17/2023 00:46 AG Ratio 0.9 ()?? 11/17/2023 00:46 Alkaline Phosphatase 133 units/L (High)?? 11/17/2023 00:46 AST (SGOT) 11 units/L ()?? 11/17/2023 00:46 ALT (SGPT) 6 units/L ()?? 11/17/2023 00:46 Bilirubin, Total 0.2 mg/dL ()?? 11/17/2023 00:46 Lactate 1.5 mmol/L ()?? 11/16/2023 15:40 C-Reactive Protein 3.5 mg/dL (High)?? 11/16/2023 15:40 ?? HEME OTHER Sed Rate >130 mm/hr (High)?? 11/16/2023 15:40 ? URINE OTHER Est Creatinine Clearance 144.16 mL/min ()?? 11/20/2023 02:49 ? Microbiology ?? Blood Culture Result?? Completed?? Source: Blood Body Site: ?? Collected Dt/Tm: 11/16/2023 15:40 Last Updated Dt/Tm: 11/17/2023 14:20 ?? Blood Culture 2 Results?? Completed?? Source: Blood Body Site: ?? Collected Dt/Tm: 11/16/2023 15:31 Last Updated Dt/Tm: 11/17/2023 14:20 ?? Blood Culture?? Completed?? Source: Blood Body Site: ?? Collected Dt/Tm: 11/16/2023 15:12 Last Updated Dt/Tm: 11/17/2023 14:20 ?? Blood Culture #2?? Completed?? Source: Blood Body Site: ?? Collected Dt/Tm: 11/16/2023 15:12 Last Updated Dt/Tm: 11/17/2023 14:20 ? 45??minutes spent on discharge * Brenda Jackson RN: PERFORM, SIGN, VERIFY Event Display: Case Management Discharge Plan Authored Date: Patient: DAVID MCQUEEN Age: 38 years Sex: Male : 1985 Associated Diagnoses: None Author: Brenda Jackson RN Discharge Plan Case Management Discharge Plan : Case Management Discharge Plan Data 11/20/2023 12:22 EDT Discharge Level of Care at Discharge Homehealth/VNA Discharge VNA/Hospice/Home Care [facility] [phone] Discharge Transportation Arranged [facility] [address] [facility] [phone] Discharge Arranged Transport Date/Time 11/20/2023 15:00 Mode of Transportation Arranged Ambulance Agency [facility] #1 admissions Service Categories #1 Physical Therapy, Longterm 11/18/2023 13:18 EDT Service Comments #1 the [facility] Visiting Nurse will call to set up atime to seeyou 1-2 days after discharge * Pedrito BUSTAMANTE, Ashlie Stover: PERFORM Event Display: Patient Education/Instruction Authored Date: [id number] Inpatient Adult Discharge Instructions. [address] [address] Name: DAVID MCQUEEN : 1985?? Visit: 11/18/2023 09:49?? Current Date: 11/20/2023 14:59 ?? Account: [id number]?? Inpatient Adult Discharge Instructions We would like [...] and their families. Surveys are administered by [employer] ?? If further treatment with your primary care physician or another doctor is recommended, it is important for you to keep the appointment. Call your primary care physician or return to the Emergency Department immediately if your condition worsens, fails to improve, or new symptoms develop. If you need to find a doctor, you can call [facility] Link for a referral at [phone] or toll free at [phone]) or log in to [email or web address].. ?? [facility], in keeping with [facility] guidance, no longer requires face masks [...] a health care boyd of your choosing. [employer] is a website that allows you to [...] discharged from [facility], Patient Care Unit: S3??. If you have any questions regarding these instructions, including results of studies pending, afteryou leave, please call us and we will be happy to assist you 03/12. [facility] Your Care Team Attending Physician Timmy Flores MD?? Consulting Providers Timmy Flores MD?? Discharging Providers Timmy Flores MD Reason for Your Visit DARYL from home for r buttock pressure ulcer. Stage 1 per EMS. Hx CVA r sided deficits- no change indeficits according to pt.?? Your Diagnosis Chronic GERD Chronic pain syndrome Chronic, continuous use of opioids Depression General medical Hidradenitis suppurativa Hypertension Intracardiac thrombosis Intractable pain Iron deficiency anemia Right spastic hemiparesis Thrombocytosis Tests Performed Below is a partial list of the tests performed during your hospitalization. You may have had other tests and procedures not included in this list. Please discuss all test results with your provider. Blood Culture Blood Culture #2 Blood Culture 2 Results Blood Culture Result BUN CBC CBC w/ Differential Comprehensive Metabolic Panel Creatinine CRP Electrolytes ESR GLUCOSE POC Lactate Level Potassium Level No tests performed during this visit.?? Primary Care Provider Derek Tomas MD? Advance Directive Health Care Proxy on File Yes - Health Care Proxy Discharge Vitals Temperature: 99.1 DegF Height: 194 cm Pulse Rate: 87 bpm Weight: 93.9 kg Respiratory Rate: 18 br/min Body Mass Index: 24.95 kg/m2 Respiratory Rate: 18 br/min Body surface area: 2.25 Respiratory Rate: 18 br/min ?? Systolic Blood Pressure: 126 mm Hg ?? Diastolic Blood Pressure: 68 mm Hg ?? Oxygen Saturation: 96 % ?? Studies Pending All studies ordered during this hospital stay have been completed unless listed below. Please discuss all pending results with your provider listed above in these instructions. ?? No incomplete studies found?? What to do next Instructions From Your Doctor Upon discharge we recommend the following: ?? >??We have provided you with 7-day prescription of oxycodone short acting 30 mg every 4 hours asneeded for??Severe pain,??for further refills you will need to contact your primary care provider. ??We have already notified them of your discharge. ??Please??call your PCP office to schedule an appointment with them within 1-2 weeks??and for further refills. ?? >??In addition please take duloxetine 30 mg 2 times daily >??Tylenol 650 mg??every 6 hours??do not exceed 4 g a day >??Baclofen 20 mg daily >??Gabapentin 600 mg 3 times a day >??Tizanidine??4 mg every 8 hours ?? > Please follow up with your Psychiatric Arnp for continued management? Orders? 11/20/23 13:54:00 EDT?? Prescriptions??, ??11/20/23 13:54:00 EDT?? You Need to Schedule the Following Appointments Follow Up with??Derek Tomas MD When:??Within 1 week Where: [address] [place] [address]- Discharge Medications DAVID MCQUEEN :1985 Visit Date:11/18/2023 Medications: Please continue your medications until treatment is completed or stopped by your provider. Medications not listed below should be discontinued. Discuss any questions related to medications with your provider. What How Much When Why Instructions Next Dose Changed Oxycodone (oxyCODONE 30 mg IR tablet) 1 tab(s) Oral Every 4 hours as needed for Pain , Moderate Duration: 7 Days for moderate to severe pain ?? Pickup at [facility] 3 as needed, next dose at 6:30pm Unchanged Acetaminophen (acetaminophen 500 mg oral tablet) 2 tab(s) Oral 3 times a day as needed for for pain as needed, next dose at 9pm Unchanged Amlodipine (amLODIPine 5 mg oral tablet) 1 tab(s) Oral Daily 11/20 tomorrow morning Unchanged apixaban (Eliquis 5 mg oral tablet) 1 tab(s) Oral Twice a day 11/19 tonight Unchanged Ascorbic Acid (ascorbic acid 500 mg oral tablet) 1 tab(s) Oral Daily 11/20 tomorrow morning Unchanged Baclofen (baclofen 20 mg oral tablet) 1 tab(s) Oral 4 times a day 11/19 today at 6pm Unchanged canakinumab (Ilaris 150 mg/ mL subcutaneous solution) 150 Milligram Subcutaneous Injection Every 28 days resume home schedule Unchanged Cholecalciferol (Vitamin D3 1000 intl units oral tablet) 1 tab(s) Oral Daily 11/20 tomorrow morning Unchanged Clindamycin Topical (clindamycin 1% topical gel) APPLY TO AFFECTED AREA TOPICALLY TWICE A DAY ?? 11/19 tonight Unchanged Docusate (docusate sodium 100 mg oral capsule) 1 capsule Oral Twice a day 11/19 tonight Unchanged Duloxetine (duloxetine 30 mg oral enteric coated capsule) 1 capsule Oral Twice a day Duration: 30 Days TAKE 1 CAPSULE BY MOUTH EVERY DAY ?? 11/19 tonight Unchanged Durable Medical Equipment (Vashe wound solution) See instructions Hydradenitis Use 45mL daily ?? 11/20 tomorrow morning Unchanged Ferrous Sulfate (ferrous sulfate 325 mg oral tablet) 1 tab(s) Oral Twice a day 11/19 tonight Unchanged Folic Acid (folic acid 1 mg oral tablet) 1 tab(s) Oral Daily 11/20 tomorrow morning Unchanged Gabapentin (gabapentin 600 mg oral tablet) 1 tab(s) Oral 3 times a day 11/19 tonight Unchanged Hydroxyurea (hydroxyurea 500 mg oral capsule) TAKE 1 CAPSULE BY MOUTH EVERY DAY ?? 11/20 tomorrow morning Unchanged nalOXONE (Narcan 4 mg/ 0.1 mL nasal spray) 1 spray(s) Nares, Both Once To be used use one spray in one nostril. if an additional dose is needed, alternate nostril. may repeat every 2 to 3 minutes until patient responds ?? if needed Unchanged Pantoprazole (pantoprazole 40 mg oral delayed release tablet) 1 tab(s) Oral Daily 11/20 tomorrow morning Unchanged Tizanidine (tiZANidine 2 mg oral tablet) 2 tab(s) Oral Every 8 hours as needed for as needed for muscle spasm as needed Unchanged Triamcinolone Topical (triamcinolone 0.1% topical cream) 1 boyd Topically Twice a day *DO NOT APPLY TO OPEN WOUND(S)* ?? 11/19 [facility] Pharmacy Information [facility]: [address], [place] [id number] [phone] Prescription Given During Visit Oxycodone (oxyCODONE 30 mg IR tablet) - 1 tablet = 30 mg, By Mouth, Every 4 hours, # 42 tablet, 0 Refills, for moderate to severe pain, [facility] [facility], [address] [place], [place] [id number]?? Laboratory Results Below is a partial list of the most recent Laboratory test results done prior to this discharge. You may have had other tests and procedures not included in this list. Please discuss all test resultswith your provider. Est Creatinine Clearance - 144.16 mL/min (11/20/2023) Blood Culture (11/16/2023) ???Blood Culture Results - Preliminary report???Blood Culture Specimen Source - BLOOD Blood Culture #2 (11/16/2023) ???Blood Cult 2 Results - Preliminary report???Blood Culture 2 Specimen Source - BLOOD Blood Culture 2 Results (11/16/2023) ???Blood Culture 2 Isolate 1 - Comment Blood Culture Result (11/16/2023) ???Blood Culture Isolate 1 - Comment BUN (11/20/2023) ???BUN - 15 mg/dL CBC (11/20/2023) ???WBC - 5.4 k/mm3???RBC - 3.30 m/mm3???Hgb - 8.3 Gm/dL???Hct - 27.9 %???MCV - 84.5 femtoliters???MCH - 25.2 pg???MCHC - 29.7 g/dL???Platelet Count - 612 k/mm3???RDW-SD - 60.2 femtoliters???MPV - 8.3femtoliters???Nucleated RBC (Automated) - 0.0 #/100 WBC'S???Abs. NRBC - 0.0 k/mm3 CBC w/ Differential (11/17/2023) ???WBC - 7.6 k/mm3???RBC - 3.29 m/mm3???Hgb - 8.5 Gm/dL???Hct - 28.7 %???MCV - 87.2 femtoliters???MCH - 25.8 pg???MCHC - 29.6 g/dL???Platelet Count - 603 k/mm3???RDW-SD - 63.7 femtoliters???MPV - 8.4femtoliters???Nucleated RBC (Automated) - 0.0 #/100 WBC'S???Abs. NRBC - 0.0 k/mm3???Abs. Neut - 4.7 k/mm3???Abs. Lymph - 2.0 k/mm3???Abs. Hall - 0.8 k/mm3???Abs. Eo - 0.2 k/mm3???Abs. Baso - 0.0 k/mm3???Neut % - 60.9 %???Lymph % - 26.3 %???Hall % - 9.9 %???Eos % - 2.0 %???Baso % - 0.5 %???Imm Gran - 0.4 %???Abs. Imm Gran - 0.0 k/mm3 Comprehensive Metabolic Panel (11/17/2023) ???Sodium - 138 mmol/L???Potassium - 4.6 mmol/L???Chloride - 103 mmol/L???Bicarbonate Level - 23 mmol/L???Anion Gap - 12???Glucose Level - 90 mg/dL???BUN - 21 mg/dL???Creatinine-Blood - 0.77 mg/dL???Estimated GFR Creatinine - 118 ML/MIN/1.73 M2???Calcium - 8.7 mg/dL???Protein, Total - 7.4 Gm/dL???Albumin - 3.5 Gm/dL???AG Ratio - 0.9???Alkaline Phosphatase - 133 units/L???AST (SGOT) - 11 units/L???ALT (SGPT) - 6 units/L???Bilirubin, Total - 0.2 mg/dL Creatinine (11/20/2023) ???Creatinine-Blood - 0.87 mg/dL???Estimated GFR Creatinine - 114 ML/MIN/1.73 M2 CRP (11/16/2023) ???C-Reactive Protein - 3.5 mg/dL Electrolytes (11/20/2023) ???Sodium - 137 mmol/L???Potassium - 4.6 mmol/L???Chloride - 101 mmol/L???Bicarbonate Level - 25 mmol/L???Anion Gap - 11 ESR (11/16/2023) ? ?Sed Rate - >130 mm/hr GLUCOSE POC (11/19/2023) ???Glucose, POC - 88 mg/dL Lactate Level (11/16/2023) ???Lactate - 1.5 mmol/L Potassium Level (11/16/2023) ???Potassium - 4.7 mmol/L Allergies (NKA means No Known Allergies) NKA Problems Active Problems??(19) Chronic ischemic left ICA stroke?? Chronic pain?? [...] Belongings I fully understand and agree that [facility] accepts no responsibility for all my [...] and Belonging List: With patient, With witness Possessions released to: no medical advioces Date for Pt to Sign Valuables/Belongings: 11/20/23 13:14:00 ?? Other Discharge Information ? Case Management Discharge Plan?? Discharge Plan?? Discharge Agency Information?? Discharge Level of Care at Discharge: Homehealth/VNA Agency Pyridine Recovery Operator #1: admissions Discharge Transportation Arranged: [facility] [address] [facility] [id number] [phone] Service Categories #1: Physical Therapy, Longterm Mode of Transportation Arranged: Ambulance Service Comments #1: you will continue services through [facility] Discharge Arranged Transport Date/Time: 11/20/23 15:00:00 ?? Discharge VNA/Hospice/Home Care: [facility] [phone] ? Pulmonary Rehab Status?? Pulmonary Rehab Discharge Status?? Respiratory Rate: 18 br/min Respiratory Rate: 18 br/min Respiratory Rate: 18 [...] are strongly encouraged to quit. Please call [facility] [employer] Link at [phone] or [phone] ([phone]) or log in to [email or web address] for referrals to smoking cessation programs. ?? 988 Suicide & Crisis Lifeline is available 03/12 if you or someone you know needs to find a reason to keep living. By calling 988 you'll be connected to a skilled, trained counselor at a crisis center in your area. INPATIENT DISCHARGE INSTRUCTIONS SIGNATURE PAGE DAVID MCQUEEN Location:[facility] Registration Date and Time:11/18/2023 09:49 EDT Primary Care Physician: Derek Tomas MD, Attending Physician: [facility], I DAVID MCQUEEN, have received the above patient education materials/instructions and have verbalized understanding. If ambulance or transport services are being used I further acknowledge being given a choice of service. ?? If you need to contact me, please call me at this number: . Patient/Warp Tying Machine Knotter Name: Patient/Warp Tying Machine Knotter Signature: Relationship to Patient: Witness Name/Signature: Date: * Kaila Herron RN: PERFORM, SIGN, VERIFY Event Display: Case Management Discharge Plan Authored Date: [id number] Patient: DAVID MCQUEEN Age: 38 years Sex: Male : 1985 Associated Diagnoses: None Author: Kaila Herron RN Discharge Plan Case Management Discharge Plan : Case Management Discharge Plan Data 11/18/2023 13:18 EDT Discharge Level of Care at Discharge Homehealth/VNA Agency Pyridine Recovery Operator #1 intake Service Categories #1 Home health aide, Longterm Service Comments #1 the [facility] Visiting Nurse will call to set up atime to see you 1-2 days afterdischarge Patient Care team information Care Team Personnel Name: Anu Lipscomb RN Position: [facility] RN Member Role: Primary Care Nurse Name: Jeanne Bryant RN Position: [facility] RN Member Role: Primary Care Nurse Name: Mitch Guido RN Position: [facility] RN Member Role: Primary Care Nurse Name: Areli Pittman RN Position: [facility] ED RN W/OE and Tasks Member Role: Primary Care Nurse Name: Derek Tomas MD Position: [facility] Resident Member Role: PCP Address: Address: [address] [place] [address] Name: Mari Suh RN Position: [facility] RN Member Role: Primary Care Nurse Name: Monique Irwin LPN Position: [facility] RN Member Role: Primary Care Nurse Name: Lianna Epstein RN Position: [facility] RN Member Role: Primary Care Nurse Name: Austin Wright RN Position: [facility] RN Member Role: Primary Care Nurse Name: Mk Knutson LPN Position: [facility] RN Member Role: Primary Care Nurse Name: Betty Fonseca RN Position: [facility] RN Member Role: Primary Care Nurse Name: Farhana Garcia RN Position: [facility] RN Member Role: Primary Care Nurse Name: Kenyatta Villegas RN Position: [facility] RN Member Role: Primary Care Nurse Name: Albertina Adams RN Position: [facility] RN Member Role: Primary Care Nurse Name: Ricardo Russell RN Position: [facility] RN Member Role: Primary Care Nurse Name: Gissell Jernigan RN Position: [facility] RN Member Role: Primary Care Nurse Name: Farhana Green RN Position: [facility] RN Member Role: Primary Care Nurse Name: Cydney Delgado RN Position: [facility] RN Member Role: Primary Care Nurse Name: Debbie Rios RN Position: [facility] RN Member Role: Primary Care Nurse Name: Sharon Mendez RN Position: [facility] RN Member Role: Primary Care Nurse Name: Mookie Christianson RN Position: [facility] RN Member Role: Primary Care Nurse Name: Ally Boyd RN Position: [facility] RN Member Role: Primary Care Nurse Name: Javed Oneill RN Position: [facility] RN Member Role: Primary Care Nurse Name: Frances Quach RN Position: [facility] RN Member Role: Primary Care Nurse Name: Sandie Mejia RN Position: [facility] RN Member Role: Primary Care Nurse Name: Kriss Castillo RN Position: [facility] RN Member Role: Primary Care Nurse Name: Lynn Stewart RN Position: [facility] RN Member Role: Primary Care Nurse Name: Amanda Johnson RN Position: [facility] RN Member Role: Primary Care Nurse Name: Jolie Villalobos RN Position: [facility] RN Member Role: Primary Care Nurse Name: Axel Savage RN Position: [facility] RN Member Role: Primary Care Nurse Name: Dirk Driver RN Position: [facility] RN Member Role: Primary Care Nurse Name: Glenys Bee RN Position: [facility] RN Member Role: Primary Care Nurse Name: Praveen Maurer RN Position: [facility] RN Member Role: Primary Care Nurse Name: Filemon King RN Position: [facility] RN Member Role: Primary Care Nurse Name: Gomez Corona RN Position: [facility] RN Member Role: Primary Care Nurse Name: Lauren Guevara RN Position: [facility] RN Member Role: Primary Care Nurse Name: Annamaria Quinn RN Position: [facility] RN Member Role: Primary Care Nurse Name: Lashawn Nagy RN Position: [facility] RN Member Role: Primary Care Nurse Name: Rhonda Tate LPN Position: [facility] RN Member Role: Primary Care Nurse Name: Jacquelin Naranjo RN Position: [facility] RN Member Role: Primary Care Nurse Name: Glenys Fox RN Position: [facility] RN Member Role: Primary Care Nurse Name: Reilly Moreno RN Position: S RN Member Role: Primary Care Nurse Care Team Related Persons Name: CYNTHIA REYNAGA Address: home [address] [place] [address] Name: HEENA MCQUEEN Address: [address] [place] [address] Name: AISLINN DE LA PAZ Address: [address] [address]
--- OUTSIDE RECORDS SUMMARY | 2024-01-21 19:32 | XMS_ITS | Continuity of Care Document ---
Author Organization [facility] Address [address] [place] [address]- Care Team Providers Care Doughnut Machine Operator Helper Name Role Phone Genoveva PAGAN, Derek Primary Care Physician Encounter [facility] Date(s): 04/18/23 - 05/18/[address] [address]- Allergies, Adverse Reactions, Alerts No Known Allergies [...] 10/26/21 9:45:00 EDT, Route to Pharmacy Electronically, [facility]/pharmacy #[id number], 193, cm, 10/26/21 [...] capsule, 5 Refills, Maintenance, 08/17/22 15:25:00 EDT, [facility] STORE [id number], 193.04, cm, 07/23/22 14:07:00 EDT, Height, 99.6, kg, 06/06/22 18:00:00 EST, Dry Weight Start Date: 08/17/22 Status: Ordered Eliquis 5 mg oral tablet 1 tablet, By Mouth, 2 times a day, # 60 tablet, 11 Refills, 02/07/22 11:13:00 EDT, [facility]/pharmacy #[id number], 193, cm, 02/07/22 10:31:00 EDT, Height, 97.2, kg, 10/26/21 9:21:00 EDT, Dry Weight Start Date: 02/07/22 Status: Ordered ferrous sulfate 325 mg oral tablet TAKE 1 TABLET BY MOUTH EVERY DAY NEEDED Start Date: 09/12/22 Status: Ordered FLUoxetine 20 mg oral capsule 1, capsule, By Mouth, Daily, # 30 capsule, Refills 14, Maintenance, 08/13/22 15:55:00 EDT, Route toPharmacy Electronically, [facility], 193.04, cm, 07/23/22 14:07:00 EDT, Height, 99.6, [...] 02/22/22 9:42:00 EDT, Route to Pharmacy Electronically, [id number], 193, cm, 02/07/22 10:31:00 EDT, Height, 97.2, kg, 10/26/21 9:21:00 EDT, Dry Weight Start Date: 02/22/22 Status: Ordered Hospital bed Hospital bed, See Instructions, # 1 each, Refills 0, Tot. Refills 0, Maintenance, Use as needed daily, 04/11/23 6:56:00 EST, Supply, 193.04, cm, 12/13/22 10:25:00 EDT, Height, 99.6, kg, 06/06/22 18:00:00 EST, Dry Weight Start Date: 04/11/23 Status: Ordered large gauze large gauze, See [...] days, # 120 tablet, 0 Refills, Acute 06/16/23 13:20:00 EST, 05/17/23 13:20:00 EST, Tablet, [facility], Partial fill upon patient request if the prescription is for... Start Date: 05/17/23 Stop Date: 06/16/23 Status: Ordered omeprazole 40 mg oral enteric coated capsule 1 capsule, By Mouth, Daily, # 30 capsule, 5 Refills, Maintenance, 08/13/22 15:28:00 EDT, [facility]/pharmacy #[id number], 193.04, cm, 07/23/22 [...] need: 99 months Number to fax to: [phone], 01/06/21 13:10:00 E... Start Date: 01/06/21 Status: Ordered scopolamine 1 mg/72 hr transdermal film, extended release See Instructions, APPLY 1 PATCH TO RIGHT MASTOID BONE EVERY 72 HOURS, # 10 each, 3 Refills, Maintenance, 06/29/22 11:46:00 EST, [facility]/pharmacy #[id number], APPLY 1 PATCH TO RIGHT MASTOID BONE EVERY 72 HOURS,193.04, cm, 06/29/22 11:17:00 EST, Height, 99.6, kg... Start Date: 06/29/22 Status: Ordered scopolamine 1 mg/72 hr transdermal film, extended release 1 film, Topically, Every 72 hours, Apply to right mastoid bone, # 10 patch, 0 Refills, Maintenance,12/13/22 11:53:00 EDT, [facility]/pharmacy #[id number], Partial fill upon [...] 05/20/22 19:50:00 EST, Route to Pharmacy Electronically, [facility]/pharmacy #[id number], Partial fill upon patient request if the [...] apex Confirmed Active N CP Care Management, Colorer Carmen Elizabeth [phone] Confirmed Active Therapeutic drug monitoring Confirmed Active Peripheral neuropathy Confirmed Active Spasticity Confirmed Active Tobacco dependence Confirmed Active Social History Social History Type Response Smoking Status 5-9 cigarettes (betw een 1/4 to 1/2 pack)/day in last 30 days entered on: 05/16/22 Sex Patient Care team information Care Team Personnel Name: Areli Pittman RN Position: [facility] ED RN W/OE and Tasks Member Role: Primary Care Nurse Name: Derek Tomas MD Position: [facility] Resident Member Role: PCP Address: Address: [address] [place] [address]- Name: Ally Boyd RN Position: [facility] RN Member Role: Primary Care Nurse Name: Axel Savage RN Position: [facility] RN Member Role: Primary Care Nurse Name: Filemon King RN Position: [facility] RN Member Role: Primary Care Nurse Name: Glenys Fox RN Position: [facility] RN Member Role: Primary Care Nurse Care Team Related Persons Name: JUHI BEVERLY Address: [address] [place] [address] Name: AISLINN DE LA PAZ Address: [address] [place] [address]
--- OUTSIDE RECORDS SUMMARY | 2024-01-21 19:32 | XMS_ITS | Continuity of Care Document ---
Author Organization [facility] Address [address] [place] [address]- Care Team Providers Care Winter Intern Name Role Phone Genoveva PAGAN, Derek Primary Care Physician Encounter [facility] Date(s): 07/26/23 - 08/25/23 [facility] [address] [place] [address]- Attending Physician: Sangeetha Latif Admitting Physician: Sangeetha [...] 06/17/23 8:53:00 EST, Route to Pharmacy Electronically, [facility], Partial fill upon patient request if the prescription is for a schedule II opioid... Start Date: 06/17/23 Status: Ordered amoxicillin-clavulanate 875 mg-125 mg oral tablet 1 tablet, By Mouth, Every 12 hours, for 12 days, # 24 tablet, 0 Refills, Acute 09/04/23 15:52:00 EDT, 08/23/23 15:52:00 EDT, Tablet, [facility], Partial fill upon patient request if theprescription is for a schedule II opioid drug., 182... Start Date: 08/23/23 Stop Date: 09/04/23 Status: Ordered baclofen 20 mg oral tablet 20 mg, 1, tablet, By Mouth, 4 times a day, # 120 tablet, Refills 5, Tot. Refills 5, Maintenance, 08/06/23 9:00:00 EDT, Route to Pharmacy Electronically, [facility]/pharmacy #[id number], 182, cm, 07/26/23 9:16:00 EDT, Height, 89, kg, 07/03/23 11:22:00 EST, Dry Weight Start Date: 08/06/23 Status: Ordered docusate sodium 100 mg oral capsule 100 mg, 1, capsule, By Mouth, 2 times a day, # 60 capsule, Refills 0, Tot. Refills 0, Maintenance, 08/14/23 12:50:00 EDT, Route to Pharmacy Electronically, [facility]/pharmacy #[id number], Partial fill upon patient request if the prescription is for a schedule II... Start Date: 08/14/23 Stop Date: 09/13/23 Status: Ordered doxycycline hyclate 100 mg oral capsule 1 capsule = 100 mg, By Mouth, 2 times a day, for 12 days, # 24 capsule, 0 Refills, Acute 09/04/23 15:52:00 EDT, 08/23/23 15:52:00 EDT, Capsule, [facility], Partial fill upon patient request [...] capsule, 0 Refills, Maintenance, 07/16/23 9:56:00 EST, [facility], 182, cm, 07/04/23 14:56:00 EST, Height, 89, kg, 07/03/23 11:22:00 EST, Dry Weight Start Date: 07/16/23 Status: Ordered Eliquis 5 mg oral tablet See Instructions, TAKE 1 TABLET BY MOUTH TWICE A DAY, # 60 tablet, 11 Refills, Maintenance, 06/12/23 6:31:00 EST, [facility], 193, cm, 06/01/23 9:54:00 EST, Height, 90.9, kg, 06/01/23 9:54:00 EST, Dry Weight Start Date: 06/12/23 Status: Ordered ferrous sulfate 325 mg oral tablet 1 tablet = 325 mg, By Mouth, 2 times a day, TAKE 1 TABLET BY MOUTH EVERY DAY, # 180 tablet, 0 Refills, Maintenance, 08/14/23 12:47:00 EDT, Tablet, [facility]/pharmacy #[id number], [...] 06/12/23 6:46:00 EST, Route to Pharmacy Electronically, [facility]/pharmacy #[id number], Partial fill upon... Start Date: 06/12/23 Status: Ordered gabapentin 600 mg oral tablet 1 tablet = 600 mg, By Mouth, 3 times a day, # 90 tablet, 11 Refills, Maintenance, 08/12/23 13:51:00EDT, Tablet, [facility]/pharmacy #[id number], Partial fill upon patient request if the prescription is for a schedule II opioid drug., 182, cm, 07/26/23 9:16:00 EDT... Start Date: 08/12/23 Status: Ordered hydroxyurea 500 mg oral capsule = 500 mg, By Mouth, Daily, for 30 days, # 30 capsule, 2 Refills, Acute 10/18/23 14:36:00 EDT, 07/20/23 14:36:00 EST, Capsule, [facility]/pharmacy #[id number], Partial [...] 0 Refills, Soft Stop, 08/23/23 15:54:00 EDT, [facility]... Start Date: 08/23/23 Status: Ordered oxyCODONE 5 mg oral tablet 5 mg, 1, tablet, By Mouth, Every 6 hours, PRN, for 5 days, # 20 tablet, Refills 0, Tot. Refills 0, Acute 08/28/23 15:51:00 EDT, Pain , Severe, 08/23/23 15:51:00 EDT, Route to Pharmacy Electronically,[facility], Partial fill upon patient... Start [...] Pharmacy Electronically, [facility]/pharmacy #[id number], Partial fill upon patient request if the [...] 0 Refills, Maintenance, 07/16/23 10:05:00 EST, Tablet, [facility], Partial fill upon patient request [...] apex Confirmed Active N CP Care Management, Billboard Mechanic Carmen Elizabeth [phone] Confirmed Active Therapeutic drug monitoring Confirmed Active [...] Care Nurse Name: Areli Pittman RN Position: [facility] ED RN W/OE and Tasks Member Role: Primary Care Nurse Name: Derek Tomas MD Position: [facility] Resident Member Role: PCP Address: Address: [address] [place] [address] Name: Lianna Epstein RN Position: [facility] RN Member Role: Primary Care Nurse Name: Vicenta Barnett RN Position: S RN Member Role: Primary Care Nurse Name: Farhana Garcia RN Position: S RN Member Role: Primary Care Nurse Name: Farhana Green RN Position: S RN Member Role: Primary Care Nurse Name: Cydney Delgado RN Position: S RN Member Role: Primary Care Nurse Name: Ally Boyd RN Position: [facility] RN Member Role: Primary Care Nurse Name: Javed Oneill RN Position: [facility] RN Member Role: Primary Care Nurse Name: Lynn Stewart RN Position: S RN Member Role: Primary Care Nurse Name: Jolie Villalobos RN Position: [facility] RN Member Role: Primary Care Nurse Name: Axel Savage RN Position: [facility] RN Member Role: Primary Care Nurse Name: Glenys Bee RN Position: [facility] RN Member Role: Primary Care Nurse Name: Praveen Maurer Position: [facility] RN Member Role: Primary Care Nurse Name: Filemon King RN Position: [facility] RN Member Role: Primary Care Nurse Name: Lauren Guevara RN Position: [facility] RN Member Role: Primary Care Nurse Name: Lashawn Nagy RN Position: [facility] RN Member Role: Primary Care Nurse Name: Glenys Fox RN Position: [facility] RN Member Role: Primary Care Nurse Care Team Related Persons Name: BEVERLY REYNAGA Address: [place] [facility] [address] Name: AISLINN DE LA PAZ Address: home [address] [place] [id number]
--- OUTSIDE RECORDS SUMMARY | 2024-01-21 19:32 | XMS_ITS | Continuity of Care Document ---
Author Organization [facility] Address [address] [place] [address]- Care Team Providers Care Rewinder Operator Helper Name Role Phone Genoveva PAGAN, Derek Primary Care Physician Encounter [facility] Date(s): 08/28/23 - 09/27/[address] [address]- Allergies, Adverse Reactions, Alerts No Known Allergies Immunizations Given and Recorded Vaccine Date Status Refusal Reason influenza virus vaccine, inactivated 05/18/22 Give n tetanus/diphtheria/pertussis, acel(Tdap) 09/13/19 Recorded Medications amLODIPine 5 mg oral tablet 5 mg, 1, tablet, By Mouth, Daily, # 30 tablet, Refills 0, Tot. Refills 0, Maintenance, 06/17/23 8:53:00 EST, Route to Pharmacy Electronically, [facility], Partial fill upon patient request if the prescription is for a schedule II opioid... Start Date: 06/17/23 Status: Ordered ascorbic acid 500 mg oral tablet 1 tablet = 500 mg, By Mouth, Daily, # 30 tablet, 0 Refills, Maintenance, 09/06/23 12:42:00 EDT, Tablet, [facility]/pharmacy #[id number], Partial fill upon patient request if the prescription is for a schedule II opioid drug., 193, cm, 09/05/23 19:48:00 EDT, Height... Start Date: 09/06/23 Status: Ordered baclofen 20 mg oral tablet 20 mg, 1, tablet, By Mouth, 4 times a day, # 120 tablet, Refills 5, Tot. Refills 5, Maintenance, 08/06/23 9:00:00 EDT, Route to Pharmacy Electronically, [facility]/pharmacy #[id number], 182, cm, 07/26/23 9:16:00 EDT, Height, 89, kg, 07/03/23 11:22:00 EST, Dry Weight Start Date: 08/06/23 Status: Ordered docusate sodium 100 mg oral capsule 1 capsule, By Mouth, 2 times a day, # 60 capsule, 11 Refills, Maintenance, 09/03/23 17:44:00 EDT, [id number], 193, cm, 09/03/23 14:09:00 EDT, Height, 91.4, kg, 08/30/23 12:03:00 EDT, Dry Weight Start Date: 09/03/23 Status: Ordered duloxetine 30 mg oral enteric coated capsule 1 capsule = 30 mg, By Mouth, Daily, TAKE 1 CAPSULE BY MOUTH EVERY DAY, # 30 capsule, 6 Refills, Maintenance, 09/03/23 17:47:00 EDT, Capsule, [facility]/pharmacy #[id number], Partial fill upon patient request if [...] tablet, 11 Refills, Maintenance, 08/12/23 13:51:00EDT, Tablet, [facility]/pharmacy #[id number], Partial fill upon patient request if the prescription is for a schedule II opioid drug., 182, cm, 07/26/23 9:16:00 EDT... Start Date: 08/12/23 Status: Ordered hydroxyurea 500 mg oral capsule = 500 mg, By Mouth, Daily, for 30 days, # 30 capsule, 2 Refills, Acute 10/18/23 14:36:00 EDT, 07/20/23 14:36:00 EST, Capsule, [facility]/pharmacy #[id number], Partial fill upon patient request if the prescriptionis for a schedule II opioid drug., 182, cm, ... Start Date: 07/20/23 Stop Date: 10/18/23 Status: Ordered MiraLax oral powder for reconstitution = 17 Gm, By Mouth, Daily, PRN Constipation, for 30 days, # 30 each, 0 Refills, Acute 10/06/23 12:41:00 EDT, 09/06/23 12:41:00 EDT, REC Powder, [facility] #[id number], Partial fill upon patient request ifthe [...] 08/12/23 13:51:00 EDT, Route to Pharmacy Electronically, [facility]/pharmacy #[id number], Partial fill upon patient request if the [...] 0 Refills, Maintenance, 07/16/23 10:05:00 EST, Tablet, [facility], Partial fill upon patient [...] Confirmed Active Iron deficiency anemia Confirmed Active PTAY (iron deficiency anemia) Confirmed Active 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 [facility] CP Care Management, Band Booker Carmen Elizabeth [phone] Confirmed Active Therapeutic drug monitoring Confirmed Active Peripheral neuropathy Confirmed Active Right spastic hemiparesis Confirmed Active Spasticity Confirmed Active Tobacco dependence Confirmed Active Social History Social History Type Response Smoking Status 5-9 cigarettes (betw een 1/4 to 1/2 pack)/day in last 30 days entered on: 05/16/22 Sex Patient Care team information Care Team Personnel Name: Anu Lipscomb Ann Position: [facility] RN Member Role: Primary Care Nurse Name: Jeanne Bryant RN Position: [facility] RN Member Role: Primary Care Nurse Name: Areli Pittman RN Position: [facility] ED RN W/OE and Tasks Member Role: Primary Care Nurse Name: Derek Tomas MD Position: [facility] Resident Member Role: PCP Address: Address: [address] [place] [address] Name: Monique Irwin LPN Position: [facility] RN Member Role: Primary Care Nurse Name: Lianna Epstein RN Position: [facility] RN Member Role: Primary Care Nurse Name: Vicenta Barnett RN Position: [facility] RN Member Role: Primary Care Nurse Name: Farhana Garcia RN Position: [facility] RN Member Role: Primary Care Nurse Name: Ricardo Russell RN Position: [facility] RN Member Role: Primary Care Nurse Name: Gissell Jernigan RN Position: [facility] RN Member Role: Primary Care Nurse Name: Farhana Green RN Position: [facility] RN Member Role: Primary Care Nurse Name: Cydney Delgado RN Position: [facility] RN Member Role: Primary Care Nurse Name: Sharon Mendez RN Position: [facility] RN Member Role: Primary Care Nurse Name: Mookie Christianson RN Position: [facility] RN Member Role: Primary Care Nurse Name: Ally Boyd RN Position: [facility] RN Member Role: Primary Care Nurse Name: Javed Oneill RN Position: [facility] RN Member Role: Primary Care Nurse Name: Lynn Stewart RN Position: [facility] RN Member Role: Primary Care Nurse Name: Amanda Johnson RN Position: [facility] RN Member Role: Primary Care Nurse Name: Jolie Villalobos RN Position: [facility] RN Member Role: Primary Care Nurse Name: Axel Savage RN Position: [facility] RN Member Role: Primary Care Nurse Name: Dirk Driver RN Position: [facility] RN Member Role: Primary Care Nurse Name: Glenys Bee RN Position: [facility] RN Member Role: Primary Care Nurse Name: Praveen Maurer Position: [facility] RN Member Role: Primary Care Nurse Name: Filemon King RN Position: [facility] RN Member Role: Primary Care Nurse Name: Lauren Guevara RN Position: S RN Member Role: Primary Care Nurse Name: Annamaria Quinn RN Position: [facility] RN Member Role: Primary Care Nurse Name: Jada Waller RN Position: S RN Member Role: Primary Care Nurse Name: Lashawn Nagy RN Position: [facility] RN Member Role: Primary Care Nurse Name: Jacquelin Naranjo RN Position: [facility] RN Member Role: Primary Care Nurse Name: Glenys Fox RN Position: [facility] RN Member Role: Primary Care Nurse Care Team Related Persons Name: JUHI BEVERLY Address: [place] [address] Name: AISLINN DE LA PAZ Address: home [address] [place] [address]
--- OUTSIDE RECORDS SUMMARY | 2024-01-21 19:32 | XMS_ITS | Continuity of Care Document ---
Author Organization [facility] Address [address] [place] [address]- Care Team Providers Care Glass Worker Name Role Phone Derek Tomas MD Primary Care Physician [place] [facility] Date([place]): 06/10/23 - 07/10/[address] [address]- Allergies, Adverse Reactions, Alerts No Known Allergies [...] 06/17/23 8:53:00 EST, Route to Pharmacy Electronically, [facility], Partial fill upon patient request if the prescription is for a schedule II opioid... Start Date: 06/17/23 Status: Ordered baclofen 20 mg oral tablet 20 mg, 1, tablet, By Mouth, 4 times a day, # 120 tablet, Refills 0, Tot. Refills 0, Maintenance, 06/03/23 13:25:00 EST, Route to Pharmacy Electronically, [facility], 193, cm, 06/01/23 9:54:00 EST, Height, 90.9, kg, 06/01/23 9:54:00 EST,... Start Date: 06/03/23 Status: Ordered duloxetine 30 mg oral enteric coated capsule 1 capsule, By Mouth, Daily, # 30 capsule, 5 Refills, Maintenance, 06/12/23 6:45:00 EST, [facility]/pharmacy #[id number], 193, cm, 06/01/23 9:54:00 EST, Height, 90.9, kg, 06/01/23 9:54:00 EST, Dry Weight Start Date: 06/12/23 Status: Ordered Eliquis 5 mg oral tablet See Instructions, TAKE 1 TABLET BY MOUTH TWICE A DAY, # 60 tablet, 11 Refills, Maintenance, 06/12/23 6:31:00 EST, [facility] [id number], 193, cm, 06/01/23 9:54:00 EST, Height, 90.9, kg, 06/01/23 9:54:00 EST, Dry Weight Start Date: 06/12/23 Status: Ordered ferrous sulfate 325 mg oral tablet 1 tablet = 325 mg, By Mouth, Daily, TAKE 1 TABLET BY MOUTH EVERY DAY, # 30 tablet, 0 Refills, Maintenance, 06/12/23 6:46:00 EST, Tablet, [facility]/pharmacy #[id number], Partial fill [...] 06/12/23 6:46:00 EST, Route to Pharmacy Electronically, [facility]/pharmacy [facility][id number], Partial fill upon... Start Date: 06/12/23 Status: Ordered gabapentin 600 mg oral tablet 1 tablet = 600 mg, By Mouth, 3 times a day, # 90 tablet, 0 Refills, Maintenance, 06/21/23 12:34:00 EST, Tablet, [facility]/pharmacy #[id number], Partial fill [...] capsule, 5 Refills, Maintenance, 08/13/22 15:28:00 EDT, [facility][id number], 193.04, cm, 07/23/22 14:07:00 EDT, [...] 06/21/23 12:37:00 EST, Route to Pharmacy Electronically, [facility]/pharmacy #[id number], Partial fill upon [...] apex Confirmed Active [facility] CP Care Management, Cosmetology Teacher Carmen Elizabeth [phone] Confirmed Active Therapeutic drug monitoring Confirmed Active [...] Care Nurse Name: Areli Pittman RN Position: [facility] ED RN W/OE and Tasks Member Role: Primary Care Nurse Name: Derek Tomas MD Position: S Resident Member Role: PCP Address: Address: [address] [place] [address]- Name: Farhana Garcia RN Position: S RN Member Role: Primary Care Nurse Name: Farhana Green RN Position: S RN Member Role: Primary Care Nurse Name: Ally Boyd RN Position: S RN Member Role: Primary Care Nurse Name: Javed Oneill RN Position: S RN Member Role: Primary Care Nurse Name: yLnn Stewart RN Position: S RN Member Role: Primary Care Nurse Name: Jolie Villalobos RN Position: [facility] RN Member Role: Primary Care Nurse Name: Axel Savage RN Position: [facility] RN Member Role: Primary Care Nurse Name: Glenys Bee RN Position: [facility] RN Member Role: Primary Care Nurse Name: Filemon King RN Position: [facility] RN Member Role: Primary Care Nurse Name: Lauren Guevara RN Position: S RN Member Role: Primary Care Nurse Name: Lashawn Nagy RN Position: S RN Member Role: Primary Care Nurse Name: Glenys Fox RN Position: [facility] RN Member Role: Primary Care Nurse Care Team Related Persons Name: BEVERLY REYNAGA Address: [place] [address] Name: AISLINN DE LA PAZ Address: home [address] [place] [address]
--- OUTSIDE RECORDS SUMMARY | 2024-01-21 19:32 | XMS_ITS | Continuity of Care Document ---
Author Organization [facility] Address [address] [place] [address]- Care Team Providers Care Vending Stand Supervisor Name Role Phone Genoveva PAGAN, Derek Primary Care Physician Encounter 05/30/23 - 10/18/23 [facility] [address] [place] [id number]- Discharge Disposition: [facility] Allergies, Adverse Reactions, Alerts No Known Allergies [...] 0 Refills, Maintenance, 09/06/23 12:42:00 EDT, Tablet, [facility]acy #[id number], Partial fill upon patient request if the prescription is for a schedule II opioid drug., 193, cm, 09/05/23 19:48:00 EDT, Height... Start Date: 09/06/23 Status: Ordered baclofen 20 mg oral tablet 20 mg, 1, tablet, By Mouth, 4 times a day, # 120 tablet, Refills 5, Tot. Refills 5, Maintenance, 08/06/23 9:00:00 EDT, Route to Pharmacy Electronically, [facility]/pharmacy #[id number], 182, cm, 07/26/23 9:16:00 EDT, Height, 89, kg, 07/03/23 11:22:00 EST, Dry Weight Start Date: 08/06/23 Status: Ordered docusate sodium 100 mg oral capsule 1 capsule, By Mouth, 2 times a day, # 60 capsule, 11 Refills, Maintenance, 09/03/23 17:44:00 EDT, [facility], 193, cm, 09/03/23 14:09:00 EDT, Height, 91.4, kg, 08/30/23 12:03:00 EDT, Dry Weight Start Date: 09/03/23 Status: Ordered duloxetine 30 mg oral enteric coated capsule 1 capsule = 30 mg, By Mouth, Daily, TAKE 1 CAPSULE BY MOUTH EVERY DAY, # 30 capsule, 6 Refills, Maintenance, 09/03/23 17:47:00 EDT, Capsule, [id number], Partial fill upon patient [...] 0 Refills, Maintenance, 10/16/23 15:51:00 EDT, [facility], 193, cm, 10/04/23 3:49:00 EDT, Height, 90.4, [...] 11/15/23 15:53:00 EDT, 10/16/23 15:53:00 EDT, Capsule, [facility]/pharmacy #[id number], Partial fill upon patient request [...] 0 Refills, Maintenance, 10/11/23 13:02:00 EDT, Tablet, [facility]/pharmacy #[id number], Partial fill uponpatient request if [...] 08/12/23 13:51:00 EDT, Route to Pharmacy Electronically, [facility]/pharmacy #[id number], Partial fill upon patient request if the [...] 07/16/23 10:05:00 EST, Tablet, [facility], Partial fill upon patient request if [...] apex Confirmed Active N CP Care Management, Memorial Designer Carmen Elizabeth [phone] Confirmed Active Therapeutic drug monitoring Confirmed Active Peripheral neuropathy Confirmed Active Right spastic hemiparesis Confirmed Active Spasticity Confirmed Active Tobacco dependence Confirmed Active Social History Social History Type Response Smoking Status 5-9 cigarettes (betw een 1/4 to 1/2 pack)/day in last 30 days entered on: 05/16/22 Sex Patient Care team information Care Team Personnel Name: Anu Lipscomb RN Position: [facility] RN Member Role: Primary Care Nurse Name: Jeanne Bryant RN Position: [facility] RN Member Role: Primary Care Nurse Name: Mitch Guido RN Position: S RN Member Role: Primary Care Nurse Name: Areli Pittman RN Position: [facility] ED RN W/OE and Tasks Member Role: Primary Care Nurse Name: Derek Tomas MD Position: [facility] Resident Member Role: PCP Address: Address: [address] [place] [address] Name: Monique Irwin LPN Position: [facility] RN Member Role: Primary Care Nurse Name: Lianna Epstein RN Position: [facility] RN Member Role: Primary Care Nurse Name: Mk Knutson LPN Position: [facility] RN Member Role: Primary Care Nurse Name: Farhana Garcia RN Position: [facility] RN Member Role: Primary Care Nurse Name: Kenyatta Villegas RN Position: [facility] RN Member Role: Primary Care Nurse Name: Albertina Adams RN Position: [facility] RN Member Role: Primary Care Nurse Name: Ricardo Russell RN Position: [facility] RN Member Role: Primary Care Nurse Name: Gissell Jernigan RN Position: [facility] RN Member Role: Primary Care Nurse Name: Farhana Green RN Position: [facility] RN Member Role: Primary Care Nurse Name: Cydney Delgado RN Position: [facility] RN Member Role: Primary Care Nurse Name: Sharon Mendez RN Position: [facility] RN Member Role: Primary Care Nurse Name: Mookie Christianson RN Position: [facility] RN Member Role: Primary Care Nurse Name: Ally Boyd RN Position: [facility] RN Member Role: Primary Care Nurse Name: Javed Oneill RN Position: [facility] RN Member Role: Primary Care Nurse Name: Lynn Stewart RN Position: [facility] RN Member Role: Primary Care Nurse Name: Amanda Johnson RN Position: [facility] RN Member Role: Primary Care Nurse Name: Jolie Villalobos RN Position: [facility] RN Member Role: Primary Care Nurse Name: Axel Savage RN Position: [facility] RN Member Role: Primary Care Nurse Name: Dirk Driver RN Position: [facility] RN Member Role: Primary Care Nurse Name: Glenys Bee RN Position: [facility] RN Member Role: Primary Care Nurse Name: Praveen Maurer RN Position: [facility] RN Member Role: Primary Care Nurse Name: Filemon King RN Position: [facility] RN Member Role: Primary Care Nurse Name: Lauren Guevara RN Position: [facility] RN Member Role: Primary Care Nurse Name: Annamaria Quinn RN Position: [facility] RN Member Role: Primary Care Nurse Name: Lashawn Nagy RN Position: [facility] RN Member Role: Primary Care Nurse Name: Rhonda Tate LPN Position: [facility] RN Member Role: Primary Care Nurse Name: Jacquelin Naranjo RN Position: [facility] RN Member Role: Primary Care Nurse Name: Glenys Fox RN Position: [facility] RN Member Role: Primary Care Nurse Care Team Related Persons Name: BEVERLY REYNAGA Address: [place] [address] Name: HEENA MCQUEEN Address: home [address] [place] [address] Name: AISLINN DE LA PAZ Address: [address] [place] [address]
--- OUTSIDE RECORDS SUMMARY | 2024-01-21 19:32 | XMS_ITS | Continuity of Care Document ---
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 Refills 0, Maintenance, 06/17/23 8:53:00 EST, Route to Pharmacy Electronically, [facility], Partial fill upon patient request if the prescription is for a schedule II opioid... Start Date: 06/17/23 Status: Ordered ascorbic acid 500 mg oral tablet 1 tablet = 500 mg, By Mouth, Daily, # 30 tablet, 0 Refills, Maintenance, 09/06/23 12:42:00 EDT, Tablet, [facility]/pharmacy #[id number], Partial fill [...] Refills, Maintenance, 09/03/23 17:44:00 EDT, [facility], 193, cm, 09/03/23 14:09:00 EDT, Height, 91.4, kg, 08/30/23 12:03:00 EDT, Dry Weight Start Date: 09/03/23 Status: Ordered duloxetine 30 mg oral enteric coated capsule 1 capsule = 30 mg, By Mouth, Daily, TAKE 1 CAPSULE BY MOUTH EVERY DAY, # 30 capsule, 6 Refills, Maintenance, 09/03/23 17:47:00 EDT, Capsule, [facility]/pharmacy #[id number], Partial fill [...] 0 Refills, Maintenance, 10/16/23 15:51:00 EDT, [facility], 193, cm, 10/04/23 3:49:00 EDT, Height, 90.4, [...] 11/15/23 15:53:00 EDT, 10/16/23 15:53:00 EDT, Capsule, [facility]/pharmacy #[id number], Partial fill [...] 0 Refills, Maintenance, 10/11/23 13:02:00 EDT, Tablet, [facility]/pharmacy #[id number], Partial fill uponpatient request if [...] EDT, Route to Pharmacy Electronically, [facility]/pharmacy #[id number], Partial fill upon patient request [...] Maintenance, 07/16/23 10:05:00 EST, Tablet, [facility], Partial fill upon patient request [...] apex Confirmed Active [facility] CP Care Management, Physical Fitness Teacher Carmen Elizabeth [phone] Confirmed Active Therapeutic drug monitoring Confirmed Active Peripheral neuropathy Confirmed Active Right spastic hemiparesis Confirmed Active Spasticity Confirmed Active Tobacco dependence Confirmed Active Social History Social History Type Response Smoking Status 5-9 cigarettes (betw een 1/4 to 1/2 pack)/day in last 30 days entered on: 05/16/22 Sex Patient Care team information Care Team Personnel Name: Anu Lipscomb RN Position: [facility] RN Member Role: Primary Care Nurse Name: Jeanne Bryant RN Position: [facility] RN Member Role: Primary Care Nurse Name: Mitch Guido RN Position: [facility] RN Member Role: Primary Care Nurse Name: Areli Pittman RN Position: [facility] ED RN W/OE and Tasks Member Role: Primary Care Nurse Name: Derek Tomas MD Position: [facility] Resident Member Role: PCP Address: Address: [address] [place] [id number] Name: Monique Irwin LPN Position: [facility] RN Member Role: Primary Care Nurse Name: Lianna Epstein RN Position: [facility] RN Member Role: Primary Care Nurse Name: Mk Knutson LPN Position: [facility] RN Member Role: Primary Care Nurse Name: Farhana Garcia RN Position: [facility] RN Member Role: Primary Care Nurse Name: Kenyatta Villegas RN Position: [facility] RN Member Role: Primary Care Nurse Name: Albertina Adams RN Position: [facility] RN Member Role: Primary Care Nurse Name: Ricardo Russell RN Position: [facility] RN Member Role: Primary Care Nurse Name: Gissell Jernigan RN Position: [facility] RN Member Role: Primary Care Nurse Name: Farhana rGeen RN Position: [facility] RN Member Role: Primary Care Nurse Name: Cydney Delgado RN Position: [facility] RN Member Role: Primary Care Nurse Name: Sharon Mendez RN Position: [facility] RN Member Role: Primary Care Nurse Name: Mookie Christianson RN Position: [facility] RN Member Role: Primary Care Nurse Name: Ally Boyd RN Position: [facility] [...] Care Nurse Name: Praveen Maurer Position: [facility] RN [...] Related Persons Name: JUHI BEVERLY Address: home [place], [place] Name: HEENA MCQUEEN Address: home [address] [place], [place] Name: AISLINN DE LA PAZ Address: [address] [place] [address]
--- OUTSIDE RECORDS SUMMARY | 2024-01-21 19:32 | XMS_ITS | Continuity of Care Document ---
Author Organization [facility] Address [address] [place] [address]- Care Team Providers Care Celery Packer Name Role Phone Derek Tomas MD Primary Care Physician [place] [facility] [place] - 11/22/[address] [address]- Allergies, Adverse Reactions, Alerts No Known Allergies Immunizations Given and Recorded Vaccine Date Status Refusal Reason influenza virus vaccine, inactivated 05/18/22 Give n tetanus/diphtheria/pertussis, acel(Tdap) 09/13/19 Recorded Medications acetaminophen 500 mg oral tablet 2 tablet = 1,000 mg, By Mouth, 3 times a day, PRN for pain, # 100 tablet, 6 Refills, Acute 05/12/2415:40:00 EST, 10/25/23 15:40:00 EDT, Tablet, [facility]/pharmacy #[id number], Partial fill upon patient request if the prescription is for a schedule II opioid drug... Start Date: 10/25/23 Stop Date: 05/12/24 Status: Ordered amLODIPine 5 mg oral tablet 5 mg, 1, tablet, By Mouth, Daily, # 30 tablet, Refills 0, Tot. Refills 0, Maintenance, 06/17/23 8:53:00 EST, Route to Pharmacy Electronically, [facility], Partial fill upon [...] Route to Pharmacy Electronically, [facility]/pharmacy #[id number], 182, cm, 07/26/23 9:16:00 EDT, Height, 89, kg, 07/03/23 11:22:00 EST, Dry Weight Start Date: 08/06/23 Status: Ordered clindamycin 1% topical gel APPLY TO AFFECTED AREA TOPICALLY TWICE A DAY Start Date: 11/17/23 Status: Ordered docusate sodium 100 mg oral capsule 1 capsule, By Mouth, 2 times a day, # 60 capsule, 11 Refills, Maintenance, 09/03/23 17:44:00 EDT, [id number], 193, cm, 09/03/23 14:09:00 EDT, Height, 91.4, kg, 08/30/23 12:03:00 EDT, Dry Weight Start Date: 09/03/23 Status: Ordered duloxetine 30 mg oral enteric coated capsule 1 capsule = 30 mg, By Mouth, 2 times a day, TAKE 1 CAPSULE BY MOUTH EVERY DAY, # 60 capsule, 6 Refills, Maintenance, 10/25/23 15:39:00 EDT, Capsule, [facility]/pharmacy #[id number], Partial fill upon patient [...] 0 Refills, Maintenance, 10/16/23 15:51:00 EDT, [id number], 193, cm, 10/04/23 3:49:00 EDT, Height, 90.4, [...] Refills, Maintenance, 08/12/23 13:51:00EDT, Tablet, [facility]/pharmacy #[id number], Partial fill upon patient [...] 11/26/23 14:52:00 EDT, 11/19/23 14:52:00 EDT, Tablet, [facility], Partial fill upon [...] Route to Pharmacy Electronically, [facility]/pharmacy #[id number], Partial fill upon patient request if [...] 0 Refills, Maintenance, 07/16/23 10:05:00 EST, Tablet, [facility], Partial fill upon patient [...] Team Personnel Name: Anu Lipscomb RN Position: [facility] RN Member Role: Primary Care Nurse Name: Jeanne Bryant RN Position: [facility] RN Member Role: Primary Care Nurse Name: Mitch Guido RN Position: [facility] RN Member Role: Primary Care Nurse Name: Areli Pittman RN Position: [facility] ED RN W/OE and Tasks Member Role: Primary Care Nurse Name: Derek Tomas MD Position: [facility] Resident Member Role: PCP Address: Address: [address] [place] [address] Name: Mari Suh RN Position: [facility] RN Member Role: Primary Care Nurse Name: Monique Irwin LPN Position: [facility] RN Member Role: Primary Care Nurse Name: Lianna Epstein RN Position: [facility] RN Member Role: Primary Care Nurse Name: Austin Wright RN Position: [facility] RN Member Role: Primary Care Nurse Name: Mk Knutson LPN Position: [facility] RN Member Role: Primary Care Nurse Name: Betty Fonseca RN Position: [facility] RN Member Role: Primary Care Nurse Name: Farhana Garcia RN Position: [facility] RN Member Role: Primary Care Nurse Name: Kenyatta Villegas RN Position: [facility] RN Member Role: Primary Care Nurse Name: Albertina Adams RN Position: [facility] [...] Care Nurse Name: Debbie Rios RN Position: [facility] [...] Care Nurse Name: Frances Quach RN Position: [facility] RN Member Role: Primary Care Nurse Name: Sandie Mejai RN Position: [facility] RN Member Role: Primary Care Nurse Name: Kriss Castillo RN Position: [facility] [...] Care Nurse Name: Praveen Maurer RN Position: [facility] RN Member Role: Primary Care Nurse Name: Filemon King RN Position: [facility] RN Member Role: Primary Care Nurse Name: Gomez Corona RN Position: [facility] [...] Care Nurse Name: Rhonda Tate LPN Position: [facility] RN Member Role: Primary Care Nurse Name: Jacquelin Naranjo RN Position: [facility] RN Member Role: Primary Care Nurse Name: Glenys Fox RN Position: [facility] RN Member Role: Primary Care Nurse Name: Reilly Moreno RN Position: [facility] RN Member Role: Primary Care Nurse Care Team Related Persons Name: BEVERLY REYNAGA Address: [address] [place] [address] Name: HEENA MCQUEEN Address: [facility] [address] [place] [address] Name: AISLINN DE LA PAZ Address: [address] [address]
--- OUTSIDE RECORDS SUMMARY | 2024-01-21 19:32 | XMS_ITS | Continuity of Care Document ---
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 Start Date: 06/17/23 Status: Ordered ascorbic acid 500 mg oral tablet 1 tablet = 500 mg, By Mouth, Daily, # 30 tablet, 0 Refills, Maintenance, 09/06/23 12:42:00 EDT, Tablet, [facility]/pharmacy #[id number], Partial fill upon patient request if the prescription is for a schedule II opioid drug., 193, cm, 09/05/23 19:48:00 EDT, Height... Start Date: 09/06/23 Status: Ordered baclofen 20 mg oral tablet 20 mg, 1, tablet, By Mouth, 4 times a day, # 120 tablet, Refills 5, Tot. Refills 5, Maintenance, 08/06/23 9:00:00 EDT, Route to Pharmacy Electronically, [facility]/pharmacy #[id number], 182, cm, 07/26/23 9:16:00 EDT, Height, 89, kg, 07/03/23 11:22:00 EST, Dry Weight Start Date: 08/06/23 Status: Ordered docusate sodium 100 mg oral capsule 1 capsule, By Mouth, 2 times a day, # 60 capsule, 11 Refills, Maintenance, 09/03/23 17:44:00 EDT, [id number], 193, cm, 09/03/23 14:09:00 EDT, Height, 91.4, kg, 08/30/23 12:03:00 EDT, Dry Weight Start Date: 09/03/23 Status: Ordered duloxetine 30 mg oral enteric coated capsule 1 capsule = 30 mg, By Mouth, Daily, TAKE 1 CAPSULE BY MOUTH EVERY DAY, # 30 capsule, 6 Refills, Maintenance, 09/03/23 17:47:00 EDT, Capsule, [facility]/pharmacy #[id number], Partial fill upon patient request if the prescription is for a schedule II opioid drug., 1... Start Date: 09/03/23 Stop Date: 03/31/24 Status: Ordered Eliquis 5 mg oral tablet See Instructions, TAKE 1 TABLET BY MOUTH TWICE A DAY, # 60 tablet, 11 Refills, Maintenance, 06/12/23 6:31:00 EST, [id number], 193, cm, 06/01/23 9:54:00 EST, Height, 90.9, kg, 06/01/23 9:54:00 EST, Dry Weight Start Date: 06/12/23 Status: Ordered ferrous sulfate 325 mg oral tablet 1 tablet = 325 mg, By Mouth, 2 times a day, TAKE 1 TABLET BY MOUTH EVERY DAY, # 180 tablet, 0 Refills, Maintenance, 08/14/23 12:47:00 EDT, Tablet, [facility]/pharmacy #[id number], Partial fill upon patient request [...] 06/12/23 6:46:00 EST, Route to Pharmacy Electronically, [facility]/pharmacy #[id number], Partial fill upon... Start Date: 06/12/23 Status: Ordered gabapentin 600 mg oral tablet 1 tablet = 600 mg, By Mouth, 3 times a day, # 90 tablet, 11 Refills, Maintenance, 08/12/23 13:51:00EDT, Tablet, [facility]/pharmacy #[id number], Partial fill upon patient request if the prescription is for a schedule II opioid drug., frank Mitchell, 07/26/23 9:16:00 EDT... Start Date: 08/12/23 Status: Ordered hydroxyurea 500 mg oral capsule = 500 mg, By Mouth, Daily, for 30 days, # 30 capsule, 2 Refills, Acute 10/18/23 14:36:00 EDT, 07/20/23 14:36:00 EST, Capsule, [facility]/pharmacy #[id number], Partial fill upon patient request if the prescriptionis for a schedule II opioid drug., frank Mitchell, ... Start Date: 07/20/23 Stop Date: 10/18/23 Status: Ordered MiraLax oral powder for reconstitution = 17 Gm, By Mouth, Daily, PRN Constipation, for 30 days, # 30 each, 0 Refills, Acute 10/06/23 12:41:00 EDT, 09/06/23 12:41:00 EDT, REC Powder, [facility]/pharmacy #[id number], Partial fill upon patient request [...] 08/12/23 13:51:00 EDT, Route to Pharmacy Electronically, [facility]/pharmacy #[id number], Partial fill upon patient request if the [...] 0 Refills, Maintenance, 07/16/23 10:05:00 EST, Tablet, [facility], Partial fill upon patient [...] apex Confirmed Active [facility] Care Management, [employer] Executive Carmen Elizabeth [phone] Confirmed Active Therapeutic drug monitoring Confirmed Active [...] Care Nurse Name: Areli Pittman RN Position: [facility] ED RN W/OE and Tasks Member Role: Primary Care Nurse Name: Derek Tomas MD Position: [facility] Resident Member Role: PCP Address: Address: [address] [place] [address] Name: Monique Irwin LPN Position: [facility] RN Member Role: Primary Care Nurse Name: Lianna Epstein RN Position: [facility] RN Member Role: Primary Care Nurse Name: Vicenta Barnett RN Position: [facility] RN Member Role: Primary Care Nurse Name: Farhana Garcia RN Position: [facility] RN Member Role: Primary Care Nurse Name: Ricardo Russell RN Position: [facility] RN Member Role: Primary Care Nurse Name: Gissell Jernigan RN Position: [facility] RN Member Role: Primary Care Nurse Name: Farhana Green RN Position: [facility] RN Member Role: Primary Care Nurse Name: Cydney Delgado RN Position: [facility] RN Member Role: Primary Care Nurse Name: Sharon Mendez RN Position: [facility] RN Member Role: Primary Care Nurse Name: Mookie Christianson RN Position: [facility] RN Member Role: Primary Care Nurse Name: Ally Boyd RN Position: [facility] RN Member Role: Primary Care Nurse Name: Javed Oneill RN Position: [facility] RN Member Role: Primary Care Nurse Name: Lynn Stewart RN Position: [facility] RN Member Role: Primary Care Nurse Name: Amanda Johnson RN Position: [facility] RN Member Role: Primary Care Nurse Name: Jolie Villalobos RN Position: [facility] RN Member Role: Primary Care Nurse Name: Axel Savage RN Position: [facility] RN Member Role: Primary Care Nurse Name: Dirk Driver RN Position: [facility] RN Member Role: Primary Care Nurse Name: Glenys Bee RN Position: [facility] RN Member Role: Primary Care Nurse Name: Praveen Maurer Position: [facility] RN Member Role: Primary Care Nurse Name: Filemon King RN Position: [facility] RN Member Role: Primary Care Nurse Name: Lauren Guevara RN Position: [facility] RN Member Role: Primary Care Nurse Name: Annamaria Quinn RN Position: [facility] RN Member Role: Primary Care Nurse Name: Jada Waller RN Position: [facility] RN Member Role: Primary Care Nurse Name: Lashawn Nagy RN Position: [facility] RN Member Role: Primary Care Nurse Name: Glenys Fox RN Position: [facility] RN Member Role: Primary Care Nurse Care Team Related Persons Name: BEVERLY REYNAGA Address: [place] [address] Name: AISLINN DE LA PAZ Address: home [address] [place] [id number]
--- OUTSIDE RECORDS SUMMARY | 2024-01-21 19:32 | XMS_ITS | Continuity of Care Document ---
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 Name Role Phone Derek Tomas MD Primary Care Physician Encounter [facility] Date(s): 07/03/23 - 07/04/[address] [id number] Encounter Diagnosis Abscess(Final) - 07/03/23 Cellulitis(Final) - 07/03/23 Hidradenitis suppurativa(Final) - 07/03/23 Discharge Disposition: A-Transfer VNA/Home Health Attending Physician: Eufemia PAGAN, Minnie Drew Admitting Physician: Karie Hayward MD Referring Physician: Not on Staff, Referring [...] oral tablet 5 mg, Tablet, By Mouth, 07/04/23 9:00:00 EST Start Date: 07/04/23 Stop Date: 07/04/23 Status: Completed amLODIPine 5 mg oral tablet 5 mg, 1, tablet, By Mouth, Daily, # 30 tablet, Refills 0, Tot. Refills 0, Maintenance, 06/17/23 8:53:00 EST, Route to Pharmacy Electronically, [facility], Partial fill upon patient request if the prescription is for a schedule II opioid... Start Date: 06/17/23 Status: Ordered baclofen 10 mg oral tablet 20 mg, Tablet, By Mouth, 07/04/23 9:00:00 EST Start Date: 07/04/23 Stop Date: 07/04/23 Status: Completed baclofen 20 mg oral tablet 20 mg, 1, tablet, By Mouth, 4 times a day, # 120 tablet, Refills 0, Tot. Refills 0, Maintenance, 06/03/23 13:25:00 EST, Route to Pharmacy Electronically, [facility], 193, cm, 06/01/23 9:54:00 EST, Height, 90.9, kg, 06/01/23 9:54:00 EST,... Start Date: 06/03/23 Status: Ordered duloxetine 30 mg oral enteric coated capsule 1 capsule, By Mouth, Daily, # 30 capsule, 5 Refills, Maintenance, 06/12/23 6:45:00 EST, [facility]/pharmacy #[id number], 193, cm, 06/01/23 9:54:00 EST, Height, 90.9, kg, 06/01/23 9:54:00 EST, Dry Weight Start Date: 06/12/23 Status: Ordered Eliquis 5 mg oral tablet See Instructions, TAKE 1 TABLET BY MOUTH TWICE A DAY, # 60 tablet, 11 Refills, Maintenance, 06/12/23 6:31:00 EST, [id number], 193, cm, 06/01/23 9:54:00 EST, Height, 90.9, kg, 06/01/23 9:54:00 EST, Dry Weight Start Date: 06/12/23 Status: Ordered ferrous sulfate 325 mg oral tablet 1 tablet = 325 mg, By Mouth, Daily, TAKE 1 TABLET BY MOUTH EVERY DAY, # 30 tablet, 0 Refills, Maintenance, 06/12/23 6:46:00 EST, Tablet, [facility]/pharmacy #[id number], [...] 6:46:00 EST, Route to Pharmacy Electronically, [facility]/pharmacy #[id number], Partial fill upon... Start Date: 06/12/23 Status: Ordered gabapentin 600 mg oral tablet 1 tablet = 600 mg, By Mouth, 3 times a day, # 90 tablet, 0 Refills, Maintenance, 06/21/23 12:34:00 EST, Tablet, [facility]/pharmacy #[id number], [...] opioid drug. Start Date: 06/17/23 Status: Ordered MorPHINE Inj 4 mg, Injection, IV Push Slowly, Every 4 hours, PRN for Pain , Severe, Routine, 07/03/23 23:33:00 EST Start Date: 07/03/23 Stop Date: 07/05/23 Status: Discontinued omeprazole 40 mg oral enteric coated capsule 1 capsule, By Mouth, Daily, # 30 capsule, 5 Refills, Maintenance, 08/13/22 15:28:00 EDT, [facility]/pharmacy #[id number], 193.04, cm, 07/23/22 14:07:00 EDT, Height, 99.6, kg, 06/06/22 18:00:00 EST, Dry Weight Start Date: 08/13/22 Status: Ordered tiZANidine 2 mg oral tablet 4 mg, 2, tablet, By Mouth, Every 8 hours, PRN, # 90 tablet, Refills 0, Tot. Refills 0, Maintenance,as needed for muscle spasm, 06/21/23 12:37:00 EST, [facility], [facility] apex Confirmed Active [facility] Care Management, Salesperson Men'S Hats Carmen Elizabeth [phone] Confirmed Active Therapeutic drug monitoring Confirmed Active Peripheral neuropathy Confirmed Active Right spastic hemiparesis Confirmed Active Spasticity Confirmed Active Tobacco dependence Confirmed Active Results Orders for Microbiology Reports Name Date Blood Culture 07/03/23 Blood Culture #2 07/03/23 Microbiology Reports TEST:Blood Culture STATUS:Unauthenticated BODY SITE: SOURCE:Blood COLLECTED DATE/TIME:07/03/23 11:18 AM Blood Culture SPECIMEN DESCRIPTION : BLOOD NO SITE SPECIAL REQUESTS : NONE CULTURE : NO GROWTH AFTER 24 HOURS REPORT STATUS : PRELIMINARY REPORT TEST:Blood Culture, Second Order STATUS:Unauthenticated BODY SITE: SOURCE:Blood COLLECTED DATE/TIME:07/03/23 11:18 AM Blood Culture, Second Order SPECIMEN DESCRIPTION : BLOOD NO SITE SPECIAL REQUESTS : NONE CULTURE : NO GROWTH AFTER 24 HOURS REPORT STATUS : PRELIMINARY REPORT Radiology Reports * Exam Date Time Procedure Performing Provider Status 07/03/23 1:[address] Abd/Pelvis W/ IV Contrast Only Mariana Mondragon; Auth (Verified) Notes: (CT Abd/Pelvis W/ IV Contrast Only) Reason For Exam: buttocks pain;Other: RESULT: CT Abd/Pelvis W/ IV Contrast Only CT Abd/Pelvis W/ IV Contrast Only Hx of Present Illness: sacral wound. increased pain x2 days; Reason: buttocks pain; Clinical Question(s): hidradenitis suppurativa infection - concern for nec fasc on buttock TECHNIQUE: Spiral CT through the abdomen and pelvis with IV contrast formatted in 3 planes. 100 cc of Omnipaque 300 was administered intravenously. This study was performed without oral contrast. Weight-based protocol using automatic tube modulation was used to optimize exposure parameters. CTDIvol Body: 19.10 mGy, DLP Body: 1298 mGy*cm. COMPARISON: CT pelvis 06/15/2023, CT abdomen and pelvis 06/04/2022 FINDINGS: Nurse First Assist View Findings, Lines and Tubes: None. Diaphragm: Normal. Lung bases are not included. Upper aspect of the liver, spleen, and stomach are incompletely included. Liver: Partially visualized. The visualized portion appears normal. Gallbladder: No CT evidence of gallbladder pathology. Bile ducts: No biliary ductal dilation. Spleen: Partially visualized. The visualized portions appear normal Pancreas: Normal. Adrenal glands: Normal. Kidneys and ureters: No hydronephrosis, stones, or suspicious masses. Simple appearing renal cysts and hypodensities that are too small to characterize are noted, requiring no dedicated follow up. Bladder: Mildly thickened bladder wall, may be due to incomplete distention. No surrounding stranding. Reproductive organs: Unremarkable. Stomach, small bowel, and large bowel: Unremarkable stomach. Air-fluid levels within the small bowel. The small bowel is otherwise normal in caliber. Moderate stool within the colon and rectum. Appendix: Normal. Peritoneum and retroperitoneum: No ascites or pneumoperitoneum. No omental or mesenteric lesions. Lymph nodes: Enlarged right iliac lymph nodes measuring up to 1.9 cm. Enlarged right inguinal lymphnodes measuring 2.4 cm. Slightly increasing in size from prior study on 06/15/2023. There is also slight increase in size of lower retroperitoneal nodes, for example paracaval lymph nodes at series 301 image 57 adjacent to the left common iliac, medial to the psoas muscle and [id number] image 70, 76. Blood vessels: Normal. No aneurysm. No evidence of venous thrombosis. Abdominal and pelvic wall: Skin thickening in the right gluteal region measuring 2.1 cm in thickness, previously measured 1.6 cm on 06/15/2023. There is heterogeneous hypoattenuating areas within the thickened skin with moderate surrounding fat stranding. No discrete collection is seen. Bones: No acute abnormality. Left hip fixation hardware is seen. Again seen small defect in the anterior superior endplate of T12, likely representing a limbus vertebra. IMPRESSION: Skin thickening in the right gluteal region, slightly increased in thickness compared to 06/15/2023, containing ill-defined numerous and somewhat contiguous hypoattenuating fluid attenuation areas within the superficial soft soft tissue at this level. Differential can include chronic ongoing infection with phlegmonous changes or regions of fluid related to previous and recurrent infection/inflammation. Recommend direct examination. Right iliac and right inguinal lymphadenopathy, increased in size from prior. This is likely reactive. There is also increase in size of nonenlarged lower retroperitoneal and pelvic lymph nodes. Mildly thickened bladder wall, may be due to incomplete distention. No surrounding stranding. Please correlate with urinalysis if there is concern for infection. Air-fluid level within the small bowel, which can be seen with decreased motility/slow transit or mild enteritis. No regional inflammatory changes. No bowel obstruction. I have personally reviewed the images and I agree with this report. WSN: [id number] Ordering Physician: Farhana Ott Dictated By: Ni Moncada MD Dictated Date/Time: 07/03/23 2:06 pm Reviewed By: Leia Newell MD Signed By: Leia Newell MD Signed Date/Time: 07/03/23 2:11 pm Transcribed By: ZEHRA Transcribed Date/Time: 07/03/23 1:50 pm Vital Signs Most recent to oldest [Reference Range]: 1 2 3 Height 182 cm (07/04/23 2:56 PM) 182 cm (07/04/23 5:46 AM) 182 cm (07/03/23 11:29 PM) Weight 98 kg (07/03/23 11:22 AM) Oxygen Saturation [94-100 %] 98 % (07/04/23 2:56 PM) 100 % (07/04/23 5:46 AM) 98 % (07/03/23 9:00 PM) Pulse Rate [55-90 bpm] 81 bpm (07/04/23 2:56 PM) 63 bpm (07/04/23 5:46 AM) 96 bpm *H* (07/03/23 9:00 PM) Blood Pressure [90-138/55-84 mm Hg] 111/53mm Hg (07/04/23 2:56 PM) 129/75mm Hg (07/04/23 8:54 AM) 130/70mm Hg (07/04/23 5:46 AM) Respiratory Rate [16-30 br/min] 18 br/min (07/04/23 2:56 PM) 16 br/min (07/04/23 9:05 AM) 16 br/min (07/04/23 8:55 AM) Temperature [96.8-100.4 DegF] 98.5 DegF (07/04/23 2:56 PM) 98 DegF (07/04/23 5:46 AM) 98.6 DegF (07/03/23 9:00 PM) Mode of Delivery (Oxygen) Room air (07/04/23 2:56 PM) Room air (07/04/23 5:46 AM) Room air (07/03/23 9:00 PM) Blood pressure sites Arm, right (07/04/23 2:56 PM) Arm, left (07/04/23 5:46 AM) Arm, left (07/03/23 9:00 PM) Temperature Route Oral (07/04/23 2:56 PM) Oral (07/04/23 5:46 AM) Oral (07/03/23 9:00 PM) Dry Weight 89 kg (07/03/23 11:22 AM) Social History Social History Type Response Smoking Status 5-9 cigarettes (betw een 1/4 to 1/2 pack)/day in last 30 days entered on: 05/16/22 Sex Admission evaluation note * Beverly PAGAN, Amador Lopez: PERFORM, MODIFY, MODIFY, MODIFY, MODIFY Event Display: Admission Note Authored Date: [id number] Patient: ??ERNESTO MCQUEEN ? Age:??38 Years?Sex:??Male?:??1985?? Chief Complaint sacral wound pain History of Present Illness 38-year-old man with history of left ICA stroke with residual right sided spastic hemiparesis (on baclofen) and dysarthria, mural thrombus of cardiac apex on Eliquis, severe hidradenitis suppurative s/p excision of left buttock plastic surgery, follows with dermatology outpatient, iron deficiency anemia, chronic pain syndrome on oxycodone, hypertension and depression who presents with severe buttock pain.? Patient presents with severe buttock pain and drainage not responding to oxycodone 10 mg every 6 hours. Patient has been admitted five times in the last several weeks for buttock drainage and difficult to control pain. Seen by surgery on 06/14 who reported I&D??not advised at??this time??for management of hidradenitis. They recommended following up with outpatient [facility]??plastic surgery??for management and to consider??antibiotic??therapy??as well as consider??referral to chronic pain management center. He was previously using fentanyl patch without relief. He was managed with??oxycodone 10mg every 6 hours. He was not treated with antibiotics during that admission.? On arrival he was vitally stable. CBC unremarkable with a stable hemoglobin of 7.5 and stable??platelet count of 889. BMP, LFTs, and lactate normal. On physical exam patient was found to have buttocks with many cystic lesions draining pus??with surrounding erythema, warmth and tenderness to palpation, suspicious for cellulitis. Review of Systems ROS per HPI Physical Exam Vitals & Measurements T:??98.4?F?? TMIN:??98.4?F?? TMAX:??98.7?F?? HR:??87??(Peripheral)?? RR:??18?? BP:??130/65?? SpO2:??99%?? WT:??98??kg?? General:??No acute distress. Well developed HEENT:??Moist mucus membranes. Anicteric sclera Respiratory: Lungs CTA. Not dyspneic Cardiovascular:??Normal rate, regular rhythm, no murmurs?? GI/Abdomen:??Normal active bowel sounds, soft, non-tender, non-distended Extremities:??No edema. No clubbing or cyanosis. Skin:??buttock is erythematous, tender, open blisters Neurologic:??Alert & Oriented. dysarthric. spastic hemiparesis. Psychiatric:??Mood and affect appropriate Assessment/Plan Assessment:??38-year-old man with history of left ICA stroke with residual right sided spastic hemiparesis (on baclofen) and dysarthria, mural thrombus of cardiac apex on Eliquis, severe hidradenitissuppurative s/p excision of left buttock plastic surgery, follows with dermatology outpatient, irondeficiency anemia, chronic pain syndrome on oxycodone, hypertension, depression, and multiple recent admissions for hidradenitis suppurativa with difficult to control pain, re-presents with severe buttock pain and is re-admitted for hidradenitis suppurativa. ?? Severe buttock pain Hidradenitis Suppurativa Numerous recent admissions for buttock pain and drainage Re-presents with severe buttock pain and drainage On exam he has purulent buttock cysts and erythema though no SIRS physiology. Patient received 1 dose of vancomycin in ED. He is on oxycodone 10 mg every 6 hours PRN at home with limited relief. He received 8 mg IV morphine in ED Previously saw surgery who recommended following up with [facility] plastic surgery; he reports being scheduled to see them in next month ?? Plan: -Patient is status post 1 dose of vancomycin in ED.??Given absence of fever or leukocytosis will hold off on further antibiotics for suspected chronic??hidradenitis suppurativa pain??as opposed to cellulitis. Defer continuation of antibiotics to general surgery. -cemetery keeper consulted -General surgery consult in AM -IV morphine 4 mg every 4 hours PRN -Tylenol -Continue duloxetine ?? Chronic stable issues Mural thrombus of cardiac apex- Continue eliquis HTN- Continue amlodipine ?GERD- Continue PPI Hx of L ICA stroke with right sided residual hemiparesis- Continue baclofen and tizanidine Peripheral neuropathy- Continue??gabapentin ?? Quality measures DVT prophylaxis-??Eliquis Diet- Cardiac Code- FULL ?? Patient discussed with??attending physician??Dr. Dang ?? Amador Paul MD?? Gastroenterology Fellow - PGY 5 ?? Problem List/Past Medical History Ongoing [facility] Care Management, Salesperson Men'S Hats Carmen Elizabeth [phone] Chronic ischemic left ICA stroke Chronic pain [...] Tablet, 650 mg, By Mouth, Every 4 hours, PRN Docusate Sodium Capsule, 100 mg= 1 capsule, By Mouth, 2 times a day, PRN Melatonin Tablet, 3 mg, By Mouth, Daily at bedtime, PRN MiraLax Powder, 17 Gm= 1 pack/packet, By Mouth, Daily, PRN NaCL 0.9% Flush, 3 mL, IV Push, Every 8 hours NaCL 0.9% Flush, 3 mL, IV Push, Every 8 hours, PRN Robitussin DM Liquid, 10 mL, By Mouth, Every 4 hours, PRN Senna Tablet, 8.6 mg= 1 tablet, By Mouth, 2 times a day, PRN Simethicone Tablet, 80 mg, Chew, 3 times a day, PRN Home 3 in 1 commode, See Instructions acetaminophen 325 mg oral tablet, 975 mg, By Mouth, 3 times a day acitretin 10 mg oral capsule Air Mattress, See Instructions amLODIPine 5 mg oral tablet, 5 mg= 1 tablet, By Mouth, Daily baclofen 20 mg oral tablet, 20 mg= 1 tablet, By Mouth, 4 times a day CHUX, See Instructions, 11 refills Diapers, adult extra Large, See Instructions, 11 refills duloxetine 30 mg oral enteric coated capsule, 1 capsule, By Mouth, Daily, 5 refills Eliquis 5 mg oral tablet, See Instructions ferrous sulfate 325 mg oral tablet, 325 mg= 1 tablet, By Mouth, Daily folic acid 1 mg oral tablet, 1 mg= 1 tablet, By Mouth, Daily gabapentin 600 mg oral tablet, 600 mg= 1 tablet, By Mouth, 3 times a day Hospital bed, See Instructions hydroxyurea 500 mg oral capsule, 500 mg, By Mouth, Daily large gauze, See Instructions omeprazole 40 mg oral enteric coated capsule, 1 capsule, By Mouth, Daily, 5 refills oxyCODONE 10 mg oral tablet, 10 mg= 1 tablet, By Mouth, Every 6 hours, PRN Right ankle & foot orthosis, See Instructions, 1 refills rollator walker, See Instructions tiZANidine 2 mg oral tablet, 4 mg= 2 tablet, By Mouth, Every 8 hours, PRN transfer tub bench, See Instructions walker with platform attached, See Instructions Allergies NKA Social History Alcohol Use: Current. Other: 10 drinks per week. Electronic Cigarette/Vaping Electronic Cigarette Use: Never. Substance Abuse Use: Current. Type: Marijuana. Tobacco Use: 5-9 cigarettes (between 1/4 to 1/2 pack)/day in last 30 days. Family History Asthma: Mother and Brother. Lab Results Test Name Test Result Date/Time WBC 10.9 k/mm3 07/03/2023 11:18 EST Hgb 7.5 Gm/dL 07/03/2023 11:18 EST Platelet Count 889 k/mm3 07/03/2023 11:18 EST Sodium 138 mmol/L 07/03/2023 11:18 EST Potassium 5.1 mmol/L 07/03/2023 11:18 EST Glucose Level 90 mg/dL 07/03/2023 11:18 EST BUN 13 mg/dL 07/03/2023 11:18 EST Creatinine-Blood 0.9 mg/dL 07/03/2023 11:18 EST Estimated GFR Creatinine 113 ML/MIN/1.73 M2 07/03/2023 11:18 EST Alkaline Phosphatase 123 units/L 07/03/2023 11:18 EST AST (SGOT) 14 units/L 07/03/2023 11:18 EST ALT (SGPT) 8 units/L 07/03/2023 11:18 EST Hospital Progress note * Mk Denson RN: PERFORM, SIGN, VERIFY Event Display: Progress Note Hospital Authored Date: [id number] Patient: ERNESTO MCQUEEN Age: 38 years Sex: Male : 1985 Associated Diagnoses: None Author: Mk Denson RN Findings Problem Related to Alteration in Integumentary : Alteration in Integumentary/new 07/04/2023 16:00 EST Alteration in Integumentary Related to Other: Hidradenitits supurativa Goals & Outcomes, Integumentary Pt will maintain intact skin integrity Interventions, Integumentary Cleanse all wounds with Normal Saline, Keep linen clean, dry and wrinkle free, Keep skin clean & dry, Minimize friction, shear and moisture, Resolved problem, Interventions no longer in effect Goals/Interventions, Integumentary Yes Integumentary, Problem Start 07/04/2023 16:21 Reviewed plan with, Integumentary Patient Patient Progression, Integumentary Resolved problem Integumentary, Problem Resolved 07/04/2023 16:21 . Evaluation I- SEE CIS E-Patient alert and orieted x4, patient with expressive aphasia, able to communicate okay with thisnurse. Patient complained of 10/10 pain in the R side of the bottom, medicated with medium effect. ABD pads replaced, old dressing changed. Patient did not show any signs and symptoms of distress, bed low and locked, safety maintained during shift. d/c instructions given to patient's mother, ambulance booked and picked up patient. IV access removed, tip intact. . Discharge Information Case Management Discharge Plan : Case Management Discharge Plan Data 07/04/2023 13:02 EST Discharge Level of Care at Discharge Homehealth/VNA Discharge VNA/Hospice/Home Care [facility] [address] [place] [phone] or [phone] Discharge Transportation Arranged [facility] [address] [facility] Discharge Arranged Transport Date/Time 07/04/2023 14:00 Mode of Transportation Arranged Ambulance Name of Agency #1 [facility] [phone] or [phone] Agency Head Of Product #1 Rosa Mena, clinical intake, [facility] Service Categories #1 Long Term, Wound Care Service Comments #1 [facility], your current provider will resume your home mcc visits for wound care/teaching upon discharge. Your mother/alternate health care proxy Cynthia Diaz is aware & agrees with this plan. She will receive you home today. Note * Eufemia PAGAN, Minnie Drew: PERFORM Event Display: Discharge/Transfer Note Hospital Authored Date: [id number] Patient: ??ERNESTO MCQUEEN ? Age:??38 Years?Sex:??Male?:??1985?? Patient Information Discharge Location: S64 Primary Care Physician: Derek Tomas MD Admit Date/Time: 07/03/23 13:51 Discharge Disposition Discharge Disposition: ?? Discharge Diagnosis Abscess (L02.91) Cellulitis (L03.90) Hidradenitis suppurativa (L73.2) ?? _ Discharge Medications Acetaminophen (acetaminophen 325 [...] 30 mg oral enteric coated capsule)?1?capsule?By Mouth?Daily Ferrous Sulfate (ferrous sulfate 325 mg oral tablet)?1?tab(s)?325?Milligram?By Mouth?Daily?TAKE 1 TABLET BY MOUTH EVERY DAY Folic Acid (folic acid 1 mg oral tablet)?1?Milligram?1?tablet?By Mouth?Daily?TAKE 1 TABLET BY MOUTH EVERY DAY THAT YOU ARE NOT TAKING METHOTREXATE Gabapentin (gabapentin 600 mg oral tablet)?1?tab(s)?600?Milligram?By Mouth?3 times a day?for 30?Days Hydroxyurea (hydroxyurea 500 mg oral capsule)?500?Milligram?By Mouth?Daily Omeprazole (omeprazole 40 mg oral enteric coated capsule)?1?capsule?By Mouth?Daily Tizanidine (tiZANidine 2 mg oral tablet)?4?Milligram?2?tablet?By Mouth?Every 8 hours?as needed?as needed for muscle spasm ? Quality Measures Tobacco Use Treatment:? Allergies Allergies ?(Active and Proposed Allergies Only) NKA? (Severity: Unknown severity, Onset: Unknown) ? Hospital Course 38 y/o male with h/o left ICA stroke with residual right sided spastic hemiparesis (on baclofen) and dysarthria, mural thrombus of cardiac apex on Eliquis, severe hidradenitis suppurative s/p excision of left buttock plastic surgery, follows with dermatology outpatient, iron deficiency anemia, chronic pain syndrome on oxycodone, hypertension, depression, and multiple recent admissions for hidradenitis suppurativa with difficult to control pain, re- presents with severe buttock pain and is re-admitted for hidradenitis suppurativa. ?? Abscess (L02.91):??. Cellulitis (L03.90):??. Hidradenitis suppurativa (L73.2):??. ?? Severe buttock pain ?? Numerous recent admissions for buttock pain and drainage Re-presents with severe buttock pain and drainage ?? He was evaluated by surgery during is most recent hospitalization (on 06/14/23) Surgery recommended to see plastic surgery Wound care recommended wound care. I saw the imaging posted by wound consult on 06/14/23; his wound seems same, not worsening ?? Wants to go home this morning with pain meds ?? He has appointment with [facility] plastic surgery next Month ?? He is being discharged home with services in a stable condition ?? Plan: Will continue wound care as previously advised ?? Recommendations: Bilateral Buttocks: Cleanse with Vashe solution. Allow to dry. Apply Aquacel AG over open areas (may treat right lateral buttock as one large wound). Cover with Mepilex dressing or DSD. cover with Tegaderm dressings to protect from incontinence. Repeat every other day and PRN for soilage ? Follow up with [facility] plastic surgery ?? Advised him to call and see whether he can get an earlier appointment ? Will continue pain med Wound care as per prior recommendation ?? -Continue duloxetine ?? Chronic stable issues Mural thrombus of cardiac apex- Continue Eliquis HTN- Continue amlodipine ?? Hx of L ICA stroke with right sided residual hemiparesis- Continue baclofen and tizanidine Peripheral neuropathy- Continue gabapentin ?? DVT prophylaxis- Eliquis ?? Diet- Cardiac ?? Code- FULL ? Objective Assessment and Plan ? Vital Signs?? Temperature: 98 DegF (07/04/23 05:46:00) Temperature Route: Oral (07/04/23 05:46:00) Pulse Rate: 63 bpm (07/04/23 05:46:00) Respiratory Rate: 16 br/min (07/04/23 09:05:00) Systolic Blood Pressure: 129 mm Hg (07/04/23 08:54:00) Diastolic Blood Pressure: 75 mm Hg (07/04/23 08:54:00) Blood pressure sites: Arm, left (07/04/23 05:46:00) Mean Arterial Pressure: 90 mm Hg (07/04/23 05:46:00) Pulse Pressure: 60 mm Hg (07/04/23 05:46:00) Oxygen Saturation: 100 % (07/04/23 05:46:00) Mode of Delivery (Oxygen): Room air (07/04/23 05:46:00) Early Warning Score: 0 (07/04/23 09:07:49) ? . Physical Exam Awake, alert, oriented Lungs: Clear to auscultation bilateral, no wheezing no rales Heart: Regular rate and rhythm, no murmur, no rub or gallop Abdomen: Soft, nontender, nondistended; Bowel sounds present Extremity: No edema cyanosis clubbing Skin/buttock: chronic wound, similar compared with prior imaging, no active infection Neurological: No focal deficit Psychiatric: Normal mood and affect Pending Results Blood Culture ordered on 07/03/2023 Blood Culture #2 ordered on 07/03/2023 Lactic Acid Level ordered on 07/03/2023 Follow-Up Appointments Added Follow Up ?Time Frame ?Comments Jacobo-Derek Webb MD?1 week Home Health Face to Face *Denotes mandatory burton ?? *I certify that this patient is under my care and that I or an allowed non- physician working with me had a face to face encounter with the patient on this date:??07/04/2023 11:15 ?? *The encounter with the patient was in whole, or in part, for the following medical condition, which is the primary diagnosis(es) for home health care:??Abscess (L02.91) Cellulitis (L03.90) Hidradenitis suppurativa (L73.2) ? *Select the indications for the discipline/s that are being arranged for this patient. Nursing (select all that apply): [_] None [x_] Medication management (reconciliation, teaching)?? [_x] Chronic disease management?? [_] Wound care and treatment?? [x_] Home safety evaluation [_] Administer SQ/IM/IV medications?? [_] Cath care?? [_] Drain care?? [_] Trach or GT care?? Other _ Occupation Therapy (select all that apply): [_] None [_] ADL Management [_] Fall prevention training [_] Energy conservation [_] Cognitive training Other _ Physical Therapy (select all that apply): [_] None [_x] Functional mobility training [x_] Home exercise program to strengthen [x_] Increase ROM?? [x_] Falls prevention training [_x] Home maintenance program for chronic disease Other _ Speech Therapy (select all that apply): [_] None [_] Swallow evaluation and training [_] Speech and language training [_] Cognitive training to process, organize, and/or recall information Other _ ? *Homebound due to (select all that apply): [x_] Inability to leave home without assistance/supervision [_x] Inability to ambulate without assistance [x_] Pain [_] Decreased strength and endurance [_] Unsteady gait [_] Severe SOB and fatigue [_] Impaired transfers [_] Inability to negotiate stairs [_] Limited weight bearing [_] Mental status change? *Physician Signature: _ ?? *By signing this, I certify that I have personally evaluated the patient and agree with the findings and recommendations as documented above. ? [email or web address] Results Discharge Labs BLOOD COUNT & DIFF WBC 13.5 k/mm3 (High)?? 07/04/2023 02:10 RBC 3.23 m/mm3 (Low)?? 07/04/2023 02:10 Hgb 7.2 Gm/dL (Low)?? 07/04/2023 02:10 Hct 24.9 % (Low)?? 07/04/2023 02:10 MCV 77.1 femtoliters (Low)?? 07/04/2023 02:10 MCH 22.3 pg (Low)?? 07/04/2023 02:10 MCHC 28.9 g/dL (Low)?? 07/04/2023 02:10 Platelet Count 842 k/mm3 (High)?? 07/04/2023 02:10 RDW-SD 49.8 femtoliters (High)?? 07/04/2023 02:10 MPV 8.6 femtoliters (Low)?? 07/04/2023 02:10 Nucleated RBC (Automated) 0.0 #/100 WBC'S ()?? 07/04/2023 02:10 Abs. NRBC 0.0 k/mm3 ()?? 07/04/2023 02:10 Abs. Neut 8.1 k/mm3 (High)?? 07/03/2023 11:18 Abs. Lymph 1.8 k/mm3 ()?? 07/03/2023 11:18 Abs. Donley 0.9 k/mm3 ()?? 07/03/2023 11:18 Abs. Eo 0.1 k/mm3 ()?? 07/03/2023 11:18 Abs. Baso 0.0 k/mm3 ()?? 07/03/2023 11:18 Neut % 74.3 % ()?? 07/03/2023 11:18 Lymph % 16.6 % ()?? 07/03/2023 11:18 Donley % 7.8 % ()?? 07/03/2023 11:18 Eos % 0.6 % ()?? 07/03/2023 11:18 Baso % 0.2 % ()?? 07/03/2023 11:18 Imm Gran 0.5 % ()?? 07/03/2023 11:18 Abs. Imm Gran 0.1 k/mm3 ()?? 07/03/2023 11:18 ?? CHEM GENERAL Sodium 136 mmol/L ()?? 07/04/2023 02:10 Potassium 4.6 mmol/L ()?? 07/04/2023 02:10 Chloride 102 mmol/L ()?? 07/04/2023 02:10 Bicarbonate Level 24 mmol/L ()?? 07/04/2023 02:10 Anion Gap 10 ()?? 07/04/2023 02:10 Glucose Level 90 mg/dL ()?? 07/03/2023 11:18 BUN 9 mg/dL ()?? 07/04/2023 02:10 Creatinine-Blood 0.8 mg/dL ()?? 07/04/2023 02:10 Estimated GFR Creatinine 116 ML/MIN/1.73 M2 ()?? 07/04/2023 02:10 Calcium 8.5 mg/dL (Low)?? 07/03/2023 11:18 Protein, Total 7.8 Gm/dL ()?? 07/03/2023 11:18 Albumin 3.1 Gm/dL (Low)?? 07/03/2023 11:18 AG Ratio 0.7 ()?? 07/03/2023 11:18 Alkaline Phosphatase 123 units/L ()?? 07/03/2023 11:18 AST (SGOT) 14 units/L ()?? 07/03/2023 11:18 ALT (SGPT) 8 units/L ()?? 07/03/2023 11:18 Bilirubin, Total 0.2 mg/dL ()?? 07/03/2023 11:18 Lactate 1.5 mmol/L ()?? 07/03/2023 11:18 ?? URINE OTHER Est Creatinine Clearance 137.34 mL/min ()?? 07/04/2023 03:24 ? 35 minutes spent on discharge * Carmen Lal RN, V: VERIFY, PERFORM, SIGN Event Display: Case Management Discharge Plan Authored Date: Patient: ERNESTO MCQUEEN Age: 38 years Sex: Male : 1985 Associated Diagnoses: None Author: Carmen Lal RN, V Discharge Plan Case Management Discharge Plan : Case Management Discharge Plan Data 07/04/2023 13:02 EST Discharge Level of Care at Discharge Homehealth/VNA Discharge VNA/Hospice/Home Care [facility] [address] [place] [phone] or [phone] Discharge Transportation Arranged [facility] [address] [place] Discharge Arranged Transport Date/Time 07/04/2023 14:00 Mode of Transportation Arranged Ambulance Name of Agency #1 [facility] [phone] or [phone] Agency Head Of Product #1 Rosa Mena, clinical intake, [facility] Service Categories #1 Long Term, Wound Care Service Comments #1 [facility], your current provider will resume your home mcc visits for wound care/teaching upon discharge. Your mother/alternate health care proxy Cynthia Diaz is aware & agrees with this plan. She will receive you home today. * Jarett BUSTAMANTE, Mk: PERFORM Event Display: Patient Education/Instruction Authored Date: [id number] Inpatient Adult Discharge Instructions. [address] [address] Name: ERNESTO MCQUEEN : 1985?? Visit: 07/03/2023 13:51?? Current Date: 07/04/2023 13:13 ?? Account: [id number]?? Inpatient Adult Discharge Instructions We would like [...] and their families. Surveys are administered by [employer] ?? If further treatment with your primary care physician or another doctor is recommended, it is important for you to keep the appointment. Call your primary care physician or return to the Emergency Department immediately if your condition worsens, fails to improve, or new symptoms develop. If you need to find a doctor, you can call [facility] for a referral at [phone] or toll free at [phone] or log in to [email or web address].. ?? [facility], in keeping with [facility] guidance, no longer requires face masks [...] a health care boyd of your choosing. [employer] is a website that allows you to securely view your medical information including your hospital discharge summary, office visit summaries, medications and follow-up visits. You can also request appointments, renew medications, and request access to your medical information using a health care boyd of your choosing, or just ask a question. You can enroll at [email or web address] or register during your next office visit. You have been discharged from [facility], Patient Care Unit: S64??. If you have any questions regarding these instructions, including results of studies pending, afteryou leave, please call us and we will be happy to assist you 03/12. [facility] Your Care Team Attending Physician Minnie Fall MD?? Consulting Providers Minnie Fall MD?? Discharging Providers Minnie Fall MD Reason for Your Visit sacral wound pain?? Tests Performed Below is a partial list of the tests performed during your hospitalization. You may have had other tests and procedures not included in this list. Please discuss all test results with your provider. BUN CBC CBC w/ Differential Comprehensive Metabolic Panel Creatinine Lactate Level Lytes CT Abd/Pelvis W/ IV Contrast Only Blood Culture?? Blood Culture #2?? Lactic Acid Level (Lactate Level)?? Primary Care Provider Derek Tomas MD? Discharge Vitals Temperature: 98 DegF Height: 182 cm Pulse Rate: 63 bpm Weight: 98 kg Respiratory Rate: 16 br/min ?? Systolic Blood Pressure: 129 mm Hg ?? Diastolic Blood Pressure: 75 mm Hg ?? Oxygen Saturation: 100 % ?? Studies Pending All studies ordered during this hospital stay have been completed unless listed below. Please discuss all pending results with your provider listed above in these instructions. ?? Blood Culture?? Blood Culture #2?? Lactic Acid Level (Lactate Level)?? What to do next Instructions From Your Doctor ?? Orders? 07/04/23 11:17:00 EST?? Prescriptions??, ??07/04/23 11:17:00 EST?? You Need to Schedule the Following Appointments Follow Up with??Derek Tomas MD When:??Within 1 week Where: [address] [place] [address]- Discharge Medications ERNESTO MCQUEEN :1985 Visit Date:07/03/2023 Medications: Please continue your medications until treatment is completed or stopped by your provider. Medications not listed below should be discontinued. Discuss any questions related to medications with your provider. What How Much When Instructions Next Dose Unchanged Acetaminophen (acetaminophen 325 mg oral tablet) 975 Milligram Oral 3 times a day Can use over the counter Tylenol or substitute ?? 07/04/22 4pm Unchanged Acitretin (acitretin 10 mg oral capsule) TAKE 1 ??1 CAPSULE DAILY ?? not given at [facility], resume home schedule Unchanged Amlodipine (amLODIPine 5 mg oral tablet) 1 tab(s) Oral Daily 07/05/23 9am Unchanged apixaban (Eliquis 5 mg oral tablet) See instructions TAKE 1 TABLET BY MOUTH TWICE A DAY ?? 9pm Unchanged Baclofen (baclofen 20 mg oral tablet) 1 tab(s) Oral 4 times a day 07/04/23 5pm Unchanged Duloxetine (duloxetine 30 mg oral enteric coated capsule) 1 capsule Oral Daily 07/05/23 9am Unchanged Ferrous Sulfate (ferrous sulfate 325 mg oral tablet) 1 tab(s) Oral Daily TAKE 1 TABLET BY MOUTH EVERY DAY ?? 07/05/23 9am Unchanged Folic Acid (folic acid 1 mg oral tablet) 1 tab(s) Oral Daily TAKE 1 TABLET BY MOUTH EVERY DAY THAT YOU ARE NOT TAKING METHOTREXATE ?? 07/05/23 9am Unchanged Gabapentin (gabapentin 600 mg oral tablet) 1 tab(s) Oral 3 times a day Duration: 30 Days 07/04/23 3pm Unchanged Hydroxyurea (hydroxyurea 500 mg oral capsule) 500 Milligram Oral Daily not given at [facility], resume home schedule Unchanged Omeprazole (omeprazole 40 mg oral enteric coated capsule) 1 capsule Oral Daily not given at [facility], resume home schedule Unchanged Tizanidine (tiZANidine 2 mg oral tablet) 2 tab(s) Oral Every 8 hours as needed for as needed for muscle spasm 07/04/23 8pm ?? What How Much When Why Comments Stop Taking Durable Medical Equipment (3 in 1 commode) See instructions Stroke Difficulty walking use as needed to prevent fall. Diagnosis: Stroke, Impaired Mobility. ICD10 I63.9, ICDR26.2. KRISSY 99 for PCP Jacobo Fuchs ?? Fax to Steve ?? Stop Taking Durable Medical Equipment (Air Mattress) See instructions History of stroke Right sided weakness Spasticity due to old stroke Hydradenitis Pressure ulcer of coccygeal region Use daily to prevent progression of pressure ulcer. Z86.73, L89.159. Fax to [facility] ?? Stop Taking Durable Medical Equipment (CHUX) See instructions Functional incontinence 2 per day Functional Incontinence R39.81 ?? Stop Taking Durable Medical Equipment (Diapers, adult extra Large) See instructions Hidradenitis suppurativa Functional incontinence 2 per day Chronic drainage, bleeding of buttocks lesions due to severe hidradenitis L73.2 Functional Incontinence R39.81 ?? Please fax to Steve ?? Stop Taking Durable Medical Equipment (Hospital bed) See instructions History of stroke Right sided weakness Spasticity due to old stroke Hydradenitis Use as needed daily ?? Stop Taking Durable Medical Equipment (large gauze) See instructions L73.2 HS ?? Stop Taking Durable Medical Equipment (Right ankle & foot orthosis) See instructions Weakness of right leg Gait instability Instability of ankle Please dispense 1 right ankle and foot othosis Dx: R29.898, R26.81, M25.373 Length of need: 99 months Number to fax to: [phone] ?? Stop Taking Durable Medical Equipment (rollator walker) See instructions Spasticity due to old stroke Right sided weakness History of stroke use daily as needed ?? Stop Taking Durable Medical Equipment (transfer tub bench) See instructions Stroke Difficulty walking use as needed to prevent fall. Diagnosis: Stroke, Impaired Mobility. ICD10 I63.9, ICDR26.2. KRISSY 99 for PCP Jacobo Fuchs ?? Fax to Steve ?? Stop Taking Durable Medical Equipment (walker with platform attached) See instructions History of stroke Right sided weakness Spasticity due to old stroke Please dispense 1 (one) walker with attached platform ?? Ht: 187.6cm Wt: 101.4kg Dx: History of stroke - Z86.73, Right-sided weakness - R53.1,Spasticity due to old stroke - I69.398 ?? Length of need: 99months ?? Stop Taking Oxycodone (oxyCODONE 10 mg oral tablet) 1 tab(s) Oral Every 6 hours as needed for as needed for pain Duration: 30 Days Prescription Given During Visit No new medications prescribed at time of discharge.?? Laboratory Results Below is a partial list of the most recent Laboratory test results done prior to this discharge. You may have had other tests and procedures not included in this list. Please discuss all test resultswith your provider. Est Creatinine Clearance - 137.34 mL/min (07/04/2023) BUN (07/04/2023) ???BUN - 9 mg/dL CBC (07/04/2023) ???WBC - 13.5 k/mm3???RBC - 3.23 m/mm3???Hgb - 7.2 Gm/dL???Hct - 24.9 %???MCV - 77.1 femtoliters???MCH - 22.3 pg???MCHC - 28.9 g/dL???Platelet Count - 842 k/mm3???RDW-SD - 49.8 femtoliters???MPV - 8.6 femtoliters???Nucleated RBC (Automated) - 0.0 #/100 WBC'S???Abs. NRBC - 0.0 k/mm3 CBC w/ Differential (07/03/2023) ???WBC - 10.9 k/mm3???RBC - 3.33 m/mm3???Hgb - 7.5 Gm/dL???Hct - 26.2 %???MCV - 78.7 femtoliters???MCH - 22.5 pg???MCHC - 28.6 g/dL???Platelet Count - 889 k/mm3???RDW-SD - 52.6 femtoliters???MPV - 8.6 femtoliters???Nucleated RBC (Automated) - 0.0 #/100 WBC'S???Abs. NRBC - 0.0 k/mm3???Abs. Neut - 8.1 k/mm3???Abs. Lymph - 1.8 k/mm3???Abs. Donley - 0.9 k/mm3???Abs. Eo - 0.1 k/mm3???Abs. Baso - 0.0 k/mm3???Neut % - 74.3 %???Lymph % - 16.6 %???Donley % - 7.8 %???Eos % - 0.6 %???Baso % - 0.2 %???Imm Gran- 0.5 %???Abs. Imm Gran - 0.1 k/mm3 Comprehensive Metabolic Panel (07/03/2023) ???Sodium - 138 mmol/L???Potassium - 5.1 mmol/L???Chloride - 102 mmol/L???Bicarbonate Level - 24 mmol/L???Anion Gap - 12???Glucose Level - 90 mg/dL???BUN - 13 mg/dL???Creatinine-Blood - 0.9 mg/dL???Estimated GFR Creatinine - 113 ML/MIN/1.73 M2???Calcium - 8.5 mg/dL???Protein, Total - 7.8 Gm/dL???Alb umin - 3.1 Gm/dL???AG Ratio - 0.7???Alkaline Phosphatase - 123 units/L???AST (SGOT) - 14 units/L???ALT (SGPT) - 8 units/L???Bilirubin, Total - 0.2 mg/dL Creatinine (07/04/2023) ???Creatinine-Blood - 0.8 mg/dL???Estimated GFR Creatinine - 116 ML/MIN/1.73 M2 Lactate Level (07/03/2023) ???Lactate - 1.5 mmol/L Lytes (07/04/2023) ???Sodium - 136 mmol/L???Potassium - 4.6 mmol/L???Chloride - 102 mmol/L???Bicarbonate Level - 24 mmol/L???Anion Gap - 10 Immunizations This Visit Not Given Vaccine Commentsinfluenza virus vaccine, inactivated Parent Or Guardian Refuses Allergies (NKA means No Known Allergies) NKA Problems Active Problems??(18) [facility], 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 Chronic ischemic left ICA stroke?? Chronic pain?? [...] Belongings I fully understand and agree that [facility] accepts no responsibility for all my [...] patient Date for Pt to Sign Valuables/Belongings: 07/03/23 23:36:00 ?? Other Discharge Information ? Case Management Discharge Plan?? Discharge Plan?? Discharge Agency Information?? Discharge Level of Care at Discharge: Homehealth/VNA Name of Agency #1: [facility] [phone] or [phone] Discharge Transportation Arranged: [facility] [address] [facility] ??[phone] Agency Head Of Product #1: Rosa Mena, clinical intake, [facility] Mode of Transportation Arranged: Ambulance Service Categories #1: Long Term, Wound Care Discharge Arranged Transport Date/Time: 07/04/23 14:00:00 Service Comments #1: [facility], your current provider will resume your home mcc visits for wound care/teaching upon discharge. Your mother/alternate health care proxy Cynthia Diaz is aware & agrees with this plan. She will receive you home today. Discharge VNA/Hospice/Home Care: [facility] [address] [place] [phone] or [phone] ? Pulmonary Rehab Status?? Pulmonary Rehab Discharge [...] are strongly encouraged to quit. Please call [facility] at [phone] or [phone] or log in to [email or web address] for referrals to smoking cessation programs. ?? 132 Suicide & Crisis Lifeline is available 03/12 if you or someone you know needs to find a reason to keep living. By calling 333 you'll be connected to a skilled, trained counselor at a crisis center in your area. INPATIENT DISCHARGE INSTRUCTIONS SIGNATURE PAGE ERNESTO MCQUEEN Location:[facility] Registration Date and Time:07/03/2023 13:51 EST Primary Care Physician: Derek Tomas MD, Attending Physician: Minnie Fall MD, ERNESTO SALMERON, have received the above patient education materials/instructions and have verbalized understanding. If ambulance or transport services are being used I further acknowledge being given a choice of service. ?? If you need to contact me, please call me at this number: . Patient/Public Aid Eligibility Assistant Name: Patient/Public Aid Eligibility Assistant Signature: Relationship to Patient: Witness Name/Signature: Date: Patient Care team information Care Team Personnel Name: Areli Pittman RN Position: S ED RN W/OE and Tasks Member Role: Primary Care Nurse Name: Derek Tomas MD Position: S Resident Member Role: PCP Address: Address: [address] [place] [address] Name: Farhana Green RN Position: S RN Member Role: Primary Care Nurse Name: Ally Boyd RN Position: S RN Member Role: Primary Care Nurse Name: Lynn Stewart RN Position: S RN Member Role: Primary Care Nurse Name: Jolie Villalobos RN Position: [facility] RN Member Role: Primary Care Nurse Name: Axel Savage RN Position: [facility] RN Member Role: Primary Care Nurse Name: Filemon King RN Position: [facility] RN Member Role: Primary Care Nurse Name: Lauren Guevara RN Position: [facility] RN Member Role: Primary Care Nurse Name: Lashawn Nagy RN Position: [facility] RN Member Role: Primary Care Nurse Name: Glenys Fox RN Position: [facility] RN Member Role: Primary Care Nurse Care Team Related Persons Name: JUHIKAMILLE WHEELERA Address: [place] [address] Name: AISLINN DE LA PAZ Address: home [address] [place] [address]
--- OUTSIDE RECORDS SUMMARY | 2024-01-21 19:33 | XMS_ITS | Continuity of Care Document ---
Author Organization [facility] ter Address [address] [place] [id number]- Care Team Providers Care Bone Grinder Name Role Phone Derek Tomas MD Primary Care Physician Encounter [facility] Date(s): 12/25/23 - 12/25/[address] [address]- Discharge Disposition: A-Error Chart/Home (ED Only) Attending Physician: Not on Staff, Attending MD [...] Acute 05/12/2415:40:00 EST, 10/25/23 15:40:00 EDT, Tablet, [facility]/pharmacy #[id number], Partial fill upon patient request if the prescription is for a schedule II opioid drug... Start Date: 10/25/23 Stop Date: 05/12/24 Status: Ordered amLODIPine 5 mg oral tablet 5 mg, 1, tablet, By Mouth, Daily, # 30 tablet, Refills 0, Tot. Refills 0, Maintenance, 06/17/23 8:53:00 EST, Route to Pharmacy Electronically, [facility], Partial fill upon patient request if the prescription is for a schedule II opioid... Start Date: 06/17/23 Status: Ordered ascorbic acid 500 mg oral tablet 1 tablet = 500 mg, By Mouth, Daily, # 30 tablet, 0 Refills, Maintenance, 09/06/23 12:42:00 EDT, Tablet, [facility]/pharmacy #[id number], Partial fill upon patient request if the prescription is for a schedule II opioid drug., 193, cm, 09/05/23 19:48:00 EDT, Height... Start Date: 09/06/23 Status: Ordered baclofen 20 mg oral tablet 20 mg, 1, tablet, By Mouth, 4 times a day, # 120 tablet, Refills 5, Tot. Refills 5, Maintenance, 08/06/23 9:00:00 EDT, Route to Pharmacy Electronically, [facility]/pharmacy #[id number], 182, cm, 07/26/23 9:16:00 EDT, Height, 89, kg, 07/03/23 11:22:00 EST, Dry Weight Start Date: 08/06/23 Status: Ordered clindamycin 1% topical gel APPLY TO AFFECTED AREA TOPICALLY TWICE A DAY Start Date: 11/17/23 Status: Ordered docusate sodium 100 mg oral capsule 1 capsule, By Mouth, 2 times a day, # 60 capsule, 11 Refills, Maintenance, 09/03/23 17:44:00 EDT, [id number], 193, cm, 09/03/23 14:09:00 EDT, Height, 91.4, kg, 08/30/23 12:03:00 EDT, Dry Weight Start Date: 09/03/23 Status: Ordered duloxetine 30 mg oral enteric coated capsule 1 capsule = 30 mg, By Mouth, 2 times a day, TAKE 1 CAPSULE BY MOUTH EVERY DAY, # 60 capsule, 6 Refills, Maintenance, 10/25/23 15:39:00 EDT, Capsule, [facility]/pharmacy #[id number], Partial fill upon patient [...] 0 Refills, Maintenance, 10/16/23 15:51:00 EDT, [id number], 193, cm, 10/04/23 3:49:00 EDT, Height, 90.4, [...] tablet, 11 Refills, Maintenance, 08/12/23 13:51:00EDT, Tablet, [facility]/pharmacy #[id number], Partial fill upon patient request if the prescription is for a schedule II opioid drug., 182, cm, 07/26/23 9:16:00 EDT... Start Date: 08/12/23 Status: Ordered hydroxyurea 500 mg oral capsule 1 capsule, By Mouth, Daily, # 30 capsule, 0 Refills, Maintenance, 12/11/23 14:15:00 EDT, [id number], 194, cm, 11/20/23 13:14:00 EDT, Height, 93.9, [...] 08/12/23 13:51:00 EDT, Route to Pharmacy Electronically, [facility]/pharmacy #[id number], Partial fill upon patient request if the [...] 0 Refills, Maintenance, 07/16/23 10:05:00 EST, Tablet, [facility], Partial fill upon patient request [...] Team Personnel Name: Rita Welch RN Position: [facility] RN Member Role: Primary Care Nurse Name: Anu Lipscomb RN Position: [facility] RN Member Role: Primary Care Nurse Name: Jeanne Bryant RN Position: [facility] RN Member Role: Primary Care Nurse Name: Mitch Guido RN Position: [facility] RN Member Role: Primary Care Nurse Name: Areli Pittman RN Position: [facility] ED RN W/OE and Tasks Member Role: Primary Care Nurse Name: Derek Tomas MD Position: [facility] Resident Member Role: PCP Address: Address: [address] [place] [address] Name: Mari Suh RN Position: [facility] RN Member Role: Primary Care Nurse Name: Monique Irwin LPN Position: [facility] RN Member Role: Primary Care Nurse Name: Lianna Epstein RN Position: [facility] RN Member Role: Primary Care Nurse Name: Austin Wright RN Position: [facility] RN Member Role: Primary Care Nurse Name: Mk Knutson LPN Position: [facility] RN Member Role: Primary Care Nurse Name: Vicenta Barnett RN Position: [facility] RN Member Role: Primary Care Nurse Name: Betty Fonseca RN Position: [facility] RN Member Role: Primary Care Nurse Name: Farhana Garcia RN Position: [facility] RN Member Role: Primary Care Nurse Name: Kenyatta Villegas RN Position: [facility] RN Member Role: Primary Care Nurse Name: Albertina Adams RN Position: [facility] RN Member Role: Primary Care Nurse Name: Ricardo Russell RN Position: [facility] RN Member Role: Primary Care Nurse Name: Gissell Jernigan RN Position: [facility] RN Member Role: Primary Care Nurse Name: Farhana Green RN Position: [facility] RN Member Role: Primary Care Nurse Name: Cydney Delgado RN Position: [facility] RN Member Role: Primary Care Nurse Name: Debbie Rios RN Position: [facility] RN Member Role: Primary Care Nurse Name: Sharon Mendez RN Position: [facility] RN Member Role: Primary Care Nurse Name: Mookie Christianson RN Position: [facility] RN Member Role: Primary Care Nurse Name: Ally Boyd RN Position: [facility] RN Member Role: Primary Care Nurse Name: Javed Oneill RN Position: [facility] RN Member Role: Primary Care Nurse Name: Frances Quach RN Position: [facility] RN Member Role: Primary Care Nurse Name: Sandei Mejia RN Position: [facility] RN Member Role: Primary Care Nurse Name: Kriss Castillo RN Position: [facility] RN Member Role: Primary Care Nurse Name: Lynn Stewart RN Position: [facility] RN Member Role: Primary Care Nurse Name: Amanda Johnson RN Position: [facility] RN Member Role: Primary Care Nurse Name: Jolie Villalobos RN Position: [facility] RN Member Role: Primary Care Nurse Name: Axel Savage RN Position: [facility] RN Member Role: Primary Care Nurse Name: Dirk Driver RN Position: [facility] RN Member Role: Primary Care Nurse Name: Glenys Bee RN Position: [facility] RN Member Role: Primary Care Nurse Name: Praveen Maurer RN Position: [facility] RN Member Role: Primary Care Nurse Name: Filemon King RN Position: [facility] RN Member Role: Primary Care Nurse Name: Gomez Corona RN Position: [facility] RN Member Role: Primary Care Nurse Name: Lauren Guevara RN Position: [facility] RN Member Role: Primary Care Nurse Name: Annamaria Quinn RN Position: [facility] RN Member Role: Primary Care Nurse Name: Lashawn Nagy RN Position: [facility] RN Member Role: Primary Care Nurse Name: Rhonda Tate LPN Position: [facility] RN Member Role: Primary Care Nurse Name: Jacquelin Naranjo RN Position: [facility] RN Member Role: Primary Care Nurse Name: Glenys Fox RN Position: [facility] RN Member Role: Primary Care Nurse Name: Reilly Moreno RN Position: S RN Member Role: Primary Care Nurse Care Team Related Persons Name: BEVERLY REYNAGA Address: [address] [place] [address] Name: HEENA MCQUEEN Address: [place] [address] [place] [address] Name: AISLINN DE LA PAZ Address: [address] [address]
--- OUTSIDE RECORDS SUMMARY | 2024-01-21 19:33 | XMS_ITS | Continuity of Care Document ---
Author Organization [facility] Address [address] [place] [address]- Care Team Providers Care Transport Assistant Name Role Phone Derek Tomas MD Primary Care Physician Encounter [facility] Date(s): 05/21/23 - 07/21/[address] [address]- Attending Physician: Not on Staff, Attending MD [...] 06/17/23 8:53:00 EST, Route to Pharmacy Electronically, [facility], Partial fill upon patient request if the prescription is for a schedule II opioid... Start Date: 06/17/23 Status: Ordered Augmentin 875 mg-125 mg oral tablet 1 tablet, By Mouth, Every 12 hours, for 10 days, # 20 tablet, 0 Refills, Acute 07/26/23 9:53:00 EDT, 07/16/23 9:53:00 EST, Tablet, [facility], Partial fill upon patient request if the prescription is for a schedule II opioid drug., 182,... Start Date: 07/16/23 Stop Date: 07/26/23 Status: Ordered baclofen 20 mg oral tablet 20 mg, 1, tablet, By Mouth, 4 times a day, # 120 tablet, Refills 0, Tot. Refills 0, Maintenance, 06/03/23 13:25:00 EST, Route to Pharmacy Electronically, [facility], 193, cm, 06/01/23 9:54:00 EST, Height, 90.9, kg, 06/01/23 9:54:00 EST,... Start Date: 06/03/23 Status: Ordered docusate sodium 100 mg oral capsule 100 mg, 1, capsule, By Mouth, 2 times a day, # 60 capsule, Refills 0, Tot. Refills 0, Maintenance, 07/16/23 9:51:00 EST, Route to Pharmacy Electronically, [facility], Partial fill upon patient request if the prescription is for a schedul... Start Date: 07/16/23 Status: Ordered doxycycline hyclate 100 mg oral tablet 1 tablet = 100 mg, By Mouth, 2 times a day, for 10 days, # 20 tablet, 0 Refills, Acute 07/26/23 9:53:00 EDT, 07/16/23 9:53:00 EST, Tablet, [facility], Partial fill upon patient request if the prescription is for a schedule II opioid drug... Start Date: 07/16/23 Stop Date: 07/26/23 Status: Ordered duloxetine 30 mg oral enteric coated capsule 2 capsule = 60 mg, By Mouth, Daily, # 60 capsule, 0 Refills, Maintenance, 07/16/23 9:56:00 EST, [facility], 182, cm, 07/04/23 14:56:00 EST, Height, 89, kg, 07/03/23 11:22:00 EST, Dry Weight Start Date: 07/16/23 Status: Ordered Eliquis 5 mg oral tablet See Instructions, TAKE 1 TABLET BY MOUTH TWICE A DAY, # 60 tablet, 11 Refills, Maintenance, 06/12/23 6:31:00 EST, [facility] [id number], 193, cm, 06/01/23 9:54:00 EST, Height, 90.9, [...] 10/18/23 14:36:00 EDT, 07/20/23 14:36:00 EST, Capsule, [facility]/pharmacy #[id number], Partial fill [...] Route to Pharmacy Electronically, [facility]/pharmacy #[id number], Partial fill upon patient request if the presc... Start Date: 06/21/23 Status: Ordered Vitamin D3 1000 intl units oral tablet 1 tablet = 25 mcg, By Mouth, Daily, # 30 tablet, 0 Refills, Maintenance, 07/16/23 10:05:00 EST, Tablet, [facility], Partial fill upon patient [...] apex Confirmed Active N CP Care Management, Gate Manager Carmen Elizabeth [phone] Confirmed Active Therapeutic drug monitoring Confirmed Active Peripheral neuropathy Confirmed Active Right spastic hemiparesis Confirmed Active Spasticity Confirmed Active Tobacco dependence Confirmed Active Social History Social History Type Response Smoking Status 5-9 cigarettes (betw een 1/4 to 1/2 pack)/day in last 30 days entered on: 05/16/22 Sex Patient Care team information Care Team Personnel Name: Anu Lipscomb Position: [facility] RN Member Role: Primary Care Nurse Name: Areli Pittman RN Position: [facility] ED RN W/OE and Tasks Member Role: Primary Care Nurse Name: Derek Tomas MD Position: S Resident Member Role: PCP Address: Address: [address] [place] [address] Name: Farhana Garcia RN Position: [facility] RN Member Role: Primary Care Nurse Name: Farhana Green RN Position: [facility] RN Member Role: Primary Care Nurse Name: Ally Boyd RN Position: [facility] RN Member Role: Primary Care Nurse Name: Javed Oneill RN Position: [facility] RN Member Role: Primary Care Nurse Name: Lynn Stewart RN Position: [facility] RN Member Role: Primary Care Nurse Name: Jolie Villalobos RN Position: [facility] RN Member Role: Primary Care Nurse Name: Axel Savage RN Position: [facility] RN Member Role: Primary Care Nurse Name: Glenys Bee RN Position: [facility] RN Member Role: Primary Care Nurse Name: Filemon King RN Position: [facility] RN Member Role: Primary Care Nurse Name: Lauren Guevara RN Position: [facility] RN Member Role: Primary Care Nurse Name: Lashawn Nagy RN Position: [facility] RN Member Role: Primary Care Nurse Name: Glenys Fox RN Position: [facility] RN Member Role: Primary Care Nurse Care Team Related Persons Name: BEVERLY REYNAGA Address: [place] [address] Name: AISLINN DE LA PAZ Address: [address] [place] [address]
--- OUTSIDE RECORDS SUMMARY | 2024-01-21 19:33 | XMS_ITS | Continuity of Care Document ---
Author Organization [facility] ter Address [address] [place] [id number] Care Team Providers Care X Ray Service Engineer Name Role Phone Dreek Tomas MD Primary Care Physician Encounter [facility] [place] Date(s): 10/31/23 - 11/04/[address] [id number] Discharge Disposition: A-Transfer VNA/Home Health Attending Physician: Kallie PAGAN, Efren Caceres Admitting Physician: Johny PAGAN, Estrellita Matamoros Referring Physician: Not on [...] Acute 05/12/2415:40:00 EST, 10/25/23 15:40:00 EDT, Tablet, [facility]/pharmacy #[id number], Partial fill upon patient request if the prescription is for a schedule II opioid drug... Start Date: 10/25/23 Stop Date: 05/12/24 Status: Ordered amLODIPine 5 mg oral tablet 5 mg, 1, tablet, By Mouth, Daily, # 30 tablet, Refills 0, Tot. Refills 0, Maintenance, 06/17/23 8:53:00 EST, Route to Pharmacy Electronically, [facility], Partial fill upon patient request if the prescription is for a schedule II opioid... Start Date: 06/17/23 Status: Ordered amLODIPine 5 mg oral tablet 5 mg, Tablet, By Mouth, 11/04/23 9:00:00 EDT Start Date: 11/04/23 Stop Date: 11/04/23 Status: Completed ascorbic acid 500 mg oral tablet 1 tablet = 500 mg, By Mouth, Daily, # 30 tablet, 0 Refills, Maintenance, 09/06/23 12:42:00 EDT, Tablet, [facility]/pharmacy #[id number], Partial fill upon patient request if the prescription is for a schedule II opioid drug., 193, cm, 09/05/23 19:48:00 EDT, Height... Start Date: 09/06/23 Status: Ordered baclofen 10 mg oral tablet 20 mg, Tablet, By Mouth, 11/04/23 13:00:00 EDT Start Date: 11/04/23 Stop Date: 11/04/23 Status: Completed baclofen 20 mg oral tablet 20 mg, 1, tablet, By Mouth, 4 times a day, # 120 tablet, Refills 5, Tot. Refills 5, Maintenance, 08/06/23 9:00:00 EDT, Route to Pharmacy Electronically, [facility]/pharmacy #[id number], 182, cm, 07/26/23 9:16:00 EDT, Height, 89, kg, 07/03/23 11:22:00 EST, Dry Weight Start Date: 08/06/23 Status: Ordered Dilaudid Inj 1 mg, Injection, IV Push Slowly, Every 4 hours, PRN for Pain , Severe, Routine, 11/02/23 17:30:00 EDT Start Date: 11/02/23 Stop Date: 11/05/23 Status: Discontinued docusate sodium 100 mg oral capsule 1 capsule, By Mouth, 2 times a day, # 60 capsule, 11 Refills, Maintenance, 09/03/23 17:44:00 EDT, [id number], 193, cm, 09/03/23 14:09:00 EDT, Height, 91.4, kg, 08/30/23 12:03:00 EDT, Dry Weight Start Date: 09/03/23 Status: Ordered duloxetine 30 mg oral enteric coated capsule 1 capsule = 30 mg, By Mouth, 2 times a day, TAKE 1 CAPSULE BY MOUTH EVERY DAY, # 60 capsule, 6 Refills, Maintenance, 10/25/23 15:39:00 EDT, Capsule, [facility]/pharmacy #[id number], [...] 0 Refills, Maintenance, 10/16/23 15:51:00 EDT, [id number], 193, cm, 10/04/23 3:49:00 EDT, Height, 90.4, [...] tablet, 11 Refills, Maintenance, 08/12/23 13:51:00EDT, Tablet, [facility]/pharmacy #[id number], Partial fill upon patient request if the prescription is for a schedule II opioid drug., 182, cm, 07/26/23 9:16:00 EDT... Start Date: 08/12/23 Status: Ordered hydroxyurea 500 mg oral capsule = 500 mg, By Mouth, Daily, for 30 days, # 30 capsule, 0 Refills, Acute 11/15/23 15:53:00 EDT, 10/16/23 15:53:00 EDT, Capsule, [id number], Partial fill upon [...] 0 Refills, Soft Stop, 08/23/23 15:54:00 EDT, [facility]... Start Date: 08/23/23 Status: Ordered OxyCONTIN 20 mg oral tablet, extended release 20 mg, By Mouth, Every 8 hours, # 21 each, Refills 0, Tot. Refills 0, Maintenance, 11/04/23 12:34:00 EDT, Route to Pharmacy Electronically, [facility], Partial fill upon patient requestif the [...] 08/12/23 13:51:00 EDT, Route to Pharmacy Electronically, [facility]/pharmacy #[id number], Partial fill upon patient request if the [...] 0 Refills, Maintenance, 07/16/23 10:05:00 EST, Tablet, [facility], [...] Range]: 1 2 3 Height 193 cm (11/04/23 1:36 PM) 193 cm (11/01/23 12:48 AM) Weight 86.3 kg (11/01/23 12:48 AM) Oxygen Saturation [94-100 %] 99 % (11/04/23 1:36 PM) 98 % (11/04/23 7:39 AM) 98 % (11/03/23 8:00 PM) Pulse Rate [55-90 bpm] 82 bpm (11/04/23 1:36 PM) 63 bpm (11/04/23 7:39 AM) 61 bpm (11/03/23 8:00 PM) Body Mass Index [18.5-24.99 kg/m2] 23.17 kg/m2 (11/01/23 12:48 AM) Blood Pressure [90-138/55-84 mm Hg] 128/66mm Hg (11/04/23 1:36 PM) 110/48mm Hg (11/04/23 8:35 AM) 110/48mm Hg (11/04/23 7:39 AM) Respiratory Rate [16-30 br/min] 19 br/min (11/04/23 1:36 PM) 16 br/min (11/04/23 12:57 PM) 16 br/min (11/04/23 12:57 PM) Temperature [96.8-100.4 DegF] 98.4 DegF (11/04/23 1:36 PM) 98.1 DegF (11/04/23 7:39 AM) 98.6 DegF (11/03/23 8:00 PM) Mode of Delivery (Oxygen) Room air (11/04/23 1:36 PM) Room air (11/04/23 7:39 AM) Room air (11/03/23 8:00 PM) Blood pressure sites Arm, left (11/04/23 1:36 PM) Arm, right (11/04/23 7:39 AM) Arm, left (11/03/23 8:00 PM) Temperature Route Oral (11/04/23 1:36 PM) Oral (11/04/23 7:39 AM) Oral (11/03/23 8:00 PM) Dry Weight 86.3 kg (11/01/23 12:48 AM) Social History Social History Type Response Smoking Status 5-9 cigarettes (betw een 1/4 to 1/2 pack)/day in last 30 days entered on: 05/16/22 Sex History and physical note * Cory PAGAN, Benson Matamoros: PERFORM Event Display: History and Physical Hospital Authored Date: Patient: ??ERNESTO MCQUEEN ? Age:??38 Years?Sex:??Male?:??1985?? Chief Complaint/Reason for Consultation pt comes from home, reports hip pain in the setting of chronic pressure sores. h/o previous stroke 4 yrs ago; pt's bebdound/right hemiparesis History of Present Illness This is an unfortunate 38-year-old man who has significant history of ischemic stroke with right sided residual hemiparesis, expressive aphasia, intracardiac thrombus anticoagulated on Eliquis, severe hidradenitis suppurativa with multiple I&D's and multiple problems with right gluteal area, chronic pain on opiates, hypertension who was just discharged from this institution 9 days ago and comes back complaining of severe pain on the right gluteal area.?? The patient was discharged home oxycodone immediate release 30 mg p.o. twice a day.?? As per notes, his insurance company will not covermore than 60 mg of oxycodone a day.?? The patient claims that the oxycodone helps but he needs it 3 times a day at least.?? He continues with drainage from his chronic wounds on the right gluteal area but denies any fever, chills or sweats.?? He lives home by himself and has the help of his mother also a visiting nurse. In the emergency room, lab work showed the presence of ESR greater than 129 and the patient was started empirically on vancomycin.?? He received 1.5 g IV x 1. While the emergency room, he also received 10 mg of oxycodone and a total of 6 mg of Dilaudid. Review of Systems A full review of systems was completed and is otherwise negative except as mentioned in history of present illness. Objective ? Vital Signs?? Temperature: 97.8 DegF (11/01/23 00:00:00) Temperature Route: Oral (11/01/23 00:00:00) Pulse Rate: 73 bpm (11/01/23 00:00:00) Respiratory Rate: 18 br/min (11/01/23 00:34:00) Systolic Blood Pressure: 127 mm Hg (11/01/23 00:00:00) Diastolic Blood Pressure: 59 mm Hg (11/01/23 00:00:00) Blood pressure sites: Arm, right (11/01/23 00:00:00) Mean Arterial Pressure: 96 mm Hg (10/31/23 23:07:00) Pulse Pressure: 68 mm Hg (11/01/23 00:00:00) Oxygen Saturation: 98 % (11/01/23 00:00:00) Mode of Delivery (Oxygen): Room air (11/01/23 00:00:00) Early Warning Score: 2 (11/01/23 01:02:11) ? Physical Exam Constitutional: Alert, in no distress. Mental Status: Oriented to person, place and time. Head: Normocephalic. Eyes: Pupils are equal, round and reactive to light. Extraocular muscles intact. Ear, Nose and Throat: Oropharynx clear, pallor without jaundice,??mucous membranes moist. Ears and nose without masses, lesions or deformities. Trachea midline. Neck: Supple, Full range of motion.?? Facial hair. Respiratory: Clear to auscultation. No wheezing, rales or rhonchi. Cardiovascular: S1 S2 regular. No murmurs, rubs or gallops. Gastrointestinal: Abdomen soft, non-tender, non-distended. Normal bowel sounds. No pulsatile mass. No hepatosplenomegaly. Genitourinary: No costovertebral angle tenderness. Neurologic: Expressive aphasia.?? Right-sided hemiparesis. Skin: Multiple wounds on the right gluteal area??with??clear yellow drainage??and small streaks of blood??(present on admission) Musculoskeletal: No cyanosis or clubbing. No gross deformities. Normal range of motion. Heme/Lymphatics/Immun: Palpation of neck reveals no swelling or tenderness of neck nodes. Palpationof groin reveals no swelling or tenderness of groin nodes Assessment/Plan Diagnoses Chronic pain syndrome ??(G89.4) Chronic, continuous use of opioids ??(F11.90) Depression ??(F32.A) Hidradenitis suppurativa ??(L73.2) PAYT (iron deficiency anemia) ??(D50.9) Intracardiac thrombus ??(I51.3) Right spastic hemiparesis ??(G81.11) Thrombocytosis ??(D75.839) ?? Assessment:??This is a 38-year-old man who was just discharged from this institution??5 days ago and comes back with persistent pain??on the right??gluteal area.??Patient with multiple??open wounds??on the right gluteal area??due to??hidradenitis suppurativa. Patient with elevated??ESR??of greater than 129??but clinically, the wounds do not look infected.??Patient received vancomycin 1.5 g IV x 1.??I will hold antibiotics for now as patient without significant leukocytosis or fever. ?? Hidradenitis suppurativa (L73.2):??He will be admitted to regular room as inpatient. Patient??apparently has an appointment to see??a senior estimator at [facility]. Wound care consult??in the morning. Holding antibiotics??for now. ?? Chronic, continuous use of opioids (F11.90):??. ?? Chronic pain syndrome (G89.4):??Patient??with??poorly pain control.??I will continue his oxycodone??immediate release 30 mg??p.o. twice a day??as needed for moderate pain??and will receive Dilaudid 2mg IV every 4 hours as needed??for severe pain. Addiction medicine consult in the morning. For some reason, his insurance will only approve??60 mg of oxycodone.??And lets see if addiction medicine can find a better pain??regimen for this patient. ?? Right spastic hemiparesis (G81.11):??-Continue home tizanidine as needed, and scheduled baclofen ?? Intracardiac thrombus (I51.3):??Patient anticoagulated on Eliquis ?? PATY (iron deficiency anemia) (D50.9):??-Continue home iron, vitamin C ?? Thrombocytosis (D75.839):??-Continue home hydroxyurea ?? Depression (F32.A):??Continue duloxetine 30 mg p.o. twice a day ?? VTE Prophylaxis:??Patient on Eliquis. ?VTE Prophylaxis Assessment:??VTE Prophylaxis Ordered ?? Discharge Planning:? Code Status:??He is a full code. ?Order Code Status:??Code Status Ordered ?? I spent a total of 75 minutes today reviewing the chart/medical records, speaking with the patient,formulating and discussing the treatment plan, and documenting the findings and encounter. Histories Allergies Allergies ?(Active and Proposed Allergies [...] Recent Labs BLOOD COUNT & DIFF WBC 8.2 k/mm3 ()?? 10/31/2023 19:46 RBC 3.31 m/mm3 (Low)?? 10/31/2023 19:46 Hgb 8.0 Gm/dL (Low)?? 10/31/2023 19:46 Hct 27.1 % (Low)?? 10/31/2023 19:46 MCV 81.9 femtoliters ()?? 10/31/2023 19:46 MCH 24.2 pg (Low)?? 10/31/2023 19:46 MCHC 29.5 g/dL (Low)?? 10/31/2023 19:46 Platelet Count 677 k/mm3 (High)?? 10/31/2023 19:46 RDW-SD 54.7 femtoliters (High)?? 10/31/2023 19:46 MPV 8.0 femtoliters (Low)?? 10/31/2023 19:46 Nucleated RBC (Automated) 0.0 #/100 WBC'S ()?? 10/31/2023 19:46 Abs. NRBC 0.0 k/mm3 ()?? 10/31/2023 19:46 Abs. Neut 5.5 k/mm3 ()?? 10/31/2023 19:46 Abs. Lymph 1.9 k/mm3 ()?? 10/31/2023 19:46 Abs. Blanco 0.7 k/mm3 ()?? 10/31/2023 19:46 Abs. Eo 0.1 k/mm3 ()?? 10/31/2023 19:46 Abs. Baso 0.0 k/mm3 ()?? 10/31/2023 19:46 Neut % 67.5 % ()?? 10/31/2023 19:46 Lymph % 22.7 % ()?? 10/31/2023 19:46 Blanco % 8.0 % ()?? 10/31/2023 19:46 Eos % 0.9 % ()?? 10/31/2023 19:46 Baso % 0.5 % ()?? 10/31/2023 19:46 Imm Gran 0.4 % ()?? 10/31/2023 19:46 Abs. Imm Gran 0.0 k/mm3 ()?? 10/31/2023 19:46 ?? CHEM GENERAL Sodium 137 mmol/L ()?? 10/31/2023 19:46 Potassium 4.3 mmol/L ()?? 10/31/2023 19:46 Chloride 100 mmol/L ()?? 10/31/2023 19:46 Bicarbonate Level 26 mmol/L ()?? 10/31/2023 19:46 Anion Gap 11 ()?? 10/31/2023 19:46 Glucose Level 88 mg/dL ()?? 10/31/2023 19:46 BUN 11 mg/dL ()?? 10/31/2023 19:46 Creatinine-Blood 0.75 mg/dL ()?? 10/31/2023 19:46 Estimated GFR Creatinine 119 ML/MIN/1.73 M2 ()?? 10/31/2023 19:46 Calcium 8.9 mg/dL ()?? 10/31/2023 19:46 C-Reactive Protein 6.4 mg/dL (High)?? 10/31/2023 19:46 ?? HEME OTHER Sed Rate >129 mm/hr (High)?? 10/31/2023 19:46 ? EKG study * Event Display: ECG 12-Lead Authored Date: Please click on pdf link to open report * Event Display: ECG 12-Lead Authored Date: Ventricular Rate: 62 BPM Atrial Rate: 62 BPM P-R Interval: 160 ms QRS Duration: 106 ms Q-T Interval: 394 ms QTC Calculation(Bazett): 399 ms P [place]: 19 degrees R [place]: -26 degrees T [place]: -6 degrees Normal sinus rhythm Minimal voltage criteria for LVH, may be normal variant ( R in aVL ) Borderline ECG When compared with ECG of 03-MAY-2023 15:46, No significant change was found Confirmed by DIRK VILLA ([id number]) on 11/01/2023 9:57:25 AM [place]: DIRK VILLA [facility] Progress note * Tarsha Larry RN: PERFORM, SIGN, VERIFY Event Display: Progress Note Hospital Authored Date: [id number] Patient: ERNESTO MCQUEEN Age: 38 years Sex: Male : 1985 Associated Diagnoses: None Author: Tarsha Larry RN Findings Problem Related to Alteration in Comfort : Alteration in Comfort/new 11/04/2023 11:00 EDT Alteration in Comfort Related to Other: pain control Goals & Outcomes: Comfort Pt will report [...] accordingly Goals/Interventions, Comfort Yes Comfort, Problem Start 05/13/2023 2:27 Reviewed plan with, Comfort Patient Patient Progression, Comfort Pt progressing according to plan Comfort, Problem Ongoing Yes . Alteration in Integumentary : Alteration in Integumentary/new 11/04/2023 11:00 EDT Alteration in Integumentary Related to Other: Buttocks/gluteal fold HS Goals & Outcomes, Integumentary Pt will maintain adequate fluid & nutritional balance, Pt will maintain intact skin integrity, Wound will progress towards healing Interventions, Integumentary Cleanse all wounds with Normal Saline, Consult Wound Care as needed for further interventions, Encourage & assist pt to change position frequently, Encourage & assist with range of motion exercises, Ensure relief modes are on mattress surface & utilized, Increase turning frequency if red or blanched areas appear, Keep bed as flat as tolerated to reduce shearing, Keep linen clean, dry and wrinkle free, Keep skin clean & dry, Maintain sterile techniquewith dressing changes, Minimize friction, shear and moisture, Monitor reddened areas for continued or increasing reddness, Record extent of impaired skin integrity, Relieve pressure off bony areas, Use barrier cream/ointment if pt's skin is frequently moist, Use pH balanced no rinse cleanser if incontinent, Use pressure dispersing devices as appropriate Goals/Interventions, Integumentary Yes Integumentary, Problem Start 11/04/2023 11:02 Reviewed plan with, Integumentary Patient Patient Progression, Integumentary Pt progressing according to plan . Nursing Data Integumentary Data. : Integumentary Data. 11/04/2023 10:46 EDT Skin Color Normal for ethnicity Skin Integrity Not intact Skin Turgor Elastic Mucous Membrane Color [place] Mucous Membrane Description Moist Integumentary WNL except 11/04/2023 10:44 EDT Sensory Perception Slightly limited Moisture Occasionally moist Activity Walks occasionally Mobility Very limited Nutrition Adequate Friction and Shear No apparent problem Ulices Score 17 Nursing Care Plan initiated/updated Not applicable 11/04/2023 10:00 EDT Buttock Right Multiple scattered Skin Abnormality Type: Unknown Etiology Wound Assessment Activity: Reassessment Wound Dressing: ABD dressing pad, Ag Silver Textile / Cloth Dressing, Dry sterile dressing, Other: VASHE Wound Dressing Assessment: Clean, Dry, Intact Wound Dressing Activity: Changed Wound Surrounding Tissue: Normal Gluteal Crease Right Midline Skin Abnormality Type: Unknown Etiology Wound Assessment Activity: Reassessment Wound Dressing: Ag Silver Textile / Cloth Dressing, Dry sterile dressing, Other: VASHE Wound Dressing Assessment: Clean, Dry, Intact Wound Dressing Activity: Changed 11/04/2023 9:00 EDT Skin Integrity Not intact Activity Walks occasionally Mobility Very limited Integumentary WNL except . Narrative/Incidental Please see iview for further detail. wound care to buttocks as per orders. Pain mgmt with adjustments this morning, adding in oxycontin ER. Educatated patient on the medication. Plan for DC home later today. * Kallie PAGAN, Efren Caceres: PERFORM Event Display: Progress Note Hospital Authored Date: [id number] Patient: ??ERNESTO MCQUEEN ? Age:??38 Years?Sex:??Male?:??1985?? Subjective Pain slightly better controlled with??1 mg of IV Dilaudid No significant changes otherwise Review of Systems As above Objective ? Vital Signs?? Temperature: 97.8 DegF (11/03/23 07:00:00) Temperature Route: Oral (11/03/23 07:00:00) Pulse Rate: 56 bpm (11/03/23 07:00:00) Respiratory Rate: 18 br/min (11/03/23 10:08:00) Systolic Blood Pressure: 108 mm Hg (11/03/23 07:42:00) Diastolic Blood Pressure: 63 mm Hg (11/03/23 07:42:00) Blood pressure sites: Arm, left (11/03/23 07:00:00) Pulse Pressure: 45 mm Hg (11/03/23 07:00:00) Oxygen Saturation: 99 % (11/03/23 07:00:00) Mode of Delivery (Oxygen): Room air (11/03/23 07:00:00) Early Warning Score: 2 (11/03/23 10:09:12) ? Intake/Output? 10/30 21:48 11/02 07:00 11/01 07:00 10/31 07:00 10/30 07:00 ?? 11/02 12:33 11/02 12:33 11/02 06:59 11/01 06:59 10/31 06:59 Intake ?594 ?0 ?474 ?120 ?0 Output ? 1900 ?0 ?775 ?875 ?250 Net Total ?-1306 ?0 ? -301 ? -755 ? -250 ? Urine Count ?1 ?0 ?0 ?0 ?1 ? Physical Exam Constitutional: Resting comfortably today Head: Normocephalic. ?? Eyes: Pupils are equal, round and reactive to light. Extraocular muscles intact. No pallor or scleral icterus ?? Ear, Nose and Throat: mucous membranes moist. Ears and nose - no obvious deformities. Trachea midline. ?? Neck: Supple, Full range of motion.No JVD or bruits. Respiratory:??Clear to auscultation. No wheezing or rhonchi.??No use of accessory muscles. No tactile fremitus.?? Cardiovascular:??PMI not visible. S1 S2 regular. No murmurs, rubs or gallops. Gastrointestinal:??Abdomen soft, non-tender, non-distended. Normal bowel sounds. No pulsatile mass.No hepatosplenomegaly. Genitourinary:??No costovertebral angle tenderness. Extremities: No lower extremity pitting edema. No cyanosis or clubbing. Neurologic:??Expressive aphasia with slurred speech, right-sided hemiparesis Skin:??Multiple wounds over the right??gluteal region with??serosanguineous drainage. ??Present on admission ?? _ Inpatient Medications Medications (23) Active SCHEDULED: (13) Amlodipine 5 mg Tablet (amLODIPine 5 mg [...] (Vitamin D3 1000 intl units oral tablet) ??1,000 International_Units, By Mouth, Daily CONTINUOUS: (0) PRN: (10) Acetaminophen 325 mg Tablet (Acetaminophen Tablet) ??650 mg, By Mouth, Every 4 hours Docusate Sodium 100 mg Capsule (Docusate Sodium Capsule) ??100 mg 1 capsule, By Mouth, 2 times a day HYDROmorphone 1 mg/mL Inj Syringe (Dilaudid Inj) ??1 mg 1 mL, IV Push Slowly, Every 4 hours Melatonin 3 mg Tablet (Melatonin Tablet) ??3 mg, By Mouth, Daily at bedtime NaCl 0.9% Flush 3ml (NaCL 0.9% Flush) ??3 mL, IV Push, Every 8 hours OxyCODONE 5 mg IR Tablet (oxyCODONE 5 mg oral tablet) ??15 mg, By Mouth, Every 6 hours Polyethylene [...] Antibiotics Stop Date/Time Last Administered First Administered Vancomycin??1,500 mg, 166.67 mL/hr, IVPB, Once 10/31/2023 21:27 10/31/2023 21:27 10/31/2023 21:27 ? Results ? LFT?? No qualifying data available. ? Uric/LDH?? No qualifying data available. ? Assessment/Plan 38-year-old man who was just discharged from this institution??5 days ago and comes back with persistent pain??on the right??gluteal area.??Patient with multiple??open wounds??on the right gluteal area??due to??hidradenitis suppurativa. Patient with elevated??ESR??of greater than 129??but clinically, the wounds do not look infected.??Patient received vancomycin 1.5 g IV x 1.?As there was no clear evidence of??infection antibiotics were not continued. ?? Hidradenitis suppurativa (L73.2) Chronic, continuous use of opioids (F11.90):??. Chronic pain syndrome (G89.4):?? Patient with chronic wounds over the gluteal region. Was evaluated by wound care in the same recommendations from 10/21 are to be continued He has an outpatient follow-up with dermatology in [facility]. Patient was evaluated by APS on 10/03 recommendation at that time was to consult addiction medicine and would not recommend up titration of opioids. The reason for addiction medicine consult was patient's mother had voiced concerns of addiction as patient had consumed 3 days worth of oxycodone in 1 day. Currently on IV Dilaudid,??pain is??acceptably??controlled but??there is no clear plan for him to??be weaned off Dilaudid??in preparation for discharge Unfortunately??his insurance will only cover 60 mg of oxycodone daily. ??Will need to have a discussion with??pharmacy/social work/case management??about??circumventing this and getting him on at least 30 mg of oxycodone every 8 hours for pain control. Continue with multimodal pain control with Tylenol gabapentin??tizanidine baclofen??and duloxetine. I will discuss with addiction medicine on Saturday whether they have any alternatives. ? Right spastic hemiparesis (G81.11):??-Continue home tizanidine as needed, and scheduled baclofen ?? Intracardiac thrombus (I51.3):??Patient anticoagulated on Eliquis ?? PATY (iron deficiency anemia) (D50.9):??-Continue home iron, vitamin C ?? Thrombocytosis (D75.839):??-Continue home hydroxyurea ?? Depression (F32.A):??Continue duloxetine 30 mg p.o. twice a day ?? VTE Prophylaxis:??Patient on Eliquis. ?VTE Prophylaxis Assessment:??VTE Prophylaxis Ordered ?? Discharge Planning:??Will need to achieve better pain control with oral medications prior to discharge. ?? Code Status:??He is a full code. ?Order Code Status:??Code Status Ordered ? * Gomez Corona RN: PERFORM, MODIFY, VERIFY, MODIFY, MODIFY, SIGN Event Display: Progress Note Hospital Authored Date: Patient: ERNESTO MCQUEEN Age: 38 years Sex: Male : 1985 Associated Diagnoses: None Author: Gomez Corona RN Findings Problem Related to Alteration in Comfort : Alteration in Comfort/new 11/03/2023 7:00 EDT Alteration in Comfort Related to Other: pain control Goals & Outcomes: Comfort Pt will report [...] BH Goals/Interventions, Comfort Yes Comfort, Problem Start 05/13/2023 2:27 Reviewed plan with, Comfort Patient Patient Progression, Comfort Plan Initiation Comfort, Problem Ongoing Yes . Nursing Data Vital Signs : VITAL SIGNS SECTION 11/03/2023 16:00 EDT Temperature 98.0 DegF Temperature Route Oral Pulse Rate 59 bpm Respiratory Rate 18 br/min Systolic Blood Pressure 104 mm Hg Diastolic Blood Pressure 56 mm Hg Blood pressure sites Arm, left Pulse Pressure 48 mm Hg Oxygen Saturation 99 % Mode of Delivery (Oxygen) Room air 11/03/2023 15:52 EDT Respiratory Rate 16 br/min Respiratory Rate 18 br/min 11/03/2023 14:53 EDT Early Warning Score 2.00 11/03/2023 14:53 EDT Early Warning Score 2.00 11/03/2023 14:52 EDT Respiratory Rate 18 br/min Respiratory Rate 18 br/min 11/03/2023 14:03 EDT Early Warning Score 2.00 11/03/2023 14:03 EDT Early Warning Score 2.00 11/03/2023 14:02 EDT Early Warning Score 2.00 11/03/2023 14:02 EDT Early Warning Score 2.00 11/03/2023 14:02 EDT Early Warning Score 2.00 11/03/2023 14:02 EDT Early Warning Score 2.00 11/03/2023 13:03 EDT Respiratory Rate 18 br/min 11/03/2023 12:34 EDT Early Warning Score 2.00 11/03/2023 12:34 EDT Early Warning Score 2.00 11/03/2023 12:33 EDT Respiratory Rate 18 br/min Respiratory Rate 18 br/min 11/03/2023 11:08 EDT Respiratory Rate 18 br/min Respiratory Rate 18 br/min 11/03/2023 10:09 EDT Early Warning Score 2.00 11/03/2023 10:08 EDT Respiratory Rate 18 br/min 11/03/2023 8:43 EDT Respiratory Rate 18 br/min 11/03/2023 8:13 EDT Respiratory Rate 18 br/min 11/03/2023 7:44 EDT Early Warning Score 2.00 11/03/2023 7:44 EDT Early Warning Score 2.00 11/03/2023 7:44 EDT Early Warning Score 2.00 11/03/2023 7:44 EDT Early Warning Score 2.00 11/03/2023 7:43 EDT Respiratory Rate 18 br/min Respiratory Rate 18 br/min 11/03/2023 7:42 EDT Respiratory Rate 18 br/min Systolic Blood Pressure 108 mm Hg Diastolic Blood Pressure 63 mm Hg 11/03/2023 7:35 EDT Early Warning Score 2.00 11/03/2023 7:20 EDT Respiratory Rate 18 br/min 11/03/2023 7:00 EDT Temperature 97.8 DegF Temperature Route Oral Pulse Rate 56 bpm Respiratory Rate 16 br/min Systolic Blood Pressure 108 mm Hg Diastolic Blood Pressure 63 mm Hg Blood pressure sites Arm, left Pulse Pressure 45 mm Hg Oxygen Saturation 99 % Mode of Delivery (Oxygen) Room air . Evaluation A+Ox4, expressive aphasia from previous CVA, denies chest pain, denies SOB, Lungs clear on RA. RUE and RLE: diminished sensation with no movement. LUE and LLE: WNL. No tele, IV access left arm. Bed in lowest locked position, bed alarm on, call mariee within reach. PRN 2mg Dilaudid given in morning and noon for severe pain, 15mg Oxycodone and 650mg PRN Acetaminophen PO given multiple times during shift for pain. At approximately 1600 pt had infiltration during administration of IV PRN Hydromorphone 1mg, IV taken out and heat pack applied. MD notified of infiltration and missed dose of Hydromorphone, 1 time dose of 1mg Hydromorphone IV PRN given. No other acute changes noted at this time. Woundcare done in afternoon. Bed in lowest locked position, bed alarm on, call mariee within reach.. Consult note * Barrett BUSTAMANTE, Rosa Ellis: PERFORM, SIGN, VERIFY Event Display: Consultation Note Authored Date: [id number] Patient: ERNESTO MCQUEEN Age: 38 years Sex: Male : 1985 Associated Diagnoses: None Author: Barrett BUSTAMANTE, Rosa Ellis History of Presenting Problem Date of Service 11/01/2023 Wound RN consult entered to assess mx on right glute, one in right glute crease and make topical recommendations. Patient well known to Wound RN team, I last consulted on patient last Saturday 10/21 for these wounds, please see my note for details. Patient readmitted yesterday 10/30 for right gluteal pain. Significant PMH of Hidradenitis Suppurativa s/p multiple I&D's. Jace connected with MD Ken Ortiz this morning discussing above briefly and recommending if agreeable to utilize my wound care orders from last week as there is no further advanced wound care I would recommend. Aquacel ag benefits: fill space- exudate management- provide antimicrobial properties & Vashe benefits:decrease bioburden and assist with 'stalled' properties within wound base. I also recommended if there are concerns for the area to consult surgery as well for assessment. MD was agreeable to Wound RN not seeing patient at bedside, I placed wound care order for MD, nutrition consulted. Recommendations: 1.) Right buttock: Gently cleanse/irrigate wound [...] other day and as needed for soiling/saturation. *Ensure to document total number of packed dressings utilized in wound bed on outside dressing, to ensure appropriate amount removed next dressing change. *Do not use multiple pieces of Aquacel [...] RNs for deterioration in wound/skin status Plan Time spent 16-30 minutes Note * Lashawn Nagy RN: PERFORM Event Display: Discharge/Transfer Note Hospital Authored Date: Nursing Discharge Note Entered On: 11/04/2023 13:15 EDT Performed On: 11/04/2023 13:15 EDT by Lashawn Nagy RN Nursing Discharge Note 2 Discharge Time : 11/04/2023 15:22 EDT Lashawn Nagy RN - 11/04/2023 15:54 EDT Discharge Level of Care at Discharge : Homehealth/VNA Discharge VNA/Hospice/Home Care(v001) : [facility] [phone] Patient Left Unit Via : Ambulance Patient Accompanied Off Unit with : Ambulance/Chair Van Personnel Handover Given to Transport Personnel : Yes DC Instructions Provided & Signed by Pt : No Patient Understands D/C Instructions : Yes Patient Instructions Discharge Signed : Yes Did Pt have Specialty Bed or Wound Vac : No Lashawn Nagy RN - 11/04/2023 13:15 EDT * Kallie PAGAN, Efren Caceres: PERFORM, MODIFY Event Display: Discharge/Transfer Note Hospital Authored Date: Patient: ??MCQUEEN, ERNESTO ? Age:??38 Years?Sex:??Male?:??1985?? Patient Information Discharge Location: [facility] Primary Care Physician: Derek Tomas MD Admit Date/Time: 10/31/23 21:48 Discharge Disposition Discharge Disposition: Home with Home Health Discharge Diagnosis Chronic pain syndrome (G89.4) Chronic, continuous use of opioids (F11.90) Depression (F32.A) Hidradenitis suppurativa (L73.2) Thrombocytosis (D75.839) PATY (iron deficiency anemia) (D50.9) Right spastic hemiparesis (G81.11) Intracardiac thrombus (I51.3) _ Discharge Medications Acetaminophen (acetaminophen 500 mg [...] TO OPEN WOUND(S)* ?? Medications Started Oxycodone (OxyCONTIN 20 mg oral tablet, extended release)?20?Milligram?By Mouth?Every 8hours?for 7?Days Medications Discontinued Oxycodone IR 30 mg every 12 hrs Allergies Allergies ?(Active and Proposed Allergies Only) NKA? (Severity: Unknown severity, Onset: Unknown) ? Hospital Course 38-year-old male with a complicated past medical history of ischemic stroke with right-sided residual hemiparesis, expressive aphasia, intracardiac thrombus anticoagulated on Eliquis severe hidradenitis suppurativa with multiple I&D's and multiple issues with right gluteal infection and wounds,chronic pain on opioids who was discharged on 10/22 presented again with complaints of severe pain on the right gluteal area. Was admitted for ruling out of recurrent infection and pain management. ?? Patient was hemodynamically stable on presentation with no fever. He did have a ESR of more than 129 but clinically wounds did not appear infected. Wound care was consulted who recommended continuingthe same plan from the previous admission as there were no new changes. He did receive vancomycin in the ED but they were discontinued as there were no clinical signs of reinfection. Patient does have an appointment with dermatology from [facility] as outpatient. ?? Pain control has been an issue with this patient. He was seen by addiction medicine previously and also acute pain services during the previous admission. Despite the family voicing concerns about opioid use patient is not willing to discuss or pursue any treatment regarding this therefore addiction medicine did not have any further recommendations. Unfortunately his insurance would only cover 60mg of oxycodone a day which she states is inadequate. He was covered with IV Dilaudid for breakthrough pain while in the hospital. I did offer transition to DE Contin but patient states that it has no effect on them. Therefore he will be transition to 20 mg of OxyContin every 8 hours. He will need an early follow-up with his primary care physician for continuation of this medication. ?? Objective Measurements?? Height: 193 cm (11/01/23) Weight: 86.3 kg (11/01/23) Dry Weight: 86.3 kg (11/01/23) Body Mass Index: 23.17 kg/m2 (11/01/23) ? Vital Signs?? Temperature: 98.1 DegF (11/04/23 07:39:00) Temperature Route: Oral (11/04/23 07:39:00) Pulse Rate: 63 bpm (11/04/23 07:39:00) Respiratory Rate: 16 br/min (11/04/23 11:24:00) Systolic Blood Pressure: 110 mm Hg (11/04/23 08:35:00) Diastolic Blood Pressure:??48 mm Hg??Low (11/04/23 08:35:00) Blood pressure sites: Arm, right (11/04/23 07:39:00) Mean Arterial Pressure: 69 mm Hg (11/04/23 07:39:00) Pulse Pressure: 62 mm Hg (11/04/23 07:39:00) Oxygen Saturation: 98 % (11/04/23 07:39:00) Mode of Delivery (Oxygen): Room air (11/04/23 07:39:00) Early Warning Score: 0 (11/04/23 11:25:07) ? . Physical Exam Constitutional: Resting comfortably today Head: Normocephalic. ?? Eyes: Pupils are equal, round and reactive to light. Extraocular muscles intact. No pallor or scleral icterus ?? Ear, Nose and Throat: mucous membranes moist. Ears and nose - no obvious deformities. Trachea midline. ?? Neck: Supple, Full range of motion.No JVD or bruits. Respiratory:??Clear to auscultation. No wheezing or rhonchi.??No use of accessory muscles. No tactile fremitus.?? Cardiovascular:??PMI not visible. S1 S2 regular. No murmurs, rubs or gallops. Gastrointestinal:??Abdomen soft, non-tender, non-distended. Normal bowel sounds. No pulsatile mass.No hepatosplenomegaly. Genitourinary:??No costovertebral angle tenderness. Extremities: No lower extremity pitting edema. No cyanosis or clubbing. Neurologic:??Expressive aphasia with slurred speech, right-sided hemiparesis Skin:??Multiple wounds over the right??gluteal region with??serosanguineous drainage. ??Present on admission ?? Pending Results No Pending Results Follow-Up Appointments Added Follow Up ?Time Frame ?Comments Jacobo-Derek Webb MD?3-5 day: call to discuss follow up visit?Call office to confirm appointment Post Discharge Care Diet: ??Cardiac diet ?? Activity: ??Ambulate with assistance 3 times a day unless otherwise specified ?? Wound Care: ??Wound Site: Right buttock every other day Yes ?? Code Status: ??Full Resuscitation ?? Discharge ?11/04/23 12:38:00 EDT Home Health Face to Face *Denotes mandatory burton ?? *I certify that this patient is under my care and that I or an allowed non- physician working with me had a face to face encounter with the patient on this date:??11/04/2023 12:40 ?? *The encounter with the patient was in whole, or in part, for the following medical condition, which is the primary diagnosis(es) for home health care:??Chronic pain syndrome (G89.4) Chronic, continuous use of opioids (F11.90) Depression (F32.A) Hidradenitis suppurativa (L73.2) Thrombocytosis (D75.839) PATY (iron deficiency anemia) (D50.9) Right spastic hemiparesis (G81.11) Intracardiac thrombus (I51.3) ?? *Select the indications for the discipline/s that are being arranged for this patient. Nursing (select all that apply): [_] None [x] Medication management (reconciliation, teaching)?? [x] Chronic disease management?? [x] Wound care and treatment?? [x] Home safety evaluation [_] Administer SQ/IM/IV medications?? [_] Cath care?? [_] Drain care?? [_] Trach or GT care?? Other _ Occupation Therapy (select all that apply): [_] None [x] ADL Management [_] Fall prevention training [x] Energy conservation [x] Cognitive training Other _ Physical Therapy (select all that apply): [_] None [x] Functional mobility training [x] Home exercise program to strengthen [x] Increase ROM?? [_] Falls prevention training [x] Home maintenance program for chronic disease Other _ Speech Therapy (select all that apply): [_] None [_] Swallow evaluation and training [_] Speech and language training [_] Cognitive training to process, organize, and/or recall information Other _ ?? Home Health Aid ? *Homebound due to (select all that apply): [x] Inability to leave home without assistance/supervision [x] Inability to ambulate without assistance [x] Pain [x] Decreased strength and endurance [_] Unsteady gait [_] Severe SOB and fatigue [x] Impaired transfers [x] Inability to negotiate stairs [x] Limited weight bearing [x] Mental status change? *Physician Signature: _Kallie PAGAN [facility] ?? *By signing this, I certify that I have personally evaluated the patient and agree with the findings and recommendations as documented above. ? Results Discharge Labs BLOOD COUNT & DIFF WBC 4.9 k/mm3 ()?? 11/02/2023 02:04 RBC 3.15 m/mm3 (Low)?? 11/02/2023 02:04 Hgb 7.9 Gm/dL (Low)?? 11/02/2023 02:04 Hct 26.3 % (Low)?? 11/02/2023 02:04 MCV 83.5 femtoliters ()?? 11/02/2023 02:04 MCH 25.1 pg (Low)?? 11/02/2023 02:04 MCHC 30.0 g/dL (Low)?? 11/02/2023 02:04 Platelet Count 615 k/mm3 (High)?? 11/02/2023 02:04 RDW-SD 54.9 femtoliters (High)?? 11/02/2023 02:04 MPV 8.2 femtoliters (Low)?? 11/02/2023 02:04 Nucleated RBC (Automated) 0.0 #/100 WBC'S ()?? 11/02/2023 02:04 Abs. NRBC 0.0 k/mm3 ()?? 11/02/2023 02:04 Abs. Neut 5.5 k/mm3 ()?? 10/31/2023 19:46 Abs. Lymph 1.9 k/mm3 ()?? 10/31/2023 19:46 Abs. Blanco 0.7 k/mm3 ()?? 10/31/2023 19:46 Abs. Eo 0.1 k/mm3 ()?? 10/31/2023 19:46 Abs. Baso 0.0 k/mm3 ()?? 10/31/2023 19:46 Neut % 67.5 % ()?? 10/31/2023 19:46 Lymph % 22.7 % ()?? 10/31/2023 19:46 Blanco % 8.0 % ()?? 10/31/2023 19:46 Eos % 0.9 % ()?? 10/31/2023 19:46 Baso % 0.5 % ()?? 10/31/2023 19:46 Imm Gran 0.4 % ()?? 10/31/2023 19:46 Abs. Imm Gran 0.0 k/mm3 ()?? 10/31/2023 19:46 ?? CHEM GENERAL Sodium 137 mmol/L ()?? 10/31/2023 19:46 Potassium 4.3 mmol/L ()?? 10/31/2023 19:46 Chloride 100 mmol/L ()?? 10/31/2023 19:46 Bicarbonate Level 26 mmol/L ()?? 10/31/2023 19:46 Anion Gap 11 ()?? 10/31/2023 19:46 Glucose Level 88 mg/dL ()?? 10/31/2023 19:46 BUN 11 mg/dL ()?? 10/31/2023 19:46 Creatinine-Blood 0.75 mg/dL ()?? 10/31/2023 19:46 Estimated GFR Creatinine 119 ML/MIN/1.73 M2 ()?? 10/31/2023 19:46 Calcium 8.9 mg/dL ()?? 10/31/2023 19:46 C-Reactive Protein 6.4 mg/dL (High)?? 10/31/2023 19:46 ? HEME OTHER Sed Rate >129 mm/hr (High)?? 10/31/2023 19:46 ? MISC. CHEMISTRY Hold Gel Top SPECIMEN DISCARDED AFTER 1 WEEK ()?? 11/02/2023 02:04 ? URINE OTHER Est Creatinine Clearance 164.61 mL/min ()?? 11/04/2023 10:42 ? 45_ minutes spent on discharge * Lashawn Nagy RN: PERFORM Event Display: Patient Education/Instruction Authored Date: [id number] Inpatient Adult Discharge Instructions. [address] [address] Name: ERNESTO MCQUEEN : 1985?? Visit: 10/31/2023 21:48?? Current Date: 11/04/2023 13:25 ?? Account: [id number]?? Inpatient Adult Discharge Instructions We would like [...] and their families. Surveys are administered by [employer] ?? If further treatment with your primary care physician or another doctor is recommended, it is important for you to keep the appointment. Call your primary care physician or return to the Emergency Department immediately if your condition worsens, fails to improve, or new symptoms develop. If you need to find a doctor, you can call [facility] Link for a referral at [phone] or toll free at [phone] [employer] PortFSUTVI ([phone]) or log in to [email or web address].. ?? [facility], in keeping with [facility] guidance, no longer requires face masks for [...] a health care boyd of your choosing. [employer] is a website that allows you to securely view your medical information including your hospital discharge summary, office visit summaries, medications and follow-up visits. You can also request appointments, renew medications, and request access to your medical information using a health care boyd of your choosing, or just ask a question. You can enroll at [email or web address] or register during your next office visit. You have been discharged from [facility], Patient Care Unit: S3??. If you have any questions regarding these instructions, including results of studies pending, afteryou leave, please call us and we will be happy to assist you 03/12. [facility] Your Care Team Attending Physician Efren Arreguin MD?? Consulting Providers Efren Arreguin MD?? Discharging Providers Efren Arreguin MD Reason for Your Visit pt comes from home, reports hip pain in the setting of chronic pressure sores. h/o previous stroke 4 yrs ago; pt's bebdound/right hemiparesis?? Your Diagnosis Chronic pain syndrome Chronic, continuous use of opioids Depression General medical Hidradenitis suppurativa PATY (iron deficiency anemia) Intracardiac thrombus Right spastic hemiparesis Thrombocytosis Tests Performed Below is a partial list of the tests performed during your hospitalization. You may have had other tests and procedures not included in this list. Please discuss all test results with your provider. Basic Metabolic Panel CBC CBC w/ Differential CRP ESR HOLD GEL TUBE No tests performed during this visit.?? Primary Care Provider Derek Tomas MD? Advance Directive Health Care Proxy on File Yes - Health Care Proxy Discharge Vitals Temperature: 98.1 DegF Height: 193 cm Pulse Rate: 63 bpm Weight: 86.3 kg Respiratory Rate: 16 br/min Body Mass Index: 23.17 kg/m2 Respiratory Rate: 16 br/min Body surface area: 2.15 Systolic Blood Pressure: 110 mm Hg ?? Diastolic Blood Pressure:??48 mm Hg??Low ?? Oxygen Saturation: 98 % ?? Studies Pending All studies ordered during this hospital stay have been completed unless listed below. Please discuss all pending results with your provider listed above in these instructions. ?? No incomplete studies found?? What to do next Instructions From Your Doctor ?? Orders??:Cardiac diet :Ambulate with assistance ??3 times a day ??unless otherwise specified Care:Wound Site: Right buttock ??every other day ??Yes Status: ??Full Resuscitation? 11/04/23 12:38:00 EDT?? You Need to Schedule the Following Appointments Follow Up with??Derek Tomas MD When:??Within 3-5 day: call to discuss follow up visit Why: Call office to confirm appointment Where: [address] [place] [address]- Discharge Medications ERNESTO MCQUEEN :1985 Visit Date:10/31/2023 Medications: Please continue your medications until treatment is completed or stopped by your provider. Medications not listed below should be discontinued. Discuss any questions related to medications with your provider. What How Much When Why Instructions Next Dose Changed Oxycodone (OxyCONTIN 20 mg oral tablet, extended release) 20 Milligram Oral Every 8 hours Duration: [facility] 8 hours Unchanged Acetaminophen (acetaminophen 500 mg oral tablet) 2 tab(s) Oral 3 times a day as needed for for pain as needed Unchanged Amlodipine (amLODIPine 5 mg oral tablet) 1 tab(s) Oral Daily 9am 11/04 Unchanged apixaban (Eliquis 5 mg oral tablet) 1 tab(s) Oral Twice a day 11/03 Unchanged Ascorbic Acid (ascorbic acid 500 mg oral tablet) 1 tab(s) Oral Daily 11/04 Unchanged Baclofen (baclofen 20 mg oral tablet) 1 tab(s) Oral 4 times a day 4 X day Unchanged Cholecalciferol (Vitamin D3 1000 intl units oral tablet) 1 tab(s) Oral Daily 11/04 Unchanged Docusate (docusate sodium 100 mg oral capsule) 1 capsule Oral Twice a day 11/03 Unchanged Duloxetine (duloxetine 30 mg oral enteric coated capsule) 1 capsule Oral Twice a day Duration: 30 Days TAKE 1 CAPSULE BY MOUTH EVERY DAY ?? 11/03 Unchanged Durable Medical Equipment (Vashe wound solution) See instructions Hydradenitis Use 45mL daily ?? see instructions Unchanged Ferrous Sulfate (ferrous sulfate 325 mg oral tablet) 1 tab(s) Oral Twice a day 11/03 Unchanged Folic Acid (folic acid 1 mg oral tablet) 1 tab(s) Oral Daily 11/04 Unchanged Gabapentin (gabapentin 600 mg oral tablet) 1 tab(s) Oral 3 times a day 3 X DAY Unchanged Hydroxyurea (hydroxyurea 500 mg oral capsule) 500 Milligram Oral Daily Duration: 30 Days 11/04 Unchanged nalOXONE (Narcan 4 mg/ 0.1 mL nasal spray) 1 spray(s) Nares, Both Once To be used use one spray in one nostril. if an additional dose is needed, alternate nostril. may repeat every 2 to 3 minutes until patient responds ?? See instructions Unchanged Pantoprazole (pantoprazole 40 mg oral delayed release tablet) 1 tab(s) Oral Daily 11/04 Unchanged Tizanidine (tiZANidine 2 mg oral tablet) 2 tab(s) Oral Every 8 hours as needed for as needed for muscle spasm as needed Unchanged Triamcinolone Topical (triamcinolone 0.1% topical cream) 1 boyd Topically Twice a day *DO NOT APPLY TO OPEN WOUND(S)* ?? 11/03 Pharmacy Information [facility]: [address] [place], [place] [id number] [phone] Prescription Given During Visit Oxycodone (OxyCONTIN 20 mg oral tablet, extended release) - 20 mg, By Mouth, Every 8 hours, # 21 each, 0 Refills, [facility], [address] [place] [address] [phone]?? Laboratory Results Below is a partial list of the most recent Laboratory test results done prior to this discharge. You may have had other tests and procedures not included in this list. Please discuss all test resultswith your provider. Est Creatinine Clearance - 164.61 mL/min (11/04/2023) Basic Metabolic Panel (10/31/2023) ???Sodium - 137 mmol/L???Potassium - 4.3 mmol/L???Chloride - 100 mmol/L???Bicarbonate Level - 26 mmol/L???Anion Gap - 11???Glucose Level - 88 mg/dL???BUN - 11 mg/dL???Creatinine-Blood - 0.75 mg/dL???Estimated GFR Creatinine - 119 ML/MIN/1.73 M2???Calcium - 8.9 mg/dL CBC (11/02/2023) ???WBC - 4.9 k/mm3???RBC - 3.15 m/mm3???Hgb - 7.9 Gm/dL???Hct - 26.3 %???MCV - 83.5 femtoliters???MCH - 25.1 pg???MCHC - 30.0 g/dL???Platelet Count - 615 k/mm3???RDW-SD - 54.9 femtoliters???MPV - 8.2femtoliters???Nucleated RBC (Automated) - 0.0 #/100 WBC'S???Abs. NRBC - 0.0 k/mm3 CBC w/ Differential (10/31/2023) ???WBC - 8.2 k/mm3???RBC - 3.31 m/mm3???Hgb - 8.0 Gm/dL???Hct - 27.1 %???MCV - 81.9 femtoliters???MCH - 24.2 pg???MCHC - 29.5 g/dL???Platelet Count - 677 k/mm3???RDW-SD - 54.7 femtoliters???MPV - 8.0femtoliters???Nucleated RBC (Automated) - 0.0 #/100 WBC'S???Abs. NRBC - 0.0 k/mm3???Abs. Neut - 5.5 k/mm3???Abs. Lymph - 1.9 k/mm3???Abs. Blanco - 0.7 k/mm3???Abs. Eo - 0.1 k/mm3???Abs. Baso - 0.0 k/mm3???Neut % - 67.5 %???Lymph % - 22.7 %???Blanco % - 8.0 %???Eos % - 0.9 %???Baso % - 0.5 %???Imm Gran - 0.4 %???Abs. Imm Gran - 0.0 k/mm3 CRP (10/31/2023) ???C-Reactive Protein - 6.4 mg/dL ESR (10/31/2023) ? ?Sed Rate - >129 mm/hr HOLD GEL TUBE (11/02/2023) ???Hold Gel Top - SPECIMEN DISCARDED AFTER 1 WEEK Allergies (NKA means No Known Allergies) NKA [...] Belongings I fully understand and agree that [facility] accepts no responsibility for all [...] patient Date for Pt to Sign Valuables/Belongings: 10/31/23 23:01:00 ?? Other Discharge Information ? Case Management Discharge Plan?? Discharge Plan?? Discharge Agency Information?? Discharge Level of Care at Discharge: Homehealth/VNA Name of Agency #1: [facility] Discharge Transportation Arranged: [facility] [phone] [facility] [phone] Agency Supervisor Machine Workers #1: [phone] Mode of Transportation Arranged: Ambulance Service Categories #1: Home health aide, Occupational Therapy, Physical Therapy, Shower chair Discharge VNA/Hospice/Home Care: [facility] [phone] Service Comments #1: You are being discharged today with [facility]. They will resume their services and contact you to schedule ??a visit. If you don't hear from them call [phone]. ?? Pulmonary Rehab Status?? Pulmonary Rehab Discharge Status?? Respiratory Rate: 16 br/min Respiratory Rate: 16 br/min ? Common Emergency [...] are strongly encouraged to quit. Please call [facility] [employer] Link at [phone] or [phone] or log in to [email or web address] for referrals to smoking cessation programs. ?? 871 Suicide & Crisis Lifeline is available 03/12 if you or someone you know needs to find a reason to keep living. By calling 254 you'll be connected to a skilled, trained counselor at a crisis center in your area. INPATIENT DISCHARGE INSTRUCTIONS SIGNATURE PAGE ERNESTO MCQUEEN Location:[facility] Registration Date and Time:10/31/2023 21:48 EDT Primary Care Physician: Genoveva PAGAN, Derek, Attending Physician: Kallie PAGAN, Efren Caceres, I ERNESTO MCQUEEN, have received the above patient education materials/instructions and have verbalized understanding. If ambulance or transport services are being used I further acknowledge being given a choice of service. ?? If you need to contact me, please call me at this number: . Patient/Bullard Machine Operator Name: Patient/Bullard Machine Operator Signature: Relationship to Patient: Witness [...] HOSPITAL Resident Member Role: PCP Address: Address: [address] [place] [address] Name: Mari Suh RN Position: [facility] RN Member Role: Primary Care Nurse Name: Monique Irwin LPN Position: [facility] RN Member Role: Primary Care Nurse Name: Lianna Epstein RN Position: [facility] RN Member Role: Primary Care Nurse Name: Mk Knutson LPN Position: [facility] RN Member Role: Primary Care Nurse Name: Betty Fonseca RN Position: [facility] RN Member Role: Primary Care Nurse Name: Farhana Garcia RN Position: [facility] RN Member Role: Primary Care Nurse Name: Kenyatta Villegas RN Position: [facility] RN Member Role: Primary Care Nurse Name: Albertina Adams RN Position: [facility] RN Member [...] Care Nurse Name: Debbie Rios RN Position: S RN Member Role: Primary Care Nurse Name: Sharon Mendez RN Position: [facility] RN Member Role: Primary Care Nurse Name: Mookie Christianson RN Position: [facility] RN Member Role: Primary Care Nurse Name: Ally Boyd RN Position: [facility] RN Member Role: Primary Care Nurse Name: Javde Oneill RN Position: [facility] RN Member Role: Primary Care Nurse Name: Sandie Mejia RN Position: [facility] RN Member [...] Care Nurse Name: Praveen Maurer RN Position: [facility] RN Member Role: Primary Care Nurse Name: Filemon King RN Position: [facility] RN Member Role: Primary Care Nurse Name: Gomez Corona RN Position: [facility] RN Member Role: Primary Care Nurse Name: Lauren Guevara RN Position: [facility] RN Member Role: Primary Care Nurse Name: Annamaria Quinn RN Position: [facility] RN Member Role: Primary Care Nurse Name: Lashawn Nagy RN Position: [facility] RN Member Role: Primary Care Nurse Name: Rhonda Tate LPN Position: [facility] RN Member Role: Primary Care Nurse Name: Jacquelin Naranjo RN Position: [facility] RN Member Role: Primary Care Nurse Name: Glenys Fox RN Position: [facility] RN Member Role: Primary Care Nurse Care Team Related Persons Name: BEVERLY REYNAGA Address: home [address], [place] Name: HEENA MCQUEEN Address: home [address] [place], [place] Name: AISLINN DE LA PAZ Address: home [address] [place] [address]
--- OUTSIDE RECORDS SUMMARY | 2024-01-21 19:33 | XMS_ITS | Continuity of Care Document ---
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 Start Date: 09/06/23 Status: Ordered baclofen 20 mg oral tablet 20 mg, 1, tablet, By Mouth, 4 times a day, # 120 tablet, Refills 5, Tot. Refills 5, Maintenance, 08/06/23 9:00:00 EDT, Route to Pharmacy Electronically, [facility]/pharmacy #[id number], 182, cm, 07/26/23 9:16:00 EDT, Height, 89, kg, 07/03/23 11:22:00 EST, Dry Weight Start Date: 08/06/23 Status: Ordered docusate sodium 100 mg oral capsule 1 capsule, By Mouth, 2 times a day, # 60 capsule, 11 Refills, Maintenance, 09/03/23 17:44:00 EDT, [id number], 193, cm, 09/03/23 14:09:00 EDT, Height, 91.4, kg, 08/30/23 12:03:00 EDT, Dry Weight Start Date: 09/03/23 Status: Ordered duloxetine 30 mg oral enteric coated capsule 1 capsule = 30 mg, By Mouth, Daily, TAKE 1 CAPSULE BY MOUTH EVERY DAY, # 30 capsule, 6 Refills, Maintenance, 09/03/23 17:47:00 EDT, Capsule, [facility]/pharmacy #[id number], Partial fill upon patient request if the prescription is for a schedule II opioid drug., 1... Start Date: 09/03/23 Stop Date: 03/31/24 Status: Ordered Eliquis 5 mg oral tablet See Instructions, TAKE 1 TABLET BY MOUTH TWICE A DAY, # 60 tablet, 11 Refills, Maintenance, 06/12/23 6:31:00 EST, [id number], 193, cm, 06/01/23 9:54:00 EST, Height, 90.9, kg, 06/01/23 9:54:00 EST, Dry Weight Start Date: 06/12/23 Status: Ordered ferrous sulfate 325 mg oral tablet 1 tablet = 325 mg, By Mouth, 2 times a day, TAKE 1 TABLET BY MOUTH EVERY DAY, # 180 tablet, 0 Refills, Maintenance, 08/14/23 12:47:00 EDT, Tablet, [facility]/pharmacy #[id number], Partial fill upon patient request [...] 06/12/23 6:46:00 EST, Route to Pharmacy Electronically, [facility]/pharmacy #[id number], Partial fill upon... Start Date: 06/12/23 Status: Ordered gabapentin 600 mg oral tablet 1 tablet = 600 mg, By Mouth, 3 times a day, # 90 tablet, 11 Refills, Maintenance, 08/12/23 13:51:00EDT, Tablet, [facility]/pharmacy #[id number], Partial fill upon patient request if the prescription is for a schedule II opioid drug., frank Mitchell, 07/26/23 9:16:00 EDT... Start Date: 08/12/23 Status: Ordered hydroxyurea 500 mg oral capsule = 500 mg, By Mouth, Daily, for 30 days, # 30 capsule, 2 Refills, Acute 10/18/23 14:36:00 EDT, 07/20/23 14:36:00 EST, Capsule, [facility]/pharmacy #[id number], Partial fill upon patient request if the prescriptionis for a schedule II opioid drug., frank Mitchell, ... Start Date: 07/20/23 Stop Date: 10/18/23 Status: Ordered MiraLax oral powder for reconstitution = 17 Gm, By Mouth, Daily, PRN Constipation, for 30 days, # 30 each, 0 Refills, Acute 10/06/23 12:41:00 EDT, 09/06/23 12:41:00 EDT, REC Powder, [facility]/pharmacy #[id number], Partial fill upon patient request [...] 08/12/23 13:51:00 EDT, Route to Pharmacy Electronically, [facility]/pharmacy #[id number], Partial fill upon patient request if the [...] apex Confirmed Active [facility] BHCP Care Management, Cherry Cutter Carmen Elizabeth [phone] Confirmed Active Therapeutic drug monitoring Confirmed Active [...] Care Nurse Name: Areli Pittman RN Position: [facility] ED RN W/OE and Tasks Member Role: Primary Care Nurse Name: Derek Tomas MD Position: [facility] Resident Member Role: PCP Address: Address: [address] [place] [address] Name: Monique Irwin LPN Position: [facility] RN Member Role: Primary Care Nurse Name: Lianna Epstein RN Position: [facility] RN Member Role: Primary Care Nurse Name: Vicenta Barnett RN Position: [facility] RN Member Role: Primary Care Nurse Name: Farhana Garcia RN Position: [facility] RN Member Role: Primary Care Nurse Name: Ricardo Russell RN Position: [facility] RN Member Role: Primary Care Nurse Name: Gissell Jernigan RN Position: [facility] RN Member Role: Primary Care Nurse Name: Farhana Green RN Position: [facility] RN Member Role: Primary Care Nurse Name: Cydney Delgado RN Position: [facility] RN Member Role: Primary Care Nurse Name: Sharon Mendez RN Position: [facility] RN Member Role: Primary Care Nurse Name: Mookie Christianson RN Position: [facility] RN Member Role: Primary Care Nurse Name: Ally Boyd RN Position: [facility] RN Member Role: Primary Care Nurse Name: Javed Oneill RN Position: [facility] RN Member Role: Primary Care Nurse Name: Lynn Stewart RN Position: [facility] RN Member Role: Primary Care Nurse Name: Amanda Johnson RN Position: [facility] RN Member Role: Primary Care Nurse Name: Jolie Villalobos RN Position: [facility] RN Member Role: Primary Care Nurse Name: Axel Savage RN Position: [facility] RN Member Role: Primary Care Nurse Name: Dirk Driver RN Position: [facility] RN Member Role: Primary Care Nurse Name: Glenys Bee RN Position: [facility] RN Member Role: Primary Care Nurse Name: Praveen Maurer Position: [facility] RN Member Role: Primary Care Nurse Name: Filemon King RN Position: [facility] RN Member Role: Primary Care Nurse Name: Lauren Guevara RN Position: [facility] RN Member Role: Primary Care Nurse Name: Annamaria Quinn RN Position: [facility] RN Member Role: Primary Care Nurse Name: Jada Waller RN Position: [facility] RN Member Role: Primary Care Nurse Name: Lashawn Nagy RN Position: [facility] RN Member Role: Primary Care Nurse Name: Glenys Fox RN Position: [facility] RN Member Role: Primary Care Nurse Care Team Related Persons Name: BEVERLY REYNAGA Address: [place] [address] Name: AISLINN DE LA PAZ Address: home [address] [place] [id number]
--- OUTSIDE RECORDS SUMMARY | 2024-01-21 19:33 | XMS_ITS | Continuity of Care Document ---
Author Organization [facility] Address [address] [place] [address]- Care Team Providers Care Compensation Coordinator Name Role Phone Genoveva PAGAN, Derek Primary Care Physician Encounter [facility] [place](s): 08/29/23 - 09/28/[address] [address]- Allergies, Adverse Reactions, Alerts No Known Allergies Immunizations Given and Recorded Vaccine Date Status Refusal Reason influenza virus vaccine, inactivated 05/18/22 Give n tetanus/diphtheria/pertussis, acel(Tdap) 09/13/19 Recorded Medications amLODIPine 5 mg oral tablet 5 mg, 1, tablet, By Mouth, Daily, # 30 tablet, Refills 0, Tot. Refills 0, Maintenance, 06/17/23 8:53:00 EST, Route to Pharmacy Electronically, [facility], Partial fill upon patient request if the prescription is for a schedule II opioid... Start Date: 06/17/23 Status: Ordered ascorbic acid 500 mg oral tablet 1 tablet = 500 mg, By Mouth, Daily, # 30 tablet, 0 Refills, Maintenance, 09/06/23 12:42:00 EDT, Tablet, [facility]/pharmacy #[id number], Partial fill upon patient request if the prescription is for a schedule II opioid drug., 193, cm, 09/05/23 19:48:00 EDT, Height... Start Date: 09/06/23 Status: Ordered baclofen 20 mg oral tablet 20 mg, 1, tablet, By Mouth, 4 times a day, # 120 tablet, Refills 5, Tot. Refills 5, Maintenance, 08/06/23 9:00:00 EDT, Route to Pharmacy Electronically, [facility]/pharmacy #[id number], 182, cm, 07/26/23 9:16:00 EDT, Height, 89, kg, 07/03/23 11:22:00 EST, Dry Weight Start Date: 08/06/23 Status: Ordered docusate sodium 100 mg oral capsule 1 capsule, By Mouth, 2 times a day, # 60 capsule, 11 Refills, Maintenance, 09/03/23 17:44:00 EDT, [id number], 193, cm, 09/03/23 14:09:00 EDT, Height, 91.4, kg, 08/30/23 12:03:00 EDT, Dry Weight Start Date: 09/03/23 Status: Ordered duloxetine 30 mg oral enteric coated capsule 1 capsule = 30 mg, By Mouth, Daily, TAKE 1 CAPSULE BY MOUTH EVERY DAY, # 30 capsule, 6 Refills, Maintenance, 09/03/23 17:47:00 EDT, Capsule, [facility]/pharmacy #[id number], Partial fill upon patient [...] tablet, 11 Refills, Maintenance, 08/12/23 13:51:00EDT, Tablet, [facility]/pharmacy #[id number], Partial fill upon patient request if the prescription is for a schedule II opioid drug., 182, cm, 07/26/23 9:16:00 EDT... Start Date: 08/12/23 Status: Ordered hydroxyurea 500 mg oral capsule = 500 mg, By Mouth, Daily, for 30 days, # 30 capsule, 2 Refills, Acute 10/18/23 14:36:00 EDT, 07/20/23 14:36:00 EST, Capsule, [facility]/pharmacy #[id number], Partial fill upon patient request if the prescriptionis for a schedule II opioid drug., 182, cm, ... Start Date: 07/20/23 Stop Date: 10/18/23 Status: Ordered MiraLax oral powder for reconstitution = 17 Gm, By Mouth, Daily, PRN Constipation, for 30 days, # 30 each, 0 Refills, Acute 10/06/23 12:41:00 EDT, 09/06/23 12:41:00 EDT, REC Powder, [facility]/pharmacy #[id number], Partial fill upon patient [...] 08/12/23 13:51:00 EDT, Route to Pharmacy Electronically, [facility]/pharmacy #[id number], Partial fill upon patient request if the [...] Refills, Maintenance, 07/16/23 10:05:00 EST, Tablet, [facility], Partial fill upon [...] apex Confirmed Active [facility] CP Care Management, Director Of Aviation Carmen Elizabeth [phone] Confirmed Active Therapeutic drug monitoring Confirmed Active Peripheral neuropathy Confirmed Active Right spastic hemiparesis Confirmed Active Spasticity Confirmed Active Tobacco dependence Confirmed Active Social History Social History Type Response Smoking Status 5-9 cigarettes (betw een 1/4 to 1/2 pack)/day in last 30 days entered on: 05/16/22 Sex Patient Care team information Care Team Personnel Name: Anu Lipscomb Ann Position: [facility] RN Member Role: Primary Care Nurse Name: Jeanne Bryant RN Position: [facility] RN Member Role: Primary Care Nurse Name: Areli Pittman RN Position: [facility] ED RN W/OE and Tasks Member Role: Primary Care Nurse Name: Derek Tomas MD Position: [facility] Resident Member Role: PCP Address: Address: [address] [place] [address] Name: Monique Irwin LPN Position: [facility] RN Member Role: Primary Care Nurse Name: Lianna Epstein RN Position: [facility] RN Member Role: Primary Care Nurse Name: Vicenta Barnett RN Position: [facility] RN Member Role: Primary Care Nurse Name: Farhana Garcia RN Position: [facility] RN Member Role: Primary Care Nurse Name: Ricardo Russell RN Position: [facility] RN Member Role: Primary Care Nurse Name: Gissell Jernigan RN Position: [facility] RN Member Role: Primary Care Nurse Name: Farhana Green RN Position: [facility] RN Member Role: Primary Care Nurse Name: Cydney Delgado RN Position: [facility] RN Member Role: Primary Care Nurse Name: Sharon Mendez RN Position: [facility] RN Member Role: Primary Care Nurse Name: Mookie Christianson RN Position: [facility] RN Member Role: Primary Care Nurse Name: Ally Boyd RN Position: [facility] RN Member Role: Primary Care Nurse Name: Javed Oneill RN Position: [facility] RN Member Role: Primary Care Nurse Name: Lynn Stewart RN Position: [facility] RN Member Role: Primary Care Nurse Name: Amanda Johnson RN Position: [facility] RN Member Role: Primary Care Nurse Name: Jolie Villalobos RN Position: [facility] RN Member Role: Primary Care Nurse Name: Axel Savage RN Position: [facility] RN Member Role: Primary Care Nurse Name: Dirk Driver RN Position: [facility] RN Member Role: Primary Care Nurse Name: Glenys Bee RN Position: [facility] RN Member Role: Primary Care Nurse Name: Praveen Maurer Position: [facility] RN Member Role: Primary Care Nurse Name: Filemon King RN Position: [facility] RN Member Role: Primary Care Nurse Name: Lauren Guevara RN Position: S RN Member Role: Primary Care Nurse Name: Annamaria Quinn RN Position: [facility] RN Member Role: Primary Care Nurse Name: Jada Waller RN Position: S RN Member Role: Primary Care Nurse Name: Lashawn Nagy RN Position: [facility] RN Member Role: Primary Care Nurse Name: Jacquelin Naranjo RN Position: [facility] RN Member Role: Primary Care Nurse Name: Glenys Fox RN Position: [facility] RN Member Role: Primary Care Nurse Care Team Related Persons Name: JUHI BEVERLY Address: [place] [address] Name: AISLINN DE LA PAZ Address: home [address] [place] [address]
--- OUTSIDE RECORDS SUMMARY | 2024-01-21 19:33 | XMS_ITS | Continuity of Care Document ---
Author Organization [facility] Address [address] [place] [address]- Care Team Providers Care Commercial Account Executive Name Role Phone Genoveva PAGAN, Derek Primary Care Physician Encounter [facility] [place] Date(s): 08/16/23 - 09/15/[address] [address]- Allergies, Adverse Reactions, Alerts No Known Allergies [...] 0 Refills, Maintenance, 09/06/23 12:42:00 EDT, Tablet, [facility]/pharmacy #[id number], Partial fill upon patient request if the prescription is for a schedule II opioid drug., 193, cm, 09/05/23 19:48:00 EDT, Height... Start Date: 09/06/23 Status: Ordered baclofen 20 mg oral tablet 20 mg, 1, tablet, By Mouth, 4 times a day, # 120 tablet, Refills 5, Tot. Refills 5, Maintenance, 08/06/23 9:00:00 EDT, Route to Pharmacy Electronically, [facility]/pharmacy #[id number], 182, cm, 07/26/23 9:16:00 EDT, Height, 89, kg, 07/03/23 11:22:00 EST, Dry Weight Start Date: 08/06/23 Status: Ordered docusate sodium 100 mg oral capsule 1 capsule, By Mouth, 2 times a day, # 60 capsule, 11 Refills, Maintenance, 09/03/23 17:44:00 EDT, [facility], 193, cm, 09/03/23 14:09:00 EDT, Height, 91.4, kg, 08/30/23 12:03:00 EDT, Dry Weight Start Date: 09/03/23 Status: Ordered duloxetine 30 mg oral enteric coated capsule 1 capsule = 30 mg, By Mouth, Daily, TAKE 1 CAPSULE BY MOUTH EVERY DAY, # 30 capsule, 6 Refills, Maintenance, 09/03/23 17:47:00 EDT, Capsule, [facility]/pharmacy #[id number], Partial fill upon patient request if the prescription is for a schedule II opioid drug., 1... Start Date: 09/03/23 Stop Date: 03/31/24 Status: Ordered Eliquis 5 mg oral tablet See Instructions, TAKE 1 TABLET BY MOUTH TWICE A DAY, # 60 tablet, 11 Refills, Maintenance, 06/12/23 6:31:00 EST, [id number], 193, cm, 06/01/23 9:54:00 EST, Height, 90.9, kg, 06/01/23 9:54:00 EST, Dry Weight Start Date: 06/12/23 Status: Ordered ferrous sulfate 325 mg oral tablet 1 tablet = 325 mg, By Mouth, 2 times a day, TAKE 1 TABLET BY MOUTH EVERY DAY, # 180 tablet, 0 Refills, Maintenance, 08/14/23 12:47:00 EDT, Tablet, [facility]/pharmacy #[id number], Partial fill upon [...] 06/12/23 6:46:00 EST, Route to Pharmacy Electronically, [facility]/pharmacy #[id number], Partial fill upon... Start Date: 06/12/23 Status: Ordered gabapentin 600 mg oral tablet 1 tablet = 600 mg, By Mouth, 3 times a day, # 90 tablet, 11 Refills, Maintenance, 08/12/23 13:51:00EDT, Tablet, [facility]/pharmacy #[id number], Partial fill upon patient request if the prescription is for a schedule II opioid drug., frank Mitchell, 07/26/23 9:16:00 EDT... Start Date: 08/12/23 Status: Ordered hydroxyurea 500 mg oral capsule = 500 mg, By Mouth, Daily, for 30 days, # 30 capsule, 2 Refills, Acute 10/18/23 14:36:00 EDT, 07/20/23 14:36:00 EST, Capsule, [facility]/pharmacy #[id number], Partial fill upon patient request if the prescriptionis for a schedule II opioid drug., frank Mitchell, ... Start Date: 07/20/23 Stop Date: 10/18/23 Status: Ordered MiraLax oral powder for reconstitution = 17 Gm, By Mouth, Daily, PRN Constipation, for 30 days, # 30 each, 0 Refills, Acute 10/06/23 12:41:00 EDT, 09/06/23 12:41:00 EDT, REC Powder, [facility]/pharmacy #[id number], Partial fill upon [...] 08/12/23 13:51:00 EDT, Route to Pharmacy Electronically, [facility]/pharmacy #[id number], Partial fill upon patient request if the [...] 0 Refills, Maintenance, 07/16/23 10:05:00 EST, Tablet, [facility], Partial [...] apex Confirmed Active [facility] BHCP Care Management, Skinning Machine Feeder Carmen Elizabeth [phone] Confirmed Active Therapeutic drug monitoring Confirmed Active [...] Care Nurse Name: Areli Pittman RN Position: [facility] ED RN W/OE and Tasks Member Role: Primary Care Nurse Name: Derek Tomas MD Position: [facility] Resident Member Role: PCP Address: Address: [address] [place] [address] Name: Moniqeu Irwin LPN Position: [facility] RN Member Role: Primary Care Nurse Name: Lianna Epstein RN Position: [facility] RN Member Role: Primary Care Nurse Name: Vicenta Barnett RN Position: [facility] RN Member Role: Primary Care Nurse Name: Farhana Garcia RN Position: [facility] RN Member Role: Primary Care Nurse Name: Ricardo Russell RN Position: [facility] RN Member Role: Primary Care Nurse Name: Gissell Jernigan RN Position: [facility] RN Member Role: Primary Care Nurse Name: Farhana Green RN Position: [facility] RN Member Role: Primary Care Nurse Name: Cydney Delgado RN Position: [facility] RN Member Role: Primary Care Nurse Name: Sharon Mendez RN Position: [facility] RN Member Role: Primary Care Nurse Name: Mookie Christianson RN Position: [facility] RN Member Role: Primary Care Nurse Name: Ally Boyd RN Position: [facility] RN Member Role: Primary Care Nurse Name: Javed Oneill RN Position: [facility] RN Member Role: Primary Care Nurse Name: Lynn Stewart RN Position: [facility] RN Member Role: Primary Care Nurse Name: Amanda Johnson RN Position: [facility] RN Member Role: Primary Care Nurse Name: Jolie Villalobos RN Position: [facility] RN Member Role: Primary Care Nurse Name: Axel Savage RN Position: [facility] RN Member Role: Primary Care Nurse Name: Dirk Driver RN Position: [facility] RN Member Role: Primary Care Nurse Name: Glenys Bee RN Position: [facility] RN Member Role: Primary Care Nurse Name: Praveen Maurer Position: [facility] RN Member Role: Primary Care Nurse Name: Filemon King RN Position: [facility] RN Member Role: Primary Care Nurse Name: Lauren Guevara RN Position: [facility] RN Member Role: Primary Care Nurse Name: Annamaria Quinn RN Position: [facility] RN Member Role: Primary Care Nurse Name: Jada Waller RN Position: [facility] RN Member Role: Primary Care Nurse Name: Lashawn Nagy RN Position: [facility] RN Member Role: Primary Care Nurse Name: Glenys Fox RN Position: [facility] RN Member Role: Primary Care Nurse Care Team Related Persons Name: BEVERLY REYNAGA Address: [place] [address] Name: AISLINN DE LA PAZ Address: home [address] [place] [id number]
--- OUTSIDE RECORDS SUMMARY | 2024-01-21 19:33 | XMS_ITS | Continuity of Care Document ---
Author Organization [facility] Address [address] [place] [address]- Care Team Providers Care Care Management Coordinator Name Role Phone Genoveva PAGAN, Derek Primary Care Physician Encounter [facility] Date(s): 08/26/23 - 09/25/[address] [address]- Allergies, Adverse Reactions, Alerts No Known Allergies Immunizations Given and Recorded Vaccine Date Status Refusal Reason influenza virus vaccine, inactivated 05/18/22 Give n tetanus/diphtheria/pertussis, acel(Tdap) 09/13/19 Recorded Medications amLODIPine 5 mg oral tablet 5 mg, 1, tablet, By Mouth, Daily, # 30 tablet, Refills 0, Tot. Refills 0, Maintenance, 06/17/23 8:53:00 EST, Route to Pharmacy Electronically, [facility], Partial fill upon patient request if the prescription is for a schedule II opioid... Start Date: 06/17/23 Status: Ordered ascorbic acid 500 mg oral tablet 1 tablet = 500 mg, By Mouth, Daily, # 30 tablet, 0 Refills, Maintenance, 09/06/23 12:42:00 EDT, Tablet, [facility]/pharmacy #[id number], Partial fill upon patient request if the prescription is for a schedule II opioid drug., 193, cm, 09/05/23 19:48:00 EDT, Height... Start Date: 09/06/23 Status: Ordered baclofen 20 mg oral tablet 20 mg, 1, tablet, By Mouth, 4 times a day, # 120 tablet, Refills 5, Tot. Refills 5, Maintenance, 08/06/23 9:00:00 EDT, Route to Pharmacy Electronically, [facility]/pharmacy #[id number], 182, cm, 07/26/23 9:16:00 EDT, Height, 89, kg, 07/03/23 11:22:00 EST, Dry Weight Start Date: 08/06/23 Status: Ordered docusate sodium 100 mg oral capsule 1 capsule, By Mouth, 2 times a day, # 60 capsule, 11 Refills, Maintenance, 09/03/23 17:44:00 EDT, [id number], 193, cm, 09/03/23 14:09:00 EDT, Height, 91.4, kg, 08/30/23 12:03:00 EDT, Dry Weight Start Date: 09/03/23 Status: Ordered duloxetine 30 mg oral enteric coated capsule 1 capsule = 30 mg, By Mouth, Daily, TAKE 1 CAPSULE BY MOUTH EVERY DAY, # 30 capsule, 6 Refills, Maintenance, 09/03/23 17:47:00 EDT, Capsule, [facility]/pharmacy #[id number], Partial fill upon [...] 11 Refills, Maintenance, 08/12/23 13:51:00EDT, Tablet, [facility]/pharmacy #[id number], Partial fill upon patient request if the prescription is for a schedule II opioid drug., 182, cm, 07/26/23 9:16:00 EDT... Start Date: 08/12/23 Status: Ordered hydroxyurea 500 mg oral capsule = 500 mg, By Mouth, Daily, for 30 days, # 30 capsule, 2 Refills, Acute 10/18/23 14:36:00 EDT, 07/20/23 14:36:00 EST, Capsule, [facility]/pharmacy #[id number], Partial fill upon patient request if the prescriptionis for a schedule II opioid drug., 182, cm, ... Start Date: 07/20/23 Stop Date: 10/18/23 Status: Ordered MiraLax oral powder for reconstitution = 17 Gm, By Mouth, Daily, PRN Constipation, for 30 days, # 30 each, 0 Refills, Acute 10/06/23 12:41:00 EDT, 09/06/23 12:41:00 EDT, REC Powder, [facility]/pharmacy #[id number], Partial fill upon patient request ifthe [...] 0 Refills, Soft Stop, 08/23/23 15:54:00 EDT, [facility] Start Date: 08/23/23 Status: Ordered oxyCODONE 20 mg oral tablet 1 tablet = 20 mg, By Mouth, Every 6 hours, PRN as needed for pain, for 3 days, # 12 tablet, 0 Refills, Acute 09/27/23 9:42:00 EDT, 09/24/23 9:42:00 EDT, Tablet, [facility], Partial fillupon patient request if [...] 13:51:00 EDT, Route to Pharmacy Electronically, [facility]/pharmacy #[id number], Partial fill upon patient request if the [...] 0 Refills, Maintenance, 07/16/23 10:05:00 EST, Tablet, [facility], Partial fill upon patient [...] apex Confirmed Active N CP Care Management, Quality Assurance Assessor Carmen Elizabeth [phone] Confirmed Active Therapeutic drug monitoring Confirmed Active Peripheral neuropathy Confirmed Active Right spastic hemiparesis Confirmed Active Spasticity Confirmed Active Tobacco dependence Confirmed Active Social History Social History Type Response Smoking Status 5-9 cigarettes (betw een 1/4 to 1/2 pack)/day in last 30 days entered on: 05/16/22 Sex Patient Care team information Care Team Personnel Name: Anu Lipscomb Position: [facility] RN Member Role: Primary Care Nurse Name: Jeanne Bryant RN Position: [facility] RN Member Role: Primary Care Nurse Name: Areli Pittman RN Position: [facility] ED RN W/OE and Tasks Member Role: Primary Care Nurse Name: Derek Tomas MD Position: [facility] Resident Member Role: PCP Address: Address: [address] [place] [address] Name: Monique Irwin LPN Position: [facility] RN Member Role: Primary Care Nurse Name: Lianna Epstein RN Position: [facility] RN Member Role: Primary Care Nurse Name: Vicenta Barnett RN Position: [facility] RN Member Role: Primary Care Nurse Name: Farhana Garcia RN Position: [facility] RN Member Role: Primary Care Nurse Name: Ricardo Russell RN Position: [facility] RN Member Role: Primary Care Nurse Name: Gissell Jernigan RN Position: [facility] RN Member Role: Primary Care Nurse Name: Farhana Green RN Position: [facility] RN Member Role: Primary Care Nurse Name: Cydney Delgado RN Position: [facility] RN Member Role: Primary Care Nurse Name: Sharon Mendez RN Position: [facility] RN Member Role: Primary Care Nurse Name: Mookie Christianson RN Position: [facility] RN Member Role: Primary Care Nurse Name: Ally Boyd RN Position: [facility] RN Member Role: Primary Care Nurse Name: Javed Oneill RN Position: [facility] RN Member Role: Primary Care Nurse Name: Lynn Stewart RN Position: [facility] RN Member Role: Primary Care Nurse Name: Amanda Johnson RN Position: [facility] RN Member Role: Primary Care Nurse Name: Jolie Villalobos RN Position: [facility] RN Member Role: Primary Care Nurse Name: Axel Savage RN Position: [facility] RN Member Role: Primary Care Nurse Name: Dirk Driver RN Position: [facility] RN Member Role: Primary Care Nurse Name: Glenys Bee RN Position: [facility] RN Member Role: Primary Care Nurse Name: Praveen Maurer Position: [facility] RN Member Role: Primary Care Nurse Name: Filemon King RN Position: [facility] RN Member Role: Primary Care Nurse Name: Lauren Guevara RN Position: [facility] RN Member Role: Primary Care Nurse Name: Annamaria Quinn RN Position: [facility] RN Member Role: Primary Care Nurse Name: Jada Waller RN Position: [facility] RN Member Role: Primary Care Nurse Name: Lashawn Nagy RN Position: [facility] RN Member Role: Primary Care Nurse Name: Jacquelin Naranjo RN Position: [facility] RN Member Role: Primary Care Nurse Name: Glenys Fox RN Position: [facility] RN Member Role: Primary Care Nurse Care Team Related Persons Name: JUHI BEVERLY Address: [place] [address] Name: AISLINN DE LA PAZ Address: home [address] [place] [address]
--- OUTSIDE RECORDS SUMMARY | 2024-01-21 19:33 | XMS_ITS | Continuity of Care Document ---
Author Organization [facility] Address [address] [place] [address]- Care Team Providers Care Sustainability Officer Name Role Phone Genoveva PAGAN, Derek Primary Care Physician Encounter 10/24/23 - 12/18/23 [facility] [address] [place] [address]- Discharge Disposition: [facility] Allergies, Adverse Reactions, Alerts No Known Allergies Immunizations Given and Recorded Vaccine Date Status Refusal Reason influenza virus vaccine, inactivated 05/18/22 Give n tetanus/diphtheria/pertussis, acel(Tdap) 09/13/19 Recorded Medications acetaminophen 500 mg oral tablet 2 tablet = 1,000 mg, By Mouth, 3 times a day, PRN for pain, # 100 tablet, 6 Refills, Acute 05/12/2415:40:00 EST, 10/25/23 15:40:00 EDT, Tablet, [facility]/pharmacy #[id number], Partial fill upon patient request if the prescription is for a schedule II opioid drug... Start Date: 10/25/23 Stop Date: 05/12/24 Status: Ordered amLODIPine 5 mg oral tablet 5 mg, 1, tablet, By Mouth, Daily, # 30 tablet, Refills 0, Tot. Refills 0, Maintenance, 06/17/23 8:53:00 EST, Route to Pharmacy Electronically, [facility], Partial fill upon patient request if the prescription is for a schedule II opioid... Start Date: 06/17/23 Status: Ordered ascorbic acid 500 mg oral tablet 1 tablet = 500 mg, By Mouth, Daily, # 30 tablet, 0 Refills, Maintenance, 09/06/23 12:42:00 EDT, Tablet, [facility]/pharmacy #[id number], Partial fill upon patient request if the prescription is for a schedule II opioid drug., 193, cm, 09/05/23 19:48:00 EDT, Height... Start Date: 09/06/23 Status: Ordered baclofen 20 mg oral tablet 20 mg, 1, tablet, By Mouth, 4 times a day, # 120 tablet, Refills 5, Tot. Refills 5, Maintenance, 08/06/23 9:00:00 EDT, Route to Pharmacy Electronically, [facility]/pharmacy #[id number], 182, cm, 07/26/23 9:16:00 EDT, Height, 89, kg, 07/03/23 11:22:00 EST, Dry Weight Start Date: 08/06/23 Status: Ordered clindamycin 1% topical gel APPLY TO AFFECTED AREA TOPICALLY TWICE A DAY Start Date: 11/17/23 Status: Ordered docusate sodium 100 mg oral capsule 1 capsule, By Mouth, 2 times a day, # 60 capsule, 11 Refills, Maintenance, 09/03/23 17:44:00 EDT, [facility], 193, cm, 09/03/23 14:09:00 EDT, Height, 91.4, kg, 08/30/23 12:03:00 EDT, Dry Weight Start Date: 09/03/23 Status: Ordered duloxetine 30 mg oral enteric coated capsule 1 capsule = 30 mg, By Mouth, 2 times a day, TAKE 1 CAPSULE BY MOUTH EVERY DAY, # 60 capsule, 6 Refills, Maintenance, 10/25/23 15:39:00 EDT, Capsule, [facility]/pharmacy #[id number], Partial fill upon [...] 0 Refills, Maintenance, 10/16/23 15:51:00 EDT, [id number], 193, cm, 10/04/23 3:49:00 EDT, Height, 90.4, [...] tablet, 11 Refills, Maintenance, 08/12/23 13:51:00EDT, Tablet, [facility]/pharmacy #[id number], Partial fill upon patient request if the prescription is for a schedule II opioid drug., 182, cm, 07/26/23 9:16:00 EDT... Start Date: 08/12/23 Status: Ordered hydroxyurea 500 mg oral capsule 1 capsule, By Mouth, Daily, # 30 capsule, 0 Refills, Maintenance, 12/11/23 14:15:00 EDT, [facility], 194, cm, 11/20/23 13:14:00 EDT, Height, 93.9, [...] 12/24/23 13:33:00 EDT, 11/26/23 13:33:00 EDT, Tablet, [facility]/pharmacy #[id number], Partial [...] 08/12/23 13:51:00 EDT, [facility] Pharm[facility] Electronically, [facility] 0 Refills, Maintenance, 07/16/23 10:05:00 EST, Tablet, [facility], Partial fill upon patient [...] Team Personnel Name: Anu Lipscomb RN Position: [facility] RN Member Role: Primary Care Nurse Name: Jeanne Bryant RN Position: [facility] RN Member Role: Primary Care Nurse Name: Mitch Guido RN Position: [facility] RN Member Role: Primary Care Nurse Name: Areli Pittman RN Position: [facility] ED RN W/OE and Tasks Member Role: Primary Care Nurse Name: Derek Tomas MD Position: [facility] Resident Member Role: PCP Address: Address: [address] [place] [address] Name: Mari Suh RN Position: [facility] RN Member Role: Primary Care Nurse Name: Monique Irwin LPN Position: [facility] RN Member Role: Primary Care Nurse Name: Lianna Epstein RN Position: [facility] RN Member Role: Primary Care Nurse Name: Austin Wright RN Position: [facility] RN Member Role: Primary Care Nurse Name: Mk Knutson LPN Position: [facility] RN Member Role: Primary Care Nurse Name: Betty Fonseca RN Position: [facility] RN Member Role: Primary Care Nurse Name: Farhana Garcia RN Position: [facility] RN Member Role: Primary Care Nurse Name: Kenyatta Villegas RN Position: [facility] RN Member Role: Primary Care Nurse Name: Albertina Adams RN Position: [facility] RN Member Role: Primary Care Nurse Name: Ricardo Russell RN Position: [facility] RN Member Role: Primary Care Nurse Name: Gissell Jernigan RN Position: [facility] RN Member Role: Primary Care Nurse Name: Farhana Green RN Position: [facility] RN Member Role: Primary Care Nurse Name: Cydney Delgado RN Position: [facility] RN Member Role: Primary Care Nurse Name: Debbie Rios RN Position: [facility] RN Member Role: Primary Care Nurse Name: Sharon Mendez RN Position: [facility] RN Member Role: Primary Care Nurse Name: Mookie Christianson RN Position: [facility] RN Member Role: Primary Care Nurse Name: Ally Boyd RN Position: [facility] RN Member Role: Primary Care Nurse Name: Javed Oneill RN Position: [facility] RN Member Role: Primary Care Nurse Name: Frances Quach RN Position: [facility] RN Member Role: Primary Care Nurse Name: Sandie Mejia RN Position: [facility] RN Member Role: Primary Care Nurse Name: Kriss Castillo RN Position: [facility] RN Member Role: Primary Care Nurse Name: Lynn Stewart RN Position: [facility] RN Member Role: Primary Care Nurse Name: Amanda Johnson RN Position: [facility] RN Member Role: Primary Care Nurse Name: Jolie Villalobos RN Position: [facility] RN Member Role: Primary Care Nurse Name: Axel Savage RN Position: [facility] RN Member Role: Primary Care Nurse Name: Dirk Driver RN Position: [facility] RN Member Role: Primary Care Nurse Name: Glenys Bee RN Position: [facility] RN Member Role: Primary Care Nurse Name: Praveen Maurer RN Position: [facility] RN Member Role: Primary Care Nurse Name: Filemon King RN Position: [facility] RN Member Role: Primary Care Nurse Name: Gomez Corona RN Position: [facility] RN Member Role: Primary Care Nurse Name: Lauren Guevara RN Position: [facility] RN Member Role: Primary Care Nurse Name: Annamaria Quinn RN Position: [facility] RN Member Role: Primary Care Nurse Name: Lashawn Nagy RN Position: [facility] RN Member Role: Primary Care Nurse Name: Rhonda Tate LPN Position: [facility] RN Member Role: Primary Care Nurse Name: Jacquelin Naranjo RN Position: S RN Member Role: Primary Care Nurse Name: Glenys Fox RN Position: S RN Member Role: Primary Care Nurse Name: Reilly Moreno RN Position: S RN Member Role: Primary Care Nurse Care Team Related Persons Name: KAMILLE REYNAGAA Address: home [address] [place] [address] Name: HEENA MCQUEEN Address: home [address] [place] [address] Name: AISLINN DE LA PAZ Address: home [address] [place] [id number]
--- OUTSIDE RECORDS SUMMARY | 2024-01-21 19:33 | XMS_ITS | Continuity of Care Document ---
Author Organization [facility] Address [address] [place] [address]- Care Team Providers Care Pan Reclaim Processor Name Role Phone Derek Tomas MD Primary Care Physician Encounter [facility] Date(s): 10/11/23 - 10/12/[address] [address]- Discharge Disposition: A-D/C Home Attending Physician: Ismael PAGAN, Velia Sosa Admitting Physician: Velia Guevara MD Referring Physician: Not on Staff, Referring [...] 8:53:00 EST, Route to Pharmacy Electronically, [facility], Partial fill upon patient request [...] to Pharmacy Electronically, [facility]/pharmacy #[id number], 182, cm, 07/26/23 9:16:00 EDT, Height, 89, kg, 07/03/23 11:22:00 EST, Dry Weight Start Date: 08/06/23 Status: Ordered Dilaudid Inj 1 mg, Injection, IV Push Slowly, Once, STAT, 10/12/23 2:56:00 EDT, Stop date 10/12/23 2:56:00 EDT Start Date: 10/12/23 Stop Date: 10/12/23 Status: Completed docusate sodium 100 mg oral capsule 1 capsule, By Mouth, 2 times a day, # 60 capsule, 11 Refills, Maintenance, 09/03/23 17:44:00 EDT, [id number], 193, cm, 09/03/23 14:09:00 EDT, Height, 91.4, kg, 08/30/23 12:03:00 EDT, Dry Weight Start Date: 09/03/23 Status: Ordered duloxetine 30 mg oral enteric coated capsule 1 capsule = 30 mg, By Mouth, Daily, TAKE 1 CAPSULE BY MOUTH EVERY DAY, # 30 capsule, 6 Refills, Maintenance, 09/03/23 17:47:00 EDT, Capsule, [facility]/pharmacy #[id number], Partial fill upon [...] Refills, Maintenance, 08/12/23 13:51:00EDT, Tablet, [facility]/pharmacy #[id number], Partial fill upon patient request if the prescription is for a schedule II opioid drug., 182, cm, 07/26/23 9:16:00 EDT... Start Date: 08/12/23 Status: Ordered hydroxyurea 500 mg oral capsule = 500 mg, By Mouth, Daily, for 30 days, # 30 capsule, 2 Refills, Acute 10/18/23 14:36:00 EDT, 07/20/23 14:36:00 EST, Capsule, [facility]/pharmacy #[id number], Partial fill upon [...] 0 Refills, Maintenance, 10/11/23 13:02:00 EDT, Tablet, [id number], Partial fill uponpatient request if the [...] Route to Pharmacy Electronically, [facility]/pharmacy #[id number], Partial fill upon patient request if the [...] Refills, Maintenance, 07/16/23 10:05:00 EST, Tablet, [facility], Partial fill upon patient [...] apex Confirmed Active [facility] CP Care Management, Flanging Machine Operator Carmen Elizabeth [phone] Confirmed Active Therapeutic drug monitoring Confirmed Active Peripheral neuropathy Confirmed Active Right spastic hemiparesis Confirmed Active Spasticity Confirmed Active Tobacco dependence Confirmed Active Vital Signs Most recent to oldest [Reference Range]: 1 2 3 Oxygen Saturation [94-100 %] 97 % (10/12/23 5:28 AM) 97 % (10/12/23 4:39 AM) 99 % (10/12/23 12:10 AM) Pulse Rate [55-90 bpm] 69 bpm (10/12/23 5:28 AM) 72 bpm (10/12/23 4:39 AM) 72 bpm (10/12/23 12:10 AM) Blood Pressure [90-138/55-84 mm Hg] 118/64mm Hg (10/12/23 5:28 AM) 127/75mm Hg (10/12/23 4:39 AM) 118/72mm Hg (10/12/23 12:10 AM) Respiratory Rate [16-30 br/min] 18 br/min (10/12/23 5:28 AM) 18 br/min (10/12/23 4:39 AM) 16 br/min (10/12/23 3:00 AM) Temperature [96.8-100.4 DegF] 98.9 DegF (10/11/23 10:33 PM) Mode of Delivery (Oxygen) Room air (10/12/23 5:28 AM) Room air (10/12/23 4:39 AM) Room air (10/12/23 12:10 AM) Blood pressure sites Arm, left (10/12/23 5:28 AM) Arm, left (10/12/23 4:39 AM) Arm, left (10/12/23 12:10 AM) Temperature Route Oral (10/11/23 10:33 PM) Social History Social History Type Response Smoking Status 5-9 cigarettes (betw een 1/4 to 1/2 pack)/day in last 30 days entered on: 05/16/22 Sex Patient Care team information Care Team Personnel Name: Anu Lipscomb Position: [facility] RN Member Role: Primary Care Nurse Name: Jeanne Bryant RN Position: S RN Member Role: Primary Care Nurse Name: Mitch Guido RN Position: S RN Member Role: Primary Care Nurse Name: Areli Pittman RN Position: [facility] ED RN W/OE and Tasks Member Role: Primary Care Nurse Name: Derek Tomas MD Position: [facility] Resident Member Role: PCP Address: Address: [address] [place] [address]- Name: Monique Irwin LPN Position: [facility] RN Member Role: Primary Care Nurse Name: Lianna Epstein RN Position: [facility] RN Member Role: Primary Care Nurse Name: Mk Knutson LPN Position: [facility] RN Member Role: Primary Care Nurse Name: Farhana Garcia RN Position: [facility] RN Member Role: Primary Care Nurse Name: Kenyatta Villegas RN Position: [facility] RN Member Role: Primary Care Nurse Name: Albertina Adams RN Position: [facility] RN Member Role: Primary Care Nurse Name: Ricardo Russell RN Position: [facility] RN Member Role: Primary Care Nurse Name: Gissell Jernigan RN Position: [facility] RN Member Role: Primary Care Nurse Name: Farhana Green RN Position: [facility] RN Member Role: Primary Care Nurse Name: Cydney Delgado RN Position: [facility] RN Member Role: Primary Care Nurse Name: Sharon Mendez RN Position: [facility] RN Member Role: Primary Care Nurse Name: Mookie Christianson RN Position: [facility] RN Member Role: Primary Care Nurse Name: Ally Boyd RN Position: [facility] RN Member Role: Primary Care Nurse Name: Javed Oneill RN Position: [facility] RN Member Role: Primary Care Nurse Name: Lynn Stewart RN Position: [facility] RN Member Role: Primary Care Nurse Name: Amanda Johnson RN Position: [facility] RN Member Role: Primary Care Nurse Name: Jolie Villalobos RN Position: [facility] RN Member Role: Primary Care Nurse Name: Axel Savage RN Position: [facility] RN Member Role: Primary Care Nurse Name: Dirk Driver RN Position: [facility] RN Member Role: Primary Care Nurse Name: Glenys Bee RN Position: [facility] RN Member Role: Primary Care Nurse Name: Praveen Maurer Position: [facility] RN Member Role: Primary Care Nurse Name: Filemon King RN Position: [facility] RN Member Role: Primary Care Nurse Name: Lauren Guevara RN Position: S RN Member Role: Primary Care Nurse Name: Annamaria Quinn RN Position: [facility] RN Member Role: Primary Care Nurse Name: Jada Waller RN Position: S RN Member Role: Primary Care Nurse Name: Lashawn Nagy RN Position: [facility] RN Member Role: Primary Care Nurse Name: Rhonda Tate LPN Position: [facility] RN Member Role: Primary Care Nurse Name: Jacquelin Naranjo RN Position: [facility] RN Member Role: Primary Care Nurse Name: Glenys Fox RN Position: [facility] RN Member Role: Primary Care Nurse Care Team Related Persons Name: BEVERLY REYNAGA Address: [place] [address] [place], [place] Name: HEENA MCQUEEN Address: [address] [place], [place] Name: AISLINN DE LA PAZ Address: [address] [place] [address]
--- OUTSIDE RECORDS SUMMARY | 2024-01-21 19:33 | XMS_ITS | Continuity of Care Document ---
Author Organization [facility] Address [address] [place] [address]- Care Team Providers Care Minister Of Religion Name Role Phone Genoveva PAGAN, Derek Primary Care Physician Encounter [facility] Date(s): 10/11/23 - 11/10/[address] [address]- Allergies, Adverse Reactions, Alerts No Known Allergies [...] 06/17/23 8:53:00 EST, Route to Pharmacy Electronically, [facility], Partial fill upon patient [...] Refills, Maintenance, 09/03/23 17:44:00 EDT, [facility], 193, cm, 09/03/23 14:09:00 EDT, Height, 91.4, kg, 08/30/23 12:03:00 EDT, Dry Weight Start Date: 09/03/23 Status: Ordered duloxetine 30 mg oral enteric coated capsule 1 capsule = 30 mg, By Mouth, 2 times a day, TAKE 1 CAPSULE BY MOUTH EVERY DAY, # 60 capsule, 6 Refills, Maintenance, 10/25/23 15:39:00 EDT, Capsule, [facility]/pharmacy #[id number], [...] 0 Refills, Maintenance, 10/16/23 15:51:00 EDT, [facility], 193, cm, 10/04/23 3:49:00 EDT, Height, 90.4, [...] 11/15/23 15:53:00 EDT, 10/16/23 15:53:00 EDT, Capsule, [facility]/pharmacy #[id number], [...] Soft Stop, 08/23/23 15:54:00 EDT, [facility]... Start Date: 08/23/23 Status: Ordered OxyCONTIN 20 mg oral tablet, extended release 20 mg, By Mouth, Every 8 hours, # 21 each, Refills 0, Tot. Refills 0, Maintenance, 11/04/23 12:34:00 EDT, Route to Pharmacy Electronically, [facility], Partial fill upon patient [...] to Pharmacy Electronically, [facility]/pharmacy #[id number], Partial fill upon patient request if the [...] 0 Refills, Maintenance, 07/16/23 10:05:00 EST, Tablet, [facility], Partial fill upon patient request if [...] Care Nurse Name: Mitch Guido RN Position: [facility] RN Member Role: Primary Care Nurse Name: Areli Pittman RN Position: [facility] ED RN W/OE and Tasks Member Role: Primary Care Nurse Name: Derek Tomas MD Position: [facility] Resident Member Role: PCP Address: Address: [address] [place] [address] Name: Mari Suh RN Position: [facility] RN Member Role: Primary Care Nurse Name: Monique Irwin LPN Position: [facility] RN Member Role: Primary Care Nurse Name: Lianna Epstein RN Position: [facility] RN Member Role: Primary Care Nurse Name: Mk Knutson LPN Position: [facility] RN Member Role: Primary Care Nurse Name: Betty Fonseca RN Position: [facility] RN Member Role: Primary Care Nurse Name: Farhana Garcia RN Position: [facility] RN Member Role: Primary Care Nurse Name: Kenyatta Villegas RN Position: [facility] RN Member Role: Primary Care Nurse Name: Albertina Adams RN Position: [facility] RN Member Role: [...] Care Nurse Name: Debbie Rios RN Position: [facility] RN Member Role: [...] Care Nurse Name: Sandie Mejia RN Position: [facility] RN Member Role: [...] Care Nurse Name: Dirk Driver RN Position: [facility] RN Member Role: Primary Care Nurse Name: Glenys Bee RN Position: [facility] RN Member Role: Primary Care Nurse Name: Praveen Maurer RN Position: [facility] RN Member Role: Primary Care Nurse Name: Filemon King RN Position: [facility] RN Member Role: Primary Care Nurse Name: Gomez Corona RN Position: [facility] RN Member Role: Primary Care Nurse Name: Lauren Guevara RN Position: [facility] RN Member Role: Primary Care Nurse Name: Annamaria Quinn RN Position: [facility] RN Member Role: Primary Care Nurse Name: Lashawn Nagy RN Position: [facility] RN Member Role: Primary Care Nurse Name: Rhonda Tate LPN Position: [facility] RN Member Role: Primary Care Nurse Name: Jacquelin Naranjo RN Position: [facility] RN Member Role: Primary Care Nurse Name: Glenys Fox RN Position: [facility] RN Member Role: Primary Care Nurse Care Team Related Persons Name: MARGARITA REYNAGAVIA Address: home [address] [place], [place] Name: HEENA MCQUEEN Address: [address] [place], [place] Name: AISLINN DE LA PAZ Address: home [address] [place] [id number]
--- OUTSIDE RECORDS SUMMARY | 2024-01-21 19:34 | XMS_ITS | Continuity of Care Document ---
Author Organization [facility] Address [address] [place] [address]- Care Team Providers Care Clinical Counselor Name Role Phone Derek Tomas MD Primary Care Physician Encounter [facility] Date(s): 05/30/23 - 06/29/[address] [address]- Allergies, Adverse Reactions, Alerts No Known Allergies [...] 06/17/23 8:53:00 EST, Route to Pharmacy Electronically, [facility], Partial fill upon patient request if the prescription is for a schedule II opioid... Start Date: 06/17/23 Status: Ordered baclofen 20 mg oral tablet 20 mg, 1, tablet, By Mouth, 4 times a day, # 120 tablet, Refills 0, Tot. Refills 0, Maintenance, 06/03/23 13:25:00 EST, Route to Pharmacy Electronically, [facility], 193, cm, 06/01/23 9:54:00 EST, Height, [...] R39.81 Please fax to [facility] Start Date: 06/12/23 Status: Ordered duloxetine 30 mg oral enteric coated capsule 1 capsule, By Mouth, Daily, # 30 capsule, 5 Refills, Maintenance, 06/12/23 6:45:00 EST, [facility]/pharmacy #[id number], 193, cm, 06/01/23 9:54:00 EST, Height, 90.9, kg, 06/01/23 9:54:00 EST, Dry Weight Start Date: 06/12/23 Status: Ordered Eliquis 5 mg oral tablet See Instructions, TAKE 1 TABLET BY MOUTH TWICE A DAY, # 60 tablet, 11 Refills, Maintenance, 06/12/23 6:31:00 EST, [facility], 193, cm, 06/01/23 9:54:00 EST, Height, 90.9, kg, 06/01/23 9:54:00 EST, Dry Weight Start Date: 06/12/23 Status: Ordered ferrous sulfate 325 mg oral tablet 1 tablet = 325 mg, By Mouth, Daily, TAKE 1 TABLET BY MOUTH EVERY DAY, # 30 tablet, 0 Refills, Maintenance, 06/12/23 6:46:00 EST, Tablet, [facility]/pharmacy #[id number], Partial fill [...] 06/12/23 6:46:00 EST, [id number] upon... Start Date: 06/12/23 Status: Ordered gabapentin 600 mg oral tablet 1 tablet = 600 mg, By Mouth, 3 times a day, # 90 tablet, 0 Refills, Maintenance, 06/21/23 12:34:00 EST, Tablet, [facility]/pharmacy #[id number], Partial fill upon patient request if the prescription is for a schedule II opioid drug., 190, cm, 06/21/23 11:49:00 EST... Start Date: 06/21/23 Stop Date: 07/21/23 Status: Ordered Hospital bed Hospital bed, See [...] capsule, 5 Refills, Maintenance, 08/13/22 15:28:00 EDT, [facility]/pharmacy #[id number], 193.04, cm, 07/23/22 14:07:00 EDT, Height, 99.6, kg, 06/06/22 18:00:00 EST, Dry Weight Start Date: 08/13/22 Status: Ordered oxyCODONE 10 mg oral tablet 1 tablet = 10 mg, By Mouth, Every 6 hours, PRN as needed for pain, for 30 days, # 120 tablet, 0 Refills, Acute 07/22/23 8:55:00 EDT, 06/22/23 8:55:00 EST, Tablet, [facility]/pharmacy #[id number], Partial fill upon patient request if the prescription is for a sched... Start Date: 06/22/23 Stop Date: 07/22/23 Status: Ordered Right ankle & foot orthosis Right ankle & foot orthosis, See Instructions, # 1 each, Refills 1, Tot. Refills 1, Maintenance, Please dispense 1 right ankle and foot othosis Dx: R29.898, R26.81, M25.373 Length of need: 99 months Number to fax to: [phone], 01/06/21 13:10:00 E... Start Date: 01/06/21 Status: [...] 06/21/23 12:37:00 EST, Route to Pharmacy Electronically, [facility]/pharmacy #[id number], Partial fill upon patient request if the presc... Start Date: 06/21/23 Status: Ordered transfer tub bench transfer tub [...] apex Confirmed Active [facility] CP Care Management, Managing Supervisor Carmen Elizabeth [phone] Confirmed Active Therapeutic drug monitoring Confirmed Active [...] S Resident Member Role: PCP Address: Address: [address] [place] [id number]- Name: Farhana Green RN Position: S RN Member Role: Primary Care Nurse Name: Ally Boyd RN Position: [facility] RN Member Role: Primary Care Nurse Name: Lynn Stewart RN Position: [facility] RN Member Role: Primary Care Nurse Name: Jolie Villalobos RN Position: [facility] RN Member Role: Primary Care Nurse Name: Axel Savage RN Position: [facility] RN Member Role: Primary Care Nurse Name: Filemon King RN Position: [facility] RN Member Role: Primary Care Nurse Name: Lauren Guevara RN Position: [facility] RN Member Role: Primary Care Nurse Name: Lashawn Nagy RN Position: [facility] RN Member Role: Primary Care Nurse Name: Glenys Fox RN Position: [facility] RN Member Role: Primary Care Nurse Care Team Related Persons Name: BEVERLY REYNAGA Address: [place] [address] Name: AISLINN DE LA PAZ Address: [address] [place] [address]
--- OUTSIDE RECORDS SUMMARY | 2024-01-21 19:34 | XMS_ITS | Continuity of Care Document ---
Author Organization [facility] Address [address] [place] [address]- Care Team Providers Care Signal Fitter Name Role Phone Derek Tomas MD Primary Care Physician Encounter [facility] Date(s): 11/01/23 - 12/01/[address] [address]- Attending Physician: Sangeetha Latif Admitting Physician: AdmtrSangeetha [...] Acute 05/12/2415:40:00 EST, 10/25/23 15:40:00 EDT, Tablet, [facility]/pharmacy #[id number], Partial fill upon patient request if the prescription is for a schedule II opioid drug... Start Date: 10/25/23 Stop Date: 05/12/24 Status: Ordered amLODIPine 5 mg oral tablet 5 mg, 1, tablet, By Mouth, Daily, # 30 tablet, Refills 0, Tot. Refills 0, Maintenance, 06/17/23 8:53:00 EST, Route to Pharmacy Electronically, [facility], Partial fill upon patient request if the prescription is for a schedule II opioid... Start Date: 06/17/23 Status: Ordered ascorbic acid 500 mg oral tablet 1 tablet = 500 mg, By Mouth, Daily, # 30 tablet, 0 Refills, Maintenance, 09/06/23 12:42:00 EDT, Tablet, [facility]/pharmacy #[id number], Partial fill upon patient request if the prescription is for a schedule II opioid drug., 193, cm, 09/05/23 19:48:00 EDT, Height... Start Date: 09/06/23 Status: Ordered baclofen 20 mg oral tablet 20 mg, 1, tablet, By Mouth, 4 times a day, # 120 tablet, Refills 5, Tot. Refills 5, Maintenance, 08/06/23 9:00:00 EDT, Route to Pharmacy Electronically, [facility]/pharmacy #[id number], 182, cm, 07/26/23 9:16:00 EDT, Height, 89, kg, 07/03/23 11:22:00 EST, Dry Weight Start Date: 08/06/23 Status: Ordered clindamycin 1% topical gel APPLY TO AFFECTED AREA TOPICALLY TWICE A DAY Start Date: 11/17/23 Status: Ordered docusate sodium 100 mg oral capsule 1 capsule, By Mouth, 2 times a day, # 60 capsule, 11 Refills, Maintenance, 09/03/23 17:44:00 EDT, [facility], 193, cm, 09/03/23 14:09:00 EDT, Height, 91.4, kg, 08/30/23 12:03:00 EDT, Dry Weight Start Date: 09/03/23 Status: Ordered duloxetine 30 mg oral enteric coated capsule 1 capsule = 30 mg, By Mouth, 2 times a day, TAKE 1 CAPSULE BY MOUTH EVERY DAY, # 60 capsule, 6 Refills, Maintenance, 10/25/23 15:39:00 EDT, Capsule, [facility]/pharmacy #[id number], Partial fill upon patient request if [...] 0 Refills, Maintenance, 10/16/23 15:51:00 EDT, [facility], 193, cm, 10/04/23 3:49:00 EDT, Height, 90.4, [...] 11 Refills, Maintenance, 08/12/23 13:51:00EDT, Tablet, [facility]/pharmacy #[id number], Partial fill upon patient request if [...] 12/24/23 13:33:00 EDT, 11/26/23 13:33:00 EDT, Tablet, [facility]/pharmacy #[id number], Partial fill upon patient request if [...] 13:51:00 EDT, Route to Pharmacy Electronically, [facility]/pharmacy #[id number], Partial fill upon patient request if the [...] Refills, Maintenance, 07/16/23 10:05:00 EST, Tablet, [facility], Partial fill upon [...] 30 days entered on: 05/16/22 Sex Hospital Consult note * Event Display: Inpatient Consult Note, Non-BH Authored Date: Laboratory * Event Display: Non BH Lab Results Authored Date: * Event Display: Non BH Lab Results Authored Date: * Event Display: Laboratory Result Scanned Authored Date: Patient Care team information Care [...] HOSPITAL Resident Member Role: PCP Address: Address: [address] [place] [address] Name: Mari Suh RN Position: [facility] RN Member Role: Primary Care Nurse Name: Monique Irwin LPN Position: [facility] RN Member Role: Primary Care Nurse Name: Lianna Epstein RN Position: [facility] RN Member Role: Primary Care Nurse Name: Austin Wright RN Position: [facility] RN Member Role: Primary Care Nurse Name: Mk Knutson LPN Position: [facility] RN Member Role: Primary Care Nurse Name: Betty Fonseca RN Position: [facility] RN [...] RN Member Role: Primary Care Nurse Name: Farhaan Green RN Position: [facility] RN Member Role: Primary Care Nurse Name: Cydney Delgado RN Position: [facility] RN Member Role: Primary Care Nurse Name: Debbie Rios RN Position: [facility] RN [...] Care Nurse Name: Frances Quach RN Position: [facility] RN Member Role: Primary Care Nurse Name: Sandie Mejia RN Position: [facility] RN Member Role: Primary Care Nurse Name: Kriss Castillo RN Position: [facility] RN [...] Care Nurse Name: Gomez Corona RN Position: [facility] RN [...] Care Nurse Name: Reilly Moreno RN Position: [facility] RN Member Role: Primary Care Nurse Care Team Related Persons Name: BEVERLY REYNAGA Address: [address] [place] [address] Name: HEENA MCQUEEN Address: [address] [place] [address] Name: AISLINN DE LA PAZ Address: [address] [address]
--- OUTSIDE RECORDS SUMMARY | 2024-01-21 19:34 | XMS_ITS | Continuity of Care Document ---
Author Organization [facility] Address [address] [place] [address]- Care Team Providers Care Regional Facilities Manager Name Role Phone Genoveva PAGAN, Derek Primary Care Physician Encounter [facility] [place] Date(s): 11/21/23 - 12/21/[address] [address]- Allergies, Adverse Reactions, Alerts No Known Allergies Immunizations Given and Recorded Vaccine Date Status Refusal Reason influenza virus vaccine, inactivated 05/18/22 Give n tetanus/diphtheria/pertussis, acel(Tdap) 09/13/19 Recorded Medications acetaminophen 500 mg oral tablet 2 tablet = 1,000 mg, By Mouth, 3 times a day, PRN for pain, # 100 tablet, 6 Refills, Acute 05/12/2415:40:00 EST, 10/25/23 15:40:00 EDT, Tablet, [facility]/pharmacy #[id number], Partial fill upon patient request if the prescription is for a schedule II opioid drug... Start Date: 10/25/23 Stop Date: 05/12/24 Status: Ordered amLODIPine 5 mg oral tablet 5 mg, 1, tablet, By Mouth, Daily, # 30 tablet, Refills 0, Tot. Refills 0, Maintenance, 06/17/23 8:53:00 EST, Route to Pharmacy Electronically, [facility], Partial fill upon patient [...] Refills, Maintenance, 09/03/23 17:44:00 EDT, [facility], 193, cm, 09/03/23 14:09:00 EDT, Height, 91.4, [...] 0 Refills, Maintenance, 10/16/23 15:51:00 EDT, [facility], 193, cm, 10/04/23 3:49:00 EDT, Height, 90.4, [...] Refills, Maintenance, 12/11/23 14:15:00 EDT, [facility], 194, cm, 11/20/23 13:14:00 EDT, Height, 93.9, [...] 12/24/23 13:33:00 EDT, 11/26/23 13:33:00 EDT, Tablet, [facility]/pharmacy #[id number], [...] Team Personnel Name: Anu Lipscomb RN Position: [facility] RN Member Role: Primary Care Nurse Name: Jeanne Bryant RN Position: [facility] RN Member Role: Primary Care Nurse Name: Mitch Guido RN Position: [facility] RN Member Role: Primary Care Nurse Name: Areli Pittman RN Position: [facility] ED RN W/OE and Tasks Member Role: Primary Care Nurse Name: Derek Tomas MD Position: [facility] Resident Member Role: PCP Address: Address: [address] [place] [address] Name: Mari Suh RN Position: [facility] RN Member Role: Primary Care Nurse Name: Monique Irwin LPN Position: [facility] RN Member Role: Primary Care Nurse Name: Lianna Epstein RN Position: [facility] RN Member Role: Primary Care Nurse Name: Austin Wright RN Position: [facility] RN Member Role: Primary Care Nurse Name: Mk Knutson LPN Position: [facility] RN Member Role: Primary Care Nurse Name: Betty Fonesca RN Position: [facility] RN Member Role: Primary Care Nurse Name: Farhana Garcia RN Position: [facility] RN Member Role: Primary Care Nurse Name: Kenyatta Villegas RN Position: [facility] RN Member Role: Primary Care Nurse Name: Albertina Adams RN Position: [facility] RN Member Role: Primary Care Nurse Name: Ricardo Russell RN Position: [facility] RN Member Role: Primary Care Nurse Name: Gisslel Jernigan RN Position: [facility] RN Member Role: Primary Care Nurse Name: Farhana Green RN Position: [facility] RN Member Role: Primary Care Nurse Name: Cydney Delgado RN Position: [facility] RN Member Role: Primary Care Nurse Name: Debbie Rios RN Position: [facility] RN Member Role: Primary Care Nurse Name: Sharon Mendez RN Position: [facility] RN Member Role: Primary Care Nurse Name: Mookie Christianson RN Position: [facility] RN Member Role: Primary Care Nurse Name: Ally Boyd RN Position: [facility] RN Member Role: Primary Care Nurse Name: Javed Oneill RN Position: [facility] RN Member Role: Primary Care Nurse Name: Frances Quach RN Position: [facility] RN Member Role: Primary Care Nurse Name: Sandie Mejia RN Position: [facility] RN Member Role: Primary Care Nurse Name: Kriss Castillo RN Position: [facility] RN Member Role: Primary Care Nurse Name: Lynn Stewart RN Position: [facility] RN Member Role: Primary Care Nurse Name: Amanda Johnson RN Position: [facility] RN Member Role: Primary Care Nurse Name: Jolie Villalobos RN Position: [facility] RN Member Role: Primary Care Nurse Name: Axel Savage RN Position: [facility] RN Member Role: Primary Care Nurse Name: Dirk Driver RN Position: [facility] RN Member Role: Primary Care Nurse Name: Glenys Bee RN Position: [facility] RN Member Role: Primary Care Nurse Name: Praveen Maurer RN Position: [facility] RN Member Role: Primary Care Nurse Name: Filemon King RN Position: [facility] RN Member Role: Primary Care Nurse Name: Gomez Corona RN Position: [facility] RN Member Role: Primary Care Nurse Name: Lauren Guevara RN Position: [facility] RN Member Role: Primary Care Nurse Name: Annamaria Quinn RN Position: [facility] RN Member Role: Primary Care Nurse Name: Lashawn Nagy RN Position: [facility] RN Member Role: Primary Care [...] Persons Name: JUHIKAMILLE WHEELERA Address: [address] [place] [address] Name: HEENA MCQUEEN Address: [address] [place] [address] Name: AISLINN DE LA PAZ Address: [address] [place] [address]
--- OUTSIDE RECORDS SUMMARY | 2024-01-21 19:34 | XMS_ITS | Continuity of Care Document ---
Author Organization [facility] Address [address] [place] [address] [address] [place] [address]- Care Team Providers Care Breeder Service Technician Name Role Phone Genoveva PAGAN, Derek Primary Care Physician Encounter [facility] Date(s): 08/28/23 - 09/27/23 [facility] [address] [place] [id number]- Allergies, Adverse Reactions, Alerts No Known Allergies Immunizations Given and Recorded Vaccine Date Status Refusal Reason influenza virus vaccine, inactivated 05/18/22 Give n tetanus/diphtheria/pertussis, acel(Tdap) 09/13/19 Recorded Medications amLODIPine 5 mg oral tablet 5 mg, 1, tablet, By Mouth, Daily, # 30 tablet, Refills 0, Tot. Refills 0, Maintenance, 06/17/23 8:53:00 EST, Route to Pharmacy Electronically, [facility], Partial fill upon patient request if the prescription is for a schedule II opioid... Start Date: 06/17/23 Status: Ordered ascorbic acid 500 mg oral tablet 1 tablet = 500 mg, By Mouth, Daily, # 30 tablet, 0 Refills, Maintenance, 09/06/23 12:42:00 EDT, Tablet, [facility]/pharmacy #[id number], Partial fill upon patient request if the prescription is for a schedule II opioid drug., 193, cm, 09/05/23 19:48:00 EDT, Height... Start Date: 09/06/23 Status: Ordered baclofen 20 mg oral tablet 20 mg, 1, tablet, By Mouth, 4 times a day, # 120 tablet, Refills 5, Tot. Refills 5, Maintenance, 08/06/23 9:00:00 EDT, Route to Pharmacy Electronically, [facility]/pharmacy #[id number], 182, cm, 07/26/23 9:16:00 EDT, Height, 89, kg, 07/03/23 11:22:00 EST, Dry Weight Start Date: 08/06/23 Status: Ordered docusate sodium 100 mg oral capsule 1 capsule, By Mouth, 2 times a day, # 60 capsule, 11 Refills, Maintenance, 09/03/23 17:44:00 EDT, [id number], 193, cm, 09/03/23 14:09:00 EDT, Height, 91.4, [...] 14:36:00 EDT, 07/20/23 14:36:00 EST, Capsule, [facility]/pharmacy #[id number], Partial fill upon patient request if the prescriptionis for a schedule II opioid drug., 182, cm, ... Start Date: 07/20/23 Stop Date: 10/18/23 Status: Ordered MiraLax oral powder for reconstitution = 17 Gm, By Mouth, Daily, PRN Constipation, for 30 days, # 30 each, 0 Refills, Acute 10/06/23 12:41:00 EDT, 09/06/23 12:41:00 EDT, REC Powder, [facility] #[id number], Partial fill upon patient request ifthe [...] 13:51:00 EDT, Route to Pharmacy Electronically, [facility]/pharmacy [...] Refills, Maintenance, 07/16/23 10:05:00 EST, Tablet, [facility], Partial fill upon patient request [...] apex Confirmed Active [facility] CP Care Management, Java Solutions Architect Carmen Elizabeth [phone] Confirmed Active Therapeutic drug monitoring Confirmed Active Peripheral neuropathy Confirmed Active Right spastic hemiparesis Confirmed Active Spasticity Confirmed Active Tobacco dependence Confirmed Active Social History Social History Type Response Smoking Status 5-9 cigarettes (betw een 1/4 to 1/2 pack)/day in last 30 days entered on: 05/16/22 Sex Patient Care team information Care Team Personnel Name: Ruel Anu Position: [facility] RN Member Role: Primary Care Nurse Name: Jeanne Bryant RN Position: [facility] RN Member Role: Primary Care Nurse Name: Areli Pittman RN Position: [facility] ED RN W/OE and Tasks Member Role: Primary Care Nurse Name: Derek Tomas MD Position: [facility] Resident Member Role: PCP Address: Address: [address] [place] [address] Name: Monique Irwin LPN Position: [facility] RN Member Role: Primary Care Nurse Name: Lianna Epstein RN Position: [facility] RN Member Role: Primary Care Nurse Name: Vicenta Barnett RN Position: [facility] RN Member Role: Primary Care Nurse Name: Farhana Garcia RN Position: [facility] RN Member Role: Primary Care Nurse Name: Ricardo Russell RN Position: [facility] RN Member Role: Primary Care Nurse Name: Gissell Jernigan RN Position: [facility] RN Member Role: Primary Care Nurse Name: Farhana Green RN Position: [facility] RN Member Role: Primary Care Nurse Name: Cydney Delgado RN Position: [facility] RN Member Role: Primary Care Nurse Name: Sharon Mendez RN Position: [facility] RN Member Role: Primary Care Nurse Name: Mookie Christianson RN Position: [facility] RN Member Role: Primary Care Nurse Name: Ally Boyd RN Position: [facility] RN Member Role: Primary Care Nurse Name: Javed Oneill RN Position: [facility] RN Member Role: Primary Care Nurse Name: Lynn Stewart RN Position: [facility] RN Member Role: Primary Care Nurse Name: Amanda Johnson RN Position: [facility] RN Member Role: Primary Care Nurse Name: Jolie Villalobos RN Position: [facility] RN Member Role: Primary Care Nurse Name: Axel Savage RN Position: [facility] RN Member Role: Primary Care Nurse Name: Dirk Driver RN Position: [facility] RN Member Role: Primary Care Nurse Name: Glenys Bee RN Position: [facility] RN Member Role: Primary Care Nurse Name: Praveen Maurer Position: [facility] RN Member Role: Primary Care Nurse Name: Filemon King RN Position: [facility] RN Member Role: Primary Care Nurse Name: Lauren Guevara RN Position: S RN Member Role: Primary Care Nurse Name: Annamaria Quinn RN Position: [facility] RN Member Role: Primary Care Nurse Name: Jada Waller RN Position: [facility] RN Member Role: Primary Care Nurse Name: Lashawn Nagy RN Position: [facility] RN Member Role: Primary Care Nurse Name: Jacquelin Naranjo RN Position: [facility] RN Member Role: Primary Care Nurse Name: Glenys Fox RN Position: [facility] RN Member Role: Primary Care Nurse Care Team Related Persons Name: KAMILLE REYNAGAA Address: [place] [facility] [place] [address] Name: AISLINN DE LA PAZ Address: [address] [place] [address]
--- OUTSIDE RECORDS SUMMARY | 2024-01-21 19:34 | XMS_ITS | Continuity of Care Document ---
Author Organization [facility] Address [address] [place] [address]- Care Team Providers Care Candy Packer Name Role Phone Derek Tomas MD Primary Care Physician Encounter [facility] Date(s): 08/06/23 - 09/05/[address] [id number]- Allergies, Adverse Reactions, Alerts No Known Allergies [...] 06/17/23 8:53:00 EST, Route to Pharmacy Electronically, [facility], Partial fill upon patient request [...] Refills, Maintenance, 09/03/23 17:44:00 EDT, [id number], 193, cm, 09/03/23 14:09:00 EDT, Height, 91.4, [...] Refills, Maintenance, 06/12/23 6:31:00 EST, [id number], 193, cm, 06/01/23 9:54:00 EST, Height, 90.9, kg, 06/01/23 9:54:00 EST, Dry Weight Start Date: 06/12/23 Status: Ordered ferrous sulfate 325 mg oral tablet 1 tablet = 325 mg, By Mouth, 2 times a day, TAKE 1 TABLET BY MOUTH EVERY DAY, # 180 tablet, 0 Refills, Maintenance, 08/14/23 12:47:00 EDT, Tablet, [facility]/pharmacy #[id number], Partial fill [...] 06/12/23 6:46:00 EST, Route to Pharmacy Electronically, [facility]/pharmacy #[id number], Partial fill upon... Start Date: 06/12/23 [...] to Pharmacy Electronically, [facility]/pharmacy #[id number], Partial fill upon [...] 0 Refills, Maintenance, 07/16/23 10:05:00 EST, Tablet, [facility], Partial fill upon patient request [...] apex Confirmed Active N CP Care Management, Glass Mold Repairer Carmen Elizabeth [phone] Confirmed Active Therapeutic drug monitoring Confirmed Active [...] Name: Areli Pittman RN Position: [facility] ED RN W/OE and Tasks Member Role: Primary Care Nurse Name: Derek Tomas MD Position: [facility] Resident Member Role: PCP Address: Address: [address] [place] [address]- Name: Monique Irwin LPN Position: S RN Member Role: Primary Care Nurse Name: Lianna Epstein RN Position: [facility] RN Member Role: Primary Care Nurse Name: Edic RN, Vicenta Position: [facility] RN Member Role: Primary Care Nurse Name: Farhana Garcia RN Position: [facility] RN Member Role: Primary Care Nurse Name: Ricardo Russell RN Position: [facility] RN Member Role: Primary Care Nurse Name: Gissell Jernigan RN Position: [facility] RN Member Role: Primary Care Nurse Name: Farhana Green RN Position: [facility] RN Member Role: Primary Care Nurse Name: Cydney Delgado RN Position: [facility] RN Member Role: Primary Care Nurse Name: Sharon Mendez RN Position: [facility] RN Member Role: Primary Care Nurse Name: Mookie Christianson RN Position: [facility] RN Member Role: Primary Care Nurse Name: Ally Boyd RN Position: [facility] RN Member Role: Primary Care Nurse Name: Javed Oneill RN Position: [facility] RN Member Role: Primary Care Nurse Name: Lynn Stewart RN Position: [facility] RN Member Role: Primary Care Nurse Name: Amanda Johnson RN Position: [facility] RN Member Role: Primary Care Nurse Name: Jolie Villalobos RN Position: [facility] RN Member Role: Primary Care Nurse Name: Axel Savage RN Position: [facility] RN Member Role: Primary Care Nurse Name: Dirk Driver RN Position: [facility] RN Member Role: Primary Care Nurse Name: Glenys Bee RN Position: [facility] RN Member Role: Primary Care Nurse Name: Praveen Maurer Position: [facility] RN Member Role: Primary Care Nurse Name: Filemon King RN Position: [facility] RN Member Role: Primary Care Nurse Name: Lauren Guevara RN Position: [facility] RN Member Role: Primary Care Nurse Name: Annamaria Quinn RN Position: [facility] RN Member Role: Primary Care Nurse Name: Jada Waller RN Position: [facility] RN Member Role: Primary Care Nurse Name: Lashawn Nagy RN Position: [facility] RN Member Role: Primary Care Nurse Name: Glenys Fox RN Position: [facility] RN Member Role: Primary Care Nurse Care Team Related Persons Name: BEVERLY REYNAGA Address: [place] [address] Name: AISLINN DE LA PAZ Address: home [address] [place] [id number]
--- OUTSIDE RECORDS SUMMARY | 2024-01-21 19:34 | XMS_ITS | Continuity of Care Document ---
Author Organization [facility] Address [address] [place] [id number]- Care Team Providers Care Emergency Vehicle Operator Name Role Phone Derek Tomas MD Primary Care Physician Encounter [facility] Date(s): 08/20/23 - 08/23/[address] [id number] Encounter Diagnosis Hidradenitis suppurativa(Final) - 08/20/23 Gluteal pain(Final) - 08/20/23 Cellulitis and abscess of buttock(Final) - 08/20/23 Discharge Disposition: A-Transfer VNA/Home Health Attending Physician: Willy Saenz MD Admitting Physician: Shayan Pack MD Referring Physician: Not on Staff, Referring [...] 06/17/23 8:53:00 EST, Route to Pharmacy Electronically, [facility], Partial fill upon patient request if the prescription is for a schedule II opioid... Start Date: 06/17/23 Status: Ordered amLODIPine 5 mg oral tablet 5 mg, Tablet, By Mouth, 08/23/23 9:00:00 EDT Start Date: 08/23/23 Stop Date: 08/23/23 Status: Completed amoxicillin-clavulanate 875 mg-125 mg oral tablet 1 tablet, By Mouth, Every 12 hours, for 12 days, # 24 tablet, 0 Refills, Acute 09/04/23 15:52:00 EDT, 08/23/23 15:52:00 EDT, Tablet, [facility], Partial fill upon patient request if theprescription is for a schedule II opioid drug., 182... Start Date: 08/23/23 Stop Date: 09/04/23 Status: Ordered baclofen 10 mg oral tablet 20 mg, Tablet, By Mouth, 08/23/23 21:00:00 EDT Start Date: 08/23/23 Stop Date: 08/23/23 Status: Completed baclofen 20 mg oral tablet [...] 08/14/23 12:50:00 EDT, Route to Pharmacy Electronically, [id number], Partial fill upon patient request if the prescription is for a schedule II... Start Date: 08/14/23 Stop Date: 09/13/23 Status: Ordered doxycycline hyclate 100 mg oral capsule 1 capsule = 100 mg, By Mouth, 2 times a day, for 12 days, # 24 capsule, 0 Refills, Acute 09/04/23 15:52:00 EDT, 08/23/23 15:52:00 EDT, Capsule, [facility], Partial fill upon [...] capsule, 0 Refills, Maintenance, 07/16/23 9:56:00 EST, [facility], 182, cm, 07/04/23 14:56:00 EST, Height, 89, kg, 07/03/23 11:22:00 EST, Dry Weight Start Date: 07/16/23 Status: Ordered Eliquis 5 mg oral tablet See Instructions, TAKE 1 TABLET BY MOUTH TWICE A DAY, # 60 tablet, 11 Refills, Maintenance, 06/12/23 6:31:00 EST, [facility] STORE [id number], 193, cm, 06/01/23 9:54:00 EST, Height, 90.9, kg, 06/01/23 9:54:00 EST, Dry Weight Start Date: 06/12/23 Status: Ordered ferrous sulfate 325 mg oral tablet 1 tablet = 325 mg, By Mouth, 2 times a day, TAKE 1 TABLET BY MOUTH EVERY DAY, # 180 tablet, 0 Refills, Maintenance, 08/14/23 12:47:00 EDT, Tablet, [facility]/pharmacy #[id number], Partial fill upon patient request if the prescription is for a schedule II opioid drChapin Start Date: 08/14/23 Stop Date: 11/12/23 Status: Ordered folic acid 1 mg oral tablet 1 mg, 1, tablet, By Mouth, Daily, TAKE 1 TABLET BY MOUTH EVERY DAY THAT YOU ARE NOT TAKING METHOTREXATE, # 30 tablet, Refills 0, Tot. Refills 0, Maintenance, 06/12/23 6:46:00 EST, Route to Pharmacy Electronically, [facility]/pharmacy #[id number], Partial fill upon... Start Date: 06/12/23 Status: Ordered gabapentin 300 mg oral capsule 600 mg, Capsule, By Mouth, 08/23/23 21:00:00 EDT Start Date: 08/23/23 Stop Date: 08/23/23 Status: Completed gabapentin 600 mg oral tablet [...] 0 Refills, Soft Stop, 08/23/23 15:54:00 EDT, [facility]... Start Date: 08/23/23 Status: Ordered oxyCODONE 5 mg oral tablet 12.5 mg, Tablet, By Mouth, Every 4 hours, PRN for Pain , Severe, Routine, 08/20/23 9:09:00 EDT Start Date: 08/20/23 Stop Date: 08/27/23 Status: Ordered oxyCODONE 5 mg oral tablet 5 mg, 1, tablet, By Mouth, Every 6 hours, PRN, for 5 days, # 20 tablet, Refills 0, Tot. Refills 0, Acute 08/28/23 15:51:00 EDT, Pain , Severe, 08/23/23 15:51:00 EDT, Route to Pharmacy Electronically,[facility], Partial fill upon patient... Start Date: 08/23/23 Stop Date: 08/28/23 Status: Ordered pantoprazole 40 mg oral delayed release tablet = 40 mg, By Mouth, Daily, # 21 tablet, 0 Refills, Maintenance, 08/23/23 15:51:00 EDT, EC Tablet, 182frank, 07/26/23 9:16:00 EDT, Height, 89, kg, 08/21/23 7:13:00 EDT, Dry Weight Start Date: 08/23/23 Status: Ordered tiZANidine 2 mg oral tablet 4 mg, 2, tablet, By Mouth, Every 8 hours, PRN, # 180 tablet, Refills 11, Tot. Refills 11, Maintenance, as needed for muscle spasm, 08/12/23 13:51:00 EDT, Route to Pharmacy Electronically, [facility]/pharmacy #[id number], Partial fill upon patient request if the [...] 0 Refills, Maintenance, 07/16/23 10:05:00 EST, Tablet, [facility], Partial fill upon [...] apex Confirmed Active [facility] CP Care Management, Door Hanger Carmen Elizabeth [phone] Confirmed Active Therapeutic drug monitoring Confirmed Active Peripheral neuropathy Confirmed Active Right spastic hemiparesis Confirmed Active Spasticity Confirmed Active Tobacco dependence Confirmed Active Results Radiology Reports * Exam Date Time Procedure Performing Provider Status 08/20/23 1:[address] Abd/Pelvis W/ IV Contrast Only Brandon Jones; Chaitanya (Verified) Notes: (CT Abd/Pelvis W/ IV Contrast Only) Reason For Exam: hidradinitis R glute;Other: RESULT: CT Abd/Pelvis W/ IV Contrast Only CT Abd/Pelvis W/ IV Contrast Only Hx of Present Illness: leaking cysts and pain; Reason: hidradinitis R glute; Clinical Question(s): infection TECHNIQUE: Spiral CT through the abdomen and pelvis with IV contrast formatted in 3 planes. 100 cc of Omnipaque 300 was administered intravenously. This study was performed without oral contrast. Weight-based protocol using automatic tube modulation was used to optimize exposure parameters. CTDIvol Body: 15.10 mGy, DLP Body: 1057 mGy*cm. COMPARISON: CT abdomen and pelvis 07/12/2023. FINDINGS: Composing Machine Operator View Findings, Lines and Tubes: None. Visualized Chest: Mild dependent atelectasis. No focal consolidation. No pleural effusion. The heart is normal in size. No pericardial effusion. Diaphragm: Normal. Liver: Normal. Gallbladder: No CT evidence of gallbladder pathology. Bile ducts: No biliary ductal dilation. Spleen: Normal. Pancreas: Normal. Adrenal glands: Normal. Kidneys and ureters: Symmetric enhancement of the kidneys bilaterally with interval resolution of prior right-sided perinephric and periureteral stranding. No hydronephrosis, stones, or suspicious masses. Parapelvic cyst in the right kidney is again noted. Small hypodensities that are too small to characterize are noted, requiring no dedicated follow up. Bladder: Underdistended with mild circumferential wall thickening. Reproductive organs: Unremarkable. Stomach, small bowel, and large bowel: The stomach is normal. Small bowel of normal course and caliber. Mild colonic stool burden. Rare colonic diverticulosis without evidence of diverticulitis. No evidence of bowel obstruction. Appendix: Normal. Peritoneum and retroperitoneum: No ascites or pneumoperitoneum. No omental or mesenteric lesions. Lymph nodes: No significant change of enlarged right inguinal, right iliac and retroperitoneal lymph nodes. Blood vessels: Normal. No aneurysm. No evidence of venous thrombosis. Abdominal and pelvic wall: No significant change of extensive skin thickening and fat stranding of the posterior right gluteal soft tissues with distal extension to the posterior right thigh soft tissues. No loculated collections to suggest a drainable abscess. Unchanged mild skin thickening of theleft medial soft tissues. Bones: No acute abnormality. Mild levoscoliosis of the visualized lower thoracic and lumbar spine. Mild DJD. IMPRESSION: No acute intra-abdominal abnormality. No significant change of posterior right gluteal skin thickening and inflammatory changes. No definite drainable collection. Unchanged minimal skin thickening of the left gluteal soft tissues. Unchanged enlarged intra-abdominal and retroperitoneal lymph nodes. Interval resolution of prior right kidney and right ureteral inflammatory changes. Wet read provided via [facility] by Dr. Heaton on 08/20/2023 2:10 AM. I have personally reviewed the images and I agree with this report. WSN: [id number] Ordering Physician: Edelmira Littlejohn Dictated By: Shayan Heaton DO Dictated Date/Time: 08/20/23 7:41 am Reviewed By: Oni Rose MD Signed By: Oni Rose MD Signed Date/Time: 08/20/23 7:46 am Transcribed By: ZEHRA Transcribed Date/Time: 08/20/23 2:11 am Vital Signs Most recent to oldest [Reference Range]: 1 2 3 Weight 89 kg (08/21/23 7:08 AM) Oxygen Saturation [94-100 %] 100 % (08/23/23 2:18 PM) 96 % (08/23/23 5:59 AM) 100 % (08/22/23 8:14 PM) Pulse Rate [55-90 bpm] 66 bpm (08/23/23 2:18 PM) 50 bpm *L* (08/23/23 5:59 AM) 55 bpm (08/22/23 8:14 PM) Blood Pressure [90-138/55-84 mm Hg] 139/60mm Hg *H* (08/23/23 2:18 PM) 120/68mm Hg (08/23/23 9:30 AM) 117/70mm Hg (08/23/23 5:59 AM) Respiratory Rate [16-30 br/min] 18 br/min (08/23/23 8:12 PM) 18 br/min (08/23/23 8:12 PM) 17 br/min (08/23/23 6:10 PM) Temperature [96.8-100.4 DegF] 98.1 DegF (08/23/23 2:18 PM) 98 DegF (08/23/23 5:59 AM) 98.1 DegF (08/22/23 8:14 PM) Liters per Minute 6 L/min (08/21/23 9:15 AM) Mode of Delivery (Oxygen) Room air (08/23/23 2:18 PM) Room air (08/23/23 5:59 AM) Room air (08/22/23 8:14 PM) Blood pressure sites Arm, left (08/23/23 2:18 PM) Arm, left (08/23/23 5:59 AM) Arm, left (08/22/23 8:14 PM) Temperature Route Oral (08/23/23 2:18 PM) Oral (08/23/23 5:59 AM) Oral (08/22/23 8:14 PM) Dry Weight 89 kg (08/21/23 7:08 AM) Social History Social History Type Response Smoking Status 5-9 cigarettes (betw een 1/4 to 1/2 pack)/day in last 30 days entered on: 05/16/22 Sex History and physical note * Kamran PAGAN, Sulema: PERFORM, MODIFY, MODIFY, MODIFY Event Display: History and Physical Hospital Authored Date: Patient: ??ERNESTO MCQUEEN ? Age:??38 Years?Sex:??Male?:??1985?? Chief Complaint/Reason for Consult Gluteal wound History of Present Illness 38M with a complex PMH that includes ischemic stroke??with right-sided deficits,??mural thrombus onEliquis,??hidradenitis??suppurativa,??iron deficiency anemia, thrombocytosis, chronic pain??syndrome, HTN, GERD, and depression who presents for??acute onset of??right gluteal/leg pain.?He underwent CT imaging that, when compared to imaging from 07/12/23, showed no significant change of his posterior right gluteal skin thickening and inflammatory changes with no definite drainable collection. There has been??drainage coming from the area drawing concern for??cellulitis??and infection. ??For this reason,??a general surgery consult was requested. ?? On examination, patient is??laying??in bed in no??acute distress.?? He tells me that he has beenhaving pain??at his??glutes for??3 years that has??only since worsened.?? He experienced sudden??pain??overnight??which is why he presented to the ED.?? He denies any fevers or chills,??chest pain, or shortness of breath. ??He has been tolerating??p.o. intake without any nausea or vomiting. ??On chart review, it appears that the patient had previously been following??with??the plastic surgery anddermatology teams at [facility]??for his hidradenitis.?He has undergone multiple surgical excisions??at [facility]??and takes Ilaris injections??for it.?He had been planned to undergo excision??and??split- thickness skin grafting, however,??he was denied??by his insurance company because??the providers were out of network. ??Most recently, he was??admitted here??at the end of June??for??similar presentation, was treated with vancomycin and Zosyn,??underwent an I&D??on 07/12/2023, and discharged??on 07/14 on??doxycycline and Augmentin.?? His aunt is at bedside who shares that he had been??evaluated??by??a food technology teacher just this past weekend??on Saturday,??with mentions of??plans for antibiotics and surgery though it is unclear??the timing of this plan. He reports that only his wounds on his right leg have been painful, not the left. Physical Exam Vitals & Measurements T:??97.8?F?? HR:??56??(Peripheral)?? RR:??16?? BP:??107/63?? SpO2:??100%?? General: No acute distress, awake, alert Psych:??Appropriate mood and affect. HEENT:??Normocephalic, atraumatic. Lungs: Normal work of breathing on room air. Integ: Large areas of brown/darkened skin across both gluteal regions, R>L. Wounds on R cover the entire R glute and extend inferiorly just beyond the gluteal cleft. R glute with multiple areas ofraised skin draining some clear brown fluid without any obvious purulence. Areas of fluctuance and induration throughout the region. 2cm area of open ulceration to R lateral upper thigh, just lateralto the area patient describes as most painful. No discrete areas of erythema or warmth. Assessment/Plan 38M with a complex PMH that includes ischemic stroke??with right-sided deficits,??mural thrombus onEliquis,??hidradenitis??suppurativa,??iron deficiency anemia, thrombocytosis, chronic pain??syndrome, HTN, GERD, and depression who presents for??acute onset of??right gluteal/leg pain.??He underwentCT imaging that, when compared to imaging from 07/12/23, showed no significant change of his posterior right gluteal skin thickening and inflammatory changes with no definite drainable collection. There has been??drainage coming from the area drawing concern for??cellulitis??and infection. ??For thisreason,??a general surgery consult was requested. ?? Patient has extensive wounds??secondary to his??hidradenitis??suppurativa across the bilateral??gluteal region. ??He is undergone multiple surgical excisions??for this and takes Ilaris injections for it. ??He??has been seen by the plastic surgery and??dermatology teams at [facility], but was unfortuna tely??denied??procedure due to insurance issues.?He was recently admitted here for similar presentation??and is status post I&D??with Nocatee drain on 07/11 and was treated with IV antibiotics. ??Upon examination of his wounds,??there is a wide on the R glute with areas of fluctuance and induration with multiple openings with??clear drainage.?We will plan to proceed to the OR tomorrow for incision and drainage. We recommend??pain control, IV antibiotics??per the primary team, NPO at midnight with IVF fluids, and hold Eliquis in advance ofthe OR.? Diagnoses: Hidradenitis suppurativa (L73.2) Chronic pain syndrome (G89.4) Depression (F32.A) GERD (gastroesophageal reflux disease) (K21.9) HTN (hypertension) (I10) History of CVA with residual deficit (I69.30) Vitamin D deficiency (E55.9) Iron deficiency anemia (D50.9) Mural thrombus of heart (I51.3) Thrombocytosis (D75.839) ? Plan - NPO at midnight with IVF - OR tomorrow for incision and drainage - Antibiotics per primary team - Multimodal pain control - Hold Eliquis - Follow up with established care teams for management and treatment of hidradenitis - Remainder of care per primary team ?? Please page EGS/ACS [id number] with any questions or concerns. Case discussed with ??Ryb Problem List/Past Medical History Ongoing [facility] Care Management, Door Hanger Carmen Turnerila [phone] Chronic ischemic left ICA stroke Chronic pain [...] = 1 tablet, By Mouth, Daily apixaban: See Instructions, TAKE 1 TABLET BY MOUTH TWICE A DAY Baclofen: 20 mg = 1 tablet, By Mouth, 4 times a day Cholecalciferol: 25 mcg = 1 tablet, By Mouth, Daily Docusate: 100 mg = 1 capsule, By Mouth, 2 times a day Duloxetine: 60 mg = 2 capsule, By Mouth, Daily Duloxetine: TAKE 1 CAPSULE BY MOUTH EVERY [...] day Hydroxyurea: 500 mg, By Mouth, Daily Omeprazole: 1 capsule, By Mouth, Daily Tizanidine: [...] Family History Mother: Asthma Brother: Asthma Radiology Result type:?CT Abd/Pelvis W/ IV Contrast Only Result date:?August 20, 2023 1:55 EDT Result status:?Auth (Verified) Result title:?CT Abd/Pelvis W/ IV Contrast Only Performed by:?Shayan Heaton DO on August 20, 2023 7:41 EDT Verified by:?Oni Rose MD on August 20, 2023 7:46 EDT Encounter info:?[id number], [facility], [place]patient, 08/20/2023 -? * Final Report * ?? Reason For Exam hidradinitis R glute;Other: ?? RESULT: CT Abd/Pelvis W/ IV Contrast Only CT Abd/Pelvis W/ IV Contrast Only? Hx of Present Illness: leaking cysts and pain; Reason: hidradinitis R glute; Clinical Question(s): infection ?? TECHNIQUE: Spiral CT through the abdomen and pelvis with IV contrast formatted in 3 planes. 100 cc of Omnipaque 300 was administered intravenously. This study was performed without oral contrast. Weight-based protocol using automatic tube modulation was used to optimize exposure parameters.? CTDIvol Body: 15.10 mGy, ??DLP Body: 1057 mGy*cm. ? COMPARISON: CT abdomen and pelvis 07/12/2023. ?? FINDINGS:? Composing Machine Operator View Findings, Lines and Tubes: None. ?? Visualized Chest: Mild dependent atelectasis. No focal consolidation. No pleural effusion. The heart is normal in size. No pericardial effusion. ?? Diaphragm: Normal. ?? Liver: Normal. ?? Gallbladder: No CT evidence of gallbladder pathology. ?? Bile ducts: No biliary ductal dilation. ?? Spleen: Normal. ?? Pancreas: Normal. ?? Adrenal glands: Normal. ?? Kidneys and ureters: Symmetric enhancement of the kidneys bilaterally with interval resolution of prior right-sided perinephric and periureteral stranding. No hydronephrosis, stones, or suspicious masses. Parapelvic cyst in the right kidney is again noted. Small hypodensities that are too small to characterize are noted, requiring no dedicated follow up. ?? Bladder: Underdistended with mild circumferential wall thickening. ?? Reproductive organs: Unremarkable. ?? Stomach, small bowel, and large bowel: The stomach is normal. Small bowel of normal course and caliber. Mild colonic stool burden. Rare colonic diverticulosis without evidence of diverticulitis. No evidence of bowel obstruction. ?? Appendix: Normal. ?? Peritoneum and retroperitoneum: No ascites or pneumoperitoneum. No omental or mesenteric lesions. ?? Lymph nodes: No significant change of enlarged right inguinal, right iliac and retroperitoneal lymph nodes. ?? Blood vessels: Normal. No aneurysm. No evidence of venous thrombosis. ?? Abdominal and pelvic wall: No significant change of extensive skin thickening and fat stranding of the posterior right gluteal soft tissues with distal extension to the posterior right thigh soft tissues. No loculated collections to suggest a drainable abscess. Unchanged mild skin thickening of theleft medial soft tissues. ?? Bones: No acute abnormality. Mild levoscoliosis of the visualized lower thoracic and lumbar spine. Mild DJD. ?? IMPRESSION:? No acute intra-abdominal abnormality.? No significant change of posterior right gluteal skin thickening and inflammatory changes. No definite drainable collection. Unchanged minimal skin thickening of the left gluteal soft tissues.? Unchanged enlarged intra-abdominal and retroperitoneal lymph nodes. ?? Interval resolution of prior right kidney and right ureteral inflammatory changes. ?? Wet read provided via [facility] by Dr. Heaton on 08/20/2023 2:10 AM.? I have personally reviewed the images and I agree with this report. WSN: [id number] ? Ordering Physician: Edelmira Littlejohn ?? Signature Line Dictated By: ?Shayan Heaton DO Dictated Date/Time: ?08/20/23 7:41 am Reviewed By: ?Oni Rose MD Signed By: ? Oni Rose MD Signed Date/Time: ? 08/20/23 7:46 am Transcribed By: ? CSB Transcribed Date/Time: ?08/20/23 2:11 am Lab Results Labs Last 24 Hours BLOOD COUNT & DIFF ? Event Name?? Event Result?? Date/Time?? WBC 7 k/mm3 08/20/23 07:33:00 RBC 3.3 m/mm3??Low 08/20/23 07:33:00 Hgb 7.9 Gm/dL??Low 08/20/23 07:33:00 Hct 26.8 %??Low 08/20/23 07:33:00 MCV 81.2 femtoliters 08/20/23 07:33:00 MCH 23.9 pg??Low 08/20/23 07:33:00 MCHC 29.5 g/dL??Low 08/20/23 07:33:00 Platelet Count 784 k/mm3??High 08/20/23 07:33:00 MPV 8.2 femtoliters??Low 08/20/23 07:33:00 Nucleated RBC (Automated) 0 #/100 WBC'S 08/20/23 07:33:00 ? CHEM GENERAL ? Event Name?? Event Result?? Date/Time?? Sodium 134 mmol/L 08/20/23 07:33:00 Chloride 100 mmol/L 08/20/23 07:33:00 Bicarbonate Level 26 mmol/L 08/20/23 07:33:00 Anion Gap 8 08/20/23 07:33:00 Glucose Level 82 mg/dL 08/20/23 07:33:00 BUN 10 mg/dL 08/20/23 07:33:00 Creatinine-Blood 0.7 mg/dL 08/20/23 07:33:00 Calcium, Ionized pH Corrected 1.26 mmol/L 08/20/23 07:33:00 Phosphorus 4 mg/dL 08/20/23 07:33:00 Magnesium 2 mg/dL 08/20/23 07:33:00 ? * Faith PAGAN, Tej Garrett: PERFORM Event Display: History and Physical Hospital Authored Date: I have personally seen and evaluated the patient, lab work and imaging on the day of below/above resident note. ??I agree with the documented resident note and plan for care, as above. ?? Tej Cuevas, ??, MPH, [facility] Trauma, General Surgery and Surgical Critical Care Admission evaluation note * Silvano PAGAN, Otoniel Lopez: PERFORM, MODIFY Event Display: Admission Note Authored Date: Patient: ??ERNESTO MCQUEEN ? Age:??38 Years?Sex:??Male?:??1985?? Chief Complaint/Reason for Consultation coming from home with cyst flare ups gets treatment outpatient, had surgery month and half ago on [facility], insurance denied R buttocks surgery, cyst leaking bloody puss and painful, CVA 3 years ago, aox3 History of Present Illness ?? 38-year-old male with a past medical history of left ICA stroke with residual right-sided spastic hemiparesis in both upper and lower extremities as well as dysarthria and chronic facial drooping, mural thrombus of cardiac apex on Eliquis, severe hidradenitis with recurrent infections and excision was performed.?? Known to follow-up with plastic surgery and dermatology at [facility].?? Also has iron deficiency anemia, thrombocytosis on hydroxyurea, chronic pain syndrome with spasms on baclofen, tizanidine and oxycodone, hypertension, depression.?? Patient has had recent recurrent readmissions. ?? Most recently was admitted 07/05/2023 - 07/16/2023.?? Patient was admitted for hidradenitis suppurativa wound complications with severe intractable?? bilateral buttock pain. Infectious disease was following and patient was on IV antibiotics throughout the stay and discharged on oral antibiotics Augmentin and doxycycline.?? Blood cultures had remained negative.?? There was no significant growth on wound cultures during admission but growth was believed to be suppressed in setting of IV antibiotics.?? Surgical team was following that admission and had provided I&D/wound care, briefly had Saleem drain placed as well.?? Was discharged after removal of drain on oral antibiotics.?? Was also treated for UTI during that admission. ?? Patient states that initially he was doing okay at home. ??However over the last few??days??he has had worsening??pain not controlled with home oxycodone. ??Furthermore he states that??he was not satisfied with wound care provided by home nursing and that they were not??clearing out the collectionsand??purulent discharge was noticed??over the last few days as well.?? Presented to the hospital with concerns of worsening pain, purulence from wound and concerns of repeat infection. ? On??presentation to ED: -Afebrile.?? Hemodynamically stable.?? Saturating well on room air. -Initial blood work with no leukocytosis.?? Hemoglobin and chronic anemia baseline.?? Known thrombocytosis. -Elevation in ESR and CRP significant -No significant electrolyte or renal abnormalities. -CT abdomen/pelvis with contrast done on admission which showed: No acute intra- abdominal abnormality.?? No significant change of posterior right gluteal staining thickening or inflammatory changes.?? No definite drainable collection.?? Unchanged skin thickening of left gluteal soft tissue.?? Lympha denopathy which is consistent with prior.?? Resolution of prior right kidney and right ureteral inflammatory changes. ?? -In ED received single dose of vancomycin, Dilaudid for pain control and was admitted for further management ?? Patient stable during my examination, eager for resolution of ongoing problems. ? Review of Systems Other than those positives as noted above, the remaining comprehensive 14-point review of systems is negative. Objective Vital Signs?? Temperature: 97.9 DegF (08/20/23 05:32:00) Temperature Route: Oral (08/20/23 05:32:00) Pulse Rate: 59 bpm (08/20/23 09:15:00) Respiratory Rate: 16 br/min (08/20/23 10:41:00) Systolic Blood Pressure: 99 mm Hg (08/20/23 09:15:00) Diastolic Blood Pressure:??54 mm Hg??Low (08/20/23 09:15:00) Blood pressure sites: Arm, left (08/20/23 09:15:00) Mean Arterial Pressure: 76 mm Hg (08/20/23 06:52:00) Pulse Pressure: 45 mm Hg (08/20/23 09:15:00) Oxygen Saturation: 97 % (08/20/23 09:15:00) Mode of Delivery (Oxygen): Room air (08/20/23 09:15:00) Early Warning Score: 4 (08/20/23 10:44:29) ? Intake/Output? 08/19 03:07 08/19 07:00 08/18 07:00 08/17 07:00 08/16 07:00 ?? 08/19 10:48 08/19 10:48 08/19 06:59 08/18 06:59 08/17 06:59 Intake ?200 ?0 ?200 ?0 ?0 Output ?400 ?0 ?400 ?0 ?0 Net Total ? -200 ?0 ? -200 ?0 ?0 ? Physical Exam General: Alert, in no acute distress, lying comfortably Head: Has known dysarthria with right facial droop Cardiac: Regular rate rhythm no murmurs Respiratory: Clear to auscultation bilaterally Abdomen: Soft, nontender, no suprapubic tenderness Skin: Significant bilateral buttock excoriated??skin, left??wounds with??serous discharge, right wound with some evidence of cleaned purulence Neuro: Known chronic right upper and lower extremity weakness??due to prior stroke, no new focal deficits Extremities: No peripheral edema Assessment/Plan Diagnoses Cellulitis and abscess of buttock ??(L02.31) Chronic GERD ??(K21.9) Chronic pain syndrome ??(G89.4) Depression ??(F32.A) Gluteal pain ??(M79.18) HTN (hypertension) ??(I10) Hidradenitis suppurativa ??(L73.2) History of CVA with residual deficit ??(I69.30) Iron deficiency anemia ??(D50.9) Mural thrombus of heart ??(I51.3) Thrombocytosis ??(D75.839) Vitamin D deficiency ??(E55.9) ?? 38-year-old male with a past medical history of left ICA stroke with residual right-sided spastic hemiparesis in both upper and lower extremities as well as dysarthria and chronic facial drooping, mural thrombus of cardiac apex on Eliquis, severe hidradenitis with recurrent infections and excision was performed.?? Known to follow-up with plastic surgery and dermatology at [facility].?? Also has iron deficiency anemia, thrombocytosis on hydroxyurea, chronic pain syndrome with spasms on baclofen, tizanidine and oxycodone, hypertension, depression.?? Patient has had recent recurrent readmissions ?? Most recently was admitted 07/05/2023 - 07/16/2023.?? Patient was admitted for hidradenitis suppurativa wound complications with severe intractable?? bilateral buttock pain. Infectious disease was following and patient was on IV antibiotics throughout the stay and discharged on oral antibiotics Augmentin and doxycycline.?? Blood cultures had remained negative.?? There was no significant growth on wound cultures during admission but growth was believed to be suppressed in setting of IV antibiotics.?? Surgical team was following that admission and had provided I&D/wound care, briefly had Nocatee drain placed as well.?? Was discharged after removal of drain on oral antibiotics.?? Was also treated for UTI during that admission. ?? Patient states that initially he was doing okay at home. ??However over the last few??days??he has had worsening??pain not controlled with home oxycodone. ??Furthermore he states that??he was not satisfied with wound care provided by home nursing and that they were not??clearing out the collections and??purulent discharge was noticed??over the last few days as well.?? Presented to the hospitalwith concerns of worsening pain, purulence from wound and concerns of repeat infection. ? Hidradenitis suppurativa (L73.2):?? -Afebrile.?? Hemodynamically stable.?? Saturating well on room air. -Initial blood work with no leukocytosis.?? Hemoglobin and chronic anemia baseline.?? Known thrombocytosis. -Elevation in ESR and CRP significant -No significant electrolyte or renal abnormalities. -CT abdomen/pelvis with contrast done on admission which showed: No acute intra- abdominal abnormality.?? No significant change of posterior right gluteal staining thickening or inflammatory changes.?? No definite drainable collection.?? Unchanged skin thickening of left gluteal soft tissue.?? Lympha denopathy which is consistent with prior.?? Resolution of prior right kidney and right ureteral inflammatory changes. ?? -In ED received single dose of vancomycin, Dilaudid for pain control and was admitted for further management ?? Plan: -Started patient on IV vancomycin and Zosyn similar to treatment used during recent admission,??dueto??concern for recurrence of infection and concerns of??possible treatment resistant infections??infectious disease team has been consulted -Surgical team was following closely previous admission, consulted them as well??to assess for any drainable collections??since purulence was noted on admission -Wound care team also??consulted??to continue wound care -Oxycodone home dose continued for??pain management at 12.5 Mg every 4 hours as needed ? Chronic pain syndrome (G89.4):?? Continuing home gabapentin and Cymbalta. ??Continuing baclofen for spasms ?? Depression (F32.A):?? Will continue home duloxetine ?? GERD (gastroesophageal reflux disease) (K21.9): Home omeprazole switched to pantoprazole ?? HTN (hypertension) (I10):?? Normotensive, can continue home amlodipine ?? History of CVA with residual deficit (I69.30):?? Has history of left ICA with chronic right-sided hemiparesis and deficits Will continue home baclofen and tizanidine for spasms ?? Vitamin D deficiency (E55.9):?? Continue home supplementation ?? Iron deficiency anemia (D50.9):?? At his chronic anemia baseline, will continue ferrous sulfate Transfuse for??hemoglobin <7.0 IV iron should be considered after acute infection concerns are resolved, can follow-up outpatient for this ?? Mural thrombus of heart (I51.3):?? Continue with Eliquis ?? Thrombocytosis (D75.839):?? Continue with hydroxyurea ?? CODE STATUS: Full code VTE prophylaxis: Continue home Eliquis ?? OMN: Infectious disease and surgery team input for??recurrent and persistent??wound infections. Histories Allergies Allergies ?(Active and Proposed Allergies Only) NKA? (Severity: Unknown severity, Onset: Unknown) ? Past [facility] History/Problem List [facility](19) [facility] Carmen Elizabeth [phone] Chronic ischemic left ICA stroke Chronic pain [...] mg oral capsule)?100?Milligram?1?capsule?By Mouth?2times a day?for 30?Days Duloxetine (duloxetine 30 mg oral enteric coated capsule)?2?capsule?60?Milligram?By Mouth?Daily Duloxetine (duloxetine 30 mg oral enteric coated [...] (hydroxyurea 500 mg oral capsule)?500?Milligram?By Mouth?Daily?for 30?Days Omeprazole (omeprazole 40 mg oral enteric coated capsule)?1?capsule?By Mouth?Daily Tizanidine (tiZANidine 2 mg oral tablet)?4?Milligram?2?tablet?By Mouth?Every 8 hours?as needed?as needed for muscle spasm ? Inpatient Medications Medications (23) Active SCHEDULED: (14) Amlodipine 5 mg Tablet (amLODIPine 5 mg [...] ??3 mL, IV Push, Every 8 hours Piperacillin/Tazobactam 3.375 Gm Inj (Zosyn Extended IVPB) ??3.375 Gm, IVPB, Every 8 hours Polyethylene Glycol 17 Gm Powder (MiraLax Powder) ??17 Gm 1 pack/packet, By Mouth, Daily Senna Tablet (Senna 8.6 mg oral tablet) ??17.2 mg 2 tablet, By Mouth, Daily Vancomycin 1250 mg Inj (Vancomycin IVPB) ??1.25 Gm, IVPB, Every 12 hours Vitamin D 1000 IU Tablet (Vitamin D3 1000 intl units oral tablet) ??1,000 International_Units, By Mouth, Daily CONTINUOUS: (0) PRN: (9) Acetaminophen 325 mg [...] IR Tablet (oxyCODONE 5 mg oral tablet) ??12.5 mg, By Mouth, Every 4 hours Polyethylene [...] COUNT & DIFF WBC 7.0 k/mm3 ()?? 08/20/2023 07:33 RBC 3.30 m/mm3 (Low)?? 08/20/2023 07:33 Hgb 7.9 Gm/dL (Low)?? 08/20/2023 07:33 Hct 26.8 % (Low)?? 08/20/2023 07:33 MCV 81.2 femtoliters ()?? 08/20/2023 07:33 MCH 23.9 pg (Low)?? 08/20/2023 07:33 MCHC 29.5 g/dL (Low)?? 08/20/2023 07:33 Platelet Count 784 k/mm3 (High)?? 08/20/2023 07:33 RDW-SD 60.1 femtoliters (High)?? 08/20/2023 07:33 MPV 8.2 femtoliters (Low)?? 08/20/2023 07:33 Nucleated RBC (Automated) 0.0 #/100 WBC'S ()?? 08/20/2023 07:33 Abs. NRBC 0.0 k/mm3 ()?? 08/20/2023 07:33 Abs. Neut 3.9 k/mm3 ()?? 08/20/2023 07:33 Abs. Lymph 2.1 k/mm3 ()?? 08/20/2023 07:33 Abs. [place] 0.7 k/mm3 ()?? 08/20/2023 07:33 Abs. Eo 0.2 k/mm3 ()?? 08/20/2023 07:33 Abs. Baso 0.0 k/mm3 ()?? 08/20/2023 07:33 Neut % 55.2 % ()?? 08/20/2023 07:33 Lymph % 30.4 % ()?? 08/20/2023 07:33 [place] % 10.5 % ()?? 08/20/2023 07:33 Eos % 3.2 % ()?? 08/20/2023 07:33 Baso % 0.4 % ()?? 08/20/2023 07:33 Imm Gran 0.3 % ()?? 08/20/2023 07:33 Abs. Imm Gran 0.0 k/mm3 ()?? 08/20/2023 07:33 ?? CHEM GENERAL Sodium 134 mmol/L ()?? 08/20/2023 07:33 Potassium 4.2 mmol/L ()?? 08/20/2023 07:33 Chloride 100 mmol/L ()?? 08/20/2023 07:33 Bicarbonate Level 26 mmol/L ()?? 08/20/2023 07:33 Anion Gap 8 ()?? 08/20/2023 07:33 Glucose Level 82 mg/dL ()?? 08/20/2023 07:33 BUN 10 mg/dL ()?? 08/20/2023 07:33 Creatinine-Blood 0.7 mg/dL ()?? 08/20/2023 07:33 Estimated GFR Creatinine 121 ML/MIN/1.73 M2 ()?? 08/20/2023 07:33 Calcium 8.6 mg/dL ()?? 08/20/2023 00:25 Calcium, Ionized pH Corrected 1.26 mmol/L ()?? 08/20/2023 07:33 Phosphorus 4.0 mg/dL ()?? 08/20/2023 07:33 Magnesium 2.0 mg/dL ()?? 08/20/2023 07:33 Lactate 1.0 mmol/L ()?? 08/20/2023 07:31 C-Reactive Protein 7.1 mg/dL (High)?? 08/20/2023 07:33 ?? HEME OTHER Sed Rate 82 mm/hr (High)?? 08/20/2023 07:33 ? Abnormal Labs ?? BLOOD COUNT & DIFF Abs. NRBC?0.0 k/mm3 ()?08/20/2023 07:33 Abs. Imm Gran?0.0 k/mm3 ()?08/20/2023 07:33 Hct?26.8 % (Low)?08/20/2023 07:33 Hgb?7.9 Gm/dL (Low)?08/20/2023 07:33 Imm Gran?0.3 % ()?08/20/2023 07:33 MCH?23.9 pg (Low)?08/20/2023 07:33 MCHC?29.5 g/dL (Low)?08/20/2023 07:33 MPV?8.2 femtoliters (Low)?08/20/2023 07:33 Nucleated RBC (Automated)?0.0 #/100 WBC'S ()?08/20/2023 07:33 Platelet Count?784 k/mm3 (High)?08/20/2023 07:33 RBC?3.30 m/mm3 (Low)?08/20/2023 07:33 RDW-SD?60.1 femtoliters (High)?08/20/2023 07:33 ?? CHEM GENERAL C-Reactive Protein?7.1 mg/dL (High)?08/20/2023 07:33 Estimated GFR Creatinine?121 ML/MIN/1.73 M2 ()?08/20/2023:33 ?? HEME OTHER Sed Rate?82 mm/hr (High)?08/20/2023 07:33 ?? Note: Critical results are displayed in red. ? Imaging(s) ?CT Abd/Pelvis W/ IV Contrast Only ?? 08/20/2023 01:55??by Oni Rose MD ?No acute intra-abdominal abnormality. ?? No significant change of posterior right gluteal skin thickening and inflammatory changes. No definite drainable collection. Unchanged minimal skin thickening of the left gluteal soft tissues. ?? Unchanged enlarged intra-abdominal and retroperitoneal lymph nodes. ?? Interval resolution of prior right kidney and right ureteral inflammatory changes. ? * Silvano PAGAN, Otoniel : PERFORM Event Display: Admission Note Authored Date: Evaluated by surgical team, they are planning for??incision and drainage in operative room tomorrow. ??Patient made n.p.o. after midnight except for meds.?? Eliquis held. ??IV fluids started midnight Hospital Progress note * Dany PAGAN, [facility]: PERFORM Event Display: Progress Note Hospital Authored Date: Patient: ??ERNESTO MCQUEEN ? Age:??38 Years?Sex:??Male?:??1985?? Subjective No acute overnight events. Patient does not have any active complaints for me. ??Except for ongoing pain which is controlled with medications. A.m. labs with downtrending H&H 7.2/23.4. Surgical team reached out who recommended that it is safe to resume Eliquis. Review of Systems ?? Negative except as above?? Social History Alcohol Details:??Use: Current. ??Other: 10 drinks per week. Substance Abuse Details:??Use: Current. ??Type: Marijuana. Tobacco Details:??Use: 5-9 cigarettes (between 1/4 to 1/2 pack)/day in last 30 days. Electronic Cigarette/Vaping Details:??Electronic Cigarette Use: Never. ? Family History Mother: Asthma Brother: Asthma ? Objective Vital Signs?? Temperature: 98.5 DegF (08/22/23 05:52:00) Temperature Route: Oral (08/22/23 05:52:00) Pulse Rate: 62 bpm (08/22/23 08:14:00) Respiratory Rate: 16 br/min (08/22/23 13:47:00) Respiratory Rate: 16 br/min (08/22/23 13:47:00) Respiratory Rate: 16 br/min (08/22/23 13:47:00) Systolic Blood Pressure: 119 mm Hg (08/22/23 08:14:00) Diastolic Blood Pressure: 61 mm Hg (08/22/23 08:14:00) Blood pressure sites: Arm, left (08/22/23 05:52:00) Mean Arterial Pressure: 80 mm Hg (08/22/23 08:14:00) Pulse Pressure: 58 mm Hg (08/22/23 08:14:00) Oxygen Saturation: 99 % (08/22/23 05:52:00) Mode of Delivery (Oxygen): Room air (08/22/23 05:52:00) Early Warning Score: 0 (08/22/23 13:50:44) ? Physical Exam General: Alert, in no acute distress, lying comfortably Head: Has known dysarthria with right facial droop Cardiac: Regular rate rhythm no murmurs Respiratory: Clear to auscultation bilaterally Abdomen: Soft, nontender, no suprapubic tenderness Skin: Significant bilateral buttock excoriated??skin, left??wounds with??serous discharge, right wound with some evidence of cleaned purulence Neuro: Known chronic right upper and lower extremity weakness??due to prior stroke, no new focal deficits Extremities: No peripheral edema _ Home Medications Acetaminophen (acetaminophen 325 mg oral [...] mg oral capsule)?100?Milligram?1?capsule?By Mouth?2times a day?for 30?Days Duloxetine (duloxetine 30 mg oral enteric coated capsule)?2?capsule?60?Milligram?By Mouth?Daily Duloxetine (duloxetine 30 mg oral enteric coated [...] (hydroxyurea 500 mg oral capsule)?500?Milligram?By Mouth?Daily?for 30?Days Omeprazole (omeprazole 40 mg oral enteric coated capsule)?1?capsule?By Mouth?Daily Tizanidine (tiZANidine 2 mg oral tablet)?4?Milligram?2?tablet?By Mouth?Every 8 hours?as needed?as needed for muscle spasm ? Inpatient Medications Medications (26) Active SCHEDULED: (15) Amlodipine 5 mg Tablet (amLODIPine 5 mg [...] release tablet) ??40 mg, By Mouth, Daily Piperacillin/Tazobactam 3.375 Gm Inj (Zosyn Extended IVPB) ??3.375 Gm, IVPB, Every 8 hours Polyethylene Glycol 17 Gm Powder (MiraLax Powder) ??17 Gm 1 pack/packet, By Mouth, Daily Senna Tablet (Senna 8.6 mg oral tablet) ??17.2 mg 2 tablet, By Mouth, Daily Vancomycin 1250 mg Inj (Vancomycin IVPB) ??1.25 Gm, IVPB, Every 12 hours Vitamin D 1000 IU Tablet (Vitamin D3 1000 intl units oral tablet) ??1,000 International_Units, By Mouth, Daily CONTINUOUS: (0) PRN: (11) Acetaminophen 325 mg Tablet (Acetaminophen Tablet) ??650 mg, By Mouth, Every 4 hours diphenhydrAMINE 50 mg/mL Inj (DiphenhydrAMINE Inj (PACU ONLY)) ??12.5 mg 0.25 mL, IV Push, Once Docusate Sodium 100 mg Capsule (Docusate Sodium Capsule) ??100 mg 1 capsule, By Mouth, 2 times a day Melatonin 3 mg Tablet (Melatonin Tablet) ??3 mg, By Mouth, Daily at bedtime MorPHINE 2 mg Inj Syringe (MorPHINE Inj) ??2 mg, IV Push Slowly, Every 4 hours NaCl 0.9% Flush 3ml (NaCL 0.9% Flush) ??3 mL, IV Push, Every 8 hours OxyCODONE 5 mg IR Tablet (oxyCODONE 5 mg oral tablet) ??12.5 mg, By Mouth, Every 4 hours Polyethylene [...] 8 hours ? 72 Hour Antibiotic History Active Antibiotics Calendar Day Last Administered First Administered Piperacillin-Tazobactam??3.375 Gm, 25 mL/hr, IVPB, Every 8 hours ?3 08/22/2023 08:16 08/20/2023 09:43 Vancomycin??1.25 Gm, 250 mL/hr, IVPB, Every 12 hours ?3 08/22/2023 04:18 08/20/2023 15:27 ? Stopped Antibiotics Stop Date/Time Last Administered First Administered Vancomycin??1 Gm, 200 mL, 200 mL/hr, IVPB, Once 08/20/2023 01:15 08/20/2023 01:15 08/20/2023 01:15 ? Results Recent Labs BACTERIOLOGY Blood Culture Results Preliminary report (Abnormal)?? 08/20/2023 00:23 Blood Culture Isolate 1 Comment (Abnormal)?? 08/20/2023 00:23 Blood Culture Isolate 2 Comment ()?? 08/20/2023 00:23 Reflex to Rapid ID, EVA Comment ()?? 08/20/2023 00:23 Blood Cult 2 Results Preliminary report ()?? 08/20/2023 00:41 Blood Culture 2 Isolate 1 Comment ()?? 08/20/2023 00:41 A calcoaceticus-baumannii comp,Culture 1 Not Detected ()?? 08/20/2023 00:23 Bacteroides fragilis, Culture 1 Not Detected ()?? 08/20/2023 00:23 Enterobacterales, Culture 1 Not Detected ()?? 08/20/2023 00:23 Enterobacter cloacae complex, Culture 1 Not Detected ()?? 08/20/2023 00:23 Escherichia coli, Culture 1 Not Detected ()?? 08/20/2023 00:23 Klebsiella aerogenes, Culture 1 Not Detected ()?? 08/20/2023 00:23 Klebsiella oxytoca, Culture 1 Not Detected ()?? 08/20/2023 00:23 Klebsiella pneumoniae group, Culture 1 Not Detected ()?? 08/20/2023 00:23 Proteus spp., Culture 1 Not Detected ()?? 08/20/2023 00:23 Salmonella spp., Culture 1 Not Detected ()?? 08/20/2023 00:23 Serratia marcescens, Culture 1 Not Detected ()?? 08/20/2023 00:23 Haemophilus influenzae, Culture 1 Not Detected ()?? 08/20/2023 00:23 Neisseria meningitidis, Culture 1 Not Detected ()?? 08/20/2023 00:23 Pseudomonas aeruginosa, Culture 1 Not Detected ()?? 08/20/2023 00:23 Stenotrophomonas maltophilia, Culture 1 Not Detected ()?? 08/20/2023 00:23 Enterococcus faecalis, Culture 1 Not Detected ()?? 08/20/2023 00:23 Enterococcus faecium, Culture 1 Not Detected ()?? 08/20/2023 00:23 Listeria monocytogenes, Culture 1 Not Detected ()?? 08/20/2023 00:23 Staphylococcus spp., Culture 1 DETECTED (Abnormal)?? 08/20/2023 00:23 Staphylococcus aureus, Culture 1 Not Detected ()?? 08/20/2023 00:23 Staphylococcus epidermidis, Culture 1 Not Detected ()?? 08/20/2023 00:23 Staphylococcus lugdunensis, Culture 1 Not Detected ()?? 08/20/2023 00:23 Streptococcus spp., Culture 1 Not Detected ()?? 08/20/2023 00:23 Streptococcus agalactiae, Culture 1 Not Detected ()?? 08/20/2023 00:23 Streptococcus pneumoniae, Culture 1 Not Detected ()?? 08/20/2023 00:23 Streptococcus pyogenes, Culture 1 Not Detected ()?? 08/20/2023 00:23 Renetta albicans, Culture 1 Not Detected ()?? 08/20/2023 00:23 Renetta auris, Culture 1 Not Detected ()?? 08/20/2023 00:23 Renetta glabrata, Culture 1 Not Detected ()?? 08/20/2023 00:23 Renetta krusei, Culture 1 Not Detected ()?? 08/20/2023 00:23 Renetta parapsilosis, Culture 1 Not Detected ()?? 08/20/2023 00:23 Renetta tropicalis, Culture 1 Not Detected ()?? 08/20/2023 00:23 Cryptococcus neoformans/gattii,Culture 1 Not Detected ()?? 08/20/2023 00:23 IMP (Carbapenemases), Culture 1 Not applicable ()?? 08/20/2023 00:23 KPC (Carbapenemases), Culture 1 Not applicable ()?? 08/20/2023 00:23 OXA-48-like (Carbapenemases), Culture 1 Not applicable ()?? 08/20/2023 00:23 NDM (Carbapenemases), Culture 1 Not applicable ()?? 08/20/2023 00:23 VIM (Carbapenemases), Culture 1 Not applicable ()?? 08/20/2023 00:23 mcr-1 (Colistin Resistance), Culture 1 Not applicable ()?? 08/20/2023 00:23 CTX-M (ESBL), Culture 1 Not applicable ()?? 08/20/2023 00:23 mecA/C(Methicillin Resistance),Culture 1 Not applicable ()?? 08/20/2023 00:23 mecA/C and MREJ (MRSA), Culture 1 Not applicable ()?? 08/20/2023 00:23 Dilia/B (Vancomycin Resistance),Culture 1 Not applicable ()?? 08/20/2023 00:23 ?? BLOOD BANK Blood Type A Positive ()?? 08/20/2023 16:26 Antibody Screen Negative ()?? 08/20/2023 16:26 ?? BLOOD COUNT & DIFF WBC 5.6 k/mm3 ()?? 08/22/2023 10:57 RBC 2.95 m/mm3 (Low)?? 08/22/2023 10:57 Hgb 7.2 Gm/dL (Low)?? 08/22/2023 10:57 Hct 23.4 % (Low)?? 08/22/2023 10:57 MCV 79.3 femtoliters (Low)?? 08/22/2023 10:57 MCH 24.4 pg (Low)?? 08/22/2023 10:57 MCHC 30.8 g/dL (Low)?? 08/22/2023 10:57 Platelet Count 684 k/mm3 (High)?? 08/22/2023 10:57 RDW-SD 57.3 femtoliters (High)?? 08/22/2023 10:57 MPV 8.0 femtoliters (Low)?? 08/22/2023 10:57 Nucleated RBC (Automated) 0.0 #/100 WBC'S ()?? 08/22/2023 10:57 Abs. NRBC 0.0 k/mm3 ()?? 08/22/2023 10:57 ?? CHEM GENERAL Sodium 137 mmol/L ()?? 08/22/2023 10:57 Potassium 4.5 mmol/L ()?? 08/22/2023 10:57 Chloride 102 mmol/L ()?? 08/22/2023 10:57 Bicarbonate Level 26 mmol/L ()?? 08/22/2023 10:57 Anion Gap 9 ()?? 08/22/2023 10:57 Glucose Level 88 mg/dL ()?? 08/22/2023 10:57 BUN 9 mg/dL ()?? 08/22/2023 10:57 Creatinine-Blood 0.8 mg/dL ()?? 08/22/2023 10:57 Estimated GFR Creatinine 116 ML/MIN/1.73 M2 ()?? 08/22/2023 10:57 Calcium 8.6 mg/dL ()?? 08/22/2023 10:57 Phosphorus 3.9 mg/dL ()?? 08/21/2023 04:56 Magnesium 2.3 mg/dL ()?? 08/21/2023 04:56 ? Assessment/Plan Chief Complaint: coming from home with cyst flare ups gets treatment outpatient, had surgery month and half ago on L buttock, insurance denied R buttocks surgery, cyst leaking bloody puss and painful, CVA 3 years ago, aox3 ?? Diagnoses Cellulitis and abscess of buttock ??(L02.31) Chronic GERD ??(K21.9) Chronic pain syndrome ??(G89.4) Depression ??(F32.A) Gluteal pain ??(M79.18) HTN (hypertension) ??(I10) Hidradenitis suppurativa ??(L73.2) History of CVA with residual deficit ??(I69.30) Iron deficiency anemia ??(D50.9) Mural thrombus of heart ??(I51.3) Thrombocytosis ??(D75.839) Vitamin D deficiency ??(E55.9) ? 38-year-old male with a past medical history of left ICA stroke with residual right-sided spastic hemiparesis in both upper and lower extremities as well as dysarthria and chronic facial drooping, mural thrombus of cardiac apex on Eliquis, severe hidradenitis with recurrent infections and excision was performed.?? Known to follow-up with plastic surgery and dermatology at [facility].?? Also has iron deficiency anemia, thrombocytosis on hydroxyurea, chronic pain syndrome with spasms on baclofen, tizanidine and oxycodone, hypertension, depression.?? Patient has had recent recurrent readmissions ?? Most recently was admitted 07/05/2023 - 07/16/2023.?? Patient was admitted for hidradenitis suppurativa wound complications with severe intractable?? bilateral buttock pain. Infectious disease was following and patient was on IV antibiotics throughout the stay and discharged on oral antibiotics Augmentin and doxycycline.?? Blood cultures had remained negative.?? There was no significant growth on wound cultures during admission but growth was believed to be suppressed in setting of IV antibiotics.?? Surgical team was following that admission and had provided I&D/wound care, briefly had Nocatee drain placed as well.?? Was discharged after removal of drain on oral antibiotics.?? Was also treated for UTI during that admission. ?? Patient states that initially he was doing okay at home. ??However over the last few??days??he has had worsening??pain not controlled with home oxycodone. ??Furthermore he states that??he was not satisfied with wound care provided by home nursing and that they were not??clearing out the collectionsand??purulent discharge was noticed??over the last few days as well.?? Presented to the hospital with concerns of worsening pain, purulence from wound and concerns of repeat infection. ? Hidradenitis suppurativa (L73.2): CT abdomen/pelvis with contrast done on admission which showed: No acute intra- abdominal abnormality.?? No significant change of posterior right gluteal staining thickening or inflammatory changes.??No definite drainable collection.?? Unchanged skin thickening of left gluteal soft tissue.?? Lymphad enopathy which is consistent with prior.?? Resolution of prior right kidney and right ureteral inflammatory changes. 08/20: s/p I and D with atleast 6 lesions identified.??Discussed with ID, no OR cultures. Blood cultures from 08/19: Gram positive cocci in clusters -Transition to Augmentin/Doxy upon discharge with 14 days from OR -Will send repeat cultures today -c/w vancomycin and Zosyn?? -Wound care team also??consulted??to continue wound care -Oxycodone home dose continued for??pain management at 12.5 Mg every 4 hours as needed ? Chronic pain syndrome (G89.4):?? Continuing home gabapentin and Cymbalta. ??Continuing baclofen for spasms ?? Depression (F32.A):?? Will continue home duloxetine ?? GERD (gastroesophageal reflux disease) (K21.9): Home omeprazole switched to pantoprazole ?? HTN (hypertension) (I10):?? Normotensive, can continue home amlodipine ?? History of CVA with residual deficit (I69.30):?? Has history of left ICA with chronic right-sided hemiparesis and deficits Will continue home baclofen and tizanidine for spasms ?? Vitamin D deficiency (E55.9):?? Continue home supplementation ?? Iron deficiency anemia (D50.9):?? At his chronic anemia baseline, will continue ferrous sulfate Transfuse for??hemoglobin <7.0 IV iron should be considered after acute infection concerns are resolved, can follow-up outpatient for this ?? Mural thrombus of heart (I51.3):?? Continue with Eliquis ?? Thrombocytosis (D75.839):?? Continue with hydroxyurea ?? CODE STATUS: Full code VTE prophylaxis: Continue home Eliquis ?? OMN: Infectious disease and surgery team,?? Pending clearance of culture??followed by decision of antibiosis. ? Discharge Planning:? * Annamaria Quinn RN: PERFORM, SIGN, VERIFY Event Display: Progress Note Hospital Authored Date: Patient: ERNESTO MCQUEEN Age: 38 years Sex: Male : 1985 Associated Diagnoses: None Author: Annamaria Quinn RN Findings Problem Related to Alteration in Integumentary : Alteration in Integumentary/new 08/22/2023 11:00 EDT Alteration in Integumentary Related to Other: Hidradenitis Goals & Outcomes, Integumentary Pt will maintain intact skin integrity, Wound will progress towards healing Interventions, Integumentary Cleanse all wounds with Normal Saline BH Goals/Interventions, Integumentary Yes Integumentary, Problem Start 08/20/2023 2:14 Reviewed plan with, Integumentary Patient Patient Progression, Integumentary Pt progressing according to plan . Evaluation Patient alert verbal oriented x3, c/o 02/19 pain medicated accordingly took all morning medicationswith out difficulty. IV antibiotics infused with out difficulty. Surgical team was in early this morning and Right Buttock dressing was change. . * Mary Thomas: MODIFY, PERFORM Event Display: Progress Note Hospital Authored Date: Patient: ??ERNESTO MCQUEEN ? Age:??38 Years?Sex:??Male?:??1985?? Subjective No acute issues overnight. He is without new complaints. He remains afebrile. He is tolerating dietwithout nausea or vomiting. No bm overnight. Physical Exam Vitals & Measurements T:??98.5?F?? HR:??62??(Peripheral)?? RR:??18?? BP:??119/61?? SpO2:??99%?? WT:??89??kg?? GENERAL: no acute distress. HEART:?? heart rate regular CHEST: non labored ABDOMEN: Soft, non-tender EXTREMITIES: no edema, NEUROLOGIC: right sided weakness INTEGUMENTARY:??right gluteal??area: several open wounds. packing removed. mo purulent drainage at incision sites. 1satellite area pinpoint??with purulent drainage. repacked with plain packing dsd tocover Assessment/Plan ?? 38M with a complex PMH that includes ischemic stroke??with right-sided deficits,??mural thrombuson Eliquis,??hidradenitis??suppurativa,??iron deficiency anemia, thrombocytosis, chronic pain??syndrome, HTN, GERD, and depression who presents for??acute onset of??right gluteal/leg pain.??He underwe nt CT imaging that, when compared to imaging from 07/12/23, showed no significant change of his posterior right gluteal skin thickening and inflammatory changes with no definite drainable collection. There has been??drainage coming from the area drawing concern for??cellulitis??and infection.?He was taken to the??OR 08/20 and underwent?? I+D of 6 distinct acutely infected hidradenitis tracts, Pt??tolerated procedure well. He was transferred to the??floor after surgery??in stable condition.? Dx: Hidradenitis suppurativa (L73.2) ?? Plan - regular diet - Antibiotics per primary team. follow up with culture - Wound care: daily packing with dsd. and prn as needed - Restart Eliquis - Follow up with established outside facility??surgeon/??hospital care teams for management and treatment of hidradenitis - Remainder of care per primary team ?? EGS will sign off ?? Please page EGS/ACS [id number] with any questions or concerns. Case discussed with ??Ryb ? Intake and Output Intake and Output Results?? This visit (24 hour periods starting at 07:00 EDT)? 08/22/23 *?? 08/21/23?? 08/20/23?? Total Summary?Intake mL?? --?? --?? --?Output mL?? 440?? 950?? 825?Fluid Balance ?? -440?? -950?? -825?? Intake (0)? Output (1)?Urine Voided mL?? 440?? 950?? 825?Total?? 440?? 950?? 825?? Counts (1)?Urine Voided mL?? 440?? 950?? 825? * This column has not completed the indicated time period.?? Labs Last 24 Hours No qualifying data available. * Tej Cuevas MD: PERFORM Event Display: Progress Note Hospital Authored Date: I have personally seen and evaluated the patient, lab work and imaging on the day of below/above resident/PA/CORRESPONDENT note. ??I agree with the documented resident/PA/CORRESPONDENT note and plan for care, as above.? Tej Cuevas, ??, MPH, FACS Trauma, General Surgery and Surgical Critical Care?? Note * Nesha Saenz MD: PERFORM, MODIFY Event Display: Discharge/Transfer Note Hospital Authored Date: Patient: ??ERNESTO MCQUEEN ? Age:??38 Years?Sex:??Male?:??1985?? Patient Information Discharge Location: S64 Primary Care Physician: Derek Tomas MD Admit Date/Time: 08/20/23 03:07 Discharge Disposition Discharge Disposition: Home with Home Health Discharge Diagnosis Hidradenitis suppurativa (L73.2) Gluteal pain (M79.18) Cellulitis and abscess of buttock (L02.31) Chronic pain syndrome (G89.4) Depression (F32.A) Chronic GERD (K21.9) HTN (hypertension) (I10) History of CVA with residual deficit (I69.30) Vitamin D deficiency (E55.9) Iron deficiency anemia (D50.9) Mural thrombus of [...] Duloxetine (duloxetine 30 mg oral enteric coated capsule)?2?capsule?60?Milligram?By Mouth?Daily Duloxetine (duloxetine 30 mg oral enteric coated [...] patient responds Oxycodone (oxyCODONE 5 mg oral tablet)?5?Milligram?1?tablet?By Mouth?Every 6 hours?as needed?for 5?Days?Pain , Severe Pantoprazole (pantoprazole 40 mg oral delayed release tablet)?40?Milligram?By Mouth?Daily Tizanidine (tiZANidine 2 mg oral tablet)?4?Milligram?2?tablet?By Mouth?Every 8 hours?as needed?as needed for muscle spasm ? 72 Hour Antibiotic History Active Antibiotics Calendar Day Last Administered First Administered Piperacillin-Tazobactam??3.375 Gm, 25 mL/hr, IVPB, Every 8 hours ?4 08/23/2023 14:02 08/20/2023 09:43 Vancomycin??1.25 Gm, 250 mL/hr, IVPB, Every 12 hours ?4 08/23/2023 05:19 08/20/2023 15:27 ? Medications Started -amoxicillin/clavulanate 875/125mg PO BID -doxycycline 100mg PO BID till 09/03/23. -Pantoprazole daily -Oxycodone as needed for pain management -Narcan to be used in case of opioid overdose?? Medications Discontinued None Doses Changed None PCP Follow-Up/Heads-Up -Please follow-up with a primary care physician for reviewing list of medications and repeating a set of blood work within 1 week's time. -Please continue wound care as an outpatient. -Present to the emergency department if you experience any of the following symptoms including but not limited to, new fevers, increased oozing/bleeding from the surgical site, increased pain or any other issues. -Please follow-up blood cultures to completion.?? Call your physician or present to the emergency department if you notified that they are positive. - Repeat blood work - Follow-up on discharge. - Please review list of medications. Future Appointments Saturday 9:30 AM EDT ?? With: Dirk Rousseau NP Where: [facility] [address] [place] [address]- Status: Pending Hospital Course This is a 38-year-old gentleman with pertinent past medical history of left ICA stroke with residual right-sided spastic hemiparesis in both upper and lower extremities as well as dysarthria and chronic facial drooping, mural thrombus of cardiac apex on Eliquis, severe hidradenitis with recurrent infections and excision was performed.?? Known to follow-up with plastic surgery and dermatology at [facility].?? Also has iron deficiency anemia, thrombocytosis on hydroxyurea, chronic pain syndrome with spasms on baclofen, tizanidine and oxycodone, hypertension, depression.?? Patient has had recent recurrent readmissions ?? Most recently was admitted 07/05/2023 - 07/16/2023.?? Patient was admitted for hidradenitis suppurativa wound complications with severe intractable?? bilateral buttock pain. Infectious disease was following and patient was on IV antibiotics throughout the stay and discharged on oral antibiotics Augmentin and doxycycline.?? Blood cultures had remained negative.?? There was no significant growth on wound cultures during admission but growth was believed to be suppressed in setting of IV antibiotics.?? Surgical team was following that admission and had provided I&D/wound care, briefly had Nocatee drain placed as well.?? Was discharged after removal of drain on oral antibiotics.?? Was also treated for UTI during that admission. ?? Patient states that initially he was doing okay at home.?? However over the last few days he has had worsening pain not controlled with home oxycodone.?? Furthermore he states that he was not satisfied with wound care provided by home nursing and that they were not clearing out the collections and purulent discharge was noticed over the last few days as well.?? Presented to the hospital with concerns of worsening pain, purulence from wound and concerns of repeat infection. ?? In summary: He underwent workup including CT A/P. ??On 08/20 he underwent I&D??as per surgical services and Eliquis had to be transiently held given excessive bleed.?? Blood cultures from 08/19 grew gram-positive cocci in clusters and ID was consulted???concern for possible??contamination. ??Repeat blood cultures remain negative for 48 hours. ??ID physician on-call??was reached out??and??given repeat blood cultures have remained negative,??patient is afebrile and leukocytosis has resolved, decision was made to transition to p.o. antibiotics??to complete a course of 14 days for??from I&D. Noted to have a downtrend in??CBC??given recent surgical intervention however no overt bleeding???recommended to follow-up CBC as an outpatient. ? Details of hospitalization course is as follows: ? Hidradenitis suppurativa (L73.2): CT abdomen/pelvis with contrast done on admission which showed: No acute intra- abdominal abnormality.?? No significant change of posterior right gluteal staining thickening or inflammatory changes.??No definite drainable collection.?? Unchanged skin thickening of left gluteal soft tissue.?? Lymphad enopathy which is consistent with prior.?? Resolution of prior right kidney and right ureteral inflammatory changes. 08/20: s/p I and D with atleast 6 lesions identified.??Discussed with ID, no OR cultures. Blood cultures from 08/19: Gram positive cocci in clusters -Transition to Augmentin/Doxy upon discharge with 14 days from OR -Will send repeat cultures today -c/w vancomycin and Zosyn?? -Wound care team also??consulted??to continue wound care -Oxycodone home dose continued for??pain management at 12.5 Mg every 4 hours as needed ? Chronic pain syndrome (G89.4):?? Continuing home gabapentin and Cymbalta. ??Continuing baclofen for spasms ?? Depression (F32.A):?? Will continue home duloxetine ?? GERD (gastroesophageal reflux disease) (K21.9): Home omeprazole switched to pantoprazole ?? HTN (hypertension) (I10):?? Normotensive, can continue home amlodipine ?? History of CVA with residual deficit (I69.30):?? Has history of left ICA with chronic right-sided hemiparesis and deficits Will continue home baclofen and tizanidine for spasms ?? Vitamin D deficiency (E55.9):?? Continue home supplementation ?? Iron deficiency anemia (D50.9):?? At his chronic anemia baseline, will continue ferrous sulfate Transfuse for??hemoglobin <7.0 IV iron should be considered after acute infection concerns are resolved, can follow-up outpatient for this ?? Mural thrombus of heart (I51.3):?? Continue with Eliquis ?? Thrombocytosis (D75.839):?? Continue with hydroxyurea ?? CODE STATUS: Full code VTE prophylaxis: Continue home Eliquis Objective . Physical Exam ?General: Alert, in no acute distress, lying comfortably ?Head: Has known dysarthria with right facial droop ?Cardiac: Regular rate rhythm no murmurs ?Respiratory: Clear to auscultation bilaterally ?Abdomen: Soft, nontender, no suprapubic tenderness ?Skin: Significant bilateral buttock excoriated??skin, left??wounds with??serous discharge, right wound with some evidence of cleaned purulence ?Neuro: Known chronic right upper and lower extremity weakness??due to prior stroke, no new focal deficits ?Extremities: No peripheral edema _ Surgical Procedures Incision and Drainage Abscess 08/21/2023 08:20 Pending Results No Pending Results Follow-Up Appointments Added Follow Up ?Time Frame ?Comments Derek Tomas MD Patient Instructions -Please follow-up with a primary care physician for reviewing list of medications and repeating a set of blood work within 1 week's time. -Please continue wound care as an outpatient. -Present to the emergency department if you experience any of the following symptoms including but not limited to, new fevers, increased oozing/bleeding from the surgical site, increased pain or any other issues. -Please follow-up blood cultures to completion.?? Call your physician or present to the emergency department if you notified that they are positive. ? Medication changes are as follows: -amoxicillin/clavulanate 875/125mg PO BID -doxycycline 100mg PO BID till 09/03/23. -Pantoprazole daily -Oxycodone as needed for pain management -Narcan to be used in case of opioid overdose?? Post Discharge Care Discharge ?08/23/23 15:55:00 EDT Home Health Face to Face ^HomeHealthFTF Results Discharge Labs BACTERIOLOGY Blood Culture Results Preliminary report ()?? 08/21/2023 14:36 Blood Culture Specimen Source BLOOD ()?? 08/21/2023 14:36 Blood Culture Isolate 1 Comment ()?? 08/21/2023 14:36 Blood Culture Isolate 2 Comment ()?? 08/20/2023 00:23 Blood Cult Antimicrobial Susceptibility Comment ()?? 08/20/2023 00:23 Reflex to Rapid ID, EVA Comment ()?? 08/20/2023 00:23 Blood Cult 2 Results Preliminary report ()?? 08/21/2023 15:32 Blood Culture 2 Specimen Source BLOOD ()?? 08/21/2023 15:32 Blood Culture 2 Isolate 1 Comment ()?? 08/21/2023 15:32 A calcoaceticus-baumannii comp,Culture 1 Not Detected ()?? 08/20/2023 00:23 Bacteroides fragilis, Culture 1 Not Detected ()?? 08/20/2023 00:23 Enterobacterales, Culture 1 Not Detected ()?? 08/20/2023 00:23 Enterobacter cloacae complex, Culture 1 Not Detected ()?? 08/20/2023 00:23 Escherichia coli, Culture 1 Not Detected ()?? 08/20/2023 00:23 Klebsiella aerogenes, Culture 1 Not Detected ()?? 08/20/2023 00:23 Klebsiella oxytoca, Culture 1 Not Detected ()?? 08/20/2023 00:23 Klebsiella pneumoniae group, Culture 1 Not Detected ()?? 08/20/2023 00:23 Proteus spp., Culture 1 Not Detected ()?? 08/20/2023 00:23 Salmonella spp., Culture 1 Not Detected ()?? 08/20/2023 00:23 Serratia marcescens, Culture 1 Not Detected ()?? 08/20/2023 00:23 Haemophilus influenzae, Culture 1 Not Detected ()?? 08/20/2023 00:23 Neisseria meningitidis, Culture 1 Not Detected ()?? 08/20/2023 00:23 Pseudomonas aeruginosa, Culture 1 Not Detected ()?? 08/20/2023 00:23 Stenotrophomonas maltophilia, Culture 1 Not Detected ()?? 08/20/2023 00:23 Enterococcus faecalis, Culture 1 Not Detected ()?? 08/20/2023 00:23 Enterococcus faecium, Culture 1 Not Detected ()?? 08/20/2023 00:23 Listeria monocytogenes, Culture 1 Not Detected ()?? 08/20/2023 00:23 Staphylococcus spp., Culture 1 DETECTED (Abnormal)?? 08/20/2023 00:23 Staphylococcus aureus, Culture 1 Not Detected ()?? 08/20/2023 00:23 Staphylococcus epidermidis, Culture 1 Not Detected ()?? 08/20/2023 00:23 Staphylococcus lugdunensis, Culture 1 Not Detected ()?? 08/20/2023 00:23 Streptococcus spp., Culture 1 Not Detected ()?? 08/20/2023 00:23 Streptococcus agalactiae, Culture 1 Not Detected ()?? 08/20/2023 00:23 Streptococcus pneumoniae, Culture 1 Not Detected ()?? 08/20/2023 00:23 Streptococcus pyogenes, Culture 1 Not Detected ()?? 08/20/2023 00:23 Renetta albicans, Culture 1 Not Detected ()?? 08/20/2023 00:23 Renetta auris, Culture 1 Not Detected ()?? 08/20/2023 00:23 Renetta glabrata, Culture 1 Not Detected ()?? 08/20/2023 00:23 Renetta krusei, Culture 1 Not Detected ()?? 08/20/2023 00:23 Renetta parapsilosis, Culture 1 Not Detected ()?? 08/20/2023 00:23 Renetta tropicalis, Culture 1 Not Detected ()?? 08/20/2023 00:23 Cryptococcus neoformans/gattii,Culture 1 Not Detected ()?? 08/20/2023 00:23 IMP (Carbapenemases), Culture 1 Not applicable ()?? 08/20/2023 00:23 KPC (Carbapenemases), Culture 1 Not applicable ()?? 08/20/2023 00:23 OXA-48-like (Carbapenemases), Culture 1 Not applicable ()?? 08/20/2023 00:23 NDM (Carbapenemases), Culture 1 Not applicable ()?? 08/20/2023 00:23 VIM (Carbapenemases), Culture 1 Not applicable ()?? 08/20/2023 00:23 mcr-1 (Colistin Resistance), Culture 1 Not applicable ()?? 08/20/2023 00:23 CTX-M (ESBL), Culture 1 Not applicable ()?? 08/20/2023 00:23 mecA/C(Methicillin Resistance),Culture 1 Not applicable ()?? 08/20/2023 00:23 mecA/C and MREJ (MRSA), Culture 1 Not applicable ()?? 08/20/2023 00:23 Dilia/B (Vancomycin Resistance),Culture 1 Not applicable ()?? 08/20/2023 00:23 ?? BLOOD BANK Blood Type A Positive ()?? 08/20/2023 16:26 Antibody Screen Negative ()?? 08/20/2023 16:26 ?? BLOOD COUNT & DIFF WBC 7.6 k/mm3 ()?? 08/23/2023 03:35 RBC 2.95 m/mm3 (Low)?? 08/23/2023 03:35 Hgb 7.1 Gm/dL (Low)?? 08/23/2023 03:35 Hct 23.8 % (Low)?? 08/23/2023 03:35 MCV 80.7 femtoliters ()?? 08/23/2023 03:35 MCH 24.1 pg (Low)?? 08/23/2023 03:35 MCHC 29.8 g/dL (Low)?? 08/23/2023 03:35 Platelet Count 739 k/mm3 (High)?? 08/23/2023 03:35 RDW-SD 59.5 femtoliters (High)?? 08/23/2023 03:35 MPV 8.2 femtoliters (Low)?? 08/23/2023 03:35 Nucleated RBC (Automated) 0.0 #/100 WBC'S ()?? 08/23/2023 03:35 Abs. NRBC 0.0 k/mm3 ()?? 08/23/2023 03:35 Abs. Neut 3.9 k/mm3 ()?? 08/20/2023 07:33 Abs. Lymph 2.1 k/mm3 ()?? 08/20/2023 07:33 Abs. [place] 0.7 k/mm3 ()?? 08/20/2023 07:33 Abs. Eo 0.2 k/mm3 ()?? 08/20/2023 07:33 Abs. Baso 0.0 k/mm3 ()?? 08/20/2023 07:33 Neut % 55.2 % ()?? 08/20/2023 07:33 Lymph % 30.4 % ()?? 08/20/2023 07:33 [place] % 10.5 % ()?? 08/20/2023 07:33 Eos % 3.2 % ()?? 08/20/2023 07:33 Baso % 0.4 % ()?? 08/20/2023 07:33 Imm Gran 0.3 % ()?? 08/20/2023 07:33 Abs. Imm Gran 0.0 k/mm3 ()?? 08/20/2023 07:33 ?? CHEM GENERAL Sodium 139 mmol/L ()?? 08/23/2023 03:35 Potassium 4.6 mmol/L ()?? 08/23/2023 03:35 Chloride 102 mmol/L ()?? 08/23/2023 03:35 Bicarbonate Level 27 mmol/L ()?? 08/23/2023 03:35 Anion Gap 10 ()?? 08/23/2023 03:35 Glucose Level 118 mg/dL (High)?? 08/23/2023 03:35 BUN 11 mg/dL ()?? 08/23/2023 03:35 Creatinine-Blood 0.9 mg/dL ()?? 08/23/2023 03:35 Estimated GFR Creatinine 113 ML/MIN/1.73 M2 ()?? 08/23/2023 03:35 Calcium 9.1 mg/dL ()?? 08/23/2023 03:35 Calcium, Ionized pH Corrected 1.26 mmol/L ()?? 08/20/2023 07:33 Phosphorus 3.9 mg/dL ()?? 08/21/2023 04:56 Magnesium 2.3 mg/dL ()?? 08/21/2023 04:56 Lactate 1.0 mmol/L ()?? 08/20/2023 07:31 C-Reactive Protein 7.1 mg/dL (High)?? 08/20/2023 07:33 ? HEME OTHER Sed Rate 82 mm/hr (High)?? 08/20/2023 07:33 ? TOXICOLOGY/TDM Vancomycin Level, Trough 7.6 mg/L (Low)?? 08/23/2023 03:35 ? 31 minutes spent on discharge * Olga Clancy RN: PERFORM, SIGN, VERIFY Event Display: Case Management Discharge Plan Authored Date: [id number] Patient: ERNESTO MCQUEEN Age: 38 years Sex: Male : 1985 Associated Diagnoses: None Author: Olga Clancy RN Discharge Plan Case Management Discharge Plan : Case Management Discharge Plan Data 08/23/2023 9:49 EDT Discharge Level of Care at Discharge Homehealth/VNA Discharge VNA/Hospice/Home Care [facility] [phone] Discharge Transportation Arranged [facility] [address] [place] [address] Name of Agency #1 [facility] Agency Legal Adviser # Service Categories #1 Occupational Therapy, Physical Therapy, Penitentiary, Other: Home Health Aid Service Comments #1 You are returning home with family care and continued skilled services from [facility]. They have been notified of your discharge home, however, please call agency fi you do not hear from them within 48 hours. * Lynn Ambrocio RN: PERFORM Event Display: Patient Education/Instruction Authored Date: [id number] Inpatient Adult Discharge Instructions. [address] [id number] Name: ERNESTO MCQUEEN : 1985?? Visit: 08/20/2023 03:07?? Current Date: 08/23/2023 18:02 ?? Account: [id number]?? Inpatient Adult Discharge Instructions We would like [...] and their families. Surveys are administered by [employer] ?? If further treatment with your primary care physician or another doctor is recommended, it is important for you to keep the appointment. Call your primary care physician or return to the Emergency Department immediately if your condition worsens, fails to improve, or new symptoms develop. If you need to find a doctor, you can call [facility] for a referral at [phone] or toll free at [phone] ([phone]) or log in to [email or web address] ?? [facility], in keeping with [facility] guidance, no longer requires face masks [...] a health care boyd of your choosing. [employer] is a website that allows you to securely view your medical information including your hospital discharge summary, office visit summaries, medications and follow-up visits. You can also request appointments, renew medications, and request access to your medical information using a health care boyd of your choosing, or just ask a question. You can enroll at [email or web address] or register during your next office visit. You have been discharged from [facility], Patient Care Unit: S64??. If you have any questions regarding these instructions, including results of studies pending, afteryou leave, please call us and we will be happy to assist you 03/12. [facility] Your Care Team Attending Physician Willy Saenz MD?? Consulting Providers Dany MD, Saliha?? Discharging Providers Willy Saenz MD Reason for Your Visit coming from home with cyst flare ups gets treatment outpatient, had surgery month and half ago on Lbuttock, insurance denied R buttocks surgery, cyst leaking bloody puss and painful, CVA 3 years ago, aox3?? Your Diagnosis Chronic GERD Chronic pain syndrome Depression General medical History of CVA with residual deficit HTN (hypertension) Iron deficiency anemia Mural thrombus of heart Thrombocytosis Vitamin D deficiency Tests Performed Below is a partial list of the tests performed during your hospitalization. You may have had other tests and procedures not included in this list. Please discuss all test results with your provider. Basic Metabolic Panel Blood Culture Blood Culture #2 Blood Culture 2 Results Blood Culture Rapid ID, EVA Blood Culture Result BUN CBC CBC w/ Differential Creatinine CRP Electrolytes Glucose Level Ionized Calcium Lactate Level Lactic Acid Level Magnesium Level Phosphorus Level Sedimentation Rate Type and Screen Vancomycin Trough CT Abd/Pelvis W/ IV Contrast Only No tests performed during this visit.?? Primary Care Provider Derek Tomas MD? Advance Directive Health Care Proxy on File Yes - Health Care Proxy Discharge Vitals Temperature: 98.1 DegF Weight: 89 kg Pulse Rate: 66 bpm ?? Respiratory Rate: 17 br/min ?? Respiratory Rate: 17 br/min ?? Systolic Blood Pressure:??139 mm Hg??High ?? Diastolic Blood Pressure: 60 mm Hg ?? Oxygen Saturation: 100 % ?? Studies Pending All studies ordered during this hospital stay have been completed unless listed below. Please discuss all pending results with your provider listed above in these instructions. ?? No incomplete studies found?? What to do next Instructions From Your Doctor -Please follow-up with a primary care physician for reviewing list of medications and repeating a set of blood work including CBC??within 1 week's time. -Please continue wound care as an outpatient. -Present to the emergency department if you experience any of the following symptoms including but not limited to, new fevers, increased oozing/bleeding from the surgical site, increased pain or any other issues. -Please follow-up blood cultures to completion.?? Call your physician or present to the emergency department if you notified that they are positive. ? Medication changes are as follows: -amoxicillin/clavulanate 875/125mg PO BID -doxycycline 100mg PO BID till 09/03/23. -Pantoprazole daily -Oxycodone as needed for pain management -Narcan to be used in case of opioid overdose? Orders? 08/23/23 15:55:00 EDT?? Scheduled Follow-Up Appointments Saturday 9:30 AM EDT ?? With: Dirk Rousseau NP Where: [facility] [address] [place] [address]- Status: Pending You Need to Schedule the Following Appointments Follow Up with??Genoveva PAGAN, Derek Where: [address] [place] [address]- Discharge Medications ERNESTO MCQUEEN :1985 Visit Date:08/20/2023 Medications: Please continue your medications until treatment is completed or stopped by your provider. Medications not listed below should be discontinued. Discuss any questions related to medications with your provider. What How Much When Why Instructions Next Dose New Amoxicillin-Clavulanate (amoxicillin-clavulanate 875 mg-125 mg oral tablet) 1 tab(s) Oral Every 12 hours Duration: 12 Days Pickup at [place] [address] 08/24/23 New Doxycycline (doxycycline hyclate 100 mg oral capsule) 1 capsule Oral Twice a day Duration: 12 Days Pickup at [place] [address] 08/24/23 New nalOXONE (Narcan 4 mg/ 0.1 mL nasal spray) 1 spray(s) Nares, Both Once To be used use one spray in one nostril. if an additional dose is needed, alternate nostril. may repeat every 2 to 3 minutes until patient responds ?? Pickup at [place] [address] New Oxycodone (oxyCODONE 5 mg oral tablet) 1 tab(s) Oral Every 6 hours as needed for Pain , Severe Duration: 5 Days Pickup at [place] [address] 08/24/23 @ 12:00 AM New Pantoprazole (pantoprazole 40 mg oral delayed release tablet) 40 Milligram Oral Daily Pickup at [place] [address] 08/24/23 Unchanged Acetaminophen (acetaminophen 325 mg oral tablet) 975 Milligram Oral 3 times a day Can use over the counter Tylenol or substitute ?? Unchanged Amlodipine (amLODIPine 5 mg oral tablet) 1 tab(s) Oral Daily 08/24/23 Unchanged apixaban (Eliquis 5 mg oral tablet) See instructions TAKE 1 TABLET BY MOUTH TWICE A DAY ?? 08/23/23 Unchanged Baclofen (baclofen 20 mg oral tablet) 1 tab(s) Oral 4 times a day 08/23/23 Unchanged Cholecalciferol (Vitamin D3 1000 intl units oral tablet) 1 tab(s) Oral Daily 08/23/23 Unchanged Docusate (docusate sodium 100 mg oral capsule) 1 capsule Oral Twice a day Duration: 30 Days 08/23/23 Unchanged Duloxetine (duloxetine 30 mg oral enteric coated capsule) TAKE 1 CAPSULE BY MOUTH EVERY DAY ?? 08/24/23 Unchanged Duloxetine (duloxetine 30 mg oral enteric coated capsule) 2 capsule Oral Daily Unchanged Durable Medical Equipment (Vashe wound solution) See instructions Hydradenitis Use 45mL daily ?? Unchanged Ferrous Sulfate (ferrous sulfate 325 mg oral tablet) 1 tab(s) Oral Twice a day Duration: 90 Days TAKE 1 TABLET BY MOUTH EVERY DAY ?? 08/23/23 Unchanged Folic Acid (folic acid 1 mg oral tablet) 1 tab(s) Oral Daily TAKE 1 TABLET BY MOUTH EVERY DAY THAT YOU ARE NOT TAKING METHOTREXATE ?? 08/23/23 Unchanged Gabapentin (gabapentin 600 mg oral tablet) 1 tab(s) Oral 3 times a day 08/23/23 Unchanged Hydroxyurea (hydroxyurea 500 mg oral capsule) 500 Milligram Oral Daily Duration: 30 Days 08/23/23 Unchanged Tizanidine (tiZANidine 2 mg oral tablet) 2 tab(s) Oral Every 8 hours as needed for as needed for muscle spasm Pharmacy Information [facility]: [address], [place] [id number] [phone] ?? What How Much When Comments Stop Taking Omeprazole (omeprazole 40 mg oral enteric coated capsule) 1 capsule Oral Daily Prescription Given During Visit Amoxicillin-Clavulanate (amoxicillin-clavulanate 875 mg-125 mg oral tablet) - 1 tablet, By Mouth, Every 12 hours, # 24 tablet, 0 Refills, [facility], [address] [place] [phone]?? Doxycycline (doxycycline hyclate 100 mg oral capsule) - 1 capsule = 100 mg, By Mouth, 2 times a day, # 24 capsule, 0 Refills, [place] [address] [phone]?? Oxycodone (oxyCODONE 5 mg oral tablet) - 1 tablet = 5 mg, By Mouth, Every 6 hours, # 20 tablet, 0 Refills, [place] [address] [phone]?? Pantoprazole (pantoprazole 40 mg oral delayed release tablet) - 40 mg, By Mouth, Daily, # 21 tablet, 0 Refills, [place] [address] [phone]?? nalOXONE (Narcan 4 mg/0.1 mL nasal spray) - 1 sprays = 4 mg, Nares, Both, Once, # 2 each, 0 Refills, To be used use one spray in one nostril. if an additional dose is needed, alternate nostril. may repeat every 2 to 3 minutes until patient responds, [place] [address] [phone]?? Laboratory Results Below is a partial list of the most recent Laboratory test results done prior to this discharge. You may have had other tests and procedures not included in this list. Please discuss all test resultswith your provider. Basic Metabolic Panel (08/23/2023) ???Sodium - 139 mmol/L???Potassium - 4.6 mmol/L???Chloride - 102 mmol/L???Bicarbonate Level - 27 mmol/L???Anion Gap - 10???Glucose Level - 118 mg/dL???BUN - 11 mg/dL???Creatinine-Blood - 0.9 mg/dL???Estimated GFR Creatinine - 113 ML/MIN/1.73 M2???Calcium - 9.1 mg/dL Blood Culture (08/21/2023) ???Blood Culture Results - Preliminary report???Blood Culture Specimen Source - BLOOD Blood Culture #2 (08/21/2023) ???Blood Cult 2 Results - Preliminary report???Blood Culture 2 Specimen Source - BLOOD Blood Culture 2 Results (08/21/2023) ???Blood Culture 2 Isolate 1 - Comment Blood Culture Rapid ID, EVA (08/20/2023) ???A calcoaceticus-baumannii comp,Culture 1 - Not Detected???Bacteroides fragilis, Culture 1 - Not Detected???Enterobacterales, Culture 1 - Not Detected???Enterobacter cloacae complex, Culture 1 - Not Detected???Escherichia coli, Culture 1 - Not Detected???Klebsiella aerogenes, Culture 1 - Not Detec kimberley???Klebsiella oxytoca, Culture 1 - Not Detected???Klebsiella pneumoniae group, Culture 1 - Not Detected???Proteus spp., Culture 1 - Not Detected???Salmonella spp., Culture 1 - Not Detected???Serratia marcescens, Culture 1 - Not Detected???Haemophilus influenzae, Culture 1 - Not Detected???Neisseria meningitidis, Culture 1 - Not Detected???Pseudomonas aeruginosa, Culture 1 - Not Detected???Stenotrophomonas maltophilia, Culture 1 - Not Detected???Enterococcus faecalis, Culture 1 - Not Detected???Enterococcus faecium, Culture 1 - Not Detected???Listeria monocytogenes, Culture 1 - Not Detected???Staphylococcus spp., Culture 1 - DETECTED???Staphylococcus aureus, Culture 1 - Not Detected???Staphylococcus epidermidis, Culture 1 - Not Detected???Staphylococcus lugdunensis, Culture 1 - Not Detected???Streptococcus spp., Culture 1 - Not Detected???Streptococcus agalactiae, Culture 1 - Not Detec kimberley???Streptococcus pneumoniae, Culture 1 - Not Detected???Streptococcus pyogenes, Culture 1 - Not Detected???Renetta albicans, Culture 1 - Not Detected???Renetta auris, Culture 1 - Not Detected???Renetta glabrata, Culture 1 - Not Detected???Renetta krusei, Culture 1 - Not Detected???Renetta parapsi losis, Culture 1 - Not Detected???Renetta tropicalis, Culture 1 - Not Detected???Cryptococcus neoformans/gattii,Culture 1 - Not Detected???IMP (Carbapenemases), Culture 1 - Not applicable???KPC (Carbapenemases), Culture 1 - Not applicable???OXA-48-like (Carbapenemases), Culture 1 - Not applicable???NDM (Carbapenemases), Culture 1 - Not applicable???VIM (Carbapenemases), Culture 1 - Not applicable???mcr-1 (Colistin Resistance), Culture 1 - Not applicable???CTX-M (ESBL), Culture 1 - Not applicable???mecA/C(Methicillin Resistance),Culture 1 - Not applicable???mecA/C and MREJ (MRSA), Culture 1 - Not applicable???Dilia/B (Vancomycin Resistance),Culture 1 - Not applicable Blood Culture Result (08/21/2023) ???Blood Culture Isolate 1 - Comment BUN (08/21/2023) ???BUN - 13 mg/dL CBC (08/23/2023) ???WBC - 7.6 k/mm3???RBC - 2.95 m/mm3???Hgb - 7.1 Gm/dL???Hct - 23.8 %???MCV - 80.7 femtoliters???MCH - 24.1 pg???MCHC - 29.8 g/dL???Platelet Count - 739 k/mm3???RDW-SD - 59.5 femtoliters???MPV - 8.2femtoliters???Nucleated RBC (Automated) - 0.0 #/100 WBC'S???Abs. NRBC - 0.0 k/mm3 CBC w/ Differential (08/20/2023) ???WBC - 7.0 k/mm3???RBC - 3.30 m/mm3???Hgb - 7.9 Gm/dL???Hct - 26.8 %???MCV - 81.2 femtoliters???MCH - 23.9 pg???MCHC - 29.5 g/dL???Platelet Count - 784 k/mm3???RDW-SD - 60.1 femtoliters???MPV - 8.2femtoliters???Nucleated RBC (Automated) - 0.0 #/100 WBC'S???Abs. NRBC - 0.0 k/mm3???Abs. Neut - 3.9 k/mm3???Abs. Lymph - 2.1 k/mm3???Abs. [place] - 0.7 k/mm3???Abs. Eo - 0.2 k/mm3???Abs. Baso - 0.0 k/mm3???Neut % - 55.2 %???Lymph % - 30.4 %???[place] % - 10.5 %???Eos % - 3.2 %???Baso % - 0.4 %???Imm Gran- 0.3 %???Abs. Imm Gran - 0.0 k/mm3 Creatinine (08/21/2023) ???Creatinine-Blood - 0.9 mg/dL???Estimated GFR Creatinine - 114 ML/MIN/1.73 M2 CRP (08/20/2023) ???C-Reactive Protein - 7.1 mg/dL Electrolytes (08/21/2023) ???Sodium - 137 mmol/L???Potassium - 4.8 mmol/L???Chloride - 103 mmol/L???Bicarbonate Level - 29 mmol/L???Anion Gap - 5 Glucose Level (08/21/2023) ???Glucose Level - 93 mg/dL Ionized Calcium (08/20/2023) ???Calcium, Ionized pH Corrected - 1.26 mmol/L Lactate Level (08/20/2023) ???Lactate - 1.0 mmol/L Lactic Acid Level (08/20/2023) ???Lactate - 1.0 mmol/L Magnesium Level (08/21/2023) ???Magnesium - 2.3 mg/dL Phosphorus Level (08/21/2023) ???Phosphorus - 3.9 mg/dL Sedimentation Rate (08/20/2023) ???Sed Rate - 82 mm/hr Type and Screen (08/20/2023) ???Blood Type - A Positive???Antibody Screen - Negative Vancomycin Trough (08/23/2023) ???Vancomycin Level, Trough - 7.6 mg/L Allergies (NKA means No Known Allergies) NKA Problems Active Problems??(19) [facility] Care Management, Door Hanger Carmen Elizabeth [phone]?? Chronic ischemic left ICA stroke?? Chronic pain?? [...] Belongings I fully understand and agree that [facility] accepts no responsibility for all [...] of Valuable and Belonging List: With patient Disposition of Belongings: Other: belongings in room on floor. Date for Pt to Sign Valuables/Belongings: 08/21/23 07:35:00 ?? Valuables & Belongings ?? Clothes Electronic devices Jewelry Monetary Items Personal devices Miscellaneous Medications (Valuables) Valuables at Bedside Coat, Pants, Shirt, Undergarments ? Valuables Sent Home ? Valuables Sent to Security ? Other Discharge Information ? Case Management Discharge Plan?? Discharge Plan?? Discharge Agency Information?? Discharge Level of Care at Discharge: Homehealth/VNA Name of Agency #1: [facility] Discharge Transportation Arranged: [facility] [address] [facility] ??[phone] Agency Legal Adviser #1: [phone] Discharge VNA/Hospice/Home Care: [facility] [phone] Service Categories #1: Occupational Therapy, Physical Therapy, Penitentiary, Other: Home Health Aid ?? Service Comments #1: You are returning home with family care and continued skilled services from [facility]. They have been notified of your discharge home, however, please call agency fi you do not hear from them within 48 hours. ?? Pulmonary Rehab Status?? Pulmonary Rehab Discharge Status?? Respiratory Rate: 17 br/min Respiratory Rate: 17 br/min ? Common Emergency Awareness Tips IS [...] are strongly encouraged to quit. Please call [facility] at [phone] or [phone] ([phone]) or log in to [email or web address] for referrals to smoking cessation programs. ?? 560 Suicide & Crisis Lifeline is available 03/12 if you or someone you know needs to find a reason to keep living. By calling 873 you'll be connected to a skilled, trained counselor at a crisis center in your area. INPATIENT DISCHARGE INSTRUCTIONS SIGNATURE PAGE ERNESTO MCQUEEN Location:[facility] Registration Date and Time:08/20/2023 03:07 EDT Primary Care Physician: Derek Tomas MD, Attending Physician: Dany PAGAN, Nesha, ERNESTO SALMERON, have received the above patient education materials/instructions and have verbalized understanding. If ambulance or transport services are being used I further acknowledge being given a choice of service. ?? If you need to contact me, please call me at this number: . Patient/Software Support Representative Name: Patient/Software Support Representative Signature: Relationship to Patient: Witness Name/Signature: Date: * Event Display: Provider Clarification Note Please click on pdf link to open report Consult note * Rosa Arellano RN: PERFORM, SIGN, VERIFY Event Display: Consultation Note Authored Date: [id number] Patient: ERNESTO MCQUEEN Age: 38 years Sex: Male : 1985 Associated Diagnoses: None Author: Rosa Arellano RN History of Presenting Problem Date of Service 08/23/2023 Wound RN consult entered to assess buttock... known wound and make topical recommendations. Per brief chart review LICHA Rojo consulted on 08/22/23, assessing area and placing wound care orders. [place] connected with MD Warren Saenz, verified wound RN consult not warranted. Consult discontinued. Plan Time spent 0-15 minutes * Neftali BURNS, Trixie Brennan: PERFORM Event Display: Consultation Note Authored Date: [id number] Patient: ??ERNESTO MQCUEEN ? Age:??38 Years?Sex:??Male?:??1985?? History of Present Illness ?? Date: 08/20/23 ?? Infectious Diseases Attending: Dr. Mccarty ?? Requesting Attending/Provider: Dr. Otoniel Schaefer ?? Reason for Consult: Right??gluteal infection ?? Source of Information: [facility], patient ?? History of Present Illness: The patient is a 38-year-old male with a past medical history significant for??HTN, depression, chronic pain syndrome on oxycodone, KRISTAL stroke with residual right-sided spastic hemiparesis and dysarthria, mural thrombus of cardiac apex on Eliquis, iron deficiency anemia, thrombocytosis previously on hydroxyurea, severe hidradenitis suppurative on Ilaris s/p debridementof L buttocks subcutaneous tissue and I&D of pilonidal cyst (02/08/23, Dr. [facility]), who has had multiple recent admissions for buttock pain in the setting of chronic wounds/abscess with polymicrobial cultures requiring antibiotic courses most recently 07/05-07/15 where he required I&D on 07/11 s/p 14 days of Zosyn/vanco --> Augmentin/doxycycline on discharge (wound cultures were negative but had been on antibiotics prior). He has now been re-admitted on 08/18 for increased right gluteal pain with worsening erythema, edema, and purulent drainage. He recently was preparing for excision and split thickness autograft with his Dermatology team at [facility] but this was denied by his insurance, so his PCP referred him to Plastic Surgery within [facility] on 08/14. On admission he has been afebrile, hemodynamically stable, and without a leukocytosis (WBC 8.5). CT abdomen/pelvis revealed no significant change in the posterior right gluteal skin thickening/inflammatory changes, no drainable collection, and unchanged minimal skin thickening of the left gluteal soft tissues. The previously seen right kidney/ureteral inflammatory changes/stranding have resolved without anyhydronephrosis/stones. He was started on empiric vancomycin and Zosyn, and both Wound Care and Surgery have been consulted for assistance. ID has been consulted for antimicrobial guidance. ?? Today on exam the patient denies any fever, chills, night sweats, nausea, vomiting, abdominal pain,diarrhea, urinary complaints, arthralgias, or rashes. He tells me that the wounds themselves has minimal improvement on the antibiotics he was discharged on, but that the drainage increased promptly after stopping them. Wound care was coming 3x/week for dressing changes. I was not able to evaluate the wounds as he was on a stretcher in the hallway with no privacy curtain available. Per Surgical consultation note, there is a wide?? on the R glute with areas of fluctuance and induration with multiple openings with clear drainage. Inflammatory markers elevated (ESR 82, CRP 7.1). Reviewing previous micro and has grown out Enterococcus faecalis, Streptococci, Enterobacter agglomerans, Klebsiella pneumoniae, and MRSA in 2021. His urine on last admission also grew out an ESBL E. coli, however he was asymptomatic at the time (received a dose of fosfomycin).? Past Medical and Surgical History: ?? -Chronic ischemic left ICA stroke??with residual right-sided spastic hemiparesis and dysarthria -Chronic pain syndrome on oxycodone -Depression -GERD -Severe Hidradenitis suppurativa on Ilaris and followed by [facility] requiring multiple debridements/I&D (L buttocks subcutaneous tissue and I&D of pilonidal cyst 02/08/23,??then again at [facility] on 07/11) -Hypertension -Insomnia -Iron deficiency anemia -Mural thrombus of cardiac apex on Eliquis -Peripheral neuropathy -Thrombocytosis previously on hydroxyurea -Tobacco dependence ?? Recent Antimicrobials: ?? Piperacillin/tazobactam IV (08/19-present) Vancomycin??IV??(08/19-present) ?? Previous antimicrobials: Amoxicillin/clavulanate 875/125mg PO BID (07/16-07/26) Doxycycline 100mg PO BID -07/26) Piperacillin/tazobactam IV (07/11-07/16) Vancomycin??IV??(07/11-07/16) ?? Medications: Reviewed ?? Antimicrobial Allergies: No known antimicrobial allergies. ?? Family History: No relevant history of infectious issues in first degree relatives. ?? Social History and Infectious Diseases Exposure History: The patient lives in an??apartment in [place], [place].??Active tobacco smoker (~5-10 cigarettes??or 05/16- 05/14 PPD) and marijuana use. No heavy alcohol or illicit/IVDU. Review of Systems Denies fever, chills, rigors, night sweats, headache, chest pain, shortness of breath, cough, abdominal pain, nausea, vomiting, diarrhea, dysuria, arthralgias, or rash. ?? Physical Exam Vitals & Measurements Vital Signs?? Temperature: 98.5 DegF (08/20/23 16:20:00) Temperature Route: Oral (08/20/23 16:20:00) Pulse Rate: 63 bpm (08/20/23 16:20:00) Respiratory Rate: 18 br/min (08/20/23 16:20:00) Systolic Blood Pressure: 128 mm Hg (08/20/23 16:20:00) Diastolic Blood Pressure: 63 mm Hg (08/20/23 16:20:00) Blood pressure sites: Arm, left (08/20/23 16:20:00) Mean Arterial Pressure: 85 mm Hg (08/20/23 16:20:00) Pulse Pressure: 65 mm Hg (08/20/23 16:20:00) Oxygen Saturation: 98 % (08/20/23 16:20:00) Mode of Delivery (Oxygen): Room air (08/20/23 16:20:00) Early Warning Score: 1 (08/20/23 16:22:34) ?? GENERAL: In no acute distress HEENT: Anicteric, no subconjunctival petechiae, moist oral mucosa without lesions or thrush NECK: Neck supple, without cervical lymphadenopathy CARDIOVASCULAR: Regular rate and rhythm. Not able to appreciate any murmurs, rubs, or gallops. No peripheral edema. RESPIRATORY: Lungs clear to auscultation, breathing comfortably on room air GASTROINTESTINAL: Non-distended, normoactive bowel sounds, non-tender GENITOURINARY: No CVAT or suprapubic tenderness MUSCULOSKELETAL: Without joint effusions, no tenderness over spine SKIN: No diffuse rash present, no stigmata of infective endocarditis. Not able to evaluate his wounds (see most recent images from admission) NEUROLOGICAL/PSYCH: A&Ox3, right-sided weakness. LINES: PIVs without erythema/edema/tenderness ?? Microbiology/ID Work-up: ?? 08/19 Blood cultures: Collected ?? Prior micro: 07/11 Abscess right buttock: GPCs on Gram stain, culture negative 07/09 Swab right buttock: No organisms on Gram stain, culture negative 07/09 Urine culture: ESBL E. coli 10/02/22 Swab left buttock: Enterococcus faecalis 05/17/22 Abscess right buttock: GPCs on Gram stain, Streptococcus constellatus 03/12/22 Swab right buttock: GPCs on Gram stain, GBS 02/14/22 Swab right buttock: GPCs on Gram stain, Enterobacter agglomerans (amp resistant, intermediate to Unasyn, otherwise susceptible) 01/08/22 Swab right buttock: GBS + MRSA (susceptible to tetracyclines) 08/21/21 Swab left buttock: GBS + Diphtheroid bacilli 08/07/21 Swab right buttock: Klebsiella pneumoniae (amp resistant, otherwise susceptible) ?? Imaging 08/19 CT abdomen/pelvis:??FINDINGS:??Visualized Chest: Mild dependent atelectasis. No focal consolidation. No pleural effusion. The heart is normal in size. No pericardial effusion.??Diaphragm: Normal.??Liver: Normal.??Gallbladder: No CT evidence of gallbladder pathology.??Bile ducts: No biliary ductal dilation.??Spleen: Normal.??Pancreas: Normal.??Adrenal glands: Normal.??Kidneys and ureters: Symmetric enhancement of the kidneys bilaterally with interval resolution of prior right-sided perinephric and periureteral stranding. No hydronephrosis, stones, or suspicious masses. Parapelvic cyst in the right kidney is again noted. Small hypodensities that are too small to characterize are noted, requiring no dedicated follow up.??Bladder: Underdistended with mild circumferential wall thickening.??Reproductive organs: Unremarkable.??Stomach, small bowel, and large bowel: The stomach is normal. Small bowel of normal course and caliber. Mild colonic stool burden. Rare colonic diverticulosis witho ut evidence of diverticulitis. No evidence of bowel obstruction.??Appendix: Normal.??Peritoneum andretroperitoneum: No ascites or pneumoperitoneum. No omental or mesenteric lesions.??Lymph nodes: Nosignificant change of enlarged right inguinal, right iliac and retroperitoneal lymph nodes.??Blood vessels: Normal. No aneurysm. No evidence of venous thrombosis.??Abdominal and pelvic wall: No significant change of extensive skin thickening and fat stranding of the posterior right gluteal soft tissues with distal extension to the posterior right thigh soft tissues. No loculated collections to suggest a drainable abscess. Unchanged mild skin thickening of the left medial soft tissues.??Bones: No acute abnormality. Mild levoscoliosis of the visualized lower thoracic and lumbar spine. Mild DJD. ?? IMPRESSION:??No acute intra-abdominal abnormality.??No significant change of posterior right gluteal skin thickening and inflammatory changes. No definite drainable collection. Unchanged minimal skinthickening of the left gluteal soft tissues.??Unchanged enlarged intra-abdominal and retroperitoneal lymph nodes.??Interval resolution of prior right kidney and right ureteral inflammatory changes. Assessment/Plan ?? 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 [facility]),who has had multiple recent admissions for buttock pain in the setting of chronic wounds/abscess with polymicrobial cultures requiring antibiotic courses (most recently 07/05-07/15) now re-admitted 08/18 for increased right gluteal pain with worsening erythema, edema, and purulent drainage. On admissionhe has been afebrile, hemodynamically stable, and without a leukocytosis (WBC 8.5). CT abdomen/pelvis revealed no significant change in the posterior right gluteal skin thickening/inflammatory changes, no drainable collection, and unchanged minimal skin thickening of the left gluteal soft tissues. He was started on empiric vancomycin and Zosyn, and both Wound Care and Surgery have been consulted for assistance. ID has been consulted for antimicrobial guidance. ?? Not clear that there is a significantly worsening infection as the patient has been without systemic signs and reports that overall the antibiotics themselves did not significantly improve the wounds. Imaging overall unchanged from prior and no collections, however Surgery is taking him to the OR tomorrow for incision and drainage. Would continue the current antimicrobials as they will cover for previous isolates on wound cultures.??The previous ESBL was seen on the urine and he currently has no urinary complaints. Would ask that additional cultures be sent to help guiding antimicrobials. ?? Recommendations: ?? - Continue vancomycin and piperacillin/tazobactam IV - Follow blood cultures - Please send operative cultures to assist with guiding antimicrobial management ?? Thank you for the consultation. Infectious Diseases will continue to follow this patient with you. ?? Trixie Lindsay, DNP, [facility] Infectious Disease ?? Discussed with Dr. Mccarty Recommendations communicated with Dr. Schaefer via TC. ?? (This note was dictated using the [employer] software and any typographical/grammatical errors were notdeliberate) ?? Lab Results Test Name Test Result Date/Time WBC 7.0 k/mm3 08/20/2023 07:33 EDT RBC 3.30 m/mm3 08/20/2023 07:33 EDT Hgb 7.9 Gm/dL 08/20/2023 07:33 EDT Hct 26.8 % 08/20/2023 07:33 EDT MCV 81.2 femtoliters 08/20/2023 07:33 EDT MCH 23.9 pg 08/20/2023 07:33 EDT MCHC 29.5 g/dL 08/20/2023 07:33 EDT Platelet Count 784 k/mm3 08/20/2023 07:33 EDT RDW-SD 60.1 femtoliters 08/20/2023 07:33 EDT MPV 8.2 femtoliters 08/20/2023 07:33 EDT Nucleated RBC (Automated) 0.0 #/100 WBC'S 08/20/2023 07:33 EDT Abs. NRBC 0.0 k/mm3 08/20/2023 07:33 EDT Abs. Neut 3.9 k/mm3 08/20/2023 07:33 EDT Abs. Lymph 2.1 k/mm3 08/20/2023 07:33 EDT Abs. [place] 0.7 k/mm3 08/20/2023 07:33 EDT Abs. Eo 0.2 k/mm3 08/20/2023 07:33 EDT Abs. Baso 0.0 k/mm3 08/20/2023 07:33 EDT Neut % 55.2 % 08/20/2023 07:33 EDT Lymph % 30.4 % 08/20/2023 07:33 EDT [place] % 10.5 % 08/20/2023 07:33 EDT Eos % 3.2 % 08/20/2023 07:33 EDT Baso % 0.4 % 08/20/2023 07:33 EDT Imm Gran 0.3 % 08/20/2023 07:33 EDT Abs. Imm Gran 0.0 k/mm3 08/20/2023 07:33 EDT Sed Rate 82 mm/hr 08/20/2023 07:33 EDT Sodium 134 mmol/L 08/20/2023 07:33 EDT Potassium 4.2 mmol/L 08/20/2023 07:33 EDT Chloride 100 mmol/L 08/20/2023 07:33 EDT Bicarbonate Level 26 mmol/L 08/20/2023 07:33 EDT Anion Gap 8 08/20/2023 07:33 EDT Glucose Level 82 mg/dL 08/20/2023 07:33 EDT BUN 10 mg/dL 08/20/2023 07:33 EDT Creatinine-Blood 0.7 mg/dL 08/20/2023 07:33 EDT Estimated GFR Creatinine 121 ML/MIN/1.73 M2 08/20/2023 07:33 EDT Calcium, Ionized pH Corrected 1.26 mmol/L 08/20/2023 07:33 EDT Phosphorus 4.0 mg/dL 08/20/2023 07:33 EDT Magnesium 2.0 mg/dL 08/20/2023 07:33 EDT C-Reactive Protein 7.1 mg/dL 08/20/2023 07:33 EDT Images left buttock 7x1cm 07/11/23 R buttock 07/11/23 R ischium/buttock from 12 to 7 o'clock w/ 2cm depth w/max depth at 7 o'clock R hip.buttock underming 1cm at 12 o'clock Patient Care team information Care Team Personnel Name: Anu Lipscomb Position: S RN Member Role: Primary Care Nurse Name: Areli Pittman RN Position: [facility] ED RN W/OE and Tasks Member Role: Primary Care Nurse Name: Derek Tomas MD Position: [facility] Resident Member Role: PCP Address: Address: [address] [place] [address] Name: Lianna Epstein RN Position: S RN Member Role: Primary Care Nurse Name: Vicenta Barnett RN Position: [facility] RN Member Role: Primary Care Nurse Name: Farhana Garcia RN Position: [facility] RN Member Role: Primary Care Nurse Name: Farhana Green RN Position: [facility] RN Member Role: Primary Care Nurse Name: Cydney Delgado RN Position: [facility] RN Member Role: Primary Care Nurse Name: Ally Boyd RN Position: [facility] RN Member Role: Primary Care Nurse Name: Javed Oneill RN Position: [facility] RN Member Role: Primary Care Nurse Name: Lynn Stewart RN Position: [facility] RN Member Role: Primary Care Nurse Name: Jolie Villalobos RN Position: [facility] RN Member Role: Primary Care Nurse Name: Axel Savage RN Position: [facility] RN Member Role: Primary Care Nurse Name: Glenys Bee RN Position: S RN Member Role: Primary Care Nurse Name: Praveen Maurer Position: S RN Member Role: Primary Care Nurse Name: Filemon Kign RN Position: S RN Member Role: Primary Care Nurse Name: Lauren Guevara RN Position: S RN Member Role: Primary Care Nurse Name: Lashawn Nagy RN Position: [facility] RN Member Role: Primary Care Nurse Name: Glenys Fox RN Position: S RN Member Role: Primary Care Nurse Care Team Related Persons Name: BEVERLY REYNAGA Address: [place] [address] Name: AISLINN DE LA PAZ Address: home [address] [place] [address]
--- OUTSIDE RECORDS SUMMARY | 2024-01-21 19:34 | XMS_ITS | Continuity of Care Document ---
Author Organization [facility] Address [address] [place] [address]- Care Team Providers Care Binder Stripper Machine Name Role Phone Derek Tomas MD Primary Care Physician [place] [facility] [place] - 12/04/[address] [address]- Allergies, Adverse Reactions, Alerts No Known Allergies Immunizations Given and Recorded Vaccine Date Status Refusal Reason influenza virus vaccine, inactivated 05/18/22 Give n tetanus/diphtheria/pertussis, acel(Tdap) 09/13/19 Recorded Medications acetaminophen 500 mg oral tablet 2 tablet = 1,000 mg, By Mouth, 3 times a day, PRN for pain, # 100 tablet, 6 Refills, Acute 05/12/2415:40:00 EST, 10/25/23 15:40:00 EDT, Tablet, [facility]/pharmacy #[id number], Partial fill upon patient request if the prescription is for a schedule II opioid drug... Start Date: 10/25/23 Stop Date: 05/12/24 Status: Ordered amLODIPine 5 mg oral tablet 5 mg, 1, tablet, By Mouth, Daily, # 30 tablet, Refills 0, Tot. Refills 0, Maintenance, 06/17/23 8:53:00 EST, Route to Pharmacy Electronically, [facility], Partial fill upon patient [...] 08/06/23 9:00:00 EDT, Route to Pharmacy Electronically, [facility]/pharmacy #[id number], 182, cm, 07/26/23 [...] Refills, Maintenance, 09/03/23 17:44:00 EDT, [id number], 193, cm, 09/03/23 14:09:00 EDT, Height, 91.4, kg, 08/30/23 12:03:00 EDT, Dry Weight Start Date: 09/03/23 Status: Ordered duloxetine 30 mg oral enteric coated capsule 1 capsule = 30 mg, By Mouth, 2 times a day, TAKE 1 CAPSULE BY MOUTH EVERY DAY, # 60 capsule, 6 Refills, Maintenance, 10/25/23 15:39:00 EDT, Capsule, [facility]/pharmacy #[id number], Partial fill upon [...] 0 Refills, Maintenance, 10/16/23 15:51:00 EDT, [id number], 193, cm, 10/04/23 3:49:00 EDT, Height, 90.4, [...] tablet, 11 Refills, Maintenance, 08/12/23 13:51:00EDT, Tablet, [facility]/pharmacy #[id number], Partial fill upon [...] 12/24/23 13:33:00 EDT, 11/26/23 13:33:00 EDT, Tablet, [facility]/pharmacy #[id number], Partial fill upon [...] 08/12/23 13:51:00 EDT, Route to Pharmacy Electronically, [facility]/pharmacy #[id number], Partial fill upon patient request if the [...] 0 Refills, Maintenance, 07/16/23 10:05:00 EST, Tablet, [facility], Partial fill upon patient [...] Team Personnel Name: Anu Lipscomb RN Position: [facility] RN Member Role: Primary Care Nurse Name: Jeanne Bryant RN Position: [facility] RN Member Role: Primary Care Nurse Name: Mitch Guido RN Position: [facility] RN Member Role: Primary Care Nurse Name: Areli Pittman RN Position: [facility] ED RN W/OE and Tasks Member Role: Primary Care Nurse Name: Derek Tomas MD Position: [facility] Resident Member Role: PCP Address: Address: [address] [place] [address] Name: Mari Suh RN Position: [facility] RN Member Role: Primary Care Nurse Name: Monique Irwin LPN Position: [facility] RN Member Role: Primary Care Nurse Name: Lianna Epstein RN Position: [facility] RN Member Role: Primary Care Nurse Name: Austin Wright RN Position: [facility] RN Member Role: Primary Care Nurse Name: Mk Knutson LPN Position: [facility] RN Member Role: Primary Care Nurse Name: Betty Fonseca RN Position: [facility] RN Member Role: Primary Care Nurse Name: Farhana Garcia RN Position: [facility] RN Member Role: Primary Care Nurse Name: Kenyatta Villegas RN Position: [facility] RN Member Role: Primary Care Nurse Name: Albertina Adams RN Position: [facility] RN Member Role: Primary Care Nurse Name: Ricardo Russell RN Position: [facility] RN Member Role: Primary Care Nurse Name: Gissell Jernigan RN Position: [facility] RN Member Role: Primary Care Nurse Name: Farhana Green RN Position: [facility] RN Member Role: Primary Care Nurse Name: Cydney Delgado RN Position: [facility] RN Member Role: Primary Care Nurse Name: Debbie Rios RN Position: [facility] RN Member Role: Primary Care Nurse Name: Sharon Mendez RN Position: [facility] RN Member Role: Primary Care Nurse Name: Mookie Christianson RN Position: [facility] RN Member Role: Primary Care Nurse Name: Ally Boyd RN Position: [facility] RN Member Role: Primary Care Nurse Name: Javed Oneill RN Position: [facility] RN Member Role: Primary Care Nurse Name: Frances Quach RN Position: [facility] RN Member Role: Primary Care Nurse Name: Sandie Mejia RN Position: [facility] RN Member Role: Primary Care Nurse Name: Kriss Castillo RN Position: [facility] RN Member Role: Primary Care Nurse Name: Lynn Stewart RN Position: [facility] RN Member Role: Primary Care Nurse Name: Amanda Johnson RN Position: [facility] RN Member Role: Primary Care Nurse Name: Jolie Villalobos RN Position: [facility] RN Member Role: Primary Care Nurse Name: Axel Savage RN Position: [facility] RN Member Role: Primary Care Nurse Name: Dirk Driver RN Position: [facility] RN Member Role: Primary Care Nurse Name: Glenys Bee RN Position: [facility] RN Member Role: Primary Care Nurse Name: Praveen Maurer RN Position: [facility] RN Member Role: Primary Care Nurse Name: Filemon King RN Position: [facility] RN Member Role: Primary Care Nurse Name: Gomez Corona RN Position: [facility] RN Member Role: Primary Care Nurse Name: Lauren Guevara RN Position: [facility] RN Member Role: Primary Care Nurse Name: Annamaria Quinn RN Position: [facility] RN Member Role: Primary Care Nurse Name: Lashawn Nagy RN Position: [facility] RN Member Role: Primary Care Nurse Name: Rhonda Tate LPN Position: [facility] RN Member Role: Primary Care Nurse Name: Jacquelin Naranjo RN Position: [facility] RN Member Role: Primary Care Nurse Name: Glenys Fox RN Position: [facility] RN Member Role: Primary Care Nurse Name: Reilly Moreno RN Position: [facility] RN Member Role: Primary Care Nurse Care Team Related Persons Name: BEVERLY REYNAGA Address: home [address] [place] [address] Name: HEENA MCQUEEN Address: [address] [place] [address] Name: AISLINN DE LA PAZ Address: [address] [address]
--- OUTSIDE RECORDS SUMMARY | 2024-01-21 19:34 | XMS_ITS | Continuity of Care Document ---
Author Organization [facility] Address [address] [place] [address]- Care Team Providers Care Insulator Helper Name Role Phone Derek Tomas MD Primary Care Phys[place] [facility] [place] 11/22/[address] [address]- Attending Physician: Not on Staff, Attending MD [...] 06/17/23 8:53:00 EST, Route to Pharmacy Electronically, [facility], Partial fill upon patient [...] Refills, Maintenance, 09/03/23 17:44:00 EDT, [id number], 193, cm, 09/03/23 14:09:00 EDT, Height, 91.4, kg, 08/30/23 12:03:00 EDT, Dry Weight Start Date: 09/03/23 Status: Ordered duloxetine 30 mg oral enteric coated capsule 1 capsule = 30 mg, By Mouth, 2 times a day, TAKE 1 CAPSULE BY MOUTH EVERY DAY, # 60 capsule, 6 Refills, Maintenance, 10/25/23 15:39:00 EDT, Capsule, [facility]/pharmacy #[id number], Partial fill [...] 0 Refills, Maintenance, 10/16/23 15:51:00 EDT, [id number], 193, cm, 10/04/23 3:49:00 EDT, Height, 90.4, [...] 11/26/23 14:52:00 EDT, 11/19/23 14:52:00 EDT, Tablet, [facility], Partial fill upon [...] EDT, Route to Pharmacy Electronically, [facility]/pharmacy #[id number], Partial fill upon patient request if the [...] 0 Refills, Maintenance, 07/16/23 10:05:00 EST, Tablet, [facility], Partial fill upon patient request if the prescription is for a schedule II opioid drug., 182, cm, 07/04/23 14:56:00 EST,... Start Date: 07/16/23 Status: Ordered Problem List Condition Confirmation Course Effective Dates Status H ealth Status Informant Chronic ischemic left ICA stroke Confirmed Active Chronic pain Confirmed Active Depression Confirmed Active Controlled substance agreement signed 06/06/23 Confirmed Active GERD (gastroesophageal reflux disease) Confirmed [...] Team Personnel Name: Anu Lipscomb RN Position: [facility] RN Member Role: Primary Care Nurse Name: Jeanne Bryant RN Position: [facility] RN Member Role: Primary Care Nurse Name: Mitch Guido RN Position: [facility] RN Member Role: Primary Care Nurse Name: Areli Pittman RN Position: [facility] ED RN W/OE and Tasks Member Role: Primary Care Nurse Name: Derek Tomas MD Position: [facility] Resident Member Role: PCP Address: Address: [address] [place] [address] Name: Mari Suh RN Position: [facility] RN Member Role: Primary Care Nurse Name: Monique Irwin LPN Position: [facility] RN Member Role: Primary Care Nurse Name: Lianna Epstein RN Position: [facility] RN Member Role: Primary Care Nurse Name: Austin Wright RN Position: [facility] RN Member Role: Primary Care Nurse Name: Mk Knutson LPN Position: [facility] RN Member Role: Primary Care Nurse Name: Betty Fonseca RN Position: [facility] RN Member Role: Primary Care Nurse Name: Farhana Garcia RN Position: [facility] RN Member Role: Primary Care Nurse Name: Kenyatta Villegas RN Position: [facility] RN Member Role: Primary Care Nurse Name: Albertina Adams RN Position: [facility] RN Member Role: Primary Care Nurse Name: Ricardo Russell RN Position: [facility] RN Member Role: Primary Care Nurse Name: Gissell Jernigan RN Position: [facility] RN Member Role: Primary Care Nurse Name: Farhana Green RN Position: [facility] RN Member Role: Primary Care Nurse Name: Cydney Delgado RN Position: [facility] RN Member Role: Primary Care Nurse Name: Debbie Rios RN Position: [facility] RN Member Role: Primary Care Nurse Name: Sharon Mendez RN Position: [facility] RN Member Role: Primary Care Nurse Name: Mookie Christianson RN Position: [facility] RN Member Role: Primary Care Nurse Name: Ally Boyd RN Position: [facility] RN Member Role: Primary Care Nurse Name: Javed Oneill RN Position: [facility] RN Member Role: Primary Care Nurse Name: Frances Quach RN Position: [facility] RN Member Role: Primary Care Nurse Name: Sandie Mejia RN Position: [facility] RN Member Role: Primary Care Nurse Name: Kriss Castillo RN Position: [facility] RN Member Role: Primary Care Nurse Name: Lynn Stewart RN Position: [facility] RN Member Role: Primary Care Nurse Name: Amanda Johnson RN Position: [facility] RN Member Role: Primary Care Nurse Name: Jolie Villalobos RN Position: [facility] RN Member Role: Primary Care Nurse Name: Axel Savage RN Position: [facility] RN Member Role: Primary Care Nurse Name: Dirk Driver RN Position: [facility] RN Member Role: Primary Care Nurse Name: Gleyns Bee RN Position: [facility] RN Member Role: Primary Care Nurse Name: Praveen Maurer RN Position: [facility] RN Member Role: Primary Care Nurse Name: Filemon King RN Position: [facility] RN Member Role: Primary Care Nurse Name: Gomez Corona RN Position: [facility] RN Member Role: Primary Care Nurse Name: Lauren Guevara RN Position: [facility] RN Member Role: Primary Care Nurse Name: Annamaria Quinn RN Position: [facility] RN Member Role: Primary Care Nurse Name: Lashawn Nagy RN Position: [facility] RN Member Role: Primary Care Nurse Name: Rhonda Tate LPN Position: [facility] RN Member Role: Primary Care Nurse Name: Jacquelin Naranjo RN Position: [facility] RN Member Role: Primary Care Nurse Name: Glenys Fox RN Position: [facility] RN Member Role: Primary Care Nurse Name: Reilly Moreno RN Position: [facility] RN Member Role: Primary Care Nurse Care Team Related Persons Name: BEVERLY REYNAGA Address: home [address] [place] [address] Name: HEENA MCQUEEN Address: home [address] [place] [address] Name: AISLINN DE LA PAZ Address: home [address] [place] [id number]
--- OUTSIDE RECORDS SUMMARY | 2024-01-21 19:35 | XMS_ITS | Continuity of Care Document ---
Author Organization [facility] Address [address] [place] [address]- Care Team Providers Care Supervisor Cytogenetic Laboratory Name Role Phone Derek Tomas MD Primary Care Physician Encounter [facility] [place] Date(s): 07/26/23 - 10/02/[address] [address]- Attending Physician: Not on Staff, Attending MD Allergies, Adverse Reactions, Alerts No Known Allergies Immunizations Given and Recorded Vaccine Date Status Refusal Reason influenza virus vaccine, inactivated 05/18/22 Give n tetanus/diphtheria/pertussis, acel(Tdap) 09/13/19 Recorded Medications amLODIPine 5 mg oral tablet 5 mg, 1, tablet, By Mouth, Daily, # 30 tablet, Refills 0, Tot. Refills 0, Maintenance, 06/17/23 8:53:00 EST, Route to Pharmacy Electronically, [facility], Partial fill upon patient request if the prescription is for a schedule II opioid... Start Date: 06/17/23 Status: Ordered ascorbic acid 500 mg oral tablet 1 tablet = 500 mg, By Mouth, Daily, # 30 tablet, 0 Refills, Maintenance, 09/06/23 12:42:00 EDT, Tablet, [facility]/pharmacy #[id number], Partial fill [...] to Pharmacy Electronically, [facility]/pharmacy #[id number], 182, cm, 07/26/23 9:16:00 EDT, Height, 89, kg, 07/03/23 11:22:00 EST, Dry Weight Start Date: 08/06/23 Status: Ordered docusate sodium 100 mg oral capsule 1 capsule, By Mouth, 2 times a day, # 60 capsule, 11 Refills, Maintenance, 09/03/23 17:44:00 EDT, [id number], 193, cm, 09/03/23 14:09:00 EDT, Height, 91.4, kg, 08/30/23 12:03:00 EDT, Dry Weight Start Date: 09/03/23 Status: Ordered duloxetine 30 mg oral enteric coated capsule 1 capsule = 30 mg, By Mouth, Daily, TAKE 1 CAPSULE BY MOUTH EVERY DAY, # 30 capsule, 6 Refills, Maintenance, 09/03/23 17:47:00 EDT, Capsule, [facility]/pharmacy #[id number], Partial [...] Refills, Maintenance, 08/12/23 13:51:00EDT, Tablet, [facility]/pharmacy #[id number], Partial fill upon patient request if the prescription is for a schedule II opioid drug., 182, cm, 07/26/23 9:16:00 EDT... Start Date: 08/12/23 Status: Ordered hydroxyurea 500 mg oral capsule = 500 mg, By Mouth, Daily, for 30 days, # 30 capsule, 2 Refills, Acute 10/18/23 14:36:00 EDT, 07/20/23 14:36:00 EST, Capsule, [facility]/pharmacy #[id number], Partial fill upon patient request if the prescriptionis for a schedule II opioid drug., 182, cm, ... Start Date: 07/20/23 Stop Date: 10/18/23 Status: Ordered MiraLax oral powder for reconstitution = 17 Gm, By Mouth, Daily, PRN Constipation, for 30 days, # 30 each, 0 Refills, Acute 10/06/23 12:41:00 EDT, 09/06/23 12:41:00 EDT, REC Powder, [facility]/pharmacy #[id number], Partial fill upon [...] Route to Pharmacy Electronically, [facility]/pharmacy #[id number], Partial fill upon patient request if the [...] 0 Refills, Maintenance, 07/16/23 10:05:00 EST, Tablet, [facility], Partial fill upon patient [...] apex Confirmed Active N CP Care Management, Tile Layer Helper Carmen Elizabeth [phone] Confirmed Active Therapeutic drug monitoring Confirmed Active Peripheral neuropathy Confirmed Active Right spastic hemiparesis Confirmed Active Spasticity Confirmed Active Tobacco dependence Confirmed Active Social History Social History Type Response Smoking Status 5-9 cigarettes (betw een 1/4 to 1/2 pack)/day in last 30 days entered on: 05/16/22 Sex Patient Care team information Care Team Personnel Name: Ruel , Anu Kebede Position: [facility] RN Member Role: Primary Care Nurse Name: Jeanne Bryant RN Position: [facility] RN Member Role: Primary Care Nurse Name: Mitch Guido RN Position: S RN Member Role: Primary Care Nurse Name: Areli Pittman RN Position: [facility] ED RN W/OE and Tasks Member Role: Primary Care Nurse Name: Derek Tomas MD Position: [facility] Resident Member Role: PCP Address: Address: [address] [place] [id number] Name: Monique Irwin LPN Position: [facility] RN Member Role: Primary Care Nurse Name: Lianna Epstein RN Position: [facility] RN Member Role: Primary Care Nurse Name: Vicenta Barnett RN Position: [facility] RN Member Role: Primary Care Nurse Name: Farhana Garcia RN Position: [facility] RN Member Role: Primary Care Nurse Name: Ricardo Russell RN Position: [facility] RN Member Role: Primary Care Nurse Name: Gissell Jernigan RN Position: [facility] RN Member Role: Primary Care Nurse Name: Farhana Green RN Position: [facility] RN Member Role: Primary Care Nurse Name: Cydney Delgdao RN Position: [facility] RN Member Role: Primary Care Nurse Name: Sharon Mendez RN Position: [facility] RN Member Role: Primary Care Nurse Name: Mookie Christianson RN Position: [facility] RN Member Role: Primary Care Nurse Name: Ally Boyd RN Position: [facility] RN Member Role: Primary Care Nurse Name: Javed Oneill RN Position: [facility] RN Member Role: Primary Care Nurse Name: Lynn Stewart RN Position: [facility] RN Member Role: Primary Care Nurse Name: Amanda Johnson RN Position: [facility] RN Member Role: Primary Care Nurse Name: Jolie Villalobos RN Position: [facility] RN Member Role: Primary Care Nurse Name: Axel Savage RN Position: [facility] RN Member Role: Primary Care Nurse Name: Dirk Driver RN Position: [facility] RN Member Role: Primary Care Nurse Name: Glenys Bee RN Position: [facility] RN Member Role: Primary Care Nurse Name: Praveen Maurer Position: [facility] RN Member Role: Primary Care Nurse Name: Filemon King RN Position: [facility] RN Member Role: Primary Care Nurse Name: Lauren Guevara RN Position: [facility] RN Member Role: Primary Care Nurse Name: Annamaria Quinn RN Position: [facility] RN Member Role: Primary Care Nurse Name: Jada Waller RN Position: [facility] RN Member Role: Primary Care Nurse Name: Lashawn Nagy RN Position: [facility] RN Member Role: Primary Care Nurse Name: Jacquelin Naranjo RN Position: [facility] RN Member Role: Primary Care Nurse Name: Glenys Fox RN Position: [facility] RN Member Role: Primary Care Nurse Care Team Related Persons Name: BEVERLY REYNAGA Address: [place] [address] Name: HEENA MCQUEEN Address: home [address] [place] [address] Name: AISLINN DE LA PAZ Address: home [address] [place] [address]
--- OUTSIDE RECORDS SUMMARY | 2024-01-21 19:35 | XMS_ITS | Continuity of Care Document ---
Author Organization [facility] Address [address] [place] [address]- Care Team Providers Care Type Bar And Segment Assembler Name Role Phone Genoveva PAGAN, Derek Primary Care Physician [place] [facility] [place]02[place]23 - 08/01/[address] [address]- Allergies, Adverse Reactions, Alerts No Known Allergies [...] 06/17/23 8:53:00 EST, Route to Pharmacy Electronically, [facility], Partial fill upon patient request if the prescription is for a schedule II opioid... Start Date: 06/17/23 Status: Ordered baclofen 20 mg oral tablet 20 mg, 1, tablet, By Mouth, 4 times a day, # 120 tablet, Refills 0, Tot. Refills 0, Maintenance, 06/03/23 13:25:00 EST, Route to Pharmacy Electronically, [facility], 193, cm, 06/01/23 9:54:00 EST, Height, 90.9, kg, 06/01/23 9:54:00 EST,... Start Date: 06/03/23 Status: Ordered docusate sodium 100 mg oral capsule 100 mg, 1, capsule, By Mouth, 2 times a day, # 60 capsule, Refills 0, Tot. Refills 0, Maintenance, 07/16/23 9:51:00 EST, Route to Pharmacy Electronically, [facility], Partial fill upon patient request if the prescription is for a schedul... Start Date: 07/16/23 Status: Ordered duloxetine 30 mg oral enteric coated capsule 2 capsule = 60 mg, By Mouth, Daily, # 60 capsule, 0 Refills, Maintenance, 07/16/23 9:56:00 EST, [facility], 182, cm, 07/04/23 14:56:00 EST, Height, 89, kg, 07/03/23 11:22:00 EST, Dry Weight Start Date: 07/16/23 Status: Ordered Eliquis 5 mg oral tablet See Instructions, TAKE 1 TABLET BY MOUTH TWICE A DAY, # 60 tablet, 11 Refills, Maintenance, 06/12/23 6:31:00 EST, [id number], 193, cm, 06/01/23 9:54:00 EST, Height, 90.9, [...] 0 Refills, Maintenance, 07/16/23 10:05:00 EST, Tablet, [facility], Partial fill upon [...] apex Confirmed Active N CP Care Management, Wood Machine Carver Carmen Elizabeth [phone] Confirmed Active Therapeutic drug monitoring Confirmed Active Peripheral neuropathy Confirmed Active Right spastic hemiparesis Confirmed Active Spasticity Confirmed Active Tobacco dependence Confirmed Active Social History Social History Type Response Smoking Status 5-9 cigarettes (betw een 1/4 to 1/2 pack)/day in last 30 days entered on: 05/16/22 Sex Patient Care team information Care Team Personnel Name: Anu Lipscomb Position: [facility] RN Member Role: Primary Care Nurse Name: Areli Pittman RN Position: [facility] ED RN W/OE and Tasks Member Role: Primary Care Nurse Name: Derek Tomas MD Position: [facility] Resident Member Role: PCP Address: Address: [address] [place] [address] Name: Farhana Garcia RN Position: [facility] [...] Persons Name: BEVERLY REYNAGA Address: [place] [address] Name: AISLINN DE LA PAZ Address: [address] [place] [address]
--- OUTSIDE RECORDS SUMMARY | 2024-01-21 19:35 | XMS_ITS | Continuity of Care Document ---
Author Organization [facility] Address [address] [place] [address]- Care Team Providers Care Credit Specialist Name Role Phone Derek Tomas MD Primary Care Physician En[place] [facility] [place] Date(s): 06/21/23 - 07/21/[address] [address]- Attending Physician: Sangeetha Latif Admitting Physician: AdmSangeetha steward Referring Physician: Admtr, ArShazia Allergies, Adverse Reactions, [...] Route to Pharmacy Electronically, [facility], Partial fill upon patient request if the prescription is for a schedule II opioid... Start Date: 06/17/23 Status: Ordered Augmentin 875 mg-125 mg oral tablet 1 tablet, By Mouth, Every 12 hours, for 10 days, # 20 tablet, 0 Refills, Acute 07/26/23 9:53:00 EDT, 07/16/23 9:53:00 EST, Tablet, [facility], Partial fill upon patient request if the prescription is for a schedule II opioid drug., 182,... Start Date: 07/16/23 Stop Date: 07/26/23 Status: Ordered baclofen 20 mg oral tablet 20 mg, 1, tablet, By Mouth, 4 times a day, # 120 tablet, Refills 0, Tot. Refills 0, Maintenance, 06/03/23 13:25:00 EST, Route to Pharmacy Electronically, [facility], 193, cm, 06/01/23 9:54:00 EST, Height, 90.9, kg, 06/01/23 9:54:00 EST,... Start Date: 06/03/23 Status: Ordered docusate sodium 100 mg oral capsule 100 mg, 1, capsule, By Mouth, 2 times a day, # 60 capsule, Refills 0, Tot. Refills 0, Maintenance, 07/16/23 9:51:00 EST, Route to Pharmacy Electronically, [facility], Partial fill upon patient request if the prescription is for a schedul... Start Date: 07/16/23 Status: Ordered doxycycline hyclate 100 mg oral tablet 1 tablet = 100 mg, By Mouth, 2 times a day, for 10 days, # 20 tablet, 0 Refills, Acute 07/26/23 9:53:00 EDT, 07/16/23 9:53:00 EST, Tablet, [facility], Partial fill upon patient request if the prescription is for a schedule II opioid drug... Start Date: 07/16/23 Stop Date: 07/26/23 Status: Ordered duloxetine 30 mg oral enteric coated capsule 2 capsule = 60 mg, By Mouth, Daily, # 60 capsule, 0 Refills, Maintenance, 07/16/23 9:56:00 EST, [facility] 3, 182, cm, 07/04/23 14:56:00 EST, Height, 89, kg, 07/03/23 11:22:00 EST, Dry Weight Start Date: 07/16/23 Status: Ordered Eliquis 5 mg oral tablet See Instructions, TAKE 1 TABLET BY MOUTH TWICE A DAY, # 60 tablet, 11 Refills, Maintenance, 06/12/23 6:31:00 EST, [id number], 193, cm, 06/01/23 9:54:00 EST, Height, 90.9, kg, 06/01/23 9:54:00 EST, Dry Weight Start Date: 06/12/23 Status: Ordered ferrous sulfate 325 mg oral tablet 1 tablet = 325 mg, By Mouth, Daily, TAKE 1 TABLET BY MOUTH EVERY DAY, # 30 tablet, 0 Refills, Maintenance, 06/12/23 6:46:00 EST, Tablet, [facility] #[id number], Partial fill upon patient request if [...] 6:46:00 EST, Route to Pharmacy Electronically, [facility] #[id number], Partial fill upon... Start Date: 06/12/23 Status: Ordered gabapentin 600 mg oral tablet 1 tablet = 600 mg, By Mouth, 3 times a day, # 90 tablet, 0 Refills, Maintenance, 06/21/23 12:34:00 EST, Tablet, [facility] #[id number], Partial fill upon patient request if the prescription is for a schedule II opioid drug., 190, cm, 06/21/23 11:49:00 EST... Start Date: 06/21/23 Stop Date: 07/21/23 Status: Ordered hydroxyurea 500 mg oral capsule = 500 mg, By Mouth, Daily, for 30 days, # 30 capsule, 2 Refills, Acute 10/18/23 14:36:00 EDT, 07/20/23 14:36:00 EST, Capsule, [facility] #[id number], Partial fill upon patient request if the prescriptionis for a schedule II opioid drug., 182, cm, ... Start Date: 07/20/23 Stop Date: 10/18/23 Status: Ordered omeprazole 40 mg oral enteric coated capsule 1 capsule, By Mouth, Daily, # 30 capsule, 5 Refills, Maintenance, 08/13/22 15:28:00 EDT, [facility] #[id number], 193.04, cm, 07/23/22 14:07:00 EDT, Height, 99.6, kg, 06/06/22 18:00:00 EST, Dry Weight Start Date: 08/13/22 Status: Ordered tiZANidine 2 mg oral tablet 4 mg, 2, tablet, By Mouth, Every 8 hours, PRN, # 90 tablet, Refills 0, Tot. Refills 0, Maintenance,as needed for muscle spasm, 06/21/23 12:37:00 EST, Route to Pharmacy Electronically, [facility] #[id number], Partial fill upon patient request if the presc... Start Date: 06/21/23 Status: Ordered Vitamin D3 1000 intl units oral tablet 1 tablet = 25 mcg, By Mouth, Daily, # 30 tablet, 0 Refills, Maintenance, 07/16/23 10:05:00 EST, Tablet, [facility], Partial fill upon patient [...] apex Confirmed Active [facility] CP Care Management, Knowledge Engineer Carmen Elizabeth [phone] Confirmed Active Therapeutic drug monitoring Confirmed Active [...] Care Team Personnel Name: Anu Lipscomb Position: [facility] RN Member Role: Primary Care Nurse Name: Areli Pittman RN Position: [facility] ED RN W/OE and Tasks Member Role: Primary Care Nurse Name: Derek Tomas MD Position: [facility] Resident Member Role: PCP Address: Address: [address] [place] [address]- Name: Farhana Garcia RN Position: [facility] RN Member Role: Primary Care Nurse Name: Farhana Green RN Position: [facility] RN Member Role: Primary Care Nurse Name: Ally Boyd RN Position: [facility] RN Member Role: Primary Care Nurse Name: Javed Oneill RN Position: [facility] RN Member Role: Primary Care Nurse Name: Lynn Stewart RN Position: [facility] RN Member Role: Primary Care Nurse Name: Jolie Villalobos RN Position: [facility] RN Member Role: Primary Care Nurse Name: Axel Savage RN Position: [facility] RN Member Role: Primary Care Nurse Name: Glenys Bee RN Position: [facility] RN Member Role: Primary Care Nurse Name: Filemon King RN Position: [facility] RN Member Role: Primary Care Nurse Name: Lauren Guevara RN Position: [facility] RN Member Role: Primary Care Nurse Name: Lashawn Nagy RN Position: [facility] RN Member Role: Primary Care Nurse Name: Glenys Fox RN Position: [facility] RN Member Role: Primary Care Nurse Care Team Related Persons Name: BEVERLY REYNAGA Address: [place] [address] Name: AISLINN DE LA PAZ Address: [address] [place] [address]
--- OUTSIDE RECORDS SUMMARY | 2024-01-21 19:35 | XMS_ITS | Continuity of Care Document ---
Author Organization [facility] ter Address [address] [place] [id number] Care Team Providers Care Cobol Programmer Name Role Phone Genoveva PAGAN, Derek Primary Care Physician [place] [facility] [place]): [place]26[place]23 - 12/31/[address] [id number] Encounter Diagnosis Hydradenitis(Final) - 12/27/23 Discharge Disposition: A-Transfer VNA/Home Health Attending Physician: Dany PAGAN, [facility] Admitting Physician: Chris Poe MD Referring Physician: Not on Staff, Referring [...] Acute 05/12/2415:40:00 EST, 10/25/23 15:40:00 EDT, Tablet, [id number], Partial fill upon patient request if the prescription is for a schedule II opioid drug... Start Date: 10/25/23 Stop Date: 05/12/24 Status: Ordered Acetaminophen Tablet 975 mg, Tablet, By Mouth, Temperature Greater than 100.5, 12/31/23 10:00:00 EDT Start Date: 12/31/23 Stop Date: 12/31/23 Status: Completed ascorbic acid 500 mg oral [...] 01/05/24 12:53:00 EDT, 12/31/23 12:53:00 EDT, Tablet, [facility], Partial fill upon patientrequest if the prescription is for a schedule II op... Start Date: 12/31/23 Stop Date: 01/05/24 Status: Ordered Dilaudid 2 mg oral tablet 2 mg, Tablet, By Mouth, Every 8 hours, PRN for Pain , Severe, Routine, 12/26/23 14:16:00 EDT Start Date: 12/26/23 Stop Date: 12/31/23 Status: Discontinued docusate sodium 100 mg oral capsule 1 capsule, By Mouth, 2 times a day, # 60 capsule, 11 Refills, Maintenance, 09/03/23 17:44:00 EDT, [id number], 193, cm, 09/03/23 14:09:00 EDT, Height, 91.4, kg, 08/30/23 12:03:00 EDT, Dry Weight Start Date: 09/03/23 Status: Ordered duloxetine 30 mg oral enteric coated capsule 1 capsule = 30 mg, By Mouth, 2 times a day, TAKE 1 CAPSULE BY MOUTH EVERY DAY, # 60 capsule, 6 Refills, Maintenance, 10/25/23 15:39:00 EDT, Capsule, [id number], Partial fill upon [...] 0 Refills, Maintenance, 10/16/23 15:51:00 EDT, [id number], 193, cm, 10/04/23 3:49:00 EDT, Height, 90.4, [...] oral capsule 600 mg, Capsule, By Mouth, 12/31/23 9:00:00 EDT Start Date: 12/31/23 Stop Date: 12/31/23 Status: Completed gabapentin 600 mg oral tablet [...] Refills, Maintenance, 12/11/23 14:15:00 EDT, [id number], 194, cm, 11/20/23 13:14:00 EDT, Height, 93.9, [...] 0 Refills, Soft Stop, 08/23/23 15:54:00 EDT, [facility]... Start Date: 08/23/23 Status: Ordered oxyCODONE 30 mg oral tablet 1 tablet = 30 mg, By Mouth, Every 6 hours, for 7 days, # 28 tablet, 0 Refills, Acute 01/07/24 12:55:00 EDT, 12/31/23 12:55:00 EDT, [facility], Partial fill upon patient request if the prescription is for a schedule II opioid drug., 194,... Start Date: 12/31/23 Stop Date: 01/07/24 Status: Ordered oxyCODONE 5 mg oral tablet 30 mg, Tablet, By Mouth, 12/31/23 10:00:00 EDT Start Date: 12/31/23 Stop Date: 12/31/23 Status: Completed pantoprazole 40 mg oral delayed [...] 10:05:00 EST, Tablet, [facility], Partial fill upon patient request [...] Exam Date Time Procedure Performing Provider Status 12/26/23 1:[address] Pelvis W/ Contrast Lana Rodriguez; Auth (Verified) Notes: (CT Pelvis W/ Contrast) Reason For Exam: Pain RESULT: CT Pelvis W/ Contrast CT Ext Lower W/ Contrast Right, CT Pelvis W/ Contrast Reason: Infection; Clinical Question(s): Femur; posterior thigh and right buttock. Review of the patient's electronic medical record reveals a history of right gluteal hidradenitis status post incision and drainage. TECHNIQUE: Helical CT PELVIS and of the RIGHT LOWER EXTREMITY extending from the hip to the knee was performed with contrast formatted in 3 planes. 100 cc of Omnipaque 300 was administered intravenously. Weight-based protocol using automatic tube modulation was used to optimize exposure parameters. (accession [id number]), CTDIvol Body: 20.95 mGy, DLP Body: 2424 mGy*cm. (accession [id number]) COMPARISONS: CT of the pelvis dated 10/20/2023. FINDINGS: Bones and joints: No fracture or dislocation is present. No focal cortical destruction or periosteal reaction. There is joint space narrowing and mild bony proliferation in the right hip. There is a right os acetabuli. There is joint space narrowing in the medial and lateral aspects of the right knee. There is deformity of the left occipital femur status post fixation with a single surgical screw. Marked joint space narrowing and bony proliferation of the left hip is seen. Soft Tissues: There is marked irregular skin thickening partially visualized over the right glutealregion and extending inferiorly into the posterior upper thigh. Within this region, there are several areas of irregularly-shaped hypodensity, largest of which is seen in the inferior right gluteal region and measures approximately 1.2 x 4.2 x 3.2 cm and demonstrates thin rim of partial enhancement. More inferiorly in the proximal thigh, there are irregular regions of additional hypodensity within the area of the skin thickening posteriorly. On the coronal images, there is thin rim of partial enhancement (images 86 through 89 of series 306). Deep to this region, there is mild subcutaneous fatstranding. Skin thickening and subcutaneous fat stranding also extends along the posterolateral aspect of the right hip and posterolateral right proximal thigh. No subcutaneous gas is seen. Included musculature appears unremarkable for the technique. Right external iliac lymph nodes measure to 1.5 cm in short axis. Right inguinal lymph node measures 2 cm in short axis. The included portion of the bowel appears unremarkable. The bladder is unremarkable. Small hypodensity in the right kidney is too small to characterize though appears unchanged from 09/22/2023 and is statistically most occluded to reflect a cyst. No further follow-up of this lesion is required. IMPRESSION: 1. No CT evidence of osteomyelitis. 2. Irregular skin thickening over the right inferior gluteal region extending into the posterior right proximal thigh with superficial irregular areas of hypodensity within this area of skin thickening with partial enhancement, which may reflect developing abscesses or phlegmonous change. 3. No subcutaneous gas. Preliminary radiology report issued by [facility] at 4:10 AM on 12/26/2023. Agree with salient details of report. WSN: [id number] Ordering Physician: Filemon Stewart Dictated By: Nadege Gama MD Dictated Date/Time: 12/26/23 7:24 am Reviewed By: Nadege Gama MD Signed By: Nadege Gama MD Signed Date/Time: 12/26/23 7:24 am Transcribed By: ZEHRA Transcribed Date/Time: 12/26/23 7:06 am * Exam Date Time Procedure Performing Provider Status 12/26/23 1:[address] Ext Lower W/ Contrast Right Mi Rodriguez; Modified Notes: (CT Ext Lower W/ Contrast Right) Reason For Exam: Infection RESULT: CT Ext Lower W/ Contrast Right CT Ext Lower W/ Contrast Right, CT Pelvis W/ Contrast Reason: Infection; Clinical Question(s): Femur; posterior thigh and right buttock. Review of the patient's electronic medical record reveals a history of right gluteal hidradenitis status post incision and drainage. TECHNIQUE: Helical CT PELVIS and of the RIGHT LOWER EXTREMITY extending from the hip to the knee was performed with contrast formatted in 3 planes. 100 cc of Omnipaque 300 was administered intravenously. Weight-based protocol using automatic tube modulation was used to optimize exposure parameters. (accession [id number]), CTDIvol Body: 20.95 mGy, DLP Body: 2424 mGy*cm. (accession [id number]) COMPARISONS: CT of the pelvis dated 10/20/2023. FINDINGS: Bones and joints: No fracture or dislocation is present. No focal cortical destruction or periosteal reaction. There is joint space narrowing and mild bony proliferation in the right hip. There is a right os acetabuli. There is joint space narrowing in the medial and lateral aspects of the right knee. There is deformity of the left occipital femur status post fixation with a single surgical screw. Marked joint space narrowing and bony proliferation of the left hip is seen. Soft Tissues: There is marked irregular skin thickening partially visualized over the right glutealregion and extending inferiorly into the posterior upper thigh. Within this region, there are several areas of irregularly-shaped hypodensity, largest of which is seen in the inferior right gluteal region and measures approximately 1.2 x 4.2 x 3.2 cm and demonstrates thin rim of partial enhancement. More inferiorly in the proximal thigh, there are irregular regions of additional hypodensity within the area of the skin thickening posteriorly. On the coronal images, there is thin rim of partial enhancement (images 86 through 89 of series 306). Deep to this region, there is mild subcutaneous fatstranding. Skin thickening and subcutaneous fat stranding also extends along the posterolateral aspect of the right hip and posterolateral right proximal thigh. No subcutaneous gas is seen. Included musculature appears unremarkable for the technique. Right external iliac lymph nodes measure to 1.5 cm in short axis. Right inguinal lymph node measures 2 cm in short axis. The included portion of the bowel appears unremarkable. The bladder is unremarkable. Small hypodensity in the right kidney is too small to characterize though appears unchanged from 09/22/2023 and is statistically most occluded to reflect a cyst. No further follow-up of this lesion is required. IMPRESSION: 1. No CT evidence of osteomyelitis. 2. Irregular skin thickening over the right inferior gluteal region extending into the posterior right proximal thigh with superficial irregular areas of hypodensity within this area of skin thickening with partial enhancement, which may reflect developing abscesses or phlegmonous change. 3. No subcutaneous gas. Preliminary radiology report issued by [facility] at 4:10 AM on 12/26/2023. Agree with salient details of report. WSN: [id number] Ordering Physician: Filemon Stewart Dictated By: Nadege Gama MD Dictated Date/Time: 12/26/23 7:24 am Reviewed By: Nadege Gama MD Signed By: Nadege Gama MD Signed Date/Time: 12/26/23 7:24 am Transcribed By: ZEHRA Transcribed Date/Time: 12/26/23 7:06 am Vital Signs Most recent to oldest [Reference Range]: 1 2 3 4 Weight 93.0 kg (12/27/23 5:29 AM) Oxygen Saturation [94-100 %] 98 % (12/31/23 7:37 AM) 95 % (12/31/23 3:36 AM) 100 % (12/30/23 7:52 PM) Pulse Rate [55-90 bpm] 56 bpm (12/31/23 7:37 AM) 50 bpm *L* (12/31/23 3:36 AM) 51 bpm *L* (12/30/23 7:52 PM) Blood Pressure [90-138/55-84 mm Hg] 96/40mm Hg (12/31/23 7:37 AM) 96/65mm Hg (12/31/23 3:36 AM) 104/57mm Hg (12/30/23 7:52 PM) Respiratory Rate [16-30 br/min] 16 br/min (12/31/23 12:37 PM) 16 br/min (12/31/23 12:37 PM) 16 br/min (12/31/23 12:37 PM) 16 br/min (12/31/23 12:37 PM) Temperature [96.8-100.4 DegF] 97.5 DegF (12/31/23 7:37 AM) 98.1 DegF (12/31/23 3:36 AM) 98.1 DegF (12/30/23 7:52 PM) Mode of Delivery (Oxygen) Room air (12/31/23 7:37 AM) Room air (12/31/23 3:36 AM) Room air (12/30/23 7:52 PM) Blood pressure sites Arm, left (12/31/23 7:37 AM) Arm, right (12/31/23 3:36 AM) Arm, right (12/30/23 7:52 PM) Temperature Route Oral (12/31/23 7:37 AM) Oral (12/31/23 3:36 AM) Oral (12/30/23 7:52 PM) Weight Obtained Via Bed scale (12/27/23 5:29 AM) Social History Social History Type Response Smoking Status 5-9 cigarettes (betw een 1/4 to 1/2 pack)/day in last 30 days entered on: 05/16/22 Sex Admission evaluation note * Fady Valenzuela MD: PERFORM Event Display: Admission Note Authored Date: [id number] Patient: ??DAVID MCQUEEN ? Age:??38 Years?Sex:??Male?:??1985?? Chief Complaint/Reason for Consultation R wound pain and bleeding, R buttock, + thinners History of Present Illness This is a case of a 38-year-old man with past medical history of depression, GERD, hypertension, iron deficiency, and right-sided residual hemiparesis s/p left ICA stroke, and??severe hidradenitis suppurativa with multiple I&D's s/p excision of left buttock in 2022 with associated chronic pain on opiates, and multiple previous admissions??(last one??in 11/16/2023) for uncontrolled gluteal pain who presented for worsening??gluteal pain, bleeding, and discharge??at the site of his right-sided hidradenitis suppurativa. He states that the pain started to get worse 4 days ago and he feels like the area was getting warm.?? He also notes bloody fluid draining from his lesions which she said has never happened before.??He denies any headache,??dizziness, nausea, vomiting, chest pain, shortness of breath, or abdominalpain.?? He has a baseline right-sided hemiparesis and cannot move his right upper and lower extremity. He was following with a business development at [facility] but has not seen them since his last admission??1 month ago due to insurance issues. Financial counseling appointment scheduled with mother. ?? In the ED, patient was afebrile and vitals were stable. His CBC was normal and showed no leukocytosis. His BMP was also normal. His sedimentation rate was 113 and his CRP was 2.9.?? A CT scan of the pelvis with contrast and a CT scan of the right lower extremity with contrast wereobtained and showed no evidence of osteomyelitis. They showed irregular skin thickening over the right inferior gluteal region extending to the posterior right proximal thigh, which could reflect developing abscess or phlegmonous change.??General surgery consulted for possible I&D. They found no indication for acute surgical intervention and recommended to continue local wound care and daily dressing changes, along with adequate pain control. ?? On my evaluation, patient is in increasing pain due to his lesions. On exam, the hydradenitis suppurativa lesions extend from the right buttock to the posterior thigh. Some lesion drain clear yellowish discharge and others are bloody. There is no active bleed,??pus, or increased redness/swelling tosuggest any superimposed infection. They are painful to the touch and patient seems to be uncomfortable at baseline due to the severe pain. ? Wound care and acute pain service will be consulted. Patient started on oxycodone 20mg q8hrs, baclofen 20mg 4 times a day, duloxetine 30mg BID, and gabapentin 600 mg TID for management of the pain. Review of Systems Gen:??Denies fevers/chills.Uncomfortable at baseline and??in substantial pain due to his lesions. Cardiac:??Denies??palpitations, chest pain, Edema Respiratory: Denies dyspnea, cough?? GI:??Denies??abdominal pain, diarrhea/constipation : Denies??dysuria MSK/Skin:??Negative arthralgia/myalgias??but??endorses sever??pain??of the right thigh??and buttocks Neurological:??Negative tingling, numbness? Objective Vital Signs?? Temperature: 98.7 DegF (12/26/23 04:49:00) Temperature Route: Oral (12/26/23 04:49:00) Pulse Rate: 64 bpm (12/26/23 04:49:00) Respiratory Rate: 18 br/min (12/26/23 10:58:00) Vented: No (12/26/23 04:49:00) Systolic Blood Pressure: 122 mm Hg (12/26/23 04:49:00) Diastolic Blood Pressure: 74 mm Hg (12/26/23 04:49:00) Pulse Pressure: 48 mm Hg (12/26/23 04:49:00) Oxygen Saturation: 100 % (12/26/23 04:49:00) Mode of Delivery (Oxygen): Room air (12/26/23 04:49:00) Early Warning Score: 0 (12/26/23 10:59:07) ? Intake/Output? No Data Available ? Physical Exam General:??Patient uncomfortable and in pain. CV: RRR S1 S2 present. No murmurs, gallops, rubs appreciated. No JVD. No LE??edema. Respiratory: All burton clear to auscultation bilaterally. No wheezes, rales, rhonchi appreciated. Abdominal: Soft, nontender. No rebound tenderness. Bowel sounds noted all four quadrants. : No suprapubic tenderness. Neuro: A&OX3. Moving upper and lower extremities. No gross neurological deficits. Psych: Affect appropriate. Skin: Lesions of hydradenitis suppurativa on right buttock extend to the posterior thigh. Some lesions drain clear yellowish discharge and others bled onto the dressing. No active bleed, pus, redness, or additional swelling. Assessment/Plan Diagnoses Cellulitis ??(L03.90) Chronic GERD ??(K21.9) Chronic pain ??(G89.29) Chronic, continuous use of opioids ??(F11.90) Depression ??(F32.A) Hydradenitis ??(L73.2) Hypertension ??(I10) Intracardiac thrombosis ??(I51.3) Intractable pain ??(R52) Iron deficiency anemia ??(D50.9) Spastic hemiparesis ??(G81.10) Thrombocytosis ??(D75.839) ?? Assessment:??This is a case of a 38-year-old man with past medical history of depression, GERD, hypertension, iron deficiency, and right-sided residual hemiparesis s/p left ICA stroke, and??severe hidradenitis suppurativa with multiple I&D's s/p excision of left buttock in 2022 with associated chronic pain on opiates, and multiple previous admissions??(last one??in 11/16/2023)??for uncontrolledgluteal pain who presented??for worsening??gluteal pain, bleeding, and discharge??at the site of his right-sided hidradenitis suppurativa. ? Intractable pain (R52):?? Hidradenitis suppurativa (L73.2):?? Chronic, continuous use of opioids (F11.90):?? Chronic pain syndrome (G89.4):? Patient is s/p??multiple I&D's s/p excision of left buttock in 2022, and multiple previous admissions??(last one??in 11/16/2023)??for uncontrolled gluteal pain. He is on chronic opioids for pain control. He follows with a business development at [facility] but has not seen them since his last admission due to insurance issues. Some of the lesions are draining clear yellowish discharge, and others had bled onto the dressing. There was no active bleeding, increased redness, swelling, or pus. The patient was afebrile denied any chills. There was no leukocytosis on labs. Therefore, the suspicion for infection is low. A CT scan of the pelvis with contrast and a CT scan of the right lower extremity with contrast wereobtained and showed no evidence of osteomyelitis. They showed irregular skin thickening over the right inferior gluteal region extending to the posterior right proximal thigh, which could reflect developing abscess or phlegmonous change.?? Wound care and acute pain service were consulted. Surgery found no indication for surgical intervention but following closely. ?? Plan: -Continue??Oxycodone 20mg q8 hrs -Continue??baclofen 20mg QID -Continue??duloxetine 30 mg BID -Continue??Gabapentin 600mg TID -Continue??Dilaudid 2mg q4 hrs PRN -Local wound care & BID dry sterile dressing changes, per surgery recommendations -Follow up on acute pain service recommendations -Follow up with business development pending financial counseling for insurance. ?? Intracardiac thrombosis (I51.3):??Continue Apixaban 5mg BID ?? Iron deficiency anemia (D50.9):??Continue ferrous sulfate 325 mg BID ?? Thrombocytosis (D75.839):??Continue hydroxyurea? Depression (F32.A):??Continue duloxetine 30 mg BID ?? Hypertension (I10):??Continue amlodipine 5mg qd ?? Chronic GERD (K21.9):??Continue pantoprazole 40mg qd ?? Spastic hemiparesis (G81.10):??Continue tizanidine as needed ?? Quality Measures Code:??Full Code?? DVT prophylaxis:??Eliquis 5mg PO BID?? Diet:??Regular Diet?? Ongoing medical necessity:??Pain management ? Patient seen and discussed with attending physician,??Dr. MD Fady Valenzuela MD Internal Medicine Resident, PGY-1 ? Histories Allergies Allergies ?(Active and Proposed [...] Electronic Cigarette/Vaping Details:??Electronic Cigarette Use: Never. ? Medications Home Medications Acetaminophen (acetaminophen 500 [...] a day Hydroxyurea (hydroxyurea 500 mg oral capsule)?1?capsule?By Mouth?Daily nalOXONE (Narcan 4 mg/0.1 mL nasal spray)?1?spray(s)?4?Milligram?Nares, [...] TO OPEN WOUND(S)* ? Inpatient Medications Medications (23) Active SCHEDULED: [...] mL, IV Push, Every 8 hours OxyCODONE 20 mg ER Tablet (oxyCODONE 20 mg oral tablet, extended release) ??20 mg, By Mouth, Every 8 hours Pantoprazole 40 mg EC Tablet (pantoprazole 40 mg oral delayed release tablet) ??40 mg, By Mouth, Daily Triamcinolone 0.1% Cream (Triamcinolone 0.1% Topical) ??1 application, Topically, 2 times a day Vitamin D 1000 IU Tablet (Vitamin D3 1000 intl units oral tablet) ??1,000 International_Units, By Mouth, Daily CONTINUOUS: (0) PRN: (9) Acetaminophen 325 mg Tablet (Acetaminophen Tablet) ??650 mg, By Mouth, Every 4 hours Docusate Sodium 100 mg Capsule (Docusate Sodium Capsule) ??100 mg 1 capsule, By Mouth, 2 times a day HYDROmorphone 2 mg Tablet (Dilaudid 2 mg oral tablet) ??2 mg, By Mouth, Every 4 hours Melatonin 3 mg Tablet [...] Recent Labs BLOOD COUNT & DIFF WBC 7.1 k/mm3 ()?? 12/26/2023 00:08 RBC 3.72 m/mm3 (Low)?? 12/26/2023 00:08 Hgb 9.8 Gm/dL (Low)?? 12/26/2023 00:08 Hct 33.1 % (Low)?? 12/26/2023 00:08 MCV 89.0 femtoliters ()?? 12/26/2023 00:08 MCH 26.3 pg (Low)?? 12/26/2023 00:08 MCHC 29.6 g/dL (Low)?? 12/26/2023 00:08 Platelet Count 563 k/mm3 (High)?? 12/26/2023 00:08 RDW-SD 63.8 femtoliters (High)?? 12/26/2023 00:08 MPV 8.4 femtoliters (Low)?? 12/26/2023 00:08 Nucleated RBC (Automated) 0.0 #/100 WBC'S ()?? 12/26/2023 00:08 Abs. NRBC 0.0 k/mm3 ()?? 12/26/2023 00:08 Abs. Neut 3.9 k/mm3 ()?? 12/26/2023 00:08 Abs. Lymph 2.2 k/mm3 ()?? 12/26/2023 00:08 Abs. Barron 0.8 k/mm3 ()?? 12/26/2023 00:08 Abs. Eo 0.1 k/mm3 ()?? 12/26/2023 00:08 Abs. Baso 0.1 k/mm3 ()?? 12/26/2023 00:08 Neut % 54.9 % ()?? 12/26/2023 00:08 Lymph % 30.8 % ()?? 12/26/2023 00:08 Barron % 11.3 % (High)?? 12/26/2023 00:08 Eos % 2.0 % ()?? 12/26/2023 00:08 Baso % 0.7 % ()?? 12/26/2023 00:08 Imm Gran 0.3 % ()?? 12/26/2023 00:08 Abs. Imm Gran 0.0 k/mm3 ()?? 12/26/2023 00:08 ?? CHEM GENERAL Sodium 137 mmol/L ()?? 12/26/2023 00:08 Potassium 4.5 mmol/L ()?? 12/26/2023 00:08 Chloride 101 mmol/L ()?? 12/26/2023 00:08 Bicarbonate Level 25 mmol/L ()?? 12/26/2023 00:08 Anion Gap 11 ()?? 12/26/2023 00:08 Glucose Level 106 mg/dL (High)?? 12/26/2023 00:08 BUN 19 mg/dL ()?? 12/26/2023 00:08 Creatinine-Blood 0.85 mg/dL ()?? 12/26/2023 00:08 Estimated GFR Creatinine 115 ML/MIN/1.73 M2 ()?? 12/26/2023 00:08 Calcium 8.8 mg/dL ()?? 12/26/2023 00:08 Magnesium 2.2 mg/dL ()?? 12/26/2023 00:08 Protein, Total 7.5 Gm/dL ()?? 12/26/2023 00:08 Albumin 3.7 Gm/dL ()?? 12/26/2023 00:08 AG Ratio 1.0 ()?? 12/26/2023 00:08 Alkaline Phosphatase 150 units/L (High)?? 12/26/2023 00:08 AST (SGOT) 16 units/L ()?? 12/26/2023 00:08 ALT (SGPT) 9 units/L ()?? 12/26/2023 00:08 Bilirubin, Total <0.2 mg/dL ()?? 12/26/2023 00:08 C-Reactive Protein 2.9 mg/dL (High)?? 12/26/2023 00:08 ?? HEME OTHER Sed Rate 113 mm/hr (High)?? 12/26/2023 00:08 ? * Mando Willams MD: PERFORM Event Display: Admission Note Authored Date: Attending Attestation:??I saw and examined the patient with the resident team and reviewed the chart on the day of service. ??I have discussed the case and its management??with the resident as documented in the resident note on the day of service.??I agree with the resident's note and plan as documented. EKG study * Event Display: ECG 12-Lead Authored Date: Please click on pdf link to open report * Event Display: ECG 12-Lead Authored Date: Ventricular Rate: 60 BPM Atrial Rate: 60 BPM P-R Interval: 164 ms QRS Duration: 98 ms Q-T Interval: 420 ms QTC Calculation(Bazett): 420 ms P [place]: 21 degrees R [place]: -29 degrees T [place]: -20 degrees Normal sinus rhythm Minimal voltage criteria for LVH, may be normal variant ( R in aVL ) Borderline ECG When compared with ECG of 31-OCT-2023 19:56, T wave inversion now evident in Anterior leads Confirmed by RACQUEL MARRERO ([id number]) on 12/27/2023 1:09:14 PM [place]: RACQUEL MARRERO [facility] Progress note * Albertina Kerr RN: PERFORM, SIGN, VERIFY, MODIFY, SIGN, MODIFY, SIGN Event Display: Progress Note Hospital Authored Date: Patient: DAVID MCQUEEN Age: 38 years Sex: Male : 1985 Associated Diagnoses: None Author: Albertina Kerr RN Findings Problem Related to Alteration in Integumentary : Alteration in Integumentary/new 12/31/2023 12:00 EDT Alteration in Integumentary Related to Cellulitis, Moisture, Immobility BH Goals/Interventions, Integumentary Yes Goals & Outcomes, Integumentary Nutritional intake is adequate for metabolic needs, Pt will maintain adequate fluid & nutritional balance, Wound will progress towards healing Integumentary, Problem Start 12/27/2023 10:00 Interventions, Integumentary Cleanse all wounds with Normal Saline Patient Progression, Integumentary Pt progressing according to plan Reviewed plan with, Integumentary Patient 12/30/2023 20:20 EDT Alteration in Integumentary Related to Cellulitis, Moisture, Immobility BH Goals/Interventions, Integumentary Yes Goals & Outcomes, Integumentary Nutritional intake is adequate for metabolic needs, Pt will maintain adequate fluid & nutritional balance, Wound will progress towards healing Integumentary, Problem Start 12/27/2023 10:00 Interventions, Integumentary Collaborate w/ provider for PT/OT consults, Consult Wound Care as needed for further interventions, Encourage & assist pt to change position frequently, Encourage & assist with range of motion exercises, Ensure relief modes are on mattress surface & utilized, Interdisciplinary consults as appropriate, Keep bed as flat as tolerated to reduce shearing, Keep linen clean, dry and wrinkle free, Keep skin clean & dry, Minimize friction, shear and moisture,Monitor reddened areas for continued or increasing reddness, Record extent of impaired skin integrity, Relieve pressure off bony areas, Reposition pt off reddened areas Patient Progression, Integumentary Pt progressing according to plan Reviewed plan with, Integumentary Patient . Evaluation Pt alert.Expressive aphasia from history of stroke. Right sided baseline deficits. Able to make needs known. Not on tele. Lung sounds diminished on RA. Reporting severe pain to coccyx. PRN dilaudid and ATC oxycodone adminsitered per orders w/ + efffect. Independent turn in bed. PT calling nurse at 1030 reporting that when trying to ambulate pt bleeding from wound to pad and dripping to floor. Session terminatd. RN to room to change dressing. Dressing removed and guaze pads saturated w/ blood. Cleansed w/ Vasheper orders. Small openings packed w/ aquacel AG to best ability. DSD applied. In right inner thigh pt touched and grimacing. Pt pulled hand away covered in blood. Pt reporting this is new .Immediately saturating 4x4 gauze. Right groin noted to be large in size than right. MD made aware, and paged to [facility] to asses. Pt soaking through 3 more 4x4 gauzes in 10 minutes. Per this is not acute, okay to be discharged as patient goes through periods of more drainage. associate curator made aware. Plan to discharge home via ambulance at 1300.. * Laurie Castillo RN: VERIFY, PERFORM, SIGN Event Display: Progress Note Hospital Authored Date: Patient: DAVID MCQUEEN Age: 38 years Sex: Male : 1985 Associated Diagnoses: None Author: Laurie Castillo RN pt A+Ox3, 1 assist OOB, expressive aphasia, right arm weakness, wound care completed to right buttock per new wound care orders, urinal at bedside, bed alarm on and bed in lowest locked position and call mariee within reach... Findings Problem Related to Alteration in Integumentary : Alteration in Integumentary/new 12/30/2023 20:20 EDT Alteration in Integumentary Related to Cellulitis, Moisture, Immobility Goals & Outcomes, Integumentary Nutritional intake is adequate for metabolic needs, Pt will maintain adequate fluid & nutritional balance, Wound will progress towards healing Interventions, Integumentary Collaborate w/ provider for PT/OT consults, Consult Wound Care as needed for further interventions, Encourage & assist pt to change position frequently, Encourage & assist with range of motion exercises, Ensure relief modes are on mattress surface & utilized, Interdisciplinary consults as appropriate, Keep bed as flat as tolerated to reduce shearing, Keep linen clean, dry and wrinkle free, Keep skin clean & dry, Minimize friction, shear and moisture,Monitor reddened areas for continued or increasing reddness, Record extent of impaired skin integrity, Relieve pressure off bony areas, Reposition pt off reddened areas BH Goals/Interventions, Integumentary Yes Integumentary, Problem Start 12/27/2023 10:00 Reviewed plan with, Integumentary Patient Patient Progression, Integumentary Pt progressing according to plan . Discharge Information Case Management Discharge Plan : Case Management Discharge Plan Data 12/27/2023 13:28 EDT Discharge Level of Care at Discharge Homehealth/VNA Discharge VNA/Hospice/Home Care [facility] [phone] Agency [employer] [facility] Intake Service Categories #1 Physical Therapy, [facility] Service Comments #1 A nurse will call you to arrange a visit with you at your home. If you do not hear from agency, please call them. Rehabilitation Discharge : Rehab Discharge Index 12/29/2023 6:23 EDT Comments on treatment indicated 38 M admitted with Pain mgmt for hidradenitis, cellulitis. PMH: CVA with right hemiparesis and aphasia. Skilled PT for bed to chair transfers, strength, balance, safety. Rec home c services Distance pt will ambulate > 2 steps c LRAD Full chart review completed Yes Other findings see comment Plan of care PT Gait training, Transfer training, Therapeutic exercise, Functional Activities, Balance training, Neuromuscular education * Dany PAGAN, Willy: PERFORM Event Display: Progress Note Hospital Authored Date: Patient: ??DAVID MCQUEEN ? Age:??38 Years?Sex:??Male?:??1985?? Subjective No acute overnight events. Patient remains hemodynamically stable. Does not have any active complaints for me. Pain is well-controlled. Evaluated wound RN. Review of Systems ?? Negative except as above Objective Vital Signs?? Temperature: 97.3 DegF (12/30/23 07:36:00) Temperature Route: Oral (12/30/23 07:36:00) Pulse Rate: 55 bpm (12/30/23 07:36:00) Respiratory Rate: 18 br/min (12/30/23 14:44:00) Systolic Blood Pressure: 108 mm Hg (12/30/23 07:36:00) Diastolic Blood Pressure: 68 mm Hg (12/30/23 07:36:00) Blood pressure sites: Arm, left (12/30/23 07:36:00) Mean Arterial Pressure: 81 mm Hg (12/30/23 07:36:00) Pulse Pressure: 40 mm Hg (12/30/23 07:36:00) Oxygen Saturation: 98 % (12/30/23 07:36:00) Mode of Delivery (Oxygen): Room air (12/30/23 07:36:00) Early Warning Score: 2 (12/30/23 14:46:57) ? Physical Exam ?Constitutional: Alert, in no distress. Oriented??x 3.?Respiratory: Clear lungs, no wheezing. No accessory muscle use ?Cardiovascular: S1 S2 regular. No murmurs ?Gastrointestinal: Abdomen soft, no abdominal tenderness, non-distended. Normal bowel sounds.?Neurologic: Moving all extremities spontaneously. ?Psychiatric: Normal mood and affect ?Extremities: No lower extremity??edema. Multiple open wounds with drainage in right buttock andupper posterior thigh?? _ _ Home Medications Acetaminophen (acetaminophen 500 mg oral [...] a day Hydroxyurea (hydroxyurea 500 mg oral capsule)?1?capsule?By Mouth?Daily nalOXONE (Narcan 4 mg/0.1 mL nasal spray)?1?spray(s)?4?Milligram?Nares, [...] TO OPEN WOUND(S)* ? Inpatient Medications Medications (22) Active SCHEDULED: (14) Acetaminophen 325 mg Tablet (Acetaminophen Tablet) ??975 mg, By Mouth, Every 8 hours Apixaban 5 mg Tablet (Eliquis) ??5 [...] oral tablet) ??30 mg, By Mouth, Every 6 hours Pantoprazole 40 mg EC Tablet (pantoprazole 40 mg oral delayed release tablet) ??40 mg, By Mouth, Daily Vashe Wound Care Emollient/Cleanser (Vashe Topical Solution) ??475 mL, Topically, Every other day Vitamin D 1000 IU Tablet (Vitamin D3 1000 intl units oral tablet) ??1,000 International_Units, By Mouth, Daily CONTINUOUS: (0) PRN: (8) Docusate Sodium 100 mg Capsule (Docusate Sodium Capsule) ??100 mg 1 capsule, By Mouth, 2 times a day HYDROmorphone 2 mg Tablet (Dilaudid 2 mg oral tablet) ??2 mg, By Mouth, Every 8 hours Melatonin 3 mg Tablet (Melatonin Tablet) [...] Every 8 hours ? Results Recent Labs No labs resulted between 12/29/2023 00:00 and 12/30/2023 16:14? Assessment/Plan Chief Complaint: R wound pain and bleeding, R buttock, + thinners ?? Diagnoses Cellulitis ??(L03.90) Chronic GERD ??(K21.9) Chronic pain ??(G89.29) Chronic, continuous use of opioids ??(F11.90) Depression ??(F32.A) Hydradenitis ??(L73.2) Hydradenitis ??(L73.2) Hypertension ??(I10) Intracardiac thrombosis ??(I51.3) Intractable pain ??(R52) Iron deficiency anemia ??(D50.9) Spastic hemiparesis ??(G81.10) Thrombocytosis ??(D75.839) ?? This is a case of a 38-year-old man with past medical history of depression, GERD, hypertension, iron deficiency, and right-sided residual hemiparesis s/p left ICA stroke, and??severe hidradenitis suppurativa with multiple I&D's s/p excision of left buttock in 2022 with associated chronic pain on opiates, and multiple previous admissions??(last one??in 11/16/2023)??for uncontrolled gluteal painwho presented??for worsening??gluteal pain, bleeding, and discharge??at the site of his right-sidedhidradenitis suppurativa. ? Intractable pain (R52):?? Hidradenitis suppurativa (L73.2):?? Chronic, continuous use of opioids (F11.90):?? Chronic pain syndrome (G89.4):? Patient is s/p??multiple I&D's s/p excision of left buttock in 2022, and multiple previous admissions??(last one??in 11/16/2023)??for uncontrolled gluteal pain. He is on chronic opioids for pain control. He follows with a business development at [facility] but has not seen them since his last admission due to insurance issues. Some of the lesions are draining clear yellowish discharge, and others had bled onto the dressing. There was no active bleeding, increased redness, swelling, or pus. The patient was afebrile denied any chills. There was no leukocytosis on labs. Therefore, the suspicion for infection is low. A CT scan of the pelvis with contrast and a CT scan of the right lower extremity with contrast wereobtained and showed no evidence of osteomyelitis. They showed irregular skin thickening over the right inferior gluteal region extending to the posterior right proximal thigh, which could reflect developing abscess or phlegmonous change.?? Wound care and acute pain service were consulted. Surgery found no indication for surgical intervention but following closely. ?? Plan: -Continue??Oxycodone IR 30mg q6 hrs??which is home med -Continue??baclofen 20mg QID -Continue??duloxetine 30 mg BID -Continue??Gabapentin 600mg TID -Continue??Dilaudid 2mg q8 hrs PRN - will start spacing it out ?? -low suspicion for active infection, hold antibiotics however persistent.? -No??I&D needed as per surgical evaluation -Follow up with business development pending financial counseling for insurance. -If clinical worsening, will reimage??to??evaluate for abscess/collection. ?? -Plastic??surgery at [facility] reached out, pending evaluation. -Evaluated wound RN. ?? Recommendations: ?? 1.)??Right buttock: Gently cleanse/irrigate wound beds followed by the periwound with VASHE solution moistened gauze. Allow to dry. Cut Aquacel ag in a spiral shape creating one long piece. Pack 'multiple separate tracts/tunnels' loosely with Aquacel ag, leaving a wick to allow for easy removal. Cover other draining 'tracts/tunnels' that can not be packed with Aquacel ag. Cover and secure with ABD pad/Hypafix. Change every other day and as needed for soiling/saturation.? *Do not use multiple pieces of Aquacel ag - concern for leaving pieces inside wound d/t depth and unable to visualize wound bed* *If aquacel ag is difficult to remove with dressing changes , please re-consult Inpatient Wound Care Team. Trauma can occur when removing a dry adhered dressing from a dry wound.? 2.) Continue use of specialty bed/low air loss mattress 3.) Turn and reposition every 2 hours and PRN 4.) Continue incontinence care as well as moisture management; do not utilize Mepilex foam dressingwith incontinence?? 5.) Do not utilize brief use?? 6.) Continue to offload bony prominences 7.) Continue to provide optimal nutritional support; nutrition consulted?? 8.) Provide Gaymar cushion to chair when patient OOB ? Intracardiac thrombosis (I51.3):??Continue Apixaban 5mg BID ?? Iron deficiency anemia (D50.9):??Continue ferrous sulfate 325 mg BID ?? Thrombocytosis (D75.839):??Continue hydroxyurea? Depression (F32.A):??Continue duloxetine 30 mg BID ?? Hypertension (I10):??Normotensive, dc 'ed amlodipine ?? Chronic GERD (K21.9):??Continue pantoprazole 40mg qd ?? Spastic hemiparesis (G81.10):??Continue tizanidine as needed ?? Quality Measures Code:??Full Code?? DVT prophylaxis:??Eliquis 5mg PO BID?? Diet:??Regular Diet?? Ongoing medical necessity:??Pain management, Wound care, PT eval : Home?? Evaluation by plastic surgery ? Consult note * Barrett BUSTAMANTE, Rosa Ellis: PERFORM, SIGN, VERIFY Event Display: Consultation Note Authored Date: Patient: DAVID MCQUEEN Age: 38 years Sex: Male : 1985 Associated Diagnoses: None Author: Rosa Hyde RN History of Presenting Problem drainage dressing 12/30 Date of Service 12/31/2023 Wound RN was contacted by direct care RN Albertina Marte due to plan for discharge today and her concern for increased drainage to wound. This wound RN consulted on patient ~24hrs ago, see my note for details. PT had gotten patient up and sanguineous drainage dripped on floor. Above photo depicts dressingwith large amount of sanguineous drainage from dressing placed yesterday afternoon. RN stated she watched him 'pop' and express area to his R medial thigh, this exudate saturated with sanguineous drainage four 4x4 dressings with concern for hematoma. She stated at time patient concerned for drainage then when MD came to bedside to assess (aware of 'popping' & drainage) that patient was not concerned and wanted to go home. I educated nurse about Hidradenitis suppurativa (HS), discussing previous admissions and interventions (I also sent her information from [facility] about HS). At this point there are no changes from my end, current orders for frequency are PRN for soilage/saturation- we discussed this may need to be changed daily etc, current products remain appropriate, could consider Mextra pads- more absorbent that ABD pads- although patient particular (I will send some to floor to have patient trial). Other than this, the concerns for increased drainage are more appropriate forprovider and can consider having surgery re-assess. ~ Utilize Mextra absorbent pads (7x9 ref#[id number] or 9x13 ref#[id number]) to absorb drainage, change PRN for soilage/saturation. Plan Patient Teaching Discussed plan of care with RN Time spent 16-30 minutes * Barrett BUSTAMANTE, Rosa Ellis: SIGN, PERFORM, MODIFY, MODIFY, VERIFY, MODIFY, SIGN, MODIFY, SIGN Event Display: Consultation Note Authored Date: [id number] Patient: DAVID MCQUEEN Age: 38 years Sex: Male : 1985 Associated Diagnoses: None Author: Rosa Hyde RN History of Presenting Problem R buttock Date of Service 12/30/2023 Reason for referral Wound: Description Location: Right buttock Etiology: Hidradenitis suppurativa Wound Bed: Scattered areas of scar tissue depict open sinus tracts 'tunnels', openings of various sizes and depths (~0.9cm and less)- some not able to be probed due to narrow/linear openings Edges: Defined No Fluctuance Jesi Wound: Hyperpigmentation consistent with chronicity, induration vs. scar tissue when palpated,no warmth Left buttock, surgical wound related to hidradenitis- intact scar tissue- no pain Drainage: Easily expressed with manipulation/pressure to periwound, varies although ~minimal- moderate (more moderate amount found in comparison to my assessment from October) almonte/opaque with serosanguineous Odor: Malodorous, not foul Per patient, constant 10/10 pain, only relief with pain medication 6-7/10 Goals: Vashe to decrease bioburden and assist with 'stalled' properties within wound base; Aquacel ag- exudate management- fill space- provide antimicrobial properties *Right medial thigh/groin patient c/o of pain and wanted me to cover but no openings *Dressing in place prior from yesterday, unknown exact time . Wound RN consult entered to assess Right buttock and right posterior thigh wounds and make topical recommendations. Patient well known to Wound RN team, I last saw patient 10/22/23, see my previous note for details. Patient was admitted on 12/26/23 for persistent pain R buttock and drainage, patient explains to me due to warmth as well. Significant PMH includes ischemic stroke- R sided hemiparesis & expressive aphasia, intracardiac thrombus on AC, HTN, severe hidradenitis suppurativa- multiple I&D's (last August 2023) & chronic pain on opiates; see H&P for further details. Patient consulted this admission twice by surgical team on and yesterday , described chronic inflammation- no cellulitis- CT of R buttock depicted area consistent with early abscess formation, they stated there are appointments pending depending on insurance approval for plastics at [facility] for excision and local tissue reconstruction, no surgical intervention warranted at this time. Previsit direct care RN stated he is A&OX3 and continent of urine and stool. Upon entering the room patient is lying in bed. Wound RN role explained and patient is agreeable to assessment as well as photodocumentation. Patient remembers me, very kind throughout consult. Able to make needs know, with aphasia sometimes have to fill in words for him. He described managing this for 4 years now. He is particular with dressings utilized and application process, my recommendations below utilize what patient likes to use, at time cleansed with NACL and covered with ABD pads/Hypafix. We reviewed recommendations and he is familiar (same as my last orders). He stated his mom cares for his wounds but it is too much for her, VNA only lasted for a month, I encouraged I will discuss with CM. Patient able to reposition independently for my assessment. Update provided to direct care RN post visit, she inquiredabout Triamcinolone steroid cream and I followed up with provider (MD thinks this is home regime- aware I will leave this decision to continue up to MD- she stated she will remove). Recommendations/update sent via [employer] connect to MD Warren Saenz MD aware of significant assessment details (induration v s. scar tissue, malodorous drainage and able to easily express almonte/opaque serosag drainage, and constant 10/10 pain without pain meds)... that it is consistent with disease process, I'm not actively concerned for infection... but d/t surgery saw early signs of an abscess and I would recommend having him f/u with this closely. Discussed with top case assembler post visit patients concerns, she stated she will discuss options with him. Recommendations: 1.) Right buttock: Gently cleanse/irrigate wound beds followed by the periwound with VASHE solutionmoistened gauze. Allow to dry. Cut Aquacel ag in a spiral shape creating one long piece. Pack 'multiple separate tracts/tunnels' loosely with Aquacel ag, leaving a wick to allow for easy removal. Cover other draining 'tracts/tunnels' that can not be packed with Aquacel ag. Cover and secure with ABDpad/Hypafix. Change every other day and as needed [...] every 2 hours and PRN 4.) Continue incontinence care as well as moisture management; do not utilize Mepilex foam dressingwith incontinence 5.) Do not utilize brief use 6.) Continue to offload bony prominences 7.) Continue to provide optimal nutritional support; nutrition consulted 8.) Provide Gaymar cushion to chair when patient OOB Please reconsult wound care RNs for deterioration in wound/skin status Plan Patient Teaching Discussed plan of care with patient Discussed plan of care with RN * Blas PAGAN, Rosa Caceers: PERFORM Event Display: Consultation Note Authored Date: [id number] Patient: ??DAVID MCQUEEN ? Age:??38 Years?Sex:??Male?:??1985?? Chief Complaint/Reason for Consult Hidradenitis suppurative History of Present Illness David is a 38M with a PMH of ischemic stroke with right-sided residual hemiparesis, expressive aphasia, intracardiac thrombus anticoagulated on Eliquis, hypertension, severe hidradenitis suppurativawith multiple I&D's s/p excision of left buttock in??08/2023 with associated chronic pain on opiates, who presented to the emergency department for persistent pain of his right gluteal region withdrainage.??On presentation to the ED, patient was hemodynamically stable and afebrile.?? Labs??demonstrated a normal wbc at 7.1 with no left shift, elevated sed rate 113 and CRP 2.9.?? At time my evaluation, patient remained hemodynamically stable and was??resting comfortably in bed.??He states thepain started to get worse 4 days ago and he felt like the area was getting warmer. IT also started to drain bloody fluid which it had never done in the past.??On exam there is no erythema or fluctuance to the right glute. There are multiple areas of drainage with one draining sanigopurulent fluid.??Denies headache, dizziness, nausea/vomiting, chest pain, SOB, or abdominal pain. Has at baseline right-sided hemiparesis, patient states that he cannot move his right upper/lower extremity at all. Review of Systems Negative unless stated above Physical Exam Vitals & Measurements T:??98.7?F?? HR:??64??(Peripheral)?? RR:??16?? RR:??16?? BP:??122/74?? SpO2:??100%?? PHYSICAL EXAMINATION: GENERAL: No acute distress. Non-toxic. Aphasic, struggles to answer my questions. HEAD: Normocephalic. Atraumatic.?? EYES: Extra-ocular movements intact. ENT: Patent nares and oropharynx.?? CARDIAC: Regular rate and rhythm. RESPIRATORY: Equal and symmetric breaths. GASTROINTESTINAL: Soft. Non-distended. Non-tender. No guarding. No rebound tenderness.?? MUSCULOSKELETAL: Baseline right sided hemiparesis.??Right gluteal region with extensive hidradenitis suppurative with multiple areas draining purulent fluid. No erythema, no fluctuance, but??is indurated throughout the glute. Mildly tender to palpitation. Does not appear warm to touch on my evaluation. Assessment/Plan David is a 38M with a PMH of ischemic stroke with right-sided residual hemiparesis, expressive aphasia, intracardiac thrombus anticoagulated on Eliquis, hypertension, severe hidradenitis suppurativawith multiple I&D's s/p excision of left buttock in??08/2022 who surgery was consulted on for hid radenitis suppurative on the right glute. He does appear to have chronic inflammation but no current evidence of cellulitis on today's evaluation. CT scan demonstrated no??evidence of a clear abscess, but did show a 1.6cm round hypodensity in the right buttock which may represent an early abscess formation. There is currently no indication for any acute surgical intervention, but surgery will continue to closely follow. ?? Diagnosis 1. ??Hidradenitis suppurativa ?? Recommendations ?No indication for acute surgical intervention - Continue with local wound care & BID dry sterile dressing changes ??? Will discuss need for abx in the morning ?Pain control per primary ? EGS [id number] Nguyen Problem List/Past Medical History Ongoing Chronic ischemic left ICA stroke Chronic pain Controlled substance agreement signed 10/16/22 Depression GERD (gastroesophageal reflux disease) Hidradenitis suppurativa History of ischemic stroke Hypertension PATY (iron deficiency anemia) Insomnia Iron deficiency anemia Mural thrombus of cardiac apex Peripheral neuropathy Right spastic hemiparesis Spasticity Therapeutic drug monitoring Thrombocytosis Tobacco dependence Wound of buttock Procedure/Surgical History Operative procedure on hip: 2000 Multiple I&D Home Medications Acetaminophen: 1,000 mg = 2 tablet, By Mouth, 3 times a day, PRN (for pain) Amlodipine: 5 mg = 1 tablet, By Mouth, Daily apixaban: 5 mg = 1 tablet, By Mouth, 2 times a day Ascorbic Acid: 500 mg = 1 tablet, By Mouth, Daily Baclofen: 20 mg = 1 tablet, By Mouth, 4 times a day canakinumab: 150 mg, Subcutaneous Injection, Every 28 days Cholecalciferol: 25 mcg = 1 tablet, By Mouth, Daily Clindamycin Topical: APPLY TO AFFECTED AREA TOPICALLY TWICE A DAY Docusate: 1 capsule, By Mouth, 2 times a day Duloxetine: 30 mg = 1 capsule, By Mouth, 2 times a day, TAKE 1 CAPSULE BY MOUTH EVERY DAY Durable Medical Equipment (Vashe wound solution): See Instructions, Use 45mL daily Ferrous Sulfate: 1 tablet, By Mouth, 2 times a day Folic Acid: 1 mg = 1 tablet, By Mouth, Daily Gabapentin: 600 mg = 1 tablet, By Mouth, 3 times a day Hydroxyurea: 1 capsule, By Mouth, Daily nalOXONE: 4 mg = 1 sprays, Nares, Both, Once, To be used use one spray in one nostril. if an additional dose is needed, alternate nostril. may repeat every 2 to 3 minutes until patient responds Pantoprazole: 1 tablet, By Mouth, Daily Tizanidine: [...] ? Event Name?? Event Result?? Date/Time?? WBC 7.1 k/mm3 12/26/23 00:08:00 RBC 3.72 m/mm3??Low 12/26/23 00:08:00 Hgb 9.8 Gm/dL??Low 12/26/23 00:08:00 Hct 33.1 %??Low 12/26/23 00:08:00 MCV 89 femtoliters 12/26/23 00:08:00 MCH 26.3 pg??Low 12/26/23 00:08:00 MCHC 29.6 g/dL??Low 12/26/23 00:08:00 Platelet Count 563 k/mm3??High 12/26/23 00:08:00 MPV 8.4 femtoliters??Low 12/26/23 00:08:00 Nucleated RBC (Automated) 0 #/100 WBC'S 12/26/23 00:08:00 ? CHEM GENERAL ? Event Name?? Event Result?? Date/Time?? Sodium 137 mmol/L 12/26/23 00:08:00 Chloride 101 mmol/L 12/26/23 00:08:00 Bicarbonate Level 25 mmol/L 12/26/23 00:08:00 Anion Gap 11 12/26/23 00:08:00 Glucose Level 106 mg/dL??High 12/26/23 00:08:00 BUN 19 mg/dL 12/26/23 00:08:00 Creatinine-Blood 0.85 mg/dL 12/26/23 00:08:00 Magnesium 2.2 mg/dL 12/26/23 00:08:00 Alkaline Phosphatase 150 units/L??High 12/26/23 00:08:00 AST (SGOT) 16 units/L 12/26/23 00:08:00 ALT (SGPT) 9 units/L 12/26/23 00:08:00 Bilirubin, Total <0.2 12/26/23 00:08:00 ? * Eduardo PAGAN, Carli: PERFORM Event Display: Consultation Note Authored Date: [id number] The patient was seen and evaluated again at the bedside. At this point, there are no surgical interventions that are warranted. Recommend medicine admission for pain control and wound care. Emergencygeneral surgery to sign off at this time. Please page [phone] if there are further concerns. Note * Lashawn Nagy RN: PERFORM Event Display: Discharge/Transfer Note Hospital Authored Date: Nursing Discharge Note Entered On: 12/31/2023 13:09 EDT Performed On: 12/31/2023 13:09 EDT by Lashawn Nagy RN Nursing Discharge Note 2 Discharge Time : 12/31/2023 13:40 EDT Lashawn Nagy RN - 12/31/2023 14:13 EDT Discharge Level of Care at Discharge : Homehealth/VNA Discharge VNA/Hospice/Home Care(v001) : [facility] [phone] Patient Left Unit Via : Ambulance Patient Accompanied Off Unit with : Ambulance/Chair Van Personnel Handover Given to Transport Personnel : Yes DC Instructions Provided & Signed by Pt : No Patient Understands D/C Instructions : Yes Patient Instructions Discharge Signed : No Lashawn Nagy RN - 12/31/2023 13:09 EDT Did Pt have Specialty Bed or Wound Vac : Yes Jen Garibay RN - 12/31/2023 14:08 EDT * Willy Saenz MD: MODIFY, PERFORM, MODIFY Event Display: Discharge/Transfer Note Hospital Authored Date: [id number] Patient: ??DAVID MCQUEEN ? Age:??38 Years?Sex:??Male?:??1985?? Patient Information Discharge Location: Primary Care Physician: Derek Tomas MD Admit Date/Time: 12/26/23 06:15 Discharge Disposition Discharge Disposition: Home with Home Health Discharge Diagnosis Cellulitis (L03.90) Chronic GERD (K21.9) Hypertension (I10) Depression (F32.A) Thrombocytosis (D75.839) Iron deficiency anemia (D50.9) Intracardiac thrombosis (I51.3) Spastic hemiparesis (G81.10) Intractable pain (R52) Chronic, continuous use of opioids (F11.90) Chronic pain (G89.29) Hydradenitis (L73.2) _ Discharge Medications Acetaminophen (acetaminophen 500 mg oral tablet)?2?tab(s)?1,000?Milligram?By Mouth?3 times a day?as needed?for pain apixaban (Eliquis 5 mg oral tablet)?1?tab(s)?5?Milligram?By Mouth?2 [...] mg oral tablet)?1?tab(s)?600?Milligram?By Mouth?3 times a day Hydromorphone (Dilaudid 2 mg oral tablet)?2?Milligram?By Mouth?Every 8 hours?as needed?Pain , Severe?for 5?Days Hydroxyurea (hydroxyurea 500 mg oral capsule)?1?capsule?By Mouth?Daily nalOXONE (Narcan 4 mg/0.1 mL nasal spray)?1?spray(s)?4?Milligram?Nares, Both?Once?To be used use one spray in one nostril. if an additional dose is needed, alternate nostril. mayrepeat every 2 to 3 minutes until patient responds Oxycodone (oxyCODONE 30 mg oral tablet)?1?tab(s)?30?Milligram?By Mouth?Every 6 hours?for 7?Days Pantoprazole (pantoprazole 40 mg oral delayed release tablet)?1?tab(s)?By Mouth?Daily Tizanidine (tiZANidine 2 mg oral tablet)?4?Milligram?2?tablet?By Mouth?Every 8 hours?as needed?as needed for muscle spasm Triamcinolone Topical (triamcinolone 0.1% topical cream)?1?boyd?Topically?2 times a day?*DO NOT APPLY TO OPEN WOUND(S)* ? Quality Measures Tobacco Use Treatment:? Medications Started Dilaudid Medications Discontinued Amlodipine Doses Changed None Hospital Course This is a case of a 38-year-old man with past medical history of depression, GERD, hypertension, iron deficiency, and right-sided residual hemiparesis s/p left ICA stroke, and severe hidradenitis suppurativa with multiple I&D's s/p excision of left buttock in 2022 with associated chronic pain on opiates, and multiple previous admissions (last one in 11/16/2023) for uncontrolled gluteal pain whopresented for worsening gluteal pain, bleeding, and discharge at the site of his right-sided hidradenitis suppurativa. ? Intractable pain (R52): Hidradenitis suppurativa (L73.2): Chronic, continuous use of opioids (F11.90): Chronic pain syndrome (G89.4):?? Patient is s/p multiple I&D's s/p excision of left buttock in 2022, and multiple previous admissions (last one in 11/16/2023) for uncontrolled gluteal pain. He is on chronic opioids for pain control. He follows with a business development at [facility] but has not seen them since his last admission due to insurance issues. Some of the lesions are draining clear yellowish discharge, and others had bled onto the dressing. There was no active bleeding, increased redness, swelling, or pus. The patient was afebrile denied any chills. There was no leukocytosis on labs. Therefore, the suspicion for infection is low. A CT scan of the pelvis with contrast and a CT scan of the right lower extremity with contrast wereobtained and showed no evidence of osteomyelitis. They showed irregular skin thickening over the right inferior gluteal region extending to the posterior right proximal thigh, which could reflect developing abscess or phlegmonous change. Wound care and acute pain service were consulted. Surgery found no indication for surgical intervention and recommended follow-up with plastic surgery.?Mary Mendez from plastic surgery was reached out who reviewed the case and recommended that it is preferable that patient continues to follow [facility] plastic surgery where he was previously operated upon in 2022.?? Discussed with patient, he is in the process of changing insurance to continue follow-up with the same surgeon??at [facility]. Given there was no acute surgical intervention needed and??was close to baseline, decision made to discharge him. patient's mother called and updated.?? Prior to discharge, patient noted to have bleeding from the wound upon ambulation with the physical therapist.?? I examined the patient at bedside.?? At that point he was??laying in bed with minimal oozing except for when pressed, serosanguineous discharge is expressed.?? As per patient, this ishow it happens at home.?? Patient was followed by wound RN bedside.?? Given lack of infection and chronic nature of serosanguineous oozing, no further intervention was done at that point.?? He remained hemodynamically stable.??Given intracardiac thrombus,??Not feasible to stop??anticoagulation. Patient can be discharged home with plan to follow-up with plastic surgery.?Woucnd care instructions as per RN: ?? Recommendations: ?? 1.)??Right buttock: Gently cleanse/irrigate wound beds followed by the periwound with VASHE solution moistened gauze. Allow to dry. Cut Aquacel ag in a spiral shape creating one long piece. Pack 'multiple separate tracts/tunnels' loosely with Aquacel ag, leaving a wick to allow for easy removal. Cover other draining 'tracts/tunnels' that can not be packed with Aquacel ag. Cover and secure with ABD pad/Hypafix. Change every other day and as needed for soiling/saturation.? *Do not use multiple pieces of Aquacel ag - concern for leaving pieces inside wound d/t depth and unable to visualize wound bed* *If aquacel ag is difficult to remove with dressing changes , please re-consult Inpatient Wound Care Team. Trauma can occur when removing a dry adhered dressing from a dry wound.? 2.) Continue use of specialty bed/low air loss mattress 3.) Turn and reposition every 2 hours and PRN 4.) Continue incontinence care as well as moisture management; do not utilize Mepilex foam dressingwith incontinence?? 5.) Do not utilize brief use?? 6.) Continue to offload bony prominences 7.) Continue to provide optimal nutritional support; nutrition consulted?? 8.) Provide Gaymar cushion to chair when patient OOB ? Intracardiac thrombosis (I51.3):??Continue Apixaban 5mg BID ?? Iron deficiency anemia (D50.9):??Continue ferrous sulfate 325 mg BID ?? Thrombocytosis (D75.839):??Continue hydroxyurea? Depression (F32.A):??Continue duloxetine 30 mg BID ?? Hypertension (I10):??Normotensive, dc 'ed amlodipine ?? Chronic GERD (K21.9):??Continue pantoprazole 40mg qd ?? Spastic hemiparesis (G81.10):??Continue tizanidine as needed ?? Objective . Physical Exam Constitutional: Alert, in no distress. Oriented??x 3.?? Respiratory: Clear lungs, no wheezing. No accessory muscle use Cardiovascular: S1 S2 regular. No murmurs Gastrointestinal: Abdomen soft, no abdominal tenderness, non-distended. Normal bowel sounds.?? Neurologic: Moving all extremities spontaneously. Psychiatric: Normal mood and affect Extremities: No lower extremity??edema. Multiple open wounds with serosanguinous drainage in right buttock and upper posterior thigh?? Pending Results No Pending Results Follow-Up Appointments Added Follow Up ?Time Frame ?Comments Colon-Webb MD, Derek Patient Instructions ??? Please follow-up with primary care physician for review list of medications, repeating aspect of blood monitoring CBC and renal function. Follow-up blood cultures to finality. ??? Please present to the emergency department if drainage is more excessive than usual, increased pain, new fevers or any other issues. ? Medications discontinued: Amlodipine New medications: Dilaudid tablet every 8 hours as needed for breakthrough pain Oxycodone 30 mg every 6 hours as been renewed. Post Discharge Care Discharge ?12/31/23 13:03:00 EDT Home Health Face to Face *Denotes mandatory burton ?? *I certify that this patient is under my care and that I or an allowed non- physician working with me had a face to face encounter with the patient on this date:??12/31/2023 13:18 ?? *The encounter with the patient was in whole, or in part, for the following medical condition, which is the primary diagnosis(es) for home health care:??Cellulitis (L03.90) Chronic GERD (K21.9) Hypertension (I10) Depression (F32.A) Thrombocytosis (D75.839) Iron deficiency anemia (D50.9) Intracardiac thrombosis (I51.3) Spastic hemiparesis (G81.10) Intractable pain (R52) Chronic, continuous use of opioids (F11.90) Chronic pain (G89.29) Hydradenitis (L73.2) ?? *Select the indications for the [...] weight bearing [_] Mental status change? *Physician Signature:??Willy Saenz ?? *By signing this, I certify that I have personally evaluated the patient and agree with the findings and recommendations as documented above. ? Results Discharge Labs BACTERIOLOGY Blood Culture Results Preliminary report ()?? 12/26/2023 00:08 Blood Culture Specimen Source BLOOD ()?? 12/26/2023 00:08 Blood Culture Isolate 1 Comment ()?? 12/26/2023 00:08 Blood Cult 2 Results Preliminary report ()?? 12/26/2023 00:08 Blood Culture 2 Specimen Source BLOOD ()?? 12/26/2023 00:08 Blood Culture 2 Isolate 1 Comment ()?? 12/26/2023 00:08 ?? BLOOD COUNT & DIFF WBC 7.6 k/mm3 ()?? 12/27/2023 06:38 RBC 3.70 m/mm3 (Low)?? 12/27/2023 06:38 Hgb 9.9 Gm/dL (Low)?? 12/27/2023 06:38 Hct 32.3 % (Low)?? 12/27/2023 06:38 MCV 87.3 femtoliters ()?? 12/27/2023 06:38 MCH 26.8 pg (Low)?? 12/27/2023 06:38 MCHC 30.7 g/dL (Low)?? 12/27/2023 06:38 Platelet Count 612 k/mm3 (High)?? 12/27/2023 06:38 RDW-SD 62.2 femtoliters (High)?? 12/27/2023 06:38 MPV 8.6 femtoliters (Low)?? 12/27/2023 06:38 Nucleated RBC (Automated) 0.0 #/100 WBC'S ()?? 12/27/2023 06:38 Abs. NRBC 0.0 k/mm3 ()?? 12/27/2023 06:38 Abs. Neut 3.9 k/mm3 ()?? 12/26/2023 00:08 Abs. Lymph 2.2 k/mm3 ()?? 12/26/2023 00:08 Abs. Barron 0.8 k/mm3 ()?? 12/26/2023 00:08 Abs. Eo 0.1 k/mm3 ()?? 12/26/2023 00:08 Abs. Baso 0.1 k/mm3 ()?? 12/26/2023 00:08 Neut % 54.9 % ()?? 12/26/2023 00:08 Lymph % 30.8 % ()?? 12/26/2023 00:08 Barron % 11.3 % (High)?? 12/26/2023 00:08 Eos % 2.0 % ()?? 12/26/2023 00:08 Baso % 0.7 % ()?? 12/26/2023 00:08 Imm Gran 0.3 % ()?? 12/26/2023 00:08 Abs. Imm Gran 0.0 k/mm3 ()?? 12/26/2023 00:08 ?? CHEM GENERAL Sodium 138 mmol/L ()?? 12/27/2023 06:39 Potassium 4.5 mmol/L ()?? 12/27/2023 06:39 Chloride 103 mmol/L ()?? 12/27/2023 06:39 Bicarbonate Level 23 mmol/L ()?? 12/27/2023 06:39 Anion Gap 12 ()?? 12/27/2023 06:39 Glucose Level 98 mg/dL ()?? 12/27/2023 06:39 BUN 15 mg/dL ()?? 12/27/2023 06:39 Creatinine-Blood 0.77 mg/dL ()?? 12/27/2023 06:39 Estimated GFR Creatinine 118 ML/MIN/1.73 M2 ()?? 12/27/2023 06:39 Calcium 8.9 mg/dL ()?? 12/27/2023 06:39 Phosphorus 4.1 mg/dL ()?? 12/27/2023 06:39 Magnesium 2.0 mg/dL ()?? 12/27/2023 06:39 Protein, Total 7.5 Gm/dL ()?? 12/26/2023 00:08 Albumin 3.7 Gm/dL ()?? 12/26/2023 00:08 AG Ratio 1.0 ()?? 12/26/2023 00:08 Alkaline Phosphatase 150 units/L (High)?? 12/26/2023 00:08 AST (SGOT) 16 units/L ()?? 12/26/2023 00:08 ALT (SGPT) 9 units/L ()?? 12/26/2023 00:08 Bilirubin, Total <0.2 mg/dL ()?? 12/26/2023 00:08 C-Reactive Protein 2.9 mg/dL (High)?? 12/26/2023 00:08 ?? HEME OTHER Sed Rate 113 mm/hr (High)?? 12/26/2023 00:08 ? 35??minutes spent on discharge * Lashawn Nagy RN: PERFORM Event Display: Patient Education/Instruction Authored Date: [id number] Inpatient Adult Discharge Instructions. [address] [address] Name: DAVID MCQUEEN : 1985?? Visit: 12/26/2023 06:15?? Current Date: 12/31/2023 13:09 ?? Account: [id number]?? Inpatient Adult Discharge Instructions We would like [...] and their families. Surveys are administered by [employer] ?? If further treatment with your primary care physician or another doctor is recommended, it is important for you to keep the appointment. Call your primary care physician or return to the Emergency Department immediately if your condition worsens, fails to improve, or new symptoms develop. If you need to find a doctor, you can call [facility] Link for a referral at [phone] or toll free at [phone] or log in to [email or web address].. ?? [facility], in keeping with [facility] guidance, no longer requires face masks for [...] a health care boyd of your choosing. [employer] is a website that allows you to securely view your medical information including your hospital discharge summary, office visit summaries, medications and follow-up visits. You can also request appointments, renew medications, and request access to your medical information using a health care boyd of your choosing, or just ask a question. You can enroll at [email or web address] or register during your next office visit. You have been discharged from [facility], Patient Care Unit: S3??. If you have any questions regarding these instructions, including results of studies pending, afteryou leave, please call us and we will be happy to assist you 03/12. [facility] Your Care Team Attending Physician Willy Saenz MD?? Consulting Providers Willy Saenz MD?? Discharging Providers Willy Saenz MD Reason for Your Visit R wound pain and bleeding, R buttock, + thinners?? Your Diagnosis Cellulitis Chronic GERD Chronic pain Chronic, continuous use of opioids Depression Hypertension Intracardiac thrombosis Intractable pain Iron deficiency anemia Spastic hemiparesis Thrombocytosis Tests Performed Below is a partial list of the tests performed during your hospitalization. You may have had other tests and procedures not included in this list. Please discuss all test results with your provider. Basic Metabolic Panel Blood Culture Blood Culture #2 Blood Culture 2 Results Blood Culture Result CBC CBC w/ Differential Comprehensive Metabolic Panel CRP ESR Magnesium Level Mg Level Phosphorus Level CT Ext Lower W/ Contrast Right CT Pelvis W/ Contrast Basic Metabolic Panel?? Blood Culture?? Blood Culture #2?? Blood Culture 2 Results?? Blood Culture Result?? C Reactive Protein (CRP)?? CBC?? CBC w/ Differential?? CT Ext Lower W/ Contrast Right?? CT Pelvis W/ Contrast?? Comprehensive Metabolic Panel?? Magnesium Level (Mg Level)?? Phosphorus Level?? Sedimentation Rate (ESR)?? Primary Care Provider Derek Tomas MD? Advance Directive Health Care Proxy on File Yes - Health Care Proxy Discharge Vitals Temperature: 97.5 DegF Weight: 93 kg Pulse Rate: 56 bpm ?? Respiratory Rate: 16 br/min ?? Respiratory Rate: 16 br/min ?? Respiratory Rate: 16 br/min ?? Respiratory Rate: 16 br/min ?? Systolic Blood Pressure: 96 mm Hg ?? Diastolic Blood Pressure:??40 mm Hg??Low ?? Oxygen Saturation: 98 % ?? Studies Pending All studies ordered during this hospital stay have been completed unless listed below. Please discuss all pending results with your provider listed above in these instructions. ?? No incomplete studies found?? What to do next Instructions From Your Doctor ??? Please follow-up with primary care physician for review list of medications, repeating aspect of blood monitoring CBC and renal function. Follow-up blood cultures to finality. ??? Please present to the emergency department if drainage is more excessive than usual, increased pain, new fevers or any other issues.\ ???Please follow-up with??plastic surgery as planned??for definitive management. ? Medications discontinued: Amlodipine New medications: Dilaudid tablet every 8 hours as needed for breakthrough pain Oxycodone 30 mg every 6 hours as been renewed. ? WOUND CARE: 1.)??Right buttock: Gently cleanse/irrigate wound beds followed by the periwound with VASHE solution moistened gauze. Allow to dry. Cut PECO Pallet in a spiral shape creating one long piece. Pack 'multiple separate tracts/tunnels' loosely with Aquacel ag, leaving a wick to allow for easy removal. Cover other draining 'tracts/tunnels' that can not be packed with Aquacel ag. Cover and secure with ABD pad/Hypafix. Change every other day and as needed for soiling/saturation.? *Do not use multiple pieces of Aquacel ag - concern for leaving pieces inside wound d/t depth and unable to visualize wound bed* *If aquacel ag is difficult to remove with dressing changes , please re-consult Inpatient Wound Care Team. Trauma can occur when removing a dry adhered dressing from a dry wound.? 2.) Continue use of specialty bed/low air loss mattress 3.) Turn and reposition every 2 hours and PRN 4.) Continue incontinence care as well as moisture management; do not utilize Mepilex foam dressingwith incontinence?? 5.) Do not utilize brief use?? 6.) Continue to offload bony prominences 7.) Continue to provide optimal nutritional support; nutrition consulted?? 8.) Provide Gaymar cushion to chair when patient OOB ? Orders? 12/31/23 13:03:00 EDT?? You Need to Schedule the Following Appointments Follow Up with??Derek Tomas MD Where: [address] [place] [address]- Discharge Medications CHARISSEGWYNS :1985 Visit Date:12/26/2023 Medications: Please continue your medications until treatment is completed or stopped by your provider. Medications not listed below should be discontinued. Discuss any questions related to medications with your provider. What How Much When Why Instructions Next Dose New Hydromorphone (Dilaudid 2 mg oral tablet) 2 Milligram Oral Every 8 hours as needed for Pain , Severe Duration: 5 Days Pickup at [facility] 3 as needed New Oxycodone (oxyCODONE 30 mg oral tablet) 1 tab(s) Oral Every 6 hours Duration: 7 Days Pickup at [facility] 3 every 6 hours Unchanged Acetaminophen (acetaminophen 500 mg oral tablet) 2 tab(s) Oral 3 times a day as needed for for pain as needed Unchanged apixaban (Eliquis 5 mg oral tablet) 1 tab(s) Oral Twice a day 12/30 Unchanged Ascorbic Acid (ascorbic acid 500 mg oral tablet) 1 tab(s) Oral Daily 12/31 Unchanged Baclofen (baclofen 20 mg oral tablet) 1 tab(s) Oral 4 times a day 4 X DaY Unchanged canakinumab (Ilaris 150 mg/ mL subcutaneous solution) 150 Milligram Subcutaneous Injection Every 28 days see instruction Unchanged Cholecalciferol (Vitamin D3 1000 intl units oral tablet) 1 tab(s) Oral Daily 12/31 Unchanged Clindamycin Topical (clindamycin 1% topical gel) APPLY TO AFFECTED AREA TOPICALLY TWICE A DAY ?? 12/30 Unchanged Docusate (docusate sodium 100 mg oral capsule) 1 capsule Oral Twice a day 12/30 Unchanged Duloxetine (duloxetine 30 mg oral enteric coated capsule) 1 capsule Oral Twice a day Duration: 30 Days TAKE 1 CAPSULE BY MOUTH EVERY DAY ?? 12/30 Unchanged Durable Medical Equipment (Vashe wound solution) See instructions Hydradenitis Use 45mL daily ?? see instruction Unchanged Ferrous Sulfate (ferrous sulfate 325 mg oral tablet) 1 tab(s) Oral Twice a day 12/30 Unchanged Folic Acid (folic acid 1 mg oral tablet) 1 tab(s) Oral Daily 12/31 Unchanged Gabapentin (gabapentin 600 mg oral tablet) 1 tab(s) Oral 3 times a day 12/30 Unchanged Hydroxyurea (hydroxyurea 500 mg oral capsule) 1 capsule Oral Daily 12/31 Unchanged nalOXONE (Narcan 4 mg/ 0.1 mL nasal spray) 1 spray(s) Nares, Both Once To be used use one spray in one nostril. if an additional dose is needed, alternate nostril. may repeat every 2 to 3 minutes until patient responds ?? see instruction Unchanged Pantoprazole (pantoprazole 40 mg oral delayed release tablet) 1 tab(s) Oral Daily 12/31 Unchanged Tizanidine (tiZANidine 2 mg oral tablet) 2 tab(s) Oral Every 8 hours as needed for as needed for muscle spasm as needed Unchanged Triamcinolone Topical (triamcinolone 0.1% topical cream) 1 boyd Topically Twice a day *DO NOT APPLY TO OPEN WOUND(S)* ?? 12/30 Pharmacy Information [facility] 3: [address], [place] [id number] [phone] ?? What How Much When Comments Stop Taking Amlodipine (amLODIPine 5 mg oral tablet) 1 tab(s) Oral Daily Prescription Given During Visit Hydromorphone (Dilaudid 2 mg oral tablet) - 2 mg, By Mouth, Every 8 hours, # 15 tablet, 0 Refills, [facility], [address] [place] [address] [phone]?? Oxycodone (oxyCODONE 30 mg oral tablet) - 1 tablet = 30 mg, By Mouth, Every 6 hours, # 28 tablet, 0Refills, [facility], [address] [place] [address] [phone]?? Laboratory Results Below is a partial list of the most recent Laboratory test results done prior to this discharge. You may have had other tests and procedures not included in this list. Please discuss all test resultswith your provider. Basic Metabolic Panel (12/27/2023) ???Sodium - 138 mmol/L???Potassium - 4.5 mmol/L???Chloride - 103 mmol/L???Bicarbonate Level - 23 mmol/L???Anion Gap - 12???Glucose Level - 98 mg/dL???BUN - 15 mg/dL???Creatinine-Blood - 0.77 mg/dL???Estimated GFR Creatinine - 118 ML/MIN/1.73 M2???Calcium - 8.9 mg/dL Blood Culture (12/26/2023) ???Blood Culture Results - Preliminary report???Blood Culture Specimen Source - BLOOD Blood Culture #2 (12/26/2023) ???Blood Cult 2 Results - Preliminary report???Blood Culture 2 Specimen Source - BLOOD Blood Culture 2 Results (12/26/2023) ???Blood Culture 2 Isolate 1 - Comment Blood Culture Result (12/26/2023) ???Blood Culture Isolate 1 - Comment CBC (12/27/2023) ???WBC - 7.6 k/mm3???RBC - 3.70 m/mm3???Hgb - 9.9 Gm/dL???Hct - 32.3 %???MCV - 87.3 femtoliters???MCH - 26.8 pg???MCHC - 30.7 g/dL???Platelet Count - 612 k/mm3???RDW-SD - 62.2 femtoliters???MPV - 8.6femtoliters???Nucleated RBC (Automated) - 0.0 #/100 WBC'S???Abs. NRBC - 0.0 k/mm3 CBC w/ Differential (12/26/2023) ???WBC - 7.1 k/mm3???RBC - 3.72 m/mm3???Hgb - 9.8 Gm/dL???Hct - 33.1 %???MCV - 89.0 femtoliters???MCH - 26.3 pg???MCHC - 29.6 g/dL???Platelet Count - 563 k/mm3???RDW-SD - 63.8 femtoliters???MPV - 8.4femtoliters???Nucleated RBC (Automated) - 0.0 #/100 WBC'S???Abs. NRBC - 0.0 k/mm3???Abs. Neut - 3.9 k/mm3???Abs. Lymph - 2.2 k/mm3???Abs. Barron - 0.8 k/mm3???Abs. Eo - 0.1 k/mm3???Abs. Baso - 0.1 k/mm3???Neut % - 54.9 %???Lymph % - 30.8 %???Barron % - 11.3 %???Eos % - 2.0 %???Baso % - 0.7 %???Imm Gran- 0.3 %???Abs. Imm Gran - 0.0 k/mm3 Comprehensive Metabolic Panel (12/26/2023) ???Sodium - 137 mmol/L???Potassium - 4.5 mmol/L???Chloride - 101 mmol/L???Bicarbonate Level - 25 mmol/L???Anion Gap - 11???Glucose Level - 106 mg/dL???BUN - 19 mg/dL???Creatinine-Blood - 0.85 mg/dL???Estimated GFR Creatinine - 115 ML/MIN/1.73 M2???Calcium - 8.8 mg/dL???Protein, Total - 7.5 Gm/dL???Albumin - 3.7 Gm/dL???AG Ratio - 1.0???Alkaline Phosphatase - 150 units/L???AST (SGOT) - 16 units/L???ALT (SGPT) - 9 units/L? ?Bilirubin, Total - <0.2 mg/dL CRP (12/26/2023) ???C-Reactive Protein - 2.9 mg/dL ESR (12/26/2023) ???Sed Rate - 113 mm/hr Magnesium Level (12/26/2023) ???Magnesium - 2.2 mg/dL Mg Level (12/27/2023) ???Magnesium - 2.0 mg/dL Phosphorus Level (12/27/2023) ???Phosphorus - 4.1 mg/dL You will be contacted within 72 hours with your results. Allergies (NKA means No Known Allergies) NKA [...] Belongings I fully understand and agree that [facility] accepts no responsibility for all my personal [...] ?? Date for Pt to Sign Valuables/Belongings: 12/26/23 07:26:00 ?? Other Discharge Information ? Case Management Discharge Plan?? Discharge Plan?? Discharge Agency Information?? Discharge Level of Care at Discharge: Homehealth/VNA Agency [employer]: Intake Discharge Rx Program: Discharge Prescription Program Service Categories #1: Physical Therapy, Halfway Discharge VNA/Hospice/Home Care: [facility] [phone] Service Comments #1: A nurse will call you to arrange a visit with you at your home. If you do not hear from agency, please call them. ?? Pulmonary Rehab Status?? Pulmonary Rehab Discharge Status?? Respiratory Rate: 16 br/min Respiratory Rate: 16 br/min Respiratory Rate: 16 br/min Respiratory Rate: 16 [...] are strongly encouraged to quit. Please call [facility] at [phone] or [phone] or log in to [email or web address] for referrals to smoking cessation programs. ?? 584 Suicide & Crisis Lifeline is available 03/12 if you or someone you know needs to find a reason to keep living. By calling 870 you'll be connected to a skilled, trained counselor at a crisis center in your area. INPATIENT DISCHARGE INSTRUCTIONS SIGNATURE PAGE DAVID MCQUEEN Location:[facility] Registration Date and Time:12/26/2023 06:15 EDT Primary Care Physician: Derek Tomas MD, Attending Physician: Willy Saenz MD, I DAVID MCQUEEN, have received the above patient education materials/instructions and have verbalized understanding. If ambulance or transport services are being used I further acknowledge being given a choice of service. ?? If you need to contact me, please call me at this number: . Patient/Welding Supervisor Name: Patient/Welding Supervisor Signature: Relationship to Patient: Witness Name/Signature: Date: * Lashawn Nagy RN: PERFORM Event Display: Patient Education Leaflets Authored Date: [id number] Cellulitis ?? [id number] Cellulitis Cellulitis is an infection of the [...] antibiotics ?? Last Reviewed Date: 2021 ?? [id number] [employer]. All rights reserved. This information is not intended as a substitute for professional medical care. Always follow your healthcare professional's instructions. ?? * Lashawn Nagy RN: PERFORM Event Display: Patient Education Leaflets Authored Date: [id number] Zones Cellulitis ?? 349 CELLULITIS ZONES EVERY DAY Taking Care of Yourself with Cellulitis Cellulitis is an infection of the layers of your skin. The infection may also spread to the tissue under your skin. Cellulitis is caused by germs called bacteria. The germs can enter your skin through an opening, such as from a bite, rash, scratch, or a cut. EVERY DAY: ??? Take your medicine as prescribed by the doctor. Complete all antibiotics even if you are feeling better. Do not miss a dose. ??? Keep an updated med list with you. ??? Be sure to make a visit with your doctor/nurse within a few days. ??? Wash your hands often and wash towels with hot water and soap or bleach after each use to kill the germs. ??? Do not share personal items (example: razors ortowels). ??? Take care of your skin. Use lotion to keep skin from drying out. ??? Raise affected arm or leg above the level of your heart when able in order to lessen swelling. ??? Limit the use of the affected body part since excess movement can cause the infection to spread. Which Zone are you today? GREEN, YELLOW, or RED? GREEN ZONE ALL CLEAR - This zone is your goal Your symptoms are under control when: ??? You have little to no pain. ??? Your swelling, warmth, pain, and/or redness of area are decreasing. ??? You have no fever or temperature greater than 100.4 F???. YELLOW ZONE ?? STOP & CALL CAUTION - This zone is a warning.?? If you have any of the following: Call your Doctor/Nurse: ??? You have a fever or temperature over 100.4 F???, feel weak, or feel dizzy. ??? Your pain, redness, or swelling is increasing. ??? Your symptoms are not improving after 3 days of being on antibiotics. ??? You have questions about Cellulitis or your medicine. ??? Drainage noted or change in color or odor. RED ZONE EMERGENCY: Speak with a Doctor/Nurse promptly if you have any of the following: (Do not drive yourself) ??? You have a high fever with shaking chills. ??? You have pus, mucous or bad smelling drainage coming from your affected area. ??? Increasing pain or swelling. ? Patient Care team information Care Team Personnel Name: Rita Welch RN Position: [facility] RN Member Role: Primary Care Nurse Name: Sanna Cardozo RN Position: [facility] RN Member Role: Primary Care Nurse Name: Anu Lipscomb RN Position: [facility] RN Member Role: Primary Care Nurse Name: Jeanne Bryant RN Position: [facility] RN Member Role: Primary Care Nurse Name: Mitch Guido RN Position: [facility] RN Member Role: Primary Care Nurse Name: Areli Pittman RN Position: [facility] ED RN W/OE and Tasks Member Role: Primary Care Nurse Name: Albertina Kerr RN Position: [facility] RN Member Role: Primary Care Nurse Name: Derek Tomas MD Position: [facility] Resident Member Role: PCP Address: Address: [address] [place] [id number] Name: Mari Suh RN Position: [facility] RN Member Role: Primary Care Nurse Name: Jen Garibay RN Position: [facility] RN Member Role: Primary Care Nurse Name: Monique Irwin LPN Position: [facility] RN Member Role: Primary Care Nurse Name: Lianna Epstein RN Position: [facility] RN Member Role: Primary Care Nurse Name: Austin Wright RN Position: [facility] RN Member Role: Primary Care Nurse Name: Mk Knutson LPN Position: [facility] RN Member Role: Primary Care Nurse Name: Vicenta Barnett RN Position: [facility] RN Member Role: Primary Care Nurse Name: Betty Fonseca RN Position: [facility] RN Member Role: Primary Care Nurse Name: Farhana Garcia RN Position: [facility] RN Member Role: Primary Care Nurse Name: Kenyatta Villegas RN Position: [facility] RN Member Role: Primary Care Nurse Name: Albertina Adams RN Position: [facility] RN Member Role: Primary Care Nurse Name: Ricardo Russell RN Position: [facility] RN Member Role: Primary Care Nurse Name: Gissell Jernigan RN Position: [facility] RN Member Role: Primary Care Nurse Name: Farhana Green RN Position: [facility] RN Member Role: Primary Care Nurse Name: Cydney Delgado RN Position: [facility] RN Member Role: Primary Care Nurse Name: Debbie Rios RN Position: [facility] RN Member Role: Primary Care Nurse Name: Sharon Mendez RN Position: [facility] RN Member Role: Primary Care Nurse Name: Mookie Christianson RN Position: [facility] RN Member Role: Primary Care Nurse Name: Ally Boyd RN Position: [facility] RN Member Role: Primary Care Nurse Name: Javed Oneill RN Position: [facility] RN Member Role: Primary Care Nurse Name: Frances Quach RN Position: [facility] RN Member Role: Primary Care Nurse Name: Sandie Mejia RN Position: [facility] RN Member Role: Primary Care Nurse Name: Kriss Castillo RN Position: [facility] RN Member Role: Primary Care Nurse Name: Lynn Stewart RN Position: [facility] RN Member Role: Primary Care Nurse Name: Amanda Johnson RN Position: [facility] RN Member Role: Primary Care Nurse Name: Jolie Villalobos RN Position: [facility] RN Member Role: Primary Care Nurse Name: Axel Savage RN Position: [facility] RN Member Role: Primary Care Nurse Name: Dirk Driver RN Position: [facility] RN Member Role: Primary Care Nurse Name: Glenys Bee RN Position: [facility] RN Member Role: Primary Care Nurse Name: Praveen Maurer RN Position: [facility] RN Member Role: Primary Care Nurse Name: Filemon King RN Position: [facility] RN Member Role: Primary Care Nurse Name: Gomez Corona RN Position: [facility] RN Member Role: Primary Care Nurse Name: Lauren Guevara RN Position: [facility] RN Member Role: Primary Care Nurse Name: Annamaria Quinn RN Position: [facility] RN Member Role: Primary Care Nurse Name: Deana Short RN Position: [facility] RN Member Role: Primary Care Nurse Name: Lashawn Nagy RN Position: [facility] RN Member Role: Primary Care Nurse Name: [...] Persons Name: KAMILLE REYNAGAA Address: [address] [place] [address] Name: HEENA MCQUEEN Address: [address] [place] [address] Name: AISLINN DE LA PAZ Address: [address] [place] [address]
--- OUTSIDE RECORDS SUMMARY | 2024-01-21 19:35 | XMS_ITS | Continuity of Care Document ---
Author Organization [facility] ter Address [address] [place] [id number]- Care Team Providers Care Wind Energy Technician Name Role Phone Guillermo PAGAN, Niki Primary Care Physician [place] [facility] [place]): [place]23 - 05/28/[address] [address] Discharge Disposition: A-Transfer VNA/Home Health Attending Physician: Dylan Mendez MD Admitting Physician: Karishma Massey MD Referring Physician: Not on Staff, Referring [...] Stop 12/08/23 11:18:00 EDT, 12/13/22 11:18:00 EDT, [facility]/pharmacy #[id number], 193.04, cm, 12/13/22 10:25:00 EDT, Height, 99.6, kg, 06/06/22 18:00:00 EST, Dry Weight Start Date: 12/13/22 Stop Date: 12/08/23 Status: Ordered amLODIPine 5 mg oral tablet 5 mg, Tablet, By Mouth, 05/28/23 9:00:00 EST Start Date: 05/28/23 Stop Date: 05/28/23 Status: Completed amoxicillin-clavulanate 875 mg-125 mg oral tablet = 875 mg, By Mouth, 2 times a day, # 4 tablet, 0 Refills, Acute 05/30/23 8:48:00 EST, 05/28/23 8:48:00 EST, Tablet, [facility], Partial fill upon patient request if the prescription is for a schedule II opioid drug., 193, cm, 05/28/23 4:... Start Date: 05/28/23 Stop Date: 05/30/23 Status: Ordered baclofen 20 mg oral tablet 20 mg, 1, tablet, By Mouth, 4 times a day, # 120 tablet, Refills 5, Tot. Refills 5, Maintenance, 10/26/21 9:45:00 EDT, Route to Pharmacy Electronically, [facility]/pharmacy #[id number], 193, cm, 10/26/21 9:21:00 EDT, Height, 97.2, kg, 10/26/21 9:21:00 EDT, Dry Weight Start Date: 10/26/21 Status: Ordered CHUX CHUX, See Instructions, # [...] capsule, 5 Refills, Maintenance, 08/17/22 15:25:00 EDT, [facility] [address], 193.04, cm, 07/23/22 14:07:00 EDT, Height, 99.6, [...] Maintenance, 08/13/22 15:55:00 EDT, Route toPharmacy Electronically, [facility] [address], 193.04, cm, 07/23/22 14:07:00 EDT, Height, 99.6, [...] Maintenance,05/22/23 23:48:00 EST, Route to Pharmacy Electronically, [facility]/pharmacy #[id number], Partial fill upon patient request if the prescription is for a schedule II... Start Date: 05/22/23 Status: Ordered gabapentin 300 mg oral capsule 300 mg, Capsule, By Mouth, 05/28/23 9:00:00 EST Start Date: 05/28/23 Stop Date: 05/28/23 Status: Completed Hospital bed Hospital bed, See Instructions, # [...] capsule, 5 Refills, Maintenance, 08/13/22 15:28:00 EDT, [facility]/pharmacy #[id number], 193.04, cm, 07/23/22 14:07:00 EDT, Height, 99.6, kg, 06/06/22 18:00:00 EST, Dry Weight Start Date: 08/13/22 Status: Ordered oxyCODONE 5 mg oral tablet 10 mg, Tablet, By Mouth, Every 6 hours, PRN for Pain , Severe, Routine, 05/25/23 16:49:00 EST Start Date: 05/25/23 Stop Date: 05/28/23 Status: Discontinued oxyCODONE 5 mg oral tablet 10 mg, 2, tablet, By Mouth, Every 6 hours, PRN, Take 1-2 tablets depending on severity of pain upto4 times a day., # 30 tablet, Refills 0, Tot. Refills 0, Maintenance, Pain , Severe, 05/28/23 8:49:00 EST, Route to Pharmacy Electronically, [facility]... Start Date: 05/28/23 Status: Ordered Right ankle & foot orthosis Right ankle & foot orthosis, See Instructions, # 1 each, Refills 1, Tot. Refills 1, Maintenance, Please dispense 1 right ankle and foot othosis Dx: R29.898, R26.81, M25.373 Length of need: 99 months Number to fax to: [phone], 01/06/21 13:10:00 E... Start Date: 01/06/21 Status: Ordered transfer tub bench transfer tub [...] apex Confirmed Active BHN CP Care Management, Brewmaster Carmenjuliet Elizabeth [phone] Confirmed Active Therapeutic drug monitoring Confirmed Active Peripheral neuropathy Confirmed Active Spasticity Confirmed Active Tobacco dependence Confirmed Active Results Orders for Microbiology Reports Name Date Blood Culture 05/23/23 Blood Culture #2 05/23/23 Microbiology Reports TEST:Blood Culture STATUS:Auth (Verified) BODY SITE: SOURCE:Blood COLLECTED DATE/TIME:05/23/23 12:35 AM Blood Culture SPECIMEN DESCRIPTION : BLOOD NOT GIVEN SPECIAL REQUESTS : NONE CULTURE : NO GROWTH 5 DAYS. REPORT STATUS : FINAL 05/28/2023 TEST:Blood Culture, Second Order STATUS:Auth (Verified) BODY SITE: SOURCE:Blood COLLECTED DATE/TIME:05/23/23 12:35 AM Blood Culture, Second Order SPECIMEN DESCRIPTION : BLOOD NOT GIVEN SPECIAL REQUESTS : NONE CULTURE : NO GROWTH 5 DAYS. REPORT STATUS : FINAL 05/28/2023 Radiology Reports * Exam Date Time Procedure Performing Provider Status 05/24/23 8:02 PM Chest Portable Farhana Parish; Auth ( Verified) Notes: (Chest Portable) Reason For Exam: Fever RESULT: Chest Portable Chest Portable Reason: Fever; Clinical Question(s): Pneumonia COMPARISON: 02/20/2021 FINDINGS: LINES AND TUBES: None. LUNGS AND PLEURA: Mild bronchial wall thickening. No consolidation. No pleural effusion. No pneumothorax. HEART, MEDIASTINUM AND BERNARD: Heart is normal in size. Normal mediastinal and hilar contour. BONES AND SOFT TISSUES: No acute abnormality. IMPRESSION: Mild perihilar bronchial wall thickening consistent with upper respiratory tract infection. WSN: [id number] Ordering Physician: Glenn Diggs Dictated By: Mando Bhatia MD Dictated Date/Time: 05/24/23 8:05 pm Reviewed By: Mando Bhatia MD Signed By: Mando Bhatia MD Signed Date/Time: 05/24/23 8:05 pm Transcribed By: ZEHRA Transcribed Date/Time: 05/24/23 8:04 pm * Exam Date Time Procedure Performing Provider Status 05/23/23 1:[address] Pelvis W/ Contrast Dahlia Serrano on; Auth (Verified) Notes: (CT Pelvis W/ Contrast) Reason For Exam: concern abscess, hidrandenitis to R buttock;Pain RESULT: CT Pelvis W/ Contrast CT Pelvis W/ Contrast Reason: Pain; concern abscess, hidrandenitis to R buttock; Clinical Question(s): Abscess; Order Comment: TECHNIQUE: Helical CT with IV contrast formatted in 3 planes. 100 cc of Omnipaque 300 was administered intravenously. Enteric contrast administered. Automatic tube modulation and/or iterative dose reconstruction were used to optimize exposure parameters. COMPARISON: Multiple prior examinations, most recently 06/04/2022. FINDINGS: Development Coach View Findings, Lines and Tubes: None. Visualized bowel: Normal caliber bowel loops without acute surrounding inflammatory changes. Appendix: Normal. Bladder: Unremarkable. Reproductive organs: Unremarkable. Peritoneum and retroperitoneum: No ascites or pneumoperitoneum. No omental or mesenteric lesions. Lymph nodes: Fairly stable paracaval and right common iliac lymph nodes with slight interval worsening pathologically enlarged right inguinal lymph nodes. Slight interval worsening of pathologically enlarged bilateral inguinal lymph nodes measuring up to 1.9 cm in short axis on the right (201:58). Blood vessels: Normal. No evidence of venous thrombosis. Pelvic soft tissues: Persistent bilateral heterogeneous soft tissue thickening in the posterior gluteal region which measures up to 1.4 cm in thickness on the right and 0.3 cm on the left. A small ill-defined somewhat ovoid shaped hypodensity measuring fluid density is seen within the soft tissue thickening on the right (201:96). A few additional scattered areas of low attenuation are also identified throughout the thickened skin. Bones: No acute abnormality. Unchanged surgical screw on the proximal left femur with adjacent degenerative changes. IMPRESSION: Persistent bilateral superficial soft tissue thickening in the gluteal region measuring up to 1.4 cm in thickness on the right and 0.3 cm in thickness on the left. There are scattered areas of low attenuation within the soft tissue thickening, right greater than left without definitive evidence of a drainable collection. Worsening lymphadenopathy which is likely reactive in nature. Other etiologies cannot be completelyexcluded. Results were relayed by [facility] by Dr. Ellis to Tarah LUTZ on 05/23/2023 2:39 AM. I have personally reviewed the images and I agree with this report. WSN: [id number] Ordering Physician: Han Phillips Dictated By: Chava Ellis MD Dictated Date/Time: 05/23/23 8:05 am Reviewed By: Patricio De Jesus MD Signed By: Patricio De Jesus MD Signed Date/Time: 05/23/23 8:10 am Transcribed By: ZEHRA Transcribed Date/Time: 05/23/23 2:40 am Vital Signs Most recent to oldest [Reference Range]: 1 2 3 Height 193 cm (05/28/23 11:48 AM) 193 cm (05/28/23 4:15 AM) 193 cm (05/27/23 11:05 PM) Weight 89.6 kg (05/24/23 8:18 AM) Oxygen Saturation [94-100 %] 98 % (05/28/23 11:48 AM) 97 % (05/28/23 7:00 AM) 99 % (05/28/23 4:15 AM) Pulse Rate [55-90 bpm] 68 bpm (05/28/23 11:48 AM) 58 bpm (05/28/23 7:00 AM) 64 bpm (05/28/23 4:15 AM) Body Mass Index [18.5-24.99 kg/m2] 24.05 kg/m2 (05/24/23 8:18 AM) Blood Pressure [90-138/55-84 mm Hg] 130/60mm Hg (05/28/23 11:48 AM) 103/66mm Hg (05/28/23 10:18 AM) 103/66mm Hg (05/28/23 7:00 AM) Respiratory Rate [16-30 br/min] 18 br/min (05/28/23 11:48 AM) 20 br/min (05/28/23 11:17 AM) 18 br/min (05/28/23 11:17 AM) Temperature [96.8-100.4 DegF] 98.7 DegF (05/28/23 11:48 AM) 97.7 DegF (05/28/23 7:00 AM) 98.6 DegF (05/28/23 4:15 AM) Mode of Delivery (Oxygen) Room air (05/28/23 11:48 AM) Room air (05/28/23 7:00 AM) Room air (05/28/23 4:15 AM) Blood pressure sites Arm, left (05/28/23 11:48 AM) Arm, right (05/28/23 7:00 AM) Arm, left (05/27/23 11:05 PM) Temperature Route Oral (05/28/23 11:48 AM) Oral (05/28/23 7:00 AM) Oral (05/28/23 4:15 AM) Dry Weight 89.6 kg (05/24/23 8:18 AM) Weight Obtained Via Bed scale (05/24/23 8:18 AM) Dry Weight Obtained Via Bed scale (05/24/23 8:18 AM) Social History Social History Type Response Smoking Status 5-9 cigarettes (betw een 1/4 to 1/2 pack)/day in last 30 days entered on: 05/16/22 Sex Admission evaluation note * Maciel PAGAN, Lolis: PERFORM, MODIFY, MODIFY, MODIFY Event Display: Admission Note Authored Date: Patient: ??DAVID MCQUEEN ? Age:??37 Years?Sex:??Male?:??1985?? Chief Complaint/Reason for Consultation From home - hx of stroke 3 yrs ago and bedbound and R side defcits, reports gluteal wound with 10/10 pain. Unsure if follows up with wound care per ems. History of Present Illness ??David Sadler is a 37-year-old man with a history of left ICA stroke with residual sided weakness, cardiac thrombus, severe hidradenitis suppurativa status post excision of left buttock plastic surgery, followed by Derm as outpatient who presented with right-sided drainage, buttock pain. Patient was discharged from [facility] in the fall 2022, discharged to a rehab facility in [facility].?? His mother took him out of that rehab 2 days ago AMA, she is not able to take care of him at home however. In the ED patient's blood pressure, oxygenation, pulse and respiratory rate are stable.?? He was found to have a fever of 100.6. Labs are notable for WBC count of 10.2, hemoglobin of 7.1 (baseline around 05/14) platelet count of981.?? Normal electrolytes. CT of his abdomen and pelvis showed persistent bilateral superficial soft tissue thickening measuring up to 1.4 cm on the right, 0.3 cm on the left.?? No drainable collection.?? Worsening lymphadenopathy likely reactive. Patient received 1 g of vancomycin and IV hydromorphone for pain control. Review of Systems All systems reviewed and negative except above.?? Objective Vital Signs?? Temperature: 98.7 DegF (05/23/23 13:09:00) Temperature Route: Oral (05/23/23 13:09:00) Pulse Rate: 61 bpm (05/23/23 13:09:00) Respiratory Rate:??12 br/min??Low (05/23/23 13:09:00) Systolic Blood Pressure: 113 mm Hg (05/23/23 13:09:00) Diastolic Blood Pressure: 77 mm Hg (05/23/23 13:09:00) Blood pressure sites: Arm, left (05/23/23 13:09:00) Mean Arterial Pressure: 89 mm Hg (05/23/23 13:09:00) Pulse Pressure: 36 mm Hg (05/23/23 13:09:00) Oxygen Saturation: 100 % (05/23/23 13:09:00) Mode of Delivery (Oxygen): Room air (05/23/23 13:09:00) Early Warning Score: 0 (05/23/23 13:10:50) ? Intake/Output? 05/22 22:45 05/23 07:00 05/22 07:00 05/21 07:00 05/20 07:00 ?? 05/23 14:13 05/23 14:13 05/23 06:59 05/22 06:59 05/21 06:59 Intake ?200 ?0 ?200 ?0 ?0 Output ?0 ?0 ?0 ?0 ?0 Net Total ?200 ?0 ?200 ?0 ?0 ? Physical Exam General:??No acute distress, AAOx3. HEENT:??Atruamatic/normocephalic, Cardio:??Regular rate Respiratory:??CTA Abdomen:??Soft, NT, nondistended Extremities:??No peripheral cyanosis or edema. Skin: multiple areas of drainage, bloody and serosanguinous on b/l buttocks and upper posterior thighs Vascular:??Pulses present and equal distally. Neuro:??weakness, contractures left upper and lower extremities Assessment/Plan Diagnoses Hidradenitis ??(L73.2) History of left ICA stroke ??(Z86.73) Sepsis ??(A41.9) Thrombocytosis ??(D75.839) ?? Assessment:??David Sadler is a 37-year-old man with a history of left ICA stroke with residual sided weakness, cardiac thrombus, severe hidradenitis suppurativa status post excision of left buttock plastic surgery, followed by Derm as outpatient who presented with right-sided drainage, buttock pain, found to have a fever. ?? Sepsis (A41.9):?? Hidradenitis (L73.2):?? CT of his abdomen and pelvis showed persistent bilateral superficial soft tissue thickening measuring up to 1.4 cm on the right, 0.3 cm on the left.??No drainable collection.??Worsening lymphadenopathy likely reactive Patient is being followed at [facility] by a multidisciplinary team for his hidradenitis and is pending surgical treatment on the right side ( already had in on left) Since patient came in febrile signs of sepsis and a lot of drainage from his wounds, will continue vancomycin Wound care consult placed If no improvement, could consider surgical evaluation??for further management continue pain management, holding home morphine??and fentanyl follow up blood cultures ?? History of left ICA stroke (Z86.73):?? into MCA 06/14 thrombus continue baclofen for spasms holding eliquis due to bleeding from buttock wounds restart tomorrow if hb stable last echo here 2020 did not show a cardiac thrombus ?? Thrombocytosis (D75.839):??patient is on hydroxyurea as outaptient, will continue ?? Acute on chronic normocytic anemia Patient??baseline hemoglobin is around 9.5,??possibly secondary??to??chronic disease Current hemoglobin??at admission is 7.1, patient??has been having continuous??bleeding from his wounds Holding Eliquis for now Continue trending hemoglobin, transfuse as needed for hemoglobin goal of 7 ?? Hypertension continue amlodipine ?? VTE Prophylaxis:??kelsey on hold due to Hb of 7.1 and bleeding from his wounds ?? Code Status:??full ?? Ongoing Medical Necessity:??IV antibiotics, pain control, monitoring anemia ? Histories Allergies Allergies ?(Active and Proposed Allergies Only) NKA? (Severity: Unknown severity, Onset: Unknown) ? Past Medical History/Problem List Active [facility]??[facility] Carmen Elizabeth [phone] Chronic ischemic left ICA stroke Controlled substance agreement signed 10/16/22 Depression GERD [...] M25.373Length of need: 99 monthsNumber to fax to:[phone] Durable Medical Equipment (3 in 1 commode)?See Instructions?use as needed to prevent fall. Diagnosis: Stroke, Impaired Mobility. ICD10 I63.9, ICDR26.2.KRISSY 99for PCP Tanja Fuchs to Steve Durable Medical Equipment (transfer tub bench)?See Instructions?use as needed to prevent fall. Diagnosis: Stroke, Impaired Mobility. ICD10 I63.9, ICDR26.2.KRISSY 99for PCP Tnaja Fuchs to [facility] Durable Medical Equipment (large gauze)?See Instructions?L73.2 HS Durable Medical Equipment (Diapers, adult extra Large)?See Instructions?2 per dayChronic drainage, bleeding of buttocks lesions due to severe hidradenitis L73.2Functional Incontinence R39.81 Please fax to [facility] Durable Medical Equipment (CHUX)?See Instructions?2 per dayFunctional Incontinence R39.81 Durable Medical Equipment (Hospital bed)?See Instructions?Use as needed daily Ferrous Sulfate (ferrous sulfate 325 mg oral tablet)?TAKE 1 TABLET BY MOUTH EVERY DAY NEEDED Fluoxetine (FLUoxetine 20 mg oral capsule)?1?capsule?By Mouth?Daily Folic Acid (folic acid 1 mg oral tablet)?TAKE 1 TABLET BY MOUTH EVERY DAY THAT YOU ARE NOT TAKING METHOTREXATE Gabapentin (gabapentin 300 mg oral capsule)?300?Milligram?1?capsule?By Mouth?3 times a day Hydroxyurea (hydroxyurea 500 mg oral capsule)?1?capsule?500?Milligram?By Mouth?Daily Morphine (morphine 15 mg oral tablet, immediate release)?1?tab(s)?15?Milligram?By Mouth?Every 6 hours?as needed?as needed for pain?for 30?Days Omeprazole (omeprazole 40 mg oral enteric coated capsule)?1?capsule?By Mouth?Daily ? Results Recent Labs BLOOD COUNT & DIFF WBC 10.2 k/mm3 ()?? 05/23/2023 00:35 RBC 3.05 m/mm3 (Low)?? 05/23/2023 00:35 Hgb 7.1 Gm/dL (Low)?? 05/23/2023 00:35 Hct 24.4 % (Low)?? 05/23/2023 00:35 MCV 80.0 femtoliters ()?? 05/23/2023 00:35 MCH 23.3 pg (Low)?? 05/23/2023 00:35 MCHC 29.1 g/dL (Low)?? 05/23/2023 00:35 Platelet Count 981 k/mm3 (High)?? 05/23/2023 00:35 RDW-SD 58.1 femtoliters (High)?? 05/23/2023 00:35 MPV 8.1 femtoliters (Low)?? 05/23/2023 00:35 Nucleated RBC (Automated) 0.0 #/100 WBC'S ()?? 05/23/2023 00:35 Abs. NRBC 0.0 k/mm3 ()?? 05/23/2023 00:35 Abs. Neut 7.7 k/mm3 (High)?? 05/23/2023 00:35 Abs. Lymph 1.6 k/mm3 ()?? 05/23/2023 00:35 Abs. [place] 0.8 k/mm3 ()?? 05/23/2023 00:35 Abs. Eo 0.0 k/mm3 ()?? 05/23/2023 00:35 Abs. Baso 0.0 k/mm3 ()?? 05/23/2023 00:35 Neut % 75.1 % ()?? 05/23/2023 00:35 Lymph % 15.5 % ()?? 05/23/2023 00:35 [place] % 8.2 % ()?? 05/23/2023 00:35 Eos % 0.4 % ()?? 05/23/2023 00:35 Baso % 0.2 % ()?? 05/23/2023 00:35 Imm Gran 0.6 % ()?? 05/23/2023 00:35 Abs. Imm Gran 0.1 k/mm3 ()?? 05/23/2023 00:35 ?? CHEM GENERAL Sodium 138 mmol/L ()?? 05/23/2023 00:35 Potassium 4.9 mmol/L ()?? 05/23/2023 00:35 Chloride 101 mmol/L ()?? 05/23/2023 00:35 Bicarbonate Level 28 mmol/L ()?? 05/23/2023 00:35 Anion Gap 9 ()?? 05/23/2023 00:35 Glucose Level 102 mg/dL (High)?? 05/23/2023 00:35 BUN 12 mg/dL ()?? 05/23/2023 00:35 Creatinine-Blood 1.0 mg/dL ()?? 05/23/2023 00:35 Estimated GFR Creatinine 105 ML/MIN/1.73 M2 ()?? 05/23/2023 00:35 Calcium 8.6 mg/dL ()?? 05/23/2023 00:35 Protein, Total 7.3 Gm/dL ()?? 05/23/2023 00:35 Albumin 3.0 Gm/dL (Low)?? 05/23/2023 00:35 AG Ratio 0.7 ()?? 05/23/2023 00:35 Alkaline Phosphatase 92 units/L ()?? 05/23/2023 00:35 AST (SGOT) 19 units/L ()?? 05/23/2023 00:35 ALT (SGPT) 7 units/L ()?? 05/23/2023 00:35 Bilirubin, Total <0.2 mg/dL ()?? 05/23/2023 00:35 ?? HEME OTHER Hold Blue Top SPECIMEN DISCARDED AFTER 4 HOURS. ()?? 05/23/2023 00:35 ?? MISC. CHEMISTRY Hold Green Top SPECIMEN DISCARDED AFTER 1 WEEK ()?? 05/23/2023 00:35 Hold Sutton Top SPECIMEN DISCARDED AFTER 1 WEEK ()?? 05/23/2023 00:35 ?? VIROLOGY Influenza A PCR NEGATIVE ()?? 05/23/2023 00:27 Influenza B PCR NEGATIVE ()?? 05/23/2023 00:27 RSV PCR NEGATIVE ()?? 05/23/2023 00:27 COVID-19 PCR Specimen Source NASAL ()?? 05/23/2023 00:27 COVID-19 PCR Result NEGATIVE ()?? 05/23/2023 00:27 ? Microbiology ?? COVID-19, RSV, and Flu A/B, Rapid PCR?? Completed?? Source: Nasal Body Site: Nose Collected Dt/Tm: 05/23/2023 00:27 Last Updated Dt/Tm: 05/23/2023 01:34 ? Imaging(s) ?CT Pelvis W/ Contrast ?? 05/23/2023 01:47??by Patricio De Jesus MD ? IMPRESSION: ?? Persistent bilateral superficial soft tissue thickening in the gluteal region measuring up to 1.4 cm in thickness on the right and 0.3 cm in thickness on the left. There are scattered areas of low attenuation within the soft tissue thickening, right greater than left without definitive evidence of a drainable collection. ?? Worsening lymphadenopathy which is likely reactive in nature. Other etiologies cannot be completelyexcluded. ? Hospital Progress note * Karla Sethi RN: PERFORM, SIGN, VERIFY Event Display: Progress Note Hospital Authored Date: [id number] Patient: DAVID MCQUEEN Age: 37 years Sex: Male : 1985 Associated Diagnoses: None Author: Karla Sethi RN Findings Problem Related to Alteration in Integumentary : Alteration in Integumentary/new 05/28/2023 3:17 EST Alteration in Integumentary Related to Cellulitis Goals & Outcomes, Integumentary Pt will maintain adequate fluid & nutritional balance, Wound will progress towards healing Interventions, Integumentary Consult Wound Care as needed for further interventions, Encourage & assist pt to change position frequently, Ensure relief modes are on mattress surface & utilized, Increase turning frequency if red or blanched areas appear, Keep bed as flat as tolerated to reduce shearing, Keep linen clean, dry and wrinkle free, Keep skin clean & dry, Maintain sterile technique with dressing changes, Minimize friction, shear and moisture, Monitor reddened areas for continued or increasing reddness, Record extent of impaired skin integrity BH Goals/Interventions, Integumentary Yes Integumentary, Problem Start 05/24/2023 12:00 Reviewed plan with, Integumentary Patient Patient Progression, Integumentary Pt progressing according to plan . Nursing Data Vital Signs : VITAL SIGNS SECTION 05/27/2023 23:05 EST Temperature 99.0 DegF Temperature Route Oral Pulse Rate 61 bpm Respiratory Rate 18 br/min Systolic Blood Pressure 120 mm Hg Diastolic Blood Pressure 65 mm Hg Blood pressure sites Arm, left Mean Arterial Pressure 83 mm Hg Pulse Pressure 55 mm Hg Oxygen Saturation 99 % Mode of Delivery (Oxygen) Room air . Narrative/Incidental Patient is alert and orientedx4. Tolerated oral medications well. C/o pain to buttocks that was managed with PRN PO Oxycodone, positive effect. No s/s of respiratory distress, breathing freely on room air. Able to make needs known. Call mariee within reach at all times. Pt offers no concerns, complaints, or questions at this time. Discharge Information Case Management Discharge Plan : Case Management Discharge Plan Data 05/27/2023 12:07 EST Discharge Level of Care at Discharge Home/Custodial/Foster Care Discharge VNA/Hospice/Home Care [facility] [phone] Name of Agency #1 [facility] Categories #1 Wound Care Rehabilitation Discharge : Rehab Discharge Index 05/26/2023 15:30 EST Comments on treatment indicated OT Tx: ADLs Full chart review completed Yes Transfer tub/shower OT Plan Min assist 05/25/2023 11:15 EST Comments on treatment indicated 37 yo M with Hx of CVA with R hemiparesis and dysarthria, and hidradenitis suppurativa with wounds to bilateral buttocks pain, possible infection. WBAT. Skilled PT indicated for functional mobility, strengthening/ROM, balance. Rec rehab. Distance pt will ambulate >20 ft Full chart review completed Yes Hospital course See comment Other findings Pt mod complex eval this date due to complex medical history and reason for admission impact on PT POC and functional mobility. Plan of care PT Gait training, Transfer training, Therapeutic exercise, Functional Activities, Balance training * Dylan Mendez MD: PERFORM Event Display: Progress Note Hospital Authored Date: Patient: ??DAVID MCQUEEN ? Age:??37 Years?Sex:??Male?:??1985?? Subjective Patient is sitting up in bed??just finished his breakfast. ??States he is feeling well. Pain is well-controlled with medication Denies any nausea vomiting Denies any headache dizziness Review of Systems As above Objective Vital Signs?? Temperature: 98.4 DegF (05/27/23 07:55:00) Temperature Route: Oral (05/27/23 07:55:00) Pulse Rate: 60 bpm (05/27/23 07:55:00) Respiratory Rate: 18 br/min (05/27/23 14:42:00) Respiratory Rate: 18 br/min (05/27/23 14:42:00) Systolic Blood Pressure: 119 mm Hg (05/27/23 07:55:00) Diastolic Blood Pressure: 71 mm Hg (05/27/23 07:55:00) Blood pressure sites: Arm, left (05/27/23 07:55:00) Mean Arterial Pressure: 87 mm Hg (05/27/23 07:55:00) Pulse Pressure: 48 mm Hg (05/27/23 07:55:00) Oxygen Saturation: 98 % (05/27/23 07:55:00) Mode of Delivery (Oxygen): Room air (05/27/23 07:55:00) Early Warning Score: 0 (05/27/23 14:43:40) ? Physical Exam Constitutional: Alert, in no acute distress. Mental Status: Oriented to person, and place Respiratory: Clear to auscultation No wheezing, rales or rhonchi. Cardiovascular: S1 S2 regular. Gastrointestinal: Abdomen soft, non-tender, non-distended. Neurologic:??Following simple commands well.?? No new focal deficits on exam today Musculoskeletal: No Leg edema skin: Bilateral gluteal folds??no signs of active inflammation?? _ Inpatient Medications Medications (22) Active SCHEDULED: (12) Amlodipine 5 mg Tablet (amLODIPine 5 mg oral tablet) ??5 mg, By Mouth, Daily Apixaban 5 mg Tablet (Eliquis) ??5 mg, By Mouth, 2 times a day Baclofen 10 mg Tablet (baclofen 10 mg oral tablet) ??20 mg, By Mouth, 4 times a day Duloxetine 30 mg Capsule (Duloxetine) ??30 mg, By Mouth, Daily Fluoxetine 20 mg Capsule (FLUoxetine 20 mg oral capsule) ??20 mg, By [...] release tablet) ??40 mg, By Mouth, Daily before breakfast Vancomycin 1250 mg Inj (Vancomycin IVPB) ??1,250 mg, IVPB, Every 12 hours Vashe Wound Care Emollient/Cleanser (Vashe Topical Solution) ??475 mL, Topically, Every other day CONTINUOUS: (0) PRN: (10) Acetaminophen 325 mg [...] oral tablet) ??5 mg, By Mouth, Every 6 hours OxyCODONE 5 mg IR Tablet (oxyCODONE 5 mg oral tablet) ??10 mg, By Mouth, Every 6 hours Polyethylene Glycol 17 Gm Powder (MiraLax Powder) ??17 Gm 1 pack/packet, By Mouth, Daily Senna Tablet ??8.6 mg 1 tablet, By Mouth, 2 times a day Simethicone 80 mg Chewable Tablet (Simethicone Tablet) ??80 mg, Chew, 3 times a day ? Assessment/Plan Chief Complaint: From home - hx of stroke 3 yrs ago and bedbound and R side defcits, reports gluteal wound with 10/10 pain. Unsure if follows up with wound care per ems. ?? 37-year-old man with a history of left ICA stroke with residual sided weakness, cardiac thrombus, severe hidradenitis suppurativa status post excision of left buttock plastic surgery, followed by Derm as outpatient who presented with right-sided drainage, buttock pain.? Patient was discharged from [facility] in the fall 2022, discharged to a rehab facility in [facility].?? His mother took him out of that rehab 2 days ago AMA, she is not able to take care of him at home however. In the ED Tmax was 100.6. ??WBC count of 10.2, hemoglobin of 7.1 (baseline around ) platelet count of 981.?? Normal electrolytes. CT of his abdomen and pelvis showed persistent bilateral superficial soft tissue thickening measuring up to 1.4 cm on the right, 0.3 cm on the left.?? No drainable c ollection.?? Worsening lymphadenopathy likely reactive. ??Patient was started on vancomycin??for cellulitis and admitted for further management ? Hidradenitis suppurativa -per mother patient has upcoming appointment at [facility] to discuss surgical options, continue would care while in house and will set up VNA to help family with wound care upon discharge ?? Fever, cellulitis- resolved -has one fever spike in ER without recurrence, hemodynamically stable, no other evidence of sepsis,wound picture reviewed no significant discharge, purulence, induration or other evidence of acute inflammation, UA negative, will obtain CXR to complete the workup but clinically low suspicion for pneumonia, continue vancomycin but can transition to PO abx once afebrile and culture remains negativefor 48 hours to complete a course of mild cellulitis Blood cultures no growth till date On vancomycin>>??Augmentin ?? History of ischemic left MCA stroke?? Mural thrombus of cardiac apex -chronic dysarthria and R hemiparesis,?? continue baclofen for spasm on eliquis ?? Iron deficiency anemia?? -update iron studies, if no serious infection and remains iron deficient can consider offer some Venofer before discharge to help H/H recovery and lower transfusion need for future surgery, transfuseas needed at usual threshold ?? Thrombocytosis -unclear etiology recently started on Hydrea will continue and follow up with outpatient provider ?? Chronic pain syndrome? 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 VTE Prophylaxis:??DOAC? Patient is ready for discharge today. ??Discussed with case management, apparently patient's mom ismaking arrangements for him to return with home health and needs time till tomorrow.?Case management recommending??to plan discharge for tomorrow. * Margaret BUSTAMANTE, Aubrie: PERFORM, SIGN, VERIFY Event Display: Progress Note Hospital Authored Date: [id number] Patient: DAVID MCQUEEN Age: 37 years Sex: Male : 1985 Associated Diagnoses: None Author: Margaret BUSTAMANTE, Aubrie Findings Problem Related to Alteration in Integumentary : Alteration in Integumentary/new 05/27/2023 2:00 EST Alteration in Integumentary Related to Cellulitis Goals & Outcomes, Integumentary Pt will maintain adequate fluid & nutritional balance, Wound will progress towards healing Interventions, Integumentary Encourage & assist pt to change position frequently, Ensure reliefmodes are on mattress surface & utilized, Increase turning frequency if red or blanched areas appear, Interdisciplinary consults as appropriate, Keep bed as flat as tolerated to reduce shearing, Keep linen clean, dry and wrinkle free, Keep skin clean & dry, Maintain sterile technique with dr saenz changes Goals/Interventions, Integumentary Yes Integumentary, Problem Start 05/24/2023 12:00 Reviewed plan with, Integumentary Patient Patient Progression, Integumentary Pt progressing according to plan . Evaluation Patient is AOx4 and VS are stable. Denies chest pain, SOB, and N/V/D. C/o severe 9/10 pain throughout the shift. Administered prn oxycodone according to the MAR. Patient stated that this helped to decrease his pain level. Abdomen is soft, flat, and nontender with normoactive bowel sounds. Respirations are regular, clear, and unlabored on room air. Please see biophysical assessment for full assessment. Wound care performed on right and left buttocks according to wound care orders. Bed is in lowest locked position with bed alarm on. Instructed on use of call mariee and call mariee is within reach. Encouraged rest to further promote comfort and healing.. Consult note * Tamia Healy RN: PERFORM, SIGN, VERIFY Event Display: Consultation Note Authored Date: Patient: DAVID MCQUEEN Age: 37 years Sex: Male : 1985 Associated Diagnoses: None Author: Tamia Healy RN History of Presenting Problem buttocks Reason for referral Wound: Description Location- L Buttock Etiology- Surgical Wound r/t Hidradenitis resection Wound Bed- defined area of full thickness skin loss with pink red tissue and thin overlying layer of slough Jesi Wound- scar tissue and maceration Edges- defined Drainage- moist Odor- none No fluctuance or induration Goals- antimicrobial wound care, enhanced autolytic debridement of slough, moist wound healing . Wound: Description Location- R Buttock Etiology- Hidradenitis Suppurativa Wound Bed- multiple fistulous tracts with pinpoint openings and surrounding scar tissue and hyperpigmentation Drainage- moderate seropurulent Odor- foul No fluctuance or induration Goals- antimicrobial wound care, absorption of drainage, treatment of symptoms . Wound RN consult entered to assess buttocks wound and make topical recommendations. Patient was admitted for gluteal wounds- patient follows with dermatology outpatient and is s/p excision of the Lbuttock with plastic surgery. He has a PMH of hidradenitis and CVA with right sided defects. Upon arrival to unit I spoke with direct care RN who requested that I not remove the dressings as she had just finished changing them. We reviewed the wound care photos together and I assisted her to chart the wounds. Recommendations shared with direct care RN and [employer] message sent to Dr. Diggs. Recommendations: 1.) Bilateral Buttocks: Cleanse with Vashe solution. Allow to dry. Apply Aquacel AG over open areas(may treat right lateral buttock as one large wound). Cover with Mepilex dressing or DSD. Repeat every other day and PRN for soilage. 2.) Continue use of specialty bed/low air loss mattress 3.) Turn and reposition every 2 hours and PRN 4.) Continue incontinence care as well as moisture management 5.) Continue to offload bony prominences 6.) Float heels 7.) Continue to provide optimal nutritional support 8.) Provide Gaymar cushion to chair when patient OOB Please reconsult wound care RNs for deterioration in wound/skin status Plan Time spent 31-45 minutes Note * Lashawn Nagy RN: PERFORM Event Display: Discharge/Transfer Note Hospital Authored Date: [id number] Nursing Discharge Note Entered On: 05/28/2023 11:37 EST Performed On: 05/28/2023 11:37 EST by Lashawn Nagy RN Nursing Discharge Note 2 Discharge Time : 05/28/2023 12:22 EST Lashawn Nagy RN - 05/28/2023 14:55 EST Discharge Level of Care at Discharge : Homehealth/VNA Discharge VNA/Hospice/Home Care(v001) : [facility] [phone] Patient Left Unit Via : Ambulance Patient Accompanied Off Unit with : Ambulance/Chair Van Personnel Handover Given to Transport Personnel : Yes DC Instructions Provided & Signed by Pt : No Patient Understands D/C Instructions : No Patient Instructions Discharge Signed : No Did Pt have Specialty Bed or Wound Vac : No Yakov BUSTAMANTE, Lashawn - 05/28/2023 11:37 EST * Dylan Mendez MD: PERFORM, MODIFY, MODIFY, MODIFY Event Display: Discharge/Transfer Note Hospital Authored Date: [id number] Patient: ??DAVID MCQUEEN ? Age:??37 Years?Sex:??Male?:??1985?? Patient Information Discharge Location: W3 Primary Care Physician: Niki Li MD Admit Date/Time: 05/22/23 22:45 Discharge Disposition Discharge Disposition: Home with Home Health Discharge Diagnosis Hidradenitis suppurativa (L73.2) Fever (R50.9) History of ischemic left MCA stroke (Z86.73) Iron deficiency anemia (D50.9) Thrombocytosis (D75.839) Chronic pain syndrome (G89.4) Mural thrombus of cardiac apex (I51.3) ?? _ Discharge Medications Acitretin (acitretin 10 mg oral capsule)?TAKE 1 CAPSULE EVERY OTHER DAY FOR NEXT 2 WEEKS THEN 1 CAPSULE DAILY Amlodipine (amLODIPine 5 mg oral tablet)?1?tab(s)?By Mouth?Daily?for 30?Days Amoxicillin-Clavulanate (amoxicillin-clavulanate 875 mg-125 mg oral tablet)?875?Milligram?By Mouth?2 times a day apixaban (Eliquis 5 mg oral tablet)?1?tab(s)?By Mouth?2 [...] M25.373Length of need: 99 monthsNumber to fax to:[phone] Durable Medical Equipment (3 in 1 commode)?See Instructions?use as needed to prevent fall. Diagnosis: Stroke, Impaired Mobility. ICD10 I63.9, ICDR26.2.KRISSY 99for PCP Tanja Fuchs to [facility] Durable Medical Equipment (transfer tub bench)?See Instructions?use as needed to prevent fall. Diagnosis: Stroke, Impaired Mobility. ICD10 I63.9, ICDR26.2.KRISSY 99for PCP Tanja Fuchs to [facility] Durable Medical Equipment (large gauze)?See Instructions?L73.2 HS Durable Medical Equipment (Diapers, adult extra Large)?See Instructions?2 per dayChronic drainage, bleeding of buttocks lesions due to severe hidradenitis L73.2Functional Incontinence R39.81 Please fax to [facility] Durable Medical Equipment (CHUX)?See Instructions?2 per dayFunctional Incontinence R39.81 Durable Medical Equipment (Hospital bed)?See Instructions?Use as needed daily Ferrous Sulfate (ferrous sulfate 325 mg oral tablet)?TAKE 1 TABLET BY MOUTH EVERY DAY NEEDED Fluoxetine (FLUoxetine 20 mg oral capsule)?1?capsule?By Mouth?Daily Folic Acid (folic acid 1 mg oral tablet)?TAKE 1 TABLET BY MOUTH EVERY DAY THAT YOU ARE NOT TAKING METHOTREXATE Gabapentin (gabapentin 300 mg oral capsule)?300?Milligram?1?capsule?By Mouth?3 times a day Hydroxyurea (hydroxyurea 500 mg oral capsule)?1?capsule?500?Milligram?By Mouth?Daily Omeprazole (omeprazole 40 mg oral enteric coated capsule)?1?capsule?By Mouth?Daily Oxycodone (oxyCODONE 5 mg oral tablet)?10?Milligram?2?tablet?By Mouth?Every 6 hours?as needed?Take 1-2 tablets depending on severity of pain upto 4 times a day.?Pain , Severe ? Future Appointments Saturday 11:00 AM EST ?? With: Litzy Hunt DO Where: [facility] [address] [place] [address]- Status: Pending Hospital Course ?? 37-year-old man with a history of left ICA stroke with residual sided weakness, cardiac thrombus, severe hidradenitis suppurativa status post excision of left buttock plastic surgery, followed by [facility] as outpatient who presented with right-sided drainage, buttock pain.? Patient was discharged from [facility] in the fall 2022, discharged to a rehab facility in [facility].?? His mother took him out of that rehab 2 days ago AMA, she is not able to take care of him at home however. In the ED Tmax was 100.6. ??WBC count of 10.2, hemoglobin of 7.1 (baseline around 9-2) platelet count of 981.?? Normal electrolytes. CT of his abdomen and pelvis showed persistent bilateral superficial soft tissue thickening measuring up to 1.4 cm on the right, 0.3 cm on the left.?? No drainable c ollection.?? Worsening lymphadenopathy likely reactive. ??Patient was started on vancomycin??for cellulitis and admitted for further management. ?? wounds didn't look grossly infected.??patient was treated with empiric antibiotics, has been felling well for last 3 days and eager to go home. reported morphine was not working for him at all and asked for oxycodone insted of iv morphine . with po oxy patient didn't complain of?? nay further pain . D/w patients mother who made arrangements for patient to return home with?? home health. ? Objective Assessment and Plan ? Hidradenitis suppurativa Per mother patient has upcoming appointment at [facility] to discuss surgical options, continue would care while in house and will set up VNA to help family with wound care upon discharge is on doxycycline 100 mg bid? Fever, cellulitis- resolved Has one fever spike in ER without recurrence, hemodynamically stable, no other evidence of sepsis, wound picture reviewed no significant discharge, purulence, induration or other evidence of acute inflammation, UA negative, will obtain CXR to complete the workup but clinically low suspicion for pneumonia, continue vancomycin but can transition to PO abx once afebrile and culture remains negative for 48 hours to complete a course of mild cellulitis Blood cultures no growth till date On vancomycin>>??Augmentin ?? History of ischemic left MCA stroke?? 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 continue baclofen for spasm on eliquis ?? Anemia of chronic disease with probable ??Iron deficiency Normal B12 FA Iron low But Ferritin low??Normal, TIBC?? Normal?? Continue Po iron , follow up with PCP for Monitoring and further rx. ?? Thrombocytosis unclear etiology recently started on Hydrea will continue and follow up with outpatient provider ?? Chronic pain syndrome? 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 a plan that will work for the patient.? VTE Prophylaxis:??DOAC? Discussed discharge instructions with mother through residential aide ID :[id number] ? Measurements?? Height: 193 cm (05/28/23) Weight: 89.6 kg (05/24/23) Dry Weight: 89.6 kg (05/24/23) Body Mass Index: 24.05 kg/m2 (05/24/23) ? Vital Signs?? Temperature: 97.7 DegF (05/28/23 07:00:00) Temperature Route: Oral (05/28/23 07:00:00) Pulse Rate: 58 bpm (05/28/23 07:00:00) Respiratory Rate: 16 br/min (05/28/23 07:00:00) Systolic Blood Pressure: 103 mm Hg (05/28/23 07:00:00) Diastolic Blood Pressure: 66 mm Hg (05/28/23 07:00:00) Blood pressure sites: Arm, right (05/28/23 07:00:00) Mean Arterial Pressure: 75 mm Hg (05/28/23 04:15:00) Pulse Pressure: 37 mm Hg (05/28/23 07:00:00) Oxygen Saturation: 97 % (05/28/23 07:00:00) Mode of Delivery (Oxygen): Room air (05/28/23 07:00:00) Early Warning Score: 2 (05/28/23 08:30:09) ? . Physical Exam pain well controlled , eager to go home Constitutional: Alert, in no acute distress. Mental Status: Oriented to person, and place Respiratory: Clear to auscultation No wheezing, rales or rhonchi. Cardiovascular: S1 S2 regular. Gastrointestinal: Abdomen soft, non-tender, non-distended. Neurologic: . No focal neurological deficits Moves all extremities spontaneously. Musculoskeletal: No Leg edema?? skin: open wound on left buttock multiple draining spots or rt buttock 2/2 hidradenitis Pending Results Add On Lab Order ordered on 05/24/2023 Blood Culture ordered on 05/23/2023 Blood Culture #2 ordered on 05/23/2023 Creatinine ordered on 05/27/2023 Patient Education Titles Hidradenitis Suppurativa (Antibiotics Only)?? Follow-Up Appointments Added Follow Up ?Time Frame ?Comments Guillermo PAGAN, Niki?1-2 day: call to discuss follow up visit Post Discharge Care Discharge ?05/28/23 9:44:00 EST Home Health Face to Face *Denotes mandatory burton ?? *I certify that this patient is under my care and that I or an allowed non- physician working with me had a face to face encounter with the patient on this date:??05/28/2023 09:45 ?? *The encounter with the patient was in whole, or in part, for the following medical condition, which is the primary diagnosis(es) for home health care:??Hidradenitis suppurativa (L73.2) Fever (R50.9) History of ischemic left MCA stroke (Z86.73) Iron deficiency anemia (D50.9) Thrombocytosis (D75.839) Chronic pain syndrome (G89.4) Mural thrombus of cardiac apex (I51.3) ? *Select the indications for the discipline/s that are being arranged for this patient. Nursing (select all that apply): [_] None [x_] Medication management (reconciliation, teaching)?? [_x] Chronic disease management?? [_x] Wound care and treatment?? [_] Home safety evaluation [_] Administer SQ/IM/IV medications?? [_] Cath care?? [_] Drain care?? [_] Trach or GT care?? Other _ Occupation Therapy (select all that apply): [_] None [_] ADL Management [_] Fall prevention training [_] Energy conservation [_] Cognitive training Other _ Physical Therapy (select all that apply): [_] None [x_] Functional mobility training [_] Home exercise program to strengthen [x_] Increase ROM?? [_] Falls prevention training [_] Home maintenance program for chronic disease Other _ Speech Therapy (select all that apply): [_] None [_] Swallow evaluation and training [_] Speech and language training [_] Cognitive training to process, organize, and/or recall information Other _ ? *Homebound due to (select all that apply): [_x] Inability to leave home without assistance/supervision [_] Inability to ambulate without assistance [_] Pain [x_] Decreased strength and endurance [x_] Unsteady gait [_] Severe SOB and fatigue [_] Impaired transfers [x_] Inability to negotiate stairs [_] Limited weight bearing [_] Mental status change? *Physician Signature: _dylan Mendez? *By signing this, I certify that I have personally evaluated the patient and agree with the findings and recommendations as documented above. ? lthFTF Results Discharge Labs BLOOD BANK Blood Type A Positive ()?? 05/24/2023 21:40 Antibody Screen Negative ()?? 05/24/2023 21:40 ?? BLOOD COUNT & DIFF WBC 9.3 k/mm3 ()?? 05/24/2023 06:46 RBC 3.03 m/mm3 (Low)?? 05/24/2023 06:46 Hgb 7.1 Gm/dL (Low)?? 05/25/2023 05:47 Hct 24.5 % (Low)?? 05/25/2023 05:47 MCV 79.2 femtoliters (Low)?? 05/24/2023 06:46 MCH 23.4 pg (Low)?? 05/24/2023 06:46 MCHC 29.6 g/dL (Low)?? 05/24/2023 06:46 Platelet Count 910 k/mm3 (High)?? 05/24/2023 06:46 RDW-SD 57.1 femtoliters (High)?? 05/24/2023 06:46 MPV 7.8 femtoliters (Low)?? 05/24/2023 06:46 Nucleated RBC (Automated) 0.0 #/100 WBC'S ()?? 05/24/2023 06:46 Abs. NRBC 0.0 k/mm3 ()?? 05/24/2023 06:46 Abs. Neut 6.6 k/mm3 ()?? 05/24/2023 06:46 Abs. Lymph 1.8 k/mm3 ()?? 05/24/2023 06:46 Abs. [place] 0.8 k/mm3 ()?? 05/24/2023 06:46 Abs. Eo 0.1 k/mm3 ()?? 05/24/2023 06:46 Abs. Baso 0.0 k/mm3 ()?? 05/24/2023 06:46 Neut % 70.4 % ()?? 05/24/2023 06:46 Lymph % 19.3 % ()?? 05/24/2023 06:46 [place] % 8.5 % ()?? 05/24/2023 06:46 Eos % 1.0 % ()?? 05/24/2023 06:46 Baso % 0.4 % ()?? 05/24/2023 06:46 Imm Gran 0.4 % ()?? 05/24/2023 06:46 Abs. Imm Gran 0.0 k/mm3 ()?? 05/24/2023 06:46 ?? CHEM GENERAL Sodium 137 mmol/L ()?? 05/24/2023 06:47 Potassium 4.4 mmol/L ()?? 05/24/2023 06:47 Chloride 101 mmol/L ()?? 05/24/2023 06:47 Bicarbonate Level 29 mmol/L ()?? 05/24/2023 06:47 Anion Gap 7 ()?? 05/24/2023 06:47 Glucose Level 102 mg/dL (High)?? 05/23/2023 00:35 BUN 12 mg/dL ()?? 05/23/2023 00:35 Creatinine-Blood 0.8 mg/dL ()?? 05/28/2023 07:06 Estimated GFR Creatinine 118 ML/MIN/1.73 M2 ()?? 05/28/2023 07:06 Calcium 8.6 mg/dL ()?? 05/23/2023 00:35 Magnesium 2.2 mg/dL ()?? 05/24/2023 06:47 Protein, Total 7.3 Gm/dL ()?? 05/23/2023 00:35 Albumin 3.0 Gm/dL (Low)?? 05/23/2023 00:35 AG Ratio 0.7 ()?? 05/23/2023 00:35 Alkaline Phosphatase 92 units/L ()?? 05/23/2023 00:35 AST (SGOT) 6 units/L ()?? 05/24/2023 06:47 ALT (SGPT) 7 units/L ()?? 05/24/2023 06:47 Bilirubin, Total <0.2 mg/dL ()?? 05/23/2023 00:35 Vitamin B12 Level 384 pg/mL ()?? 05/24/2023 06:47 Folic Acid Level 31.5 ng/mL ()?? 05/24/2023 06:47 Iron Level 16 mcg/dL (Low)?? 05/24/2023 06:47 Iron Binding Capacity, Unsaturated 202 mcg/dL ()?? 05/24/2023 06:47 Iron Binding Capacity, Estimated Total 218 mcg/dL ()?? 05/24/2023 06:47 % Iron Saturation 7 % (Low)?? 05/24/2023 06:47 Ferritin Level 39 ng/mL ()?? 05/24/2023 06:47 ? HEME OTHER Hold Blue Top SPECIMEN DISCARDED AFTER 4 HOURS. ()?? 05/23/2023 00:35 ? MISC. CHEMISTRY Hold Green Top SPECIMEN DISCARDED AFTER 1 WEEK ()?? 05/23/2023 00:35 Hold Gel Top SPECIMEN DISCARDED AFTER 1 WEEK ()?? 05/25/2023 05:47 Hold Sutton Top SPECIMEN DISCARDED AFTER 1 WEEK ()?? 05/23/2023 00:35 ? TOXICOLOGY/TDM Vancomycin Level, Trough 10.0 mg/L ()?? 05/27/2023 08:50 ? URINE OTHER Est Creatinine Clearance 156.66 mL/min ()?? 05/24/2023 08:24 ? VIROLOGY Influenza A PCR NEGATIVE ()?? 05/23/2023 00:27 Influenza B PCR NEGATIVE ()?? 05/23/2023 00:27 RSV PCR NEGATIVE ()?? 05/23/2023 00:27 COVID-19 PCR Specimen Source NASAL ()?? 05/23/2023 00:27 COVID-19 PCR Result NEGATIVE ()?? 05/23/2023 00:27 ? Microbiology ?? COVID-19, RSV, and Flu A/B, Rapid PCR?? Completed?? Source: Nasal Body Site: Nose Collected Dt/Tm: 05/23/2023 00:27 Last Updated Dt/Tm: 05/23/2023 01:34 ? 40 _ minutes spent on discharge * Yakov BUSTAMANTE Lashawn: PERFORM Event Display: Patient Education/Instruction Authored Date: [id number] Inpatient Adult Discharge Instructions [place] [id number] Name: DAVID MCQUEEN : 1985 Visit: 05/22/2023 22:45:00 Current Date: 05/28/2023 11:40 Account: [id number] Inpatient Adult Discharge Instructions We would like [...] and their families. Surveys are administered by [employer] ?? If further treatment with your primary care physician or another doctor is recommended, it is important for you to keep the appointment. Call your primary care physician or return to the Emergency Department immediately if your condition worsens, fails to improve, or new symptoms develop. If you need to find a doctor, you can call [facility] for a referral at [phone] or toll free at [phone]) or log in to [email or web address].. ?? [facility], in keeping with [facility] guidance, no longer requires face masks for [...] a health care boyd of your choosing. [employer] is a website that allows you to securely view your medical information including your hospital discharge summary, office visit summaries, medications and follow-up visits. You can also request appointments, renew medications, and request access to your medical information using a health care boyd of your choosing, or just ask a question. You can enroll at [email or web address] or register during your next office visit. You have been discharged from [facility], Patient Care Unit: W3. If you have any questions regarding these instructions after you leave, please call us and we will be happy to assist you. [facility] Your Care Team Attending Physician Dylan Mendez MD Discharging Providers Dylan Mendez MD Reason for Admission From home - hx of stroke 3 yrs ago and bedbound and R side defcits, reports gluteal wound with 10/10 pain. Unsure if follows up with wound care per ems. Your Diagnosis Hidradenitis suppurativa Fever History of ischemic left MCA stroke Iron deficiency anemia Thrombocytosis Chronic pain syndrome Mural thrombus of cardiac apex Tests Performed Below is a partial list of the tests performed during your hospitalization. You may have had other tests and procedures not included in this list. Please discuss all test results with your provider. ALT AST CBC w/ Differential Comprehensive Metabolic Panel COVID-19, RSV, and Flu A/B, Rapid PCR Creatinine Electrolytes FERRITIN FOLIC ACID H + H HOLD BLUE TUBE HOLD GEL TUBE HOLD SUTTON TUBE HOLD GREEN TUBE IRON & TIBC Magnesium Level Type and Screen Vancomycin Trough VITAMIN B12 CT Pelvis W/ Contrast CXR Portable Primary Care Provider Niki Li MD Advance Directive Health Care Proxy on File Yes - Health Care Proxy Discharge Vitals Temperature: 97.7 DegF Height: 193 cm Pulse Rate: 58 bpm Weight: 89.6 kg Respiratory Rate: 18 br/min Body Mass Index: 24.05 kg/m2 Respiratory Rate: 20 br/min Body surface area: 2.19 Systolic Blood Pressure: 103 mm Hg ?? Diastolic Blood Pressure: 66 mm Hg ?? Oxygen Saturation: 97 % ?? Studies Pending All tests and labs ordered during this hospital stay have been completed unless listed below. Please discuss all pending results with your provider listed above in these instructions. ?? Add On Lab Order (Lab Add On Order) Blood Culture Blood Culture #2 Creatinine What to do next Instructions From Your Doctor Discharge Orders Scheduled Follow-Up Appointments Saturday 11:00 AM EST ?? With: Litzy Hunt DO Where: [place] [address]- Status: Pending You Need to Schedule the Following Appointments Follow Up with??Niki Li MD When:??Within 1-2 day: call to discuss follow up visit Where: ?? Discharge Medications MCQUEENDAVID LAU :1985 Visit Date:05/22/2023 Medications: Please continue your medications until treatment is completed or stopped by your provider. Medications not listed below should be discontinued. Discuss any questions related to medications with your provider. What How Much When Why Instructions Next Dose New Amoxicillin-Clavulanate (amoxicillin-clavulanate 875 mg-125 mg oral tablet) 875 Milligram Oral Twice a day Pickup at [facility] 3 9pm 05/28 New Oxycodone (oxyCODONE 5 mg oral tablet) 2 tab(s) Oral Every 6 hours as needed for Pain , Severe Take 1-2 tablets depending on severity of pain upto 4 times a day. ?? Pickup at [facility] 3 as needed Changed Gabapentin (gabapentin 300 mg oral capsule) 1 capsule Oral 3 times a day Pickup at [facility]/pharmacy #[id number] 3pm 05/28 Unchanged Acitretin (acitretin 10 mg oral capsule) TAKE 1 CAPSULE EVERY OTHER DAY FOR NEXT 2 WEEKS THEN 1 CAPSULE DAILY ?? see instructions Unchanged Amlodipine (amLODIPine 5 mg oral tablet) 1 tab(s) Oral Daily Duration: 30 Days 05/29 Unchanged apixaban (Eliquis 5 mg oral tablet) 1 tab(s) Oral Twice a day 05/28 Unchanged Baclofen (baclofen 20 mg oral tablet) 1 tab(s) Oral 4 times a day 2pm 05/28 Unchanged Clindamycin Topical (clindamycin 1% topical gel) 1 boyd Topically Twice a day 05/28 Unchanged Doxycycline (doxycycline hyclate 100 mg oral enteric coated tablet) 1 tab(s) Oral Twice a day Duration: 10 week(s) 05/28 Unchanged Duloxetine (duloxetine 30 mg oral enteric coated capsule) 1 capsule Oral Daily 05/29 Unchanged Durable Medical Equipment (3 in 1 commode) See instructions Stroke Difficulty walking use as needed to prevent fall. Diagnosis: Stroke, Impaired Mobility. ICD10 I63.9, ICDR26.2. KRISSY 99 for PCP Jacobo Fuchs ?? Fax to Steve ?? see instructions Unchanged Durable Medical Equipment (CHUX) See instructions Functional incontinence 2 per day Functional Incontinence R39.81 ?? see instructions Unchanged Durable Medical Equipment (Diapers, adult extra Large) See instructions Hidradenitis suppurativa Functional incontinence 2 per day Chronic drainage, bleeding of buttocks lesions due to severe hidradenitis L73.2 Functional Incontinence R39.81 ?? Please fax to Steve ?? see instructions Unchanged Durable Medical Equipment (Hospital bed) See instructions History of stroke Right sided weakness Spasticity due to old stroke Hydradenitis Use as needed daily ?? as needed Unchanged Durable Medical Equipment (large gauze) See instructions L73.2 HS ?? see instructions Unchanged Durable Medical Equipment (Right ankle & foot orthosis) See instructions Weakness of right leg Gait instability Instability of ankle Please dispense 1 right ankle and foot othosis Dx: R29.898, R26.81, M25.373 Length of need: 99 months Number to fax to: [phone] ?? see instructions Unchanged Durable Medical Equipment (transfer tub bench) See instructions Stroke Difficulty walking use as needed to prevent fall. Diagnosis: Stroke, Impaired Mobility. ICD10 I63.9, ICDR26.2. KRISSY 99 for PCP Jacobo Fuchs ?? Fax to Steve ?? see instructions Unchanged Durable Medical Equipment (walker with platform attached) See instructions History of stroke Right sided weakness Spasticity due to old stroke Please dispense 1 (one) walker with attached platform ?? Ht: 187.6cm Wt: 101.4kg Dx: History of stroke - Z86.73, Right-sided weakness - R53.1,Spasticity due to old stroke - I69.398 ?? Length of need: 99months ?? see instructions Unchanged Ferrous Sulfate (ferrous sulfate 325 mg oral tablet) TAKE 1 TABLET BY MOUTH EVERY DAY NEEDED ?? as needed Unchanged Fluoxetine (FLUoxetine 20 mg oral capsule) 1 capsule Oral Daily 05/29 Unchanged Folic Acid (folic acid 1 mg oral tablet) TAKE 1 TABLET BY MOUTH EVERY DAY THAT YOU ARE NOT TAKING METHOTREXATE ?? see instructions Unchanged Hydroxyurea (hydroxyurea 500 mg oral capsule) 1 capsule Oral Daily 05/29 Unchanged Omeprazole (omeprazole 40 mg oral enteric coated capsule) 1 capsule Oral Daily 05/29 Pharmacy Information [facility]/pharmacy #[id number]: [address] [place], [place] [id number] [phone] [facility]: [address], [place] [id number] [phone] ?? What How Much When Why Comments Stop Taking Methotrexate (methotrexate 2.5 mg oral tablet) TAKE 4 TABLETS (10 MG TOTAL) BY MOUTH ONCE A WEEK ?? Stop Taking Morphine (morphine 15 mg oral tablet, immediate release) 1 tab(s) Oral Every 6 hours as needed for as needed for pain Duration: 30 Days Stop Taking onabotulinumtoxinA (Botox 100 units injection) See instructions 400 units total for MD to inject. ?? Stop Taking Scopolamine (scopolamine 1 mg/ 72 hr transdermal film, extended release) 1 Film Topically Every 72 hours Stroke Drooling Apply to right mastoid bone ?? Stop Taking Scopolamine (scopolamine 1 mg/ 72 hr transdermal film, extended release) See instructions APPLY 1 PATCH TO RIGHT MASTOID BONE EVERY 72 HOURS ?? Stop Taking Tizanidine (tiZANidine 4 mg oral tablet) See instructions Start by taking half a tablet By Mouth Daily 3x/ day and increase as per written instructions ?? Test Results Below is a partial list of the most recent Laboratory test results done prior to this discharge. You may have had other tests and procedures not included in this list. Please discuss all test resultswith your provider. Est Creatinine Clearance - 156.66 mL/min (05/24/2023) ALT (05/24/2023) ???ALT (SGPT) - 7 units/L AST (05/24/2023) ???AST (SGOT) - 6 units/L CBC w/ Differential (05/24/2023) ???WBC - 9.3 k/mm3???RBC - 3.03 m/mm3???Hgb - 7.1 Gm/dL???Hct - 24.0 %???MCV - 79.2 femtoliters???MCH - 23.4 pg???MCHC - 29.6 g/dL???Platelet Count - 910 k/mm3???RDW-SD - 57.1 femtoliters???MPV - 7.8femtoliters???Nucleated RBC (Automated) - 0.0 #/100 WBC'S???Abs. NRBC - 0.0 k/mm3???Abs. Neut - 6.6 k/mm3???Abs. Lymph - 1.8 k/mm3???Abs. [place] - 0.8 k/mm3???Abs. Eo - 0.1 k/mm3???Abs. Baso - 0.0 k/mm3???Neut % - 70.4 %???Lymph % - 19.3 %???[place] % - 8.5 %???Eos % - 1.0 %???Baso % - 0.4 %???Imm Gran - 0.4 %???Abs. Imm Gran - 0.0 k/mm3 Comprehensive Metabolic Panel (05/23/2023) ???Sodium - 138 mmol/L???Potassium - 4.9 mmol/L???Chloride - 101 mmol/L???Bicarbonate Level - 28 mmol/L???Anion Gap - 9???Glucose Level - 102 mg/dL???BUN - 12 mg/dL???Creatinine-Blood - 1.0 mg/dL???Estimated GFR Creatinine - 105 ML/MIN/1.73 M2???Calcium - 8.6 mg/dL???Protein, Total - 7.3 Gm/dL???Alb umin - 3.0 Gm/dL???AG Ratio - 0.7???Alkaline Phosphatase - 92 units/L???AST (SGOT) - 19 units/L???ALT (SGPT) - 7 units/L? ?Bilirubin, Total - <0.2 mg/dL COVID-19, RSV, and Flu A/B, Rapid PCR (05/23/2023) ???Influenza A PCR - NEGATIVE???Influenza B PCR - NEGATIVE???RSV PCR - NEGATIVE???COVID-19 PCR Specimen Source - NASAL???COVID-19 PCR Result - NEGATIVE Creatinine (05/28/2023) ???Creatinine-Blood - 0.8 mg/dL???Estimated GFR Creatinine - 118 ML/MIN/1.73 M2 Electrolytes (05/24/2023) ???Sodium - 137 mmol/L???Potassium - 4.4 mmol/L???Chloride - 101 mmol/L???Bicarbonate Level - 29 mmol/L???Anion Gap - 7 FERRITIN (05/24/2023) ???Ferritin Level - 39 ng/mL FOLIC ACID (05/24/2023) ???Folic Acid Level - 31.5 ng/mL H + H (05/25/2023) ???Hgb - 7.1 Gm/dL???Hct - 24.5 % HOLD BLUE TUBE (05/23/2023) ???Hold Blue Top - SPECIMEN DISCARDED AFTER 4 HOURS. HOLD GEL TUBE (05/25/2023) ???Hold Gel Top - SPECIMEN DISCARDED AFTER 1 WEEK HOLD SUTTON TUBE (05/23/2023) ???Hold Sutton Top - SPECIMEN DISCARDED AFTER 1 WEEK HOLD GREEN TUBE (05/23/2023) ???Hold Green Top - SPECIMEN DISCARDED AFTER 1 WEEK IRON & TIBC (05/24/2023) ???Iron Level - 16 mcg/dL???Iron Binding Capacity, Unsaturated - 202 mcg/dL???Iron Binding Capacity, Estimated Total - 218 mcg/dL???% Iron Saturation - 7 % Magnesium Level (05/24/2023) ???Magnesium - 2.2 mg/dL Type and Screen (05/24/2023) ???Blood Type - A Positive???Antibody Screen - Negative Vancomycin Trough (05/27/2023) ???Vancomycin Level, Trough - 10.0 mg/L VITAMIN B12 (05/24/2023) ???Vitamin B12 Level - 384 pg/mL Allergies (NKA means No Known Allergies) NKA Problems Active Problems??(15) [facility] Care Management, Brewmaster Carmen Elizabeth [phone]?? Chronic ischemic left ICA stroke?? Controlled substance agreement signed 10/16/22?? Depression?? GERD (gastroesophageal reflux disease)?? Hidradenitis suppurativa?? Hypertension?? Insomnia?? Iron deficiency anemia?? Mural thrombus of cardiac apex?? Peripheral neuropathy?? Spasticity?? Therapeutic drug monitoring?? Tobacco dependence?? Wound of buttock?? Education Materials Below is the list of Educational Leaflet Providered with your Discharge Instructions. Anemia?? Zones Cellulitis?? Hidradenitis Suppurativa (Antibiotics Only)?? Valuables and Belongings I fully understand and agree that [facility] accepts no responsibility for all my personal [...] witness Date for Pt to Sign Valuables/Belongings: 05/23/23 08:57:00 ?? Other Discharge Information ?? Wound Assessment?? Wound Assessment?? Wound Type I: Pressure/partial thickness ?? Case Management Discharge Plan?? Discharge Plan?? Discharge Agency Information?? Discharge Level of Care at Discharge: Homehealth/VNA Name of Agency #1: [facility] Discharge Transportation Arranged: [facility] [phone] Agency Catalogue Clerk #1: Intake Mode of Transportation Arranged: Ambulance Service Categories #1: Physical Therapy, Usp Discharge VNA/Hospice/Home Care: [facility] [phone] Service Comments #1: You are being discharged to home today with visiting nurse services for physical therapy and jail at home. If you do not hear from them 24 hours after discharge, please call them. ?? Pulmonary Rehab Status?? Pulmonary Rehab Discharge Status?? Respiratory Rate: 18 br/min Respiratory Rate: 20 br/min ? Common Emergency Awareness Tips IS [...] are strongly encouraged to quit. Please call [facility] 3TEN8 Link at [phone] or [phone] ([phone]) or log in to [email or web address] for referrals to smoking cessation programs. ?? 724 Suicide & Crisis Lifeline is available 03/12 if you or someone you know needs to find a reason to keep living. By calling 900 you'll be connected to a skilled, trained counselor at a crisis center in your area. INPATIENT DISCHARGE INSTRUCTIONS SIGNATURE PAGE DAVID MCQUEEN Location:[facility] Registration Date and Time:05/22/2023 22:45 EST Primary Care Physician: Niki Li MD, Attending Physician: Dylan Mendez MD, DAVID SALMERON, have received the above patient education materials/instructions and have verbalized understanding. If ambulance or transport services are being used I further acknowledge being given a choice of service. ?? If you need to contact me, please call me at this number: . Patient/Senior Buyer Name: Patient/Senior Buyer Signature: Relationship to Patient: Witness Name/Signature: Date: * Lashawn Nagy RN: PERFORM Event Display: Patient Education Leaflets Authored Date: [id number] Anemia ?? Anemia - Video Anemia means a low level of hemoglobin in the blood. It can be brought on by chronic disease, including inflammatory, infectious, or malignant conditions. This video gives information on the chronic diseases linked to anemia and recommended treatment. To view the video go to this web address: [email or web address] Or, scan this QR code with your smart phone Last Reviewed Date: 2020 ?? The [employer]. All rights reserved. This information is not intended as a substitute for professional medical care. Always follow your healthcare professional's instructions. ?? * Lashawn Nagy RN: PERFORM Event Display: Patient Education Leaflets Authored Date: [id number] Zones Cellulitis ?? 349 CELLULITIS ZONES EVERY [...] area. ??? Increasing pain or swelling. ? * Mariana Santos RN: PERFORM, SIGN, VERIFY Event Display: Case Management Discharge Plan Authored Date: [id number] Patient: DAVID MCQUEEN Age: 37 years Sex: Male : 1985 Associated Diagnoses: None Author: Mariana Santos RN Discharge Plan Case Management Discharge Plan : Case Management Discharge Plan Data 05/27/2023 12:07 EST Discharge Level of Care at Discharge Home/Custodial/Foster Care Discharge VNA/Hospice/Home Care [facility] [phone] Name of Agency #1 [facility] Service Categories #1 Wound Care * Han Phillips MD: PERFORM Event Display: Patient Education Leaflets Authored Date: [id number] Hidradenitis Suppurativa (Antibiotics Only) ?? [id number] Hidradenitis Suppurativa (Antibiotics Only) Hidradenitis suppurativa is [...] if it cools off. Or you can newsstand vendor the shower and direct the warm spray onto the area. ??? Gently wash the area with antibacterialsoap. Don't scrub it. ??? Use??tnds-uoc-axoitpd medicine to control pain and swelling, unless [...] bigger ?? Last Reviewed Date: 2021 ?? [id number] The [employer]. All rights reserved. This information is not intended as a substitute for professional medical care. Always follow your healthcare professional's instructions. ?? Patient Care team information Care Team Personnel Name: Areli Pittman RN Position: [facility] RN W/OE and Tasks Member Role: Primary Care Nurse Name: Ally Boyd RN Position: [facility] RN Member Role: Primary Care Nurse Name: Niki Li MD Position: [facility] Physician - Primary Care Member Role: PCP Address: Address: [address] [place] [id number] Name: Axel Savage RN Position: [facility] RN Member Role: Primary Care Nurse Name: Filemon King RN Position: [facility] RN Member Role: Primary Care Nurse Name: Lashawn Nagy RN Position: [facility] RN Member Role: Primary Care Nurse Name: Glenys Fox RN Position: [facility] RN Member Role: Primary Care Nurse Name: Dewayne MATA Attending Position: [facility] ED Medicine MD Name: Salome Pollock RN Position: [facility] ED RN W/OE and Tasks Member Role: Patient Care Provider Name: Chiara Padron Position: [facility] ED OA Charge Member Role: ED Associate Name: Paola Russell Position: [facility] ED TA [facility] Member Role: [facility] Home Health Care Team Related Persons Name: JUHIKAMILLE WHEELERA Address: home [address] [place] [address] Name: AISLINN DE LA PAZ Address: home [address] [place] [address]
--- OUTSIDE RECORDS SUMMARY | 2024-01-21 19:35 | XMS_ITS | Continuity of Care Document ---
Author Organization [facility] Address [address] [place] [address] [address] [place] [address]- Care Team Providers Care Foot Caster Name Role Phone Genoveva PAGAN, Derek Primary Care Physician Encounter [facility] Date(s): 08/29/23 - 10/10/23 [facility] [address] [place] [id number] Attending Physician: Ed Mustafa MD Referring Physician: Micheal Oates MD Allergies, Adverse Reactions, Alerts No Known Allergies Immunizations Given and Recorded Vaccine Date Status Refusal Reason influenza virus vaccine, inactivated 05/18/22 Give n tetanus/diphtheria/pertussis, acel(Tdap) 09/13/19 Recorded Medications amLODIPine 5 mg oral tablet 5 mg, 1, tablet, By Mouth, Daily, # 30 tablet, Refills 0, Tot. Refills 0, Maintenance, 06/17/23 8:53:00 EST, Route to Pharmacy Electronically, [facility], Partial fill upon [...] 08/06/23 9:00:00 EDT, Route to Pharmacy Electronically, [facility]/pharmacy #[id number], 182, cm, 07/26/23 9:16:00 EDT, Height, 89, kg, 07/03/23 11:22:00 EST, Dry Weight Start Date: 08/06/23 Status: Ordered docusate sodium 100 mg oral capsule 1 capsule, By Mouth, 2 times a day, # 60 capsule, 11 Refills, Maintenance, 09/03/23 17:44:00 EDT, [facility] STORE [id number], 193, cm, 09/03/23 14:09:00 EDT, Height, 91.4, kg, 08/30/23 12:03:00 EDT, Dry Weight Start Date: 09/03/23 Status: Ordered duloxetine 30 mg oral enteric coated capsule 1 capsule = 30 mg, By Mouth, Daily, TAKE 1 CAPSULE BY MOUTH EVERY DAY, # 30 capsule, 6 Refills, Maintenance, 09/03/23 17:47:00 EDT, Capsule, [facility]/pharmacy #[id number], Partial fill upon patient request [...] tablet, 11 Refills, Maintenance, 08/12/23 13:51:00EDT, Tablet, [facility]/pharmacy #[id number], Partial fill upon patient request if the prescription is for a schedule II opioid drug., 182, cm, 07/26/23 9:16:00 EDT... Start Date: 08/12/23 Status: Ordered hydroxyurea 500 mg oral capsule = 500 mg, By Mouth, Daily, for 30 days, # 30 capsule, 2 Refills, Acute 10/18/23 14:36:00 EDT, 07/20/23 14:36:00 EST, Capsule, [facility]/pharmacy #[id number], Partial fill upon patient request [...] 08/23/23 15:54:00 EDT, [facility] Start Date: 08/23/23 Status: Ordered oxyCODONE 30 mg IR tablet 1 tablet = 30 mg, By Mouth, Every 12 hours, PRN as needed for pain, for 4 days, # 8 tablet, 0 Refills, Acute 10/12/23 12:47:00 EDT, 10/08/23 12:47:00 EDT, Tablet, [facility], Partial fill upon [...] 08/12/23 13:51:00 EDT, Route to Pharmacy Electronically, [facility]/pharmacy #[id number], Partial fill upon patient request if the [...] 0 Refills, Maintenance, 07/16/23 10:05:00 EST, Tablet, [facility], Partial fill upon patient request [...] apex Confirmed Active [facility] CP Care Management, Trial Judge Carmen Elizabeth [phone] Confirmed Active Therapeutic drug monitoring Confirmed Active Peripheral neuropathy Confirmed Active Right spastic hemiparesis Confirmed Active Spasticity Confirmed Active Tobacco dependence Confirmed Active Social History Social History Type Response Smoking Status 5-9 cigarettes (betw een 05/16 to 1/2 pack)/day in last 30 days entered on: 05/16/22 Sex Patient Care team information Care Team Personnel Name: Anu Lipscomb Position: [facility] RN Member Role: Primary Care Nurse Name: Jeanne Bryant RN Position: S RN Member Role: Primary Care Nurse Name: Mitch Guido RN Position: S RN Member Role: Primary Care Nurse Name: Areli Pittman RN Position: [facility] ED RN W/OE and Tasks Member Role: Primary Care Nurse Name: Derek Tomas MD Position: [facility] Resident Member Role: PCP Address: Address: [address] [place] [address] Name: Monique Irwin LPN Position: [facility] RN Member Role: Primary Care Nurse Name: Lianna Epstein RN Position: [facility] RN Member Role: Primary Care Nurse Name: Mk Knutson LPN Position: [facility] RN Member Role: Primary Care Nurse Name: Farhana Garcia RN Position: [facility] RN Member Role: Primary Care Nurse Name: Kenyatta Villegas RN Position: [facility] RN Member Role: Primary Care Nurse Name: Albertina Adams RN Position: [facility] RN Member Role: Primary Care Nurse Name: Ricardo Russell RN Position: [facility] RN Member Role: Primary Care Nurse Name: Gissell Jernigan RN Position: [facility] RN Member Role: Primary Care Nurse Name: Farhana Green RN Position: [facility] RN Member Role: Primary Care Nurse Name: Cydney Delgado RN Position: [facility] RN Member Role: Primary Care Nurse Name: Sharon Mendez RN Position: [facility] RN Member Role: Primary Care Nurse Name: Mooike Christianson RN Position: [facility] RN Member Role: Primary Care Nurse Name: Ally Boyd RN Position: [facility] RN Member Role: Primary Care Nurse Name: Javed Oneill RN Position: [facility] RN Member Role: Primary Care Nurse Name: Lynn Stewart RN Position: [facility] RN Member Role: Primary Care Nurse Name: Amanda Johnson RN Position: [facility] RN Member Role: Primary Care Nurse Name: Jolie Villalobos RN Position: [facility] RN Member Role: Primary Care Nurse Name: Axel Savage RN Position: [facility] RN Member Role: Primary Care Nurse Name: Dirk Driver RN Position: [facility] RN Member Role: Primary Care Nurse Name: Glenys Bee RN Position: [facility] RN Member Role: Primary Care Nurse Name: Praveen Maurer Position: [facility] RN Member Role: Primary Care Nurse Name: Filemon King RN Position: [facility] RN Member Role: Primary Care Nurse Name: Lauren Guevara RN Position: [facility] RN Member Role: Primary Care Nurse Name: Annamaria Quinn RN Position: [facility] RN Member Role: Primary Care Nurse Name: Jada Waller RN Position: [facility] RN Member Role: Primary Care Nurse Name: Lashawn Nagy RN Position: [facility] RN Member Role: Primary Care Nurse Name: Rhonda Tate LPN Position: [facility] RN Member Role: Primary Care Nurse Name: Jacquelin Naranjo RN Position: [facility] RN Member Role: Primary Care Nurse Name: Glenys Fox RN Position: [facility] RN Member Role: Primary Care Nurse Care Team Related Persons Name: BEVERLY REYNAGA Address: home [place], [place] Name: HEENA MCQUEEN Address: home [address] [place], [place] Name: AISLINN DE LA PAZ Address: [address] [place] [address]
--- OUTSIDE RECORDS SUMMARY | 2024-01-21 19:35 | XMS_ITS | Continuity of Care Document ---
Author Organization [facility] Address [address] [place] [address]- Care Team Providers Care Patternmaker Plastics Name Role Phone Genoveva PAGAN, Derek Primary Care Physician Encounter [facility] [place] Date(s): 07/08/23 - 08/07/[address] [address]- Allergies, Adverse Reactions, Alerts No Known Allergies [...] 06/17/23 8:53:00 EST, Route to Pharmacy Electronically, [facility], Partial fill upon patient request if the prescription is for a schedule II opioid... Start Date: 06/17/23 Status: Ordered baclofen 20 mg oral tablet 20 mg, 1, tablet, By Mouth, 4 times a day, # 120 tablet, Refills 5, Tot. Refills 5, Maintenance, 08/06/23 9:00:00 EDT, Route to Pharmacy Electronically, [facility]/pharmacy #[id number], 182, cm, 07/26/23 9:16:00 EDT, Height, 89, kg, 07/03/23 11:22:00 EST, Dry Weight Start Date: 08/06/23 Status: Ordered docusate sodium 100 mg oral capsule 100 mg, 1, capsule, By Mouth, 2 times a day, # 60 capsule, Refills 0, Tot. Refills 0, Maintenance, 07/16/23 9:51:00 EST, Route to Pharmacy Electronically, [facility], Partial fill upon patient request if the prescription is for a schedul... Start Date: 07/16/23 Status: Ordered duloxetine 30 mg oral enteric coated capsule 2 capsule = 60 mg, By Mouth, Daily, # 60 capsule, 0 Refills, Maintenance, 07/16/23 9:56:00 EST, [facility], 182, cm, 07/04/23 14:56:00 EST, Height, 89, kg, 07/03/23 11:22:00 EST, Dry Weight Start Date: 07/16/23 Status: Ordered Eliquis 5 mg oral tablet See Instructions, TAKE 1 TABLET BY MOUTH TWICE A DAY, # 60 tablet, 11 Refills, Maintenance, 06/12/23 6:31:00 EST, [facility], 193, cm, 06/01/23 9:54:00 EST, Height, 90.9, kg, 06/01/23 9:54:00 EST, Dry Weight Start Date: 06/12/23 Status: Ordered ferrous sulfate 325 mg oral tablet 1 tablet = 325 mg, By Mouth, Daily, TAKE 1 TABLET BY MOUTH EVERY DAY, # 30 tablet, 0 Refills, Maintenance, 06/12/23 6:46:00 EST, Tablet, [facility]/pharmacy #[id number], Partial fill upon [...] 06/12/23 6:46:00 EST, Route to Pharmacy Electronically, [facility]/pharmacy #[id number], Partial fill upon... Start [...] 0, Tot. Refills 0, Acute... Start Date: 08/06/23 Stop Date: 08/16/23 Status: Ordered tiZANidine 2 mg oral tablet 4 mg, 2, tablet, By Mouth, Every 8 hours, PRN, # 90 tablet, Refills 0, Tot. Refills 0, Maintenance,as needed for muscle spasm, 06/21/23 12:37:00 EST, Route to Pharmacy Electronically, [facility]/pharmacy #[id number], Partial fill upon patient request if the presc... Start Date: 06/21/23 Status: Ordered Vitamin D3 1000 intl units oral tablet 1 tablet = 25 mcg, By Mouth, Daily, # 30 tablet, 0 Refills, Maintenance, 07/16/23 10:05:00 EST, Tablet, [facility], Partial fill upon patient request [...] apex Confirmed Active N CP Care Management, Product Strategy Director Carmen Elizabeth [phone] Confirmed Active Therapeutic drug monitoring Confirmed Active Peripheral neuropathy Confirmed Active Right spastic hemiparesis Confirmed Active Spasticity Confirmed Active Tobacco dependence Confirmed Active Social History Social History Type Response Smoking Status 5-9 cigarettes (betw een 1/4 to 1/2 pack)/day in last 30 days entered on: 05/16/22 Sex Patient Care team information Care Team Personnel Name: Anu Lipscomb Position: [facility] RN Member Role: Primary Care Nurse Name: Areli Pittman RN Position: [facility] ED RN W/OE and Tasks Member Role: Primary Care Nurse Name: Derek Tomas MD Position: [facility] Resident Member Role: PCP Address: Address: [address] [place] [address] Name: Farhana Garcia RN Position: [facility] RN Member Role: Primary Care Nurse Name: Farhana Green RN Position: S RN Member Role: Primary Care Nurse Name: Ally Boyd RN Position: [facility] RN Member Role: Primary Care Nurse Name: Javed Oneill RN Position: S RN Member Role: Primary Care Nurse Name: Lynn Stewart RN Position: S RN Member Role: Primary Care Nurse Name: Jolie Villalobos RN Position: [facility] RN Member Role: Primary Care Nurse Name: Axel Savage RN Position: [facility] RN Member Role: Primary Care Nurse Name: Glenys Bee RN Position: [facility] RN Member Role: Primary Care Nurse Name: Filemon King RN Position: [facility] RN Member Role: Primary Care Nurse Name: Lauren Guevara RN Position: [facility] RN Member Role: Primary Care Nurse Name: Lashawn Nagy RN Position: [facility] RN Member Role: Primary Care Nurse Name: Glenys Fox RN Position: [facility] RN Member Role: Primary Care Nurse Care Team Related Persons Name: BEVERLY REYNAGA Address: [place] [address] Name: AISLINN DE LA PAZ Address: home [address] [place] [address]
--- OUTSIDE RECORDS SUMMARY | 2024-01-21 19:35 | XMS_ITS | Continuity of Care Document ---
Author Organization [facility] Address [address] [place] [address]- Care Team Providers Care Agronomy Manager Name Role Phone Derek Tomas MD Primary Care Physician Encounter [facility] [place] Date(s): 12/13/23 - 01/12/[address] [address]- Attending Physician: Sangeetha Latif Admitting Physician: AdmtrSangeetha [...] Acute 05/12/2415:40:00 EST, 10/25/23 15:40:00 EDT, Tablet, [facility]/pharmacy #[id number], Partial fill upon patient request if the prescription is for a schedule II opioid drug... Start Date: 10/25/23 Stop Date: 05/12/24 Status: Ordered amLODIPine 5 mg oral tablet See Instructions, TAKE 1 TABLET BY MOUTH EVERY DAY, # 30 tablet, 10 Refills, Maintenance, 01/11/24 12:18:00 EDT, [facility], 193.8, cm, 01/04/24 1:02:00 EDT, Height, 90.72, kg, 01/04/24 1:02:00 EDT, Dry Weight Start Date: 01/11/24 Status: Ordered ascorbic acid 500 mg oral tablet 1 tablet = 500 mg, By Mouth, Daily, # 30 tablet, 0 Refills, Maintenance, 09/06/23 12:42:00 EDT, Tablet, [facility]/pharmacy #[id number], Partial fill upon patient request if the prescription is for a schedule II opioid drug., 193, cm, 09/05/23 19:48:00 EDT, Height... Start Date: 09/06/23 Status: Ordered baclofen 20 mg oral tablet 20 mg, 1, tablet, By Mouth, 4 times a day, # 120 tablet, Refills 5, Tot. Refills 5, Maintenance, 08/06/23 9:00:00 EDT, Route to Pharmacy Electronically, [facility]/pharmacy #[id number], 182, cm, 07/26/23 9:16:00 EDT, Height, 89, kg, 07/03/23 11:22:00 EST, Dry Weight Start Date: 08/06/23 Status: Ordered clindamycin 1% topical gel APPLY TO AFFECTED AREA TOPICALLY TWICE A DAY Start Date: 11/17/23 Status: Ordered docusate sodium 100 mg oral capsule 1 capsule, By Mouth, 2 times a day, # 60 capsule, 11 Refills, Maintenance, 09/03/23 17:44:00 EDT, [facility] STORE 90[facility], 193, cm, 09/03/23 14:09:00 EDT, Height, 91.4, kg, 08/30/23 12:03:00 EDT, Dry Weight Start Date: 09/03/23 Status: Ordered duloxetine 30 mg oral enteric coated capsule 1 capsule = 30 mg, By Mouth, 2 times a day, TAKE 1 CAPSULE BY MOUTH EVERY DAY, # 60 capsule, 6 Refills, Maintenance, 10/25/23 15:39:00 EDT, Capsule, [facility]/pharmacy #[id number], Partial fill [...] 0 Refills, Maintenance, 10/16/23 15:51:00 EDT, [facility], 193, cm, 10/04/23 3:49:00 EDT, Height, 90.4, [...] tablet, 11 Refills, Maintenance, 08/12/23 13:51:00EDT, Tablet, [facility]/pharmacy #[id number], Partial fill upon patient request if the prescription is for a schedule II opioid drug., 182, cm, 07/26/23 9:16:00 EDT... Start Date: 08/12/23 Status: Ordered hydroxyurea 500 mg oral capsule 1 capsule, By Mouth, Daily, # 30 capsule, 0 Refills, Maintenance, 12/11/23 14:15:00 EDT, [facility], 194, cm, 11/20/23 13:14:00 EDT, Height, 93.9, [...] 02/07/24 7:02:00 EDT, 01/10/24 7:02:00 EDT, Tablet, [facility]/pharmacy #[id number], Partial fill upon patient request if the prescription is for a sched... Start Date: 01/10/24 Stop Date: 02/07/24 Status: Ordered oxyCODONE 30 mg oral tablet 1 tablet = 30 mg, By Mouth, Every 6 hours, PRN as needed for pain, # 56 tablet, 0 Refills, Maintenance, 01/04/24 2:45:00 EDT, Tablet, [facility], Partial fill upon patient request [...] 08/12/23 13:51:00 EDT, Route to Pharmacy Electronically, [facility]/pharmacy #[id number], Partial fill [...] 0 Refills, Maintenance, 07/16/23 10:05:00 EST, Tablet, [facility], Partial fill upon [...] Authored Date: Laboratory * Event Display: Non Lab Results Authored Date: * Event Display: Non Lab Results Authored Date: * Event Display: Laboratory Result Scanned Authored Date: Patient Care team information Care Team Personnel Name: Rita Welch RN Position: S RN Member Role: Primary Care Nurse Name: Sanna Cardozo RN Position: S RN Member Role: Primary Care Nurse Name: Anu Lipscomb RN Position: S RN Member Role: Primary Care Nurse Name: Jeanne Bryant RN Position: S RN Member Role: Primary Care Nurse Name: Mitch Guido RN Position: [facility] RN Member Role: Primary Care Nurse Name: Albertina Kerr RN Position: [facility] RN Member Role: Primary Care Nurse Name: Derek Tomas MD Position: [facility] Resident Member Role: PCP Address: Address: [address] [place] [address]- Name: Mari Suh RN Position: [facility] RN Member Role: Primary Care Nurse Name: Jen Garibay RN Position: [facility] RN Member Role: Primary Care Nurse Name: Monique Irwin LPN Position: [facility] RN Member Role: Primary Care Nurse Name: Lianna Epstein RN Position: [facility] RN Member Role: Primary Care Nurse Name: Austin Wright RN Position: [facility] RN Member Role: Primary Care Nurse Name: Mk Knutson LPN Position: [facility] RN Member Role: Primary Care Nurse Name: Vicenta Barnett RN Position: [facility] RN Member Role: Primary Care Nurse Name: Betty Fonseca RN Position: [facility] RN Member Role: Primary Care Nurse Name: Farhana Garcia RN Position: [facility] RN Member Role: Primary Care Nurse Name: Kenyatta Villegas RN Position: [facility] RN Member Role: Primary Care Nurse Name: Albertina Adams RN Position: [facility] RN Member Role: Primary Care Nurse Name: Ricardo Russell RN Position: [facility] RN Member Role: Primary Care Nurse Name: Gissell Jernigan RN Position: [facility] RN Member Role: Primary Care Nurse Name: Farhana Green RN Position: [facility] RN Member Role: Primary Care Nurse Name: Cydney Delgado RN Position: [facility] RN Member Role: Primary Care Nurse Name: Debbie Rios RN Position: [facility] RN Member Role: Primary Care Nurse Name: Sharon Mendez RN Position: [facility] RN Member Role: Primary Care Nurse Name: Mookie Christianson RN Position: [facility] RN Member Role: Primary Care Nurse Name: Ally Boyd RN Position: [facility] RN Member Role: Primary Care Nurse Name: Javed Oneill RN Position: [facility] RN Member Role: Primary Care Nurse Name: Frances Quach RN Position: [facility] RN Member Role: Primary Care Nurse Name: Sandie Mejia RN Position: [facility] RN Member Role: Primary Care Nurse Name: Kriss Castillo RN Position: [facility] RN Member Role: Primary Care Nurse Name: Lynn Stewart RN Position: [facility] RN Member Role: Primary Care Nurse Name: Amanda Johnson RN Position: [facility] RN Member Role: Primary Care Nurse Name: Jolie Villalobos RN Position: [facility] RN Member Role: Primary Care Nurse Name: Axel Savage RN Position: [facility] RN Member Role: Primary Care Nurse Name: Dirk Driver RN Position: [facility] RN Member Role: Primary Care Nurse Name: Glenys Bee RN Position: [facility] RN Member Role: Primary Care Nurse Name: Praveen Maurer RN Position: [facility] RN Member Role: Primary Care Nurse Name: Filemon King RN Position: [facility] RN Member Role: Primary Care Nurse Name: Gomez Corona RN Position: [facility] RN Member Role: Primary Care Nurse Name: Lauren Guevara RN Position: [facility] RN Member Role: Primary Care Nurse Name: Annamaria Quinn RN Position: [facility] RN Member Role: Primary Care Nurse Name: Deana Short RN Position: [facility] RN Member Role: Primary Care Nurse Name: Lashawn Nagy RN Position: [facility] RN Member Role: Primary Care Nurse Name: Rhonda Tate LPN Position: [facility] RN Member Role: Primary Care Nurse Name: Jacquelin Naranjo RN Position: [facility] RN Member Role: Primary Care Nurse Name: Glenys Fox RN Position: [facility] RN Member Role: Primary Care Nurse Name: Reilly Moreno RN Position: [facility] RN Member Role: Primary Care Nurse Care Team Related Persons Name: BEVERLY REYNAGA Address: home [address] [place], [place] Name: HEENA MCQUEEN Address: home [address] [place], [place] Name: AISLINN DE LA PAZ Address: [address] [address]
--- OUTSIDE RECORDS SUMMARY | 2024-01-21 19:35 | XMS_ITS | Continuity of Care Document ---
Author Organization [facility] Address [address] [place] [address]- Care Team Providers Care Day Haul Youth Supervisor Name Role Phone Derek Tomas MD Primary Care Physician Encounter [facility] Date(s): 08/05/23 - 09/04/[address] [address]- Allergies, Adverse Reactions, Alerts No Known Allergies [...] Refills, Maintenance, 09/03/23 17:44:00 EDT, [facility], 193, cm, 09/03/23 14:09:00 EDT, Height, 91.4, kg, 08/30/23 12:03:00 EDT, Dry Weight Start Date: 09/03/23 Status: Ordered duloxetine 30 mg oral enteric coated capsule 1 capsule = 30 mg, By Mouth, Daily, TAKE 1 CAPSULE BY MOUTH EVERY DAY, # 30 capsule, 6 Refills, Maintenance, 09/03/23 17:47:00 EDT, Capsule, [facility]acy #[id number], Partial fill upon patient request if the prescription is for a schedule II opioid drug., 1... Start Date: 09/03/23 Stop Date: 03/31/24 Status: Ordered Eliquis 5 mg oral tablet See Instructions, TAKE 1 TABLET BY MOUTH TWICE A DAY, # 60 tablet, 11 Refills, Maintenance, 06/12/23 6:31:00 EST, [facility], 193, cm, 06/01/23 9:54:00 EST, Height, 90.9, [...] Pharmacy Electronically, [facility]/pharmacy #[id number], Partial fill upon patient request if the [...] Confirmed Active N CP Care Management, Certified Tumor Registrar Carmen Elizabeth [phone] Confirmed Active Therapeutic drug monitoring Confirmed Active [...] Name: Areli Pittman RN Position: [facility] ED RN W/OE and Tasks Member Role: Primary Care Nurse Name: Derek Tomas MD Position: [facility] Resident Member Role: PCP Address: Address: [address] [place] [address]- Name: Monique Irwin LPN Position: [facility] RN Member Role: Primary Care Nurse Name: Lianna Epstein RN Position: [facility] RN Member Role: Primary Care Nurse Name: Vicenta Barnett RN Position: [facility] RN Member Role: Primary Care Nurse Name: Farhana Garcia RN Position: [facility] RN Member Role: Primary Care Nurse Name: Ricardo Russell RN Position: [facility] RN Member Role: Primary Care Nurse Name: Gissell Jernigan RN Position: [facility] RN Member Role: Primary Care Nurse Name: Farhana Green RN Position: [facility] RN Member Role: Primary Care Nurse Name: Cydney Delgado RN Position: [facility] RN Member Role: Primary Care Nurse Name: Sharon Mendez RN Position: [facility] RN Member Role: Primary Care Nurse Name: Mookie Christianson RN Position: [facility] RN Member Role: Primary Care Nurse Name: Ally Boyd RN Position: [facility] RN Member Role: Primary Care Nurse Name: Jvaed Oneill RN Position: [facility] RN Member Role: Primary Care Nurse Name: Lynn Stewart RN Position: [facility] RN Member Role: Primary Care Nurse Name: Amanda Johnson RN Position: [facility] RN Member Role: Primary Care Nurse Name: Jolie Villalobos RN Position: [facility] RN Member Role: Primary Care Nurse Name: Axel Savage RN Position: [facility] RN Member Role: Primary Care Nurse Name: Glenys Bee RN Position: [facility] RN Member Role: Primary Care Nurse Name: Praveen Maurer Position: [facility] RN Member Role: Primary Care Nurse Name: Filemon King RN Position: [facility] RN Member Role: Primary Care Nurse Name: Lauren Guevara RN Position: [facility] RN Member Role: Primary Care Nurse Name: Annamaria Quinn RN Position: [facility] RN Member Role: Primary Care Nurse Name: Lashawn Nagy RN Position: [facility] RN Member Role: Primary Care Nurse Name: Glenys Fox RN Position: S RN Member Role: Primary Care Nurse Care Team Related Persons Name: BEVERLY REYNAGA Address: [place] [address] Name: AISLINN DE LA PAZ Address: home [address] [place] [address]
--- OUTSIDE RECORDS SUMMARY | 2024-01-21 19:36 | XMS_ITS | Continuity of Care Document ---
Author Organization [facility] Address [address] [place] [address]- Care Team Providers Care Transfer Table Operator Name Role Phone Genoveva PAGAN, Derek Primary Care Physician Encounter [facility] [place] Date(s): 08/13/23 - 09/12/[address] [address]- Allergies, Adverse Reactions, Alerts No Known Allergies [...] 8:53:00 EST, Route to Pharmacy Electronically, [facility], Partial fill upon patient request if the prescription is for a schedule II opioid... Start Date: 06/17/23 Status: Ordered ascorbic acid 500 mg oral tablet 1 tablet = 500 mg, By Mouth, Daily, # 30 tablet, 0 Refills, Maintenance, 09/06/23 12:42:00 EDT, Tablet, [facility]/pharmacy #[id number], Partial [...] Electronically, [facility]/pharmacy #[id number], 182, cm, 07/26/23 9:16:00 EDT, Height, 89, kg, 07/03/23 11:22:00 EST, Dry Weight Start Date: 08/06/23 Status: Ordered docusate sodium 100 mg oral capsule 1 capsule, By Mouth, 2 times a day, # 60 capsule, 11 Refills, Maintenance, 09/03/23 17:44:00 EDT, [facility], 193, cm, 09/03/23 14:09:00 EDT, Height, 91.4, kg, 08/30/23 12:03:00 EDT, Dry Weight Start Date: 09/03/23 Status: Ordered duloxetine 30 mg oral enteric coated capsule 1 capsule = 30 mg, By Mouth, Daily, TAKE 1 CAPSULE BY MOUTH EVERY DAY, # 30 capsule, 6 Refills, Maintenance, 09/03/23 17:47:00 EDT, Capsule, [facility]/pharmacy #[id number], Partial fill upon patient request if the prescription is for a schedule II opioid drug., 1... Start Date: 09/03/23 Stop Date: 03/31/24 Status: Ordered Eliquis 5 mg oral tablet See Instructions, TAKE 1 TABLET BY MOUTH TWICE A DAY, # 60 tablet, 11 Refills, Maintenance, 06/12/23 6:31:00 EST, [facility] STORE 16130, 193, cm, 06/01/23 9:54:00 EST, Height, 90.9, kg, 06/01/23 9:54:00 EST, Dry Weight Start Date: 06/12/23 Status: Ordered ferrous sulfate 325 mg oral tablet 1 tablet = 325 mg, By Mouth, 2 times a day, TAKE 1 TABLET BY MOUTH EVERY DAY, # 180 tablet, 0 Refills, Maintenance, 08/14/23 12:47:00 EDT, Tablet, [facility]/pharmacy #[id number], Partial [...] 6:46:00 EST, Route to Pharmacy Electronically, [facility]/pharmacy #[id number], Partial fill upon... Start Date: 06/12/23 Status: Ordered gabapentin 600 mg oral tablet 1 tablet = 600 mg, By Mouth, 3 times a day, # 90 tablet, 11 Refills, Maintenance, 08/12/23 13:51:00EDT, Tablet, [facility]/pharmacy #[id number], Partial fill upon patient request if the prescription is for a schedule II opioid drug., frank Mitchell, 07/26/23 9:16:00 EDT... Start Date: 08/12/23 Status: Ordered hydroxyurea 500 mg oral capsule = 500 mg, By Mouth, Daily, for 30 days, # 30 capsule, 2 Refills, Acute 10/18/23 14:36:00 EDT, 07/20/23 14:36:00 EST, Capsule, [facility]/pharmacy #[id number], [...] 09/06/23 12:41:00 EDT, REC Powder, [facility]/pharmacy #[id number], Partial [...] Pharmacy Electronically, [facility]/pharmacy #[id number], Partial fill upon patient request if the [...] Refills, Maintenance, 07/16/23 10:05:00 EST, Tablet, [facility], Partial fill [...] apex Confirmed Active [facility] CP Care Management, Postal Sorting Officer Carmen Elizabeth [phone] Confirmed Active Therapeutic drug monitoring Confirmed Active [...] [facility] Resident Member Role: PCP Address: Address: [address] [place] [address] Name: Monique Irwin LPN Position: [facility] RN Member Role: Primary Care Nurse Name: Lianna Epstein RN Position: [facility] RN Member Role: Primary Care Nurse Name: Vicenta Barnett RN Position: [facility] RN Member Role: Primary Care Nurse Name: Farhana Garcia RN Position: [facility] RN Member Role: Primary Care Nurse Name: Ricardo Russell RN Position: [facility] RN Member Role: Primary Care Nurse Name: Gissell Jernigan RN Position: [facility] RN Member Role: Primary Care Nurse Name: Farhana Green RN Position: [facility] RN Member Role: Primary Care Nurse Name: Cydney Delgado RN Position: [facility] RN Member Role: Primary Care Nurse Name: Sharon Mendez RN Position: [facility] RN Member Role: Primary Care Nurse Name: Mookie Christianson RN Position: [facility] RN Member Role: Primary Care Nurse Name: Ally Boyd RN Position: [facility] RN Member Role: Primary Care Nurse Name: Javed Oneill RN Position: [facility] RN Member Role: Primary Care Nurse Name: Lynn Stewart RN Position: [facility] RN Member Role: Primary Care Nurse Name: Amanda Johnson RN Position: [facility] RN Member Role: Primary Care Nurse Name: Jolie Villalobos RN Position: [facility] RN Member Role: Primary Care Nurse Name: Axel Savage RN Position: [facility] RN Member Role: Primary Care Nurse Name: Dirk Driver RN Position: [facility] RN Member Role: Primary Care Nurse Name: Glenys Bee RN Position: [facility] RN Member Role: Primary Care Nurse Name: Praveen Maurer Position: [facility] RN Member Role: Primary Care Nurse Name: Filemon King RN Position: [facility] RN Member Role: Primary Care Nurse Name: Lauren Guevara RN Position: [facility] RN Member Role: Primary Care Nurse Name: Annamaria Quinn RN Position: [facility] RN Member Role: Primary Care Nurse Name: Jada Waller RN Position: [facility] RN Member Role: Primary Care Nurse Name: Lashawn Nagy RN Position: [facility] RN Member Role: Primary Care Nurse Name: Glenys Fox RN Position: [facility] RN Member Role: Primary Care Nurse Care Team Related Persons Name: BEVERLY REYNAGA Address: [place] [address] Name: AISLINN DE LA PAZ Address: home [address] [place] [id number]
--- OUTSIDE RECORDS SUMMARY | 2024-01-21 19:36 | XMS_ITS | Continuity of Care Document ---
Author Organization [facility] Address [address] [place] [address]- Care Team Providers Care Clinical Data Assistant Name Role Phone Genoveva PAGAN, Derek Primary Care Physician [place] [facility] [place] 08/08/23 - 09/07/[address] [address]- Allergies, Adverse Reactions, Alerts No Known Allergies [...] Refills, Maintenance, 09/03/23 17:44:00 EDT, [id number], 193, cm, 09/03/23 14:09:00 EDT, Height, 91.4, kg, 08/30/23 12:03:00 EDT, Dry Weight Start Date: 09/03/23 Status: Ordered duloxetine 30 mg oral enteric coated capsule 1 capsule = 30 mg, By Mouth, Daily, TAKE 1 CAPSULE BY MOUTH EVERY DAY, # 30 capsule, 6 Refills, Maintenance, 09/03/23 17:47:00 EDT, Capsule, [facility]/pharmacy #[id number], Partial fill upon patient request if the prescription is for a schedule II opioid drug., 1... Start Date: 09/03/23 Stop Date: 03/31/24 Status: Ordered Eliquis 5 mg oral tablet See Instructions, TAKE 1 TABLET BY MOUTH TWICE A DAY, # 60 tablet, 11 Refills, Maintenance, 06/12/23 6:31:00 EST, [facility], 193, cm, 06/01/23 9:54:00 EST, Height, 90.9, kg, 06/01/23 9:54:00 EST, Dry Weight Start Date: 06/12/23 Status: Ordered ferrous sulfate 325 mg oral tablet 1 tablet = 325 mg, By Mouth, 2 times a day, TAKE 1 TABLET BY MOUTH EVERY DAY, # 180 tablet, 0 Refills, Maintenance, 08/14/23 12:47:00 EDT, Tablet, [facility]/pharmacy #[id number], Partial [...] 06/12/23 6:46:00 EST, Route to Pharmacy Electronically, [facility]/pharmacy #[id number], Partial fill upon... Start [...] 10/18/23 14:36:00 EDT, 07/20/23 14:36:00 EST, Capsule, [facility]/pharmacy #[id number], Partial fill upon patient request if the prescriptionis for a schedule II opioid drug., frank Mitchell, ... Start Date: 07/20/23 Stop Date: 10/18/23 Status: Ordered MiraLax oral powder for reconstitution = 17 Gm, By Mouth, Daily, PRN Constipation, for 30 days, # 30 each, 0 Refills, Acute 10/06/23 12:41:00 EDT, 09/06/23 12:41:00 EDT, REC Powder, [facility]/pharmacy #[id number], Partial fill upon [...] Route to Pharmacy Electronically, [facility]/pharmacy #[id number], Partial fill upon patient request if the [...] 10:05:00 EST, Tablet, [facility], [...] apex Confirmed Active N CP Care Management, Color Developer Carmen Elizabeth [phone] Confirmed Active Therapeutic drug monitoring Confirmed Active Peripheral neuropathy Confirmed Active Right spastic hemiparesis Confirmed Active Spasticity Confirmed Active Tobacco dependence Confirmed Active Social History Social History Type Response Smoking Status 5-9 cigarettes (betw een / to 1/2 pack)/day in last 30 days entered on: 05/16/22 Sex Patient Care team information Care Team Personnel Name: Anu Lipscomb Position: [facility] RN Member Role: Primary Care Nurse Name: Areli Pittman RN Position: [facility] ED RN W/OE and Tasks Member Role: Primary Care Nurse Name: Derek Tomas MD Position: [facility] Resident Member Role: PCP Address: Address: [address] [place] [address] Name: Monique Irwin LPN Position: [facility] RN Member Role: Primary Care Nurse Name: Lianna Epstein RN Position: [facility] RN Member Role: Primary Care Nurse Name: Vicenta Barnett RN Position: [facility] RN Member Role: Primary Care Nurse Name: Farhana Garcia RN Position: [facility] RN Member Role: Primary Care Nurse Name: Ricardo Russell RN Position: [facility] RN Member Role: Primary Care Nurse Name: Gissell Jernigan RN Position: [facility] RN Member Role: Primary Care Nurse Name: Farhana Green RN Position: [facility] RN Member Role: Primary Care Nurse Name: Cydney Delgado RN Position: [facility] RN Member Role: Primary Care Nurse Name: Sharon Mendez RN Position: [facility] RN Member Role: Primary Care Nurse Name: Mookie Christianson RN Position: [facility] RN Member Role: Primary Care Nurse Name: Ally Boyd RN Position: [facility] RN Member Role: Primary Care Nurse Name: Javed Oneill RN Position: [facility] RN Member Role: Primary Care Nurse Name: Lynn Stewart RN Position: [facility] RN Member Role: Primary Care Nurse Name: Amanda Johnson RN Position: [facility] RN Member Role: Primary Care Nurse Name: Jolie Villalobos RN Position: [facility] RN Member Role: Primary Care Nurse Name: Axel Savage RN Position: [facility] RN Member Role: Primary Care Nurse Name: Dirk Driver RN Position: [facility] RN Member Role: Primary Care Nurse Name: Glenys Bee RN Position: [facility] RN Member Role: Primary Care Nurse Name: Praveen Maurer Position: [facility] RN Member Role: Primary Care Nurse Name: Filemon King RN Position: [facility] RN Member Role: Primary Care Nurse Name: Lauren Guevara RN Position: [facility] RN Member Role: Primary Care Nurse Name: Annamaria Quinn RN Position: [facility] RN Member Role: Primary Care Nurse Name: Jada Waller RN Position: [facility] RN Member Role: Primary Care Nurse Name: Lashawn Nagy RN Position: [facility] RN Member Role: Primary Care Nurse Name: Glenys Fox RN Position: [facility] RN Member Role: Primary Care Nurse Care Team Related Persons Name: JUHI BEVERLY Address: [place] [address] Name: AISLINN DE LA PAZ Address: home [address] [place] [address]
[2024-01-21] MEDS: 0.9 % Sodium Chloride 1,000 ML 999 ML IV (20:15)
[2024-01-21] MEDS: ondansetron HCL 4 MG/2 ML VIAL IVPUSH (20:17)
[2024-01-21 20:18] VITALS: RESP 16
[2024-01-21 20:18] LABS: Basophils Percent Auto 0.5 % (0-2); Eosinophils Absolute Auto 0.1 X10*3/uL (0.0-0.4); Eosinophils Percent Auto 1.6 % (0-4); Hematocrit 33.3 % (42.0-52.0); Hemoglobin 10.3 g/dl (14.0-18.0); Imm Gran Abs Auto 0.04 X10*3/uL (0.00-0.03); Imm Gran Pct Auto 0.5 % (0.0-0.4); Lymphocytes Absolute Auto 1.6 X10*3/uL (1.2-4.9); Lymphocytes Percent Auto 19.7 % (20-40); Mean Corpuscular HGB Conc 30.9 g/dl (31.0-36.0); Mean Corpuscular Hemoglobin 27.8 pg (27.0-33.0); Mean Corpuscular Volume 89.8 fL (80.0-98.0); Mean Platelet Volume 8.3 fL (9.4-12.4); Monocytes Absolute Auto 0.7 X10*3/uL (0.1-1.2); Monocytes Percent Auto 8.5 % (2-11); Neutrophils Absolute Auto 5.6 x10*3/uL (2.0-8.3); Neutrophils Percent Auto 69.2 % (45-73); Platelet Count 599 X10*3/uL (160-400); Red Blood Count 3.71 X10*6/uL (4.60-5.80); Red Cell Distribution Width 18.5 % (11.0-16.0)
[2024-01-21] MEDS: HYDROmorphone HCl 1 MG/ML SYRINGE IVPUSH ×2 (20:18→23:04)
[2024-01-21 20:19] LABS: MANUAL DIFF FLAG NO
[2024-01-21 20:33] LABS: Lactic Acid 1.9 mmol/L (0.5-2.0)
[2024-01-21 20:40] LABS: Alanine Aminotransferase 12 U/L (0-40); Albumin Level 3.4 g/dL (3.5-5.0); Alkaline Phosphatase 140 U/L (39-117); Anion Gap 11 (12-20); Aspartate Amino Transferase 11 U/L (5-37); Bilirubin Total < 0.1 mg/dL (0.0-1.0); Blood Urea Nitrogen 16 mg/dL (9-16); Calcium 8.9 mg/dL (8.4-10.2); Carbon Dioxide 26 mmol/L (22-29); Chloride 105 mmol/L (96-108); Creatinine Clr Calc Pharmacy 165.3; Estimated Glomerular Filt Rate > 60; Glucose Random 105 mg/dL (60-115); Potassium 4.1 mmol/L (3.3-5.1); Sodium 138 mmol/L (135-145); Total Protein 7.9 g/dL (6.5-8.0)
[2024-01-21] MEDS: Piperacillin Sodium/Tazobactam 3.375 GM in 0.9 % Sodium Chloride 50 ML IV (21:00)
[2024-01-21] MEDS: vancomycin/NS 2,000 MG/500 ML PLAST..BAG 250 MG IV (21:36)
[2024-01-21 22:00] VITALS: BP 117/68; PULSE 65; RESP 16; TEMP 37.2; O2SAT 97
[2024-01-21 23:04] VITALS: RESP 14
[2024-01-21 23:51] VITALS: BP 132/70; PULSE 61; RESP 16; TEMP 36.6; O2SAT 97
[2024-01-22 00:57] VITALS: BP 128/68; PULSE 64; RESP 18; TEMP 36.6; O2SAT 97
== END 2024-01-22 01:05 | disposition home or self-care (01) ==
PROVIDERS: Emergency Provider Internal Medicine
DX: S31.819D Unspecified open wound of right buttock, subsequent encounter (principal); X58.XXXD Exposure to other specified factors, subsequent encounter; L03.317 Cellulitis of buttock; F11.10 Opioid abuse, uncomplicated; Z86.73 Personal history of transient ischemic attack (TIA), and cerebral infarction without residual deficits
CPT/HCPCS: 36415; 72192; 80053; 83605; 85025; 87040; 96361; 96374; 96375; 96376; 99284; J1170; J2405; J2543; J3370

== ENCOUNTER 2024-03-09 22:12 | Emergency (ER) | payer OTHER, SELFPAY ==
[2024-03-09 22:21] VITALS: BP 132/50; PULSE 66; O2SAT 98
[2024-03-09 22:23] VITALS: BP 105/54; PULSE 62; RESP 18; TEMP 36.5; O2SAT 97; BMI 26.5
--- OUTSIDE RECORDS SUMMARY | 2024-03-09 23:44 | XMS_ITS | Continuity of Care Document ---
Author Organization [facility] ter Address [address] [place] [id number]- Care Team Providers Care Radiation Control Worker Name Role Phone Derek Tomas MD Primary Care Physician Encounter [facility] [place] Date(s): 01/22/24 - 01/22/[address] [address]- Encounter Diagnosis Withdrawal from opioids(Final) - 01/22/24 Discharge Disposition: A-D/C Home Attending Physician: Charlie Roger MD Admitting Physician: Charlie Roger MD Referring Physician: Not on Staff, Referring [...] Acute 05/12/2415:40:00 EST, 10/25/23 15:40:00 EDT, Tablet, [facility]/pharmacy #[id number], Partial fill upon patient request if the prescription is for a schedule II opioid drug... Start Date: 10/25/23 Stop Date: 05/12/24 Status: Ordered amLODIPine 5 mg oral tablet See Instructions, TAKE 1 TABLET BY MOUTH EVERY DAY, # 30 tablet, 10 Refills, Maintenance, 01/11/24 12:18:00 EDT, [facility], 193.8, cm, 01/04/24 1:02:00 EDT, Height, 90.72, kg, 01/04/24 1:02:00 EDT, Dry Weight Start Date: 01/11/24 Status: Ordered ascorbic acid 500 mg oral tablet 1 tablet = 500 mg, By Mouth, Daily, # 30 tablet, 0 Refills, Maintenance, 09/06/23 12:42:00 EDT, Tablet, [facility]/pharmacy #[id number], Partial fill upon patient request if the prescription is for a schedule II opioid drug., 193, cm, 09/05/23 19:48:00 EDT, Height... Start Date: 09/06/23 Status: Ordered baclofen 20 mg oral tablet 20 mg, 1, tablet, By Mouth, 4 times a day, # 120 tablet, Refills 5, Tot. Refills 5, Maintenance, 08/06/23 9:00:00 EDT, Route to Pharmacy Electronically, [facility]/pharmacy #[id number], 182, cm, 07/26/23 [...] Refills, Maintenance, 09/03/23 17:44:00 EDT, [facility], 193, cm, 09/03/23 14:09:00 EDT, Height, 91.4, kg, 08/30/23 12:03:00 EDT, Dry Weight Start Date: 09/03/23 Status: Ordered duloxetine 30 mg oral enteric coated capsule 1 capsule = 30 mg, By Mouth, 2 times a day, TAKE 1 CAPSULE BY MOUTH EVERY DAY, # 60 capsule, 6 Refills, Maintenance, 10/25/23 15:39:00 EDT, Capsule, [facility]/pharmacy #[id number], Partial fill upon [...] tablet, 0 Refills, Maintenance, 10/16/23 15:51:00 EDT, [facility], 193, cm, 10/04/23 3:49:00 EDT, Height, 90.4, [...] tablet, 11 Refills, Maintenance, 08/12/23 13:51:00EDT, Tablet, [facility]/pharmacy #[id number], Partial fill upon patient request if the prescription is for a schedule II opioid drug., 182, cm, 07/26/23 9:16:00 EDT... Start Date: 08/12/23 Status: Ordered hydroxyurea 500 mg oral capsule 1 capsule, By Mouth, Daily, # 30 capsule, 0 Refills, Maintenance, 12/11/23 14:15:00 EDT, [facility], 194, cm, 11/20/23 13:14:00 EDT, Height, 93.9, [...] hours, PRN as needed for pain, for 14 days, # 56 tablet, 0 Refills, Acute 02/05/24 12:23:00 EDT, 01/22/24 12:23:00 EDT, Tablet, [facility], Partial fill upon patient request if the prescription is for... Start Date: 01/22/24 Stop Date: 02/05/24 Status: Ordered oxyCODONE 30 mg IR tablet 1 tablet = 30 mg, By Mouth, 2 times a day, PRN as needed for pain, for 14 days, # 28 tablet, 0 Refills, Acute 02/05/24 13:26:00 EDT, 01/22/24 13:26:00 EDT, Tablet, [facility], Partial fill upon patient request if the prescription is for... Start Date: 01/22/24 Stop Date: 02/05/24 Status: Ordered oxyCODONE 30 mg IR tablet 1 tablet = 30 mg, By Mouth, Every 6 hours, PRN as needed for pain, for 28 days, # 112 tablet, 0 Refills, Acute 02/07/24 7:02:00 EDT, 01/10/24 7:02:00 EDT, Tablet, [facility]/pharmacy #[id number], Partial fill upon patient request if the prescription is for a sched... Start Date: 01/10/24 Stop Date: 02/07/24 Status: Ordered oxyCODONE 30 mg oral tablet 1 tablet = 30 mg, By Mouth, Every 6 hours, PRN as needed for pain, # 56 tablet, 0 Refills, Maintenance, 01/04/24 2:45:00 EDT, Tablet, [facility], Partial fill upon patient request if the prescription is for a schedule II opioid drug., 19... Start Date: 01/04/24 Status: Ordered OxyCODONE IR Tablet 30 mg, Tablet, By Mouth, Once, STAT, 01/22/24 13:57:00 EDT, Stop date 01/22/24 13:57:00 EDT Start Date: 01/22/24 Stop Date: 01/22/24 Status: Completed pantoprazole 40 mg oral delayed [...] 08/12/23 13:51:00 EDT, Route to Pharmacy Electronically, [facility]/pharmacy #[id number], Partial fill upon patient request if the [...] 0 Refills, Maintenance, 07/16/23 10:05:00 EST, Tablet, [facility], Partial fill upon patient [...] Exam Date Time Procedure Performing Provider Status 01/22/24 8:[address] Head/Brain W/O Contrast Ra maurice Singh; Auth (Verified) Notes: (CT Head/Brain W/O Contrast) Reason For Exam: AMS;Behavior Problem RESULT: CT Head/Brain W/O Contrast CT Head/Brain W/O Contrast INDICATION: Hx of Present Illness: CODEINE WD; Reason: Behavior Problem; AMS; Clinical Question(s):Subarachnoid Hemorrhage; Order Comment: TECHNIQUE: Noncontrast head CT using axial technique and reconstructed in axial and coronal planes.Iterative reconstruction techniques are used to optimize dose and image quality. COMPARISON: 02/15/2021. FINDINGS: Retail Client Manager view findings, lines and tubes: None. BRAIN AND EXTRA-AXIAL SPACES: No parenchymal hemorrhage, midline shift, or mass effect. Sutton-white matter differentiation is wellpreserved. No acute infarct. Area of encephalomalacia within the left frontoparietal lobe with ex vacuo dilatation of the left lateral ventricle.. Ventricles, sulci, and basilar cisterns are normal. No white matter lesions. No subarachnoid hemorrhage. No subdural or epidural collection. CALVARIUM, SKULL BASE, AND SOFT TISSUES: No fractures or suspicious bony lesions. The paranasal sinuses and mastoid air cells are clear. Visualized orbits and globes are intact. The extracranial soft tissues are unremarkable. IMPRESSION: No acute intracranial pathology. Old left MCA infarct. WSN: [id number] Ordering Physician: Donald De Leon Dictated By: Ericka Alejandra MD Dictated Date/Time: 01/22/24 8:50 am Reviewed By: Ericka Alejandra MD Signed By: Ericka Alejandra MD Signed Date/Time: 01/22/24 8:50 am Transcribed By: ZEHRA Transcribed Date/Time: 01/22/24 8:48 am Vital Signs Most recent to oldest [Reference Range]: 1 2 3 Oxygen Saturation [94-100 %] 98 % (01/22/24 2:49 PM) 98 % (01/22/24 11:02 AM) 99 % (01/22/24 7:31 AM) Pulse Rate [55-90 bpm] 74 bpm (01/22/24 2:49 PM) 62 bpm (01/22/24 11:02 AM) 77 bpm (01/22/24 7:31 AM) Blood Pressure [90-138/55-84 mm Hg] 126/72mm Hg (01/22/24 2:49 PM) 122/74mm Hg (01/22/24 11:02 AM) 138/76mm Hg (01/22/24 7:31 AM) Respiratory Rate [16-30 br/min] 17 br/min (01/22/24 3:22 PM) 17 br/min (01/22/24 2:49 PM) 17 br/min (01/22/24 11:02 AM) Temperature [96.8-100.4 DegF] 98 DegF (01/22/24 7:31 AM) Mode of Delivery (Oxygen) Room air (01/22/24 2:49 PM) Room air (01/22/24 11:02 AM) Room air (01/22/24 7:31 AM) Temperature Route Oral (01/22/24 7:31 AM) Social History Social History Type Response Smoking Status 5-9 cigarettes (betw een 1/4 to 1/2 pack)/day in last 30 days entered on: 05/16/22 Sex EKG study * Event Display: ECG 12-Lead Authored Date: Please click on pdf link to open report * Event Display: ECG 12-Lead Authored Date: Ventricular Rate: 66 BPM Atrial Rate: 66 BPM P-R Interval: 160 ms QRS Duration: 100 ms Q-T Interval: 412 ms QTC Calculation(Bazett): 431 ms P [place]: 45 degrees R [place]: -25 degrees T [place]: -7 degrees Normal sinus rhythm Anterior infarct , age undetermined Abnormal ECG When compared with ECG of 26-DEC-2023 00:24, No significant change was found Confirmed by SRUTHI HARRIS MD ([id number]) on 01/22/2024 8:25:08 AM [place]: SRUTHI HARRIS MD Note * Filemon Stewart DO: PERFORM Event Display: Patient Education Leaflets Authored Date: [id number] [facility] - If you need a Doctor or Clinic ?? 34 If You Need a Doctor or Clinic ?? Call [facility] PCP Assignment Line to help you find a doctor:?? [phone] ?? Clinics in [place], [place] For a full list of clinics:? [email or web address] ?? [facility]? [address] [phone] [facility]?[address]?[phone] [place] [address]?[address][phone] [facility]?[address][phone] [facility]?[address] [phone] [facility]?[address][phone] [facility]?[address][phone] [facility]?[address] [phone] [facility]? [address][phone] [facility] social service technician?[address][phone] [facility]?[address][phone] [facility]?[address][phone] [facility]?[address][phone] [facility]? [address][phone] [facility]?[address][phone] ? Patient Care team information Care Team Personnel Name: Yuri RNRita Position: S RN Member Role: Primary Care Nurse Name: Sanna Cardozo RN Position: [facility] RN Member Role: Primary Care Nurse Name: Anu Lipscomb RN Position: [facility] RN Member Role: Primary Care Nurse Name: Jeanne Bryant RN Position: [facility] RN Member Role: Primary Care Nurse Name: Mitch Guido RN Position: [facility] RN Member Role: Primary Care Nurse Name: Albertina Kerr RN Position: [facility] RN Member Role: Primary Care Nurse Name: Derek Tomas MD Position: [facility] Resident Member Role: PCP Address: Address: [address] [place] [id number] Name: Mari Suh RN Position: [facility] RN Member Role: Primary Care Nurse Name: Jen Garibay RN Position: [facility] RN Member Role: Primary Care Nurse Name: Monique Irwin LPN Position: [facility] RN Member Role: Primary Care Nurse Name: Lianna Epstein RN Position: [facility] RN Member Role: Primary Care Nurse Name: Austin Wright RN Position: [facility] RN Member Role: Primary Care Nurse Name: Mk Knutson LPN Position: [facility] RN Member Role: Primary Care Nurse Name: Vicenta Barnett RN Position: [facility] RN Member Role: Primary Care Nurse Name: Betty Fonseca RN Position: [facility] RN Member Role: Primary Care Nurse Name: Farhana Garcia RN Position: [facility] RN Member Role: Primary Care Nurse Name: Kenyatta Villegas RN Position: [facility] RN Member Role: Primary Care Nurse Name: Albertina Adams RN Position: [facility] RN Member Role: Primary Care Nurse Name: Ricardo Russell RN Position: [facility] RN Member Role: Primary Care Nurse Name: Gissell Jernigan RN Position: [facility] RN Member Role: Primary Care Nurse Name: Farhana Green RN Position: [facility] RN Member Role: Primary Care Nurse Name: Cydney Delgado RN Position: [facility] RN Member Role: Primary Care Nurse Name: Debbie Rios RN Position: [facility] RN Member Role: Primary Care Nurse Name: Sharon Mendez RN Position: [facility] RN Member Role: Primary Care Nurse Name: Mookie Christianson RN Position: [facility] RN Member Role: Primary Care Nurse Name: Ally Boyd RN Position: [facility] RN Member Role: Primary Care Nurse Name: Javed Oneill RN Position: [facility] RN Member Role: Primary Care Nurse Name: Frances Quach RN Position: [facility] RN Member Role: Primary Care Nurse Name: Sandie Mejia RN Position: [facility] RN Member Role: Primary Care Nurse Name: Kriss Castillo RN Position: [facility] RN Member Role: Primary Care Nurse Name: Lynn Stewart RN Position: [facility] RN Member Role: Primary Care Nurse Name: Amanda Johnson RN Position: [facility] RN Member Role: Primary Care Nurse Name: Jolie Villalobos RN Position: [facility] RN Member Role: Primary Care Nurse Name: Axel Savage RN Position: [facility] RN Member Role: Primary Care Nurse Name: Dirk Driver RN Position: [facility] RN Member Role: Primary Care Nurse Name: Glenys Bee RN Position: [facility] RN Member Role: Primary Care Nurse Name: Praveen Maurer RN Position: [facility] RN Member Role: Primary Care Nurse Name: Filemon King RN Position: [facility] RN Member Role: Primary Care Nurse Name: Gomez Corona RN Position: [facility] RN Member Role: Primary Care Nurse Name: Lauren Guevara RN Position: [facility] RN Member Role: Primary Care Nurse Name: Annamaria Quinn RN Position: [facility] RN Member Role: Primary Care Nurse Name: Deana Short RN Position: [facility] RN Member Role: Primary Care Nurse Name: Lashawn Nagy RN Position: [facility] RN Member Role: Primary Care Nurse Name: Rhonda Tate LPN Position: [facility] RN Member Role: Primary Care Nurse Name: Jacquelin Naranjo RN Position: [facility] RN Member Role: Primary Care Nurse Name: Glenys Fox RN Position: [facility] RN Member Role: Primary Care Nurse Name: Reilly Moreno RN Position: [facility] RN Member Role: Primary Care Nurse Care Team Related Persons Name: BEVERLY REYNAGA Address: home [address] [place] [address] Name: HEENA MCQUEEN Address: home [address] [place] [address] Name: AISLINN DE LA PAZ Address: home [address] [place] [phone]
--- OUTSIDE RECORDS SUMMARY | 2024-03-09 23:44 | XMS_ITS | Continuity of Care Document ---
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 Name Role Phone Genoveva PAGAN, Derek Primary Care Physician Encounter [facility] Date(s): 02/04/24 - 03/05/[address] [address]- Allergies, Adverse Reactions, Alerts No Known Allergies Immunizations Given and Recorded Vaccine Date Status Refusal Reason influenza virus vaccine, inactivated 02/08/24 Give n influenza virus vaccine, inactivated 05/18/22 Give n tetanus/diphtheria/pertussis, acel(Tdap) 09/13/19 Recorded Medications acetaminophen 500 mg oral tablet 2 tablet = 1,000 mg, By Mouth, 3 times a day, PRN for pain, # 100 tablet, 6 Refills, Acute 05/12/2415:40:00 EST, 10/25/23 15:40:00 EDT, [facility]t, [id number], Partial fill upon patient request if the prescription is for a schedule II opioid drug... Start Date: 10/25/23 Stop Date: 05/12/24 Status: Ordered amLODIPine 5 mg oral tablet See Instructions, TAKE 1 TABLET BY MOUTH EVERY DAY, # 30 tablet, 10 Refills, Maintenance, 01/11/24 12:18:00 EDT, [facility], 193.8, cm, 01/04/24 1:02:00 EDT, Height, 90.72, [...] EDT, Height... Start Date: 09/06/23 Status: Ordered BACLOFEN 20 MG TABLET BACLOFEN 20 MG TABLET, 1 tab, By Mouth, 4 times a day, 0 Refills, Maintenance, 02/21/24 12:26:00 EDT Start Date: 02/21/24 Status: Ordered clindamycin 1% topical gel APPLY TO AFFECTED AREA TOPICALLY TWICE A DAY Start Date: 11/17/23 Status: Ordered docusate sodium 100 mg oral capsule 1 capsule, By Mouth, 2 times a day, # 60 capsule, 11 Refills, Maintenance, 09/03/23 17:44:00 EDT, [facility], 193, cm, 09/03/23 14:09:00 EDT, Height, 91.4, [...] 0 Refills, Maintenance, 10/16/23 15:51:00 EDT, [facility], 193, cm, 10/04/23 3:49:00 EDT, Height, 90.4, kg, 10/07/23 21:33:00 EDT, Dry Weight Start Date: 10/16/23 Status: Ordered folic acid 1 mg oral tablet 1 mg, 1, tablet, By Mouth, Daily, Maintenance, 09/21/23 10:41:00 EDT, Partial fill upon patient request if the prescription is for a schedule II opioid drug. Start Date: 09/21/23 Status: Ordered gabapentin 400 mg oral capsule 800 mg, 2, capsule, By Mouth, 3 times a day, # 180 capsule, Refills 0, Tot. Refills 0, Maintenance,02/03/24 9:55:00 EDT, Route to Pharmacy Electronically, [facility], Partial fill uponpatient request if the prescription is for a schedu... Start Date: 02/03/24 Stop Date: 03/04/24 Status: Ordered hydroxyurea 500 mg oral capsule 1 capsule, By Mouth, Daily, # 30 capsule, 0 Refills, Maintenance, 12/11/23 14:15:00 EDT, [address] [facility] [address], 194, cm, 11/20/23 13:14:00 EDT, Height, 93.9, [...] days, # 56 tablet, 0 Refills, Acute 03/06/24 15:22:00 EDT, 02/21/24 15:22:00 EDT, Tablet, [facility], Partial fill upon patient request if the prescription is for... Start Date: 02/21/24 Stop Date: 03/06/24 Status: Ordered pantoprazole 40 mg oral delayed [...] to Pharmacy Electronically, [facility] #[id number], Partial fill upon patient request if the [...] 0 Refills, Maintenance, 07/16/23 10:05:00 EST, Tablet, [facility], Partial fill upon patient request [...] Team Personnel Name: Rita Welch RN Position: [facility] RN Member Role: Primary Care Nurse Name: Sanna Cardozo RN Position: [facility] RN Member Role: Primary Care Nurse Name: Anu Lipscomb RN Position: [facility] RN Member Role: Primary Care Nurse Name: Jeanne Bryant RN Position: [facility] RN Member Role: Primary Care Nurse Name: Mitch Guido RN Position: [facility] RN Member Role: Primary Care Nurse Name: Areli Pittman RN Position: [facility] OLIVER RN W/OE and Tasks Member Role: Primary Care Nurse Name: Albertina Kerr RN Position: [facility] RN Member Role: Primary Care Nurse Name: Derek Tomas MD Position: [facility] Resident Member Role: PCP Address: Address: [address] [place] [address] Name: Mari Suh RN Position: [facility] RN Member Role: Primary Care Nurse Name: Jen Garibay RN Position: [facility] RN Member Role: Primary Care Nurse Name: Shadia Grover RN Position: [facility] RN Member Role: Primary Care Nurse Name: Monique Irwin LPN Position: [facility] RN Member Role: Primary Care Nurse Name: Lianna Epstein RN Position: [facility] RN Member Role: Primary Care Nurse Name: Austin Wright RN Position: [facility] RN Member Role: Primary Care Nurse Name: Mk Knutson LPN Position: [facility] RN Member Role: Primary Care Nurse Name: Vicenta Barnett RN Position: [facility] RN Member Role: Primary Care Nurse Name: Farhana Garcia RN Position: [facility] RN Member Role: Primary Care Nurse Name: Kenyatta Villegas RN Position: [facility] RN Member Role: Primary Care Nurse Name: Albertina Adams RN Position: [facility] RN Member Role: Primary Care Nurse Name: Jada Bolton RN Position: [facility] RN Member Role: Primary Care Nurse Name: Love Franklin RN Position: [facility] RN Member Role: Primary Care Nurse Name: Ricardo Russell RN Position: [facility] RN Member Role: Primary Care Nurse Name: Gissell Jernigan RN Position: [facility] RN Member Role: Primary Care Nurse Name: Farhana Green RN Position: [facility] RN Member Role: Primary Care Nurse Name: Cydney Delgado RN Position: [facility] RN Member Role: Primary Care Nurse Name: Debbie Rios RN Position: [facility] RN Member Role: Primary Care Nurse Name: Sharon Mendez RN Position: [facility] RN Member Role: Primary Care Nurse Name: Ally Boyd RN Position: [facility] RN Member Role: Primary Care Nurse Name: Javed Oneill RN Position: [facility] RN Member Role: Primary Care Nurse Name: Frances Quach RN Position: [facility] RN Member Role: Primary Care Nurse Name: Sandie Mejia RN Position: [facility] RN Member Role: Primary Care Nurse Name: Kriss Castillo RN Position: [facility] RN Member Role: Primary Care Nurse Name: Lynn Stewart RN Position: [facility] RN Member Role: Primary Care Nurse Name: Amanda Johnson RN Position: [facility] RN Member Role: Primary Care Nurse Name: Jolie Villalobos RN Position: [facility] RN Member Role: Primary Care Nurse Name: Axel Savage RN Position: [facility] RN Member Role: Primary Care Nurse Name: Dirk Driver RN Position: [facility] RN Member Role: Primary Care Nurse Name: Glenys Bee RN Position: [facility] RN Member Role: Primary Care Nurse Name: Praveen Maurer RN Position: [facility] RN Member Role: Primary Care Nurse Name: Filemon King RN Position: [facility] RN Member Role: Primary Care Nurse Name: Gomez Corona RN Position: [facility] RN Member Role: Primary Care Nurse Name: Lauren Guevara RN Position: [facility] RN Member Role: Primary Care Nurse Name: Annamaria Quinn RN Position: [facility] RN Member Role: Primary Care Nurse Name: Deana Short RN Position: [facility] RN Member Role: Primary Care Nurse Name: Lashawn Nagy RN Position: [facility] RN Member Role: Primary Care Nurse Name: Rhonda Tate LPN Position: [facility] RN Member Role: Primary Care Nurse Name: Jacquelin Naranjo RN Position: [facility] RN Member Role: Primary Care Nurse Name: Radha Jain RN Position: [facility] RN Member Role: Primary Care Nurse Name: Glenys Fox RN Position: [facility] RN Member Role: Primary Care Nurse Name: Reilly Moreno RN Position: [facility] RN Member Role: Primary Care Nurse Care Team Related Persons Name: BEVERLY REYNAGA Address: [address] [place] [address] Name: HEENA MCQUEEN Address: [address] [place] [address] Name: AISLINN DE LA PAZ Address: home [address] [place] [id number]
--- OUTSIDE RECORDS SUMMARY | 2024-03-09 23:44 | XMS_ITS | Continuity of Care Document ---
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 Start Date: 10/25/23 Stop Date: 05/12/24 Status: Ordered amLODIPine 5 mg oral tablet See Instructions, TAKE 1 TABLET BY MOUTH EVERY DAY, # 30 tablet, 10 Refills, Maintenance, 01/11/24 12:18:00 EDT, [facility], 193.8, cm, 01/04/24 1:02:00 EDT, Height, 90.72, [...] Refills, Maintenance, 09/03/23 17:44:00 EDT, [facility], 193, cm, 09/03/23 14:09:00 EDT, Height, 91.4, kg, 08/30/23 12:03:00 EDT, Dry Weight Start Date: 09/03/23 Status: Ordered duloxetine 30 mg oral enteric coated capsule 1 capsule = 30 mg, By Mouth, 2 times a day, TAKE 1 CAPSULE BY MOUTH EVERY DAY, # 60 capsule, 6 Refills, Maintenance, 10/25/23 15:39:00 EDT, Capsule, [facility]/pharmacy #[id number], Partial [...] 0 Refills, Maintenance, 10/16/23 15:51:00 EDT, [facility], 193, cm, 10/04/23 3:49:00 EDT, Height, 90.4, kg, 10/07/23 21:33:00 EDT, Dry Weight Start Date: 10/16/23 Status: Ordered folic acid 1 mg oral tablet 1 mg, 1, tablet, By Mouth, Daily, Maintenance, 09/21/23 10:41:00 EDT, Partial fill upon patient request if the prescription is for a schedule II opioid drug. Start Date: 09/21/23 Status: Ordered gabapentin 400 mg oral capsule 800 mg, Capsule, By Mouth, 01/31/24 9:00:00 EDT Start Date: 01/31/24 Stop Date: 01/31/24 Status: Completed gabapentin 600 mg oral tablet [...] Refills, Maintenance, 12/11/23 14:15:00 EDT, [facility], 194, cm, 11/20/23 13:14:00 EDT, Height, 93.9, [...] 0 Refills, Soft Stop, 08/23/23 15:54:00 EDT, [facility] Start Date: 08/23/23 Status: Ordered oxyCODONE 30 mg IR tablet 1 tablet = 30 mg, By Mouth, 2 times a day, PRN as needed for pain, for 14 days, # 28 tablet, 0 Refills, Acute 02/05/24 13:26:00 EDT, 01/22/24 13:26:00 EDT, Tablet, [facility], Partial fill upon patient request if the prescription is for... Start Date: 01/22/24 Stop Date: 02/05/24 Status: Ordered oxyCODONE 30 mg IR tablet 1 tablet = 30 mg, By Mouth, Every 6 hours, PRN as needed for pain, for 28 days, # 112 tablet, 0 Refills, Acute 02/07/24 7:02:00 EDT, 01/10/24 7:02:00 EDT, Tablet, [facility]/pharmacy #[id number], Partial fill upon patient request if the prescription is for a sched... Start Date: 01/10/24 Stop Date: 02/07/24 Status: Ordered oxyCODONE 30 mg oral tablet 1 tablet = 30 mg, By Mouth, Every 6 hours, PRN as needed for pain, # 56 tablet, 0 Refills, Maintenance, 01/04/24 2:45:00 EDT, Tablet, [facility], Partial fill upon patient request if the prescription is for a schedule II opioid drug., 19... Start Date: 01/04/24 Status: Ordered OxyCODONE IR Tablet 30 mg, Tablet, By Mouth, 01/31/24 9:00:00 EDT Start Date: 01/31/24 Stop Date: 01/31/24 Status: Completed OxyCODONE IR Tablet 30 mg, Tablet, By Mouth, 01/31/24 13:00:00 EDT Start Date: 01/31/24 Stop Date: 01/31/24 Status: Completed pantoprazole 40 mg oral delayed [...] Route to Pharmacy Electronically, [facility]acy #[id number], Partial fill upon patient request if the [...] 0 Refills, Maintenance, 07/16/23 10:05:00 EST, Tablet, [facility], Partial fill upon patient request if [...] 4 Oxygen Saturation [94-100 %] 98 % (01/31/24 1:14 PM) 97 % (01/31/24 8:13 AM) 96 % (01/31/24 5:00 AM) Pulse Rate [55-90 bpm] 78 bpm (01/31/24 1:14 PM) 63 bpm (01/31/24 8:13 AM) 60 bpm (01/31/24 5:00 AM) Blood Pressure [90-138/55-84 mm Hg] 123/76mm Hg (01/31/24 1:14 PM) 131/79mm Hg (01/31/24 8:13 AM) 117/85mm Hg (01/31/24 5:00 AM) Respiratory Rate [16-30 br/min] 18 br/min (01/31/24 1:16 PM) 18 br/min (01/31/24 1:14 PM) 13 br/min *L* (01/31/24 8:27 AM) 13 br/min *L* (01/31/24 8:27 AM) Temperature [96.8-100.4 DegF] 98.2 DegF (01/31/24 1:14 PM) 98.6 DegF (01/31/24 8:13 AM) 98.5 DegF (01/30/24 9:56 PM) Mode of Delivery (Oxygen) Room air (01/31/24 1:14 PM) Room air (01/31/24 8:13 AM) Room air (01/31/24 5:00 AM) Blood pressure sites Arm, left (01/31/24 1:14 PM) Arm, right (01/31/24 5:00 AM) Arm, right (01/31/24 1:20 AM) Temperature Route Oral (01/31/24 1:14 PM) Oral (01/31/24 8:13 AM) Oral (01/30/24 9:56 PM) Social History Social History Type Response Smoking Status 5-9 cigarettes (betw een 1/4 to 1/2 pack)/day in last 30 days entered on: 1/4/23 Sex Patient Care team information Care Team Personnel Name: Rita Welch RN Position: [facility] RN Member Role: Primary Care Nurse Name: Sanna Cardozo RN Position: [facility] RN Member Role: Primary Care Nurse Name: Anu Lipscomb RN Position: [facility] RN Member Role: Primary Care Nurse Name: Jeanne Bryant RN Position: [facility] RN Member Role: Primary Care Nurse Name: Mitch Guido RN Position: [facility] RN Member Role: Primary Care Nurse Name: Areli Pittman RN Position: [facility] ED RN W/OE and Tasks Member Role: Primary Care Nurse Name: Albertina Kerr RN Position: [facility] RN Member Role: Primary Care Nurse Name: Mari Suh RN Position: [facility] RN Member Role: Primary Care Nurse Name: Jen Garibay RN Position: [facility] RN Member Role: Primary Care Nurse Name: Monique Irwin LPN Position: [facility] RN Member Role: Primary Care Nurse Name: Lianna Epstein RN Position: [facility] RN Member Role: Primary Care Nurse Name: Austin Wright RN Position: [facility] RN Member Role: Primary Care Nurse Name: Mk Knutson LPN Position: [facility] RN Member Role: Primary Care Nurse Name: Vicenta Barnett RN Position: [facility] RN Member Role: Primary Care Nurse Name: Betty Fonseca RN Position: [facility] RN Member Role: Primary Care Nurse Name: Farhana Garcia RN Position: [facility] RN Member Role: Primary Care Nurse Name: Kenyatta Villegas RN Position: [facility] RN Member Role: Primary Care Nurse Name: Albertina Adams RN Position: [facility] RN Member Role: Primary Care Nurse Name: Ricardo Russell RN Position: [facility] RN Member Role: Primary Care Nurse Name: Gissell Jernigan RN Position: [facility] RN Member Role: Primary Care Nurse Name: Farhana Green RN Position: [facility] RN Member Role: Primary Care Nurse Name: Cydney Delgado RN Position: [facility] RN Member Role: Primary Care Nurse Name: Debbie Rios RN Position: [facility] RN Member Role: Primary Care Nurse Name: Sharon Mendez RN Position: [facility] RN Member Role: Primary Care Nurse Name: Mookie Christianson RN Position: [facility] RN Member Role: Primary Care Nurse Name: Ally Boyd RN Position: [facility] RN Member Role: Primary Care Nurse Name: Javed Oneill RN Position: [facility] RN Member Role: Primary Care Nurse Name: Frances Quach RN Position: [facility] RN Member Role: Primary Care Nurse Name: Sandie Mejia RN Position: [facility] RN Member Role: Primary Care Nurse Name: Kriss Castillo RN Position: [facility] RN Member Role: Primary Care Nurse Name: Not on Staff, PCP Position: [facility] Physician (General Medicine) Member Role: PCP Name: Lynn Stewart RN Position: [facility] RN Member Role: Primary Care Nurse Name: Amanda Johnson RN Position: [facility] RN Member Role: Primary Care Nurse Name: Jolie Villalobos RN Position: [facility] RN Member Role: Primary Care Nurse Name: Axel Savage RN Position: [facility] RN Member Role: Primary Care Nurse Name: Dirk Driver RN Position: [facility] RN Member Role: Primary Care Nurse Name: Glenys Bee RN Position: [facility] RN Member Role: Primary Care Nurse Name: Praveen Maurer RN Position: [facility] RN Member Role: Primary Care Nurse Name: Filemon King RN Position: [facility] RN Member Role: Primary Care Nurse Name: Gomez Corona RN Position: [facility] RN Member Role: Primary Care Nurse Name: Lauren Guevara RN Position: [facility] RN Member Role: Primary Care Nurse Name: Annamaria Quinn RN Position: [facility] RN Member Role: Primary Care Nurse Name: Deana Short RN Position: [facility] RN Member Role: Primary Care Nurse Name: Lashawn Nagy RN Position: [facility] RN Member Role: Primary Care Nurse Name: Rhonda Tate LPN Position: [facility] RN Member Role: Primary Care Nurse Name: Jacquelin Naranjo RN Position: [facility] RN Member Role: Primary Care Nurse Name: Glenys Fox RN Position: [facility] RN Member Role: Primary Care Nurse Name: Reilly Moreno RN Position: [facility] RN Member Role: Primary Care Nurse Care Team Related Persons Name: JUHIMARGARITABEVERLY Address: [address] [place] [address] Name: HEENA MCQUEEN Address: [address] [place] [address] Name: AISLINN DE LA PAZ Address: [address] [place] [address]
--- OUTSIDE RECORDS SUMMARY | 2024-03-09 23:45 | XMS_ITS | Continuity of Care Document ---
Author Organization [facility] Address [address] [place] [address]- Care Team Providers Care In Mold Coater Name Role Phone Not on Staff, PCP Primary Care Physician Unavail able Encounter [facility] Date(s): 01/02/24 - 02/01/[address] [address]- Allergies, Adverse Reactions, Alerts No Known Allergies [...] Refills, Maintenance, 01/11/24 12:18:00 EDT, [id number], 193.8, cm, 01/04/24 1:02:00 EDT, Height, 90.72, [...] 08/06/23 9:00:00 EDT, Route to Pharmacy Electronically, [facility]/pharmacy #[id number], 182, cm, 07/26/23 9:16:00 EDT, Height, 89, kg, 07/03/23 11:22:00 EST, Dry Weight Start Date: 08/06/23 Status: Ordered clindamycin 1% topical gel APPLY TO AFFECTED AREA TOPICALLY TWICE A DAY Start Date: 11/17/23 Status: Ordered docusate sodium 100 mg oral capsule 1 capsule, By Mouth, 2 times a day, # 60 capsule, 11 Refills, Maintenance, 09/03/23 17:44:00 EDT, [id number], 193, cm, 09/03/23 14:09:00 EDT, Height, 91.4, kg, 08/30/23 12:03:00 EDT, Dry Weight Start Date: 09/03/23 Status: Ordered duloxetine 30 mg oral enteric coated capsule 1 capsule = 30 mg, By Mouth, 2 times a day, TAKE 1 CAPSULE BY MOUTH EVERY DAY, # 60 capsule, 6 Refills, Maintenance, 10/25/23 15:39:00 EDT, Capsule, [facility]/pharmacy #[id number], Partial fill upon patient [...] 0 Refills, Maintenance, 10/16/23 15:51:00 EDT, [id number], 193, cm, 10/04/23 3:49:00 EDT, Height, 90.4, [...] tablet, 11 Refills, Maintenance, 08/12/23 13:51:00EDT, Tablet, [facility]/pharmacy #[id number], Partial fill upon patient request if the prescription is for a schedule II opioid drug., 182, cm, 07/26/23 9:16:00 EDT... Start Date: 08/12/23 Status: Ordered hydroxyurea 500 mg oral capsule 1 capsule, By Mouth, Daily, # 30 capsule, 0 Refills, Maintenance, 12/11/23 14:15:00 EDT, [id number], 194, cm, 11/20/23 13:14:00 EDT, Height, 93.9, kg, 11/16/23 23:35:00 EDT, Dry Weight Start Date: 12/11/23 Status: Ordered Ilaris 150 mg/mL subcutaneous solution = 150 mg, Subcutaneous Injection, Every 28 days, 0 Refills, Maintenance, 11/17/23 4:39:00 EDT, Partial fill upon patient request if the prescription is for a schedule II opioid drug. Start Date: 11/17/23 Status: Ordered morphine 15 mg oral tablet, immediate release 1 tablet = 15 mg, By Mouth, 2 times a day, PRN Pain , Severe, for 7 days, # 14 tablet, 0 Refills, Acute 02/08/24 12:30:00 EDT, 02/01/24 12:30:00 EDT, Tablet, [facility], Partial fill upon patient request if the prescription is for a sche... Start Date: 02/01/24 Stop Date: 02/08/24 Status: Ordered morphine 30 mg/12 to 24 hr oral capsule, extended release 1 capsule = 30 mg, By Mouth, Every 12 hours, # 14 capsule, 0 Refills, Maintenance, 02/01/24 12:30:00 EDT, ER Capsule, [facility], Partial fill upon patient request if the prescription is for a schedule II opioid drug., 193.04, cm, ... Start Date: 02/01/24 Stop Date: 02/08/24 Status: Ordered Narcan 4 mg/0.1 mL nasal spray 1 sprays = 4 mg, Nares, Both, Once, To be used use one spray in one nostril. if an additional dose is needed, alternate nostril. may repeat every 2 to 3 minutes until patient responds, # 2 each, 0 Refills, Soft Stop, 08/23/23 15:54:00 EDT, [facility]... Start Date: 08/23/23 Status: Ordered pantoprazole 40 [...] 08/12/23 13:51:00 EDT, Route to Pharmacy Electronically, [facility]/pharmacy #[id number], Partial fill upon patient request if the [...] Maintenance, 07/16/23 10:05:00 EST, Tablet, [facility], Partial fill upon patient [...] Team Personnel Name: Rita Welch RN Position: [facility] RN Member Role: Primary Care Nurse Name: Sanna Cardozo RN Position: [facility] RN Member Role: Primary Care Nurse Name: Anu Lipscomb RN Position: [facility] RN Member Role: Primary Care Nurse Name: Jeanne Bryant RN Position: [facility] RN Member Role: Primary Care Nurse Name: Mitch Guido RN Position: [facility] RN Member Role: Primary Care Nurse Name: Areli Pittman RN Position: [facility] ED RN W/OE and Tasks Member Role: Primary Care Nurse Name: Albertina Kerr RN Position: [facility] RN Member Role: Primary Care Nurse Name: Mari Suh RN Position: [facility] RN Member Role: Primary Care Nurse Name: Jen Garibay RN Position: [facility] RN Member Role: Primary Care Nurse Name: Monique Irwin LPN Position: [facility] RN Member Role: Primary Care Nurse Name: Lianna Epstein RN Position: [facility] RN Member Role: Primary Care Nurse Name: Austin Wright RN Position: [facility] RN Member Role: Primary Care Nurse Name: Mk Knutson LPN Position: [facility] RN Member Role: Primary Care Nurse Name: Vicenta Barnett RN Position: [facility] RN Member Role: Primary Care Nurse Name: Betty Fonseca RN Position: [facility] RN Member Role: Primary Care Nurse Name: Farhana Garcia RN Position: [facility] RN Member Role: Primary Care Nurse Name: Kenyatta Villegas RN Position: [facility] RN Member Role: Primary Care Nurse Name: Albertina Adams RN Position: [facility] RN Member [...] Name: Debbie Rios RN Position: [facility] RN Member Role: Primary Care Nurse Name: Sharon Mendez RN Position: [facility] RN Member Role: Primary Care Nurse Name: Mookie Christianson RN Position: [facility] RN Member Role: Primary Care Nurse Name: Ally Boyd RN Position: [facility] RN Member Role: Primary Care Nurse Name: Javed Oneill RN Position: [facility] RN Member Role: Primary Care Nurse Name: Frances Quach RN Position: [facility] RN Member Role: Primary Care Nurse Name: Sandie Mejia RN Position: [facility] RN Member Role: Primary Care Nurse Name: Kriss Castillo RN Position: [facility] RN Member Role: Primary Care Nurse Name: Not on Staff, PCP Position: [facility] Physician (General Medicine) Member Role: PCP Name: Lynn Stewart RN Position: [facility] RN Member Role: Primary Care Nurse Name: Amanda Johnson RN Position: [facility] RN Member Role: Primary Care Nurse Name: Jolie Villalobos RN Position: [facility] RN Member Role: Primary Care Nurse Name: Axel Savage RN Position: [facility] RN Member Role: Primary Care Nurse Name: Dirk Driver RN Position: [facility] RN Member Role: Primary Care Nurse Name: Glenys Bee RN Position: [facility] RN Member Role: Primary Care Nurse Name: Praveen Maurer RN Position: [facility] RN Member Role: Primary Care Nurse Name: Filemon King RN Position: [facility] RN Member Role: Primary Care Nurse Name: Gomez Corona RN Position: [facility] RN Member Role: Primary Care Nurse Name: Lauren Guevara RN Position: [facility] RN Member Role: Primary Care Nurse Name: Annamaria Quinn RN Position: [facility] RN Member Role: Primary Care Nurse Name: Deana Short RN Position: [facility] RN Member Role: Primary Care Nurse Name: Lashawn Nagy RN Position: [facility] RN Member Role: Primary Care Nurse Name: Rhonda Tate LPN Position: [facility] RN Member Role: Primary Care Nurse Name: Jacquelin Naranjo RN Position: [facility] RN Member Role: Primary Care Nurse Name: Glenys Fox RN Position: [facility] RN Member Role: Primary Care Nurse Name: Reilly Moreno RN Position: [facility] RN Member Role: Primary Care Nurse Care Team Related Persons Name: JUHI BEVERLY Address: [address] [place], [place] Name: HEENA MCQUEEN Address: [address] [place], [place] Name: AISLINN DE LA PAZ Address: [address] [address]
--- OUTSIDE RECORDS SUMMARY | 2024-03-09 23:45 | XMS_ITS | Continuity of Care Document ---
Author Organization [facility] Address [address] [place] [address]- Care Team Providers Care Operating Room Orderly Name Role Phone Genoveva PAGAN, Derek Primary Care Physician [place] [facility] [place] 02/14/[address] [address]- Allergies, Adverse Reactions, Alerts No Known Allergies [...] 05/12/2415:40:00 EST, 10/25/23 15:40:00 EDT, [facility]t, [id number], Partial fill upon patient request if the prescription is for a schedule II opioid drug... Start Date: 10/25/23 Stop Date: 05/12/24 Status: Ordered amLODIPine 5 mg oral tablet See Instructions, TAKE 1 TABLET BY MOUTH EVERY DAY, # 30 tablet, 10 Refills, Maintenance, 01/11/24 12:18:00 EDT, [facility], 193.8, cm, 01/04/24 1:02:00 EDT, Height, 90.72, kg, 01/04/24 1:02:00 EDT, Dry Weight Start Date: 01/11/24 Status: Ordered ascorbic acid 500 mg oral tablet 1 tablet = 500 mg, By Mouth, Daily, # 30 tablet, 0 Refills, Maintenance, 09/06/23 12:42:00 EDT, Tablet, [facility]/pharmacy #[id number], Partial fill upon patient request if the prescription is for a schedule II opioid drug., 193, cm, 09/05/23 19:48:00 EDT, Height... Start Date: 09/06/23 Status: Ordered baclofen 20 mg oral tablet 20 mg, 1, tablet, By Mouth, 4 times a day, PRN, # 30 tablet, Refills 5, Tot. Refills 5, Maintenance, Pain , Mild, 08/06/23 9:00:00 EDT, Route to Pharmacy Electronically, [facility]/pharmacy #[id number], 182, cm, 07/26/23 9:16:00 EDT, Height, 89, kg, 07/03/23 11:22... Start Date: 08/06/23 Status: Ordered clindamycin 1% topical gel APPLY TO AFFECTED AREA TOPICALLY TWICE A DAY Start Date: 11/17/23 Status: Ordered docusate sodium 100 mg oral capsule 1 capsule, By Mouth, 2 times a day, # 60 capsule, 11 Refills, Maintenance, 09/03/23 17:44:00 EDT, [id number], 193, cm, 09/03/23 14:09:00 EDT, Height, 91.4, kg, 08/30/23 12:03:00 EDT, Dry Weight Start Date: 09/03/23 Status: Ordered duloxetine 30 mg oral enteric coated capsule 1 capsule = 30 mg, By Mouth, 2 times a day, TAKE 1 CAPSULE BY MOUTH EVERY DAY, # 60 capsule, 6 Refills, Maintenance, 10/25/23 15:39:00 EDT, Capsule, [facility]/pharmacy #[id number], Partial fill upon patient request [...] opioid drug. Start Date: 09/21/23 Status: Ordered fentaNYL 25 mcg/hr transdermal film, extended release 1 patch, Topically, Every 72 hours, # 3 patch, 0 Refills, Maintenance, 02/11/24 12:51:00 EDT, Patch, [facility]/pharmacy #[id number], Partial fill upon patient request if the prescription is for a schedule II opioid drug., 193.04, cm, 02/03/24 0:29:00 EDT, Height,... Start Date: 02/11/24 Stop Date: 02/18/24 Status: Ordered ferrous sulfate 325 mg oral tablet 1 tablet, By Mouth, 2 times a day, # 180 tablet, 0 Refills, Maintenance, 10/16/23 15:51:00 EDT, [id number], 193, cm, 10/04/23 3:49:00 EDT, Height, 90.4, [...] Maintenance,02/03/24 9:55:00 EDT, Route to Pharmacy Electronically, [facility], Partial fill uponpatient request if the prescription is for a schedu... Start Date: 02/03/24 Stop Date: 03/04/24 Status: Ordered hydroxyurea 500 mg oral capsule 1 capsule, By Mouth, Daily, # 30 capsule, 0 Refills, Maintenance, 12/11/23 14:15:00 EDT, [facility], 194, cm, 11/20/23 13:14:00 EDT, Height, 93.9, [...] 08/12/23 13:51:00 EDT, Route to Pharmacy Electronically, [facility]/pharmacy #[id number], Partial fill upon patient request if the [...] 0 Refills, Maintenance, 07/16/23 10:05:00 EST, Tablet, [facility], Partial fill upon patient request [...] Team Personnel Name: Rita Welch RN Position: [facility] RN Member Role: Primary Care Nurse Name: Sanna Cardozo RN Position: [facility] RN Member Role: Primary Care Nurse Name: Anu Lipscomb RN Position: [facility] RN Member Role: Primary Care Nurse Name: Jeanne Bryant RN Position: [facility] RN Member Role: Primary Care Nurse Name: Mitch Guido RN Position: [facility] RN Member Role: Primary Care Nurse Name: Areli Pittman RN Position: [facility] ED RN W/OE and Tasks Member Role: Primary Care Nurse Name: Albertina Kerr RN Position: [facility] RN Member Role: Primary Care Nurse Name: Derek Tomas MD Position: [facility] Resident Member Role: PCP Address: Address: [address] [place] [id number]- Name: Mari Suh RN Position: [facility] RN Member Role: Primary Care Nurse Name: Jen Garibay RN Position: [facility] RN Member Role: Primary Care Nurse Name: Monique Irwin LPN Position: [facility] RN Member Role: Primary Care Nurse Name: Lianna Epstein RN Position: [facility] RN Member Role: Primary Care Nurse Name: Austin Wright RN Position: [facility] RN Member Role: Primary Care Nurse Name: Mk Knutson LPN Position: [facility] RN Member Role: Primary Care Nurse Name: Vicenta Barnett RN Position: [facility] RN Member Role: Primary Care Nurse Name: Betty Fonseca RN Position: [facility] RN Member Role: Primary Care Nurse Name: Farhana Garcia RN Position: [facility] RN Member Role: Primary Care Nurse Name: Kenyatta Villegas RN Position: [facility] RN Member Role: Primary Care Nurse Name: Albertina Adams RN Position: [facility] RN Member Role: Primary Care Nurse Name: Love Franklin RN Position: [facility] RN Member Role: Primary Care Nurse Name: Ricardo Russell RN Position: [facility] RN Member Role: Primary Care Nurse Name: Gissell Jernigan RN Position: [facility] RN Member Role: Primary Care Nurse Name: Farhana Green RN Position: [facility] RN Member Role: Primary Care Nurse Name: Cydney Delgado RN Position: [facility] RN Member Role: Primary Care Nurse Name: Debbie Rios RN Position: [facility] RN Member Role: Primary Care Nurse Name: Sharon Mendez RN Position: [facility] RN Member Role: Primary Care Nurse Name: Mookie Christianson RN Position: [facility] RN Member Role: Primary Care Nurse Name: Ally Boyd RN Position: [facility] RN Member Role: Primary Care Nurse Name: Javed Oneill RN Position: [facility] RN Member Role: Primary Care Nurse Name: Frances Quach RN Position: [facility] RN Member Role: Primary Care Nurse Name: Sandie Mejia RN Position: [facility] RN Member Role: Primary Care Nurse Name: Kriss Castillo RN Position: [facility] RN Member Role: Primary Care Nurse Name: Lynn Stewart RN Position: [facility] RN Member Role: Primary Care Nurse Name: Amanda Johnson RN Position: [facility] RN Member Role: Primary Care Nurse Name: Jolie Villalobos RN Position: [facility] RN Member Role: Primary Care Nurse Name: Axel Savage RN Position: [facility] RN Member Role: Primary Care Nurse Name: Dirk Driver RN Position: [facility] RN Member Role: Primary Care Nurse Name: Glenys Bee RN Position: [facility] RN Member Role: Primary Care Nurse Name: Praveen Maurer RN Position: [facility] RN Member Role: Primary Care Nurse Name: Filemon King RN Position: [facility] RN Member Role: Primary Care Nurse Name: Gomez Corona RN Position: [facility] RN Member Role: Primary Care Nurse Name: Lauren Guevara RN Position: [facility] RN Member Role: Primary Care Nurse Name: Annamaria Quinn RN Position: [facility] RN Member Role: Primary Care Nurse Name: Deana Short RN Position: [facility] RN Member Role: Primary Care Nurse Name: Lashawn Nagy RN Position: [facility] RN Member Role: Primary Care Nurse Name: Rhonda Tate LPN Position: [facility] RN Member Role: Primary Care Nurse Name: Jacquelin Naranjo RN Position: [facility] RN Member Role: Primary Care Nurse Name: Radha Jain RN Position: [facility] RN Member Role: Primary Care Nurse Name: Glenys Fox RN Position: [facility] RN Member Role: Primary Care Nurse Name: Reilly Moreno RN Position: [facility] RN Member Role: Primary Care Nurse Care Team Related Persons Name: JUHI BEVERLY Address: [address] [place] [address] Name: HEENA MCQUEEN Address: [address] [place], [place] Name: AISLINN DE LA PAZ Address: home [address] [place] [id number]
--- OUTSIDE RECORDS SUMMARY | 2024-03-09 23:46 | XMS_ITS | Continuity of Care Document ---
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 Start Date: 10/25/23 Stop Date: 05/12/24 Status: Ordered amLODIPine 5 mg oral tablet 5 mg, Tablet, By Mouth, 02/10/24 9:00:00 EDT Start Date: 02/10/24 Stop Date: 02/10/24 Status: Completed amLODIPine 5 mg oral tablet See Instructions, TAKE 1 TABLET BY MOUTH EVERY DAY, # 30 tablet, 10 Refills, Maintenance, 01/11/24 12:18:00 EDT, [id number], 193.8, cm, 01/04/24 1:02:00 EDT, Height, 90.72, kg, 01/04/24 1:02:00 EDT, Dry Weight Start Date: 01/11/24 Status: Ordered ascorbic acid 500 mg oral tablet 1 tablet = 500 mg, By Mouth, Daily, # 30 tablet, 0 Refills, Maintenance, 09/06/23 12:42:00 EDT, Tablet, [facility]/pharmacy #[id number], Partial fill upon patient request if the prescription is for a schedule II opioid drug., 193, cm, 09/05/23 19:48:00 EDT, Height... Start Date: 09/06/23 Status: Ordered baclofen 20 mg oral tablet 20 mg, 1, tablet, By Mouth, 4 times a day, PRN, # 30 tablet, Refills 5, Tot. Refills 5, Maintenance, Pain , Mild, 08/06/23 9:00:00 EDT, Route to Pharmacy Electronically, [facility]/pharmacy #[id number], 182, cm, 07/26/23 9:16:00 EDT, Height, 89, kg, 07/03/23 11:22... Start Date: 08/06/23 Status: Ordered clindamycin 1% topical gel APPLY TO AFFECTED AREA TOPICALLY TWICE A DAY Start Date: 11/17/23 Status: Ordered docusate sodium 100 mg oral capsule 1 capsule, By Mouth, 2 times a day, # 60 capsule, 11 Refills, Maintenance, 09/03/23 17:44:00 EDT, [facility] STORE [id number], 193, cm, 09/03/23 14:09:00 EDT, Height, 91.4, kg, 08/30/23 12:03:00 EDT, Dry Weight Start Date: 09/03/23 Status: Ordered doxycycline monohydrate 100 mg oral capsule 1 capsule = 100 mg, By Mouth, Every 12 hours, for 10 days, # 20 capsule, 0 Refills, Acute 02/13/24 9:45:00 EDT, 02/03/24 9:45:00 EDT, Capsule, [facility], Partial fill upon patient request if the prescription is for a schedule II opioid... Start Date: 02/03/24 Stop Date: 02/13/24 Status: Ordered duloxetine 30 mg oral enteric coated capsule 1 capsule = 30 mg, By Mouth, 2 times a day, TAKE 1 CAPSULE BY MOUTH EVERY DAY, # 60 capsule, 6 Refills, Maintenance, 10/25/23 15:39:00 EDT, Capsule, [facility]/pharmacy #[id number], Partial fill upon patient request if [...] 0 Refills, Maintenance, 10/16/23 15:51:00 EDT, [id number], 193, cm, 10/04/23 3:49:00 EDT, Height, 90.4, [...] oral capsule 800 mg, Capsule, By Mouth, 02/10/24 15:00:00 EDT Start Date: 02/10/24 Stop Date: 02/10/24 Status: Completed gabapentin 400 mg oral capsule 800 mg, 2, capsule, By Mouth, 3 times a day, # 180 capsule, Refills 0, Tot. Refills 0, Maintenance,02/03/24 9:55:00 EDT, Route to Pharmacy Electronically, [facility], Partial fill uponpatient request if the prescription is for a schedu... Start Date: 02/03/24 Stop Date: 03/04/24 Status: Ordered hydroxyurea 500 mg oral capsule 1 capsule, By Mouth, Daily, # 30 capsule, 0 Refills, Maintenance, 12/11/23 14:15:00 EDT, [facility] ST[id number], 194, cm, 11/20/23 13:14:00 EDT, Height, 93.9, [...] Status: Ordered oxyCODONE 5 mg oral tablet 15 mg, Tablet, By Mouth, 2 times a day, PRN for Pain , Severe, Routine, 02/06/24 23:12:00 EDT Start Date: 02/06/24 Stop Date: 02/13/24 Status: Ordered pantoprazole 40 mg oral delayed [...] 08/12/23 13:51:00 EDT, Route to Pharmacy Electronically, [facility]/pharmacy #[id number], Partial fill upon patient request if the [...] 0 Refills, Maintenance, 07/16/23 10:05:00 EST, Tablet, [facility], Partial fill upon patient [...] Exam Date Time Procedure Performing Provider Status 02/06/24 6:[address] Abd/Pelvis W/ IV Contrast Only Mate o Kimmy; Auth (Verified) Notes: (CT Abd/Pelvis W/ IV Contrast Only) Reason For Exam: LLQ abdominal pain;Other: RESULT: CT Abd/Pelvis W/ IV Contrast Only CT Abd/Pelvis W/ IV Contrast Only Hx of Present Illness: pt comes from home, here for pain management. Per report, pt was oxycodone, changed to morphine not effective. H o cava aphasia; Reason: Other:; LLQ abdominal pain; Clinical Question(s): Abscess; Order Comment: TECHNIQUE: Spiral CT through the abdomen and pelvis with IV contrast formatted in 3 planes. 100 cc of Omnipaque 300 was administered intravenously. This study was performed without oral contrast. Weight-based protocol using automatic tube modulation was used to optimize exposure parameters. CTDIvol Body: 19.10 mGy, DLP Body: 1279 mGy*cm. COMPARISON: None. 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 Visualized Chest: Bibasilar atelectasis.. No pleural effusion. The heart is normal in size. No pericardial effusion. Diaphragm: Normal. Liver: Normal. Gallbladder: No CT evidence of gallbladder pathology. Bile ducts: No biliary ductal dilation. Spleen: Normal. Pancreas: Normal. Adrenal glands: Normal. Kidneys and ureters: No hydronephrosis, stones, or suspicious masses. . Multiple cysts within the right kidney. Bladder: Normal. Reproductive organs: Unremarkable. Stomach, small bowel, and large bowel: There is moderate amount of stool within the rectosigmoid colon. Appendix: Normal. Peritoneum and retroperitoneum: No ascites or pneumoperitoneum. No omental or mesenteric lesions. Lymph nodes: There are multiple enlarged lymph nodes within the right inguinal region with the largest measuring 3.4 x 2.7 cm. Additionally there are a few enlarged lymph nodes along the right external iliac artery. Blood vessels: Normal. No aneurysm. No evidence of venous thrombosis. Abdominal and pelvic wall: There is extensive skin thickening overlying the right buttocks.. Bones: No acute abnormality. Severe osteoarthritis of left hip. Healed ORIF of left femoral neck fracture with intact hardware. Moderate osteoarthritis of the right hip. IMPRESSION: No evidence of abscess formation. Enlarged lymph nodes within the right inguinal region and along the right external iliac artery Extensive skin thickening overlying the right buttocks. Recommend correlation with patient's clinical history. An actionable message (Comal) has been communicated via the [employer] system on 02/06/2024 7:00 PM, Message ID [id number]. WSN: [id number] Ordering Physician: Ryan Griffith Dictated By: Ericka Alejandra MD Dictated Date/Time: 02/06/24 7:00 pm Reviewed By: Ericka Alejandra MD Signed By: Ericka Alejandra MD Signed Date/Time: 02/06/24 7:00 pm Transcribed By: ZEHRA Transcribed Date/Time: 02/06/24 6:51 pm Vital Signs Most recent to oldest [Reference Range]: 1 2 3 Weight 95.8 kg (02/07/24 9:51 AM) Oxygen Saturation [94-100 %] 99 % (02/10/24 2:56 PM) 100 % (02/10/24 11:33 AM) 98 % (02/10/24 6:51 AM) Pulse Rate [55-90 bpm] 94 bpm *H* (02/10/24 2:56 PM) 73 bpm (02/10/24 11:33 AM) 78 bpm (02/10/24 6:51 AM) Blood Pressure [90-138/55-84 mm Hg] 133/67mm Hg (02/10/24 2:56 PM) 127/77mm Hg (02/10/24 11:33 AM) 133/86mm Hg (02/10/24 10:22 AM) Respiratory Rate [16-30 br/min] 16 br/min (02/10/24 2:59 PM) 18 br/min (02/10/24 2:56 PM) 18 br/min (02/10/24 12:04 PM) Temperature [96.8-100.4 DegF] 98.7 DegF (02/10/24 2:56 PM) 98.4 DegF (02/10/24 11:33 AM) 98.1 DegF (02/10/24 6:51 AM) Mode of Delivery (Oxygen) Room air (02/10/24 2:56 PM) Room air (02/10/24 11:33 AM) Room air (02/10/24 6:51 AM) Blood pressure sites Arm, left (02/10/24 2:56 PM) Arm, left (02/10/24 11:33 AM) Arm, left (02/10/24 6:51 AM) Temperature Route Oral (02/10/24 2:56 PM) Oral (02/10/24 11:33 AM) Oral (02/10/24 6:51 AM) Weight Obtained Via Bed scale (02/07/24 9:51 AM) Social History Social History Type Response Smoking Status 5-9 cigarettes (betw een 1/4 to 1/2 pack)/day in last 30 days entered on: 05/16/22 Sex Admission evaluation note * Etta Martinez DO: PERFORM, MODIFY, MODIFY, MODIFY, MODIFY, MODIFY Event Display: Admission Note Authored Date: [id number] Patient: ??DAVID MCQUEEN ? Age:??38 Years?Sex:??Male?:??1985?? Chief Complaint/Reason for Consultation pt comes from home, here for pain management. per report, pt was on oxycodone, changed to morphine not effective. 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 Of note, patient was recently discharged on 02/02 after presenting with the same poor pain control of his right buttock.?? During this admission, patient's home oxycodone was stopped due to concern for patient diverting or snorting his medications and was recommended by PCP??to switch to MS Contin 30 mg twice dailyand morphine immediate release 15 mg twice daily.??However, patient states that morphine has not helped at all with this pain.??Patient was also discharged??then with total??10-day course of doxycycline 100mg BID for??hidradenitis??with drainage.??This morning, patient had severe 10 out of 10 pain of his right buttock, worse from his typical 7 out of 10 pain since last discharge.?? Patient also shares that for the past week, patient had no VNA support to provide dressing changes of his right buttock ulcer, which has been managed by his mother and brother that lives at home with him.?? Patientnotes that for the past day and a half, patient had no dressing change as his mother and brother were away.?? Patient states that his brother manages his medications.?? Patient endorses compliance with his meds, although has not taken them this AM due to the pain. ?? On presentation to the ED, patient was afebrile and hemodynamically stable.?? Labs were notable forchronic normocytic anemia, chronic thrombocytosis, elevated alkaline phosphatase 149, and elevated inflammatory markers with ESR 87 and CRP 1.3.?? Glucose 86.?? CTAP with IV contrast was obtained which showed no acute findings concerning for abscess or osteomyelitis, and was otherwise notable for enlarged lymph nodes within the right inguinal region and along the right external iliac artery and extensive skin thickening overlying the right buttocks.?? In the ED, patient received total epxpbssgx60 mg. ?? At time of my evaluation, patient remained afebrile and hemodynamically stable.??Has residual right-sided hemiparesis and expressive aphasia from his prior stroke.??Answers questions in 1-2 word sentences, otherwise AAOx3 and answers questions appropriately. Denies new weakness. Reports improvedpain with oxycodone 30mg. Rates pain 5/10 currently.??States that??he has??no other pain/discomfortother than from his??R buttock. Denies SOB, chest pain. Denies dizziness, headache, abdominal pain,new weakness, or difficulty with urination/BMs. Last BM 02/04 AM. Review of Systems All ROS were reviewed and negative except per HPI Objective Vital Signs?? Temperature: 98.3 DegF (02/07/24 00:52:00) Temperature Route: Oral (02/07/24 00:52:00) Pulse Rate: 67 bpm (02/07/24 00:52:00) Respiratory Rate: 22 br/min (02/07/24 00:52:00) Systolic Blood Pressure:??148 mm Hg??High (02/07/24 00:52:00) Diastolic Blood Pressure: 76 mm Hg (02/07/24 00:52:00) Pulse Pressure: 72 mm Hg (02/07/24 00:52:00) Oxygen Saturation: 98 % (02/07/24 00:52:00) Mode of Delivery (Oxygen): Room air (02/07/24 00:52:00) Early Warning Score: 3 (02/07/24 00:56:28) ?? Physical Exam ??Constitutional: NAD, AAOx3 ??HEENT: Normocephalic. PERRLA, EOMI. Neck supple.??Oropharynx clear without lesions ??Respiratory: CTAB, no respiratory distress ??Cardiac: RRR, no m/r/g ??Vascular: ??2+ DP pulses ??Gastrointestinal: abdomen is soft, nontender, nondistended. ??Skin:??Hyperpigmented R gluteal region from chronic ulcer wound - no active discharge or bleeding, erythema, or edema.?Ext:??No LE edema ??Neuro:??Chronic R-sided hemiparesis and expressive aphasia. 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 Intractable pain (R52):?? Ulcer of buttock (L98.419):?? Hidradenitis suppurativa (L73.2):?? Patient with recurrent admissions for poor pain control of chronic R buttock ulcer. No acute changes of his R buttock, with CTAP w/ IV contrast showing no evidence of abscess or osteomyelitis. Hx of multiple I&D's??plus excision??of left buttock in 2022,??skin changes now most prominent on right buttock,??no drainage or open areas, no leukocytosis or fever, does not appear clinically infected. Labs notable for elevated inflammatory markers, which can be likely 2/2 chronic opiate use and prominent smoking hx as low concern for acute infection. Pt denies NRT at this time. Pain is his most prominent complaint. Has been evaluated by pain services previously. Of note, patient was recently discharged from [facility] on 02/02??during which??patient's home oxycodone was stopped due to concern for patient diverting or snorting his medications and was recommended by PCP??to switch to MS Contin 30 mg twice daily and morphine immediate release 15 mg twice daily. Patient was also discharged??then with total??10-day course of doxycycline 100mg BID for??hidradenitis??with drainage. Patient with ongoing poor pain control with home management. ?? Plan: ??? Continue doxycycline 100mg BID to complete total 10-day course. Last day 02/11 ??? Pain control: scheduled Tylenol 975mg TID and PRN Oxycodone 30 mg IR BID.??Can??do breakthroughpain doses with IV Dilaudid.??If??pain regimen not effective, consider consulting pain service for additional recommendations ?Frequent repositioning ??? Monitor area for open areas and drainage ??? Wound care consult ??? Follow fever curve and WBC ??? Hold on antibiotics for now due to no concern for infection ??? Bowel regimen ordered, no concern for constipation at this time ?? Chronic conditions: Chronic ischemic left ICA stroke (I69.30):??Continue home Eliquis PATY (iron deficiency anemia) (D50.9):??H&H at baseline, continue home iron and vitamin C Depression (F32.A):??Not overtly depressed on exam, continue home duloxetine GERD (gastroesophageal reflux disease) (K21.9):??Continue home PPI Peripheral neuropathy (G62.9):??Continue home gabapentin Thrombocytosis (D75.839):?platelets at baseline, continue home hydroxyurea Hypertension (I10):??Continue home amlodipine ?? VTE Prophylaxis:??home Eliquis?VTE Prophylaxis Assessment:??VTE Prophylaxis Ordered ?? Ongoing Medical Necessity:??pain management? Code Status:??Full, confirmed with pt?Order Code Status:??Code Status Ordered ?? Etta Martinez, DO Med-Peds PGY-3 Pager [phone] or [place] ?? This patient was seen and discussed with attending physician Dr. Ribeiro. Histories Allergies Allergies ?(Active and Proposed Allergies [...] hip: 2000 ? Social History Alcohol Details:??Use: Never. Substance Abuse Details:??Use: Current. ??Type: Marijuana. Tobacco Details:??Use: 5-9 cigarettes (between 1/4 to 1/2 pack)/day in last 30 days. Electronic Cigarette/Vaping Details:??Electronic Cigarette Use: Never. ? Family History Mother: Asthma Brother: Asthma ? Medications Home Medications Acetaminophen (acetaminophen 500 mg oral tablet)?2?tab(s)?1,000?Milligram?By Mouth?3 times a day?as needed?for pain Amlodipine (amLODIPine 5 mg oral tablet)?See Instructions?TAKE 1 TABLET BY MOUTH EVERY DAY apixaban (Eliquis 5 mg oral tablet)?1?tab(s)?5?Milligram?By Mouth?2 times a day Ascorbic Acid (ascorbic acid 500 mg oral tablet)?1?tab(s)?500?Milligram?By Mouth?Daily Baclofen (baclofen 20 mg oral tablet)?20?Milligram?1?tablet?By Mouth?4 times a day?as needed?Pain , Mild canakinumab (Ilaris 150 mg/mL subcutaneous solution)?150?Milligram?Subcutaneous Injection?Every 28 days Cholecalciferol (Vitamin D3 1000 intl units oral tablet)?1?tab(s)?25?Microgram?By Mouth?Daily Clindamycin Topical (clindamycin 1% topical gel)?APPLY TO AFFECTED AREA TOPICALLY TWICE A DAY Docusate (docusate sodium 100 mg oral capsule)?1?capsule?By Mouth?2 times a day Doxycycline (doxycycline monohydrate 100 mg oral capsule)?1?capsule?100?Milligram?ByMouth?Every 12 hours?for 10?Days Duloxetine (duloxetine 30 mg oral enteric coated capsule)?1?capsule?30?Milligram?By Mouth?2 times a day?for 30?Days?TAKE 1 CAPSULE BY MOUTH EVERY DAY Durable Medical Equipment (Vashe wound solution)?See Instructions?Use 45mL daily Ferrous Sulfate (ferrous sulfate 325 mg oral tablet)?1?tab(s)?By Mouth?2 times a day Folic Acid (folic acid 1 mg oral tablet)?1?Milligram?1?tablet?By Mouth?Daily Gabapentin (gabapentin 400 mg oral capsule)?800?Milligram?2?capsule?By Mouth?3 times a day?for 30?Days Hydroxyurea (hydroxyurea 500 mg oral capsule)?1?capsule?By Mouth?Daily Morphine (morphine 30 mg/12 to 24 hr oral capsule, extended release)?1?capsule?30?Milligram?By Mouth?Every 12 hours?for 7?Days Morphine (morphine 15 mg oral tablet, immediate release)?1?tab(s)?15?Milligram?By Mouth?2 times a day?as needed?Pain , Severe?for 7?Days nalOXONE (Narcan 4 mg/0.1 mL nasal spray)?1?spray(s)?4?Milligram?Nares, [...] Recent Labs BLOOD COUNT & DIFF WBC 9.6 k/mm3 ()?? 02/06/2024 11:54 RBC 3.68 m/mm3 (Low)?? 02/06/2024 11:54 Hgb 10.4 Gm/dL (Low)?? 02/06/2024 11:54 Hct 34.1 % (Low)?? 02/06/2024 11:54 MCV 92.7 femtoliters ()?? 02/06/2024 11:54 MCH 28.3 pg ()?? 02/06/2024 11:54 MCHC 30.5 Gm/dL (Low)?? 02/06/2024 11:54 Platelet Count 584 k/mm3 (High)?? 02/06/2024 11:54 RDW-SD 55.9 femtoliters (High)?? 02/06/2024 11:54 MPV 8.7 femtoliters (Low)?? 02/06/2024 11:54 Nucleated RBC (Automated) 0.0 #/100 WBC'S ()?? 02/06/2024 11:54 Abs. NRBC 0.0 k/mm3 ()?? 02/06/2024 11:54 Abs. Neut 6.3 k/mm3 ()?? 02/06/2024 11:54 Abs. Lymph 2.4 k/mm3 ()?? 02/06/2024 11:54 Abs. Carver 0.7 k/mm3 ()?? 02/06/2024 11:54 Abs. Eo 0.1 k/mm3 ()?? 02/06/2024 11:54 Abs. Baso 0.0 k/mm3 ()?? 02/06/2024 11:54 Neut % 66.0 % ()?? 02/06/2024 11:54 Lymph % 25.4 % ()?? 02/06/2024 11:54 Carver % 7.2 % ()?? 02/06/2024 11:54 Eos % 0.7 % ()?? 02/06/2024 11:54 Baso % 0.4 % ()?? 02/06/2024 11:54 Imm Gran 0.3 % ()?? 02/06/2024 11:54 Abs. Imm Gran 0.0 k/mm3 ()?? 02/06/2024 11:54 ?? CHEM GENERAL Sodium 134 mmol/L ()?? 02/06/2024 11:54 Potassium 4.2 mmol/L ()?? 02/06/2024 11:54 Chloride 98 mmol/L ()?? 02/06/2024 11:54 Bicarbonate Level 27 mmol/L ()?? 02/06/2024 11:54 Anion Gap 9 ()?? 02/06/2024 11:54 Glucose Level 86 mg/dL ()?? 02/06/2024 11:54 BUN 22 mg/dL (High)?? 02/06/2024 11:54 Creatinine-Blood 0.81 mg/dL ()?? 02/06/2024 11:54 Estimated GFR Creatinine 116 ML/MIN/1.73 M2 ()?? 02/06/2024 11:54 Calcium 9.1 mg/dL ()?? 02/06/2024 11:54 Protein, Total 7.5 Gm/dL ()?? 02/06/2024 11:54 Albumin 3.7 Gm/dL ()?? 02/06/2024 11:54 AG Ratio 1.0 ()?? 02/06/2024 11:54 Alkaline Phosphatase 149 units/L (High)?? 02/06/2024 11:54 AST (SGOT) 9 units/L ()?? 02/06/2024 11:54 ALT (SGPT) 6 units/L ()?? 02/06/2024 11:54 Bilirubin, Total <0.2 mg/dL ()?? 02/06/2024 11:54 C-Reactive Protein 1.3 mg/dL (High)?? 02/06/2024 11:54 ?? HEME OTHER Sed Rate 87 mm/hr (High)?? 02/06/2024 11:54 ? * Quintin PAGAN, Neftali: PERFORM Event Display: Admission Note Authored Date: Attending Attestation: I have seen and evaluated this patient.?? I have discussed the case and its management with the resident and agree with the findings and jaime documented in the resident's note.?? I?? will continue to provide care to this patient till 7 AMof the admitting date.?? 38-year-old male with a past medical history of CVA in 2020 with residual right- sided hemiparesis and expressive aphasia on Eliquis, hidradenitis suppurative of right buttock and hypertension [facility] treatment of intractable pain/hidradenitis suppurativa on p.o. doxycycline came back again with a complaint of intractable pain.?? For now we will optimize the pain regimen and will continue the doxycycline as per the previous plan made.?? W?? Will follow-up with the wound care. Hospital Progress note * Jocelynn Myers LPN: PERFORM, SIGN, VERIFY Event Display: Progress Note Hospital Authored Date: [id number] Patient: DAVID MCQUEEN Age: 38 years Sex: Male : 1985 Associated Diagnoses: None Author: Lucia QUALITY CONTROL HEAD, Jocelynn N. Findings Narrative/Incidental David is A+O x 4, bedfast with R sided weakness and R gluteal wound. Continent with no IV access and MD aware. Dressing on wound dry and intact, it was changed on day shift 2x. Pt was informed if hefelt it was wet or soiled to ring so that I can change it again. Pt requested PRN 15mg Oxy at midnight reporting pain 9/10. Some pain relief noted PT reporting 5/10. He is curently sleeping, respirations at 16 with call mariee and urinal within reach on Left side of bed.. Discharge Information Case Management Discharge Plan : Case Management Discharge Plan Data 02/03/2024 16:45 EDT Discharge Level of Care at Discharge Homehealth/VNA Discharge VNA/Hospice/Home Care [facility] [phone] 02/03/2024 10:06 EDT Discharge Level of Care at Discharge Homehealth/VNA Discharge VNA/Hospice/Home Care [facility] [phone] Name of Agency #1 [facility] [employer] # Service Categories #1 Occupational Therapy, Physical Therapy, Fdc, Speech Therapy Service Start Date and Time #1 02/03/2024 14:00 Service Comments #1 [facility] has been notified of your discharge and will resume services for you once home. * Hossein PAGAN, Noor: PERFORM Event Display: Progress Note Hospital Authored Date: [id number] Patient: ??DAVID MCQUEEN ? Age:??38 Years?Sex:??Male?:??1985?? _ subjective Patient was seen and examined at bedside.?? Complains of ongoing??acute on chronic??pain.?Yesterday he refused to wear fentanyl patch and henever wanted??oxycodone??longer acting.?? -Looks like fentanyl patch??got??dislocated and removed??this morning. -It was retrieved. ??Spoke with nurse and??had to place new fentanyl patch as of 02/08. -Have not been able to??see effective result of fentanyl patch??since it has not been??on for good time.. ?? Will follow-up on pain management.? Review of Systems ?? Objective ?Intake/Output? 02/05 08:27 02/07 07:00 02/06 07:00 02/05 07:00 02/04 07:00 ? 02/07 17:02 02/07 17:02 02/07 06:59 02/06 06:59 02/05 06:59 ?Intake ?708 ?472 ?236 ?0 ?0 ?Output ? 1400 ?850 ?550 ?0 ?0 ?Net Total ? -692 ? -378 ? -314 ?0 ?0 ?Urine Count ?1 ?0 ?1 ?0 ?0 ?Physical Exam ?Cardiac??: Regular rate and rhythm, S1S2+ ?Abdomen/GI??: soft, non-tender, non-distended, bowel sounds present.?right buttock irregular wound, pictures in CIS ?Extremities??: No edema.? Results Reviewed ? Assessment/Plan David is a??pleasant 38-year-old male with past medical history of CVA in 2020 with residual right-sided hemiparesis and expressive aphasia on Eliquis, hidradenitis suppurativa of right buttocks, and HTN who is admitted to observation for poor pain control of his chronic R buttock wound.? Intractable pain (R52):?? Ulcer of buttock (L98.419):?? Hidradenitis suppurativa (L73.2):?? Patient with recurrent admissions for poor pain control of chronic R buttock ulcer. No acute changes of his R buttock, with CTAP w/ IV contrast showing no evidence of abscess or osteomyelitis. Hx of multiple I&D's??plus excision??of left buttock in 2022,??skin changes now most prominent on right buttock,??no drainage or open areas, no leukocytosis or fever, does not appear clinically infected. Labs notable for elevated inflammatory markers, which can be likely 2/2 chronic opiate use and prominent smoking hx as low concern for acute infection. Pt denies NRT at this time. Pain is his most prominent complaint. Has been evaluated by pain services previously. Of note, patient was recently discharged from [facility] on 02/02??during which??patient's home oxycodone was stopped due to concern for patient diverting or snorting his medications and was recommended by PCP??to switch to MS Contin 30 mg twice daily and morphine immediate release 15 mg twice daily. Patient was also discharged??then with total??10-day course of doxycycline 100mg BID for??hidradenitis??with drainage. Patient with ongoing poor pain control with home management. he is afebrile, no leucocytosis. seen by wound care? Two areas expressed of bloody purulence with generalized pain but not on palpation. No indurationnoted to the purulent areas but firm scar tissue to periwound.?? but overall nurses director reports he improved alot since last time she saw him CTAP with no abscess ?? Plan: ??? Continue doxycycline 100mg BID to complete total 10-day course. Last day 02/11 ??? Pain control: scheduled Tylenol 975mg TID and PRN Oxycodone??15 mg IR BID.?? - starting fentanyl patch : 25mh/72 hours -placed on 02/08.?PREVIOUS PROVIDER??[facility] with [facility] he was supposed to see her today 02/05 but ended up in ER. ??she recommended to try long acting opiates and try to avoid oxycodone given short acting. will try fentanyl patch. slowly downtitrate off oxycodone given his over consumption of oxycodone outpt with concerns of abuse. he doesnt want to try morphine or oxycontin. she will try to escalate his appointment for early next week and talk to him about his options and if keeps denying long acting options then would asess him for methadone. ?? encourage to follow up with PMD outpt ?Frequent repositioning ??? Monitor area for open areas and drainage ??? Wound care consulted: R Buttocks: Apply Vashe moistened gauze over wound bed. Leave in place for 5- 10mins. Pat Dry. Applymultiple pieces of Aquacel AG to the open wound bed. Cover with ABD pads. Secure with tape. Change Daily or PRN for soilage. *If Aquacel Ag is difficult to remove with dressing changes , please re-consult Inpatient Wound Care Team. Trauma can occur when removing a dry adhered dressing from a dry wound. *Ensure to document total number of packed dressings utilized in wound bed on outside dressing, to ensure appropriate amount removed next dressing change. ??? Follow fever curve and WBC ??? Bowel regimen ordered, no concern for constipation at this time ?? Chronic conditions: Chronic ischemic left ICA stroke (I69.30):??Continue home Eliquis PATY (iron deficiency anemia) (D50.9):??H&H at baseline, continue home iron and vitamin C Depression (F32.A):??Not overtly depressed on exam, continue home duloxetine GERD (gastroesophageal reflux disease) (K21.9):??Continue home PPI Peripheral neuropathy (G62.9):??Continue home gabapentin Thrombocytosis (D75.839):?platelets at baseline, continue home hydroxyurea Hypertension (I10):??Continue home amlodipine ?? VTE Prophylaxis:??home Eliquis?VTE Prophylaxis Assessment:??VTE Prophylaxis Ordered ?? Ongoing Medical Necessity:??pain management? Code Status:??Full, confirmed with pt?Order Code Status:??Code Status Ordered ? Estimated Discharge Date: TBD ? * Jocelynn Myers LPN: PERFORM, SIGN, VERIFY Event Display: Progress Note Hospital Authored Date: [id number] Patient: DAVID MCQUEEN Age: 38 years Sex: Male : 1985 Associated Diagnoses: None Author: Jocelynn Myers LPN Findings Narrative/Incidental David is A+O x4 with R sided weakness. Reporting 10/10 chronic pain from gluteal wound. PRN oxy given and fetanyl patch in place on L shoulder. Pt voiding WNL with urinal. No IV access due to pt refusal; MD notified. Respirations 16 and call mariee within reach on L side. . Discharge Information Case Management Discharge Plan : Case Management Discharge Plan Data 02/03/2024 16:45 EDT Discharge Level of Care at Discharge Homehealth/VNA Discharge VNA/Hospice/Home Care [facility] [phone] 02/03/2024 10:06 EDT Discharge Level of Care at Discharge Homehealth/VNA Discharge VNA/Hospice/Home Care [facility] [phone] Name of Agency #1 [facility] # Service Categories #1 Occupational Therapy, Physical Therapy, Fdc, Speech Therapy Service Start Date and Time #1 02/03/2024 14:00 Service Comments #1 [facility] has been notified of your discharge and will resume services for you once home. Consult note * Stephon BUSTAMANTE, Zachariah Louis: MODIFY, PERFORM, MODIFY, MODIFY, MODIFY, MODIFY, SIGN, VERIFY, MODIFY, SIGN, MODIFY, SIGN, MODIFY, SIGN, SIGN, MODIFY, SIGN, MODIFY Event Display: Consultation Note Authored Date: [id number] Patient: DAVID MCQUEEN Age: 38 years Sex: Male : 1985 Associated Diagnoses: None Author: Stephon BUSTAMANTE, Zachariah Louis R buttock 02/07/24 R buttock (linear) 02/07/24 R posterior thigh R buttock R buttock r buttock 02/06/24 History of Presenting Problem Date of Service 02/07/2024 Reason for referral Wound: Description Location- R Buttock Etiology- Hidradenitis suppurativa Wound Bed- multiple tunnels with areas of partial and full thickness skin loss; scattered areas of hyperpigmented scar tissue; multiple superficial probable areas with full thickness opening about 0.3 cm in depth Edges- well defined, irregular Jesi Wound- L buttock is healed surgical scar tissue from hidradenitis suppurativa Drainage- copious bloody purulence Odor- none No fluctuance or induration Goals- exudate management and antimicrobial activity Two areas expressed of bloody purulence with generalized pain but not on palpation. No indurationnoted to the purulent areas but firm scar tissue to periwound. . Wound RN consult entered to assess b/l buttocks wound and make topical recommendations. Patient admitted with pain control. Patient is very familiar to the wound care team and has been seen by the wound care team multiple times in past admissions. Please see inpatient wound RN consult note for details. Patient has PMH of CVA with R hemiparesis and hidradenitis suppurativa. [facility], direct care RN states patient is appropriate for consultation. Upon entering the room patientis lying in bed. Wound RN role explained and patient is agreeable to assessment as well as photodocumentation. Patient is able to roll onto his left side and existing dressing gently removed for visua lization of the bilateral buttocks, which is described in detail above. Patient states his mom is still caring for wounds at home and she is changing them daily. He wasn't able to recall the rest of the wound dressing used at home. He states, I'm here because pain Meds not enough . He states he had no other concerns regarding the wound care. He states he hasn't followed up with outpatient because he has been frequently readmitted. I provided moisture management education to David and he states he understands but he still desires to wear brief at home. notified of Purulent drainage and recommended imagining. Recommendations given to direct care RN and EVRST message sent to MD Warren Mcintosh as well. Recommendations: 1.) R Buttocks: Apply Vashe moistened gauze over wound bed. Leave in place for 5-10mins. Pat Dry. Apply multiple pieces of Aquacel AG to the open wound bed. Cover with ABD pads. Secure with tape. Change Daily or PRN for soilage. *If Aquacel Ag is difficult to remove with dressing changes , please re-consult Inpatient Wound Care Team. Trauma can occur when removing a dry adhered dressing from a dry wound. *Ensure to document total number of packed dressings utilized in wound bed on outside dressing, to ensure appropriate amount removed next dressing change. Please reconsult for wound care RNs for deterioration in wound/skin status. Plan Time spent 31-45 minutes Note * Jolie Villalobos RN: PERFORM Event Display: Discharge/Transfer Note Hospital Authored Date: [id number] Nursing Discharge Note Entered On: 02/10/2024 16:09 EDT Performed On: 02/10/2024 17:00 EDT by Jolie Villalobos RN Nursing Discharge Note 2 Discharge Time : 02/10/2024 17:00 EDT Discharge Level of Care at Discharge : Homehealth/VNA Discharge VNA/Hospice/Home Care(v001) : [facility] [phone] Patient Left Unit Via : Ambulance Patient Accompanied Off Unit with : Ambulance/Ch[facility] Personnel Handover Given to Transport Personnel : Yes DC Instructions Provided & Signed by Pt : Yes Patient Understands D/C Instructions : Yes Patient Instructions Discharge Signed : No Did Pt have Specialty Bed or Wound Vac : No Jolie Villalobos RN - 02/10/2024 16:59 EDT * Hossein PAGAN, Noor: PERFORM Event Display: Discharge/Transfer Note Hospital Authored Date: [id number] Patient: ??DAVID MCQUEEN ? Age:??38 Years?Sex:??Male?:??1985?? Patient Information Discharge Location: S3 Primary Care Physician: Derek Tomas MD Admit Date/Time: 02/06/24 08:27 Discharge Disposition Discharge Disposition: Home with Home Health Discharge Diagnosis Ulcer of buttock (L98.419) Intractable pain (R52) Hidradenitis suppurativa (L73.2) _ Discharge Medications Acetaminophen (acetaminophen 500 mg oral tablet)?2?tab(s)?1,000?Milligram?By Mouth?3 times a day?as needed?for pain Amlodipine (amLODIPine 5 mg oral tablet)?See Instructions?TAKE 1 TABLET BY MOUTH EVERY DAY apixaban (Eliquis 5 mg oral tablet)?1?tab(s)?5?Milligram?By Mouth?2 times a day Ascorbic Acid (ascorbic acid 500 mg oral tablet)?1?tab(s)?500?Milligram?By Mouth?Daily Baclofen (baclofen 20 mg oral tablet)?20?Milligram?1?tablet?By Mouth?4 times a day?as needed?Pain , Mild canakinumab (Ilaris 150 mg/mL subcutaneous solution)?150?Milligram?Subcutaneous Injection?Every 28 days Cholecalciferol (Vitamin D3 1000 intl units oral tablet)?1?tab(s)?25?Microgram?By Mouth?Daily Clindamycin Topical (clindamycin 1% topical gel)?APPLY TO AFFECTED AREA TOPICALLY TWICE A DAY Docusate (docusate sodium 100 mg oral capsule)?1?capsule?By Mouth?2 times a day Doxycycline (doxycycline monohydrate 100 mg oral capsule)?1?capsule?100?Milligram?ByMouth?Every 12 hours?for 10?Days Duloxetine (duloxetine 30 mg oral enteric coated capsule)?1?capsule?30?Milligram?By Mouth?2 times a day?for 30?Days?TAKE 1 CAPSULE BY MOUTH EVERY DAY Durable Medical Equipment (Vashe wound solution)?See Instructions?Use 45mL daily Fentanyl (fentaNYL 25 mcg/hr transdermal film, extended release)?1?patch(es)?Topically?Every 72 hours?for 7?Days Ferrous Sulfate (ferrous sulfate 325 mg oral tablet)?1?tab(s)?By Mouth?2 times a day Folic Acid (folic acid 1 mg oral tablet)?1?Milligram?1?tablet?By Mouth?Daily Gabapentin (gabapentin 400 mg oral capsule)?800?Milligram?2?capsule?By Mouth?3 times a day?for 30?Days Hydroxyurea (hydroxyurea 500 mg oral capsule)?1?capsule?By Mouth?Daily nalOXONE (Narcan 4 mg/0.1 mL nasal spray)?1?spray(s)?4?Milligram?Nares, Both?Once?To be used use one spray in one nostril. if an additional dose is needed, alternate nostril. mayrepeat every 2 to 3 minutes until patient responds Oxycodone (oxyCODONE 15 mg oral tablet)?1?tab(s)?15?Milligram?By Mouth?2 times a day?as needed?for pain?for 7?Days Pantoprazole (pantoprazole 40 mg oral delayed release tablet)?1?tab(s)?By Mouth?Daily Tizanidine (tiZANidine 2 mg oral tablet)?4?Milligram?2?tablet?By Mouth?Every 8 hours?as needed?as needed for muscle spasm Triamcinolone Topical (triamcinolone 0.1% topical cream)?1?boyd?Topically?2 times a day?*DO NOT APPLY TO OPEN WOUND(S)* ? Quality Measures Tobacco Use Treatment:? Medications Started fentanyl oxycodone 15 mg bid - short acting Medications Discontinued oxycontin Doses Changed none Allergies Allergies ?(Active and Proposed Allergies Only) NKA? (Severity: Unknown severity, Onset: Unknown) ? PCP [facility]. fentanyl patch Future Appointments Saturday 2:30 PM EDT ?? With: Derek Tomas MD Where: [place] [phone]- Status: Pending Hospital Course David is a pleasant 38-year-old male with past medical history of CVA in 2020 with residual right-sided hemiparesis and expressive aphasia on Eliquis, hidradenitis suppurativa of right buttocks, andHTN who is admitted to observation for poor pain control of his chronic R buttock wound. ?? Intractable pain (R52): Ulcer of buttock (L98.419): Hidradenitis suppurativa (L73.2): ?? Patient with recurrent admissions for poor pain control of chronic R buttock ulcer. No acute changes of his R buttock, with CTAP w/ IV contrast showing no evidence of abscess or osteomyelitis. Hx of multiple I&D's plus excision of left buttock in 2022, skin changes now most prominent on right buttock, no drainage or open areas, no leukocytosis or fever, does not appear clinically infected. Labs notable for elevated inflammatory markers, which can be likely 2/2 chronic opiate use and prominent smoking hx as low concern for acute infection. Pt denies NRT at this time. ?? Of note, patient was recently discharged from [facility] on 02/02 during which patient's home oxycodone wasstopped due to concern for patient diverting or snorting his medications and was recommended by PCPto switch to MS Contin 30 mg twice daily and morphine immediate release 15 mg twice daily. Patient was also discharged then with total 10-day course of doxycycline 100mg BID for hidradenitis with drainage. Patient with ongoing poor pain control with home management. CTAP with no abscess ?? Plan: ??? Continue doxycycline 100mg BID to complete total 10-day course. Last day 02/11 ??? Pain control: scheduled Tylenol 975mg TID and PRN Oxycodone 15 mg IR BID. - starting fentanyl patch : 25mh/72 hours -placed on 02/08. - patient has follow up appointment with his pain specialist - hence giving 3 patches of fentanyl. - rest of medication refill will be by his PCP? pain specialist. ? OFF NOTE??PREVIOUS PROVIDER discussed with who supervises [facility] physician[facility]. he was supposed to see her today 02/05 but ended up in ER. she recommended to try long acting opiates and try to avoid oxycodone given short acting. will try fentanyl patch. slowly downtitrate off oxycodone given his over consumption of oxycodone outpt with concerns of abuse. he doesnt want to try morphine or oxycontin. she will try to escalate his appointment for early next weekand talk to him about his options and if keeps denying long acting options then would asess him formethadone. ? Wound care consulted: R Buttocks: Apply Vashe moistened gauze over wound bed. Leave in place for 5- 10mins. Pat Dry. Applymultiple pieces of Aquacel AG to the open wound bed. Cover with ABD pads. Secure with tape. Change Daily or PRN for soilage. *If Aquacel Ag is difficult to remove with dressing changes , please re-consult Inpatient Wound Care Team. Trauma can occur when removing a dry adhered dressing from a dry wound. *Ensure to document total number of packed dressings utilized in wound bed on outside dressing, to ensure appropriate amount removed next dressing change. ? Chronic conditions: Chronic ischemic left ICA stroke (I69.30): Continue home Eliquis PATY (iron deficiency anemia) (D50.9): H&H at baseline, continue home iron and vitamin C Depression (F32.A): Not overtly depressed on exam, continue home duloxetine GERD (gastroesophageal reflux disease) (K21.9): Continue home PPI Peripheral neuropathy (G62.9): Continue home gabapentin Thrombocytosis (D75.839): platelets at baseline, continue home hydroxyurea Hypertension (I10): Continue home amlodipine ? Objective Assessment and Plan Discharge Planning:? Vital Signs?? Temperature: 98.7 DegF (02/10/24 14:56:00) Temperature Route: Oral (02/10/24 14:56:00) Pulse Rate:??94 bpm??High (02/10/24 14:56:00) Respiratory Rate: 16 br/min (02/10/24 14:59:00) Systolic Blood Pressure: 133 mm Hg (02/10/24 14:56:00) Diastolic Blood Pressure: 67 mm Hg (02/10/24 14:56:00) Blood pressure sites: Arm, left (02/10/24 14:56:00) Mean Arterial Pressure: 89 mm Hg (02/10/24 14:56:00) Pulse Pressure: 66 mm Hg (02/10/24 14:56:00) Oxygen Saturation: 99 % (02/10/24 14:56:00) Mode of Delivery (Oxygen): Room air (02/10/24 14:56:00) Early Warning Score: 0 (02/10/24 15:00:23) ? . Physical Exam ?Cardiac??: Regular rate and rhythm, S1S2+ ?Abdomen/GI??: soft, non-tender, non-distended, bowel sounds present.?right buttock irregular wound, pictures in [facility] ?Extremities??: No edema.? Pending Results No Pending Results Follow-Up Appointments Added Follow Up ?Time Frame ?Comments Colon-Jon PAGAN, Derek Patient Instructions ?? Plan: ??? Continue doxycycline 100mg BID to complete total 10-day course. Last day 02/11 ??? Pain control: scheduled Tylenol 975mg TID and PRN Oxycodone 15 mg IR BID. - starting fentanyl patch : 25mh/72 hours -placed on 02/08. - patient has follow up appointment with his pain specialist - hence giving 3 patches of fentanyl. - rest of medication refill will be by his PCP/?? pain specialist. ? OFF NOTE??PREVIOUS PROVIDER discussed with who supervises resident physicianat [facility]. he was supposed to see her today 02/05 but ended up in ER. she recommended to try long acting opiates and try to avoid oxycodone given short acting. will try fentanyl patch. slowly downtitrate off oxycodone given his over consumption of oxycodone outpt with concerns of abuse. he doesnt want to try morphine or oxycontin. -??HAVE APPOINTMENT ON 02/16 SCHEDULED. PATIENT IS AWARE.??and talk to him about his options and if keeps denying long acting options then would asess him for methadone. ? Wound care consulted: ? R Buttocks: Apply Vashe moistened gauze over wound bed. Leave in place for 5- 10mins. Pat Dry. Apply multiple pieces of Aquacel AG to the open wound bed. Cover with ABD pads. Secure with tape. Change Daily or PRN for soilage. *If Aquacel Ag is difficult to remove with dressing changes , please re-consult Inpatient Wound Care Team. Trauma can occur when removing a dry adhered dressing from a dry wound. *Ensure to document total number of packed dressings utilized in wound bed on outside dressing, to ensure appropriate amount removed next dressing change. ??? Post Discharge Care Wound Care: ??Wound Site: R buttock Daily Yes ?? Discharge ?02/10/24 15:34:00 EDT ?02/10/24 15:33:00 EDT Discharge Prescriptions ?ePrescribed, 02/10/24 15:34:00 EDT ?ePrescribed, 02/10/24 15:33:00 EDT Home Health Face to Face *Denotes mandatory burton ?? *I certify that this patient is under my care and that I or an allowed non- physician working with me had a face to face encounter with the patient on this date:??02/10/2024 15:37 ?? *The encounter with the patient was in whole, or in part, for the following medical condition, which is the primary diagnosis(es) for home health care:??Ulcer of buttock (L98.419) Intractable pain (R52) Hidradenitis suppurativa (L73.2) ?? *Select the indications for the discipline/s that are being arranged for this patient. Nursing (select all that apply): [_] None [_] Medication management (reconciliation, teaching)?? [x_] Chronic disease [...] apply): [_] None [_x] Functional mobility training [_]x Home exercise program to strengthen [_] Increase [...] Inability to ambulate without assistance [_] Pain [_x] Decreased strength and endurance [x_] Unsteady gait [_] Severe SOB and fatigue [_] Impaired transfers [_] Inability to negotiate stairs [_] Limited weight bearing [_] Mental status change? *Physician Signature: _ noor hossein ?? *By signing this, I certify that I have personally evaluated the patient and agree with the findings and recommendations as documented above. ? Results Discharge Labs BLOOD COUNT & DIFF WBC 6.9 k/mm3 ()?? 02/08/2024 01:33 RBC 3.43 m/mm3 (Low)?? 02/08/2024 01:33 Hgb 9.7 Gm/dL (Low)?? 02/08/2024 01:33 Hct 30.7 % (Low)?? 02/08/2024 01:33 MCV 89.5 femtoliters ()?? 02/08/2024 01:33 MCH 28.3 pg ()?? 02/08/2024 01:33 MCHC 31.6 Gm/dL (Low)?? 02/08/2024 01:33 Platelet Count 545 k/mm3 (High)?? 02/08/2024 01:33 RDW-SD 52.7 femtoliters (High)?? 02/08/2024 01:33 MPV 8.6 femtoliters (Low)?? 02/08/2024 01:33 Nucleated RBC (Automated) 0.0 #/100 WBC'S ()?? 02/08/2024 01:33 Abs. NRBC 0.0 k/mm3 ()?? 02/08/2024 01:33 Abs. Neut 6.3 k/mm3 ()?? 02/06/2024 11:54 Abs. Lymph 2.4 k/mm3 ()?? 02/06/2024 11:54 Abs. Carver 0.7 k/mm3 ()?? 02/06/2024 11:54 Abs. Eo 0.1 k/mm3 ()?? 02/06/2024 11:54 Abs. Baso 0.0 k/mm3 ()?? 02/06/2024 11:54 Neut % 66.0 % ()?? 02/06/2024 11:54 Lymph % 25.4 % ()?? 02/06/2024 11:54 Carver % 7.2 % ()?? 02/06/2024 11:54 Eos % 0.7 % ()?? 02/06/2024 11:54 Baso % 0.4 % ()?? 02/06/2024 11:54 Imm Gran 0.3 % ()?? 02/06/2024 11:54 Abs. Imm Gran 0.0 k/mm3 ()?? 02/06/2024 11:54 ?? CHEM GENERAL Sodium 136 mmol/L ()?? 02/08/2024 01:33 Potassium 3.9 mmol/L ()?? 02/08/2024 01:33 Chloride 101 mmol/L ()?? 02/08/2024 01:33 Bicarbonate Level 25 mmol/L ()?? 02/08/2024 01:33 Anion Gap 10 ()?? 02/08/2024 01:33 Glucose Level 93 mg/dL ()?? 02/07/2024 03:51 BUN 22 mg/dL (High)?? 02/08/2024 01:33 Creatinine-Blood 0.87 mg/dL ()?? 02/08/2024 01:33 Estimated GFR Creatinine 114 ML/MIN/1.73 M2 ()?? 02/08/2024 01:33 Calcium 8.9 mg/dL ()?? 02/07/2024 03:51 Protein, Total 7.5 Gm/dL ()?? 02/06/2024 11:54 Albumin 3.7 Gm/dL ()?? 02/06/2024 11:54 AG Ratio 1.0 ()?? 02/06/2024 11:54 Alkaline Phosphatase 149 units/L (High)?? 02/06/2024 11:54 AST (SGOT) 9 units/L ()?? 02/06/2024 11:54 ALT (SGPT) 6 units/L ()?? 02/06/2024 11:54 Bilirubin, Total <0.2 mg/dL ()?? 02/06/2024 11:54 C-Reactive Protein 1.3 mg/dL (High)?? 02/06/2024 11:54 ?? HEME OTHER Sed Rate 87 mm/hr (High)?? 02/06/2024 11:54 ? _50 ??minutes spent on discharge * Julieth BUSTAMANTE, Olga: PERFORM, SIGN, VERIFY Event Display: Case Management Discharge Plan Authored Date: Patient: DAVID MCQUEEN Age: 38 years Sex: Male : 1985 Associated Diagnoses: None Author: Julieth BUSTAMANTE, Olga Discharge Plan Case Management Discharge Plan : Case Management Discharge Plan Data 02/10/2024 11:47 EDT Discharge Level of Care at Discharge Homehealth/VNA Discharge VNA/Hospice/Home Care [facility] [phone] Discharge Transportation Arranged [facility] [address] [place] [address] Name of Agency #1 [facility] # Service Categories #1 Fdc Service Comments #1 You are returning home with resumed skilled services from [facility].They have been notified of your discharge today, however, if you do not hear from them in 48 hours please call agency at [phone] * Griselda BUSTAMANTE, Jolie: PERFORM Event Display: Patient Education/Instruction Authored Date: [id number] Inpatient Adult Discharge Instructions. [address] [address] Name: DAVID MCQUEEN : 1985?? Visit: 02/06/2024 08:27?? Current Date: 02/10/2024 13:33 ?? Account: [id number]?? Inpatient Adult Discharge Instructions We would like [...] and their families. Surveys are administered by [employer] ?? If further treatment with your primary care physician or another doctor is recommended, it is important for you to keep the appointment. Call your primary care physician or return to the Emergency Department immediately if your condition worsens, fails to improve, or new symptoms develop. If you need to find a doctor, you can call [facility] for a referral at [phone] or toll free at [phone] or log in to [email or web address].. ?? [facility], in keeping with [facility] guidance, no longer requires face masks [...] a health care [facility] of your choosing. [employer] is a website that allows you to [...] office visit. You have been discharged from [facility], Patient Care Unit: S2??. If you have any questions regarding these instructions, including results of studies pending, afteryou leave, please call us and we will be happy to assist you 03/12. [facility] Your Care Team Attending Physician Hossein PAGAN, Noor?? Consulting Providers Hossein PAGAN, Noor?? Reason for Your Visit pt comes from home, here for pain management. per report, pt was on oxycodone, changed to morphine not effective. h/o cva/aphasia?? Your Diagnosis General medical Hidradenitis suppurativa Intractable pain Tests Performed Below is a partial list of the tests performed during your hospitalization. You may have had other tests and procedures not included in this list. Please discuss all test results with your provider. Basic Metabolic Panel BUN CBC CBC w/ Differential Comprehensive Metabolic Panel Creatinine CRP Electrolytes ESR CT Abd/Pelvis W/ IV Contrast Only BUN?? Basic Metabolic Panel?? C Reactive Protein (CRP)?? CBC?? CBC w/ Differential?? CT Abd/Pelvis W/ IV Contrast Only?? Comprehensive Metabolic Panel?? Creatinine?? Electrolytes?? Sedimentation Rate (ESR)?? Primary Care Provider Derek Tomas MD? Advance Directive Health Care Proxy on File Yes - Health Care Proxy Discharge Vitals Temperature: 98.4 DegF Weight: 95.8 kg Pulse Rate: 73 bpm ?? Respiratory Rate: 18 br/min ?? Systolic Blood Pressure: 127 mm Hg ?? Diastolic Blood Pressure: 77 mm Hg ?? Oxygen Saturation: 100 % ?? Studies Pending All studies ordered during this hospital stay have been completed unless listed below. Please discuss all pending results with your provider listed above in these instructions. ?? No incomplete studies found?? What to do next Instructions From Your Doctor ?? Orders?? Scheduled Follow-Up Appointments Saturday 2:30 PM EDT ?? With: Derek Tomas MD Where: [address] [address]- Status: Pending Discharge Medications CHARISSE DAVID :1985 Visit Date:02/06/2024 Medications: Please continue your medications until treatment is completed or stopped by your provider. Medications not listed below should be discontinued. Discuss any questions related to medications with your provider. What How Much When Why Instructions Next Dose New Fentanyl (fentaNYL 25 mcg/ hr transdermal film, extended release) 1 patch(es) Topically Every 72 hours Duration: 7 Days Pickup at [facility]/pharmacy #[id number] 02/12/24?? 1100 am New Oxycodone (oxyCODONE 15 mg oral tablet) 1 tab(s) Oral Twice a day as needed for for pain Duration: 7 Days Pickup at [facility]/pharmacy #207 after 1130 pm if needed for pain per instruction Unchanged Acetaminophen (acetaminophen 500 mg oral tablet) 2 tab(s) Oral 3 times a day as needed for for pain as needed for pain per instruction Unchanged Amlodipine (amLODIPine 5 mg oral tablet) See instructions TAKE 1 TABLET BY MOUTH EVERY DAY ?? 02/11/24 Unchanged apixaban (Eliquis 5 mg oral tablet) 1 tab(s) Oral Twice a day 02/10/24?? 9pm Unchanged Ascorbic Acid (ascorbic acid 500 mg oral tablet) 1 tab(s) Oral Daily 02/11/24 Unchanged Baclofen (baclofen 20 mg oral tablet) 1 tab(s) Oral 4 times a day as needed for Pain , Mild as needed for pain per instruction Unchanged canakinumab (Ilaris 150 mg/ mL subcutaneous solution) 150 Milligram Subcutaneous Injection Every 28 days resume home monthly injection schedule Unchanged Cholecalciferol (Vitamin D3 1000 intl units oral tablet) 1 tab(s) Oral Daily 02/11/24 Unchanged Clindamycin Topical (clindamycin 1% topical gel) APPLY TO AFFECTED AREA TOPICALLY TWICE A DAY ?? 02/10/24 9 pm Unchanged Docusate (docusate sodium 100 mg oral capsule) 1 capsule Oral Twice a day 02/10/24?? 9 pm Unchanged Doxycycline (doxycycline monohydrate 100 mg oral capsule) 1 capsule Oral Every 12 hours Duration: 10 Days 02/10/24?? 11pm Unchanged Duloxetine (duloxetine 30 mg oral enteric coated capsule) 1 capsule Oral Twice a day Duration: 30 Days TAKE 1 CAPSULE BY MOUTH EVERY DAY ?? 02/10/24?? 9 pm Unchanged Durable Medical Equipment (Vashe wound solution) See instructions Hydradenitis Use 45mL daily ?? 02/11/24 Unchanged Ferrous Sulfate (ferrous sulfate 325 mg oral tablet) 1 tab(s) Oral Twice a day 02/10/24?? 9 pm Unchanged Folic Acid (folic acid 1 mg oral tablet) 1 tab(s) Oral Daily 02/11/24 Unchanged Gabapentin (gabapentin 400 mg oral capsule) 2 capsule Oral 3 times a day Duration: 30 Days Unchanged Hydroxyurea (hydroxyurea 500 mg oral capsule) 1 capsule Oral Daily 02/11/24 Unchanged nalOXONE (Narcan 4 mg/ 0.1 mL nasal spray) 1 spray(s) Nares, Both Once To be used use one spray in one nostril. if an additional dose is needed, alternate nostril. may repeat every 2 to 3 minutes until patient responds ?? if needed for opioid overdose Unchanged Pantoprazole (pantoprazole 40 mg oral delayed release tablet) 1 tab(s) Oral Daily 02/11/24 Unchanged Tizanidine (tiZANidine 2 mg oral tablet) 2 tab(s) Oral Every 8 hours as needed for as needed for muscle spasm as needed for muscle spasms Unchanged Triamcinolone Topical (triamcinolone 0.1% topical cream) 1 boyd Topically Twice a day *DO NOT APPLY TO OPEN WOUND(S)* ?? 02/10/24?? 9 pm Pharmacy Information [facility]/pharmacy #[id number]: [address], [place] [id number] [phone] ?? What How Much When Comments Stop Taking Morphine (morphine 30 mg/ 12 to 24 hr oral capsule, extended release) 1 capsule Oral Every 12 hours Duration: 7 Days Prescription Given During Visit Fentanyl (fentaNYL 25 mcg/hr transdermal film, extended release) - 1 patch, Topically, Every 72 hours, # 3 patch, 0 Refills, [facility]/pharmacy #207, [address] [place] [phone]?? Oxycodone (oxyCODONE 15 mg oral tablet) - 1 tablet = 15 mg, By Mouth, 2 times a day, # 18 tablet, 0Refills, [facility]/pharmacy #207, [address] [place] [phone]?? Laboratory Results Below is a partial list of the most recent Laboratory test results done prior to this discharge. You may have had other tests and procedures not included in this list. Please discuss all test resultswith your provider. Basic Metabolic Panel (02/07/2024) ???Sodium - 139 mmol/L???Potassium - 3.9 mmol/L???Chloride - 103 mmol/L???Bicarbonate Level - 25 mmol/L???Anion Gap - 11???Glucose Level - 93 mg/dL???BUN - 22 mg/dL???Creatinine-Blood - 0.94 mg/dL???Estimated GFR Creatinine - 107 ML/MIN/1.73 M2???Calcium - 8.9 mg/dL BUN (02/08/2024) ???BUN - 22 mg/dL CBC (02/08/2024) ???WBC - 6.9 k/mm3???RBC - 3.43 m/mm3???Hgb - 9.7 Gm/dL???Hct - 30.7 %???MCV - 89.5 femtoliters???MCH - 28.3 pg???MCHC - 31.6 Gm/dL???Platelet Count - 545 k/mm3???RDW-SD - 52.7 femtoliters???MPV - 8.6 femtoliters???Nucleated RBC (Automated) - 0.0 #/100 WBC'S???Abs. NRBC - 0.0 k/mm3 CBC w/ Differential (02/06/2024) ???WBC - 9.6 k/mm3???RBC - 3.68 m/mm3???Hgb - 10.4 Gm/dL???Hct - 34.1 %???MCV - 92.7 femtoliters???MCH - 28.3 pg???MCHC - 30.5 Gm/dL???Platelet Count - 584 k/mm3???RDW-SD - 55.9 femtoliters???MPV - 8.7 femtoliters???Nucleated RBC (Automated) - 0.0 #/100 WBC'S???Abs. NRBC - 0.0 k/mm3???Abs. Neut - 6.3 k/mm3???Abs. Lymph - 2.4 k/mm3???Abs. Carver - 0.7 k/mm3???Abs. Eo - 0.1 k/mm3???Abs. Baso - 0.0 k/mm3???Neut % - 66.0 %???Lymph % - 25.4 %???Carver % - 7.2 %???Eos % - 0.7 %???Baso % - 0.4 %???Imm Gran - 0.3 %???Abs. Imm Gran - 0.0 k/mm3 Comprehensive Metabolic Panel (02/06/2024) ???Sodium - 134 mmol/L???Potassium - 4.2 mmol/L???Chloride - 98 mmol/L???Bicarbonate Level - 27 mmol/L???Anion Gap - 9???Glucose Level - 86 mg/dL???BUN - 22 mg/dL???Creatinine-Blood - 0.81 mg/dL???Estimated GFR Creatinine - 116 ML/MIN/1.73 M2???Calcium - 9.1 mg/dL???Protein, Total - 7.5 Gm/dL???Albumin - 3.7 Gm/dL???AG Ratio - 1.0???Alkaline Phosphatase - 149 units/L???AST (SGOT) - 9 units/L???ALT (SGPT) - 6 units/L? ?Bilirubin, Total - <0.2 mg/dL Creatinine (02/08/2024) ???Creatinine-Blood - 0.87 mg/dL???Estimated GFR Creatinine - 114 ML/MIN/1.73 M2 CRP (02/06/2024) ???C-Reactive Protein - 1.3 mg/dL Electrolytes (02/08/2024) ???Sodium - 136 mmol/L???Potassium - 3.9 mmol/L???Chloride - 101 mmol/L???Bicarbonate Level - 25 mmol/L???Anion Gap - 10 ESR (02/06/2024) ???Sed Rate - 87 mm/hr You will be contacted within 72 hours with your results. Immunizations This Visit Given Vaccine Date influenza virus vaccine, inactivated 02/08/2024 Allergies (NKA means No Known Allergies) NKA [...] patient Date for Pt to Sign Valuables/Belongings: 02/07/24 09:53:00 ?? Other Discharge Information ? Case Management Discharge Plan?? Discharge Plan?? Discharge Agency Information?? Discharge Level of Care at Discharge: Homehealth/VNA Name of Agency #1: [facility] Discharge Transportation Arranged: [facility] [address] [facility] ??[phone] Agency [facility]: [phone] Discharge VNA/Hospice/Home Care: [facility] [phone] Service Categories #1: Fdc ?? Service Comments #1: You are returning home with resumed skilled services from [facility]. They have been notified of your discharge today, however, ??if you do not hear from them in 48 hours please call agency at [phone] ?? Pulmonary Rehab Status?? Pulmonary Rehab Discharge [...] are strongly encouraged to quit. Please call [facility] at [phone] or [phone]) or log in to [email or web address] for referrals to smoking cessation programs. ?? 988 Suicide & Crisis Lifeline is available 03/12 if you or someone you know needs to find a reason to keep living. By calling 988 you'll be connected to a skilled, trained counselor at a crisis center in your area. INPATIENT DISCHARGE INSTRUCTIONS SIGNATURE PAGE DAVID MCQUEEN Location:[facility] Registration Date and Time:02/06/2024 08:27 EDT Primary Care Physician: Derek Tomas MD, Attending Physician: Hossein PAGAN, Simone, I MCQUEENDAVID LAU, have received the above patient education materials/instructions and have verbalized understanding. If ambulance or transport services are being used I further acknowledge being given a choice of service. ?? If you need to contact me, please call me at this number: . 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 Signature: Relationship to Patient: Witness Name/Signature: Date: Patient Care team information Care Team Personnel Name: Rita Welch RN Position: [facility] RN Member Role: Primary Care Nurse Name: Sanna Cardozo RN Position: [facility] RN Member Role: Primary Care Nurse Name: Anu Lipscomb RN Position: [facility] RN Member Role: Primary Care Nurse Name: Jeanne Bryant RN Position: [facility] RN Member Role: Primary Care Nurse Name: Mitch Guido RN Position: [facility] RN Member Role: Primary Care Nurse Name: Areli Pittman RN Position: [facility] ED RN W/OE and Tasks Member Role: Primary Care Nurse Name: Albertina Kerr RN Position: [facility] RN Member Role: Primary Care Nurse Name: Derek Tomas MD Position: [facility] Resident Member Role: PCP Address: Address: [address] [place] [id number] Name: Mari Suh RN Position: [facility] RN Member Role: Primary Care Nurse Name: Jen Garibay RN Position: [facility] RN Member Role: Primary Care Nurse Name: Monique Irwin LPN Position: [facility] RN Member Role: Primary Care Nurse Name: Lianna Epstein RN Position: [facility] RN Member Role: Primary Care Nurse Name: Austin Wright RN Position: [facility] RN Member Role: Primary Care Nurse Name: Mk Knutson LPN Position: [facility] RN Member Role: Primary Care Nurse Name: Vicenta Barnett RN Position: [facility] RN Member Role: Primary Care Nurse Name: Betty Fonseca RN Position: [facility] RN Member Role: Primary Care Nurse Name: Farhana Garcia RN Position: [facility] RN Member Role: Primary Care Nurse Name: Kenyatta Villegas RN Position: [facility] RN Member Role: Primary Care Nurse Name: Albertina Adams RN Position: [facility] RN Member Role: Primary Care Nurse Name: Love Franklin RN Position: [facility] RN Member Role: Primary Care Nurse Name: Ricardo Russell RN Position: [facility] RN Member Role: Primary Care Nurse Name: Gissell Jernigan RN Position: [facility] RN Member Role: Primary Care Nurse Name: Farhana Green RN Position: [facility] RN Member Role: Primary Care Nurse Name: Cydney Delgado RN Position: [facility] RN Member Role: Primary Care Nurse Name: Debbie Rios RN Position: [facility] RN Member Role: Primary Care Nurse Name: Sharon Mendez RN Position: [facility] RN Member Role: Primary Care Nurse Name: Mookie Christianson RN Position: [facility] RN Member Role: Primary Care Nurse Name: Ally Boyd RN Position: [facility] RN Member Role: Primary Care Nurse Name: Javed Oneill RN Position: [facility] RN Member Role: Primary Care Nurse Name: Frances Quach RN Position: [facility] RN Member Role: Primary Care Nurse Name: Sandie Mejia RN Position: [facility] RN Member Role: Primary Care Nurse Name: Kriss Castillo RN Position: [facility] RN Member Role: Primary Care Nurse Name: Lynn Stewart RN Position: [facility] RN Member Role: Primary Care Nurse Name: Amanda Johnson RN Position: [facility] RN Member Role: Primary Care Nurse Name: Jolie Villalobos RN Position: [facility] RN Member Role: Primary Care Nurse Name: Axel Savage RN Position: [facility] RN Member Role: Primary Care Nurse Name: Dirk Driver RN Position: [facility] RN Member Role: Primary Care Nurse Name: Glenys Bee RN Position: [facility] RN Member Role: Primary Care Nurse Name: Praveen Maurer RN Position: [facility] RN Member Role: Primary Care Nurse Name: Filemon King RN Position: [facility] RN Member Role: Primary Care Nurse Name: Gomez Corona RN Position: [facility] RN Member Role: Primary Care Nurse Name: Lauren Guevara RN Position: [facility] RN Member Role: Primary Care Nurse Name: Annamaria Quinn RN Position: [facility] RN Member Role: Primary Care Nurse Name: Deana Short RN Position: [facility] RN Member Role: Primary Care Nurse Name: Lashawn Nagy RN Position: [facility] RN Member Role: Primary Care Nurse Name: Rhonda Tate LPN Position: [facility] RN Member Role: Primary Care Nurse Name: Jacquelin Naranjo RN Position: [facility] RN Member Role: Primary Care Nurse Name: Radha Jain RN Position: [facility] RN Member Role: Primary Care Nurse Name: Glenys Fox RN Position: [facility] RN Member Role: Primary Care Nurse Name: Reilly Moreno RN Position: S RN Member Role: Primary Care Nurse Care Team Related Persons Name: BEVERLY REYNAGA Address: [address] [place] [address] Name: HEENA MCQUEEN Address: [address] [place] [address] Name: AISLINN DE LA PAZ Address: home [address] [place] [id number]
--- OUTSIDE RECORDS SUMMARY | 2024-03-09 23:46 | XMS_ITS | Continuity of Care Document ---
Author Organization [facility] Address [address] [place] [address]- Care Team Providers Care Project Coordinator Name Role Phone Genoveva PAGAN, Derek Primary Care Physician Encounter [facility] Date(s): 01/11/24 - 02/10/[address] [address]- Allergies, Adverse Reactions, Alerts No Known Allergies [...] 05/12/2415:40:00 EST, 10/25/23 15:40:00 EDT, Tablet, [id number], Partial fill upon patient request if the prescription is for a schedule II opioid drug... Start Date: 10/25/23 Stop Date: 05/12/24 Status: Ordered amLODIPine 5 mg oral tablet See Instructions, TAKE 1 TABLET BY MOUTH EVERY DAY, # 30 tablet, 10 Refills, Maintenance, 01/11/24 12:18:00 EDT, [facility], 193.8, cm, 01/04/24 1:02:00 EDT, Height, 90.72, kg, 01/04/24 1:02:00 EDT, Dry Weight Start Date: 01/11/24 Status: Ordered ascorbic acid 500 mg oral tablet 1 tablet = 500 mg, By Mouth, Daily, # 30 tablet, 0 Refills, Maintenance, 09/06/23 12:42:00 EDT, Tablet, [facility]/pharmacy #[id number], Partial [...] Refills, Maintenance, 09/03/23 17:44:00 EDT, [facility], 193, cm, 09/03/23 14:09:00 EDT, Height, 91.4, kg, 08/30/23 12:03:00 EDT, Dry Weight Start Date: 09/03/23 Status: Ordered doxycycline monohydrate 100 mg oral capsule 1 capsule = 100 mg, By Mouth, Every 12 hours, for 10 days, # 20 capsule, 0 Refills, Acute 02/13/24 9:45:00 EDT, 02/03/24 9:45:00 EDT, Capsule, [facility], Partial fill upon patient [...] 10/16/23 15:51:00 EDT, [facility], 193, cm, 10/04/23 3:49:00 EDT, Height, 90.4, [...] Maintenance,02/03/24 9:55:00 EDT, Route to Pharmacy Electronically, [facility], Partial fill uponpatient request if the prescription is for a schedu... Start Date: 02/03/24 Stop Date: 03/04/24 Status: Ordered hydroxyurea 500 mg oral capsule 1 capsule, By Mouth, Daily, # 30 capsule, 0 Refills, Maintenance, 12/11/23 14:15:00 EDT, [facility], 194, cm, 11/20/23 13:14:00 EDT, Height, 93.9, [...] to Pharmacy Electronically, [facility]/pharmacy #[id number], Partial fill upon patient request if the [...] 0 Refills, Maintenance, 07/16/23 10:05:00 EST, Tablet, [facility], Partial fill upon patient [...] Team Personnel Name: Rita Welch RN Position: [facility] RN Member Role: Primary Care Nurse Name: Sanna Cardozo RN Position: [facility] RN Member Role: Primary Care Nurse Name: Anu Lipscomb RN Position: [facility] RN Member Role: Primary Care Nurse Name: Jeanne Bryant RN Position: [facility] RN Member Role: Primary Care Nurse Name: Mitch Guido RN Position: [facility] RN Member Role: Primary Care Nurse Name: Areli Pittman RN Position: [facility] ED RN W/OE and Tasks Member Role: Primary Care Nurse Name: Albertina Kerr RN Position: [facility] RN Member Role: Primary Care Nurse Name: Derek Tomas MD Position: [facility] Resident Member Role: PCP Address: Address: [address] [place] [id number]- Name: Mari Suh RN Position: [facility] RN Member Role: Primary Care Nurse Name: Jen Garibay RN Position: [facility] RN Member Role: Primary Care Nurse Name: Monique Irwin LPN Position: [facility] RN Member Role: Primary Care Nurse Name: Lianna Epstein RN Position: [facility] RN Member Role: Primary Care Nurse Name: Austin Wright RN Position: [facility] RN Member Role: Primary Care Nurse Name: Mk Knutson LPN Position: [facility] RN Member Role: Primary Care Nurse Name: Vicenta Barnett RN Position: [facility] RN Member Role: Primary Care Nurse Name: Betty Fonseca RN Position: [facility] RN Member Role: Primary Care Nurse Name: Farhana Garcia RN Position: [facility] RN Member Role: Primary Care Nurse Name: Kenyatta Villegas RN Position: [facility] RN Member Role: Primary Care Nurse Name: Albertina Adams RN Position: [facility] RN Member Role: Primary Care Nurse Name: Love Franklin RN Position: [facility] RN Member Role: Primary Care Nurse Name: Ricardo Russell RN Position: [facility] RN Member Role: Primary Care Nurse Name: Gissell Jernigan RN Position: [facility] RN Member Role: Primary Care Nurse Name: Farhana Green RN Position: [facility] RN Member Role: Primary Care Nurse Name: Cydney Delgado RN Position: [facility] RN Member Role: Primary Care Nurse Name: Debbie Rios RN Position: [facility] RN Member Role: Primary Care Nurse Name: Sharon Mendez RN Position: [facility] RN Member Role: Primary Care Nurse Name: Mookie Christianson RN Position: [facility] RN Member Role: Primary Care Nurse Name: Ally Boyd RN Position: [facility] RN Member Role: Primary Care Nurse Name: Javed Oneill RN Position: [facility] RN Member Role: Primary Care Nurse Name: Frances Quach RN Position: [facility] RN Member Role: Primary Care Nurse Name: Sandie Mejia RN Position: [facility] RN Member Role: Primary Care Nurse Name: Kriss Castillo RN Position: [facility] RN Member Role: Primary Care Nurse Name: Lynn Stewart RN Position: [facility] RN Member Role: Primary Care Nurse Name: Amanda Johnson RN Position: [facility] RN Member Role: Primary Care Nurse Name: Jolie Villalobos RN Position: [facility] RN Member Role: Primary Care Nurse Name: Axel Savage RN Position: [facility] RN Member Role: Primary Care Nurse Name: Dirk Driver RN Position: [facility] RN Member Role: Primary Care Nurse Name: Glenys Bee RN Position: [facility] RN Member Role: Primary Care Nurse Name: Praveen Maurer RN Position: [facility] RN Member Role: Primary Care Nurse Name: Filemon King RN Position: [facility] RN Member Role: Primary Care Nurse Name: Gomez Corona RN Position: [facility] RN Member Role: Primary Care Nurse Name: Lauren Guevara RN Position: [facility] RN Member Role: Primary Care Nurse Name: Annamaria Quinn RN Position: [facility] RN Member Role: Primary Care Nurse Name: Deana Short RN Position: [facility] RN Member Role: Primary Care Nurse Name: Lashawn Nagy RN Position: [facility] RN Member Role: Primary Care Nurse Name: Rhonda Tate LPN Position: [facility] RN Member Role: Primary Care Nurse Name: Jacquelin Naranjo RN Position: [facility] RN Member Role: Primary Care Nurse Name: Radha Jain RN Position: [facility] RN Member Role: Primary Care Nurse Name: Glenys Fox RN Position: [facility] RN Member Role: Primary Care Nurse Name: Reilly Moreno RN Position: [facility] RN Member Role: Primary Care Nurse Care Team Related Persons Name: JUHI BEVERLY Address: [address], [place] Name: HEENA MCQUEEN Address: [address] [place], [place] Name: AISLINN DE LA PAZ Address: [address] [address]
--- OUTSIDE RECORDS SUMMARY | 2024-03-09 23:47 | XMS_ITS | Continuity of Care Document ---
Author Organization [facility] Address [address] [place] [id number]- Care Team Providers Care Buyer Tobacco Head Name Role Phone Not on Staff, PCP Primary Care Physician Unavail able Encounter [facility] Date(s): 12/30/23 - 01/29/[address] [address]- Allergies, Adverse Reactions, Alerts No Known Allergies [...] Refills, Maintenance, 01/11/24 12:18:00 EDT, [facility], 193.8, cm, 01/04/24 1:02:00 EDT, Height, 90.72, [...] Refills, Maintenance, 09/03/23 17:44:00 EDT, [facility], 193, cm, 09/03/23 14:09:00 EDT, Height, 91.4, [...] 0 Refills, Maintenance, 10/16/23 15:51:00 EDT, [facility], 193, cm, 10/04/23 3:49:00 EDT, Height, 90.4, [...] Refills, Maintenance, 12/11/23 14:15:00 EDT, [facility], 194, cm, 11/20/23 13:14:00 EDT, Height, 93.9, [...] 02/05/24 13:26:00 EDT, 01/22/24 13:26:00 EDT, Tablet, [facility], Partial fill upon patient request if the prescription is for... Start Date: 01/22/24 Stop Date: 02/05/24 Status: Ordered oxyCODONE 30 mg IR tablet 1 tablet = 30 mg, By Mouth, Every 6 hours, PRN as needed for pain, for 28 days, # 112 tablet, 0 Refills, Acute 02/07/24 7:02:00 EDT, 01/10/24 7:02:00 EDT, Tablet, [facility]/pharmacy #[id number], Partial fill upon patient request if the prescription is for a sched... Start Date: 01/10/24 Stop Date: 02/07/24 Status: Ordered oxyCODONE 30 mg oral tablet 1 tablet = 30 mg, By Mouth, Every 6 hours, PRN as needed for pain, # 56 tablet, 0 Refills, Maintenance, 01/04/24 2:45:00 EDT, Tablet, [facility], Partial fill upon patient [...] Electronically, [facility]/pharmacy #[id number], Partial [...] 0 Refills, Maintenance, 07/16/23 10:05:00 EST, Tablet, [facility], Partial fill upon patient [...] Team Personnel Name: Rita Welch RN Position: [facility] RN Member Role: Primary Care Nurse Name: Sanna Cardozo RN Position: [facility] RN Member Role: Primary Care Nurse Name: Anu Lipscomb RN Position: S RN Member Role: Primary Care Nurse Name: Jeanne Bryant RN Position: S RN Member Role: Primary Care Nurse Name: Mitch Guido RN Position: [facility] RN Member Role: Primary Care Nurse Name: Areli Pittman RN Position: [facility] ED RN W/OE and Tasks Member Role: Primary Care Nurse Name: Albertina Kerr RN Position: [facility] RN Member Role: Primary Care Nurse Name: Mari Suh RN Position: [facility] RN Member Role: Primary Care Nurse Name: Jen Garibay RN Position: [facility] RN Member Role: Primary Care Nurse Name: Monique Irwin LPN Position: [facility] RN Member Role: Primary Care Nurse Name: Lianna Epstein RN Position: [facility] RN Member Role: Primary Care Nurse Name: Austin Wright RN Position: [facility] RN Member Role: Primary Care Nurse Name: Mk Knutson LPN Position: [facility] RN Member Role: Primary Care Nurse Name: Vicenta Barnett RN Position: [facility] RN Member Role: Primary Care Nurse Name: Betty Fonseca RN Position: [facility] RN Member Role: Primary Care Nurse Name: Farhana Garcia RN Position: [facility] RN Member Role: Primary Care Nurse Name: Kenyatta Villegas RN Position: [facility] RN Member Role: Primary Care Nurse Name: Albertina Adams RN Position: [facility] RN Member Role: Primary Care Nurse Name: Ricardo Russell RN Position: [facility] RN Member Role: Primary Care Nurse Name: Gissell Jernigan RN Position: [facility] RN Member Role: Primary Care Nurse Name: Farhana Green RN Position: [facility] RN Member Role: Primary Care Nurse Name: Cydney Delgado RN Position: [facility] RN Member Role: Primary Care Nurse Name: Debbie Rios RN Position: [facility] RN Member Role: Primary Care Nurse Name: Sharon Mendez RN Position: [facility] RN Member Role: Primary Care Nurse Name: Mookie Christianson RN Position: [facility] RN Member Role: Primary Care Nurse Name: Ally Boyd RN Position: [facility] RN Member Role: Primary Care Nurse Name: Javed Oneill RN Position: [facility] RN Member Role: Primary Care Nurse Name: Frances Quach RN Position: [facility] RN Member Role: Primary Care Nurse Name: Sandie Mejia RN Position: [facility] RN Member Role: Primary Care Nurse Name: Kriss Castillo RN Position: [facility] RN Member Role: Primary Care Nurse Name: Not on Staff, PCP Position: [facility] Physician (General Medicine) Member Role: PCP Name: Lynn Stewart RN Position: [facility] RN Member Role: Primary Care Nurse Name: Amanda Johnson RN Position: [facility] RN Member Role: Primary Care Nurse Name: Jolie Villalobos RN Position: [facility] RN Member Role: Primary Care Nurse Name: Axel Savage RN Position: [facility] RN Member Role: Primary Care Nurse Name: Dirk Driver RN Position: [facility] RN Member Role: Primary Care Nurse Name: Glenys Bee RN Position: [facility] RN Member Role: Primary Care Nurse Name: Praveen Maurer RN Position: [facility] RN Member Role: Primary Care Nurse Name: Filemon King RN Position: [facility] RN Member Role: Primary Care Nurse Name: Gomez Corona RN Position: [facility] RN Member Role: Primary Care Nurse Name: Lauren Guevara RN Position: [facility] RN Member Role: Primary Care Nurse Name: Annamaria Quinn RN Position: [facility] RN Member Role: Primary Care Nurse Name: Deana Short RN Position: [facility] RN Member Role: Primary Care Nurse Name: Lashawn Nagy RN Position: [facility] RN Member Role: Primary Care Nurse Name: Rhonda Tate LPN Position: [facility] RN Member Role: Primary Care Nurse Name: Jacquelin Naranjo RN Position: [facility] RN Member Role: Primary Care Nurse Name: Glenys Fox RN Position: [facility] RN Member Role: Primary Care Nurse Name: Reilly Moreno RN Position: [facility] RN Member Role: Primary Care Nurse Care Team Related Persons Name: JUHI BEVERLY Address: home [address] [place], [place] Name: HEENA MCQUEEN Address: home [address] [place], [place] Name: AISLINN DE LA PAZ Address: [address] [address]
--- OUTSIDE RECORDS SUMMARY | 2024-03-09 23:47 | XMS_ITS | Continuity of Care Document ---
Author Organization [facility] Address [address] [place] [address]- Care Team Providers Care Supervisor Data Processing Name Role Phone Derek Tomas MD Primary Care Physician Encounter [facility] Date(s): 02/05/24 - 03/07/[address] [address]- Attending Physician: Frances Flowers MD Admitting Physician: Frances Flowers MD Allergies, Adverse Reactions, Alerts No Known [...] Acute 05/12/2415:40:00 EST, 10/25/23 15:40:00 EDT, Tablet, [facility]/pharmacy #[id number], Partial fill upon patient request if the prescription is for a schedule II opioid drug... Start Date: 10/25/23 Stop Date: 05/12/24 Status: Ordered amLODIPine 5 mg oral tablet See Instructions, TAKE 1 TABLET BY MOUTH EVERY DAY, # 30 tablet, 10 Refills, Maintenance, 01/11/24 12:18:00 EDT, [facility], 193.8, cm, 01/04/24 1:02:00 EDT, Height, 90.72, kg, 01/04/24 1:02:00 EDT, Dry Weight Start Date: 01/11/24 Status: Ordered ascorbic acid 500 mg oral tablet 1 tablet = 500 mg, By Mouth, Daily, # 30 tablet, 0 Refills, Maintenance, 09/06/23 12:42:00 EDT, Tablet, [facility]/pharmacy #[id number], Partial fill upon patient request if [...] Refills, Maintenance, 09/03/23 17:44:00 EDT, [facility], 193, cm, 09/03/23 14:09:00 EDT, Height, 91.4, kg, 08/30/23 12:03:00 EDT, Dry Weight Start Date: 09/03/23 Status: Ordered duloxetine 30 mg oral enteric coated capsule 1 capsule = 30 mg, By Mouth, 2 times a day, TAKE 1 CAPSULE BY MOUTH EVERY DAY, # 60 capsule, 6 Refills, Maintenance, 10/25/23 15:39:00 EDT, Capsule, [facility]/pharmacy #[id number], Partial fill upon patient request if [...] 0 Refills, Maintenance, 10/16/23 15:51:00 EDT, [facility], 193, cm, 10/04/23 3:49:00 EDT, Height, 90.4, [...] Maintenance,02/03/24 9:55:00 EDT, Route to Pharmacy Electronically, [facility], Partial fill uponpatient request if the prescription is for a schedu... Start Date: 02/03/24 Stop Date: 03/04/24 Status: Ordered hydroxyurea 500 mg oral capsule 1 capsule, By Mouth, Daily, # 30 capsule, 0 Refills, Maintenance, 12/11/23 14:15:00 EDT, [facility], 194, cm, 11/20/23 13:14:00 EDT, Height, 93.9, [...] 0 Refills, Soft Stop, 08/23/23 15:54:00 [facility] Start Date: 08/23/23 Status: Ordered pantoprazole 40 [...] 08/12/23 13:51:00 EDT, Route to Pharmacy Electronically, [facility]/pharmacy #[id number], Partial fill upon patient request if the [...] 0 Refills, Maintenance, 07/16/23 10:05:00 EST, Tablet, [facility], Partial fill upon patient request if the prescription is for a schedule II opioid drug., 182, cm, 07/04/23 14:56:00 EST,... Start Date: 07/16/23 Status: Ordered Problem List Condition Confirmation Course Effective Dates Status H ealt Status Informant Chronic ischemic left ICA stroke [...] Team Personnel Name: Rita Welch RN Position: [facility] RN Member Role: Primary Care Nurse Name: Sanna Cardozo RN Position: [facility] RN Member Role: Primary Care Nurse Name: Anu Lipscomb RN Position: [facility] RN Member Role: Primary Care Nurse Name: Jeanne Bryant RN Position: [facility] RN Member Role: Primary Care Nurse Name: Mitch Guido RN Position: [facility] RN Member Role: Primary Care Nurse Name: Areli Pittman RN Position: [facility] [place] RN W/OE and Tasks Member Role: Primary Care Nurse Name: Albertina Kerr RN Position: [facility] RN Member Role: Primary Care Nurse Name: Derek Tomas MD Position: [facility] Resident Member Role: PCP Address: Address: [address] [place] [address] Name: Mari Suh RN Position: [facility] RN Member Role: Primary Care Nurse Name: Jen Garibay RN Position: [facility] RN Member Role: Primary Care Nurse Name: Shadia Grover RN Position: [facility] RN Member Role: Primary Care Nurse Name: Monique Irwin LPN Position: [facility] RN Member Role: Primary Care Nurse Name: Lianna Epstein RN Position: [facility] RN Member Role: Primary Care Nurse Name: Austin Wright RN Position: [facility] RN Member Role: Primary Care Nurse Name: Mk Knutson LPN Position: [facility] RN Member Role: Primary Care Nurse Name: Vicenta Barnett RN Position: [facility] RN Member Role: Primary Care Nurse Name: Farhana Garcia RN Position: [facility] RN Member Role: Primary Care Nurse Name: Kenyatta Villegas RN Position: [facility] RN Member Role: Primary Care Nurse Name: Albertina Adams RN Position: [facility] RN Member Role: Primary Care Nurse Name: Jada Bolton RN Position: [facility] RN Member Role: Primary Care Nurse Name: Love Franklin RN Position: [facility] RN Member Role: Primary Care Nurse Name: Ricardo Russell RN Position: [facility] RN Member Role: Primary Care Nurse Name: Gissell Jernigan RN Position: [facility] RN Member Role: Primary Care Nurse Name: Farhana Green RN Position: [facility] RN Member Role: Primary Care Nurse Name: Cydney Delgado RN Position: [facility] RN Member Role: Primary Care Nurse Name: Debbie Rios RN Position: [facility] RN Member Role: Primary Care Nurse Name: Sharon Mendez RN Position: [facility] RN Member Role: Primary Care Nurse Name: Ally Boyd RN Position: [facility] RN Member Role: Primary Care Nurse Name: Javed Oneill RN Position: [facility] RN Member Role: Primary Care Nurse Name: Frances Quach RN Position: [facility] RN Member Role: Primary Care Nurse Name: Sandie Mejia RN Position: [facility] RN Member Role: Primary Care Nurse Name: Kriss Castillo RN Position: [facility] RN Member Role: Primary Care Nurse Name: Lynn Stewart RN Position: [facility] RN Member Role: Primary Care Nurse Name: Amanda Johnson RN Position: [facility] RN Member Role: Primary Care Nurse Name: Jolie Villalobos RN Position: [facility] RN Member Role: Primary Care Nurse Name: Axel Savage RN Position: [facility] RN Member Role: Primary Care Nurse Name: Dirk Driver RN Position: [facility] RN Member Role: Primary Care Nurse Name: Glenys Bee RN Position: [facility] RN Member Role: Primary Care Nurse Name: Praveen Maurer RN Position: [facility] RN Member Role: Primary Care Nurse Name: Filemon King RN Position: [facility] RN Member Role: Primary Care Nurse Name: Gomez Corona RN Position: [facility] RN Member Role: Primary Care Nurse Name: Lauren Guevara RN Position: [facility] RN Member Role: Primary Care Nurse Name: Annamaria Quinn RN Position: [facility] RN Member Role: Primary Care Nurse Name: Deana Short RN Position: [facility] RN Member Role: Primary Care Nurse Name: Lashawn Nagy RN Position: [facility] RN Member Role: Primary Care Nurse Name: Rhonda Tate LPN Position: [facility] RN Member Role: Primary Care Nurse Name: Jacquelin Naranjo RN Position: S RN Member Role: Primary Care Nurse Name: Radha Jain RN Position: S RN Member Role: Primary Care Nurse Name: Glenys Fox RN Position: [facility] RN Member Role: Primary Care Nurse Name: Reilly Moreno RN Position: [facility] RN Member Role: Primary Care Nurse Care Team Related Persons Name: BEVERLY REYNAGA Address: [address] [place] [address] Name: HEENA MCQUEEN Address: [address] [place] [address] Name: AISLINN DE LA PAZ Address: home [address] [place] [address]
--- OUTSIDE RECORDS SUMMARY | 2024-03-09 23:47 | XMS_ITS | Continuity of Care Document ---
Author Organization [facility] Address [address] [place] [address]- Care Team Providers Care Pediatric Ophthalmologist Name Role Phone Genoveva PAGAN, Derek Primary Care Physician Encounter [facility] Date(s): 12/25/23 - 01/24/[address] [address]- Allergies, Adverse Reactions, Alerts No Known Allergies Immunizations Given and Recorded Vaccine Date Status Refusal Reason influenza virus vaccine, inactivated 05/18/22 Give n tetanus/diphtheria/pertussis, acel(Tdap) 09/13/19 Recorded Medications acetaminophen 500 mg oral tablet 2 tablet = 1,000 mg, By Mouth, 3 times a day, PRN for pain, # 100 tablet, 6 Refills, Acute 05/12/2415:40:00 EST, 10/25/23 15:40:00 EDT, [facility], [id number], Partial fill upon patient request if the prescription is for a schedule II opioid drug... Start Date: 10/25/23 Stop Date: 05/12/24 Status: Ordered amLODIPine 5 mg oral tablet See Instructions, TAKE 1 TABLET BY MOUTH EVERY DAY, # 30 tablet, 10 Refills, Maintenance, 01/11/24 12:18:00 EDT, [facility], 193.8, cm, 01/04/24 1:02:00 EDT, Height, 90.72, [...] Electronically, [facility]/pharmacy #[id number], 182, cm, 07/26/23 [...] Refills, Maintenance, 09/03/23 17:44:00 EDT, [facility], 193, cm, 09/03/23 14:09:00 EDT, Height, 91.4, kg, 08/30/23 12:03:00 EDT, Dry Weight Start Date: 09/03/23 Status: Ordered duloxetine 30 mg oral enteric coated capsule 1 capsule = 30 mg, By Mouth, 2 times a day, TAKE 1 CAPSULE BY MOUTH EVERY DAY, # 60 capsule, 6 Refills, Maintenance, 10/25/23 15:39:00 EDT, Capsule, [facility]/pharmacy #[id number], Partial [...] 0 Refills, Maintenance, 10/16/23 15:51:00 EDT, [facility], 193, cm, 10/04/23 3:49:00 EDT, Height, 90.4, [...] Refills, Maintenance, 08/12/23 13:51:00EDT, Tablet, [facility]/pharmacy #[id number], Partial fill upon patient request if the prescription is for a schedule II opioid drug., 182, cm, 07/26/23 9:16:00 EDT... Start Date: 08/12/23 Status: Ordered hydroxyurea 500 mg oral capsule 1 capsule, By Mouth, Daily, # 30 capsule, 0 Refills, Maintenance, 12/11/23 14:15:00 EDT, [facility], 194, cm, 11/20/23 13:14:00 EDT, Height, 93.9, [...] Baydaniel... Start Date: 08/23/23 Status: Ordered oxyCODONE 30 mg IR tablet 1 tablet = 30 mg, By Mouth, 2 times a day, PRN as needed for pain, for 14 days, # 28 tablet, 0 Refills, Acute 02/05/24 13:26:00 EDT, 01/22/24 13:26:00 EDT, Tablet, [facility], Partial fill upon patient request if the prescription is for... Start Date: 01/22/24 Stop Date: 02/05/24 Status: Ordered oxyCODONE 30 mg IR tablet 1 tablet = 30 mg, By Mouth, Every 6 hours, PRN as needed for pain, for 28 days, # 112 tablet, 0 Refills, Acute 02/07/24 7:02:00 EDT, 01/10/24 7:02:00 EDT, Tablet, [facility]/pharmacy #[id number], Partial fill upon patient request if the prescription is for a sched... Start Date: 01/10/24 Stop Date: 02/07/24 Status: Ordered oxyCODONE 30 mg oral tablet 1 tablet = 30 mg, By Mouth, Every 6 hours, PRN as needed for pain, # 56 tablet, 0 Refills, Maintenance, 01/04/24 2:45:00 EDT, Tablet, [facility], Partial [...] Tablet, [facility], Partial fill upon patient [...] Care Nurse Name: Areli Pittman RN Position: [facility] ED RN W/OE and Tasks Member Role: Primary Care Nurse Name: Albertina Kerr RN Position: [facility] RN Member Role: Primary Care Nurse Name: Derek Tomas MD Position: [facility] Resident Member Role: PCP Address: Address: [address] [place] [address] Name: Mari Suh RN Position: [facility] RN Member Role: Primary Care Nurse Name: Jen Garibay RN Position: [facility] RN Member Role: Primary Care Nurse Name: Monique Irwin LPN Position: [facility] RN Member Role: Primary Care Nurse Name: Lianna Epstein RN Position: [facility] RN Member Role: Primary Care Nurse Name: Austin Wright RN Position: [facility] RN Member Role: Primary Care Nurse Name: Mk Knutson LPN Position: [facility] RN Member Role: Primary Care Nurse Name: Vicenta Barnett RN Position: [facility] RN Member Role: Primary Care Nurse Name: Betty Fonseca RN Position: [facility] RN Member Role: Primary Care Nurse Name: Farhana Garcia RN Position: [facility] RN Member Role: Primary Care Nurse Name: Kenyatta Villegas RN Position: [facility] RN Member Role: Primary Care Nurse Name: Albertina Adams RN Position: [facility] RN Member Role: Primary Care Nurse Name: Ricardo Russell RN Position: [facility] RN Member Role: Primary Care Nurse Name: Gissell Jernigan RN Position: [facility] RN Member Role: Primary Care Nurse Name: Farhana Green RN Position: [facility] RN Member Role: Primary Care Nurse Name: Cydney Delgado RN Position: [facility] RN Member Role: Primary Care Nurse Name: Debbie Rios RN Position: [facility] RN Member Role: Primary Care Nurse Name: Sharon Mendez RN Position: [facility] RN Member Role: Primary Care Nurse Name: Mookie Christianson RN Position: [facility] RN Member Role: Primary Care Nurse Name: Ally Boyd RN Position: [facility] RN Member Role: Primary Care Nurse Name: Javed Oneill RN Position: [facility] RN Member Role: Primary Care Nurse Name: Frances Quach RN Position: [facility] RN Member Role: Primary Care Nurse Name: Sandie Mejia RN Position: [facility] RN Member Role: Primary Care Nurse Name: Kriss Castillo RN Position: [facility] RN Member Role: Primary Care Nurse Name: Lynn Stewart RN Position: [facility] RN Member Role: Primary Care Nurse Name: Amanda Johnson RN Position: [facility] RN Member Role: Primary Care Nurse Name: Jolie Villalobos RN Position: [facility] RN Member Role: Primary Care Nurse Name: Axel Savage RN Position: [facility] RN Member Role: Primary Care Nurse Name: Dirk Driver RN Position: [facility] RN Member Role: Primary Care Nurse Name: Glenys Bee RN Position: [facility] RN Member Role: Primary Care Nurse Name: Praveen Maurer RN Position: [facility] RN Member Role: Primary Care Nurse Name: Filemon King RN Position: [facility] RN Member Role: Primary Care Nurse Name: Gomez Corona RN Position: [facility] RN Member Role: Primary Care Nurse Name: Lauren Guevara RN Position: [facility] RN Member Role: Primary Care Nurse Name: Annamaria Quinn RN Position: [facility] RN Member Role: Primary Care Nurse Name: Deana Short RN Position: [facility] RN Member Role: Primary Care Nurse Name: Lashawn Nagy RN Position: [facility] RN Member Role: Primary Care Nurse Name: Rhonda Tate LPN Position: [facility] RN Member Role: Primary Care Nurse Name: Jacquelin Naranjo RN Position: [facility] RN Member Role: Primary Care Nurse Name: Glenys Fox RN Position: [facility] RN Member Role: Primary Care Nurse Name: Reilly Moreno RN Position: [facility] RN Member Role: Primary Care Nurse Care Team Related Persons Name: BEVERLY REYNAGA Address: home [address] [place], [place] Name: HEENA MCQUEEN Address: [address] [place], [place] Name: AISLINN DE LA PAZ Address: home [address] [place] [id number]
--- OUTSIDE RECORDS SUMMARY | 2024-03-09 23:49 | XMS_ITS | Continuity of Care Document ---
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 Role Phone Not on Staff, PCP Primary Care Physician Unavail able Encounter [facility] Date(s): 01/03/24 - 02/02/[address] [address]- Allergies, Adverse Reactions, Alerts No Known Allergies [...] Refills, Maintenance, 01/11/24 12:18:00 EDT, [facility], 193.8, cm, 01/04/24 1:02:00 EDT, Height, 90.72, [...] Refills, Maintenance, 09/03/23 17:44:00 EDT, [id number], 193, cm, 09/03/23 14:09:00 EDT, Height, 91.4, kg, 08/30/23 12:03:00 EDT, Dry Weight Start Date: 09/03/23 Status: Ordered duloxetine 30 mg oral enteric coated capsule 1 capsule = 30 mg, By Mouth, 2 times a day, TAKE 1 CAPSULE BY MOUTH EVERY DAY, # 60 capsule, 6 Refills, Maintenance, 10/25/23 15:39:00 EDT, Capsule, [facility]/pharmacy [...] 0 Refills, Maintenance, 10/16/23 15:51:00 EDT, [id number], 193, cm, 10/04/23 3:49:00 EDT, Height, 90.4, [...] capsule, 0 Refills, Maintenance, 12/11/23 14:15:00 EDT, [id number], 194, cm, 11/20/23 13:14:00 EDT, Height, 93.9, [...] 02/08/24 12:30:00 EDT, 02/01/24 12:30:00 EDT, Tablet, [facility], Partial fill upon patient request if the prescription is for a sche... Start Date: 02/01/24 Stop Date: 02/08/24 Status: Ordered morphine 30 mg/12 to 24 hr oral capsule, extended release 1 capsule = 30 mg, By Mouth, Every 12 hours, # 14 capsule, 0 Refills, Maintenance, 02/01/24 12:30:00 EDT, ER Capsule, [facility], Partial [...] 0 Refills, Soft Stop, 08/23/23 15:54:00 EDT, [facility]... Start Date: 08/23/23 Status: Ordered pantoprazole 40 [...] Pharmacy Electronically, [facility]/pharmacy #[id number], Partial fill upon patient request if the [...] 10:05:00 EST, Tablet, [facility], [...] Team Personnel Name: Rita Welch RN Position: [facility] RN Member Role: Primary Care Nurse Name: Sanna Cardozo RN Position: [facility] RN Member Role: Primary Care Nurse Name: Anu Lipscomb RN Position: [facility] RN Member Role: Primary Care Nurse Name: Jeanne Bryant RN Position: [facility] RN Member Role: Primary Care Nurse Name: Mitch Guido RN Position: [facility] RN Member Role: Primary Care Nurse Name: Areli Pittman RN Position: [facility] ED RN W/OE and Tasks Member Role: Primary Care Nurse Name: Albertina Kerr RN Position: [facility] RN Member Role: Primary Care Nurse Name: Mari Suh RN Position: [facility] RN Member Role: Primary Care Nurse Name: Jen Garibay RN Position: [facility] RN Member Role: Primary Care Nurse Name: Monique Irwin LPN Position: [facility] RN Member Role: Primary Care Nurse Name: Lianna Epstein RN Position: [facility] RN Member Role: Primary Care Nurse Name: Austin Wright RN Position: [facility] RN Member Role: Primary Care Nurse Name: Mk Knutson LPN Position: [facility] RN Member Role: Primary Care Nurse Name: Vicenta Barnett RN Position: [facility] RN Member Role: Primary Care Nurse Name: Betty Fonseca RN Position: [facility] RN Member Role: Primary Care Nurse Name: Farhana Garcia RN Position: [facility] RN Member Role: Primary Care Nurse Name: Kenyatta Villegas RN Position: [facility] RN Member Role: Primary Care Nurse Name: Albertina Adams RN Position: [facility] RN Member Role: Primary Care Nurse Name: Ricardo Russell RN Position: [facility] RN Member Role: Primary Care Nurse Name: Gissell Jernigan RN Position: [facility] RN Member Role: Primary Care Nurse Name: Farhana Green RN Position: [facility] RN Member Role: Primary Care Nurse Name: Cydney Delgado RN Position: [facility] RN Member Role: Primary Care Nurse Name: Debbie Rios RN Position: [facility] RN Member Role: Primary Care Nurse Name: Sharon Mendez RN Position: [facility] RN Member Role: Primary Care Nurse Name: Mookie Christianson RN Position: [facility] RN Member Role: Primary Care Nurse Name: Ally Boyd RN Position: [facility] RN Member Role: Primary Care Nurse Name: Javed Oneill RN Position: [facility] RN Member Role: Primary Care Nurse Name: Frances Quach RN Position: [facility] RN Member Role: Primary Care Nurse Name: Sandie Mejia RN Position: [facility] RN Member Role: Primary Care Nurse Name: Kriss Castillo RN Position: [facility] RN Member Role: Primary Care Nurse Name: Not on Staff, PCP Position: [facility] Physician (General Medicine) Member Role: PCP Name: Lynn Stewart RN Position: [facility] RN Member Role: Primary Care Nurse Name: Amanda Johnson RN Position: [facility] RN Member Role: Primary Care Nurse Name: Jolie Villalobos RN Position: [facility] RN Member Role: Primary Care Nurse Name: Axel Savage RN Position: [facility] RN Member Role: Primary Care Nurse Name: Dirk Driver RN Position: [facility] RN Member Role: Primary Care Nurse Name: Glenys Bee RN Position: [facility] RN Member Role: Primary Care Nurse Name: Praveen Maurer RN Position: [facility] RN Member Role: Primary Care Nurse Name: Filemon King RN Position: [facility] RN Member Role: Primary Care Nurse Name: Gomez Corona RN Position: [facility] RN Member Role: Primary Care Nurse Name: Lauren Guevara RN Position: [facility] RN Member Role: Primary Care Nurse Name: Annamaria Quinn RN Position: [facility] RN Member Role: Primary Care Nurse Name: Deana Short RN Position: [facility] RN Member Role: Primary Care Nurse Name: Lashawn Nagy RN Position: [facility] RN Member Role: Primary Care Nurse Name: Rhonda Tate LPN Position: [facility] RN Member Role: Primary Care Nurse Name: Jacquelin Naranjo RN Position: [facility] RN Member Role: Primary Care Nurse Name: Glenys Fox RN Position: [facility] RN Member Role: Primary Care Nurse Name: Reilly Moreno RN Position: [facility] RN Member Role: Primary Care Nurse Care Team Related Persons Name: JUHI BEVERLY Address: [address] [place], [place] Name: HEENA MCQUEEN Address: [address] [place], [place] Name: AISLINN DE LA PAZ Address: [address] [address]
--- OUTSIDE RECORDS SUMMARY | 2024-03-09 23:50 | XMS_ITS | Continuity of Care Document ---
Author Organization [facility] ter Address [address] [place] [id number]- Care Team Providers Care Sample Case Porter Name Role Phone Derek Tomas MD Primary Care Physician Encounter [facility] Date(s): 02/14/24 - 02/21/[address] [address]- Discharge Disposition: A-Transfer VNA/Home Health Attending Physician: Caleb PAGAN, [facility] Admitting Physician: Lowell Henry DO Referring Physician: Not on Staff, Referring [...] Acute 05/12/2415:40:00 EST, 10/25/23 15:40:00 EDT, Tablet, [facility]pharm[facility] #[id number], Partial fill upon patient request if the prescription is for a schedule II opioid drug... Start Date: 10/25/23 Stop Date: 05/12/24 Status: Ordered amLODIPine 5 mg oral tablet See Instructions, TAKE 1 TABLET BY MOUTH EVERY DAY, # 30 tablet, 10 Refills, Maintenance, 01/11/24 12:18:00 EDT, [id number], 193.8, cm, 01/04/24 1:02:00 EDT, Height, 90.72, kg, 01/04/24 1:02:00 EDT, Dry Weight Start Date: 01/11/24 Status: Ordered amLODIPine 5 mg oral tablet 5 mg, Tablet, By Mouth, 02/21/24 9:00:00 EDT Start Date: 02/21/24 Stop Date: 02/21/24 Status: Completed ascorbic acid 500 mg oral [...] Refills, Maintenance, 09/03/23 17:44:00 EDT, [facility], 193, cm, 09/03/23 14:09:00 EDT, Height, 91.4, [...] 0 Refills, Maintenance, 10/16/23 15:51:00 EDT, [facility], 193, cm, 10/04/23 3:49:00 EDT, Height, 90.4, [...] Maintenance,02/03/24 9:55:00 EDT, Route to Pharmacy Electronically, [facility], Partial fill uponpatient request if the prescription is for a schedu... Start Date: 02/03/24 Stop Date: 03/04/24 Status: Ordered hydroxyurea 500 mg oral capsule 1 capsule, By Mouth, Daily, # 30 capsule, 0 Refills, Maintenance, 12/11/23 14:15:00 EDT, [facility], 194, cm, 11/20/23 13:14:00 EDT, Height, 93.9, [...] days, # 12 tablet, 0 Refills, Acute 02/24/24 15:21:00 EDT, 02/21/24 15:21:00 EDT, Tablet, [facility] [facility], Partial fill upon patient request if the prescription is for a... Start Date: 02/21/24 Stop Date: 02/24/24 Status: Ordered oxyCODONE 30 mg IR tablet 1 tablet = 30 mg, By Mouth, Every 6 hours, PRN as needed for pain, for 14 days, # 56 tablet, 0 Refills, Acute 03/06/24 15:22:00 EDT, 02/21/24 15:22:00 EDT, Tablet, [facility] 3, Partial fill upon patient request if the prescription is for... Start Date: 02/21/24 Stop Date: 03/06/24 Status: Ordered oxyCODONE 5 mg oral tablet 30 mg, Tablet, By Mouth, Every 6 hours, PRN for Pain , Moderate, Routine, 02/15/24 6:00:00 EDT Start Date: 02/15/24 Stop Date: 02/22/24 Status: Discontinued pantoprazole 40 mg oral delayed [...] EDT, Route to Pharmacy Electronically, [facility]/pharmacy #[id number], Partial fill upon patient request if the [...] 0 Refills, Maintenance, 07/16/23 10:05:00 EST, Tablet, [facility], Partial [...] Exam Date Time Procedure Performing Provider Status 02/19/24 3:[address] Pelvis W/ Contrast Corie Brown; Auth (Verified) Notes: (CT Pelvis W/ Contrast) Reason For Exam: r/o buttock abscess;Other: RESULT: CT Pelvis W/ Contrast CT Pelvis W/ Contrast Reason: r o buttock abscess; Clinical Question(s): Abscess TECHNIQUE: Helical CT with IV contrast formatted in 3 planes. 100 cc of Omnipaque 300 was administered intravenously. Enteric contrast was not administered. Automatic tube modulation and/or iterativedose reconstruction were used to optimize exposure parameters. CTDIvol Body: 11.00 mGy, DLP Body: 479 mGy*cm. COMPARISON: Multiple priors, most recent CT abdomen and pelvis 02/06/2024 FINDINGS: Shop Girl View Findings, Lines and Tubes: None. Visualized bowel: Normal caliber bowel loops without acute surrounding inflammatory changes. Appendix: No evidence of acute appendicitis. Bladder: Unremarkable. Reproductive organs: Unremarkable. Peritoneum and retroperitoneum: No ascites or pneumoperitoneum. No omental or mesenteric lesions. Lymph nodes: Slight increase in right pelvic sidewall lymphadenopathy measuring up to 1.7 cm (201:57), previously 1.3 cm. Slight increase in right inguinal lymphadenopathy measuring up to 2.1 cm (201:69), previously 1.8 cm. Blood vessels: Normal. No evidence of venous thrombosis. Pelvic soft tissues: Unremarkable. Superficial soft tissues: Slight increase in edematous skin thickening of the right buttock extending into the superior right thigh. No evidence of associated drainable fluid collection or abscess. Bones: No acute abnormality. Status post fixation of the proximal left femur. Severe osteoarthritisof the left hip joint with associated bony proliferation. IMPRESSION: Compared to CT abdomen and pelvis 02/06/2024: 1. Slight increase in edematous skin thickening of the right buttock extending into the superior right thigh. No evidence of associated drainable fluid collection or abscess. 2. Slight increase in right pelvic sidewall and right inguinal lymphadenopathy, nonspecific, possibly reactive. Correlate clinically. I have personally reviewed the images and I agree with this report. WSN: [id number] Ordering Physician: Amador Perez Dictated By: Faiza Martinez MD Dictated Date/Time: 02/19/24 3:47 pm Reviewed By: Farhana Mendiola MD Signed By: Farhana Mendiola MD Signed Date/Time: 02/19/24 3:52 pm Transcribed By: ZEHRA Transcribed Date/Time: 02/19/24 3:40 pm Vital Signs Most recent to oldest [Reference Range]: 1 2 3 Height 192 cm (02/21/24 3:37 PM) 192 cm (02/21/24 8:20 AM) 192 cm (02/20/24 6:16 PM) Weight 99.0 kg (02/16/24 8:29 PM) Oxygen Saturation [94-100 %] 97 % (02/21/24 3:37 PM) 95 % (02/21/24 8:20 AM) 97 % (02/21/24 3:00 AM) Pulse Rate [55-90 bpm] 83 bpm (02/21/24 3:37 PM) 78 bpm (02/21/24 8:20 AM) 74 bpm (02/21/24 3:00 AM) Blood Pressure [90-138/55-84 mm Hg] 128/70mm Hg (02/21/24 3:37 PM) 118/66mm Hg (02/21/24 10:14 AM) 118/66mm Hg (02/21/24 8:20 AM) Respiratory Rate [16-30 br/min] 18 br/min (02/21/24 3:37 PM) 18 br/min (02/21/24 2:10 PM) 16 br/min (02/21/24 1:10 PM) Temperature [96.8-100.4 DegF] 97.9 DegF (02/21/24 3:37 PM) 98.2 DegF (02/21/24 8:20 AM) 98.4 DegF (02/21/24 3:00 AM) Mode of Delivery (Oxygen) Room air (02/21/24 3:37 PM) Room air (02/21/24 8:20 AM) Room air (02/21/24 3:00 AM) Blood pressure sites Arm, left (02/21/24 3:37 PM) Arm, left (02/21/24 8:20 AM) Arm, left (02/21/24 3:00 AM) Temperature Route Oral (02/21/24 3:37 PM) Oral (02/21/24 8:20 AM) Oral (02/21/24 3:00 AM) Social History Social History Type Response Smoking Status 5-9 cigarettes (betw een 1/4 to 1/2 pack)/day in last 30 days entered on: 05/16/22 Sex Consult note * Albertina Ordaz MD: PERFORM Event Display: Consultation Note Authored Date: [id number] Patient: ??DAVID GUZMÁN ? Age:??38 Years?Sex:??Male?:??1985?? History of Present Illness ?Requesting Attending/Provider: Dr. 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 ID was consulted for assistance with antibiotics in the settingof a wound infection.?? Mr. Guzmán has a longstanding history of what seems to be severe and not well-controlled hidradenitis suppurativa with multiple admissions in the past year for intractable pain secondary to this.?? He was last seen by ID for this issue during a prior admission in September, and at that point, he was felt to not have evidence of an active infection and was recommended that he est ablish care with dermatology for immunomodulatory treatment for management of his hidradenitis suppurativa.?? Most recently, he was admitted at [facility] from 02/05 through 02/09 with intractable pain due toright buttock hidradenitis suppurativa.?? He was prescribed doxycycline, which he completed on 02/11.?? He presented to the emergency department on 02/13 due to intractable pain.?? In the ED, his labs showed a WBC count of 9.0, creatinine of 0.8.?? He was admitted for further pain control and management.?? He was started on doxycycline on 02/15.?? A CT pelvis was obtained, which did not show any evidence of drainable fluid collections or abscess.?? He was assessed by general surgery, who noted ongoing gluteal hidradenitis suppurativa with extensive sinus tracts, induration, and inflammation, butno appreciable abscess or signs of infection.?? They recommended multidisciplinary management of hidradenitis suppurativa with dermatology but no need for surgical intervention.?? Currently, he complains of ongoing pain in his??right buttock??and??perirectal area. ??He denies any fevers, chills,??nausea, vomiting. 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 Review of Systems As per HPI, otherwise full review of systems negative Physical Exam Vitals & Measurements Vital Signs?? Temperature: 97.5 DegF (02/20/24 08:11:00) Temperature Route: Oral (02/20/24 08:11:00) Pulse Rate: 79 bpm (02/20/24 08:11:00) Respiratory Rate: 16 br/min (02/20/24 11:16:00) Systolic Blood Pressure:??143 mm Hg??High (02/20/24 08:57:00) Diastolic Blood Pressure: 66 mm Hg (02/20/24 08:57:00) Blood pressure sites: Arm, right (02/20/24 08:11:00) Mean Arterial Pressure: 92 mm Hg (02/20/24 08:11:00) Pulse Pressure: 77 mm Hg (02/20/24 08:11:00) Oxygen Saturation: 97 % (02/20/24 08:11:00) Mode of Delivery (Oxygen): Room air (02/20/24 03:00:00) Early Warning Score: 3 (02/20/24 11:21:33) Gen: Laying in bed, uncomfortable appearing, nontoxic Eyes: PERRL, EOM intact HENT: Oropharynx clear, MM moist, neck supple Resp: Breathing comfortably on room air GI: Normoactive BS, soft, NT, ND MSK: No joint swelling or effusion Skin:??Left gluteal region with a large, well-healed surgical excision scar.?? Right gluteal regionwith multiple draining sinus tracts and extensive skin induration.?? However, no appreciable fluctuance or significant erythema.?? Drainage serous to serosanguineous, no purulence noted Neuro:??Speech slow??due to expressive aphasia, right-sided hemiparesis ?? 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, chronic pain, who presented with severe pain on his right buttocks.??ID was consulted for assistance with antibiotics in the setting of a wound in fection.??Overall, this all appears secondary to hidradenitis suppurativa.??The wounds actually do not look actively??infected, and I do not think he would benefit from further antibiotics.??Hidradenitis suppurativa??is a chronic inflammatory process, not a primary infectious process.??While??the sinus tracts and wounds can become secondarily infected,??that does not appear to be the case here.??Sometimes antibiotics are used for??mild to moderate disease, but this is more for??anti-inflammatory effects.??The mainstay??antibiotic that is used is??a tetracycline, but??he has been on multiple courses of doxycycline??without??significant improvement, so I do not think additional doxycycline would be beneficial.??Ultimately, I think he needs a immunomodulatory therapy, such as adalimumab or infliximab.??I agree with general surgery's recommendation for multidisciplinary management between pl astic surgery and dermatology as he will probably also benefit from extensive surgical resection once his disease is under better control.??ID will sign off of inpatient following;??back with questions. -Wounds do not appear actively??infected -Recommend??against further antibiotic therapy -Recommend??outpatient??dermatology follow-up??and consideration of immunomodulatory therapy, such as adalimumab??or infliximab ?? ID will sign off; please call back with questions ?Albertina Ordaz MD, MPH ? Antibiotic History Active Antibiotics Calendar Day Last Administered First Administered Doxycycline??100 mg, By Mouth, Every 12 hours ?1 02/20/2024 11:18 02/20/2024 11:18 ? Stopped Antibiotics Stop Date/Time Last Administered First Administered Doxycycline??100 mg, 100 mL/hr, IVPB, Every 12 hours 02/20/2024 09:34 02/20/2024 02:55 02/16/2024 14:53 Allergies NKA Social History Alcohol Use: Never. Electronic Cigarette/Vaping Electronic Cigarette Use: Never. Substance Abuse Use: Current. Type: Marijuana. Tobacco Use: 5-9 cigarettes (between 1/4 to 1/2 pack)/day in last 30 days. Lab Results Test Name Test Result Date/Time WBC 7.2 k/mm3 02/20/2024 00:55 EDT Hgb 9.2 Gm/dL 02/20/2024 00:55 EDT Platelet Count 504 k/mm3 02/20/2024 00:55 EDT Sodium 133 mmol/L 02/20/2024 00:55 EDT Potassium 4.4 mmol/L 02/20/2024 00:55 EDT Chloride 100 mmol/L 02/20/2024 00:55 EDT Bicarbonate Level 25 mmol/L 02/20/2024 00:55 EDT Creatinine-Blood 0.93 mg/dL 02/20/2024 00:55 EDT Alkaline Phosphatase 148 units/L 02/20/2024 00:55 EDT AST (SGOT) 13 units/L 02/20/2024 00:55 EDT ALT (SGPT) 10 units/L 02/20/2024 00:55 EDT Bilirubin, Total <0.2 mg/dL 02/20/2024 00:55 EDT * Britta Carmen MD: MODIFY Britta Carmen MD: MODIFY Event Display: Consult Authored Date: [id number] Patient: ??DAVID GUZMÁN ? Age:??38 Years?Sex:??Male?:??1985?? Chief Complaint/Reason for Consult Right gluteal??hidradenitis History of Present Illness 38-year-old man who has significant history of CVA with residual right sided hemiparesis and expressive aphasia, on Eliquis, hidradenitis suppurativa of right buttocks, hypertension, depression, GERD, chronic continuous opiate use, multiple I&D's of right gluteal region most recently 08/21/23 for acutely infected tracts, excision of left??gluteal region??in 2022 recent admission me'ed 02/09 forsame right gluteal pain.?? Patient represented for ongoing right gluteal pain patient, denies any fever chills nausea vomiting chest pain shortness of breath. Physical Exam Vitals & Measurements T:??98.6?F?? HR:??93??(Peripheral)?? RR:??17?? BP:??116/51?? SpO2:??94%?? HT:??192??cm?? WT:??99.0??kg?? Constitutional: Alert, in no distress.?? Able to discuss, converse with simple answers Mental Status: Oriented to person, place and time. Respiratory: No increased work of breathing Cardiovascular: Regular rate Gastrointestinal: Abdomen soft,??nondistended nontender Neurologic: Right hemiparesis Skin: Left gluteal region prior surgical excision scar, ??right gluteal region with extensive induration, draining sinus tracts,??prior??surgical scars from incision and drainage??as seen in image, no appreciable fluctuance, or purulence, there is foul-smelling??serosanguineous drainage??from multiple tracks Assessment/Plan 38-year-old man who has significant history of CVA with residual right sided hemiparesis and expressive aphasia, anticoagulated on Eliquis, hidradenitis suppurativa of right buttocks, hypertension, depression, GERD, chronic continuous opiate use, multiple I&D's of right gluteal region most recently 08/21/23 for acutely infected tracts, excision of left??gluteal region??in 2022 recent admissiondc'ed 02/09 for same right gluteal pain.?Patient with ongoing right gluteal??hidradenitis,??extensive sinus tracts inflammation and induration, no appreciable abscess, no signs of systemic infection.?? CT scan negative for any appreciable fluid collections or abscess, only extensive induration/inflammation. ?? Recommendations No acute surgical intervention Shower daily Dry sterile dressing, Aquacel??to??open areas change daily??and as needed for soilage??to right gluteal region Outpatient follow-up??for hidradenitis,??recommend??multidisciplinary team with dermatology and plastic surgery??for elective excision?? Can follow-up outpatient with general surgery clinic as needed?? Surgery signing off ?? Case discussed with Dr. Carm[place] [id number] ?? Problem List/Past Medical History Ongoing Chronic ischemic [...] procedure on hip: 2000 Home Medications Acetaminophen: 1,000 mg = 2 tablet, By Mouth, 3 times a day, PRN (for pain) Amlodipine: See Instructions, TAKE 1 TABLET BY MOUTH EVERY DAY apixaban: 5 mg = 1 tablet, By Mouth, 2 times a day Ascorbic Acid: 500 mg = 1 tablet, By Mouth, Daily Baclofen: 20 mg = 1 tablet, By Mouth, 4 times a day, PRN (Pain , Mild) canakinumab: 150 mg, Subcutaneous Injection, Every 28 [...] wound solution): See Instructions, Use 45mL daily Fentanyl: 1 patch, Topically, Every 72 hours Ferrous Sulfate: 1 tablet, By Mouth, 2 times a day Folic Acid: 1 mg = 1 tablet, By Mouth, Daily Gabapentin: 800 mg = 2 capsule, By Mouth, 3 times a day Hydroxyurea: [...] WOUND(S)* Allergies NKA Social History Alcohol Use: Never. Electronic Cigarette/Vaping Electronic Cigarette Use: Never. Substance Abuse Use: Current. Type: Marijuana. Tobacco Use: 5-9 cigarettes (between 1/4 to 1/2 pack)/day in last 30 days. Family History Mother: Asthma Brother: Asthma Lab Results Labs Last 24 Hours No qualifying data available. Images ? Result type:?CT Pelvis W/ Contrast Result date:?February 19, 2024 15:16 EDT Result status:?Auth (Verified) Result title:?CT Pelvis W/ Contrast Performed by:?Faiza Martinez MD on February 19, 2024 15:47 EDT Verified by:?Farhana Mendiola MD on February 19, 2024 15:52 EDT Encounter info:?[id number], [facility], Inpatient, 02/17/2024 -? * Final Report * ?? Reason For Exam r/o buttock abscess;Other: ?? RESULT: CT Pelvis W/ Contrast CT Pelvis W/ Contrast? Reason: r o buttock abscess; Clinical Question(s): Abscess ?? TECHNIQUE: Helical CT with IV contrast formatted in 3 planes. 100 cc of Omnipaque 300 was administered intravenously. Enteric contrast was not administered. Automatic tube modulation and/or iterativedose reconstruction were used to optimize exposure parameters.? CTDIvol Body: 11.00 mGy, ??DLP Body: 479 mGy*cm. ? COMPARISON: Multiple priors, most recent CT abdomen and pelvis 02/06/2024 ?? FINDINGS:? Shop Girl View Findings, Lines and Tubes: None. ?? Visualized bowel: Normal caliber bowel loops without acute surrounding inflammatory changes. ?? Appendix: No evidence of acute appendicitis. ?? Bladder: Unremarkable. ?? Reproductive organs: Unremarkable. ?? Peritoneum and retroperitoneum: No ascites or pneumoperitoneum. No omental or mesenteric lesions. ?? Lymph nodes: Slight increase in right pelvic sidewall lymphadenopathy measuring up to 1.7 cm (201:57), previously 1.3 cm. Slight increase in right inguinal lymphadenopathy measuring up to 2.1 cm (201:69), previously 1.8 cm. ?? Blood vessels: Normal. No evidence of venous thrombosis. ?? Pelvic soft tissues: Unremarkable. ?? Superficial soft tissues: Slight increase in edematous skin thickening of the right buttock extending into the superior right thigh. No evidence of associated drainable fluid collection or abscess. ?? Bones: No acute abnormality. Status post fixation of the proximal left femur. Severe osteoarthritisof the left hip joint with associated bony proliferation. ?? IMPRESSION:? Compared to CT abdomen and pelvis 02/06/2024: 1. ??Slight increase in edematous skin thickening of the right buttock extending into the superior right thigh. No evidence of associated drainable fluid collection or abscess. 2. ??Slight increase in right pelvic sidewall and right inguinal lymphadenopathy, nonspecific, possibly reactive. Correlate clinically. ?? I have personally reviewed the images and I agree with this report. WSN: [id number] ? Ordering Physician: Amador Perez ?? Signature Line Dictated By: ?Faiza Martinez MD Dictated Date/Time: ?02/19/24 3:47 pm Reviewed By: ?Farhana Mendiola MD Signed By: ? Farhana Mendiola MD Signed Date/Time: ? 02/19/24 3:52 pm Transcribed By: ? CSB Transcribed Date/Time: ?02/19/24 3:40 pm ? CT Pelvis W/ Contrast This document has an image * Britta Carmen MD: PERFORM Event Display: Consult Authored Date: ?? Surgery Attending Attestation: ?? The patient was seen, examined, and discussed with the care team on the date of service documented.??The clinical course, labs, and radiological studies were reviewed by me and findings on exam confirmed. ??I agree with the findings as well as the assessment and plan as delineated. ?Diagnoses Hidradenitis?? Chronic GERD ??(K21.9) Chronic ischemic left ICA stroke ??(I69.30) Chronic pain syndrome ??(G89.4) Depression ??(F32.A) Hypertension ??(I10) Iron deficiency anemia ??(D50.9) Thrombocytosis ??(D75.839) Ulcer of buttock ??(L98.419)? --- Britta Carmen MD [facility] Division of Trauma, Acute Care Surgery, and Surgical Critical Care * Barrett BUSTAMANTE, Rosa Ellis: PERFORM, SIGN, VERIFY, MODIFY, SIGN Event Display: Consultation Note Authored Date: Patient: DAVID GUZMÁN Age: 38 years Sex: Male : 1985 Associated Diagnoses: None Author: Rosa Hyde RN History of Presenting Problem right buttocks right hip buttock buttock Date of Service 02/19/2024 Wound RN consult entered to assess right buttock wound and make topical recommendations. Patient very well known to Wound RN team, please see admission note for H&P/PMH. My colleague last consulted on David less than 2 weeks ago on 02/07/24, assessing Hidradenitis suppurativa with recommendations for Vashe and Aquacel. Photos above taken on 02/16, briefly reviewed. MD Tiffanie marvin connected this morning, updated briefly of above; was okay with reinstating my colleagues last recommendations (detailed/copy and pasted below) and okay with us not seeing him in person, ensured he wouldreach out for concerns. *Later morning after this note written MD reached back out described as 'extensive- foul' 'CRP going up' and does not have a PCP. Discussed that some symptoms are typical of H.S disease process, our team has seen purulence and pain during assessment, there are no other recommendations to offer at this time/current are appropriate; if concerns for infection consult surgery they are familiar with patient as well and have seen him for this indication prior. Surgery consulted. Recommendations: 1.) R Buttocks: Apply Vashe moistened [...] ensure appropriate amount removed next dressing change. 2.) Continue use of specialty bed/low air loss mattress 3.) Turn and reposition every 2 hours and PRN. Encourage utilization of foam wedges. 4.) Continue incontinence care as well as moisture management; do not utilize Mepilex foam dressingwith incontinence 5.) Do not utilize brief use 6.) Continue to offload bony prominences. Encourage utilization of [employer] offloading boots to heels. 7.) Continue to provide optimal nutritional support; nutrition consulted 8.) Provide Gaymar cushion to chair when patient OOB Please reconsult wound care RNs for deterioration in wound/skin status Plan Time spent 16-30 minutes * Susy Sutherland DO: PERFORM, SIGN, VERIFY Conrad Arias MD: SIGN, MODIFY Conrad Arias MD: MODIFY Event Display: Consultation Note Authored Date: Patient: DAVID GUZMÁN Age: 38 years Sex: Male : 1985 Associated Diagnoses: None Author: Susy Sutherland DO Visit Information Patient is a 38 yo male admitted for acute on chronic pain secondary to hidradenitis suppurativa. History of Present Illness 38 yo male with PMHx of HTN, GERD, Hx of L ICA stroke, and chronic hidradenitis suppurativa, presenting with uncontrolled pain in right buttock. patient has chronic pain secondary to hidradenitis suppurativa in right buttock. States he has not been able to get his home oxycodone, causing him to have uncontrolled pain. States he takes 30mg oxycodone q6hr at home, which gives him adequate pain relief. denies numbness or tingling. ambulating worsens pain, unable to express what relieves pain besides medications. Patient reports he used to have a PCP who prescribed him with oxycodone, however has not had one inthe past few months and has been unable to find provider who is taking new patients, and so, he hasbeen running out of his oxycodone. he does state he is scheduled for an appointment with a provideron 02/17 or 02/18, however he is unsure of provider's name. at worst pain level, pain is at 10/10. however, is currently controlled at 5- 6/10 with medications.states his is tolerable for him. -Out pt pain medications: 30 mg oxycodone q6hr -In pt pain regimen: fentanyl patch 25 mcg q72 hours oxycodone 30mg q6hr PRN PO Duloxetine 30mg BID PO Tizanidine 4mg q8hr PRN PO Acetaminophen 650 mg q4hr PRN PO Pt reports adequate pain relief with this current regimen. states the oxycodone and acetaminophen work best. has been refusing fentanyl patch as it does not help with his pain. APS consulted by primary team for pain management. Past Medical History Procedure/Surgical Profile Operative procedure on hip ([id number]) in 2000 at 15 Years. Problem list All Problems Chronic ischemic left ICA stroke / SNOMED CT 9065142407 / Confirmed Chronic pain / SNOMED CT 288693764 / Confirmed Controlled substance agreement signed 10/16/22 / SNOMED CT 794653493 / Confirmed Depression / SNOMED CT 76263702 / Confirmed GERD (gastroesophageal reflux disease) / SNOMED CT 202150461 / Confirmed Hidradenitis suppurativa / SNOMED CT 11679382 / Confirmed History of ischemic stroke / SNOMED CT 4891404210 / Confirmed Hypertension / SNOMED CT 0854503898 / Confirmed PATY (iron deficiency anemia) / SNOMED CT 835689937 / Confirmed Insomnia / SNOMED CT 370394511 / Confirmed Iron deficiency anemia / SNOMED CT 142569844 / Confirmed Mural thrombus of cardiac apex / SNOMED CT 020745079 / Confirmed Peripheral neuropathy / SNOMED CT 533474123 / Confirmed Right spastic hemiparesis / SNOMED CT 897753399 / Confirmed Spasticity / SNOMED CT 639935481 / Confirmed Therapeutic drug monitoring / SNOMED CT 657635541 / Confirmed Thrombocytosis / SNOMED CT 22351343 / Confirmed Tobacco dependence / SNOMED CT 0089180700 / Confirmed Wound of buttock / SNOMED CT 85127590 / Confirmed Resolved: Acute left ICA ischemic stroke / SNOMED CT 7042849161 Canceled: [facility] Care Management, Central Office Trouble Shooter Carmen Elizabeth [phone] / SNOMED CT 445054145 Allergies Allergic Reactions (Selected) NKA MEDICATION LIST (Selected) Inpatient Medications Ordered Acetaminophen Tablet: 650 mg, Tablet, By Mouth, Every 4 hours, PRN for Pain , Mild, Temperature Greater than 100.5, Routine, 02/15/24 15:51:00 EDT Apixaban Tablet: 5 mg, Tablet, By Mouth, 2 times a day, *To start after initial 7 day treatment*, Routine, 02/15/24 9:00:00 EDT Docusate Sodium Capsule: 100 mg, Capsule, By Mouth, 2 times a day, PRN for Constipation, Routine, 02/15/24 15:51:00 EDT Doxycycline IVPB: 100 mg, in 100 mL NaCl 0.9%, IVPB, Injection, Every 12 hours, Indicated for: Cellulitis Purulent, Routine, 02/16/24 14:00:00 EDT Duloxetine: 30 mg, Capsule, By Mouth, 2 times a day, Routine, 02/15/24 21:19:00 EDT FENTanyl Patch: 25 mcg, Patch, Topically, Apply to Left Arm, Every 72 hours, Dose at 25 mcg/hr, Routine, 02/15/24 20:54:00 EDT Melatonin Tablet: 3 mg, Tablet, By Mouth, Daily at bedtime, PRN for Insomnia, Routine, 02/15/24 15:51:00 EDT MiraLax Powder: 17 Gm, Powder, By Mouth, Daily for 14 days, Dissolve in 8 ounces of water., PRN forConstipation, Routine, 02/15/24 15:51:00 EDT, Stop date 02/29/24 15:50:00 EDT NaCL 0.9% Flush: 3 mL, Injection, IV Push, Every 8 hours, PRN for Line/Tube Patency, Routine, 02/15/24 15:51:00 EDT NaCL 0.9% Flush: 3 mL, Injection, IV Push, Every 8 hours, Routine, 02/15/24 16:00:00 EDT Remove Patch: 1 each, Patch, Topically, Apply to Left Arm, Every 72 hours, Remove existing Fentanylpatch prior to new patch application., Routine, 02/15/24 22:00:00 EDT Robitussin DM Liquid: 10 mL, Syrup, By Mouth, Every 4 hours, PRN for Cough, Routine, 02/15/24 15:51:00 EDT Senna Tablet: 1 tablet, Tablet, By Mouth, 2 times a day, PRN for Constipation, Routine, 02/15/24 15:51:00 EDT Simethicone Tablet: 80 mg, Chew Tablet, Chew, 3 times a day, PRN for Gas, Routine, 02/15/24 15:51:00 EDT Vitamin D3 1000 intl units oral tablet: Tablet, By Mouth, Daily, Routine, 02/16/24 9:00:00 EDT amLODIPine 5 mg oral tablet: 5 mg, Tablet, By Mouth, Daily, Routine, 02/16/24 9:00:00 EDT ferrous sulfate 325 mg oral tablet: 325 mg, EC Tablet, By Mouth, 2 times a day, Routine, 02/15/24 21:20:00 EDT gabapentin 400 mg oral capsule: 800 mg, Capsule, By Mouth, 3 times a day, Routine, 02/15/24 9:00:00EDT hydroxyurea 500 mg oral capsule: 500 mg, Capsule, By Mouth, Daily, Routine, 02/16/24 9:00:00 EDT oxyCODONE 5 mg oral tablet: 30 mg, Tablet, By Mouth, Every 6 hours, PRN for Pain , Moderate, Routine, 02/15/24 6:00:00 EDT pantoprazole 40 mg oral delayed release tablet: 40 mg, EC Tablet, By Mouth, Daily, Indicated for: GERD, Routine, 02/16/24 9:00:00 EDT tiZANidine 4 mg oral tablet: 4 mg, Tablet, By Mouth, Every 8 hours, PRN for Spasm, Routine, 02/15/24 21:21:00 EDT Prescriptions Prescribed Narcan 4 mg/0.1 mL nasal spray: 1 sprays = 4 mg, Nares, Both, Once, To be used use one spray in one nostril. if an additional dose is needed, alternate nostril. may repeat every 2 to 3 minutes until patient responds, # 2 each, 0 Refills, Soft Stop, 08/23/23 15:54:00 EDT, [facility] [place]... Vashe wound solution: Vashe wound solution, See Instructions, # 1 each, Refills 11, Tot. Refills 11, Maintenance, Use 45mL daily, 08/12/23 14:10:00 EDT, Supply, 182, cm, 07/26/23 9:16:00 EDT, Height,89, kg, 07/03/23 11:22:00 EST, Dry Weight Vitamin D3 1000 intl units oral tablet: 1 tablet = 25 mcg, By Mouth, Daily, # 30 tablet, 0 Refills,Maintenance, 07/16/23 10:05:00 EST, Tablet, [facility] [place] [facility], Partial fill upon patient request if the prescription is for a schedule II opioid drug., 182, cm, 07/04/23 14:56:00 EST,... acetaminophen 500 mg oral tablet: 2 tablet = 1,000 mg, By Mouth, 3 times a day, PRN for pain, # 100tablet, 6 Refills, Acute 05/12/24 15:40:00 EST, 10/25/23 15:40:00 EDT, Tablet, [facility] #[id number], Partial fill upon patient request if the prescription is for a schedule II opioid drug... amLODIPine 5 mg oral tablet: See Instructions, TAKE 1 TABLET BY MOUTH EVERY DAY, # 30 tablet, 10 Refills, Maintenance, 01/11/24 12:18:00 EDT, [id number], 193.8, cm, 01/04/24 1:02:00 EDT, Height,90.72, kg, 01/04/24 1:02:00 EDT, Dry Weight ascorbic acid 500 mg oral tablet: 1 [...] a day, PRN, # 30 tablet, Refills 5,Tot. Refills 5, Maintenance, Pain , Mild, 08/06/23 9:00:00 EDT, Route to Pharmacy Electronically, [id number], 182, cm, 07/26/23 9:16:00 EDT, Height, 89, kg, 07/03/23 11:22... docusate sodium 100 mg oral capsule: 1 capsule, By Mouth, 2 times a day, # 60 capsule, 11 Refills, Maintenance, 09/03/23 17:44:00 EDT, [id number], 193, cm, 09/03/23 14:09:00 EDT, Height, 91.4, kg, 08/30/23 12:03:00 EDT, Dry Weight duloxetine 30 mg oral enteric coated capsule: 1 capsule = 30 mg, By Mouth, 2 times a day, TAKE 1 CAPSULE BY MOUTH EVERY DAY, # 60 capsule, 6 Refills, Maintenance, 10/25/23 15:39:00 EDT, Capsule, [id number], Partial fill upon patient request if the prescription is for a schedule II opioid... fentaNYL 25 mcg/hr transdermal film, extended release: 1 patch, Topically, Every 72 hours, # 3 patch, 0 Refills, Maintenance, 02/11/24 12:51:00 EDT, Patch, [id number], Partial fill upon patient request if the prescription is for a schedule II opioid drug., 193.04, cm, 02/03/24 0:29:00 EDT, Height,... ferrous sulfate 325 mg oral tablet: 1 tablet, By Mouth, 2 times a day, # 180 tablet, 0 Refills, Maintenance, 10/16/23 15:51:00 EDT, [id number], 193, cm, 10/04/23 3:49:00 EDT, Height, 90.4, kg, 10/07/23 21:33:00 EDT, Dry Weight gabapentin 400 mg oral capsule: 800 mg, 2, capsule, By Mouth, 3 times a day, # 180 capsule, Refills0, Tot. Refills 0, Maintenance, 02/03/24 9:55:00 EDT, Route to Pharmacy Electronically, [facility], Partial fill upon patient request if the prescription is for a schedu... hydroxyurea 500 mg oral capsule: 1 capsule, By Mouth, Daily, # 30 capsule, 0 Refills, Maintenance, 12/11/23 14:15:00 EDT, [id number], 194, cm, 11/20/23 13:14:00 EDT, Height, 93.9, kg, 11/16/23 23:35:00 EDT, Dry Weight pantoprazole 40 mg oral delayed release tablet: 1 tablet, By Mouth, Daily, # 30 tablet, 2 Refills, Maintenance, 10/14/23 12:04:00 EDT, 193, cm, 10/04/23 3:49:00 EDT, Height, 90.4, kg, 10/07/23 21:33:00 EDT, Dry Weight tiZANidine 2 mg oral tablet: 4 mg, 2, tablet, By Mouth, Every 8 hours, PRN, # 180 tablet, Refills 11, Tot. Refills 11, Maintenance, as needed for muscle spasm, 08/12/23 13:51:00 EDT, Route to Pharmacy Electronically, [id number], Partial fill upon patient request if the pr... Documented Medications Documented Eliquis 5 mg oral tablet: 1 tablet = 5 mg, By Mouth, 2 times a day, Maintenance, 09/21/23 10:38:00 EDT, Partial fill upon patient request if the prescription is for a schedule II opioid drug. Ilaris 150 mg/mL subcutaneous solution: = 150 mg, Subcutaneous Injection, Every 28 days, 0 Refills,Maintenance, 11/17/23 4:39:00 EDT, Partial fill upon patient request if the prescription is for a schedule II opioid drug. clindamycin 1% topical gel: APPLY TO AFFECTED AREA TOPICALLY TWICE A DAY folic acid 1 mg oral tablet: 1 [...] Type. Family/Social Marital status. Social support system. Review of Systems Denies: numbness, tingling reports R buttock pain Physical Examination General Exam Respiratory Normal. RR even/ unlabored, Speaking freely during exam, No s/s or c/o SOB. . Abdominal Normal. Peripheral Pulse Normal. Psychiatric Normal. a.ox3 answers all questions appropriately + appropriate affect . Neurologic Normal. A/Ox3, expressive aphasia, residual left hemiparesis. Range of Motion Normal. Not evaluated. Musculoskeletal Normal. Not evaluated. Skin Normal. Sensory Normal. Motor Significant findings left residual hemiparesis. Pain Assessment The Quality is constant. The severity is 5 / 10 on the severity scale. Time pattern: constant. Exacerbating factors: movement. Relieving factors: medication. Pain interventions: medication. Results Review Results Today's Results : ALL RESULT SECTIONS 02/17/2024 2:38 EDT Sodium 132 mmol/L L Potassium 4.4 mmol/L Chloride 96 mmol/L L Bicarbonate Level 23 mmol/L Anion Gap 13 Glucose Level 80 mg/dL BUN 14 mg/dL Creatinine-Blood 0.89 mg/dL Estimated GFR Creatinine 113 ML/MIN/1.73 M2 Calcium 8.7 mg/dL Phosphorus 4.1 mg/dL Magnesium 2.1 mg/dL C-Reactive Protein 3.0 mg/dL H 02/17/2024 2:32 EDT WBC 6.9 k/mm3 RBC 3.39 m/mm3 L Hgb 9.5 Gm/dL L Hct 30.2 % L MCV 89.1 femtoliters MCH 28.0 pg MCHC 31.5 Gm/dL L Platelet Count 515 k/mm3 H RDW-SD 51.8 femtoliters H MPV 8.5 femtoliters L Nucleated RBC (Automated) 0.0 #/100 WBC'S Abs. NRBC 0.0 k/mm3 Sed Rate 103 mm/hr H Vital SignsTemperature : Temperature 02/17/2024 15:30 EDT Temperature 98.2 DegF 02/17/2024 12:05 EDT Temperature 98.4 DegF 02/17/2024 8:32 EDT Temperature 98.6 DegF 02/17/2024 4:23 EDT Temperature 98.2 DegF 02/16/2024 20:29 EDT Temperature 98.8 DegF 02/16/2024 8:12 EDT Temperature 98.1 DegF Pulse Rate : Pulse Rate 02/17/2024 15:30 EDT Pulse Rate 77 bpm 02/17/2024 12:05 EDT Pulse Rate 77 bpm 02/17/2024 8:32 EDT Pulse Rate 65 bpm 02/17/2024 4:23 EDT Pulse Rate 65 bpm 02/16/2024 20:29 EDT Pulse Rate 76 bpm 02/16/2024 17:16 EDT Pulse Rate 67 bpm 02/16/2024 15:16 EDT Pulse Rate 66 bpm 02/16/2024 12:00 EDT Pulse Rate 71 bpm 02/16/2024 10:00 EDT Pulse Rate 67 bpm 02/16/2024 8:12 EDT Pulse Rate 74 bpm 02/16/2024 5:37 EDT Pulse Rate 65 bpm 02/16/2024 3:35 EDT Pulse Rate 58 bpm Respiratory Rate : Respiratory Rate 02/17/2024 15:58 EDT Respiratory Rate 20 br/min 02/17/2024 15:30 EDT Respiratory Rate 18 br/min 02/17/2024 15:03 EDT Respiratory Rate 18 br/min Respiratory Rate 18 br/min 02/17/2024 14:03 EDT Respiratory Rate 20 br/min 02/17/2024 12:05 EDT Respiratory Rate 18 br/min 02/17/2024 10:46 EDT Respiratory Rate 16 br/min 02/17/2024 10:44 EDT Respiratory Rate 16 br/min 02/17/2024 9:47 EDT Respiratory Rate 16 br/min 02/17/2024 9:44 EDT Respiratory Rate 16 br/min 02/17/2024 8:32 EDT Respiratory Rate 18 br/min 02/17/2024 4:35 EDT Respiratory Rate 16 br/min 02/17/2024 4:23 EDT Respiratory Rate 16 br/min 02/17/2024 3:35 EDT Respiratory Rate 20 br/min 02/17/2024 0:51 EDT Respiratory Rate 18 br/min 02/16/2024 21:50 EDT Respiratory Rate 20 br/min Respiratory Rate 20 br/min 02/16/2024 21:28 EDT Respiratory Rate 20 br/min 02/16/2024 21:27 EDT Respiratory Rate 20 br/min 02/16/2024 20:29 EDT Respiratory Rate 18 br/min 02/16/2024 17:16 EDT Respiratory Rate 18 br/min 02/16/2024 15:53 EDT Respiratory Rate 18 br/min 02/16/2024 15:52 EDT Respiratory Rate 18 br/min 02/16/2024 15:16 EDT Respiratory Rate 18 br/min 02/16/2024 14:53 EDT Respiratory Rate 18 br/min 02/16/2024 14:52 EDT Respiratory Rate 19 br/min 02/16/2024 12:00 EDT Respiratory Rate 18 br/min 02/16/2024 10:00 EDT Respiratory Rate 18 br/min 02/16/2024 9:55 EDT Respiratory Rate 19 br/min Respiratory Rate 18 br/min 02/16/2024 8:55 EDT Respiratory Rate 18 br/min Respiratory Rate 18 br/min 02/16/2024 8:12 EDT Respiratory Rate 18 br/min 02/16/2024 5:37 EDT Respiratory Rate 16 br/min 02/16/2024 4:28 EDT Respiratory Rate 16 br/min 02/16/2024 3:35 EDT Respiratory Rate 16 br/min 02/16/2024 3:28 EDT Respiratory Rate 16 br/min SBP/DBP Cuff : SBP/DBP Cuff 02/17/2024 15:30 EDT Systolic Blood Pressure 109 mm Hg Diastolic Blood Pressure 67 mm Hg 02/17/2024 12:05 EDT Systolic Blood Pressure 130 mm Hg Diastolic Blood Pressure 71 mm Hg 02/17/2024 9:46 EDT Systolic Blood Pressure 113 mm Hg Diastolic Blood Pressure 63 mm Hg 02/17/2024 8:32 EDT Systolic Blood Pressure 107 mm Hg Diastolic Blood Pressure 65 mm Hg 02/17/2024 4:23 EDT Systolic Blood Pressure 120 mm Hg Diastolic Blood Pressure 78 mm Hg 02/16/2024 20:29 EDT Systolic Blood Pressure 143 mm Hg H Diastolic Blood Pressure 86 mm Hg H 02/16/2024 17:16 EDT Systolic Blood Pressure 122 mm Hg Diastolic Blood Pressure 80 mm Hg 02/16/2024 15:16 EDT Systolic Blood Pressure 119 mm Hg Diastolic Blood Pressure 72 mm Hg 02/16/2024 12:00 EDT Systolic Blood Pressure 121 mm Hg Diastolic Blood Pressure 78 mm Hg 02/16/2024 10:00 EDT Systolic Blood Pressure 130 mm Hg Diastolic Blood Pressure 84 mm Hg 02/16/2024 8:55 EDT Systolic Blood Pressure 131 mm Hg Diastolic Blood Pressure 90 mm Hg H 02/16/2024 8:12 EDT Systolic Blood Pressure 138 mm Hg Diastolic Blood Pressure 93 mm Hg H 02/16/2024 5:37 EDT Systolic Blood Pressure 126 mm Hg Diastolic Blood Pressure 81 mm Hg 02/16/2024 3:35 EDT Systolic Blood Pressure 119 mm Hg Diastolic Blood Pressure 74 mm Hg O2 Sat : Oxygen Saturation 02/17/2024 15:30 EDT Oxygen Saturation 96 % 02/17/2024 12:05 EDT Oxygen Saturation 97 % 02/17/2024 8:32 EDT Oxygen Saturation 95 % 02/17/2024 4:23 EDT Oxygen Saturation 97 % 02/16/2024 20:29 EDT Oxygen Saturation 98 % 02/16/2024 17:16 EDT Oxygen Saturation 99 % 02/16/2024 15:16 EDT Oxygen Saturation 99 % 02/16/2024 12:00 EDT Oxygen Saturation 99 % 02/16/2024 10:00 EDT Oxygen Saturation 99 % 02/16/2024 8:12 EDT Oxygen Saturation 99 % 02/16/2024 5:37 EDT Oxygen Saturation 99 % 02/16/2024 3:35 EDT Oxygen Saturation 98 % Impression and Plan Impression and Plan Comprehensive Assessment Plan as follows Comprehensive plan: 38 yo male with PMHx of HTN, GERD, Hx of L ICA stroke, and chronic hidradenitis suppurativa, presenting with uncontrolled pain in right buttock. patient has chronic pain secondary to hidradenitis suppurativa in right buttock. presenting with uncontrolled pain due to not having access to home oxycodone. 1. Discontinue fentanyl patch as patient is currently refusing 2. Continue oxycodone 30mg q6hr PRN PO 3. Continue gabapentin 800mg TID PO 4. Continue duloxetine 30mg BID PO 5. Continue Tizanidine 4mg q8hr PRN 6. Continue Doxycycline 100mg BID 7. Recommend scheduling Acetaminophen q4hr 8. Recommend outpatient PCP follow up to manage pain medications APS will sign off at this time, please feel free to reach out with any questions. Plan discussed with APS attending, Dr Arias. Susy Sutherland, DO Anesthesiology Residency PGY-2/CA-1 * Hugo PAGAN, Conrad Varghese: PERFORM Event Display: Consultation Note Authored Date: Attending Attestation: I saw and examined the patient. Agree with the resident's note as documented. Patient needs follow up with PCP/outpatient pain management to take over pain medications prescriptions. His pain seemed to be controlled with the current regimen. He is an ideal candidate for trial of switching his opioid regimen to buprenorphine or methadone (analgesic dose) given risk of tolerance and OIH among others. However, this can be done on outpatient basis. KAMILLE Kapoor, MSc, PhD Anesthesiology and Chronic pain management History and physical note * Benson Ray MD: PERFORM Event Display: History and Physical Hospital Authored Date: [id number] Patient: ??DAVID GUZMÁN ? Age:??38 Years?Sex:??Male?:??1985?? Chief Complaint/Reason for Consultation hx cva - weakness started at home since yesterday, loss of appetite, chronic r sided weakness from previous cva aox4 History of Present Illness This is a 38-year-old man who has significant history of CVA with residual right sided hemiparesis and expressive aphasia, anticoagulated on Eliquis, hidradenitis suppurativa of right buttocks, hypertension, depression, GERD, chronic continuous opiate use who was discharged from this institution 6 days ago.?? Patient claims that he was discharged from without a prescription for oxycodone and comes back to the emergency room complaining of severe pain on the right buttocks. As per records, patient was discharged on fentanyl patch as well as short course of oxycodone. He denies any fever, chills, nausea, vomiting, diarrhea, shortness of breath, chest pain, palpitations or dizziness. He spends most of the time lying down in bed and when he moves around, he uses a wheelchair. In the emergency room, he was evaluated by medical social worker who found out that he was trying to fill his prescription to early. The patient continues expressing uncontrolled pain and was started back on oxycodone 30 mg p.o. every 6 hours and admitted to the hospital for further pain control and management. Review of Systems A full review of systems was completed and is otherwise negative except as mentioned in history of present illness. Objective ? Vital Signs?? Temperature: 98.5 DegF (02/15/24 16:42:00) Temperature Route: Oral (02/15/24 16:42:00) Pulse Rate: 58 bpm (02/15/24 16:42:00) Respiratory Rate: 16 br/min (02/15/24 21:55:00) Vented: No (02/15/24 06:19:00) Systolic Blood Pressure: 134 mm Hg (02/15/24 16:42:00) Diastolic Blood Pressure: 82 mm Hg (02/15/24 16:42:00) Pulse Pressure: 68 mm Hg (02/15/24 06:19:00) Oxygen Saturation: 99 % (02/15/24 16:42:00) Mode of Delivery (Oxygen): Room air (02/15/24 16:42:00) Early Warning Score: 0 (02/15/24 22:41:44) ? Physical Exam Constitutional: Alert, in no distress. Mental Status: Oriented to person, place and time. Head: Normocephalic. Eyes: Pupils are equal, round and reactive to light. Extraocular muscles intact. Ear, Nose and Throat: Oropharynx clear, pallor without jaundice,??mucous membranes moist. Ears and nose without masses, lesions or deformities. Trachea midline. Neck: Supple, Full range of motion. Respiratory: Clear to auscultation. No wheezing, rales or rhonchi. Cardiovascular: S1 S2 regular. No murmurs, rubs or gallops. Gastrointestinal: Obese, abdomen soft, non-tender, non-distended. Normal bowel sounds. No pulsatilemass. No hepatosplenomegaly. Genitourinary: No costovertebral angle tenderness. Neurologic: Expressive aphasia. ??Right??sided hemiparesis??(old)??with weakness more prominent in the right upper extremity and the right lower extremity. Skin: Right buttocks ulcer with multiple sites and serosanguineous drainage.?? No fluctuance, induration or purulent discharge.. No petechiae or purpura.?? Musculoskeletal: No cyanosis or clubbing. No gross deformities. Normal range of motion. Heme/Lymphatics/Immun: Palpation of neck reveals no swelling or tenderness of neck nodes. Palpationof groin reveals no swelling or tenderness of groin nodes. Psychiatric: Normal mood and affect Assessment/Plan Diagnoses Chronic GERD ??(K21.9) Chronic ischemic left ICA stroke ??(I69.30) Chronic pain syndrome ??(G89.4) Depression ??(F32.A) Hypertension ??(I10) Iron deficiency anemia ??(D50.9) Thrombocytosis ??(D75.839) Ulcer of buttock ??(L98.419) ?? Assessment:??This is a 38-year-old man who comes into the emergency room complaining of??intractable pain in right buttocks.??Patient with history of chronic??right buttocks ulcer??secondary to??hidradenitis suppurativa.??No??evidence of acute infection at the moment. ?? Chronic pain syndrome (G89.4):??He will be placed under observation??on regular floor. Continue fentanyl??25 mcg??every 72 hours.??Oxycodone 30 mg p.o. every 6 hours. Continue gabapentin??800 mg p.o. 3 times a day and Cymbalta??30 mg p.o. daily.??I will reconsult??addiction medicine. ?? Ulcer of buttock (L98.419):??Wound care consult ?? Chronic ischemic left ICA stroke (I69.30):??Continue home Eliquis??5 mg p.o. twice a day ?? Depression (F32.A):??Continue duloxetine 30 mg BID ?? Hypertension (I10):??Continue home amlodipine??5 mg p.o. daily. ?? Chronic GERD (K21.9):??Continue pantoprazole 40mg qd ?? Iron deficiency anemia (D50.9):??Stable.??Monitor H&H.??Continue ferrous sulfate 325 mg BID ?? Thrombocytosis (D75.839):?platelets at baseline, continue home hydroxyurea ?? VTE Prophylaxis:??Patient tolerating Eliquis ?VTE Prophylaxis Assessment:??VTE Prophylaxis Ordered ?? Discharge Planning:? Code Status:??He is a full code. ?Order Code Status:??Code Status Ordered ? Estimated Discharge Date ?? I spent a total of 75 [...] Past Surgical History Operative procedure on hip: 2001 ? Social History Alcohol Details:??Use: Never. Substance [...] COUNT & DIFF WBC 9.0 k/mm3 ()?? 02/15/2024 01:32 RBC 3.37 m/mm3 (Low)?? 02/15/2024 01:32 Hgb 9.5 Gm/dL (Low)?? 02/15/2024 01:32 Hct 31.0 % (Low)?? 02/15/2024 01:32 MCV 92.0 femtoliters ()?? 02/15/2024 01:32 MCH 28.2 pg ()?? 02/15/2024 01:32 MCHC 30.6 Gm/dL (Low)?? 02/15/2024 01:32 Platelet Count 530 k/mm3 (High)?? 02/15/2024 01:32 RDW-SD 55.1 femtoliters (High)?? 02/15/2024 01:32 MPV 8.5 femtoliters (Low)?? 02/15/2024 01:32 Nucleated RBC (Automated) 0.0 #/100 WBC'S ()?? 02/15/2024 01:32 Abs. NRBC 0.0 k/mm3 ()?? 02/15/2024 01:32 Abs. Neut 6.6 k/mm3 ()?? 02/15/2024 01:32 Abs. Lymph 1.6 k/mm3 ()?? 02/15/2024 01:32 Abs. Lares 0.7 k/mm3 ()?? 02/15/2024 01:32 Abs. Eo 0.1 k/mm3 ()?? 02/15/2024 01:32 Abs. Baso 0.0 k/mm3 ()?? 02/15/2024 01:32 Neut % 73.1 % ()?? 02/15/2024 01:32 Lymph % 17.3 % ()?? 02/15/2024 01:32 Lares % 7.3 % ()?? 02/15/2024 01:32 Eos % 1.3 % ()?? 02/15/2024 01:32 Baso % 0.3 % ()?? 02/15/2024 01:32 Imm Gran 0.7 % ()?? 02/15/2024 01:32 Abs. Imm Gran 0.1 k/mm3 ()?? 02/15/2024 01:32 ?? CHEM GENERAL Sodium 140 mmol/L ()?? 02/15/2024 01:33 Potassium 3.7 mmol/L ()?? 02/15/2024 01:33 Chloride 108 mmol/L (High)?? 02/15/2024 01:33 Bicarbonate Level 23 mmol/L ()?? 02/15/2024 01:33 Anion Gap 9 ()?? 02/15/2024 01:33 Glucose Level 133 mg/dL (High)?? 02/15/2024 01:33 BUN 18 mg/dL ()?? 02/15/2024 01:33 Creatinine-Blood 0.80 mg/dL ()?? 02/15/2024 01:33 Estimated GFR Creatinine 117 ML/MIN/1.73 M2 ()?? 02/15/2024 01:33 Calcium 8.7 mg/dL ()?? 02/15/2024 01:33 ? Hospital Progress note * Becky Herbert RN: PERFORM, MODIFY, SIGN, VERIFY Event Display: Progress Note Hospital Authored Date: Patient: DAVID GUZMÁN Age: 38 years Sex: Male : 1985 Associated Diagnoses: None Author: Becky Herbert RN Findings Problem Related to Alteration in Comfort : Alteration in Comfort/new 02/20/2024 22:00 EDT Alteration in Comfort Related to Other: pain Goals & Outcomes: Comfort Pt will report acceptable level of comfort & pain control, Pt will state importance of adhering to pain strategy regime, Pt will demonstrate necessary skills to manage pain, Non-verbal indicators will indicate comfort/pain control Interventions Implemented: Comfort Assess pain using appropriate pain scale/tools BH Goals/Interventions, Comfort Yes Comfort, Problem Start 02/17/2024 4:35 Reviewed plan with, Comfort Patient Patient Progression, Comfort Pt progressing according to plan Comfort, Problem Ongoing Yes . Nursing Data Activity Data : Activity Data 02/20/2024 20:00 EDT Activity Status ADL Reposition every 2 hours Repositioning Assist . Cardiac Data. : Cardiac Data. 02/21/2024 0:59 EDT Hgb 9.8 Gm/dL L Hct 31.2 % L 02/21/2024 0:00 EDT Cardiovascular Assessment Status Unchanged from recorder's assessment 02/20/2024 22:00 EDT Cardiovascular Assessment Status Unchanged from recorder's assessment 02/20/2024 20:00 EDT Cardiovascular Symptoms None Nail Bed Color, Fingers [place] Nail Bed Color, Toes [place] Skin Temperature Upper Extremities Warm Skin Temperature Lower Extremities Warm Pacemaker No Capillary Refill < 3 seconds Radial Pulse, Left Normal Radial Pulse, Right Normal Dorsalis Pedis Pulse, Left Normal Dorsalis Pedis Pulse, Right Normal Homans' Sign Negative (Normal) Ankle, left None Ankle, right None cracking unit operator No Cardiovascular WNL except . Gastrointestinal Data. : Gastrointestinal Data. 02/20/2024 20:00 EDT Gastrointestinal Symptoms None Abdomen Soft, Non-tender Bowel Sounds LUQ Present Bowel Sounds RUQ Present Bowel Sounds LLQ Present Bowel Sounds RLQ Present GI WNL except . Genitourinary Data. : Genitourinary Data. 02/20/2024 20:00 EDT Genitourinary Comment VOIDING IN URIANL WNL except . Integumentary Data. : Integumentary Data. 02/20/2024 20:51 EDT Integumentary WNL except 02/20/2024 20:00 EDT Sensory Perception No impairment Mobility Very limited Thigh Right Lateral, Posterior Skin Abnormality Type: Unknown Etiology Wound Assessment Activity: Reassessment Wound Dressing Assessment: Clean, Dry, Intact Wound Dressing Activity: Intact Buttock Right Skin Abnormality Type: Unknown Etiology Wound Assessment Activity: Reassessment Wound Photo Uploaded: Yes Wound Present on Admission: Yes Wound Dressing Assessment: Clean, Dry, Intact . Musculoskeletal Data. : Musculoskeletal Data. 02/20/2024 20:00 EDT Musculoskeletal Symptoms Weakness Musculoskeletal WNL except . Neurological Data. : Neurological Data. 02/21/2024 1:04 EDT Pain Intensity 0 Pain Intensity 0 02/21/2024 0:00 EDT Neurological Assessment Status Unchanged from recorder's assessment 02/20/2024 23:13 EDT Pain Intensity 6 Pain Intensity 6 02/20/2024 22:00 EDT Neurological Assessment Status Unchanged from recorder's assessment 02/20/2024 21:44 EDT Pain Intensity 6 02/20/2024 20:44 EDT Pain Intensity 0 02/20/2024 20:00 EDT Tongue Disposition Midline Neurological Symptoms Alteration in speech quality, Weakness or loss of muscle strength Level of Consciousness Full Consciousness Orientated to person, place, time Person, Place, Time Hallucinations None Facial Symmetry Mouth deviation to right Characteristics of Speech Expressive aphasia, Expressive language difficulty Swallowing Difficulty None Pupil description, left Regular Pupil description, right Regular Pupil reaction, left Brisk Pupil reaction, right Brisk Strength LUE 5-Active movement against gravity & full resistance Strength RUE 0-No movement Strength LLE 5-Active movement against gravity & full resistance Strength RLE 2-Active movement horizontally Tone LUE Normal Tone RUE Flaccid Tone LLE Normal Sensation LUE Intact Sensation RUE Intact, Diminished Sensation LLE Intact Sensation RLE Intact, Diminished Movement LUE Spontaneous Movement LLE Spontaneous Movement RLE Spontaneous Gait Unable to assess Response Eye Opening Spontaneously Motor Response-Adult Obeys commands Verbal Response-Adult Oriented and converses Cirilo Coma Score 15 1 - 10 Pain Scale Score 7 Neuro WNL except Eyes and Movements Conjugate gaze: Move in same direction at same speed Memory Intact Swallow - Neuro Normal . Patient Care Data. : Patient Care Data. 02/20/2024 20:46 EDT Turn and Reposition Every two hours Sequential Compression Device Sequentials on bilaterally TEDS Not indicated/Not ordered ID band on Yes Allergy band in place/verified Yes Blood Pressure/Venipuncture Do not use right arm, Do not use right leg Call Siddiqi in Reach-Ensure Ability to Use Yes Patient Instructed on Use of Call Siddiqi Yes Standard Safety Bed alert on, Bed in low position, Chair alarm, Non-slip footwear, Upper/Half-length side-rails up, Wheels locked Pt Ed-Learning: Person Taught Patient Pt Ed-Learning: Learning Readiness Yes, alert and oriented Fall Elimination No impairment Fall Agitation/Anxiety/Depression No impairment Fall Related Sign/Symptom/Condition None Fall Cognitive Limitations No impairment Fall Sensory and Physical Function Weak, Requires Staff Assistance with Transfer, Requires the Use of an Assistive Device Plan: Fall Sensory and Physical Function Monitor patient's progress with physical activities, Collaborate with Physical Therapy for balance/gait training Fall High Risk for Injury None of the above Total Falls Risk Score 8 Fall Risk Level High Risk Falls Prevention Plan for High Risk Fall risk decal outside of patient's room, Fall grounds restoration specialist patient's chart, Ensure patient has yellow non-skid slippers, Evaluate footwear & ensure patient hasnon-skid slippers, Activate alternate alarm: chair (i.e. TABS, Alimed), Bed in lowest locked position, Provide patient/family falls prevention education, Instruct patient/family not to get up withoutassistance, Supervise the patient when ambulating or making transfers, Check that needs are met to minimize attempts to get up, Hourly rounds, Ensure safe & uncluttered environment 02/20/2024 20:00 EDT Patient's Stated Goal Pain control VAP Precautions HOB 30-45 degrees unless contraindicated, doc. 3X/day Hygiene Refused care, HS care Activity Status ADL Reposition every 2 hours Repositioning Assist Bed Position Low Pain system assessment Detailed pain assessment . Respiratory/Pulmonary Data. 02/20/2024 20:46 EDT Respiratory Treatment(s) Cough and deep breathe 02/20/2024 20:00 EDT Mode of Delivery (Oxygen) Room air Respiratory Symptoms None Respiratory effort Unlabored Chest expansion Symmetrical Upper Airway Clear Cough No cough Respiratory pattern Regular Left Upper Lobe Breath Sounds Clear Right Upper Lobe Breath Sounds Clear Right Middle Lobe Breath Sounds Clear Left Lower Lobe Breath Sounds Clear Right Lower Lobe Breath Sounds Clear Head of Bed > 30 degrees Respiratory distress None Respiratory Treatment(s) Cough and deep breathe Respiratory WNL except . Vital Signs : VITAL SIGNS SECTION 02/20/2024 21:44 EDT Respiratory Rate 20 br/min 02/20/2024 20:44 EDT Early Warning Score 1.00 02/20/2024 20:44 EDT Respiratory Rate 20 br/min 02/20/2024 20:22 EDT Early Warning Score 1.00 02/20/2024 20:00 EDT Temperature 98.8 DegF Temperature Route Oral Pulse Rate 68 bpm Respiratory Rate 18 br/min Systolic Blood Pressure 127 mm Hg Diastolic Blood Pressure 59 mm Hg Blood pressure sites Arm, left Oxygen Saturation 97 % Mode of Delivery (Oxygen) Room air . Pain Data : PAIN SECTION 02/21/2024 1:04 EDT Pain Intensity 0 Pain Intensity 0 02/20/2024 23:13 EDT Pain Intensity 6 Pain Intensity 6 02/20/2024 21:44 EDT Pain Intensity 6 . Evaluation pt. alert and oriented x4, with expressive aphasia. Speech clear and swallow intact. Moving left side strong. Right UE flaccid- elevated on pillow, Right LE 2-3/5. Denies n/t, dizziness and headache.+pp with no edema noted. LS- diminished no sob or chesty pain. Pt. remains on RA, o2 sat mid to high 90's. BS+ x4 abd soft nontender no n/v. Voiding in urinal. Pt. c/o right buttock pain- PRN and scheduled meds given with good effect. Dressing c/d/i. Pt. repositioned self in bed. LBM 02/16- refusingstool softeners. Bedalarm in place for safety. See biophysical for full assessment. Will cont. to monitor and report changes.. * Nieves BUSTAMANTE, Shruti Drew: MODIFY, PERFORM, SIGN, VERIFY, SIGN Event Display: Progress Note Hospital Authored Date: [id number] Patient: DAVID GUZMÁN Age: 38 years Sex: Male : 1985 Associated Diagnoses: None Author: Nieves BUSTAMANTE, Shruti rDew Findings Problem Related to Alteration in Comfort : Alteration in Comfort/new 02/20/2024 18:00 EDT Alteration in Comfort Related to Other: pain Goals & Outcomes: Comfort Pt [...] BH Goals/Interventions, Comfort Yes Comfort, Problem Start 02/17/2024 4:35 Reviewed plan with, Comfort Patient Patient Progression, Comfort Patient not progressing according to plan Comfort, Problem Ongoing Yes . Evaluation Patient alert and oriented X3. Lungs clear. Abdomen soft, non-tender, BS+. Last BM 02/16- patient refusing meidcations to have BM. Voiding in the urinal- clear, yellow urine. Dressing changed to rightbuttocks- given tylenol and and oxycodone by mouth as ordered. Patient able to roll from side to side with minimal help. Refusing to be moved onto a therapeutic bed. Tolerating diet without difficulty. Will continue to monitor. . * Essie Medina MD, Javon: PERFORM Event Display: Progress Note Hospital Authored Date: [id number] Patient: ??DAVID GUZMÁN ? Age:??38 Years?Sex:??Male?:??1985?? Subjective Reviewed overnight events.?? Afebrile.?? Vital signs are stable.?? Chronic anemia. ESR CRP elevated.?? Reviewed CT pelvis.?? No drainable fluid collection or abscess. Pain management by APS.?? Pain level 7 out of 10. Surgical consult note reviewed.?? No surgical intervention. Review of Systems As reviewed above. Objective Vital Signs?? Temperature: 97.5 DegF (02/20/24 08:11:00) Temperature Route: Oral (02/20/24 08:11:00) Pulse Rate: 79 bpm (02/20/24 08:11:00) Respiratory Rate: 16 br/min (02/20/24 08:57:00) Systolic Blood Pressure:??143 mm Hg??High (02/20/24 08:57:00) Diastolic Blood Pressure: 66 mm Hg (02/20/24 08:57:00) Blood pressure sites: Arm, right (02/20/24 08:11:00) Mean Arterial Pressure: 92 mm Hg (02/20/24 08:11:00) Pulse Pressure: 77 mm Hg (02/20/24 08:11:00) Oxygen Saturation: 97 % (02/20/24 08:11:00) Mode of Delivery (Oxygen): Room air (02/20/24 03:00:00) Early Warning Score: 3 (02/20/24 09:00:50) ? Physical Exam Constitutional: Alert, in no acute distress. Head EENT: PERRL.??NCAT. Neck: Supple. No obvious LAD. Respiratory: CTAB. No use of accessory muscles. Cardiovascular: S1S2 present. No obvious JVD. Gastrointestinal: Abdomen soft, non-tender, non-distended. Bowel sounds present. Genitourinary: No CVA tenderness. Genital exam deferred. Extremities: No lower extremity pitting??edema. No cyanosis or clubbing. Neurologic: Alert, generally appropriate. ??Chronic mild??aphasia and right- sided weakness. _ 72 Hour Antibiotic History Stopped Antibiotics Stop Date/Time Last Administered First Administered Doxycycline??100 mg, 100 mL/hr, IVPB, Every 12 hours 02/20/2024 09:34 02/20/2024 02:55 02/16/2024 14:53 Results Recent Labs BLOOD COUNT & DIFF WBC 7.2 k/mm3 ()?? 02/20/2024 00:55 RBC 3.26 m/mm3 (Low)?? 02/20/2024 00:55 Hgb 9.2 Gm/dL (Low)?? 02/20/2024 00:55 Hct 29.0 % (Low)?? 02/20/2024 00:55 MCV 89.0 femtoliters ()?? 02/20/2024 00:55 MCH 28.2 pg ()?? 02/20/2024 00:55 MCHC 31.7 Gm/dL (Low)?? 02/20/2024 00:55 Platelet Count 504 k/mm3 (High)?? 02/20/2024 00:55 RDW-SD 49.5 femtoliters (High)?? 02/20/2024 00:55 MPV 8.1 femtoliters (Low)?? 02/20/2024 00:55 Nucleated RBC (Automated) 0.0 #/100 WBC'S ()?? 02/20/2024 00:55 Abs. NRBC 0.0 k/mm3 ()?? 02/20/2024 00:55 ?? CHEM GENERAL Sodium 133 mmol/L ()?? 02/20/2024 00:55 Potassium 4.4 mmol/L ()?? 02/20/2024 00:55 Chloride 100 mmol/L ()?? 02/20/2024 00:55 Bicarbonate Level 25 mmol/L ()?? 02/20/2024 00:55 Anion Gap 8 ()?? 02/20/2024 00:55 Glucose Level 95 mg/dL ()?? 02/20/2024 00:55 BUN 15 mg/dL ()?? 02/20/2024 00:55 Creatinine-Blood 0.93 mg/dL ()?? 02/20/2024 00:55 Estimated GFR Creatinine 108 ML/MIN/1.73 M2 ()?? 02/20/2024 00:55 Calcium 8.6 mg/dL ()?? 02/20/2024 00:55 Phosphorus 4.0 mg/dL ()?? 02/20/2024 00:55 Magnesium 2.1 mg/dL ()?? 02/20/2024 00:55 Protein, Total 6.8 Gm/dL ()?? 02/20/2024 00:55 Albumin 3.2 Gm/dL (Low)?? 02/20/2024 00:55 AG Ratio 0.9 ()?? 02/20/2024 00:55 Alkaline Phosphatase 148 units/L (High)?? 02/20/2024 00:55 AST (SGOT) 13 units/L ()?? 02/20/2024 00:55 ALT (SGPT) 10 units/L ()?? 02/20/2024 00:55 Bilirubin, Total <0.2 mg/dL ()?? 02/20/2024 00:55 C-Reactive Protein 4.7 mg/dL (High)?? 02/20/2024 00:55 ?? HEME OTHER Sed Rate 43 mm/hr (High)?? 02/20/2024 00:55 ?? MISC. CHEMISTRY Procalcitonin 0.04 ng/mL ()?? 02/20/2024 00:55 ? Assessment/Plan 38-year-old man, history of CVA, chronic pain, hidradenitis, who was admitted 02/16 complaining of??intractable pain in right buttocks.??Patient with history of chronic??right buttocks ulcer??secondary to??hidradenitis suppurativa.?He was initially admitted to observation but has been since upgraded to inpatient.??APS was consulted and gave recommendations for his pain management.??Wound Care??was consulted who recommended surgery eval. ?? Chronic pain syndrome (G89.4):?? Presenting with uncontrolled pain in right buttock. patient has chronic pain secondary to hidradenitis suppurativa in right buttock. Presenting with uncontrolled pain due to not having access to home oxycodone. Per chart review his has come in for admission when he??runs out of pain meds APS consulted 1. Discontinue fentanyl patch as patient is currently refusing 2. Continue oxycodone 30mg q6hr PRN PO 3. Continue gabapentin 800mg TID PO 4. Continue duloxetine 30mg BID PO 5. Continue Tizanidine 4mg q8hr PRN 6.??Scheduling Acetaminophen q4hr Patient needs follow up with PCP/outpatient pain management to take over pain medications prescriptions. His pain seemed to be controlled with the current regimen. He is an ideal candidate for trial of switching his opioid regimen to buprenorphine or methadone (analgesic dose) given risk of tolerance and OIH among others. However, this can be done on outpatient basis.?Outpatient pain referral. 02/19: Pain levels are ranging from 7-10. ??Will Discuss with??pain team??for further??adjustment of??his??chronic pain meds. ?? Ulcer of buttock (L98.419):??Superimposed wound infection. Right gluteal??hidradenitis On exam,??extensive buttock wound,??with??significant malodorous, seropurulent??drainage Surgical consulted. Patient with ongoing ,??extensive sinus tracts inflammation and induration, no appreciable abscess, no signs of systemic infection.?? CT scan negative for any appreciable fluid collections or abscess, only extensive induration/inflammation. No acute surgical intervention. Outpatient follow-up??for hidradenitis,??recommend??multidisciplinary team with dermatology and plastic surgery??for elective excision?? Outpatient surgery follow-up as needed.? Continue local wound care: Dry sterile dressing, Aquacel??to??open areas change daily??and as needed for soilage??to right gluteal region Patient is empirically on doxycycline for 4 days now. ??Awaiting for IDs recommendation. Continue to monitor inflammatory markers Optimize nutritional status as possible ?? Chronic ischemic left ICA stroke (I69.30):??Continue home Eliquis??5 mg p.o. twice a day Depression (F32.A):??Continue duloxetine?? Hypertension (I10):??Continue home amlodipine??5 mg p.o. daily. Chronic GERD (K21.9):??Continue pantoprazole 40mg qd Iron deficiency anemia (D50.9):??Stable.??Monitor H&H.??Continue ferrous sulfate 325 mg BID Thrombocytosis (D75.839):?platelets at baseline, continue home hydroxyurea ?? Discharge Planning/OMN: Pain control.??ID input, possible??discharge tomorrow. ? Estimated Discharge Date: 02/20. ?? Please note, dictation software (Extole)??may have been used in the preparation of this note, and may have generated unintentional errors in speech recognition. If there are any questions going forward, please reach out for clarification. ? Note * Litzy Bradford RN: PERFORM Event Display: Discharge/Transfer Note Hospital Authored Date: [id number] Nursing Discharge Note Entered On: 02/21/2024 17:33 EDT Performed On: 02/21/2024 17:32 EDT by Litzy Bradford RN Nursing Discharge Note 2 Discharge Time : 02/21/2024 17:32 EDT Discharge Level of Care at Discharge : Homehealth/VNA Discharge VNA/Hospice/Home Care(v001) : [facility] [phone] Patient Left Unit Via : Wheelchair Patient Accompanied Off Unit with : Responsible adult DC Instructions Provided & Signed by Pt : Yes Patient Understands D/C Instructions : Yes Verbalized Understanding of D/C Plan By : Family, Patient Patient Instructions Discharge Signed : Yes Discharge Comments : iv removed and pt and his brother given written and verbal discharge instructions and pt left unit via wheelchair with brother. Did Pt have Specialty Bed or Wound Vac : No Litzy Bradford RN - 02/21/2024 17:32 EDT * Caleb PAGAN, Sarah: MODIFY, MODIFY, MODIFY, MODIFY, PERFORM, MODIFY Event Display: Discharge/Transfer Note Hospital Authored Date: [id number] Patient: ??DAVID GUZMÁN ? Age:??38 Years?Sex:??Male?:??1985?? Patient Information Discharge Location: Primary Care Physician: Derek Tomas MD Admit Date/Time: 02/17/24 10:09 Discharge Disposition Discharge Disposition: Home with Home Health Discharge Diagnosis Ulcer of buttock (L98.419) Chronic pain syndrome (G89.4) Chronic ischemic left ICA stroke (I69.30) Depression (F32.A) Chronic GERD (K21.9) Iron deficiency anemia (D50.9) Thrombocytosis (D75.839) Hypertension (I10) _ Discharge Medications Acetaminophen (acetaminophen 500 mg oral tablet)?2?tab(s)?1,000?Milligram?By Mouth?3 times a day?as needed?for pain Amlodipine (amLODIPine 5 mg oral tablet)?See Instructions?TAKE 1 TABLET BY MOUTH EVERY DAY apixaban (Eliquis 5 mg oral tablet)?1?tab(s)?5?Milligram?By Mouth?2 times a day Ascorbic Acid (ascorbic acid 500 mg oral tablet)?1?tab(s)?500?Milligram?By Mouth?Daily canakinumab (Ilaris 150 mg/mL subcutaneous solution)?150?Milligram?Subcutaneous Injection?Every [...] Hydroxyurea (hydroxyurea 500 mg oral capsule)?1?capsule?By Mouth?Daily Miscellaneous Rx (BACLOFEN 20 MG TABLET)?1 tab?By Mouth?4 times a day nalOXONE (Narcan 4 mg/0.1 mL nasal spray)?1?spray(s)?4?Milligram?Nares, Both?Once?To be used use one spray in one nostril. if an additional dose is needed, alternate nostril. mayrepeat every 2 to 3 minutes until patient responds Oxycodone (oxyCODONE 30 mg IR tablet)?1?tab(s)?30?Milligram?By Mouth?Every 6 hours?as needed?as needed for pain?for 3?Days Oxycodone (oxyCODONE 30 mg IR tablet)?1?tab(s)?30?Milligram?By Mouth?Every 6 hours?as needed?as needed for pain?for 14?Days Pantoprazole (pantoprazole 40 mg oral delayed release tablet)?1?tab(s)?By Mouth?Daily Tizanidine (tiZANidine 2 mg oral tablet)?4?Milligram?2?tablet?By Mouth?Every 8 hours?as needed?as needed for muscle spasm Triamcinolone Topical (triamcinolone 0.1% topical cream)?1?boyd?Topically?2 times a day?*DO NOT APPLY TO OPEN WOUND(S)* ? Quality Measures Tobacco Use Treatment:? Medications Started none Medications Discontinued Fentanyl patch Doses Changed none PCP Follow-Up/Heads-Up f/u with surgery> as per Brother- appointment is in [facility] ?? Oxycodone 30mg PO BID prescribed for 14 days. Insurance is not covering so prior auth submitted. I also gave another script for 3 days for emergency supply until PA is approved. ?? please refer him to outpatient pain management. ?? Objective Assessment and Plan Assessment:??38-year-old man, history of CVA, chronic pain, hidradenitis, who was admitted 02/16 complaining of??intractable pain in right buttocks.??Patient with history of chronic??right buttocks ulcer??secondary to??hidradenitis suppurativa.?He was initially admitted to observation but has been since upgraded to inpatient.??APS was consulted and gave recommendations for his pain management.??Wound Care??was consulted who recommended surgery eval. Now s/p consults from surgery and ID- advised no further interventions. ?? Chronic pain syndrome (G89.4):?? Presenting with uncontrolled pain in right buttock. patient has chronic pain secondary to hidradenitis suppurativa in right buttock. Presenting with uncontrolled pain due to not having access to home oxycodone. seen by pain medicine - advised to follow the regimen as below. 1. Discontinued fentanyl patch as patient is currently refusing 2. Continue oxycodone 30mg q6hr PRN PO 3. Continue gabapentin 800mg TID PO 4. Continue duloxetine 30mg BID PO 5. Continue Tizanidine 4mg q8hr PRN 6.??Scheduling Tylenol Patient needs follow up with PCP/outpatient pain management to take over pain medications prescriptions. Patient was given??script for 3 days supply of oxycodone - and also another script of 14 days- thisone need prior auth which we have submitted. ? Ulcer of buttock (L98.419):??Superimposed wound infection. Right gluteal??hidradenitis On exam,??extensive buttock wound,??with??significant malodorous, seropurulent??drainage CT scan negative for any appreciable fluid collections or abscess, only extensive induration/inflammation. No acute surgical intervention. Outpatient follow-up??for hidradenitis,??recommend??multidisciplinary team with dermatology and plastic surgery??for elective excision?? Outpatient surgery follow-up as needed.? Continue local wound care:??Dry sterile dressing, Aquacel??to??open areas change daily??and as needed for soilage??to right gluteal region ID advised no need for further antibiotics and agreed with multidisciplinary approach??.??Patient'sbrother told me that patient already have appointment with a surgeon in [facility]. ?? Chronic ischemic left ICA stroke (I69.30):??Continue home Eliquis??5 mg p.o. twice a day Depression (F32.A):??Continue duloxetine?? Hypertension (I10):??Continue home amlodipine??5 mg p.o. daily. Chronic GERD (K21.9):??Continue pantoprazole 40mg qd Iron deficiency anemia (D50.9):??Continue ferrous sulfate 325 mg BID Thrombocytosis (D75.839):?platelets at baseline, continue home hydroxyurea ? . Physical Exam Patient ??seen and examined today ??pain is controlled would like to go home chest: b/l cta, heart:s1s2+, abdomen:s oft, bs+, non tender, neuro: aaox3, extremities: no edema right thigh posterior wound tender. RRIGHT SIDED WEAKNESS. plan d/w CM plan d/w brother.> he told me that patient has appointment with surgeon in [facility] in April patient and agreed with going home with 3 day supply of oxycodone while awaiting PA FOR OXYCODONE OF 14 DAYS. - submitted by hospital medicine. Consultants Dr. Kermit PAGAN, Britta>SURGERY Dr.Gallagher PAGAN, Albertina > ID Pending Results Add On Lab Order ordered on 02/16/2024 Follow-Up Appointments Added Follow Up ?Time Frame ?Comments Derek Tomas?2 weeks Home Health Face to Face *Denotes mandatory bur[place] ?? *I certify that this patient is under my care and that I or an allowed non- physician working with me had a face to face encounter with the patient on this date:??02/21/2024 12:29 ?? *The encounter with the patient was in whole, or in part, for the following medical condition, which is the primary diagnosis(es) for home health care:??Chronic ischemic left ICA stroke (I69.30) Chronic pain syndrome (G89.4) Depression (F32.A) Chronic GERD (K21.9) Iron deficiency anemia (D50.9) Thrombocytosis (D75.839) Ulcer of buttock (L98.419) Hypertension (I10) ?? *Select the indications for the discipline/s that are being arranged for this patient. Nursing (select all that apply): [_] None [x_] Medication management (reconciliation, teaching)?? [_] Chronic disease management?? [x_] Wound care and [...] apply): [_] None [_x] Functional mobility training [_] Home exercise program [...] [x_] Inability to leave home without assistance/supervision [_] Inability to ambulate without assistance [_x] Pain [x_] Decreased strength and endurance [_] Unsteady gait [_] Severe SOB and fatigue [_] Impaired transfers [_] Inability to negotiate stairs [_] Limited weight bearing [_] Mental status change? *Physician Signature: MD Olman *By signing this, I certify that I have personally evaluated the patient and agree with the findings and recommendations as documented above. ? 32??minutes spent on discharge * Jolie Villalobos RN: PERFORM Event Display: Patient Education/Instruction Authored Date: [id number] Inpatient Adult Discharge Instructions. [address] [address] Name: DAVID GUZMÁN : 1985?? Visit: 02/14/2024 21:46?? Current Date: 02/21/2024 15:29 ?? Account: [id number]?? Inpatient Adult Discharge Instructions We would like [...] and their families. Surveys are administered by [employer] ?? If further treatment with your primary care physician or another doctor is recommended, it is important for you to keep the appointment. Call your primary care physician or return to the Emergency Department immediately if your condition worsens, fails to improve, or new symptoms develop. If you need to find a doctor, you can call [facility] Link for a referral at [phone] or toll free at [phone] or log in to [email or web address].. ?? [facility], in keeping with [facility] guidance, no longer requires face masks [...] a health care boyd of your choosing. [employer] is a website that allows you to securely view your medical information including your hospital discharge summary, office visit summaries, medications and follow-up visits. You can also request appointments, renew medications, and request access to your medical information using a health care boyd of your choosing, or just ask a question. You can enroll at [email or web address] or register during your next office visit. You have been discharged from [facility], Patient Care Unit: S3??. If you have any questions regarding these instructions, including results of studies pending, afteryou leave, please call us and we will be happy to assist you 03/12. [facility] Your Care Team Attending Physician Sarah Ellis MD?? Consulting Providers Sarah Ellis MD?? Discharging Providers Sarah Ellis MD Reason for Your Visit hx cva - weakness started at home since yesterday, loss of appetite, chronic r sided weakness from previous [id number]?? Your Diagnosis Chronic GERD Chronic ischemic left ICA stroke Chronic pain syndrome Depression Hypertension Iron deficiency anemia Thrombocytosis Ulcer of buttock Tests Performed Below is a partial list of the tests performed during your hospitalization. You may have had other tests and procedures not included in this list. Please discuss all test results with your provider. Basic Metabolic Panel C-REACTIVE PROTEIN CBC CBC w/ Differential Comprehensive Metabolic Panel CRP ESR Magnesium Level Mg Level Phosphorus Level Procalcitonin Level SEDIMENTATION RATE,AUTOMATED CT Pelvis W/ Contrast Add On Lab Order?? Basic Metabolic Panel?? C Reactive Protein (CRP)?? CBC?? CBC w/ Differential?? CT Pelvis W/ Contrast?? Comprehensive Metabolic Panel?? Magnesium Level?? Phosphorus Level?? Procalcitonin Level?? Sedimentation Rate (ESR)?? Primary Care Provider Derek Tomas MD? Advance Directive Health Care Proxy on File Yes - Health Care Proxy Discharge Vitals Temperature: 98.2 DegF Height: 192 cm Pulse Rate: 78 bpm Weight: 99 kg Respiratory Rate: 16 br/min ?? Systolic Blood Pressure: 118 mm Hg ?? Diastolic Blood Pressure: 66 mm Hg ?? Oxygen Saturation: 95 % ?? Studies Pending All studies ordered during this hospital stay have been completed unless listed below. Please discuss all pending results with your provider listed above in these instructions. ?? Add On Lab Order?? What to do next Instructions From Your Doctor ?? Orders??Care:Wound Site: R Buttocks ??Daily ??Yes? 02/21/24 12:37:00 EDT?? Prescriptions??, ??02/21/24 12:37:00 EDT?? You Need to Schedule the Following Appointments Follow Up with??Conrad Shelton When:??08/31/2024 11:15 AM EDT Where: [address] [place] [address]- Business (1) Follow Up with??Derek Tomas Why: 2 weeks Where: [address] [place] [address]- Business (1) Discharge Medications DAVID GUZMÁN :1985 Visit Date:02/14/2024 Medications: Please continue your medications until treatment is completed or stopped by your provider. Medications not listed below should be discontinued. Discuss any questions related to medications with your provider. What How Much When Why Instructions Next Dose New Oxycodone (oxyCODONE 30 mg IR tablet) 1 tab(s) Oral Every 6 hours as needed for as needed for pain Duration: 14 Days Pickup at [facility] 3 after 7 pm if needed for pain Unchanged Acetaminophen (acetaminophen 500 mg oral tablet) 2 tab(s) Oral 3 times a day as needed for for pain 02/21/24?? 9 pm if needed Unchanged Amlodipine (amLODIPine 5 mg oral tablet) See instructions TAKE 1 TABLET BY MOUTH EVERY DAY ?? 02/22/24 Unchanged apixaban (Eliquis 5 mg oral tablet) 1 tab(s) Oral Twice a day 02/21/24 9pm Unchanged Ascorbic Acid (ascorbic acid 500 mg oral tablet) 1 tab(s) Oral Daily 02/22/24 Unchanged canakinumab (Ilaris 150 mg/ mL subcutaneous solution) 150 Milligram Subcutaneous Injection Every 28 days resume home?? injections schedule Unchanged Cholecalciferol (Vitamin D3 1000 intl units oral tablet) 1 tab(s) Oral Daily 02/22/24 Unchanged Clindamycin Topical (clindamycin 1% topical gel) APPLY TO AFFECTED AREA TOPICALLY TWICE A DAY ?? to affected area daily Unchanged Docusate (docusate sodium 100 mg oral capsule) 1 capsule Oral Twice a day 02/21/24?? 9 pm Unchanged Duloxetine (duloxetine 30 mg oral enteric coated capsule) 1 capsule Oral Twice a day Duration: 30 Days TAKE 1 CAPSULE BY MOUTH EVERY DAY ?? 02/21/24?? 9 pm Unchanged Durable Medical Equipment (Vashe wound solution) See instructions Hydradenitis Use 45mL daily ?? to affected area Unchanged Ferrous Sulfate (ferrous sulfate 325 mg oral tablet) 1 tab(s) Oral Twice a day 02/21/24?? 9pm Unchanged Folic Acid (folic acid 1 mg oral tablet) 1 tab(s) Oral Daily 02/22/24 Unchanged Gabapentin (gabapentin 400 mg oral capsule) 2 capsule Oral 3 times a day Duration: 30 Days 02/21/24?? 9 pm Unchanged Hydroxyurea (hydroxyurea 500 mg oral capsule) 1 capsule Oral Daily 02/22/24 Unchanged Miscellaneous Rx (BACLOFEN 20 MG TABLET) 1 tab Oral 4 times a day 02/21/24?? 9 pm Unchanged nalOXONE (Narcan 4 mg/ 0.1 mL nasal spray) 1 spray(s) Nares, Both Once To be used use one spray in one nostril. if an additional dose is needed, alternate nostril. may repeat every 2 to 3 minutes until patient responds ?? as needed for opioid overdose Unchanged Pantoprazole (pantoprazole 40 mg oral delayed release tablet) 1 tab(s) Oral Daily 02/22/24 Unchanged Tizanidine (tiZANidine 2 mg oral tablet) 2 tab(s) Oral Every 8 hours as needed for as needed for muscle spasm as needed for muscle spasms Unchanged Triamcinolone Topical (triamcinolone 0.1% topical cream) 1 boyd Topically Twice a day *DO NOT APPLY TO OPEN WOUND(S)* ?? 02/21/24?? 9 pm Pharmacy Information [facility] 3: [address] [place] [address] [phone] ?? What How Much When Comments Stop Taking Baclofen (baclofen 20 mg oral tablet) 1 tab(s) Oral 4 times a day as needed for Pain , Mild Stop Taking Fentanyl (fentaNYL 25 mcg/ hr transdermal film, extended release) 1 patch(es) Topically Every 72 hours Duration: 7 Days Prescription Given During Visit Oxycodone (oxyCODONE 30 mg IR tablet) - 1 tablet = 30 mg, By Mouth, Every 6 hours, # 56 tablet, 0 Refills, [facility] [address] [place] [address] [phone]?? Oxycodone (oxyCODONE 30 mg IR tablet) - 1 tablet = 30 mg, By Mouth, Every 6 hours, # 12 tablet, 0 Refills, [facility], [address] [place] [address] [phone]?? Laboratory Results Below is a partial list of the most recent Laboratory test results done prior to this discharge. You may have had other tests and procedures not included in this list. Please discuss all test resultswith your provider. Basic Metabolic Panel (02/21/2024) ???Sodium - 136 mmol/L???Potassium - 4.4 mmol/L???Chloride - 100 mmol/L???Bicarbonate Level - 24 mmol/L???Anion Gap - 12???Glucose Level - 128 mg/dL???BUN - 14 mg/dL???Creatinine-Blood - 0.89 mg/dL???Estimated GFR Creatinine - 113 ML/MIN/1.73 M2???Calcium - 8.7 mg/dL C-REACTIVE PROTEIN (02/15/2024) ???C-Reactive Protein - 2.8 mg/dL CBC (02/21/2024) ???WBC - 6.8 k/mm3???RBC - 3.43 m/mm3???Hgb - 9.8 Gm/dL???Hct - 31.2 %???MCV - 91.0 femtoliters???MCH - 28.6 pg???MCHC - 31.4 Gm/dL???Platelet Count - 547 k/mm3???RDW-SD - 50.5 femtoliters???MPV - 8.4 femtoliters???Nucleated RBC (Automated) - 0.0 #/100 WBC'S???Abs. NRBC - 0.0 k/mm3 CBC w/ Differential (02/18/2024) ???WBC - 6.3 k/mm3???RBC - 3.49 m/mm3???Hgb - 9.9 Gm/dL???Hct - 31.9 %???MCV - 91.4 femtoliters???MCH - 28.4 pg???MCHC - 31.0 Gm/dL???Platelet Count - 502 k/mm3???RDW-SD - 52.5 femtoliters???MPV - 8.9 femtoliters???Nucleated RBC (Automated) - 0.0 #/100 WBC'S???Abs. NRBC - 0.0 k/mm3???Abs. Neut - 3.5 k/mm3???Abs. Lymph - 1.9 k/mm3???Abs. Lares - 0.8 k/mm3???Abs. Eo - 0.1 k/mm3???Abs. Baso - 0.0 k/mm3???Neut % - 54.9 %???Lymph % - 30.0 %???Lares % - 12.3 %???Eos % - 2.2 %???Baso % - 0.3 %???Imm Gran - 0.3 %???Abs. Imm Gran - 0.0 k/mm3 Comprehensive Metabolic Panel (02/20/2024) ???Sodium - 133 mmol/L???Potassium - 4.4 mmol/L???Chloride - 100 mmol/L???Bicarbonate Level - 25 mmol/L???Anion Gap - 8???Glucose Level - 95 mg/dL???BUN - 15 mg/dL???Creatinine-Blood - 0.93 mg/dL???Estimated GFR Creatinine - 108 ML/MIN/1.73 M2???Calcium - 8.6 mg/dL???Protein, Total - 6.8 Gm/dL???Albumin - 3.2 Gm/dL???AG Ratio - 0.9???Alkaline Phosphatase - 148 units/L???AST (SGOT) - 13 units/L???ALT (SGPT) - 10 units/L? ?Bilirubin, Total - <0.2 mg/dL CRP (02/20/2024) ???C-Reactive Protein - 4.7 mg/dL ESR (02/20/2024) ???Sed Rate - 43 mm/hr Magnesium Level (02/21/2024) ???Magnesium - 2.2 mg/dL Mg Level (02/17/2024) ???Magnesium - 2.1 mg/dL Phosphorus Level (02/21/2024) ???Phosphorus - 3.6 mg/dL Procalcitonin Level (02/20/2024) ???Procalcitonin - 0.04 ng/mL SEDIMENTATION RATE,AUTOMATED (02/15/2024) ???Sed Rate - 69 mm/hr You will be contacted within 72 [...] I fully understand and agree that [facility] accepts no responsibility for all my [...] ?? Date for Pt to Sign Valuables/Belongings: 02/16/24 20:29:00 ?? Other Discharge Information ? Case Management Discharge Plan?? Discharge Plan?? Discharge Agency Information?? Discharge Level of Care at Discharge: Homehealth/VNA Name of Agency #1: [facility] Discharge Transportation Arranged: [facility] [address] [facility] [id number] [phone] Agency Application Infrastructure Engineer #1: Intake Mode of Transportation Arranged: Ambulance Service Categories #1: Home health aide, Physical Therapy, Retirement Discharge Arranged Transport Date/Time: 02/21/24 16:00:00 Service Comments #1: [facility] [phone] will provide your care after discharge, if any questions or concerns please contact the agency directly. Discharge VNA/Hospice/Home Care: [facility] [phone] ? Pulmonary Rehab Status?? Pulmonary Rehab Discharge [...] are strongly encouraged to quit. Please call [facility] [employer] Link at [phone] or [phone] ([phone]) or log in to [email or web address] for referrals to smoking cessation programs. ?? 987 Suicide & Crisis Lifeline is available 03/12 if you or someone you know needs to find a reason to keep living. By calling 566 you'll be connected to a skilled, trained counselor at a crisis center in your area. INPATIENT DISCHARGE INSTRUCTIONS SIGNATURE PAGE GUZMÁN DAVID Location:[facility] Registration Date and Time:02/14/2024 21:46 EDT Primary Care Physician: Genoveva PAGAN [facility], Attending Physician: Caleb PAGAN, [facility], I DAVID GUZMÁN, have received the above patient education materials/instructions and have verbalized understanding. If ambulance or transport services are being used I further acknowledge being given a choice of service. ?? If you need to contact me, please call me at this number: . Patient/Food Vendor Name: Patient/Food Vendor Signature: Relationship to Patient: Witness Name/Signature: Date: * Sarah Ellis MD: SIGN Lokesh BUSTAMANTE, Ami: PERFORM, SIGN Lokesh RN, Ami: SIGN, VERIFY Lokesh BUSTAMANTE, Ami: VERIFY Event Display: Patient Education Handout Authored Date: [id number] * Shruti Pickett RN: PERFORM Event Display: Discharge/Transfer Note Hospital Authored Date: [id number] Discharge Planning Nursing Entered On: 02/20/2024 16:06 EDT Performed On: 02/20/2024 16:06 EDT by Shruti Pickett RN Discharge Planning Nursing Anticipated discharge : Unable to determine Shruti Pickett RN - 02/20/2024 16:06 EDT Patient Care team information Care Team Personnel Name: Rita Welch RN Position: [facility] RN Member Role: Primary Care Nurse Name: Sanna Cardozo RN Position: [facility] RN Member Role: Primary Care Nurse Name: Anu Lipscomb RN Position: S RN Member Role: Primary Care Nurse Name: Jeanne Bryant RN Position: S RN Member Role: Primary Care Nurse Name: Mitch Guido RN Position: S RN Member Role: Primary Care Nurse Name: Areli Pittman RN Position: [facility] ED RN W/OE and Tasks Member Role: Primary Care Nurse Name: Albertina Kerr RN Position: [facility] RN Member Role: Primary Care Nurse Name: Dreek Tomas MD Position: [facility] Resident Member Role: PCP Address: Address: [address] [place] [id number] Name: Mari Suh RN Position: [facility] RN Member Role: Primary Care Nurse Name: Jen Garibay RN Position: [facility] RN Member Role: Primary Care Nurse Name: Shadia Grover RN Position: [facility] RN Member Role: Primary Care Nurse Name: Monique Irwin LPN Position: [facility] RN Member Role: Primary Care Nurse Name: Lianna Epstein RN Position: [facility] RN Member Role: Primary Care Nurse Name: Austin Wright RN Position: [facility] RN Member Role: Primary Care Nurse Name: Mk Knutson LPN Position: [facility] RN Member Role: Primary Care Nurse Name: Vicenta Barnett RN Position: [facility] RN Member Role: Primary Care Nurse Name: Farhana Garcia RN Position: [facility] RN Member Role: Primary Care Nurse Name: Kenyatta Villegas RN Position: [facility] RN Member Role: Primary Care Nurse Name: Albertina Adams RN Position: [facility] RN Member Role: Primary Care Nurse Name: Jada Bolton RN Position: [facility] RN Member Role: Primary Care Nurse Name: Love Franklin RN Position: [facility] RN Member Role: Primary Care Nurse Name: Ricardo Russell RN Position: [facility] RN Member Role: Primary Care Nurse Name: Gissell Jernigan RN Position: [facility] RN Member Role: Primary Care Nurse Name: Farhana Green RN Position: [facility] RN Member Role: Primary Care Nurse Name: Cydney Delgado RN Position: [facility] RN Member Role: Primary Care Nurse Name: Debbie Rios RN Position: [facility] RN Member Role: Primary Care Nurse Name: Sharon Mendez RN Position: [facility] RN Member Role: Primary Care Nurse Name: Mookie Christianson RN Position: [facility] RN Member Role: Primary Care Nurse Name: Ally Boyd RN Position: [facility] RN Member Role: Primary Care Nurse Name: Javed Oneill RN Position: [facility] RN Member Role: Primary Care Nurse Name: Frances Quach RN Position: [facility] RN Member Role: Primary Care Nurse Name: Sandie Mejia RN Position: [facility] RN Member Role: Primary Care Nurse Name: Kriss Castillo RN Position: [facility] RN Member Role: Primary Care Nurse Name: Lynn Stewart RN Position: [facility] RN Member Role: Primary Care Nurse Name: Amanda Johnson RN Position: [facility] RN Member Role: Primary Care Nurse Name: Jolie Villalobos RN Position: [facility] RN Member Role: Primary Care Nurse Name: Axel Savage RN Position: [facility] RN Member Role: Primary Care Nurse Name: Dirk Driver RN Position: [facility] RN Member Role: Primary Care Nurse Name: Glenys Bee RN Position: [facility] RN Member Role: Primary Care Nurse Name: Praveen Maurer RN Position: [facility] RN Member Role: Primary Care Nurse Name: Filemon King RN Position: [facility] RN Member Role: Primary Care Nurse Name: Gomez Corona RN Position: [facility] RN Member Role: Primary Care Nurse Name: Lauren Guevara RN Position: [facility] RN Member Role: Primary Care Nurse Name: Annamaria Quinn RN Position: [facility] RN Member Role: Primary Care Nurse Name: Deana Short RN Position: [facility] RN Member Role: Primary Care Nurse Name: Lashawn Nagy RN Position: [facility] RN Member Role: Primary Care Nurse Name: Rhonda Tate LPN Position: [facility] RN Member Role: Primary Care Nurse Name: Jacquelin Naranjo RN Position: [facility] RN Member Role: Primary Care Nurse Name: Radha Jain RN Position: [facility] RN Member Role: Primary Care Nurse Name: Glenys Fox RN Position: [facility] RN Member Role: Primary Care Nurse Name: Reilly Moreno RN Position: [facility] RN Member Role: Primary Care Nurse Care Team Related Persons Name: BEVERLY REYNAGA Address: home [address], [place] Name: HEENA GUZMÁN Address: home [address], [place] Name: AISLINN DE LA PAZ Address: home [address] [place] [id number]
--- OUTSIDE RECORDS SUMMARY | 2024-03-09 23:51 | XMS_ITS | Patient Health Record ---
Author Organization [facility] Address [address] [place] [address] [phone] Support Name Relationship Address Phone Cynthia Diaz Emergency Contact [address] [facility], [address] [place] [address] David Guzmán Guarantor Unknown [phone] REASON FOR REFERRAL No Information SOCIAL HISTORY Sex Assigned At : Social History Observation Description Sex Assigned At Unknown PLAN OF TREATMENT No Information
--- NOTE | 2024-03-10 00:37 | ED_ITS ---
HPI - General Adult General Chief complaint: General Medical Stated complaint: bed sores Time Seen by Provider: 03/10/24 00:17 Source: patient, family, RN notes reviewed and old records reviewed Mode of arrival: EMS Limitations: no limitations History of Present Illness ED Provider: Baldemar HAND narrative: 38-year-old male with past medical history significant for previous CVA with extended hemiparesis on Eliquis, hidradenitis suppurativa presents for evaluation of ?bed sores. ? Patient has chronic abscesses to his buttocks on both sides. He has had previous excisions of both buttocks performed for chronic abscesses Patient reports that he always has abscesses He presents today for worsening drainage mostly from the right side He also has not had a primary doctor for the last 5 months due to insurance issues. He is due to see his new primary doctor tomorrow on 03/11/2024 The patient is looking for additional pain medication Related Data Home Medications ?Medication ?Instructions ?Recorded ?Confirmed acetaminophen 500 mg tablet 500 mg PO Q4H PRN Pain 02/17/23 02/17/23 amlodipine 5 mg tablet 5 mg PO DAILY 02/17/23 02/17/23 apixaban 5 mg tablet (Eliquis) 5 mg PO BID 02/17/23 02/17/23 baclofen 20 mg tablet 20 mg PO QID 02/17/23 02/17/23 canakinumab (PF) 150 mg/mL 150 mg subcut Q4W 02/17/23 02/17/23 subcutaneous solution (Ilaris (PF)) chlorhexidine gluconate 4 % 1 appl topical DAILY 02/17/23 02/17/23 topical liquid clindamycin phosphate 1 % topical 1 appl topical BID PRN flared 02/17/23 02/17/23 gel lesion prophylaxis duloxetine 30 mg capsule,delayed 30 mg PO DAILY 02/17/23 02/17/23 release ferrous sulfate 325 mg (65 mg 325 mg PO DAILY 02/17/23 02/17/23 iron) tablet fluoxetine 20 mg capsule 20 mg PO DAILY 02/17/23 02/17/23 folic acid 1 mg tablet 1 mg PO DAILY 02/17/23 02/17/23 gabapentin 300 mg capsule 300 mg PO TID 02/17/23 02/17/23 omeprazole 40 mg capsule,delayed 40 mg PO DAILY@0630 02/17/23 02/17/23 release oxycodone 10 mg tablet 10 mg PO Q4H PRN Pain 02/17/23 02/17/23 scopolamine base 1 mg over 3 days 1 mg topical Q3D 02/17/23 02/17/23 transdermal patch (Transderm-Scop) tizanidine 4 mg tablet 2 mg PO TID PRN Muscle Spasm 02/17/23 02/17/23 Previous Rx's ?Medication ?Instructions ?Recorded oxycodone 5 mg capsule 5 mg PO Q8H PRN pain #10 caps 02/23/23 cephalexin 500 mg capsule 500 mg PO QID 10 days #40 caps 01/21/24 doxycycline hyclate 100 mg tablet 100 mg PO BID #20 tabs 01/21/24 oxycodone 30 mg tablet 30 mg PO Q6H PRN pain #30 tabs 01/22/24 cephalexin 500 mg capsule 500 mg PO QID #56 caps 03/10/24 doxycycline hyclate 100 mg tablet 100 mg PO BID #28 tabs 03/10/24 oxycodone 30 mg tablet 30 mg PO Q6H PRN pain #28 tabs 03/10/24 Allergies Allergy/AdvReac Type Severity Reaction Status Date / Time No Known Allergies Allergy Verified 03/09/24 22:24 Review of Systems 2 Constitutional: Constitutional: Denies body ache(s), Denies chills, Denies fever(s) and Denies frequent falls Eyes: Eyes: Denies blurry vision ENT: Denies vertigo and Denies dizziness Cardiovascular: Cardiovascular: Denies chest pain and Denies dyspnea Respiratory: Respiratory: Denies cough and Denies dyspnea Gastrointestinal: Gastrointestinal: Denies abdominal pain, Denies change in bowel habits, Denies nausea and Denies vomiting Musculoskeletal: Musculoskeletal: Denies back pain Integumentary/Breasts: Skin/Breast: Reports erythema, Denies rash, Reports skin pain, Reports skin swelling, Reports skin ulcer, Reports sores and Reports wounds Neurologic: Denies vertigo, Denies dizziness and Denies frequent falls Psychiatric: Psychiatric: Denies anxiety PMFSH Past Medical History Medical History Abscess and cellulitis of gluteal region CVA (cerebral vascular accident) Opiate abuse, continuous Social History Social History Alcohol intake: never Patient Tobacco Use Status: Never used Tobacco Smoked in Last 30 Days: Yes Use of substances other than those prescribed or required for medical reasons: Yes Substance Use Type: Marijuana Advance Directives: Yes Advance Directives on File: Yes Advance Directives Date on File: 02/19/23 Do you have a plan to hurt others: No Plan Physical Exam ED Vital Signs: Vital Signs - 24 hr 03/09/24 22:23 Temperature 97.7 F Pulse Rate 62 Respiratory Rate 18 Blood Pressure 105/54 L Pulse Oximetry 97 Oxygen Delivery Method Room Air BMI result Body Mass Index 26.5 Const General: comfortable, no acute distress, alert and awake Nutritional Appearance: well nourished Orientation/consciousness: patient oriented x3 HENMT Head: Yes normocephalic and Yes atraumatic Eyes Eyelids: Yes eyelids normal Conjunctivae: conjunctivae normal Sclerae: sclerae normal Corneas: corneas normal Pupils: Equal, round and reactive pupils present EOM: EOMs intact bilaterally Neck Neck: Yes full ROM Resp Effort & Inspection: normal respiratory effort, able to speak in complete sentences, no audible wheezes and not labored Auscultation: clear to auscultation bilaterally Cardio Rate: regular rate Rhythm: regular rhythm GI Inspection: No distended Palpation (GI): Soft to palpation, not firm, nontender, no guarding and not rigid Skin Other: Patient has chronic appearing wounds to the buttocks bilaterally but there is induration, fluctuance an active drainage from the buttocks bilaterally. The drainage is foul-smelling General skin exam: elasticity normal Neuro General: patient oriented x3 Cranial nerves: Yes Equal, round and reactive pupils present and Yes Bilaterally intact EOM present Cognition (Neuro): normal cognition Extrem Other: Moving all extremities well without any obvious deformities Medications Administered Discontinued Medications Generic Name Dose Route Start Last Admin Trade Name Freq PRN Reason Stop Dose Admin Cephalexin HCl 500 mg 03/10/24 00:35 03/10/24 00:52 Cephalexin 500 Mg Capsule PO 03/10/24 00:36 500 mg ONCE ONE Administration Doxycycline Monohydrate 100 mg 03/10/24 00:35 03/10/24 00:52 Doxycycline Monohydrate 100 Mg Capsule PO 03/10/24 00:36 100 mg ONCE ONE Administration Oxycodone HCl 30 mg 03/10/24 00:37 03/10/24 00:52 Oxycodone Hcl Immed Release 15 Mg Tablet PO 03/10/24 00:38 30 mg ONCE ONE Administration Medical Decision Making Medical Decision Making MDM Narrative: 38-year-old male with history as documented above presents for evaluation of bed sores. ? Patient has acute on chronic wounds. He has active foul-smelling drainage, increased pain. He has no fever. Given the drainage and increased pain I recommended labs including blood cultures and a CT scan of the pelvis with IV contrast. The patient states that he does not want any further testing does. He reports that he is due to see his new PCP tomorrow and he has waited 5 months for that appointment. He will refuse to be admitted under any circumstance. He reports that if his primary doctor sent him back to the ED after his appointment tomorrow than he is willing to come back and have a further workup at that time. Given that the patient is not septic in his able to tolerate oral antibiotics, he is alert and oriented cephalexin, doxycycline. I did give him a 1 week supply of his chronic pain medication. Further refills can be made by his primary doctor Differential Diagnosis Differential Diagnoses: The differential diagnosis associated with the presentation includes Cellulitis Abscess Chronic wounds Opiate dependence Discharge Plan Discharge Clinical Impression: Abscess and cellulitis of gluteal region Patient Disposition: Home, Self-Care Instructions: Abscess Follow-up (ED) Additional Instructions: Your appear to have an abscess of your buttocks. This will likely require further evaluation and management. You declined labs and imaging today Take the doxycycline and cephalexin as prescribed for 2 weeks I recommend that you return for any fevers, worsening pain. I suspect that your primary doctor will send you back to the hospital when you see them tomorrow Alternatively, you may follow-up with general surgery on an outpatient basis Prescriptions: New cephalexin 500 mg capsule 500 mg PO QID Qty: 56 0RF doxycycline hyclate 100 mg tablet 100 mg PO BID Qty: 28 0RF oxycodone 30 mg tablet 30 mg PO Q6H PRN (Reason: pain) Qty: 28 0RF Rx Instructions: Partial Fill upon patient request. No Action doxycycline hyclate 100 mg tablet 100 mg PO BID Qty: 20 0RF cephalexin 500 mg capsule 500 mg PO QID 10 Days Qty: 40 0RF oxycodone 30 mg tablet 30 mg PO Q6H PRN (Reason: pain) Qty: 30 0RF Rx Instructions: Partial Fill upon patient request. tizanidine 4 mg tablet 2 mg PO TID PRN (Reason: Muscle Spasm) amlodipine 5 mg tablet 5 mg PO DAILY omeprazole 40 mg capsule,delayed release(DR/EC) 40 mg PO DAILY@0630 clindamycin phosphate 1 % gel 1 appl topical BID PRN (Reason: flared lesion prophylaxis) ferrous sulfate 325 mg (65 mg iron) tablet 325 mg PO DAILY scopolamine base [Transderm-Scop] 1 mg over 3 days patch 3 day 1 mg topical Q3D fluoxetine 20 mg capsule 20 mg PO DAILY duloxetine 30 mg capsule,delayed release(DR/EC) 30 mg PO DAILY oxycodone 10 mg tablet 10 mg PO Q4H PRN (Reason: Pain) Eliquis 5 mg tablet 5 mg PO BID Ilaris (PF) 150 mg/mL solution 150 mg subcut Q4W baclofen 20 mg tablet 20 mg PO QID gabapentin 300 mg capsule 300 mg PO TID folic acid 1 mg tablet 1 mg PO DAILY chlorhexidine gluconate 4 % Liquid 1 appl TOPICAL DAILY Rx Instructions: apply to areas of hidradenitis suppurativa acetaminophen 500 mg Tablet 500 mg PO Q4H PRN (Reason: Pain) oxycodone 5 mg capsule 5 mg PO Q8H PRN (Reason: pain) Qty: 10 0RF Rx Instructions: Partial Fill upon patient request. Referrals: Reza Early MD [Physician] - (gluteal abscess, chronic) Print Language: Kiswahili
[2024-03-10] MEDS: oxyCODONE HCl Immed Release 15 MG TABLET 30 MG PO (00:52)
[2024-03-10] MEDS: cephALEXin 500 MG CAPSULE PO (00:52)
[2024-03-10] MEDS: Doxycycline Monohydrate 100 MG CAPSULE PO (00:52)
--- NOTE | 2024-03-10 00:58 | PC.NURSE ---
pt medicated as ordered, when asked, how pt was getting home the mother stated, by ambulance
[2024-03-10 01:38] VITALS: BP 121/63; PULSE 67; RESP 16; TEMP 36.9; O2SAT 99
== END 2024-03-10 01:39 | disposition home or self-care (01) ==
PROVIDERS: Emergency Provider Emergency Medicine; PCP Internal Medicine
DX: L02.31 Cutaneous abscess of buttock (principal); L03.317 Cellulitis of buttock
CPT/HCPCS: 99283; 99284

== ENCOUNTER 2024-03-11 10:11 | Outpatient (AMB) | payer OTHER, SELFPAY ==
--- NOTE | 2024-03-11 07:57 | A.OFFPC_ITS ---
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 Intake Note: new patient to establish care and follow up on wound Allergies No Known Allergies Allergy (Verified 03/11/24 10:38) Medication List - Last Reconciled 03/11/24 by AMIE ChildressP- acetaminophen 500 mg PO Q4H PRN apixaban (Eliquis) 5 mg PO BID ascorbic acid (vitamin C) (Vitamin C) 500 mg PO DAILY ascorbic acid (vitamin C) mg PO baclofen 20 mg PO QID canakinumab (PF) (Ilaris (PF)) 150 mg subcut Q4W cephalexin 500 mg PO QID 10 days chlorhexidine gluconate 4% 1 appl topical DAILY clindamycin phosphate 1% 1 appl topical BID PRN docusate sodium 100 mg PO BID doxycycline hyclate 100 mg PO BID doxycycline hyclate 100 mg PO BID doxycycline monohydrate 100 mg PO BID duloxetine 30 mg PO DAILY ferrous sulfate 325 mg PO DAILY folic acid 1 mg PO DAILY gabapentin 300 mg PO TID omeprazole 40 mg PO DAILY@0630 oxycodone 30 mg PO Q6H PRN tizanidine 2 mg PO TID PRN Tobacco use date assessed: 03/11/24 Dental Screening Dental Screen Date: 03/11/24 Did you have a dental visit in the last 12 months?: No Did you have a dental problem in the last 6 months where you did not have access to dental care?: No Was dental information given to patient?: Patient has dentist HPI HPI Comments History of Present Illness Details 38 y/o M with CVA with R hemiparesis (20 21) now on Eliquis, hidradenitis suppurativa, opiate dependence in remission Social: Living at home w/ Mom or Brother; Wheelchair dependent Specialist: [facility] in [place] Health Maintenance: Tdap reports UTD Flu shot 01/2024 Here today with his Mom and brother to est care and for a hos dis follow. [place] [facility] [place]. Note as below: 38-year-old male with history as documen kimberley above presents for evaluation of bed sores. ? Patient has acute on chronic wounds. He has active foul-smelling drainage, increased pain. He has no fever. Given the drainage and increased pain I recommended labs including blood cultures and a CT scan of the pelvis with IV contrast. The patient states that he does not want any further testing does. He reports that he is due to see his new PCP tomorrow and he has waited 5 months for that appointment. He will refuse to be admitted under any circumstance. He reports that if his primary doctor sent him back to the ED after his appointment tomorrow than he is willing to come back and have a further workup at that time. Given that the patient is not septic in his able to tolerate oral antibiotics, he is alert and oriented cephalexin, doxycycline. I did give him a 1 week supply of his chronic pain medication. Further refills can be made by his primary doctor Your appear to have an abscess of your buttocks. This will likely require further evaluation and management. You declined labs and imaging today Take the doxycycline and cephalexin as prescribed for 2 weeks I recommend that you return for any fevers, worsening pain. 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 He is managed by [facility] in [place]. Was on Humira at one point. He and family are agreeable for admission at [facility] Aware that I will see him for f/u once discharged. Exam: Awake, Alert, NAD, chronically ill appearing, sitting in wheelchair RRR LS CTAB Right hemiparesis upper and lower ext, R facial droop, slow slurred speech, word finding difficulties PP normal bilat, no edema Skin of buttocks reviewed from image done at ED last night Plan: Expect call to [facility] [place] 1123. PT initially stated he would not go until tomorrow. After discussion of risk and benefit, agreed to go this afternoon. RTO within 7 days of discharge for TCM visit. This note is constructed using voice recognition software. While every effort has been made to ensure accuracy in sand tester, still errors may have been included Sometimes, these errors may affect the content or meaning of the given sentence . Total time spent caring for the patient today was 45 minutes. This includes time spent before the visit reviewing the chart, time spent during the visit, and time spent after the visit on documentation [facility] Medical History (Updated 03/11/24 @ 13:10 by Kisha Solano [facility]) Hidradenitis Imbalance Neuropathy Anxiety and depression GERD (gastroesophageal reflux disease) Hypertension Abscess and cellulitis of gluteal region CVA (cerebral vascular accident) Opiate abuse, continuous Surgical History (Updated 03/11/24 @ 11:27 by Deandre King MA) No pertinent past surgical history Family History (Updated 03/11/24 @ 11:30 by Deandre King MA) Mother Mental health disorder Asthma Thyroid disease Cervical cancer Maternal Grandmother Mental health disorder Asthma Diabetes Cardiovascular disease Thyroid disease Father Substance abuse Hypertension High cholesterol Cardiovascular disease Clotting disorder Maternal Grandfather Diabetes Cardiovascular disease Paternal Grandfather Clotting disorder Social History (Updated 03/11/24 @ 10:32 by Deandre King MA) Household Members: None Both parents involved: No Caregiver staying overnight: Yes (mom) Housing: Apartment Are you a primary geriatric personal care aide to a significant other at home: No Do you presently have visiting nurse or other home services: Yes 75 years or older and lives alone: No Alcohol intake: never Patient Tobacco Use Status: Current everyday Tobacco user Cigarettes Per Day: 4 e-Cigarette/Vaping Use: Never Used Second Hand Smoke Exposure: No Substance Use Type: Marijuana Advance Directives Date on File: 02/19/23 Current occupational status: disabled Cognitive needs: No Hearing needs: No Vision needs: No Questionnaire PHQ-9 Over the last 2 weeks, how often have you been bothered by any of the following problems? 1. Little interest or pleasure in doing things: not at all 2. Feeling down, depressed, or hopeless: not at all 3. Trouble falling or staying asleep, or sleeping too much: not at all 4. Feeling tired or having little energy: not at all 5. Poor appetite or overeating: not at all 6. Feeling bad about yourself - or that you are a failure or have let yourself or your family down: not at all 7. Trouble concentrating on things, such as reading the newspaper or watching television: not at all 8. Moving or speaking so slowly that other people could have noticed. Or the opposite - being so fidgety or restless that you have been moving around a lot more than usual: not at all 9. Thoughts that you would be better off or of hurting yourself in some way: not at all Total score: 0 Depression Screening Interpretation: Negative Depression Screening Done: Yes 27666 - PHQ-9 Billing: Yes Source: Developed by Drs. Bismark Gordon, Carmen Hardy, See Case and colleagues, with an educational sandra from [employer]. Thrive Questionnaire Date Thrive assessed: 03/11/24 I am a: Parent/Caregiver What is your living situation today?: I have a steady place to live Within the past 12 months, did the food you bought not last and you didn't have the money to get more?: Never true Within the past 12 months, did you worry whether your food would run out before you got money to buy more?: Never true Do you have trouble paying for medicines?: No Do you have trouble getting transportation to medical appointments?: No Do you have trouble paying your heating and electricity bill?: No Do you have trouble taking care of your child, family member or friend?: No Do you have trouble with day-to-day activities such as bathing, preparing meals, shopping, managing finances, etc.?: No Are you currently unemployed and looking for a job?: No Are you interested in more education?: No Please select the resources that you would like help with: None Currently or been in a relationship where the following occur: No concerns reported THRIVE Score: 0 AUDIT C Alcohol Use Questionnaire (AUDIT-C) 1. How often do you have a drink containing alcohol?: Never 3. How often do you have six or more drinks on one occasion?: Never Total Score: 0 Score Reviewed/Action Taken: Yes ANNA-7 AMB Questionnaire ANNA-7 Date ANNA - 7 assessed: 03/11/24 Feeling nervous, anxious, or on edge: 0 = Not at all Not being able to stop or control worryin = Not at all Worrying too much about different things: 0 = Not at all Trouble relaxin = Not at all Being so restless that it is hard to sit still: 0 = Not at all Becoming easily annoyed or irritable: 0 = Not at all Feeling afraid as if something awful might happen: 0 = Not at all Total ANNA-7 score (0-4 normal; 5-9 mild; 10-14 moderate; 15-21 severe): 0 Source: Developed by Drs. Bismark Gordon, Carmen Hardy, See Case and colleagues, with an educational sandra from [employer]. ANNA-7 Assessment Billing ANNA-7 Assessment Tool: ANNA-7 Assessment 29529 Physical exam (Primary Care) Vital Signs: Last Vital Signs Pulse 86 03/11/24 10:17 Resp 14 03/11/24 10:17 BP 136/74 03/11/24 10:17 Pulse Ox 98 03/11/24 10:17 Oxygen Delivery Method Room Air 03/11/24 10:17 BMI result Body Mass Index 26.4 Tobacco/Smoking Status: Tobacco use Status Tobacco use date assessed 03/11/24 03/11/24 10:33 Patient Tobacco Use Status Current everyday Tobacco 03/11/24 10:33 e-Cigarette/Vaping Use Never Used 03/11/24 10:33 Depression Screening Interpretation: Negative Currently or been in a relationship where the following occur: No concerns reported Coding Level of Care Code New Pt Level 4 (40485) Complex EM visit Add On G2211 Diagnoses Hospital discharge follow-up Z09 Abscess and cellulitis of gluteal region L02.31; L03.317 Hidradenitis suppurativa L73.2 Right hemiparesis G81.91 ANNA (generalized anxiety disorder) F41.1 Mild episode of recurrent major depressive disorder F33.0 Major depression episode severity: mild Opiate abuse, continuous F11.10 Cerebrovascular accident (CVA) due to occlusion of left carotid artery I63.232 CVA mechanism: occlusion Precerebral and cerebral artery: carotid artery Laterality of affected vessel: left Additional Codes ANNA-7 Assessment Billing - ANNA-7 Assessment Tool: ANNA-7 Assessment [id number] ([id number]) Assessment & Plan Assessment & Plan (1) Hospital discharge follow-up: Code(s): Z09 - Encounter for follow-up examination after completed treatment for conditions other than malignant neoplasm Plan: . (2) Abscess and cellulitis of gluteal region: Code(s): L02.31 - Cutaneous abscess of buttock; L03.317 - Cellulitis of buttock Category: Medical Plan: . (3) Hidradenitis suppurativa: Code(s): L73.2 - Hidradenitis suppurativa Category: Medical Plan: . (4) Right hemiparesis: Comment: s/p CVA affecting right upper and lower ext Code(s): G81.91 - Hemiplegia, unspecified affecting right dominant side Category: Medical Plan: . (5) ANNA (generalized anxiety disorder): Code(s): F41.1 - Generalized anxiety disorder Category: Medical Plan: . (6) MDD (major depressive disorder), recurrent episode: Code(s): F33.9 - Major depressive disorder, recurrent, unspecified Category: Medical Qualifiers: Major depression episode severity: mild Qualified Code(s): F33.0 - Major depressive disorder, recurrent, mild Plan: . (7) Opiate abuse, continuous: Comment: will need to further review this Code(s): F11.10 - Opioid abuse, uncomplicated Category: Medical Plan: . (8) CVA (cerebral vascular accident): Comment: 2020 dense hemiparesis on the right side, CTA of the head and neck showed blockage from upper end of left ICA all the way to left MCA and KRISTAL origin no blood flow on the left side patient started on tPA transferred to at [facility] neurointerventional Code(s): I63.9 - Cerebral infarction, unspecified Category: Medical Qualifiers: CVA mechanism: occlusion Precerebral and cerebral artery: carotid artery Laterality of affected vessel: left Qualified Code(s): I63.232 - Cerebral infarction due to unspecified occlusion or stenosis of left carotid arteries Plan: . Medications: Discontinued oxycodone Partial Fill upon patient request. Discontinued Reason: Patient no longer taking 5 mg PO Q8H PRN 10 caps 0RF pain cephalexin Discontinued Reason: Patient Completed Course 500 mg PO QID 10 days 40 caps 0RF cephalexin Discontinued Reason: Duplicate 500 mg PO QID 56 caps 0RF doxycycline hyclate Discontinued Reason: Patient Completed Course 100 mg PO BID 20 tabs 0RF oxycodone Partial Fill upon patient request. Discontinued Reason: Duplicate 30 mg PO Q6H PRN 30 tabs 0RF pain
[2024-03-11 10:17] VITALS: BP 136/74; PULSE 86; RESP 14; O2SAT 98; BMI 26.4
== END 2024-03-11 10:59 | disposition home or self-care (01) ==
PROVIDERS: PCP Nurse Practitioner Family; Visit Provider Nurse Practitioner Family
DX: G81.91 Hemiplegia, unspecified affecting right dominant side (principal); F33.0 Major depressive disorder, recurrent, mild; F11.10 Opioid abuse, uncomplicated; I63.232 Cerebral infarction due to unspecified occlusion or stenosis of left carotid arteries; Z09 Encounter for follow-up examination after completed treatment for conditions other than malignant neoplasm; L02.31 Cutaneous abscess of buttock; L03.317 Cellulitis of buttock; L73.2 Hidradenitis suppurativa; F41.1 Generalized anxiety disorder

== ENCOUNTER → 2024-03-11 10:11 | Outpatient (BNVA) | payer OTHER, SELFPAY | PROVIDERS: PCP Nurse Practitioner Family; Visit Provider Nurse Practitioner Family | DX: Z09 Encounter for follow-up examination after completed treatment for conditions other than malignant neoplasm (principal); L02.31 Cutaneous abscess of buttock; L03.317 Cellulitis of buttock; L73.2 Hidradenitis suppurativa; G81.91 Hemiplegia, unspecified affecting right dominant side; F33.0 Major depressive disorder, recurrent, mild; F11.10 Opioid abuse, uncomplicated; I63.232 Cerebral infarction due to unspecified occlusion or stenosis of left carotid arteries | CPT/HCPCS: 96127; 99202 ==

== ENCOUNTER 2024-03-11 17:11 | Emergency (ER) | payer OTHER, SELFPAY ==
[2024-03-11 17:26] VITALS: BP 106/61; BP 126/82; PULSE 66; PULSE 70; RESP 16; TEMP 36.7; O2SAT 97; BMI 30.2
--- NOTE | 2024-03-11 17:56 | ED.GENADULT ---
HPI - General Adult General Chief complaint: Skin/Abscess/Foreign Body Stated complaint: abscess on gluteal region Time Seen by Provider: 03/11/24 17:36 History of Present Illness ED Provider: Griselda [facility] narrative: 38-year-old male with past medical history of stroke with residual right hemiparesis on Eliquis presenting for pain to his right buttock. Patient has been experiencing worsening pain to his right buttock as of late. He states that he has had bed sores for the past 3-4 years and is concerned that he has an abscess as he has noticed bleeding and drainage. He denies fevers, chills, abdominal pain, nausea, vomiting, urinary symptoms. Related Data Home Medications ?Medication ?Instructions ?Recorded ?Confirmed acetaminophen 500 mg tablet 500 mg PO Q4H PRN Pain 02/17/23 02/17/23 apixaban 5 mg tablet (Eliquis) 5 mg PO BID 02/17/23 02/17/23 baclofen 20 mg tablet 20 mg PO QID 02/17/23 02/17/23 canakinumab (PF) 150 mg/mL 150 mg subcut Q4W 02/17/23 02/17/23 subcutaneous solution (Ilaris (PF)) chlorhexidine gluconate 4 % 1 appl topical DAILY 02/17/23 02/17/23 topical liquid clindamycin phosphate 1 % topical 1 appl topical BID PRN flared 02/17/23 02/17/23 gel lesion prophylaxis duloxetine 30 mg capsule,delayed 30 mg PO DAILY 02/17/23 02/17/23 release ferrous sulfate 325 mg (65 mg 325 mg PO DAILY 02/17/23 02/17/23 iron) tablet folic acid 1 mg tablet 1 mg PO DAILY 02/17/23 02/17/23 gabapentin 300 mg capsule 300 mg PO TID 02/17/23 02/17/23 omeprazole 40 mg capsule,delayed 40 mg PO DAILY@0630 02/17/23 02/17/23 release tizanidine 4 mg tablet 2 mg PO TID PRN Muscle Spasm 02/17/23 02/17/23 ascorbic acid (vitamin C) 500 mg 500 mg PO DAILY 03/11/24 03/11/24 tablet (Vitamin C) Previous Rx's ?Medication ?Instructions ?Recorded doxycycline hyclate 100 mg tablet 100 mg PO BID #28 tabs 03/10/24 oxycodone 30 mg tablet 30 mg PO Q6H PRN pain #28 tabs 03/10/24 Allergies Allergy/AdvReac Type Severity Reaction Status Date / Time No Known Allergies Allergy Verified 03/11/24 17:29 Review of Systems Review of Systems: Patient endorses right sideed butt pain Yes all other systems are reviewed and are negative [facility] Past Medical History Attestation statement: The following information was validated with the patient. [facility] Narrative: CVA, right-sided hemiparesis Source: old records reviewed Medical History (Updated 03/11/24 @ 17:56 by Niuknj Villalobos MD) Hidradenitis Imbalance Neuropathy Anxiety and depression GERD (gastroesophageal reflux disease) Hypertension Abscess and cellulitis of gluteal region CVA (cerebral vascular accident) Opiate abuse, continuous Surgical History (Updated 03/11/24 @ 11:27 by Deandre King MA) No pertinent past surgical history Family History Family History (Updated 03/11/24 @ 11:30 by Deandre King MA) Mother Mental health disorder Asthma Thyroid disease Cervical cancer Maternal Grandmother Mental health disorder Asthma Diabetes Cardiovascular disease Thyroid disease Father Substance abuse Hypertension High cholesterol Cardiovascular disease Clotting disorder Maternal Grandfather Diabetes Cardiovascular disease Paternal Grandfather Clotting disorder Social History Social History (Updated 03/11/24 @ 10:32 by Deandre King MA) Household Members: None Housing: Apartment Are you a primary healthcare science specialist to a significant other at home: No Do you presently have visiting nurse or other home services: Yes Alcohol intake: never Patient Tobacco Use Status: Current everyday Tobacco user Cigarettes Per Day: 4 Smoked in Last 30 Days: No e-Cigarette/Vaping Use: Never Used Second Hand Smoke Exposure: No Use of substances other than those prescribed or required for medical reasons: No Substance Use Type: Marijuana Advance Directives: Yes Advance Directives on File: Yes Advance Directives Date on File: 02/19/23 Do you have a plan to hurt others: No Plan Current occupational status: disabled Cognitive needs: No Hearing needs: No Vision needs: No Physical Exam ED Vital Signs: Vital Signs - 24 hr 03/11/24 17:26 03/11/24 18:08 03/11/24 18:20 Temperature 98.0 F 0 F L 0 F L Pulse Rate 70 0 L 0 L Respiratory Rate 16 0 L 0 L Blood Pressure 106/61 0/0 L 0/0 L Pulse Oximetry 97 0 L 0 L Oxygen Delivery Method Room Air BMI result Body Mass Index 30.2 Well-appearing in no acute distress Lungs clear to auscultation bilaterally Normal S1-S2 regular rate and rhythm Abdomen is soft nontender nondistended Multiple bed sores to bilateral buttocks with the worst appearing as a stage II; stage II circular right butt ulcer; no surrounding erythema or fluctuance appreciated Medical Decision Making Medical Decision Making MDM Narrative: This is a 38-year-old male presenting for right but pain. Patient appears to have stage I and 2 decubitus ulcers with no concern for abscess or deep tissue infection I gave patient home care instructions and recommended that he follow up with his PCP. I also provided him with return precautions Differential Diagnosis Differential Diagnoses: The differential diagnosis associated with the presentation includes Decubitus ulcer Discharge Plan Discharge Clinical Impression: Bed sore Qualifiers: Pressure injury location: buttock Pressure injury stage: stage 2 Laterality: right Qualified Code(s): L89.312 - Pressure ulcer of right buttock, stage 2 Patient Disposition: Home, Self-Care Additional Instructions: Please follow up with the primary care provider in the next 24-48 hours You were found to have a bedsore. It is important that you try to stand up as much as possible and do frequent bed shifting to prevent worsening of your bed sores If you develop any new or worsening symptoms please return to the emergency department Prescriptions: No Action tizanidine 4 mg tablet 2 mg PO TID PRN (Reason: Muscle Spasm) omeprazole 40 mg capsule,delayed release(DR/EC) 40 mg PO DAILY@0630 clindamycin phosphate 1 % gel 1 appl topical BID PRN (Reason: flared lesion prophylaxis) ferrous sulfate 325 mg (65 mg iron) tablet 325 mg PO DAILY duloxetine 30 mg capsule,delayed release(DR/EC) 30 mg PO DAILY Eliquis 5 mg tablet 5 mg PO BID Ilaris (PF) 150 mg/mL solution 150 mg subcut Q4W baclofen 20 mg tablet 20 mg PO QID gabapentin 300 mg capsule 300 mg PO TID folic acid 1 mg tablet 1 mg PO DAILY chlorhexidine gluconate 4 % Liquid 1 appl TOPICAL DAILY Rx Instructions: apply to areas of hidradenitis suppurativa acetaminophen 500 mg Tablet 500 mg PO Q4H PRN (Reason: Pain) doxycycline hyclate 100 mg tablet 100 mg PO BID Qty: 28 0RF oxycodone 30 mg tablet 30 mg PO Q6H PRN (Reason: pain) Qty: 28 0RF Rx Instructions: Partial Fill upon patient request. ascorbic acid (vitamin C) [Vitamin C] 500 mg tablet 500 mg PO DAILY Interventions: ED Discharge Assessment Last Done: 03/11/24 18:20 Discharge Date/Time: 03/11/24 18:20 Print Language: Ukrainian
[2024-03-11 18:08] VITALS: BP 0/0; PULSE 0; RESP 0; TEMP -17.7; TEMP 0; O2SAT 0
[2024-03-11 18:20] VITALS: BP 0/0; PULSE 0; RESP 0; TEMP -17.7; TEMP 0; O2SAT 0
== END 2024-03-11 18:20 | disposition home or self-care (01) ==
PROVIDERS: Emergency Provider Student in an Organized Health Care Education/Training Program
DX: L89.312 Pressure ulcer of right buttock, stage 2 (principal); I10 Essential (primary) hypertension; Z86.73 Personal history of transient ischemic attack (TIA), and cerebral infarction without residual deficits; Z79.01 Long term (current) use of anticoagulants; Z79.899 Other long term (current) drug therapy
CPT/HCPCS: 99283; 99284

== ENCOUNTER 2024-03-17 18:26 | Inpatient (IN) | payer OTHER, SELFPAY ==
--- NOTE | ~2024-03-17 | CT_ITS ---
EXAMINATION: CT ABDOMEN AND PELVIS WITHOUT CONTRAST CLINICAL INFORMATION: Gluteal pain, evaluate for abscess COMPARISON: 01/21/2024 TECHNIQUE: Multidetector volumetric imaging was performed from the superior aspect of the liver through the pubic symphysis. Sagittal and coronal reformatted images were obtained on the technologist's workstation. This CT examination was performed using dose optimization techniques as appropriate, variously including the following: *Automated exposure control *Adjustment of mA and/or kV according to patient size (this includes techniques or standardized protocols for targeted exams where dose is matched to indication/reason for exam; i.e. extremities or head) *Use of iterative reconstruction technique DLP: 1192 mGy-cm FINDINGS: LUNG BASES: Unremarkable. ABDOMINAL AND PELVIC WALL: There is soft tissue skin thickening along the right gluteal region extending to the superior aspect of the thigh. No definite underlying fluid collection. LIVER AND BILIARY TREE: Unremarkable. GALLBLADDER: Unremarkable. PANCREAS: Unremarkable. SPLEEN: Unremarkable. ADRENAL GLANDS: Unremarkable. KIDNEYS AND URETERS: Benign-appearing right renal cysts. No hydronephrosis or nephrolithiasis. GASTROINTESTINAL TRACT: Unremarkable. Appendix is within normal limits. VASCULAR: Unremarkable LYMPH NODES/PERITONEUM: Bilateral enlarged inguinal adenopathy and enlarged right iliac lymph nodes. A right external iliac lymph node measures 2.0 cm (3:87). Enlarged right inguinal lymph node measures 2.0 cm in short axis (3:96). FREE FLUID: None. BLADDER: Unremarkable. PELVIC VISCERA: Unremarkable. OSSEOUS STRUCTURES: Degenerative changes of the left hip with intramedullary femoral head nail visualized. CT/CT abdomen pelvis wo IV con IMPRESSION: * Soft tissue skin thickening along the right gluteal region extending to the superior aspect of the thigh. No definite underlying fluid collection, , although lack of IV contrast markedly limits evaluation. * * Bilateral enlarged inguinal adenopathy and enlarged right iliac lymph nodes. Electronically signed by: Toña Lacy MD 03/17/2024 09:27 PM [facility]
[2024-03-17 18:39] VITALS: BP 106/60; PULSE 74; RESP 20; TEMP 35.9; O2SAT 98; BMI 27.5
--- NOTE | 2024-03-17 20:25 | ED.GENADULT ---
HPI - General Adult General Chief complaint: General Medical Stated complaint: pressure sores on buttock Time Seen by Provider: 03/17/24 18:37 History of Present Illness HPI narrative: Narrative: 38 year-old male patient with previous history of CVA, currently on Eliquis presenting with a chronic draining wound of the buttock. He has undergone numerous procedures in the buttock for incision and drainage. He was previously treated with Humira but this was stopped after his CVA. Patient complaining of increasing pain to his gluteal area. Has been on pain medication chronically. Patient complaining of the same today. Wanting additional pain medicine after running out of pain meds on an outpatient basis. He denies any fever. Complaining pain in his back is much worse. History of hidradenitis. History of CVA that left him with right-sided weakness Related Data Home Medications ?Medication ?Instructions ?Recorded ?Confirmed acetaminophen 500 mg tablet 500 mg PO Q4H PRN Pain 02/17/23 02/17/23 apixaban 5 mg tablet (Eliquis) 5 mg PO BID 02/17/23 02/17/23 baclofen 20 mg tablet 20 mg PO QID 02/17/23 02/17/23 canakinumab (PF) 150 mg/mL 150 mg subcut Q4W 02/17/23 02/17/23 subcutaneous solution (Ilaris (PF)) chlorhexidine gluconate 4 % 1 appl topical DAILY 02/17/23 02/17/23 topical liquid clindamycin phosphate 1 % topical 1 appl topical BID PRN flared 02/17/23 02/17/23 gel lesion prophylaxis duloxetine 30 mg capsule,delayed 30 mg PO DAILY 02/17/23 02/17/23 release ferrous sulfate 325 mg (65 mg 325 mg PO DAILY 02/17/23 02/17/23 iron) tablet folic acid 1 mg tablet 1 mg PO DAILY 02/17/23 02/17/23 gabapentin 300 mg capsule 300 mg PO TID 02/17/23 02/17/23 omeprazole 40 mg capsule,delayed 40 mg PO DAILY@0630 02/17/23 02/17/23 release tizanidine 4 mg tablet 2 mg PO TID PRN Muscle Spasm 02/17/23 02/17/23 ascorbic acid (vitamin C) 500 mg 500 mg PO DAILY 03/11/24 03/11/24 tablet (Vitamin C) Previous Rx's ?Medication ?Instructions ?Recorded doxycycline hyclate 100 mg tablet 100 mg PO BID #28 tabs 03/10/24 oxycodone 30 mg tablet 30 mg PO Q6H PRN pain #28 tabs 03/10/24 Allergies Allergy/AdvReac Type Severity Reaction Status Date / Time No Known Allergies Allergy Verified 03/17/24 18:42 Review of Systems Review of Systems: Positive pain to the gluteal area Yes all other systems are reviewed and are negative [facility] Past Medical History Medical History (Updated 03/18/24 @ 01:14 by Jenny Kebede MD) Hidradenitis Imbalance Neuropathy Anxiety and depression GERD (gastroesophageal reflux disease) Hypertension Abscess and cellulitis of gluteal region CVA (cerebral vascular accident) Opiate abuse, continuous Surgical History (Updated 03/11/24 @ 11:27 by Deandre King MA) No pertinent past surgical history Family History Family History (Updated 03/11/24 @ 11:30 by Deandre King MA) Mother Mental health disorder Asthma Thyroid disease Cervical cancer Maternal Grandmother Mental health disorder Asthma Diabetes Cardiovascular disease Thyroid disease Father Substance abuse Hypertension High cholesterol Cardiovascular disease Clotting disorder Maternal Grandfather Diabetes Cardiovascular disease Paternal Grandfather Clotting disorder Social History Social History (Updated 03/11/24 @ 10:32 by Deandre King MA) Household Members: None Housing: Apartment Are you a primary rn wound care to a significant other at home: No Do you presently have visiting nurse or other home services: Yes Alcohol intake: never Patient Tobacco Use Status: Current everyday Tobacco user Cigarettes Per Day: 4 Smoked in Last 30 Days: Yes e-Cigarette/Vaping Use: Never Used Second Hand Smoke Exposure: No Use of substances other than those prescribed or required for medical reasons: Yes Substance Use Type: Marijuana and Prescription Drugs Advance Directives: Yes Advance Directives on File: Yes Advance Directives Date on File: 02/19/23 Current occupational status: disabled Cognitive needs: No Hearing needs: No Vision needs: No Physical Exam ED Vital Signs: Vital Signs - 24 hr 03/17/24 18:39 03/17/24 22:40 03/18/24 00:03 Temperature 96.6 F L 98.1 F Pulse Rate 74 60 54 Respiratory Rate 20 16 16 Blood Pressure 106/60 129/69 108/56 L Pulse Oximetry 98 98 98 Oxygen Delivery Method Room Air Room Air Room Air 03/18/24 00:09 Temperature 98.1 F Pulse Rate 54 Respiratory Rate 16 Blood Pressure 108/56 L Pulse Oximetry Oxygen Delivery Method BMI result Body Mass Index 27.5 Appearance: Alert. Oriented X3. No acute distress. Eyes: Pupils equal, round and reactive to light. ENT: Pharynx normal. Neck: Normal inspection. Neck supple. No lymph nodes noted. No crepitus CVS: Normal heart rate and rhythm. Pulses normal. Normal S1 and S2 Respiratory: No respiratory distress. Breath sounds normal. No Wheezing. No rales Abdomen: Soft and nontender. No rigidity. No distention. good BS x4 Skin: Extensive induration over bilateral gluteal area pain to touch. Draining pus at multiple points. No gross fluctuance was appreciated. Extremities: No lower extremity edema. Neurovascular intact to all extremities. No Lacerations. No Rash Neuro: Oriented X 3. Complete right-sided paralysis. Positive slurred speech. Medications Administered Discontinued Medications Generic Name Dose Route Start Last Admin Trade Name Arunq PRN Reason Stop Dose Admin Ceftriaxone Sodium 1 gm 03/17/24 20:23 03/17/24 22:25 Ceftriaxone Sodium 1 Gm Vial IVPUSH 03/17/24 20:24 1 gm ONCE ONE Administration Hydromorphone HCl 0.5 mg 03/17/24 20:19 03/17/24 22:24 Hydromorphone Hcl 0.5 Mg/0.5 Ml Syringe IVPUSH 03/17/24 20:20 0.5 mg ONCE ONE Administration Protocol Hydromorphone HCl 0.5 mg 03/17/24 22:30 03/17/24 22:46 Hydromorphone Hcl 0.5 Mg/0.5 Ml Syringe IVPUSH 03/17/24 22:31 0.5 mg ONCE ONE Administration Protocol Sodium Chloride 1,000 mls @ 999 mls/hr 03/17/24 20:30 03/17/24 23:35 Ns IV 03/17/24 21:30 Infused .Q1H1M [facility] In[facility] Vancomycin HCl 2,000 mg in 500 mls @ 250 mls/hr 03/17/24 20:30 03/17/24 22:32 Vancomycin/Ns IV 03/17/24 22:29 250 mls/hr ONCE ONE Administration Oxycodone HCl 30 mg 03/18/24 00:07 03/18/24 00:44 Oxycodone Hcl Immed Release 15 Mg Tablet PO 03/18/24 00:08 30 mg ONCE ONE Administration Medical Decision Making Medical Decision Making [facility] Narrative: Patient has no IV access available. There is no peripheral line in both forearms. Nursing attempted ultrasound-guided IV line but to no avail. I found an external jugular vein. Placed an 18 gauge IV line. Patient was given IV pain medication labs were drawn. Has a significant indurated gluteal area. Patient's lactate was normal. White count is normal. Has a baseline BUN on Eliquis making blood clot less likely. Given a dose of vancomycin for empiric treatment Rocephin. Patient is CT scan of the pelvis was done. It showed marked induration but no obvious abscess. It was limited by no IV contrast. Patient has a line but is an external jugular. Told by Radiology that the we can not get an IV contrast CT. Will admit patient for close monitoring as pain is uncontrolled extensive cellulitis to the gluteal area Differential Diagnosis Differential Diagnoses: The differential diagnosis associated with the presentation includes Cellulitis Admission/Observation Consideration of admission/observation: Escalation of care including admission/observation considered Consult Healthcare Provider Management of the patient was discussed with: Hospitalist Lab Data [facility] Lab Attestation statement: I reviewed the patient's lab results. 03/17/24 22:16 03/17/24 22:16 Labs: Lab Results 03/17/24 03/17/24 03/18/24 Range/Units 22:16 22:25 00:08 WBC 8.2 (4.8-10.8) X10*3/uL RBC 3.65 L (4.60-5.80) X10*6/uL Hgb 10.0 L (14.0-18.0) g/dl Hct 31.1 L (42.0-52.0) % MCV 85.2 (80.0-98.0) fL MCH 27.4 (27.0-33.0) pg MCHC 32.2 (31.0-36.0) g/dl RDW 14.1 (11.0-16.0) % Plt Count 624 H (160-400) X10*3/uL MPV 8.3 L (9.4-12.4) fL Immature Gran % (Auto) 0.2 (0.0-0.4) % Neut % (Auto) 68.1 (45-73) % Lymph % (Auto) 23.3 (20-40) % Cassia % (Auto) 6.4 (2-11) % Eos % (Auto) 1.6 (0-4) % Baso % (Auto) 0.4 (0-2) % Lymph # (Auto) 1.9 (1.2-4.9) X10*3/uL Cassia # (Auto) 0.5 (0.1-1.2) X10*3/uL Eos # (Auto) 0.1 (0.0-0.4) X10*3/uL Baso # (Auto) 0.0 (0.0-0.2) X10*3/uL Abs Immat Gran (auto) 0.02 (0.00-0.03) X10*3/uL Absolute Neuts (auto) 5.6 (2.0-8.3) x10*3/uL Absolute Nucleated RBC 0.000 (0.0-0.012) X10*3/uL Nucleated RBC % (auto) 0.0 (0.0-0.2) /100WBC VBG pH Cancelled VBG pCO2 Cancelled VBG pO2 Cancelled VBG HCO3 Cancelled VBG O2 Saturation Cancelled VBG Base Excess Cancelled Sodium 136 (135-145) mmol/L Potassium 4.2 (3.3-5.1) mmol/L Chloride 105 (96-108) mmol/L Carbon Dioxide 22 (22-29) mmol/L Anion Gap 13 (12-20) BUN 17 H (9-16) mg/dL Creatinine 0.74 (0.5-1.4) mg/dL Estim Creat Clear Calc 163.3 Estimated GFR > 60 Random Glucose 94 (60-115) mg/dL Lactic Acid 1.1 (0.5-2.0) mmol/L Calcium 8.7 (8.4-10.2) mg/dL Total Bilirubin 0.1 (0.0-1.0) mg/dL Direct Bilirubin < 0.2 (0.0-0.5) mg/dL AST 17 (5-37) U/L ALT 7 (0-40) U/L Alkaline Phosphatase 125 H (39-117) U/L Total Protein 7.6 (6.5-8.0) g/dL Albumin 3.2 L (3.5-5.0) g/dL Urine Color Yellow Urine Appearance Clear Urine pH 7.5 (5.0-9.0) Ur Specific [place] 1.025 (1.005-1.025) Urine Protein Negative (Neg-Trace) mg/dL Urine Glucose (UA) Negative (Negative) mg/dL Urine Ketones Negative (Negative) mg/dL Urine Blood Negative (Negative) Urine Nitrite Negative (Negative) Ur Leukocyte Esterase Negative (Negative) Urine RBC 0-2 (0-2) /HPF Urine WBC 0-5 (0-5) /HPF Ur Squamous Epith Cells 0-2 (0-2) /HPF Urine Bacteria None Seen (None Seen) Hyaline Casts 0-2 (0-2) /LPF Radiology Impression Discussion of test interpretation with radiology: I have reviewed the radiologist's reading. External Record Review External record reviewed: Inpatient record Chronic Conditions Previous history of stroke Discharge Plan Discharge Clinical Impression: Cellulitis Patient Disposition: Admitted As Inpatient Prescriptions: No Action tizanidine 4 mg tablet 2 mg PO TID PRN (Reason: Muscle Spasm) omeprazole 40 mg capsule,delayed release(DR/EC) 40 mg PO DAILY@0630 clindamycin phosphate 1 % gel 1 appl topical BID PRN (Reason: flared lesion prophylaxis) ferrous sulfate 325 mg (65 mg iron) tablet 325 mg PO DAILY duloxetine 30 mg capsule,delayed release(DR/EC) 30 mg PO DAILY Eliquis 5 mg tablet 5 mg PO BID Ilaris (PF) 150 mg/mL solution 150 mg subcut Q4W baclofen 20 mg tablet 20 mg PO QID gabapentin 300 mg capsule 300 mg PO TID folic acid 1 mg tablet 1 mg PO DAILY chlorhexidine gluconate 4 % Liquid 1 appl TOPICAL DAILY Rx Instructions: apply to areas of hidradenitis suppurativa acetaminophen 500 mg Tablet 500 mg PO Q4H PRN (Reason: Pain) doxycycline hyclate 100 mg tablet 100 mg PO BID Qty: 28 0RF oxycodone 30 mg tablet 30 mg PO Q6H PRN (Reason: pain) Qty: 28 0RF Rx Instructions: Partial Fill upon patient request. ascorbic acid (vitamin C) [Vitamin C] 500 mg tablet 500 mg PO DAILY Print Language: Sinhala
--- NOTE | 2024-03-17 21:47 | PC.NURSE ---
Delay of blood work med administration pt is a difficult stick. requesting assistance from Ultrasound guided IV trained RNAustin
[2024-03-17 22:24] LABS: MANUAL DIFF FLAG NO
[2024-03-17] MEDS: HYDROmorphone HCl 0.5 MG/0.5 ML SYRINGE IVPUSH ×2 (22:24→22:46)
[2024-03-17 22:25] LABS: Basophils Percent Auto 0.4 % (0-2); Eosinophils Absolute Auto 0.1 X10*3/uL (0.0-0.4); Eosinophils Percent Auto 1.6 % (0-4); Hematocrit 31.1 % (42.0-52.0); Imm Gran Abs Auto 0.02 X10*3/uL (0.00-0.03); Imm Gran Pct Auto 0.2 % (0.0-0.4); Lymphocytes Absolute Auto 1.9 X10*3/uL (1.2-4.9); Lymphocytes Percent Auto 23.3 % (20-40); Mean Corpuscular HGB Conc 32.2 g/dl (31.0-36.0); Mean Corpuscular Hemoglobin 27.4 pg (27.0-33.0); Mean Corpuscular Volume 85.2 fL (80.0-98.0); Mean Platelet Volume 8.3 fL (9.4-12.4); Monocytes Absolute Auto 0.5 X10*3/uL (0.1-1.2); Monocytes Percent Auto 6.4 % (2-11); Neutrophils Absolute Auto 5.6 x10*3/uL (2.0-8.3); Neutrophils Percent Auto 68.1 % (45-73); Platelet Count 624 X10*3/uL (160-400); Red Blood Count 3.65 X10*6/uL (4.60-5.80); Red Cell Distribution Width 14.1 % (11.0-16.0); White Blood Count 8.2 X10*3/uL (4.8-10.8)
[2024-03-17] MEDS: cefTRIAXone sodium 1 GM VIAL IVPUSH (22:25)
[2024-03-17] MEDS: vancomycin/NS 2,000 MG/500 ML PLAST..BAG 250 MG IV (22:32)
[2024-03-17] MEDS: 0.9 % Sodium Chloride 1,000 ML 999 ML IV (22:33)
[2024-03-17 22:40] VITALS: BP 129/69; PULSE 60; RESP 16; O2SAT 98
[2024-03-17 22:41] LABS: Lactic Acid 1.1 mmol/L (0.5-2.0)
[2024-03-17 22:48] LABS: Alanine Aminotransferase 7 U/L (0-40); Albumin Level 3.2 g/dL (3.5-5.0); Alkaline Phosphatase 125 U/L (39-117); Anion Gap 13 (12-20); Aspartate Amino Transferase 17 U/L (5-37); Bilirubin Direct < 0.2 mg/dL (0.0-0.5); Bilirubin Total 0.1 mg/dL (0.0-1.0); Blood Urea Nitrogen 17 mg/dL (9-16); Calcium 8.7 mg/dL (8.4-10.2); Carbon Dioxide 22 mmol/L (22-29); Chloride 105 mmol/L (96-108); Creatinine Clr Calc Pharmacy 163.3; Estimated Glomerular Filt Rate > 60; Glucose Random 94 mg/dL (60-115); Potassium 4.2 mmol/L (3.3-5.1); Sodium 136 mmol/L (135-145); Total Protein 7.6 g/dL (6.5-8.0)
--- NOTE | 2024-03-17 23:14 | PC.NURSE ---
EJ placed by Dr. Kebede. PT medicated as per JUL. PT aware we are in need of a urine sample. Report given to DIANNA Goddard
[2024-03-18] VITALS (8 sets, daily range): BP systolic 108–127; BP diastolic 56–67; PULSE 53–59; RESP 14–18; TEMP 36.3–37.1; O2SAT 96–98
--- NOTE | 2024-03-18 00:12 | MHC.EDTECH ---
This pct assumed care of Patient at 2300 ,vitals taken ,urine sample collected and sent to lab ,Call mariee within Pt reach .
[2024-03-18 00:17] LABS: Appearance Urine Clear; Color Urine Yellow; Glucose Urine UA Negative (Negative); Leukocyte Esterase Urine Negative (Negative); Nitrite Urine Negative (Negative); PH 7.5 (5.0-9.0); Specific Gravity - Urine 1.025 (1.005-1.025); Urine Blood Negative (Negative); Urine Ketones Negative (Negative); Urine Protein Negative (Neg-Trace)
[2024-03-18 00:21] LABS: Bacteria Urine None Seen (None Seen); Hyaline Casts Urine 0-2 /LPF (0-2); RBC Urine 0-2 /HPF (0-2); Squamous Epithelial Cell Urine 0-2 /HPF (0-2); WBC Urine 0-5 /HPF (0-5)
[2024-03-18] MEDS: oxyCODONE HCl Immed Release 15 MG TABLET 30 MG PO ×3 (00:44→18:25)
--- NOTE | 2024-03-18 02:22 | MHC.EDTECH ---
0200 rounding done ,vitals taken ,Patient bed Pads and brief change ,Alanna care given ,RN aware that Patient had large dressing on his bottom ,Patient states he has several open areas ,rn aware that Patient wear briefs for comfort,Patient said he is not able to be on his side due to Cronic Pain ,Patient belonings list done ,warm blanket given ,all safety measure in Place ,Call mariee within Pt reach ,Plan of care continue .
--- NOTE | 2024-03-18 06:05 | PM.IMHP ---
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 He presents with increased pain at the area of buttock wound and claim to run out of pain medication at home. He's been admitted out of concern for cellulitis and intractable pain. He is seen frequently for this most recently at [facility]. He denies any fever, chills, nausea, vomiting, diarrhea, shortness of breath, chest pain, palpitations or dizziness. Review of Systems Review of Systems: Gen: no fever Resp: no sob, no cough CV: no chest, no JOHNSON, no leg edema GI: No n/v, no abd pain Neuro: No confusion [facility] Medical History Hidradenitis Imbalance Neuropathy Anxiety and depression GERD (gastroesophageal reflux disease) Hypertension Abscess and cellulitis of gluteal region CVA (cerebral vascular accident) Opiate abuse, continuous Family History Mother Mental health disorder Asthma Thyroid disease Cervical cancer Maternal Grandmother Mental health disorder Asthma Diabetes Cardiovascular disease Thyroid disease Father Substance abuse Hypertension High cholesterol Cardiovascular disease Clotting disorder Maternal Grandfather Diabetes Cardiovascular disease Paternal Grandfather Clotting disorder Surgical History No pertinent past surgical history Social History Household Members: Family Housing: Apartment Are you a primary patient care to a significant other at home: No Do you presently have visiting nurse or other home services: Yes Alcohol intake: never Patient Tobacco Use Status: Never used Tobacco Cigarettes Per Day: 4 Smoked in Last 30 Days: Yes e-Cigarette/Vaping Use: Never Used Second Hand Smoke Exposure: No Use of substances other than those prescribed or required for medical reasons: Yes Substance Use Type: Marijuana Substance Use Frequency: Daily Last Used Substance: Just Prior to Admission Currently Displaying Signs/Symptoms of Drug Intoxication Withdrawal: No Any prior treatment program specific to substance use: No Have you been hit, kicked, punched, or otherwise hurt by someone within the past year? If so, by whom?: No Do you feel safe in your current relationship?: Yes Is there a partner from a previous relationship who is making you feel unsafe now?: No Are you made to feel afraid or neglected: No Advance Directives: Yes Advance Directives on File: Yes Advance Directives Date on File: 02/19/23 Do you have a plan to hurt others: No Plan Recently lost weight without trying: No Nutrition Risks: No Nutritional Risk Current occupational status: disabled Cognitive needs: No Hearing needs: No Vision needs: No Meds Allergies Allergy/AdvReac Type Severity Reaction Status Date / Time No Known Allergies Allergy Verified 03/17/24 18:42 Home Medications ?Medication ?Instructions ?Recorded ?Confirmed ?Last Taken ?Type acetaminophen 500 mg tablet 500 mg PO Q4H PRN Pain 02/17/23 03/18/24 Unknown History apixaban 5 mg tablet (Eliquis) 5 mg PO BID 02/17/23 03/18/24 03/17/24 History baclofen 20 mg tablet 20 mg PO QID 02/17/23 03/18/24 03/17/24 History canakinumab (PF) 150 mg/mL 150 mg subcut Q28D 02/17/23 03/18/24 02/27/24 History subcutaneous solution (Ilaris (PF)) clindamycin phosphate 1 % topical 1 appl topical BID PRN flared 02/17/23 03/18/24 Unknown History gel lesion prophylaxis duloxetine 30 mg capsule,delayed 30 mg PO DAILY 02/17/23 03/18/24 03/17/24 History release ferrous sulfate 325 mg (65 mg 325 mg PO DAILY 02/17/23 03/18/24 03/17/24 History iron) tablet folic acid 1 mg tablet 1 mg PO DAILY 02/17/23 03/18/24 03/17/24 History gabapentin 300 mg capsule 600 mg PO TID 02/17/23 03/18/24 03/17/24 History ascorbic acid (vitamin C) 500 mg 500 mg PO DAILY 03/11/24 03/18/24 03/17/24 History tablet (Vitamin C) cephalexin 500 mg capsule 500 mg PO QID 1103/18/24 03/17/24 History cholecalciferol (vitamin D3) 25 25 mcg PO DAILY 03/18/24 03/18/24 03/17/24 History mcg (1,000 unit) tablet (Vitamin D3) docusate sodium 100 mg capsule 100 mg PO BID 03/18/24 03/18/24 03/17/24 History hydroxyurea 500 mg capsule 500 mg PO DAILY 03/18/24 03/18/24 03/17/24 History oxycodone 30 mg tablet 30 mg PO Q6H PRN pain 03/18/24 03/18/24 03/17/24 History pantoprazole 40 mg tablet,delayed 40 mg PO DAILY@0630 03/18/24 03/18/24 03/17/24 History release tizanidine 2 mg tablet 4 mg PO Q8H PRN muscle spasm 03/18/24 03/18/24 Unknown History triamcinolone acetonide 0.1 % 1 appl topical BID 03/18/24 03/18/24 03/17/24 History topical cream Physical Exam Vital Signs and Narrative: Vital Signs: Last Vital Signs Temp 98.4 F 03/18/24 02:19 Pulse 57 03/18/24 02:19 Resp 16 03/18/24 04:09 BP 110/56 L 03/18/24 02:19 Pulse Ox 97 03/18/24 01:50 O2 Del Method Room Air 03/18/24 01:50 BMI result Body Mass Index 27.5 Const: Other: Constitutional: Alert, in no distress. Mental Status: Oriented to person, place and time. Head:?Normocephalic. Eyes: Pupils are equal, round and reactive to light. Extraocular muscles intact. Ear, Nose and Throat: Oropharynx clear, pallor without jaundice,?mucous membranes moist. Ears and nose without masses, lesions or deformities. Trachea midline. Neck: Supple, Full range of motion. Respiratory: Clear to auscultation. No wheezing, rales or rhonchi. Cardiovascular: S1 S2 regular. No murmurs, rubs or gallops. Gastrointestinal: Obese, abdomen soft, non-tender, non-distended. Normal bowel sounds. No pulsatile mass. No hepatosplenomegaly. Genitourinary: No costovertebral angle tenderness. Neurologic: Expressive aphasia. ?Right?sided hemiparesis?(old)?with weakness more prominent in the right upper extremity and the right lower extremity. Skin:?Right buttocks ulcer with multiple sites and serosanguineous drainage.? No fluctuance, induration or purulent discharge. Musculoskeletal: No cyanosis or clubbing. No gross deformities. Normal range of motion. Heme/Lymphatics/Immun: Palpation of neck reveals no swelling or tenderness of neck nodes. Palpation of groin reveals no swelling or tenderness of groin nodes. Psychiatric: Normal mood and affect Results Labs 03/17/24 22:16 03/19/24 08:51 Labs: Laboratory Results - last 24 hr 03/17/24 03/17/24 03/18/24 22:16 22:25 00:08 MCV 85.2 MCH 27.4 MCHC 32.2 RDW 14.1 Plt Count 624 H MPV 8.3 L Immature Gran % (Auto) 0.2 Neut % (Auto) 68.1 Lymph % (Auto) 23.3 Davis % (Auto) 6.4 Eos % (Auto) 1.6 Baso % (Auto) 0.4 Lymph # (Auto) 1.9 Davis # (Auto) 0.5 Eos # (Auto) 0.1 Baso # (Auto) 0.0 Abs Immat Gran (auto) 0.02 Absolute Neuts (auto) 5.6 Absolute Nucleated RBC 0.000 Nucleated RBC % (auto) 0.0 VBG pH Cancelled VBG pCO2 Cancelled VBG pO2 Cancelled VBG HCO3 Cancelled VBG O2 Saturation Cancelled VBG Base Excess Cancelled Anion Gap 13 Estim Creat Clear Calc 163.3 Estimated GFR > 60 Random Glucose 94 Lactic Acid 1.1 Calcium 8.7 Total Bilirubin 0.1 Direct Bilirubin < 0.2 AST 17 ALT 7 Alkaline Phosphatase 125 H Total Protein 7.6 Albumin 3.2 L Urine Color Yellow Urine Appearance Clear Urine pH 7.5 Ur Specific [place] 1.025 Urine Protein Negative Urine Glucose (UA) Negative Urine Ketones Negative Urine Blood Negative Urine Nitrite Negative Ur Leukocyte Esterase Negative Urine RBC 0-2 Urine WBC 0-5 Ur Squamous Epith Cells 0-2 Urine Bacteria None Seen Hyaline Casts 0-2 Imaging Radiologist's Impressions: Impressions Abdomen/Pelvis CT 03/17/24 20:35 IMPRESSION: * Soft tissue skin thickening along the right gluteal region extending to the superior aspect of the thigh. No definite underlying fluid collection, , although lack of IV contrast markedly limits evaluation. * * Bilateral enlarged inguinal adenopathy and enlarged right iliac lymph nodes. Electronically signed by: Toña Lacy MD 03/17/2024 09:27 PM [facility] Assessment and Plan (1) Abscess and cellulitis of gluteal region: Status: Acute (2) Cellulitis: Status: Acute Plan 38-year-old man who comes into the emergency room complaining pain in right buttocks.?Patient with history of chronic?right buttocks ulcer?secondary to?hidradenitis suppurativa.??f acute infection/cellulitis Ulcer of buttock ?Wound care consult and surgery consult to see if he needs debridment ? Chronic pain syndrome ?He will be placed under observation?on regular floor. -Continue fentanyl?25 mcg?every 72 hours.?Oxycodone 30 mg p.o. every 6 hours. -Continue gabapentin?800 mg p.o. 3 times a day and Cymbalta?30 mg p.o. daily.?I will reconsult?addiction medicine. ? Chronic ischemic left ICA stroke -?Continue home Eliquis?5 mg p.o. twice a day ? Depression -Continue duloxetine 30 mg BID ? Hypertension -?Continue home amlodipine?5 mg p.o. daily. ? Chronic GERD -PPI ? Iron deficiency anemia-Stable.?Monitor H&H. -?Continue ferrous sulfate 325 mg BID ? Thrombocytosis -??platelets at baseline, continue home hydroxyurea ? VTE Prophylaxis: [employer] Quality Stroke Does the patient have a stroke diagnosis?: No VTE Prior VTE?: No VTE Risk Level:: Medical - moderate - high VTE Device Contraindication: Treatment Not Indicated VTE Drug Contraindication: N/A - Med Ordered
--- NOTE | 2024-03-18 06:33 | MHC.EDTECH ---
450 ml urine empty from urinal .
[2024-03-18] MEDS: Morphine Sulfate 4 MG/ML CARTRIDGE 2 MG IVPUSH (08:21)
[2024-03-18] MEDS: 0.9 % Sodium Chloride Flush 3 ML SYRINGE IVFLUSH ×3 (08:22→23:37)
--- NOTE | 2024-03-18 09:24 | PHA.MEDREC ---
Addendum entered by Sheila Cam [facility] 03/18/24 09:54: Reviewed by [facility] Addendum entered by Fady Harmon 03/18/24 09:49: Oxycodone 30 mg tabs the patient ran out of yesterday at 11am per patients mom and per the HCP the patients has not been able to see his PCP since getting Dc'd from the hospital recently and since the patient ran out of the medication he is here today for the pain management. Original Note: Pharmacy Consult ? Medication Reconciliation Pharmacy has completed the medication reconciliation. Went to speak to patient and patient has speech impediment that causes difficulty for him to talk. He confirmed his mom was home and should be able to confirm medications with her. I called and spoke patients mother who had patient health care proxy over who was able to confirm his medications. Both the patient mom and HCP both state he is not taking the Amlodipine 5mg tab once daily and states he has not taken them in about 6 months due to loosing his PCP and ran out of refills. I stated that we have it filled 02/12 in out claims at [facility] on [facility] but they have no recollection of that and when I called [facility] they confirmed it was picked up 02/21 for 90 days. They confirmed his Canakinumab 20mg injection Q28D and states his next shot is due 03/26. They confirmed Duloxetine 30mg tabs once daily and states that is filled at [facility] on [facility] and in claims that has not been filled since 12/09 for 30 days and [facility] confirmed he has not had that filled since November. They also confirmed he is still taking the Hydroxyurea 500mg tabs and states it is being filled at [facility], I called [facility] and they confirmed he has not gotten that filled since 12/10 for 30 days. The mom confirmed her son took his medications yesterday morning.
--- NOTE | 2024-03-18 10:26 | P.CONGS_ITS ---
History of Present Illness Consult details Consult date: 03/18/24 Narrative: 38-year-old male referred for right buttock hidradenitis suppurativa. He has a known history of hidradenitis suppurativa including on the groin other areas He had been on chronic pain medications and had ran out of medications at home. Apparently, his primary care physician had been trying to wean him off narcotics. He usually goes to [facility] for health issues He has a history of CVA and has some right-sided hemiparesis. Review of Systems 2 Constitutional: Constitutional: Denies chills and Denies fever(s) Cardiovascular: Cardiovascular: Denies chest pain Respiratory: Respiratory: Denies cough Gastrointestinal: Gastrointestinal: Denies abdominal pain Genitourinary: Genitourinary: Denies dysuria PMFSH Past Medical History Medical History Hidradenitis Imbalance Neuropathy Anxiety and depression GERD (gastroesophageal reflux disease) Hypertension Abscess and cellulitis of gluteal region CVA (cerebral vascular accident) Opiate abuse, continuous Family History Family History Mother Mental health disorder Asthma Thyroid disease Cervical cancer Maternal Grandmother Mental health disorder Asthma Diabetes Cardiovascular disease Thyroid disease Father Substance abuse Hypertension High cholesterol Cardiovascular disease Clotting disorder Maternal Grandfather Diabetes Cardiovascular disease Paternal Grandfather Clotting disorder Surgical History Surgical History No pertinent past surgical history Social History Social History Household Members: Family Housing: Apartment Are you a primary career development associate to a significant other at home: No Do you presently have visiting nurse or other home services: Yes Alcohol intake: never Patient Tobacco Use Status: Never used Tobacco Cigarettes Per Day: 4 Smoked in Last 30 Days: Yes e-Cigarette/Vaping Use: Never Used Second Hand Smoke Exposure: No Use of substances other than those prescribed or required for medical reasons: Yes Substance Use Type: Marijuana Substance Use Frequency: Daily Last Used Substance: Just Prior to Admission Currently Displaying Signs/Symptoms of Drug Intoxication Withdrawal: No Any prior treatment program specific to substance use: No Have you been hit, kicked, punched, or otherwise hurt by someone within the past year? If so, by whom?: No Do you feel safe in your current relationship?: Yes Is there a partner from a previous relationship who is making you feel unsafe now?: No Are you made to feel afraid or neglected: No Advance Directives: Yes Advance Directives on File: Yes Advance Directives Date on File: 02/19/23 Do you have a plan to hurt others: No Plan Recently lost weight without trying: No Nutrition Risks: No Nutritional Risk service: No Current occupational status: disabled Cognitive needs: No Hearing needs: No Vision needs: No Meds Allergies Allergy/AdvReac Type Severity Reaction Status Date / Time No Known Allergies Allergy Verified 03/17/24 18:42 Active Medications: Current Medications Acetaminophen (Acetaminophen 325 Mg Tablet) 650 mg PO Q6H PRN PRN Reason: Pain, Mild (Pain Scale 1-3), fever or headache Apixaban (Apixaban 5 Mg Tablet) 5 mg PO BID [facility] Ascorbic Acid (Ascorbic Acid 500 Mg Tablet) 500 mg PO DAILY [facility] Baclofen (Baclofen 20 Mg Tablet) 20 mg PO QID [facility] Calcium Carbonate (Calcium Carbonate 750 Mg Tab.Chew) 750 mg PO Q4H PRN PRN Reason: Heartburn Cephalexin HCl (Cephalexin 500 Mg Capsule) 500 mg PO QID [facility] Docusate Sodium (Docusate Sodium 100 Mg Capsule) 100 mg PO BID [facility] Duloxetine HCl (Duloxetine Hcl 30 Mg Capsule.Dr) 30 mg PO DAILY [facility] Folic Acid (Folic Acid 1 Mg Tablet) 1 mg PO DAILY [facility] Gabapentin (Gabapentin 300 Mg Capsule) 600 mg PO TID [facility] Hydroxyurea (Hydroxyurea 500 Mg Capsule) 500 mg PO DAILY [facility] Magnesium Hydroxide (Milk Of Magnesia 30 Ml Oral.Susp) 30 ml PO DAILY PRN PRN Reason: Constipation Melatonin (Melatonin 3 Mg Tablet) 6 mg PO BEDTIME PRN PRN Reason: Insomnia Morphine Sulfate (Morphine Sulfate 4 Mg/Ml Cartridge) 2 mg IVPUSH Q4H PRN; Protocol PRN Reason: Pain, Severe (Pain Scale 7-10) Last Admin: 03/18/24 08:21 Dose: 2 mg Non-Formulary Medication (Doxycycline Hyclate) 100 mg PO BID [facility] Non-Formulary Medication (Acetaminophen) 500 mg PO Q4H PRN PRN Reason: Pain Non-Formulary Medication (Canakinumab (Pf) [Ilaris (Pf)]) 150 mg SUBCUT Q28D [facility] Non-Formulary Medication (Clindamycin Phosphate) 1 appl TOPICAL BID PRN PRN Reason: flared lesion prophylaxis Non-Formulary Medication (Ferrous Sulfate) 325 mg PO DAILY [facility] Non-Formulary Medication (Pantoprazole) 40 mg PO DAILY@0630 [facility] Ondansetron HCl (Ondansetron Hcl 4 Mg/2 Ml Vial) 4 mg IVPUSH Q8H PRN PRN Reason: Nausea and Vomiting Oxycodone HCl (Oxycodone Hcl Immed Release 15 Mg Tablet) 30 mg PO Q6H PRN PRN Reason: Pain, Severe (Pain Scale 7-10) Polyethylene Glycol (Polyethylene Glycol 3350 17 Gm Powd.Pack) 17 gm PO DAILY PRN PRN Reason: Constipation Sodium Chloride (0.9 % Sodium Chloride Flush 3 Ml Syringe) 3 ml IVFLUSH QSHIFT [facility] Last Admin: 03/18/24 08:22 Dose: 3 ml Tizanidine HCl (Tizanidine Hcl 4 Mg Tablet) 4 mg PO Q8H PRN PRN Reason: muscle spasm Triamcinolone Acetonide (Triamcinolone Acet 0.1 % Cream 15 Gm Tube) 1 appl TOPICAL BID [facility]; Protocol Vitamin D (Cholecalciferol (Vitamin D3) 25 Mcg Tablet) 25 mcg PO DAILY [facility] Home Medications ?Medication ?Instructions ?Recorded ?Confirmed ?Last Taken ?Type acetaminophen 500 mg tablet 500 mg PO Q4H PRN Pain 02/17/23 03/18/24 Unknown History apixaban 5 mg tablet (Eliquis) 5 mg PO BID 02/17/23 03/18/24 03/17/24 History baclofen 20 mg tablet 20 mg PO QID 02/17/23 03/18/24 03/17/24 History canakinumab (PF) 150 mg/mL 150 mg subcut Q28D 02/17/23 03/18/24 02/27/24 History subcutaneous solution (Ilaris (PF)) clindamycin phosphate 1 % topical 1 appl topical BID PRN flared 02/17/23 03/18/24 Unknown History gel lesion prophylaxis duloxetine 30 mg capsule,delayed 30 mg PO DAILY 02/17/23 03/18/24 03/17/24 History release ferrous sulfate 325 mg (65 mg 325 mg PO DAILY 02/17/23 03/18/24 03/17/24 History iron) tablet folic acid 1 mg tablet 1 mg PO DAILY 02/17/23 03/18/24 03/17/24 History gabapentin 300 mg capsule 600 mg PO TID 02/17/23 03/18/24 03/17/24 History ascorbic acid (vitamin C) 500 mg 500 mg PO DAILY 03/11/24 03/18/24 03/17/24 History tablet (Vitamin C) cephalexin 500 mg capsule 500 mg PO QID 03/18/24 03/18/24 03/17/24 History cholecalciferol (vitamin D3) 25 25 mcg PO DAILY 03/18/24 03/18/24 03/17/24 History mcg (1,000 unit) tablet (Vitamin D3) docusate sodium 100 mg capsule 100 mg PO BID 03/18/24 03/18/24 03/17/24 History hydroxyurea 500 mg capsule 500 mg PO DAILY 03/18/24 03/18/24 03/17/24 History pantoprazole 40 mg tablet,delayed 40 mg PO DAILY@0630 03/18/24 03/18/24 03/17/24 History release tizanidine 2 mg tablet 4 mg PO Q8H PRN muscle spasm 03/18/24 03/18/24 Unknown History triamcinolone acetonide 0.1 % 1 appl topical BID 03/18/24 03/18/24 03/17/24 History topical cream Physical Exam 2 Vital Signs: Vital Signs: Last Vital Signs Temp 98.4 F 03/18/24 06:20 Pulse 53 03/18/24 06:20 Resp 16 03/18/24 06:20 BP 111/66 03/18/24 06:20 Pulse Ox 96 03/18/24 06:20 O2 Del Method Room Air 03/18/24 01:50 BMI result Body Mass Index 27.5 Const: Other: Obese looking General: comfortable and no acute distress Resp: Effort & Inspection: normal respiratory effort Cardio: Rate: regular rate GI: Palpation (GI): Soft to palpation Back/Spine/Pelvis: Other: Multiple sinuses with skin thickening on the entire right buttock with no fluctuance, no cellulitis, Results Labs 03/20/24 06:54 03/20/24 06:54 Labs: Abnormal lab results 03/17/24 Range/Units 22:16 RBC 3.65 L (4.60-5.80) X10*6/uL Hgb 10.0 L (14.0-18.0) g/dl Hct 31.1 L (42.0-52.0) % Plt Count 624 H (160-400) X10*3/uL MPV 8.3 L (9.4-12.4) fL BUN 17 H (9-16) mg/dL Alkaline Phosphatase 125 H (39-117) U/L Albumin 3.2 L (3.5-5.0) g/dL Short CBC 03/17/24 Range/Units 22:16 WBC 8.2 (4.8-10.8) X10*3/uL Hgb 10.0 L (14.0-18.0) g/dl Hct 31.1 L (42.0-52.0) % Plt Count 624 H (160-400) X10*3/uL BMP 03/17/24 22:16 Sodium 136 Potassium 4.2 Chloride 105 Carbon Dioxide 22 BUN 17 H Creatinine 0.74 Calcium 8.7 Liver Function 03/17/24 Range/Units 22:16 Total Bilirubin 0.1 (0.0-1.0) mg/dL Direct Bilirubin < 0.2 (0.0-0.5) mg/dL AST 17 (5-37) U/L ALT 7 (0-40) U/L Alkaline Phosphatase 125 H (39-117) U/L Albumin 3.2 L (3.5-5.0) g/dL Urine 03/18/24 Range/Units 00:08 Urine Color Yellow Urine Appearance Clear Urine pH 7.5 (5.0-9.0) Ur Specific [place] 1.025 (1.005-1.025) Urine Protein Negative (Neg-Trace) mg/dL Urine Glucose (UA) Negative (Negative) mg/dL All other labs normal. Assessment and Plan (1) Hidradenitis suppurativa: Status: Acute He has hidradenitis suppurativa of the buttocks. There does not appear to be any drainable abscess. There does not seem to be any area that needs to be debrided at this time. I would continue with good wound care at this time. Systemic treatment for his hidradenitis should be considered and he should be referred to a squeezer operator eventually because of this. I am also recommending consultation with the Cora Martinez for management of his chronic opioid use. No surgical intervention is planned at this time. Procedures Date of Service Date of Service: 03/20/24
[2024-03-18] MEDS: DULoxetine HCl 30 MG CAPSULE.DR PO (12:06)
[2024-03-18] MEDS: Doxycycline Monohydrate 100 MG CAPSULE PO ×2 (12:06→23:32)
[2024-03-18] MEDS: Gabapentin 300 MG CAPSULE 600 MG PO ×3 (12:06→20:20)
[2024-03-18] MEDS: Baclofen 20 MG TABLET PO ×3 (12:06→20:20)
[2024-03-18] MEDS: Cholecalciferol (Vitamin D3) 25 MCG TABLET PO (12:07)
[2024-03-18] MEDS: Ascorbic Acid 500 MG TABLET PO (12:07)
[2024-03-18] MEDS: Folic Acid 1 MG TABLET PO (12:07)
[2024-03-18] MEDS: Apixaban 5 MG TABLET PO ×2 (12:07→20:20)
[2024-03-18] MEDS: Docusate Sodium 100 MG CAPSULE PO (12:07)
[2024-03-18] MEDS: Hydroxyurea 500 MG CAPSULE PO (14:38)
[2024-03-18] MEDS: cephALEXin 500 MG CAPSULE PO ×3 (15:43→20:20)
--- NOTE | 2024-03-18 21:45 | HO.SKINPHOTO ---
Location: Right Buttock Category: Hidradenitis suppurativa
[2024-03-19] VITALS (7 sets, daily range): BP systolic 106–140; BP diastolic 56–69; PULSE 50–69; RESP 14–20; TEMP 36.3–37.1; O2SAT 97–100
[2024-03-19] MEDS: oxyCODONE HCl Immed Release 15 MG TABLET 30 MG PO ×4 (00:56→18:36)
[2024-03-19] MEDS: Omeprazole 20 MG CAPSULE.DR PO (06:34)
--- NOTE | 2024-03-19 07:45 | PHA.PROG ---
Admission Date/Time: March 18, 2024 06:27 Indication: Bacteremia Weight in k.79 kg Adjusted body weight in Kg: [place] body weight in Kg: Obesity Dosing Indication % IBW: BMI 27.5 Serum Creatinine - Last 168 Hours 03/17/24 22:16 Creatinine 0.74 Estimated CrCl and GFR - Last 168 Hours 03/17/24 22:16 Estim Creat Clear Calc 163.3 Estimated GFR > 60 Vancomycin Loading Dose: 2000 x1 Current Vancomycin Dosing Regimen: 1500 Q12H Vancomycin Monitoring using AUC goal of 400 - 600 range with trough as surrogate marker: 549 Date and Time for next Vancomycin Level to be drawn: 03/20/24 @0600 Pharmacist Comments on Vancomycin Plan: getting creatinine labs, load given on 03/17 so starting a bit higher/more aggressive since patient had over 24 hours to clear. Predicted trough 16.8. Vancomycin dosing will take advantage of [employer] as a clinical decision support tool that uses Bayesian modeling to calculate individual patient's pharmacokinetic parameters and forecast the patient's drug concentration time course with the target goal AUC 24 range of 400 - 600 mg/L/hr.
[2024-03-19] MEDS: cephALEXin 500 MG CAPSULE PO ×4 (08:59→20:04)
[2024-03-19] MEDS: Gabapentin 300 MG CAPSULE 600 MG PO ×3 (09:00→20:04)
[2024-03-19] MEDS: Cholecalciferol (Vitamin D3) 25 MCG TABLET PO (09:00)
[2024-03-19] MEDS: Apixaban 5 MG TABLET PO ×2 (09:01→20:04)
[2024-03-19] MEDS: Folic Acid 1 MG TABLET PO (09:01)
[2024-03-19] MEDS: Baclofen 20 MG TABLET PO ×4 (09:01→20:04)
[2024-03-19] MEDS: vancomycin HCL 1,500 MG in 0.9 % Sodium Chloride 500 ML 333.33 MG IV ×2 (09:01→20:07)
[2024-03-19] MEDS: DULoxetine HCl 30 MG CAPSULE.DR PO (09:01)
[2024-03-19] MEDS: Ascorbic Acid 500 MG TABLET PO (09:01)
[2024-03-19] MEDS: Ferrous Sulfate 324 MG TABLET.DR PO (09:01)
[2024-03-19] MEDS: Hydroxyurea 500 MG CAPSULE PO (09:01)
[2024-03-19 09:39] LABS: Creatinine Clr Calc Pharmacy 154.9; Estimated Glomerular Filt Rate > 60
--- NOTE | 2024-03-19 11:10 | P.PNIM_ITS ---
Subjective Subjective Date of Service: 03/19/24 Interval History: f/u on decub ulcer, bacteremia pain is better Physical Exam 2 Vital Signs: Vital Signs: Last Vital Signs Temp 97.5 F 03/19/24 07:52 Pulse 69 03/19/24 07:52 Resp 14 03/19/24 07:52 BP 133/69 03/19/24 07:52 Pulse Ox 97 03/19/24 07:52 O2 Del Method Room Air 03/19/24 07:52 BMI result Body Mass Index 27.5 see h and p Objective Data Active Medications Acetaminophen (Acetaminophen 325 Mg Tablet) 650 mg PO Q6H PRN PRN Reason: Pain, Mild (Pain Scale 1-3), fever or headache Apixaban (Apixaban 5 Mg Tablet) 5 mg PO BID [facility] Last Admin: 03/19/24 09:01 Dose: 5 mg Documented By: MERON Ascorbic Acid (Ascorbic Acid 500 Mg Tablet) 500 mg PO DAILY [facility] Last Admin: 03/19/24 09:01 Dose: 500 mg Documented By: MERON Baclofen (Baclofen 20 Mg Tablet) 20 mg PO QID [facility] Last Admin: 03/19/24 09:01 Dose: 20 mg Documented By: MERON Calcium Carbonate (Calcium Carbonate 750 Mg Tab.Chew) 750 mg PO Q4H PRN PRN Reason: Heartburn Cephalexin HCl (Cephalexin 500 Mg Capsule) 500 mg PO QID [facility] Last Admin: 03/19/24 08:59 Dose: 500 mg Documented By: MERON Docusate Sodium (Docusate Sodium 100 Mg Capsule) 100 mg PO BID [facility] Last Admin: 03/19/24 09:01 Dose: Not Given Documented By: MERON Non-Admin Reason: Patient Refused Doxycycline Monohydrate (Doxycycline Monohydrate 100 Mg Capsule) 100 mg PO Q12H [facility] Last Admin: 03/18/24 23:32 Dose: 100 mg Documented By: LUIS Duloxetine HCl (Duloxetine Hcl 30 Mg Capsule.) 30 mg PO DAILY [facility] Last Admin: 03/19/24 09:01 Dose: 30 mg Documented By: MERON Ferrous Sulfate (Ferrous Sulfate 324 Mg Tablet.) 324 mg PO DAILY [facility] Last Admin: 03/19/24 09:01 Dose: 324 mg Documented By: MERON Folic Acid (Folic Acid 1 Mg Tablet) 1 mg PO DAILY [facility] Last Admin: 03/19/24 09:01 Dose: 1 mg Documented By: MERON Gabapentin (Gabapentin 300 Mg Capsule) 600 mg PO TID [facility] Last Admin: 03/19/24 09:00 Dose: 600 mg Documented By: MERON Hydroxyurea (Hydroxyurea 500 Mg Capsule) 500 mg PO DAILY [facility] Last Admin: 03/19/24 09:01 Dose: 500 mg Documented By: MERON Vancomycin HCl 1,500 mg/ (Sodium Chloride) 500 mls @ 333.333 mls/hr IV Q12H [facility] Last Infusion: 03/19/24 10:34 Dose: Infused Documented By: MERON Magnesium Hydroxide (Milk Of Magnesia 30 Ml Oral.Susp) 30 ml PO DAILY PRN PRN Reason: Constipation Melatonin (Melatonin 3 Mg Tablet) 6 mg PO BEDTIME PRN PRN Reason: Insomnia Morphine Sulfate (Morphine Sulfate 4 Mg/Ml Cartridge) 2 mg IVPUSH Q4H PRN; Protocol PRN Reason: Pain, Severe (Pain Scale 7-10) Last Admin: 03/18/24 08:21 Dose: 2 mg Documented By: FILEMON Non-Formulary Medication (Clindamycin Phosphate) 1 appl TOPICAL BID PRN PRN Reason: flared lesion prophylaxis Omeprazole (Omeprazole 20 Mg Capsule.Dr) 20 mg PO DAILY@0630 [facility] Last Admin: 03/19/24 06:34 Dose: 20 mg Documented By: LUIS Ondansetron HCl (Ondansetron Hcl 4 Mg/2 Ml Vial) 4 mg IVPUSH Q8H PRN PRN Reason: Nausea and Vomiting Oxycodone HCl (Oxycodone Hcl Immed Release 15 Mg Tablet) 30 mg PO Q6H PRN PRN Reason: Pain, Severe (Pain Scale 7-10) Last Admin: 03/19/24 06:34 Dose: 30 mg Documented By: LUIS Pharmacy Consult (Consult Rx Vancomycin Dosing) 1 each MISCELLANE DAILY PRN PRN Reason: Consult order Polyethylene Glycol (Polyethylene Glycol 3350 17 Gm Powd.Pack) 17 gm PO DAILY PRN PRN Reason: Constipation Sodium Chloride (0.9 % Sodium Chloride Flush 3 Ml Syringe) 3 ml IVFLUSH QSHIFT [facility] Last Admin: 03/19/24 07:17 Dose: Not Given Documented By: MERON Non-Admin Reason: Previously Administered Tizanidine HCl (Tizanidine Hcl 4 Mg Tablet) 4 mg PO Q8H PRN PRN Reason: muscle spasm Vitamin D (Cholecalciferol (Vitamin D3) 25 Mcg Tablet) 25 mcg PO DAILY [facility] Last Admin: 03/19/24 09:00 Dose: 25 mcg Documented By: MERON Labs 03/17/24 22:16 03/19/24 08:51 Labs: Laboratory Results - last 24 hr 03/19/24 08:51 Estim Creat Clear Calc 154.9 Estimated GFR > 60 Microbiology Microbiology Results: Microbiology 03/17/24 22:16 Blood Culture - Preliminary Blood - Venous Prelim: GPC Gram Stain only 03/17/24 21:58 Blood Culture - Preliminary Blood - Venous No growth after 24 hours. Assessment and Plan (1) Abscess and cellulitis of gluteal region: Status: Acute (2) Cellulitis: Status: Acute Plan 38-year-old man who comes into the emergency room complaining pain in right buttocks.?Patient with history of chronic?right buttocks ulcer?secondary to?hidradenitis suppurativa.??f acute infection/cellulitis Ulcer of buttock ?Wound care consult and surgery consult to see if he needs debridment -vanco for bacteremia, po keflex gram positive cocci bacteremia 1/2 could be contamination, vanco ? Chronic pain syndrome ?He will be placed under observation?on regular floor. -continue oxycodone, he maybe . ? Chronic ischemic left ICA stroke -?Continue home Eliquis?5 mg p.o. twice a day ? Depression -Continue duloxetine ? Hypertension -hold meds at this time ? Chronic GERD -PPI ? Iron deficiency anemia-Stable.?Monitor H&H. -?Continue ferrous sulfate 325 mg daily ? Thrombocytosis -??platelets at baseline, continue home hydroxyurea ? VTE Prophylaxis: eliquis Quality Stroke Does the patient have a stroke diagnosis?: No VTE Prior VTE?: No VTE Risk Level:: Medical - moderate - high VTE Device Contraindication: Treatment Not Indicated VTE Drug Contraindication: N/A - Med Ordered
[2024-03-19] MEDS: Doxycycline Monohydrate 100 MG CAPSULE PO ×2 (12:03→22:08)
--- NOTE | 2024-03-19 12:17 | HO.WOUND ---
Addendum entered by Funmi Glaser RN 03/20/24 12:29: Updated topical recommendations for home care below: Topical recommendations: Bilateral Buttock: Cleanse with Antibacterial wash, pat dry. Apply Skin prep barrier wipe, allow to dry. Apply Durafiber AG to draining wounds, cover with dry gauze and ABD pad or Absorptive dressing. May change every other day and PRN for soiling. Recommend followup with Dermatology at time of discharge for updated HS treatment options. Patient instructed to have close follow up in an effort to avoid infection. Recommend follow up out patient Wound Clinic at [address] [place] [address] and to call for an appointment at time of discharge. [phone].? Original Note: Wound consultation: Initial 38yr old male admitted to [facility] on 03/18/24 - see H&P for detailed history. Wound consult placed for bilateral buttock wounds. Wound location: Left Buttock Wound Etiology: Hidradenitis Suppuritiva Wound bed: red moist tissue and scar tissue noted - appears to be healing Periwound: no erythema no induration no fluctuance no odorous drainage noted. No s/s of active infection at this time. Goals of Care: Moisture Management with Durafiber AG Wound location: Right Buttock Wound Etiology: Hidradenitis Suppuritiva Wound bed: various Pin sized oozing areas approximately 10 sites unable to visualize wound beds Periwound: Hyperpigmentation noted - -consistent with chronic moisture and chronic flares of Hidradenitis Suppuritiva, Induration and mild fluctuance noted throughout right buttocks. Observed old track darion sites from previous flares. No odorous drainage noted. Sites are draining creamy yellow white fluid - not consistent with purulence or active infection but with active flare of HS Goals of Care: Moist management with Durafiber AG Patient reports he does follow with Dermatology for treatment of his Hidradenitis and received Injections to control flares but has not recently has injections due to his stroke. Pt instructed to maintain close followup with Dermatology at time of discharge HS treatmetn options. Pt instructed to have close follow up in an effort to avoid infection. Recommend follow up out patient Wound Clinic at [address] [place] [address] and to call for an appointment at time of discharge. [phone].? Topical recommendations: Bilateral Buttock: Cleanse with CHG (Antibacterial wash/ Wipes), pat dry. Apply Skin prep barrier wipe, allow to dry. Apply Durafiber AG to draining wounds, cover with dry gaue and ABD pad or Absorpative dressing. May change daily and PRN for soiling.
[2024-03-19] MEDS: ondansetron HCL 4 MG/2 ML VIAL IVPUSH (12:43)
--- NOTE | 2024-03-19 12:55 | ECG_ITS ---
Test Reason : MD order Blood Pressure : / mmHG Vent. Rate : 048 BPM Atrial Rate : 048 BPM P-R Int : 154 ms QRS Dur : 102 ms QT Int : 466 ms P-R-T Axes : 020 -24 -18 degrees QTc Int : 416 ms Sinus bradycardia Minimal voltage criteria for LVH, may be normal variant ( R in aVL ) Borderline ECG No previous ECGs available Referred By: Vinay [facility] Electronically Signed By:HCIDI GREENE MD
[2024-03-19 13:31] LABS: Anion Gap 14 (12-20); Carbon Dioxide 24 mmol/L (22-29); Chloride 105 mmol/L (96-108); Magnesium 2.1 mg/dL (1.6-2.6); Potassium 3.9 mmol/L (3.3-5.1); Sodium 139 mmol/L (135-145)
--- NOTE | 2024-03-19 15:46 | MHC.CM.PN ---
Patient lives in an apartment alone. Hx CVA w/ right sided weakness. Has daily PEDIATRIC SURGEON hours, total of 42 hrs/wk. Brother is PEDIATRIC SURGEON. Mother lives nearby and also assists daily. Uses electric w/c. Active w/ [facility] for SN (wound care) and PT. PCP Kisha Solano HCP on file and verified. DP: Goal is home, resume PEDIATRIC SURGEON and VNA services. BLS transport. CM will continue to follow.
[2024-03-19] MEDS: Melatonin 3 MG TABLET 6 MG PO (20:05)
[2024-03-19] MEDS: 0.9 % Sodium Chloride Flush 3 ML SYRINGE IVFLUSH (22:09)
[2024-03-20] MEDS: oxyCODONE HCl Immed Release 15 MG TABLET 30 MG PO ×3 (00:55→12:36)
[2024-03-20 03:13] VITALS: BP 125/74; PULSE 52; RESP 14; TEMP 36.8; O2SAT 98
[2024-03-20] MEDS: Omeprazole 20 MG CAPSULE.DR PO (06:30)
[2024-03-20 07:21] VITALS: BP 143/66; PULSE 52; TEMP 36.6; O2SAT 98
[2024-03-20 07:32] LABS: Hematocrit 30.8 % (42.0-52.0); Hemoglobin 9.8 g/dl (14.0-18.0); Mean Corpuscular HGB Conc 31.8 g/dl (31.0-36.0); Mean Corpuscular Hemoglobin 27.4 pg (27.0-33.0); Platelet Count 566 X10*3/uL (160-400); Red Blood Count 3.58 X10*6/uL (4.60-5.80); Red Cell Distribution Width 14.1 % (11.0-16.0); White Blood Count 7.4 X10*3/uL (4.8-10.8)
[2024-03-20 07:49] LABS: Creatinine Clr Calc Pharmacy 134.3; Estimated Glomerular Filt Rate > 60
[2024-03-20 08:00] LABS: Vancomycin Random 17.3 mcg/mL (15-20)
[2024-03-20] MEDS: Hydroxyurea 500 MG CAPSULE PO (08:24)
[2024-03-20] MEDS: amLODIPine Besylate 5 MG TABLET PO (08:25)
[2024-03-20] MEDS: Cholecalciferol (Vitamin D3) 25 MCG TABLET PO (08:25)
[2024-03-20] MEDS: cephALEXin 500 MG CAPSULE PO ×2 (08:25→12:33)
[2024-03-20] MEDS: Ferrous Sulfate 324 MG TABLET.DR PO (08:25)
[2024-03-20] MEDS: Apixaban 5 MG TABLET PO (08:25)
[2024-03-20] MEDS: Ascorbic Acid 500 MG TABLET PO (08:25)
[2024-03-20] MEDS: vancomycin HCL 1,500 MG in 0.9 % Sodium Chloride 500 ML 333.33 MG IV (08:25)
[2024-03-20] MEDS: Folic Acid 1 MG TABLET PO (08:25)
[2024-03-20] MEDS: Baclofen 20 MG TABLET PO ×2 (08:25→12:33)
[2024-03-20] MEDS: Gabapentin 300 MG CAPSULE 600 MG PO (08:25)
[2024-03-20] MEDS: DULoxetine HCl 30 MG CAPSULE.DR PO (08:25)
[2024-03-20] MEDS: 0.9 % Sodium Chloride Flush 3 ML SYRINGE IVFLUSH (08:29)
--- NOTE | 2024-03-20 08:30 | HE.PHANOTE ---
[facility] Patients level came back this morning at 17.3. Renal did increase from scr of 0.78 to 0.90. Will decrease dose to 1250 mg Q12H instead of 1500 mg Q12H. Predicted AUC 566. NExt level 03/21 @0600
[2024-03-20] MEDS: vancomycin HCL 1,250 MG in 0.9 % Sodium Chloride 250 ML 166.67 MG IV (08:39)
--- NOTE | 2024-03-20 11:36 | MHC.CM.PN ---
PER MD ROUNDS PATIENT NOT MEDICALLY CLEARED FOR DC. AWAITING FINAL CX, POTENTIAL DC LATER TODAY. DC PLAN REMAINS HOME, RESUME CLINICAL NURSE/[facility] SERVICES, BLS TRANSPORT. CM WILL CONTINUE TO FOLLOW.
--- NOTE | 2024-03-20 12:03 | P.DS_ITS ---
DS: Providers Provider Date of Service: 03/20/24 Date of admission: 03/18/24 06:27 Primary care physician: DARY Childress Consults: 03/18/24 05:52 Consult to Wound Care Routine Reason for consultation: buttock 03/18/24 09:20 Consult to General Surgery Routine Consulting Provider: [facility] Reason for consultation: buttock ulcer ? need for debridment 03/18/24 13:24 Consult to Infectious Diseases Routine Consulting Provider: [facility] Reason for consultation: decub ulcer, infected DS: Diagnosis Discharge Diagnosis (1) Abscess and cellulitis of gluteal region: Status: Acute (2) Cellulitis: Status: Acute DS: Summary Hospital Course Hospital Course: admission hpi Chief Complaint: buttock abscess This is a 38-year-old man who has significant history of CVA with residual right sided hemiparesis and expressive aphasia, anticoagulated on Eliquis, h/o hidradenitis suppurativa of right buttocks, hypertension, depression, GERD, chronic continuous opiate use.? He presents with increased pain at the area of buttock wound and claim to run out of pain medication at home. He's been admitted out of concern for cellulitis and intractable pain. He is seen frequently for this most recently at [facility]. He denies any fever, chills, nausea, vomiting, diarrhea, shortness of breath, chest pain, palpitations or dizziness. hospital course: The patient presented with pain in the buttock area and reported running out of his home prescription for oxycodone. Upon evaluation in the ED, there was concern for a possible abscess or cellulitis. However, a CT scan ruled out an abscess. He was started on empiric antibiotics and evaluated by both Surgery and Wound Care, with no evidence of acute infection. Blood cultures grew *1/2 Coagulase-negative Staphylococcus*, which was deemed a contaminant and does not require treatment. The patient's primary concern was pain management. He will be provided with a limited supply of pain medication to cover the weekend and instructed to follow up with his PCP for ongoing pain management to prevent unnecessary ED visits. Time Attestation Discharge Coordination Time (in mins): 35 Quality: Safe Use of Opioids Does Pt have an Active Cancer Diagnosis on the Problem List?: No Quality: Stroke Does the patient have a stroke diagnosis?: No Physical Exam Vital Signs: Vital Signs: Last Vital Signs Temp 98 F 03/20/24 07:21 Pulse 52 03/20/24 07:21 Resp 14 03/20/24 03:13 BP 143/66 H 03/20/24 07:21 Pulse Ox 98 03/20/24 07:21 O2 Del Method Room Air 03/20/24 07:21 BMI result Body Mass Index 27.5 DS: Data Data Completed and Pending Labs on day of discharge: Laboratory Results - last 24 hr 03/19/24 03/20/24 08:51 06:54 WBC 7.4 RBC 3.58 L Hgb 9.8 L Hct 30.8 L MCV 86.0 MCH 27.4 MCHC 31.8 RDW 14.1 Plt Count 566 H MPV 9.0 L Absolute Nucleated RBC 0.000 Nucleated RBC % (auto) 0.0 Sodium 139 Potassium 3.9 Chloride 105 Carbon Dioxide 24 Anion Gap 14 Creatinine 0.90 Estim Creat Clear Calc 134.3 Estimated GFR > 60 Magnesium 2.1 Random Vancomycin 17.3 Preliminary micro results at discharge 03/17/24 21:58 Blood Culture - Preliminary Blood - Venous No growth after 48 hours. Discharge Plan Discharge Anticipated Discharge Date/Time: 03/20/24 11:48 Patient Disposition: Home Health Service Discharge Diagnosis: Acute on chronic pain and chronic buttock ulcers Referrals: [facility] [Outside] - 1 Day (resume services) Kisha Solano FNP- [Primary Care Provider] - 1 Week Discharge Medications: Continued hydroxyurea 500 mg capsule 500 mg PO DAILY triamcinolone acetonide 0.1 % cream 1 appl topical BID cephalexin 500 mg capsule 500 mg PO QID pantoprazole 40 mg tablet,delayed release (DR/EC) 40 mg PO DAILY@0630 docusate sodium 100 mg capsule 100 mg PO BID tizanidine 2 mg tablet 4 mg PO Q8H PRN (Reason: muscle spasm) cholecalciferol (vitamin D3) [Vitamin D3] 25 mcg (1,000 unit) Tablet 25 mcg PO DAILY oxycodone 30 mg tablet 30 mg PO Q6H PRN (Reason: pain) Qty: 16 0RF clindamycin phosphate 1 % gel 1 appl topical BID PRN (Reason: flared lesion prophylaxis) ferrous sulfate 325 mg (65 mg iron) tablet 325 mg PO DAILY duloxetine 30 mg capsule,delayed release(DR/EC) 30 mg PO DAILY Eliquis 5 mg tablet 5 mg PO BID Ilaris (PF) 150 mg/mL solution 150 mg subcut Q28D baclofen 20 mg tablet 20 mg PO QID gabapentin 300 mg capsule 600 mg PO TID folic acid 1 mg tablet 1 mg PO DAILY acetaminophen 500 mg Tablet 500 mg PO Q4H PRN (Reason: Pain) doxycycline hyclate 100 mg tablet 100 mg PO BID Qty: 28 0RF ascorbic acid (vitamin C) [Vitamin C] 500 mg tablet 500 mg PO DAILY Discharge Orders: Discharge Order (Routine); Ordered 03/20/24 Ordered By: Vinay Neumann Diet: Advance to usual diet Activity on Discharge: As tolerated Stand Alone Forms: Patient Portal Discharge page Print Language: Venezuelan Activity Restrictions/Additional Instructions: Topical recommendations: Care Plan Goals: Pain control, chronic wound management Health Concerns: chronic pain chronic buttock ulcers Plan of Treatment: Bilateral Buttock: Cleanse with Antibacterial wash, pat dry. Apply Skin prep barrier wipe, allow to dry. Apply Durafiber AG to draining wounds, cover with dry gauze and ABD pad or Absorptive dressing. May change every other day and PRN for soiling. Recommend followup with Dermatology at time of discharge for updated HS treatment options. Patient instructed to have close follow up in an effort to avoid infection. Recommend follow up out patient Wound Clinic at [address] [place] [id number] and to call for an appointment at time of discharge. [phone].? Assessment: see above
[2024-03-20] MEDS: Doxycycline Monohydrate 100 MG CAPSULE PO (12:33)
== END 2024-03-20 15:30 | disposition home health service (06) | DRG 383 ==
LOC: HO.ED 03-18 01:14 → HO.EDOVER 03-18 06:31 → HO.S3 03-18 15:43
PROVIDERS: Admitting Provider Internal Medicine; Emergency Provider Emergency Medicine Emergency Medical Services; PCP Nurse Practitioner Family; Visit Provider Internal Medicine
DX: L03.317 Cellulitis of buttock (principal); I69.351 Hemiplegia and hemiparesis following cerebral infarction affecting right dominant side; D75.839 Thrombocytosis, unspecified; F32.A Depression, unspecified; I10 Essential (primary) hypertension; K21.9 Gastro-esophageal reflux disease without esophagitis; G89.4 Chronic pain syndrome; D50.9 Iron deficiency anemia, unspecified; L73.2 Hidradenitis suppurativa; Z79.01 Long term (current) use of anticoagulants; Z79.899 Other long term (current) drug therapy
CPT/HCPCS: 36415; 74176; 80048; 80051; 80076; 80202; 81001; 82565; 83605; 83735; 85025; 85027; 87040; 87147; 87205; 93005; 99285; J0696; J1171; J2270; J2405; J3370; J3371

== ENCOUNTER 2024-03-18 06:27 | Outpatient (BNV) | payer OTHER, SELFPAY | END 2024-03-19 12:55 | PROVIDERS: Admitting Provider Internal Medicine; Emergency Provider Emergency Medicine Emergency Medical Services; Visit Provider Internal Medicine Cardiovascular Disease | DX: R00.1 Bradycardia, unspecified (principal) | CPT/HCPCS: 93010 ==

== ENCOUNTER → 2024-03-18 06:27 | Outpatient (BNV) | payer OTHER, SELFPAY | PROVIDERS: Admitting Provider Internal Medicine; Emergency Provider Emergency Medicine Emergency Medical Services; PCP Nurse Practitioner Family; Visit Provider Surgery | DX: L73.2 Hidradenitis suppurativa (principal) | CPT/HCPCS: 99222 ==

== ENCOUNTER → 2024-03-18 06:27 | Outpatient (BNV) | payer OTHER, SELFPAY | PROVIDERS: Admitting Provider Internal Medicine; Emergency Provider Emergency Medicine Emergency Medical Services; Visit Provider Internal Medicine | DX: L03.317 Cellulitis of buttock (principal); L02.31 Cutaneous abscess of buttock; G89.4 Chronic pain syndrome; I69.351 Hemiplegia and hemiparesis following cerebral infarction affecting right dominant side | CPT/HCPCS: 99223; 99232; 99239 ==

== ENCOUNTER 2024-03-23 10:54 | Outpatient (AMB) | payer OTHER, SELFPAY ==
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
[2024-03-23 11:39] VITALS: BP 110/61; PULSE 77
== END 2024-03-23 11:58 | disposition home or self-care (01) ==
PROVIDERS: PCP Nurse Practitioner Family; Referring Provider Nurse Practitioner Family; Visit Provider Surgery
DX: L73.2 Hidradenitis suppurativa (principal)
CPT/HCPCS: 99204

== ENCOUNTER → 2024-03-23 10:54 | Outpatient (BNVA) | payer OTHER, SELFPAY | PROVIDERS: PCP Nurse Practitioner Family; Referring Provider Nurse Practitioner Family; Visit Provider Surgery | DX: L73.2 Hidradenitis suppurativa (principal) | CPT/HCPCS: 99202 ==

== ENCOUNTER 2024-03-25 10:08 | Outpatient (AMB) | payer OTHER, SELFPAY ==
--- NOTE | 2024-03-25 10:18 | A.OFFPC_ITS ---
Vital Signs 3 03/25/24 10:28 Height 6 ft 4 in Weight 220 lb BMI 26.8 BP 112/74 Blood Pressure Location Lt brachial Position Sitting Respiration 16 Pulse 84 Pulse Source Pulse Oximeter Temp 98.9 F Temp Source Oral Pulse Oximetry (%) 99 Oxygen Delivery Method Room Air Intake Visit Reasons: f/u Intake Note: patient here for follow up for meds need refill and ED discharge E Business Project Manager Required: No Allergies No Known Allergies Allergy (Verified 03/25/24 10:36) Medication List - Last Reconciled 03/25/24 by TYLER Childress- acetaminophen 500 mg PO Q4H PRN apixaban (Eliquis) 5 mg PO BID ascorbic acid (vitamin C) (Vitamin C) 500 mg PO DAILY baclofen 20 mg PO QID canakinumab (PF) (Ilaris (PF)) 150 mg subcut Q28D cephalexin 500 mg PO QID cholecalciferol (vitamin D3) (Vitamin D3) 25 mcg PO DAILY clindamycin phosphate 1% 1 appl topical BID PRN docusate sodium 100 mg PO BID doxycycline hyclate 100 mg PO BID duloxetine 30 mg PO DAILY ferrous sulfate 325 mg PO DAILY folic acid 1 mg PO DAILY gabapentin 600 mg PO TID hydroxyurea 500 mg PO DAILY oxycodone 30 mg PO Q6H PRN pantoprazole 40 mg PO DAILY@0630 tizanidine 4 mg PO Q8H PRN triamcinolone acetonide 0.1% 1 appl topical BID Tobacco use date assessed: 03/11/24 Dental Screening Dental Screen Date: 03/25/24 Did you have a dental visit in the last 12 months?: No Did you have a dental problem in the last 6 months where you did not have access to dental care?: No Was dental information given to patient?: Yes HPI HPI Comments 2 History of Present Illness0 Details 38 y/o M with CVA with R hemiparesis (20 21) now on Eliquis, hidradenitis suppurativa, opiate dependence in remission, Iron def anemia, Benign-appearing right renal cysts Social: Living at home w/ Mom or Brother; Wheelchair dependent Specialist: [facility] in [place] Health Maintenance: Tdap reports UTD Flu shot 01/2024 Here today for a Transitional Care Management Visit Discharge summary reviewed: The patient presented with pain in the buttock area and reported running out of his home prescription for oxycodone. Upon evaluation in the ED, there was concern for a possible abscess or cellulitis. However, a CT scan ruled out an abscess. He was started on empiric antibiotics and evaluated by both Surgery and Wound Care, with no evidence of acute infection. Blood cultures grew *1/2 Coagulase-negative Staphylococcus*, which was deemed a contaminant and does not require treatment. The patient's primary concern was pain management. He will be provided with a limited supply of pain medication to cover the weekend and instructed to follow up with his PCP for ongoing pain management to prevent unnecessary ED visits. Admission Date: 03/18/24 Discharge Date: 03/20/24 Hospital: [facility] Date of interactive contact with Nurse Hernandez: as documented in chart Pending diagnostic tests/treatments: none Pending consults: none DME: no new PT/OT/INSURANCE DEFENSE PARALEGAL: PT Home Health Aide/SHEET METAL FABRICATOR: continued Community Resources: n/a Asst Living: n/a [facility] , active w/ PT, refuses though due to pain Hospice: n/a Support group: n/a Other: n/a Referrals: Bilateral Buttock: Cleanse with Antibacterial wash, pat dry. Apply Skin prep barrier wipe, allow to dry. Apply Durafiber AG to draining wounds, cover with dry gauze and ABD pad or Absorptive dressing. May change every other day and PRN for soiling. Recommend followup with Dermatology at time of discharge for updated HS treatment options. Patient instructed to have close follow up in an effort to avoid infection. Recommend follow up out patient Wound Clinic at [address] [place] [id number] and to call for an appointment at time of discharge. [phone]. Medications reconciled & updated. During todays TCM visit, the d/c summary was reviewed, along with the need for or follow-up on pending diagnostic tests and treatments, as necessary interaction with other health account executive healthcare who will assume or reassume care of the beneficiary?s system-specific problems was done or is being worked on, education was provided to the beneficiary, family, guardian, and/or caregiver, referrals to establish or re-establish and arrange needed community resources we completed, assistance in scheduling required follow-up with community providers and services & finally updated medication list given to patient/caregiver Since return home he has scheduled an appointment with his surgeon and laborer cutting tool at [facility]. He is performing care to his buttocks as directed. [facility] visiting nurse is coming in to assist. He does have physical therapy however he declines due to his pain. He was using oxycodone 30 mg q.6 hours as needed for pain. The last time he took this medication was yesterday as he has run out. He does have SHEET METAL FABRICATOR services in the home however he would like an increase in number of hours to include overnight services. He needs a letter for this. He is taking all medications as directed. Exam: Awake, Alert, NAD, chronically ill appearing, sitting in wheelchair RRR LS CTAB Right hemiparesis upper and lower ext, R facial droop, slow slurred speech, word finding difficulties PP normal bilat, no edema Plan Refer to Neuro and Cards for CVA, on eliquis, refill sent today. Cont care w/ Derm and Plastics @ [facility] as scheduled DOA urine to be done today. Reviewed contract with him and family today. See results below. I have sent in a 28 day prescription of oxycodone 30 mg q.6 hours p.r.n. pain. He should use this only as needed for severe pain. Use [id number] analgesics to assist and pain control. Continue with physical therapy, visiting nurse. We will need to have him sign a pain contract when he comes in next time. Made aware that marijuana can not be used going forward and he should immediately stop. States that he was using this for pain. Low threshold to stop for any concern for misuse/abuse or misappropriation. I have written him a letter requesting to increase SHEET METAL FABRICATOR hours. I have posted this with the portal and I have sent the original letter to his home as requested. Needs refills on Derm meds, advised to f/u with the Derm office directly NN referral as high risk for readmit/frequent ED use I have also encouraged f/u with [facility] to see about add'l services/in home help. Return to the office in 1 month for close interim follow up, sooner as needed This note is constructed using voice recognition software. While every effort has been made to ensure accuracy in dopster, still errors may have been included Sometimes, these errors may affect the content or meaning of the given sentence . Total time spent caring for the patient today was 60 minutes. This includes time spent before the visit reviewing the chart, time spent during the visit, and time spent after the visit on documentation [facility] Medical History Hidradenitis Imbalance Neuropathy Anxiety and depression GERD (gastroesophageal reflux disease) Hypertension Abscess and cellulitis of gluteal region CVA (cerebral vascular accident) Opiate abuse, continuous Surgical History No pertinent past surgical history Family History Mother Mental health disorder Asthma Thyroid disease Cervical cancer Maternal Grandmother Mental health disorder Asthma Diabetes Cardiovascular disease Thyroid disease Father Substance abuse Hypertension High cholesterol Cardiovascular disease Clotting disorder Maternal Grandfather Diabetes Cardiovascular disease Paternal Grandfather Clotting disorder Social History (Updated 03/23/24 @ 11:38 by PAOLA Corrales) Household Members: Family Both parents involved: No Caregiver staying overnight: Yes (mom) Housing: Apartment Are you a primary manager care to a significant other at home: No Do you presently have visiting nurse or other home services: Yes 75 years or older and lives alone: No Alcohol intake: never Patient Tobacco Use Status: Never used Tobacco Cigarettes Per Day: 4 e-Cigarette/Vaping Use: Never Used Second Hand Smoke Exposure: No Substance Use Type: Marijuana Advance Directives Date on File: 02/19/23 service: No Current occupational status: disabled Cognitive needs: No Hearing needs: No Vision needs: No Questionnaire Thrive Questionnaire Date Thrive assessed: 03/19/24 ANNA-7 AMB Questionnaire ANNA-7 Date ANNA - 7 assessed: 03/11/24 Source: Developed by Drs. Bismark Gordon, Carmen Hardy, See Case and colleagues, with an educational sandra from [employer]. Physical exam (Primary Care) Vital Signs: Last Vital Signs Temp 98.9 F 03/25/24 10:28 Pulse 84 03/25/24 10:28 Resp 16 03/25/24 10:28 BP 112/74 03/25/24 10:28 Pulse Ox 99 03/25/24 10:28 Oxygen Delivery Method Room Air 03/25/24 10:28 BMI result Body Mass Index 26.8 Tobacco/Smoking Status: Tobacco use Status Tobacco use date assessed 03/11/24 03/25/24 10:18 Patient Tobacco Use Status Never used Tobacco 03/25/24 10:18 e-Cigarette/Vaping Use Never Used 03/25/24 10:18 Thrive Assessment: Date of Thrive Assessment Date Thrive assessed 03/19/24 03/25/24 10:18 Results Reviewed Results Reviewed: RUN: 03/25/24 1636 PAGE 1 [facility] [address] [place] [id number] Cream Dumper: Alton Fletcher M.D. Specimen Inquiry L Name: David Henry Age/Sex: 38/M : 1985 Unit#: [id number] Attend Dr: Kisha Solano Re03/25/24 Status: REG REF Location: [facility] isch: SPEC : [id number] KIMBERLEY: 03/25/24 STATUS: COMP REQ : [id number] RECD: 03/25/24-[address]: Kisha Solano COMP: 03/25/24-0 ENTERED: 03/25/24-[address]: ORDERED: Ur Drug Scrn Test Result Flag Reference Opiates, Ur POSITIVE H Not Detect Opiate cut-off is 300 ng/mL. Positive results are unconfirmed and should not be used for non-medical purposes. Barbiturate, Ur Not Detected Not Detect Barbiturate cut-off is 200 ng/mL. Positive results are unconfirmed and should not be used for non-medical purposes. PCP, Ur Not Detected Not Detect Phencyclidine cut-off is 25 ng/mL. Positive results are unconfirmed and should not be used for non-medical purposes. Amphetamine,Ur Not Detected Not Detect Amphetamine cut-off is 1000 ng/mL. Positive results are unconfirmed and should not be used for non-medical purposes. Benzodiazep,Ur Not Detected Not Detect Benzodiazepine cut-off is 200 ng/mL. Positive results are unconfirmed and should not be used for non-medical purposes. Cocaine, Ur Not Detected Not Detect Cocaine cut-off is 300 ng/mL. Positive results are unconfirmed and should not be used for non-medical purposes. Cannabinoid, Ur POSITIVE H Not Detect Cannabinoid cut-off is 50 ng/mL. Positive results are unconfirmed and should not be used for non-medical purposes. Ur Meth Scrn Not Detected Not Detect ng/mL Methadone cut-off is 300 ng/mL. Positive results are unconfirmed and should not be used for non-medical purposes. Fentanyl, ur Not Detected Not Detect Fentanyl cut-off is 1 ng/mL. Positive results are unconfirmed and should not be used for non-medical purposes. Oxycodone Urine Positive H Not Detect ng/mL Oxycodone cut-off is 100 ng/mL. Positive results are unconfirmed and should not be used for non-medical purposes. Buprenorph Scr Not Detected Not Detect ng/mL Buprenorphine cut-off is 5 ng/mL. Positive results are unconfirmed and should not be used for non-medical purposes. END OF REPORT Coding Level of Care Code TCM High MDM <= 7 Days Complex EM visit Add On G2211 Diagnoses Hospital discharge follow-up Z09 Cerebrovascular accident (CVA) due to occlusion of left carotid artery I63.232 CVA mechanism: occlusion Laterality of affected vessel: left Precerebral and cerebral artery: carotid artery Right hemiparesis G81.91 Opiate abuse, continuous F11.10 Assessment & Plan Assessment & Plan (1) Hospital discharge follow-up: Code(s): Z09 - Encounter for follow-up examination after completed treatment for conditions other than malignant neoplasm Plan: . (2) CVA (cerebral vascular accident): Comment: 2020 dense hemiparesis on the right side, CTA of the head and neck showed blockage from upper end of left ICA all the way to left MCA and KRISTAL origin no blood flow on the left side patient started on tPA transferred to at [facility] neurointerventional Code(s): I63.9 - Cerebral infarction, unspecified Category: Medical Qualifiers: CVA mechanism: occlusion Laterality of affected vessel: left P recerebral and cerebral artery: carotid artery Qualified Code(s): I63.232 - Cerebral infarction due to unspecified occlusion or stenosis of left carotid arteries Plan: . (3) Right hemiparesis: Comment: s/p CVA affecting right upper and lower ext Code(s): G81.91 - Hemiplegia, unspecified affecting right dominant side Category: Medical Plan: . (4) Opiate abuse, continuous: Comment: in the past, [employer] WIRE[employer] reviewed. Code(s): F11.10 - Opioid abuse, uncomplicated Category: Medical Plan: . Plan . Orders: Orders 2 Drug Screen Urine Today F11.10 - Opioid abuse, uncomplicated Opiates GCMS Expanded, Ur Today F11.10 - Opioid abuse, uncomplicated Referrals 2 Cardiology Referral G81.91 - Hemiplegia, unspecified affecting right dominant side, I63.232 - Cerebral infarction due to unspecified occlusion or stenosis of left carotid arteries Neurology Referral G81.91 - Hemiplegia, unspecified affecting right dominant side, I63.232 - Cerebral infarction due to unspecified occlusion or stenosis of left carotid arteries Nurse Navigator Referral Z13.9 - Encounter for screening, unspecified Medications: New 2 apixaban (Eliquis) 5 mg PO BID 60 tabs 3RF duloxetine 30 mg PO DAILY 90 caps 2RF docusate sodium 100 mg PO BID 180 caps 2RF Changed 2 From oxycodone 30 mg PO Q6H PRN 16 tabs 0RF pain To oxycodone 30 mg PO Q6H 28 days PRN 112 tabs 0RF pain Patient Instructions: [email or web address] ... ? [employer] [email or web address] Our services are designed to assist individuals with disabilities in making informed choices about work. Call and speak to our operations research analyst.
[2024-03-25 10:28] VITALS: BP 112/74; PULSE 84; RESP 16; TEMP 37.2; O2SAT 99; BMI 26.8
== END 2024-03-25 11:24 | disposition home or self-care (01) ==
PROVIDERS: PCP Nurse Practitioner Family; Visit Provider Nurse Practitioner Family
DX: G81.91 Hemiplegia, unspecified affecting right dominant side (principal); F11.10 Opioid abuse, uncomplicated; Z09 Encounter for follow-up examination after completed treatment for conditions other than malignant neoplasm; I63.232 Cerebral infarction due to unspecified occlusion or stenosis of left carotid arteries

== ENCOUNTER 2024-03-25 10:51 | Outpatient (REF) | payer OTHER, SELFPAY ==
[2024-03-25 14:20] LABS: Amphetamine Screen Urine Not Detected (Not Detect); Barbiturates, Urine Not Detected (Not Detect); Benzodiazepines Screen Urine Not Detected (Not Detect); Buprenorphine Scr Not Detected (Not Detect); Cannabinoid Screen Urine POSITIVE (Not Detect); Cocaine Screen Urine Not Detected (Not Detect); Fentanyl, urine Not Detected (Not Detect); Methadone Screen, Urine Not Detected (Not Detect); Opiate Screen Urine POSITIVE (Not Detect); Oxycodone Screen Urine Positive (Not Detect); Phencyclidine Screen Urine Not Detected (Not Detect)
[2024-03-30 12:11] LABS: Codeine, Ur NEGATIVE; Hydrocodone, Ur NEGATIVE
[2024-03-30 12:13] LABS: Morphine, Ur >10000 (H); Norhydrocodone, Ur NEGATIVE
[2024-03-30 12:15] LABS: Noroxycodone, Ur 1441 (H)
[2024-03-30 12:21] LABS: Oxycodone, Ur 303 (H); Oxymorphone, Ur 5767 (H)
== END 2024-03-25 10:52 | disposition home or self-care (01) ==
LOC: HO.WFDLDS 10:51
PROVIDERS: Visit Provider Nurse Practitioner Family
DX: F11.10 Opioid abuse, uncomplicated (principal); I69.351 Hemiplegia and hemiparesis following cerebral infarction affecting right dominant side
CPT/HCPCS: 80307; 80365; 99496; G0480

== ENCOUNTER 2024-03-25 19:24 | Emergency (ER) | payer OTHER, SELFPAY ==
[2024-03-25 19:31] VITALS: BP 106/66; BP 118/78; PULSE 77; PULSE 87; RESP 18; TEMP 36.7; O2SAT 95; O2SAT 99; BMI 27.1
[2024-03-25 20:00] VITALS: BP 110/67; PULSE 78; RESP 18; O2SAT 99
[2024-03-25 22:35] VITALS: BP 127/40; PULSE 80; RESP 16; TEMP 36.9; O2SAT 99
--- NOTE | 2024-03-25 23:47 | ED.GENADULT ---
HPI - General Adult General Chief complaint: Back Pain/Injury Stated complaint: chronic pain on rear end Time Seen by Provider: 03/25/24 23:42 Source: patient, RN notes reviewed and old records reviewed Mode of arrival: EMS Limitations: no limitations History of Present Illness ED Provider: Baldemar HPI narrative: 38-year-old male with past medical history significant for CVA with chronic right hemiparesis, major depressive disorder, chronic opiate abuse, hidradenitis suppurativa presents for evaluation of lower back and coccyx pain. Patient has had pressure sores to his buttocks. He was seen him multiple times in the last few weeks including a recent admission. He was discharged last Saturday on 03/20/2024 It was determined that he did not have any active cellulitis and he is not currently taking antibiotics He was given a prescription for oxycodone 30 mg q.6 hours lasting for 3 days. He reports he saw his primary doctor earlier today and was prescribed more oxycodone but his insurance company would not fill it for him Therefore he presents for continued/chronic pain to his coccyx and buttocks area He denies any fevers or chills Related Data Home Medications ?Medication ?Instructions ?Recorded ?Confirmed acetaminophen 500 mg tablet 500 mg PO Q4H PRN Pain 02/17/23 03/25/24 baclofen 20 mg tablet 20 mg PO QID 02/17/23 03/25/24 canakinumab (PF) 150 mg/mL 150 mg subcut Q28D 02/17/23 03/25/24 subcutaneous solution (Ilaris (PF)) clindamycin phosphate 1 % topical 1 appl topical BID PRN flared 02/17/23 03/25/24 gel lesion prophylaxis ferrous sulfate 325 mg (65 mg 325 mg PO DAILY 02/17/23 03/25/24 iron) tablet folic acid 1 mg tablet 1 mg PO DAILY 02/17/23 03/25/24 gabapentin 300 mg capsule 600 mg PO TID 02/17/23 03/25/24 ascorbic acid (vitamin C) 500 mg 500 mg PO DAILY 03/11/24 03/25/24 tablet (Vitamin C) cephalexin 500 mg capsule 500 mg PO QID 03/18/24 03/25/24 cholecalciferol (vitamin D3) 25 25 mcg PO DAILY 03/18/24 03/25/24 mcg (1,000 unit) tablet (Vitamin D3) hydroxyurea 500 mg capsule 500 mg PO DAILY 03/18/24 03/25/24 pantoprazole 40 mg tablet,delayed 40 mg PO DAILY@0630 03/18/24 03/25/24 release tizanidine 2 mg tablet 4 mg PO Q8H PRN muscle spasm 03/18/24 03/25/24 triamcinolone acetonide 0.1 % 1 appl topical BID 03/18/24 03/25/24 topical cream Previous Rx's ?Medication ?Instructions ?Recorded doxycycline hyclate 100 mg tablet 100 mg PO BID #28 tabs 03/10/24 apixaban 5 mg tablet (Eliquis) 5 mg PO BID #60 tabs 03/25/24 docusate sodium 100 mg capsule 100 mg PO BID #180 caps 03/25/24 duloxetine 30 mg capsule,delayed 30 mg PO DAILY #90 caps 03/25/24 release oxycodone 30 mg tablet 30 mg PO Q6H PRN pain 28 days #112 03/25/24 tabs cyclobenzaprine 10 mg tablet 10 mg PO TID PRN muscle spasm #15 03/26/24 tabs Allergies Allergy/AdvReac Type Severity Reaction Status Date / Time No Known Allergies Allergy Verified 03/25/24 19:36 Review of Systems Constitutional: Constitutional: Denies body ache(s), Denies chills, Denies fever(s), Denies frequent falls and Denies headache(s) Eyes: Eyes: Denies blurry vision ENT: Denies headache(s) Cardiovascular: Cardiovascular: Denies chest pain and Denies dyspnea Respiratory: Respiratory: Denies cough and Denies dyspnea Gastrointestinal: Gastrointestinal: Denies abdominal pain Musculoskeletal: Musculoskeletal: Reports back pain and Denies deformity Integumentary/Breasts: Skin/Breast: Reports sores and Reports wounds Neurologic: Reports Abnormal speech present, Denies frequent falls and Denies headache(s) [facility] Past Medical History Medical History Hidradenitis Imbalance Neuropathy Anxiety and depression GERD (gastroesophageal reflux disease) Hypertension Abscess and cellulitis of gluteal region CVA (cerebral vascular accident) Opiate abuse, continuous Surgical History No pertinent past surgical history Family History Family History Mother Mental health disorder Asthma Thyroid disease Cervical cancer Maternal Grandmother Mental health disorder Asthma Diabetes Cardiovascular disease Thyroid disease Father Substance abuse Hypertension High cholesterol Cardiovascular disease Clotting disorder Maternal Grandfather Diabetes Cardiovascular disease Paternal Grandfather Clotting disorder Social History Social History (Updated 03/23/24 @ 11:38 by PAOLA Corrales) Household Members: Family Housing: Apartment Are you a primary intensive care medicine specialist to a significant other at home: No Do you presently have visiting nurse or other home services: Yes Alcohol intake: never Patient Tobacco Use Status: Never used Tobacco Cigarettes Per Day: 4 Smoked in Last 30 Days: Yes e-Cigarette/Vaping Use: Never Used Second Hand Smoke Exposure: No Use of substances other than those prescribed or required for medical reasons: Yes Substance Use Type: Marijuana Substance Use Frequency: Chronic Longstanding Advance Directives: Yes Advance Directives on File: Yes Advance Directives Date on File: 02/19/23 Do you have a plan to hurt others: No Plan service: No Current occupational status: disabled Cognitive needs: No Hearing needs: No Vision needs: No Physical Exam ED Vital Signs: Vital Signs - 24 hr 03/25/24 19:31 03/25/24 20:00 03/25/24 22:35 Temperature 98.1 F 98.5 F Pulse Rate 77 78 80 Respiratory Rate 18 18 16 Blood Pressure 106/66 110/67 127/40 L Pulse Oximetry 99 99 99 Oxygen Delivery Method Room Air Room Air Room Air 03/26/24 00:07 Temperature 98.9 F Pulse Rate 59 Respiratory Rate 19 Blood Pressure 122/71 Pulse Oximetry 100 Oxygen Delivery Method Room Air BMI result Body Mass Index 27.1 Const General: comfortable, no acute distress, alert and awake Nutritional Appearance: well nourished Orientation/consciousness: patient oriented x3 HENMT Head: Yes normocephalic and Yes atraumatic Eyes Eyelids: Yes eyelids normal Conjunctivae: conjunctivae normal Sclerae: sclerae normal Corneas: corneas normal Pupils: Equal, round and reactive pupils present EOM: EOMs intact bilaterally Neck Neck: Yes full ROM Resp Effort & Inspection: normal respiratory effort, able to speak in complete sentences and not labored Cardio Rate: regular rate Rhythm: regular rhythm GI Inspection: No distended Palpation (GI): Soft to palpation, not firm, nontender, no guarding and not rigid Skin Other: Patient has chronic bedsores, the gluteal region is indurated with no significant beefy red erythema General skin exam: elasticity normal Neuro General: patient oriented x3 and Unable to assess gait Cranial nerves: Yes Equal, round and reactive pupils present and Yes Bilaterally intact EOM present Cognition (Neuro): normal cognition Speech: Abnormal speech present and Expressive aphasia present Gait exam (Neuro): Unable to assess gait and Spastic hemiparesis gait present Medical Decision Making Medical Decision Making MDM Narrative: I reviewed the patient's recent admission and recent ER visits. He does not appear to have acute infection, he has no fever. I discussed with the patient we can give him a 1 time dose of his prescribed oxycodone but I would not prescribe any additional prescriptions. He will need to follow up with pain management. However I agreed to try cyclobenzaprine for his chronic back pain. Differential Diagnosis Differential Diagnoses: The differential diagnosis associated with the presentation includes Opiate abuse Chronic back pain Hemiparesis Pressure ulcer Discharge Plan Discharge Clinical Impression: Opiate abuse, continuous, Bed sore on buttock, Right hemiparesis, Lumbar radiculopathy Patient Disposition: Home, Self-Care Instructions: Pressure Injury (ED), Opioid Use Disorder (ED) Additional Instructions: I recommend that you follow-up with pain management. You may use Tylenol as needed for pain. You may try cyclobenzaprine as needed for muscle spasms. This may help your back pain and is not an opiate Follow up with your primary doctor, return for new or worsening symptoms Prescriptions: New cyclobenzaprine 10 mg tablet 10 mg PO TID PRN (Reason: muscle spasm) Qty: 15 0RF No Action hydroxyurea 500 mg capsule 500 mg PO DAILY triamcinolone acetonide 0.1 % cream 1 appl topical BID cephalexin 500 mg capsule 500 mg PO QID pantoprazole 40 mg tablet,delayed release (DR/EC) 40 mg PO DAILY@0630 tizanidine 2 mg tablet 4 mg PO Q8H PRN (Reason: muscle spasm) cholecalciferol (vitamin D3) [Vitamin D3] 25 mcg (1,000 unit) Tablet 25 mcg PO DAILY clindamycin phosphate 1 % gel 1 appl topical BID PRN (Reason: flared lesion prophylaxis) ferrous sulfate 325 mg (65 mg iron) tablet 325 mg PO DAILY Ilaris (PF) 150 mg/mL solution 150 mg subcut Q28D baclofen 20 mg tablet 20 mg PO QID gabapentin 300 mg capsule 600 mg PO TID folic acid 1 mg tablet 1 mg PO DAILY acetaminophen 500 mg Tablet 500 mg PO Q4H PRN (Reason: Pain) doxycycline hyclate 100 mg tablet 100 mg PO BID Qty: 28 0RF ascorbic acid (vitamin C) [Vitamin C] 500 mg tablet 500 mg PO DAILY Eliquis 5 mg tablet 5 mg PO BID Qty: 60 3RF duloxetine 30 mg capsule,delayed release(DR/EC) 30 mg PO DAILY Qty: 90 2RF docusate sodium 100 mg capsule 100 mg PO BID Qty: 180 2RF oxycodone 30 mg tablet 30 mg PO Q6H PRN (Reason: pain) 28 Days Qty: 112 0RF Print Language: Venezuelan
[2024-03-26 00:07] VITALS: BP 122/71; PULSE 59; RESP 19; TEMP 37.2; O2SAT 100
[2024-03-26] MEDS: oxyCODONE HCl Immed Release 15 MG TABLET 30 MG PO (00:35)
[2024-03-26 01:20] VITALS: BP 122/71; PULSE 59; RESP 19; TEMP 37.2; O2SAT 100
== END 2024-03-26 01:21 | disposition home or self-care (01) ==
PROVIDERS: Emergency Provider Emergency Medicine Emergency Medical Services
DX: M54.50 Low back pain, unspecified (principal); F11.10 Opioid abuse, uncomplicated; L89.329 Pressure ulcer of left buttock, unspecified stage; L89.310 Pressure ulcer of right buttock, unstageable; M54.16 Radiculopathy, lumbar region; G81.91 Hemiplegia, unspecified affecting right dominant side
CPT/HCPCS: 99283; 99284

== ENCOUNTER 2024-04-06 10:44 | Outpatient (AMB) | payer OTHER, SELFPAY ==
--- NOTE | 2024-04-06 11:33 | A.OFFPC_ITS ---
Vital Signs 04/06/24 11:37 Height 6 ft 4 in BMI Reason not done Patient refused/unable BP 122/72 Blood Pressure Location Lt brachial Position Sitting Respiration 14 Pulse 94 Pulse Source Pulse Oximeter Pulse Oximetry (%) 96 Oxygen Delivery Method Room Air Intake Visit Reasons: d/c from [facility] Intake Note: follow up on discharge Database Marketing Manager Required: Yes Database Marketing Manager Language: Resident Care Spec Name: Mary [id number] Accompanied by: Mother Allergies No Known Allergies Allergy (Verified 04/06/24 12:10) Medication List - Last Reconciled 04/06/24 by TYLER Childress- acetaminophen 500 mg PO Q4H PRN apixaban (Eliquis) 5 mg PO BID ascorbic acid (vitamin C) (Vitamin C) 500 mg PO DAILY baclofen 20 mg PO QID canakinumab (PF) (Ilaris (PF)) 150 mg subcut Q28D cephalexin 500 mg PO QID cholecalciferol (vitamin D3) (Vitamin D3) 25 mcg PO DAILY clindamycin phosphate 1% 1 appl topical BID PRN cyclobenzaprine 10 mg PO TID PRN docusate sodium 100 mg PO BID doxycycline hyclate 100 mg PO BID duloxetine 30 mg PO DAILY ferrous sulfate 325 mg PO DAILY folic acid 1 mg PO DAILY gabapentin 600 mg PO TID hydroxyurea 500 mg PO DAILY oxycodone 30 mg PO Q6H PRN 7 days pantoprazole 40 mg PO DAILY@0630 tizanidine 4 mg PO Q8H PRN triamcinolone acetonide 0.1% 1 appl topical BID Tobacco use date assessed: 03/11/24 Dental Screening Dental Screen Date: 03/25/24 HPI HPI Comments History of Present Illness Details Database Marketing Manager [id number] 38 y/o M with CVA with R hemiparesis (20 21) now on Eliquis, hidradenitis suppurativa, opiate dependence in remission, Iron def anemia, Benign-appearing right renal cysts Social: Living at home w/ Mom or Brother; Wheelchair dependent Specialist: [facility] in [place], Neuro [facility] scheduled 05/20/24 pt will need to r/s d/t his surgery Health Maintenance: Tdap reports UTD Flu shot 01/2024 Here today for a Transitional Care Management Visit Discharge summary reviewed: He has had several hospital admissions as well as emergency room visits since her last office visit. The most recent emergency room visit was 04/04/2024. All of these have been reviewed. Admission Date: 03/20/24 Discharge Date: 04/04/24 multiple dates this visit covers all of the visits during this time period Hospital: [facility] Date of interactive contact with Nurse Hernandez: as documented in chart Pending diagnostic tests/treatments: none Pending consults: none DME: no new PT/OT/OFFICE SUPPORT ASSOCIATE: PT Home Health Aide/STONEMASON SUPERVISOR: continued Community Resources: n/a Asst Living: n/a Home Health: [facility], twice per week , active w/ PT, refuses though due to pain Hospice: n/a Support group: n/a Other: n/a Medications reconciled & updated. During todays TCM visit, the d/c summary was reviewed, along with the need for or follow-up on pending diagnostic tests and treatments, as necessary interaction with other health home health care respiratory therapist who will assume or reassume care of the beneficiary?s system-specific problems was done or is being worked on, education was provided to the beneficiary, family, guardian, and/or caregiver, referrals to establish or re-establish and arrange needed community resources we completed, assistance in scheduling required follow-up with community providers and services & finally updated medication list given to patient/caregiver Exam: Awake, Alert, NAD, chronically ill appearing, sitting in wheelchair RRR LS CTAB Right hemiparesis upper and lower ext, R facial droop, slow slurred speech, word finding difficulties PP normal bilat, no edema Patient was informed and verbally consented to the use of an ambient scribe for clinic note documentation during this visit. Patient Instructions INCREASE GABAPENTIN FROM 600 MG 3 TIMES A DAY TO 800 MG 3 TIMES A DAY RECOMMENDED BY INPATIENT PAIN MANAGEMENT CONSULTATION. A PRESCRIPTION WAS PROVIDED FOR OXYCODONE 30 MG Q.6 HOURS PRN. THIS WAS APPROVED BY THE INSURANCE WITH AN EFFECTIVE DATE OF THROUGH 04/30/2024. HE CURRENTLY HAS A BOTTLE WITH A 5 DAY QUANTITY WHICH WILL LAST THROUGH March. I HAVE SENT IN A 7 DAY PRESCRIPTION OF WHICH SHE CAN FILL ON THE March, BUT NO SOONER. PATIENT WAS PROVIDED WITH A COPY OF THE INSURANCE APPROVAL FOR THIS MEDICATION. HE WILL BE HAVING SURGERY ON May AT [facility] AND THEN PLANS TO BE ADMITTED TO A [facility] FACILITY. I HAVE ADVISED FOR HIM TO SCHEDULE AN APPOINTMENT WITH WAY WHEN HE HAS A DISCHARGE DATE FROM THE [facility] FACILITY. I HAVE PROVIDED EXTENSIVE CARE AND COORDINATION AND EDUCATION ABOUT PREVENTING RECURRENT HOSPITAL ADMISSIONS. I UNDERSTAND THAT HE DOES HAVE CHRONIC PAIN AND HE WAS NOT ABLE TO GET HIS MEDICATIONS DUE TO INSURANCE BARRIERS. NOW THAT THIS IS REMEDIED, RECOMMEND TO PHONE ME IF HE HAS ANY PROBLEMS RATHER THAN SEEK CARE IN THE EMERGENCY ROOM. HE AND HIS MOTHER AGREED TO THAT TODAY. THE M.A STAFF HAS PROVIDED A WARM HAND OFF TO NN TO HELP W/ HIS CARE COORDINATION. Total time spent caring for the patient today was 75 minutes. This includes time spent before the visit reviewing the chart, time spent during the visit, and time spent after the visit on documentation [facility] Medical History Hidradenitis Imbalance Neuropathy Anxiety and depression GERD (gastroesophageal reflux disease) Hypertension Abscess and cellulitis of gluteal region CVA (cerebral vascular accident) Opiate abuse, continuous Surgical History No pertinent past surgical history Family History Mother Mental health disorder Asthma Thyroid disease Cervical cancer Maternal Grandmother Mental health disorder Asthma Diabetes Cardiovascular disease Thyroid disease Father Substance abuse Hypertension High cholesterol Cardiovascular disease Clotting disorder Maternal Grandfather Diabetes Cardiovascular disease Paternal Grandfather Clotting disorder Social History (Updated 03/23/24 @ 11:38 by PAOLA Corrales) Household Members: Family Both parents involved: No Caregiver staying overnight: Yes (mom) Housing: Apartment Are you a primary body care manager to a significant other at home: No Do you presently have visiting nurse or other home services: Yes 75 years or older and lives alone: No Alcohol intake: never Patient Tobacco Use Status: Never used Tobacco Cigarettes Per Day: 4 e-Cigarette/Vaping Use: Never Used Second Hand Smoke Exposure: No Substance Use Type: Marijuana Advance Directives Date on File: 02/19/23 service: No Current occupational status: disabled Cognitive needs: No Hearing needs: No Vision needs: No Questionnaire PHQ-9 Over the last 2 weeks, how often have you been bothered by any of the following problems? 1. Little interest or pleasure in doing things: nearly every day 2. Feeling down, depressed, or hopeless: nearly every day 3. Trouble falling or staying asleep, or sleeping too much: more than half the days 4. Feeling tired or having little energy: nearly every day 5. Poor appetite or overeating: nearly every day 6. Feeling bad about yourself - or that you are a failure or have let yourself or your family down: nearly every day 7. Trouble concentrating on things, such as reading the newspaper or watching television: nearly every day 8. Moving or speaking so slowly that other people could have noticed. Or the opposite - being so fidgety or restless that you have been moving around a lot more than usual: nearly every day 9. Thoughts that you would be better off or of hurting yourself in some way: not at all Total score: 23 25449 - PHQ-9 Billing: Yes Source: Developed by Drs. Bismark Gordon, Carmen Hardy, See Case and colleagues, with an educational sandra from [employer]. Thrive Questionnaire Date Thrive assessed: 04/06/24 I am a: Patient What is your living situation today?: I have a steady place to live Within the past 12 months, did the food you bought not last and you didn't have the money to get more?: Never true Within the past 12 months, did you worry whether your food would run out before you got money to buy more?: Never true Do you have trouble paying for medicines?: No Do you have trouble getting transportation to medical appointments?: No Do you have trouble paying your heating and electricity bill?: No Do you have trouble taking care of your child, family member or friend?: No Do you have trouble with day-to-day activities such as bathing, preparing meals, shopping, managing finances, etc.?: Yes Are you currently unemployed and looking for a job?: No Are you interested in more education?: No Please select the resources that you would like help with: Care for elder or disabled and Daily support Currently or been in a relationship where the following occur: No concerns reported THRIVE Score: 0 AUDIT C Alcohol Use Questionnaire (AUDIT-C) 1. How often do you have a drink containing alcohol?: Never 3. How often do you have six or more drinks on one occasion?: Never Total Score: 0 ANNA-7 AMB Questionnaire ANNA-7 Date ANNA - 7 assessed: 04/06/24 Feeling nervous, anxious, or on edge: 1 = Several days Not being able to stop or control worryin = Not at all Worrying too much about different things: 0 = Not at all Trouble relaxin = Several days Being so restless that it is hard to sit still: 0 = Not at all Becoming easily annoyed or irritable: 1 = Several days Feeling afraid as if something awful might happen: 0 = Not at all Total ANNA-7 score (0-4 normal; 5-9 mild; 10-14 moderate; 15-21 severe): 3 Source: Developed by Drs. Bismark Gordon, Carmen Hardy, See Case and colleagues, with an educational sandra from [employer]. ANNA-7 Assessment Billing ANNA-7 Assessment Tool: ANNA-7 Assessment 16918 Physical exam (Primary Care) Vital Signs: Last Vital Signs Pulse 94 04/06/24 11:37 Resp 14 04/06/24 11:37 BP 122/72 04/06/24 11:37 Pulse Ox 96 04/06/24 11:37 Oxygen Delivery Method Room Air 04/06/24 11:37 Tobacco/Smoking Status: Tobacco use Status Tobacco use date assessed 03/11/24 04/06/24 11:35 Patient Tobacco Use Status Never used Tobacco 04/06/24 11:35 e-Cigarette/Vaping Use Never Used 04/06/24 11:35 PHQ-9: PHQ-9 Score PHQ-9: Total score 23 04/06/24 12:10 Thrive Assessment: Date of Thrive Assessment Date Thrive assessed 04/06/24 04/06/24 11:35 Currently or been in a relationship where the following occur: No concerns reported Coding Level of Care Code TCM High MDM <= 7 Days Complex EM visit Add On G2211 Diagnoses Hospital discharge follow-up Z09 Suppurative hidradenitis L73.2 Chronic pain syndrome G89.4 Chronic pain type: chronic pain syndrome Additional Codes ANNA-7 Assessment Billing - ANNA-7 Assessment Tool: ANNA-7 Assessment [id number] ([id number]) PHQ-9 - 74234 - PHQ-9 Billing: Yes ([id number]) Assessment & Plan Assessment & Plan (1) Hospital discharge follow-up: Code(s): Z09 - Encounter for follow-up examination after completed treatment for conditions other than malignant neoplasm Category: Medical (2) Suppurative hidradenitis: Code(s): L73.2 - Hidradenitis suppurativa Category: Surgical (3) Chronic pain: Code(s): G89.29 - Other chronic pain Category: Medical Qualifiers: Chronic pain type: chronic pain syndrome Qualified Code(s): G89.4 - Chronic pain syndrome Plan . Medications: New pantoprazole 40 mg PO DAILY@0630 90 tabs 2RF gabapentin 800 mg PO TID 90 tabs 2RF Refilled oxycodone 30 mg PO Q6H 7 days PRN 28 tabs 0RF pain
[2024-04-06 11:37] VITALS: BP 122/72; PULSE 94; RESP 14; O2SAT 96
== END 2024-04-06 12:24 | disposition home or self-care (01) ==
PROVIDERS: PCP Nurse Practitioner Family; Visit Provider Nurse Practitioner Family
DX: L73.2 Hidradenitis suppurativa (principal); G89.4 Chronic pain syndrome; Z09 Encounter for follow-up examination after completed treatment for conditions other than malignant neoplasm

== ENCOUNTER → 2024-04-06 10:44 | Outpatient (BNVA) | payer OTHER, SELFPAY | PROVIDERS: PCP Nurse Practitioner Family; Visit Provider Nurse Practitioner Family | DX: Z09 Encounter for follow-up examination after completed treatment for conditions other than malignant neoplasm (principal); L73.2 Hidradenitis suppurativa; G89.4 Chronic pain syndrome | CPT/HCPCS: 96127; 99212 ==

== ENCOUNTER 2024-05-22 09:08 | Outpatient (AMB) | payer OTHER, SELFPAY ==
--- NOTE | 2024-05-22 09:11 | MHC.PC.OV ---
Vital Signs 05/22/24 09:17 Height 6 ft 4 in BMI Reason not done Patient refused/unable BP 132/72 Blood Pressure Location Lt brachial Position Sitting Respiration 13 Pulse 79 Pulse Source Pulse Oximeter Temp 98.8 F Temp Source Oral Pulse Oximetry (%) 100 Oxygen Delivery Method Room Air Intake Visit Reasons: surgery Intake Note: follow up from surgery discharge Director Software Required: No Allergies No Known Allergies Allergy (Verified 05/22/24 09:12) Medication List - Last Reconciled 05/22/24 by AMIE ChildressP-BC acetaminophen 500 mg PO Q4H PRN amoxicillin-pot clavulanate 875-125 mg 1 tab PO Q12H apixaban (Eliquis) 5 mg PO BID ascorbic acid (vitamin C) (Vitamin C) 500 mg PO DAILY baclofen 20 mg PO QID canakinumab (PF) (Ilaris (PF)) 150 mg subcut Q28D cholecalciferol (vitamin D3) (Vitamin D3) 25 mcg PO DAILY clindamycin phosphate 1% 1 appl topical BID PRN cyclobenzaprine 10 mg PO TID PRN docusate sodium 100 mg PO BID doxycycline hyclate 100 mg PO BID duloxetine 30 mg PO DAILY ferrous sulfate 325 mg PO DAILY folic acid 1 mg PO DAILY gabapentin 800 mg PO TID hydroxyurea 500 mg PO DAILY linezolid 600 mg PO BID nystatin 1 appl topical BID-TID oxycodone 30 mg PO Q6H PRN 7 days pantoprazole 40 mg PO DAILY@0630 tizanidine 4 mg PO Q8H PRN triamcinolone acetonide 0.1% 1 appl topical BID Tobacco use date assessed: 03/11/24 Dental Screening Dental Screen Date: 03/25/24 HPI HPI Comments History of Present Illness Details 38 y/o M with CVA with R hemiparesis (2020) now on Eliquis, hidradenitis suppurativa, opiate dependence, Iron def anemia, Benign-appearing right renal cysts, ANNA, GERD, current smoker, marijuana use Social: Living at home w/ Mom and Brother; Wheelchair dependent Specialist: [facility] in [facility] Health Maintenance: Tdap reports UTD Flu shot 01/2024 Here today for a Transitional Care Management Visit Discharge summary reviewed. s/p debridement of subq tissue including epidermis and dermis, 20 square cm or less. I did not have any discharge paperwork at the time of the visit. This has been requested several times. Admission Date: 05/15/24 Discharge Date: 05/19/24 Hospital: [facility] Date of interactive contact with Nurse Hernandez: as documented in chart Pending diagnostic tests/treatments: None Pending consults: Wound care DME: Dressing supplies PT/OT/[employer] CONTACT REPRESENTATIVE: [facility] Referrals: Wound care and was Center Medications reconciled & updated. During todays TCM visit, the d/c summary was reviewed, along with the need for or follow-up on pending diagnostic tests and treatments, as necessary interaction with other health career development engineer who will assume or reassume care of the beneficiary?s system-specific problems was done or is being worked on, education was provided to the beneficiary, family, guardian, and/or caregiver, referrals to establish or re-establish and arrange needed community resources we completed, assistance in scheduling required follow-up with community providers and services & finally updated medication list given to patient/caregiver The patient is a 38-year-old male presenting with transitional care management needs following a recent hospitalization for surgical debridement of large HS wounds on the buttocks. The patient was admitted to the hospital on May 15 and discharged on May 19 after undergoing a single surgical procedure. Currently, the patient reports difficulty with movement, specifically transitioning from side to side, due to pain primarily located in the buttocks region. He is prescribed 30 mg of oxycodone four times daily. Post-discharge, he has been prescribed, however is not sure what antibiotics he should be taking her which ones he is taking. The patient notes ongoing issues with managing depressive symptoms, exacerbated by chronic pain. Additionally, there was a recent observation of a low-grade fever of 99 observed last night by the VNA; he does have periods of decrease in appetite with an occasional intake of protein shakes. The patient has been maintained on Apixaban (Eliquis) without notable bleeding complications since returning home. Several attempts to receive the discharge summary as of 1899 were unsuccessful. I did call the [facility] on-call plastic surgeon. She called me back immediately and confirmed medications include Augmentin 875 mg and doxycycline 100 mg, both to be taken every 12 hours. There were no changes made to the patient's oxycodone regimen, as he was observed to use less Dilaudid WEATHERSEAL TECHNICIAN during inpatient care I did let her know that The patient lives an hour away from our facility; thus, local follow-up care has been arranged. However he will continue his care for office visits at [facility] with Dermatology and Plastic surgery. A new referral was placed to [facility]'s wound care center. The MD was made aware directly of this case. He will be seen on Saturday at 10:45. He has enough dressing supplies on hand. VNA & the family are able to tend to his dressings at this time. There is significant caregiver role strain. The patient does have frequent episodes lashing out and yelling due to pain and frustration. I will increase his Cymbalta from 30 mg daily to 30 mg twice per day. Otherwise no medication changes we will be done. I have asked for the family to go home and check the medication bottles and to be sure that they do have the correct antibiotics on hand and to tell me how much they have. Advised for them to call the on-call provider should they not have enough to cover him during the weekend. I did consult with [facility]'s pain management regarding his pain. There are not a whole lot of options on an outpatient setting giving the high dose of oxycodone and he is currently already taking. Given this I did place a call to [facility] to see about his placement in their program for those affected with traumatic brain injuries. They state that requirement is a 60 day admission to a short-term rehab center and at that time he will become eligible for the waiver. I did explain this to Abdi, he explained this to his mother and the patient. All are agreeable for admission to a short-term rehab Center for Wound Care, pain management and chronic disease management with a goal of having him signed onto the waiver program offered by [facility]. At this time which is 1904 on a Saturday night, there is no case management available. The patient was safe to remain home over the weekend. I will follow up with case management directly on Saturday. If I am unable to directly admit him, we will send him to the emergency room for SNF placement. - Continue Augmentin 875 mg and doxycycline 100 mg every 12 hours for bacterial infection post-surgery as directed by dermatology. - Monitor pain management closely; continue current oxycodone regimen with an aim to taper as pain allows. Pill count down today #18. Narcotic contract signed. - Coordinate care with the local wound center for wound management. - Consider potential admission to senior living facility for comprehensive pain management and wound care as needed. - Consult with [facility]'s [facility]ound [facility] for integrated wound care. - Engage in pain management consultation to assess and adjust current analgesic approach. - Increase Duloxetine dosage from 30 mg once daily to 30 mg twice daily for depressive symptoms and possible adjunctive pain management benefit. - Obtain a prescription for required dressing supplies and diapers. - Explore eligibility for home support services via [employer] for additional in-home care. Patient was informed and verbally consented to the use of an ambient scribe for clinic note documentation during this visit Exam: Awake, Alert, NAD, chronically ill appearing, sitting in wheelchair RRR LS CTAB Right hemiparesis upper and lower ext, R facial droop, slow slurred speech, word finding difficulties PP normal bilat, no edema Flat affect, withdrawn, irritated Skin of buttocks as below This note is constructed using voice recognition software. While every effort has been made to ensure accuracy in milanese knitting machine operator, still errors may have been included Sometimes, these errors may affect the content or meaning of the given sentence . Total time spent caring for the patient today was 120 minutes. This includes time spent before the visit reviewing the chart, time spent during the visit, and time spent after the visit on documentation [facility] Medical History Hidradenitis Imbalance Neuropathy Anxiety and depression GERD (gastroesophageal reflux disease) Hypertension Abscess and cellulitis of gluteal region CVA (cerebral vascular accident) Opiate abuse, continuous Surgical History No pertinent past surgical history Family History Mother Mental health disorder Asthma Thyroid disease Cervical cancer Maternal Grandmother Mental health disorder Asthma Diabetes Cardiovascular disease Thyroid disease Father Substance abuse Hypertension High cholesterol Cardiovascular disease Clotting disorder Maternal Grandfather Diabetes Cardiovascular disease Paternal Grandfather Clotting disorder Social History (Updated 03/23/24 @ 11:38 by PAOLA Corrales) Household Members: Family Housing: Apartment Are you a primary healthcare administrator to a significant other at home: No Do you presently have visiting nurse or other home services: Yes Alcohol intake: never Patient Tobacco Use Status: Never used Tobacco Cigarettes Per Day: 4 e-Cigarette/Vaping Use: Never Used Second Hand Smoke Exposure: No Substance Use Type: Marijuana Advance Directives Date on File: 02/19/23 service: No Current occupational status: disabled Cognitive needs: No Hearing needs: No Vision needs: No Questionnaire PHQ-9 Over the last 2 weeks, how often have you been bothered by any of the following problems? 76257 - PHQ-9 Billing: Patient declined-do not bill Source: Developed by Drs. Bismark Gordon, Carmen Hardy, See Case and colleagues, with an educational sandra from [employer]. Thrive Questionnaire Date Thrive assessed: 05/22/24 I am a: Patient What is your living situation today?: I have a steady place to live Within the past 12 months, did the food you bought not last and you didn't have the money to get more?: Never true Within the past 12 months, did you worry whether your food would run out before you got money to buy more?: Never true Do you have trouble paying for medicines?: No Do you have trouble getting transportation to medical appointments?: No Do you have trouble paying your heating and electricity bill?: No Do you have trouble taking care of your child, family member or friend?: No Do you have trouble with day-to-day activities such as bathing, preparing meals, shopping, managing finances, etc.?: Yes Are you currently unemployed and looking for a job?: No Are you interested in more education?: No Currently or been in a relationship where the following occur: No concerns reported THRIVE Score: 0 ANNA-7 AMB Questionnaire ANNA-7 Date ANNA - 7 assessed: 04/06/24 Source: Developed by Drs. Bismark Gordon, Carmen Hardy, See [employer] and colleagues, with an educational sandra from [employer]. Physical exam (Primary Care) Vital Signs: Last Vital Signs Temp 98.8 F 05/22/24 09:17 Pulse 79 05/22/24 09:17 Resp 13 05/22/24 09:17 BP 132/72 05/22/24 09:17 Pulse Ox 100 05/22/24 09:17 Oxygen Delivery Method Room Air 05/22/24 09:17 Tobacco/Smoking Status: Tobacco use Status Tobacco use date assessed 03/11/24 05/22/24 09:15 Patient Tobacco Use Status Never used Tobacco 05/22/24 09:15 e-Cigarette/Vaping Use Never Used 05/22/24 09:15 Thrive Assessment: Date of Thrive Assessment Date Thrive assessed 05/22/24 05/22/24 09:15 Currently or been in a relationship where the following occur: No concerns reported Coding Level of Care Code TCM High MDM <= 7 Days Diagnoses Hospital discharge follow-up Z09 Suppurative hidradenitis L73.2 Surgical wound present T14.8XXA Mild episode of recurrent major depressive disorder F33.0 Major depression episode severity: mild ANNA (generalized anxiety disorder) F41.1 Right hemiparesis G81.91 Cerebrovascular accident (CVA) due to occlusion of left carotid artery I63.232 CVA mechanism: occlusion Precerebral and cerebral artery: carotid artery Laterality of affected vessel: left Uncomplicated opioid dependence F11.20 Substance use status: uncomplicated CPT Codes [facility] OUTPT/OFFICE VIS - G2212 Assessment & Plan Assessment & Plan (1) Hospital discharge follow-up: Code(s): Z09 - Encounter for follow-up examination after completed treatment for conditions other than malignant neoplasm Category: Medical (2) Suppurative hidradenitis: Code(s): L73.2 - Hidradenitis suppurativa Category: Surgical (3) Surgical wound present: Code(s): T14.8XXA - Other injury of unspecified body region, initial encounter Category: Medical (4) MDD (major depressive disorder), recurrent episode: Code(s): F33.9 - Major depressive disorder, recurrent, unspecified Category: Medical Qualifiers: Major depression episode severity: mild Qualified Code(s): F33.0 - Major depressive disorder, recurrent, mild (5) ANNA (generalized anxiety disorder): Code(s): F41.1 - Generalized anxiety disorder Category: Medical (6) Right hemiparesis: Comment: s/p CVA affecting right upper and lower ext Code(s): G81.91 - Hemiplegia, unspecified affecting right dominant side Category: Medical (7) CVA (cerebral vascular accident): Comment: 2020 dense hemiparesis on the right side, CTA of the head and neck showed blockage from upper end of left ICA all the way to left MCA and KRISTAL origin no blood flow on the left side patient started on tPA transferred to at [facility] neurointerventional Code(s): I63.9 - Cerebral infarction, unspecified Category: Medical Qualifiers: CVA mechanism: occlusion Precerebral and cerebral artery: carotid artery Laterality of affected vessel: left Qualified Code(s): I63.232 - Cerebral infarction due to unspecified occlusion or stenosis of left carotid arteries (8) Opiate dependence: Code(s): F11.20 - Opioid dependence, uncomplicated Category: Medical Qualifiers: Substance use status: uncomplicated Qualified Code(s): F11.20 - Opioid dependence, uncomplicated Plan . Orders: Referrals Wound Care Referral L73.2 - Hidradenitis suppurativa, T14.8XXA - Other injury of unspecified body region, initial encounter Medications: New ascorbic acid (vitamin C) (Vitamin C) 500 mg PO DAILY 90 tabs 2RF folic acid 1 mg PO DAILY 90 tabs 2RF Changed From duloxetine 30 mg PO DAILY 90 caps 2RF To duloxetine 30 mg PO BID 180 caps 2RF
[2024-05-22 09:17] VITALS: BP 132/72; PULSE 79; RESP 13; TEMP 37.1; O2SAT 100
== END 2024-05-22 10:02 | disposition home or self-care (01) ==
PROVIDERS: PCP Nurse Practitioner Family; Visit Provider Nurse Practitioner Family
DX: G81.91 Hemiplegia, unspecified affecting right dominant side (principal); F33.0 Major depressive disorder, recurrent, mild; I63.232 Cerebral infarction due to unspecified occlusion or stenosis of left carotid arteries; F11.20 Opioid dependence, uncomplicated; Z09 Encounter for follow-up examination after completed treatment for conditions other than malignant neoplasm; L73.2 Hidradenitis suppurativa; T14.8XXA Other injury of unspecified body region, initial encounter; F41.1 Generalized anxiety disorder

== ENCOUNTER → 2024-05-22 09:08 | Outpatient (BNVA) | payer OTHER, SELFPAY | PROVIDERS: PCP Nurse Practitioner Family; Visit Provider Nurse Practitioner Family | DX: Z09 Encounter for follow-up examination after completed treatment for conditions other than malignant neoplasm (principal); L73.2 Hidradenitis suppurativa; T14.8XXD Other injury of unspecified body region, subsequent encounter; F33.0 Major depressive disorder, recurrent, mild; F41.1 Generalized anxiety disorder; G81.91 Hemiplegia, unspecified affecting right dominant side; I63.232 Cerebral infarction due to unspecified occlusion or stenosis of left carotid arteries; F11.20 Opioid dependence, uncomplicated | CPT/HCPCS: 99496 ==

== ENCOUNTER 2024-05-25 11:47 | Emergency (ER) | payer OTHER, SELFPAY ==
[2024-05-25 12:53] VITALS: BP 164/90; PULSE 92; O2SAT 98
--- NOTE | 2024-05-25 13:18 | ED_ITS ---
HPI - Weakness General Chief complaint: General Medical Stated complaint: R SIDE ?PAIN (UNREADABLE CMED) PER EMS Time Seen by Provider: 05/25/24 12:54 Source: patient, family, EMS and old records reviewed Mode of arrival: EMS Limitations: no limitations History of Present Illness ED Provider: NIRMAL HPI Narrative: 38 yo male with PMH of stroke R sided hemiparesis on eliquis, hidradenitis suppuritiva s/p excision of both buttocks at [facility] on 05/15 here after being unable to care for his post surgery wounds at home. Family cannot care for him right now. VNA is coming and happy with the wounds but PCP sent him here for rehab placement. No new signs of infection. Last week highest temp was 99.6. completed augmentin and doxy both patient and brother state he is no longer on antibiotics MD Complaint: lack of energy Onset (ago): week(s) Duration: intermittent Location: generalized Migration: none Severity: mild Relieving factors: none Exacerbating factors: none Context: recent illness and recent surgery Associated symptoms: denies other symptoms Related Data Home Medications ?Medication ?Instructions ?Recorded ?Confirmed acetaminophen 500 mg tablet 500 mg PO Q4H PRN Pain 02/17/23 05/22/24 baclofen 20 mg tablet 20 mg PO QID 02/17/23 05/22/24 canakinumab (PF) 150 mg/mL 150 mg subcut Q28D 02/17/23 05/22/24 subcutaneous solution (Ilaris (PF)) clindamycin phosphate 1 % topical 1 appl topical BID PRN flared 02/17/23 05/22/24 gel lesion prophylaxis hydroxyurea 500 mg capsule 500 mg PO DAILY 03/18/24 05/22/24 tizanidine 2 mg tablet 4 mg PO Q8H PRN muscle spasm 03/18/24 05/22/24 triamcinolone acetonide 0.1 % 1 appl topical BID 03/18/24 05/22/24 topical cream amoxicillin 875 mg-potassium 1 tab PO Q12H 05/22/24 05/22/24 clavulanate 125 mg tablet linezolid 600 mg tablet 600 mg PO BID 05/22/24 05/22/24 nystatin 100,000 unit/gram topical 1 appl topical BID-TID 05/22/24 05/22/24 powder Previous Rx's ?Medication ?Instructions ?Recorded doxycycline hyclate 100 mg tablet 100 mg PO BID #28 tabs 03/10/24 apixaban 5 mg tablet (Eliquis) 5 mg PO BID #60 tabs 03/25/24 docusate sodium 100 mg capsule 100 mg PO BID #180 caps 03/25/24 cyclobenzaprine 10 mg tablet 10 mg PO TID PRN muscle spasm #15 03/26/24 tabs gabapentin 800 mg tablet 800 mg PO TID #90 tabs 04/06/24 pantoprazole 40 mg tablet,delayed 40 mg PO DAILY@0630 #90 tabs 04/06/24 release cholecalciferol (vitamin D3) 25 25 mcg PO DAILY #90 tabs 04/29/24 mcg (1,000 unit) tablet (Vitamin D3) ferrous sulfate 325 mg (65 mg 325 mg PO DAILY #90 tabs 04/29/24 iron) tablet oxycodone 30 mg tablet 30 mg PO Q6H PRN pain 7 days #28 05/05/24 tabs ascorbic acid (vitamin C) 500 mg 500 mg PO DAILY #90 tabs 05/22/24 tablet (Vitamin C) duloxetine 30 mg capsule,delayed 30 mg PO BID #180 caps 05/22/24 release folic acid 1 mg tablet 1 mg PO DAILY #90 tabs 05/22/24 Allergies Allergy/AdvReac Type Severity Reaction Status Date / Time No Known Allergies Allergy Verified 05/25/24 13:24 Review of Systems 2 Review of Systems: Constitutional : No Fever, No Chills, No Fatigue ENT/Mouth : No sore throat, No Rhinorrhea Eyes: No Eye Pain, No Swelling, No Redness Cardiovascular : No Chest Pain, No SOB, No Dyspnea on Exertion Respiratory : No Cough, No Sputum Gastrointestinal : No Nausea, No Vomiting, No Diarrhea, No abdominal Pain Genitourinary : No Dysuria, No Urinary Frequency, No Hematuria, Musculoskeletal : No joint pain, No Myalgias, No Joint Swelling Skin : No Skin Lesions, No rash, pos skin wound Neuro : No Weakness, No Numbness, No Dizziness, no Headache Psych : No Anxiety/Panic, No Depression All other systems reviewed and are negative PMFSH Past Medical History Attestation statement: The following information was validated with the patient. Source: old records reviewed Medical History Hidradenitis suppurativa Hidradenitis Imbalance Neuropathy Anxiety and depression GERD (gastroesophageal reflux disease) Hypertension CVA (cerebral vascular accident) Opiate abuse, continuous Surgical History No pertinent past surgical history Family History Family History Mother Mental health disorder Asthma Thyroid disease Cervical cancer Maternal Grandmother Mental health disorder Asthma Diabetes Cardiovascular disease Thyroid disease Father Substance abuse Hypertension High cholesterol Cardiovascular disease Clotting disorder Maternal Grandfather Diabetes Cardiovascular disease Paternal Grandfather Clotting disorder Social History Social History Household Members: Family Housing: Apartment Are you a primary health care aide to a significant other at home: No Do you presently have visiting nurse or other home services: Yes Alcohol intake: never Patient Tobacco Use Status: Never used Tobacco Cigarettes Per Day: 4 Smoked in Last 30 Days: Yes e-Cigarette/Vaping Use: Never Used Second Hand Smoke Exposure: No Use of substances other than those prescribed or required for medical reasons: Yes Substance Use Type: Marijuana Advance Directives: Yes Advance Directives on File: Yes Advance Directives Date on File: 02/19/23 service: No Current occupational status: disabled Cognitive needs: No Hearing needs: No Vision needs: No Physical Exam 2 Vital Signs: Vital Signs: Last Vital Signs Temp 98.5 F 05/25/24 13:22 Pulse 69 05/25/24 13:22 Resp 16 05/25/24 14:09 BP 106/62 05/25/24 13:22 Pulse Ox 97 05/25/24 13:22 O2 Del Method Room Air 05/25/24 13:22 BMI result Body Mass Index 27.9 Appearance: Alert. Oriented X3. No acute distress. Eyes: Pupils equal, round and reactive to light. ENT: Pharynx normal. Neck: Normal inspection. Neck supple. CVS: Normal heart rate and rhythm. Pulses normal. Respiratory: No respiratory distress. Breath sounds normal. Abdomen: Soft and nontender. Buttock: R buttock clean open surgical wound no signs of infection at this time margins are well healing, packed Skin: Skin warm and dry. Normal skin color. Normal skin turgor. Extremities: No lower extremity edema. No calf ttp Neuro: Oriented X 3. R sided hemiparesis No sensory deficit. CN2-12 intact Medical Decision Making Medical Decision Making MDM Narrative: 38 yo male with PMH of stroke R sided hemiparesis on eliquis, hidradenitis suppuritiva s/p excision of both buttocks at [facility] on 05/15 now here asking for rehab as they cannot manage his wounds at home - has VNA but it is not enough. Differential Diagnosis Differential Diagnoses: The differential diagnosis associated with the presentation includes surgical wound Admission/Observation Consideration of admission/observation: Escalation of care including admission/observation considered physician observation started at 2pm pending case management Consult Healthcare Provider Management of the patient was discussed with: Publicity Consultant Lab Data [facility] Lab Attestation statement: I reviewed the patient's lab results. 05/25/24 14:24 05/25/24 14:24 Labs: Lab Results 05/25/24 Range/Units 14:24 WBC 6.6 (4.8-10.8) X10*3/uL RBC 3.67 L (4.60-5.80) X10*6/uL Hgb 9.6 L (14.0-18.0) g/dl Hct 30.1 L (42.0-52.0) % MCV 82.0 (80.0-98.0) fL MCH 26.2 L (27.0-33.0) pg MCHC 31.9 (31.0-36.0) g/dl RDW 17.0 H (11.0-16.0) % Plt Count 504 H (160-400) X10*3/uL MPV 8.5 L (9.4-12.4) fL Immature Gran % (Auto) 0.3 (0.0-0.4) % Neut % (Auto) 60.8 (45-73) % Lymph % (Auto) 28.1 (20-40) % [place] % (Auto) 8.1 (2-11) % Eos % (Auto) 2.1 (0-4) % Baso % (Auto) 0.6 (0-2) % Lymph # (Auto) 1.9 (1.2-4.9) X10*3/uL [place] # (Auto) 0.5 (0.1-1.2) X10*3/uL Eos # (Auto) 0.1 (0.0-0.4) X10*3/uL Baso # (Auto) 0.0 (0.0-0.2) X10*3/uL Abs Immat Gran (auto) 0.02 (0.00-0.03) X10*3/uL Absolute Neuts (auto) 4.0 (2.0-8.3) x10*3/uL Absolute Nucleated RBC 0.000 (0.0-0.012) X10*3/uL Nucleated RBC % (auto) 0.0 (0.0-0.2) /100WBC Independent Historian Clinical information obtained from an independent historian. History obtained from or confirmed by: EMS and Other (brother) External Record Review External record reviewed: Outpatient record Discharge Plan Discharge Clinical Impression: Surgical wound present Patient Disposition: Still a Patient Prescriptions: No Action cholecalciferol (vitamin D3) [Vitamin D3] 25 mcg (1,000 unit) tablet 25 mcg PO DAILY Qty: 90 0RF ferrous sulfate 325 mg (65 mg iron) tablet 325 mg PO DAILY Qty: 90 0RF oxycodone 30 mg tablet 30 mg PO Q6H PRN (Reason: pain) 7 Days Qty: 28 0RF hydroxyurea 500 mg capsule 500 mg PO DAILY triamcinolone acetonide 0.1 % cream 1 appl topical BID tizanidine 2 mg tablet 4 mg PO Q8H PRN (Reason: muscle spasm) clindamycin phosphate 1 % gel 1 appl topical BID PRN (Reason: flared lesion prophylaxis) Ilaris (PF) 150 mg/mL solution 150 mg subcut Q28D baclofen 20 mg tablet 20 mg PO QID acetaminophen 500 mg Tablet 500 mg PO Q4H PRN (Reason: Pain) doxycycline hyclate 100 mg tablet 100 mg PO BID Qty: 28 0RF cyclobenzaprine 10 mg tablet 10 mg PO TID PRN (Reason: muscle spasm) Qty: 15 0RF gabapentin 800 mg tablet 800 mg PO TID Qty: 90 2RF pantoprazole 40 mg tablet,delayed release (DR/EC) 40 mg PO DAILY@0630 Qty: 90 2RF Eliquis 5 mg tablet 5 mg PO BID Qty: 60 3RF docusate sodium 100 mg capsule 100 mg PO BID Qty: 180 2RF linezolid 600 mg tablet 600 mg PO BID nystatin 100,000 unit/gram powder 1 appl topical BID-TID amoxicillin-pot clavulanate 875-125 mg tablet 1 tab PO Q12H ascorbic acid (vitamin C) [Vitamin C] 500 mg tablet 500 mg PO DAILY Qty: 90 2RF folic acid 1 mg tablet 1 mg PO DAILY Qty: 90 2RF duloxetine 30 mg capsule,delayed release(DR/EC) 30 mg PO BID Qty: 180 2RF Print Language: Gibraltarian
[2024-05-25 13:22] VITALS: BP 106/62; PULSE 69; RESP 16; TEMP 36.9; O2SAT 97; BMI 27.9
[2024-05-25 14:09] VITALS: RESP 16
[2024-05-25 14:29] LABS: MANUAL DIFF FLAG NO
[2024-05-25 14:30] LABS: Basophils Percent Auto 0.6 % (0-2); Eosinophils Absolute Auto 0.1 X10*3/uL (0.0-0.4); Eosinophils Percent Auto 2.1 % (0-4); Hematocrit 30.1 % (42.0-52.0); Hemoglobin 9.6 g/dl (14.0-18.0); Imm Gran Abs Auto 0.02 X10*3/uL (0.00-0.03); Imm Gran Pct Auto 0.3 % (0.0-0.4); Lymphocytes Absolute Auto 1.9 X10*3/uL (1.2-4.9); Lymphocytes Percent Auto 28.1 % (20-40); Mean Corpuscular HGB Conc 31.9 g/dl (31.0-36.0); Mean Corpuscular Hemoglobin 26.2 pg (27.0-33.0); Mean Platelet Volume 8.5 fL (9.4-12.4); Monocytes Absolute Auto 0.5 X10*3/uL (0.1-1.2); Monocytes Percent Auto 8.1 % (2-11); Neutrophils Percent Auto 60.8 % (45-73); Platelet Count 504 X10*3/uL (160-400); Red Blood Count 3.67 X10*6/uL (4.60-5.80); White Blood Count 6.6 X10*3/uL (4.8-10.8)
[2024-05-25 14:45] LABS: Alanine Aminotransferase 10 U/L (0-40); Albumin Level 3.1 g/dL (3.5-5.0); Alkaline Phosphatase 120 U/L (39-117); Anion Gap 10 (12-20); Aspartate Amino Transferase 21 U/L (5-37); Bilirubin Direct < 0.2 mg/dL (0.0-0.5); Bilirubin Total 0.1 mg/dL (0.0-1.0); Blood Urea Nitrogen 21 mg/dL (9-16); Calcium 8.5 mg/dL (8.4-10.2); Carbon Dioxide 30 mmol/L (22-29); Chloride 105 mmol/L (96-108); Creatinine Clr Calc Pharmacy 163.3; Estimated Glomerular Filt Rate > 60; Glucose Random 85 mg/dL (60-115); Magnesium 2.1 mg/dL (1.6-2.6); Potassium 4.5 mmol/L (3.3-5.1); Sodium 140 mmol/L (135-145); Total Protein 6.8 g/dL (6.5-8.0)
[2024-05-25 14:59] VITALS: BP 104/64; PULSE 56; RESP 16; TEMP 36.8; O2SAT 98
--- NOTE | 2024-05-25 15:11 | MHC.CM.ED ---
Received consult from Dr Fields. Patient came to the ER at the recommendation of his PCP, Kisha Solano. Patient has a pretty significant buttock wound that mother and brother are having difficulty managing. Patient is active with [facility]. Patient's wounds are being management by Dr Cynthia Goss in [place]. Work up is still pending. If admission is not needed, will attempt to find STR placement. Continue to monitor for d/c needs.
[2024-05-25 15:34] LABS: COVID-19 Test Negative (Negative); IDNOW Serial# 6674DD1D
[2024-05-25 18:17] VITALS: BP 104/63; PULSE 54; RESP 16; TEMP 36.7; O2SAT 98
[2024-05-25] MEDS: oxyCODONE HCl Immed Release 15 MG TABLET 30 MG PO ×2 (18:51→23:44)
[2024-05-25 19:59] VITALS: RESP 16
[2024-05-25] MEDS: Linezolid 600 MG TABLET PO (21:00)
[2024-05-25] MEDS: Apixaban 5 MG TABLET PO (21:00)
[2024-05-25] MEDS: Baclofen 20 MG TABLET PO (21:00)
[2024-05-25] MEDS: DULoxetine HCl 30 MG CAPSULE.DR PO (21:00)
[2024-05-25] MEDS: Nystatin Powder 15 GM BOTTLE 1 APPL TOPICAL (21:00)
[2024-05-25] MEDS: Docusate Sodium 100 MG CAPSULE PO (21:00)
--- NOTE | 2024-05-25 21:00 | PC.NURSE ---
wet to dry dressing for dressing change per dr. scott
[2024-05-25] MEDS: Gabapentin 400 MG CAPSULE 800 MG PO (21:11)
--- NOTE | 2024-05-25 23:50 | PC.NURSE ---
Took over care from DIANNA Garcia at 23:00, wound soaking in order to change dressing. pt medicated for pain management.
--- NOTE | 2024-05-26 01:30 | PC.NURSE ---
completed dressing changed, wet to dry dressing per report from DIANNA Garcia applied, complete bed change, pt reposition and pillow applied to pressure areas.
--- NOTE | 2024-05-26 03:22 | PC.NURSE ---
pt is sleeping at this time.
--- NOTE | 2024-05-26 04:07 | PC.NURSE ---
assumed care of pt at 0400
[2024-05-26 05:04] VITALS: BP 110/71; PULSE 57; RESP 15; TEMP 36.6; O2SAT 98
--- NOTE | 2024-05-26 07:34 | PC.NURSE ---
Dietary called for breakfast tray.
--- NOTE | 2024-05-26 07:40 | PC.NURSE ---
Pyxis machine out of oxycodone, pharmacy called and made aware to stock because pt needs for pain.
[2024-05-26] MEDS: Docusate Sodium 100 MG CAPSULE PO ×2 (07:46→20:16)
[2024-05-26] MEDS: Gabapentin 400 MG CAPSULE 800 MG PO ×3 (07:46→20:16)
[2024-05-26] MEDS: Pantoprazole Sodium 20 MG TABLET.DR 40 MG PO (07:46)
[2024-05-26] MEDS: DULoxetine HCl 30 MG CAPSULE.DR PO ×2 (07:47→20:16)
[2024-05-26] MEDS: Acetaminophen 325 MG TABLET 975 MG PO (07:47)
[2024-05-26] MEDS: Folic Acid 1 MG TABLET PO (07:47)
[2024-05-26] MEDS: Ascorbic Acid 500 MG TABLET PO (07:47)
[2024-05-26] MEDS: Baclofen 20 MG TABLET PO ×4 (07:48→20:16)
[2024-05-26] MEDS: Apixaban 5 MG TABLET PO ×2 (07:48→20:16)
[2024-05-26] MEDS: oxyCODONE HCl Immed Release 15 MG TABLET 30 MG PO ×3 (08:00→20:16)
[2024-05-26] MEDS: Linezolid 600 MG TABLET PO ×2 (08:01→21:23)
--- NOTE | 2024-05-26 08:19 | MHC.CM.ED ---
Addendum entered by Jenn Salgado 05/26/24 09:53: [facility] not able to offer a bed. Addendum entered by Jenn Salgado 05/26/24 09:38: Attempting to obtain copy of office notes from Dr Gill. Also trying to obtain copy of [facility] record from 05/15. Patient is active with [facility]. Copy of home med list provided. Wound Consult ordered and pending in ER. Original Note: Patient remains in ER. PT and OT evals are pending. [facility] are reviewing. [facility] is unable to offer a bed. Continue to monitor for d/c needs.
--- NOTE | 2024-05-26 08:33 | PC.NURSE ---
Pt given breakfast tray.
--- NOTE | 2024-05-26 09:27 | PC.NURSE ---
Pt asleep on bed, respirations equal/unlabored. Appears comfortable.
--- NOTE | 2024-05-26 09:49 | PHA.MEDREC ---
Pharmacy Consult ? Medication Reconciliation Pharmacy has reviewed the medication reconciliation done by nursing. Spoke to patients mother to confirm med list. Mother states Ilaris 150 is every 28 days, last dose was 05/01/24 and next dose is 06/01/24.
[2024-05-26] MEDS: Hydroxyurea 500 MG CAPSULE PO (09:53)
--- NOTE | 2024-05-26 09:55 | PHA.MEDREC ---
Addendum entered by Roberta Keller lyric 05/26/24 10:27: Med rec reviewed by pharmacist. Confirmed with patients brother that Linezolid was stopped before surgery and not currently on an antibiotic. Amlodipine was discontinued and patient is not taking this. Baclofen and hydroxyurea have not been refilled in a long time but both brother and mother have confirmed that patient is supposed to be taking these and has this at home. Original Note: Pharmacy Consult ? Medication Reconciliation Pharmacy has completed the medication reconciliation. Patient had a med list in his chart. Spoke to patients mother to confirm med list. Mother states Ilaris 150 is every 28 days, last dose was 05/01/24 and next dose is 06/01/24.
[2024-05-26 12:12] VITALS: BP 120/66; PULSE 63; RESP 20; TEMP 36.8; O2SAT 97
--- NOTE | 2024-05-26 12:14 | PC.NURSE ---
patient brought to overflow unit, room 6. patient is awake and alert, oriented x3. patient states he is mainly bed bound due to stroke with right sided deficit. patient linens clean and dry. patient vitaled by this RN upon arrival, VSS. resp even and unlabored. patient watching tv
--- NOTE | 2024-05-26 12:52 | MHC.CM.ED ---
Met with patient, mother Olivia, and father David in regards to discharge planning. All are agreeable that STR is needed for wound care. All are aware placement may be difficult due to wound needs. Continue to monitor for d/c needs.
--- NOTE | 2024-05-26 14:15 | PC.NURSE ---
patient medicated per JUL, requested prn oxycodone despite pain level being 10/10. patient wanted the oxycodone. patient is resting quietly in room watching tv, alert and oriented x3. resp even and unlabored, no acute signs of distress. patient takes meds whole with water
--- NOTE | 2024-05-26 18:16 | PC.NURSE ---
patient sat up in bed and ate dinner. resp even and unlabored, patient medicated per MAR. no signs of acute distress
[2024-05-26 18:22] VITALS: BP 126/59; PULSE 56; RESP 18; TEMP 36.1; O2SAT 99
--- NOTE | 2024-05-26 19:26 | PC.NURSE ---
This RN assumed pt care @ 1900. Pt a&ox4, no signs of distress. Pts mother at bedside. Plan of care ongoing.
--- NOTE | 2024-05-26 20:20 | PC.NURSE ---
Pt reporting 10/10 pain and requesting meds. Pt medicated per jul. Linezolid not in Pyxis. This RN spoke with Robert @ pharm to request med. Plan of care ongoing.
--- NOTE | 2024-05-26 21:47 | PC.NURSE ---
Pt requested and urinal emptied. Plan of care ongoing.
[2024-05-27] MEDS: oxyCODONE HCl Immed Release 15 MG TABLET 30 MG PO ×4 (02:16→21:39)
--- NOTE | 2024-05-27 02:16 | PC.NURSE ---
Pt yelling out for his meds. Pt reports 02/19 pain. Pt medicated per jul. Plan of care ongoing.
--- NOTE | 2024-05-27 02:20 | PC.NURSE ---
Pt requested and urinal emptied. Plan of care ongoing.
[2024-05-27 06:20] VITALS: BP 119/71; PULSE 59; RESP 18; TEMP 36.9
[2024-05-27] MEDS: Pantoprazole Sodium 20 MG TABLET.DR 40 MG PO (06:22)
--- NOTE | 2024-05-27 06:25 | PC.NURSE ---
Pt medicated per [facility] Plan of care ongoing.
[2024-05-27] MEDS: Ferrous Sulfate 324 MG TABLET.DR PO (09:09)
[2024-05-27] MEDS: Docusate Sodium 100 MG CAPSULE PO ×2 (09:09→20:51)
[2024-05-27] MEDS: Cholecalciferol (Vitamin D3) 25 MCG TABLET PO (09:09)
[2024-05-27] MEDS: Apixaban 5 MG TABLET PO ×2 (09:09→20:51)
[2024-05-27] MEDS: Multivitamin TABLET 1 TAB PO (09:10)
[2024-05-27] MEDS: DULoxetine HCl 30 MG CAPSULE.DR PO ×2 (09:10→20:51)
[2024-05-27] MEDS: Gabapentin 400 MG CAPSULE 800 MG PO ×3 (09:10→20:51)
[2024-05-27] MEDS: Baclofen 20 MG TABLET PO ×4 (09:10→20:51)
--- NOTE | 2024-05-27 09:57 | PC.NURSE ---
waiting for pharmacy to bring the rest of the pt's medications
[2024-05-27] MEDS: Hydroxyurea 500 MG CAPSULE PO (10:21)
[2024-05-27] MEDS: Ascorbic Acid 500 MG TABLET PO (10:21)
[2024-05-27] MEDS: Linezolid 600 MG TABLET PO ×2 (10:21→20:51)
[2024-05-27] MEDS: Folic Acid 1 MG TABLET PO (10:21)
--- NOTE | 2024-05-27 14:02 | MHC.CM.ED ---
Patient remains in ER overflow. [facility] is unable to offer a bed. [facility] is unable to offer a bed. [facility], [facility] and [facility] are able to offer a bed. Spoke with patient's brother, William, via telephone at [phone] with patient's permission. William accepts bed at [facility]. Facility aware and is in the process of obtaining insurance auth. Continue to monitor for d/c needs.
--- NOTE | 2024-05-27 14:48 | PC.NURSE ---
Assumed care at 11am. Patient needing right buttocks/ thigh wound changed. Sent picture to wound care nurse and ED PA. Wound care nurse evaluated at bedside in ED overflow. Wet to dry dressing applied and barrier cream around edges. See wound care note.
[2024-05-27 14:58] VITALS: BP 137/72; PULSE 63; RESP 16; TEMP 36.9; O2SAT 98
--- NOTE | 2024-05-27 15:47 | HO.WOUND ---
Wound Consult: Initial 38yr old?male admitted to [facility] on 05/25/24 - See progress notes and H&P for detailed history.?Wound consult placed for Right Buttock wound.? Patient agreeable to assessment and photo documentation.? Patient is awaiting placement for wound care treatments - he reports he had surgical treatment of his Hidradenitis Suppurativa in [place]. He suffers from Aphasia at times making communication difficult and frustrating for him at times. He is unclear of the treatment they were doing to the wound bed at home, he reports he did have a VNA nurse to his home 3 days a week to perform dressing changes. Right Buttock Etiology: ?Surgical Debridement site Measurements: 32cm x 22cm x 0.3cm Wound Bed: Full thickness tissue loss, red moist viable tissue noted - scant slough noted Drainage / Odor: no odor sero sang noted on dressing when removed Edges: ? epibole Jesi wound: ?Intact No Induration, Fluctuance or Warmth noted Pain: painful to touch Goals of Treatment: ? Wet to moist dressing to continue moist wound healing - off load pressure Recommendations: 1. Turn and Reposition every 2 hours and as needed for patient comfort.? Use pillows or wedges to support off loading positions. 2. Off Load all bony prominences with use of pillows and heel boots if needed.? Apply Preventative foams where needed. ? 3. Monitor for incontinence and moisture control, use barrier creams when needed for prevention and treatment. 4. Provide adequate and supplemental nutrition.? 5. Order low air loss mattress. 6. When applicable maintain blood glucose levels per Providers order. 7.Right Buttock - Off Load Pressure with Q2hr turns and pillows. Cleanse wound bed with NS, pat dry. Apply barrier cream to wound edge. Apply saline moist gauze to wound bed, cover with dry gauze, ABD pad and secure with tape. Change daily. Re-consult wound care Nurse for wound deterioration or wound changes.
[2024-05-27 22:19] VITALS: BP 130/73; PULSE 58; RESP 18; TEMP 36.9; O2SAT 98
[2024-05-28] MEDS: Melatonin 3 MG TABLET 9 MG PO ×2 (01:32→22:08)
[2024-05-28] MEDS: oxyCODONE HCl Immed Release 15 MG TABLET 30 MG PO ×3 (04:33→16:39)
[2024-05-28 05:45] VITALS: BP 117/71; PULSE 52; RESP 18; TEMP 36.4; O2SAT 97
[2024-05-28] MEDS: Pantoprazole Sodium 20 MG TABLET.DR 40 MG PO (05:45)
[2024-05-28] MEDS: Linezolid 600 MG TABLET PO ×2 (10:26→20:28)
[2024-05-28] MEDS: DULoxetine HCl 30 MG CAPSULE.DR PO ×2 (10:26→20:19)
[2024-05-28] MEDS: Folic Acid 1 MG TABLET PO (10:26)
[2024-05-28] MEDS: Hydroxyurea 500 MG CAPSULE PO (10:26)
[2024-05-28] MEDS: Ascorbic Acid 500 MG TABLET PO (10:26)
[2024-05-28] MEDS: Apixaban 5 MG TABLET PO ×2 (10:26→20:19)
[2024-05-28] MEDS: Multivitamin TABLET 1 TAB PO (10:26)
[2024-05-28] MEDS: Ferrous Sulfate 324 MG TABLET.DR PO (10:27)
[2024-05-28] MEDS: Baclofen 20 MG TABLET PO ×3 (10:27→20:19)
[2024-05-28] MEDS: Gabapentin 400 MG CAPSULE 800 MG PO ×2 (10:27→20:19)
[2024-05-28] MEDS: Docusate Sodium 100 MG CAPSULE PO (10:27)
[2024-05-28] MEDS: Cholecalciferol (Vitamin D3) 25 MCG TABLET PO (10:27)
[2024-05-28] MEDS: Nystatin Powder 15 GM BOTTLE 1 APPL TOPICAL (10:29)
--- NOTE | 2024-05-28 11:25 | PC.NURSE ---
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 rr is equal/non labored, pt medicated for 6/10 pain per his request, call mariee within reach, plan of care ongoing.
--- NOTE | 2024-05-28 12:50 | MHC.CM.ED ---
Patient remains in ER overflow. Christian Calloway is in the process of obtaining insurance auth. Xiomara requesting documentation on wound. 05/27 safety engineer note uploaded. Continue to monitor for d/c needs.
[2024-05-28 14:16] VITALS: BP 135/66; PULSE 63; RESP 14; TEMP 36.7; O2SAT 98
--- NOTE | 2024-05-28 14:20 | PC.NURSE ---
this nurse performed a dressing change on patient, patient was able to verbalize how he wished to assist this nurse, pt laid on left side as this nurse removed outter dressing and wet the dry 4x4s to remove them from the wound, as this nurse removed the dressings patient was yelling out in pain, this nurse spoke with provider about stronger pain medications for the patients dressing changes as he does not tolerate them well which changes will be made for dressing change tomm. the dressing was completed, full bed change was performed.
--- NOTE | 2024-05-28 14:28 | PC.NURSE ---
Patient refused scheduled pain meds and nystatin powder. Primary RN to be made aware.
--- NOTE | 2024-05-28 14:41 | MHC.CM.ED ---
Patient remains in ER overflow. Insurance auth has been obtained by Christian Dunmore. Tulio FERNÁNDEZS booked for tomorrow 05/29 at 1030am. [facility] with chart. Patient, brother Jolly Thomas RN and Frances LUTZ. Frances has been asked to provide paper prescription for oxycodone and an extra dose of oxycodone prior to transport. Continue to monitor for d/c needs.
--- NOTE | 2024-05-28 16:40 | PC.NURSE ---
pt medicated or pain per order
--- NOTE | 2024-05-28 17:33 | MHC.CM.ED ---
CM met with patient . He is aware that he will go to [facility] in [place] tomorrow at 10:30 via BLS.
[2024-05-28 21:19] VITALS: BP 117/60; PULSE 57; RESP 18; TEMP 36.6; O2SAT 99
[2024-05-28] MEDS: oxyCODONE HCl ER 10 MG TAB.ER.12H 30 MG PO (22:08)
--- NOTE | 2024-05-29 04:00 | PC.NURSE ---
this rn assumed care of pt @ 0300. pt noted to be sleeping. RR even non labored
[2024-05-29] MEDS: oxyCODONE HCl Immed Release 15 MG TABLET 30 MG PO ×2 (04:43→11:11)
--- NOTE | 2024-05-29 04:45 | PC.NURSE ---
pt rang call mariee reporting 10/20pain. pt medicated according to mar for 10/20 pain at this time. pt repositioned to back to promote sleep
[2024-05-29 05:10] VITALS: BP 120/63; PULSE 51; RESP 16; TEMP 36.3; O2SAT 98
[2024-05-29] MEDS: Pantoprazole Sodium 20 MG TABLET.DR 40 MG PO (05:56)
--- NOTE | 2024-05-29 05:58 | PC.NURSE ---
pt medicated according to marcos this rn attempted to assist pt with repositioning. pt declined repositioning
--- NOTE | 2024-05-29 07:00 | PC.NURSE ---
Report taken from Rosa Maria Khan RN at this time.
--- NOTE | 2024-05-29 08:13 | MHC.EDTECH ---
Breakfast tray delivered, pt refused to eat, tray left in the room, call mariee within reach.
[2024-05-29] MEDS: Multivitamin TABLET 1 TAB PO (08:43)
[2024-05-29] MEDS: Apixaban 5 MG TABLET PO (08:43)
[2024-05-29] MEDS: Gabapentin 400 MG CAPSULE 800 MG PO (08:43)
[2024-05-29] MEDS: Baclofen 20 MG TABLET PO (08:43)
[2024-05-29] MEDS: Cholecalciferol (Vitamin D3) 25 MCG TABLET PO (08:43)
[2024-05-29] MEDS: DULoxetine HCl 30 MG CAPSULE.DR PO (08:43)
[2024-05-29] MEDS: Docusate Sodium 100 MG CAPSULE PO (08:44)
[2024-05-29] MEDS: Ferrous Sulfate 324 MG TABLET.DR PO (08:44)
[2024-05-29] MEDS: oxyCODONE HCl Immed Release 15 MG TABLET PO (08:44)
--- NOTE | 2024-05-29 08:52 | PC.NURSE ---
Awaiting meds. per pharmacy at this time.
[2024-05-29 09:07] VITALS: BP 124/69; PULSE 55; RESP 14; TEMP 36.7; O2SAT 98
--- NOTE | 2024-05-29 09:19 | MHC.EDTECH ---
Pt had breakfast, is questioning Ensure drink which was not delivered, called kitchen to find out if they can bring it. Pt notified and waiting.
[2024-05-29] MEDS: Linezolid 600 MG TABLET PO (09:39)
[2024-05-29] MEDS: Ascorbic Acid 500 MG TABLET PO (09:39)
[2024-05-29] MEDS: Folic Acid 1 MG TABLET PO (09:39)
[2024-05-29] MEDS: Hydroxyurea 500 MG CAPSULE PO (09:39)
[2024-05-29] MEDS: Nystatin Powder 15 GM BOTTLE 1 APPL TOPICAL (09:40)
--- NOTE | 2024-05-29 12:00 | PC.NURSE ---
This RN completed wound dressing change as ordered
--- NOTE | 2024-05-29 12:15 | PC.NURSE ---
Physical prescription for Oxycodone given to EMS to deliver to facility. Pt.'s mother is at bedside and is aware
--- NOTE | 2024-05-29 12:24 | PC.NURSE ---
RN-to-RN report given to DIANNA Mancuso at [facility].
[2024-05-29 12:39] VITALS: BP 124/69; PULSE 55; RESP 14; TEMP 36.7; O2SAT 98
== END 2024-05-29 12:40 | disposition skilled nursing facility (03) ==
PROVIDERS: Emergency Provider Emergency Medicine
DX: Z48.01 Encounter for change or removal of surgical wound dressing (principal); L73.2 Hidradenitis suppurativa; Z98.890 Other specified postprocedural states
CPT/HCPCS: 36415; 80048; 80076; 83735; 85025; 87635; 97162; 97166; 99284; 99285

== ENCOUNTER → 2024-05-29 23:59 | Outpatient (BNV) | payer OTHER, SELFPAY | PROVIDERS: PCP Nurse Practitioner Family; Visit Provider Nurse Practitioner Family | DX: I69.351 Hemiplegia and hemiparesis following cerebral infarction affecting right dominant side (principal); F32.A Depression, unspecified | CPT/HCPCS: G0180 ==

== ENCOUNTER 2024-06-19 14:40 | Emergency (ER) | payer OTHER, SELFPAY ==
[2024-06-19 14:52] VITALS: BP 136/90; PULSE 83; O2SAT 97
[2024-06-19 14:56] VITALS: BP 94/55; PULSE 84; RESP 16; TEMP 36.7; O2SAT 95
[2024-06-19 15:30] VITALS: BP 122/49; PULSE 73; RESP 18; TEMP 36.7; O2SAT 99; BMI 31.5
[2024-06-19 16:00] VITALS: BP 122/49; PULSE 67; RESP 19; O2SAT 96
--- OUTSIDE RECORDS SUMMARY | 2024-06-19 16:31 | XMS_ITS | Encounter Summary ---
Author Organization [facility] Address [address] [place] [address] Care Team Providers Care Supply Service Worker Name Role Phone Kisha Navarro Primary Care Provider [phone] Reason for Visit * Reason Comments Med Refill Encounter Details Date Type Department Care Team (Late Contact Info) Description 05/18/2024 Refill [facility] [address]th [address] [place] [id number] Reinsurance Clerk: Nan Thibodeaux, Glenys Moreno MD [address] [place] [id number] Social History Tobacco Use Types Packs/Day Years Used Date Smoking Tobacco: Every Day Cigarettes 0.5 19.1 Started: 2005 Smokeless Tobacco: Never Alcohol Use Standard Drinks/Week Comments Not Currently 0 (1 standard drink = 0.6 oz pur e alcohol) Sex and Gender Information Value Date Recorded Sex Assigned at Male 07/24/2023 11:37 AM EDT Legal Sex Male 1:23 PM EST Gender Identity Male 07/24/2023 11:37 AM EDT Sexual Orientation Straight 07/24/2023 11 :37 AM EDT documented as of this encounter Plan of Treatment Upcoming Encounters Date Type Department Care Team (Late st Contact Info) Description 07/23/2024 3:15 PM EDT Office Visit [facility] 4th Floor [address] [facility], [place] [address] Reinsurance Clerk: Nan Thibodeaux, Glenys Moreno MD [address] [place] [address] documented as of this encounter Visit Diagnoses Not on filedocumented in this encounter Care Teams Supply Service Worker Relationship Specialty Start Date End Date Melanie Kisha [address] [place] [address] PCP - [facility] [address] [place] [address] Academic Primary Care Attending 05/14/22 Dr Marylou Vargas [address] [place] [id number] Neurology 07/31/22 Dr Waldo Cortez [address] [place] [address] Referring Physician 07/31/22 documented as of this encounter
--- OUTSIDE RECORDS SUMMARY | 2024-06-19 16:31 | XMS_ITS | Clinical Summary ---
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 Total <0.2(L) 0.2 - 1.2 mg/dL 05/17/2024 12:13 PM EST [facility] Bilirubin, Direct <0.1 <=0.4 mg/dL 05/17/2024 12:13 PM EST [facility] Alkaline Phosphatase 123 35 - 129 U/L 05/17/2024 12:13 PM EST [facility] AST 16 10 - 40 U/L 05/17/2024 12:13 PM EST [facility] ALT 7(L) 10 - 40 U/L 05/17/2024 12:13 PM EST [facility] Bilirubin, Indirect 05/17/2024 12:13 PM EST [facility] Comment:Unable to calculate A/G Ratio 0.9(L) 1.5 - 3.0 05/17/2024 12:13 PM EST [facility] Blood Structure of peripheral vein / Unknown Venipuncture / Unknown 05/17/2024 11:20 AM EST 05/17/2024 11:40 AM EST us Cynthia Gill MD LAB BLOOD ORDERABLES Final Result [facility] [address] [place] [address], [place] * (ABNORMAL) CBC (05/16/2024 4:45 AM EST) WBC 6.3 3.8 - 10.8 10*3/uL 05/16/2024 5:01 AM EST [facility] RBC 3.77(L) 4.20 - 5.80 10*6/uL 05/16/2024 5:01 AM EST [facility] Hemoglobin 9.5(L) 13.2 - 17.1 g/dL 05/16/2024 5:01 AM EST [facility] Hematocrit 31.6(L) 38.5 - 50.0 % 05/16/2024 5:01 AM EST [facility] MCV 83.8 80.0 - 100.0 fL 05/16/2024 5:01 AM EST [facility] MCH 25.2(L) 27.0 - 33.0 pg 05/16/2024 5:01 AM EST [facility] MCHC 30.1(L) 32.0 - 36.0 g/dL 05/16/2024 5:01 AM EST [employer] [facility] RDW 16.2(H) 11.0 - 15.0 % 05/16/2024 5:01 AM EST [facility] Platelets 529(H) 140 - 400 10*3/uL 05/16/2024 5:01 AM EST [facility] MPV 8.7 7.5 - 12.5 fL 05/16/2024 5:01 AM EST [facility] [employer] [facility] Blood Structure of peripheral vein / Unknown Venipuncture / Unknown 05/16/2024 4:45 AM EST 05/16/2024 4:53 AM EST us Cynthia Gill MD LAB BLOOD ORDERABLES Final Result [facility] [address] [place] [address], * (ABNORMAL) Basic metabolic panel (05/16/2024 4:45 AM EST) Only the most recent of2 resultswithin the time period is included. NA 141 135 - 145 mmol/L 05/16/2024 5:22 AM EST [employer] [facility] K 4.5 3.5 - 5.3 mmol/L 05/16/2024 5:22 AM EST [facility] Cl 104 98 - 107 mmol/L 05/16/2024 5:22 AM EST [facility] CO2 25 22 - 32 mmol/L 05/16/2024 5:22 AM EST [facility] BUN 13 7 - 23 mg/dL 05/16/2024 5:22 AM EST [facility] Creatinine 0.77 0.60 - 1.30 mg/dL 05/16/2024 5:22 AM EST [employer] [facility] Glucose 119(H) 65 - 99 mg/dL 05/16/2024 5:22 AM EST [facility] Calcium 8.4(L) 8.6 - 10.5 mg/dL 05/16/2024 5:22 AM EST [facility] Anion Gap 12 5 - 15 05/16/2024 5:22 AM EST [facility] eGFR >90 >=60 mL/min/1. 73m2 05/16/2024 5:22 AM EST [facility] Comment:The estimated glomer ular filtration rate (eGFR) is calculated using a new formula developed by the NKF-ASN task force to eliminate race-based correction factors. The new formula uses serum/plasma creatinine, age, and gender to determine eGFR. A value below 60mls/min might indicate kidney disease and will be flagged. For additional information, see Jatinder et al, Am J Kidney Dis. 2021;79(2):268- 288, A Unifying Approach for GFR estimation: Recommendations of the NKF-ASN Task Force on Reassessing the Inclusion of Race in Diagnosing Kidney Disease . Blood Structure of peripheral vein / Unknown Venipuncture / Unknown 05/16/2024 4:45 AM EST 05/16/2024 4:54 AM EST us Cynthia Gill MD LAB BLOOD ORDERABLES Final Result [facility] [address] [place] [address], * (ABNORMAL) CBC Auto Differential (05/15/2024 9:20 PM EST) WBC 8.4 3.8 - 10.8 10*3/uL 05/15/2024 9:35 PM EST [facility] RBC 4.15(L) 4.20 - 5.80 10*6/uL 05/15/2024 9:35 PM EST [facility] Hemoglobin 10.8(L) 13.2 - 17.1 g/dL 05/15/2024 9:35 PM EST [facility] Hematocrit 35.0(L) 38.5 - 50.0 % 05/15/2024 9:35 PM EST [facility] MCV 84.3 80.0 - 100.0 fL 05/15/2024 9:35 PM EST [facility] MCH 26.0(L) 27.0 - 33.0 pg 05/15/2024 9:35 PM EST [facility] MCHC 30.9(L) 32.0 - 36.0 g/dL 05/15/2024 9:35 PM EST [facility] RDW 16.2(H) 11.0 - 15.0 % 05/15/2024 9:35 PM EST [facility] Platelets 529(H) 140 - 400 10*3/uL 05/15/2024 9:35 PM EST [facility] MPV 8.8 7.5 - 12.5 fL 05/15/2024 9:35 PM EST [facility] Neutrophil % 90.9 % 05/15/2024 9:35 PM EST [facility] Immature Grans % 0.4 0.0 - 0.9 % 05/15/2024 9:35 PM EST [facility] Lymphocyte % 7.3 % 05/15/2024 9:35 PM EST [facility] Monocyte % 1.3 % 05/15/2024 9:35 PM EST [facility] Eosinophil % 0.0 % 05/15/2024 9:35 PM EST [facility] Basophil % 0.1 % 05/15/2024 9:35 PM EST [facility] Neutrophil # 7.64 1.50 - 7.80 10*3/uL 05/15/2024 9:35 PM EST [facility] Immature Grans # 0.03 <=0.03 10*3/uL 05/15/2024 9:35 PM EST [facility] Lymphocyte # 0.60(L) 0.85 - 3.90 10*3/uL 05/15/2024 9:35 PM EST [facility] Monocyte # 0.10(L) 0.20 - 0.95 10*3/uL 05/15/2024 9:35 PM EST [facility] Eosinophil # <0.03 0.02 - 0.50 10*3/uL 05/15/2024 9:35 PM EST [facility] Basophil # <0.03 0.00 - 0.20 10*3/uL 05/15/2024 9:35 PM EST [facility] nRBC % 0.0 /100 WBCs 05/15/2024 9:35 PM EST [facility] nRBC # <0.01 <0.01 10*3/uL 05/15/2024 9:35 PM EST [employer] [facility] Blood Structure of peripheral vein / Unknown Venipuncture / Unknown 05/15/2024 9:20 PM EST 05/15/2024 9:29 PM EST us Cynthia Gill MD LAB BLOOD ORDERABLES Final Result [facility] [address] [place] [address], * Blood Culture, Peripheral #2 (05/15/2024 9:20 PM EST) Only the most recent of2 resultswithin the time period is included. Culture No growth after 5 days 05/20/2024 11:19 PM EST [employer] [facility] Blood Structure of peripheral vein / Unknown Venipuncture / Unknown 05/15/2024 9:20 PM EST 05/15/2024 9:28 PM EST Narrative [facility] 05/20/2024 11:19 PM EST [facility] Received Date: MICRO NUMBER: [id number] SPECIMEN QUALITY: Suboptimal SOURCE: BLOOD VENOUS, PERIPHERAL STATUS: FINAL COMMENT: Aerobic and anaerobic bottle received. Inspection of blood culture bottles indicates that an inadequate volume of blood may have been collected for the detection of sepsis. Cynthia Gill MD LAB MICROBIOLOGY - GENERAL ORDERABLES Final Result Performing Organization Address City/[facility]/ZIP Co de Phone Number [facility] [address], [place] [address], [place] [phone] [employer] [facility] [address], [place] [address], [place] [phone] * Protime-INR (05/15/2024 9:20 PM EST) PT 11.0 9.6 - 12.4 Seconds 05/15/2024 9:48 PM EST [facility] INR 1.0 0.9 - 1.1 05/15/2024 9:48 PM EST [employer] [facility] Comment:The optimal therapeu tic INR range for patients treated with Vitamin K antagonists (VKAS, e.g., Warfarin) is 2.0 to 3.5. Discuss the desired range with your doctor/care team. Blood Structure of peripheral vein / Unknown Venipuncture / Unknown 05/15/2024 9:20 PM EST 05/15/2024 9:28 PM EST Cynthia Gill MD LAB BLOOD ORDERABLES Final Result [employer] [facility] [address] [place] [address], * Magnesium (05/15/2024 9:20 PM EST) MG 2.1 1.6 - 2.4 mg/dL 05/15/2024 9:58 PM EST [employer] [facility] Blood Structure of peripheral vein / Unknown Venipuncture / Unknown 05/15/2024 9:20 PM EST 05/15/2024 9:29 PM EST us Cynthia Gill MD LAB BLOOD ORDERABLES Final Result [facility] [address] [place] [address], [place] * Tissue Exam (05/15/2024 5:05 PM EST) Final Diagnosis Soft Tissue, Right Buttock, Excision: - Skin with underlying cyst lined by stratified squamous epithelium, cyst rupture surrounded by granulation tissue, acute and chronic inflammation. Note: The findings are compatible with hidradenitis suppurativa in the appropriate clinical setting. [facility] 05/20/2024 3:09 PM EST [facility] Clinical History Pre-op diagnosis: Hidradenitis suppurativa [L73.2] [facility] 05/20/2024 3:09 PM [facility] PATH[facility] LABOR[facility] Gross Description 1. Buttock, Right The specimen is received in formalin, labeled with the patient's name, medical record number, date of , and HS excision right buttock . Received are 4 portions of unoriented, scantly hairbearing, and almonte-brown roughened skin ranging from, 5.2 x 2.5 x 2.0 cm to 13.5 13.3 x 2.5 cm. The skin is remarkable for multiple pink-white to palencia indented nodules and ulcerations ranging from 1.3 cm to 1.7 cm in greatest dimension. The underlying soft tissue margin is inked black and the specimen is sectioned. Upon sectioning, the thickened dermis measures up to 1.3 cm in thickness and is pink-white, firm and rubbery with white trabeculations surrounded by areas of hemorrhage and possible necrosis. Oven Baker sections are submitted in cassettes 1A-[id number]. [facility] 05/20/2024 3:09 PM [facility] Gross Description User Grossing complete by Alicia Kaplan on 05/18/2024 10:30 AM [facility] 05/20/2024 3:09 PM EST [facility] Embedded Images [facility] 05/20/2024 3:09 PM EST [facility] Resulting Agency Case was signed out at [facility], Department of Pathology, [employer] 3 CLIA [id number] [facility] MAN[facility] 05/20/2024 3:09 PM EST [facility] ANATOMIC [facility]OLOG[facility] LAB[facility] Report Header Surgical Pathology Report ? Case: [id number] ? Authorizing Provider: ??Cynthia Gill MD ?Collected: ? 05/15/20241704 ? Ordering Location: ? [facility] ? Received: ?05/16/2024915 ? [facility] ? Operating Room ? Pathologist: ? Shani Dang MD ? Specimen: ?Buttock, Right, HS Excision Right Buttock ? 05/20/2024 3:09 PM EST [facility] Tissue Structure of right buttock / Unknown 05/15/2024 5:05 PM EST 05/16/2024 9:16 AM EST Comment:Pre-op diagnosis: Hidradenitis suppurativa [L73.2] Cynthia Gill MD LAB PATHOLOGY/CYTOLOGY ORDE RABLES Final Result Performing Organization Address City/[facility]/ZIP Co de Phone Number [facility] LABORATORY [address] [place] [address], [facility] [address] [place] [address], * Type and screen (05/15/2024 2:53 PM EST) ABO Blood Type A 05/15/2024 10:06 PM EST [facility] RH Type Positive 05/15/2024 10:06 PM EST [facility] Expiration Date/Time 2024-05-18 23:59 05/15/2024 10:06 PM EST [facility] Antibody Screen Negative 05/15/2024 10:06 PM EST [facility] Blood Structure of peripheral vein / Unknown Venipuncture / Unknown 05/15/2024 2:53 PM EST 05/15/2024 9:30 PM EST Cynthia Gill MD LAB BLOOD BANK TEST ORDERAB LES Edited Result - Final Performing Organization Address City/State/[facility] Co de Phone Number [facility] [address] [place] [address], * ECG 12 lead For Preop? Yes (05/15/2024 11:47 AM EST) Ventricular Rate EKG 56 BPM MUSE EKG Atrial Rate 56 BPM MUSE EKG DC Interval 174 ms MUSE EKG QRS Interval 106 ms MUSE EKG QT Interval 410 ms MUSE EKG QTC Interval 395 ms MUSE EKG P Galien 19 degrees MUSE EKG R Galien -28 degrees MUSE EKG T Wave Galien -17 degrees MUSE EKG 05/15/2024 11:4 7 AM EST 05/15/2024 6:42 PM EST Impressions MUSE EKG - 05/15/2024 6:42 PM EST SINUS BRADYCARDIA MINIMAL VOLTAGE CRITERIA FOR LVH, MAY BE NORMAL VARIANT T WAVE ABNORMALITY, CONSIDER ANTERIOR ISCHEMIA ABNORMAL ECG Confirmed by Shayan Wynne ([id number]) on 05/15/2024 6:42:01 PM us Judie Suarez NP ECG ORDERABLES Final Result MUSE EKG * Hepatitis C Antibody w/Reflex to HCV RNA, Quantitative PCR (07/12/2022 3:49 PM EST) Pathologist [facility] Hepatitis C Antibody NON-REACT JOSELITO NON-REACT JOSELITO 07/13/2022 7:25 AM EST [employer] Signal To Cut-Off 0.05 <1.00 07/13/2022 7:25 AM EST [employer] Comment: HCV antibody was non-reactive. There is no laboratory evidence of HCV infection. In most cases, no further action is required. However, if recent HCV exposure is suspected, a test for HCV RNA (test code 77248) is suggested. For additional information please refer to http://education.Insightfulinc/faq/ILH29x7 (This link is being provided for informational/ educational purposes only.) Blood Structure of peripheral vein / Unknown Venipuncture / Unknown 07/12/2022 3:49 PM EST 07/12/2022 3:49 PM EST Narrative [facility] - 07/13/2022 7:25 AM EST [facility] Received Date: us Glenys Thibodeaux MD LAB BLOOD ORDERABLES Final R esult [facility] [address], [place] [address], [place] [phone] [address], [place] [address], [place] [phone] from Last 3 Months or Most Recently Relevant to Health Maintenance Insurance [facility] MEDICA[employer] Advance Directives Documents on File Type Date Recorded Patient Oven Baker Expl anation Health Care Proxy 05/15/2024 12:17 PM Health Care Proxy 02/11/2023 2:48 PM 02-11 * Full Code (Latest Code Status on File) Date Activated Date Inactivated Comments 05/15/2024 7:16 PM 05/19/2024 4:02 PM * Full Code Date Activated Date Inactivated Comments 05/15/2024 11:30 AM 05/15/2024 7:16 PM * Full Code Date Activated Date Inactivated Comments 02/09/2023 1:59 PM 02/12/2023 10:23 PM Healthcare Agents on File Name Relationship Healthcare Agent Relationship Communication Olivia ward Mother Health Care Agent [email or web address] William KraftarzaHolliSylvia Brother Alternate H lt Care Agent Care Teams Geographic Information Systems Director Relationship Specialty Start Date End Date Kisha Navarro [address] [place] [address] PCP - General 03/25/24 Derek Centeno [facility] [address] [place] [address] Academic Primary Care Attending 05/14/22 Dr Marylou Vargas [address] [place] [id number] Neurology 07/31/22 Dr Waldo Cortez [address] [place] [address] Referring Physician 07/31/22
--- OUTSIDE RECORDS SUMMARY | 2024-06-19 16:31 | XMS_ITS | Encounter Summary ---
Author Organization [facility] Address [address] [place] [address] Care Team Providers Care Hypnotherapist Name Role Phone NavarroKisha cyr Primary Care Provider [phone] Encounter Details Date Type Department Care Team (Late st Contact Info) Description 05/22/2024 Telephone [facility] [address] [place] [address], [place] [address] Sessions Clerk: Cheko Bae MD [address] [place] [address] [place] [address] Social History Tobacco Use Types Packs/Day Years [...] AM EDT documented as of this encounter Miscellaneous Notes * Telephone Encounter - Cheko Sharma MD - 05/22/2024 4:32 PM EST Tried calling the patient using a specialized language instructor (ID [phone]) to discuss adjusting his antibiotics regimen to linezolid 600 mg twice daily as well as ciprofloxacin 500 mg twice daily for 10 days but was unable to reach them and asked his brother to convey the message to him so we can talk aboutthis adjusted regimen before submitting the prescriptions to the pharmacy since he will need to stop the antibiotics that he was discharged with prior to that. documented in this encounter Plan of Treatment Upcoming Encounters Date Type Department Care Team (Late st Contact Info) Description 07/23/2024 3:15 PM EDT Office Visit [facility]atology [facility] 4th Floor [address], [place] [id number] Sessions Clerk: Glenys Zee MD [address] [place] [phone] documented as of this encounter Visit Diagnoses Not on filedocumented in this encounter Care Teams Hypnotherapist Relationship Specialty Start Date End Date Kisha Navarro [facility] [place] [address] PCP - General [facility] [address] [place] [address] Academic Primary Care Attending 05/14/22 Dr Marylou Vargas [address] [place] [address] Neurology 07/31/22 Dr Waldo Cortez [address] [place] [address] Referring Physician 07/31/22 documented as of this encounter
--- OUTSIDE RECORDS SUMMARY | 2024-06-19 16:31 | XMS_ITS ---
Author Organization [facility] Address Unknown Medications Medication Dose Frequency Directions Start Date End Ramon e Naloxone HCl Liquid 4 MG/0.1ML 1 1 application in nostril as needed for Opioid Induced Respiratory Depression If resp. rate less than 6 per min and opioid depression suspected, reverse w/NarcanAdminister 4mg/0.1ml Naloxone/Narcan intranasally in 1 nostrilWait 3 minutes. If no response or slow to respond, repeat 4mg/0.1ml in other nostrilCall 911 05/29/2024 Acetaminophen Tablet 325 MG 2 {tbl} Give 2 tablet by mouth every 6 hours as needed for Pain - give 650mg total dose -NOT TO EXCEED 3 GMS APAP / 24 HOURS 05/29/2024 Acetaminophen Tablet 325 MG 2 {tbl} Give 2 tablet by mouth every 6 hours as needed for Elevated Temperature - give 650mg total dose -NOT TO EXCEED 3 GMS APAP / 24 HOURS 05/29/2024 Hydroxyurea Oral Capsule 500 mg 24 h Give 500 mg by mouth one time a day related to CHRONIC PAIN SYNDROME (G89.4) 05/30/2024 oxyCODONE HCl Oral Tablet 10 MG 3 {tbl} Give 3 tablet by mouth every 6 hours as needed for Pain related to CHRONIC PAIN SYNDROME (G89.4) until 06/01/2024 23:59 05/29/2024 06/02/2024 Acetaminophen Oral Tablet 500 MG 1 {tbl} Give 1 tablet by mouth every 4 hours as needed for Pain related to CHRONIC PAIN SYNDROME (G89.4) 05/29/2024 Baclofen Oral Tablet 20 MG 1 {tbl} 6 h Give 1 tablet by mouth four times a day related to CHRONIC PAIN SYNDROME (G89.4) 05/29/2024 Doxycycline Hyclate Oral Tablet 100 MG 1 {tbl} 24 h Give 1 tablet by mouth one time a day related to UNSPECIFIED OPEN WOUND OF UNSPECIFIED BUTTOCK, INITIAL ENCOUNTER (S31.809A) 05/30/2024 Cyclobenzaprine HCl Oral Tablet 10 MG 1 {tbl} Give 1 tablet by mouth every 8 hours as needed for spasns 05/29/2024 06/10/2024 tiZANidine HCl Oral Tablet 2 MG 2 {tbl} Give 2 tablet by mouth every 8 hours as needed for Anxiety related to ANXIETY DISORDER, UNSPECIFIED (F41.9) Muscle spasm 05/29/2024 06/10/2024 Clindamycin Phosphate External Gel 1 % Apply to affected area topically every 12 hours as needed for wound related to UNSPECIFIED OPEN WOUND OF UNSPECIFIED BUTTOCK, INITIAL ENCOUNTER (S31.622A) for wound care 05/29/2024 Folic Acid Oral Tablet 1 MG 1 {tbl} 24 h Give 1 tablet by mouth one time a day for supplement 05/30/2024 Ascorbic Acid Oral Tablet 500 mg 24 h Give 500 mg by mouth one time a day for supplement 05/30/2024 Ferrous Sulfate Oral Tablet 325 (65 Fe) MG 1 {tbl} 24 h Give 1 tablet by mouth one time a day for vitamin deficiency 05/30/2024 Triamcinolone Acetonide External Cream 0.1 % 12 h Apply to affected area topically two times a day related to UNSPECIFIED OPEN WOUND OF UNSPECIFIED BUTTOCK, INITIAL ENCOUNTER (S38.161R) 05/29/2024 Apixaban Oral Tablet 5 MG 1 {tbl} 24 h Give 1 tablet by mouth one time a day for Circulation 05/30/2024 05/30/2024 Cholecalciferol Oral Tablet 25 mg 24 h Give 25 mg by mouth one time a day for vitamin deficiency 05/30/2024 Gabapentin Oral Tablet 800 MG 1 {tbl} 8 h Give 1 tablet by mouth three times a day for Mood 05/30/2024 Docusate Sodium Oral Capsule 100 MG 1 {Capsule} 12 h Give 1 capsule by mouth two times a day for constipation 05/30/2024 Pantoprazole Sodium Oral Tablet Delayed Release 40 MG 1 {tbl} 24 h Give 1 tablet by mouth one time a day related to GASTRO-ESOPHAGEAL REFLUX DISEASE WITHOUT ESOPHAGITIS (K21.9) 05/30/2024 DULoxetine HCl Oral Capsule Delayed Release Sprinkle 30 MG 1 {Capsule} 8 h Give 1 capsule by mouth three times a day for DEPRESSION 05/30/2024 06/04/2024 Apixaban Oral Tablet 5 MG 1 {tbl} 12 h Give 1 tablet by mouth two times a day for Circulation 05/30/2024 Canakinumab Subcutaneous Solution 150 MG/ML 150 mg 24 h Inject 150 mg subcutaneously one time a day every 28 day(s) related to CHRONIC PAIN SYNDROME (G89.4) 06/02/2024 06/01/2024 Canakinumab Subcutaneous Solution 150 MG/ML 150 mg 24 h Inject 150 mg subcutaneously one time a day every 28 day(s) related to CHRONIC PAIN SYNDROME (G89.4) for 28 Days 06/03/2024 oxyCODONE HCl Oral Tablet 10 MG 3 {tbl} Give 3 tablet by mouth every 6 hours as needed for pain 06/02/2024 06/03/2024 oxyCODONE HCl Oral Tablet 5 MG 6 {tbl} Give 6 tablet by mouth every 6 hours as needed for pains 30 mg 06/03/2024 06/08/2024 DULoxetine HCl Oral Capsule Delayed Release Sprinkle 30 MG 1 {Capsule} 12 h Give 1 capsule by mouth two times a day for DEPRESSION 06/05/2024 06/04/2024 DULoxetine HCl Oral Capsule Delayed Release Particles 30 MG 1 {Capsule} 12 h Give 1 capsule by mouth two times a day related to MAJOR DEPRESSIVE DISORDER, RECURRENT, UNSPECIFIED (F33.9) 06/05/2024 Motrin IB Oral Tablet 800 mg Give 8 00 mg by mouth every 6 hours as needed for Moderate Pain until 2024 23:59 06/08/2024 06/08/2024 Melatonin Oral Tablet 5 MG 1 {tbl} Give 1 tablet by mouth at bedtime related to OPIOID ABUSE, UNCOMPLICATED (F11.10) insomnia 2024 oxyCODONE HCl Oral Tablet 5 MG 4 {tbl} Give 4 tablet by mouth every 6 hours as needed for pains 20 mg 06/08/2024 tiZANidine HCl Oral Tablet 2 MG 2 {tbl} 8 h Give 2 tablet by mouth three times a day related to CRAMP AND SPASM (R25.2) 06/11/2024 Cyclobenzaprine HCl Oral Tablet 10 MG 1 {tbl} 8 h Give 1 tablet by mouth three times a day related to CRAMP AND SPASM (R25.2) 06/11/2024 Medications Administered Medication Dose Frequency Status Start Date End Date Naloxone HCl Liquid 4 MG/0.1ML 1 05/29/2024 Acetaminophen Tablet 325 MG 2 {tbl} Acetaminophen Tablet 325 MG 2 {tbl} Hydroxyurea Oral Capsule 500 mg 24 h 06/18 oxyCODONE HCl Oral Tablet 10 MG 3 {tbl} 06/02/2024 Acetaminophen Oral Tablet 50 0 MG 1 {tbl} 05/29/2024 Baclofen Oral Tablet 20 MG 1 {tbl} 6 h Hospitalized 06/18/2024 Doxycycline Hyclate Oral Tablet 100 MG 1 {tbl} 24 h 06/18/2024 Cyclobenzaprine HCl Oral Tablet 10 MG 1 {tbl} 2024 tiZANidine HCl Oral Tablet 2 MG 2 {tbl} 2024 Clindamycin Phosphate Bar Assistant al Gel 1 % 05/29/2024 Folic Acid Oral Tablet 1 MG 1 {tbl} 24 h Ascorbic Acid Oral Tablet 500 mg 24 h 10/2024 Ferrous Sulfate Oral Tablet 325 (65 Fe) MG 1 {tbl} 24 h 06/18/2024 Triamcinolone Acetonide External Cream 0.1 % 12 h Hospitalized 06/19/2024 Apixaban Oral Tablet 5 MG 1 {tbl} 24 h 05/13 Cholecalciferol Oral Tablet 25 mg 24 h Gabapentin Oral Tablet 800 MG 1 {tbl} 8 h Hospitaliz ed 06/18/2024 Docusate Sodium Oral Capsule 100 MG 1 {Capsule} 12 h Hospitalized 06/18/2024 Pantoprazole Sodium Oral Tablet Delayed Release 40 MG 1 {tbl} 24 h 06/18/2024 DULoxetine HCl Oral Capsule Delayed Release Sprinkle 30 MG 1 {Capsule} 8 h 06/04/2024 Apixaban Oral Tablet 5 MG 1 {tbl} 12 h Hospitalized 0 06/18/2024 Canakinumab Subcutaneous Solution 150 MG/ML 150 mg 24 h 06/02/2024 Canakinumab Subcutaneous Solution 150 MG/ML 150 mg 24 h 06/03/2024 oxyCODONE HCl Oral Tablet 10 MG 3 {tbl} 06/02/2024 oxyCODONE HCl Oral Tablet 5 MG 6 {tbl} 06/08/2024 DULoxetine HCl Oral Capsule Delayed Release Sprinkle 30 MG 1 {Capsule} 12 h 06/05/2024 DULoxetine HCl Oral Capsule Delayed Release Particles 30 MG 1 {Capsule} 12 h Hospitalized 06/18/2024 Motrin IB Oral Tablet 800 mg 06/08/19 25 Melatonin Oral Tablet 5 MG 1 {tbl} Hospitalized 06/18/2024 oxyCODONE HCl Oral Tablet 5 MG 4 {tbl} 06/18/2024 tiZANidine HCl Oral Tablet 2 MG 2 {tbl} 8 h Hospitalized 06/18/2024 Cyclobenzaprine HCl Oral Tablet 10 MG 1 {tbl} 8 h Hospitalized 06/18/2024 Problems Problem Status Start Date End Date HEMIPLEGIA, UNSPECIFIED AFFE CTING RIGHT DOMINANT SIDE (Primary) (G81.91 - ICD-10-CM) ACTIVE 05/29/2024 OPIOID ABUSE, UNCOMPLICATED (F11.10 - ICD-10-CM) ACTIV E 05/29/2024 ANXIETY DISORDER, UNSPECIFIED (F41.9 - ICD-10-CM) ACTI VE 05/29/2024 MAJOR DEPRESSIVE DISORDER, R ECURRENT, UNSPECIFIED (F33.9 - ICD-10-CM) ACTIVE 05/29/2024 POLYNEUROPATHY, UNSPECIFIED (G62.9 - ICD-10-CM) ACTIVE 05/29/2024 OTHER SYMPTOMS AND SIGNS INV OLVING THE MUSCULOSKELETAL SYSTEM (R29.898 - ICD-10-CM) ACTIVE 05/29/2024 WEAKNESS (R53.1 - ICD-10-CM) ACTIVE 05/29/2024 DEPRESSION, UNSPECIFIED (F32.A - ICD-10-CM) ACTIVE 05/29/2024 CRAMP AND SPASM (R25.2 - ICD-10-CM) ACTIVE 05/29 CHRONIC PAIN SYNDROME (G89.4 - ICD-10-CM) ACTIVE 05/29/2024 GASTRO-ESOPHAGEAL REFLUX DIS EASE WITHOUT ESOPHAGITIS (K21.9 - ICD-10-CM) ACTIVE 05/29/2024 ESSENTIAL (PRIMARY) HYPERTENSION (I10 - ICD-10-CM) ACT JOSELITO 05/29/2024 UNSPECIFIED OPEN WOUND OF UN SPECIFIED BUTTOCK, INITIAL ENCOUNTER (S31.809A - ICD-10-CM) ACTIVE 05/29/2024 UNSPECIFIED OPEN WOUND OF UN SPECIFIED BUTTOCK, SUBSEQUENT ENCOUNTER (S31.809D - ICD-10-CM) ACTIVE 05/29/2024 OTHER ABNORMALITIES OF GAIT AND MOBILITY (R26.89 - ICD-10-CM) ACTIVE 05/29/2024 Encounters Encounter Performer Performer Role Encounter Diagnoses Location Date Discharge - Discharged / Transferred to another hospital - [facility] 05/29/2024 02:45 pm EST - 06/18/2024 03:00 pm EST Advance Directives Directive Description Verification Code Status: Full Code/ CPR Resuscitation Immunizations Vaccine Date Tdap (Tetanus/ Diptheria) Tdap (Tetanus/ Diptheria) PCV 20 Hepatitis A - Adult dose (PFIZER) COVID-19 Vaccine 2023 Influenza, split virus, trivalent, PF 20 202402/08/2024 12:00 am EDT Social History Vital Signs Vital Sign Reading Time Taken painLevel 0 {score} 06/18/2024 04:17 pm EST painLevel 0 {score} 06/18/2024 05:17 am EST painLevel 0 {score} 06/17/2024 11:00 pm EST painLevel 0 {score} 06/17/2024 10:59 pm EST painLevel 5 {score} 06/17/2024 08:00 pm EST painLevel 0 {score} 06/17/2024 06:08 pm EST painLevel 0 {score} 06/17/2024 03:24 pm EST painLevel 6 {score} 06/17/2024 01:54 pm EST painLevel 5 {score} 06/17/2024 01:34 pm EST painLevel 0 {score} 06/17/2024 08:04 am EST painLevel 0 {score} 06/17/2024 08:02 am EST painLevel 7 {score} 06/17/2024 06:22 am EST painLevel 0 {score} 06/17/2024 05:33 am EST painLevel 0 {score} 06/16/2024 09:43 pm EST painLevel 8 {score} 06/16/2024 09:33 pm EST painLevel 0 {score} 06/16/2024 09:15 pm EST painLevel 0 {score} 06/16/2024 08:26 pm EST painLevel 0 {score} 06/16/2024 08:24 pm EST painLevel 0 {score} 06/16/2024 03:33 pm EST painLevel 5 {score} 06/16/2024 03:16 pm EST painLevel 0 {score} 06/16/2024 09:58 am EST painLevel 0 {score} 06/16/2024 09:58 am EST painLevel 8 {score} 06/16/2024 08:24 am EST painLevel 0 {score} 06/16/2024 05:20 am EST painLevel 0 {score} 06/15/2024 07:27 pm EST painLevel 5 {score} 06/15/2024 07:12 pm EST painLevel 3 {score} 06/15/2024 07:06 pm EST painLevel 5 {score} 06/15/2024 05:30 pm EST painLevel 0 {score} 06/15/2024 01:02 pm EST painLevel 5 {score} 06/15/2024 09:59 am EST painLevel 5 {score} 06/15/2024 09:42 am EST painLevel 5 {score} 06/15/2024 08:22 am EST painLevel 0 {score} 06/15/2024 03:46 am EST painLevel 5 {score} 06/15/2024 03:35 am EST painLevel 0 {score} 06/15/2024 12:53 am EST painLevel 0 {score} 06/14/2024 09:25 pm EST painLevel 8 {score} 06/14/2024 08:29 pm EST painLevel 0 {score} 06/14/2024 07:46 pm EST painLevel 0 {score} 06/14/2024 07:35 pm EST weight 221.5 [lb_av] 06/15/2024 02:47 pm EST
--- OUTSIDE RECORDS SUMMARY | 2024-06-19 16:31 | XMS_ITS | Encounter Summary ---
Author Organization [facility] Address [address] [place] [address] Care Team Providers Care Cashier Assistant Name Role Phone Kisha Navarro Primary Care Provider [phone] Encounter Details Date Type Department Care Team (Late st Contact Info) Description 05/14/2024 myChart Message [facility] [address] [place] [address] [phone] Autocad Designer: Glenys Zee MD [address] [place] [phone] antibiotics Social History Tobacco Use Types Packs/Day Years [...] Description 07/23/2024 3:15 PM EDT Office Visit [facility] [address] [place] [phone] Autocad Designer: Glenys Zee MD [address] [place] [address] documented as of this encounter Visit Diagnoses Not on filedocumented in this encounter Care Teams Cashier Assistant Relationship Specialty Start Date End Date Kisha Navarro [address] [place] [address] PCP - [facility] [address] [place] [id number] Academic Primary Care Attending 05/14/22 Dr Marylou Vargas [address] [place] [id number] Neurology 07/31/22 Dr Waldo Cortez [address] [place] [address] Referring Physician 07/31/22 documented as of this encounter
--- OUTSIDE RECORDS SUMMARY | 2024-06-19 16:31 | XMS_ITS | Referral Summary ---
Author Organization [facility] Address [address] [place] [address] Care Team Providers Care Spine Supervisor Name Role Phone MelanieSerafinKisha Primary Care Provider Encounters Date Type Department Care Team Description 05/25/[address] [facility] Dermatology [address] [place] [address] Marine Superintendent: Cheko Horvath MD 05/22/2024 Telephone [facility] D[facility]atology Clinic 4th Floor [address] [facility], [place] [phone] Marine Superintendent: Cheko Bae MD 05/22/2024 Documentation [facility] Building Dermatlogy Clinic 1st Floor [address] [place] [address] Kd Willis CPhT Prior Authorization ([place] approval for Ilaris 150mg/ml, #06/09, through [employer], (PA#[id number]), Effective 05/18/2024-05/18/2025 , September/ fill with [facility] pharmacy, Co-pay $0) 05/15/2024 11:01 AM EST - 05/19/2024 2:01 PM EST Hospital Encounter [facility] [address] [place] [address] Cynthia Gill MD Hidradenitis suppurativa Discharge Disposition: Home with Services (06) 05/18/2024 Refill [facility] Dermatology [address] [phone] Marine Superintendent: Glenys Zee MD 05/15/2024 Telephone [facility] [address] [place] [phone] Marine Superintendent: Daisy Zhou MD 05/15/2024 12:30 PM EST - 05/15/2024 2:55 PM EST Surgery [facility] Operating Room [address] [place] [address] Cynthia Gill MD DEBRIDEMENT OF SUBCUTANEOUS TISSUE, (INCLUDING EPIDERMIS AND DERMIS, IF PERFORMED); FIRST 20 SQUARE CM OR LESS [[id number] (CPT??)] 05/15/2024 3:23 PM EST Anesthesia Event [facility] Operating Room [address] [place] [address] Felipe Arroyo MD Waldman, Julia A., 05/14/2024 myChart Message [facility] D[facility]at[facility] [address] [phone] Marine Superintendent: Glenys Zee MD antibiotics 05/14/2024 Orders Only [facility] D[facility]at[facility] [address] [phone] Marine Superintendent: Glenys Zee MD Hidradenitis suppurativa (Primary Dx); Prophylactic antibiotic 04/23/2024 3:15 PM EST Office Visit [facility] Dermatology [address] [address] Marine Superintendent: Glenys Zee MD Hidradenitis suppurativa (Primary Dx); Candidal intertrigo 03/25/2024 Telephone [facility] [address] [place] [address] Cynthia Gill MD 03/23/2024 Documentation [facility] Plastic Cosmetic Surgery [address] [place] [address] Marine Superintendent: Cynthia Saunders MD from Last 3 Months Allergies No known active allergies Medications ferrous [...] needle, disp, 27 gauge (BD Regular Bevel [place]) 27 gauge x 1/2 needleIndicati ons:Hidradenit is [...] mg twice daily was held 3 days TRANSPLANTER ORCHID in preparation for his surgery. Patient is [...] mg twice daily was held 3 days TRANSPLANTER ORCHID in preparation for his surgery. Patient is [...] mg twice daily was held 3 days TRANSPLANTER ORCHID in preparation for his surgery. Patient is [...] EDT): Continue home antihypertensive amlodipine 5 daily Hidradenitis suppurativa 01/09/2023 Assessment & Plan (05/18/2024 3:53 [...] course of abx. Eliquis held 3 days TRANSPLANTER ORCHID. Admitted to plastic surgery team with medicine [...] course of abx. Eliquis held 3 days TRANSPLANTER ORCHID. Admitted to plastic surgery team with medicine [...] course of abx. Eliquis held 3 days TRANSPLANTER ORCHID. 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 It is notable that he is mildly immunocompromised while on Ilaris. He did receive clinda while intra-op -blood cultures NGTD -would advise close monitoring for signs of systemic infection including daily CBC and monitoring fever curve GERD (gastroesophageal reflux disease) Assessment & Plan (05/16/2024 6:36 AM EST): [...] him and his parents. He speaks decent lebanese, but his ability to convey his medical history is limited by his stroke, and his parents require a japanese interpreter. It sounds like he was in [...] him and his parents. He speaks decent lebanese, but his ability to convey his medical history is limited by his stroke, and his parents require a japanese interpreter. It sounds like he was in [...] Diagnosed Date Resolved Date Tobacco dependence 01/09/2023 Social History Tobacco Use Types Packs/Day Years [...] Description 07/23/2024 3:15 PM EDT Office Visit [facility] Dermatology Clinic 4th Floor [address] [facility], [place] [phone] Marine Superintendent: Glenys Zee MD [address] [place] [address] Procedures * Due to [place] state law, this organization might not be [...] to Health Maintenance Results * Due to [place] state law, this organization might not be sharing negative HIV tests. * (ABNORMAL) Hepatic Function Panel (05/17/2024 11:20 AM EST) Only the most recent of2 resultswithin the time period is included. Total Protein 6.6 6.0 - 8.0 g/dL 05/17/2024 12:13 PM EST [facility] Albumin 3.2(L) 3.5 - 5.2 g/dL 05/17/2024 12:13 PM EST [facility] Globulin, Total 3.4 2.1 - 4.2 g/dL 05/17/2024 12:13 PM EST [facility] Bilirubin, Total <0.2(L) 0.2 - 1.2 mg/dL 05/17/2024 12:13 PM EST [employer] [facility] LAB[facility]AT[facility] Bilirubin, Direct <0.1 <=0.4 mg/dL 05/17/2024 12:13 PM EST [employer] [facility] Alkaline Phosphatase 123 35 - 129 U/L 05/17/2024 12:13 PM EST [employer] [facility] AST 16 10 - 40 U/L 05/17/2024 12:13 PM EST [employer] [facility] ALT 7(L) 10 - 40 U/L 05/17/2024 12:13 PM EST [employer] [facility] Bilirubin, Indirect 05/17/2024 12:13 PM EST [facility] Comment:Unable to calculate A/G Ratio 0.9(L) 1.5 - 3.0 05/17/2024 12:13 PM EST [facility] Blood Structure of peripheral vein / Unknown Venipuncture / Unknown 05/17/2024 11:20 AM EST 05/17/2024 11:40 AM EST us Cynthia Gill MD LAB BLOOD ORDERABLES Final Result [facility]ision[facility] LABORAT[facility] [address] [place] [address], * (ABNORMAL) CBC (05/16/2024 4:45 AM EST) WBC 6.3 3.8 - 10.8 10*3/uL 05/16/2024 5:01 AM EST [employer] [facility] LAB[facility] RBC 3.77(L) 4.20 - 5.80 10*6/uL 05/16/2024 5:01 AM EST [facility] Hemoglobin 9.5(L) 13.2 - 17.1 g/dL 05/16/2024 5:01 AM EST [facility] Hematocrit 31.6(L) 38.5 - 50.0 % 05/16/2024 5:01 AM EST [facility] MCV 83.8 80.0 - 100.0 fL 05/16/2024 5:01 AM EST [facility] MCH 25.2(L) 27.0 - 33.0 pg 05/16/2024 5:01 AM EST [facility] MCHC 30.1(L) 32.0 - 36.0 g/dL 05/16/2024 5:01 AM EST [facility] RDW 16.2(H) 11.0 - 15.0 % 05/16/2024 5:01 AM EST [facility] Platelets 529(H) 140 - 400 10*3/uL 05/16/2024 5:01 AM EST [facility] MPV 8.7 7.5 - 12.5 fL 05/16/2024 5:01 AM EST [facility] Blood Structure of peripheral vein / Unknown Venipuncture / Unknown 05/16/2024 4:45 AM EST 05/16/2024 4:53 AM EST us Cynthia Gill MD LAB BLOOD ORDERABLES Final Result [facility] [address] [place] [address], * (ABNORMAL) Basic metabolic panel (05/16/2024 4:45 AM EST) Only the most recent of2 resultswithin the time period is included. NA 141 135 - 145 mmol/L 05/16/2024 5:22 AM EST [facility] K 4.5 3.5 - 5.3 mmol/L 05/16/2024 5:22 AM EST [facility] Cl 104 98 - 107 mmol/L 05/16/2024 5:22 AM EST [facility] CO2 25 22 - 32 mmol/L 05/16/2024 5:22 AM EST [facility] BUN 13 7 - 23 mg/dL 05/16/2024 5:22 AM EST [facility] Creatinine 0.77 0.60 - 1.30 mg/dL 05/16/2024 5:22 AM EST [facility] Glucose 119(H) 65 - 99 mg/dL 05/16/2024 5:22 AM EST [facility] Calcium 8.4(L) 8.6 - 10.5 mg/dL 05/16/2024 5:22 AM EST [facility] Anion Gap 12 5 - 15 05/16/2024 5:22 AM EST [facility] eGFR >90 >=60 mL/min/1. 73m2 05/16/2024 5:22 AM EST [facility] Comment:The estimated glomer ular filtration rate (eGFR) is calculated using a new formula developed by the NKF-ASN task force to eliminate race-based correction factors. The new formula uses serum/plasma creatinine, age, and gender to determine eGFR. A value below 60mls/min might indicate kidney disease and will be flagged. For additional information, see Tobias et al, Am J Kidney Dis. 2021;79(2):268- 288, A Unifying Approach for GFR estimation: Recommendations of the NKF-ASN Task Force on Reassessing the Inclusion of Race in Diagnosing Kidney Disease . Blood Structure of peripheral vein / Unknown Venipuncture / Unknown 05/16/2024 4:45 AM EST 05/16/2024 4:54 AM EST us Cynthia Gill MD LAB BLOOD ORDERABLES Final Result [facility] [address] [place] [address], [place] * (ABNORMAL) CBC Auto Differential (05/15/2024 9:20 PM EST) WBC 8.4 3.8 - 10.8 10*3/uL 05/15/2024 9:35 PM EST [facility] RBC 4.15(L) 4.20 - 5.80 10*6/uL 05/15/2024 9:35 PM EST [facility] Hemoglobin 10.8(L) 13.2 - [...] 0.03 <=0.03 10*3/uL 05/15/2024 9:35 PM EST [facility] Lymphocyte # 0.60(L) 0.85 - 3.90 10*3/uL 05/15/2024 9:35 PM EST [facility] Monocyte # 0.10(L) 0.20 - 0.95 10*3/uL 05/15/2024 9:35 PM EST [facility] Eosinophil # <0.03 0.02 - 0.50 10*3/uL 05/15/2024 9:35 PM EST [facility] Basophil # <0.03 0.00 - 0.20 10*3/uL 05/15/2024 9:35 PM EST [facility] nRBC % 0.0 /100 WBCs 05/15/2024 9:35 PM EST [facility] nRBC # <0.01 <0.01 10*3/uL 05/15/2024 9:35 PM EST [facility] Blood Structure of peripheral vein / Unknown Venipuncture / Unknown 05/15/2024 9:20 PM EST 05/15/2024 9:29 PM EST Cynthia Gill MD LAB BLOOD ORDERABLES Final Result [facility] [address] [place] [address], * Blood Culture, Peripheral #2 (05/15/2024 9:20 PM EST) Only the most recent of2 resultswithin the time period is included. Culture No growth after 5 days 05/20/2024 11:19 PM EST [employer] Blood Structure of peripheral vein / Unknown Venipuncture / Unknown 05/15/2024 9:20 PM EST 05/15/2024 9:28 PM EST Narrative [facility] - 05/20/2024 11:19 PM EST [facility] Received Date: MICRO NUMBER: [id number] SPECIMEN QUALITY: Suboptimal SOURCE: BLOOD VENOUS, PERIPHERAL STATUS: FINAL COMMENT: Aerobic and anaerobic bottle received. Inspection of blood culture bottles indicates that an inadequate volume of blood may have been collected for the detection of sepsis. Cynthia Gill MD LAB MICROBIOLOGY - GENERAL ORDERABLES Final Result Performing Organization Address City/[facility]/ZIP Co de Phone Number [facility] [address] [facility] 3rd Floor, [place] [address], [place] [phone] [employer] [facility] [address] [facility] 3rd Floor, [place] [address], [place] [phone] * Protime-INR (05/15/2024 9:20 PM EST) PT 11.0 9.6 - 12.4 Seconds 05/15/2024 9:48 PM EST [facility] INR 1.0 0.9 - 1.1 05/15/2024 9:48 PM EST [facility] Comment:The optimal therapeu tic INR range for patients treated with Vitamin K antagonists (VKAS, e.g., Warfarin) is 2.0 to 3.5. Discuss the desired range with your doctor/care team. Blood Structure of peripheral vein / Unknown Venipuncture / Unknown 05/15/2024 9:20 PM EST 05/15/2024 9:28 PM EST Cynthia Gill MD LAB BLOOD ORDERABLES Final Result Performing Organization Address City/[facility]/ZIP Co de Phone Number [facility] [address] [place] [address], * Magnesium (05/15/2024 9:20 PM EST) MG 2.1 1.6 - 2.4 mg/dL 05/15/2024 9:58 PM EST [facility] PATH[facility] Blood Structure of peripheral vein / Unknown Venipuncture / Unknown 05/15/2024 9:20 PM EST 05/15/2024 9:29 PM EST Cynthia Gill MD LAB BLOOD ORDERABLES Final Result Performing Organization Address City/[facility] Co de Phone Number [facility]ITALTeburuGE[facility]GET[facility] CLINICAL PATHOLOGY LABORATORY [address] [place] [address], * Tissue Exam (05/15/2024 5:05 PM EST) Final Diagnosis Soft Tissue, Right Buttock, Excision: - Skin with underlying cyst lined by stratified squamous epithelium, cyst rupture surrounded by granulation tissue, acute and chronic inflammation. Note: The findings are compatible with hidradenitis suppurativa in the appropriate clinical setting. [facility] 05/20/2024 3:09 PM EST [facility] ANAT[facility] PATHOLOGY LABORAT[facility] Clinical History Pre-op diagnosis: Hidradenitis suppurativa [L73.2] [facility] 05/20/2024 3:09 PM EST [facility] ANATOMIC PATHOLOGY LABORATORY Gross Description 1. Buttock, [...] by areas of hemorrhage and possible necrosis. Dry Sand Molder sections are submitted in cassettes 1A-1E. [facility] MANUAL 05/20/2024 3:09 PM EST [facility] ANATOMIC PATHOLOGY LABORATORY Gross Description User Grossing complete by Alicia Kaplan on 05/18/2024 10:30 AM [facility] MANUAL 05/20/2024 3:09 PM [facility] ANATOMIC PATHOLOGY LABORATORY Embedded Images [facility] MANUAL 05/20/2024 3:09 PM EST [facility] ANATOMIC PATHOLOGY LABORATORY Resulting Agency Case was signed out at [facility], Department of Pathology, [employer] 3 CLIA [id number] [facility] MANUAL 05/20/2024 3:09 PM [facility] ANATOMIC PATHOLOGY LABORATORY Report Header Surgical Pathology Report ? Case: [id number] ? Authorizing Provider: ??Cynthia Gill MD ?Collected: ? 05/15/2024 1705 ? Ordering Location: ? [facility] ? Received: ?05/16/2024 0916 ? [place] ? Operating Room ? Pathologist: ? Shani Dang MD ? Specimen: ?Buttock, Right, HS Excision Right Buttock ? 05/20/2024 3:09 PM EST [facility] AN[facility] PATHOLOGY LAB[facility] Tissue Structure of right buttock / Unknown 05/15/2024 5:05 PM EST 05/16/2024 9:16 AM EST Comment:Pre-op diagnosis: Hidradenitis suppurativa [L73.2] us Cynthia Gill MD LAB PATHOLOGY/CYTOLOGY ESPERANZA PERRY Final Result [facility] LABOR[facility] [address] [place] [address], [facility] ANATOMIC PATHOLOGY LABORATORY [address] [place] [address], * Type and screen (05/15/2024 2:53 PM EST) ABO Blood Type A 05/15/2024 10:06 PM EST [facility] RH Type Positive 05/15/2024 10:06 PM EST U [facility] Expiration Date/Time 2024-05-18 23:59 05/15/2024 10:06 PM EST U [facility] Antibody Screen Negative 05/15/2024 10:06 PM EST [facility] Blood Structure of peripheral vein / Unknown Venipuncture / Unknown 05/15/2024 2:53 PM EST 05/15/2024 9:30 PM EST Cynthia Gill MD LAB BLOOD BANK TEST ORDERAB LES Edited Result - Final [facility] INF[facility] [address] [place] [address], * ECG 12 lead For Preop? Yes (05/15/2024 11:47 AM EST) Ventricular Rate EKG 56 BPM MUSE EKG Atrial Rate 56 BPM MUSE EKG [place] Interval 174 ms MUSE EKG QRS Interval 106 ms MUSE EKG QT Interval 410 ms MUSE EKG QTC Interval 395 ms MUSE EKG P [place] 19 degrees MUSE EKG R [place] -28 degrees MUSE EKG T Wave [place] -17 degrees MUSE EKG 05/15/2024 11:4 7 AM EST 05/15/2024 6:42 PM EST Impressions MUSE EKG - 05/15/2024 6:42 PM EST SINUS BRADYCARDIA MINIMAL VOLTAGE CRITERIA FOR LVH, MAY BE NORMAL VARIANT T WAVE ABNORMALITY, CONSIDER ANTERIOR ISCHEMIA ABNORMAL ECG Confirmed by Shayan Wynne ([id number]) on 05/15/2024 6:42:01 PM us Judie Suarez NP ECG ORDERABLES Final Result MUSE EKG * Hepatitis C Antibody w/Reflex to HCV RNA, Quantitative PCR (07/12/2022 3:49 PM EST) Hepatitis C Antibody NON-REACT JOSELITO NON-REACT JOSELITO 07/13/2022 7:25 AM EST [employer] Signal To Cut-Off 0.05 <1.00 07/13/2022 7:25 AM EST [employer] Comment: HCV antibody was non-reactive. There is no laboratory evidence of HCV infection. In most cases, no further action is required. However, if recent HCV exposure is suspected, a test for HCV RNA (test code 83142) is suggested. For additional information please refer to http://education.Cooking.com/faq/AVP34j5 (This link is being provided for informational/ educational purposes only.) Blood Structure of peripheral vein / Unknown Venipuncture / Unknown 07/12/2022 3:49 PM EST 07/12/2022 3:49 PM EST [facility] - 07/13/2022 7:25 AM EST [facility] Received Date: Glenys Thibodeaux MD LAB BLOOD ORDERABLES Final R esult [facility] [address] [facility] 3rd [address], [place] [address], [employer] [facility] [address] [facility] [address], [place] [address], from Last 3 Months or Most Recently Relevant to Health Maintenance Insurance [facility] MEDICAID Advance Directives Documents on File Type Date Recorded 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 Health Care Proxy 05/15/2024 12:17 [...] Communication Olivia ward Mother Health Care Agent [email or web address] William Guzmán-Joe Brother [facility] Care Agent Care Teams Spine Supervisor Relationship Specialty Start Date End Date Kisha Navarro [address] [place] [phone] PCP - General 03/25/24 [facility] [address] [place] [address] Academic Primary Care Attending 05/14/22 Dr Marylou Vargas [address] [place] [address] Neurology 07/31/22 Dr Waldo Cortez [address] [place] [address] Referring Physician 07/31/22
--- OUTSIDE RECORDS SUMMARY | 2024-06-19 16:31 | XMS_ITS | Encounter Summary ---
Author Organization [facility] Address [address] [place] [address] Care Team Providers Care Senior Office Assistant Name Role Phone NavarroKisha crandall Primary Care Provider [phone] Encounter Details Date Type Department Care Team (Late st Contact Info) Description 05/15/2024 Telephone [facility] Dermatology Clinic 4th [address] [place] [address], [place] [address] Gourmet Coffee Attendant: Daisy Zhou MD [address] [place] [address] Social History Tobacco Use Types Packs/Day Years [...] encounter Miscellaneous Notes * Telephone Encounter - Glenys Thibodeaux MD - 06/05/2024 11:03 PM EST Luis Fernandox holly. Olivera is ok to continue * Telephone Encounter - Winter Marcus LPN - 06/04/2024 11:48 AM EST The nurse called me back and will fax us his med list as ours is in need of reconciliation. He willbe there until wound heals. He is on duloxetine 30 mg 3 x's/day; tizanidine is PRN Their fax is [phone] if we decide to order anything He is still on Doxy * Telephone Encounter - Winter Marcus LPN - 06/04/2024 11:17 AM EST The number in the chart is for pt's brother who is a automation engineering manager. Pt resides at [facility]. I called the facility at [phone] and LM for the floor nurse to call me back * Telephone Encounter - Glenys Thibodeaux MD - 05/18/2024 11:13 PM EST Great, thanks team! I heard back from Dr. Vasquez (ID) re: IV antibiotic recs for David perioperatively. Her suggestion is to do ceftriaxone 2 grams IV daily plus linezolid 600 mg BID PO while inpatient, to cover for MRSA. If primary team or derm consult team could also obtain a nasal swab for MRSA PCR to see if he is colonized that would be great. When he needs to transition to PO, she suggested combiningg Linezolid plus cipro 500mg BID. David is maxxed out on immunomodulators so I hopethese antibiotics will help set him up for success with his big surgery! * Telephone Encounter - Daisy Bravo MD - 05/15/2024 3:21 PM EST Anjel from Internal Medicine paged on 05/15/24 at 2:11 pm regarding clarification of patient's currentantibiotic regimen ahead of planned/direct admission for Plastic Surgery deroofing of the right buttock this evening. We (Dr. Cooper and I) informed them that the patient should continue his currentantibiotic regimen of Bactrim 800/160 mg twice daily and Linezolid 600 mg twice daily (for 6 week total course). documented in this encounter Plan of Treatment Upcoming Encounters Date Type Department Care Team (Late st Contact Info) Description 07/23/2024 3:15 PM EDT Office Visit [facility] D[facility]atology Clinic 4th Floor [address] [facility], [place] [address] Gourmet Coffee Attendant: Glenys Zee MD [address] [place] [phone] documented as of this encounter Visit Diagnoses Not on filedocumented in this encounter Care Teams Senior Office Assistant Relationship Specialty Start Date End Date Navarro Kisha [facility] [place] [address] PCP - [facility] [address] [place] [address] Academic Primary Care Attending 05/14/22 Dr Marylou Vargas [address] [place] [address] Neurology 07/31/22 Dr Waldo Cortez [address] [place] [address] Referring Physician 07/31/22 documented as of this encounter
--- OUTSIDE RECORDS SUMMARY | 2024-06-19 16:31 | XMS_ITS | Encounter Summary ---
Author Organization [facility] Address [address] [place] [address] Care Team Providers Care Teacher Music Name Role Phone NavarroKisha crandall Primary Care Provider [phone] Reason for Visit * Reason Onset Date Comments Prior Authorization 05/22/2024 PA approval for Ilaris 150mg/ml, #06/09, through [employer], ([id number]), Effective 05/18/2024-05/18/2025, May/Must fill with [facility] pharmacy, Co-pay $0 Encounter Details Date Type Department Care Team (Late st Contact Info) Description 05/22/2024 Documentation [facility] [address]st [address] [place] [address] Kd Willis CPhT Prior Authorization ([place] approval for Ilaris 150mg/ml, #06/09, through [employer], ([id number]), Effective 05/18/2024-05/18/2025, May/Must fill with [facility] pharmacy, Co-pay $0) Social History Tobacco Use Types Packs/Day Years [...] Description 07/23/2024 3:15 PM EDT Office Visit [facility] 4th [address] [place] [address], [place] [address] Artillery Or Naval Gunfire Observer: Glenys Zee MD [address] [place] [address] documented as of this encounter Visit Diagnoses Not on filedocumented in this encounter Care Teams Teacher Music Relationship Specialty Start Date End Date Kisha Navarro [address] [place] [address] PCP - [facility] [address] [place] [address] Academic Primary Care Attending 05/14/22 Dr Marylou Vargas [address] [place] [address] Neurology 07/31/22 Dr Waldo Cortez [address] [place] [address] Referring Physician 07/31/22 documented as of this encounter
--- OUTSIDE RECORDS SUMMARY | 2024-06-19 16:31 | XMS_ITS | Encounter Summary ---
Author Organization [facility] Address [address] [place] [address] Care Team Providers Care Winch Operator Name Role Phone MelanieKisha Primary Care Provider [phone] Encounter Details Date Type Department Care Team (Late st Contact Info) Description 05/25/2024 Telephone [facility] Dermatology [address] [place] [address] Dry Chain Operator: Cheko Horvath MD [address] [place] [address] Social History Tobacco Use Types Packs/Day Years [...] Telephone Encounter - Cheko Sharma MD - 05/25/2024 5:28 PM EST Tried calling the patient using a interpreter for the deaf (ID [id number]) for the 3rd time, including contacting the home and cell phone number, but was unable to reach him so I left a voice mail message stating our plan to switch his antibiotics from Augmentin and doxycyline to ciprofloxacin 500 mg twice daily and linezolid 600 mg twice daily for his hidradenitis suppurativa. I noticed, however, that both of these medications interact with two of patient's home medications (duloxetine and tizanidine) and so the I did not send the prescriptions to the pharmacy in order to discuss the plan again with Dr. Thibodeaux documented in this encounter Plan of Treatment Upcoming Encounters Date Type Department Care Team (Late st Contact Info) Description 07/23/2024 3:15 PM EDT Office Visit [facility]at[facility] [address]th [address] [place] [address], [place] [address] Dry Chain Operator: Glenys Zee MD [address] [place] [address] documented as of this encounter Visit Diagnoses Not on filedocumented in this encounter Care Teams Winch Operator Relationship Specialty Start Date End Date Melanie Kisha [facility] [place] [address] PCP - General 03/25/24 Derek Centeno [facility] [address] [place] [address] Academic Primary Care Attending 05/14/22 Dr Marylou Vargas [address] [place] [address] Neurology 07/31/22 Dr Waldo Cortez [address] [place] [address] Referring Physician 07/31/22 documented as of this encounter
--- NOTE | 2024-06-19 17:14 | ED.GENADULT ---
HPI - General Adult General Chief complaint: Wound/Laceration Stated complaint: WOUND ON BUTTOCK PER EMS Time Seen by Provider: 06/19/24 17:14 Source: patient and EMS Mode of arrival: EMS Limitations: no limitations History of Present Illness ED Provider: Miya Lay PA-C HPI narrative: Patient is a 39 year old assigned male at with a history of stroke resulting in right sided hemiparesis on eliquis, hidradenitis suppuritiva s/p excision of both buttocks at [email or web address] on 05/15/2024, presenting to the emergency department today with persistent non healing right leg wound, pain of the wound, and inability to care for himself at home. Patient states that he was recently here for this and placed at a rehab facility. Patient states that the rehab facility was treating him poorly and trying to cut his pain medication down significantly. Patient states that he asked them to send him back here and they sent him to [facility] where he signed out against medical advice and has his brother pick him up and bring him back home. States that his brother and family have been unable to help care for him so brought him back here. Patient denies any dizziness, lightheadedness, abdominal pain, nausea, vomiting, fever, chills, blurry vision, double vision, loss of vision, chest pain, difficulty breathing, shortness of breath, back pain, night sweats, pain with urination, increased urinary frequency, increased urinary urgency, blood in his urine or stool, syncope or a near syncopal episode, recent trauma or falls, bowel incontinence, bladder incontinence, or any other complaints at this time. Relieving factors: none Exacerbating factors: none Associated symptoms: denies other symptoms Treatments prior to arrival: none Related Data Home Medications ?Medication ?Instructions ?Recorded ?Confirmed acetaminophen 500 mg tablet 1,000 mg PO Q8H PRN Pain 02/17/23 05/26/24 baclofen 20 mg tablet 20 mg PO QID 02/17/23 05/25/24 canakinumab (PF) 150 mg/mL 150 mg subcut Q28D 02/17/23 05/26/24 subcutaneous solution (Ilaris (PF)) clindamycin phosphate 1 % topical 1 appl topical BID PRN flared 02/17/23 05/25/24 gel lesion prophylaxis hydroxyurea 500 mg capsule 500 mg PO DAILY 03/18/24 05/25/24 tizanidine 2 mg tablet 4 mg PO Q8H PRN muscle spasm 03/18/24 05/25/24 nystatin 100,000 unit/gram topical 1 appl topical BID-TID 05/22/24 05/25/24 powder multivitamin 1 tab PO DAILY 05/25/24 05/25/24 Previous Rx's ?Medication ?Instructions ?Recorded apixaban 5 mg tablet (Eliquis) 5 mg PO BID #60 tabs 03/25/24 docusate sodium 100 mg capsule 100 mg PO BID #180 caps 03/25/24 gabapentin 800 mg tablet 800 mg PO TID #90 tabs 04/06/24 pantoprazole 40 mg tablet,delayed 40 mg PO DAILY@0630 #90 tabs 04/06/24 release cholecalciferol (vitamin D3) 25 25 mcg PO DAILY #90 tabs 04/29/24 mcg (1,000 unit) tablet (Vitamin D3) ferrous sulfate 325 mg (65 mg 325 mg PO DAILY #90 tabs 04/29/24 iron) tablet oxycodone 30 mg tablet 30 mg PO Q6H PRN pain 7 days #28 05/05/24 tabs ascorbic acid (vitamin C) 500 mg 500 mg PO DAILY #90 tabs 05/22/24 tablet (Vitamin C) duloxetine 30 mg capsule,delayed 30 mg PO BID #180 caps 05/22/24 release folic acid 1 mg tablet 1 mg PO DAILY #90 tabs 05/22/24 oxycodone 30 mg tablet 30 mg PO Q6H PRN pain #12 tabs 05/29/24 Allergies Allergy/AdvReac Type Severity Reaction Status Date / Time No Known Allergies Allergy Verified 06/19/24 15:30 Review of Systems Constitutional: Constitutional: Reports no additional constitutional complaints, Denies chills, Denies fever(s) and Denies night sweats Eyes: Eyes: Reports no additional eye complaints, Denies blurry vision, Denies change in vision, Denies diplopia, Denies eye discharge, Denies loss of vision and Denies eye pain ENT: Denies dizziness Cardiovascular: Cardiovascular: Reports no additional cardiovascular complaints, Denies chest pain, Denies lightheadedness, Denies Loss of Consciousness and Denies dyspnea Respiratory: Respiratory: Reports no additional respiratory complaints and Denies dyspnea Gastrointestinal: Gastrointestinal: Reports no additional gastrointestinal complaints, Denies abdominal pain, Denies melena, Denies hematochezia, Denies change in bowel habits and Denies change in stool character Genitourinary: Genitourinary: Reports no additional male genitourinary complaints, Denies hematuria, Denies oliguria, Denies difficulty urinating, Denies dysuria, Denies urinary frequency, Denies urinary hesitancy, Denies urinary incontinence and Denies urinary urgency Musculoskeletal: Musculoskeletal: Reports no additional musculoskeletal complaints, Denies numbness and Denies tingling Comments: chronic right sided deficit secondary to previous stroke Integumentary/Breasts: Comments: non healing right thigh wound Neurologic: Denies dizziness, Denies loss of vision, Denies numbness and Denies tingling Psychiatric: Psychiatric: Reports no additional psychiatric complaints Endocrine: Endocrine: Reports no additional endocrine complaints Hematologic/Lymphatic: Hematologic/Lymphatic: Reports no additional hematologic/lymphatic complaints Allergic/Immunologic: Allergic/Immunologic: Reports no additional allergic/immunologic complaints [facility] Past Medical History Attestation statement: The following information was validated with the patient. (all information validated with the patient's mother) Source: old records reviewed, obtained from family (patient's mother provided additional history and confirmed the history provided by the patient) and nursing notes reviewed Medical History Hidradenitis suppurativa Hidradenitis Imbalance Neuropathy Anxiety and depression GERD (gastroesophageal reflux disease) Hypertension CVA (cerebral vascular accident) Opiate abuse, continuous Surgical History No pertinent past surgical history Family History Family History Mother Mental health disorder Asthma Thyroid disease Cervical cancer Maternal Grandmother Mental health disorder Asthma Diabetes Cardiovascular disease Thyroid disease Father Substance abuse Hypertension High cholesterol Cardiovascular disease Clotting disorder Maternal Grandfather Diabetes Cardiovascular disease Paternal Grandfather Clotting disorder Social History Social History Household Members: Family Housing: Apartment Are you a primary plant health care technician to a significant other at home: No Do you presently have visiting nurse or other home services: Yes Alcohol intake: never Patient Tobacco Use Status: Never used Tobacco Cigarettes Per Day: 4 e-Cigarette/Vaping Use: Never Used Second Hand Smoke Exposure: No Substance Use Type: Marijuana Advance Directives: Yes Advance Directives on File: Yes Advance Directives Date on File: 02/19/23 Do you have a plan to hurt others: No Plan service: No Current occupational status: disabled Cognitive needs: No Hearing needs: No Vision needs: No Physical Exam ED Vital Signs: Vital Signs - 24 hr 06/19/24 14:56 06/19/24 15:30 06/19/24 16:00 Temperature 98.1 F 98.1 F Pulse Rate 84 73 67 Respiratory Rate 16 18 19 Blood Pressure 94/55 L 122/49 L 122/49 L Pulse Oximetry 95 99 96 Oxygen Delivery Method Room Air Room Air Room Air 06/19/24 18:00 Temperature Pulse Rate 87 Respiratory Rate 18 Blood Pressure 124/63 Pulse Oximetry 99 Oxygen Delivery Method Room Air BMI result Body Mass Index 31.5 Const General: cooperative, no acute distress, alert and awake Nutritional Appearance: well nourished Orientation/consciousness: patient oriented x3 Limitations: no limitations HENMT Head: Yes normal to inspection and Yes atraumatic Ears: hearing grossly normal bilaterally and external ears normal General nose exam: Normal external nose present, no nasal discharge noted and no epistaxis Face and sinus: Yes normal facial exam, No abrasion and No laceration Mouth: Normal oral and palatal mucosa present, no drooling and no muffled voice Eyes General: appearance normal, both eyes and all related structures Periorbital: periorbital findings normal Eyelids: Yes eyelids normal Conjunctivae: conjunctivae normal Pupils: Equal, round and reactive pupils present EOM: EOMs intact bilaterally Neck Neck: Yes normal visual inspection, Yes full ROM and Yes no lymphadenopathy Chest Chest palpation & inspection: normal inspection of the chest Resp Effort & Inspection: normal respiratory effort and able to speak in complete sentences GI Inspection: Yes normal to inspection Neuro Other: right sided hemiparesis after CVA General: patient oriented x3 Cranial nerves: Yes Equal, round and reactive pupils present Cognition (Neuro): normal cognition Extrem Other: right sided hemiparesis per his baseline General: Yes capillary refill normal Psych Appearance: grossly normal Mental Status: mental status grossly normal Affect: normal affect Attitude: cooperative Thought process: Normal thought process present Thought content: Normal thought content present Insight: Good insight present (Psych) Medications Administered Discontinued Medications Generic Name Dose Route Start Last Admin Trade Name Chris PRN Reason Stop Dose Admin Oxycodone HCl 30 mg 06/19/24 17:51 06/19/24 18:11 Oxycodone Hcl Immed Release 15 Mg Tablet PO 06/19/24 17:52 30 mg ONCE ONE Administration Medical Decision Making Medical Decision Making [facility] Narrative: Patient is a 39 year old assigned male at with a history of stroke resulting in right sided hemiparesis on eliquis, hidradenitis suppuritiva s/p excision of both buttocks at [email or web address] on 05/15/2024, presenting to the emergency department today with persistent non healing right leg wound, pain of the wound, and inability to care for himself at home. Patient's physical exam was as noted in the physical exam portion of this note. Patient's blood work was unremarkable. I spoke with the wound team who recommended xeroform on the wound with every other day changes and outpatient follow up. I explained my physical exam findings as well as all test results to the patient and the patient's mother. I answered all questions asked by the patient and the patient's mother. Caes management had an extensive conversation with the patient and his mother and the plan now is to have VNA arranged and have the patient discharge home. Patient awaiting confirmation of disposition by case management. Differential Diagnosis Differential Diagnoses: The differential diagnosis associated with the presentation includes Chronic non healing wound Inability to care for self Admission/Observation Consideration of admission/observation: Escalation of care including admission/observation considered Patient would have been admitted to the hospital had his work up had any findings where hospital admission was appropriate and his clinical presentation warranted hospital admission. Consult Healthcare Provider Management of the patient was discussed with: Manager Order (spoke with the wound team as noted in the MDM Rationale portion of this note.) Lab Data [facility] Lab Attestation statement: I reviewed the patient's lab results. My interpretation of these results are in the MDM Rationale portion of this note. 06/19/24 18:13 Labs: Lab Results 06/19/24 Range/Units 18:13 WBC 6.6 (4.8-10.8) X10*3/uL RBC 3.96 L (4.60-5.80) X10*6/uL Hgb 10.8 L (14.0-18.0) g/dl Hct 34.0 L (42.0-52.0) % MCV 85.9 (80.0-98.0) fL MCH 27.3 (27.0-33.0) pg MCHC 31.8 (31.0-36.0) g/dl RDW 21.0 H (11.0-16.0) % Plt Count 409 H (160-400) X10*3/uL MPV 8.3 L (9.4-12.4) fL Immature Gran % (Auto) 0.3 (0.0-0.4) % Neut % (Auto) 56.1 (45-73) % Lymph % (Auto) 30.9 (20-40) % Trego % (Auto) 9.7 (2-11) % Eos % (Auto) 2.7 (0-4) % Baso % (Auto) 0.3 (0-2) % Lymph # (Auto) 2.0 (1.2-4.9) X10*3/uL Trego # (Auto) 0.6 (0.1-1.2) X10*3/uL Eos # (Auto) 0.2 (0.0-0.4) X10*3/uL Baso # (Auto) 0.0 (0.0-0.2) X10*3/uL Abs Immat Gran (auto) 0.02 (0.00-0.03) X10*3/uL Absolute Neuts (auto) 3.7 (2.0-8.3) x10*3/uL Absolute Nucleated RBC 0.000 (0.0-0.012) X10*3/uL Nucleated RBC % (auto) 0.0 (0.0-0.2) /100WBC Independent Historian Clinical information obtained from an independent historian. History obtained from or confirmed by: EMS (EMS provided additional history and confirmed the history provided by the patient.) and Other (Patient's mother provided additional history and confirmed the history provided by the patient) Discharge Plan Discharge Clinical Impression: Chronic wound Patient Disposition: Still a Patient Additional Instructions: Your wound should be dressed with Xeroform and changed every other day. Follow up with the wound center. Follow up with your primary care provider. Return to the emergency department immediately if your symptoms worsen or if you develop any dizziness, shortness of breath, difficulty breathing, chest pain, blurry vision, loss of vision, nausea, vomiting, abdominal pain, fever, chills, back pain, or any other complaints. Prescriptions: No Action cholecalciferol (vitamin D3) [Vitamin D3] 25 mcg (1,000 unit) tablet 25 mcg PO DAILY Qty: 90 0RF ferrous sulfate 325 mg (65 mg iron) tablet 325 mg PO DAILY Qty: 90 0RF oxycodone 30 mg tablet 30 mg PO Q6H PRN (Reason: pain) 7 Days Qty: 28 0RF hydroxyurea 500 mg capsule 500 mg PO DAILY tizanidine 2 mg tablet 4 mg PO Q8H PRN (Reason: muscle spasm) multivitamin 1 tab PO DAILY oxycodone 30 mg tablet 30 mg PO Q6H PRN (Reason: pain) Qty: 12 0RF Rx Instructions: Partial Fill upon patient request. clindamycin phosphate 1 % gel 1 appl topical BID PRN (Reason: flared lesion prophylaxis) Ilaris (PF) 150 mg/mL solution 150 mg subcut Q28D baclofen 20 mg tablet 20 mg PO QID acetaminophen 500 mg Tablet 1,000 mg PO Q8H PRN (Reason: Pain) gabapentin 800 mg tablet 800 mg PO TID Qty: 90 2RF pantoprazole 40 mg tablet,delayed release (DR/EC) 40 mg PO DAILY@0630 Qty: 90 2RF Eliquis 5 mg tablet 5 mg PO BID Qty: 60 3RF docusate sodium 100 mg capsule 100 mg PO BID Qty: 180 2RF nystatin 100,000 unit/gram powder 1 appl topical BID-TID ascorbic acid (vitamin C) [Vitamin C] 500 mg tablet 500 mg PO DAILY Qty: 90 2RF folic acid 1 mg tablet 1 mg PO DAILY Qty: 90 2RF duloxetine 30 mg capsule,delayed release(DR/EC) 30 mg PO BID Qty: 180 2RF Referrals: [facility] [Provider Group] (Call to establish and follow up with a primary care provider. If you already have a primary care provider, please follow up with them.) [facility] Primary CareJennifer [Provider Group] (Call to establish and follow up with a primary care provider. If you already have a primary care provider, please follow up with them.) [facility] Primary Brandon Reis [Provider Group] (Call to establish and follow up with a primary care provider. If you already have a primary care provider, please follow up with them.) [facility] Primary CareVivek [Provider Group] (Call to establish and follow up with a primary care provider. If you already have a primary care provider, please follow up with them.) [facility] Wound Care Management [Provider Group] (Call to establish and follow up with the wound center. ) Print Language: Turkish
[2024-06-19 18:00] VITALS: BP 124/63; PULSE 87; RESP 18; O2SAT 99
[2024-06-19] MEDS: oxyCODONE HCl Immed Release 15 MG TABLET 30 MG PO (18:11)
[2024-06-19 18:26] LABS: MANUAL DIFF FLAG NO
[2024-06-19 18:28] LABS: Basophils Percent Auto 0.3 % (0-2); Eosinophils Absolute Auto 0.2 X10*3/uL (0.0-0.4); Eosinophils Percent Auto 2.7 % (0-4); Hemoglobin 10.8 g/dl (14.0-18.0); Imm Gran Abs Auto 0.02 X10*3/uL (0.00-0.03); Imm Gran Pct Auto 0.3 % (0.0-0.4); Lymphocytes Percent Auto 30.9 % (20-40); Mean Corpuscular HGB Conc 31.8 g/dl (31.0-36.0); Mean Corpuscular Hemoglobin 27.3 pg (27.0-33.0); Mean Corpuscular Volume 85.9 fL (80.0-98.0); Mean Platelet Volume 8.3 fL (9.4-12.4); Monocytes Absolute Auto 0.6 X10*3/uL (0.1-1.2); Monocytes Percent Auto 9.7 % (2-11); Neutrophils Absolute Auto 3.7 x10*3/uL (2.0-8.3); Neutrophils Percent Auto 56.1 % (45-73); Platelet Count 409 X10*3/uL (160-400); Red Blood Count 3.96 X10*6/uL (4.60-5.80); White Blood Count 6.6 X10*3/uL (4.8-10.8)
[2024-06-19 19:48] LABS: C Reactive Protein 1.86 mg/dL (< or = 0.50)
[2024-06-19 19:56] LABS: Alanine Aminotransferase < 6 U/L (0-40); Albumin Level 3.3 g/dL (3.5-5.0); Alkaline Phosphatase 108 U/L (39-117); Anion Gap 14 (12-20); Aspartate Amino Transferase 15 U/L (5-37); Blood Urea Nitrogen 20 mg/dL (9-16); Calcium 8.5 mg/dL (8.4-10.2); Carbon Dioxide 24 mmol/L (22-29); Chloride 106 mmol/L (96-108); Estimated Glomerular Filt Rate > 60; Glucose Random 123 mg/dL (60-115); Sodium 140 mmol/L (135-145); Total Protein 6.7 g/dL (6.5-8.0)
[2024-06-19 20:00] VITALS: BP 109/72; PULSE 71; RESP 18; O2SAT 98
[2024-06-19 20:16] LABS: Erythrocyte Sedimentation Rate 25 MM/HR (0-15)
[2024-06-19 20:21] LABS: Bilirubin Total 0.2 mg/dL (0.0-1.0)
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
[2024-06-20 00:22] VITALS: BP 91/48; PULSE 63; RESP 16; TEMP 36.2; O2SAT 98
--- NOTE | 2024-06-20 00:22 | MHC.EDTECH ---
pt states he has pain, RN aware
[2024-06-20] MEDS: oxyCODONE HCl Immed Release 15 MG TABLET 30 MG PO ×2 (01:25→10:48)
[2024-06-20 01:26] VITALS: BP 106/65; PULSE 68; RESP 20; O2SAT 98
--- NOTE | 2024-06-20 02:46 | PC.NURSE ---
sleeping comfortably--waiting for disposition by case management. states dc to home from rehab facililty; will be getting PT at home--wheelchair bound as of now due to right sided paresis from cva.
[2024-06-20 06:45] VITALS: BP 104/61; PULSE 67; RESP 16; TEMP 36.8; O2SAT 97
[2024-06-20 08:27] VITALS: BP 108/65; PULSE 70; RESP 12; TEMP 36.7; O2SAT 98
--- NOTE | 2024-06-20 09:59 | MHC.CM.PN ---
Addendum entered by Glenys Figueroa RN 06/20/24 12:42: leonardo for bls transport at 1:30pm Addendum entered by Glenys Figueroa RN 06/20/24 11:18: CM CONTACTED PT'S MOTHER BEVERLY AT NUMBER ON FILE TO VERIFY SOMEONE WOULD BE HOME, BEVERLY REPORTS SHE WILL BE HOME, VERIFIES [facility] ON FILE, AWARE [facility] WILL PROVIDE SN/WOUND CARE FOR PT AND BEVERLY REPORTS PT'S BROTHER HEENA WILL CONTACT PCP/[facility] ON SATURDAY, PT WILL NEED BLS FOR TRANSPORT HOME. Addendum entered by Glenys Figueroa RN 06/20/24 10:55: [facility] ABLE TO OFFER SN FOR PT, ED PROVIDER NOTIFIED VIA [employer]. Original Note: [facility] STILL WORKING ON SECURING VNA, [facility] HAS CONCERNS REGARDING FAMILES ABILITY TO ASSIST PT, CM AWAITING CONFIRMATION THEY CAN PROVIDE SERVICES FOR PT.
[2024-06-20 12:30] VITALS: BP 109/70; PULSE 77; RESP 14; TEMP 36.7; O2SAT 98
[2024-06-20 13:24] VITALS: BP 109/70; PULSE 77; RESP 14; TEMP 36.7; O2SAT 98
== END 2024-06-20 13:26 | disposition home or self-care (01) ==
PROVIDERS: Physician Assistant Medical; Emergency Provider Emergency Medicine; PCP Nurse Practitioner Family
DX: S81.801A Unspecified open wound, right lower leg, initial encounter (principal); X58.XXXA Exposure to other specified factors, initial encounter; M79.604 Pain in right leg; Y93.9 Activity, unspecified; Y92.9 Unspecified place or not applicable; Y99.8 Other external cause status; Z79.899 Other long term (current) drug therapy; Z79.01 Long term (current) use of anticoagulants
CPT/HCPCS: 36415; 80053; 85025; 85652; 86140; 99283; 99284

== ENCOUNTER 2024-06-25 20:20 | Emergency (ER) | payer OTHER, SELFPAY ==
[2024-06-25 20:41] VITALS: BP 110/66; PULSE 72; RESP 16; TEMP 37; O2SAT 96
[2024-06-25 20:45] VITALS: BP 140/82; PULSE 79; O2SAT 94
[2024-06-25 20:46] VITALS: BMI 26.8
--- OUTSIDE RECORDS SUMMARY | 2024-06-25 20:58 | XMS_ITS | Encounter Summary ---
Author Organization [facility] Address [address] [place] [address] Care Team Providers Care Printing Press Machine Operator Name Role Phone NavarroKisha crandall Primary Care Provider [phone] Encounter Details Date Type Department Care Team (Late st Contact Info) Description 05/15/2024 Telephone [facility] Dermatology Clinic [address]th [address] [place] [address], [place] [address] Print Production Manager: Daisy Zhou MD [address] [place] [address] Social History Tobacco Use Types Packs/Day [...] x's/day; tizanidine is PRN Their fax is [phone] if we decide to order anything He is still on Doxy * Telephone Encounter - Winter Marcus LPN - 06/04/2024 11:17 AM EST The number in the chart is for pt's brother who is a top lift and automatic window repairer. Pt resides at [facility]. I called the facility at [phone] and LM for the floor nurse to [...] Description 07/23/2024 3:15 PM EDT Office Visit [facility] 4th Floor [address] [facility], [place] [address] Print Production Manager: Glenys Zee MD [address] [place] [address] documented as of this encounter Visit Diagnoses Not on filedocumented in this encounter Care Teams Printing Press Machine Operator Relationship Specialty Start Date End Date Navarro Kisha [facility] [place] [address] [facility] - [facility] [address] [place] [address] Academic Primary Care Attending 05/14/22 Dr Marylou Vargas [address] [place] [address] Neurology 07/31/22 Dr Waldo Cortez [address] [place] [address] Referring Physician 07/31/22 documented as of this encounter
--- OUTSIDE RECORDS SUMMARY | 2024-06-25 20:58 | XMS_ITS | Clinical Summary ---
Author Organization [facility] Address [address] [place] [address] Care Team Providers Care Engagement Lead Name Role Phone Kisha Navarro Primary Care Provider [phone] Allergies No known active allergies Medications ferrous sulfate 325 mg (65 mg iron) tablet Take 325 mg by mouth 2 times a day with meals. Active gabapentin (NEURONTIN) 800 mg tablet Take 800 mg by mouth 3 times a day. Active clindamycin (CLINDAGEL) 1 % gelIndications: Hidradenitis suppurativa Apply topically to the affected area 2 times a day. Apply to HS-prone lesions upto twice daily for prevention of new/flared lesions 60 g 11 3 Active docusate sodium (COLACE) 100 mg capsule Take 1 capsule (100 mg total) by mouth 2 times a day. [address] (CYMBALTA) 30 mg capsule Take 30 mg by mouth 2 times a day. 3 Active hydroxyurea (HYDREA) 500 mg capsule Take 500 mg by mouth once a day. 3 Active tiZANidine (ZANAFLEX) 2 mg tablet Take 4 mg by mouth every 8 hours as needed for muscle spasms. 3 Active cholecalciferol (VITAMIN D3) 1,000 unit tablet Take 1,000 Units by mouth once a day. 4 Active ascorbic acid 500 mg tablet Take 500 mg by mouth once a day. [address] (PROTONIX) 40 mg tablet Take 40 mg by mouth once a day. 4 Active baclofen (LIORESAL) 20 mg tablet Take 20 mg by mouth 4 times a day. Active syringe with needle (BD Luer-Jessica Syringe) 3 mL 18 x 1 1/2 syringeIndicati ons:Hidradeniti s suppurativa Please use to draw up Ilaris every 28 days. 4 each 4 02/20/2024 9:25 PM EDT 4 Active needle, disp, 27 gauge (BD Regular Bevel Hutchinson) 27 gauge x 1/2 needleIndicatio ns:Hidradenitis suppurativa Please use to inject Ilaris every 28 days. 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 Patient is [...] course of abx. 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 Admitted to plastic surgery team with medicine [...] upon discharge. -S/p OR for debridement on 3 -Initiated doxy 100 BID and augmentin 875 [...] course of abx. 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 Admitted to plastic surgery team with medicine consulted for comanagement. Pt afebrile, VSS. Asymptomatic. No leukocytosis. Does not appear ill/septic. There was discussion with dermatology and infectious disease in regards to appropriate antibiotic coverage for this patient. He was ultimately determined that patient should be transition to doxycycline and Augmentin with plan to complete the 6-week course upon discharge. -S/p OR for debridement /3 -Initiated doxy 100 BID and augmentin 875 [...] planned for 6 week course of abx. Mary held 3 days COMMERCIAL LOAN REVIEWER. Admitted to plastic surgery team with medicine consulted for comanagement. Pt afebrile, VSS. Asymptomatic. No labs yet. Does not appear ill/septic. Clarified with dermatology that patient should remain on linezolid and Bactrim to complete a total 6-week course of antibiotics. 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 It sounds like he was in an [...] him and his parents. 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 It sounds like he was in an [...] Department Care Team Description 05/25/[address] [facility] Dermatology [address] [place] [address] Ebay Reseller: Cheko Horvath MD 05/22/2024 Telephone 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 4th Floor [address] [place] [phone] Ebay Reseller: Glenys Zee MD 05/15/2024 3:23 PM EST Anesthesia Event [facility] Operating Room [address] [place] [address] Felipe Arroyo MD Waldman, Julia A., 05/15/2024 12:30 PM EST - 05/15/2024 2:55 PM EST Surgery [facility] Operating Room [address] [place] [address] Cynthia Gill MD DEBRIDEMENT OF SUBCUTANEOUS TISSUE, (INCLUDING EPIDERMIS AND DERMIS, IF PERFORMED); FIRST 20 SQUARE CM OR LESS [12462 (CPT??)] 05/15/2024 11:01 AM EST - 05/19/2024 2:01 PM EST Hospital Encounter [facility] [address] [place] [address] Cynthia Gill MD Hidradenitis suppurativa Discharge Disposition: Home with Services (06) 05/15/2024 Telephone [facility] [address]th [address] [place] [phone] Ebay Reseller: Daisy Zhou MD 05/14/2024 myChart Message [facility] [address]th [address] [place] [phone] Ebay Reseller: Glenys Zee MD antibiotics 05/14/2024 Orders Only [facility] [address] [phone] Ebay Reseller: Glenys Zee MD Hidradenitis suppurativa (Primary Dx); Prophylactic antibiotic 04/23/2024 3:15 PM EST Office Visit [facility] [address] [phone] Ebay Reseller: Glenys Zee MD Hidradenitis suppurativa (Primary Dx); Candidal intertrigo 03/25/2024 Telephone [facility] [address] [place] [address] Cynthia Gill MD from Last 3 Months Family History [...] Description 07/23/2024 3:15 PM EDT Office Visit [facility] 4th Floor [address] [facility], [place] [address] Ebay Reseller: Glenys Zee MD [address] [place] [address] Health Maintenance Due Date Last Done Comments Controlled Substance Agreement 1986 Varicella Vaccines (1 of 2 - 13+ 2-dose series) 1999 Hepatitis B Vaccines (1 of 3 - 19+ 3-dose series) 2005 Pneumococcal Vaccine: Pediat juanita (0-5 Years) and At-Risk Patients (6-50 Years) (1 of 2 - PCV) 2005 COVID-19 Vaccine ( - 2023-2 5 season) 2024 Alcohol/Substance Use [...] Completed 02/08/2024, 05/18/2022 Procedures * Due to [place] state law, this organization might not be [...] to Health Maintenance Results * Due to [place] Resultly law, this organization might not be sharing negative HIV tests. * (ABNORMAL) Hepatic Function Panel (05/17/2024 11:20 AM EST) Only the most recent of2 resultswithin the time period is included. Total Protein 6.6 6.0 - 8.0 g/dL 05/17/2024 12:13 PM EST [facility] Albumin 3.2(L) 3.5 - 5.2 g/dL 05/17/2024 12:13 PM EST [facility] Globulin, Total 3.4 2.1 - 4.2 g/dL 05/17/2024 12:13 PM EST [facility] Bilirubin, Total <0.2(L) 0.2 - 1.2 mg/dL 05/17/2024 12:13 PM EST [facility] Bilirubin, Direct <0.1 <=0.4 mg/dL 05/17/2024 12:13 PM EST [facility] Alkaline Phosphatase 123 35 - 129 U/L 05/17/2024 12:13 PM EST [facility] AST 16 10 - 40 U/L 05/17/2024 12:13 PM EST [facility] ALT 7(L) 10 - 40 U/L 05/17/2024 12:13 PM EST [facility] Bilirubin, Indirect 05/17/2024 12:13 PM EST [facility] Comment:Unable to calculate A/G Ratio 0.9(L) 1.5 - 3.0 05/17/2024 12:13 PM EST [facility] Blood Structure of peripheral vein / Unknown Venipuncture / Unknown 05/17/2024 11:20 AM EST 05/17/2024 11:40 AM EST us Cynthia Gill MD LAB BLOOD ORDERABLES Final Result [facility] [address] [place] [address], * (ABNORMAL) CBC (05/16/2024 4:45 AM EST) Pathologist [facility] WBC 6.3 3.8 - 10.8 10*3/uL 05/16/2024 5:01 AM EST [facility] RBC 3.77(L) 4.20 - 5.80 10*6/uL 05/16/2024 5:01 AM EST [facility] Hemoglobin 9.5(L) 13.2 - 17.1 g/dL 05/16/2024 5:01 AM EST [facility] Hematocrit 31.6(L) 38.5 - 50.0 % 05/16/2024 5:01 AM EST [facility] MCV 83.8 80.0 - 100.0 fL 05/16/2024 5:01 AM EST [facility] MCH 25.2(L) 27.0 - 33.0 pg 05/16/2024 5:01 AM EST [facility] MCHC 30.1(L) 32.0 - 36.0 g/dL 05/16/2024 5:01 AM EST [facility] RDW 16.2(H) 11.0 - 15.0 % 05/16/2024 5:01 AM EST [facility] Platelets 529(H) 140 - 400 10*3/uL 05/16/2024 5:01 AM EST [facility] MPV 8.7 7.5 - 12.5 fL 05/16/2024 5:01 AM EST [facility] Blood Structure of peripheral vein / Unknown Venipuncture / Unknown 05/16/2024 4:45 AM EST 05/16/2024 4:53 AM EST us Cynthia Gill MD LAB BLOOD ORDERABLES Final Result [facility] [address] [place] [address], [place] * (ABNORMAL) Basic metabolic panel (05/16/2024 4:45 AM EST) Only the most recent of2 resultswithin the time period is included. NA 141 135 - 145 mmol/L 05/16/2024 5:22 AM EST [facility] [place] [facility] K 4.5 3.5 - 5.3 mmol/L 05/16/2024 5:22 AM EST [facility] Cl 104 98 - 107 mmol/L 05/16/2024 5:22 AM EST [facility] [place] [facility] CO2 25 22 - 32 mmol/L 05/16/2024 5:22 AM EST [facility] BUN 13 7 - 23 mg/dL 05/16/2024 5:22 AM EST [facility] Creatinine 0.77 0.60 - 1.30 mg/dL 05/16/2024 5:22 AM EST [facility] [place] [facility] Glucose 119(H) 65 - 99 mg/dL 05/16/2024 5:22 AM EST [facility] [place] [facility] Calcium 8.4(L) 8.6 - 10.5 mg/dL 05/16/2024 5:22 AM EST [facility] [place] [facility] Anion Gap 12 5 - 15 05/16/2024 5:22 AM EST [facility] [place] [facility] eGFR >90 >=60 mL/min/1. 73m2 05/16/2024 5:22 AM EST [facility] Comment:The estimated glomer ular filtration rate (eGFR) is calculated using a new formula developed by the NKF-ASN task force to eliminate race-based correction factors. The new formula uses serum/plasma creatinine, age, and gender to determine eGFR. A value below 60mls/min might indicate kidney disease and will be flagged. For additional information, see aJtinder chung al, Am J Kidney Dis. 2021;79(2):268- 288, A Unifying Approach for GFR estimation: Recommendations of the NKF-ASN Task Force on Reassessing the Inclusion of Race in Diagnosing Kidney Disease . Blood Structure of peripheral vein / Unknown Venipuncture / Unknown 05/16/2024 4:45 AM EST 05/16/2024 4:54 AM EST us Cynthia Gill MD LAB BLOOD ORDERABLES Final Result [facility] [address] [place] [address], [place] * (ABNORMAL) CBC Auto Differential (05/15/2024 [...] 0.03 <=0.03 10*3/uL 05/15/2024 9:35 PM EST [facility] Lymphocyte # [...] 0.0 /100 WBCs 05/15/2024 9:35 PM EST [facility] nRBC # <0.01 <0.01 10*3/uL 05/15/2024 9:35 PM EST [facility] Blood Structure of peripheral vein / Unknown Venipuncture / Unknown 05/15/2024 9:20 PM EST 05/15/2024 9:29 PM EST Cynthia Gill MD LAB BLOOD ORDERABLES Final Result [facility] [address] [place] [address], * Blood Culture, Peripheral #2 (05/15/2024 9:20 PM EST) Only the most recent of2 resultswithin the time period is included. Culture No growth after 5 days 05/20/2024 11:19 PM EST [facility] Blood Structure of peripheral vein / Unknown Venipuncture / Unknown 05/15/2024 9:20 PM EST 05/15/2024 9:28 PM EST Narrative [facility] - 05/20/2024 11:19 PM EST [facility] Received Date: MICRO NUMBER: [id number] SPECIMEN QUALITY: Suboptimal SOURCE: BLOOD VENOUS, PERIPHERAL STATUS: FINAL COMMENT: Aerobic and anaerobic bottle received. Inspection of blood culture bottles indicates that an inadequate volume of blood may have been collected for the detection of sepsis. Cynthia Gill MD LAB MICROBIOLOGY - GENERAL ORDERABLES Final Result Performing Organization Address City/[facility] Co de Phone Number KAREN KOENIG [address] [facility] [address], [place] [address], [facility] [address] [facility] [address], [place] [address], [place] [phone] * Protime-INR (05/15/2024 9:20 PM EST) PT 11.0 9.6 - 12.4 Seconds 05/15/2024 9:48 PM EST [facility] INR 1.0 0.9 - 1.1 05/15/2024 9:48 PM EST [facility] Comment:The optimal therapeu tic INR range for patients treated with Vitamin K antagonists (VKAS, e.g., Warfarin) is 2.0 to 3.5. Discuss the desired range with your doctor/care team. Blood Structure of peripheral vein / Unknown Venipuncture / Unknown 05/15/2024 9:20 PM EST 05/15/2024 9:28 PM EST Cynthia Gill MD LAB BLOOD ORDERABLES Final Result Performing Organization Address City/[facility]/ZIP Co de Phone Number [facility] [address] [place] [address], * Magnesium (05/15/2024 9:20 PM EST) MG 2.1 1.6 - 2.4 mg/dL 05/15/2024 9:58 PM EST [facility] Blood Structure of peripheral vein / Unknown Venipuncture / Unknown 05/15/2024 9:20 PM EST 05/15/2024 9:29 PM EST Cynthia Gill MD LAB BLOOD ORDERABLES Final Result Performing Organization Address [facility] Co de Phone Number [facility] [address] [place] [address], * Tissue Exam (05/15/2024 5:05 PM EST) Final Diagnosis Soft Tissue, Right Buttock, Excision: - Skin with underlying cyst lined by stratified squamous epithelium, cyst rupture surrounded by granulation tissue, acute and chronic inflammation. Note: The findings are compatible with hidradenitis suppurativa in the appropriate clinical setting. [facility] 05/20/2024 3:09 PM EST [facility] Clinical History Pre-op diagnosis: Hidradenitis suppurativa [L73.2] [facility] 05/20/2024 3:09 PM EST [facility] Gross Description 1. [...] by areas of hemorrhage and possible necrosis. Nurse Ortho sections are submitted in cassettes [id number]-1E. [facility] MANUAL 05/20/2024 3:09 PM [facility] Gross Description User Grossing complete by Alicia Kaplan on 05/18/2024 10:30 AM [facility] MANUAL 05/20/2024 3:09 PM [facility] Embedded Images [facility] MANUAL 05/20/2024 3:09 PM EST [facility] Resulting Agency Case was signed out at [facility], Department of Pathology, [employer] 3 CLIA [id number] [facility] MANUAL 05/20/2024 3:09 PM [facility] Report Header Surgical Pathology Report ? Case: [id number] ? Authorizing Provider: ??Cynthia Gill MD ?Collected: ? 05/15/2024 1705 ? Ordering Location: ? [facility] ? Received: ?05/16/2024 0916 ? [facility] ? Operating Room ? Pathologist: ? Shani Dang MD ? Specimen: ?Buttock, Right, HS Excision Right Buttock ? 05/20/2024 3:09 PM EST [facility] LAB[facility] Tissue Structure of right buttock / Unknown 05/15/2024 5:05 PM EST 05/16/2024 9:16 AM EST Comment:Pre-op diagnosis: Hidradenitis suppurativa [L73.2] us Cynthia Gill MD LAB PATHOLOGY/CYTOLOGY ESPERANZA PERRY Final Result [facility] [address] [place] [address], [facility] LAB[facility]ORY [address] [place] [address], * Type and screen (05/15/2024 2:53 PM EST) ABO Blood Type A 05/15/2024 10:06 PM EST [facility] RH Type Positive 05/15/2024 10:06 PM EST [facility] Expiration Date/Time 2024-05-18 23:59 05/15/2024 10:06 PM EST [facility] Antibody Screen Negative 05/15/2024 10:06 PM EST [facility] Blood Structure of peripheral vein / Unknown Venipuncture / Unknown 05/15/2024 2:53 PM EST 05/15/2024 9:30 PM EST Cynthia Gill MD LAB BLOOD BANK TEST ORDERAB LES Edited Result - Final [facility] [address] [id number], * ECG 12 lead For Preop? Yes (05/15/2024 11:47 AM EST) Ventricular Rate EKG 56 BPM MUSE EKG Atrial Rate 56 BPM MUSE EKG RI Interval 174 ms MUSE EKG QRS Interval 106 ms MUSE EKG QT Interval 410 ms MUSE EKG QTC Interval 395 ms MUSE EKG P Scammon 19 degrees MUSE EKG R Scammon -28 degrees MUSE EKG T Wave Scammon -17 degrees MUSE EKG 05/15/2024 11:4 7 AM EST 05/15/2024 6:42 PM EST Impressions [facility] - 05/15/2024 6:42 PM EST SINUS BRADYCARDIA MINIMAL VOLTAGE CRITERIA FOR LVH, MAY BE NORMAL VARIANT T WAVE ABNORMALITY, CONSIDER ANTERIOR ISCHEMIA ABNORMAL ECG Confirmed by Shayan Wynne ([id number]) on 05/15/2024 6:42:01 PM us Judie Suarez NP ECG ORDERABLES Final Result [facility] E[facility] * Hepatitis C Antibody w/Reflex to HCV RNA, Quantitative PCR (07/12/2022 3:49 PM EST) Hepatitis C Antibody NON-REACT JOSELITO NON-REACT JOSELITO 07/13/2022 7:25 AM EST [facility] Signal To Cut-Off 0.05 <1.00 07/13/2022 7:25 AM EST [facility] Comment: HCV antibody was non-reactive. There is no laboratory evidence of HCV infection. In most cases, no further action is required. However, if recent HCV exposure is suspected, a test for HCV RNA (test code 58358) is suggested. For additional information please refer to http://education.[employer]/faq/TMX21k6 (This link is being provided for informational/ educational purposes only.) Blood Structure of peripheral vein / Unknown Venipuncture / Unknown 07/12/2022 3:49 PM EST 07/12/2022 3:49 PM EST [facility] 07/13/2022 7:25 AM EST [facility] Received Date: Glenys Thibodeaux MD LAB BLOOD ORDERABLES Final R esult [facility] [address] [facility] [address], [place] [address], [place] [phone] [facility] [address] [facility] [address], [place] [address], [place] [phone] from Last 3 Months or Most Recently Relevant to Health Maintenance Insurance [facility] MEDICAID Advance Directives Documents on File Type Date Recorded Patient Nurse Ortho Expl anation Health Care Proxy 05/15/2024 12:17 [...] Relationship Healthcare Agent Relationship Communication Olivia ward [facility] Health Care Agent [email or web address] William Guzmán-[facility] Care Agent Care Teams Engagement Lead Relationship Specialty Start Date End Date Kisha Navarro [address] [place] [phone] PCP - General 03/25/24 Derek Centeno [facility] [address] [place] [phone] Academic Primary Care Attending 05/14/22 Dr Marylou Vargas [address] [place] [phone] Neurology 07/31/22 Dr Waldo Cortez [address] [place] [address] Referring Physician 07/31/22
--- OUTSIDE RECORDS SUMMARY | 2024-06-25 20:58 | XMS_ITS | Encounter Summary ---
Author Organization [facility] Address [address] [place] [address] Care Team Providers Care Fig Caprifier Name Role Phone Kisha Navarro Primary Care Provider [phone] Encounter Details Date Type Department Care Team (Late st Contact Info) Description 05/14/2024 myChart Message [facility] Dermatology Clinic 4th [address] [place] [phone] Knit Goods Mender: Glenys Zee MD [address] [place] [address] antibiotics Social History Tobacco Use Types [...] Description 07/23/2024 3:15 PM EDT Office Visit [facility] 4th Floor [address] [place] [address] Knit Goods Mender: Glenys Zee MD [address] [place] [address] documented as of this encounter Visit Diagnoses Not on filedocumented in this encounter Care Teams Fig Caprifier Relationship Specialty Start Date End Date Kisha Navarro [address] [place] [address] PCP - General [facility] [address] [place] [address] Academic Primary Care Attending 05/14/22 Dr Marylou Vargas [address] [place] [address] Neurology 07/31/22 Dr Waldo Cortez [address] [place] [address] Referring Physician 07/31/22 documented as of this encounter
--- OUTSIDE RECORDS SUMMARY | 2024-06-25 20:58 | XMS_ITS | Referral Summary ---
Author Organization [facility] Address [address] [place] [address] Care Team Providers Care Associate Team Physician Name Role Phone MelanieSerafinKisha Primary Care Provider [phone] Encounters Date Type Department Care Team Description 05/25/2024 Telephone [facility] Dermatology [address] [place] [address] Bag Tester: Cheko Horvath MD 05/22/2024 Telephone [facility] Dermatology Clinic 4th Floor [address] [facility], [place] [phone] Bag Tester: Cheko Bae MD 05/22/2024 Documentation [facility] Building Dermatlogy Clinic 1st Floor [address] [place] [address] Kd Willis CPhT Prior Authorization ([place] approval for Ilaris 150mg/ml, #06/09, through [employer], ([id number]), Effective 05/18/2024-05/18/2025 , September/ fill with [facility] pharmacy, Co-pay $0) 05/15/2024 11:01 AM EST - 05/19/2024 2:01 PM EST Hospital Encounter [facility] [address] [place] [address] Cynthia Gill MD Hidradenitis suppurativa Discharge Disposition: Home with Services (06) 05/18/2024 Refill [facility] Dermatology [address] [phone] Bag Tester: Glenys Zee MD 05/15/2024 Telephone [facility] Dermatology Clinic [address] [place] [phone] Bag Tester: Daisy Zhou MD 05/15/2024 12:30 PM EST - 05/15/2024 2:55 PM EST Surgery [facility] Operating Room [address] [place] [address] Cynthia Gill MD DEBRIDEMENT OF SUBCUTANEOUS TISSUE, (INCLUDING EPIDERMIS AND DERMIS, IF PERFORMED); FIRST 20 SQUARE CM OR LESS [[id number] (CPT??)] 05/15/2024 3:23 PM EST Anesthesia Event [facility] Operating Room [address] [place] [address] Felipe Arroyo MD Waldman, Julia A., 05/14/2024 myChart Message [facility] Dermatology [address] [phone] Bag Tester: Glenys Zee MD antibiotics 05/14/2024 Orders Only [facility] Dermatology [address] [phone] Bag Tester: Glenys Zee MD Hidradenitis suppurativa (Primary Dx); Prophylactic antibiotic 04/23/2024 3:15 PM EST Office Visit [facility] Dermatology [address] [phone] Bag Tester: Glenys Zee MD Hidradenitis suppurativa (Primary Dx); Candidal intertrigo 03/25/2024 Telephone [facility] [address] [place] [address] Cynthia Gill MD from Last 3 Months Allergies No [...] 4 each 4 02/20/2024 9:25 PM EDT 06/25/202 4 Active needle, disp, 27 gauge (BD Regular Bevel Franklin) 27 gauge x 1/2 needleIndicatio ns:Hidradenitis suppurativa [...] mg twice daily was 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 Patient is [...] course of abx. Mary held 3 days COMPUTER SYSTEMS ADMINISTRATOR. Admitted to plastic surgery team with medicine [...] course of abx. Eliquis held 3 days COMPUTER SYSTEMS ADMINISTRATOR. Admitted to plastic surgery team with medicine [...] course of abx. Eliquis held 3 days COMPUTER SYSTEMS ADMINISTRATOR. 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 He speaks decent french, but his ability to convey his medical history is limited by his stroke, and his parents require a diplomatic interpreter/translator. It sounds like he was in an [...] him and his parents. He speaks decent french, but his ability to convey his medical history is limited by his stroke, and his parents require a diplomatic interpreter/translator. It sounds like he was in an [...] Date Resolved Date Tobacco dependence 01/09/2023 3 Social History Tobacco Use Types Packs/Day Years [...] 07/23/2024 3:15 PM EDT Office Visit [facility] Dermatology Clinic 4th Floor [address] [facility], [place] [phone] Bag Tester: Glenys Zee MD [address] [place] [address] Procedures * Due to [place] state law, this organization might not be [...] to Health Maintenance Results * Due to [place] state law, this organization might not be sharing negative HIV tests. * (ABNORMAL) Hepatic Function Panel (05/17/2024 11:20 AM EST) Only the most recent of2 resultswithin the time period is included. Total Protein 6.6 6.0 - 8.0 g/dL 05/17/2024 12:13 PM EST [facility] Albumin 3.2(L) 3.5 - 5.2 g/dL 05/17/2024 12:13 PM EST [facility] Globulin, Total 3.4 2.1 - 4.2 g/dL 05/17/2024 12:13 PM EST [facility] Bilirubin, Total <0.2(L) 0.2 - 1.2 mg/dL 05/17/2024 12:13 PM EST [facility] Bilirubin, Direct <0.1 <=0.4 mg/dL 05/17/2024 12:13 PM EST [facility] Alkaline Phosphatase 123 35 - 129 U/L 05/17/2024 12:13 PM EST [facility] AST 16 10 - 40 U/L 05/17/2024 12:13 PM EST [facility] ALT 7(L) 10 - 40 U/L 05/17/2024 12:13 PM EST [facility] Bilirubin, Indirect 05/17/2024 12:13 PM EST [facility] Comment:Unable to calculate A/G Ratio 0.9(L) 1.5 - 3.0 05/17/2024 12:13 PM EST [facility] Blood Structure of peripheral vein / Unknown Venipuncture / Unknown 05/17/2024 11:20 AM EST 05/17/2024 11:40 AM EST us Cynthia Gill MD LAB BLOOD ORDERABLES Final Result [facility] [address] [place] [address], [place] * (ABNORMAL) CBC (05/16/2024 4:45 AM EST) WBC 6.3 3.8 - 10.8 10*3/uL 05/16/2024 5:01 AM EST [facility] RBC 3.77(L) 4.20 - 5.80 10*6/uL 05/16/2024 5:01 AM EST [facility] Hemoglobin 9.5(L) 13.2 - 17.1 g/dL 05/16/2024 5:01 AM EST [facility] Hematocrit 31.6(L) 38.5 - 50.0 % 05/16/2024 5:01 AM EST [facility] MCV 83.8 80.0 - 100.0 fL 05/16/2024 5:01 AM EST [facility] MCH 25.2(L) 27.0 - 33.0 pg 05/16/2024 5:01 AM EST [facility] MCHC 30.1(L) 32.0 - 36.0 g/dL 05/16/2024 5:01 AM EST [facility] RDW 16.2(H) 11.0 - 15.0 % 05/16/2024 5:01 AM EST [facility] Platelets 529(H) 140 - 400 10*3/uL 05/16/2024 5:01 AM EST [facility] MPV 8.7 7.5 - 12.5 fL 05/16/2024 5:01 AM EST [facility] Blood Structure of peripheral vein / Unknown Venipuncture / Unknown 05/16/2024 4:45 AM EST 05/16/2024 4:53 AM EST us Cynthia Gill MD LAB BLOOD ORDERABLES Final Result [facility] [address] [place] [address], [place] * (ABNORMAL) Basic metabolic panel (05/16/2024 4:45 AM EST) Only the most recent of2 resultswithin the time period is included. NA 141 135 - 145 mmol/L 05/16/2024 5:22 AM EST [facility] K 4.5 3.5 - 5.3 mmol/L 05/16/2024 5:22 AM EST [facility] Cl 104 98 - 107 mmol/L 05/16/2024 5:22 AM EST [facility] CO2 25 22 - 32 mmol/L 05/16/2024 5:22 AM EST [facility] BUN 13 7 - 23 mg/dL 05/16/2024 5:22 AM EST [facility] Creatinine 0.77 0.60 - 1.30 mg/dL 05/16/2024 5:22 AM EST [facility] Glucose 119(H) 65 - 99 mg/dL 05/16/2024 5:22 AM EST [facility] Calcium 8.4(L) 8.6 - 10.5 mg/dL 05/16/2024 5:22 AM EST [facility] Anion Gap 12 5 - 15 05/16/2024 5:22 AM EST [facility]ALS[facility]PAUL[facility] eGFR >90 >=60 mL/min/1. 73m2 05/16/2024 5:22 AM EST [facility] Comment:The estimated glomer ular [...] Gill MD LAB BLOOD ORDERABLES Final Result [facility]ITALZepp Labs, Inc.[facility] [address] [place] [address], * (ABNORMAL) CBC Auto Differential (05/15/2024 9:20 PM EST) WBC 8.4 3.8 - 10.8 10*3/uL 05/15/2024 9:35 PM EST [facility] RBC 4.15(L) 4.20 - 5.80 10*6/uL 05/15/2024 9:35 PM EST [facility] Hemoglobin 10.8(L) 13.2 - 17.1 g/dL 05/15/2024 9:35 PM EST [facility] Hematocrit 35.0(L) 38.5 - 50.0 % 05/15/2024 9:35 PM EST [facility] MCV 84.3 [...] - 3.90 10*3/uL 05/15/2024 9:35 PM EST [facility] Monocyte # 0.10(L) 0.20 - 0.95 10*3/uL 05/15/2024 9:35 PM EST [facility] Eosinophil # <0.03 0.02 - 0.50 10*3/uL 05/15/2024 9:35 PM EST [facility] Basophil # <0.03 0.00 - 0.20 10*3/uL 05/15/2024 9:35 PM EST [facility] nRBC % 0.0 /100 WBCs 05/15/2024 9:35 PM EST [facility] nRBC # <0.01 <0.01 10*3/uL 05/15/2024 9:35 PM EST [facility] Blood Structure of peripheral vein / Unknown Venipuncture / Unknown 05/15/2024 9:20 PM EST 05/15/2024 9:29 PM EST us Cynthia Gill MD LAB BLOOD ORDERABLES Final Result [facility] [address] [place] [address], * Blood Culture, Peripheral #2 (05/15/2024 9:20 PM EST) Only the most recent of2 resultswithin the time period is included. Culture No growth after 5 days 05/20/2024 11:19 PM EST [facility] Blood Structure of peripheral vein / Unknown Venipuncture / Unknown 05/15/2024 9:20 PM EST 05/15/2024 9:28 PM EST Narrative [facility] 05/20/2024 11:19 PM EST [facility] Received Date: MICRO NUMBER: [id number] SPECIMEN QUALITY: Suboptimal SOURCE: BLOOD VENOUS, PERIPHERAL STATUS: FINAL COMMENT: Aerobic and anaerobic bottle received. Inspection of blood culture bottles indicates that an inadequate volume of blood may have been collected for the detection of sepsis. us Cynthia Gill MD LAB MICROBIOLOGY - GENERAL ORDERABLES Final Result KAREN KOENIG [address] [facility] 3rd Floor, [place] [address], [place] [phone] [facility] [address] [facility] 3rd Floor, [place] [address], [place] [phone] * Protime-INR (05/15/2024 9:20 PM EST) PT 11.0 9.6 - 12.4 Seconds 05/15/2024 9:48 PM EST [facility] INR 1.0 0.9 - 1.1 05/15/2024 9:48 PM EST [facility] Comment:The optimal therapeu tic INR range for patients treated with Vitamin K antagonists (VKAS, e.g., Warfarin) is 2.0 to 3.5. Discuss the desired range with your doctor/care team. Blood Structure of peripheral vein / Unknown Venipuncture / Unknown 05/15/2024 9:20 PM EST 05/15/2024 9:28 PM EST us Cynthia Gill MD LAB BLOOD ORDERABLES Final Result [facility] [address] [place] [address], * Magnesium (05/15/2024 9:20 PM EST) MG 2.1 1.6 - 2.4 mg/dL 05/15/2024 9:58 PM EST [facility] Blood Structure of peripheral vein / Unknown Venipuncture / Unknown 05/15/2024 9:20 PM EST 05/15/2024 9:29 PM EST us Cynthia Gill MD LAB BLOOD ORDERABLES Final Result [facility] CLINICAL PATHOLOGY LABORATORY [address] [place] [address], * Tissue Exam (05/15/2024 5:05 PM EST) Final Diagnosis Soft Tissue, Right Buttock, Excision: - Skin with underlying cyst lined by stratified squamous epithelium, cyst rupture surrounded by granulation tissue, acute and chronic inflammation. Note: The findings are compatible with hidradenitis suppurativa in the appropriate clinical setting. [facility] MANUAL 05/20/2024 3:09 PM EST [facility] LAB[facility] Clinical History Pre-op diagnosis: Hidradenitis suppurativa [L73.2] [facility] MANUAL 05/20/2024 3:09 PM EST [facility] ANATOMIC PATHOLOGY LABORATORY Gross Description 1. [...] by areas of hemorrhage and possible necrosis. Rn Document Improvement sections are submitted in cassettes 1A-1E. [facility] MANUAL 05/20/2024 3:09 PM EST [facility] ANATOM[facility] PATHOLOGY LABORAT[facility] Gross Description User Grossing complete by Alicia Kaplan on 05/18/2024 10:30 AM [facility] MANUAL 05/20/2024 3:09 PM EST [facility] ANATOMIC PATHOLOGY LABORATORY Embedded Images [facility] 05/20/2024 3:09 PM EST [facility] Resulting Agency Case was signed out at [facility], Department of Pathology, [employer] 3 CLIA [id number] [facility] MAN[facility] 05/20/2024 3:09 PM EST [facility] Report Header Surgical Pathology Report ? Case: [id number] ? Authorizing Provider: ??Cynthia Gill MD ?Collected: ? 05/15/20241704 ? Ordering Location: ? [facility] ? Received: ?05/16/2024915 ? [facility] ? Operating Room ? Pathologist: ? Shani Dang MD ? Specimen: ?Buttock, Right, HS Excision Right Buttock ? 05/20/2024 3:09 PM EST [facility] ANATOM[facility] PATHOLOG[facility] LABOR[facility] Tissue Structure of right buttock / Unknown 05/15/2024 5:05 PM EST 05/16/2024 9:16 AM EST Comment:Pre-op diagnosis: Hidradenitis suppurativa [L73.2] Cynthia Gill MD LAB PATHOLOGY/CYTOLOGY ORDE RABLES Final Result Performing Organization Address City/[facility]/ZIP Co de Phone Number [facility] [address] [place] [address], [facility] ANATOMIC PATHOLOGY LABORATORY [address] [place] [address], * Type and screen (05/15/2024 2:53 PM [...] Edited Result - Final Performing Organization Address City/[facility]/ZIP Co de Phone Number [facility] [address] [place] [address], * ECG 12 lead For Preop? Yes (05/15/2024 11:47 AM EST) Ventricular Rate EKG 56 BPM MUSE EKG Atrial Rate 56 BPM MUSE EKG KS Interval 174 ms MUSE EKG QRS Interval 106 ms MUSE EKG QT Interval 410 ms MUSE EKG QTC Interval 395 ms MUSE EKG P Benton 19 degrees MUSE EKG R Benton -28 degrees MUSE EKG T Wave Benton -17 degrees MUSE EKG 05/15/2024 11:4 7 AM EST 05/15/2024 6:42 PM EST Impressions MUSE EKG - 05/15/2024 6:42 PM EST SINUS BRADYCARDIA MINIMAL VOLTAGE CRITERIA FOR LVH, MAY BE NORMAL VARIANT T WAVE ABNORMALITY, CONSIDER ANTERIOR ISCHEMIA ABNORMAL ECG Confirmed by Shayan Wynne ([id number]) on 05/15/2024 6:42:01 PM us Judie Suarez NP ECG ORDERABLES Final Result Performing Organization Address [facility] Co de Phone Number MUSE EKG * Hepatitis C Antibody w/Reflex to HCV RNA, Quantitative PCR (07/12/2022 3:49 PM EST) Hepatitis C Antibody NON-REACT JOSELITO NON-REACT JOSELITO 07/13/2022 7:25 AM EST [facility] Signal To Cut-Off 0.05 <1.00 07/13/2022 7:25 AM EST [facility] Comment: HCV antibody was non-reactive. There is no laboratory evidence of HCV infection. In most cases, no further action is required. However, if recent HCV exposure is suspected, a test for HCV RNA (test code 62535) is suggested. For additional information please refer to http://education.Enevo/faq/FOP53w2 (This link is being provided for informational/ educational purposes only.) Blood Structure of peripheral vein / Unknown Venipuncture / Unknown 07/12/2022 3:49 PM EST 07/12/2022 3:49 PM EST Narrative [facility] - 07/13/2022 7:25 AM EST [facility] Received Date: us Glenys Thibodeaux MD LAB BLOOD ORDERABLES Final R esult Performing Organization Address City/[facility]/ZIP Co de Phone Number KARNE MITTAL[address], [place] [address], [place] [phone] [facility] [address] Floor, [address] [place] [address], [place] [phone] from Last 3 Months or Most Recently Relevant to Health Maintenance Insurance [facility] MEDICAID Advance Directives Documents on File Type Date Recorded Patient Rn Document Improvement Expl anation Health Care Proxy 05/15/2024 12:17 [...] Communication Olivia ward Mother Health Care Agent [email or web address] William Francine Brother Alternate H [facility] Care Agent Care Teams Associate Team Physician Relationship Specialty Start Date End Date Kisha Navarro [address] [place] [address] [facility] - [facility] [address] [place] [address] Academic Primary Care Attending 05/14/22 Dr Marylou Vargas [address] [place] [address] Neurology 07/31/22 Dr Waldo Cortez [address] [place] [address] Referring Physician 07/31/22
--- NOTE | 2024-06-25 23:34 | MHC.CM.ED ---
Pt was seen in [facility] ED on 06/19. Had been at [facility] in [place] for chronic wound care and left AMA. Returned to [facility] ED on 06/19. Pt did not want to return to facility and wanted home care. Pt was discharged on 06/20 with Michael VALVERDE and referral to [facility] wound Care. Script given for pain medication at that time. Was instructed to call PCP for medication renewals. Pt is Wheelchair bound. CVA with hemiplegia. PCP is Kisha Navarro. Pt lives with his mother. His brother provides wound care. Pt returned to ED [facility] 06/25. States his brother cannot care for his wound, he has no pain meds and he doesn't have a wound care appointment for 2 weeks. He now wants to go to a longterm. Pt will have baseline labs. Will need referrals for wound care. Pt will need S transport.
[2024-06-25 23:43] VITALS: BP 110/70; PULSE 61; RESP 16; TEMP 36.5; O2SAT 97
--- NOTE | 2024-06-26 00:35 | ED.GENADULT ---
HPI - General Adult General Chief complaint: General Medical Stated complaint: more pain meds, wants to be tx to custodial Time Seen by Provider: 06/25/24 22:21 Source: patient and EMS Mode of arrival: EMS Limitations: no limitations History of Present Illness ED Provider: Dr. Breanne Kearney HPI narrative: Patient comes to the emergency room via ambulance from home. According to the patient, he is reporting chronic hip pain on the right side, states that he would like to go to a custodial. Patient has no new complaints. Patient states that he has visiting nurses come to his house to help him with his dressing changes Related Data Home Medications ?Medication ?Instructions ?Recorded ?Confirmed acetaminophen 500 mg tablet 1,000 mg PO Q8H PRN Pain 02/17/23 06/25/24 baclofen 20 mg tablet 20 mg PO QID 02/17/23 06/25/24 canakinumab (PF) 150 mg/mL 150 mg subcut Q28D 02/17/23 06/25/24 subcutaneous solution (Ilaris (PF)) clindamycin phosphate 1 % topical 1 appl topical BID PRN flared 02/17/23 06/25/24 gel lesion prophylaxis hydroxyurea 500 mg capsule 500 mg PO DAILY 03/18/24 06/25/24 tizanidine 2 mg tablet 4 mg PO Q8H PRN muscle spasm 03/18/24 06/25/24 nystatin 100,000 unit/gram topical 1 appl topical BID-TID 05/22/24 06/25/24 powder multivitamin 1 tab PO DAILY 05/25/24 06/25/24 Previous Rx's ?Medication ?Instructions ?Recorded apixaban 5 mg tablet (Eliquis) 5 mg PO BID #60 tabs 03/25/24 docusate sodium 100 mg capsule 100 mg PO BID #180 caps 03/25/24 gabapentin 800 mg tablet 800 mg PO TID #90 tabs 04/06/24 pantoprazole 40 mg tablet,delayed 40 mg PO DAILY@0630 #90 tabs 04/06/24 release cholecalciferol (vitamin D3) 25 25 mcg PO DAILY #90 tabs 04/29/24 mcg (1,000 unit) tablet (Vitamin D3) ferrous sulfate 325 mg (65 mg 325 mg PO DAILY #90 tabs 04/29/24 iron) tablet oxycodone 30 mg tablet 30 mg PO Q6H PRN pain 7 days #28 05/05/24 tabs ascorbic acid (vitamin C) 500 mg 500 mg PO DAILY #90 tabs 05/22/24 tablet (Vitamin C) duloxetine 30 mg capsule,delayed 30 mg PO BID #180 caps 05/22/24 release folic acid 1 mg tablet 1 mg PO DAILY #90 tabs 05/22/24 oxycodone 30 mg tablet 30 mg PO Q6H PRN pain #12 tabs 05/29/24 oxycodone 30 mg tablet 30 mg PO QID PRN pain #12 tabs 06/20/24 Allergies Allergy/AdvReac Type Severity Reaction Status Date / Time No Known Allergies Allergy Verified 06/25/24 20:49 Review of Systems Review of Systems: Constitutional : No Weight loss, No Fever, No Chills, No Night Sweats, No Fatigue, No Malaise ENT/Mouth : No Hearing loss, No Ear Pain, No Nasal Congestion, No Sinus Pain, No Hoarseness, No sore throat, No Rhinorrhea, No Swallowing Difficulty Eyes: No Eye Pain, No Swelling, No Redness, No Foreign Body, No Discharge, No Vision Changes Cardiovascular : No Chest Pain, No SOB, No Dyspnea on Exertion, No Orthopnea, No Edema, No Palpitations Respiratory : No Cough, No Sputum, No Wheezing, No Smoke Exposure, No Dyspnea Gastrointestinal : No Nausea, No Vomiting, No Diarrhea, No Constipation, No abdominal Pain, No Hematochezia, No Melena Genitourinary : no irregular bleeding, No Dysuria, No Urinary Frequency, No Hematuria, No Urinary Incontinence, No Urgency, No Flank Pain, No Urinary Flow Changes, No Hesitancy Musculoskeletal : No joint pain, No Myalgias, No Joint Swelling Skin : Complaining of a large ulcer healing on the right side of the hip Neuro : No Weakness, No Numbness, No Paresthesias, No Loss of Consciousness, No Dizziness, No Headache Psych : No Anxiety/Panic, No Depression, No SI/HI/AH/VH, No Social Issues, Heme/Lymph: No Bruising, No Bleeding,No Lymphadenopathy Endocrine : No Polyuria, No Polydipsia, No Temperature Intolerance PMFSH Past Medical History Medical History Hidradenitis suppurativa Hidradenitis Imbalance Neuropathy Anxiety and depression GERD (gastroesophageal reflux disease) Hypertension CVA (cerebral vascular accident) Opiate abuse, continuous Surgical History No pertinent past surgical history Family History Family History Mother Mental health disorder Asthma Thyroid disease Cervical cancer Maternal Grandmother Mental health disorder Asthma Diabetes Cardiovascular disease Thyroid disease Father Substance abuse Hypertension High cholesterol Cardiovascular disease Clotting disorder Maternal Grandfather Diabetes Cardiovascular disease Paternal Grandfather Clotting disorder Social History Social History Household Members: Family Housing: Apartment Are you a primary day care teacher to a significant other at home: No Do you presently have visiting nurse or other home services: Yes Alcohol intake: never Patient Tobacco Use Status: Never used Tobacco Cigarettes Per Day: 4 e-Cigarette/Vaping Use: Never Used Second Hand Smoke Exposure: No Substance Use Type: Marijuana Advance Directives: Yes Advance Directives on File: Yes Advance Directives Date on File: 02/19/23 service: No Current occupational status: disabled Cognitive needs: No Hearing needs: No Vision needs: No Physical Exam ED Vital Signs: Vital Signs - 24 hr 06/25/24 20:41 06/25/24 23:43 Temperature 98.6 F 97.7 F Pulse Rate 72 61 Respiratory Rate 16 16 Blood Pressure 110/66 110/70 Pulse Oximetry 96 97 Oxygen Delivery Method Room Air Room Air BMI result Body Mass Index 26.8 Const Other: Appearance: Alert. Oriented X3. No acute distress. Eyes: Pupils equal, round and reactive to light. ENT: Pharynx normal. Neck: Normal inspection. Neck supple. No lymph nodes noted. No crepitus CVS: Normal heart rate and rhythm. Pulses normal. Normal S1 and S2 Respiratory: No respiratory distress. Breath sounds normal. No Wheezing. No rales Abdomen: Soft and nontender. No rigidity. No distention. Skin: Skin warm and dry. Normal skin color. Normal skin turgor. Patient has a large skin ulcer on the right side of the hip. However, the ulcer itself looks very clean, while taking care of, no signs of cellulitis Extremities: No lower extremity edema. No Lacerations. No Rash Neuro: Oriented X 3. No motor deficit. No sensory deficit. Moving all extremities. No slurred speech. CN 2 through 12 grossly intact Psych: calm, cooperative, normal affect Course Course Course Narrative: Of note, patient was seen here several days ago for the same complaint. Patient was seen by PT case management, patient was accepted by the custodial. However, patient did not like that they were trying to reduce his dose of oxycodone and left against medical advice. Then, Medical Decision Making Medical Decision Making [facility] Narrative: I discussed the patient with our rehabilitation case coordinator Diane. Seems that the patient was seen here about a week ago for the same complaint. Patient was sent to a custodial, patient left AMA because he was upset that they were trying to wean him off oxycodone. Then, patient went to [facility] for unclear reason, was sitting in the waiting room for several hours and was not seen. Patient's brother picked him up. Then, patient came back to the emergency room he had [place], was provided with pain medications, nursing services. Patient now back stating he changed his mind and would like to go back to the custodial Basic labs pending PT and case management consult pending Physician observation started at 01:00 Differential Diagnosis Differential Diagnoses: The differential diagnosis associated with the presentation includes (Cellulitis, chronic pain) Admission/Observation Consideration of admission/observation: Escalation of care including admission/observation considered (Patient is under physician observation waiting to be seen by PT case management.) Critical Care Time Critical Care Time Critical Care Time: Yes Total Critical Care Time: 35 Attestation: I have personally provided critical care time. Time includes review of lab data, radiology results, discussion with consultants, and monitoring for potential decompensation. Intervention performed as documented. Discharge Plan Discharge Clinical Impression: Chronic wound Patient Disposition: Still a Patient Prescriptions: No Action cholecalciferol (vitamin D3) [Vitamin D3] 25 mcg (1,000 unit) tablet 25 mcg PO DAILY Qty: 90 0RF ferrous sulfate 325 mg (65 mg iron) tablet 325 mg PO DAILY Qty: 90 0RF oxycodone 30 mg tablet 30 mg PO Q6H PRN (Reason: pain) 7 Days Qty: 28 0RF hydroxyurea 500 mg capsule 500 mg PO DAILY tizanidine 2 mg tablet 4 mg PO Q8H PRN (Reason: muscle spasm) multivitamin 1 tab PO DAILY oxycodone 30 mg tablet 30 mg PO Q6H PRN (Reason: pain) Qty: 12 0RF Rx Instructions: Partial Fill upon patient request. clindamycin phosphate 1 % gel 1 appl topical BID PRN (Reason: flared lesion prophylaxis) Ilaris (PF) 150 mg/mL solution 150 mg subcut Q28D baclofen 20 mg tablet 20 mg PO QID acetaminophen 500 mg Tablet 1,000 mg PO Q8H PRN (Reason: Pain) oxycodone 30 mg tablet 30 mg PO QID PRN (Reason: pain) Qty: 12 0RF Rx Instructions: Partial Fill upon patient request. gabapentin 800 mg tablet 800 mg PO TID Qty: 90 2RF pantoprazole 40 mg tablet,delayed release (DR/EC) 40 mg PO DAILY@0630 Qty: 90 2RF Eliquis 5 mg tablet 5 mg PO BID Qty: 60 3RF docusate sodium 100 mg capsule 100 mg PO BID Qty: 180 2RF nystatin 100,000 unit/gram powder 1 appl topical BID-TID ascorbic acid (vitamin C) [Vitamin C] 500 mg tablet 500 mg PO DAILY Qty: 90 2RF folic acid 1 mg tablet 1 mg PO DAILY Qty: 90 2RF duloxetine 30 mg capsule,delayed release(DR/EC) 30 mg PO BID Qty: 180 2RF Print Language: Nigerien
[2024-06-26 02:13] LABS: MANUAL DIFF FLAG NO
[2024-06-26 02:16] LABS: Basophils Percent Auto 0.6 % (0-2); Eosinophils Absolute Auto 0.1 X10*3/uL (0.0-0.4); Eosinophils Percent Auto 2.4 % (0-4); Hematocrit 33.2 % (42.0-52.0); Hemoglobin 10.7 g/dl (14.0-18.0); Imm Gran Abs Auto 0.01 X10*3/uL (0.00-0.03); Imm Gran Pct Auto 0.2 % (0.0-0.4); Lymphocytes Absolute Auto 1.7 X10*3/uL (1.2-4.9); Lymphocytes Percent Auto 32.6 % (20-40); Mean Corpuscular HGB Conc 32.2 g/dl (31.0-36.0); Mean Corpuscular Hemoglobin 27.4 pg (27.0-33.0); Mean Corpuscular Volume 85.1 fL (80.0-98.0); Mean Platelet Volume 8.1 fL (9.4-12.4); Monocytes Absolute Auto 0.7 X10*3/uL (0.1-1.2); Monocytes Percent Auto 13.6 % (2-11); Neutrophils Absolute Auto 2.6 x10*3/uL (2.0-8.3); Neutrophils Percent Auto 50.6 % (45-73); Platelet Count 423 X10*3/uL (160-400); White Blood Count 5.1 X10*3/uL (4.8-10.8)
[2024-06-26] MEDS: Apixaban 5 MG TABLET PO ×3 (02:29→20:46)
[2024-06-26] MEDS: Gabapentin 400 MG CAPSULE 800 MG PO ×4 (02:29→20:46)
[2024-06-26] MEDS: DULoxetine HCl 30 MG CAPSULE.DR PO ×3 (02:29→20:46)
[2024-06-26] MEDS: Baclofen 20 MG TABLET PO ×5 (02:29→20:46)
[2024-06-26 02:35] LABS: Alanine Aminotransferase 8 U/L (0-40); Albumin Level 3.2 g/dL (3.5-5.0); Anion Gap 12 (12-20); Aspartate Amino Transferase 15 U/L (5-37); Bilirubin Direct < 0.2 mg/dL (0.0-0.5); Bilirubin Total 0.1 mg/dL (0.0-1.0); Blood Urea Nitrogen 19 mg/dL (9-16); Calcium 8.5 mg/dL (8.4-10.2); Carbon Dioxide 26 mmol/L (22-29); Chloride 106 mmol/L (96-108); Creatinine Clr Calc Pharmacy 161.7; Estimated Glomerular Filt Rate > 60; Glucose Random 89 mg/dL (60-115); Sodium 140 mmol/L (135-145); Total Protein 6.6 g/dL (6.5-8.0)
[2024-06-26 02:40] LABS: Alkaline Phosphatase 115 U/L (39-117)
[2024-06-26] MEDS: oxyCODONE HCl Immed Release 15 MG TABLET 30 MG PO ×4 (03:42→20:45)
--- NOTE | 2024-06-26 04:30 | PC.NURSE ---
06/26/24 04:28 - Nurse Note by Ally Chicas Located Within [facility] Num: [id number] : 03/10/1955 Patient Age: 69 pt bedside set up with apple juice/straw. urinal, silver mariee to ring if needed. belongings in belongings bag at bedside. pt phone is charging at the bedside table. Initialized on 06/26/24 04:28 - END OF NOTE 06/26/24 04:21 - Nurse Note by Ally Chicas Located Within [facility] Num: [id number] : 03/10/1955 Patient Age: 69 pt arrived to over flow and changed over into hospital gown, briefs removed and wound noted as in report. pt denies pain. pt repositioned to allow relief to the buttock wound. needs at bedside, call mariee not present so pt was given a table top mariee he can ring on his left side. pt is right sided effective more to the upper body due to cva. pt is able to lift his right leg slightly.
--- NOTE | 2024-06-26 04:32 | PC.NURSE ---
06/25/24 21:45 - Nurse Note by Ally Chicas Acct Num: [id number] : 03/10/1955 Patient Age: 69 pt arrived to overflow via stretcher. pt at bedside to say elba and to see where she is staying the night. pt was unable to transfer over to the bed due to back pain. pt was transferred with 3 assist and did elevate her pain level during this. pt will be settled in and reassessed pain status. Initialized on 06/25/24 21:45 - END OF NOTE
[2024-06-26 05:23] VITALS: BP 119/66; PULSE 71; RESP 19; TEMP 36.4; O2SAT 96
[2024-06-26] MEDS: Pantoprazole Sodium 20 MG TABLET.DR 40 MG PO (06:35)
[2024-06-26 06:36] VITALS: BP 119/66; PULSE 71; RESP 19; TEMP 36.4
[2024-06-26 08:00] VITALS: BP 116/69; PULSE 60; RESP 18; TEMP 36.6; O2SAT 97
[2024-06-26] MEDS: Ferrous Sulfate 324 MG TABLET.DR PO (09:30)
[2024-06-26] MEDS: Folic Acid 1 MG TABLET PO (09:30)
[2024-06-26] MEDS: Hydroxyurea 500 MG CAPSULE PO (09:30)
[2024-06-26] MEDS: Cholecalciferol (Vitamin D3) 25 MCG TABLET PO (09:31)
[2024-06-26] MEDS: Ascorbic Acid 500 MG TABLET PO (10:10)
--- NOTE | 2024-06-26 10:13 | PC.NURSE ---
Wound care completed to right hip today without any complications. 8 small xeroform applied but ran out and there was no more in the store room. only a small area was not covered with the xeroform , small amount of drainage noted with an odor. skin is red granulated tissue, cleansed with normal saline.
[2024-06-26] MEDS: Multivitamin TABLET 1 TAB PO (10:22)
[2024-06-26 10:53] LABS: Influenza A PCR NEGATIVE (Negative); Influenza B PCR NEGATIVE (Negative); Resp Syncy Virus RNA Qual PCR NEGATIVE (Negative); SARS COV2 PCR INHOUSE NEGATIVE (Negative)
--- NOTE | 2024-06-26 11:18 | MHC.CM.ED ---
Addendum entered by Jenn Salgado 06/26/24 14:46: Patient's brother, William, updated about d/c plan via telephone at [phone]. Addendum entered by Jenn Salgado 06/26/24 12:45: No bed offers within 25 miles. Referral broadcasted within 50 miles. Original Note: Patient remains in ER overflow. Wound care consult is pending. SNF referral will be broadcasted for bed offers. Continue to monitor for d/c needs.
[2024-06-26 20:34] VITALS: BP 109/63; PULSE 58; RESP 20; TEMP 36.8; O2SAT 95
[2024-06-26] MEDS: TiZANidine HCL 4 MG TABLET PO (20:45)
[2024-06-26] MEDS: Docusate Sodium 100 MG CAPSULE PO (20:46)
[2024-06-27] MEDS: oxyCODONE HCl Immed Release 15 MG TABLET 30 MG PO ×4 (03:35→23:24)
--- NOTE | 2024-06-27 03:36 | PC.NURSE ---
Pt c/o 02/19 pain, declined repositioning or Tizanidine. NELDA Contreras notified and ordered for oxycodone. Pt medicated as prescribed.
[2024-06-27 06:44] VITALS: BP 122/73; PULSE 54; RESP 14; TEMP 36.7; O2SAT 97
--- NOTE | 2024-06-27 08:36 | MHC.EDTECH ---
Patient ate 50% breakfast. Siddiqi placed within reach. Patient states he is comfortable.
[2024-06-27] MEDS: Folic Acid 1 MG TABLET PO (11:31)
[2024-06-27] MEDS: Cholecalciferol (Vitamin D3) 25 MCG TABLET PO (11:31)
[2024-06-27] MEDS: Multivitamin TABLET 1 TAB PO (11:31)
[2024-06-27] MEDS: Apixaban 5 MG TABLET PO ×2 (11:31→21:43)
[2024-06-27] MEDS: Docusate Sodium 100 MG CAPSULE PO (11:32)
[2024-06-27] MEDS: Ferrous Sulfate 324 MG TABLET.DR PO (11:32)
[2024-06-27] MEDS: Ascorbic Acid 500 MG TABLET PO (11:33)
[2024-06-27] MEDS: Gabapentin 400 MG CAPSULE 800 MG PO ×3 (11:34→21:43)
[2024-06-27] MEDS: Hydroxyurea 500 MG CAPSULE PO (11:34)
[2024-06-27] MEDS: DULoxetine HCl 30 MG CAPSULE.DR PO ×2 (11:35→21:43)
[2024-06-27] MEDS: Baclofen 20 MG TABLET PO ×3 (11:45→21:43)
--- NOTE | 2024-06-27 12:20 | MHC.EDTECH ---
Patient ate 50% of lunch. Call mariee placed within reach.
--- NOTE | 2024-06-27 13:40 | PHA.MEDREC ---
Addendum entered by Yandy Yoo RPh 06/27/24 14:23: MED REC REVIEWED BY [facility] Original Note: Pharmacy Consult ? Medication Reconciliation Pharmacy has completed the medication reconciliation. Spoke with patients brother over the phone to confirm medication list. Patient unable to relay what he takes since his brother and mom take care of his meds. Brother (William) does not know when he last had Ilaris injection. He said since he left the facility AMA, he did not bring home meds or discharge papers. He was not on abx at home, facility did fill doxycycline during his stay. William says he does not think he is on amlodipine since his BP has been okay. He also confirmed he ran out of oxycodone at home. PDMP and facility claims show he has been getting it consistently, leaving on med list. William confirmed he is not on cyclobenzaprine at home either.
--- NOTE | 2024-06-27 13:51 | PC.NURSE ---
patient a&ox2, rr equal/non labored, lungs clear, pt speaking in full sentences, meds whole with water, vitals previously stable, pt refusing to allow this nurse to assess wounds, pt states he has dressing changes and they are assessed ever 2 days and they are not due yet. This nurse is familiar with this patient from his last visit here and he had extensive wounds to his buttocks area which at the time were wet to dry dressings. Pt stating that he no longer has wet to dry dressings. Siddiqi within reach, plan of care ongoing.
--- NOTE | 2024-06-27 13:57 | PC.NURSE ---
Addendum entered by Shannan Fragoso RN 06/27/24 14:07: the same medication dosage incident occured for the patients oxycodone- it was administered late on the 9 am dose by prior nurse Original Note: this nurse took over pt care at 1230pm, pt had 1pm medication of baclofen ordred, it was noted that the previous nurse administered the medication at 1145. upon speaking with the nurse she stated his meds were late as most werent available in the pyxis- when scanning the baclofen it pulled the 9am dose which should have been marked off as not given as the dose wasnt available. therefor, the patients 1p dose will be not administered
[2024-06-27 14:20] VITALS: BP 129/68; PULSE 65; RESP 16; TEMP 36.8; O2SAT 97
[2024-06-27 21:48] VITALS: BP 129/70; PULSE 57; RESP 12; TEMP 36.6; O2SAT 95
[2024-06-28 06:00] VITALS: BP 128/71; PULSE 59; RESP 12; TEMP 36.2; O2SAT 99
[2024-06-28] MEDS: oxyCODONE HCl Immed Release 15 MG TABLET 30 MG PO ×3 (06:44→17:25)
[2024-06-28] MEDS: Pantoprazole Sodium 20 MG TABLET.DR 40 MG PO (06:50)
--- NOTE | 2024-06-28 06:50 | PC.NURSE ---
pantoprazole dose verified with pharmacist/
[2024-06-28] MEDS: Gabapentin 400 MG CAPSULE 800 MG PO ×3 (08:36→20:45)
[2024-06-28] MEDS: Cholecalciferol (Vitamin D3) 25 MCG TABLET PO (08:37)
[2024-06-28] MEDS: Ascorbic Acid 500 MG TABLET PO (08:37)
[2024-06-28] MEDS: Ferrous Sulfate 324 MG TABLET.DR PO (08:37)
[2024-06-28] MEDS: Apixaban 5 MG TABLET PO ×2 (08:37→20:45)
[2024-06-28] MEDS: Folic Acid 1 MG TABLET PO (08:37)
[2024-06-28] MEDS: DULoxetine HCl 30 MG CAPSULE.DR PO ×2 (08:37→20:46)
[2024-06-28] MEDS: Multivitamin TABLET 1 TAB PO (08:37)
[2024-06-28] MEDS: Baclofen 20 MG TABLET PO ×4 (08:37→20:45)
[2024-06-28] MEDS: Hydroxyurea 500 MG CAPSULE PO (09:36)
--- NOTE | 2024-06-28 09:50 | MHC.EDTECH ---
AM care done ,bed change RN aware
--- NOTE | 2024-06-28 14:20 | MHC.EDTECH ---
AM care done , Bed change RN aware
--- NOTE | 2024-06-28 14:29 | PC.NURSE ---
Pt's dressing to R buttock/thigh pressure injury changed; petroleum gauze and abd pads applied; wound has foul-smelling drainage and blood oozing; pt states the wound is improved at this time; denies pain to area and tolerated dressing well
[2024-06-28 14:30] VITALS: BP 127/75; PULSE 68; RESP 16; TEMP 36.1; O2SAT 96
[2024-06-28 20:59] VITALS: BP 121/66; PULSE 62; RESP 18; TEMP 36.5; O2SAT 97
[2024-06-29] MEDS: oxyCODONE HCl Immed Release 15 MG TABLET 30 MG PO ×4 (00:03→18:03)
[2024-06-29 06:12] VITALS: BP 116/66; PULSE 60; RESP 17; TEMP 36.8; O2SAT 97
[2024-06-29] MEDS: Ascorbic Acid 500 MG TABLET PO (08:31)
[2024-06-29] MEDS: Multivitamin TABLET 1 TAB PO (08:31)
[2024-06-29] MEDS: DULoxetine HCl 30 MG CAPSULE.DR PO ×2 (08:31→20:22)
[2024-06-29] MEDS: Ferrous Sulfate 324 MG TABLET.DR PO (08:32)
[2024-06-29] MEDS: Pantoprazole Sodium 20 MG TABLET.DR 40 MG PO (08:32)
[2024-06-29] MEDS: Gabapentin 400 MG CAPSULE 800 MG PO ×3 (08:32→20:22)
[2024-06-29] MEDS: Baclofen 20 MG TABLET PO ×4 (08:32→20:21)
[2024-06-29] MEDS: Folic Acid 1 MG TABLET PO (08:32)
[2024-06-29] MEDS: Apixaban 5 MG TABLET PO ×2 (08:32→20:22)
[2024-06-29] MEDS: Cholecalciferol (Vitamin D3) 25 MCG TABLET PO (08:32)
--- NOTE | 2024-06-29 08:35 | PC.NURSE ---
medication administered per provider order. pt refused docusate. pending hydroxyurea from pharmacy. will administer when able. pt otherwise denies pain. has no complaints. resting comfortably in no apparent distress. no sob/wob noted.respirations even/unlabored. bed alarm turned on for safety precautions.call mariee placed within reach.
[2024-06-29] MEDS: Hydroxyurea 500 MG CAPSULE PO (08:49)
--- NOTE | 2024-06-29 11:45 | MHC.CM.PN ---
PT AWAITING SNF PLACEMENT, NO BED OFFERS YET, HOWEVER THERE ARE SNFS FOLLOWING FOR BED AVAILABILITY AND PENDING REVIEW ON WOUND CARE NEEDS
--- NOTE | 2024-06-29 12:29 | PC.NURSE ---
medication administered per provider order.
[2024-06-29 13:18] VITALS: BP 128/61; PULSE 67; RESP 18; TEMP 36.9; O2SAT 96
--- NOTE | 2024-06-29 16:10 | PC.NURSE ---
wound covered w/ pink foam dressing by previous RN on 06/28. patient refusing for this RN to uncover/reassess as pt states he is only allowed to have dressing changed every 2 days.
[2024-06-29 18:48] VITALS: BP 122/62; PULSE 65; RESP 18; TEMP 36.9; O2SAT 95
--- NOTE | 2024-06-29 20:23 | PC.NURSE ---
assumed care of pt at 20:00, pt resting comfortably in hospital bed watching tv, no apparent distress. medicated per mar with bedtime medications. taken whole without issue. pt denied st6ol softener, says he does not need that. offers no current complaints, denies pain. call mariee within reach. plan of care continues.
[2024-06-30] MEDS: oxyCODONE HCl Immed Release 15 MG TABLET 30 MG PO ×4 (00:07→17:16)
[2024-06-30 03:19] VITALS: BP 119/66; PULSE 67; RESP 18; TEMP 36.7; O2SAT 96
[2024-06-30] MEDS: Pantoprazole Sodium 20 MG TABLET.DR 40 MG PO (05:50)
--- NOTE | 2024-06-30 06:08 | PC.NURSE ---
pt using urinal at bedside w/o issue.
[2024-06-30] MEDS: Multivitamin TABLET 1 TAB PO (09:32)
[2024-06-30] MEDS: Gabapentin 400 MG CAPSULE 800 MG PO ×3 (09:32→20:53)
[2024-06-30] MEDS: DULoxetine HCl 30 MG CAPSULE.DR PO ×2 (09:32→20:53)
[2024-06-30] MEDS: Hydroxyurea 500 MG CAPSULE PO (09:32)
[2024-06-30] MEDS: Ferrous Sulfate 324 MG TABLET.DR PO (09:32)
[2024-06-30] MEDS: Cholecalciferol (Vitamin D3) 25 MCG TABLET PO (09:32)
[2024-06-30] MEDS: Baclofen 20 MG TABLET PO ×4 (09:32→20:54)
[2024-06-30] MEDS: Ascorbic Acid 500 MG TABLET PO (09:32)
[2024-06-30] MEDS: Apixaban 5 MG TABLET PO ×2 (09:32→20:53)
[2024-06-30] MEDS: Folic Acid 1 MG TABLET PO (09:32)
--- NOTE | 2024-06-30 10:16 | HO.WOUND ---
Wound Consult: Initial 39yr old?male admitted to [facility] on 06/25/24 - See progress notes and H&P for detailed history.?Wound consult placed for Right Buttock wound.? Patient agreeable to assessment and photo documentation.? Patient is awaiting placement for wound care treatments - he reports he had surgical treatment of his Hidradenitis Suppurativa in [place]. He suffers from Aphasia at times making communication difficult and frustrating for him at times. He reports they were applying xeroform to the wound bed at home. See photos below first picture is from last admission in May - significant improvements noted at todays assessment. 05/27/24 06/30/24 Right Buttock Etiology: ?Surgical Debridement site Measurements: 23cm x 24cm x 0.1cm Wound Bed: Red moist viable tissue noted - clean wound bed no s/s of infection at this time Drainage / Odor: Foul odor noted almonte brown serosang drainage noted on removed dressing - patient and staff report multiple days without change suspect this is cause of odor and not infection related as wound bed appears clean and viable. Edges: attached and irregular Jesi wound: ?Intact Hyper and hypo pigmentation noted to wound edge - No Induration, Fluctuance or Warmth noted Pain: denies pain Goals of Treatment: ?given improvment since last assessment approx 1 month ago Continue moist wound healing with xeroform - off load pressure - IBRAHIMA Pump to bed recommended Recommendations: 1. Turn and Reposition every 2 hours and as needed for patient comfort.? Use pillows or wedges to support off loading positions. 2. Off Load all bony prominences with use of pillows and heel boots if needed.? Apply Preventative foams where needed. ? 3. Monitor for incontinence and moisture control, use barrier creams when needed for prevention and treatment. 4. Provide adequate and supplemental nutrition.? 5. Order low air loss mattress. 6. When applicable maintain blood glucose levels per Providers order. 7.Right Buttock - Off Load Pressure with Q2hr turns and pillows. Cleanse wound bed with NS, pat dry. Apply skin prep to wound edge. Apply xeroform to wound bed, cover with dry gauze, ABD pad and secure with tape. Change daily. Recommend follow up out patient Wound Clinic at [address] [place] [id number] and to call for an appointment at time of discharge. [phone].? Re-consult wound care Nurse for wound deterioration or wound changes.
--- NOTE | 2024-06-30 11:18 | PC.NURSE ---
Patient placed on low air loss mattress
--- NOTE | 2024-06-30 11:19 | MHC.CM.ED ---
Patient remains in ER overflow. Wound RN consult completed. Clinical updates sent to [facility]. This is the only facility still reviewing. Continue to monitor for d/c needs.
[2024-06-30 13:37] VITALS: BP 116/59; PULSE 70; RESP 16; TEMP 36.8; O2SAT 96
[2024-06-30 22:13] VITALS: BP 112/66; PULSE 56; RESP 16; TEMP 36.2; O2SAT 97
[2024-07-01] MEDS: oxyCODONE HCl Immed Release 15 MG TABLET 30 MG PO ×4 (02:10→21:31)
--- NOTE | 2024-07-01 04:53 | PC.NURSE ---
Patient medicated for pain as per [facility] orders. Purposeful rounding performed to maintain safety. Bed alarm on , call mariee within reach.
[2024-07-01 05:11] VITALS: BP 108/67; PULSE 60; RESP 16; TEMP 36.4; O2SAT 97
[2024-07-01] MEDS: Pantoprazole Sodium 20 MG TABLET.DR 40 MG PO (05:39)
[2024-07-01 08:46] VITALS: BP 116/68; PULSE 62; RESP 18; TEMP 36.5; O2SAT 96
[2024-07-01] MEDS: Multivitamin TABLET 1 TAB PO (08:58)
[2024-07-01] MEDS: Apixaban 5 MG TABLET PO ×2 (08:58→21:30)
[2024-07-01] MEDS: Hydroxyurea 500 MG CAPSULE PO (08:58)
[2024-07-01] MEDS: Ascorbic Acid 500 MG TABLET PO (08:58)
[2024-07-01] MEDS: Ferrous Sulfate 324 MG TABLET.DR PO (08:58)
[2024-07-01] MEDS: Cholecalciferol (Vitamin D3) 25 MCG TABLET PO (08:59)
[2024-07-01] MEDS: Folic Acid 1 MG TABLET PO (08:59)
[2024-07-01] MEDS: Baclofen 20 MG TABLET PO ×4 (08:59→21:30)
[2024-07-01] MEDS: Gabapentin 400 MG CAPSULE 800 MG PO ×3 (08:59→21:30)
[2024-07-01] MEDS: DULoxetine HCl 30 MG CAPSULE.DR PO ×2 (09:02→21:30)
[2024-07-01 11:31] VITALS: BP 116/68; PULSE 62; O2SAT 96
[2024-07-01 14:10] VITALS: BP 122/68; PULSE 72; RESP 20; TEMP 37.4; O2SAT 97
[2024-07-01 18:08] VITALS: BP 106/59; PULSE 75; RESP 16; TEMP 37.1; O2SAT 94
--- NOTE | 2024-07-01 21:43 | PC.NURSE ---
Pt medicated per jul Pt refused colace Plan of care ongoing.
[2024-07-02] MEDS: Pantoprazole Sodium 20 MG TABLET.DR 40 MG PO (06:09)
[2024-07-02 06:11] VITALS: BP 112/67; PULSE 61; RESP 16; TEMP 36.9; O2SAT 98
--- NOTE | 2024-07-02 06:12 | PC.NURSE ---
Pt medicated per [facility] Plan of care ongoing.
[2024-07-02] MEDS: oxyCODONE HCl Immed Release 15 MG TABLET 30 MG PO ×3 (07:07→20:26)
[2024-07-02] MEDS: Folic Acid 1 MG TABLET PO (09:37)
[2024-07-02] MEDS: Cholecalciferol (Vitamin D3) 25 MCG TABLET PO (09:37)
[2024-07-02] MEDS: Multivitamin TABLET 1 TAB PO (09:38)
[2024-07-02] MEDS: Apixaban 5 MG TABLET PO ×2 (09:38→20:26)
[2024-07-02] MEDS: Gabapentin 400 MG CAPSULE 800 MG PO ×3 (09:38→20:26)
[2024-07-02] MEDS: Ascorbic Acid 500 MG TABLET PO (09:38)
[2024-07-02] MEDS: DULoxetine HCl 30 MG CAPSULE.DR PO ×2 (09:38→20:26)
[2024-07-02] MEDS: Baclofen 20 MG TABLET PO ×4 (09:38→20:26)
[2024-07-02] MEDS: Ferrous Sulfate 324 MG TABLET.DR PO (09:39)
[2024-07-02] MEDS: Hydroxyurea 500 MG CAPSULE PO (09:39)
--- NOTE | 2024-07-02 09:56 | PC.NURSE ---
Pt ate full breakfast, took morning meds with no issues. No new or acute complaints at this time. Plan of care ongoing.
[2024-07-02 11:50] VITALS: BP 126/73; PULSE 62; RESP 18; TEMP 36.5; O2SAT 96
--- NOTE | 2024-07-02 11:51 | MHC.CM.ED ---
Addendum entered by Jenn Salgado 07/02/24 12:35: Patient has a follow up appointment with Cynthia Goss 07/[address] Goss is the cosmetic surgeon that performed surgery on patient. [facility] made aware. Original Note: Patient remains in ER overflow. [facility] is willing to offer a bed if wound follow up is in their area. This is only due to transportation issues. Facility will also need insurance auth. Rafia Euceda RN, is assisting CM with making sure follow up can be arranged with [facility] plastic surgeon. Continue to monitor for d/c needs.
[2024-07-02 11:53] LABS: Glucose, Whole Blood 81 mg/dL (60-115)
--- NOTE | 2024-07-02 14:14 | MHC.CM.ED ---
Met with patient and [facility] Community Navigator RN in regards to discharge planning. Patient is hoping to return home with VNA and brother. Patient states ABRAM is able to do daily dressings and that his brother, William, is his RECYCLING ATTENDANT and can help. Verified with patient's mother that [facility]. Spoke with Fatou, patient's outsole caser at [facility]. Fatou can be reached via telephone at [phone]. Fatou explains nursing is ordered for every other day for dressing changes. [facility] is unable to commit to everyday. Fatou is aware that patient's brother is patient's PCT and does complete wound dressing changes on the days that VNA is not at patient's home. [facility] Community Navigator RN aware and will reach out to patient's brother William. Continue to monitor for d/c needs.
[2024-07-02 15:22] VITALS: BP 127/82; PULSE 65; RESP 20; TEMP 36.8; O2SAT 99
[2024-07-02 20:19] VITALS: BP 117/74; PULSE 63; RESP 20; TEMP 36.8; O2SAT 97
--- NOTE | 2024-07-02 22:40 | PC.NURSE ---
Assumed care of patient at 19:00. Patient seen in ED overflow. A&Ox4. VSS. Pt reports right extremity weakness and dim sensation due to hx of stroke, speech is clear though slow. Pt states this is his normal condition. +radial and dp pulses. Pt denies chest pain, sob, and n/v. Tolerating snacks without issue. Pt medicated for chronic hip pain with scheduled meds per JUL, +effect per pt. Pt refused colace, reports LBM yesterday 07/01. Patient calm, resting in bed watching tv and talking on his cell phone this evening. Wound dressing changed earlier this evening remains c/d/i. Continues on low air loss bed. Assisted with Q2h turning/repositioning as patient allows and tolerates. Bed alarm on and safety measures in place. Service mariee in place on patient's bedside table to accommodate patient's residual deficits, pt rings and is able to make needs known using this.
[2024-07-03] MEDS: oxyCODONE HCl Immed Release 15 MG TABLET 30 MG PO ×4 (02:11→20:32)
--- NOTE | 2024-07-03 02:13 | PC.NURSE ---
Medicated per mar.
--- NOTE | 2024-07-03 02:14 | PC.NURSE ---
Took over care from at 1:40am pt was sleeping, medicated for pain managment per order.
[2024-07-03 04:58] VITALS: BP 126/72; PULSE 62; RESP 18; TEMP 36.6; O2SAT 98
[2024-07-03] MEDS: Pantoprazole Sodium 20 MG TABLET.DR 40 MG PO (06:12)
--- NOTE | 2024-07-03 06:14 | PC.NURSE ---
medicated with per mar, no sign of distress, pt repositioned
[2024-07-03] MEDS: Gabapentin 400 MG CAPSULE 800 MG PO ×3 (08:36→20:31)
[2024-07-03] MEDS: DULoxetine HCl 30 MG CAPSULE.DR PO ×2 (08:36→20:31)
[2024-07-03] MEDS: Ferrous Sulfate 324 MG TABLET.DR PO (08:37)
[2024-07-03] MEDS: Apixaban 5 MG TABLET PO ×2 (08:37→20:32)
[2024-07-03] MEDS: Folic Acid 1 MG TABLET PO (08:37)
[2024-07-03] MEDS: Multivitamin TABLET 1 TAB PO (08:37)
[2024-07-03] MEDS: Cholecalciferol (Vitamin D3) 25 MCG TABLET PO (08:37)
[2024-07-03] MEDS: Baclofen 20 MG TABLET PO ×4 (08:37→20:32)
[2024-07-03] MEDS: Ascorbic Acid 500 MG TABLET PO (08:37)
[2024-07-03] MEDS: Hydroxyurea 500 MG CAPSULE PO (08:37)
--- NOTE | 2024-07-03 10:23 | MHC.CM.ED ---
Patient remains in ER overflow. [facility] is able to offer a bed but not before Thursday 07/06. Facility is in the process of obtaining ins auth. Patient, Priscilla RN, and Maryjane LUTZ aware. Attempted to notify patient's brother, William, via telephone at [phone]. Left voicemail explaining potential d/c plan with contact info. Patient will need [facility] PASRR Level 2. T/W submitted Level 1. Continue to monitor for d/c needs.
[2024-07-03 10:58] VITALS: BP 122/74; PULSE 69; RESP 15; TEMP 36.8; O2SAT 98
--- NOTE | 2024-07-03 19:14 | PC.NURSE ---
Assumed care at 1400, patient in bed watching TV, no complaints. Specialty bed delivered for patient but patient was not transfer due to lack of staff assistance. Patient unable to stand and pivot or help with transfer, considering large ulcer to Right hip and buttock area patient needs extra persons to help with transfer. Patient compliant with medication, took pills whole with water, ate 100% of dinner. Voiding in urinal 400ml yellow urine.
--- NOTE | 2024-07-03 21:13 | PC.NURSE ---
Patient medicated per JUL. Patients takes medications whole with water. Wound care provided to right hip wound, cleansed wound bed with NS, skin prep applied to wound edges, xeroform to wound bed, covered with dry gauze, abd pads, secured in place with paper tape. Wound bed beefy red, skin edges attached to wound bed, moderate amount of almonte drainage noted with mild odor, no s/s of active infection. Patient repositioned off right hip with pillow bed. Patient currently watching TV, offers no complaints, call mariee in patient's reach.
[2024-07-03 22:00] VITALS: BP 132/76; PULSE 64; RESP 18; TEMP 36.4; O2SAT 96
--- NOTE | 2024-07-04 00:27 | MHC.EDTECH ---
This tech took over care of pt at 2330,patient is sleeping resp rate WNL,call mariee in reach
[2024-07-04] MEDS: oxyCODONE HCl Immed Release 15 MG TABLET 30 MG PO ×4 (03:00→20:07)
[2024-07-04] MEDS: Pantoprazole Sodium 20 MG TABLET.DR 40 MG PO (05:53)
[2024-07-04] MEDS: Baclofen 20 MG TABLET PO ×4 (08:12→20:08)
[2024-07-04] MEDS: Folic Acid 1 MG TABLET PO (08:12)
[2024-07-04] MEDS: Gabapentin 400 MG CAPSULE 800 MG PO ×3 (08:12→20:08)
[2024-07-04] MEDS: Ferrous Sulfate 324 MG TABLET.DR PO (08:12)
[2024-07-04] MEDS: Apixaban 5 MG TABLET PO ×2 (08:12→20:07)
[2024-07-04] MEDS: Multivitamin TABLET 1 TAB PO (08:12)
[2024-07-04] MEDS: Ascorbic Acid 500 MG TABLET PO (08:12)
[2024-07-04] MEDS: Cholecalciferol (Vitamin D3) 25 MCG TABLET PO (08:12)
[2024-07-04] MEDS: DULoxetine HCl 30 MG CAPSULE.DR PO ×2 (08:12→20:07)
[2024-07-04 08:55] VITALS: BP 126/76; PULSE 85; RESP 16; TEMP 36.6; O2SAT 100
--- NOTE | 2024-07-04 09:16 | PC.NURSE ---
Care of Pt assumed at change of shift. Pt eats breakfast. Med pass completed without difficulty--Pt refused Colace and awaiting on Pharmacy to deliver Hydroxurea; will dispense upon arrival. Pt resting quietly with NAD at this time.
[2024-07-04] MEDS: Hydroxyurea 500 MG CAPSULE PO (09:49)
--- NOTE | 2024-07-04 10:26 | PC.NURSE ---
Pts bed changed to air loss bed. Pt reluctant but agreeable to try.
--- NOTE | 2024-07-04 11:57 | PC.NURSE ---
Lunch tray provided to Pt. Pt displeased with lunch items, securities adviser Crista calls kitchen for replacement meal. Awaiting new lunch tray.
[2024-07-04 14:51] VITALS: BP 118/71; PULSE 66; RESP 16; O2SAT 98
--- NOTE | 2024-07-04 14:52 | PC.NURSE ---
DSG change to R buttock: Old DSG removed. Mild drainage noted to old DSG. Drainage is red/brown in color. Wound bed is clean and absent of sxs of infection. Wound bed is beefy red. Mild odor present. Wound cleanse with NS and pat dry with sterile gauze. Xeroform applied to wound bed and covered sterile dry gauze. ABD pads applied and secured with tape. Pt tolerated procedure well. Pt assisted with cleansing via bath wipes at this time as well--Pt able to cleanse portions of himself without assistance.
--- NOTE | 2024-07-04 20:10 | PC.NURSE ---
this rn assumed care of pt @ 1900. pt medicated according to marcos barber at this time
[2024-07-04 21:36] VITALS: BP 137/75; PULSE 67; RESP 14; TEMP 36.7; O2SAT 97
[2024-07-05] MEDS: oxyCODONE HCl Immed Release 15 MG TABLET 30 MG PO ×4 (02:07→20:02)
--- NOTE | 2024-07-05 02:09 | PC.NURSE ---
pt medicated according to marcos pt declined repositioned at this time
[2024-07-05 05:47] VITALS: BP 118/73; PULSE 64; RESP 16; TEMP 36.4; O2SAT 98
[2024-07-05] MEDS: Pantoprazole Sodium 20 MG TABLET.DR 40 MG PO (06:06)
[2024-07-05] MEDS: Folic Acid 1 MG TABLET PO (09:37)
[2024-07-05] MEDS: DULoxetine HCl 30 MG CAPSULE.DR PO ×2 (09:37→20:02)
[2024-07-05] MEDS: Cholecalciferol (Vitamin D3) 25 MCG TABLET PO (09:38)
[2024-07-05] MEDS: Ascorbic Acid 500 MG TABLET PO (09:38)
[2024-07-05] MEDS: Ferrous Sulfate 324 MG TABLET.DR PO (09:38)
[2024-07-05] MEDS: Gabapentin 400 MG CAPSULE 800 MG PO ×3 (09:38→20:02)
[2024-07-05] MEDS: Multivitamin TABLET 1 TAB PO (09:38)
[2024-07-05] MEDS: Baclofen 20 MG TABLET PO ×4 (09:39→20:01)
[2024-07-05] MEDS: Apixaban 5 MG TABLET PO ×2 (09:39→20:01)
[2024-07-05] MEDS: Hydroxyurea 500 MG CAPSULE PO (10:45)
--- NOTE | 2024-07-05 11:26 | PC.NURSE ---
Assumed care of this patient at 1000, patient resting quietly on hospital airloss bed, denies pain at this time.
--- NOTE | 2024-07-05 12:22 | MHC.CM.PN ---
[facility] HAS AUTH FOR THURSDAY 07/06. CM WILL F/U WITH CENTER REGARDING TRANSPORT TIME IN AM. CM WILL CONTINUE TO FOLLOW.
[2024-07-05 13:49] VITALS: BP 120/64; PULSE 67; RESP 18; TEMP 36.2; O2SAT 92
--- NOTE | 2024-07-05 14:26 | PC.NURSE ---
Dressing change completed, patient able to position himself for dressing change w/o assistance. Xeroform, dry gauze, abd pad, taped in place. Time and dated. Patient tolerated dressing change well. Repositioned in bed to patient's comfort. Patient has been turning from side to side in bed without assistance.
[2024-07-05 21:50] VITALS: BP 109/67; PULSE 58; RESP 18; TEMP 36.3; O2SAT 96
--- NOTE | 2024-07-05 22:10 | PC.NURSE ---
Patient resting in hospital bed in no distress, lights dimmed, call mariee in patient's reach.
[2024-07-06] MEDS: oxyCODONE HCl Immed Release 15 MG TABLET 30 MG PO ×3 (02:04→14:20)
[2024-07-06 05:43] VITALS: BP 127/77; PULSE 63; RESP 16; TEMP 36.8; O2SAT 96
[2024-07-06] MEDS: Pantoprazole Sodium 20 MG TABLET.DR 40 MG PO (06:00)
[2024-07-06] MEDS: Apixaban 5 MG TABLET PO (08:15)
[2024-07-06] MEDS: Cholecalciferol (Vitamin D3) 25 MCG TABLET PO (08:15)
[2024-07-06] MEDS: Multivitamin TABLET 1 TAB PO (08:15)
[2024-07-06] MEDS: Ascorbic Acid 500 MG TABLET PO (08:16)
[2024-07-06] MEDS: DULoxetine HCl 30 MG CAPSULE.DR PO (08:16)
[2024-07-06] MEDS: Folic Acid 1 MG TABLET PO (08:16)
[2024-07-06] MEDS: Baclofen 20 MG TABLET PO ×2 (08:16→14:20)
[2024-07-06] MEDS: Gabapentin 400 MG CAPSULE 800 MG PO ×2 (08:16→14:20)
[2024-07-06] MEDS: Ferrous Sulfate 324 MG TABLET.DR PO (08:17)
--- NOTE | 2024-07-06 10:15 | MHC.CM.ED ---
Patient remains in ER overflow. Insurance auth obtained from [facility] via BLS at 1pm. [facility] booked. [facility] with chart. Patient, brother William, Nadege BUSTAMANTE and Mary LUTZ aware. Oxycodone prescription will be sent to [facility] in [place]. Mary LUTZ has been asked to order an additional PO dose of oxycodone prior to transport. Continue to monitor for d/c needs.
[2024-07-06 11:16] VITALS: BP 133/74; PULSE 88; RESP 13; TEMP 37.3; O2SAT 94
[2024-07-06] MEDS: Hydroxyurea 500 MG CAPSULE PO (11:20)
--- NOTE | 2024-07-06 14:30 | PC.NURSE ---
Pt premedicated for pain prior to transfer to [place], per orders; dressing to R hip wound changed/dated; pt tolerated well; awaiting EMS for transport
[2024-07-06 15:15] VITALS: BP 133/74; PULSE 88; RESP 13; TEMP 37.3; O2SAT 94
--- NOTE | 2024-07-06 15:45 | PC.NURSE ---
Bedside report given to EMS for transfer; all pt belongings with EMS staff; report to [facility] attempted X3 at this time; unable to reach nurse for report at this time
== END 2024-07-06 15:46 ==
PROVIDERS: Emergency Provider Emergency Medicine; PCP Nurse Practitioner Family
DX: S71.001A Unspecified open wound, right hip, initial encounter (principal); M25.551 Pain in right hip; G89.29 Other chronic pain; R26.81 Unsteadiness on feet; X58.XXXA Exposure to other specified factors, initial encounter; Y93.I9 Activity, other involving external motion; Y92.9 Unspecified place or not applicable; Y99.9 Unspecified external cause status; Z79.891 Long term (current) use of opiate analgesic; Z03.818 Encounter for observation for suspected exposure to other biological agents ruled out; Z79.899 Other long term (current) drug therapy
CPT/HCPCS: 0241U; 36415; 80048; 80076; 82947; 85025; 97162; 99284; 99285

== ENCOUNTER 2025-02-24 11:28 | Outpatient (AMB) | payer MEDICAID, SELFPAY ==
--- NOTE | 2025-02-24 11:33 | MHC.PC.OV ---
Vital Signs 02/24/25 11:45 BMI Reason not done Patient refused/unable BP 132/70 Blood Pressure Location Lt brachial Position Sitting Respiration 12 Pulse 82 Pulse Source Pulse Oximeter Temp 97.3 F Temp Source Oral Pulse Oximetry (%) 96 Oxygen Delivery Method Room Air Intake Visit Reasons: Wound care / see comments. Intake Note: Patient was in rehab and patient got discharge Feb, from [facility]. Patient needs refill on meds. Bus Repair Supervisor Required: No Allergies No Known Allergies Allergy (Verified 02/24/25 17:57) Medication List - Last Reconciled 02/24/25 by Kisha Solano, DIESEL POWERPLANT SUPERVISOR-BC acetaminophen 1,000 mg PO Q8H PRN apixaban (Eliquis) 5 mg PO BID ascorbic acid (vitamin C) (Vitamin C) 500 mg PO DAILY baclofen 20 mg PO QID canakinumab (PF) (Ilaris (PF)) 150 mg subcut Q28D cholecalciferol (vitamin D3) (Vitamin D3) 25 mcg PO DAILY clindamycin HCl (Cleocin HCl) 300 mg PO BID docusate sodium 100 mg PO BID duloxetine 30 mg PO BID ferrous sulfate 325 mg PO DAILY folic acid 1 mg PO DAILY gabapentin 400 mg PO TID hydroxyurea 500 mg PO DAILY [multivitamin 1 tab PO DAILY] nystatin 1 appl topical BID-TID oxycodone 10 mg PO BID PRN pantoprazole 40 mg PO DAILY@0630 rifampin 300 mg PO Q12H tizanidine 4 mg PO Q8H PRN Tobacco use date assessed: 02/24/25 Dental Screening Dental Screen Date: 02/24/25 Did you have a dental visit in the last 12 months?: Yes Did you have a dental problem in the last 6 months where you did not have access to dental care?: No Was dental information given to patient?: Patient has dentist HPI HPI Comments History of Present Illness Details 39 y/o M with CVA with R hemiparesis (2020) now on Eliquis, hidradenitis suppurativa, opiate dependence, Iron def anemia, Benign-appearing right renal cysts, ANNA, GERD, current smoker, marijuana use, HLD, stage 4 pressure ulcer Social: Living at home w/ Mom and Brother; Wheelchair dependent Specialist: [facility] in [place] [facility] Health Maintenance: Tdap reports UTD Flu shot 01/2024 Here today for a Transitional Care Management Visit Discharge summary not reviewed, as it was not available, despite request. Admission Date: 07/07/24 Discharge Date: 02/16/25 Hospital: [facility] Date of interactive contact with Nurse Navigator: as documented in chart Pending diagnostic tests/treatments: Pending consults: DME: PT/OT/QUALITY LAB TECHNICIAN: [facility] Home Health Aide/CHIEF DOG LICENSE INSPECTOR: Community Resources: Asst Living: Home Health: Hospice: Support group: Other: Referrals: None Medications reconciled & updated. During todays TCM visit, the d/c summary was reviewed, along with the need for or follow-up on pending diagnostic tests and treatments, as necessary interaction with other health career center director who will assume or reassume care of the beneficiary?s system-specific problems was done or is being worked on, education was provided to the beneficiary, family, guardian, and/or caregiver, referrals to establish or re-establish and arrange needed community resources we completed, assistance in scheduling required follow-up with community providers and services & finally updated medication list given to patient/caregiver Complex refractory wound: - Required complex eye specialist care. - Requires continued management to prevent reopening. - Inadequate local resources for wound complexity. - Transportation issue to specialist visits. - managed in [place]; local wound care deferred care; pt made aware he will need to coordinate rides there for his care. - He needs subq inj q 28 days. Mom cant do this. Next due 03/01 D/c home w/ [facility] for PT/OT but no skilled services. I placed a NN referral to help asst and ask for SN to [facility] on how to inject. Made aware he is complex and requires a great deal of help signing out AMA and going home w/ less help than before is not in his best interest Mom is caring for him;asking for more support Brother no longer involved in care David has poor insight and just wants to be home ; which i understand. Medication management issues: - asks for refill on oxycontin and oxycodone. tells us he is taking oxycodone 30 mg q6 and oxycontin 20mg BID. This is not whats listed on the patient dc instructions nor what is in HEALTHCARE NETWORK CONSULTANT. The patient instuctions indicate a taper when i look at the med card, there is 1 of 2 for the oxycodone 10mg 28 of 56 tabs. He states he didnt get a 2nd med card I told him he would need to contact the long-term for this. No additional Rx will be written. Review of Systems - Skin: Reports complex wound care needs. - Cardiovascular: Denies current issues. - Respiratory: Denies symptoms. - Gastrointestinal: Reports medication need for reflux control. - Musculoskeletal: Denies acute pain. - Neurological: Denies significant findings. - Hematological: Reports need for iron supplementation. Physical Exam Awake, Alert, NAD, chronically ill appearing, sitting in wheelchair RRR LS CTAB Right hemiparesis upper and lower ext, R facial droop, slow slurred speech, word finding difficulties PP normal bilat, no edema Skin of buttocks with large post-surgical changes to both buttocks and thigh of R leg; pressure ulcer L buttocks- dressing not removed; stage 2 pressure ulcer R buttocks limited to skin break down. Mood and affect appropriate, accompanied by mom Results - Medication inventory discrepancies reported. - Additional third-green party evaluation necessary for medication reconciliation. Discussion Notes I discussed the patient's ongoing concerns regarding wound management and the need for continued specialist care in [place] to prevent further complications. I emphasized the importance of maintaining regular visits and considering alternative transport solutions given the distance involved. We reviewed the missed medication card issue and the steps to resolve this with the rehab facility to ensure controlled substances are managed and available. The importance of managing prescriptions and obtaining required medications in full was highlighted. I recognized the difficulty of managing without home support and the necessity to involve pediatric social worker for a potential home evaluation and care support needs. The patient confirmed understanding and expressed agreement with pursuing solutions as discussed. Patient was given time to ask questions. All questions were answered to their satisfaction. Assessment and Plan 1. Complex refractory wound - Continue specialist care in [place]. - Address transportation. NN referral to help - Monitor wound healing. 2. Medication management issues -Pt aware he needs to call Rehab to get the missing oxycodone. Filled 02/07 for #56. 3. Lack of home support services - Contact pediatric social worker. - Assess home support needs. Overall very complex pt. Call to Rehab center for a dc summary. Was told there was not one. I got recert notes which did not provide a great deal of info. Unsure how long he should be on/cont the Clindamycin and Rifampin. Will have staff contact the rehab to get insight into this. He is at risk for readmission d/t the above. I will order repeat labs and Urine tox screen; plan will be to cont the oxycodone taper for him. Refills only as appropriate w/o escalation given his hx and the improvement in his clinical cause of pain, which was the extensive excision of his buttocks. Consent Patient was informed and verbally consented to the use of an ambient scribe for clinic note documentation during this visit. Total time spent caring for the patient today was 120 minutes. This includes time spent before the visit reviewing the chart, time spent during the visit, and time spent after the visit on documentation, reviewing laboratory results, diagnostic imaging, medications, performing a medically necessary evaluation, counseling on diagnoses, care coordination, ordering appropriate tests, ordering appropriate medications, review of tests performed by other providers, reporting test results with the patient, communication with other healthcare providers. [facility] Medical History (Updated 02/25/25 @ 12:43 by Kisha Solano, [facility]) Anxiety and depression CVA (cerebral vascular accident) GERD (gastroesophageal reflux disease) Hidradenitis Hidradenitis suppurativa Hypertension Imbalance Neuropathy Opiate abuse, continuous Surgical History No pertinent past surgical history Family History Mother Mental health disorder Asthma Thyroid disease Cervical cancer Maternal Grandmother Mental health disorder Asthma Diabetes Cardiovascular disease Thyroid disease Father Substance abuse Hypertension High cholesterol Cardiovascular disease Clotting disorder Maternal Grandfather Diabetes Cardiovascular disease Paternal Grandfather Clotting disorder Social History Household Members: Family Both parents involved: No Caregiver staying overnight: Yes (mom) Housing: Apartment Are you a primary healthcare network consultant to a significant other at home: No Do you presently have visiting nurse or other home services: Yes 75 years or older and lives alone: No Alcohol intake: never Patient Tobacco Use Status: Never used Tobacco Cigarettes Per Day: 4 e-Cigarette/Vaping Use: Never Used Second Hand Smoke Exposure: No Substance Use Type: Marijuana Advance Directives Date on File: 02/19/23 service: No Current occupational status: disabled Cognitive needs: No Hearing needs: No Vision needs: No Questionnaire PHQ-9 Over the last 2 weeks, how often have you been bothered by any of the following problems? 1. Little interest or pleasure in doing things: nearly every day 2. Feeling down, depressed, or hopeless: nearly every day 3. Trouble falling or staying asleep, or sleeping too much: several days 4. Feeling tired or having little energy: nearly every day 5. Poor appetite or overeating: more than half the days 6. Feeling bad about yourself - or that you are a failure or have let yourself or your family down: more than half the days 7. Trouble concentrating on things, such as reading the newspaper or watching television: more than half the days 8. Moving or speaking so slowly that other people could have noticed. Or the opposite - being so fidgety or restless that you have been moving around a lot more than usual: several days 9. Thoughts that you would be better off or of hurting yourself in some way: not at all Total score: 17 Depression Screening Interpretation: Positive Depression Screening Follow-up: Existing condition and Declines treatment Depression Screening Done: Yes 97353 - PHQ-9 Billing: Yes Source: Developed by Drs. Bismark Gordon, Carmen Hardy, See Case and colleagues, with an educational sandra from [employer]. Thrive Questionnaire Date Thrive assessed: 02/24/25 I am a: Parent/Caregiver What is your living situation today?: I have a steady place to live Within the past 12 months, did the food you bought not last and you didn't have the money to get more?: Often true Within the past 12 months, did you worry whether your food would run out before you got money to buy more?: I choose not to answer this question Do you have trouble paying for medicines?: I choose not to answer this question Do you have trouble getting transportation to medical appointments?: I choose not to answer this question Do you have trouble paying your heating and electricity bill?: No Do you have trouble taking care of your child, family member or friend?: No Do you have trouble with day-to-day activities such as bathing, preparing meals, shopping, managing finances, etc.?: I choose not to answer this question Are you currently unemployed and looking for a job?: I choose not to answer this question Are you interested in more education?: I choose not to answer this question Please select the resources that you would like help with: None Currently or been in a relationship where the following occur: I choose not to answer THRIVE Score: 1 AUDIT C Alcohol Use Questionnaire (AUDIT-C) 1. How often do you have a drink containing alcohol?: Never 3. How often do you have six or more drinks on one occasion?: Never Total Score: 0 Score Reviewed/Action Taken: Yes ANNA-7 AMB Questionnaire ANNA-7 Date ANNA - 7 assessed: 02/24/25 Feeling nervous, anxious, or on edge: 0 = Not at all Not being able to stop or control worryin = Not at all Worrying too much about different things: 0 = Not at all Trouble relaxin = Not at all Being so restless that it is hard to sit still: 0 = Not at all Becoming easily annoyed or irritable: 0 = Not at all Feeling afraid as if something awful might happen: 0 = Not at all Total ANNA-7 score (0-4 normal; 5-9 mild; 10-14 moderate; 15-21 severe): 0 Source: Developed by Drs. Bismark Gordon, Carmen Hardy, See Case and colleagues, with an educational sandra from [employer]. ANNA-7 Assessment Billing ANNA-7 Assessment Tool: ANNA-7 Assessment 84333 Physical exam (Primary Care) Vital Signs: Last Vital Signs Temp 97.3 F 02/24/25 11:45 Pulse 82 02/24/25 11:45 Resp 12 02/24/25 11:45 BP 132/70 02/24/25 11:45 Pulse Ox 96 02/24/25 11:45 Oxygen Delivery Method Room Air 02/24/25 11:45 Tobacco/Smoking Status: Tobacco use Status Tobacco use date assessed 02/24/25 02/24/25 11:36 Patient Tobacco Use Status Never used Tobacco 02/24/25 11:36 e-Cigarette/Vaping Use Never Used 02/24/25 11:36 PHQ-9: PHQ-9 Score PHQ-9: Total score 17 02/24/25 18:23 Depression Screening Interpretation: Positive Depression Screening Follow-up: Existing condition and Declines treatment Thrive Assessment: Date of Thrive Assessment Date Thrive assessed 02/24/25 02/24/25 11:36 Currently or been in a relationship where the following occur: I choose not to answer Coding Level of Care Code TCM High MDM <= 7 Days Complex EM visit Add On G2211 Diagnoses Hospital discharge follow-up Z09 ANNA (generalized anxiety disorder) F41.1 Mild episode of recurrent major depressive disorder F33.0 Major depression episode severity: mild Uncomplicated opioid dependence F11.20 Substance use status: uncomplicated Pressure injury of skin of left buttock, unspecified injury stage L89.329 Pressure injury stage: unspecified pressure injury stage Laterality: left Surgical wound present T14.8XXA Cerebrovascular accident (CVA) due to occlusion of left carotid artery I63.232 CVA mechanism: occlusion Laterality of affected vessel: left Precerebral and cerebral artery: carotid artery Right hemiparesis G81.91 Chronic pain syndrome G89.4 Chronic pain type: chronic pain syndrome Suppurative hidradenitis L73.2 Iron deficiency anemia due to chronic blood loss D50.0 Iron deficiency anemia type: chronic blood loss Additional Codes ANNA-7 Assessment Billing - ANNA-7 Assessment Tool: ANNA-7 Assessment 01360 ([id number]) PHQ-9 - 46669 - PHQ-9 Billing: Yes ([id number]) Assessment & Plan Assessment & Plan (1) Hospital discharge follow-up: Code(s): Z09 - Encounter for follow-up examination after completed treatment for conditions other than malignant neoplasm Category: Medical (2) ANNA (generalized anxiety disorder): Code(s): F41.1 - Generalized anxiety disorder Category: Medical (3) MDD (major depressive disorder), recurrent episode: Code(s): F33.9 - Major depressive disorder, recurrent, unspecified Category: Medical Qualifiers: Major depression episode severity: mild Qualified Code(s): F33.0 - Major depressive disorder, recurrent, mild (4) Opiate dependence: Code(s): F11.20 - Opioid dependence, uncomplicated Category: Medical Qualifiers: Substance use status: uncomplicated Qualified Code(s): F11.20 - Opioid dependence, uncomplicated (5) Bed sore on buttock: Code(s): L89.309 - Pressure ulcer of unspecified buttock, unspecified stage Category: Medical Qualifiers: Pressure injury stage: unspecified pressure injury stage Laterality: left Qualified Code(s): L89.329 - Pressure ulcer of left buttock, unspecified stage (6) Surgical wound present: Code(s): T14.8XXA - Other injury of unspecified body region, initial encounter Category: Medical (7) CVA (cerebral vascular accident): Comment: 2020 dense hemiparesis on the right side, CTA of the head and neck showed blockage from upper end of left ICA all the way to left MCA and KRISTAL origin no blood flow on the left side patient started on tPA transferred to at [facility] neurointerventional Code(s): I63.9 - Cerebral infarction, unspecified Category: Medical Qualifiers: CVA mechanism: occlusion Laterality of affected vessel: left Precerebral and cerebral artery: carotid artery Qualified Code(s): I63.232 - Cerebral infarction due to unspecified occlusion or stenosis of left carotid arteries (8) Right hemiparesis: Comment: s/p CVA affecting right upper and lower ext Code(s): G81.91 - Hemiplegia, unspecified affecting right dominant side Category: Medical (9) Chronic pain: Code(s): G89.29 - Other chronic pain Category: Medical Qualifiers: Chronic pain type: chronic pain syndrome Qualified Code(s): G89.4 - Chronic pain syndrome (10) Suppurative hidradenitis: Code(s): L73.2 - Hidradenitis suppurativa Category: Surgical (11) Iron deficiency anemia: Code(s): D50.9 - Iron deficiency anemia, unspecified Category: Medical Qualifiers: Iron deficiency anemia type: chronic blood loss Qualified Code(s): D50.0 - Iron deficiency anemia secondary to blood loss (chronic) Plan . Orders: Orders Complete Blood Count no Diff Today D50.0 - Iron deficiency anemia secondary to blood loss (chronic), F11.20 - Opioid dependence, uncomplicated IRON PROFILE Today D50.0 - Iron deficiency anemia secondary to blood loss (chronic), F11.20 - Opioid dependence, uncomplicated Vitamin D 25-OH Total Today D50.0 - Iron deficiency anemia secondary to blood loss (chronic), F11.20 - Opioid dependence, uncomplicated Drug Screen Urine Today D50.0 - Iron deficiency anemia secondary to blood loss (chronic), F11.20 - Opioid dependence, uncomplicated Referrals Nurse Navigator Referral Z09 - Encounter for follow-up examination after completed treatment for conditions other than malignant neoplasm Medications: New hydroxyurea 500 mg PO DAILY 30 caps 0RF tizanidine 4 mg PO Q8H PRN 30 tabs 0RF muscle spasm Refilled duloxetine 30 mg PO BID 180 caps 2RF Discontinued oxycodone Partial Fill upon patient request. Discontinued Reason: Patient Completed Course 20 mg PO QID PRN pain
[2025-02-24 11:45] VITALS: BP 132/70; PULSE 82; RESP 12; TEMP 36.3; O2SAT 96
== END 2025-02-24 14:38 | disposition home or self-care (01) ==
LOC: HO.HMCFM 11:29
PROVIDERS: PCP Nurse Practitioner Family; Visit Provider Nurse Practitioner Family
DX: I63.232 Cerebral infarction due to unspecified occlusion or stenosis of left carotid arteries (principal); F11.20 Opioid dependence, uncomplicated; G81.91 Hemiplegia, unspecified affecting right dominant side; Z09 Encounter for follow-up examination after completed treatment for conditions other than malignant neoplasm; F41.1 Generalized anxiety disorder; F33.0 Major depressive disorder, recurrent, mild; L89.329 Pressure ulcer of left buttock, unspecified stage; T14.8XXA Other injury of unspecified body region, initial encounter; G89.4 Chronic pain syndrome; L73.2 Hidradenitis suppurativa; D50.0 Iron deficiency anemia secondary to blood loss (chronic)

== ENCOUNTER → 2025-02-24 11:28 | Outpatient (BNVA) | payer MEDICAID, SELFPAY | PROVIDERS: PCP Nurse Practitioner Family; Visit Provider Nurse Practitioner Family | DX: F41.1 Generalized anxiety disorder (principal); F33.0 Major depressive disorder, recurrent, mild; F11.20 Opioid dependence, uncomplicated; L89.329 Pressure ulcer of left buttock, unspecified stage; I69.351 Hemiplegia and hemiparesis following cerebral infarction affecting right dominant side; G89.4 Chronic pain syndrome; L73.2 Hidradenitis suppurativa; D50.0 Iron deficiency anemia secondary to blood loss (chronic) | CPT/HCPCS: 96127; 99212 ==

== ENCOUNTER → 2025-03-08 15:10 | Outpatient (BNVA) | payer OTHER, SELFPAY | PROVIDERS: PCP Nurse Practitioner Family | DX: Z02.89 Encounter for other administrative examinations (principal) | CPT/HCPCS: 99211 ==

== ENCOUNTER 2025-03-17 09:40 | Outpatient (REF) | payer OTHER, SELFPAY ==
--- OUTSIDE RECORDS SUMMARY | 2025-03-17 10:52 | XMS_ITS | Clinical Summary ---
Author Organization [facility] Address [address] [place] [address] Care Team Providers Care [employer] Name Role Phone Kisha Navarro Primary Care Provider [phone] Allergies No known active allergies Medications ferrous [...] a day. Active syringe with needle (BD Luer-Jesisca Syringe) 3 mL 18 x 1 1/2 syringeIndicati ons:Hidradeniti s suppurativa Please use to draw up Ilaris every 28 days. 4 each 4 02/20/2024 9:25 PM EDT 4 Active needle, disp, 27 gauge (BD Regular Bevel [place]) 27 gauge x 1/2 needleIndicatio ns:Hidradenitis suppurativa [...] mg by mouth once a day. Active oxyCODONE IR (ROXICODONE) 30 mg tablet [...] 8 hours as needed for pain. Active nystatin (MYCOSTATIN) 100,000 unit/gram powderIndicatio ns:Candidal intertrigo Apply topically to the affected area every night. Apply topically to the right and left armpit to help with the rash nightly until resolved 60 g 5 Active hydrocortisone 2.5% ointmentIndicat ions:Candidal intertrigo Apply topically to the affected area in the morning. Apply topically to the right and left armpit to help with the rash every morning until resolved 28.35 g 5 Active amLODIPine (NORVASC) 5 mg tablet Take 5 mg by mouth once a day. 5 Active cyclobenzaprine (FLEXERIL) 10 mg tablet Take 10 mg by mouth 3 times a day as needed for muscle spasms. 5 Active ibuprofen (MOTRIN) 800 mg tablet Take 800 mg by mouth every 8 hours as needed for pain. 5 Active triamcinolone acetonide (KENALOG) 0.1% cream 5 Active canakinumab, PF, (Ilaris, PF,) 150 mg/mL solution INJECT 1 ML (150MG) UNDER THE SKIN EVERY 28 DAYS 1 mL 11 5 Active Active Problems Problem Noted Date Diagnosed Date Candidal intertrigo 07/23/2024 Assessment & Plan (07/23/2024 3:44 PM EDT): 07/22/24: Located in B/L armpits. Continue use of nystatin powder BID. Chronic pain 07/23/2024 Right hemiparesis 05/15/2024 Assessment & Plan (05/16/2024 6:36 AM [...] in 2022. No records of this including TTE/JUTSICE on file. His home Eliquis 5 mg twice daily was held 3 days RESIDENT DIRECTOR in preparation for his surgery. Patient [...] mg twice daily was held 3 days RESIDENT DIRECTOR in preparation for his surgery. Patient [...] mg twice daily was held 3 days RESIDENT DIRECTOR in preparation for his surgery. Patient [...] daily Hidradenitis suppurativa 01/09/2023 Assessment & Plan (07/23/2024 4:39 PM EDT): Hidradenitis suppurativa (HS), Degroot stage III PGA2, chronic, severe, and recalcitrant to numerous therapies, located in buttocks and axillae, complicated by lymphedema; dramatically improved with canakinumab therapy and excision of left buttock involvement by plastic surgery 01/2023 and excision of right buttocks by plastic surgery on 05/2024. Current pain regimen: Baclofen 10 mg q6h PRN Tizanidine 4mg q8h PRN Tylenol 650 mg q4h prn Cymbalta 30mg BID Oxycodone 30mg q6h Gabapentin 400mg q8h - 07/22/24: Patient received kenalog injection to medial aspect R gluteal debridement - Continue canakinumab every 28 days, 5 refills remaining, thus follow up in 6 months - Per patient report pain tolerable. Pain management is an important aspect of his care given his chronic pain despite opioid use and several prior referrals to pain management providers. His surgery was expected to help alleviate his symptoms similar to the left buttock where he is asymptomatic now after surgery. David has a new primary care provider named Kisha Solano. She will likely need to be the one to manage David's postop pain as an outpatient, since we previously were unsuccessful at referring him to several pain mgmt specialists. - We asked the patient to call us with any new or changing lesions, problems, or questions arising prior to the next visit. Assessment & Plan (05/18/2024 3:53 PM EST): [...] course of abx. Eliquis held 3 days RESIDENT DIRECTOR. Admitted to plastic surgery team with [...] course of abx. Eliquis held 3 days RESIDENT DIRECTOR. Admitted to plastic surgery team with [...] course of abx. Mary held 3 days RESIDENT DIRECTOR. Admitted to plastic surgery team with [...] plastics including pain management (currently on dilaudid ADMITTING COORDINATOR) -no obvious signs of systemic infection, but [...] per plastics including pain management (off dilaudid ADMITTING COORDINATOR) -no obvious signs of systemic infection, but [...] him and his parents. He speaks decent zambian, but his ability to convey his medical history is limited by his stroke, and his parents require a polysomnograph tech. It sounds like he was in an [...] him and his parents. He speaks decent zambian, but his ability to convey his medical history is limited by his stroke, and his parents require a polysomnograph tech. It sounds like he was in an [...] Encounters Date Type Department Care Team Description 01/25/2025 Refill [facility]atology [address] [place] [address] Building Maintenance Repairer: Cheko Horvath MD 12/23/2024 Telephone [facility] 4th Floor [address], Fourth [place] [address] Building Maintenance Repairer: Drea Langley Prior Authorization from Last 3 Months Immunizations Immunization Administration Dates Next Due Influenza, Injectable, Quadrivalent, Preservativ e Free 05/18/2022 Influenza, Trivalent, MDV, Injectable 02/08/2024 Tetanus Toxoid, Reduced Diph theria Toxoid, and Acellular Pertussis Vaccine, Adsorbed 09/13/2019 Family History Medical History Relation Name Comments No Known Problems Father No Known Problems Mother Relation Name Status Comments Father Alive Mother Alive Social History Tobacco Use Types Packs/Day Years Used Date Smoking Tobacco: Every Day Cigarettes 0.5 19.8 Started: 2005 Smokeless Tobacco: Never Tobacco Cessation:Ready [...] 72 05/19/2024 11:42 AM EST Temperature 36.5 C (97.7 F) 05/19/2024 11:42 AM EST Respiratory Rate 16 05/19/2024 11:42 AM EST Oxygen Saturation 98% 05/19/2024 11:42 AM EST Inhaled Oxygen Concentration - - Weight 99.3 kg (219 lb) 07/23/2024 2:55 PM EDT Height 193 cm (6' 4 ) 05/17/2024 5:15 AM EST Body Mass Index 26.66 05/17/2024 5:15 AM EST Plan of Treatment Upcoming Encounters Date Type Department Care Team (Late st Contact Info) Description 06/10/2025 3:45 PM EST Office Visit [facility] 4th Floor [address], Fourth [place] [phone] Building Maintenance Repairer: Glenys Zee MD [address] [place] [id number] Health Maintenance Due Date Last Done Comments Varicella Vaccines (1 of 2 - 13+ 2-dose series) 1999 Hepatitis B Vaccines (1 of 3 - 19+ 3-dose series) 2005 Pneumococcal Vaccine: Pediat juanita (0-5 Years) and At-Risk Patients (6-50 Years) (1 of 2 - PCV) 2005 Alcohol/Substance Use Screening 05/13/2024 Depression Screening and Follow-Up 05/13/2024 Social Drivers of Health Yandy ual Screening 05/13/2024 COVID-19 Vaccine (1 - 2024-2 6 season) 2025 Influenza Vaccine (#1) 2025 02/08/2024, 2022 Basic Metabolic Panel 05/16/2025 05/16/2024 , 05/15/2024, 02/10/2023, Additional history exists Diabetes Screening 05/16/2027 05/16/2024, 0 05/15/2024, 02/10/2023, Additional history exists DTaP,Tdap,and Td Vaccines (2 - Td or Tdap) 09/12/2029 09/13/2019 RSV Vaccine (60+ years old a nd patients) (1 - 1-dose 75+ series) 2061 HIV Screening Completed 07/12/2022 Hepatitis C Screening Completed 07/12/2022 Procedures * Due to [place] state law, this organization might not be sharing negative HIV tests. Procedure Name Priority Date/Time Associated Diagnosis Comments BASIC METABOLIC PANEL Routine 05/16/2024 4:45 AM EST HEPATITIS C ANTIBODY W/REFLEX TO HCV RNA, QUANTITATIVE PCR Routine 07/12/2022 3:49 PM EST Hidradenitis suppurativa from Last 3 Months or Most Recently Relevant to Health Maintenance Results * Due to [place] state law, this organization might not be sharing negative HIV tests. * (ABNORMAL) Basic metabolic panel (05/16/2024 4:45 AM EST) NA 141 135 - 145 mmol/L 05/16/2024 5:22 AM EST [facility] K 4.5 3.5 - 5.3 mmol/L 05/16/2024 5:22 AM EST [facility] Cl 104 98 - 107 mmol/L 05/16/2024 5:22 AM EST [facility] CO2 25 22 - 32 mmol/L 05/16/2024 5:22 AM EST [facility] BUN 13 7 - 23 mg/dL 05/16/2024 5:22 AM EST [facility] Creatinine 0.77 0.60 - 1.30 mg/dL 05/16/2024 5:22 AM EST [facility] Glucose 119(H) 65 - 99 mg/dL 05/16/2024 5:22 AM EST [facility] Calcium 8.4(L) 8.6 - 10.5 mg/dL 05/16/2024 5:22 AM EST [facility] Anion Gap 12 5 - 15 05/16/2024 5:22 AM EST [facility] eGFR >90 >=60 mL/min/1. 73m2 05/16/2024 5:22 AM EST [facility] Comment:The estimated glomer ular [...] 4:45 AM EST 05/16/2024 4:54 AM EST Cynthia Gill MD LAB BLOOD ORDERABLES Final Result [facility] [address] [place] [address], * Hepatitis C Antibody w/Reflex to HCV RNA, Quantitative PCR (07/12/2022 3:49 PM EST) Hepatitis C Antibody NON-REACT JOSELITO NON-REACT JOSELITO 07/13/2022 7:25 AM EST [facility] Signal To Cut-Off 0.05 <1.00 07/13/2022 7:25 AM EST [facility] Comment: HCV antibody was non-reactive. There is no laboratory evidence of HCV infection. In most cases, no further action is required. However, if recent HCV exposure is suspected, a test for HCV RNA (test code 97837) is suggested. For additional information please refer to http://education.Mercant[employer]/faq/BGI69n3 (This link is being provided for informational/ educational purposes only.) Blood Structure of peripheral vein / Unknown Venipuncture / Unknown 07/12/2022 3:49 PM EST 07/12/2022 3:49 PM EST Narrative [facility] - 07/13/2022 7:25 AM EST [facility] Received Date: Glenys Thibodeaux MD LAB BLOOD ORDERABLES Final R esult KAREN KOENIG [address] [place] [address] [address]rd Floor, [place] [address], [place] [phone] [facility] [address], [place] [address], [place] [phone] from Last 3 Months or Most Recently Relevant to Health Maintenance Insurance Advance Directives Documents on File Type Date Recorded Patient Home Health Billing Specialist Expl anation Health Care Proxy 05/15/2024 12:17 [...] Name Relationship Healthcare Agent Relationship Communication Olivia sylvia Mother Health Care Agent [email or web address] Elaineio Brother [facility] Care Agent Care Teams [employer] Relationship Specialty Start Date End Date Kisha Navarro [address] [place] [address] PCP - General 03/25/[address] [address] Academic Primary Care Attending 05/14/22 Dr Marylou Vargas [address] [place] [address] Neurology 07/31/22 Dr Waldo Cortez [address] [place] [address] Referring Physician 07/31/22
[2025-03-17 10:58] LABS: Hematocrit 42.9 % (42.0-52.0); Hemoglobin 14.6 g/dl (14.0-18.0); Mean Corpuscular HGB Conc 34.0 g/dl (31.0-36.0); Mean Corpuscular Hemoglobin 36.0 pg (27.0-33.0); Mean Corpuscular Volume 105.7 fL (80.0-98.0); NRBC Abs Auto 0.000 X10*3/uL (0.0-0.012); NRBC Pct Auto 0.0 /100WBC (0.0-0.2); Platelet Count 388 X10*3/uL (160-400); Red Blood Count 4.06 X10*6/uL (4.60-5.80); White Blood Count 8.5 X10*3/uL (4.8-10.8)
[2025-03-17 11:31] LABS: Iron 177 mcg/dL (45-160); Percent Iron Saturation 69 % (15-50); Total Iron Binding Capacity 258 mcg/dL (228-428); Unsaturated Iron Binding 81 ug/dL
== END 2025-03-17 09:41 | disposition home or self-care (01) ==
LOC: HO.LAB 09:40
PROVIDERS: PCP Nurse Practitioner Family; Visit Provider Nurse Practitioner Family
DX: D50.0 Iron deficiency anemia secondary to blood loss (chronic) (principal); F11.20 Opioid dependence, uncomplicated
CPT/HCPCS: 82306; 83540; 85027

== ENCOUNTER 2025-03-19 12:19 | Outpatient (REF) | payer OTHER, SELFPAY ==
[2025-03-19 13:52] LABS: Cannabinoid Screen Urine POSITIVE (Not Detect)
--- OUTSIDE RECORDS SUMMARY | 2025-03-19 14:35 | XMS_ITS | Clinical Summary ---
Author Organization [facility] Address [address] [place] [address] Care Team Providers Care Body And Fender Mechanic Name Role Phone Kisha Navarro Primary Care Provider [phone] Allergies No known active allergies Medications ferrous [...] needle, disp, 27 gauge (BD Regular Bevel [place]) 27 gauge x 1/2 needleIndicatio ns:Hidradenitis suppurativa [...] mg twice daily was held 3 days MEDICAL INSURANCE CLAIMS SPECIALIST in preparation for his surgery. Patient is [...] mg twice daily was held 3 days MEDICAL INSURANCE CLAIMS SPECIALIST in preparation for his surgery. Patient is [...] mg twice daily was held 3 days MEDICAL INSURANCE CLAIMS SPECIALIST in preparation for his surgery. Patient is [...] course of abx. Eliquis held 3 days MEDICAL INSURANCE CLAIMS SPECIALIST. Admitted to plastic surgery team with medicine [...] course of abx. Eliquis held 3 days MEDICAL INSURANCE CLAIMS SPECIALIST. Admitted to plastic surgery team with medicine [...] course of abx. Mary held 3 days MEDICAL INSURANCE CLAIMS SPECIALIST. 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 He speaks decent tristanian, but his ability to convey his medical [...] him and his parents. He speaks decent tristanian, but his ability to convey his medical [...] Type Department Care Team Description 01/25/2025 Refill [facility] [address] [place] [address] Core Filer: Cheko Horvath MD 12/23/2024 Telephone [facility] 4th Floor [address], [place] [address] Core Filer: Drea Langley Prior Authorization from Last 3 [...] Description 06/10/2025 3:45 PM EST Office Visit [facility] 4th Floor [address], [place] [phone] Core Filer: Glenys Zee MD [address] [place] [address] Health Maintenance Due Date Last Done Comments [...] Screening Completed 07/12/2022 Procedures * Due to [place] state law, this organization might not be sharing negative HIV tests. Procedure Name Priority Date/Time Associated Diagnosis Comments BASIC METABOLIC PANEL Routine 05/16/2024 4:45 AM EST HEPATITIS C ANTIBODY W/REFLEX TO HCV RNA, QUANTITATIVE PCR Routine 07/12/2022 3:49 PM EST Hidradenitis suppurativa from Last 3 Months or Most Recently Relevant to Health Maintenance Results * Due to [place] state law, this organization might not be sharing negative HIV tests. * (ABNORMAL) Basic metabolic panel (05/16/2024 4:45 AM EST) NA 141 135 - 145 mmol/L 05/16/2024 5:22 AM EST [email or web address] K 4.5 3.5 - 5.3 mmol/L 05/16/2024 5:22 AM EST [email or web address] Cl 104 98 - 107 mmol/L 05/16/2024 5:22 AM EST [email or web address] CO2 25 22 - 32 mmol/L 05/16/2024 5:22 AM EST [facility] BUN 13 7 - 23 mg/dL 05/16/2024 5:22 AM EST [email or web address] Creatinine 0.77 0.60 - 1.30 mg/dL 05/16/2024 5:22 AM EST [email or web address] Glucose 119(H) 65 - 99 mg/dL 05/16/2024 5:22 AM EST [facility] Calcium 8.4(L) 8.6 - 10.5 mg/dL 05/16/2024 5:22 AM EST [email or web address] Anion Gap 12 5 - 15 05/16/2024 5:22 AM EST [email or web address] eGFR >90 >=60 mL/min/1. 73m2 05/16/2024 5:22 AM EST [email or web address] Comment:The estimated glomer ular [...] Gill MD LAB BLOOD ORDERABLES Final Result [facility] [address] [place] [address], * Hepatitis C Antibody w/Reflex to HCV RNA, Quantitative PCR (07/12/2022 3:49 PM EST) Hepatitis C Antibody NON-REACT JOSELITO NON-REACT JOSELITO 07/13/2022 7:25 AM EST [facility] Signal To Cut-Off 0.05 <1.00 07/13/2022 7:25 AM EST [facility] Comment: HCV antibody was non-reactive. There is no laboratory evidence of HCV infection. In most cases, no further action is required. However, if recent HCV exposure is suspected, a test for HCV RNA (test code 49526) is suggested. For additional information please refer to http://education.Munchery/faq/RJW88a4 (This link is being provided for informational/ educational purposes only.) Blood Structure of peripheral vein / Unknown Venipuncture / Unknown 07/12/2022 3:49 PM EST 07/12/2022 3:49 PM EST Narrative [facility] - 07/13/2022 7:25 AM EST [facility] Received Date: Glenys Thibodeaux MD LAB BLOOD ORDERABLES Final R esult KAREN KOENIG [address] [place] [address] [address]rd Floor, [place] [address], [place] [phone] [facility] [address], [place] [address], [place] [phone] from Last 3 Months or Most Recently Relevant to Health Maintenance Insurance Advance Directives Documents on File Type Date Recorded Patient Stress Test Technician Expl anation Health Care Proxy 05/15/2024 12:17 [...] Communication Olivia sylvia Mother Health Care Agent [email or web address] Elaineio Brother [facility] Care Agent Care Teams Body And Fender Mechanic Relationship Specialty Start Date End Date Kisha Navarro [address] [place] [address] PCP - General 03/25/[address] [address] Academic Primary Care Attending 05/14/22 Dr Marylou Vargas [address] [place] [address] Neurology 07/31/22 Dr Waldo Cortez [address] [place] [address] Referring Physician 07/31/22
== END 2025-03-19 12:20 | disposition home or self-care (01) ==
LOC: HO.LAB 12:19
PROVIDERS: PCP Nurse Practitioner Family; Visit Provider Nurse Practitioner Family
DX: D50.0 Iron deficiency anemia secondary to blood loss (chronic) (principal); F11.20 Opioid dependence, uncomplicated
CPT/HCPCS: 80307

== ENCOUNTER 2025-03-29 10:38 | Outpatient (AMB) | payer OTHER, SELFPAY ==
--- NOTE | 2025-03-29 10:39 | A.OFFPC_ITS ---
Vital Signs 03/29/25 10:45 BMI Reason not done Patient refused/unable BP 122/72 Blood Pressure Location Lt brachial Position Sitting Respiration 12 Pulse 78 Pulse Source Pulse Oximeter Temp 97.4 F Temp Source Oral Pulse Oximetry (%) 98 Oxygen Delivery Method Room Air Intake Visit Reasons: schedule 30 min appt w/ me for complex fu Intake Note: Routine follow up. Patient needs refill on oxycodone and has been without them for 2 months. Patient also needs iron med refill. Kiln Packer Required: No Allergies No Known Allergies Allergy (Verified 03/29/25 10:40) Medication List - Last Reconciled 03/29/25 by Kisha Solano, [employer] acetaminophen 1,000 mg PO Q8H PRN apixaban (Eliquis) 5 mg PO BID ascorbic acid (vitamin C) (Vitamin C) 500 mg PO DAILY baclofen 20 mg PO QID canakinumab (PF) (Ilaris (PF)) 150 mg subcut Q28D cholecalciferol (vitamin D3) (Vitamin D3) 25 mcg PO DAILY clindamycin HCl (Cleocin HCl) 300 mg PO BID docusate sodium 100 mg PO BID duloxetine 30 mg PO BID ferrous sulfate 325 mg PO Q OTHER DAY folic acid 1 mg PO DAILY gabapentin 400 mg PO TID 30 days hydroxyurea 500 mg PO DAILY [multivitamin 1 tab PO DAILY] nystatin 1 appl topical BID-TID pantoprazole 40 mg PO DAILY@0630 rifampin 300 mg PO Q12H tizanidine 4 mg PO Q8H PRN Tobacco use date assessed: 03/29/25 Dental Screening Dental Screen Date: 03/29/25 Did you have a dental visit in the last 12 months?: Yes Did you have a dental problem in the last 6 months where you did not have access to dental care?: No Was dental information given to patient?: Patient has dentist HPI HPI Comments History of Present Illness Details 39 y/o M with CVA with R hemiparesis (20 21) now on Eliquis, hidradenitis suppurativa, opiate dependence, Iron def anemia, Benign-appearing right renal cysts, ANNA, GERD, current smoker, marijuana use, HLD, stage 4 pressure ulcer Social: Living at home w/ Mom and Brother; Wheelchair dependent Specialist: [facility] in [facility] Health Maintenance: Tdap reports UTD Flu shot 01/2024 History of Present Illness The patient is a 39-year-old male presenting for a follow-up visit to discuss pain management for a chronic wound. Chronic Wound: - The patient has a chronic wound on his buttock managed by the [facility], with check-ups every two weeks. - The wound had been improving, but the patient reports approximately three new open areas have developed since his last wound clinic visit on March 08. - A nurse navigator named Chely is [facility] susan in care coordination, and visiting nurse services and occupational therapy have been arranged. - He has an upcoming dermatology appoint ment on the of the month for the new lesions. - The patient has experienced difficulty obtaining dressing supplies due to money owed to [facility]. - A new chair cushion has been provided, but a special mattress that was ordered has not yet been received. - The patient missed scheduling his next two-week follow-up appointment with the wound center. Chronic Pain: - The patient experiences pain in his ba ckside associated with his chronic wound. - He was previously prescribed Oxycodone post-discharge, but the goal was to taper him off long-term opiates. - He has been without Oxycodone for karel ral weeks. - He has been using ibuprofen and Tyleno l for pain management. Iron Deficiency: - The patient requested a refill for his iron medication. - His iron levels have recently improved , leading to a discussion about decreasing the frequency of the supplement. Past Medical History - Chronic wound on the buttock managed b y an external wound clinic. - History of opioid therapy with oxycodo ne, which has been tapered and discontinued. - History of iron deficiency, with recen t improvement in iron levels. Review of Systems - Integumentary: Reports three new open areas on his buttocks. - Musculoskeletal: Reports pain in the b ackside. - Respiratory: Denies any issues with br eathing. Physical Exam Awake, Alert, NAD, chronically ill appearing, sitting in wheelchair RRR LS CTAB Right hemiparesis upper and lower ext, R facial droop, slow slurred speech, word finding difficulties PP normal bilat, no edema Skin of buttocks with large post-surgical changes to both buttocks and thigh of R leg; pressure ulcer L buttocks- dressing not removed; stage 2 pressure ulcer R buttocks limited to skin break down. (previous visit,not examined today) Mood and affect appropriate, accompanied by mom Results Labs from 03/17/2025 RBC 4.06, MCV 105.7, MCV 36, MPV 9, iron 177, TIBC 258, % saturation 69, unsaturated iron binding 81, vitamin-D 35, U tox positive for marijuana Medical Decision Making The patient is a 39-year-old male with a complex chronic wound on his buttock, presenting for follow-up on pain management. He has been successfully tapered off oxycodone for several weeks, and given the initial goal was to avoid long- term opiate use, it will not be restarted. For ongoing pain management, a long-acting, 24-hour NSAID will be prescribed to provide consistent pain relief, supplemented by PRN Tylenol. His iron levels have improved, so his iron supplement will be refilled but the frequency reduced to every other day. The development of new open areas is concerning, and coordination with the [facility] is crucial. I tried to call them 4 times during this visit and was sent to [facility], so i was not able to get a copy of the 03/08 note or coordinate f/u. An effort will be made to assist the patient in obtaining necessary dressing supplies and equipment like a special mattress by coordinating with both the wound clinic and the nurse Chely ibarra, to ensure he receives the necessary support to promote healing and prevent hospitalization. Plan 1. Chronic Wound - Orders for wound dressings will be sen t to the wound care center to assist the patient with obtaining supplies. - Will follow up with the nurse Chely sheikh, to help coordinate care, including scheduling a follow-up appointment with the wound care center and obtaining durable medical equipment such as a special mattress. - Patient advised to schedule his next a ppointment with the wound care center, as he is due for a visit. - Patient will attend a scheduled dermat ology appointment on the for the new lesions. - Visiting nurse and occupational therap y services will continue. 2. Chronic Pain - Oxycodone will not be restarted as the patient has been successfully tapered off and the goal is to avoid long-term opiate use. - A long-acting, 24-hour anti-inflammato ry medication will be prescribed for once-daily use to manage pain, meloxicam 15mg - The patient may use Tylenol as needed for breakthrough pain. 3. Iron Deficiency - An iron supplement prescription will b e sent to the pharmacy. - Due to improved iron levels, the gerardo nt is instructed to take the supplement every other day. Patient Instructions - [facility]up appointment, as you are due for your aexsh-uyk-brje visit. - I will speak with your nurse navigator , Chely, to help get your wound care supplies and follow-up appointments set up to keep you healthy and out of the hospital. - We are not going to restart you on oxy codone. - I will prescribe a new, long-acting an ti-inflammatory medication for your pain. This is taken once a day because it works for 24 hours. You can take it every day to stay ahead of the pain. - You can use Tylenol if you have pain i n between doses of the new medication. - I am sending a refill for your iron swenson pplement. Because your iron levels look better, please take this only every other day. - Your prescriptions will be sent to the [facility] on [address] in [place]. Consent Patient was informed and verbally consented to the use of an ambient scribe for clinic note documentation during this visit. Total time spent caring for the patient today was 45 minutes. This includes time spent before the visit reviewing the chart, time spent during the visit, and time spent after the visit on documentation, reviewing laboratory results, diagnostic imaging, medications, performing a medically necessary evaluation, counseling on diagnoses, care coordination, ordering appropriate tests, ordering appropriate medications, review of tests performed by other providers, reporting test results with the patient, communication with other healthcare providers. [facility] Medical History (Updated 02/25/25 @ 12:43 by Kisha Solano, [facility] Anxiety and depression CVA (cerebral vascular accident) GERD (gastroesophageal reflux disease) Hidradenitis Hidradenitis suppurativa Hypertension Imbalance Neuropathy Opiate abuse, continuous Surgical History No pertinent past surgical history Family History Mother Mental health disorder Asthma Thyroid disease Cervical cancer Maternal Grandmother Mental health disorder Asthma Diabetes Cardiovascular disease Thyroid disease Father Substance abuse Hypertension High cholesterol Cardiovascular disease Clotting disorder Maternal Grandfather Diabetes Cardiovascular disease Paternal Grandfather Clotting disorder Social History Household Members: Family Both parents involved: No Caregiver staying overnight: Yes (mom) Housing: Apartment Are you a primary care management associate to a significant other at home: No Do you presently have visiting nurse or other home services: Yes 75 years or older and lives alone: No Alcohol intake: never Patient Tobacco Use Status: Never used Tobacco Cigarettes Per Day: 4 e-Cigarette/Vaping Use: Never Used Second Hand Smoke Exposure: No Substance Use Type: Marijuana Advance Directives Date on File: 02/19/23 service: No Current occupational status: disabled Cognitive needs: No Hearing needs: No Vision needs: No Questionnaire Thrive Questionnaire Date Thrive assessed: 02/24/25 I am a: Parent/Caregiver What is your living situation today?: I have a steady place to live Within the past 12 months, did the food you bought not last and you didn't have the money to get more?: Often true Within the past 12 months, did you worry whether your food would run out before you got money to buy more?: I choose not to answer this question Do you have trouble paying for medicines?: I choose not to answer this question Do you have trouble getting transportation to medical appointments?: I choose not to answer this question Do you have trouble paying your heating and electricity bill?: No Do you have trouble taking care of your child, family member or friend?: No Do you have trouble with day-to-day activities such as bathing, preparing meals, shopping, managing finances, etc.?: I choose not to answer this question Are you currently unemployed and looking for a job?: I choose not to answer this question Are you interested in more education?: I choose not to answer this question Please select the resources that you would like help with: None Currently or been in a relationship where the following occur: I choose not to answer THRIVE Score: 1 ANNA-7 AMB Questionnaire ANNA-7 Date ANNA - 7 assessed: 02/24/25 Source: Developed by Drs. Bismark Gordon, Carmen Hardy, See Case and colleagues, with an educational sandra from [employer]. Physical exam (Primary Care) Vital Signs: Last Vital Signs Temp 97.4 F 03/29/25 10:45 Pulse 78 03/29/25 10:45 Resp 12 03/29/25 10:45 BP 122/72 03/29/25 10:45 Pulse Ox 98 03/29/25 10:45 Oxygen Delivery Method Room Air 03/29/25 10:45 Tobacco/Smoking Status: Tobacco use Status Tobacco use date assessed 03/29/25 03/29/25 10:46 Patient Tobacco Use Status Never used Tobacco 03/29/25 10:46 e-Cigarette/Vaping Use Never Used 03/29/25 10:46 Thrive Assessment: Date of Thrive Assessment Date Thrive assessed 02/24/25 03/29/25 10:46 Currently or been in a relationship where the following occur: I choose not to answer Coding Level of Care Code Est Pt Level 5 (33999) Complex EM visit Add On G2211 Diagnoses Pressure injury of skin of left buttock, unspecified injury stage L89.329 Laterality: left Pressure injury stage: unspecified pressure injury stage Chronic pain syndrome G89.4 Chronic pain type: chronic pain syndrome Iron deficiency anemia due to chronic blood loss D50.0 Iron deficiency anemia type: chronic blood loss Assessment & Plan Assessment & Plan (1) Bed sore on buttock: Code(s): L89.309 - Pressure ulcer of unspecified buttock, unspecified stage Category: Medical Qualifiers: Laterality: left Pressure injury stage: unspecified pressure injury stage Qualified Code(s): L89.329 - Pressure ulcer of left buttock, unspecified stage (2) Chronic pain: Code(s): G89.29 - Other chronic pain Category: Medical Qualifiers: Chronic pain type: chronic pain syndrome Qualified Code(s): G89.4 - Chronic pain syndrome (3) Iron deficiency anemia: Code(s): D50.9 - Iron deficiency anemia, unspecified Category: Medical Qualifiers: Iron deficiency anemia type: chronic blood loss Qualified Code(s): D50.0 - Iron deficiency anemia secondary to blood loss (chronic) Plan . Medications: New meloxicam 15 mg PO DAILY 90 tabs 2RF Changed From ferrous sulfate 325 mg PO Q OTHER DAY 90 tabs 0RF To ferrous sulfate 325 mg PO Q OTHER DAY 45 tabs 2RF 90 days
[2025-03-29 10:45] VITALS: BP 122/72; PULSE 78; RESP 12; TEMP 36.3; O2SAT 98
== END 2025-03-29 11:02 | disposition home or self-care (01) ==
LOC: HO.HMCFM 10:39
PROVIDERS: PCP Nurse Practitioner Family; Visit Provider Nurse Practitioner Family
DX: G89.4 Chronic pain syndrome (principal); D50.0 Iron deficiency anemia secondary to blood loss (chronic); L89.329 Pressure ulcer of left buttock, unspecified stage

== ENCOUNTER → 2025-03-29 10:38 | Outpatient (BNVA) | payer OTHER, SELFPAY | PROVIDERS: PCP Nurse Practitioner Family; Visit Provider Nurse Practitioner Family | DX: G89.4 Chronic pain syndrome (principal); L89.329 Pressure ulcer of left buttock, unspecified stage; D50.0 Iron deficiency anemia secondary to blood loss (chronic) | CPT/HCPCS: 99212 ==